=== PATIENT | female | born 1965 | race Caucasian/White ===

== ENCOUNTER 2016-07-15 00:39 | Emergency (ER) | payer OTHER ==
[2016-07-15 00:53] VITALS: TEMP 98.3; BMI 28.3
[2016-07-15 01:08] LABS: BASOPHIL 0.5 % (0-2.0); EOSINOPHIL 1.4 % (0-4.5); MEAN CELL VOLUME 87.8 fl (80-96); MEAN PLT VOLUME 7.3 fl (7.5-11.1); NEUTROPHILS 69.4 % (42.8-82.8); PLATELET COUNT 258 K/MM3 (134-434); RDW 12.7 % (11.6-15.6); WHITE BLOOD COUNT 13.2 K/mm3 (4.0-10.0)
--- NOTE | 2016-07-15 01:27 | PDOC ---
History of Present Illness - General History Source: Patient Exam Limitations: No Limitations - History of Present Illness Initial Comments: 07/15/16 01:35 The patient is a 51 year old female with a pertinent PMH of CAD s/p cardiac stent placement(12/2015). s/p pacemaker (02/2012), MS (05/2011), CHF, HTN, HLD, DM , COPD, RLS, Kidney Stent Placement, Renal Insufficiency, Kidney Stones, Stress Incontinence, Fibromyalgia, Anxiety, Depression, Chronic Low Back, Lumbar Herniated Disc. who presents to the ED today complaining of chest pain, lightheadedness and SOB that began this morning. The patient reports the pain is similar to her previous MS in the past. She notes the pain radiates to her left arm, jaw and head and that the pain began this morning as dull but is now sharp. The patient reports numbness in her left arm and numbness and tingling in her toes. She also reports that she had two syncopal episodes today, the first was witnessed by her son and daughter and the second she was alone. She reports losing consciousness during both episodes for an unknown duration. She is unsure of any head trauma. The patient notes that she is SOB at rest. She also notes her vision being blurry and reports that shes been getting confused a lot recently. She states the last time she ate was anywhere from 3 days to 1 week ago. This is secondary to her anxiety and depression as she states she hasn 't taken her medications recently. She denies diaphoresis. Denies: vomiting, abdominal pain, fever, chills PSHx of: Cardiac Stent, AICD, C-sections, Hemorrhoidectomy, R- Fallopian Tube Removal, endoscopy, colonoscopy. PCP: Dr. Lamar Rodriguez Software Implementation Specialist: Dr. Mia Bell <Sandra Nguyen - Last Filed: 07/15/16 01:47> <Ramila Santamaria - Last Filed: 07/15/16 03:04> - General History Source: Patient <Samuel Cisneros - Last Filed: 07/15/16 04:54> - General Chief Complaint: Chest Pain Stated Complaint: CHEST PAIN Time Seen by Provider: 07/15/16 01:03 Past History <Sandra Nguyen - Last Filed: 07/15/16 01:47> <Ramila Santamaria - Last Filed: 07/15/16 03:04> - Past Medical History Anemia: No Asthma: No Cancer: No Cardiac Disorders: Yes (cardiac stent 2010/pacemaker02/2012, MS) CVA: No COPD: Yes CHF: Yes Dementia: No Diabetes: No GI Disorders: Yes Disorders: Yes (kidney stents, kidney stones, stress incontinence, KIDNEY FAILURE) HTN: Yes Hypercholesterolemia: Yes Liver Disease: No Psychiatric Problems: Yes (anxiety, anorexia, DEPRESSION.) Suicide Attempt (Hx): No Seizures: No Thyroid Disease: No - Surgical History Abdominal Surgery: Yes Appendectomy: No Cardiac Surgery: Yes (cardiac cath, stent, ppm/aicd) Cholecystectomy: No Lung Surgery: No Neurologic Surgery: No Orthopedic Surgery: No - Family Disease History Family Disease History: Heart Disease: Father - Immunization History Td Vaccination: Yes TDAP Vaccination: Yes Immunization Up to Date: (no flu vaccine) - Psycho/Social/Smoking Cessation Hx Anxiety: No Suicidal Ideation: No Smoking Status: No Smoking History: Never smoked Years of Tobacco Use: 10 Have you smoked in the past 12 months: No Number of Cigarettes Smoked Daily: 3 If you are a former smoker, when did you quit?: 11/24/15 Cigars Per Day: 0 Information on smoking cessation initiated: No 'Breaking Loose' booklet given: 12/15/14 Hx Alcohol Use: No Drug/Substance Use Hx: No Substance Use Type: None Hx Substance Use Treatment: No <Samuel Cisneros - Last Filed: 07/15/16 04:54> - Past Medical History Allergies/Adverse Reactions: Allergies Allergy/AdvReac Type Severity Reaction Status Date / Time No Known Allergies Allergy Verified 07/15/16 00:51 Home Medications: Ambulatory Orders Alprazolam [Xanax] 1 mg PO BID 04/15/16 Aspirin [ASA -] 81 mg PO DAILY 04/15/16 Atorvastatin Ca [Lipitor] 40 mg PO HS 04/15/16 Cholecalciferol (Vitamin D3) [Vitamin D -] 400 unit PO DAILY 04/15/16 Escitalopram Oxalate [Lexapro -] 20 mg PO DAILY 04/15/16 Gabapentin 800 mg PO TID 04/15/16 Topiramate 50 mg PO BID 04/15/16 Carvedilol [Coreg -] 3.125 mg PO BID #60 tablet 04/22/16 Pantoprazole Sodium [Protonix -] 40 mg PO BID #60 tablet.ec 04/22/16 Oxycodone HCl/Acetaminophen [Percocet 5-325 mg Tablet] 1 tab PO Q6H 05/21/16 Zolpidem Tartrate [Ambien] 10 mg PO HS 05/21/16 Lisinopril [Prinivil] 2.5 mg PO DAILY@1200 #30 tablet 05/31/16 Spironolactone [Aldactone -] 25 mg PO HS #30 tablet 05/31/16 Review of Systems - Review of Systems Able to Perform ROS?: Yes Comments:: 07/15/16 01:35 CONSTITUTIONAL: +Decreased PO intake. Absent: fever, chills, diaphoresis, generalized weakness, malaise, HEENT: +Jaw pain, head pain, blurry vision. Absent: rhinorrhea, nasal congestion, throat pain, throat swelling, difficulty swallowing, mouth swelling, ear pain, eye pain CARDIOVASCULAR: +Chest pain, lightheadedness, syncope. Absent: palpitations, irregular heart rate, peripheral edema RESPIRATORY: +shortness of breath Absent: cough, dyspnea with exertion, orthopnea, wheezing, stridor, hemoptysis GASTROINTESTINAL: Absent: nausea, vomiting, abdominal pain, abdominal distension, diarrhea, constipation, melena, hematochezia GENITOURINARY: Absent: dysuria, frequency, urgency, hesitancy, hematuria, flank pain, genital pain MUSCULOSKELETAL: +back pain, left arm pain. Absent: joint swelling SKIN: Absent: rash, itching, pallor NEUROLOGIC: +dizziness. numbness and tingling in her toes, numbness in her left arm. Absent : focal weakness, unsteady gait, seizure, mental status changes, bladder or bowel incontinence PSYCHIATRIC: +anxiety, depression. Absent: suicidal or homicidal ideation, hallucinations. <Sandra Nguyen - Last Filed: 07/15/16 01:47> *Physical Exam - Vital Signs Last Vital Signs Temp Pulse Resp BP Pulse Ox 98.3 F 65 20 119/75 100 07/15/16 00:51 07/15/16 00:51 07/15/16 00:51 07/15/16 00:51 07/15/16 00:51 <Sandra Nguyen - Last Filed: 07/15/16 01:47> - Vital Signs Last Vital Signs Temp Pulse Resp BP Pulse Ox 98.3 F 65 20 119/75 100 07/15/16 00:51 07/15/16 00:51 07/15/16 00:51 07/15/16 00:51 07/15/16 00:51 - Physical Exam Comments: 07/15/16 03:04 GENERAL: Well developed, well nourished. Awake and alert. No acute distress. HEENT: Normocephalic, atraumatic. PERRLA, EOMI. No conjunctival pallor. Sclera are non- icteric. Moist mucous membranes. Oropharynx is clear. NECK: Supple. Full ROM. No JVD. Carotid pulses 2+ and symmetric, without bruits. No thyromegaly. No lymphadenopathy. CARDIOVASCULAR: Regular rate and rhythm. No murmurs, rubs, or gallops. Distal pulses are 2+ and symmetric. PULMONARY: No evidence of respiratory distress. Lungs clear to auscultation bilaterally. No wheezing, rales or rhonchi. ABDOMINAL: Soft. Non-tender. Non-distended. No rebound or guarding. No organomegaly. Normoactive bowel sounds. MUSCULOSKELETAL Normal range of motion at all joints. No bony deformities or tenderness. No CVA tenderness. EXTREMITIES: No cyanosis. No clubbing. No edema. No calf tenderness. SKIN: Warm and dry. Normal capillary refill. No rashes. No jaundice. NEUROLOGICAL: Alert, awake, appropriate. Cranial nerves 2-12 intact. Moving all extremities. No focal neurological deficits. PSYCHIATRIC: Cooperative. Good eye contact. Appropriate mood and affect. <Ramila Santamaria - Last Filed: 07/15/16 03:04> - Vital Signs Last Vital Signs Temp Pulse Resp BP Pulse Ox 98.3 F 65 20 119/75 100 07/15/16 00:51 07/15/16 00:51 07/15/16 00:51 07/15/16 00:51 07/15/16 00:51 <Samuel Cisneros - Last Filed: 07/15/16 04:54> Heart Score/ECG Review - ECG Impressions Comment:: 07/15/16 01:46 NSR @ 65 bpm. Anteroseptal infarct, age undetermined. Abnormal ECG <Sandra Nguyen - Last Filed: 07/15/16 01:47> - History History: Moderately suspicious - Electrocardiogram EKG: Non specific repolarization disturbance - Age Age: 45-65 - Risk Factors Risk Factors Heart Score: Yes Hx Hypercholesterolemia, Yes Positive family hx of cardiac disease Based on the list above the patient has:: >/=3 risk factors or Hx atherosclerotic disease - Troponin Troponin: </= normal limit - Score Heart Score - Total: 5 <Samuel Cisneros - Last Filed: 07/15/16 04:54> ED Treatment Course - LABORATORY CBC & Chemistry Diagram: 07/15/16 01:00 07/15/16 01:00 - ADDITIONAL ORDERS Additional order review: 07/15/16 01:00 RBC 4.73 D MCV 87.8 MCHC 33.0 RDW 12.7 MPV 7.3 L Neutrophils % 69.4 D Lymphocytes % 22.5 D Monocytes % 6.2 Eosinophils % 1.4 Basophils % 0.5 <LindenaftabSandra - Last Filed: 07/15/16 01:47> - LABORATORY CBC & Chemistry Diagram: 07/15/16 01:00 07/15/16 01:00 - ADDITIONAL ORDERS Additional order review: Laboratory Results 07/15/16 07/15/16 01:00 01:00 INR 1.18 H Sodium 137 Potassium 3.7 Chloride 104 Carbon Dioxide 21 Anion Gap 12 BUN 12 D Creatinine 0.8 Creat Clearance w eGFR > 60 Random Glucose 182 H D Calcium 8.7 Total Bilirubin 0.3 AST 6 L D ALT 15 D Alkaline Phosphatase 130 H D Creatine Kinase 38 Troponin I < 0.02 Total Protein 7.7 Albumin 4.1 07/15/16 01:00 RBC 4.73 D MCV 87.8 MCHC 33.0 RDW 12.7 MPV 7.3 L Neutrophils % 69.4 D Lymphocytes % 22.5 D Monocytes % 6.2 Eosinophils % 1.4 Basophils % 0.5 - Medications Given in the ED: ED Medications Discontinued Medications Generic Name Dose Route Start Last Admin Trade Name Freq PRN Reason Stop Dose Admin Morphine Sulfate 2 mg 07/15/16 01:29 07/15/16 02:34 Morphine Injection - IVPUSH 07/15/16 01:30 2 mg ONCE ONE Administration Ondansetron HCl 4 mg 07/15/16 01:29 07/15/16 02:34 Zofran Injection IVPUSH 07/15/16 01:30 4 mg ONCE STA Administration <Ramila Santamaria - Last Filed: 07/15/16 03:04> - LABORATORY CBC & Chemistry Diagram: 07/15/16 01:00 07/15/16 01:00 - ADDITIONAL ORDERS Additional order review: 07/15/16 01:00 RBC 4.73 D MCV 87.8 MCHC 33.0 RDW 12.7 MPV 7.3 L Neutrophils % 69.4 D Lymphocytes % 22.5 D Monocytes % 6.2 Eosinophils % 1.4 Basophils % 0.5 <Samuel Cisneros - Last Filed: 07/15/16 04:54> Medical Decision Making - Medical Decision Making 07/15/16 03:07 Dr. Cisneros: The scribe's documentation has been prepared under my direction and personally reviewed by me in its entirery. I confirm that the note above accurately reflects all work, treatment, procedures, and medical decision making performed by me. <Samuel Cisneros - Last Filed: 07/15/16 04:54> *DC/Admit/Observation/Transfer - Attestations Scribe Attestion: 07/15/16 01:47 Documentation prepared by Sandra Nguyen, acting as medical safety director for Samuel Cisneros MD/DO. <Sandra Nguyen - Last Filed: 07/15/16 01:47> <Ramila Santamaria - Last Filed: 07/15/16 03:04> - Discharge Dispostion Admit: No <Samuel Cisneros - Last Filed: 07/15/16 04:54> Diagnosis at time of Disposition: coronary artery disease, Chest pain - Discharge Dispostion Disposition: HOME Condition at time of disposition: Stable - Referrals Referrals: Lamar Rodriguez MD [Primary Care Provider] - - Patient Instructions Printed Discharge Instructions: DI for Chest Pain Additional Instructions: Please follow up with your doctor as soon as possible
[2016-07-15] MEDS ORDERED: ONDANSETRON 4 MG/2 ML VIAL IVPUSH STA (01:29)
[2016-07-15] MEDS ORDERED: morphine CARPU-JECT 2 MG/1 ML DISP.SYRIN IVPUSH ONE (01:29)
[2016-07-15 01:33] LABS: INR 1.18 (0.82-1.09)
[2016-07-15 01:43] LABS: ALBUMIN 4.1 g/dl (3.4-5.0); ANION GAP 12 (8-16); BILIRUBIN,TOTAL 0.3 mg/dL (0.2-1.0); CALCIUM 8.7 mg/dL (8.5-10.1); CO2 21 mmol/L (21-32); CREATININE 0.8 mg/dL (0.55-1.02); GLUCOSE,RANDOM 182 mg/dL (74-106); SGOT/AST 6 U/L (15-37); SGPT/ALT 15 U/L (12-78); TOT PROT 7.7 g/dl (6.4-8.2)
[2016-07-15 01:45] LABS: ALK PHOS 130 U/L (45-117); TROPONIN I < 0.02 ng/ml (0.00-0.05)
[2016-07-15] MEDS ORDERED: morphine CARPU-JECT 2 MG/1 ML DISP.SYRIN ONE (01:53)
[2016-07-15] MEDS ORDERED: ONDANSETRON 4 MG/2 ML VIAL ONE (01:54)
[2016-07-15] MEDS ORDERED: ALPRAZolam 0.25 MG TABLET PO ONE (03:04)
[2016-07-15] MEDS ORDERED: ALPRAZolam 0.25 MG TABLET ONE (03:12)
[2016-07-15 04:49] VITALS: BP 118/87; PULSE 68
--- NOTE | 2016-07-15 16:35 | EKG ---
Test Reason : Blood Pressure : / mmHG Vent. Rate : 065 BPM Atrial Rate : 065 BPM P-R Int : 196 ms QRS Dur : 086 ms QT Int : 370 ms P-R-T Axes : 032 008 060 degrees QTc Int : 384 ms NORMAL SINUS RHYTHM ANTEROSEPTAL INFARCT (CITED ON OR BEFORE 16-OCT-2014) ABNORMAL ECG WHEN COMPARED WITH ECG OF 21-MAY-2016 08:04, NO SIGNIFICANT CHANGE WAS FOUND Confirmed by NICHOL CARNEY, MOLLY ([id number]) on 07/15/2016 4:34:46 PM Referred By: Confirmed By:MOLLY GANDARA MD
== END 2016-07-15 04:57 | disposition home or self-care (01) ==
LOC: JER 00:39 → UNDOADMIN 03:25 → JERBED 03:25 → JER 04:57
PROC: 3E033NZ Introduction of Analgesics, Hypnotics, Sedatives into Peripheral Vein, Percutaneous Approach (ICD-10-PCS; principal; 2016-07-15)
PROC: 3E033GC Introduction of Other Therapeutic Substance into Peripheral Vein, Percutaneous Approach (ICD-10-PCS; 2016-07-15)
DX: I25.10 Atherosclerotic heart disease of native coronary artery without angina pectoris (principal); I50.9 Heart failure, unspecified; I25.2 Old myocardial infarction; I10 Essential (primary) hypertension; Z95.5 Presence of coronary angioplasty implant and graft; E78.00 Pure hypercholesterolemia, unspecified; F41.8 Other specified anxiety disorders; Z95.810 Presence of automatic (implantable) cardiac defibrillator
CPT/HCPCS: 36415; 71010-TC; 80053; 82550; 84484; 85025; 85610; 93005; 93010; 99283-25

== ENCOUNTER 2016-12-13 16:49 | Observation (INO) | payer OTHER ==
--- NOTE | 2016-12-13 16:56 | PDOC ---
Rapid Medical Evaluation Chief Complaint: Chest Pain Time Seen by Provider: 12/13/16 16:55 Medical Evaluation: Allergies Allergy/AdvReac Type Severity Reaction Status Date / Time No Known Allergies Allergy Verified 12/13/16 16:55 I have performed a brief in-person evaluation of this patient. The patient presents with a chief complaint of:chest pain, shortness of breath, wheezing Pertinent physical exam findings:anxious I have ordered the following:EKG The patient will proceed to the ED for further evaluation. 12/13/16 16:55
[2016-12-13 16:58] VITALS: BMI 29.2
[2016-12-13] MEDS ORDERED: ASPIRIN 81 MG CHEWABLE TABLETS PO ONE (17:58)
[2016-12-13 18:05] LABS: ALBUMIN 3.9 g/dl (3.4-5.0); ANION GAP 14 (8-16); BILIRUBIN,TOTAL 0.6 mg/dL (0.2-1.0); CALCIUM 9.1 mg/dL (8.5-10.1); CO2 23 mmol/L (21-32); CREATININE 0.8 mg/dL (0.55-1.02); GLUCOSE,RANDOM 185 mg/dL (74-106); SGOT/AST 16 U/L (15-37); SGPT/ALT 25 U/L (12-78)
[2016-12-13] MEDS ORDERED: ASPIRIN 81 MG CHEWABLE TABLETS ONE (18:06)
[2016-12-13 18:07] LABS: ALK PHOS 129 U/L (45-117); TROPONIN I < 0.02 ng/ml (0.00-0.05)
--- NOTE | 2016-12-13 18:11 | PDOC ---
History of Present Illness <SheltonAgata - Last Filed: 12/13/16 18:32> <Kenzie Elizondo - Last Filed: 12/13/16 20:29> - General Chief Complaint: Chest Pain Stated Complaint: CHEST PAIN Time Seen by Provider: 12/13/16 16:55 - History of Present Illness Initial Comments: 12/13/16 18:32 Patient is a 51 year old female with significant medical hx of NIDDM, CAD s/p stent (12/2015), CT (05/2011), CHF, HTN, HLD, COPD, s/p pacemaker (2011), nephrolithiasis, anxiety/depression, and chronic lower back pain who is presenting to the ED with shortness of breath and chest pain since 3 AM last night. The patient complains of constant, substernal chest pain with radiation to her upper back and left shoulder. Her pain is rated 8/10 in severity and characterized as a tightness and pulling. She reports onset of shortness of breath and wheezing with her chest pain and states that it is difficult for her to catch a full breath. The patient also endorses lower extremity cramping, nausea, left arm numbness with pins and needles, and pain to her upper back. Patient takes 81 mg of aspirin every day and she confirms taking it today. Denies nausea, vomiting, diarrhea, cough, fever, or chills. Patient had an echocardiogram and stress test in 2015 which demonstrated mildly reduced LV function and mild ischemia. Other PMH: RLS, renal insufficiency, nephrolithiasis, stress incontinence, fibromyalgia, lumbar herniated disc Application Integration Specialist: Mia eBll MD PCP: Sandra Barry MD Surgical Hx of: Cardiac stent, kidney stent, pacemaker AICD, c-sections, hemorrhoidectomy, R- fallopian tube removal, endoscopy, colonoscopy. Social Hx: Tobacco smoker for 30 years, quit 3 years ago, 5-10 cigarettes per day. Denies alcohol use. Denies illicit drug use. Allergies: NKDA (SheltonAgata) Past History <SheltonAgata - Last Filed: 12/13/16 18:32> - Past Medical History Anemia: No Asthma: No Cancer: No Cardiac Disorders: Yes (cardiac stent 2010/pacemaker02/2012, CT) CVA: No COPD: Yes CHF: Yes Dementia: No Diabetes: No GI Disorders: Yes Disorders: Yes (kidney stents, kidney stones, stress incontinence, KIDNEY FAILURE) HTN: Yes Hypercholesterolemia: Yes Liver Disease: No Psychiatric Problems: Yes (anxiety, anorexia, DEPRESSION.) Suicide Attempt (Hx): No Seizures: No Thyroid Disease: No Other medical history: sleep apnea - Surgical History Abdominal Surgery: Yes Appendectomy: No Cardiac Surgery: Yes (cardiac cath, stent, ppm/aicd) Cholecystectomy: No Lung Surgery: No Neurologic Surgery: No Orthopedic Surgery: No - Family Disease History Family Disease History: Heart Disease: Father - Immunization History Td Vaccination: Yes TDAP Vaccination: Yes Immunization Up to Date: No (no flu vaccine) - Psycho/Social/Smoking Cessation Hx Anxiety: No Suicidal Ideation: No Smoking Status: No Smoking History: Never smoked Years of Tobacco Use: 10 Have you smoked in the past 12 months: No Number of Cigarettes Smoked Daily: 3 If you are a former smoker, when did you quit?: 11/24/15 Cigars Per Day: 0 Information on smoking cessation initiated: No 'Breaking Loose' booklet given: 12/15/14 Hx Alcohol Use: No Drug/Substance Use Hx: No Substance Use Type: None Hx Substance Use Treatment: No <Kenzie Elizondo - Last Filed: 12/13/16 20:29> - Past Medical History Allergies/Adverse Reactions: Allergies Allergy/AdvReac Type Severity Reaction Status Date / Time No Known Allergies Allergy Verified 12/13/16 16:55 Home Medications: Ambulatory Orders Alprazolam [Xanax] 1 mg PO BID 04/15/16 Aspirin [ASA -] 81 mg PO DAILY 04/15/16 Atorvastatin Ca [Lipitor] 40 mg PO HS 04/15/16 Cholecalciferol (Vitamin D3) [Vitamin D -] 400 unit PO DAILY 04/15/16 Escitalopram Oxalate [Lexapro -] 20 mg PO DAILY 04/15/16 Gabapentin 800 mg PO TID 04/15/16 Topiramate 50 mg PO BID 04/15/16 Carvedilol [Coreg -] 3.125 mg PO BID #60 tablet 04/22/16 Pantoprazole Sodium [Protonix -] 40 mg PO BID #60 tablet.ec 04/22/16 Oxycodone HCl/Acetaminophen [Percocet 5-325 mg Tablet] 1 tab PO Q6H 05/21/16 Zolpidem Tartrate [Ambien] 10 mg PO HS 05/21/16 Lisinopril [Prinivil] 2.5 mg PO DAILY@1200 #30 tablet 05/31/16 Spironolactone [Aldactone -] 25 mg PO HS #30 tablet 05/31/16 Cardiac Specific PMH - Complaint Specific PMHX Pacemaker: Yes <Kenzie Elizondo - Last Filed: 12/13/16 20:29> Review of Systems <Agata Peoples - Last Filed: 12/13/16 18:32> <Kenzie Elizondo - Last Filed: 12/13/16 20:29> - Review of Systems Comments:: 12/13/16 18:33 CONSTITUTIONAL: Absent: fever, chills, diaphoresis, generalized weakness, malaise, loss of appetite HEENT: Absent: rhinorrhea, nasal congestion, throat pain, throat swelling, difficulty swallowing, mouth swelling, ear pain, eye pain, visual changes CARDIOVASCULAR: Present: chest pain Absent: syncope, palpitations, irregular heart rate, lightheadedness, peripheral edema RESPIRATORY: Present: shortness of breath, wheezing Absent: cough, dyspnea with exertion, orthopnea, stridor, hemoptysis GASTROINTESTINAL: Present: nausea Absent: abdominal pain, abdominal distension, vomiting, diarrhea, constipation, melena, hematochezia GENITOURINARY: Absent: dysuria, frequency, urgency, hesitancy, hematuria, flank pain, genital pain MUSCULOSKELETAL: Present: lower extremity cramping, upper back pain Absent: myalgia, arthralgia, joint swelling SKIN: Absent: rash, itching, pallor HEMATOLOGIC/IMMUNOLOGIC: Absent: easy bleeding, easy bruising, lymphadenopathy, frequent infections ENDOCRINE: Absent: unexplained weight gain, unexplained weight loss, heat intolerance, cold intolerance NEUROLOGIC: Present: numbness/tingling left arm Absent: headache, focal weakness, dizziness, unsteady gait, seizure, mental status changes, bladder or bowel incontinence. PSYCHIATRIC: Absent: anxiety, depression, suicidal or homicidal ideation, hallucinations ( Agata Peoples) *Physical Exam <Agata Peoples - Last Filed: 12/13/16 18:32> <Kenzie Elizondo - Last Filed: 12/13/16 20:29> - Vital Signs Last Vital Signs Temp Pulse Resp BP Pulse Ox 98.0 F 77 18 149/86 100 12/13/16 16:55 12/13/16 16:55 12/13/16 18:11 12/13/16 16:55 12/13/16 16:55 - Physical Exam Comments: 12/13/16 18:36 GENERAL: Well developed, well nourished. Awake and alert. Moderate distress. HEENT: Normocephalic, atraumatic. PERRLA, EOMI. No conjunctival pallor. Sclera are non- icteric. Moist mucous membranes. Oropharynx is clear. NECK: Supple. Full ROM. No JVD. Carotid pulses 2+ and symmetric, without bruits. No thyromegaly. No lymphadenopathy. CARDIOVASCULAR: Regular rate and rhythm. No murmurs, rubs, or gallops. Distal pulses are 2+ and symmetric. PULMONARY: No evidence of respiratory distress. Mild tachypnea. Mild expiratory wheezes. No rales or rhonchi. ABDOMINAL: Soft. Non-tender. Non-distended. No rebound or guarding. No organomegaly. Normoactive bowel sounds. MUSCULOSKELETAL: Normal range of motion at all joints. No bony deformities or tenderness. No CVA tenderness. EXTREMITIES: No cyanosis. No clubbing. No edema. No calf tenderness. SKIN: Warm and dry. Normal capillary refill. No rashes. No jaundice. NEUROLOGICAL: Alert, awake, appropriate. Cranial nerves 2-12 intact. Normal speech. Gait is normal without ataxia. PSYCHIATRIC: Anxious. Cooperative. Good eye contact. (Agata Peoples) Heart Score/ECG Review <Agata Peoples - Last Filed: 12/13/16 18:32> <Kenzie Elizondo - Last Filed: 12/13/16 20:29> #1 12/13/16 18:38 Poor data quality, interpretation may be adversely affected Normal sinus rhythm at 76 bpm Possible Left atrial enlargement Low voltage QRS Cannot rule out Anteroseptal infarct, age undetermined Abnormal ECG (Agata Peoples) ED Treatment Course - LABORATORY CBC & Chemistry Diagram: 12/13/16 17:17 12/13/16 17:17 <Agata Peoples - Last Filed: 12/13/16 18:32> - LABORATORY CBC & Chemistry Diagram: 12/13/16 17:17 12/13/16 17:17 <Kenzie Elizondo - Last Filed: 12/13/16 20:29> - ADDITIONAL ORDERS Additional order review: Laboratory Results 12/13/16 12/13/16 12/13/16 18:11 18:11 17:17 INR 1.08 Sodium 139 Potassium 3.8 Chloride 102 Carbon Dioxide 23 Anion Gap 14 BUN 7 D Creatinine 0.8 Creat Clearance w eGFR > 60 Random Glucose 185 H Calcium 9.1 Total Bilirubin 0.6 D AST 16 D ALT 25 D Alkaline Phosphatase 129 H Creatine Kinase 63 Troponin I < 0.02 B-Natriuretic Peptide 406.85 H Total Protein 7.0 Albumin 3.9 12/13/16 17:17 RBC 4.03 MCV 93.3 MCHC 34.1 RDW 14.8 D MPV 7.9 Neutrophils % 66.2 Lymphocytes % 26.7 Monocytes % 4.6 Eosinophils % 2.2 Basophils % 0.3 - RADIOLOGY Radiology Studies Ordered: Category Date Time Status CHEST X-RAY PORTABLE* [RAD] Stat Radiology 12/13/16 17:17 Completed - Medications Given in the ED: ED Medications Discontinued Medications Generic Name Dose Route Start Last Admin Trade Name Freq PRN Reason Stop Dose Admin Alprazolam 0.25 mg 12/13/16 19:10 12/13/16 19:19 Xanax - PO 12/13/16 19:11 0.25 mg ONCE ONE Administration Aspirin 162 mg 12/13/16 17:58 12/13/16 18:05 Asa - PO 12/13/16 17:59 162 mg ONCE ONE Administration Oxycodone/Acetaminophen 1 combo 12/13/16 19:10 12/13/16 19:19 Percocet 5/325 - PO 12/13/16 19:11 1 combo ONCE ONE Administration *DC/Admit/Observation/Transfer <Agata Peoples - Last Filed: 12/13/16 18:32> - Discharge Dispostion Admit: Yes <Kenzie Elizondo - Last Filed: 12/13/16 20:29> Diagnosis at time of Disposition: COPD (chronic obstructive pulmonary disease) Qualifiers: COPD type: unspecified COPD Qualified Code(s): J44.9 - Chronic obstructive pulmonary disease, unspecified Chest pain Qualifiers: Chest pain type: precordial pain Qualified Code(s): R07.2 - Precordial pain - Referrals Referrals: Sandra Barry MD [Primary Care Provider] - - Attestations Scribe Attestion: 12/13/16 18:37 Documentation prepared by Agata Peoples, acting as durable medical equipment repairer for Kenzie Elizondo MD. (Agata Peoples)
[2016-12-13] MEDS ORDERED: ALBUTEROL SO4 2.5/IPRATROPIUM 0.5 INH SOL 3 ML VIAL.NEB. NEB ONE (18:23)
[2016-12-13 18:49] LABS: INR 1.08 (0.82-1.09); PROTHROMBIN TIME (PATIENT) 11.9 SEC (9.98-11.88)
[2016-12-13 18:53] LABS: BASOPHIL 0.3 % (0-2.0); EOSINOPHIL 2.2 % (0-4.5); MCH 31.8 pg (25.7-33.7); MCHC 34.1 g/dl (32.0-36.0); MEAN CELL VOLUME 93.3 fl (80-96); MEAN PLT VOLUME 7.9 fl (7.5-11.1); NEUTROPHILS 66.2 % (42.8-82.8); PLATELET COUNT 246 K/MM3 (134-434); RDW 14.8 % (11.6-15.6); WHITE BLOOD COUNT 8.3 K/mm3 (4.0-10.0)
[2016-12-13] MEDS ORDERED: OXYCODONE/APAP 5/325MG COMBO TABLET PO ONE (19:10)
[2016-12-13] MEDS ORDERED: ALPRAZolam 0.25 MG TABLET PO ONE (19:10)
[2016-12-13] MEDS ORDERED: ALPRAZolam 0.25 MG TABLET ONE (19:13)
[2016-12-13] MEDS ORDERED: OXYCODONE/APAP 5/325MG COMBO TABLET ONE (19:13)
[2016-12-13] MEDS ORDERED: PATIENT'S OWN MEDICATION (NON-FORMULARY) (Zolpidem Tartrate [Ambien] 10 MG) PO PRN (20:19)
[2016-12-13] MEDS ORDERED: ONDANSETRON 4 MG/2 ML VIAL IVPB PRN (20:20)
[2016-12-13] MEDS ORDERED: ZOLPIDEM TARTRATE 5 MG TABLET PO PRN (20:28)
[2016-12-13] MEDS ORDERED: OXYCODONE/APAP 5/325MG COMBO TABLET PO SCH (20:30)
[2016-12-13] MEDS ORDERED: PATIENT'S OWN MEDICATION (NON-FORMULARY) (Gabapentin [Gabapentin] 800 MG) PO SCH (22:00)
[2016-12-13] MEDS ORDERED: SPIRONOLACTONE 25 MG TABLET (FP) PO SCH (22:00)
[2016-12-13] MEDS ORDERED: ATORVASTATIN CA 40 MG TABLET (FP) PO SCH (22:00)
[2016-12-13] MEDS ORDERED: PATIENT'S OWN MEDICATION (NON-FORMULARY) (Topiramate [Topiramate] 50 MG) PO SCH (22:00)
[2016-12-13] MEDS ORDERED: ALPRAZolam 2 MG TABLET ONE (22:03)
[2016-12-13] MEDS ORDERED: ATORVASTATIN CA 40 MG TABLET (FP) ONE (22:04)
[2016-12-13] MEDS ORDERED: DOCUSATE SODIUM 100 MG CAPSULE (FP) PO ONE (22:04)
[2016-12-13] MEDS ORDERED: PANTOPRAZOLE 40 MG TABLET (FP) ONE (22:04)
[2016-12-13] MEDS ORDERED: CARVEDILOL 3.125 MG TABLET (FP) ONE (22:04)
[2016-12-13] MEDS ORDERED: GABAPENTIN 100 MG CAPSULE (FP) ONE (22:04)
[2016-12-13] MEDS ORDERED: TOPIRAMATE 25 MG TABLET (FP) ONE (22:05)
[2016-12-13] MEDS ORDERED: SPIRONOLACTONE 25 MG TABLET (FP) ONE (22:05)
[2016-12-13] MEDS: ALPRAZolam 2 MG TABLET PO SCH (22:12)
[2016-12-13] MEDS: DOCUSATE SODIUM 100 MG CAPSULE (FP) PO SCH (22:12)
[2016-12-13] MEDS: CARVEDILOL 3.125 MG TABLET (FP) PO SCH (22:12)
[2016-12-13] MEDS: TOPIRAMATE 25 MG TABLET (FP) PO SCH (22:12)
[2016-12-13] MEDS: PANTOPRAZOLE 40 MG TABLET (FP) PO SCH (22:12)
[2016-12-13] MEDS: GABAPENTIN 400 MG CAPSULE (FP) PO SCH (22:12)
[2016-12-13] MEDS ORDERED: ZOLPIDEM TARTRATE 5 MG TABLET ONE (22:17)
[2016-12-14 00:29] LABS: TROPONIN I < 0.02 ng/ml (0.00-0.05)
[2016-12-14] MEDS: oxyCODONE HCL 5 MG TABLET PO PRN ×2 (00:47→06:05)
[2016-12-14] MEDS: ACETAMINOPHEN 325 MG TABLET (FP) PO PRN ×2 (00:48→06:22)
[2016-12-14] MEDS: GABAPENTIN 400 MG CAPSULE (FP) PO SCH (06:05)
[2016-12-14 07:48] LABS: BASOPHIL 0.4 % (0-2.0); MCH 32.4 pg (25.7-33.7); MCHC 34.5 g/dl (32.0-36.0); MEAN CELL VOLUME 93.8 fl (80-96); MEAN PLT VOLUME 7.3 fl (7.5-11.1); NEUTROPHILS 63.1 % (42.8-82.8); PLATELET COUNT 207 K/MM3 (134-434); RDW 14.6 % (11.6-15.6); WHITE BLOOD COUNT 7.4 K/mm3 (4.0-10.0)
[2016-12-14 08:05] LABS: CALCIUM 8.5 mg/dL (8.5-10.1); COCKROFT - GAULT 100.9715; CREATININE 0.7 mg/dL (0.55-1.02); MAGNESIUM 1.8 mg/dL (1.8-2.4); PHOSPHOROUS 4.1 mg/dL (2.5-4.9)
[2016-12-14 08:08] VITALS: BP 119/76; PULSE 67; TEMP 98.1
[2016-12-14 08:11] LABS: TROPONIN I < 0.02 ng/ml (0.00-0.05)
[2016-12-14] MEDS: ALPRAZolam 2 MG TABLET PO SCH (09:36)
[2016-12-14] MEDS: CARVEDILOL 3.125 MG TABLET (FP) PO SCH (09:37)
[2016-12-14] MEDS: PANTOPRAZOLE 40 MG TABLET (FP) PO SCH (09:37)
[2016-12-14] MEDS: DOCUSATE SODIUM 100 MG CAPSULE (FP) PO SCH (09:37)
[2016-12-14] MEDS ORDERED: PT OWN MED DRAWER 7, Y5N ONE (09:39)
[2016-12-14] MEDS: TOPIRAMATE 25 MG TABLET (FP) PO SCH (09:40)
[2016-12-14] MEDS ORDERED: ESCITALOPRAM OXALATE 20 MG TABLET (FP) PO SCH (10:00)
[2016-12-14] MEDS ORDERED: POLYETHYLENE GLYCOL 3350 119 GM BTL PO SCH (10:00)
[2016-12-14] MEDS ORDERED: ASPIRIN 81 MG CHEWABLE TABLETS PO SCH (10:00)
[2016-12-14] MEDS ORDERED: CHOLECALCIFEROL (VITAMIN D3) 400 UNIT TABLET (FP) PO SCH (10:00)
--- NOTE | 2016-12-14 10:28 | CON.CARD ---
Consult Consult Specialty:: Cardiology Referred by:: Dr. Stanton Reason for Consultation:: Cardiac evaluation - History of Present Illness Chief Complaint: Chest pain History of Present Illness: Patient is a 51 year old female well known to our service (sees Dr. Mia Bell in the office) with underlying history of CAD, [place], S/P PCI/LEVI to LAD in 2010, ischemic cardiomyopathy S/P ICD in 2011, patent stent demonstrated by cath in 2016, HTN, hypercholesterolemia, COPD and OSAS. She presents with chest pain in the left sternum and shoulder. She also complains of shortness of breath and dizziness. She is also wheezing and complains that it was a lot worse. Of note, she states that she has been vaping in order to stop smoking. She denies nausea, vomiting, diarrhea, but has diffuse abdominal discomfort on palpation (he has history of this). She denies fever or chills. She denies palpitations. She complains of intermittent headaches. Cardiology consultation was called for further evaluation. - History Source History Provided By: Patient, Medical Record Limitations to Obtaining History: No Limitations - Past Medical History Cardio/Vascular: Yes: CAD, CHF, HTN, Hyperlipdemia, [place] Pulmonary: Yes: COPD (CPAP at home) Gastrointestinal: Yes: Hemorrhoids Renal/: Yes: Renal Inusuff (past episode of NEYMAR) Psych: Yes: Other (body dysmorphic disorder) Musculoskeletal: Yes: Chronic low back pain Rheumatology: Yes: Fibromyalgia - Past Surgical History Past Surgical History: Yes: AICD, , Stent - Alcohol/Substance Use Hx Alcohol Use: No History of Substance Use: reports: None - Smoking History Smoking history: Former smoker Have you smoked in the past 12 months: No Aproximately how many cigarettes per day: 3 If you are a former smoker, when did you quit?: 2013 - Social History Usual Living Arrangement: With Parent (boyfriend) ADL: Independent History of Recent Travel: No Home Medications - Allergies Allergies/Adverse Reactions: Allergies Allergy/AdvReac Type Severity Reaction Status Date / Time No Known Allergies Allergy Verified 12/13/16 16:55 - Home Medications Home Medications: Ambulatory Orders Alprazolam [Xanax] 1 mg PO BID 04/15/16 Aspirin [ASA -] 81 mg PO DAILY 04/15/16 Atorvastatin Ca [Lipitor] 40 mg PO HS 04/15/16 Cholecalciferol (Vitamin D3) [Vitamin D -] 400 unit PO DAILY 04/15/16 Escitalopram Oxalate [Lexapro -] 20 mg PO DAILY 04/15/16 Gabapentin 800 mg PO TID 04/15/16 Topiramate 50 mg PO BID 04/15/16 Carvedilol [Coreg -] 3.125 mg PO BID #60 tablet 04/22/16 Pantoprazole Sodium [Protonix -] 40 mg PO BID #60 tablet.ec 04/22/16 Oxycodone HCl/Acetaminophen [Percocet 5-325 mg Tablet] 1 tab PO Q6H 05/21/16 Zolpidem Tartrate [Ambien] 10 mg PO HS 05/21/16 Lisinopril [Prinivil] 2.5 mg PO DAILY@1200 #30 tablet 05/31/16 Spironolactone [Aldactone -] 25 mg PO HS #30 tablet 05/31/16 Family Disease History - Family Disease History Family Disease History: Heart Disease: Grandparent (paternal grandfather of heart at young age), Father (MA at age 63 ), Mother (alive) Review of Systems - Review of Systems Constitutional: denies: Chills, Fever Cardiovascular: reports: Chest Pain, Shortness of Breath. denies: Palpitations Respiratory: reports: Cough, SOB, Wheezing. denies: Hemoptysis, Orthopnea, PND Gastrointestinal: reports: Abdominal Pain, Constipation. denies: Diarrhea, Melena, Nausea, Rectal Bleeding, Vomiting Genitourinary: reports: Frequency Neurological: reports: Dizziness, Headache (Intermittent), Weakness. denies: Confusion, Numbness, Seizure, Syncope, Unsteady Gait Vital Signs: Vital Signs Temperature 98.1 F 12/14/16 08:08 Pulse Rate 67 12/14/16 08:08 Respiratory Rate 20 12/14/16 08:08 Blood Pressure 119/76 12/14/16 08:08 O2 Sat by Pulse Oximetry (%) 100 12/14/16 04:18 HENT: Yes: Atraumatic Neck: Yes: Supple Respiratory: Yes: Diminished, Wheezes Gastrointestinal: Yes: Normal Bowel Sounds, Soft, Tenderness (DIffuse with palpation) Cardiovascular: Yes: Regular Rate and Rhythm JVD: No Carotid Bruit: No PMI: Non-Displaced Heart Sounds: Yes: S1, S2 Edema: No - Other Data Labs, Other Data: CBC, BMP 12/14/16 05:38 12/14/16 05:38 INR, PTT INR 1.08 (0.82-1.09) 12/13/16 18:11 Troponin, BNP 12/14/16 12/14/16 00:01 05:38 Troponin I < 0.02 < 0.02 Laboratory Results - last 24 hr 12/13/16 12/13/16 12/13/16 17:17 17:17 18:11 WBC 8.3 D RBC 4.03 Hgb 12.8 Hct 37.6 MCV 93.3 MCHC 34.1 RDW 14.8 D Plt Count 246 MPV 7.9 Neutrophils % 66.2 Lymphocytes % 26.7 Monocytes % 4.6 Eosinophils % 2.2 Basophils % 0.3 INR Sodium 139 Potassium 3.8 Chloride 102 Carbon Dioxide 23 Anion Gap 14 BUN 7 D Creatinine 0.8 Creat Clearance w eGFR > 60 Random Glucose 185 H Calcium 9.1 Phosphorus Magnesium Total Bilirubin 0.6 D AST 16 D ALT 25 D Alkaline Phosphatase 129 H Creatine Kinase 63 Troponin I < 0.02 B-Natriuretic Peptide 406.85 H Total Protein 7.0 Albumin 3.9 12/13/16 12/14/16 12/14/16 18:11 00:01 05:38 WBC 7.4 RBC 3.92 Hgb 12.7 Hct 36.7 MCV 93.8 MCHC 34.5 RDW 14.6 Plt Count 207 MPV 7.3 L Neutrophils % 63.1 Lymphocytes % 28.3 Monocytes % 5.2 Eosinophils % 3.0 Basophils % 0.4 INR 1.08 Sodium Potassium Chloride Carbon Dioxide Anion Gap BUN Creatinine Creat Clearance w eGFR Random Glucose Calcium Phosphorus Magnesium Total Bilirubin AST ALT Alkaline Phosphatase Creatine Kinase 60 Troponin I < 0.02 B-Natriuretic Peptide Total Protein Albumin 12/14/16 12/14/16 05:38 05:38 WBC RBC Hgb Hct MCV MCHC RDW Plt Count MPV Neutrophils % Lymphocytes % Monocytes % Eosinophils % Basophils % INR Sodium 143 Potassium 3.4 L Chloride 103 Carbon Dioxide 29 D Anion Gap 11 BUN 9 D Creatinine 0.7 Creat Clearance w eGFR Random Glucose 168 H Calcium 8.5 Phosphorus 4.1 Magnesium 1.8 Total Bilirubin AST ALT Alkaline Phosphatase Creatine Kinase 36 Troponin I < 0.02 B-Natriuretic Peptide Total Protein Albumin Normal sinus rhythm with poor R progression Echo: Report Reviewed (Mildly reduced LVEF, moderate MR, mild TR (11/2015)) Imaging - Results Chest X-ray: Report Reviewed (Unremarkable) EKG: Report Reviewed Problem List - Problems (1) CAD (coronary artery disease) Code(s): I25.10 - ATHSCL HEART DISEASE OF [place] CORONARY ARTERY W/O ANG PCTRS Qualifiers: Coronary Disease-Associated Artery/Lesion type: [place] artery [place] vs. transplanted heart: [place] heart Associated angina: without angina Qualified Code(s): I25.10 - Atherosclerotic heart disease of [place] coronary artery without angina pectoris (2) CHF (congestive heart failure), NYHA class I Code(s): I50.9 - HEART FAILURE, UNSPECIFIED Qualifiers: Congestive heart failure type: systolic Congestive heart failure chronicity: chronic Qualified Code(s): I50.22 - Chronic systolic ( congestive) heart failure (3) COPD (chronic obstructive pulmonary disease) Code(s): J44.9 - CHRONIC OBSTRUCTIVE PULMONARY DISEASE, UNSPECIFIED Qualifiers : COPD type: unspecified COPD Qualified Code(s): J44.9 - Chronic obstructive pulmonary disease, unspecified (4) Chest pain Code(s): R07.9 - CHEST PAIN, UNSPECIFIED Qualifiers: Chest pain type: precordial pain Qualified Code(s): R07.2 - Precordial pain (5) Diabetes mellitus Code(s): E11.9 - TYPE 2 DIABETES MELLITUS WITHOUT COMPLICATIONS Qualifiers: Diabetes mellitus type: type 2 Diabetes mellitus complication status: without complication (6) Dizziness Code(s): R42 - DIZZINESS AND GIDDINESS (7) Shortness of breath Code(s): R06.02 - SHORTNESS OF BREATH (8) Chronic left ventricular systolic dysfunction Code(s): I51.9 - HEART DISEASE, UNSPECIFIED (9) Depression Code(s): F32.9 - MAJOR DEPRESSIVE DISORDER, SINGLE EPISODE, UNSPECIFIED (10) Single implantable cardioverter-defibrillator (ICD) in situ Code(s): Z95.810 - PRESENCE OF AUTOMATIC (IMPLANTABLE) CARDIAC DEFIBRILLATOR (11) Status post insertion of drug-eluting stent into left anterior descending artery for coronary artery disease Code(s): Z98.61 - CORONARY ANGIOPLASTY STATUS (12) Status post myocardial infarction of anterior wall Code(s): I25.2 - OLD MYOCARDIAL INFARCTION (13) Anemia Code(s): D64.9 - ANEMIA, UNSPECIFIED (14) Hyperlipidemia Code(s): E78.5 - HYPERLIPIDEMIA, UNSPECIFIED Qualifiers: Hyperlipidemia type: pure hypercholesterolemia (15) Hypertension Code(s): I10 - ESSENTIAL (PRIMARY) HYPERTENSION Qualifiers: Hypertension type: essential hypertension Qualified Code(s): I10 - Essential (primary) hypertension Assessment/Plan 1. Clinical presentation appears to be possible reactive airway disease/ bronchitis with continued vaping 2. CAD S/P PCI/stent, angina pectoris 3. Ischemic cardiomyopathy with history of failure S/P ICD 4. HTN/HCVD 5. Hypercholesterolemia 6. OSAS 7. History of neurocardiogenic syncope 8. Depression/anxiety/eating disorder PLAN: 1. Continue Carvedilol, Lisinopril and Atorvastatin 2. Continue ASA 3. Continue Spironolactone 4. Counseled to stop vaping. Alternative method of smoking cessation is to be implemented as outpatient 5. Consider bronchodilators 6. Serial cardiac enzymes. Further plans are to follow Marcus Kemp MD
--- NOTE | 2016-12-14 11:36 | HP ---
Admitting History and Physical - Primary Care Physician PCP: Sandra Barry - Admission Chief Complaint: I'm wheezing with chest pain History of Present Illness: Ms Edouard is a 51 year old female who comes in with wheezing and chest pain. She says it all began around 3:30 early Tuesday morning. She says that the pain is sharp and retrosternal. It is constant in nature and does not radiate. She had some nausea without vomiting associated with it. She denies diaphoresis, lightheadedness, syncope, or palpitations. She also says she has wheezing with a productive cough. She says the cough is productive of green sputum. She also has chronic back and leg pain. She received both oxycodone and xanax this morning and is very lethargic but arousable and able to answer questions. History Source: Patient Limitations to Obtaining History: No Limitations - Past Medical History Cardiovascular: Yes: CAD, CHF, HTN, Hyperlipdemia, [place] Pulmonary: Yes: COPD (CPAP at home) Gastrointestinal: Yes: Hemorrhoids Renal/: Yes: Renal Inusuff (past episode of NEYMAR) Psych: Yes: Other (body dysmorphic disorder) Musculoskeletal: Yes: Chronic low back pain Rheumatology: Yes: Fibromyalgia - Past Surgical History Past Surgical History: Yes: AICD, , Stent - Smoking History Smoking history: Former smoker Have you smoked in the past 12 months: No Aproximately how many cigarettes per day: 3 If you are a former smoker, when did you quit?: 2013 - Alcohol/Substance Use Hx Alcohol Use: No History of Substance Use: reports: None - Social History ADL: Independent History of Recent Travel: No Home Medications - Allergies Allergies/Adverse Reactions: Allergies Allergy/AdvReac Type Severity Reaction Status Date / Time No Known Allergies Allergy Verified 12/13/16 16:55 - Home Medications Home Medications: Ambulatory Orders Alprazolam [Xanax] 1 mg PO BID 04/15/16 Aspirin [ASA -] 81 mg PO DAILY 04/15/16 Atorvastatin Ca [Lipitor] 40 mg PO HS 04/15/16 Cholecalciferol (Vitamin D3) [Vitamin D -] 400 unit PO DAILY 04/15/16 Escitalopram Oxalate [Lexapro -] 20 mg PO DAILY 04/15/16 Gabapentin 800 mg PO TID 04/15/16 Topiramate 50 mg PO BID 04/15/16 Carvedilol [Coreg -] 3.125 mg PO BID #60 tablet 04/22/16 Pantoprazole Sodium [Protonix -] 40 mg PO BID #60 tablet.ec 04/22/16 Oxycodone HCl/Acetaminophen [Percocet 5-325 mg Tablet] 1 tab PO Q6H 05/21/16 Zolpidem Tartrate [Ambien] 10 mg PO HS 05/21/16 Lisinopril [Prinivil] 2.5 mg PO DAILY@1200 #30 tablet 05/31/16 Spironolactone [Aldactone -] 25 mg PO HS #30 tablet 05/31/16 Family Disease History - Family Disease History Family Disease History: Heart Disease: Grandparent (paternal grandfather of heart at young age), Father ([place] at age 63 ), Mother (alive) Review of Systems Findings/Remarks: Full review of systems obtained, as per HPI and otherwise negative Physical Examination Vital Signs: Vital Signs Temperature 98.1 F 12/14/16 08:08 Pulse Rate 67 12/14/16 08:08 Respiratory Rate 20 12/14/16 08:08 Blood Pressure 119/76 12/14/16 08:08 O2 Sat by Pulse Oximetry (%) 100 12/14/16 08:00 Constitutional: Yes: Well Nourished, Other (lethargic but arousable to voice) Cardiovascular: Yes: Regular Rate and Rhythm. No: Gallop, Murmur, Rub Respiratory: Yes: Regular, CTA Bilaterally. No: Rales, Rhonchi, Wheezes Gastrointestinal: Yes: Normal Bowel Sounds, Soft. No: Distention, Tenderness Extremities: Yes: WNL Edema: No Labs: CBC, BMP 12/14/16 05:38 12/14/16 05:38 Imaging - Results Chest X-ray: Report Reviewed, Image Reviewed EKG: Image Reviewed Problem List - Problems (1) Chest pain Code(s): R07.9 - CHEST PAIN, UNSPECIFIED Qualifiers: Chest pain type: precordial pain Qualified Code(s): R07.2 - Precordial pain (2) CAD (coronary artery disease) Code(s): I25.10 - ATHSCL HEART DISEASE OF [place] CORONARY ARTERY W/O ANG PCTRS Qualifiers: Coronary Disease-Associated Artery/Lesion type: [place] artery [place] vs. transplanted heart: [place] heart Associated angina: without angina Qualified Code(s): I25.10 - Atherosclerotic heart disease of [place] coronary artery without angina pectoris (3) CHF (congestive heart failure), NYHA class I Code(s): I50.9 - HEART FAILURE, UNSPECIFIED Qualifiers: Congestive heart failure type: systolic Congestive heart failure chronicity: chronic Qualified Code(s): I50.22 - Chronic systolic ( congestive) heart failure (4) COPD (chronic obstructive pulmonary disease) Code(s): J44.9 - CHRONIC OBSTRUCTIVE PULMONARY DISEASE, UNSPECIFIED Qualifiers : COPD type: unspecified COPD Qualified Code(s): J44.9 - Chronic obstructive pulmonary disease, unspecified (5) Diabetes mellitus Code(s): E11.9 - TYPE 2 DIABETES MELLITUS WITHOUT COMPLICATIONS Qualifiers: Diabetes mellitus type: type 2 Diabetes mellitus complication status: without complication (6) Back pain Code(s): M54.9 - DORSALGIA, UNSPECIFIED (7) Hyperlipidemia Code(s): E78.5 - HYPERLIPIDEMIA, UNSPECIFIED Qualifiers: Hyperlipidemia type: pure hypercholesterolemia (8) Hypertension Code(s): I10 - ESSENTIAL (PRIMARY) HYPERTENSION Qualifiers: Hypertension type: essential hypertension Qualified Code(s): I10 - Essential (primary) hypertension (9) Neuropathy Code(s): G62.9 - POLYNEUROPATHY, UNSPECIFIED Assessment/Plan -patient admitted to telemetry on observation -cardiac enzymes x3 negative -EKG unchanged, no acute events on telemetry -seen by cardiology, pain not cardiac in nature -pain sounds closer to pleurisy -continue home regimen -discharge later today when more alert -will discontinue narcotics and xanax -follow up with PCP for pain control
--- NOTE | 2016-12-14 11:43 | DS ---
Physical Examination Vital Signs: Vital Signs Temperature 98.1 F 12/14/16 08:08 Pulse Rate 67 12/14/16 08:08 Respiratory Rate 20 12/14/16 08:08 Blood Pressure 119/76 12/14/16 08:08 O2 Sat by Pulse Oximetry (%) 100 12/14/16 08:00 Labs: CBC, BMP 12/14/16 05:38 12/14/16 05:38 Discharge Summary Reason For Visit: SHORTNESS OF BREATH AT REST, CHEST PAIN Current Active Problems Abdominal pain (Acute) CAD (coronary artery disease) (Acute) CHF (congestive heart failure), NYHA class I (Acute) COPD (chronic obstructive pulmonary disease) (Acute) Chest pain (Acute) Constipation (Acute) DVT prophylaxis (Acute) Dehydration (Acute) Diabetes mellitus (Acute) Dizziness (Acute) Elbow pain, left (Acute) Hypotension (Acute) Hypotension due to drugs (Acute) Lightheadedness (Acute) Neurocardiogenic syncope (Acute) Orthostatic hypotension (Acute) Renal insufficiency (Acute) Restless leg syndrome (Acute) Shortness of breath (Acute) Shortness of breath at rest (Acute) Syncope (Acute) Chronic left ventricular systolic dysfunction (Chronic) Depression (Chronic) Single implantable cardioverter-defibrillator (ICD) in situ (Chronic) Status post insertion of drug-eluting stent into left anterior descending artery for coronary artery disease (Chronic) Status post myocardial infarction of anterior wall (Chronic) Hospital Course: Please refer to H&P but in short Ms Edouard is a 51 year old female with history of CAD that comes in with atypical chest pain. She was evaluated and ruled out for acute cardiac event. She was seen by cardiology who agreed the pain was not cardiac in nature. She is safe for discharge home today. Condition: Good - Instructions Diet, Activity, Other Instructions: resume previous diet and activity Referrals: Sandra Barry MD [Primary Care Provider] - Mia Bell MD [Staff Physician] - Disposition: HOME - Home Medications Comprehensive Discharge Medication List: Ambulatory Orders Alprazolam [Xanax] 1 mg PO BID 04/15/16 Aspirin [ASA -] 81 mg PO DAILY 04/15/16 Atorvastatin Ca [Lipitor] 40 mg PO HS 04/15/16 Cholecalciferol (Vitamin D3) [Vitamin D -] 400 unit PO DAILY 04/15/16 Escitalopram Oxalate [Lexapro -] 20 mg PO DAILY 04/15/16 Gabapentin 800 mg PO TID 04/15/16 Topiramate 50 mg PO BID 04/15/16 Carvedilol [Coreg -] 3.125 mg PO BID #60 tablet 04/22/16 Pantoprazole Sodium [Protonix -] 40 mg PO BID #60 tablet.ec 04/22/16 Oxycodone HCl/Acetaminophen [Percocet 5-325 mg Tablet] 1 tab PO Q6H 05/21/16 Zolpidem Tartrate [Ambien] 10 mg PO HS 05/21/16 Lisinopril [Prinivil] 2.5 mg PO DAILY@1200 #30 tablet 05/31/16 Spironolactone [Aldactone -] 25 mg PO HS #30 tablet 05/31/16
--- NOTE | 2016-12-14 11:44 | EKG ---
Test Reason : Blood Pressure : / mmHG Vent. Rate : 071 BPM Atrial Rate : 071 BPM P-R Int : 182 ms QRS Dur : 076 ms QT Int : 434 ms P-R-T Axes : 056 019 081 degrees QTc Int : 471 ms NORMAL SINUS RHYTHM POSSIBLE LEFT ATRIAL ENLARGEMENT LOW VOLTAGE QRS CANNOT RULE OUT ANTEROSEPTAL INFARCT (CITED ON OR BEFORE 16-OCT-2014) ABNORMAL ECG WHEN COMPARED WITH ECG OF 15-JUL-2016 00:47, QT HAS LENGTHENED CLINICAL CORRELATION IS RECOMMENDED BASELINE ARTIFACT Confirmed by PEGGY CARNEY, DANISH ([id number]) on 12/14/2016 11:44:27 AM Referred By: DC Confirmed By:DANISH WOODS MD
[2016-12-14] MEDS ORDERED: LISINOPRIL 5 MG TABLET (FP) PO SCH (12:00)
== END 2016-12-14 13:31 | disposition home or self-care (01) ==
LOC: JER 16:49 → JERBED 20:29 → J4W 23:04
PROVIDERS: ADMIT Internal Medicine; ATTEND Internal Medicine
DX: J44.9 Chronic obstructive pulmonary disease, unspecified (principal); R07.2 Precordial pain; E11.9 Type 2 diabetes mellitus without complications; E78.5 Hyperlipidemia, unspecified; I50.22 Chronic systolic (congestive) heart failure; I51.9 Heart disease, unspecified; I25.10 Atherosclerotic heart disease of native coronary artery without angina pectoris; I10 Essential (primary) hypertension; I25.2 Old myocardial infarction; Z95.5 Presence of coronary angioplasty implant and graft; F41.9 Anxiety disorder, unspecified; F32.9 Major depressive disorder, single episode, unspecified; M54.5 Low back pain; G89.29 Other chronic pain; Z76.0 Encounter for issue of repeat prescription; Z87.442 Personal history of urinary calculi; G47.30 Sleep apnea, unspecified; R42 Dizziness and giddiness; R06.02 Shortness of breath; Z95.810 Presence of automatic (implantable) cardiac defibrillator; D64.9 Anemia, unspecified; Z79.82 Long term (current) use of aspirin; Z79.84 Long term (current) use of oral hypoglycemic drugs; E86.0 Dehydration; G25.81 Restless legs syndrome; I95.2 Hypotension due to drugs
CPT/HCPCS: 36415; 71010-TC; 80048; 80053; 82550; 83735; 83880; 84100; 84484; 85025; 85610; 93005; 93010; 99285-25; G0378

== ENCOUNTER 2016-12-28 13:38 | Emergency (ER) | payer OTHER ==
[2016-12-28 13:57] VITALS: TEMP 97.9; BMI 26.6
[2016-12-28] MEDS ORDERED: methylPREDNISolone NA SUCC 125 MG/2 ML VIAL IVPB ONE (16:08)
[2016-12-28] MEDS ORDERED: ALBUTEROL SO4 2.5/IPRATROPIUM 0.5 INH SOL 3 ML VIAL.NEB. NEB ONE ×2 (16:08→16:28)
[2016-12-28] MEDS ORDERED: SODIUM CHLORIDE 1,000 ML IV STA (16:08)
[2016-12-28 16:09] VITALS: BP 112/77; PULSE 75
[2016-12-28 16:28] LABS: VENOUS BLOOD GAS HCO3 23.8 meq/L (19-25)
[2016-12-28] MEDS ORDERED: methylPREDNISolone NA SUCC 125 MG/2 ML VIAL ONE (16:29)
[2016-12-28 16:30] LABS: VENOUS PH 7.49 (7.32-7.42)
--- NOTE | 2016-12-28 16:55 | PDOC ---
History of Present Illness - General Chief Complaint: Syncope/Near Syncope Stated Complaint: SOB Time Seen by Provider: 12/28/16 15:30 History Source: Patient Exam Limitations: No Limitations - History of Present Illness Initial Comments: 12/28/16 15:50 51-year-old female presents the emergency room with complaints of coughing for the past week associated now with shortness of breath nausea and vomiting. Patient states nausea has gotten to the point that she is unable to eat and can' t hold her medications down and today during an episode of vomiting she had vasovagal causing her to collapse with her daughter patient states did not hit her head and is on no anticoagulation therapy. Patient states is very anxious and depressed since she was able to take her medications including Xanax this morning. Patient denies fever, chills, headache, dizziness, chest pain, abdominal pain, dysuria, or diarrhea. Patient also denies lower extremity edema. Patient has an extensive history including CAD with stents, pacemaker, diabetes, and renal colic with stents. Timing/Duration: getting worse Severity: moderate Associated Symptoms: reports: cough, loss of appetite, nausea/vomiting, weakness Past History - Travel Traveled outside of the country in the last 30 days: No Close contact w/someone who was outside of country & ill: No - Past Medical History Allergies/Adverse Reactions: Allergies Allergy/AdvReac Type Severity Reaction Status Date / Time No Known Allergies Allergy Verified 12/28/16 13:51 Home Medications: Ambulatory Orders Alprazolam [Xanax] 1 mg PO BID 04/15/16 Aspirin [ASA -] 81 mg PO DAILY 04/15/16 Atorvastatin Ca [Lipitor] 40 mg PO HS 04/15/16 Cholecalciferol (Vitamin D3) [Vitamin D -] 400 unit PO DAILY 04/15/16 Escitalopram Oxalate [Lexapro -] 20 mg PO DAILY 04/15/16 Gabapentin 800 mg PO TID 04/15/16 Topiramate 50 mg PO BID 04/15/16 Carvedilol [Coreg -] 3.125 mg PO BID #60 tablet 04/22/16 Oxycodone HCl/Acetaminophen [Percocet 5-325 mg Tablet] 1 tab PO Q6H 05/21/16 Zolpidem Tartrate [Ambien] 10 mg PO HS 05/21/16 Lisinopril [Prinivil] 2.5 mg PO DAILY@1200 #30 tablet 05/31/16 Spironolactone [Aldactone -] 25 mg PO HS #30 tablet 05/31/16 Anemia: No Asthma: No Cancer: No Cardiac Disorders: Yes (cardiac stent nov2010/pacemaker02/2012, [place]) CVA: No COPD: Yes CHF: Yes Dementia: No Diabetes: No GI Disorders: Yes Disorders: Yes (kidney stents, kidney stones, stress incontinence, KIDNEY FAILURE) HTN: Yes Hypercholesterolemia: Yes Liver Disease: No Psychiatric Problems: Yes (anxiety, anorexia, DEPRESSION.) Suicide Attempt (Hx): No Seizures: No Thyroid Disease: No - Surgical History Abdominal Surgery: Yes Appendectomy: No Cardiac Surgery: Yes (cardiac cath, stent, ppm/aicd) Cholecystectomy: No Lung Surgery: No Neurologic Surgery: No Orthopedic Surgery: No - Family Disease History Family Disease History: Heart Disease: Father - Immunization History Td Vaccination: Yes TDAP Vaccination: Yes Immunization Up to Date: No (no flu vaccine) - Psycho/Social/Smoking Cessation Hx Anxiety: No Suicidal Ideation: No Smoking Status: No Smoking History: Former smoker Years of Tobacco Use: 10 Have you smoked in the past 12 months: No Number of Cigarettes Smoked Daily: 3 If you are a former smoker, when did you quit?: 2014 Cigars Per Day: 0 Information on smoking cessation initiated: No 'Breaking Loose' booklet given: 12/15/14 Hx Alcohol Use: No Drug/Substance Use Hx: No Substance Use Type: None Hx Substance Use Treatment: No Patient Lives Alone: No Review of Systems - Review of Systems Constitutional: Yes: Loss of Appetite, Weakness HEENTM: No: Symptoms Reported Respiratory: Yes: Cough, SOB with Exertion, Wheezing Cardiac (ROS): No: Symptoms Reported ABD/GI: Yes: Nausea, Poor Appetite, Poor Fluid Intake, Vomiting : No: Symptoms Reported Musculoskeletal: No: Symptoms Reported Integumentary: No: Symptoms Reported Endocrine: No: Symptoms Reported Hematologic/Lymphatic: No: Symptoms Reported *Physical Exam - Vital Signs Last Vital Signs Temp Pulse Resp BP Pulse Ox 97.9 F 75 22 112/77 100 12/28/16 13:52 12/28/16 16:01 12/28/16 16:01 12/28/16 16:01 12/28/16 16:01 - Physical Exam General Appearance: Yes: Nourished, Appropriately Dressed. No: Apparent Distress HEENT: positive: Pharynx Normal. negative: Pale Conjunctivae Neck: positive: Normal Thyroid, Supple Respiratory/Chest: positive: Wheezing (expiratory bilateral) Cardiovascular: positive: Regular Rhythm, Regular Rate. negative: Murmur Gastrointestinal/Abdominal: positive: Soft. negative: Tenderness Musculoskeletal: negative: CVA Tenderness Extremity: positive: Normal Capillary Refill. negative: Pedal Edema Integumentary: positive: Normal Color, Warm, Moist Neurologic: positive: Motor Strength 5/5. negative: Normal Mood/Affect ( tearful crying and anxious) ED Treatment Course - LABORATORY CBC & Chemistry Diagram: 12/28/16 16:19 12/28/16 16:19 - ADDITIONAL ORDERS Additional order review: Laboratory Results 12/28/16 16:19 VBG pH 7.49 H D POC VBG pCO2 31.5 L D POC VBG pO2 75.8 H D Mixed VBG HCO3 23.8 - RADIOLOGY Radiology Studies Ordered: Category Date Time Status CHEST X-RAY PORTABLE* [RAD] Stat Radiology 12/28/16 16:08 Ordered - Medications Given in the ED: ED Medications Discontinued Medications Generic Name Dose Route Start Last Admin Trade Name Freq PRN Reason Stop Dose Admin Albuterol/Ipratropium 1 amp 12/28/16 16:08 12/28/16 16:39 Duoneb - NEB 12/28/16 16:09 1 amp ONCE ONE Administration Methylprednisolone Sodium Succinate 125 mg 12/28/16 16:08 12/28/16 16:40 Solu-Medrol - IVPB 12/28/16 16:09 125 mg ONCE ONE Administration Medical Decision Making - Medical Decision Making 12/28/16 16:59 Patient with complaints of cough, shortness breath and wheezing for the past week now associate nausea/ vomiting, Decreased appetite, and inability to tolerate pills. Patient did not see her PCP but was here 3 weeks ago for similar symptoms that required her to be admitted for a few days secondary dehydration. Patient states took her glucose this morning which was 312 and was unable to take her medications this morning. Patient denies fever, chills, she chest pain abdominal pain, diarrhea. She is requesting a Xanax and oxycodone upon arrival since she states was unable to take it this morning. Patient concerning for pneumonia, COPD exacerbation electrolyte imbalance, and CK. Patient ordered for labs, chest x-ray, EKG, DuoNeb, Solu-Medrol, urinalysis including a drug toxicology. 12/28/16 17:46 Laboratory Tests 12/28/16 12/28/16 16:19 16:40 VBG pH 7.49 H D POC VBG pCO2 31.5 L D POC VBG pO2 75.8 H D Opiates Screen Negative Methadone Screen Negative Barbiturate Screen Negative Ur Amphetamines Screen Negative MDMA (Ecstasy) Screen Negative Benzodiazepines Screen Negative Cocaine Screen Negative U Marijuana (THC) Screen Negative Receive a phone call from the lab the patient was positive for opiates and marijuana and will re-result the drug toxicology
[2016-12-28] MEDS ORDERED: morphine CARPU-JECT 2 MG/1 ML DISP.SYRIN IVPUSH ONE (17:19)
[2016-12-28] MEDS ORDERED: morphine CARPU-JECT 4 MG/1 ML DISP.SYRIN ONE (17:23)
[2016-12-28 17:24] LABS: URINE APPEARANCE CLEAR; URINE BILIRUBIN NEGATIVE (NEGATIVE); URINE BLOOD NEGATIVE (NEGATIVE); URINE COLOR LTYELLOW; URINE GLUCOSE (UA) 3+ (NEGATIVE); URINE KETONE TRACE (NEGATIVE); URINE LEUK ESTERASE NEGATIVE (NEGATIVE); URINE NITRITE NEGATIVE (NEGATIVE); URINE PROTEIN NEGATIVE (NEGATIVE); URINE UROBILINOGEN NEGATIVE E.U./dl (0.2-1.0)
[2016-12-28 17:43] LABS: BASOPHIL 0.8 % (0-2.0); EOSINOPHIL 2.1 % (0-4.5); MEAN CELL VOLUME 94.1 fl (80-96); PLATELET COUNT 360 K/MM3 (134-434); RDW 14.5 % (11.6-15.6); WHITE BLOOD COUNT 12.1 K/mm3 (4.0-10.0)
[2016-12-28] MEDS ORDERED: ALPRAZolam 0.25 MG TABLET PO ONE (18:43)
[2016-12-28] MEDS ORDERED: ALPRAZolam 0.25 MG TABLET ONE (18:46)
[2016-12-28] MEDS ORDERED: OXYCODONE/APAP 5/325MG COMBO TABLET PO ONE (18:50)
[2016-12-28] MEDS ORDERED: OXYCODONE/APAP 5/325MG COMBO TABLET ONE (18:51)
[2016-12-28 19:38] LABS: ALBUMIN 3.9 g/dl (3.4-5.0); ANION GAP 10 (8-16); BILIRUBIN,TOTAL 0.5 mg/dL (0.2-1.0); CALCIUM 8.8 mg/dL (8.5-10.1); CO2 26 mmol/L (21-32); CREATININE 0.7 mg/dL (0.55-1.02); GLUCOSE,RANDOM 285 mg/dL (74-106); MAGNESIUM 1.5 mg/dL (1.8-2.4); SGOT/AST 15 U/L (15-37); SGPT/ALT 34 U/L (12-78)
[2016-12-28 19:41] LABS: ALK PHOS 126 U/L (45-117); TROPONIN I < 0.02 ng/ml (0.00-0.05)
--- NOTE | 2016-12-28 20:26 | PDOC ---
*Physical Exam - Vital Signs Last Vital Signs Temp Pulse Resp BP Pulse Ox 97.9 F 75 22 112/77 100 12/28/16 13:52 12/28/16 16:01 12/28/16 16:01 12/28/16 16:01 12/28/16 16:01 - Physical Exam Comments: 12/28/16 20:25 Sign-out received from outgoing ER provider Min. Pt interviewed and examined. Ancillary studies reviewed. Awaiting chem, BNP, lipase, acetone. Pending normal labs, patient to be d/c home. M.5, labs other unremarkable -1mg Mg sulfate Patient reassessed; continues to complain of pain. Tenderness to RUQ and RLQ on palpation. -IV Tylenol -ABd and pelvis CT 12/29/16 00:20 CT negative for acute pathology. 5 mm stable nodule to L lung base noted. Patient states she has appt with pulm on 02/06 and will keep the appt. Patient continues to request pain medication. [facility] istop referenced as below: Patient Name: Jossie Edouard Date: 1965 Address: [address] [place] [address] Sex: Female Rx Written Rx Dispensed Drug Quantity Days Supply Prescriber Name 12/20/2016 12/20/2016 oxycodone-acetaminophen 5-325 mg tab 80 26 Jak Phelps MD 12/15/2016 12/15/2016 zolpidem tartrate 10 mg tablet 30 30 Sandra Barry MD 12/15/2016 12/15/2016 clonazepam 0.5 mg tablet 60 30 Sandra Barry MD 11/19/2016 11/19/2016 oxycodone-acetaminophen 5-325 mg tab 80 26 Jak Phelps MD 11/19/2016 11/19/2016 zolpidem tartrate 10 mg tablet 15 15 Jak Phelps MD 11/05/2016 11/05/2016 oxycodone-acetaminophen 5-325 mg tab 40 13 Jak Phelps MD 10/22/2016 10/22/2016 oxycodone-acetaminophen 5-325 mg tab 40 13 Jak Phelps MD 10/22/2016 10/22/2016 zolpidem tartrate 10 mg tablet 15 15 Jak Phelps MD 09/29/2016 10/12/2016 clonazepam 0.5 mg tablet 30 30 Fadia Conti MD Patient recently filled rx for 80 of percocet and should still have remaining. Advised patient to f/u with pain management for further evaluation of chronic pain. Patient verbalized understanding and agrees to plan. ED Treatment Course - LABORATORY CBC & Chemistry Diagram: 12/28/16 16:19 12/28/16 18:55 - ADDITIONAL ORDERS Additional order review: Laboratory Results 12/28/16 12/28/16 12/28/16 16:40 16:40 16:19 VBG pH POC VBG pCO2 POC VBG pO2 Mixed VBG HCO3 Sodium Cancelled Potassium Cancelled Chloride Cancelled Carbon Dioxide Cancelled Anion Gap Cancelled BUN Cancelled Creatinine Cancelled Creat Clearance w eGFR Cancelled Random Glucose Cancelled Calcium Cancelled Magnesium Cancelled Total Bilirubin Cancelled AST Cancelled ALT Cancelled Alkaline Phosphatase Cancelled Creatine Kinase Cancelled Troponin I Cancelled B-Natriuretic Peptide Cancelled Total Protein Cancelled Albumin Cancelled Lipase Cancelled Urine Color Ltyellow Urine Appearance Clear Urine pH 6.0 Ur Specific [place] 1.010 Urine Protein Negative Urine Glucose (UA) 3+ H Urine Ketones Trace H Urine Blood Negative Urine Nitrite Negative Urine Bilirubin Negative Urine Urobilinogen Negative Ur Leukocyte Esterase Negative Opiates Screen Negative Methadone Screen Negative Barbiturate Screen Negative Phencyclidine Screen Negative Ur Amphetamines Screen Negative MDMA (Ecstasy) Screen Negative Benzodiazepines Screen Negative Cocaine Screen Negative U Marijuana (THC) Screen Negative Acetone, Qual Cancelled 12/28/16 16:19 VBG pH 7.49 H D POC VBG pCO2 31.5 L D POC VBG pO2 75.8 H D Mixed VBG HCO3 23.8 Sodium Potassium Chloride Carbon Dioxide Anion Gap BUN Creatinine Creat Clearance w eGFR Random Glucose Calcium Magnesium Total Bilirubin AST ALT Alkaline Phosphatase Creatine Kinase Troponin I B-Natriuretic Peptide Total Protein Albumin Lipase Urine Color Urine Appearance Urine pH Ur Specific [place] Urine Protein Urine Glucose (UA) Urine Ketones Urine Blood Urine Nitrite Urine Bilirubin Urine Urobilinogen Ur Leukocyte Esterase Opiates Screen Methadone Screen Barbiturate Screen Phencyclidine Screen Ur Amphetamines Screen MDMA (Ecstasy) Screen Benzodiazepines Screen Cocaine Screen U Marijuana (THC) Screen Acetone, Qual 12/28/16 16:19 RBC 4.22 MCV 94.1 MCHC 34.0 RDW 14.5 MPV 9.0 D Neutrophils % 67.0 Lymphocytes % 25.9 Monocytes % 4.2 Eosinophils % 2.1 Basophils % 0.8 - Medications Given in the ED: ED Medications Discontinued Medications Generic Name Dose Route Start Last Admin Trade Name Yani PRN Reason Stop Dose Admin Albuterol/Ipratropium 1 amp 12/28/16 16:08 12/28/16 16:39 Duoneb - NEB 12/28/16 16:09 1 amp ONCE ONE Administration Alprazolam 1 mg 12/28/16 18:43 12/28/16 18:56 Xanax - PO 12/28/16 18:44 1 mg ONCE ONE Administration Sodium Chloride 1,000 mls @ 1,000 mls/hr 12/28/16 16:08 12/28/16 16:39 Normal Saline - IV 12/28/16 17:07 1,000 mls/hr ASDIR STA Administration Methylprednisolone Sodium Succinate 125 mg 12/28/16 16:08 12/28/16 16:40 Solu-Medrol - IVPB 12/28/16 16:09 125 mg ONCE ONE Administration Morphine Sulfate 4 mg 12/28/16 17:19 12/28/16 17:26 Morphine Injection - IVPUSH 12/28/16 17:20 4 mg ONCE ONE Administration Oxycodone/Acetaminophen 1 combo 12/28/16 18:50 12/28/16 18:57 Percocet 5/325 - PO 12/28/16 18:51 1 combo ONCE ONE Administration *DC/Admit/Observation/Transfer Diagnosis at time of Disposition: Hypomagnesemia, Anxiety Back pain Qualifiers: Back pain location: low back pain Chronicity: acute Back pain laterality: right Sciatica presence: unspecified whether sciatica present Qualified Code(s) : M54.5 - Low back pain Abdominal pain Qualifiers: Abdominal location: right upper quadrant Qualified Code(s): R10.11 - Right upper quadrant pain - Discharge Dispostion Disposition: HOME Condition at time of disposition: Stable Admit: No - Referrals Referrals: Jak Phelps MD [Staff Physician] - - Patient Instructions Printed Discharge Instructions: DI for Syncope in Adults (Fainting), DI for Abdominal Pain-Adult Additional Instructions: Please follow up with your primary care doctor and Dr. Phelps for continued pain management. If you experience shortness of breath, chest pain, difficulty breathing, palpitations, continued nausea, vomiting, or diarrhea, or any new or worsening symptoms, please return to the ER.
[2016-12-28] MEDS ORDERED: MAGNESIUM SULF 50% (8.12 MEQ/2 ML-1 GM VIAL) IVPB ONE (21:26)
[2016-12-28] MEDS ORDERED: ACETAMINOPHEN 1000 MG/100 ML VIAL (NON FORMULARY) IVPB ONE (21:43)
[2016-12-28] MEDS ORDERED: MAGNESIUM SULF 50% (8.12 MEQ/2 ML-1 GM VIAL) ONE (21:57)
[2016-12-28] MEDS ORDERED: ACETAMINOPHEN INJECTION 100 ML IVPB ONE (21:58)
--- NOTE | 2016-12-29 13:39 | EKG ---
Test Reason : Blood Pressure : / mmHG Vent. Rate : 068 BPM Atrial Rate : 068 BPM P-R Int : 190 ms QRS Dur : 074 ms QT Int : 378 ms P-R-T Axes : 052 018 088 degrees QTc Int : 401 ms POOR DATA QUALITY, INTERPRETATION MAY BE ADVERSELY AFFECTED NORMAL SINUS RHYTHM ANTEROSEPTAL INFARCT (CITED ON OR BEFORE 16-OCT-2014) ABNORMAL ECG WHEN COMPARED WITH ECG OF 13-DEC-2016 16:55, QT HAS SHORTENED Confirmed by TAWNYA CARNEY, RIGO ([id number]) on 12/29/2016 1:39:14 PM Referred By: Confirmed By:RIGO BOWLING MD
== END 2016-12-29 01:04 | disposition home or self-care (01) ==
LOC: JER 13:38
PROC: 3E0F7GC Introduction of Other Therapeutic Substance into Respiratory Tract, Via Natural or Artificial Opening (ICD-10-PCS; principal; 2016-12-28)
PROC: 3E033NZ Introduction of Analgesics, Hypnotics, Sedatives into Peripheral Vein, Percutaneous Approach (ICD-10-PCS; 2016-12-28)
PROC: 3E033GC Introduction of Other Therapeutic Substance into Peripheral Vein, Percutaneous Approach (ICD-10-PCS; 2016-12-28)
PROC: 3E0337Z Introduction of Electrolytic and Water Balance Substance into Peripheral Vein, Percutaneous Approach (ICD-10-PCS; 2016-12-28)
DX: E83.42 Hypomagnesemia (principal); F41.9 Anxiety disorder, unspecified; R10.11 Right upper quadrant pain; I50.9 Heart failure, unspecified; Z95.5 Presence of coronary angioplasty implant and graft; J44.9 Chronic obstructive pulmonary disease, unspecified; E78.00 Pure hypercholesterolemia, unspecified; I10 Essential (primary) hypertension; Z87.891 Personal history of nicotine dependence
CPT/HCPCS: 36415; 71010-TC; 74177-TC; 80053; 80307; 81003; 82009; 82550; 82803; 83690; 83735; 83880; 84484; 85025; 93005; 93010; 94640; 96361; 96374; 96375; 99285-25

== ENCOUNTER 2017-01-22 23:33 | Inpatient (IN) | payer OTHER ==
--- NOTE | 2017-01-23 00:19 | PDOC ---
History of Present Illness - History of Present Illness Initial Comments: 01/23/17 00:50 The patient is a 52 year old female, with a significant past medical history of hypertension (metformin), CHF, cardiac stent (2010), pacemaker, [place] (2011), hyperlipidemia, COPD, kidney stent, kidney stones, stress incontinence, kidney failure, anxiety, anorexia, and depression, who presents to the emergency department with headaches, blurred vision, RUQ and BGM +400 for one week. She also reports wheezing since 12/13/16. She report her right sided abdominal pain radiates to her back, diffusely. She stats the pain is 8/10 in severity and non- radiating, with associated nausea. She reports having an appointment with Dr. Guillen in 2 weeks. She denies chest pain, shortness of breath, and dizziness. She denies fever, chills, vomit, diarrhea and constipation. She denies dysuria, frequency, urgency and hematuria. Allergies: NKDA Social history: denies tobacco use (admits to vaping) Surgical History: PCP - Dr. Monteiro [facility] - Dr. Bell <Martha Still - Last Filed: 01/23/17 01:08> - General History Source: Patient Exam Limitations: No Limitations <Antonia Harley - Last Filed: 01/23/17 02:50> - General Chief Complaint: Blood Sugar Problem Stated Complaint: HIGH BLOOD SUGAR, ABD PAIN Time Seen by Provider: 01/22/17 23:58 Past History <Martha Still - Last Filed: 01/23/17 01:08> - Past Medical History Anemia: No Asthma: No Cancer: No Cardiac Disorders: Yes (cardiac stent 2010/pacemaker02/2012, [place]) CVA: No COPD: Yes CHF: Yes Dementia: No Diabetes: Yes GI Disorders: Yes Disorders: Yes (kidney stents, kidney stones, stress incontinence, KIDNEY FAILURE) HTN: Yes Hypercholesterolemia: Yes Liver Disease: No Psychiatric Problems: Yes (anxiety, anorexia, DEPRESSION.) Suicide Attempt (Hx): No Seizures: No Thyroid Disease: No - Surgical History Abdominal Surgery: Yes Appendectomy: No Cardiac Surgery: Yes (cardiac cath, stent, ppm/aicd) Cholecystectomy: No Lung Surgery: No Neurologic Surgery: No Orthopedic Surgery: No - Family Disease History Family Disease History: Heart Disease: Father - Immunization History Td Vaccination: Yes TDAP Vaccination: Yes Immunization Up to Date: No (no flu vaccine) - Psycho/Social/Smoking Cessation Hx Anxiety: No Suicidal Ideation: No Smoking Status: No Smoking History: Never smoked Years of Tobacco Use: 10 Have you smoked in the past 12 months: No Number of Cigarettes Smoked Daily: 3 If you are a former smoker, when did you quit?: 2013 Cigars Per Day: 0 Information on smoking cessation initiated: No 'Breaking Loose' booklet given: 12/15/14 Hx Alcohol Use: No Drug/Substance Use Hx: No Substance Use Type: None Hx Substance Use Treatment: No <Antonia Harley - Last Filed: 01/23/17 02:50> - Past Medical History Allergies/Adverse Reactions: Allergies Allergy/AdvReac Type Severity Reaction Status Date / Time No Known Allergies Allergy Verified 01/22/17 23:52 Home Medications: Ambulatory Orders Alprazolam [Xanax] 1 mg PO BID 04/15/16 Aspirin [ASA -] 81 mg PO DAILY 04/15/16 Atorvastatin Ca [Lipitor] 40 mg PO HS 04/15/16 Cholecalciferol (Vitamin D3) [Vitamin D -] 400 unit PO DAILY 04/15/16 Escitalopram Oxalate [Lexapro -] 20 mg PO DAILY 04/15/16 Gabapentin 800 mg PO TID 04/15/16 Topiramate 50 mg PO BID 04/15/16 Carvedilol [Coreg -] 3.125 mg PO BID #60 tablet 04/22/16 Oxycodone HCl/Acetaminophen [Percocet 5-325 mg Tablet] 1 tab PO Q6H 05/21/16 Zolpidem Tartrate [Ambien] 10 mg PO HS 05/21/16 Lisinopril [Prinivil] 2.5 mg PO DAILY@1200 #30 tablet 05/31/16 Spironolactone [Aldactone -] 25 mg PO HS #30 tablet 05/31/16 Review of Systems - Review of Systems Able to Perform ROS?: Yes Comments:: 01/23/17 00:50 CONSTITUTIONAL: Absent: fever, no chills, no fatigue EYES: Absent: visual changes ENT: Absent: ear pain, no sore throat CARDIOVASCULAR: Absent: chest pain, no palpitations RESPIRATORY: (+) wheezing. Absent: cough, no SOB GASTROINTESTINAL: (+) right upper abdominal pain, Absent: no nausea, no vomiting, no constipation , no diarrhea GENITOURINARY: Absent: dysuria, no frequency, no hematuria MUSCULOSKELETAL: (+) upper back pain, Absent: no arthralgia, no myalgia SKIN: Absent: rash NEURO: Absent: headache <LouRodrigo jamesanda - Last Filed: 01/23/17 01:08> *Physical Exam - Vital Signs Last Vital Signs Temp Pulse Resp BP Pulse Ox 98 F 77 18 114/31 99 01/22/17 23:49 01/22/17 23:49 01/22/17 23:49 01/22/17 23:49 01/22/17 23:49 - Physical Exam Comments: 01/23/17 00:53 GENERAL: The patient is in no acute distress. HEAD: Normal with no signs of trauma. EYES: PERRLA, EOMI, sclera anicteric, conjunctiva clear. ENT: Ears normal, nares patent, oropharynx clear without exudates. Moist mucous membranes. NECK: Normal range of motion, supple without lymphadenopathy, JVD, or masses. LUNGS: Breath sounds equal, clear to auscultation bilaterally. No wheezes, and no crackles. HEART:Regular rate and rhythm, normal S1 and S2 without murmur, rub or gallop. ABDOMEN: (+) protuberant, right upper and lower quandrant ttp, epigastric ttp. Soft, normoactive bowel sounds. No guarding, no rebound. No masses palpable. EXTREMITIES: Normal range of motion, no edema. No clubbing or cyanosis. No erythema, or tenderness. NEUROLOGICAL: Cranial nerves II through XII grossly intact. Normal speech. No focal neurological deficits. MUSCULOSKELETAL: Back non-tender to palpation, no CVA tenderness SKIN: Warm, Dry, normal turgor, no rashes or lesions noted. <Martha Still - Last Filed: 01/23/17 01:08> - Vital Signs Last Vital Signs Temp Pulse Resp BP Pulse Ox 98 F 77 18 114/31 99 01/22/17 23:49 01/22/17 23:49 01/22/17 23:49 01/22/17 23:49 01/22/17 23:49 <Antonia Harley - Last Filed: 01/23/17 02:50> Heart Score/ECG Review - ECG Intrepretation Comment:: 01/23/17 01:08 EKG was read by Dr. Harley at 00:45 Impression: Normal sinus rhythm, T wave abnormality. Vent. Rate: 65 bpm IN Interval: 202 ms QTc: 403 ms <Martha Still - Last Filed: 01/23/17 01:08> #1 ECG reviewed & interpreted by me at: 01:44 01/23/17 01:44 Twelve-lead EKG was performed and reviewed by me. There is normal sinus rhythm with a normal rate of 65 bpm. The axis is normal. The intervals are normal - pr: 202ms, QRS: 88ms, QTc:403ms. Non specific ST changes, seen in prior EKG 01/23/17 01:46 <Antonia Harley - Last Filed: 01/23/17 02:50> ED Treatment Course - LABORATORY CBC & Chemistry Diagram: 01/23/17 00:30 01/23/17 00:30 - ADDITIONAL ORDERS Additional order review: 01/23/17 00:30 RBC 4.24 MCV 93.3 MCHC 34.6 RDW 13.7 MPV 7.6 D Neutrophils % 61.8 Lymphocytes % 29.2 Monocytes % 6.3 Eosinophils % 2.4 Basophils % 0.3 - Medications Given in the ED: ED Medications Discontinued Medications Generic Name Dose Route Start Last Admin Trade Name Yani PRN Reason Stop Dose Admin Albuterol/Ipratropium 1 amp 01/23/17 00:20 01/23/17 00:33 Duoneb - NEB 01/23/17 00:21 1 amp ONCE ONE Administration Morphine Sulfate 4 mg 01/23/17 00:20 01/23/17 00:40 Morphine Injection - IVPUSH 01/23/17 00:21 4 mg ONCE ONE Administration Ondansetron HCl 4 mg 01/23/17 00:40 01/23/17 00:40 Zofran Injection IVPUSH 01/23/17 00:41 4 mg NOW ONE Administration <Martha Still - Last Filed: 01/23/17 01:08> - LABORATORY CBC & Chemistry Diagram: 01/23/17 00:30 01/23/17 00:30 <Antonia Harley - Last Filed: 01/23/17 02:50> Medical Decision Making - Medical Decision Making 01/23/17 00:18 A portion of this note was documented by scribe services under my direction. I have reviewed the details of the note, within reason, and agree with the documentation with the following case summary and management plan written by me. Nursing documentation reviewed and incorporated into medical decision making This is a 52-year-old female h/o hypertension, DM on (metformin), CHF, cardiac stent (2010), pacemaker, [place] (2011), hyperlipidemia, COPD, kidney stent, kidney stones, who presents to the emergency department with headaches, blurred vision , RUQ/RLQ pain, and BGM +400 for one week. She also reports wheezing since 12/13/16 for which her doctor has been giving multiple medications. Pain is 8/10 in severity and non-radiating, with associated nausea. Multiple complaints! 1. COPD with exacerbation 2. Hyperglycemia - r/o DKA 3. Abdominal pain - Appendicitis, Colitis, Obstruction, Renal colic/pyelo 01/23/17 02:30 Referring Physician: Antonia Harley Patient Name: Jossie Edouard THIS IS A PRELIMINARYREPORT FROM [facility] EXAM: CT abdomen and pelvis with contrast IMAGES: 506 INDICATION: Right lower abdominal and flank pain DATE OF SERVICE: 2017-01-23 01:58:18.0 COMPARISON: none FINDINGS: Lung bases are clear. The visualized cardiac chambers are normal size and configuration. Pacemaker lead is noted. Liver is mildly fatty. Normal gallbladder, pancreas, spleen, adrenal glands and kidneys. The stomach and abdominal small and large bowel are normal. There is no aortic aneurysm. There is no significant retroperitoneal lymphadenopathy. There is mild pulse inflammation in sigmoid diverticula, consistent with mild diverticulitis. No bowel obstruction, abscess or free air.. The appendix is normal. The uterus and adnexal structures are normal. Urinary bladder is unremarkable. There is no pelvic free fluid. No discrete pelvic lymphadenopathy is identified. IMPRESSION: Very mild uncomplicated sigmoid diverticulitis. Mildly fatty liver. 01/23/17 02:40 Laboratory Tests 01/23/17 01/23/17 01/23/17 00:30 00:30 00:30 WBC 9.2 Hgb 13.7 Hct 39.6 Plt Count 220 D Neutrophils % 61.8 Lymphocytes % 29.2 Sodium 135 L Potassium 3.6 Chloride 99 Carbon Dioxide 28 BUN 10 D Creatinine 0.8 Random Glucose 433 H* D Troponin I < 0.02 Serum , Qual Negative Acetone, Qual Negative L 01/23/17 02:[address] Stevens Will give Levcamila and Shahram Will continue nebs as needed Clinical impression: Diverticulitis, severe COPD exacerbation, Hyperglycemia <Antonia Harley - Last Filed: 01/23/17 02:50> *DC/Admit/Observation/Transfer - Attestations Scribe Attestion: 01/23/17 00:55 Documentation prepared by Martah Still, acting as director global medical affairs for Antonia Harley MD <Martha Still - Last Filed: 01/23/17 01:08> - Discharge Dispostion Admit: Yes <Antonia Harley - Last Filed: 01/23/17 02:50> Diagnosis at time of Disposition: COPD (chronic obstructive pulmonary disease) Qualifiers: COPD type: unspecified COPD Qualified Code(s): J44.9 - Chronic obstructive pulmonary disease, unspecified Diverticulitis of intestine Qualifiers: Diverticulitis site: large intestine Diverticulitis bleeding: without bleeding Diverticulitis complication: without perforation or abscess Qualified Code(s): K57.32 - Diverticulitis of large intestine without perforation or abscess without bleeding - Discharge Dispostion Condition at time of disposition: Stable - Referrals Referrals: Sandra Barry MD [Primary Care Provider] -
[2017-01-23] MEDS ORDERED: morphine CARPU-JECT 4 MG/1 ML DISP.SYRIN IVPUSH ONE ×2 (00:20→03:06)
[2017-01-23] MEDS ORDERED: ALBUTEROL SO4 2.5/IPRATROPIUM 0.5 INH SOL 3 ML VIAL.NEB. NEB ONE ×2 (00:20→00:23)
[2017-01-23] MEDS ORDERED: SODIUM CHLORIDE 1,000 ML IV STA (00:30)
[2017-01-23] MEDS ORDERED: ONDANSETRON 4 MG/2 ML VIAL ONE (00:35)
[2017-01-23] MEDS ORDERED: morphine CARPU-JECT 4 MG/1 ML DISP.SYRIN ONE ×2 (00:35→02:53)
[2017-01-23] MEDS ORDERED: ONDANSETRON 4 MG/2 ML VIAL IVPUSH ONE (00:40)
[2017-01-23 00:41] LABS: BASOPHIL 0.3 % (0-2.0); EOSINOPHIL 2.4 % (0-4.5); MCH 32.3 pg (25.7-33.7); MCHC 34.6 g/dl (32.0-36.0); MEAN CELL VOLUME 93.3 fl (80-96); MEAN PLT VOLUME 7.6 fl (7.5-11.1); NEUTROPHILS 61.8 % (42.8-82.8); PLATELET COUNT 220 K/MM3 (134-434); RDW 13.7 % (11.6-15.6); WHITE BLOOD COUNT 9.2 K/mm3 (4.0-10.0)
[2017-01-23 01:07] LABS: ALBUMIN 3.9 g/dl (3.4-5.0); AMYLASE 26 U/L (25-115); ANION GAP 8 (8-16); BILIRUBIN,TOTAL 0.5 mg/dL (0.2-1.0); CALCIUM 9.1 mg/dL (8.5-10.1); CO2 28 mmol/L (21-32); CREATININE 0.8 mg/dL (0.55-1.02); SGOT/AST 10 U/L (15-37); SGPT/ALT 28 U/L (12-78); TOT PROT 7.1 g/dl (6.4-8.2)
[2017-01-23 01:09] LABS: ALK PHOS 145 U/L (45-117); TROPONIN I < 0.02 ng/ml (0.00-0.05)
[2017-01-23 01:14] LABS: GLUCOSE,RANDOM 433 mg/dL (74-106)
[2017-01-23] MEDS ORDERED: INSULIN REGULAR HUMAN 100 UNITS/ML *VIAL IVPUSH ONE (01:21)
[2017-01-23 01:34] LABS: ACETONE SERUM NEGATIVE (NEGATIVE)
[2017-01-23] MEDS ORDERED: INSULIN REGULAR HUMAN 100 UNITS/ML *VIAL ONE (01:37)
[2017-01-23] MEDS ORDERED: METRONIDAZOLE 500 MG PREMIXED 100 ML IVPB ONE ×2 (02:51→02:53)
[2017-01-23] MEDS ORDERED: LEVOFLOXACIN 500 MG IVPB 100 ML IVPB ONE ×2 (02:51→02:53)
[2017-01-23] MEDS ORDERED: ACETAMINOPHEN 325 MG TABLET (FP) PO PRN (02:52)
[2017-01-23] MEDS: SODIUM CHLORIDE 1,000 ML IV SCH ×2 (03:04→16:42)
[2017-01-23 03:12] LABS: PH,URINE 6.5 (5.0-8.0); URINE APPEARANCE CLEAR; URINE BILIRUBIN NEGATIVE (NEGATIVE); URINE BLOOD NEGATIVE (NEGATIVE); URINE COLOR LT. YELLOW; URINE GLUCOSE (UA) 3+ (NEGATIVE); URINE KETONE NEGATIVE (NEGATIVE); URINE LEUK ESTERASE NEGATIVE (NEGATIVE); URINE NITRITE NEGATIVE (NEGATIVE); URINE PROTEIN NEGATIVE (NEGATIVE); URINE UROBILINOGEN 0.2 mg/dL (0.2-1.0)
[2017-01-23] MEDS ORDERED: ALPRAZolam 0.25 MG TABLET PO ONE (03:25)
[2017-01-23 04:38] VITALS: BMI 30.4
[2017-01-23] MEDS: metFORMIN HCL 500 MG TABLET (FP) PO SCH ×2 (06:41→16:41)
[2017-01-23] MEDS: GABAPENTIN 400 MG CAPSULE (FP) PO SCH ×3 (06:41→21:05)
[2017-01-23] MEDS: INSULIN SLIDING SCALE (NOVOLOG) 1 VIAL SQ SCH ×3 (06:41→16:38)
[2017-01-23] MEDS: morphine CARPU-JECT 2 MG/1 ML DISP.SYRIN IVPUSH PRN ×4 (06:44→21:05)
[2017-01-23] MEDS ORDERED: INSULIN (NOVOLOG) ASPART 100 UNITS/ML 10ML VIAL ONE ×2 (06:54→12:04)
[2017-01-23] MEDS ORDERED: ESCITALOPRAM OXALATE 10 MG TABLET (FP) ONE (08:12)
[2017-01-23] MEDS ORDERED: PANTOPRAZOLE 40 MG TABLET (FP) PO SCH (10:00)
[2017-01-23] MEDS ORDERED: CARVEDILOL 3.125 MG TABLET (FP) PO SCH (10:00)
[2017-01-23] MEDS ORDERED: ESCITALOPRAM OXALATE 20 MG TABLET (FP) PO SCH (10:00)
[2017-01-23] MEDS ORDERED: ASPIRIN 81 MG CHEWABLE TABLETS PO SCH (10:00)
[2017-01-23] MEDS ORDERED: CHOLECALCIFEROL (VITAMIN D3) 400 UNIT TABLET (FP) PO SCH (10:00)
[2017-01-23] MEDS ORDERED: TOPIRAMATE 25 MG TABLET (FP) PO SCH (10:00)
[2017-01-23] MEDS: METRONIDAZOLE PREMIXED IVPB 50 ML IVPB SCH ×2 (10:05→17:43)
[2017-01-23] MEDS: ONDANSETRON 4 MG/2 ML VIAL IVPB PRN (10:44)
--- NOTE | 2017-01-23 11:11 | CONSULT ---
Consult Consult Specialty:: Endocrinology Referred by:: Dr Herve Stevens Reason for Consultation:: Hyperglycemia - History of Present Illness Chief Complaint: Abdominal pain, dizziness History of Present Illness: This is a 52 year old female, with history of DM for many years intermittently on medication ( On Meformin for few months and recently started on Glimepiride 2mg by PCP as per Pt), CHF, cardiac stent (2010), pacemaker, [place] ( 2011), hyperlipidemia, COPD, kidney stent, kidney stones, stress incontinence, kidney failure, anxiety, anorexia, and depression, who presented to the emergency department with headaches, blurred vision, and BGM +400 for one week. She also reported wheezing since 12/13/16. She also c/o diffuse abdominal pain . Pt has , polyuria, polydipsia and nocturia for few weeks. Also c/o of paresthesia of feet. Saw ophthalmology less than a year ago. Says she had some corneal problem which has since resolved. Pt referred for management of hyperglycemia. Patient's Blood glucose monitor show FS > 300 for last few days. Other recorded results were from a few months ago. Denies any hypoglycemic episode. Family h/o DM in mother. - History Source History Provided By: Patient, Medical Record Limitations to Obtaining History: Poor Historian - Past Medical History Cardio/Vascular: Yes: CAD, CHF, HTN, Hyperlipdemia, [place] Pulmonary: Yes: COPD (CPAP at home) Gastrointestinal: Yes: Hemorrhoids Renal/: Yes: Renal Inusuff (past episode of NEYMAR) ...: No Psych: Yes: Other (body dysmorphic disorder) Musculoskeletal: Yes: Chronic low back pain Rheumatology: Yes: Fibromyalgia - Past Surgical History Past Surgical History: Yes: AICD, , Stent - Alcohol/Substance Use Hx Alcohol Use: No History of Substance Use: reports: None - Smoking History Smoking history: Never smoked Have you smoked in the past 12 months: No Aproximately how many cigarettes per day: 3 If you are a former smoker, when did you quit?: 2013 - Social History Usual Living Arrangement: With Parent (boyfriend) ADL: Independent History of Recent Travel: No Home Medications - Allergies Allergies/Adverse Reactions: Allergies Allergy/AdvReac Type Severity Reaction Status Date / Time No Known Allergies Allergy Verified 01/22/17 23:52 - Home Medications Home Medications: Ambulatory Orders Alprazolam [Xanax] 1 mg PO BID 04/15/16 Aspirin [ASA -] 81 mg PO DAILY 04/15/16 Atorvastatin Ca [Lipitor] 40 mg PO HS 04/15/16 Cholecalciferol (Vitamin D3) [Vitamin D -] 400 unit PO DAILY 04/15/16 Escitalopram Oxalate [Lexapro -] 20 mg PO DAILY 04/15/16 Gabapentin 800 mg PO TID 04/15/16 Topiramate 50 mg PO BID 04/15/16 Carvedilol [Coreg -] 3.125 mg PO BID #60 tablet 04/22/16 Oxycodone HCl/Acetaminophen [Percocet 5-325 mg Tablet] 1 tab PO Q6H 05/21/16 Zolpidem Tartrate [Ambien] 10 mg PO HS 05/21/16 Lisinopril [Prinivil] 2.5 mg PO DAILY@1200 #30 tablet 05/31/16 Spironolactone [Aldactone -] 25 mg PO HS #30 tablet 05/31/16 Family Disease History - Family Disease History Family Disease History: Diabetes: Mother (alive), Heart Disease: Grandparent ( paternal grandfather of heart at young age), Father ([place] at age 63 ), Mother Review of Systems - Review of Systems Constitutional: reports: Malaise Eyes: reports: No Symptoms HENT: reports: No Symptoms Neck: reports: No Symptoms Cardiovascular: reports: Shortness of Breath Gastrointestinal: reports: Abdominal Pain, Constipation Genitourinary: reports: Other (polyruria, polydipsia and nocturia) Breasts: reports: No Symptoms Reported Musculoskeletal: reports: No Symptoms Neurological: reports: No Symptoms Endocrine: reports: Other (polyuria, polydipsia, nocturia) Hematology/Lymphatic: reports: No Symptoms Physical Exam Vital Signs: Vital Signs Temperature 98.8 F 01/23/17 03:53 Pulse Rate 75 01/23/17 03:53 Respiratory Rate 18 01/23/17 03:53 Blood Pressure 116/84 01/23/17 03:53 O2 Sat by Pulse Oximetry (%) 99 01/23/17 03:53 Constitutional: Yes: No Distress, Anxious Eyes: Yes: Conjunctiva Clear, EOM Intact HENT: Yes: Atraumatic, Normocephalic Neck: Yes: Supple, Trachea Midline Cardiovascular: Yes: Regular Rate and Rhythm Respiratory: Yes: Regular, Rhonchi (B/L) Gastrointestinal: Yes: Normal Bowel Sounds, Soft, Tenderness (diffuse) Musculoskeletal: Yes: WNL Extremities: Yes: WNL Edema: No Neurological: Yes: Alert, Oriented Imaging - Results Chest X-ray: Report Reviewed Cat Scan: Report Reviewed (preliminary report) Assessment/Plan AP: Abd pain/Sigmoid Diverticulitis DM Uncontrolled COPD Diet exercise discussed. BGM QACHS Nutrition consult D/C Metformin for now b/o GI symptoms Start Levemir 8 units stat Novolog SS coverage IV abx GI evaluation
[2017-01-23] MEDS: ALPRAZolam 2 MG TABLET PO SCH ×2 (11:46→21:05)
[2017-01-23] MEDS ORDERED: LISINOPRIL 5 MG TABLET (FP) PO SCH (12:00)
[2017-01-23] MEDS ORDERED: INSULIN DETEMIR 100 UNITS/ML MDV SQ ONE (12:00)
--- NOTE | 2017-01-23 12:57 | CONSULT ---
Consult Consult Specialty:: infectious diseases Reason for Consultation:: abd pain - History of Present Illness Chief Complaint: abd pain hyperglycemia History of Present Illness: 52 year old female, with history of DM for many years intermittently on medication ( On Meformin for few months and recently started on Glimepiride 2mg by PCP as per Pt), CHF, cardiac stent (2010), pacemaker, [place] (2011), hyperlipidemia, COPD, kidney stent, kidney stones, stress incontinence, kidney failure, anxiety, anorexia, and depression, admitted with headaches, blurred vision, and BGM +400 for one week. She also reported wheezing since 12/13/16. She also c/o diffuse abdominal pain . Pt has , polyuria, polydipsia and nocturia for few weeks. Also c/o of paresthesia of feet. Saw ophthalmology less than a year ago. Says she had some corneal problem which has since resolved. looking at the patient she has sodas on ehr table and she is non compliant as seen patient currently complaining of abd pain and says she is not feeling well sugars ahve been running high - History Source History Provided By: Patient Limitations to Obtaining History: No Limitations - Past Medical History Cardio/Vascular: Yes: CAD, CHF, HTN, Hyperlipdemia, [place] Pulmonary: Yes: COPD (CPAP at home) Gastrointestinal: Yes: Hemorrhoids Renal/: Yes: Renal Inusuff (past episode of NEYMAR) ...: No Psych: Yes: Other (body dysmorphic disorder) Musculoskeletal: Yes: Chronic low back pain Rheumatology: Yes: Fibromyalgia - Past Surgical History Past Surgical History: Yes: AICD, , Stent - Alcohol/Substance Use Hx Alcohol Use: No History of Substance Use: reports: None - Smoking History Smoking history: Never smoked Have you smoked in the past 12 months: No Aproximately how many cigarettes per day: 3 If you are a former smoker, when did you quit?: 2013 - Social History Usual Living Arrangement: With Parent (boyfriend) ADL: Independent History of Recent Travel: No Home Medications - Allergies Allergies/Adverse Reactions: Allergies Allergy/AdvReac Type Severity Reaction Status Date / Time No Known Allergies Allergy Verified 01/22/17 23:52 - Home Medications Home Medications: Ambulatory Orders Alprazolam [Xanax] 1 mg PO BID 04/15/16 Aspirin [ASA -] 81 mg PO DAILY 04/15/16 Atorvastatin Ca [Lipitor] 40 mg PO HS 04/15/16 Cholecalciferol (Vitamin D3) [Vitamin D -] 400 unit PO DAILY 04/15/16 Escitalopram Oxalate [Lexapro -] 20 mg PO DAILY 04/15/16 Gabapentin 800 mg PO TID 04/15/16 Topiramate 50 mg PO BID 04/15/16 Carvedilol [Coreg -] 3.125 mg PO BID #60 tablet 04/22/16 Oxycodone HCl/Acetaminophen [Percocet 5-325 mg Tablet] 1 tab PO Q6H 05/21/16 Zolpidem Tartrate [Ambien] 10 mg PO HS 05/21/16 Lisinopril [Prinivil] 2.5 mg PO DAILY@1200 #30 tablet 05/31/16 Spironolactone [Aldactone -] 25 mg PO HS #30 tablet 05/31/16 Family Disease History - Family Disease History Family Disease History: Diabetes: Mother (alive), Heart Disease: Grandparent ( paternal grandfather of heart at young age), Father ([place] at age 63 ), Mother Review of Systems - Review of Systems Constitutional: reports: No Symptoms Eyes: reports: No Symptoms HENT: reports: No Symptoms Neck: reports: No Symptoms Cardiovascular: reports: No Symptoms Respiratory: reports: No Symptoms Gastrointestinal: reports: Abdominal Pain Genitourinary: reports: No Symptoms Musculoskeletal: reports: No Symptoms Integumentary: reports: No Symptoms Neurological: reports: No Symptoms Endocrine: reports: No Symptoms Hematology/Lymphatic: reports: No Symptoms Psychiatric: reports: No Symptoms Physical Exam Vital Signs: Vital Signs Temperature 98.8 F 01/23/17 03:53 Pulse Rate 75 01/23/17 03:53 Respiratory Rate 18 01/23/17 03:53 Blood Pressure 116/84 01/23/17 03:53 O2 Sat by Pulse Oximetry (%) 99 01/23/17 03:53 Constitutional: Yes: Well Nourished, Calm, Mild Distress Eyes: Yes: Conjunctiva Clear HENT: Yes: Atraumatic, Normocephalic Neck: Yes: Supple, Trachea Midline Cardiovascular: Yes: Regular Rate and Rhythm Respiratory: Yes: Regular, CTA Bilaterally Gastrointestinal: Yes: Hypoactive Bowel Sounds, Tenderness, Other Musculoskeletal: Yes: WNL Extremities: Yes: WNL Neurological: Yes: Alert, Oriented Psychiatric: Yes: Alert, Oriented Imaging - Results Cat Scan: Report Reviewed, Image Reviewed Assessment/Plan after evaluating the patient she has two process going on hyperglycemia and diverticulitis also there might be microperf diverticulitis colitis hyperglycemia plan patient needs to be kept npo hydration will start zosyn will need repeat ct scan on tuesday very close monitoring
[2017-01-23] MEDS ORDERED: METOPROLOL TARTRATE 5 MG/5 ML VIAL IVPB PRN (13:24)
[2017-01-23] MEDS: PANTOPRAZOLE SODIUM 100 ML IVPB SCH (13:36)
--- NOTE | 2017-01-23 13:41 | HP ---
Admitting History and Physical - Primary Care Physician PCP: Sandra Barry - Admission Chief Complaint: abdominal pain, high sugar History of Present Illness: 51 year old female with significant past medical history of CAD, [place], S/P PCI/ LEVI to LAD in 2010, ischemic cardiomyopathy S/P ICD in 2012, HTN, hypercholesterolemia, COPD and OSAS, anxiety, insomnia, presented to the ER with abdominal pain for last 7-8 days with associated nausea. Pain has progressively gotten worse since yesterday. Diffuse in nature and radiating to back. 8-9/10 in intensity. No fever with chills, vomiting, diarrhea. H/O Constipation with sometimes not having BM for more than a week. She also reports uncontrolled DM with sugar readings running more than 400. She also reports headache, blurring of vision, and wheezing. Denies chest pain, shortness of breath, palpitation or dizziness. History Source: Patient, Medical Record - Past Medical History Cardiovascular: Yes: CAD, CHF, HTN, Hyperlipdemia, [place] Pulmonary: Yes: COPD (CPAP at home) Gastrointestinal: Yes: Hemorrhoids Renal/: Yes: Renal Inusuff (past episode of NEYMAR) ...: No Psych: Yes: Other (body dysmorphic disorder) Musculoskeletal: Yes: Chronic low back pain Rheumatology: Yes: Fibromyalgia - Past Surgical History Past Surgical History: Yes: AICD, , Stent - Smoking History Smoking history: Never smoked Have you smoked in the past 12 months: No Aproximately how many cigarettes per day: 3 If you are a former smoker, when did you quit?: 2013 - Alcohol/Substance Use Hx Alcohol Use: No History of Substance Use: reports: None - Social History ADL: Independent History of Recent Travel: No Home Medications - Allergies Allergies/Adverse Reactions: Allergies Allergy/AdvReac Type Severity Reaction Status Date / Time No Known Allergies Allergy Verified 01/22/17 23:52 - Home Medications Home Medications: Ambulatory Orders Alprazolam [Xanax] 1 mg PO BID 04/15/16 Aspirin [ASA -] 81 mg PO DAILY 04/15/16 Atorvastatin Ca [Lipitor] 40 mg PO HS 04/15/16 Cholecalciferol (Vitamin D3) [Vitamin D -] 400 unit PO DAILY 04/15/16 Escitalopram Oxalate [Lexapro -] 20 mg PO DAILY 04/15/16 Gabapentin 800 mg PO TID 04/15/16 Topiramate 50 mg PO BID 04/15/16 Carvedilol [Coreg -] 3.125 mg PO BID #60 tablet 04/22/16 Oxycodone HCl/Acetaminophen [Percocet 5-325 mg Tablet] 1 tab PO Q6H 05/21/16 Zolpidem Tartrate [Ambien] 10 mg PO HS 05/21/16 Lisinopril [Prinivil] 2.5 mg PO DAILY@1200 #30 tablet 05/31/16 Spironolactone [Aldactone -] 25 mg PO HS #30 tablet 05/31/16 Family Disease History - Family Disease History Family Disease History: Diabetes: Mother (alive), Heart Disease: Grandparent ( paternal grandfather of heart at young age), Father ([place] at age 63 ), Mother Review of Systems - Review of Systems Constitutional: reports: Weakness Eyes: reports: No Symptoms HENT: reports: No Symptoms Neck: reports: No Symptoms Cardiovascular: reports: No Symptoms Respiratory: reports: Wheezing Gastrointestinal: reports: Abdominal Pain, Nausea Genitourinary: reports: No Symptoms Musculoskeletal: reports: Back Pain Neurological: reports: No Symptoms Endocrine: reports: No Symptoms Hematology/Lymphatic: reports: No Symptoms Psychiatric: reports: No Symptoms Physical Examination Vital Signs: Vital Signs Temperature 98.1 F 01/23/17 13:24 Pulse Rate 54 L 01/23/17 13:24 Respiratory Rate 17 01/23/17 13:24 Blood Pressure 107/67 01/23/17 13:24 O2 Sat by Pulse Oximetry (%) 99 01/23/17 03:53 Constitutional: Yes: Anxious, Moderate Distress Eyes: Yes: Conjunctiva Clear, EOM Intact HENT: Yes: Atraumatic, Normocephalic Neck: Yes: Supple, Trachea Midline Cardiovascular: Yes: Regular Rate and Rhythm, S1, S2 Respiratory: Yes: Diminished Gastrointestinal: Yes: Soft, Tenderness (Diffuse) ...Rectal Exam: Yes: Deferred Musculoskeletal: Yes: Back Pain Edema: No Peripheral Pulses WNL: Yes Neurological: Yes: Alert, Oriented ...Motor Strength: WNL Psychiatric: Yes: Alert, Oriented Imaging - Results Cat Scan: Report Reviewed Problem List - Problems (1) Acute diverticulitis of intestine Assessment/Plan: Preliminary report read as "mild inflammation in sigmoid diverticula, consistent with mild diverticulitis. No bowel obstruction, abscess or free air". Final report read as "Acute diverticulitis with questionable extra-luminal air. No abscess" NPO IV Fluids/Morphine/zofran/IV protonix IV abx per ID GI/Surgery consulted. Code(s): K57.92 - DVTRCLI OF INTEST, PART UNSP, W/O PERF OR ABSCESS W/O BLEED (2) CAD (coronary artery disease) Assessment/Plan: S/P RI with stents Will consult cardiology in case patient needs surgery. Code(s): I25.10 - ATHSCL HEART DISEASE OF [place] CORONARY ARTERY W/O ANG PCTRS Qualifiers: Coronary Disease-Associated Artery/Lesion type: [place] artery [place] vs. transplanted heart: [place] heart Associated angina: without angina Qualified Code(s): I25.10 - Atherosclerotic heart disease of [place] coronary artery without angina pectoris (3) CHF (congestive heart failure), NYHA class I Assessment/Plan: Cardiology consulted. Patient is on IV fluids. Code(s): I50.9 - HEART FAILURE, UNSPECIFIED Qualifiers: Congestive heart failure type: systolic Congestive heart failure chronicity: chronic Qualified Code(s): I50.22 - Chronic systolic ( congestive) heart failure (4) COPD (chronic obstructive pulmonary disease) Assessment/Plan: Continue inhaled bronchodilators Pulmonary consulted. Code(s): J44.9 - CHRONIC OBSTRUCTIVE PULMONARY DISEASE, UNSPECIFIED Qualifiers : COPD type: unspecified COPD Qualified Code(s): J44.9 - Chronic obstructive pulmonary disease, unspecified (5) Diabetes mellitus Assessment/Plan: Endocrinology note appreciated. Continue Insulin/ISS. Code(s): E11.9 - TYPE 2 DIABETES MELLITUS WITHOUT COMPLICATIONS Qualifiers: Diabetes mellitus type: type 2 Diabetes mellitus complication status: without complication (6) Single implantable cardioverter-defibrillator (ICD) in situ Assessment/Plan: Cardiology consulted Code(s): Z95.810 - PRESENCE OF AUTOMATIC (IMPLANTABLE) CARDIAC DEFIBRILLATOR (7) Hypertension Assessment/Plan: Blood pressure running on the lower side. Metoprolol IV Q4 prn. Code(s): I10 - ESSENTIAL (PRIMARY) HYPERTENSION Qualifiers: Hypertension type: essential hypertension Qualified Code(s): I10 - Essential (primary) hypertension (8) Anxiety Assessment/Plan: Ativan 0.5 mg IV BID prn. Code(s): F41.9 - ANXIETY DISORDER, UNSPECIFIED
--- NOTE | 2017-01-23 13:58 | EKG ---
Test Reason : Blood Pressure : / mmHG Vent. Rate : 065 BPM Atrial Rate : 065 BPM P-R Int : 202 ms QRS Dur : 088 ms QT Int : 388 ms P-R-T Axes : 030 006 074 degrees QTc Int : 403 ms NORMAL SINUS RHYTHM ANTEROSEPTAL INFARCT (CITED ON OR BEFORE 16-OCT-2014) T WAVE ABNORMALITY, CONSIDER LATERAL ISCHEMIA ABNORMAL ECG WHEN COMPARED WITH ECG OF 28-DEC-2016 16:04, T WAVE INVERSION NOW EVIDENT IN LATERAL LEADS Confirmed by TAWNYA CARNEY, RIGO ([id number]) on 01/23/2017 1:57:34 PM Referred By: Confirmed By:RIGO BOWLING MD
--- NOTE | 2017-01-23 15:38 | CON.GI ---
Consult Consult Specialty:: GASTROENTEROLOGY - History of Present Illness Chief Complaint: ELEVATED GLUCOSE/ABDOMINAL PAIN AND DIVERTICULITIS History of Present Illness: 52 YEAR OLD FEMALE WITH MULTIPLE COMORBIDITIES SUCH CAD/[place], S/P PCI AND LEVI, ISCHEMIC CARDIOMYOPATHY AND S/P ICD, COPD, OSAS, HTN OBESITY, ADMITTED WITH NAUSEA , PROGRESSIVE ABDOMINAL PAIN AND CHILLS WITH ELEVATED BLOOD SUGARS TO OVER 400. IN THE ED CT SCAN SHOWS A LEFT SIDED DIVERTICULITIS WITH POSSIBLE TINY BUBBLES OF EXTRALUMINAL AIR. SHE HAS HAD SEVERAL COLONOSCOPIES BUT DID NOT KNOW SHE HAD DIVERTICULOSIS. SHE IS SEDATED FOR NARCOTIC ANALGESIA BUT STATES THAT HER PAIN CONTINUES BUT IT IS LESS. SHE HAS NO NAUSEA OR VOMITING. SHE DENIES HEMATEMESIS OR RECTAL BLEEDING. THIS IS HER FIRST BOUT OF DIVERTICULITIS. - History Source History Provided By: Patient, Family Member, Medical Record Limitations to Obtaining History: No Limitations - Past Medical History Cardio/Vascular: Yes: CAD, CHF, HTN, Hyperlipdemia, [place], Other (ICD,S/P PCI/LEVI) Pulmonary: Yes: COPD (CPAP at home) Gastrointestinal: Yes: Constipation, Hemorrhoids Renal/: Yes: Renal Inusuff (past episode of NEYMAR) ...: No Psych: Yes: Other (body dysmorphic disorder) Musculoskeletal: Yes: Chronic low back pain Rheumatology: Yes: Fibromyalgia - Past Surgical History Past Surgical History: Yes: AICD, Colonoscopy, , Stent - Alcohol/Substance Use Hx Alcohol Use: No History of Substance Use: reports: None - Smoking History Smoking history: Never smoked Have you smoked in the past 12 months: No Aproximately how many cigarettes per day: 3 If you are a former smoker, when did you quit?: 2013 - Social History Usual Living Arrangement: With Parent (boyfriend) ADL: Independent History of Recent Travel: No Home Medications - Allergies Allergies/Adverse Reactions: Allergies Allergy/AdvReac Type Severity Reaction Status Date / Time No Known Allergies Allergy Verified 01/22/17 23:52 - Home Medications Home Medications: Ambulatory Orders Alprazolam [Xanax] 1 mg PO BID 04/15/16 Aspirin [ASA -] 81 mg PO DAILY 04/15/16 Atorvastatin Ca [Lipitor] 40 mg PO HS 04/15/16 Cholecalciferol (Vitamin D3) [Vitamin D -] 400 unit PO DAILY 04/15/16 Escitalopram Oxalate [Lexapro -] 20 mg PO DAILY 04/15/16 Gabapentin 800 mg PO TID 04/15/16 Topiramate 50 mg PO BID 04/15/16 Carvedilol [Coreg -] 3.125 mg PO BID #60 tablet 04/22/16 Oxycodone HCl/Acetaminophen [Percocet 5-325 mg Tablet] 1 tab PO Q6H 05/21/16 Zolpidem Tartrate [Ambien] 10 mg PO HS 05/21/16 Lisinopril [Prinivil] 2.5 mg PO DAILY@1200 #30 tablet 05/31/16 Spironolactone [Aldactone -] 25 mg PO HS #30 tablet 05/31/16 Family Disease History - Family Disease History Family Disease History: Diabetes: Mother (alive), Heart Disease: Grandparent ( paternal grandfather of heart at young age), Father ([place] at age 63 ), Mother Review of Systems - Review of Systems Constitutional: reports: Chills Eyes: reports: No Symptoms HENT: reports: No Symptoms Neck: reports: No Symptoms Cardiovascular: reports: No Symptoms Respiratory: reports: No Symptoms Gastrointestinal: reports: Abdominal Pain, Nausea Genitourinary: reports: No Symptoms Musculoskeletal: reports: No Symptoms Integumentary: reports: No Symptoms Neurological: reports: No Symptoms Endocrine: reports: No Symptoms Hematology/Lymphatic: reports: No Symptoms Psychiatric: reports: No Symptoms Physical Exam-GI Vital Signs: Vital Signs Temperature 98.1 F 01/23/17 13:24 Pulse Rate 54 L 01/23/17 13:24 Respiratory Rate 17 01/23/17 13:24 Blood Pressure 107/67 01/23/17 13:24 O2 Sat by Pulse Oximetry (%) 99 01/23/17 03:53 Constitutional: Yes: Obese Eyes: Yes: Conjunctiva Clear HENT: Yes: Normocephalic Neck: Yes: Supple Cardiovascular: Yes: Regular Rate and Rhythm Respiratory: Yes: Wheezes Gastrointestinal Inspection: Yes: Distention ...Auscultate: Yes: Hypoactive Bowel Sounds ...Palpate: Yes: Tenderness (LLQ TNEDERNESS WITHOUT REBOUND) Genitourinary: Yes: WNL Extremities: Yes: WNL Labs: Laboratory Tests 01/23/17 01/23/17 01/23/17 00:30 00:30 00:30 WBC 9.2 RBC 4.24 Hgb 13.7 Hct 39.6 MCV 93.3 MCH 32.3 MCHC 34.6 RDW 13.7 Plt Count 220 D MPV 7.6 D Neutrophils % 61.8 Lymphocytes % 29.2 Monocytes % 6.3 Eosinophils % 2.4 Basophils % 0.3 Sodium 135 L Potassium 3.6 Chloride 99 Carbon Dioxide 28 Anion Gap 8 BUN 10 D Creatinine 0.8 Creat Clearance w eGFR > 60 POC Glucometer Random Glucose 433 H* D Calcium 9.1 Total Bilirubin 0.5 AST 10 L D ALT 28 Alkaline Phosphatase 145 H Creatine Kinase 50 Troponin I < 0.02 Total Protein 7.1 Albumin 3.9 Total Amylase 26 D Lipase 131 Serum , Qual Negative Urine Glucose (UA) Acetone, Qual Negative L 01/23/17 01/23/17 01/23/17 02:45 06:41 12:08 WBC RBC Hgb Hct MCV MCH MCHC RDW Plt Count MPV Neutrophils % Lymphocytes % Monocytes % Eosinophils % Basophils % Sodium Potassium Chloride Carbon Dioxide Anion Gap BUN Creatinine Creat Clearance w eGFR POC Glucometer 274 187 Random Glucose Calcium Total Bilirubin AST ALT Alkaline Phosphatase Creatine Kinase Troponin I Total Protein Albumin Total Amylase Lipase Serum , Qual Urine Glucose (UA) 3+ H Acetone, Qual Imaging - Results Cat Scan: Image Reviewed Problem List - Problems (1) Acute diverticulitis of intestine Assessment/Plan: THERE MAY BE SOME EXTRALUMINAL AIR BUT THIS IS NOT CERTAIN. I WOULD CONTINUE IV ABX, NPO, FOLLOW CBC/ESR/CRP. REPEAT CT SCAN IN 4 TO 5 DAYS. IF THIS BOUT RESOLVES WOULD NEEDS COLONOSCOPY 4 TO [address] SHOWS AIR WOULD NEED SURGICAL REFERRAL Code(s): K57.92 - DVTRCLI OF INTEST, PART UNSP, W/O PERF OR ABSCESS W/O BLEED (2) CAD (coronary artery disease) Code(s): I25.10 - ATHSCL HEART DISEASE OF [place] CORONARY ARTERY W/O ANG PCTRS Qualifiers: Coronary Disease-Associated Artery/Lesion type: [place] artery [place] vs. transplanted heart: [place] heart Associated angina: without angina Qualified Code(s): I25.10 - Atherosclerotic heart disease of [place] coronary artery without angina pectoris (3) COPD (chronic obstructive pulmonary disease) Code(s): J44.9 - CHRONIC OBSTRUCTIVE PULMONARY DISEASE, UNSPECIFIED Qualifiers : COPD type: unspecified COPD Qualified Code(s): J44.9 - Chronic obstructive pulmonary disease, unspecified (4) Constipation Code(s): K59.00 - CONSTIPATION, UNSPECIFIED (5) Diabetes mellitus Code(s): E11.9 - TYPE 2 DIABETES MELLITUS WITHOUT COMPLICATIONS Qualifiers: Diabetes mellitus type: type 2 Diabetes mellitus complication status: without complication (6) Renal insufficiency Code(s): N28.9 - DISORDER OF KIDNEY AND URETER, UNSPECIFIED (7) Single implantable cardioverter-defibrillator (ICD) in situ Code(s): Z95.810 - PRESENCE OF AUTOMATIC (IMPLANTABLE) CARDIAC DEFIBRILLATOR (8) Status post insertion of drug-eluting stent into left anterior descending artery for coronary artery disease Code(s): Z98.61 - CORONARY ANGIOPLASTY STATUS (9) Status post myocardial infarction of anterior wall Code(s): I25.2 - OLD MYOCARDIAL INFARCTION (10) Abdominal pain Code(s): R10.9 - UNSPECIFIED ABDOMINAL PAIN Qualifiers: Abdominal location: right upper quadrant Qualified Code(s): R10.11 - Right upper quadrant pain (11) Sleep apnea Code(s): G47.30 - SLEEP APNEA, UNSPECIFIED Qualifiers: Sleep apnea type: obstructive Qualified Code(s): G47.33 - Obstructive sleep apnea (adult) (pediatric)
[2017-01-23] MEDS ORDERED: PT OWN MED DRAWER 7, Y5N ONE (17:18)
[2017-01-23] MEDS ORDERED: PIPERACILLIN/TAZOB 4.5 GM 100 ML IVPB ONE (19:14)
--- NOTE | 2017-01-23 20:55 | CONSULT ---
Consult Consult Specialty:: General Surgery Referred by:: Dr. Stevens Reason for Consultation:: diverticulitis - History of Present Illness Chief Complaint: LLQ pain History of Present Illness: 52yo obese F with multiple medical problems including DM, CAD, [place], S/P PCI/LEVI to LAD in 2010, ischemic cardiomyopathy S/P ICD in 2011, HTN, hypercholesterolemia, COPD and OSAS, anxiety, insomnia, presented to the ER with abdominal pain beginning Tuesday and progressively increasing throughout the week with associated nausea and vomiting, chronic constipation (not sure but maybe last BM was sometime last week), subjective F/C, and not eating much over last few days. Pain got much worse yesterday and was more in LLQ, diffuse in nature and radiating to back. 8-9/10 in intensity. She uses oxycodone tid for back pain and sometimes does not have BM for more than a week. She also reports uncontrolled DM with sugar readings running more than 400 this last week with urinary frequency. She also reports headache, blurring of vision, and wheezing. In early December, she took a Z-pack and was seen for cough and wheezing by one of her doctors; she states many of her recent general symptoms date to about this time, though the pain and associated sx only started last week. Pain is about the same as when she got here. Last pain med was about 3 hours ago. She was given liquids earlier but has not taken much. Describes pain as all over abdomen, possibly more in lower abdomen. Doesn't feel the pain medicine is doing much for it. - History Source History Provided By: Patient, Significant Other, Medical Record Limitations to Obtaining History: Poor Historian (vague about parts of timeline) - Past Medical History Cardio/Vascular: Yes: CAD, CHF, HTN, Hyperlipdemia, [place], Other (ICD,S/P PCI/LEVI) Pulmonary: Yes: COPD (CPAP at home), Sleep Apnea (CPAP at home but only uses 3- 4x/week at night) Gastrointestinal: Yes: Constipation, Hemorrhoids Renal/: Yes: Renal Inusuff (past episode of NEYMAR) ...: No Psych: Yes: Other (body dysmorphic disorder) Musculoskeletal: Yes: Chronic low back pain Rheumatology: Yes: Fibromyalgia Endocrine: Yes: Diabetes Mellitus - Past Surgical History Past Surgical History: Yes: AICD, Colonoscopy, , Stent Additional Surgical History: L lesliepingectomy for ectopic - Alcohol/Substance Use Hx Alcohol Use: No History of Substance Use: reports: None - Smoking History Smoking history: Former smoker Have you smoked in the past 12 months: Yes Aproximately how many cigarettes per day: 1 (uses e-cigs/vapes several times a day) If you are a former smoker, when did you quit?: 2014 - Social History Usual Living Arrangement: With Spouse (rafiq) ADL: Independent History of Recent Travel: No Home Medications - Allergies Allergies/Adverse Reactions: Allergies Allergy/AdvReac Type Severity Reaction Status Date / Time No Known Allergies Allergy Verified 01/22/17 23:52 - Home Medications Home Medications: Ambulatory Orders Alprazolam [Xanax] 1 mg PO BID 04/15/16 Aspirin [ASA -] 81 mg PO DAILY 04/15/16 Atorvastatin Ca [Lipitor] 40 mg PO HS 04/15/16 Cholecalciferol (Vitamin D3) [Vitamin D -] 400 unit PO DAILY 04/15/16 Escitalopram Oxalate [Lexapro -] 20 mg PO DAILY 04/15/16 Gabapentin 800 mg PO TID 04/15/16 Topiramate 50 mg PO BID 04/15/16 Carvedilol [Coreg -] 3.125 mg PO BID #60 tablet 04/22/16 Oxycodone HCl/Acetaminophen [Percocet 5-325 mg Tablet] 1 tab PO Q6H 05/21/16 Zolpidem Tartrate [Ambien] 10 mg PO HS 05/21/16 Lisinopril [Prinivil] 2.5 mg PO DAILY@1200 #30 tablet 05/31/16 Spironolactone [Aldactone -] 25 mg PO HS #30 tablet 05/31/16 Home Medications (free text): metformin, glimepiride Family Disease History - Family Disease History Family Disease History: Diabetes: Mother (alive), Heart Disease: Grandparent ( paternal grandfather of heart at young age), Father ([place] at age 63 ), Mother Review of Systems - Review of Systems Constitutional: reports: Chills, Fever, Loss of Appetite Eyes: reports: Blurred Vision, Recent Change in Vision, Other (wears glasses) HENT: denies: Difficult Swallowing, Hearing Loss, Nasal Congestion, Throat Pain Neck: denies: Swollen Glands, Tenderness Cardiovascular: reports: Chest Pain, Palpitations (occasionally), Shortness of Breath Respiratory: reports: Cough, SOB, SOB on Exertion, Wheezing Gastrointestinal: reports: Abdominal Pain (with hpi), Bloating, Constipation, Nausea (since about ), Rectal Bleeding (with hemorrhoid at times), Vomiting (since about ). denies: Diarrhea Genitourinary: reports: Frequency. denies: Burning, Dysuria Musculoskeletal: reports: Back Pain. denies: Joint Swelling Integumentary: denies: Change in Color, Rash Neurological: reports: Headache. denies: Dizziness, Syncope Endocrine: reports: Other (urinary frequency). denies: Increased Thirst, Unexplained Weight Gain, Unexplained Weight Loss Psychiatric: reports: Altered Sleep Pattern (uses Ambien regularly), Anxiety, Depression Physical Exam Vital Signs: Vital Signs Temperature 98.1 F 01/23/17 13:24 Pulse Rate 54 L 01/23/17 13:24 Respiratory Rate 17 01/23/17 13:24 Blood Pressure 107/67 01/23/17 13:24 O2 Sat by Pulse Oximetry (%) 99 01/23/17 09:00 Constitutional: Yes: Moderate Distress (pain and), Obese Eyes: Yes: Conjunctiva Clear, EOM Intact. No: Sclera Icterus HENT: Yes: Atraumatic, Normocephalic Neck: Yes: Supple, Trachea Midline Cardiovascular: Yes: Regular Rate and Rhythm, Other (AICD palpable left upper chest) Respiratory: Yes: Regular, On Nasal O2, Rhonchi (bilateral), Wheezes ( expiratory bilaterally, audible and diffuse) Gastrointestinal: Yes: Soft, Abdomen, Obese, Hypoactive Bowel Sounds, Tenderness (diffusely, more in LLQ and across lower abdomen, no guarding or rebound) ...Rectal Exam: Yes: Deferred Renal/: Yes: CVA Tenderness - Left, CVA Tenderness - Right Musculoskeletal: Yes: Back Pain. No: Joint Swelling Extremities: No: Cool, Cyanosis Edema: Yes (hands mild) Integumentary: No: Jaundice, Rash Neurological: Yes: Alert, Oriented Psychiatric: Yes: Alert, Oriented, Other (mildly anxious) Labs: CBCD WBC 9.2 K/mm3 (4.0-10.0) 01/23/17 00:30 RBC 4.24 M/mm3 (3.60-5.2) 01/23/17 00:30 Hgb 13.7 GM/dL (10.7-15.3) 01/23/17 00:30 Hct 39.6 % (32.4-45.2) 01/23/17 00:30 MCV 93.3 fl (80-96) 01/23/17 00:30 MCHC 34.6 g/dl (32.0-36.0) 01/23/17 00:30 RDW 13.7 % (11.6-15.6) 01/23/17 00:30 Plt Count 220 K/MM3 (134-434) D 01/23/17 00:30 MPV 7.6 fl (7.5-11.1) D 01/23/17 00:30 CMP Sodium 135 mmol/L (136-145) L 01/23/17 00:30 Potassium 3.6 mmol/L (3.5-5.1) 01/23/17 00:30 Chloride 99 mmol/L (98-107) 01/23/17 00:30 Carbon Dioxide 28 mmol/L (21-32) 01/23/17 00:30 Anion Gap 8 (8-16) 01/23/17 00:30 BUN 10 mg/dL (7-18) D 01/23/17 00:30 Creatinine 0.8 mg/dL (0.55-1.02) 01/23/17 00:30 Creat Clearance w eGFR > 60 (>60) 01/23/17 00:30 Calcium 9.1 mg/dL (8.5-10.1) 01/23/17 00:30 Total Bilirubin 0.5 mg/dL (0.2-1.0) 01/23/17 00:30 AST 10 U/L (15-37) L D 01/23/17 00:30 ALT 28 U/L (12-78) 01/23/17 00:30 Alkaline Phosphatase 145 U/L (45-117) H 01/23/17 00:30 Total Protein 7.1 g/dl (6.4-8.2) 01/23/17 00:30 Albumin 3.9 g/dl (3.4-5.0) 01/23/17 00:30 Urine Test Results Urine Color Lt. yellow 01/23/17 02:45 Urine Appearance Clear 01/23/17 02:45 Urine pH 6.5 (5.0-8.0) 01/23/17 02:45 Ur Specific [place] <= 1.005 (1.005-1.025) 01/23/17 02:45 Urine Protein Negative (NEGATIVE) 01/23/17 02:45 Urine Glucose (UA) 3+ (NEGATIVE) H 01/23/17 02:45 Urine Ketones Negative (NEGATIVE) 01/23/17 02:45 Urine Blood Negative (NEGATIVE) 01/23/17 02:45 Urine Nitrite Negative (NEGATIVE) 01/23/17 02:45 Urine Bilirubin Negative (NEGATIVE) 01/23/17 02:45 Ur Leukocyte Esterase Negative (NEGATIVE) 01/23/17 02:45 Imaging - Results Cat Scan: Report Reviewed (sigmoid diverticulitis - inflammatory changes, no abscess, tiny locules of air may be in tics vs contained microperf - not clear as to extraluminal or not), Image Reviewed Problem List - Problems (1) Diverticulitis large intestine w/o perforation or abscess w/o bleeding Assessment/Plan: sigmoid diverticulitis- not clear if locules of air are actually extraluminal or in tics; no abscess or free perforation noted on CT agree with IV antibiotics per ID NPO except essential meds with sips H2O, IVF - until NO pain and NO tenderness pain meds prn - adjusted morphine dose (may need more given home use of oxycodone on regular basis for back pain) trend labs discussed potential need for surgery with patient and family at bedside - pt would be high risk related to cardiac and pulmonary status for OR under general anesthesia, and operation would likely mean laparotomy with almost certain colostomy, if pt's clinical status deteriorated quickly or there was evidence of gross perforation Pt understands and would like to avoid OR if at all possible will continue to follow Code(s): K57.32 - DVTRCLI OF LG INT W/O PERFORATION OR ABSCESS W/O BLEEDING (2) CAD (coronary artery disease) Assessment/Plan: cardio consulted pt on asa continue home meds Code(s): I25.10 - ATHSCL HEART DISEASE OF [place] CORONARY ARTERY W/O ANG PCTRS Qualifiers: Coronary Disease-Associated Artery/Lesion type: [place] artery [place] vs. transplanted heart: [place] heart Associated angina: without angina Qualified Code(s): I25.10 - Atherosclerotic heart disease of [place] coronary artery without angina pectoris (3) CHF (congestive heart failure), NYHA class I Assessment/Plan: cardio consulted need to balance IV fluids for diverticulitis with risk of overload maintain IV hydration and monitor for pulmonary congestion Code(s): I50.9 - HEART FAILURE, UNSPECIFIED Qualifiers: Congestive heart failure type: systolic Congestive heart failure chronicity: chronic Qualified Code(s): I50.22 - Chronic systolic ( congestive) heart failure (4) COPD (chronic obstructive pulmonary disease) Assessment/Plan: actively wheezing on NC O2 nebs ordered prn pulmonary consulted Code(s): J44.9 - CHRONIC OBSTRUCTIVE PULMONARY DISEASE, UNSPECIFIED Qualifiers : COPD type: unspecified COPD Qualified Code(s): J44.9 - Chronic obstructive pulmonary disease, unspecified (5) Constipation Assessment/Plan: pt on oxycodone 5mg tid at home for back pain uses dulcolax occasionally at home recommend bowel regimen on discharge Code(s): K59.00 - CONSTIPATION, UNSPECIFIED Qualifiers: Constipation type: drug induced constipation Qualified Code(s): K59.03 - Drug induced constipation (6) Diabetes mellitus Assessment/Plan: insulin sliding scale while npo pt may benefit from nutrition/dietary education - still consuming sugared foods at home Code(s): E11.9 - TYPE 2 DIABETES MELLITUS WITHOUT COMPLICATIONS Qualifiers: Diabetes mellitus type: type 2 Diabetes mellitus complication status: with hyperglycemia Diabetes mellitus senior living insulin use: without senior living use Qualified Code(s): E11.65 - Type 2 diabetes mellitus with hyperglycemia (7) Single implantable cardioverter-defibrillator (ICD) in situ Code(s): Z95.810 - PRESENCE OF AUTOMATIC (IMPLANTABLE) CARDIAC DEFIBRILLATOR (8) Status post insertion of drug-eluting stent into left anterior descending artery for coronary artery disease Assessment/Plan: pt is on asa Code(s): Z98.61 - CORONARY ANGIOPLASTY STATUS (9) Status post myocardial infarction of anterior wall Code(s): I25.2 - OLD MYOCARDIAL INFARCTION (10) Anxiety Assessment/Plan: continuing home meds Pt uses e-cigarettes - consider nicotine patch and cessation resources Code(s): F41.9 - ANXIETY DISORDER, UNSPECIFIED (11) Sleep apnea Assessment/Plan: CPAP at home - not using regularly consider CPAP while in hospital Code(s): G47.30 - SLEEP APNEA, UNSPECIFIED Qualifiers: Sleep apnea type: obstructive Qualified Code(s): G47.33 - Obstructive sleep apnea (adult) (pediatric)
[2017-01-23] MEDS: ALBUTEROL SO4 0.083% IH SOL 2.5 MG/3 ML VIAL.NEB. NEB PRN (21:09)
[2017-01-23] MEDS ORDERED: INSULIN SLIDING SCALE (NOVOLOG) 1 VIAL SQ SCH (22:00)
[2017-01-23] MEDS ORDERED: ATORVASTATIN CA 40 MG TABLET (FP) PO SCH (22:00)
[2017-01-23] MEDS ORDERED: SPIRONOLACTONE 25 MG TABLET (FP) PO SCH (22:00)
[2017-01-23] MEDS ORDERED: ZOLPIDEM TARTRATE 5 MG TABLET PO PRN (22:00)
[2017-01-23] MEDS ORDERED: Insulin (LOG) Aspart 100 UNITS/ML VIAL SQ SCH (22:00)
[2017-01-23] MEDS ORDERED: LEVOFLOXACIN 500 MG IVPB 100 ML IVPB SCH (22:00)
[2017-01-24] MEDS: PIPERACILLIN/TAZOB 4.5 GM 100 ML IVPB SCH ×3 (01:40→17:11)
[2017-01-24] MEDS: morphine CARPU-JECT 2 MG/1 ML DISP.SYRIN IVPUSH PRN ×4 (03:15→15:07)
[2017-01-24] MEDS: SODIUM CHLORIDE 1,000 ML IV SCH ×2 (05:43→09:16)
[2017-01-24] MEDS: GABAPENTIN 400 MG CAPSULE (FP) PO SCH ×3 (05:49→21:05)
[2017-01-24] MEDS: INSULIN SLIDING SCALE (NOVOLOG) 1 VIAL SQ SCH ×4 (06:14→21:06)
[2017-01-24] MEDS ORDERED: INSULIN (NOVOLOG) ASPART 100 UNITS/ML 10ML VIAL ONE ×2 (06:17→11:20)
[2017-01-24 08:38] LABS: BASOPHIL 0.2 % (0-2.0); EOSINOPHIL 2.3 % (0-4.5); MCH 32.7 pg (25.7-33.7); MCHC 34.6 g/dl (32.0-36.0); MEAN CELL VOLUME 94.4 fl (80-96); MEAN PLT VOLUME 7.2 fl (7.5-11.1); PLATELET COUNT 195 K/MM3 (134-434); RDW 13.8 % (11.6-15.6); WHITE BLOOD COUNT 8.8 K/mm3 (4.0-10.0)
[2017-01-24 09:06] LABS: ALBUMIN 3.1 g/dl (3.4-5.0); ALK PHOS 125 U/L (45-117); ANION GAP 6 (8-16); BILIRUBIN,TOTAL 0.6 mg/dL (0.2-1.0); C-REACTIVE PROTEIN 2.2 MG/DL (0.00-0.3); CO2 29 mmol/L (21-32); CREATININE 0.7 mg/dL (0.55-1.02); GLUCOSE,RANDOM 167 mg/dL (74-106); SGOT/AST 54 U/L (15-37); SGPT/ALT 50 U/L (12-78); TOT PROT 5.9 g/dl (6.4-8.2)
[2017-01-24] MEDS: PANTOPRAZOLE SODIUM 100 ML IVPB SCH (09:14)
--- NOTE | 2017-01-24 09:57 | CON.PULM ---
Consult - History of Present Illness Chief Complaint: abdominal pain History of Present Illness: 52 y/o lady admitted with abdominal pain/diverticulitis. PMH positive COPD, ASHD/ ISELA - History Source History Provided By: Patient, Medical Record Limitations to Obtaining History: No Limitations - Past Medical History Cardio/Vascular: Yes: CAD, CHF, HTN, Hyperlipdemia, [place], Other (ICD,S/P PCI/LEVI) Pulmonary: Yes: COPD (CPAP at home), Sleep Apnea (CPAP at home but only uses 3- 4x/week at night) Gastrointestinal: Yes: Constipation, Hemorrhoids Renal/: Yes: Renal Inusuff (past episode of NEYMAR) ...: No Psych: Yes: Other (body dysmorphic disorder) Musculoskeletal: Yes: Chronic low back pain Rheumatology: Yes: Fibromyalgia Endocrine: Yes: Diabetes Mellitus - Past Surgical History Past Surgical History: Yes: AICD, Colonoscopy, , Stent Additional Surgical History: L salpingectomy for ectopic - Alcohol/Substance Use Hx Alcohol Use: No History of Substance Use: reports: None - Smoking History Smoking history: Former smoker Have you smoked in the past 12 months: Yes Aproximately how many cigarettes per day: 1 (uses e-cigs/vapes several times a day) If you are a former smoker, when did you quit?: 2014 - Social History Usual Living Arrangement: With Spouse (rafiq) ADL: Independent History of Recent Travel: No Home Medications - Allergies Allergies/Adverse Reactions: Allergies Allergy/AdvReac Type Severity Reaction Status Date / Time No Known Allergies Allergy Verified 01/22/17 23:52 - Home Medications Home Medications: Ambulatory Orders Alprazolam [Xanax] 1 mg PO BID 04/15/16 Aspirin [ASA -] 81 mg PO DAILY 04/15/16 Atorvastatin Ca [Lipitor] 40 mg PO HS 04/15/16 Cholecalciferol (Vitamin D3) [Vitamin D -] 400 unit PO DAILY 04/15/16 Escitalopram Oxalate [Lexapro -] 20 mg PO DAILY 04/15/16 Gabapentin 800 mg PO TID 04/15/16 Topiramate 50 mg PO BID 04/15/16 Carvedilol [Coreg -] 3.125 mg PO BID #60 tablet 04/22/16 Oxycodone HCl/Acetaminophen [Percocet 5-325 mg Tablet] 1 tab PO Q6H 05/21/16 Zolpidem Tartrate [Ambien] 10 mg PO HS 05/21/16 Lisinopril [Prinivil] 2.5 mg PO DAILY@1200 #30 tablet 05/31/16 Spironolactone [Aldactone -] 25 mg PO HS #30 tablet 05/31/16 Family Disease History - Family Disease History Family Disease History: Diabetes: Mother (alive), Heart Disease: Grandparent ( paternal grandfather of heart at young age), Father ([place] at age 63 ), Mother Review of Systems - Review of Systems Cardiovascular: reports: Shortness of Breath. denies: Chest Pain, Palpitations Respiratory: reports: Cough, Wheezing. denies: Hemoptysis Gastrointestinal: reports: Abdominal Pain Neurological: reports: Change in LOC Physical Exam Vital Sings: Vital Signs Temperature 98.7 F 01/24/17 08:15 Pulse Rate 56 L 01/24/17 08:15 Respiratory Rate 16 01/24/17 08:15 Blood Pressure 101/67 01/24/17 08:15 O2 Sat by Pulse Oximetry (%) 98 01/23/17 21:00 Constitutional: Yes: Mild Distress (patient able to lie flat comfortably.) Eyes: No: Sclera Icterus HENT: Yes: Atraumatic, Normocephalic Neck: Yes: Supple, Trachea Midline Cardiovascular: Yes: Regular Rate and Rhythm Respiratory: Yes: Rales (few rales right base) ...Clubbing: No Gastrointestinal: Yes: Soft, Tenderness (mild diffuse) Edema: No Neurological: Yes: Alert, Oriented Labs: CBC, BMP 01/24/17 08:15 01/24/17 08:15 Imaging - Results Chest X-ray: Report Reviewed, Image Reviewed (HAKAN. AICD) Cat Scan: Report Reviewed, Image Reviewed (5 mm LLL nodule unchanged from 2015 Nodule present on 04/22/2013 CT Chest though slightly smaller) Assessment/Plan COPD- mild; respiratory status stable ISELA-uses CPAP several times per week at home Diverticulitis Lung [id number] increased in size over 4 years. Plan Albuterol O2 to maintain SaO2 greater than 90 Flovent Pt. to have her CPAP machine and mask brought to hospital I will try to obtain results of PSG done in [address] chest in one year
--- NOTE | 2017-01-24 11:10 | CON.CARD ---
Consult Consult Specialty:: Cardiology Referred by:: Dr. Herve Stevens Reason for Consultation:: Pre-procedure cardiovascular evaluation - History of Present Illness Chief Complaint: Abd pain History of Present Illness: Patient is a 52 year old female with underlying history of CAD, [place], S/P PCI/LEVI to LAD in 2010, ischemic cardiomyopathy S/P ICD in 2011, patent stent demonstrated by cath in 2016, HTN, hypercholesterolemia, COPD and OSAS anxiety, insomnia, presented with progressively worsening, diffuse LLQ abdominal pain radiating to back with associated nausea and vomiting, chronic constipation, subjective F/C, and anorexia. She also reports uncontrolled DM with sugar readings running more than 400 this last week with urinary frequency. Denies chest pain, dyspnea worse than baseline, near or true syncope, palps, orthopnea , PND or LE edema, she does report persistent LLQ pain and nausea. - History Source History Provided By: Patient Limitations to Obtaining History: No Limitations - Past Medical History Cardio/Vascular: Yes: CAD, CHF, HTN, Hyperlipdemia, [place], Other (ICD,S/P PCI/LEVI) Pulmonary: Yes: COPD (CPAP at home), Sleep Apnea (CPAP at home but only uses 3- 4x/week at night) Gastrointestinal: Yes: Constipation, Hemorrhoids Renal/: Yes: Renal Inusuff (past episode of NEYMAR) ...: No Psych: Yes: Other (body dysmorphic disorder) Musculoskeletal: Yes: Chronic low back pain Rheumatology: Yes: Fibromyalgia Endocrine: Yes: Diabetes Mellitus - Past Surgical History Past Surgical History: Yes: AICD, Colonoscopy, , Permanent Pacemaker, Stent Additional Surgical History: L salpingectomy for ectopic - Alcohol/Substance Use Hx Alcohol Use: No History of Substance Use: reports: None - Smoking History Smoking history: Former smoker Have you smoked in the past 12 months: Yes Aproximately how many cigarettes per day: 1 (uses e-cigs/vapes several times a day) If you are a former smoker, when did you quit?: 2014 - Social History Usual Living Arrangement: With Spouse (rafiq) ADL: Independent History of Recent Travel: No Home Medications - Allergies Allergies/Adverse Reactions: Allergies Allergy/AdvReac Type Severity Reaction Status Date / Time No Known Allergies Allergy Verified 01/22/17 23:52 - Home Medications Home Medications: Ambulatory Orders Alprazolam [Xanax] 1 mg PO BID 04/15/16 Aspirin [ASA -] 81 mg PO DAILY 04/15/16 Atorvastatin Ca [Lipitor] 40 mg PO HS 04/15/16 Cholecalciferol (Vitamin D3) [Vitamin D -] 400 unit PO DAILY 04/15/16 Escitalopram Oxalate [Lexapro -] 20 mg PO DAILY 04/15/16 Gabapentin 800 mg PO TID 04/15/16 Topiramate 50 mg PO BID 04/15/16 Carvedilol [Coreg -] 3.125 mg PO BID #60 tablet 04/22/16 Oxycodone HCl/Acetaminophen [Percocet 5-325 mg Tablet] 1 tab PO Q6H 05/21/16 Zolpidem Tartrate [Ambien] 10 mg PO HS 05/21/16 Lisinopril [Prinivil] 2.5 mg PO DAILY@1200 #30 tablet 05/31/16 Spironolactone [Aldactone -] 25 mg PO HS #30 tablet 05/31/16 Family Disease History - Family Disease History Family Disease History: Diabetes: Mother (alive), Heart Disease: Grandparent ( paternal grandfather of heart at young age), Father ([place] at age 63 ), Mother Review of Systems - Review of Systems Gastrointestinal: reports: Abdominal Pain, Constipation, Nausea, Vomiting - Risk Factors Known Risk Factors: Yes: Diabetes Mellitus, Prior [place] /Emb Stroke Vital Signs: Vital Signs Temperature 98.7 F 01/24/17 08:15 Pulse Rate 56 L 01/24/17 08:15 Respiratory Rate 16 01/24/17 08:15 Blood Pressure 101/67 01/24/17 08:15 O2 Sat by Pulse Oximetry (%) 98 01/24/17 09:00 Constitutional: Yes: No Distress, Calm Neck: Yes: Supple Respiratory: Yes: Regular, Diminished Gastrointestinal: Yes: Soft, Abdomen, Obese, Hypoactive Bowel Sounds, Tenderness , Rebound Cardiovascular: Yes: Regular Rate and Rhythm JVD: No Carotid Bruit: No Heart Sounds: Yes: S1, S2 Murmur: Yes: Systolic Murmur, Grade 1 Edema: No - Other Data Labs, Other Data: CBC, BMP 01/24/17 08:15 01/24/17 08:15 NSR @ [address] 1[address] deg AVB old anteroseptal infarct Echo: Report Reviewed Prior Cardiac Procedures: PTCA with Stent Ejection Fraction %: LVEF < 40 % Imaging - Results Chest X-ray: Report Reviewed (NAD) Cat Scan: Report Reviewed (Sigmoid diverticulitis) Problem List - Problems (1) Acute diverticulitis of intestine Code(s): K57.92 - DVTRCLI OF INTEST, PART UNSP, W/O PERF OR ABSCESS W/O BLEED (2) CAD (coronary artery disease) Code(s): I25.10 - ATHSCL HEART DISEASE OF [place] CORONARY ARTERY W/O ANG PCTRS Qualifiers: Coronary Disease-Associated Artery/Lesion type: [place] artery [place] vs. transplanted heart: [place] heart Associated angina: without angina Qualified Code(s): I25.10 - Atherosclerotic heart disease of [place] coronary artery without angina pectoris (3) COPD (chronic obstructive pulmonary disease) Code(s): J44.9 - CHRONIC OBSTRUCTIVE PULMONARY DISEASE, UNSPECIFIED Qualifiers : COPD type: unspecified COPD Qualified Code(s): J44.9 - Chronic obstructive pulmonary disease, unspecified (4) Constipation Code(s): K59.00 - CONSTIPATION, UNSPECIFIED Qualifiers: Constipation type: drug induced constipation Qualified Code(s): K59.03 - Drug induced constipation (5) Diabetes mellitus Code(s): E11.9 - TYPE 2 DIABETES MELLITUS WITHOUT COMPLICATIONS Qualifiers: Diabetes mellitus type: type 2 Diabetes mellitus complication status: with hyperglycemia Diabetes mellitus [employer]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 insulin use: without group home use Qualified Code(s): E11.65 - Type 2 diabetes mellitus with hyperglycemia; Z79.4 - USP (current) use of insulin (6) Diverticulitis large intestine w/o perforation or abscess w/o bleeding Code(s): K57.32 - DVTRCLI OF LG INT W/O PERFORATION OR ABSCESS W/O BLEEDING (7) Chronic left ventricular systolic dysfunction Code(s): I51.9 - HEART DISEASE, UNSPECIFIED (8) Single implantable cardioverter-defibrillator (ICD) in situ Code(s): Z95.810 - PRESENCE OF AUTOMATIC (IMPLANTABLE) CARDIAC DEFIBRILLATOR (9) Status post insertion of drug-eluting stent into left anterior descending artery for coronary artery disease Code(s): Z98.61 - CORONARY ANGIOPLASTY STATUS (10) Status post myocardial infarction of anterior wall Code(s): I25.2 - OLD MYOCARDIAL INFARCTION (11) Hyperlipidemia Code(s): E78.5 - HYPERLIPIDEMIA, UNSPECIFIED Qualifiers: Hyperlipidemia type: pure hypercholesterolemia Qualified Code(s): E78.00 - Pure hypercholesterolemia, unspecified; E78.0 - Pure hypercholesterolemia (12) Hypertension Code(s): I10 - ESSENTIAL (PRIMARY) HYPERTENSION Qualifiers: Hypertension type: essential hypertension Qualified Code(s): I10 - Essential (primary) hypertension (13) Sleep apnea Code(s): G47.30 - SLEEP APNEA, UNSPECIFIED Qualifiers: Sleep apnea type: obstructive Qualified Code(s): G47.33 - Obstructive sleep apnea (adult) (pediatric) Assessment/Plan Echocardiography dated 11/23 revealed LV mildly dilated with wall motion abnormality, EF mildly reduced, moderate MR and mild TR MPI study dated 11/22 revealed mildly reduced EF with apical fixed defect infarct [facility] coronary angiography dated 11/23 revealed non-obstructive CAD, patent LAD stent, moderate decreased LV systolic function with LVEF 45% with severe anterior, hannah-lateral hypokinesia 1. Acute sigmoid diverticulitis ? microperforation 2. CAD S/P PCI/stent, angina pectoris 3. Ischemic cardiomyopathy with history of failure S/P ICD, euvolemic 4. HTN/HCVD 5. Hypercholesterolemia 6. OSAS noncompliant with cpap 7. History of neurocardiogenic syncope 8. Depression/anxiety/eating disorder 9. Mild COPD 10. Uncontrolled DM PLAN: 1. IVF, bowel rest, IVF, repeat CT scan 4-5 days then consideration for colonoscopy 4-6 weeks vs laparotomy and colostomy if free air is more apparent 2. Continue IV Lopressor during bowel rest, DVT prophylaxis 3. ASA held pre-procedure, may proceed from CV standpoint if clinically warranted for non-cardiac procedure given absence of sxs of acute coronary syndrome, decompensated CHF or malignant arrhythmia, place magnet over ICD 4. Cpap nightly, BD, O2 as needed 5. Thank you for consultative opportunity
[2017-01-24] MEDS: ALPRAZolam 2 MG TABLET PO SCH ×2 (11:36→21:05)
--- NOTE | 2017-01-24 11:55 | PN ---
Progress Note, Physician Chief Complaint: Ms Edouard says she is feeling bad. Still with pain in her abdomen. No cp or sob. - Current Medication List Current Medications: Active Medications Albuterol Sulfate (Ventolin 0.083% Nebulizer Soln -) 1 amp NEB Q6H PRN PRN Reason: SHORT OF BREATH/WHEEZING Last Admin: 01/23/17 21:09 Dose: 1 amp Alprazolam (Xanax -) 1 mg PO BID [facility] Last Admin: 01/24/17 11:36 Dose: 1 mg Enoxaparin Sodium (Lovenox -) 40 mg SQ DAILY [facility] Gabapentin (Neurontin -) 800 mg PO TID [facility] Last Admin: 01/24/17 05:49 Dose: 800 mg Sodium Chloride (Normal Saline -) 1,000 mls @ 75 mls/hr IV ASDIR [facility] Last Admin: 01/24/17 09:16 Dose: 75 mls/hr Pantoprazole Sodium (Protonix 40mg Ivpb (Pre-Docked)) 100 mls @ 200 mls/hr IVPB DAILY [facility] Last Admin: 01/24/17 09:14 Dose: 200 mls/hr Piperacillin Sod/Tazobactam Sod (Zosyn 4.5gm Ivpb (Pre-Docked)) 100 mls @ 200 mls/hr IVPB Q8H-IV [facility] PRN Reason: Protocol Last Admin: 01/24/17 09:15 Dose: 200 mls/hr Insulin Aspart (Novolog Vial Sliding Scale -) 1 vial SQ TIDAC [facility]I PRN Reason: Protocol Last Admin: 01/24/17 11:37 Dose: 4 unit Insulin Aspart (Novolog Vial Sliding Scale -) 1 vial SQ HS [facility]I PRN Reason: Protocol Lorazepam (Ativan Injection -) 0.5 mg IVPUSH BID PRN PRN Reason: ANXIETY Metoprolol Tartrate (Lopressor Injection -) 5 mg IVPB Q4H PRN PRN Reason: HYPERTENSION Morphine Sulfate (Morphine Injection -) 2 mg IVPUSH Q3H PRN PRN Reason: PAIN Last Admin: 01/24/17 10:18 Dose: 2 mg Ondansetron HCl (Zofran Injection) 4 mg IVPB Q6H PRN PRN Reason: NAUSEA Last Admin: 01/23/17 10:44 Dose: 4 mg - Objective Vital Signs: Vital Signs Temperature 98.7 F 01/24/17 08:15 Pulse Rate 56 L 01/24/17 08:15 Respiratory Rate 16 01/24/17 08:15 Blood Pressure 101/67 01/24/17 08:15 O2 Sat by Pulse Oximetry (%) 98 01/24/17 09:00 Constitutional: Yes: Mild Distress, Other (lethargic) Cardiovascular: Yes: Regular Rate and Rhythm. No: Gallop, Murmur, Rub Respiratory: Yes: Regular, CTA Bilaterally. No: Rales, Rhonchi, Wheezes Gastrointestinal: Yes: Soft, Hypoactive Bowel Sounds, Tenderness. No: Distention Extremities: Yes: WNL Edema: No Labs: CBC, BMP 01/24/17 08:15 01/24/17 08:15 Assessment/Plan (1) Acute diverticulitis of intestine Assessment/Plan: -case d/w ID and surgery -continue antibiotics -planning for CT scan tomorrow to evaluate further change -change to dilaudid for better pain control Code(s): K57.92 - DVTRCLI OF INTEST, PART UNSP, W/O PERF OR ABSCESS W/O BLEED (2) CAD (coronary artery disease) Assessment/Plan: -cardiology consulted and note reviewed Code(s): I25.10 - ATHSCL HEART DISEASE OF [place] CORONARY ARTERY W/O ANG PCTRS Qualifiers: Coronary Disease-Associated Artery/Lesion type: [place] artery [place] vs. transplanted heart: [place] heart Associated angina: without angina Qualified Code(s): I25.10 - Atherosclerotic heart disease of [place] coronary artery without angina pectoris (3) CHF (congestive heart failure), NYHA class I Assessment/Plan -continue IVF -cardiology following Code(s): I50.9 - HEART FAILURE, UNSPECIFIED Qualifiers: Congestive heart failure type: systolic Congestive heart failure chronicity: chronic Qualified Code(s): I50.22 - Chronic systolic ( congestive) heart failure (4) COPD (chronic obstructive pulmonary disease) Assessment/Plan: -pulmonary following -continue bronchodilators Code(s): J44.9 - CHRONIC OBSTRUCTIVE PULMONARY DISEASE, UNSPECIFIED Qualifiers : COPD type: unspecified COPD Qualified Code(s): J44.9 - Chronic obstructive pulmonary disease, unspecified (5) Diabetes mellitus Assessment/Plan: -endocrinology following and managing Code(s): E11.9 - TYPE 2 DIABETES MELLITUS WITHOUT COMPLICATIONS Qualifiers: Diabetes mellitus type: type 2 Diabetes mellitus complication status: without complication (6) Single implantable cardioverter-defibrillator (ICD) in situ Assessment/Plan: -per cardiology Code(s): Z95.810 - PRESENCE OF AUTOMATIC (IMPLANTABLE) CARDIAC DEFIBRILLATOR (7) Hypertension Assessment/Plan: -low normal Code(s): I10 - ESSENTIAL (PRIMARY) HYPERTENSION Qualifiers: Hypertension type: essential hypertension Qualified Code(s): I10 - Essential (primary) hypertension (8) Anxiety Assessment/Plan: -monitor, patient is receiving narcotics Code(s): F41.9 - ANXIETY DISORDER, UNSPECIFIED
--- NOTE | 2017-01-24 14:41 | PN ---
Progress Note, Physician History of Present Illness: patient is complainin of increased abd pain very tender when palpated according to her no rebound note no guarding noted patient very uncomfortable - Current Medication List Current Medications: Active Medications Albuterol Sulfate (Ventolin 0.083% Nebulizer Soln -) 1 amp NEB Q6H PRN PRN Reason: SHORT OF BREATH/WHEEZING Last Admin: 01/23/17 21:09 Dose: 1 amp Alprazolam (Xanax -) 1 mg PO BID [facility] Last Admin: 01/24/17 11:36 Dose: 1 mg Enoxaparin Sodium (Lovenox -) 40 mg SQ DAILY [facility] Gabapentin (Neurontin -) 800 mg PO TID [facility] Last Admin: 01/24/17 13:58 Dose: 800 mg Sodium Chloride (Normal Saline -) 1,000 mls @ 75 mls/hr IV ASDIR [facility] Last Admin: 01/24/17 09:16 Dose: 75 mls/hr Pantoprazole Sodium (Protonix 40mg Ivpb (Pre-Docked)) 100 mls @ 200 mls/hr IVPB DAILY [facility] Last Admin: 01/24/17 09:14 Dose: 200 mls/hr Piperacillin Sod/Tazobactam Sod (Zosyn 4.5gm Ivpb (Pre-Docked)) 100 mls @ 200 mls/hr IVPB Q8H-IV [facility]I PRN Reason: Protocol Last Admin: 01/24/17 09:15 Dose: 200 mls/hr Insulin Aspart (Novolog Vial Sliding Scale -) 1 vial SQ TIDAC GABI PRN Reason: Protocol Last Admin: 01/24/17 11:37 Dose: 4 unit Insulin Aspart (Novolog Vial Sliding Scale -) 1 vial SQ HS [facility]ABI PRN Reason: Protocol Lorazepam (Ativan Injection -) 0.5 mg IVPUSH BID PRN PRN Reason: ANXIETY Metoprolol Tartrate (Lopressor Injection -) 5 mg IVPB Q4H PRN PRN Reason: HYPERTENSION Morphine Sulfate (Morphine Injection -) 2 mg IVPUSH Q3H PRN PRN Reason: PAIN Last Admin: 01/24/17 10:18 Dose: 2 mg Ondansetron HCl (Zofran Injection) 4 mg IVPB Q6H PRN PRN Reason: NAUSEA Last Admin: 01/23/17 10:44 Dose: 4 mg - Objective Vital Signs: Vital Signs Temperature 98.7 F 01/24/17 08:15 Pulse Rate 56 L 01/24/17 08:15 Respiratory Rate 16 01/24/17 08:15 Blood Pressure 101/67 01/24/17 08:15 O2 Sat by Pulse Oximetry (%) 98 01/24/17 09:00 Constitutional: Yes: Calm, Moderate Distress Eyes: Yes: Conjunctiva Clear Neck: Yes: Supple, Trachea Midline Cardiovascular: Yes: Regular Rate and Rhythm Respiratory: Yes: Regular, CTA Bilaterally Gastrointestinal: Yes: Tenderness (diffuse), Other (absent bowel sounds) Musculoskeletal: Yes: WNL Extremities: Yes: WNL Neurological: Yes: Alert, Oriented Psychiatric: Yes: Alert, Oriented Labs: CBC, BMP 01/24/17 08:15 01/24/17 08:15 Assessment/Plan diverticulitis colitis hyperglycemia plan continue npo continue abx hydration close monitoring repeat imaging studies probably tomorrow
--- NOTE | 2017-01-24 16:55 | PN ---
Progress Note, Physician Chief Complaint: LLQ pain History of Present Illness: Pt seen and examined in bed. Pt still complains of pain in abdomen, states pain medication is a little better than initially, but does not really relieve pain enough to get up and move around. She is trying not to go to bathroom, because getting up hurts so much. She appears more comfortable than last night, but is still uncomfortable with the pain. Breathing is ok, but there is still audible wheezing. She is voiding. No nausea or vomiting. - Current Medication List Current Medications: Active Medications Albuterol Sulfate (Ventolin 0.083% Nebulizer Soln -) 1 amp NEB Q6H PRN PRN Reason: SHORT OF BREATH/WHEEZING Last Admin: 01/23/17 21:09 Dose: 1 amp Alprazolam (Xanax -) 1 mg PO BID [facility] Last Admin: 01/24/17 11:36 Dose: 1 mg Enoxaparin Sodium (Lovenox -) 40 mg SQ DAILY [facility] Gabapentin (Neurontin -) 800 mg PO TID [facility] Last Admin: 01/24/17 13:58 Dose: 800 mg Hydromorphone HCl (Dilaudid Injection -) 1 mg IVPB Q4H PRN PRN Reason: PAIN Sodium Chloride (Normal Saline -) 1,000 mls @ 75 mls/hr IV ASDIR [facility] Last Admin: 01/24/17 09:16 Dose: 75 mls/hr Pantoprazole Sodium (Protonix 40mg Ivpb (Pre-Docked)) 100 mls @ 200 mls/hr IVPB DAILY [facility] Last Admin: 01/24/17 09:14 Dose: 200 mls/hr Piperacillin Sod/Tazobactam Sod (Zosyn 4.5gm Ivpb (Pre-Docked)) 100 mls @ 200 mls/hr IVPB Q8H-IV [facility] PRN Reason: Protocol Last Admin: 01/24/17 09:15 Dose: 200 mls/hr Insulin Aspart (Novolog Vial Sliding Scale -) 1 vial SQ TIDAC [facility] PRN Reason: Protocol Last Admin: 01/24/17 11:37 Dose: 4 unit Insulin Aspart (Novolog Vial Sliding Scale -) 1 vial SQ HS [facility] PRN Reason: Protocol Lorazepam (Ativan Injection -) 0.5 mg IVPUSH BID PRN PRN Reason: ANXIETY Metoprolol Tartrate (Lopressor Injection -) 5 mg IVPB Q4H PRN PRN Reason: HYPERTENSION Ondansetron HCl (Zofran Injection) 4 mg IVPB Q6H PRN PRN Reason: NAUSEA Last Admin: 01/23/17 10:44 Dose: 4 mg - Objective Vital Signs: Vital Signs Temperature 97.1 F L 01/24/17 14:56 Pulse Rate 77 01/24/17 14:56 Respiratory Rate 16 01/24/17 08:15 Blood Pressure 101/67 01/24/17 08:15 O2 Sat by Pulse Oximetry (%) 98 01/24/17 09:00 Constitutional: Yes: Calm, Mild Distress, Obese Eyes: Yes: Conjunctiva Clear. No: Sclera Icterus Cardiovascular: Yes: Regular Rate and Rhythm. No: Murmur Respiratory: Yes: Regular, Wheezes (diffuse bilateral expiratory, audible). No : On Nasal O2 (fell on floor) Gastrointestinal: Yes: Soft, Abdomen, Obese, Hypoactive Bowel Sounds, Tenderness (mostly LLQ and suprapubic but also RLQ, LUQ, in midline - no rebound or guarding) Neurological: Yes: Alert, Oriented Labs: CBC, BMP 01/24/17 08:15 01/24/17 08:15 Problem List - Problems (1) Diverticulitis large intestine w/o perforation or abscess w/o bleeding Assessment/Plan: sigmoid diverticulitis- not clear if locules of air are actually extraluminal or in tics; no abscess or free perforation noted on CT overall stable, pain management is main issue IV antibiotics per ID NPO except essential meds with sips H2O, IVF - until NO pain and NO tenderness pain meds prn - consider adjustments given home use of oxycodone on regular basis for back pain trend labs - wbc ok too early to repeat imaging yesterday discussed potential need for surgery with patient and family at bedside - pt would be high risk related to cardiac and pulmonary status for OR under general anesthesia, and operation would likely mean laparotomy with almost certain colostomy, if pt's clinical status deteriorated quickly or there was evidence of gross perforation Pt understands and would like to avoid OR if at all possible will continue to follow Code(s): K57.32 - DVTRCLI OF LG INT W/O PERFORATION OR ABSCESS W/O BLEEDING (2) CAD (coronary artery disease) Assessment/Plan: cardio on board Code(s): I25.10 - ATHSCL HEART DISEASE OF [place] CORONARY ARTERY W/O ANG PCTRS Qualifiers: Coronary Disease-Associated Artery/Lesion type: [place] artery [place] vs. transplanted heart: [place] heart Associated angina: without angina Qualified Code(s): I25.10 - Atherosclerotic heart disease of [place] coronary artery without angina pectoris (3) CHF (congestive heart failure), NYHA class I Assessment/Plan: cardio on board Code(s): I50.9 - HEART FAILURE, UNSPECIFIED Qualifiers: Congestive heart failure type: systolic Congestive heart failure chronicity: chronic Qualified Code(s): I50.22 - Chronic systolic ( congestive) heart failure (4) COPD (chronic obstructive pulmonary disease) Assessment/Plan: actively wheezing on NC O2 nebs ordered prn pulmonary consulted Code(s): J44.9 - CHRONIC OBSTRUCTIVE PULMONARY DISEASE, UNSPECIFIED Qualifiers : COPD type: unspecified COPD Qualified Code(s): J44.9 - Chronic obstructive pulmonary disease, unspecified (5) Constipation Assessment/Plan: pt on oxycodone 5mg tid at home for back pain uses dulcolax occasionally at home recommend bowel regimen on discharge Code(s): K59.00 - CONSTIPATION, UNSPECIFIED Qualifiers: Constipation type: drug induced constipation Qualified Code(s): K59.03 - Drug induced constipation (6) Diabetes mellitus Assessment/Plan: insulin sliding scale while npo pt may benefit from nutrition/dietary education - still consuming sugared foods at home Code(s): E11.9 - TYPE 2 DIABETES MELLITUS WITHOUT COMPLICATIONS Qualifiers: Diabetes mellitus type: type 2 Diabetes mellitus complication status: with hyperglycemia Diabetes mellitus longterm insulin use: without longterm use Qualified Code(s): E11.65 - Type 2 diabetes mellitus with hyperglycemia; Z79.4 - custodial (current) use of insulin (7) Single implantable cardioverter-defibrillator (ICD) in situ Code(s): Z95.810 - PRESENCE OF AUTOMATIC (IMPLANTABLE) CARDIAC DEFIBRILLATOR (8) Status post insertion of drug-eluting stent into left anterior descending artery for coronary artery disease Assessment/Plan: cardio on board Code(s): Z98.61 - CORONARY ANGIOPLASTY STATUS (9) Status post myocardial infarction of anterior wall Code(s): I25.2 - OLD MYOCARDIAL INFARCTION (10) Anxiety Assessment/Plan: continuing home meds Pt uses e-cigarettes - consider nicotine patch and cessation resources Code(s): F41.9 - ANXIETY DISORDER, UNSPECIFIED (11) Sleep apnea Assessment/Plan: CPAP at home - not using regularly consider CPAP while in hospital Code(s): G47.30 - SLEEP APNEA, UNSPECIFIED Qualifiers: Sleep apnea type: obstructive Qualified Code(s): G47.33 - Obstructive sleep apnea (adult) (pediatric)
[2017-01-24] MEDS: HYDROmorphone HCL CARPU-JECT 1 MG/1 ML DISP.SYRIN IVPB PRN ×2 (17:52→22:27)
[2017-01-24] MEDS: ENOXAPARIN NA (PORCINE) 40 MG/0.4 ML DISP.SYRIN SQ SCH (21:05)
[2017-01-25] MEDS: LORAZEPAM CARPU-JECT 2 MG/ML DISP.SYRIN IVPUSH PRN (01:32)
[2017-01-25] MEDS: HYDROmorphone HCL CARPU-JECT 1 MG/1 ML DISP.SYRIN IVPB PRN ×6 (02:32→21:57)
[2017-01-25] MEDS: PIPERACILLIN/TAZOB 4.5 GM 100 ML IVPB SCH ×3 (02:48→17:43)
[2017-01-25] MEDS: GABAPENTIN 400 MG CAPSULE (FP) PO SCH ×3 (05:57→21:53)
[2017-01-25] MEDS: INSULIN SLIDING SCALE (NOVOLOG) 1 VIAL SQ SCH ×4 (06:00→21:54)
[2017-01-25 07:18] LABS: BASOPHIL 0.4 % (0-2.0); EOSINOPHIL 3.5 % (0-4.5); MCH 32.5 pg (25.7-33.7); MCHC 34.1 g/dl (32.0-36.0); MEAN CELL VOLUME 95.4 fl (80-96); MEAN PLT VOLUME 7.3 fl (7.5-11.1); NEUTROPHILS 60.3 % (42.8-82.8); PLATELET COUNT 180 K/MM3 (134-434); RDW 13.6 % (11.6-15.6); WHITE BLOOD COUNT 6.3 K/mm3 (4.0-10.0)
[2017-01-25 08:00] LABS: ALBUMIN 3.1 g/dl (3.4-5.0); ANION GAP 5 (8-16); BILIRUBIN,TOTAL 0.6 mg/dL (0.2-1.0); CO2 31 mmol/L (21-32); CREATININE 0.7 mg/dL (0.55-1.02); GLUCOSE,RANDOM 124 mg/dL (74-106); MAGNESIUM 1.7 mg/dL (1.8-2.4); SGOT/AST 37 U/L (15-37); SGPT/ALT 51 U/L (12-78); TOT PROT 5.7 g/dl (6.4-8.2)
[2017-01-25 08:01] LABS: ALK PHOS 114 U/L (45-117)
[2017-01-25] MEDS: ALPRAZolam 2 MG TABLET PO SCH ×2 (09:14→21:53)
[2017-01-25] MEDS: ENOXAPARIN NA (PORCINE) 40 MG/0.4 ML DISP.SYRIN SQ SCH (09:14)
[2017-01-25] MEDS: PANTOPRAZOLE SODIUM 100 ML IVPB SCH (09:15)
--- NOTE | 2017-01-25 10:08 | PN ---
Progress Note (short form) - Note Progress Note: Still with abd pain, Now more on the left lower quadrant BGM acceptable Vital Signs Period Temp Pulse Resp BP Sys/Riley Pulse Ox Last 24 Hr 97.1 F-98.4 F 51-77 16-18 97-117/56-67 98-98 PE: AOx2 Neck: Supple, No JVD HEENT: EOMI Lungs: CTA CVS: S1S2 Abd: soft, BS present. diffuse tenderness EXt: No edema Neuro: No focal deficit CBC,CMP WBC 6.3 K/mm3 (4.0-10.0) 01/25/17 05:35 RBC 3.55 M/mm3 (3.60-5.2) L 01/25/17 05:35 Hgb 11.6 GM/dL (10.7-15.3) 01/25/17 05:35 Hct 33.9 % (32.4-45.2) 01/25/17 05:35 MCV 95.4 fl (80-96) 01/25/17 05:35 MCH 32.5 pg (25.7-33.7) 01/25/17 05:35 MCHC 34.1 g/dl (32.0-36.0) 01/25/17 05:35 RDW 13.6 % (11.6-15.6) 01/25/17 05:35 Plt Count 180 K/MM3 (134-434) 01/25/17 05:35 MPV 7.3 fl (7.5-11.1) L 01/25/17 05:35 Neutrophils % 60.3 % (42.8-82.8) 01/25/17 05:35 Lymphocytes % 29.5 % (8-40) D 01/25/17 05:35 Monocytes % 6.3 % (3.8-10.2) 01/25/17 05:35 Eosinophils % 3.5 % (0-4.5) 01/25/17 05:35 Basophils % 0.4 % (0-2.0) 01/25/17 05:35 ESR 20 mm/hr (0-30) 01/24/17 08:15 Sodium 143 mmol/L (136-145) 01/25/17 05:35 Potassium 4.1 mmol/L (3.5-5.1) 01/25/17 05:35 Chloride 107 mmol/L (98-107) 01/25/17 05:35 Carbon Dioxide 31 mmol/L (21-32) 01/25/17 05:35 Anion Gap 5 (8-16) L 01/25/17 05:35 BUN 7 mg/dL (7-18) 01/25/17 05:35 Creatinine 0.7 mg/dL (0.55-1.02) 01/25/17 05:35 Creat Clearance w eGFR > 60 (>60) 01/25/17 05:35 POC Glucometer 140 UNITS (()) 01/25/17 05:55 Random Glucose 124 mg/dL (74-106) H D 01/25/17 05:35 Calcium 8.0 mg/dL (8.5-10.1) L 01/25/17 05:35 Phosphorus 3.0 mg/dL (2.5-4.9) D 01/25/17 05:35 Magnesium 1.7 mg/dL (1.8-2.4) L 01/25/17 05:35 Total Bilirubin 0.6 mg/dL (0.2-1.0) 01/25/17 05:35 AST 37 U/L (15-37) D 01/25/17 05:35 ALT 51 U/L (12-78) 01/25/17 05:35 Alkaline Phosphatase 114 U/L (45-117) 01/25/17 05:35 Creatine Kinase 50 IU/L (26-192) 01/23/17 00:30 Troponin I < 0.02 ng/ml (0.00-0.05) 01/23/17 00:30 C-Reactive Protein 2.2 MG/DL (0.00-0.3) H 01/24/17 08:15 Total Protein 5.7 g/dl (6.4-8.2) L 01/25/17 05:35 Albumin 3.1 g/dl (3.4-5.0) L 01/25/17 05:35 Total Amylase 26 U/L (25-115) D 01/23/17 00:30 Lipase 131 U/L (73-393) 01/23/17 00:30 Serum , Qual Negative 01/23/17 00:30 Current Medications Generic Name Dose Route Start Last Admin Trade Name Freq PRN Reason Stop Dose Admin Albuterol Sulfate 1 amp 01/23/17 02:52 01/23/17 21:09 Ventolin 0.083% Nebulizer Soln - NEB 1 amp Q6H PRN Administration SHORT OF BREATH/WHEEZING Alprazolam 1 mg 01/23/17 10:00 01/25/17 09:14 Xanax - PO 1 mg BID [facility]I Administration Enoxaparin Sodium 40 mg 01/24/17 19:45 01/25/17 09:14 Lovenox - SQ 40 mg DAILY [facility]I Administration Gabapentin 800 mg 01/23/17 06:00 01/25/17 05:57 Neurontin - PO 800 mg TID [facility]I Administration Hydromorphone HCl 1 mg 01/24/17 16:36 01/25/17 06:38 Dilaudid Injection - IVPB 1 mg Q4H PRN Administration PAIN Sodium Chloride 1,000 mls @ 75 mls/hr 01/23/17 03:00 01/24/17 09:16 Normal Saline - IV 75 mls/hr ASDIR GABI Administration Pantoprazole Sodium 100 mls @ 200 mls/hr 01/23/17 13:30 01/25/17 09:15 Protonix 40mg Ivpb (Pre-Docked) IVPB 200 mls/hr DAILY [facility]I Administration Piperacillin Sod/Tazobactam Sod 100 mls @ 200 mls/hr 01/24/17 02:00 01/25/17 09 :15 Zosyn 4.5gm Ivpb (Pre-Docked) IVPB 200 mls/hr Q8H-IV [facility]I Administration Protocol Insulin Aspart 1 vial 01/23/17 16:30 01/25/17 06:00 Novolog Vial Sliding Scale - SQ Not Given TIDAC [facility]ABI Protocol Insulin Aspart 1 vial 01/24/17 22:00 01/24/17 21:06 Novolog Vial Sliding Scale - SQ Not Given HS GABI Protocol Lorazepam 0.5 mg 01/23/17 13:25 01/25/17 01:32 Ativan Injection - IVPUSH 0.5 mg BID PRN Administration ANXIETY Metoprolol Tartrate 5 mg 01/23/17 13:24 Lopressor Injection - IVPB Q4H PRN HYPERTENSION Ondansetron HCl 4 mg 01/23/17 02:49 01/23/17 10:44 Zofran Injection IVPB 4 mg Q6H PRN Administration NAUSEA AP: Abd pain/Sigmoid Diverticulitis DM Uncontrolled COPD CHF ICD implant BGM acceptable, FS of > 200 yesterday probably as it was done after Zosyn IVPB Pt is NPO No long acting Insulin for now BGM QACHS Off Metformin for now b/o GI symptoms Novolog SS coverage IV abx GI, ID and surgery consult noted
[2017-01-25] MEDS: ALBUTEROL SO4 0.083% IH SOL 2.5 MG/3 ML VIAL.NEB. NEB PRN (10:30)
--- NOTE | 2017-01-25 12:40 | PN ---
Progress Note, Physician Chief Complaint: LLQ pain History of Present Illness: Pt still with LLQ pain, about the same. Has been getting up to use bathroom but not walking much otherwise. Breathing is better with neb treatments, getting one now. No n/v. No fever. - Current Medication List Current Medications: Active Medications Albuterol Sulfate (Ventolin 0.083% Nebulizer Soln -) 1 amp NEB Q6H PRN PRN Reason: SHORT OF BREATH/WHEEZING Last Admin: 01/25/17 10:30 Dose: 1 amp Alprazolam (Xanax -) 1 mg PO BID [facility] Last Admin: 01/25/17 09:14 Dose: 1 mg Enoxaparin Sodium (Lovenox -) 40 mg SQ DAILY [facility] Last Admin: 01/25/17 09:14 Dose: 40 mg Gabapentin (Neurontin -) 800 mg PO TID [facility] Last Admin: 01/25/17 05:57 Dose: 800 mg Hydromorphone HCl (Dilaudid Injection -) 1 mg IVPB Q4H PRN PRN Reason: PAIN Last Admin: 01/25/17 10:15 Dose: 1 mg Sodium Chloride (Normal Saline -) 1,000 mls @ 75 mls/hr IV ASDIR [facility]I Last Admin: 01/24/17 09:16 Dose: 75 mls/hr Pantoprazole Sodium (Protonix 40mg Ivpb (Pre-Docked)) 100 mls @ 200 mls/hr IVPB DAILY [facility] Last Admin: 01/25/17 09:15 Dose: 200 mls/hr Piperacillin Sod/Tazobactam Sod (Zosyn 4.5gm Ivpb (Pre-Docked)) 100 mls @ 200 mls/hr IVPB Q8H-IV [facility]I PRN Reason: Protocol Last Admin: 01/25/17 09:15 Dose: 200 mls/hr Insulin Aspart (Novolog Vial Sliding Scale -) 1 vial SQ TIDAC [facility]I PRN Reason: Protocol Last Admin: 01/25/17 06:00 Dose: Not Given Insulin Aspart (Novolog Vial Sliding Scale -) 1 vial SQ HS [facility]I PRN Reason: Protocol Last Admin: 01/24/17 21:06 Dose: Not Given Lorazepam (Ativan Injection -) 0.5 mg IVPUSH BID PRN PRN Reason: ANXIETY Last Admin: 01/25/17 01:32 Dose: 0.5 mg Metoprolol Tartrate (Lopressor Injection -) 5 mg IVPB Q4H PRN PRN Reason: HYPERTENSION Ondansetron HCl (Zofran Injection) 4 mg IVPB Q6H PRN PRN Reason: NAUSEA Last Admin: 01/23/17 10:44 Dose: 4 mg - Objective Vital Signs: Vital Signs Temperature 98.4 F 01/25/17 06:00 Pulse Rate 58 L 01/25/17 06:00 Respiratory Rate 18 01/25/17 06:00 Blood Pressure 110/63 01/25/17 06:00 O2 Sat by Pulse Oximetry (%) 98 01/24/17 21:00 Intake & Output 01/24/17 01/25/17 01/25/17 23:59 07:59 15:59 Intake Total 1100 1200 0 Balance 1100 1200 0 Intake: IV 850 900 Normal Saline - 1,000 ml 850 900 @ 75 mls/hr IV ASDIR GABI Rx#:[id number] IVPB 250 300 Oral 0 Other: Voiding Method Toilet Toilet # Unmeasured Voids Void 3 Constitutional: Yes: No Distress, Calm, Obese Cardiovascular: Yes: Regular Rate and Rhythm Respiratory: Yes: Regular, Rhonchi (few on left), Wheezes (much less, R>L end- expiratory (just finished neb treatment)). No: On Nasal O2 (just finished neb treatment) Gastrointestinal: Yes: Soft, Abdomen, Obese, Hypoactive Bowel Sounds, Tenderness (LLQ and suprapubic mainly, also some referred to LLQ from RLQ and LUQ, no R/G) Neurological: Yes: Alert, Oriented Labs: CBC, BMP 01/25/17 05:35 01/25/17 05:35 CMP Sodium 143 mmol/L (136-145) 01/25/17 05:35 Potassium 4.1 mmol/L (3.5-5.1) 01/25/17 05:35 Chloride 107 mmol/L (98-107) 01/25/17 05:35 Carbon Dioxide 31 mmol/L (21-32) 01/25/17 05:35 Anion Gap 5 (8-16) L 01/25/17 05:35 BUN 7 mg/dL (7-18) 01/25/17 05:35 Creatinine 0.7 mg/dL (0.55-1.02) 01/25/17 05:35 Creat Clearance w eGFR > 60 (>60) 01/25/17 05:35 POC Glucometer 140 UNITS (()) 01/25/17 05:55 Random Glucose 124 mg/dL (74-106) H D 01/25/17 05:35 Calcium 8.0 mg/dL (8.5-10.1) L 01/25/17 05:35 Phosphorus 3.0 mg/dL (2.5-4.9) D 01/25/17 05:35 Magnesium 1.7 mg/dL (1.8-2.4) L 01/25/17 05:35 Total Bilirubin 0.6 mg/dL (0.2-1.0) 01/25/17 05:35 AST 37 U/L (15-37) D 01/25/17 05:35 ALT 51 U/L (12-78) 01/25/17 05:35 Alkaline Phosphatase 114 U/L (45-117) 01/25/17 05:35 Creatine Kinase 50 IU/L (26-192) 01/23/17 00:30 Troponin I < 0.02 ng/ml (0.00-0.05) 01/23/17 00:30 C-Reactive Protein 1.8 MG/DL (0.00-0.3) H D 01/25/17 05:35 Total Protein 5.7 g/dl (6.4-8.2) L 01/25/17 05:35 Albumin 3.1 g/dl (3.4-5.0) L 01/25/17 05:35 Total Amylase 26 U/L (25-115) D 01/23/17 00:30 Lipase 131 U/L (73-393) 01/23/17 00:30 Serum , Qual Negative 01/23/17 00:30 Problem List - Problems (1) Diverticulitis large intestine w/o perforation or abscess w/o bleeding Assessment/Plan: sigmoid diverticulitis- not clear if locules of air are actually extraluminal or in tics; no abscess or free perforation noted on CT overall stable, pain management is main issue IV antibiotics per ID NPO except essential meds with sips H2O, IVF - until NO pain and NO tenderness pain meds prn trend labs - wbc ok respiratory status improved - wheezing is much less this am and she reports subjective improvement too early to repeat imaging Code(s): K57.32 - DVTRCLI OF LG INT W/O PERFORATION OR ABSCESS W/O BLEEDING (2) CAD (coronary artery disease) Assessment/Plan: cardio on board Code(s): I25.10 - ATHSCL HEART DISEASE OF [place] CORONARY ARTERY W/O ANG PCTRS Qualifiers: Coronary Disease-Associated Artery/Lesion type: [place] artery [place] vs. transplanted heart: [place] heart Associated angina: without angina Qualified Code(s): I25.10 - Atherosclerotic heart disease of [place] coronary artery without angina pectoris (3) CHF (congestive heart failure), NYHA class I Assessment/Plan: cardio on board Code(s): I50.9 - HEART FAILURE, UNSPECIFIED Qualifiers: Congestive heart failure type: systolic Congestive heart failure chronicity: chronic Qualified Code(s): I50.22 - Chronic systolic ( congestive) heart failure (4) COPD (chronic obstructive pulmonary disease) Assessment/Plan: wheezing much less on NC O2 at times nebs ordered prn pulmonary consulted Code(s): J44.9 - CHRONIC OBSTRUCTIVE PULMONARY DISEASE, UNSPECIFIED Qualifiers : COPD type: unspecified COPD Qualified Code(s): J44.9 - Chronic obstructive pulmonary disease, unspecified (5) Constipation Assessment/Plan: pt on oxycodone 5mg tid at home for back pain uses dulcolax occasionally at home recommend bowel regimen on discharge Code(s): K59.00 - CONSTIPATION, UNSPECIFIED Qualifiers: Constipation type: drug induced constipation Qualified Code(s): K59.03 - Drug induced constipation (6) Diabetes mellitus Assessment/Plan: insulin sliding scale while npo pt may benefit from nutrition/dietary education - still consuming sugared foods at home Code(s): E11.9 - TYPE 2 DIABETES MELLITUS WITHOUT COMPLICATIONS Qualifiers: Diabetes mellitus type: type 2 Diabetes mellitus complication status: with hyperglycemia Diabetes mellitus media liaison officer insulin use: without media liaison officer use Qualified Code(s): E11.65 - Type 2 diabetes mellitus with hyperglycemia; Z79.4 - FPC (current) use of insulin (7) Single implantable cardioverter-defibrillator (ICD) in situ Code(s): Z95.810 - PRESENCE OF AUTOMATIC (IMPLANTABLE) CARDIAC DEFIBRILLATOR (8) Status post insertion of drug-eluting stent into left anterior descending artery for coronary artery disease Assessment/Plan: cardio on board Code(s): Z98.61 - CORONARY ANGIOPLASTY STATUS (9) Status post myocardial infarction of anterior wall Code(s): I25.2 - OLD MYOCARDIAL INFARCTION (10) Anxiety Assessment/Plan: continuing home meds Pt uses e-cigarettes - consider nicotine patch and cessation resources Code(s): F41.9 - ANXIETY DISORDER, UNSPECIFIED (11) Sleep apnea Assessment/Plan: pulm on board Code(s): G47.30 - SLEEP APNEA, UNSPECIFIED Qualifiers: Sleep apnea type: obstructive Qualified Code(s): G47.33 - Obstructive sleep apnea (adult) (pediatric)
--- NOTE | 2017-01-25 14:05 | PN ---
Progress Note, Physician Chief Complaint: Events noted Complains of diffuse abdominal pain History of Present Illness: Patient was seen and examined. Awake and alert. Chart was reviewed Denies chest pain, SOB or palpitations Diffuse abdominal pain Surgery input noted - Current Medication List Current Medications: Active Medications Albuterol Sulfate (Ventolin 0.083% Nebulizer Soln -) 1 amp NEB Q6H PRN PRN Reason: SHORT OF BREATH/WHEEZING Last Admin: 01/25/17 10:30 Dose: 1 amp Alprazolam (Xanax -) 1 mg PO BID [facility] Last Admin: 01/25/17 09:14 Dose: 1 mg Enoxaparin Sodium (Lovenox -) 40 mg SQ DAILY [facility] Last Admin: 01/25/17 09:14 Dose: 40 mg Gabapentin (Neurontin -) 800 mg PO TID [facility] Last Admin: 01/25/17 05:57 Dose: 800 mg Hydromorphone HCl (Dilaudid Injection -) 1 mg IVPB Q4H PRN PRN Reason: PAIN Last Admin: 01/25/17 10:15 Dose: 1 mg Sodium Chloride (Normal Saline -) 1,000 mls @ 75 mls/hr IV ASDIR GABI Last Admin: 01/24/17 09:16 Dose: 75 mls/hr Pantoprazole Sodium (Protonix 40mg Ivpb (Pre-Docked)) 100 mls @ 200 mls/hr IVPB DAILY [facility]I Last Admin: 01/25/17 09:15 Dose: 200 mls/hr Piperacillin Sod/Tazobactam Sod (Zosyn 4.5gm Ivpb (Pre-Docked)) 100 mls @ 200 mls/hr IVPB Q8H-IV GABI PRN Reason: Protocol Last Admin: 01/25/17 09:15 Dose: 200 mls/hr Insulin Aspart (Novolog Vial Sliding Scale -) 1 vial SQ TIDAC GABI PRN Reason: Protocol Last Admin: 01/25/17 06:00 Dose: Not Given Insulin Aspart (Novolog Vial Sliding Scale -) 1 vial SQ HS GABI PRN Reason: Protocol Last Admin: 01/24/17 21:06 Dose: Not Given Lorazepam (Ativan Injection -) 0.5 mg IVPUSH BID PRN PRN Reason: ANXIETY Last Admin: 01/25/17 01:32 Dose: 0.5 mg Metoprolol Tartrate (Lopressor Injection -) 5 mg IVPB Q4H PRN PRN Reason: HYPERTENSION Ondansetron HCl (Zofran Injection) 4 mg IVPB Q6H PRN PRN Reason: NAUSEA Last Admin: 01/23/17 10:44 Dose: 4 mg - Objective Vital Signs: Vital Signs Temperature 98.4 F 01/25/17 06:00 Pulse Rate 58 L 01/25/17 06:00 Respiratory Rate 18 01/25/17 06:00 Blood Pressure 110/63 01/25/17 06:00 O2 Sat by Pulse Oximetry (%) 97 01/25/17 09:00 Neck: Yes: Supple Cardiovascular: Yes: Regular Rate and Rhythm, S1, S2 Respiratory: Yes: Diminished Gastrointestinal: Yes: Distention, Tenderness Edema: No Additional Findings/Remarks: Review of Systems Cardiovascular: Denies chest pain, SOB or palpitation Respiratory: denies: Cough or Sputum Production Gastrointestinal: denies: Nausea, Vomiting, Diarrhea, Constipation (+) Abdominal Discomfort Musculoskeletal: No Symptoms Reported Endocrine: No Symptoms Reported Labs: CBC, BMP 01/25/17 05:35 01/25/17 05:35 Problem List - Problems (1) Acute diverticulitis of intestine Code(s): K57.92 - DVTRCLI OF INTEST, PART UNSP, W/O PERF OR ABSCESS W/O BLEED (2) CAD (coronary artery disease) Code(s): I25.10 - ATHSCL HEART DISEASE OF [place] CORONARY ARTERY W/O ANG PCTRS Qualifiers: Coronary Disease-Associated Artery/Lesion type: [place] artery [place] vs. transplanted heart: [place] heart Associated angina: without angina Qualified Code(s): I25.10 - Atherosclerotic heart disease of [place] coronary artery without angina pectoris (3) CHF (congestive heart failure), NYHA class I Code(s): I50.9 - HEART FAILURE, UNSPECIFIED Qualifiers: Congestive heart failure type: systolic Congestive heart failure chronicity: chronic Qualified Code(s): I50.22 - Chronic systolic ( congestive) heart failure (4) COPD (chronic obstructive pulmonary disease) Code(s): J44.9 - CHRONIC OBSTRUCTIVE PULMONARY DISEASE, UNSPECIFIED Qualifiers : COPD type: unspecified COPD Qualified Code(s): J44.9 - Chronic obstructive pulmonary disease, unspecified (5) Diabetes mellitus Code(s): E11.9 - TYPE 2 DIABETES MELLITUS WITHOUT COMPLICATIONS Qualifiers: Diabetes mellitus type: type 2 Diabetes mellitus complication status: with hyperglycemia Diabetes mellitus technician terminal and repeater insulin use: without senior care use Qualified Code(s): E11.65 - Type 2 diabetes mellitus with hyperglycemia; Z79.4 - termite control technician (current) use of insulin (6) Neurocardiogenic syncope Code(s): R55 - SYNCOPE AND COLLAPSE (7) Renal insufficiency Code(s): N28.9 - DISORDER OF KIDNEY AND URETER, UNSPECIFIED (8) Chronic left ventricular systolic dysfunction Code(s): I51.9 - HEART DISEASE, UNSPECIFIED (9) Single implantable cardioverter-defibrillator (ICD) in situ Code(s): Z95.810 - PRESENCE OF AUTOMATIC (IMPLANTABLE) CARDIAC DEFIBRILLATOR (10) Anxiety Code(s): F41.9 - ANXIETY DISORDER, UNSPECIFIED (11) Hyperlipidemia Code(s): E78.5 - HYPERLIPIDEMIA, UNSPECIFIED Qualifiers: Hyperlipidemia type: pure hypercholesterolemia Qualified Code(s): E78.00 - Pure hypercholesterolemia, unspecified; E78.0 - Pure hypercholesterolemia (12) Hypertension Code(s): I10 - ESSENTIAL (PRIMARY) HYPERTENSION Qualifiers: Hypertension type: essential hypertension Qualified Code(s): I10 - Essential (primary) hypertension Assessment/Plan 1. Acute sigmoid diverticulitis ? microperforation 2. CAD S/P PCI/stent, angina pectoris 3. Ischemic cardiomyopathy with history of failure S/P ICD, euvolemic 4. HTN/HCVD 5. Hypercholesterolemia 6. OSAS noncompliant with CPAP 7. History of neurocardiogenic syncope 8. Depression/anxiety/eating disorder 9. Mild COPD 10. Uncontrolled diabetes mellitus PLAN: 1. IVF rescusitation, bowel rest and repeat CT scan to consider further mode of therapy. GI and Surgical input noted 2. Continue IV Lopressor during bowel rest and continue DVT prophylaxis 3. ASA has been held pre-procedure, may proceed from cardiovascular standpoint if clinically warranted for abdominal procedure given absence of symptoms of acute coronary syndrome, decompensated CHF or malignant arrhythmia and may place magnet over ICD during surgery 4. CPAP nightly, bronchodilator and O2 as needed Further plans are to follow Marcus Kemp MD
--- NOTE | 2017-01-25 14:38 | PN ---
Progress Note, Physician History of Present Illness: still continues to have abd pain better than yesterday no new issues surgery note noted - Current Medication List Current Medications: Active Medications Albuterol Sulfate (Ventolin 0.083% Nebulizer Soln -) 1 amp NEB Q6H PRN PRN Reason: SHORT OF BREATH/WHEEZING Last Admin: 01/25/17 10:30 Dose: 1 amp Alprazolam (Xanax -) 1 mg PO BID [facility] Last Admin: 01/25/17 09:14 Dose: 1 mg Enoxaparin Sodium (Lovenox -) 40 mg SQ DAILY [facility] Last Admin: 01/25/17 09:14 Dose: 40 mg Gabapentin (Neurontin -) 800 mg PO TID [facility] Last Admin: 01/25/17 05:57 Dose: 800 mg Hydromorphone HCl (Dilaudid Injection -) 1 mg IVPB Q4H PRN PRN Reason: PAIN Last Admin: 01/25/17 10:15 Dose: 1 mg Sodium Chloride (Normal Saline -) 1,000 mls @ 75 mls/hr IV ASDIR GABI Last Admin: 01/24/17 09:16 Dose: 75 mls/hr Pantoprazole Sodium (Protonix 40mg Ivpb (Pre-Docked)) 100 mls @ 200 mls/hr IVPB DAILY [facility] Last Admin: 01/25/17 09:15 Dose: 200 mls/hr Piperacillin Sod/Tazobactam Sod (Zosyn 4.5gm Ivpb (Pre-Docked)) 100 mls @ 200 mls/hr IVPB Q8H-IV GABI PRN Reason: Protocol Last Admin: 01/25/17 09:15 Dose: 200 mls/hr Insulin Aspart (Novolog Vial Sliding Scale -) 1 vial SQ TIDAC GABI PRN Reason: Protocol Last Admin: 01/25/17 06:00 Dose: Not Given Insulin Aspart (Novolog Vial Sliding Scale -) 1 vial SQ HS GABI PRN Reason: Protocol Last Admin: 01/24/17 21:06 Dose: Not Given Lorazepam (Ativan Injection -) 0.5 mg IVPUSH BID PRN PRN Reason: ANXIETY Last Admin: 01/25/17 01:32 Dose: 0.5 mg Metoprolol Tartrate (Lopressor Injection -) 5 mg IVPB Q4H PRN PRN Reason: HYPERTENSION Ondansetron HCl (Zofran Injection) 4 mg IVPB Q6H PRN PRN Reason: NAUSEA Last Admin: 01/23/17 10:44 Dose: 4 mg - Objective Vital Signs: Vital Signs Temperature 98.1 F 01/25/17 14:25 Pulse Rate 57 L 01/25/17 14:25 Respiratory Rate 18 01/25/17 14:25 Blood Pressure 123/75 01/25/17 14:25 O2 Sat by Pulse Oximetry (%) 97 01/25/17 09:00 Constitutional: Yes: No Distress, Calm Cardiovascular: Yes: Regular Rate and Rhythm Respiratory: Yes: Regular, CTA Bilaterally Gastrointestinal: Yes: Hypoactive Bowel Sounds, Tenderness Musculoskeletal: Yes: WNL Extremities: Yes: WNL Neurological: Yes: Alert, Oriented Labs: CBC, BMP 01/25/17 05:35 01/25/17 05:35 Assessment/Plan diverticulitis colitis hyperglycemia plan continue npo continue abx hydration repeat imaging today
--- NOTE | 2017-01-25 14:59 | PN ---
Progress Note, Physician Chief Complaint: Ms Edouard says she is feeling bad, saying she is still having a lot of pain but now it is in the LLQ of her abdomen. No cp or sob. - Current Medication List Current Medications: Active Medications Albuterol Sulfate (Ventolin 0.083% Nebulizer Soln -) 1 amp NEB Q6H PRN PRN Reason: SHORT OF BREATH/WHEEZING Last Admin: 01/25/17 10:30 Dose: 1 amp Alprazolam (Xanax -) 1 mg PO BID [facility] Last Admin: 01/25/17 09:14 Dose: 1 mg Enoxaparin Sodium (Lovenox -) 40 mg SQ DAILY [facility] Last Admin: 01/25/17 09:14 Dose: 40 mg Gabapentin (Neurontin -) 800 mg PO TID [facility] Last Admin: 01/25/17 05:57 Dose: 800 mg Hydromorphone HCl (Dilaudid Injection -) 1 mg IVPB Q4H PRN PRN Reason: PAIN Last Admin: 01/25/17 10:15 Dose: 1 mg Sodium Chloride (Normal Saline -) 1,000 mls @ 75 mls/hr IV ASDIR GABI Last Admin: 01/24/17 09:16 Dose: 75 mls/hr Pantoprazole Sodium (Protonix 40mg Ivpb (Pre-Docked)) 100 mls @ 200 mls/hr IVPB DAILY [facility] Last Admin: 01/25/17 09:15 Dose: 200 mls/hr Piperacillin Sod/Tazobactam Sod (Zosyn 4.5gm Ivpb (Pre-Docked)) 100 mls @ 200 mls/hr IVPB Q8H-IV GABI PRN Reason: Protocol Last Admin: 01/25/17 09:15 Dose: 200 mls/hr Insulin Aspart (Novolog Vial Sliding Scale -) 1 vial SQ TIDAC GABI PRN Reason: Protocol Last Admin: 01/25/17 06:00 Dose: Not Given Insulin Aspart (Novolog Vial Sliding Scale -) 1 vial SQ HS GABI PRN Reason: Protocol Last Admin: 01/24/17 21:06 Dose: Not Given Lorazepam (Ativan Injection -) 0.5 mg IVPUSH BID PRN PRN Reason: ANXIETY Last Admin: 01/25/17 01:32 Dose: 0.5 mg Metoprolol Tartrate (Lopressor Injection -) 5 mg IVPB Q4H PRN PRN Reason: HYPERTENSION Ondansetron HCl (Zofran Injection) 4 mg IVPB Q6H PRN PRN Reason: NAUSEA Last Admin: 01/23/17 10:44 Dose: 4 mg - Objective Vital Signs: Vital Signs Temperature 98.1 F 01/25/17 14:25 Pulse Rate 57 L 01/25/17 14:25 Respiratory Rate 18 01/25/17 14:25 Blood Pressure 123/75 01/25/17 14:25 O2 Sat by Pulse Oximetry (%) 97 01/25/17 09:00 Constitutional: Yes: Well Nourished, No Distress, Calm Cardiovascular: Yes: Regular Rate and Rhythm. No: Gallop, Murmur, Rub Respiratory: Yes: Regular, CTA Bilaterally. No: Rales, Rhonchi, Wheezes Gastrointestinal: Yes: Soft, Hypoactive Bowel Sounds, Tenderness (LLQ). No: Distention Extremities: Yes: WNL Edema: No Labs: CBC, BMP 01/25/17 05:35 01/25/17 05:35 Assessment/Plan (1) Acute diverticulitis of intestine Assessment/Plan: -improved today -pain also better controlled -repeat CT scan -continue IV antibiotics Code(s): K57.92 - DVTRCLI OF INTEST, PART UNSP, W/O PERF OR ABSCESS W/O BLEED (2) CAD (coronary artery disease) Assessment/Plan: -cardiology consulted and note reviewed Code(s): I25.10 - ATHSCL HEART DISEASE OF [place] CORONARY ARTERY W/O ANG PCTRS Qualifiers: Coronary Disease-Associated Artery/Lesion type: [place] artery [place] vs. transplanted heart: [place] heart Associated angina: without angina Qualified Code(s): I25.10 - Atherosclerotic heart disease of [place] coronary artery without angina pectoris (3) CHF (congestive heart failure), NYHA class I Assessment/Plan -continue IVF -cardiology following Code(s): I50.9 - HEART FAILURE, UNSPECIFIED Qualifiers: Congestive heart failure type: systolic Congestive heart failure chronicity: chronic Qualified Code(s): I50.22 - Chronic systolic ( congestive) heart failure (4) COPD (chronic obstructive pulmonary disease) Assessment/Plan: -pulmonary following -continue bronchodilators Code(s): J44.9 - CHRONIC OBSTRUCTIVE PULMONARY DISEASE, UNSPECIFIED Qualifiers : COPD type: unspecified COPD Qualified Code(s): J44.9 - Chronic obstructive pulmonary disease, unspecified (5) Diabetes mellitus Assessment/Plan: -endocrinology following and managing Code(s): E11.9 - TYPE 2 DIABETES MELLITUS WITHOUT COMPLICATIONS Qualifiers: Diabetes mellitus type: type 2 Diabetes mellitus complication status: without complication (6) Single implantable cardioverter-defibrillator (ICD) in situ Assessment/Plan: -per cardiology Code(s): Z95.810 - PRESENCE OF AUTOMATIC (IMPLANTABLE) CARDIAC DEFIBRILLATOR (7) Hypertension Assessment/Plan: -low normal Code(s): I10 - ESSENTIAL (PRIMARY) HYPERTENSION Qualifiers: Hypertension type: essential hypertension Qualified Code(s): I10 - Essential (primary) hypertension (8) Anxiety Assessment/Plan: -monitor, patient is receiving narcotics Code(s): F41.9 - ANXIETY DISORDER, UNSPECIFIED
[2017-01-25] MEDS: SODIUM CHLORIDE 1,000 ML IV SCH (17:42)
--- NOTE | 2017-01-25 18:02 | PN ---
Progress Note, Physician Chief Complaint: Gastroenterology History of Present Illness: Diverticulitis - Current Medication List Current Medications: Active Medications Albuterol Sulfate (Ventolin 0.083% Nebulizer Soln -) 1 amp NEB Q6H PRN PRN Reason: SHORT OF BREATH/WHEEZING Last Admin: 01/25/17 10:30 Dose: 1 amp Alprazolam (Xanax -) 1 mg PO BID [facility] Last Admin: 01/25/17 09:14 Dose: 1 mg Enoxaparin Sodium (Lovenox -) 40 mg SQ DAILY [facility] Last Admin: 01/25/17 09:14 Dose: 40 mg Gabapentin (Neurontin -) 800 mg PO TID [facility] Last Admin: 01/25/17 15:22 Dose: 800 mg Hydromorphone HCl (Dilaudid Injection -) 1 mg IVPB Q3H PRN PRN Reason: PAIN Last Admin: 01/25/17 15:25 Dose: 1 mg Sodium Chloride (Normal Saline -) 1,000 mls @ 75 mls/hr IV ASDIR [facility] Last Admin: 01/25/17 17:42 Dose: 75 mls/hr Pantoprazole Sodium (Protonix 40mg Ivpb (Pre-Docked)) 100 mls @ 200 mls/hr IVPB DAILY [facility] Last Admin: 01/25/17 09:15 Dose: 200 mls/hr Piperacillin Sod/Tazobactam Sod (Zosyn 4.5gm Ivpb (Pre-Docked)) 100 mls @ 200 mls/hr IVPB Q8H-IV GABI PRN Reason: Protocol Last Admin: 01/25/17 17:43 Dose: 200 mls/hr Insulin Aspart (Novolog Vial Sliding Scale -) 1 vial SQ TIDAC GABI PRN Reason: Protocol Last Admin: 01/25/17 15:36 Dose: Not Given Insulin Aspart (Novolog Vial Sliding Scale -) 1 vial SQ HS GABI PRN Reason: Protocol Last Admin: 01/24/17 21:06 Dose: Not Given Lorazepam (Ativan Injection -) 0.5 mg IVPUSH BID PRN PRN Reason: ANXIETY Last Admin: 01/25/17 01:32 Dose: 0.5 mg Metoprolol Tartrate (Lopressor Injection -) 5 mg IVPB Q4H PRN PRN Reason: HYPERTENSION Ondansetron HCl (Zofran Injection) 4 mg IVPB Q6H PRN PRN Reason: NAUSEA Last Admin: 01/23/17 10:44 Dose: 4 mg - Objective Vital Signs: Vital Signs Temperature 98.1 F 01/25/17 14:25 Pulse Rate 57 L 01/25/17 14:25 Respiratory Rate 18 01/25/17 14:25 Blood Pressure 123/75 01/25/17 14:25 O2 Sat by Pulse Oximetry (%) 97 01/25/17 09:00 Constitutional: Yes: Well Nourished Eyes: Yes: WNL HENT: Yes: WNL Neck: Yes: WNL Cardiovascular: Yes: WNL, Regular Rate and Rhythm Respiratory: Yes: WNL Gastrointestinal: Yes: Soft, Abdomen, Obese, Hypoactive Bowel Sounds (absent bowel sounds in LLQ), Tenderness Musculoskeletal: Yes: WNL Extremities: Yes: WNL Labs: CBC, BMP 01/25/17 05:35 01/25/17 05:35 - ....Imaging Cat Scan: Pending (Patient returned to unit after receiving oral contrast at time of this exam) Problem List - Problems (1) Acute diverticulitis of intestine Code(s): K57.92 - DVTRCLI OF INTEST, PART UNSP, W/O PERF OR ABSCESS W/O BLEED (2) CAD (coronary artery disease) Code(s): I25.10 - ATHSCL HEART DISEASE OF [place] CORONARY ARTERY W/O ANG PCTRS Qualifiers: Coronary Disease-Associated Artery/Lesion type: [place] artery [place] vs. transplanted heart: [place] heart Associated angina: without angina Qualified Code(s): I25.10 - Atherosclerotic heart disease of [place] coronary artery without angina pectoris (3) Constipation Code(s): K59.00 - CONSTIPATION, UNSPECIFIED Qualifiers: Constipation type: drug induced constipation Qualified Code(s): K59.03 - Drug induced constipation (4) Diabetes mellitus Code(s): E11.9 - TYPE 2 DIABETES MELLITUS WITHOUT COMPLICATIONS Qualifiers: Diabetes mellitus type: type 2 Diabetes mellitus complication status: with hyperglycemia Diabetes mellitus snf insulin use: without long term care administrator use Qualified Code(s): E11.65 - Type 2 diabetes mellitus with hyperglycemia; Z79.4 - half-way (current) use of insulin Assessment/Plan At the time of this exam patient had just returned from radiology for oral contrast administration. Depending on the results of scan will consider advancing her diet. She continues to experience abdominal pain aggravated by palpation 9/10 to LUQ AND LLQ, and 7/10 in remaining quadrants. There is significant hypoactive bowel sounds in all quadrants except in LLQ there an absence of bowel sounds. It is noted that she is receiving Dilaudid IVP for pain periodically at the time of visit as per RN she already had two doses today. Considering that she has an ongoing diverticulitis it is likely that that the narcotics is contributing to the absent bowel sounds. She continues to receive Zosyn , CRP level noted to be declining, now 1.8 and her glucose control has improved ranging from 140 to 106. Plan : CT scan of the abdomen Depending on results will consider advancing diet Follow CRP levels Consider changing pain management to non-narcotic modality
[2017-01-26] MEDS: HYDROmorphone HCL CARPU-JECT 1 MG/1 ML DISP.SYRIN IVPB PRN ×6 (01:33→19:54)
[2017-01-26] MEDS: PIPERACILLIN/TAZOB 4.5 GM 100 ML IVPB SCH ×2 (02:44→10:44)
[2017-01-26] MEDS: GABAPENTIN 400 MG CAPSULE (FP) PO SCH ×3 (05:35→21:12)
[2017-01-26] MEDS: SODIUM CHLORIDE 1,000 ML IV SCH (05:36)
[2017-01-26] MEDS: INSULIN SLIDING SCALE (NOVOLOG) 1 VIAL SQ SCH ×4 (06:43→21:12)
[2017-01-26 06:54] LABS: BASOPHIL 0.3 % (0-2.0); EOSINOPHIL 3.6 % (0-4.5); MCH 32.7 pg (25.7-33.7); MEAN CELL VOLUME 93.4 fl (80-96); MEAN PLT VOLUME 7.6 fl (7.5-11.1); NEUTROPHILS 63.4 % (42.8-82.8); PLATELET COUNT 195 K/MM3 (134-434); RDW 13.4 % (11.6-15.6); WHITE BLOOD COUNT 5.5 K/mm3 (4.0-10.0)
[2017-01-26 07:12] LABS: ANION GAP 9 (8-16); CO2 27 mmol/L (21-32); CREATININE 0.5 mg/dL (0.55-1.02); GLUCOSE,RANDOM 107 mg/dL (74-106); MAGNESIUM 1.7 mg/dL (1.8-2.4); PHOSPHOROUS 2.8 mg/dL (2.5-4.9)
[2017-01-26] MEDS: ENOXAPARIN NA (PORCINE) 40 MG/0.4 ML DISP.SYRIN SQ SCH (10:44)
[2017-01-26] MEDS: ALPRAZolam 2 MG TABLET PO SCH ×2 (10:45→21:12)
[2017-01-26] MEDS ORDERED: PT OWN MED DRAWER 7, Y5N ONE ×2 (10:48→14:17)
[2017-01-26] MEDS: PANTOPRAZOLE SODIUM 100 ML IVPB SCH (10:53)
--- NOTE | 2017-01-26 11:11 | PN ---
GI Progress Note Subjective: GASTROENTEROLOGY FEELS BETTER BUT STILL C/O OF LLQ PAIN CT SCAN REPEATED AND THERE IS EXCELLENT IMPROVEMENT IN THE SIGMOID INFLAMMATION AND NO FREE AIR - Objective Vital Signs: Vital Signs Temperature 98.5 F 01/26/17 06:00 Pulse Rate 63 01/26/17 06:00 Respiratory Rate 20 01/26/17 06:00 Blood Pressure 126/75 01/26/17 06:00 O2 Sat by Pulse Oximetry (%) 97 01/25/17 20:47 Constitutional: Obese Eyes: Yes: Conjunctiva Clear HENT: Yes: Normocephalic Neck: Yes: Supple Cardiovascular: Yes: Regular Rate and Rhythm Respiratory: Yes: Wheezes Gastrointestinal Inspection: Yes: WNL ...Auscultate: Yes: Normoactive Bowel Sounds ...Palpate: Yes: Soft, Other (TENDERNESS LLQ AT TIMES THEN NO TENDERNESS IF DISTRACTED) Extremities: Yes: WNL Labs: CBC, BMP 01/26/17 05:45 01/26/17 05:45 - ....Imaging Cat Scan: Image Reviewed Problem List - Problems (1) Acute diverticulitis of intestine Assessment/Plan: IMPROVEMENT OVERALL, PHYSICAL EXAM NOT RELIABLE CT SCAN BETTER, CRP IMPROVING ADVANCE DIET: FULLS TO LOW RESIDUE(ONE WEEK) THEN HIGH FIBER DIET WITH BENEFIBER BID ANTIBIOTICS PER ID OFFICE FOLLOW UP IN 4 TO 6 WEEKS COLONOSCOPY AT THAT TIME MITZI LOPEZ MD Code(s): K57.92 - DVTRCLI OF INTEST, PART UNSP, W/O PERF OR ABSCESS W/O BLEED (2) CAD (coronary artery disease) Code(s): I25.10 - ATHSCL HEART DISEASE OF [place] CORONARY ARTERY W/O ANG PCTRS Qualifiers: Coronary Disease-Associated Artery/Lesion type: [place] artery [place] vs. transplanted heart: [place] heart Associated angina: without angina Qualified Code(s): I25.10 - Atherosclerotic heart disease of [place] coronary artery without angina pectoris (3) COPD (chronic obstructive pulmonary disease) Code(s): J44.9 - CHRONIC OBSTRUCTIVE PULMONARY DISEASE, UNSPECIFIED Qualifiers : COPD type: unspecified COPD Qualified Code(s): J44.9 - Chronic obstructive pulmonary disease, unspecified (4) Constipation Code(s): K59.00 - CONSTIPATION, UNSPECIFIED Qualifiers: Constipation type: drug induced constipation Qualified Code(s): K59.03 - Drug induced constipation (5) Diabetes mellitus Code(s): E11.9 - TYPE 2 DIABETES MELLITUS WITHOUT COMPLICATIONS Qualifiers: Diabetes mellitus type: type 2 Diabetes mellitus complication status: with hyperglycemia Diabetes mellitus group home insulin use: without technician terminal and repeater use Qualified Code(s): E11.65 - Type 2 diabetes mellitus with hyperglycemia; 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 (6) Renal insufficiency Code(s): N28.9 - DISORDER OF KIDNEY AND URETER, UNSPECIFIED (7) Single implantable cardioverter-defibrillator (ICD) in situ Code(s): Z95.810 - PRESENCE OF AUTOMATIC (IMPLANTABLE) CARDIAC DEFIBRILLATOR (8) Status post insertion of drug-eluting stent into left anterior descending artery for coronary artery disease Code(s): Z98.61 - CORONARY ANGIOPLASTY STATUS (9) Status post myocardial infarction of anterior wall Code(s): I25.2 - OLD MYOCARDIAL INFARCTION (10) Abdominal pain Code(s): R10.9 - UNSPECIFIED ABDOMINAL PAIN Qualifiers: Abdominal location: right upper quadrant Qualified Code(s): R10.11 - Right upper quadrant pain (11) Sleep apnea Code(s): G47.30 - SLEEP APNEA, UNSPECIFIED Qualifiers: Sleep apnea type: obstructive Qualified Code(s): G47.33 - Obstructive sleep apnea (adult) (pediatric)
--- NOTE | 2017-01-26 15:25 | PN ---
Progress Note, Physician History of Present Illness: Pt's abdominal pain decreased. Pt able to lie flat without significant dyspnea. - Current Medication List Current Medications: Active Medications Albuterol Sulfate (Ventolin 0.083% Nebulizer Soln -) 1 amp NEB Q6H PRN PRN Reason: SHORT OF BREATH/WHEEZING Last Admin: 01/25/17 10:30 Dose: 1 amp Alprazolam (Xanax -) 1 mg PO BID [facility] Last Admin: 01/26/17 10:45 Dose: 1 mg Enoxaparin Sodium (Lovenox -) 40 mg SQ DAILY [facility] Last Admin: 01/26/17 10:44 Dose: 40 mg Gabapentin (Neurontin -) 800 mg PO TID [facility] Last Admin: 01/26/17 05:35 Dose: 800 mg Hydromorphone HCl (Dilaudid Injection -) 1 mg IVPB Q3H PRN PRN Reason: PAIN Last Admin: 01/26/17 11:57 Dose: 1 mg Sodium Chloride (Normal Saline -) 1,000 mls @ 75 mls/hr IV ASDIR [facility] Last Admin: 01/26/17 05:36 Dose: Not Given Pantoprazole Sodium (Protonix 40mg Ivpb (Pre-Docked)) 100 mls @ 200 mls/hr IVPB DAILY [facility] Last Admin: 01/26/17 10:53 Dose: 200 mls/hr Piperacillin Sod/Tazobactam Sod (Zosyn 4.5gm Ivpb (Pre-Docked)) 100 mls @ 200 mls/hr IVPB Q8H-IV GABI PRN Reason: Protocol Last Admin: 01/26/17 10:44 Dose: 200 mls/hr Insulin Aspart (Novolog Vial Sliding Scale -) 1 vial SQ TIDAC GABI PRN Reason: Protocol Last Admin: 01/26/17 11:05 Dose: Not Given Insulin Aspart (Novolog Vial Sliding Scale -) 1 vial SQ HS GABI PRN Reason: Protocol Last Admin: 01/25/17 21:54 Dose: Not Given Lorazepam (Ativan Injection -) 0.5 mg IVPUSH BID PRN PRN Reason: ANXIETY Last Admin: 01/25/17 01:32 Dose: 0.5 mg Metoprolol Tartrate (Lopressor Injection -) 5 mg IVPB Q4H PRN PRN Reason: HYPERTENSION Ondansetron HCl (Zofran Injection) 4 mg IVPB Q6H PRN PRN Reason: NAUSEA Last Admin: 01/23/17 10:44 Dose: 4 mg - Objective Vital Signs: Vital Signs Temperature 97.8 F 01/26/17 14:38 Pulse Rate 61 01/26/17 14:38 Respiratory Rate 20 01/26/17 06:00 Blood Pressure 131/86 01/26/17 14:38 O2 Sat by Pulse Oximetry (%) 99 01/26/17 09:00 Constitutional: Yes: Mild Distress Eyes: No: Sclera Icterus HENT: Yes: Atraumatic, Normocephalic Neck: Yes: Supple, Trachea Midline Cardiovascular: Yes: Regular Rate and Rhythm. No: JVD Respiratory: Yes: Rhonchi (scattered bilateral) Gastrointestinal: Yes: Soft, Tenderness (mild diffuse without rebound), Tenderness, Epigastrium Extremities: No: Calf Tenderness Edema: No Neurological: Yes: Alert, Oriented Labs: CBC, BMP 01/26/17 05:45 01/26/17 05:45 Assessment/Plan COPD- mild; respiratory status stable ISELA-uses CPAP several times per week at home. Pt has not felt the need ananth use it in hospital. Diverticulitis-improving Lung [id number] increased in size over 4 years. Plan Albuterol O2 to maintain SaO2 greater than 90 Pt. told again to have her CPAP machine and mask brought to hospital Repeat CT chest in one year
[2017-01-26] MEDS ORDERED: PIPERACILLIN/TAZOB 4.5 GM 4.5 GM in DEXTROSE 5%-WATER 100 ML IVPB SCH (15:37)
--- NOTE | 2017-01-26 15:49 | PN ---
Progress Note, Physician History of Present Illness: Increased LLQ abdominal pain radiating to back after eating ice cream, no fevers or chills. Repeat abd/pelvic CT shows interval improvement. - Current Medication List Current Medications: Active Medications Albuterol Sulfate (Ventolin 0.083% Nebulizer Soln -) 1 amp NEB Q6H PRN PRN Reason: SHORT OF BREATH/WHEEZING Last Admin: 01/25/17 10:30 Dose: 1 amp Alprazolam (Xanax -) 1 mg PO BID [facility] Last Admin: 01/26/17 10:45 Dose: 1 mg Enoxaparin Sodium (Lovenox -) 40 mg SQ DAILY [facility] Last Admin: 01/26/17 10:44 Dose: 40 mg Gabapentin (Neurontin -) 800 mg PO TID [facility] Last Admin: 01/26/17 05:35 Dose: 800 mg Hydromorphone HCl (Dilaudid Injection -) 1 mg IVPB Q3H PRN PRN Reason: PAIN Last Admin: 01/26/17 11:57 Dose: 1 mg Sodium Chloride (Normal Saline -) 1,000 mls @ 75 mls/hr IV ASDIR [facility] Last Admin: 01/26/17 05:36 Dose: Not Given Pantoprazole Sodium (Protonix 40mg Ivpb (Pre-Docked)) 100 mls @ 200 mls/hr IVPB DAILY [facility] Last Admin: 01/26/17 10:53 Dose: 200 mls/hr Piperacillin Sod/Tazobactam (Sod 4.5 gm/ Dextrose) 100 mls @ 200 mls/hr IVPB Q8H-IV GABI PRN Reason: Protocol Stop: 01/30/17 18:29 Insulin Aspart (Novolog Vial Sliding Scale -) 1 vial SQ TIDAC GABI PRN Reason: Protocol Last Admin: 01/26/17 11:05 Dose: Not Given Insulin Aspart (Novolog Vial Sliding Scale -) 1 vial SQ HS GABI PRN Reason: Protocol Last Admin: 01/25/17 21:54 Dose: Not Given Lorazepam (Ativan Injection -) 0.5 mg IVPUSH BID PRN PRN Reason: ANXIETY Last Admin: 01/25/17 01:32 Dose: 0.5 mg Metoprolol Tartrate (Lopressor Injection -) 5 mg IVPB Q4H PRN PRN Reason: HYPERTENSION Ondansetron HCl (Zofran Injection) 4 mg IVPB Q6H PRN PRN Reason: NAUSEA Last Admin: 01/23/17 10:44 Dose: 4 mg - Objective Vital Signs: Vital Signs Temperature 97.8 F 01/26/17 14:38 Pulse Rate 61 01/26/17 14:38 Respiratory Rate 20 01/26/17 06:00 Blood Pressure 131/86 01/26/17 14:38 O2 Sat by Pulse Oximetry (%) 99 01/26/17 09:00 Constitutional: Yes: No Distress, Calm Neck: Yes: Supple Cardiovascular: Yes: Regular Rate and Rhythm Respiratory: Yes: Regular, CTA Bilaterally Gastrointestinal: Yes: Soft, Abdomen, Obese, Hypoactive Bowel Sounds, Tenderness Edema: No Labs: CBC, BMP 01/26/17 05:45 01/26/17 05:45 Problem List - Problems (1) Acute diverticulitis of intestine Code(s): K57.92 - DVTRCLI OF INTEST, PART UNSP, W/O PERF OR ABSCESS W/O BLEED (2) CAD (coronary artery disease) Code(s): I25.10 - ATHSCL HEART DISEASE OF [place] CORONARY ARTERY W/O ANG PCTRS Qualifiers: Coronary Disease-Associated Artery/Lesion type: [place] artery [place] vs. transplanted heart: [place] heart Associated angina: without angina Qualified Code(s): I25.10 - Atherosclerotic heart disease of [place] coronary artery without angina pectoris (3) COPD (chronic obstructive pulmonary disease) Code(s): J44.9 - CHRONIC OBSTRUCTIVE PULMONARY DISEASE, UNSPECIFIED Qualifiers : COPD type: unspecified COPD Qualified Code(s): J44.9 - Chronic obstructive pulmonary disease, unspecified (4) Constipation Code(s): K59.00 - CONSTIPATION, UNSPECIFIED Qualifiers: Constipation type: drug induced constipation Qualified Code(s): K59.03 - Drug induced constipation (5) Diabetes mellitus Code(s): E11.9 - TYPE 2 DIABETES MELLITUS WITHOUT COMPLICATIONS Qualifiers: Diabetes mellitus type: type 2 Diabetes mellitus complication status: with hyperglycemia Diabetes mellitus management associate insulin use: without management associate use Qualified Code(s): E11.65 - Type 2 diabetes mellitus with hyperglycemia; 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 (6) Diverticulitis large intestine w/o perforation or abscess w/o bleeding Code(s): K57.32 - DVTRCLI OF LG INT W/O PERFORATION OR ABSCESS W/O BLEEDING (7) Chronic left ventricular systolic dysfunction Code(s): I51.9 - HEART DISEASE, UNSPECIFIED (8) Single implantable cardioverter-defibrillator (ICD) in situ Code(s): Z95.810 - PRESENCE OF AUTOMATIC (IMPLANTABLE) CARDIAC DEFIBRILLATOR (9) Status post insertion of drug-eluting stent into left anterior descending artery for coronary artery disease Code(s): Z98.61 - CORONARY ANGIOPLASTY STATUS (10) Status post myocardial infarction of anterior wall Code(s): I25.2 - OLD MYOCARDIAL INFARCTION (11) Hyperlipidemia Code(s): E78.5 - HYPERLIPIDEMIA, UNSPECIFIED Qualifiers: Hyperlipidemia type: pure hypercholesterolemia Qualified Code(s): E78.00 - Pure hypercholesterolemia, unspecified; E78.0 - Pure hypercholesterolemia (12) Hypertension Code(s): I10 - ESSENTIAL (PRIMARY) HYPERTENSION Qualifiers: Hypertension type: essential hypertension Qualified Code(s): I10 - Essential (primary) hypertension (13) Sleep apnea Code(s): G47.30 - SLEEP APNEA, UNSPECIFIED Qualifiers: Sleep apnea type: obstructive Qualified Code(s): G47.33 - Obstructive sleep apnea (adult) (pediatric) Assessment/Plan Echocardiography dated 11/23 revealed LV mildly dilated with wall motion abnormality, EF mildly reduced, moderate MR and mild TR MPI study dated 11/22 revealed mildly reduced EF with apical fixed defect infarct [facility]& coronary angiography dated 11/23 revealed non-obstructive CAD, patent LAD stent, moderate decreased LV systolic function with LVEF 45% with severe anterior, hannah-lateral hypokinesia 1. Acute sigmoid diverticulitis ? microperforation 2. CAD S/P PCI/stent, angina pectoris 3. Ischemic cardiomyopathy with history of failure S/P ICD, euvolemic 4. HTN/HCVD 5. Hypercholesterolemia 6. OSAS noncompliant with CPAP 7. History of neurocardiogenic syncope 8. Depression/anxiety/eating disorder 9. Mild COPD 10. Uncontrolled diabetes mellitus PLAN: 1. Started clear liquid diet and advance as tolerated, resume oral meds including ASA 81 qd, Lipitor 40 qhs, carvedilol 3.125 bid, lisinopril 2.5 qd, Aldactone 25 qd 2. Continue DVT prophylaxis, replete K and Mg 3. CPAP nightly, bronchodilator and O2 as needed
--- NOTE | 2017-01-26 16:02 | PN ---
Progress Note, Physician Chief Complaint: Ms Edouard says she is still having severe pain in her LLQ, made worse with eating. No cp or sob. - Current Medication List Current Medications: Active Medications Albuterol Sulfate (Ventolin 0.083% Nebulizer Soln -) 1 amp NEB Q6H PRN PRN Reason: SHORT OF BREATH/WHEEZING Last Admin: 01/25/17 10:30 Dose: 1 amp Alprazolam (Xanax -) 1 mg PO BID [facility] Last Admin: 01/26/17 10:45 Dose: 1 mg Enoxaparin Sodium (Lovenox -) 40 mg SQ DAILY [facility] Last Admin: 01/26/17 10:44 Dose: 40 mg Gabapentin (Neurontin -) 800 mg PO TID [facility] Last Admin: 01/26/17 05:35 Dose: 800 mg Hydromorphone HCl (Dilaudid Injection -) 1 mg IVPB Q3H PRN PRN Reason: PAIN Last Admin: 01/26/17 11:57 Dose: 1 mg Sodium Chloride (Normal Saline -) 1,000 mls @ 75 mls/hr IV ASDIR [facility] Last Admin: 01/26/17 05:36 Dose: Not Given Pantoprazole Sodium (Protonix 40mg Ivpb (Pre-Docked)) 100 mls @ 200 mls/hr IVPB DAILY [facility] Last Admin: 01/26/17 10:53 Dose: 200 mls/hr Piperacillin Sod/Tazobactam (Sod 4.5 gm/ Dextrose) 100 mls @ 200 mls/hr IVPB Q8H-IV [facility] PRN Reason: Protocol Stop: 01/30/17 18:29 Insulin Aspart (Novolog Vial Sliding Scale -) 1 vial SQ TIDAC [facility] PRN Reason: Protocol Last Admin: 01/26/17 11:05 Dose: Not Given Insulin Aspart (Novolog Vial Sliding Scale -) 1 vial SQ HS [facility] PRN Reason: Protocol Last Admin: 01/25/17 21:54 Dose: Not Given Lorazepam (Ativan Injection -) 0.5 mg IVPUSH BID PRN PRN Reason: ANXIETY Last Admin: 01/25/17 01:32 Dose: 0.5 mg Metoprolol Tartrate (Lopressor Injection -) 5 mg IVPB Q4H PRN PRN Reason: HYPERTENSION Ondansetron HCl (Zofran Injection) 4 mg IVPB Q6H PRN PRN Reason: NAUSEA Last Admin: 01/23/17 10:44 Dose: 4 mg - Objective Vital Signs: Vital Signs Temperature 97.8 F 01/26/17 14:38 Pulse Rate 61 01/26/17 14:38 Respiratory Rate 20 01/26/17 06:00 Blood Pressure 131/86 01/26/17 14:38 O2 Sat by Pulse Oximetry (%) 99 01/26/17 09:00 Constitutional: Yes: Well Nourished, No Distress, Calm Cardiovascular: Yes: Regular Rate and Rhythm. No: Gallop, Murmur, Rub Respiratory: Yes: Regular, CTA Bilaterally. No: Rales, Rhonchi, Wheezes Gastrointestinal: Yes: Hypoactive Bowel Sounds (improving), Tenderness (LLQ). No: Distention Extremities: Yes: WNL Edema: No Labs: CBC, BMP 01/26/17 05:45 01/26/17 05:45 Assessment/Plan (1) Acute diverticulitis of intestine Assessment/Plan: -patient clinically looks improved today -more energetic today -abdominal exam still significant but improved as well -continue antibiotics per ID -diet advanced -will not increase narcotic regimen currently Code(s): K57.92 - DVTRCLI OF INTEST, PART UNSP, W/O PERF OR ABSCESS W/O BLEED (2) CAD (coronary artery disease) Assessment/Plan: -cardiology consulted and note reviewed Code(s): I25.10 - ATHSCL HEART DISEASE OF [place] CORONARY ARTERY W/O ANG PCTRS Qualifiers: Coronary Disease-Associated Artery/Lesion type: [place] artery [place] vs. transplanted heart: [place] heart Associated angina: without angina Qualified Code(s): I25.10 - Atherosclerotic heart disease of [place] coronary artery without angina pectoris (3) CHF (congestive heart failure), NYHA class I Assessment/Plan -continue IVF -cardiology following Code(s): I50.9 - HEART FAILURE, UNSPECIFIED Qualifiers: Congestive heart failure type: systolic Congestive heart failure chronicity: chronic Qualified Code(s): I50.22 - Chronic systolic ( congestive) heart failure (4) COPD (chronic obstructive pulmonary disease) Assessment/Plan: -pulmonary following -continue bronchodilators Code(s): J44.9 - CHRONIC OBSTRUCTIVE PULMONARY DISEASE, UNSPECIFIED Qualifiers : COPD type: unspecified COPD Qualified Code(s): J44.9 - Chronic obstructive pulmonary disease, unspecified (5) Diabetes mellitus Assessment/Plan: -endocrinology following and managing Code(s): E11.9 - TYPE 2 DIABETES MELLITUS WITHOUT COMPLICATIONS Qualifiers: Diabetes mellitus type: type 2 Diabetes mellitus complication status: without complication (6) Single implantable cardioverter-defibrillator (ICD) in situ Assessment/Plan: -per cardiology Code(s): Z95.810 - PRESENCE OF AUTOMATIC (IMPLANTABLE) CARDIAC DEFIBRILLATOR (7) Hypertension Assessment/Plan: -normotensive Code(s): I10 - ESSENTIAL (PRIMARY) HYPERTENSION Qualifiers: Hypertension type: essential hypertension Qualified Code(s): I10 - Essential (primary) hypertension (8) Anxiety Assessment/Plan: -monitor, patient is receiving narcotics Code(s): F41.9 - ANXIETY DISORDER, UNSPECIFIED
--- NOTE | 2017-01-26 17:38 | PN ---
Progress Note (short form) - Note Progress Note: Pt seen and examined in bed. Still with lower abdominal and mod-sev LLQ pain, no flatus or BM yet. Taking pain meds regularly. Has been OOB to bathroom. Tried ice cream and pudding and both brought more abdominal pain. CT was repeated yesterday with improvement in inflammatory changes of diverticulitis; done with po but no IV contrast. Vital Signs Period Temp Pulse Resp BP Sys/Riley Pulse Ox Last 24 Hr 97.8 F-98.5 F 53-63 20-20 110-131/67-86 97-99 PE: nasal cannula fell on floor - pt not using no audible wheezing, but end-expiratory wheezing bilaterally present abdomen soft, obese, diffuse tenderness L>>R, worst in LLQ, no rebound or guarding, hypoactive to absent bowel sounds except over stomach CBCD WBC 5.5 K/mm3 (4.0-10.0) 01/26/17 05:45 RBC 3.36 M/mm3 (3.60-5.2) L 01/26/17 05:45 Hgb 11.0 GM/dL (10.7-15.3) 01/26/17 05:45 Hct 31.4 % (32.4-45.2) L 01/26/17 05:45 MCV 93.4 fl (80-96) 01/26/17 05:45 MCHC 35.0 g/dl (32.0-36.0) 01/26/17 05:45 RDW 13.4 % (11.6-15.6) 01/26/17 05:45 Plt Count 195 K/MM3 (134-434) 01/26/17 05:45 MPV 7.6 fl (7.5-11.1) 01/26/17 05:45 CMP Sodium 144 mmol/L (136-145) 01/26/17 05:45 Potassium 3.2 mmol/L (3.5-5.1) L D 01/26/17 05:45 Chloride 108 mmol/L (98-107) H 01/26/17 05:45 Carbon Dioxide 27 mmol/L (21-32) 01/26/17 05:45 Anion Gap 9 (8-16) 01/26/17 05:45 BUN 6 mg/dL (7-18) L 01/26/17 05:45 Creatinine 0.5 mg/dL (0.55-1.02) L D 01/26/17 05:45 Creat Clearance w eGFR > 60 (>60) 01/25/17 05:35 Calcium 8.0 mg/dL (8.5-10.1) L 01/26/17 05:45 Total Bilirubin 0.6 mg/dL (0.2-1.0) 01/25/17 05:35 AST 37 U/L (15-37) D 01/25/17 05:35 ALT 51 U/L (12-78) 01/25/17 05:35 Alkaline Phosphatase 114 U/L (45-117) 01/25/17 05:35 Total Protein 5.7 g/dl (6.4-8.2) L 01/25/17 05:35 Albumin 3.1 g/dl (3.4-5.0) L 01/25/17 05:35 A/P: sigmoid diverticulitis improvement by CT at 48 hrs, but pain and tenderness indicate inflammation/ infection is not resolved more pain with trial of po would NOT give more than occasional ice chips or sips of water with meds until NO pain and NO tenderness need diabetic restrictions when po is eventually resumed antibiotics per ID pain meds prn - pt advised that more narcotics will likely delay bowel function oral contrast from CT will probably facilitate bowel function when it returns encourage OOB/ambulation monitor labs - replete lytes prn respiratory status stable Problem List - Problems (1) Diverticulitis large intestine w/o perforation or abscess w/o bleeding Code(s): K57.32 - DVTRCLI OF LG INT W/O PERFORATION OR ABSCESS W/O BLEEDING (2) CAD (coronary artery disease) Code(s): I25.10 - ATHSCL HEART DISEASE OF [place] CORONARY ARTERY W/O ANG PCTRS Qualifiers: Coronary Disease-Associated Artery/Lesion type: [place] artery [place] vs. transplanted heart: [place] heart Associated angina: without angina Qualified Code(s): I25.10 - Atherosclerotic heart disease of [place] coronary artery without angina pectoris (3) CHF (congestive heart failure), NYHA class I Code(s): I50.9 - HEART FAILURE, UNSPECIFIED Qualifiers: Congestive heart failure type: systolic Congestive heart failure chronicity: chronic Qualified Code(s): I50.22 - Chronic systolic ( congestive) heart failure (4) COPD (chronic obstructive pulmonary disease) Code(s): J44.9 - CHRONIC OBSTRUCTIVE PULMONARY DISEASE, UNSPECIFIED Qualifiers : COPD type: unspecified COPD Qualified Code(s): J44.9 - Chronic obstructive pulmonary disease, unspecified (5) Constipation Code(s): K59.00 - CONSTIPATION, UNSPECIFIED Qualifiers: Constipation type: drug induced constipation Qualified Code(s): K59.03 - Drug induced constipation (6) Diabetes mellitus Code(s): E11.9 - TYPE 2 DIABETES MELLITUS WITHOUT COMPLICATIONS Qualifiers: Diabetes mellitus type: type 2 Diabetes mellitus complication status: with hyperglycemia Diabetes mellitus custodial insulin use: without terminal gauger supervisor use Qualified Code(s): E11.65 - Type 2 diabetes mellitus with hyperglycemia; Z79.4 - director long term care (current) use of insulin (7) Single implantable cardioverter-defibrillator (ICD) in situ Code(s): Z95.810 - PRESENCE OF AUTOMATIC (IMPLANTABLE) CARDIAC DEFIBRILLATOR (8) Status post insertion of drug-eluting stent into left anterior descending artery for coronary artery disease Code(s): Z98.61 - CORONARY ANGIOPLASTY STATUS (9) Status post myocardial infarction of anterior wall Code(s): I25.2 - OLD MYOCARDIAL INFARCTION (10) Anxiety Code(s): F41.9 - ANXIETY DISORDER, UNSPECIFIED (11) Sleep apnea Code(s): G47.30 - SLEEP APNEA, UNSPECIFIED Qualifiers: Sleep apnea type: obstructive Qualified Code(s): G47.33 - Obstructive sleep apnea (adult) (pediatric)
[2017-01-26] MEDS ORDERED: DEXTROSE 5%-WATER 100 ML IVPB ONE (17:50)
[2017-01-26] MEDS ORDERED: PIPERACILLIN/TAZOBACTAM 4.5 GM VIAL IVPB ONE (17:50)
[2017-01-26] MEDS: PIPERACILLIN/TAZOB 4.5 GM 4.5 GM in DEXTROSE 5%-WATER 100 ML IVPB SCH (18:03)
[2017-01-26] MEDS: CARVEDILOL 3.125 MG TABLET (FP) PO SCH (21:12)
[2017-01-26] MEDS: LORAZEPAM CARPU-JECT 2 MG/ML DISP.SYRIN IVPUSH PRN (22:37)
[2017-01-27] MEDS ORDERED: PIPERACILLIN/TAZOBACTAM 4.5 GM VIAL IVPB ONE ×3 (01:28→17:02)
[2017-01-27] MEDS ORDERED: DEXTROSE 5%-WATER 100 ML IVPB ONE ×4 (01:28→17:02)
[2017-01-27] MEDS: PIPERACILLIN/TAZOB 4.5 GM 4.5 GM in DEXTROSE 5%-WATER 100 ML IVPB SCH ×3 (01:33→18:04)
[2017-01-27] MEDS: HYDROmorphone HCL CARPU-JECT 1 MG/1 ML DISP.SYRIN IVPB PRN ×7 (02:28→22:03)
[2017-01-27] MEDS: GABAPENTIN 400 MG CAPSULE (FP) PO SCH ×3 (05:56→21:13)
[2017-01-27] MEDS: SODIUM CHLORIDE 1,000 ML IV SCH ×2 (05:57→15:36)
[2017-01-27] MEDS: INSULIN SLIDING SCALE (NOVOLOG) 1 VIAL SQ SCH ×4 (06:01→21:13)
[2017-01-27 07:14] LABS: ANION GAP 10 (8-16); CALCIUM 8.1 mg/dL (8.5-10.1); CO2 27 mmol/L (21-32); CREATININE 0.5 mg/dL (0.55-1.02); GLUCOSE,RANDOM 111 mg/dL (74-106); MAGNESIUM 1.6 mg/dL (1.8-2.4); PHOSPHOROUS 2.6 mg/dL (2.5-4.9)
[2017-01-27 07:22] LABS: BASOPHIL 0.3 % (0-2.0); EOSINOPHIL 3.3 % (0-4.5); MCH 32.5 pg (25.7-33.7); MCHC 34.9 g/dl (32.0-36.0); MEAN CELL VOLUME 93.1 fl (80-96); MEAN PLT VOLUME 7.3 fl (7.5-11.1); PLATELET COUNT 184 K/MM3 (134-434); RDW 13.9 % (11.6-15.6); WHITE BLOOD COUNT 5.4 K/mm3 (4.0-10.0)
--- NOTE | 2017-01-27 08:51 | PN ---
Progress Note (short form) - Note Progress Note: Still with abd pain, tolerating food BGM acceptable Vital Signs Period Temp Pulse Resp BP Sys/Riley Pulse Ox Last 24 Hr 97.8 F-98.2 F 53-65 18-20 131-146/74-86 98-99 PE: AOx3 Neck: Supple, No JVD HEENT: EOMI Lungs: CTA CVS: S1S2 Abd: soft, BS present. diffuse tenderness EXt: No edema Neuro: No focal deficit CBC,CMP WBC 5.4 K/mm3 (4.0-10.0) 01/27/17 06:05 RBC 3.69 M/mm3 (3.60-5.2) 01/27/17 06:05 Hgb 12.0 GM/dL (10.7-15.3) 01/27/17 06:05 Hct 34.3 % (32.4-45.2) 01/27/17 06:05 MCV 93.1 fl (80-96) 01/27/17 06:05 MCH 32.5 pg (25.7-33.7) 01/27/17 06:05 MCHC 34.9 g/dl (32.0-36.0) 01/27/17 06:05 RDW 13.9 % (11.6-15.6) 01/27/17 06:05 Plt Count 184 K/MM3 (134-434) 01/27/17 06:05 MPV 7.3 fl (7.5-11.1) L 01/27/17 06:05 Neutrophils % 63.0 % (42.8-82.8) 01/27/17 06:05 Lymphocytes % 26.6 % (8-40) 01/27/17 06:05 Monocytes % 6.8 % (3.8-10.2) 01/27/17 06:05 Eosinophils % 3.3 % (0-4.5) 01/27/17 06:05 Basophils % 0.3 % (0-2.0) 01/27/17 06:05 ESR 20 mm/hr (0-30) 01/24/17 08:15 Sodium 146 mmol/L (136-145) H 01/27/17 06:05 Potassium 3.1 mmol/L (3.5-5.1) L 01/27/17 06:05 Chloride 109 mmol/L (98-107) H 01/27/17 06:05 Carbon Dioxide 27 mmol/L (21-32) 01/27/17 06:05 Anion Gap 10 (8-16) 01/27/17 06:05 BUN 5 mg/dL (7-18) L 01/27/17 06:05 Creatinine 0.5 mg/dL (0.55-1.02) L 01/27/17 06:05 Creat Clearance w eGFR > 60 (>60) 01/25/17 05:35 POC Glucometer 119 UNITS (()) 01/27/17 05:36 Random Glucose 111 mg/dL (74-106) H 01/27/17 06:05 Calcium 8.1 mg/dL (8.5-10.1) L 01/27/17 06:05 Phosphorus 2.6 mg/dL (2.5-4.9) 01/27/17 06:05 Magnesium 1.6 mg/dL (1.8-2.4) L 01/27/17 06:05 Total Bilirubin 0.6 mg/dL (0.2-1.0) 01/25/17 05:35 AST 37 U/L (15-37) D 01/25/17 05:35 ALT 51 U/L (12-78) 01/25/17 05:35 Alkaline Phosphatase 114 U/L (45-117) 01/25/17 05:35 Creatine Kinase 50 IU/L (26-192) 01/23/17 00:30 Troponin I < 0.02 ng/ml (0.00-0.05) 01/23/17 00:30 C-Reactive Protein 1.8 MG/DL (0.00-0.3) H D 01/25/17 05:35 Total Protein 5.7 g/dl (6.4-8.2) L 01/25/17 05:35 Albumin 3.1 g/dl (3.4-5.0) L 01/25/17 05:35 Total Amylase 26 U/L (25-115) D 01/23/17 00:30 Lipase 131 U/L (73-393) 01/23/17 00:30 Serum , Qual Negative 01/23/17 00:30 Current Medications Generic Name Dose Route Start Last Admin Trade Name Freq PRN Reason Stop Dose Admin Albuterol Sulfate 1 amp 01/23/17 02:52 01/25/17 10:30 Ventolin 0.083% Nebulizer Soln - NEB 1 amp Q6H PRN Administration SHORT OF BREATH/WHEEZING Alprazolam 1 mg 01/23/17 10:00 01/26/17 21:12 Xanax - PO 1 mg BID GABI Administration Carvedilol 3.125 mg 01/26/17 22:00 01/26/17 21:12 Coreg - PO 3.125 mg BID GABI Administration Enoxaparin Sodium 40 mg 01/24/17 19:45 01/26/17 10:44 Lovenox - SQ 40 mg DAILY GABI Administration Gabapentin 800 mg 01/23/17 06:00 01/27/17 05:56 Neurontin - PO 800 mg TID GABI Administration Hydromorphone HCl 1 mg 01/25/17 14:59 01/27/17 08:30 Dilaudid Injection - IVPB 1 mg Q3H PRN Administration PAIN Sodium Chloride 1,000 mls @ 75 mls/hr 01/23/17 03:00 01/27/17 05:57 Normal Saline - IV 75 mls/hr ASDIR GABI Administration Pantoprazole Sodium 100 mls @ 200 mls/hr 01/23/17 13:30 01/26/17 10:53 Protonix 40mg Ivpb (Pre-Docked) IVPB 200 mls/hr DAILY GABI Administration Piperacillin Sod/Tazobactam 100 mls @ 200 mls/hr 01/26/17 18:00 01/27/17 01:33 Sod 4.5 gm/ Dextrose IVPB 01/30/17 18:29 200 mls/hr Q8H-IV GABI Administration Protocol Insulin Aspart 1 vial 01/23/17 16:30 01/27/17 06:01 Novolog Vial Sliding Scale - SQ Not Given TIDAC GABI Protocol Insulin Aspart 1 vial 01/24/17 22:00 01/26/17 21:12 Novolog Vial Sliding Scale - SQ Not Given HS GABI Protocol Lisinopril 2.5 mg 01/27/17 10:00 Prinivil PO DAILY GABI Lorazepam 0.5 mg 01/23/17 13:25 01/26/17 22:37 Ativan Injection - IVPUSH 0.5 mg BID PRN Administration ANXIETY Metoprolol Tartrate 5 mg 01/23/17 13:24 Lopressor Injection - IVPB Q4H PRN HYPERTENSION Ondansetron HCl 4 mg 01/23/17 02:49 01/23/17 10:44 Zofran Injection IVPB 4 mg Q6H PRN Administration NAUSEA AP: Abd pain/Sigmoid Diverticulitis DM Uncontrolled COPD CHF ICD implant BGM acceptable, Highest 195 Tolerating food No long acting Insulin for now BGM QACHS Off Metformin for now b/o GI symptoms Novolog SS coverage IV abx
[2017-01-27] MEDS: CARVEDILOL 3.125 MG TABLET (FP) PO SCH ×2 (09:43→21:13)
[2017-01-27] MEDS: ALPRAZolam 2 MG TABLET PO SCH ×2 (09:43→21:13)
[2017-01-27] MEDS: LISINOPRIL 5 MG TABLET (FP) PO SCH (09:43)
[2017-01-27] MEDS: ENOXAPARIN NA (PORCINE) 40 MG/0.4 ML DISP.SYRIN SQ SCH (09:55)
--- NOTE | 2017-01-27 10:25 | PN ---
Progress Note, Physician Chief Complaint: Events noted Complains of diffuse abdominal pain intermittently History of Present Illness: Patient was seen and examined. Awake and alert. Chart was reviewed Denies chest pain, SOB or palpitations Diffuse abdominal pain Surgery following patient - Current Medication List Current Medications: Active Medications Albuterol Sulfate (Ventolin 0.083% Nebulizer Soln -) 1 amp NEB Q6H PRN PRN Reason: SHORT OF BREATH/WHEEZING Last Admin: 01/25/17 10:30 Dose: 1 amp Alprazolam (Xanax -) 1 mg PO BID [facility] Last Admin: 01/27/17 09:43 Dose: 1 mg Carvedilol (Coreg -) 3.125 mg PO BID [facility] Last Admin: 01/27/17 09:43 Dose: 3.125 mg Enoxaparin Sodium (Lovenox -) 40 mg SQ DAILY [facility] Last Admin: 01/27/17 09:55 Dose: 40 mg Gabapentin (Neurontin -) 800 mg PO TID [facility] Last Admin: 01/27/17 05:56 Dose: 800 mg Hydromorphone HCl (Dilaudid Injection -) 1 mg IVPB Q3H PRN PRN Reason: PAIN Last Admin: 01/27/17 08:30 Dose: 1 mg Sodium Chloride (Normal Saline -) 1,000 mls @ 75 mls/hr IV ASDIR [facility] Last Admin: 01/27/17 05:57 Dose: 75 mls/hr Piperacillin Sod/Tazobactam (Sod 4.5 gm/ Dextrose) 100 mls @ 200 mls/hr IVPB Q8H-IV GABI PRN Reason: Protocol Stop: 01/30/17 18:29 Last Admin: 01/27/17 09:55 Dose: 200 mls/hr Pantoprazole Sodium 40 mg/ (Dextrose) 100 mls @ 200 mls/hr IVPB DAILY GABI Insulin Aspart (Novolog Vial Sliding Scale -) 1 vial SQ TIDAC GABI PRN Reason: Protocol Last Admin: 01/27/17 06:01 Dose: Not Given Insulin Aspart (Novolog Vial Sliding Scale -) 1 vial SQ HS GABI PRN Reason: Protocol Last Admin: 01/26/17 21:12 Dose: Not Given Lisinopril (Prinivil) 2.5 mg PO DAILY [facility] Last Admin: 01/27/17 09:43 Dose: 2.5 mg Lorazepam (Ativan Injection -) 0.5 mg IVPUSH BID PRN PRN Reason: ANXIETY Last Admin: 01/26/17 22:37 Dose: 0.5 mg Metoprolol Tartrate (Lopressor Injection -) 5 mg IVPB Q4H PRN PRN Reason: HYPERTENSION Ondansetron HCl (Zofran Injection) 4 mg IVPB Q6H PRN PRN Reason: NAUSEA Last Admin: 01/23/17 10:44 Dose: 4 mg - Objective Vital Signs: Vital Signs Temperature 97.8 F 01/27/17 08:00 Pulse Rate 53 L 01/27/17 08:00 Respiratory Rate 18 01/27/17 08:00 Blood Pressure 143/74 01/27/17 08:00 O2 Sat by Pulse Oximetry (%) 98 01/26/17 21:00 Neck: Yes: Supple Cardiovascular: Yes: Regular Rate and Rhythm, S1, S2 Respiratory: Yes: CTA Bilaterally Gastrointestinal: Yes: Normal Bowel Sounds, Abdomen, Obese, Tenderness (diffuse) Edema: No Labs: CBC, BMP 01/27/17 06:05 01/27/17 06:05 Problem List - Problems (1) Acute diverticulitis of intestine Code(s): K57.92 - DVTRCLI OF INTEST, PART UNSP, W/O PERF OR ABSCESS W/O BLEED (2) CAD (coronary artery disease) Code(s): I25.10 - ATHSCL HEART DISEASE OF [place] CORONARY ARTERY W/O ANG PCTRS Qualifiers: Coronary Disease-Associated Artery/Lesion type: [place] artery [place] vs. transplanted heart: [place] heart Associated angina: without angina Qualified Code(s): I25.10 - Atherosclerotic heart disease of [place] coronary artery without angina pectoris (3) CHF (congestive heart failure), NYHA class I Code(s): I50.9 - HEART FAILURE, UNSPECIFIED Qualifiers: Congestive heart failure type: systolic Congestive heart failure chronicity: chronic Qualified Code(s): I50.22 - Chronic systolic ( congestive) heart failure (4) COPD (chronic obstructive pulmonary disease) Code(s): J44.9 - CHRONIC OBSTRUCTIVE PULMONARY DISEASE, UNSPECIFIED Qualifiers : COPD type: unspecified COPD Qualified Code(s): J44.9 - Chronic obstructive pulmonary disease, unspecified (5) Diabetes mellitus Code(s): E11.9 - TYPE 2 DIABETES MELLITUS WITHOUT COMPLICATIONS Qualifiers: Diabetes mellitus type: type 2 Diabetes mellitus complication status: with hyperglycemia Diabetes mellitus intermodal dispatcher insulin use: without mcc use Qualified Code(s): E11.65 - Type 2 diabetes mellitus with hyperglycemia; Z79.4 - intermediate accountant (current) use of insulin (6) Neurocardiogenic syncope Code(s): R55 - SYNCOPE AND COLLAPSE (7) Renal insufficiency Code(s): N28.9 - DISORDER OF KIDNEY AND URETER, UNSPECIFIED (8) Chronic left ventricular systolic dysfunction Code(s): I51.9 - HEART DISEASE, UNSPECIFIED (9) Single implantable cardioverter-defibrillator (ICD) in situ Code(s): Z95.810 - PRESENCE OF AUTOMATIC (IMPLANTABLE) CARDIAC DEFIBRILLATOR (10) Anxiety Code(s): F41.9 - ANXIETY DISORDER, UNSPECIFIED (11) Hyperlipidemia Code(s): E78.5 - HYPERLIPIDEMIA, UNSPECIFIED Qualifiers: Hyperlipidemia type: pure hypercholesterolemia Qualified Code(s): E78.00 - Pure hypercholesterolemia, unspecified; E78.0 - Pure hypercholesterolemia (12) Hypertension Code(s): I10 - ESSENTIAL (PRIMARY) HYPERTENSION Qualifiers: Hypertension type: essential hypertension Qualified Code(s): I10 - Essential (primary) hypertension Assessment/Plan 1. Acute sigmoid diverticulitis 2. CAD S/P PCI/stent, angina pectoris 3. Ischemic cardiomyopathy with history of failure S/P ICD, euvolemic 4. HTN/HCVD 5. Hypercholesterolemia 6. OSAS noncompliant with CPAP 7. History of neurocardiogenic syncope 8. Depression/anxiety/eating disorder 9. Mild COPD 10. Uncontrolled diabetes mellitus PLAN: 1. Continue present management as per surgical service 2. Continue Carvedilol and Prinivil as tolerated 3. CPAP nightly, bronchodilator and O2 as needed Further plans are to follow Marcus Kemp MD
[2017-01-27] MEDS ORDERED: PANTOPRAZOLE SODIUM 40 MG VIAL ONE (10:28)
[2017-01-27] MEDS: PANTOPRAZOLE SODIUM 40 MG in DEXTROSE 5%-WATER 100 ML IVPB SCH (10:29)
[2017-01-27] MEDS: PANTOPRAZOLE SODIUM 100 ML IVPB SCH (10:58)
--- NOTE | 2017-01-27 12:15 | PN ---
Progress Note (short form) - Note Progress Note: Pt seen and examined in bed. Still with LLQ pain, no flatus or BM yet (and for days prior to admission per pt). Taking IV pain meds regularly; states pain returns when Dilaudid wears off. OOB to bathroom but not walking in [place]. Taking mainly ice chips and water; tried custard and diet hernan shelley this am but brought more pain. Vital Signs Period Temp Pulse Resp BP Sys/Riley Pulse Ox Last 24 Hr 97.8 F-98.2 F 53-65 18-20 131-146/74-86 97-98 PE: NC O2 abdomen soft, obese, tender LLQ/suprapubic and RUQ, no rebound or guarding, nontender RLQ and LUQ normal bowel sounds CBC, BMP 01/27/17 06:05 01/27/17 06:05 A/P: sigmoid diverticulitis improvement by CT at 48 hrs, but still with pain and LLQ tenderness more pain with trial of po would maintain NPO/IVF except ice chips or water pain and tenderness significantly resolved need diabetic restrictions when po is eventually resumed antibiotics per ID pain meds prn - pt advised that more narcotics will likely delay bowel function oral contrast from CT will probably facilitate bowel function when it returns encourage OOB/ambulation monitor labs - replete natalie prn I will be away until Wednesday 01/31. Dr. Jakob Spears will be covering in my absence. Problem List - Problems (1) Diverticulitis large intestine w/o perforation or abscess w/o bleeding Code(s): K57.32 - DVTRCLI OF [place] INT W/O PERFORATION OR ABSCESS W/O BLEEDING (2) CAD (coronary artery disease) Code(s): I25.10 - ATHSCL HEART DISEASE OF [place] CORONARY ARTERY W/O ANG PCTRS Qualifiers: Coronary Disease-Associated Artery/Lesion type: [place] artery [place] vs. transplanted heart: [place] heart Associated angina: without angina Qualified Code(s): I25.10 - Atherosclerotic heart disease of [place] coronary artery without angina pectoris (3) CHF (congestive heart failure), NYHA class I Code(s): I50.9 - HEART FAILURE, UNSPECIFIED Qualifiers: Congestive heart failure type: systolic Congestive heart failure chronicity: chronic Qualified Code(s): I50.22 - Chronic systolic ( congestive) heart failure (4) COPD (chronic obstructive pulmonary disease) Code(s): J44.9 - CHRONIC OBSTRUCTIVE PULMONARY DISEASE, UNSPECIFIED Qualifiers : COPD type: unspecified COPD Qualified Code(s): J44.9 - Chronic obstructive pulmonary disease, unspecified (5) Constipation Code(s): K59.00 - CONSTIPATION, UNSPECIFIED Qualifiers: Constipation type: drug induced constipation Qualified Code(s): K59.03 - Drug induced constipation (6) Diabetes mellitus Code(s): E11.9 - TYPE 2 DIABETES MELLITUS WITHOUT COMPLICATIONS Qualifiers: Diabetes mellitus type: type 2 Diabetes mellitus complication status: with hyperglycemia Diabetes mellitus exterminator helper insulin use: without half-way use Qualified Code(s): E11.65 - Type 2 diabetes mellitus with hyperglycemia; Z79.4 - intermediate accountant (current) use of insulin (7) Single implantable cardioverter-defibrillator (ICD) in situ Code(s): Z95.810 - PRESENCE OF AUTOMATIC (IMPLANTABLE) CARDIAC DEFIBRILLATOR (8) Status post insertion of drug-eluting stent into left anterior descending artery for coronary artery disease Code(s): Z98.61 - CORONARY ANGIOPLASTY STATUS (9) Status post myocardial infarction of anterior wall Code(s): I25.2 - OLD MYOCARDIAL INFARCTION (10) Anxiety Code(s): F41.9 - ANXIETY DISORDER, UNSPECIFIED (11) Sleep apnea Code(s): G47.30 - SLEEP APNEA, UNSPECIFIED Qualifiers: Sleep apnea type: obstructive Qualified Code(s): G47.33 - Obstructive sleep apnea (adult) (pediatric)
[2017-01-27] MEDS ORDERED: MAGNESIUM SULF 50% (8.12 MEQ/2 ML-1 GM VIAL) IVPB ONE (12:45)
--- NOTE | 2017-01-27 12:45 | PN ---
Progress Note, Physician Chief Complaint: Ms Edouard says she is having LLQ pain with eating, tolerating ice chips. No cp or sob. - Current Medication List Current Medications: Active Medications Albuterol Sulfate (Ventolin 0.083% Nebulizer Soln -) 1 amp NEB Q6H PRN PRN Reason: SHORT OF BREATH/WHEEZING Last Admin: 01/25/17 10:30 Dose: 1 amp Alprazolam (Xanax -) 1 mg PO BID [facility] Last Admin: 01/27/17 09:43 Dose: 1 mg Carvedilol (Coreg -) 3.125 mg PO BID [facility] Last Admin: 01/27/17 09:43 Dose: 3.125 mg Enoxaparin Sodium (Lovenox -) 40 mg SQ DAILY [facility] Last Admin: 01/27/17 09:55 Dose: 40 mg Gabapentin (Neurontin -) 800 mg PO TID [facility] Last Admin: 01/27/17 05:56 Dose: 800 mg Hydromorphone HCl (Dilaudid Injection -) 1 mg IVPB Q3H PRN PRN Reason: PAIN Last Admin: 01/27/17 12:29 Dose: 1 mg Sodium Chloride (Normal Saline -) 1,000 mls @ 75 mls/hr IV ASDIR [facility] Last Admin: 01/27/17 05:57 Dose: 75 mls/hr Piperacillin Sod/Tazobactam (Sod 4.5 gm/ Dextrose) 100 mls @ 200 mls/hr IVPB Q8H-IV GABI PRN Reason: Protocol Stop: 01/30/17 18:29 Last Admin: 01/27/17 09:55 Dose: 200 mls/hr Pantoprazole Sodium 40 mg/ (Dextrose) 100 mls @ 200 mls/hr IVPB DAILY [facility] Last Admin: 01/27/17 10:29 Dose: 200 mls/hr Potassium Chloride (Potassium Chloride 10 Meq Premix Ivpb -) 100 mls @ 100 mls/ hr IVPB Q60M [facility] Stop: 01/27/17 16:19 Insulin Aspart (Novolog Vial Sliding Scale -) 1 vial SQ TIDAC GABI PRN Reason: Protocol Last Admin: 01/27/17 11:32 Dose: 2 unit Insulin Aspart (Novolog Vial Sliding Scale -) 1 vial SQ HS GABI PRN Reason: Protocol Last Admin: 01/26/17 21:12 Dose: Not Given Lisinopril (Prinivil) 2.5 mg PO DAILY G[facility]I Last Admin: 01/27/17 09:43 Dose: 2.5 mg Lorazepam (Ativan Injection -) 0.5 mg IVPUSH BID PRN PRN Reason: ANXIETY Last Admin: 01/26/17 22:37 Dose: 0.5 mg Magnesium Sulfate (Magnesium Sulfate) 2 gm IVPB ONCE ONE Stop: 01/27/17 12:46 Metoprolol Tartrate (Lopressor Injection -) 5 mg IVPB Q4H PRN PRN Reason: HYPERTENSION Ondansetron HCl (Zofran Injection) 4 mg IVPB Q6H PRN PRN Reason: NAUSEA Last Admin: 01/23/17 10:44 Dose: 4 mg - Objective Vital Signs: Vital Signs Temperature 97.8 F 01/27/17 08:00 Pulse Rate 53 L 01/27/17 08:00 Respiratory Rate 18 01/27/17 08:00 Blood Pressure 143/74 01/27/17 08:00 O2 Sat by Pulse Oximetry (%) 97 01/27/17 09:00 Constitutional: Yes: Well Nourished, No Distress, Calm Cardiovascular: Yes: Regular Rate and Rhythm. No: Gallop, Murmur, Rub Respiratory: Yes: Regular, CTA Bilaterally. No: Rales, Rhonchi, Wheezes Gastrointestinal: Yes: Soft, Hypoactive Bowel Sounds (improving), Tenderness ( LLQ). No: Distention Extremities: Yes: WNL Edema: No Labs: CBC, BMP 01/27/17 06:05 01/27/17 06:05 Assessment/Plan (1) Acute diverticulitis of intestine Assessment/Plan: -patient continues to look improved -however still with pain when eating -decrease diet to clear liquids -continue antibiotics per ID -monitor for improvement -case d/w general surgery Code(s): K57.92 - DVTRCLI OF INTEST, PART UNSP, W/O PERF OR ABSCESS W/O BLEED (2) CAD (coronary artery disease) Assessment/Plan: -cardiology consulted and note reviewed Code(s): I25.10 - ATHSCL HEART DISEASE OF [place] CORONARY ARTERY W/O ANG PCTRS Qualifiers: Coronary Disease-Associated Artery/Lesion type: [place] artery [place] vs. transplanted heart: [place] heart Associated angina: without angina Qualified Code(s): I25.10 - Atherosclerotic heart disease of [place] coronary artery without angina pectoris (3) CHF (congestive heart failure), NYHA class I Assessment/Plan -continue IVF -cardiology following Code(s): I50.9 - HEART FAILURE, UNSPECIFIED Qualifiers: Congestive heart failure type: systolic Congestive heart failure chronicity: chronic Qualified Code(s): I50.22 - Chronic systolic ( congestive) heart failure (4) COPD (chronic obstructive pulmonary disease) Assessment/Plan: -pulmonary following -continue bronchodilators Code(s): J44.9 - CHRONIC OBSTRUCTIVE PULMONARY DISEASE, UNSPECIFIED Qualifiers : COPD type: unspecified COPD Qualified Code(s): J44.9 - Chronic obstructive pulmonary disease, unspecified (5) Diabetes mellitus Assessment/Plan: -endocrinology following and managing Code(s): E11.9 - TYPE 2 DIABETES MELLITUS WITHOUT COMPLICATIONS Qualifiers: Diabetes mellitus type: type 2 Diabetes mellitus complication status: without complication (6) Single implantable cardioverter-defibrillator (ICD) in situ Assessment/Plan: -per cardiology Code(s): Z95.810 - PRESENCE OF AUTOMATIC (IMPLANTABLE) CARDIAC DEFIBRILLATOR (7) Hypertension Assessment/Plan: -normotensive Code(s): I10 - ESSENTIAL (PRIMARY) HYPERTENSION Qualifiers: Hypertension type: essential hypertension Qualified Code(s): I10 - Essential (primary) hypertension (8) Anxiety Assessment/Plan: -monitor, patient is receiving narcotics Code(s): F41.9 - ANXIETY DISORDER, UNSPECIFIED
[2017-01-27] MEDS: KCL 10 MEQ IVPB 100 ML IVPB SCH ×3 (14:42→18:49)
--- NOTE | 2017-01-27 15:50 | PN ---
Progress Note, Physician History of Present Illness: continues to have abd pain no flatus yet - Current Medication List Current Medications: Active Medications Albuterol Sulfate (Ventolin 0.083% Nebulizer Soln -) 1 amp NEB Q6H PRN PRN Reason: SHORT OF BREATH/WHEEZING Last Admin: 01/25/17 10:30 Dose: 1 amp Alprazolam (Xanax -) 1 mg PO BID [facility] Last Admin: 01/27/17 09:43 Dose: 1 mg Carvedilol (Coreg -) 3.125 mg PO BID [facility] Last Admin: 01/27/17 09:43 Dose: 3.125 mg Enoxaparin Sodium (Lovenox -) 40 mg SQ DAILY [facility] Last Admin: 01/27/17 09:55 Dose: 40 mg Gabapentin (Neurontin -) 800 mg PO TID [facility] Last Admin: 01/27/17 14:17 Dose: 800 mg Hydromorphone HCl (Dilaudid Injection -) 1 mg IVPB Q3H PRN PRN Reason: PAIN Last Admin: 01/27/17 15:34 Dose: 1 mg Sodium Chloride (Normal Saline -) 1,000 mls @ 75 mls/hr IV ASDIR GABI Last Admin: 01/27/17 15:36 Dose: 75 mls/hr Piperacillin Sod/Tazobactam (Sod 4.5 gm/ Dextrose) 100 mls @ 200 mls/hr IVPB Q8H-IV GABI PRN Reason: Protocol Stop: 01/30/17 18:29 Last Admin: 01/27/17 09:55 Dose: 200 mls/hr Pantoprazole Sodium 40 mg/ (Dextrose) 100 mls @ 200 mls/hr IVPB DAILY [facility] Last Admin: 01/27/17 10:29 Dose: 200 mls/hr Potassium Chloride (Potassium Chloride 10 Meq Premix Ivpb -) 100 mls @ 100 mls/ hr IVPB Q60M [facility] Stop: 01/27/17 16:19 Last Admin: 01/27/17 14:42 Dose: 100 mls/hr Insulin Aspart (Novolog Vial Sliding Scale -) 1 vial SQ TIDAC GABI PRN Reason: Protocol Last Admin: 01/27/17 11:32 Dose: 2 unit Insulin Aspart (Novolog Vial Sliding Scale -) 1 vial SQ HS GABI PRN Reason: Protocol Last Admin: 01/26/17 21:12 Dose: Not Given Lisinopril (Prinivil) 2.5 mg PO DAILY [facility] Last Admin: 01/27/17 09:43 Dose: 2.5 mg Lorazepam (Ativan Injection -) 0.5 mg IVPUSH BID PRN PRN Reason: ANXIETY Last Admin: 01/26/17 22:37 Dose: 0.5 mg Metoprolol Tartrate (Lopressor Injection -) 5 mg IVPB Q4H PRN PRN Reason: HYPERTENSION Ondansetron HCl (Zofran Injection) 4 mg IVPB Q6H PRN PRN Reason: NAUSEA Last Admin: 01/23/17 10:44 Dose: 4 mg - Objective Vital Signs: Vital Signs Temperature 97.8 F 01/27/17 14:08 Pulse Rate 53 L 01/27/17 14:08 Respiratory Rate 18 01/27/17 08:00 Blood Pressure 97/76 01/27/17 14:08 O2 Sat by Pulse Oximetry (%) 97 01/27/17 09:00 Constitutional: Yes: Calm, Mild Distress Cardiovascular: Yes: Regular Rate and Rhythm Respiratory: Yes: Regular, CTA Bilaterally Gastrointestinal: Yes: Soft, Hypoactive Bowel Sounds Musculoskeletal: Yes: WNL Extremities: Yes: WNL Neurological: Yes: Alert, Oriented Psychiatric: Yes: Alert, Oriented Labs: CBC, BMP 01/27/17 06:05 01/27/17 06:05 - ....Imaging Cat Scan: Report Reviewed, Image Reviewed Assessment/Plan Assessment/Plan (1) Acute diverticulitis of intestine Code(s): K57.92 - DVTRCLI OF INTEST, PART UNSP, W/O PERF OR ABSCESS W/O BLEED (2) CAD (coronary artery disease) Code(s): I25.10 - ATHSCL HEART DISEASE OF [place] CORONARY ARTERY W/O ANG PCTRS Qualifiers: Coronary Disease-Associated Artery/Lesion type: [place] artery [place] vs. transplanted heart: [place] heart Associated angina: without angina Qualified Code(s): I25.10 - Atherosclerotic heart disease of [place] coronary artery without angina pectoris (3) CHF (congestive heart failure), NYHA class I Code(s): I50.9 - HEART FAILURE, UNSPECIFIED Qualifiers: Congestive heart failure type: systolic Congestive heart failure chronicity: chronic Qualified Code(s): I50.22 - Chronic systolic ( congestive) heart failure (4) COPD (chronic obstructive pulmonary disease) Code(s): J44.9 - CHRONIC OBSTRUCTIVE PULMONARY DISEASE, UNSPECIFIED Qualifiers : COPD type: unspecified COPD Qualified Code(s): J44.9 - Chronic obstructive pulmonary disease, unspecified (5) Diabetes mellitus Code(s): E11.9 - TYPE 2 DIABETES MELLITUS WITHOUT COMPLICATIONS Qualifiers: Diabetes mellitus type: type 2 Diabetes mellitus complication status: without complication (6) Single implantable cardioverter-defibrillator (ICD) in situ Code(s): Z95.810 - PRESENCE OF AUTOMATIC (IMPLANTABLE) CARDIAC DEFIBRILLATOR (7) Hypertension Code(s): I10 - ESSENTIAL (PRIMARY) HYPERTENSION Qualifiers: Hypertension type: essential hypertension Qualified Code(s): I10 - Essential (primary) hypertension (8) Anxiety Code(s): F41.9 - ANXIETY DISORDER, UNSPECIFIED plan continue as per gi continue abx hydration close monitoring
--- NOTE | 2017-01-27 16:03 | PN ---
Progress Note, Physician History of Present Illness: abd pain still present mentions after she ate ice cream pain increased no pain quite a bit and she stopped eating - Current Medication List Current Medications: Active Medications Albuterol Sulfate (Ventolin 0.083% Nebulizer Soln -) 1 amp NEB Q6H PRN PRN Reason: SHORT OF BREATH/WHEEZING Last Admin: 01/25/17 10:30 Dose: 1 amp Alprazolam (Xanax -) 1 mg PO BID [facility] Last Admin: 01/27/17 09:43 Dose: 1 mg Carvedilol (Coreg -) 3.125 mg PO BID [facility] Last Admin: 01/27/17 09:43 Dose: 3.125 mg Enoxaparin Sodium (Lovenox -) 40 mg SQ DAILY [facility] Last Admin: 01/27/17 09:55 Dose: 40 mg Gabapentin (Neurontin -) 800 mg PO TID [facility] Last Admin: 01/27/17 14:17 Dose: 800 mg Hydromorphone HCl (Dilaudid Injection -) 1 mg IVPB Q3H PRN PRN Reason: PAIN Last Admin: 01/27/17 15:34 Dose: 1 mg Sodium Chloride (Normal Saline -) 1,000 mls @ 75 mls/hr IV ASDIR [facility] Last Admin: 01/27/17 15:36 Dose: 75 mls/hr Piperacillin Sod/Tazobactam (Sod 4.5 gm/ Dextrose) 100 mls @ 200 mls/hr IVPB Q8H-IV GABI PRN Reason: Protocol Stop: 01/30/17 18:29 Last Admin: 01/27/17 09:55 Dose: 200 mls/hr Pantoprazole Sodium 40 mg/ (Dextrose) 100 mls @ 200 mls/hr IVPB DAILY [facility] Last Admin: 01/27/17 10:29 Dose: 200 mls/hr Potassium Chloride (Potassium Chloride 10 Meq Premix Ivpb -) 100 mls @ 100 mls/ hr IVPB Q60M [facility] Stop: 01/27/17 16:19 Last Admin: 01/27/17 14:42 Dose: 100 mls/hr Insulin Aspart (Novolog Vial Sliding Scale -) 1 vial SQ TIDAC [facility] PRN Reason: Protocol Last Admin: 01/27/17 11:32 Dose: 2 unit Insulin Aspart (Novolog Vial Sliding Scale -) 1 vial SQ HS [facility] PRN Reason: Protocol Last Admin: 01/26/17 21:12 Dose: Not Given Lisinopril (Prinivil) 2.5 mg PO DAILY [facility] Last Admin: 01/27/17 09:43 Dose: 2.5 mg Lorazepam (Ativan Injection -) 0.5 mg IVPUSH BID PRN PRN Reason: ANXIETY Last Admin: 01/26/17 22:37 Dose: 0.5 mg Metoprolol Tartrate (Lopressor Injection -) 5 mg IVPB Q4H PRN PRN Reason: HYPERTENSION Ondansetron HCl (Zofran Injection) 4 mg IVPB Q6H PRN PRN Reason: NAUSEA Last Admin: 01/23/17 10:44 Dose: 4 mg - Objective Vital Signs: Vital Signs Temperature 97.8 F 01/27/17 14:08 Pulse Rate 53 L 01/27/17 14:08 Respiratory Rate 18 01/27/17 08:00 Blood Pressure 97/76 01/27/17 14:08 O2 Sat by Pulse Oximetry (%) 97 01/27/17 09:00 Constitutional: Yes: Calm, Mild Distress Cardiovascular: Yes: Regular Rate and Rhythm Respiratory: Yes: Regular, CTA Bilaterally Gastrointestinal: Yes: Tenderness, Other (absent bowel sounds) Musculoskeletal: Yes: WNL Extremities: Yes: WNL Neurological: Yes: Alert, Oriented Psychiatric: Yes: Alert, Oriented Labs: CBC, BMP 01/27/17 06:05 01/27/17 06:05 - ....Imaging Cat Scan: Report Reviewed, Image Reviewed Assessment/Plan Assessment/Plan (1) Acute diverticulitis of intestine Code(s): K57.92 - DVTRCLI OF INTEST, PART UNSP, W/O PERF OR ABSCESS W/O BLEED (2) CAD (coronary artery disease) Code(s): I25.10 - ATHSCL HEART DISEASE OF [place] CORONARY ARTERY W/O ANG PCTRS Qualifiers: Coronary Disease-Associated Artery/Lesion type: [place] artery [place] vs. transplanted heart: [place] heart Associated angina: without angina Qualified Code(s): I25.10 - Atherosclerotic heart disease of [place] coronary artery without angina pectoris (3) CHF (congestive heart failure), NYHA class I Code(s): I50.9 - HEART FAILURE, UNSPECIFIED Qualifiers: Congestive heart failure type: systolic Congestive heart failure chronicity: chronic Qualified Code(s): I50.22 - Chronic systolic ( congestive) heart failure (4) COPD (chronic obstructive pulmonary disease) Code(s): J44.9 - CHRONIC OBSTRUCTIVE PULMONARY DISEASE, UNSPECIFIED Qualifiers : COPD type: unspecified COPD Qualified Code(s): J44.9 - Chronic obstructive pulmonary disease, unspecified (5) Diabetes mellitus Code(s): E11.9 - TYPE 2 DIABETES MELLITUS WITHOUT COMPLICATIONS Qualifiers: Diabetes mellitus type: type 2 Diabetes mellitus complication status: without complication (6) Single implantable cardioverter-defibrillator (ICD) in situ Code(s): Z95.810 - PRESENCE OF AUTOMATIC (IMPLANTABLE) CARDIAC DEFIBRILLATOR (7) Hypertension Code(s): I10 - ESSENTIAL (PRIMARY) HYPERTENSION Qualifiers: Hypertension type: essential hypertension Qualified Code(s): I10 - Essential (primary) hypertension (8) Anxiety Code(s): F41.9 - ANXIETY DISORDER, UNSPECIFIED plan continue abx i think patient should be kept npo continue close monitoring rest as per primary
--- NOTE | 2017-01-27 18:00 | PN ---
Progress Note, Physician History of Present Illness: Still has abdominal pain. No dyspnea or chest pain. - Current Medication List Current Medications: Active Medications Albuterol Sulfate (Ventolin 0.083% Nebulizer Soln -) 1 amp NEB Q6H PRN PRN Reason: SHORT OF BREATH/WHEEZING Last Admin: 01/25/17 10:30 Dose: 1 amp Alprazolam (Xanax -) 1 mg PO BID [facility] Last Admin: 01/27/17 09:43 Dose: 1 mg Carvedilol (Coreg -) 3.125 mg PO BID [facility] Last Admin: 01/27/17 09:43 Dose: 3.125 mg Enoxaparin Sodium (Lovenox -) 40 mg SQ DAILY [facility] Last Admin: 01/27/17 09:55 Dose: 40 mg Gabapentin (Neurontin -) 800 mg PO TID [facility] Last Admin: 01/27/17 14:17 Dose: 800 mg Hydromorphone HCl (Dilaudid Injection -) 1 mg IVPB Q3H PRN PRN Reason: PAIN Last Admin: 01/27/17 15:34 Dose: 1 mg Sodium Chloride (Normal Saline -) 1,000 mls @ 75 mls/hr IV ASDIR [facility]ABI Last Admin: 01/27/17 15:36 Dose: 75 mls/hr Piperacillin Sod/Tazobactam (Sod 4.5 gm/ Dextrose) 100 mls @ 200 mls/hr IVPB Q8H-IV [facility]ABI PRN Reason: Protocol Stop: 01/30/17 18:29 Last Admin: 01/27/17 09:55 Dose: 200 mls/hr Pantoprazole Sodium 40 mg/ (Dextrose) 100 mls @ 200 mls/hr IVPB DAILY [facility] Last Admin: 01/27/17 10:29 Dose: 200 mls/hr Insulin Aspart (Novolog Vial Sliding Scale -) 1 vial SQ TIDAC GABI PRN Reason: Protocol Last Admin: 01/27/17 16:55 Dose: Not Given Insulin Aspart (Novolog Vial Sliding Scale -) 1 vial SQ HS GABI PRN Reason: Protocol Last Admin: 01/26/17 21:12 Dose: Not Given Lisinopril (Prinivil) 2.5 mg PO DAILY [facility] Last Admin: 01/27/17 09:43 Dose: 2.5 mg Lorazepam (Ativan Injection -) 0.5 mg IVPUSH BID PRN PRN Reason: ANXIETY Last Admin: 01/26/17 22:37 Dose: 0.5 mg Metoprolol Tartrate (Lopressor Injection -) 5 mg IVPB Q4H PRN PRN Reason: HYPERTENSION Ondansetron HCl (Zofran Injection) 4 mg IVPB Q6H PRN PRN Reason: NAUSEA Last Admin: 01/23/17 10:44 Dose: 4 mg - Objective Vital Signs: Vital Signs Temperature 97.8 F 01/27/17 14:08 Pulse Rate 53 L 01/27/17 14:08 Respiratory Rate 18 01/27/17 08:00 Blood Pressure 97/76 01/27/17 14:08 O2 Sat by Pulse Oximetry (%) 97 01/27/17 09:00 Constitutional: Yes: No Distress Eyes: No: Sclera Icterus HENT: Yes: Atraumatic, Normocephalic Neck: Yes: Supple, Trachea Midline Cardiovascular: Yes: Regular Rate and Rhythm. No: JVD Respiratory: Yes: CTA Bilaterally Gastrointestinal: Yes: Soft. No: Tenderness (mild tenderness diffusely) Extremities: No: Calf Tenderness Edema: No Neurological: Yes: Alert, Oriented Labs: CBC, BMP 01/27/17 06:05 01/27/17 06:05 Assessment/Plan COPD- mild; respiratory status stable ISELA-uses CPAP several times per week at home. Pt has not felt the need to use it in hospital. Diverticulitis- pain persists Lung [id number] increased in size over 4 years. Plan Albuterol O2 to maintain SaO2 greater than 90 Antibiotics, fluids GI and surgical monitoring in progress Repeat CT chest in one year
--- NOTE | 2017-01-27 18:12 | PN ---
GI Progress Note Subjective: GASTROENTEROLOGY CT SCAN WITH RESOLVED DIVERTICULITIS NO INCREASED WBC NO FEVER CRP DECREASING STILL C/O PAIN, GETTING NARCOTICS (DILAUDID 1 MG EVERY THREE HOURS STATES HAD ICE CREAM AND HAD VERY BAD LLQ PAIN NOW BACK ON CLEAR LIQUID DIET - Objective Vital Signs: Vital Signs Temperature 97.8 F 01/27/17 14:08 Pulse Rate 53 L 01/27/17 14:08 Respiratory Rate 18 01/27/17 08:00 Blood Pressure 97/76 01/27/17 14:08 O2 Sat by Pulse Oximetry (%) 97 01/27/17 09:00 Constitutional: Well Nourished, Obese Eyes: Yes: Conjunctiva Clear HENT: Yes: Normocephalic Neck: Yes: Supple Cardiovascular: Yes: Regular Rate and Rhythm Respiratory: Yes: Regular Gastrointestinal Inspection: Yes: WNL ...Auscultate: Yes: Normoactive Bowel Sounds ...Palpate: Yes: Soft, Tenderness (SOFT ABDOMEN NO GUARDING OR REBOUND STES LLQ PAIN) Extremities: Yes: WNL Labs: CBC, BMP 01/27/17 06:05 01/27/17 06:05 Problem List - Problems (1) Acute diverticulitis of intestine Assessment/Plan: I AM NOT SURE IF PAIN FROM DIVERTICULTITIS; DIVERTICULAR DISEASE WITH CONSTIPATION; DRUG SEEKING??? PMD DISCUSSED WITH SURGERY AWAIT FOLLOW UP WOULD D/C DILAUDID AND USE LOW DOSE PERCOCET OR ACETAMINOPHEN ADD COLACE 300 MG PO QDAY GET FLAT AND UPRIGHT IN AM CHECK STOOL BURDEN MITZI LOPEZ MD Code(s): K57.92 - DVTRCLI OF INTEST, PART UNSP, W/O PERF OR ABSCESS W/O BLEED (2) CAD (coronary artery disease) Code(s): I25.10 - ATHSCL HEART DISEASE OF [place] CORONARY ARTERY W/O ANG PCTRS Qualifiers: Coronary Disease-Associated Artery/Lesion type: [place] artery [place] vs. transplanted heart: [place] heart Associated angina: without angina Qualified Code(s): I25.10 - Atherosclerotic heart disease of [place] coronary artery without angina pectoris (3) COPD (chronic obstructive pulmonary disease) Code(s): J44.9 - CHRONIC OBSTRUCTIVE PULMONARY DISEASE, UNSPECIFIED Qualifiers : COPD type: unspecified COPD Qualified Code(s): J44.9 - Chronic obstructive pulmonary disease, unspecified (4) Constipation Code(s): K59.00 - CONSTIPATION, UNSPECIFIED Qualifiers: Constipation type: drug induced constipation Qualified Code(s): K59.03 - Drug induced constipation (5) Diabetes mellitus Code(s): E11.9 - TYPE 2 DIABETES MELLITUS WITHOUT COMPLICATIONS Qualifiers: Diabetes mellitus type: type 2 Diabetes mellitus complication status: with hyperglycemia Diabetes mellitus [employer] insulin use: without fdc use Qualified Code(s): E11.65 - Type 2 diabetes mellitus with hyperglycemia; Z79.4 - senior living (current) use of insulin (6) Renal insufficiency Code(s): N28.9 - DISORDER OF KIDNEY AND URETER, UNSPECIFIED (7) Single implantable cardioverter-defibrillator (ICD) in situ Code(s): Z95.810 - PRESENCE OF AUTOMATIC (IMPLANTABLE) CARDIAC DEFIBRILLATOR (8) Status post insertion of drug-eluting stent into left anterior descending artery for coronary artery disease Code(s): Z98.61 - CORONARY ANGIOPLASTY STATUS (9) Status post myocardial infarction of anterior wall Code(s): I25.2 - OLD MYOCARDIAL INFARCTION (10) Abdominal pain Code(s): R10.9 - UNSPECIFIED ABDOMINAL PAIN Qualifiers: Abdominal location: right upper quadrant Qualified Code(s): R10.11 - Right upper quadrant pain (11) Sleep apnea Code(s): G47.30 - SLEEP APNEA, UNSPECIFIED Qualifiers: Sleep apnea type: obstructive Qualified Code(s): G47.33 - Obstructive sleep apnea (adult) (pediatric)
[2017-01-27] MEDS: LORAZEPAM CARPU-JECT 2 MG/ML DISP.SYRIN IVPUSH PRN (22:15)
[2017-01-28] MEDS ORDERED: DEXTROSE 5%-WATER 100 ML IVPB ONE ×4 (01:35→17:20)
[2017-01-28] MEDS ORDERED: PIPERACILLIN/TAZOBACTAM 4.5 GM VIAL IVPB ONE ×3 (01:35→17:20)
[2017-01-28] MEDS: PIPERACILLIN/TAZOB 4.5 GM 4.5 GM in DEXTROSE 5%-WATER 100 ML IVPB SCH ×3 (01:37→17:31)
[2017-01-28] MEDS: HYDROmorphone HCL CARPU-JECT 1 MG/1 ML DISP.SYRIN IVPB PRN ×5 (04:18→23:30)
[2017-01-28] MEDS: SODIUM CHLORIDE 1,000 ML IV SCH ×2 (05:06→22:29)
[2017-01-28] MEDS: GABAPENTIN 400 MG CAPSULE (FP) PO SCH ×3 (06:07→21:55)
[2017-01-28] MEDS: INSULIN SLIDING SCALE (NOVOLOG) 1 VIAL SQ SCH ×4 (06:07→22:00)
[2017-01-28 07:52] LABS: BASOPHIL 0.3 % (0-2.0); EOSINOPHIL 4.9 % (0-4.5); MCH 32.9 pg (25.7-33.7); MCHC 35.1 g/dl (32.0-36.0); MEAN CELL VOLUME 93.9 fl (80-96); MEAN PLT VOLUME 7.4 fl (7.5-11.1); NEUTROPHILS 57.9 % (42.8-82.8); PLATELET COUNT 182 K/MM3 (134-434); RDW 13.7 % (11.6-15.6); WHITE BLOOD COUNT 4.7 K/mm3 (4.0-10.0)
[2017-01-28 08:00] LABS: ANION GAP 9 (8-16); CO2 26 mmol/L (21-32); CREATININE 0.6 mg/dL (0.55-1.02); GLUCOSE,RANDOM 105 mg/dL (74-106); MAGNESIUM 1.9 mg/dL (1.8-2.4); PHOSPHOROUS 3.2 mg/dL (2.5-4.9)
--- NOTE | 2017-01-28 09:02 | PN ---
Progress Note (short form) - Note Progress Note: Less pain today Blood sugar acceptable No hypos Vital Signs Period Temp Pulse Resp BP Sys/Riley Pulse Ox Last 24 Hr 97.8 F-98.2 F 53-65 18-20 131-146/74-86 98-99 PE: AOx3 Neck: Supple, No JVD HEENT: EOMI Lungs: CTA CVS: S1S2 Abd: soft, BS present. mild LLQ tenderness EXt: No edema Neuro: No focal deficit CBC,CMP WBC 4.7 K/mm3 (4.0-10.0) 01/28/17 06:05 RBC 3.75 M/mm3 (3.60-5.2) 01/28/17 06:05 Hgb 12.3 GM/dL (10.7-15.3) 01/28/17 06:05 Hct 35.2 % (32.4-45.2) 01/28/17 06:05 MCV 93.9 fl (80-96) 01/28/17 06:05 MCH 32.9 pg (25.7-33.7) 01/28/17 06:05 MCHC 35.1 g/dl (32.0-36.0) 01/28/17 06:05 RDW 13.7 % (11.6-15.6) 01/28/17 06:05 Plt Count 182 K/MM3 (134-434) 01/28/17 06:05 MPV 7.4 fl (7.5-11.1) L 01/28/17 06:05 Neutrophils % 57.9 % (42.8-82.8) 01/28/17 06:05 Lymphocytes % 29.4 % (8-40) 01/28/17 06:05 Monocytes % 7.5 % (3.8-10.2) 01/28/17 06:05 Eosinophils % 4.9 % (0-4.5) H 01/28/17 06:05 Basophils % 0.3 % (0-2.0) 01/28/17 06:05 ESR 20 mm/hr (0-30) 01/24/17 08:15 Sodium 144 mmol/L (136-145) 01/28/17 06:05 Potassium 3.6 mmol/L (3.5-5.1) 01/28/17 06:05 Chloride 109 mmol/L (98-107) H 01/28/17 06:05 Carbon Dioxide 26 mmol/L (21-32) 01/28/17 06:05 Anion Gap 9 (8-16) 01/28/17 06:05 BUN 3 mg/dL (7-18) L D 01/28/17 06:05 Creatinine 0.6 mg/dL (0.55-1.02) 01/28/17 06:05 Creat Clearance w eGFR > 60 (>60) 01/25/17 05:35 POC Glucometer 114 UNITS (()) 01/28/17 05:55 Random Glucose 105 mg/dL (74-106) 01/28/17 06:05 Calcium 8.0 mg/dL (8.5-10.1) L 01/28/17 06:05 Phosphorus 3.2 mg/dL (2.5-4.9) D 01/28/17 06:05 Magnesium 1.9 mg/dL (1.8-2.4) 01/28/17 06:05 Total Bilirubin 0.6 mg/dL (0.2-1.0) 01/25/17 05:35 AST 37 U/L (15-37) D 01/25/17 05:35 ALT 51 U/L (12-78) 01/25/17 05:35 Alkaline Phosphatase 114 U/L (45-117) 01/25/17 05:35 Creatine Kinase 50 IU/L (26-192) 01/23/17 00:30 Troponin I < 0.02 ng/ml (0.00-0.05) 01/23/17 00:30 C-Reactive Protein 1.8 MG/DL (0.00-0.3) H D 01/25/17 05:35 Total Protein 5.7 g/dl (6.4-8.2) L 01/25/17 05:35 Albumin 3.1 g/dl (3.4-5.0) L 01/25/17 05:35 Total Amylase 26 U/L (25-115) D 01/23/17 00:30 Lipase 131 U/L (73-393) 01/23/17 00:30 Serum , Qual Negative 01/23/17 00:30 Current Medications Generic Name Dose Route Start Last Admin Trade Name Freq PRN Reason Stop Dose Admin Albuterol Sulfate 1 amp 01/23/17 02:52 01/25/17 10:30 Ventolin 0.083% Nebulizer Soln - NEB 1 amp Q6H PRN Administration SHORT OF BREATH/WHEEZING Alprazolam 1 mg 01/23/17 10:00 01/27/17 21:13 Xanax - PO 1 mg BID GABI Administration Carvedilol 3.125 mg 01/26/17 22:00 01/27/17 21:13 Coreg - PO 3.125 mg BID GABI Administration Enoxaparin Sodium 40 mg 01/24/17 19:45 01/27/17 09:55 Lovenox - SQ 40 mg DAILY GABI Administration Gabapentin 800 mg 01/23/17 06:00 01/28/17 06:07 Neurontin - PO 800 mg TID GABI Administration Hydromorphone HCl 1 mg 01/25/17 14:59 01/28/17 07:25 Dilaudid Injection - IVPB 1 mg Q3H PRN Administration PAIN Sodium Chloride 1,000 mls @ 75 mls/hr 01/23/17 03:00 01/28/17 05:06 Normal Saline - IV 75 mls/hr ASDIR GABI Administration Piperacillin Sod/Tazobactam 100 mls @ 200 mls/hr 01/26/17 18:00 01/28/17 01:37 Sod 4.5 gm/ Dextrose IVPB 01/30/17 18:29 200 mls/hr Q8H-IV GABI Administration Protocol Pantoprazole Sodium 40 mg/ 100 mls @ 200 mls/hr 01/27/17 10:30 01/27/17 10:29 Dextrose IVPB 200 mls/hr DAILY GABI Administration Insulin Aspart 1 vial 01/23/17 16:30 01/28/17 06:07 Novolog Vial Sliding Scale - SQ Not Given TIDAC GABI Protocol Insulin Aspart 1 vial 01/24/17 22:00 01/27/17 21:13 Novolog Vial Sliding Scale - SQ 2 units HS GABI Administration Protocol Lisinopril 2.5 mg 01/27/17 10:00 01/27/17 09:43 Prinivil PO 2.5 mg DAILY GABI Administration Lorazepam 0.5 mg 01/23/17 13:25 01/27/17 22:15 Ativan Injection - IVPUSH 0.5 mg BID PRN Administration ANXIETY Metoprolol Tartrate 5 mg 01/23/17 13:24 Lopressor Injection - IVPB Q4H PRN HYPERTENSION Ondansetron HCl 4 mg 01/23/17 02:49 01/23/17 10:44 Zofran Injection IVPB 4 mg Q6H PRN Administration NAUSEA AP: Abd pain/Sigmoid Diverticulitis DM Uncontrolled COPD CHF ICD implant BGM acceptable, Highest 229, Had apple juice Tolerating liquids No long acting Insulin for now BGM QACHS Off Metformin for now b/o GI symptoms Novolog SS coverage IV abx
--- NOTE | 2017-01-28 09:56 | PN ---
Progress Note, Physician Chief Complaint: abd pain History of Present Illness: pt feels better than yesterday. hungry. had some pudding this am and did okay. c/o some anal swelling with loose BM - Current Medication List Current Medications: Active Medications Albuterol Sulfate (Ventolin 0.083% Nebulizer Soln -) 1 amp NEB Q6H PRN PRN Reason: SHORT OF BREATH/WHEEZING Last Admin: 01/25/17 10:30 Dose: 1 amp Alprazolam (Xanax -) 1 mg PO BID [facility] Last Admin: 01/27/17 21:13 Dose: 1 mg Carvedilol (Coreg -) 3.125 mg PO BID [facility] Last Admin: 01/27/17 21:13 Dose: 3.125 mg Enoxaparin Sodium (Lovenox -) 40 mg SQ DAILY [facility] Last Admin: 01/27/17 09:55 Dose: 40 mg Gabapentin (Neurontin -) 800 mg PO TID [facility] Last Admin: 01/28/17 06:07 Dose: 800 mg Hydromorphone HCl (Dilaudid Injection -) 1 mg IVPB Q3H PRN PRN Reason: PAIN Last Admin: 01/28/17 07:25 Dose: 1 mg Sodium Chloride (Normal Saline -) 1,000 mls @ 75 mls/hr IV ASDIR [facility] Last Admin: 01/28/17 05:06 Dose: 75 mls/hr Piperacillin Sod/Tazobactam (Sod 4.5 gm/ Dextrose) 100 mls @ 200 mls/hr IVPB Q8H-IV GABI PRN Reason: Protocol Stop: 01/30/17 18:29 Last Admin: 01/28/17 01:37 Dose: 200 mls/hr Pantoprazole Sodium 40 mg/ (Dextrose) 100 mls @ 200 mls/hr IVPB DAILY [facility] Last Admin: 01/27/17 10:29 Dose: 200 mls/hr Insulin Aspart (Novolog Vial Sliding Scale -) 1 vial SQ TIDAC [facility]I PRN Reason: Protocol Last Admin: 01/28/17 06:07 Dose: Not Given Insulin Aspart (Novolog Vial Sliding Scale -) 1 vial SQ HS GABI PRN Reason: Protocol Last Admin: 01/27/17 21:13 Dose: 2 units Lisinopril (Prinivil) 2.5 mg PO DAILY [facility] Last Admin: 01/27/17 09:43 Dose: 2.5 mg Lorazepam (Ativan Injection -) 0.5 mg IVPUSH BID PRN PRN Reason: ANXIETY Last Admin: 01/27/17 22:15 Dose: 0.5 mg Metoprolol Tartrate (Lopressor Injection -) 5 mg IVPB Q4H PRN PRN Reason: HYPERTENSION Ondansetron HCl (Zofran Injection) 4 mg IVPB Q6H PRN PRN Reason: NAUSEA Last Admin: 01/23/17 10:44 Dose: 4 mg - Objective Vital Signs: Vital Signs Temperature 97.6 F 01/28/17 07:45 Pulse Rate 54 L 01/28/17 07:45 Respiratory Rate 18 01/28/17 07:45 Blood Pressure 119/78 01/28/17 07:45 O2 Sat by Pulse Oximetry (%) 98 01/27/17 21:00 Constitutional: Yes: No Distress, Calm Eyes: Yes: Conjunctiva Clear, EOM Intact HENT: Yes: Atraumatic, Normocephalic Neck: Yes: Supple, Trachea Midline Cardiovascular: Yes: Regular Rate and Rhythm Respiratory: Yes: Regular, CTA Bilaterally Gastrointestinal: Yes: Soft, Tenderness (min tenderness. distracted patient for exam). No: Distention ...Rectal Exam: Yes: Hemorrhoids/External, Other (no anorectal induration or swelling. likely prolapsing hemorrhoid when she has BM?) Genitourinary: No: CVA Tenderness - Left, CVA Tenderness - Right Breast(s): No: Nipple Inversion, Skin Changes Musculoskeletal: No: Joint Stiffness, Joint Swelling Extremities: No: Calf Tenderness, Erythema Integumentary: No: Erythema, Rash Neurological: Yes: Alert, Oriented Psychiatric: Yes: Alert, Oriented Labs: CBC, BMP 01/28/17 06:05 01/28/17 06:05 Problem List - Problems (1) Acute diverticulitis of intestine Assessment/Plan: doing better regular diet wean off pain medication re-assured patient d/c planning with oral abx Code(s): K57.92 - DVTRCLI OF INTEST, PART UNSP, W/O PERF OR ABSCESS W/O BLEED (2) CAD (coronary artery disease) Code(s): I25.10 - ATHSCL HEART DISEASE OF [place] CORONARY ARTERY W/O ANG PCTRS Qualifiers: Coronary Disease-Associated Artery/Lesion type: [place] artery [place] vs. transplanted heart: [place] heart Associated angina: without angina Qualified Code(s): I25.10 - Atherosclerotic heart disease of [place] coronary artery without angina pectoris (3) CHF (congestive heart failure), NYHA class I Code(s): I50.9 - HEART FAILURE, UNSPECIFIED Qualifiers: Congestive heart failure type: systolic Congestive heart failure chronicity: chronic Qualified Code(s): I50.22 - Chronic systolic ( congestive) heart failure (4) COPD (chronic obstructive pulmonary disease) Code(s): J44.9 - CHRONIC OBSTRUCTIVE PULMONARY DISEASE, UNSPECIFIED Qualifiers : COPD type: unspecified COPD Qualified Code(s): J44.9 - Chronic obstructive pulmonary disease, unspecified (5) Diverticulitis Code(s): K57.92 - DVTRCLI OF INTEST, PART UNSP, W/O PERF OR ABSCESS W/O BLEED Qualifiers: Diverticulitis site: large intestine Diverticulitis bleeding: without bleeding Diverticulitis complication: without perforation or abscess Qualified Code(s): K57.32 - Diverticulitis of large intestine without perforation or abscess without bleeding
[2017-01-28] MEDS ORDERED: PANTOPRAZOLE SODIUM 40 MG VIAL ONE (10:30)
[2017-01-28] MEDS: ALPRAZolam 2 MG TABLET PO SCH ×2 (10:35→21:55)
[2017-01-28] MEDS: CARVEDILOL 3.125 MG TABLET (FP) PO SCH ×2 (10:35→21:55)
[2017-01-28] MEDS: LISINOPRIL 5 MG TABLET (FP) PO SCH (10:36)
[2017-01-28] MEDS: ENOXAPARIN NA (PORCINE) 40 MG/0.4 ML DISP.SYRIN SQ SCH (10:36)
[2017-01-28] MEDS: PANTOPRAZOLE SODIUM 40 MG in DEXTROSE 5%-WATER 100 ML IVPB SCH (10:38)
--- NOTE | 2017-01-28 10:47 | PN ---
Progress Note, Physician History of Present Illness: LLQ abdominal pain improving, tolerating clear liquids, no fevers or chills. Repeat abd/pelvic CT shows interval improvement. - Current Medication List Current Medications: Active Medications Albuterol Sulfate (Ventolin 0.083% Nebulizer Soln -) 1 amp NEB Q6H PRN PRN Reason: SHORT OF BREATH/WHEEZING Last Admin: 01/25/17 10:30 Dose: 1 amp Alprazolam (Xanax -) 1 mg PO BID [facility] Last Admin: 01/28/17 10:35 Dose: 1 mg Carvedilol (Coreg -) 3.125 mg PO BID [facility] Last Admin: 01/28/17 10:35 Dose: 3.125 mg Enoxaparin Sodium (Lovenox -) 40 mg SQ DAILY [facility] Last Admin: 01/28/17 10:36 Dose: 40 mg Gabapentin (Neurontin -) 800 mg PO TID [facility] Last Admin: 01/28/17 06:07 Dose: 800 mg Hydromorphone HCl (Dilaudid Injection -) 1 mg IVPB Q3H PRN PRN Reason: PAIN Last Admin: 01/28/17 07:25 Dose: 1 mg Sodium Chloride (Normal Saline -) 1,000 mls @ 75 mls/hr IV ASDIR [facility] Last Admin: 01/28/17 05:06 Dose: 75 mls/hr Piperacillin Sod/Tazobactam (Sod 4.5 gm/ Dextrose) 100 mls @ 200 mls/hr IVPB Q8H-IV GABI PRN Reason: Protocol Stop: 01/30/17 18:29 Last Admin: 01/28/17 10:39 Dose: 200 mls/hr Pantoprazole Sodium 40 mg/ (Dextrose) 100 mls @ 200 mls/hr IVPB DAILY [facility] Last Admin: 01/28/17 10:38 Dose: 200 mls/hr Insulin Aspart (Novolog Vial Sliding Scale -) 1 vial SQ TIDAC [facility]I PRN Reason: Protocol Last Admin: 01/28/17 06:07 Dose: Not Given Insulin Aspart (Novolog Vial Sliding Scale -) 1 vial SQ HS GABI PRN Reason: Protocol Last Admin: 01/27/17 21:13 Dose: 2 units Lisinopril (Prinivil) 2.5 mg PO DAILY [facility] Last Admin: 01/28/17 10:36 Dose: 2.5 mg Lorazepam (Ativan Injection -) 0.5 mg IVPUSH BID PRN PRN Reason: ANXIETY Last Admin: 01/27/17 22:15 Dose: 0.5 mg Metoprolol Tartrate (Lopressor Injection -) 5 mg IVPB Q4H PRN PRN Reason: HYPERTENSION Ondansetron HCl (Zofran Injection) 4 mg IVPB Q6H PRN PRN Reason: NAUSEA Last Admin: 01/23/17 10:44 Dose: 4 mg - Objective Vital Signs: Vital Signs Temperature 97.6 F 01/28/17 07:45 Pulse Rate 54 L 01/28/17 07:45 Respiratory Rate 18 01/28/17 07:45 Blood Pressure 119/78 01/28/17 07:45 O2 Sat by Pulse Oximetry (%) 98 01/27/17 21:00 Constitutional: Yes: No Distress, Calm Neck: Yes: Supple Cardiovascular: Yes: Regular Rate and Rhythm Respiratory: Yes: Regular, Diminished Gastrointestinal: Yes: Soft, Hypoactive Bowel Sounds Edema: No Labs: CBC, BMP 01/28/17 06:05 01/28/17 06:05 Problem List - Problems (1) Acute diverticulitis of intestine Code(s): K57.92 - DVTRCLI OF INTEST, PART UNSP, W/O PERF OR ABSCESS W/O BLEED (2) CAD (coronary artery disease) Code(s): I25.10 - ATHSCL HEART DISEASE OF [place] CORONARY ARTERY W/O ANG PCTRS Qualifiers: Coronary Disease-Associated Artery/Lesion type: [place] artery [place] vs. transplanted heart: [place] heart Associated angina: without angina Qualified Code(s): I25.10 - Atherosclerotic heart disease of [place] coronary artery without angina pectoris (3) COPD (chronic obstructive pulmonary disease) Code(s): J44.9 - CHRONIC OBSTRUCTIVE PULMONARY DISEASE, UNSPECIFIED Qualifiers : COPD type: unspecified COPD Qualified Code(s): J44.9 - Chronic obstructive pulmonary disease, unspecified (4) Constipation Code(s): K59.00 - CONSTIPATION, UNSPECIFIED Qualifiers: Constipation type: drug induced constipation Qualified Code(s): K59.03 - Drug induced constipation (5) Diabetes mellitus Code(s): E11.9 - TYPE 2 DIABETES MELLITUS WITHOUT COMPLICATIONS Qualifiers: Diabetes mellitus type: type 2 Diabetes mellitus complication status: with hyperglycemia Diabetes mellitus long term care social worker insulin use: without long term care social worker use Qualified Code(s): E11.65 - Type 2 diabetes mellitus with hyperglycemia; Z79.4 - terminal make up operator (current) use of insulin (6) Diverticulitis large intestine w/o perforation or abscess w/o bleeding Code(s): K57.32 - DVTRCLI OF LG INT W/O PERFORATION OR ABSCESS W/O BLEEDING (7) Chronic left ventricular systolic dysfunction Code(s): I51.9 - HEART DISEASE, UNSPECIFIED (8) Single implantable cardioverter-defibrillator (ICD) in situ Code(s): Z95.810 - PRESENCE OF AUTOMATIC (IMPLANTABLE) CARDIAC DEFIBRILLATOR (9) Status post insertion of drug-eluting stent into left anterior descending artery for coronary artery disease Code(s): Z98.61 - CORONARY ANGIOPLASTY STATUS (10) Status post myocardial infarction of anterior wall Code(s): I25.2 - OLD MYOCARDIAL INFARCTION (11) Hyperlipidemia Code(s): E78.5 - HYPERLIPIDEMIA, UNSPECIFIED Qualifiers: Hyperlipidemia type: pure hypercholesterolemia Qualified Code(s): E78.00 - Pure hypercholesterolemia, unspecified; E78.0 - Pure hypercholesterolemia (12) Hypertension Code(s): I10 - ESSENTIAL (PRIMARY) HYPERTENSION Qualifiers: Hypertension type: essential hypertension Qualified Code(s): I10 - Essential (primary) hypertension (13) Sleep apnea Code(s): G47.30 - SLEEP APNEA, UNSPECIFIED Qualifiers: Sleep apnea type: obstructive Qualified Code(s): G47.33 - Obstructive sleep apnea (adult) (pediatric) Assessment/Plan Echocardiography dated 11/23 revealed LV mildly dilated with wall motion abnormality, EF mildly reduced, moderate MR and mild TR MPI study dated 11/22 revealed mildly reduced EF with apical fixed defect infarct [facility]& coronary angiography dated 11/23 revealed non-obstructive CAD, patent LAD stent, moderate decreased LV systolic function with LVEF 45% with severe anterior, hannah-lateral hypokinesia 1. Acute sigmoid diverticulitis 2. CAD S/P PCI/stent, angina pectoris 3. Ischemic cardiomyopathy with history of failure S/P ICD, euvolemic 4. HTN/HCVD 5. Hypercholesterolemia 6. OSAS noncompliant with CPAP 7. History of neurocardiogenic syncope 8. Depression/anxiety/eating disorder 9. Mild COPD 10. Uncontrolled diabetes mellitus PLAN: 1. Advance diet as tolerated, resume oral meds including ASA 81 qd, Lipitor 40 qhs, carvedilol 3.125 bid, and lisinopril 2.5 qd 2. Continue DVT prophylaxis, replete K and Mg 3. CPAP nightly, bronchodilator and O2 as needed, complete abx course
[2017-01-28] MEDS ORDERED: INSULIN (NOVOLOG) ASPART 100 UNITS/ML 10ML VIAL ONE ×2 (11:07→16:45)
--- NOTE | 2017-01-28 13:42 | PN ---
Progress Note, Physician Chief Complaint: Ms Silke says she is having LLQ pain with eating, but says she is tolerating pudding today. Has flatus and had a bowel movement. No cp or sob. RN states patient is not getting out of bed. - Current Medication List Current Medications: Active Medications Albuterol Sulfate (Ventolin 0.083% Nebulizer Soln -) 1 amp NEB Q6H PRN PRN Reason: SHORT OF BREATH/WHEEZING Last Admin: 01/25/17 10:30 Dose: 1 amp Alprazolam (Xanax -) 1 mg PO BID [facility] Last Admin: 01/28/17 10:35 Dose: 1 mg Aspirin (Asa -) 81 mg PO DAILY [facility] Carvedilol (Coreg -) 3.125 mg PO BID [facility] Last Admin: 01/28/17 10:35 Dose: 3.125 mg Enoxaparin Sodium (Lovenox -) 40 mg SQ DAILY [facility] Last Admin: 01/28/17 10:36 Dose: 40 mg Gabapentin (Neurontin -) 800 mg PO TID [facility] Last Admin: 01/28/17 06:07 Dose: 800 mg Hydromorphone HCl (Dilaudid Injection -) 1 mg IVPB Q6H PRN PRN Reason: PAIN Sodium Chloride (Normal Saline -) 1,000 mls @ 75 mls/hr IV ASDIR [facility] Last Admin: 01/28/17 05:06 Dose: 75 mls/hr Piperacillin Sod/Tazobactam (Sod 4.5 gm/ Dextrose) 100 mls @ 200 mls/hr IVPB Q8H-IV GABI PRN Reason: Protocol Stop: 01/30/17 18:29 Last Admin: 01/28/17 10:39 Dose: 200 mls/hr Pantoprazole Sodium 40 mg/ (Dextrose) 100 mls @ 200 mls/hr IVPB DAILY [facility] Last Admin: 01/28/17 10:38 Dose: 200 mls/hr Insulin Aspart (Novolog Vial Sliding Scale -) 1 vial SQ TIDAC [facility] PRN Reason: Protocol Last Admin: 01/28/17 11:41 Dose: Not Given Insulin Aspart (Novolog Vial Sliding Scale -) 1 vial SQ HS [facility] PRN Reason: Protocol Last Admin: 01/27/17 21:13 Dose: 2 units Lisinopril (Prinivil) 2.5 mg PO DAILY [facility] Last Admin: 01/28/17 10:36 Dose: 2.5 mg Lorazepam (Ativan Injection -) 0.5 mg IVPUSH BID PRN PRN Reason: ANXIETY Last Admin: 01/27/17 22:15 Dose: 0.5 mg Metoprolol Tartrate (Lopressor Injection -) 5 mg IVPB Q4H PRN PRN Reason: HYPERTENSION Ondansetron HCl (Zofran Injection) 4 mg IVPB Q6H PRN PRN Reason: NAUSEA Last Admin: 01/23/17 10:44 Dose: 4 mg - Objective Vital Signs: Vital Signs Temperature 97.6 F 01/28/17 07:45 Pulse Rate 54 L 01/28/17 07:45 Respiratory Rate 18 01/28/17 07:45 Blood Pressure 119/78 01/28/17 07:45 O2 Sat by Pulse Oximetry (%) 97 01/28/17 09:00 Constitutional: Yes: Well Nourished, No Distress, Calm Cardiovascular: Yes: Regular Rate and Rhythm. No: Gallop, Murmur, Rub Respiratory: Yes: Regular, CTA Bilaterally. No: Rales, Rhonchi, Wheezes Gastrointestinal: Yes: Normal Bowel Sounds, Soft, Tenderness (LLQ, improved). No: Distention Extremities: Yes: WNL Edema: No Labs: CBC, BMP 01/28/17 06:05 01/28/17 06:05 Assessment/Plan (1) Acute diverticulitis of intestine Assessment/Plan: -patient looks much improved -continue zosyn per ID -begin to decrease pain medication, will change from q3 prn to q6 prn -patient with chronic pain, once tolerating diet will change back to oral regimen -encouraged patient to walk and sit up in a chair Code(s): K57.92 - DVTRCLI OF INTEST, PART UNSP, W/O PERF OR ABSCESS W/O BLEED (2) CAD (coronary artery disease) Assessment/Plan: -cardiology consulted and note reviewed Code(s): I25.10 - ATHSCL HEART DISEASE OF [place] CORONARY ARTERY W/O ANG PCTRS Qualifiers: Coronary Disease-Associated Artery/Lesion type: [place] artery [place] vs. transplanted heart: [place] heart Associated angina: without angina Qualified Code(s): I25.10 - Atherosclerotic heart disease of [place] coronary artery without angina pectoris (3) CHF (congestive heart failure), NYHA class I Assessment/Plan -continue IVF -cardiology following Code(s): I50.9 - HEART FAILURE, UNSPECIFIED Qualifiers: Congestive heart failure type: systolic Congestive heart failure chronicity: chronic Qualified Code(s): I50.22 - Chronic systolic ( congestive) heart failure (4) COPD (chronic obstructive pulmonary disease) Assessment/Plan: -pulmonary following -continue bronchodilators Code(s): J44.9 - CHRONIC OBSTRUCTIVE PULMONARY DISEASE, UNSPECIFIED Qualifiers : COPD type: unspecified COPD Qualified Code(s): J44.9 - Chronic obstructive pulmonary disease, unspecified (5) Diabetes mellitus Assessment/Plan: -endocrinology following and managing Code(s): E11.9 - TYPE 2 DIABETES MELLITUS WITHOUT COMPLICATIONS Qualifiers: Diabetes mellitus type: type 2 Diabetes mellitus complication status: without complication (6) Single implantable cardioverter-defibrillator (ICD) in situ Assessment/Plan: -per cardiology Code(s): Z95.810 - PRESENCE OF AUTOMATIC (IMPLANTABLE) CARDIAC DEFIBRILLATOR (7) Hypertension Assessment/Plan: -normotensive Code(s): I10 - ESSENTIAL (PRIMARY) HYPERTENSION Qualifiers: Hypertension type: essential hypertension Qualified Code(s): I10 - Essential (primary) hypertension (8) Anxiety Assessment/Plan: -monitor, patient is receiving narcotics Code(s): F41.9 - ANXIETY DISORDER, UNSPECIFIED
--- NOTE | 2017-01-28 15:08 | PN ---
Progress Note, Physician History of Present Illness: doing well no issues still has abd pain but has tolerated soft diet had a bm passing gas - Current Medication List Current Medications: Active Medications Albuterol Sulfate (Ventolin 0.083% Nebulizer Soln -) 1 amp NEB Q6H PRN PRN Reason: SHORT OF BREATH/WHEEZING Last Admin: 01/25/17 10:30 Dose: 1 amp Alprazolam (Xanax -) 1 mg PO BID [facility] Last Admin: 01/28/17 10:35 Dose: 1 mg Aspirin (Asa -) 81 mg PO DAILY [facility] Carvedilol (Coreg -) 3.125 mg PO BID [facility] Last Admin: 01/28/17 10:35 Dose: 3.125 mg Enoxaparin Sodium (Lovenox -) 40 mg SQ DAILY [facility] Last Admin: 01/28/17 10:36 Dose: 40 mg Gabapentin (Neurontin -) 800 mg PO TID [facility] Last Admin: 01/28/17 14:02 Dose: 800 mg Hydromorphone HCl (Dilaudid Injection -) 1 mg IVPB Q6H PRN PRN Reason: PAIN Sodium Chloride (Normal Saline -) 1,000 mls @ 75 mls/hr IV [facility] Last Admin: 01/28/17 05:06 Dose: 75 mls/hr Piperacillin Sod/Tazobactam (Sod 4.5 gm/ Dextrose) 100 mls @ 200 mls/hr IVPB Q8H-IV [facility] PRN Reason: Protocol Stop: 01/30/17 18:29 Last Admin: 01/28/17 10:39 Dose: 200 mls/hr Pantoprazole Sodium 40 mg/ (Dextrose) 100 mls @ 200 mls/hr IVPB DAILY [facility] Last Admin: 01/28/17 10:38 Dose: 200 mls/hr Insulin Aspart (Novolog Vial Sliding Scale -) 1 vial SQ TIDAC [facility] PRN Reason: Protocol Last Admin: 01/28/17 11:41 Dose: Not Given Insulin Aspart (Novolog Vial Sliding Scale -) 1 vial SQ HS [facility] PRN Reason: Protocol Last Admin: 01/27/17 21:13 Dose: 2 units Lisinopril (Prinivil) 2.5 mg PO DAILY [facility] Last Admin: 01/28/17 10:36 Dose: 2.5 mg Lorazepam (Ativan Injection -) 0.5 mg IVPUSH BID PRN PRN Reason: ANXIETY Last Admin: 01/27/17 22:15 Dose: 0.5 mg Metoprolol Tartrate (Lopressor Injection -) 5 mg IVPB Q4H PRN PRN Reason: HYPERTENSION Ondansetron HCl (Zofran Injection) 4 mg IVPB Q6H PRN PRN Reason: NAUSEA Last Admin: 01/23/17 10:44 Dose: 4 mg - Objective Vital Signs: Vital Signs Temperature 98.0 F 01/28/17 14:28 Pulse Rate 53 L 01/28/17 14:28 Respiratory Rate 20 01/28/17 14:28 Blood Pressure 106/76 01/28/17 14:28 O2 Sat by Pulse Oximetry (%) 97 01/28/17 09:00 Constitutional: Yes: Calm, Mild Distress Cardiovascular: Yes: Regular Rate and Rhythm Respiratory: Yes: Regular, CTA Bilaterally Gastrointestinal: Yes: Soft, Other (bowel sound present) Musculoskeletal: Yes: WNL Extremities: Yes: WNL Neurological: Yes: Alert, Oriented Psychiatric: Yes: Alert, Oriented Labs: CBC, BMP 01/28/17 06:05 01/28/17 06:05 Assessment/Plan Assessment/Plan (1) Acute diverticulitis of intestine Code(s): K57.92 - DVTRCLI OF INTEST, PART UNSP, W/O PERF OR ABSCESS W/O BLEED (2) CAD (coronary artery disease) Code(s): I25.10 - ATHSCL HEART DISEASE OF [place] CORONARY ARTERY W/O ANG PCTRS Qualifiers: Coronary Disease-Associated Artery/Lesion type: [place] artery [place] vs. transplanted heart: [place] heart Associated angina: without angina Qualified Code(s): I25.10 - Atherosclerotic heart disease of [place] coronary artery without angina pectoris (3) CHF (congestive heart failure), NYHA class I Code(s): I50.9 - HEART FAILURE, UNSPECIFIED Qualifiers: Congestive heart failure type: systolic Congestive heart failure chronicity: chronic Qualified Code(s): I50.22 - Chronic systolic ( congestive) heart failure (4) COPD (chronic obstructive pulmonary disease) Code(s): J44.9 - CHRONIC OBSTRUCTIVE PULMONARY DISEASE, UNSPECIFIED Qualifiers : COPD type: unspecified COPD Qualified Code(s): J44.9 - Chronic obstructive pulmonary disease, unspecified (5) Diabetes mellitus Code(s): E11.9 - TYPE 2 DIABETES MELLITUS WITHOUT COMPLICATIONS Qualifiers: Diabetes mellitus type: type 2 Diabetes mellitus complication status: without complication (6) Single implantable cardioverter-defibrillator (ICD) in situ Code(s): Z95.810 - PRESENCE OF AUTOMATIC (IMPLANTABLE) CARDIAC DEFIBRILLATOR (7) Hypertension Code(s): I10 - ESSENTIAL (PRIMARY) HYPERTENSION Qualifiers: Hypertension type: essential hypertension Qualified Code(s): I10 - Essential (primary) hypertension (8) Anxiety Code(s): F41.9 - ANXIETY DISORDER, UNSPECIFIED plan continue abx patient tolerating diet continue to monitor patient improving once taking full diet will switch to oral
[2017-01-28] MEDS: ONDANSETRON 4 MG/2 ML VIAL IVPB PRN (16:41)
[2017-01-28] MEDS: LORAZEPAM CARPU-JECT 2 MG/ML DISP.SYRIN IVPUSH PRN (22:23)
[2017-01-29] MEDS ORDERED: DEXTROSE 5%-WATER 100 ML IVPB ONE ×4 (00:53→17:51)
[2017-01-29] MEDS ORDERED: PIPERACILLIN/TAZOBACTAM 4.5 GM VIAL IVPB ONE ×3 (00:53→17:51)
[2017-01-29] MEDS: PIPERACILLIN/TAZOB 4.5 GM 4.5 GM in DEXTROSE 5%-WATER 100 ML IVPB SCH ×3 (01:03→17:52)
[2017-01-29] MEDS: SODIUM CHLORIDE 1,000 ML IV SCH (04:00)
[2017-01-29] MEDS: INSULIN SLIDING SCALE (NOVOLOG) 1 VIAL SQ SCH ×4 (06:19→22:01)
[2017-01-29] MEDS: GABAPENTIN 400 MG CAPSULE (FP) PO SCH ×3 (06:19→22:01)
[2017-01-29] MEDS: HYDROmorphone HCL CARPU-JECT 1 MG/1 ML DISP.SYRIN IVPB PRN ×3 (06:20→18:00)
[2017-01-29 07:23] LABS: BASOPHIL 0.4 % (0-2.0); EOSINOPHIL 4.1 % (0-4.5); MCH 32.5 pg (25.7-33.7); MCHC 34.5 g/dl (32.0-36.0); MEAN CELL VOLUME 94.2 fl (80-96); MEAN PLT VOLUME 7.3 fl (7.5-11.1); NEUTROPHILS 56.5 % (42.8-82.8); PLATELET COUNT 175 K/MM3 (134-434); RDW 13.6 % (11.6-15.6); WHITE BLOOD COUNT 5.3 K/mm3 (4.0-10.0)
[2017-01-29 07:25] LABS: ANION GAP 7 (8-16); CALCIUM 8.3 mg/dL (8.5-10.1); CO2 26 mmol/L (21-32); CREATININE 0.6 mg/dL (0.55-1.02); GLUCOSE,RANDOM 136 mg/dL (74-106); MAGNESIUM 1.8 mg/dL (1.8-2.4); PHOSPHOROUS 3.1 mg/dL (2.5-4.9)
[2017-01-29] MEDS ORDERED: PANTOPRAZOLE SODIUM 40 MG VIAL ONE (09:03)
[2017-01-29] MEDS: PANTOPRAZOLE SODIUM 40 MG in DEXTROSE 5%-WATER 100 ML IVPB SCH (09:04)
[2017-01-29] MEDS: LISINOPRIL 5 MG TABLET (FP) PO SCH (10:47)
[2017-01-29] MEDS: ALPRAZolam 2 MG TABLET PO SCH ×2 (10:47→22:00)
[2017-01-29] MEDS: ASPIRIN 81 MG CHEWABLE TABLETS PO SCH (10:47)
[2017-01-29] MEDS: CARVEDILOL 3.125 MG TABLET (FP) PO SCH ×2 (10:47→22:00)
[2017-01-29] MEDS: ENOXAPARIN NA (PORCINE) 40 MG/0.4 ML DISP.SYRIN SQ SCH (10:48)
--- NOTE | 2017-01-29 12:10 | PN ---
Progress Note, Physician Chief Complaint: Ms Edouard still complains of abdominal pain but tolerating diet. No cp or sob. - Current Medication List Current Medications: Active Medications Albuterol Sulfate (Ventolin 0.083% Nebulizer Soln -) 1 amp NEB Q6H PRN PRN Reason: SHORT OF BREATH/WHEEZING Last Admin: 01/25/17 10:30 Dose: 1 amp Alprazolam (Xanax -) 1 mg PO BID [facility] Last Admin: 01/29/17 10:47 Dose: 1 mg Aspirin (Asa -) 81 mg PO DAILY [facility] Last Admin: 01/29/17 10:47 Dose: 81 mg Carvedilol (Coreg -) 3.125 mg PO BID [facility] Last Admin: 01/29/17 10:47 Dose: 3.125 mg Enoxaparin Sodium (Lovenox -) 40 mg SQ DAILY [facility] Last Admin: 01/29/17 10:48 Dose: 40 mg Gabapentin (Neurontin -) 800 mg PO TID [facility] Last Admin: 01/29/17 06:19 Dose: 800 mg Hydromorphone HCl (Dilaudid Injection -) 1 mg IVPB Q6H PRN PRN Reason: PAIN Last Admin: 01/29/17 06:20 Dose: 1 mg Sodium Chloride (Normal Saline -) 1,000 mls @ 75 mls/hr IV ASDIR [facility] Last Admin: 01/29/17 04:00 Dose: Not Given Piperacillin Sod/Tazobactam (Sod 4.5 gm/ Dextrose) 100 mls @ 200 mls/hr IVPB Q8H-IV GABI PRN Reason: Protocol Stop: 01/30/17 18:29 Last Admin: 01/29/17 10:32 Dose: 200 mls/hr Pantoprazole Sodium 40 mg/ (Dextrose) 100 mls @ 200 mls/hr IVPB DAILY [facility] Last Admin: 01/29/17 09:04 Dose: 200 mls/hr Insulin Aspart (Novolog Vial Sliding Scale -) 1 vial SQ TIDAC GABI PRN Reason: Protocol Last Admin: 01/29/17 06:19 Dose: 2 unit Insulin Aspart (Novolog Vial Sliding Scale -) 1 vial SQ HS GABI PRN Reason: Protocol Last Admin: 01/28/17 22:00 Dose: 2 units Lisinopril (Prinivil) 2.5 mg PO DAILY [facility] Last Admin: 01/29/17 10:47 Dose: 2.5 mg Lorazepam (Ativan Injection -) 0.5 mg IVPUSH BID PRN PRN Reason: ANXIETY Last Admin: 01/28/17 22:23 Dose: 0.5 mg Metoprolol Tartrate (Lopressor Injection -) 5 mg IVPB Q4H PRN PRN Reason: HYPERTENSION Ondansetron HCl (Zofran Injection) 4 mg IVPB Q6H PRN PRN Reason: NAUSEA Last Admin: 01/28/17 16:41 Dose: 4 mg - Objective Vital Signs: Vital Signs Temperature 98.3 F 01/29/17 10:46 Pulse Rate 67 01/29/17 10:46 Respiratory Rate 20 01/29/17 10:46 Blood Pressure 149/90 01/29/17 10:46 O2 Sat by Pulse Oximetry (%) 98 01/29/17 09:00 Constitutional: Yes: Well Nourished, No Distress, Calm Cardiovascular: Yes: Regular Rate and Rhythm. No: Gallop, Murmur, Rub Respiratory: Yes: Regular, Rhonchi. No: Rales, Wheezes Gastrointestinal: Yes: Normal Bowel Sounds, Soft, Tenderness. No: Distention Extremities: Yes: WNL Edema: No Labs: CBC, BMP 01/29/17 06:20 01/29/17 06:20 Assessment/Plan (1) Acute diverticulitis of intestine Assessment/Plan: -patient continues to improve -continue zosyn -? if patient has some secondary gain concerning pain medications -monitor today -plan to change to home pain regimen tomorrow if tolerates diet -with atelectasis, ordered I/S and encouraged to ambulate Code(s): K57.92 - DVTRCLI OF INTEST, PART UNSP, W/O PERF OR ABSCESS W/O BLEED (2) CAD (coronary artery disease) Assessment/Plan: -stable Code(s): I25.10 - ATHSCL HEART DISEASE OF [place] CORONARY ARTERY W/O ANG PCTRS Qualifiers: Coronary Disease-Associated Artery/Lesion type: [place] artery [place] vs. transplanted heart: [place] heart Associated angina: without angina Qualified Code(s): I25.10 - Atherosclerotic heart disease of [place] coronary artery without angina pectoris (3) CHF (congestive heart failure), NYHA class I Assessment/Plan -continue IVF -cardiology following Code(s): I50.9 - HEART FAILURE, UNSPECIFIED Qualifiers: Congestive heart failure type: systolic Congestive heart failure chronicity: chronic Qualified Code(s): I50.22 - Chronic systolic ( congestive) heart failure (4) COPD (chronic obstructive pulmonary disease) Assessment/Plan: -pulmonary following -continue bronchodilators Code(s): J44.9 - CHRONIC OBSTRUCTIVE PULMONARY DISEASE, UNSPECIFIED Qualifiers : COPD type: unspecified COPD Qualified Code(s): J44.9 - Chronic obstructive pulmonary disease, unspecified (5) Diabetes mellitus Assessment/Plan: -endocrinology following and managing Code(s): E11.9 - TYPE 2 DIABETES MELLITUS WITHOUT COMPLICATIONS Qualifiers: Diabetes mellitus type: type 2 Diabetes mellitus complication status: without complication (6) Single implantable cardioverter-defibrillator (ICD) in situ Assessment/Plan: -per cardiology Code(s): Z95.810 - PRESENCE OF AUTOMATIC (IMPLANTABLE) CARDIAC DEFIBRILLATOR (7) Hypertension Assessment/Plan: -normotensive Code(s): I10 - ESSENTIAL (PRIMARY) HYPERTENSION Qualifiers: Hypertension type: essential hypertension Qualified Code(s): I10 - Essential (primary) hypertension (8) Anxiety Assessment/Plan: -monitor, patient is receiving narcotics -will d/c IV ativan -continue xanax Code(s): F41.9 - ANXIETY DISORDER, UNSPECIFIED
--- NOTE | 2017-01-29 13:50 | PN ---
Progress Note, Physician History of Present Illness: Pt is doing well. Still with some abdominal pain. Had one BM today, passing gas. No fever/chills. - Current Medication List Current Medications: Active Medications Albuterol Sulfate (Ventolin 0.083% Nebulizer Soln -) 1 amp NEB Q6H PRN PRN Reason: SHORT OF BREATH/WHEEZING Last Admin: 01/25/17 10:30 Dose: 1 amp Alprazolam (Xanax -) 1 mg PO BID [facility] Last Admin: 01/29/17 10:47 Dose: 1 mg Aspirin (Asa -) 81 mg PO DAILY [facility] [place] Last Admin: 01/29/17 10:47 Dose: 81 mg Carvedilol (Coreg -) 3.125 mg PO BID [facility] [place] Last Admin: 01/29/17 10:47 Dose: 3.125 mg Enoxaparin Sodium (Lovenox -) 40 mg SQ DAILY [facility] [place] Last Admin: 01/29/17 10:48 Dose: 40 mg Gabapentin (Neurontin -) 800 mg PO TID [facility] [place] Last Admin: 01/29/17 06:19 Dose: 800 mg Hydromorphone HCl (Dilaudid Injection -) 1 mg IVPB Q6H PRN PRN Reason: PAIN Last Admin: 01/29/17 12:09 Dose: 1 mg Sodium Chloride (Normal Saline -) 1,000 mls @ 75 mls/hr IV ASDIR [facility] [place] Last Admin: 01/29/17 04:00 Dose: Not Given Piperacillin Sod/Tazobactam (Sod 4.5 gm/ Dextrose) 100 mls @ 200 mls/hr IVPB Q8H-IV GABI PRN Reason: Protocol Stop: 01/30/17 18:29 Last Admin: 01/29/17 10:32 Dose: 200 mls/hr Pantoprazole Sodium 40 mg/ (Dextrose) 100 mls @ 200 mls/hr IVPB DAILY [facility] [place] Last Admin: 01/29/17 09:04 Dose: 200 mls/hr Insulin Aspart (Novolog Vial Sliding Scale -) 1 vial SQ TIDAC GABI PRN Reason: Protocol Last Admin: 01/29/17 12:14 Dose: 2 unit Insulin Aspart (Novolog Vial Sliding Scale -) 1 vial SQ HS GABI PRN Reason: Protocol Last Admin: 01/28/17 22:00 Dose: 2 units Lisinopril (Prinivil) 2.5 mg PO DAILY [facility] [place] Last Admin: 01/29/17 10:47 Dose: 2.5 mg Metoprolol Tartrate (Lopressor Injection -) 5 mg IVPB Q4H PRN PRN Reason: HYPERTENSION Ondansetron HCl (Zofran Injection) 4 mg IVPB Q6H PRN PRN Reason: NAUSEA Last Admin: 01/28/17 16:41 Dose: 4 mg - Objective Vital Signs: Vital Signs Temperature 98.3 F 01/29/17 10:46 Pulse Rate 67 01/29/17 10:46 Respiratory Rate 01/29/17 10:46 Blood Pressure 149/90 01/29/17 10:46 O2 Sat by Pulse Oximetry (%) 98 01/29/17 09:00 Constitutional: Yes: No Distress, Calm Eyes: Yes: WNL HENT: Yes: WNL Cardiovascular: Yes: Regular Rate and Rhythm Respiratory: Yes: Regular, CTA Bilaterally Gastrointestinal: Yes: Normal Bowel Sounds, Soft, Tenderness (mild generalized) Genitourinary: Yes: WNL Integumentary: Yes: WNL Labs: ANNALEE BOLAND 01/29/17 06:20 01/29/17 06:20 Assessment/Plan Acute diverticulitis - continue IV antibiotics for now, plan switch to po once tolerates advanced diet - clinically stable Labs Lab Results: ANNALEE BOLAND 01/29/17 06:20 01/29/17 06:20
[2017-01-30] MEDS ORDERED: DEXTROSE 5%-WATER 100 ML IVPB ONE ×3 (00:50→17:19)
[2017-01-30] MEDS ORDERED: PIPERACILLIN/TAZOBACTAM 4.5 GM VIAL IVPB ONE ×3 (00:50→17:19)
[2017-01-30] MEDS: PIPERACILLIN/TAZOB 4.5 GM 4.5 GM in DEXTROSE 5%-WATER 100 ML IVPB SCH ×3 (02:43→17:20)
[2017-01-30] MEDS: SODIUM CHLORIDE 1,000 ML IV SCH ×2 (02:45→16:06)
[2017-01-30] MEDS: HYDROmorphone HCL CARPU-JECT 1 MG/1 ML DISP.SYRIN IVPB PRN ×4 (03:19→22:17)
[2017-01-30] MEDS: INSULIN SLIDING SCALE (NOVOLOG) 1 VIAL SQ SCH ×4 (06:16→21:08)
[2017-01-30] MEDS: GABAPENTIN 400 MG CAPSULE (FP) PO SCH ×3 (06:16→21:07)
[2017-01-30 08:02] LABS: BASOPHIL 0.3 % (0-2.0); EOSINOPHIL 4.2 % (0-4.5); MCH 32.3 pg (25.7-33.7); MCHC 34.3 g/dl (32.0-36.0); MEAN CELL VOLUME 94.3 fl (80-96); MEAN PLT VOLUME 7.4 fl (7.5-11.1); NEUTROPHILS 55.9 % (42.8-82.8); PLATELET COUNT 181 K/MM3 (134-434); RDW 13.8 % (11.6-15.6); WHITE BLOOD COUNT 5.2 K/mm3 (4.0-10.0)
[2017-01-30 08:58] LABS: ANION GAP 9 (8-16); CALCIUM 8.3 mg/dL (8.5-10.1); CO2 26 mmol/L (21-32); CREATININE 0.6 mg/dL (0.55-1.02); GLUCOSE,RANDOM 165 mg/dL (74-106); MAGNESIUM 1.8 mg/dL (1.8-2.4); PHOSPHOROUS 3.2 mg/dL (2.5-4.9)
[2017-01-30] MEDS ORDERED: PANTOPRAZOLE SODIUM 40 MG VIAL ONE (09:31)
[2017-01-30] MEDS ORDERED: PT OWN MED DRAWER 7, Y5N ONE (09:31)
[2017-01-30] MEDS: ALPRAZolam 2 MG TABLET PO SCH ×2 (09:34→21:08)
[2017-01-30] MEDS: ASPIRIN 81 MG CHEWABLE TABLETS PO SCH (09:36)
[2017-01-30] MEDS: ENOXAPARIN NA (PORCINE) 40 MG/0.4 ML DISP.SYRIN SQ SCH (09:39)
[2017-01-30] MEDS: PANTOPRAZOLE SODIUM 40 MG in DEXTROSE 5%-WATER 100 ML IVPB SCH (09:39)
[2017-01-30] MEDS: CARVEDILOL 3.125 MG TABLET (FP) PO SCH ×2 (09:40→21:07)
[2017-01-30] MEDS: LISINOPRIL 5 MG TABLET (FP) PO SCH (09:40)
--- NOTE | 2017-01-30 11:56 | PN ---
Progress Note, Physician Chief Complaint: Ms Edouard still complains of abdominal pain but tolerating diet. No cp or sob. - Current Medication List Current Medications: Active Medications Albuterol Sulfate (Ventolin 0.083% Nebulizer Soln -) 1 amp NEB Q6H PRN PRN Reason: SHORT OF BREATH/WHEEZING Last Admin: 01/25/17 10:30 Dose: 1 amp Alprazolam (Xanax -) 1 mg PO BID [facility] Last Admin: 01/30/17 09:34 Dose: 1 mg Aspirin (Asa -) 81 mg PO DAILY [facility] Last Admin: 01/30/17 09:36 Dose: 81 mg Carvedilol (Coreg -) 3.125 mg PO BID [facility] Last Admin: 01/30/17 09:40 Dose: 3.125 mg Enoxaparin Sodium (Lovenox -) 40 mg SQ DAILY [facility] Last Admin: 01/30/17 09:39 Dose: 40 mg Gabapentin (Neurontin -) 800 mg PO TID [facility] Last Admin: 01/30/17 06:16 Dose: 800 mg Hydromorphone HCl (Dilaudid Injection -) 1 mg IVPB Q6H PRN PRN Reason: PAIN Last Admin: 01/30/17 09:55 Dose: 1 mg Sodium Chloride (Normal Saline -) 1,000 mls @ 75 mls/hr IV ASDIR [facility] Last Admin: 01/30/17 02:45 Dose: 75 mls/hr Piperacillin Sod/Tazobactam (Sod 4.5 gm/ Dextrose) 100 mls @ 200 mls/hr IVPB Q8H-IV GABI PRN Reason: Protocol Stop: 01/30/17 18:29 Last Admin: 01/30/17 09:36 Dose: 200 mls/hr Pantoprazole Sodium 40 mg/ (Dextrose) 100 mls @ 200 mls/hr IVPB DAILY [facility] Last Admin: 01/30/17 09:39 Dose: 200 mls/hr Insulin Aspart (Novolog Vial Sliding Scale -) 1 vial SQ TIDAC GABI PRN Reason: Protocol Last Admin: 01/30/17 06:16 Dose: 4 unit Insulin Aspart (Novolog Vial Sliding Scale -) 1 vial SQ HS GABI PRN Reason: Protocol Last Admin: 01/29/17 22:01 Dose: 2 units Lisinopril (Prinivil) 2.5 mg PO DAILY [facility] Last Admin: 01/30/17 09:40 Dose: 2.5 mg Metoprolol Tartrate (Lopressor Injection -) 5 mg IVPB Q4H PRN PRN Reason: HYPERTENSION Ondansetron HCl (Zofran Injection) 4 mg IVPB Q6H PRN PRN Reason: NAUSEA Last Admin: 01/28/17 16:41 Dose: 4 mg - Objective Vital Signs: Vital Signs Temperature 97.6 F 01/30/17 08:05 Pulse Rate 55 L 01/30/17 08:05 Respiratory Rate 18 01/30/17 08:05 Blood Pressure 155/80 01/30/17 08:05 O2 Sat by Pulse Oximetry (%) 98 01/30/17 09:00 Constitutional: Yes: Well Nourished, No Distress, Calm Cardiovascular: Yes: Regular Rate and Rhythm. No: Gallop, Murmur, Rub Respiratory: Yes: Regular, Rhonchi. No: Rales, Wheezes Gastrointestinal: Yes: Normal Bowel Sounds, Soft. No: Distention, Tenderness Extremities: Yes: WNL Edema: No Labs: CBC, BMP 01/30/17 06:00 01/30/17 06:00 Assessment/Plan (1) Acute diverticulitis of intestine Assessment/Plan: -patient much improved -tolerating diet -ID following -continue zosyn, change to po per their recommendations Code(s): K57.92 - DVTRCLI OF INTEST, PART UNSP, W/O PERF OR ABSCESS W/O BLEED (2) CAD (coronary artery disease) Assessment/Plan: -stable Code(s): I25.10 - ATHSCL HEART DISEASE OF [place] CORONARY ARTERY W/O ANG PCTRS Qualifiers: Coronary Disease-Associated Artery/Lesion type: [place] artery [place] vs. transplanted heart: [place] heart Associated angina: without angina Qualified Code(s): I25.10 - Atherosclerotic heart disease of [place] coronary artery without angina pectoris (3) CHF (congestive heart failure), NYHA class I Assessment/Plan -continue IVF -cardiology following Code(s): I50.9 - HEART FAILURE, UNSPECIFIED Qualifiers: Congestive heart failure type: systolic Congestive heart failure chronicity: chronic Qualified Code(s): I50.22 - Chronic systolic ( congestive) heart failure (4) COPD (chronic obstructive pulmonary disease) Assessment/Plan: -pulmonary following -continue bronchodilators Code(s): J44.9 - CHRONIC OBSTRUCTIVE PULMONARY DISEASE, UNSPECIFIED Qualifiers : COPD type: unspecified COPD Qualified Code(s): J44.9 - Chronic obstructive pulmonary disease, unspecified (5) Diabetes mellitus Assessment/Plan: -endocrinology following and managing Code(s): E11.9 - TYPE 2 DIABETES MELLITUS WITHOUT COMPLICATIONS Qualifiers: Diabetes mellitus type: type 2 Diabetes mellitus complication status: without complication (6) Single implantable cardioverter-defibrillator (ICD) in situ Assessment/Plan: -per cardiology Code(s): Z95.810 - PRESENCE OF AUTOMATIC (IMPLANTABLE) CARDIAC DEFIBRILLATOR (7) Hypertension Assessment/Plan: -normotensive Code(s): I10 - ESSENTIAL (PRIMARY) HYPERTENSION Qualifiers: Hypertension type: essential hypertension Qualified Code(s): I10 - Essential (primary) hypertension (8) Anxiety Assessment/Plan: -monitor, patient is receiving narcotics -will d/c IV ativan -continue xanax Code(s): F41.9 - ANXIETY DISORDER, UNSPECIFIED
--- NOTE | 2017-01-30 12:46 | PN ---
Progress Note, Physician History of Present Illness: LLQ abdominal pain improving, tolerating regular diet, no fevers or chills. Repeat abd/pelvic CT shows interval improvement. - Current Medication List Current Medications: Active Medications Albuterol Sulfate (Ventolin 0.083% Nebulizer Soln -) 1 amp NEB Q6H PRN PRN Reason: SHORT OF BREATH/WHEEZING Last Admin: 01/25/17 10:30 Dose: 1 amp Alprazolam (Xanax -) 1 mg PO BID [facility] Last Admin: 01/30/17 09:34 Dose: 1 mg Aspirin (Asa -) 81 mg PO DAILY [facility] Last Admin: 01/30/17 09:36 Dose: 81 mg Carvedilol (Coreg -) 3.125 mg PO BID [facility] Last Admin: 01/30/17 09:40 Dose: 3.125 mg Enoxaparin Sodium (Lovenox -) 40 mg SQ DAILY [facility] Last Admin: 01/30/17 09:39 Dose: 40 mg Gabapentin (Neurontin -) 800 mg PO TID [facility] Last Admin: 01/30/17 06:16 Dose: 800 mg Hydromorphone HCl (Dilaudid Injection -) 1 mg IVPB Q6H PRN PRN Reason: PAIN Last Admin: 01/30/17 09:55 Dose: 1 mg Sodium Chloride (Normal Saline -) 1,000 mls @ 75 mls/hr IV ASDIR [facility] Last Admin: 01/30/17 02:45 Dose: 75 mls/hr Piperacillin Sod/Tazobactam (Sod 4.5 gm/ Dextrose) 100 mls @ 200 mls/hr IVPB Q8H-IV GABI PRN Reason: Protocol Stop: 01/30/17 18:29 Last Admin: 01/30/17 09:36 Dose: 200 mls/hr Pantoprazole Sodium 40 mg/ (Dextrose) 100 mls @ 200 mls/hr IVPB DAILY [facility] Last Admin: 01/30/17 09:39 Dose: 200 mls/hr Insulin Aspart (Novolog Vial Sliding Scale -) 1 vial SQ TIDAC GABI PRN Reason: Protocol Last Admin: 01/30/17 12:17 Dose: 4 unit Insulin Aspart (Novolog Vial Sliding Scale -) 1 vial SQ HS GABI PRN Reason: Protocol Last Admin: 01/29/17 22:01 Dose: 2 units Lisinopril (Prinivil) 2.5 mg PO DAILY [facility] Last Admin: 01/30/17 09:40 Dose: 2.5 mg Metoprolol Tartrate (Lopressor Injection -) 5 mg IVPB Q4H PRN PRN Reason: HYPERTENSION Ondansetron HCl (Zofran Injection) 4 mg IVPB Q6H PRN PRN Reason: NAUSEA Last Admin: 01/28/17 16:41 Dose: 4 mg - Objective Vital Signs: Vital Signs Temperature 97.6 F 01/30/17 08:05 Pulse Rate 55 L 01/30/17 08:05 Respiratory Rate 18 01/30/17 08:05 Blood Pressure 155/80 01/30/17 08:05 O2 Sat by Pulse Oximetry (%) 98 01/30/17 09:00 Constitutional: Yes: No Distress, Calm Neck: Yes: Supple Cardiovascular: Yes: Regular Rate and Rhythm Respiratory: Yes: Regular, CTA Bilaterally Gastrointestinal: Yes: Normal Bowel Sounds, Soft Edema: No Labs: CBC, BMP 01/30/17 06:00 01/30/17 06:00 Problem List - Problems (1) Acute diverticulitis of intestine Code(s): K57.92 - DVTRCLI OF INTEST, PART UNSP, W/O PERF OR ABSCESS W/O BLEED (2) CAD (coronary artery disease) Code(s): I25.10 - ATHSCL HEART DISEASE OF [place] CORONARY ARTERY W/O ANG PCTRS Qualifiers: Coronary Disease-Associated Artery/Lesion type: [place] artery [place] vs. transplanted heart: [place] heart Associated angina: without angina Qualified Code(s): I25.10 - Atherosclerotic heart disease of [place] coronary artery without angina pectoris (3) COPD (chronic obstructive pulmonary disease) Code(s): J44.9 - CHRONIC OBSTRUCTIVE PULMONARY DISEASE, UNSPECIFIED Qualifiers : COPD type: unspecified COPD Qualified Code(s): J44.9 - Chronic obstructive pulmonary disease, unspecified (4) Constipation Code(s): K59.00 - CONSTIPATION, UNSPECIFIED Qualifiers: Constipation type: drug induced constipation Qualified Code(s): K59.03 - Drug induced constipation (5) Diabetes mellitus Code(s): E11.9 - TYPE 2 DIABETES MELLITUS WITHOUT COMPLICATIONS Qualifiers: Diabetes mellitus type: type 2 Diabetes mellitus complication status: with hyperglycemia Diabetes mellitus fci insulin use: without adjunct faculty for medical terminology use Qualified Code(s): E11.65 - Type 2 diabetes mellitus with hyperglycemia; Z79.4 - adjunct faculty for medical terminology (current) use of insulin (6) Diverticulitis large intestine w/o perforation or abscess w/o bleeding Code(s): K57.32 - DVTRCLI OF LG INT W/O PERFORATION OR ABSCESS W/O BLEEDING (7) Chronic left ventricular systolic dysfunction Code(s): I51.9 - HEART DISEASE, UNSPECIFIED (8) Single implantable cardioverter-defibrillator (ICD) in situ Code(s): Z95.810 - PRESENCE OF AUTOMATIC (IMPLANTABLE) CARDIAC DEFIBRILLATOR (9) Status post insertion of drug-eluting stent into left anterior descending artery for coronary artery disease Code(s): Z98.61 - CORONARY ANGIOPLASTY STATUS (10) Status post myocardial infarction of anterior wall Code(s): I25.2 - OLD MYOCARDIAL INFARCTION (11) Hyperlipidemia Code(s): E78.5 - HYPERLIPIDEMIA, UNSPECIFIED Qualifiers: Hyperlipidemia type: pure hypercholesterolemia Qualified Code(s): E78.00 - Pure hypercholesterolemia, unspecified; E78.0 - Pure hypercholesterolemia (12) Hypertension Code(s): I10 - ESSENTIAL (PRIMARY) HYPERTENSION Qualifiers: Hypertension type: essential hypertension Qualified Code(s): I10 - Essential (primary) hypertension (13) Sleep apnea Code(s): G47.30 - SLEEP APNEA, UNSPECIFIED Qualifiers: Sleep apnea type: obstructive Qualified Code(s): G47.33 - Obstructive sleep apnea (adult) (pediatric) Assessment/Plan Echocardiography dated 11/23 revealed LV mildly dilated with wall motion abnormality, EF mildly reduced, moderate MR and mild TR MPI study dated 11/22 revealed mildly reduced EF with apical fixed defect infarct [facility] coronary angiography dated 11/23 revealed non-obstructive CAD, patent LAD stent, moderate decreased LV systolic function with LVEF 45% with severe anterior, hannah-lateral hypokinesia 1. Acute sigmoid diverticulitis 2. CAD S/P PCI/stent, angina pectoris 3. Ischemic cardiomyopathy with history of failure S/P ICD, euvolemic 4. HTN/HCVD, BP not at goal control 5. Hypercholesterolemia 6. OSAS noncompliant with CPAP 7. History of neurocardiogenic syncope 8. Depression/anxiety/eating disorder 9. Mild COPD 10. Uncontrolled diabetes mellitus PLAN: 1. Continue ASA 81 qd, Lipitor 40 qhs, increase carvedilol 6.25 bid, and lisinopril 2.5 qd, replete K and Mg 2. Continue DVT prophylaxis, ambulate 3. CPAP nightly, bronchodilator and O2 as needed, complete abx course, switch to oral
[2017-01-30] MEDS ORDERED: MAGNESIUM OXIDE 400 MG TABLET (FP) PO ONE (12:52)
[2017-01-30] MEDS ORDERED: POTASSIUM CHLORIDE TABS 20 MEQ TABLET.ER (FP) PO ONE (12:52)
--- NOTE | 2017-01-30 15:14 | PN ---
Progress Note (short form) - Note Progress Note: Feels better, Less pain Tolerating diet Blood sugar 200s No hypos Vital Signs Period Temp Pulse Resp BP Sys/Riley Pulse Ox Last 24 Hr 97.3 F-97.9 F 55-60 18-20 133-155/77-89 98-98 PE: AOx3 Neck: Supple, No JVD HEENT: EOMI Lungs: CTA CVS: S1S2 Abd: soft, BS present. mild LLQ tenderness EXt: No edema Neuro: No focal deficit CMP Sodium 144 mmol/L (136-145) 01/30/17 06:00 Potassium 3.3 mmol/L (3.5-5.1) L 01/30/17 06:00 Chloride 109 mmol/L (98-107) H 01/30/17 06:00 Carbon Dioxide 26 mmol/L (21-32) 01/30/17 06:00 Anion Gap 9 (8-16) 01/30/17 06:00 BUN 4 mg/dL (7-18) L D 01/30/17 06:00 Creatinine 0.6 mg/dL (0.55-1.02) 01/30/17 06:00 Creat Clearance w eGFR > 60 (>60) 01/25/17 05:35 POC Glucometer 209 UNITS (()) 01/30/17 11:16 Random Glucose 165 mg/dL (74-106) H D 01/30/17 06:00 Calcium 8.3 mg/dL (8.5-10.1) L 01/30/17 06:00 Phosphorus 3.2 mg/dL (2.5-4.9) 01/30/17 06:00 Magnesium 1.8 mg/dL (1.8-2.4) 01/30/17 06:00 Total Bilirubin 0.6 mg/dL (0.2-1.0) 01/25/17 05:35 AST 37 U/L (15-37) D 01/25/17 05:35 ALT 51 U/L (12-78) 01/25/17 05:35 Alkaline Phosphatase 114 U/L (45-117) 01/25/17 05:35 Creatine Kinase 50 IU/L (26-192) 01/23/17 00:30 Troponin I < 0.02 ng/ml (0.00-0.05) 01/23/17 00:30 C-Reactive Protein 1.8 MG/DL (0.00-0.3) H D 01/25/17 05:35 Total Protein 5.7 g/dl (6.4-8.2) L 01/25/17 05:35 Albumin 3.1 g/dl (3.4-5.0) L 01/25/17 05:35 Total Amylase 26 U/L (25-115) D 01/23/17 00:30 Lipase 131 U/L (73-393) 01/23/17 00:30 Serum , Qual Negative 01/23/17 00:30 Current Medications Generic Name Dose Route Start Last Admin Trade Name Freq PRN Reason Stop Dose Admin Albuterol Sulfate 1 amp 01/23/17 02:52 01/25/17 10:30 Ventolin 0.083% Nebulizer Soln - NEB 1 amp Q6H PRN Administration SHORT OF BREATH/WHEEZING Alprazolam 1 mg 01/23/17 10:00 01/30/17 09:34 Xanax - PO 1 mg BID [facility]I Administration Aspirin 81 mg 01/29/17 10:00 01/30/17 09:36 Asa - PO 81 mg DAILY [facility]I Administration Carvedilol 3.125 mg 01/26/17 22:00 01/30/17 09:40 Coreg - PO 3.125 mg BID GABI Administration Enoxaparin Sodium 40 mg 01/24/17 19:45 01/30/17 09:39 Lovenox - SQ 40 mg DAILY [facility] Administration Gabapentin 800 mg 01/23/17 06:00 01/30/17 13:58 Neurontin - PO 800 mg TID [facility]I Administration Hydromorphone HCl 1 mg 01/28/17 13:41 01/30/17 09:55 Dilaudid Injection - IVPB 1 mg Q6H PRN Administration PAIN Sodium Chloride 1,000 mls @ 75 mls/hr 01/23/17 03:00 01/30/17 02:45 Normal Saline - IV 75 mls/hr ASDIR GABI Administration Piperacillin Sod/Tazobactam 100 mls @ 200 mls/hr 01/26/17 18:00 01/30/17 09:36 Sod 4.5 gm/ Dextrose IVPB 01/30/17 18:29 200 mls/hr Q8H-IV GABI Administration Protocol Pantoprazole Sodium 40 mg/ 100 mls @ 200 mls/hr 01/27/17 10:30 01/30/17 09:39 Dextrose IVPB 200 mls/hr DAILY [facility] Administration Insulin Aspart 1 vial 01/23/17 16:30 01/30/17 12:17 Novolog Vial Sliding Scale - SQ 4 unit TIDAC GABI Administration Protocol Insulin Aspart 1 vial 01/24/17 22:00 01/29/17 22:01 Novolog Vial Sliding Scale - SQ 2 units HS GABI Administration Protocol Lisinopril 2.5 mg 01/27/17 10:00 01/30/17 09:40 Prinivil PO 2.5 mg DAILY [facility] Administration Metoprolol Tartrate 5 mg 01/23/17 13:24 Lopressor Injection - IVPB Q4H PRN HYPERTENSION Ondansetron HCl 4 mg 01/23/17 02:49 01/28/17 16:41 Zofran Injection IVPB 4 mg Q6H PRN Administration NAUSEA AP: Abd pain/Sigmoid Diverticulitis DM Uncontrolled COPD CHF ICD implant BGM 200s Tolerating diet Start Levemir 8 units daily a HS BGM QACHS Off Metformin for now b/o GI symptoms Novolog SS coverage IV abx
--- NOTE | 2017-01-30 16:58 | PN ---
Progress Note, Physician History of Present Illness: Pt remains afebrile/ feels the same Has LLQ abdominal pain with palpation Had one soft BM today reports nausea but no vomiting - Current Medication List Current Medications: Active Medications Albuterol Sulfate (Ventolin 0.083% Nebulizer Soln -) 1 amp NEB Q6H PRN PRN Reason: SHORT OF BREATH/WHEEZING Last Admin: 01/25/17 10:30 Dose: 1 amp Alprazolam (Xanax -) 1 mg PO BID [facility] Last Admin: 01/30/17 09:34 Dose: 1 mg Aspirin (Asa -) 81 mg PO DAILY [facility] Last Admin: 01/30/17 09:36 Dose: 81 mg Carvedilol (Coreg -) 3.125 mg PO BID [facility] Last Admin: 01/30/17 09:40 Dose: 3.125 mg Enoxaparin Sodium (Lovenox -) 40 mg SQ DAILY [facility] Last Admin: 01/30/17 09:39 Dose: 40 mg Gabapentin (Neurontin -) 800 mg PO TID [facility] Last Admin: 01/30/17 13:58 Dose: 800 mg Hydromorphone HCl (Dilaudid Injection -) 1 mg IVPB Q6H PRN PRN Reason: PAIN Last Admin: 01/30/17 16:03 Dose: 1 mg Sodium Chloride (Normal Saline -) 1,000 mls @ 75 mls/hr IV ASDIR [facility] Last Admin: 01/30/17 16:06 Dose: 75 mls/hr Piperacillin Sod/Tazobactam (Sod 4.5 gm/ Dextrose) 100 mls @ 200 mls/hr IVPB Q8H-IV [facility] PRN Reason: Protocol Stop: 01/30/17 18:29 Last Admin: 01/30/17 09:36 Dose: 200 mls/hr Pantoprazole Sodium 40 mg/ (Dextrose) 100 mls @ 200 mls/hr IVPB DAILY [facility] Last Admin: 01/30/17 09:39 Dose: 200 mls/hr Insulin Aspart (Novolog Vial Sliding Scale -) 1 vial SQ TIDAC [facility] PRN Reason: Protocol Last Admin: 01/30/17 12:17 Dose: 4 unit Insulin Aspart (Novolog Vial Sliding Scale -) 1 vial SQ HS [facility] PRN Reason: Protocol Last Admin: 01/29/17 22:01 Dose: 2 units Insulin Detemir (Levemir Vial) 8 units SQ HS [facility] Lisinopril (Prinivil) 2.5 mg PO DAILY [facility] Last Admin: 01/30/17 09:40 Dose: 2.5 mg Metoprolol Tartrate (Lopressor Injection -) 5 mg IVPB Q4H PRN PRN Reason: HYPERTENSION Ondansetron HCl (Zofran Injection) 4 mg IVPB Q6H PRN PRN Reason: NAUSEA Last Admin: 01/28/17 16:41 Dose: 4 mg - Objective Vital Signs: Vital Signs Temperature 97.6 F 01/30/17 13:55 Pulse Rate 59 L 01/30/17 13:55 Respiratory Rate 18 01/30/17 08:05 Blood Pressure 133/77 01/30/17 13:55 O2 Sat by Pulse Oximetry (%) 98 01/30/17 09:00 Constitutional: Yes: No Distress Cardiovascular: Yes: Regular Rate and Rhythm Respiratory: Yes: Regular Gastrointestinal: Yes: Normal Bowel Sounds, Other (mild tenderness of LLQ with deep palpation) Genitourinary: Yes: WNL Labs: CBC, BMP 01/30/17 06:00 01/30/17 06:00 Problem List - Problems (1) Acute diverticulitis of intestine Code(s): K57.92 - DVTRCLI OF INTEST, PART UNSP, W/O PERF OR ABSCESS W/O BLEED (2) CAD (coronary artery disease) Code(s): I25.10 - ATHSCL HEART DISEASE OF [place] CORONARY ARTERY W/O ANG PCTRS Qualifiers: Coronary Disease-Associated Artery/Lesion type: [place] artery [place] vs. transplanted heart: [place] heart Associated angina: without angina Qualified Code(s): I25.10 - Atherosclerotic heart disease of [place] coronary artery without angina pectoris (3) Diabetes mellitus Code(s): E11.9 - TYPE 2 DIABETES MELLITUS WITHOUT COMPLICATIONS Qualifiers: Diabetes mellitus type: type 2 Diabetes mellitus complication status: with hyperglycemia Diabetes mellitus mcc insulin use: without mcc use Qualified Code(s): E11.65 - Type 2 diabetes mellitus with hyperglycemia; Z79.4 - intermediate teacher (current) use of insulin Assessment/Plan Pt afebrile, clinically stable cont. Zosyn for today plan switch to p.o. antibiotics
[2017-01-30] MEDS ORDERED: PIPERACILLIN/TAZOB 4.5 GM/100 ML PRE-DOCKED IVPB SCH (18:00)
[2017-01-30] MEDS ORDERED: PIPERACILLIN/TAZOB 4.5 GM 4.5 GM in DEXTROSE 5%-WATER 100 ML IVPB SCH (18:00)
[2017-01-30] MEDS ORDERED: ASPIRIN 81 MG CHEWABLE TABLETS PO ONE (18:20)
[2017-01-30] MEDS ORDERED: ATORVASTATIN CA 80 MG TABLET (FP) PO ONE (18:21)
[2017-01-30] MEDS ORDERED: morphine CARPU-JECT 4 MG/1 ML DISP.SYRIN IVPUSH ONE (18:22)
[2017-01-30 19:27] LABS: TROPONIN I < 0.02 ng/ml (0.00-0.05)
[2017-01-30] MEDS ORDERED: NITROGLYCERIN SUBLINGUAL 1/150 0.4 MG TAB SL ONE (20:50)
[2017-01-30] MEDS ORDERED: INSULIN (NOVOLOG) ASPART 100 UNITS/ML 10ML VIAL ONE (21:03)
[2017-01-30] MEDS ORDERED: INSULIN DETEMIR 100 UNITS/ML MDV SQ SCH (22:00)
[2017-01-30] MEDS: ALBUTEROL SO4 0.083% IH SOL 2.5 MG/3 ML VIAL.NEB. NEB PRN (22:19)
[2017-01-31] MEDS: ALBUTEROL SO4 0.083% IH SOL 2.5 MG/3 ML VIAL.NEB. NEB PRN (01:26)
[2017-01-31] MEDS ORDERED: DEXTROSE 5%-WATER 100 ML IVPB ONE ×3 (01:32→10:09)
[2017-01-31] MEDS ORDERED: PIPERACILLIN/TAZOBACTAM 4.5 GM VIAL IVPB ONE ×2 (01:32→10:09)
[2017-01-31] MEDS: PIPERACILLIN/TAZOB 4.5 GM 4.5 GM in DEXTROSE 5%-WATER 100 ML IVPB SCH ×2 (01:36→10:12)
[2017-01-31] MEDS: HYDROmorphone HCL CARPU-JECT 1 MG/1 ML DISP.SYRIN IVPB PRN ×4 (04:44→23:47)
[2017-01-31] MEDS: SODIUM CHLORIDE 1,000 ML IV SCH (06:29)
[2017-01-31] MEDS: GABAPENTIN 400 MG CAPSULE (FP) PO SCH ×3 (06:29→21:36)
[2017-01-31] MEDS: INSULIN SLIDING SCALE (NOVOLOG) 1 VIAL SQ SCH ×4 (06:30→21:38)
[2017-01-31 07:02] LABS: BASOPHIL 0.5 % (0-2.0); EOSINOPHIL 2.3 % (0-4.5); MCH 32.8 pg (25.7-33.7); MEAN CELL VOLUME 93.6 fl (80-96); MEAN PLT VOLUME 7.3 fl (7.5-11.1); NEUTROPHILS 74.3 % (42.8-82.8); PLATELET COUNT 186 K/MM3 (134-434); RDW 13.7 % (11.6-15.6); WHITE BLOOD COUNT 7.9 K/mm3 (4.0-10.0)
[2017-01-31 07:39] LABS: ANION GAP 7 (8-16); CALCIUM 8.2 mg/dL (8.5-10.1); CO2 26 mmol/L (21-32); MAGNESIUM 1.5 mg/dL (1.8-2.4)
[2017-01-31 07:42] LABS: CREATININE 0.6 mg/dL (0.55-1.02); GLUCOSE,RANDOM 147 mg/dL (74-106); PHOSPHOROUS 3.4 mg/dL (2.5-4.9)
[2017-01-31] MEDS ORDERED: PT OWN MED DRAWER 7, Y5N ONE ×2 (10:07→14:12)
[2017-01-31] MEDS ORDERED: PANTOPRAZOLE SODIUM 40 MG VIAL ONE (10:08)
[2017-01-31] MEDS: PANTOPRAZOLE SODIUM 40 MG in DEXTROSE 5%-WATER 100 ML IVPB SCH (10:11)
[2017-01-31] MEDS ORDERED: PIPERACILLIN/TAZOB 4.5 GM 4.5 GM in SODIUM CHLORIDE 100 ML IVPB SCH (10:13)
[2017-01-31] MEDS: ENOXAPARIN NA (PORCINE) 40 MG/0.4 ML DISP.SYRIN SQ SCH (10:15)
[2017-01-31] MEDS: CARVEDILOL 3.125 MG TABLET (FP) PO SCH (10:15)
[2017-01-31] MEDS: LISINOPRIL 5 MG TABLET (FP) PO SCH (10:15)
[2017-01-31] MEDS: ALPRAZolam 2 MG TABLET PO SCH ×2 (10:15→21:36)
[2017-01-31] MEDS: ASPIRIN 81 MG CHEWABLE TABLETS PO SCH (10:15)
[2017-01-31] MEDS: PANTOPRAZOLE SODIUM 40 MG in SODIUM CHLORIDE 100 ML IVPB SCH (11:00)
--- NOTE | 2017-01-31 11:26 | PN ---
Progress Note, Physician History of Present Illness: LLQ abdominal pain improving, tolerating regular diet, no fevers or chills. Reports chest pain overnight, dyspnea on exertion today, EKG shows old anterolateral infarct without changes, CXR shows congestion. - Current Medication List Current Medications: Active Medications Albuterol Sulfate (Ventolin 0.083% Nebulizer Soln -) 1 amp NEB Q6H PRN PRN Reason: SHORT OF BREATH/WHEEZING Last Admin: 01/31/17 01:26 Dose: 1 amp Alprazolam (Xanax -) 1 mg PO BID [facility] Last Admin: 01/31/17 10:15 Dose: 1 mg Aspirin (Asa -) 81 mg PO DAILY [facility] Last Admin: 01/31/17 10:15 Dose: 81 mg Carvedilol (Coreg -) 3.125 mg PO BID [facility] Last Admin: 01/31/17 10:15 Dose: 3.125 mg Enoxaparin Sodium (Lovenox -) 40 mg SQ DAILY [facility] Last Admin: 01/31/17 10:15 Dose: 40 mg Gabapentin (Neurontin -) 800 mg PO TID [facility] Last Admin: 01/31/17 06:29 Dose: 800 mg Hydromorphone HCl (Dilaudid Injection -) 1 mg IVPB Q6H PRN PRN Reason: PAIN Last Admin: 01/31/17 04:44 Dose: 1 mg Sodium Chloride (Normal Saline -) 1,000 mls @ 75 mls/hr IV ASDIR [facility] Last Admin: 01/31/17 06:29 Dose: 75 mls/hr Pantoprazole Sodium 40 mg/ (Sodium Chloride) 100 mls @ 200 mls/hr IVPB DAILY [facility] Last Admin: 01/31/17 11:00 Dose: Not Given Piperacillin Sod/Tazobactam (Sod 4.5 gm/ Sodium Chloride) 100 mls @ 200 mls/hr IVPB Q8H-IV [facility] Insulin Aspart (Novolog Vial Sliding Scale -) 1 vial SQ TIDAC [facility] PRN Reason: Protocol Last Admin: 01/31/17 06:30 Dose: 2 unit Insulin Aspart (Novolog Vial Sliding Scale -) 1 vial SQ HS [facility] PRN Reason: Protocol Last Admin: 01/30/17 21:08 Dose: Not Given Insulin Detemir (Levemir Vial) 8 units SQ HS [facility] Last Admin: 01/30/17 21:06 Dose: 8 units Lisinopril (Prinivil) 2.5 mg PO DAILY [facility] Last Admin: 01/31/17 10:15 Dose: 2.5 mg Metoprolol Tartrate (Lopressor Injection -) 5 mg IVPB Q4H PRN PRN Reason: HYPERTENSION Ondansetron HCl (Zofran Injection) 4 mg IVPB Q6H PRN PRN Reason: NAUSEA Last Admin: 01/28/17 16:41 Dose: 4 mg - Objective Vital Signs: Vital Signs Temperature 99.5 F 01/31/17 07:40 Pulse Rate 63 01/31/17 07:40 Respiratory Rate 18 01/31/17 07:40 Blood Pressure 141/82 01/31/17 07:40 O2 Sat by Pulse Oximetry (%) 98 01/31/17 09:00 Constitutional: Yes: No Distress, Calm Neck: Yes: Supple Cardiovascular: Yes: Regular Rate and Rhythm Respiratory: Yes: Regular, Diminished Gastrointestinal: Yes: Normal Bowel Sounds, Soft, Abdomen, Obese Edema: Yes Edema: LLE: Trace, RLE: Trace Labs: CBC, BMP 01/31/17 06:30 01/31/17 06:30 Problem List - Problems (1) Acute diverticulitis of intestine Code(s): K57.92 - DVTRCLI OF INTEST, PART UNSP, W/O PERF OR ABSCESS W/O BLEED (2) CAD (coronary artery disease) Code(s): I25.10 - ATHSCL HEART DISEASE OF [place] CORONARY ARTERY W/O ANG PCTRS Qualifiers: Coronary Disease-Associated Artery/Lesion type: [place] artery [place] vs. transplanted heart: [place] heart Associated angina: without angina Qualified Code(s): I25.10 - Atherosclerotic heart disease of [place] coronary artery without angina pectoris (3) COPD (chronic obstructive pulmonary disease) Code(s): J44.9 - CHRONIC OBSTRUCTIVE PULMONARY DISEASE, UNSPECIFIED Qualifiers : COPD type: unspecified COPD Qualified Code(s): J44.9 - Chronic obstructive pulmonary disease, unspecified (4) Constipation Code(s): K59.00 - CONSTIPATION, UNSPECIFIED Qualifiers: Constipation type: drug induced constipation Qualified Code(s): K59.03 - Drug induced constipation (5) Diabetes mellitus Code(s): E11.9 - TYPE 2 DIABETES MELLITUS WITHOUT COMPLICATIONS Qualifiers: Diabetes mellitus type: type 2 Diabetes mellitus complication status: with hyperglycemia Diabetes mellitus technician terminal and repeater insulin use: without senior care use Qualified Code(s): E11.65 - Type 2 diabetes mellitus with hyperglycemia; Z79.4 - jail (current) use of insulin (6) Diverticulitis large intestine w/o perforation or abscess w/o bleeding Code(s): K57.32 - DVTRCLI OF LG INT W/O PERFORATION OR ABSCESS W/O BLEEDING (7) Chronic left ventricular systolic dysfunction Code(s): I51.9 - HEART DISEASE, UNSPECIFIED (8) Single implantable cardioverter-defibrillator (ICD) in situ Code(s): Z95.810 - PRESENCE OF AUTOMATIC (IMPLANTABLE) CARDIAC DEFIBRILLATOR (9) Status post insertion of drug-eluting stent into left anterior descending artery for coronary artery disease Code(s): Z98.61 - CORONARY ANGIOPLASTY STATUS (10) Status post myocardial infarction of anterior wall Code(s): I25.2 - OLD MYOCARDIAL INFARCTION (11) Hyperlipidemia Code(s): E78.5 - HYPERLIPIDEMIA, UNSPECIFIED Qualifiers: Hyperlipidemia type: pure hypercholesterolemia Qualified Code(s): E78.00 - Pure hypercholesterolemia, unspecified; E78.0 - Pure hypercholesterolemia (12) Hypertension Code(s): I10 - ESSENTIAL (PRIMARY) HYPERTENSION Qualifiers: Hypertension type: essential hypertension Qualified Code(s): I10 - Essential (primary) hypertension (13) Sleep apnea Code(s): G47.30 - SLEEP APNEA, UNSPECIFIED Qualifiers: Sleep apnea type: obstructive Qualified Code(s): G47.33 - Obstructive sleep apnea (adult) (pediatric) Assessment/Plan Echocardiography dated 11/23 revealed LV mildly dilated with wall motion abnormality, EF mildly reduced, moderate MR and mild TR MPI study dated 11/22 revealed mildly reduced EF with apical fixed defect infarct [facility] coronary angiography dated 11/23 revealed non-obstructive CAD, patent LAD stent, moderate decreased LV systolic function with LVEF 45% with severe anterior, hannah-lateral hypokinesia 1. Acute sigmoid diverticulitis improving 2. CAD S/P PCI/stent, angina pectoris 3. Acute on chronic systolic failure with underlying ischemic cardiomyopathy and history of failure S/P ICD, 4. HTN/HCVD, BP not at goal control 5. Hypercholesterolemia 6. OSAS noncompliant with CPAP 7. History of neurocardiogenic syncope 8. Depression/anxiety/eating disorder 9. Mild COPD 10. Uncontrolled diabetes mellitus PLAN: 1. Continue ASA 81 qd, Lipitor 40 qhs, increased carvedilol 6.25 bid, and lisinopril 2.5 qd, replete K and Mg. d/c IVF and resume diuresis ( spirinolactone 25 qd and Lasix 40 x 1 dose) 2. Continue DVT prophylaxis, ambulate 3. CPAP nightly, bronchodilator and O2 as needed, complete abx course, switch to oral
[2017-01-31] MEDS: SPIRONOLACTONE 25 MG TABLET (FP) PO SCH (12:04)
[2017-01-31] MEDS ORDERED: FUROSEMIDE 40 MG/4 ML INJECTABLE VIAL IVPB ONE (12:05)
[2017-01-31] MEDS ORDERED: CARVEDILOL 3.125 MG TABLET (FP) PO ONE (12:06)
--- NOTE | 2017-01-31 13:04 | PN ---
Progress Note, Physician Chief Complaint: Ms Edouard says she is short of breath. No cp or n/v. Very anxious about shortness of breath. Tolerating diet and having bowel movements. - Current Medication List Current Medications: Active Medications Albuterol Sulfate (Ventolin 0.083% Nebulizer Soln -) 1 amp NEB Q6H PRN PRN Reason: SHORT OF BREATH/WHEEZING Last Admin: 01/31/17 01:26 Dose: 1 amp Alprazolam (Xanax -) 1 mg PO BID [facility] Last Admin: 01/31/17 10:15 Dose: 1 mg Aspirin (Asa -) 81 mg PO DAILY [facility] Last Admin: 01/31/17 10:15 Dose: 81 mg Carvedilol (Coreg -) 6.25 mg PO BID [facility] Enoxaparin Sodium (Lovenox -) 40 mg SQ DAILY [facility] Last Admin: 01/31/17 10:15 Dose: 40 mg Gabapentin (Neurontin -) 800 mg PO TID [facility] Last Admin: 01/31/17 06:29 Dose: 800 mg Hydromorphone HCl (Dilaudid Injection -) 1 mg IVPB Q6H PRN PRN Reason: PAIN Last Admin: 01/31/17 11:54 Dose: 1 mg Pantoprazole Sodium 40 mg/ (Sodium Chloride) 100 mls @ 200 mls/hr IVPB DAILY [facility] Last Admin: 01/31/17 11:00 Dose: Not Given Piperacillin Sod/Tazobactam (Sod 4.5 gm/ Sodium Chloride) 100 mls @ 200 mls/hr IVPB Q8H-IV [facility] Insulin Aspart (Novolog Vial Sliding Scale -) 1 vial SQ TIDAC [facility] PRN Reason: Protocol Last Admin: 01/31/17 12:01 Dose: 2 unit Insulin Aspart (Novolog Vial Sliding Scale -) 1 vial SQ HS [facility] PRN Reason: Protocol Last Admin: 01/30/17 21:08 Dose: Not Given Insulin Detemir (Levemir Vial) 8 units SQ HS [facility] Last Admin: 01/30/17 21:06 Dose: 8 units Lisinopril (Prinivil) 2.5 mg PO DAILY [facility] Last Admin: 01/31/17 10:15 Dose: 2.5 mg Magnesium Oxide (Mag-Ox -) 400 mg PO BID [facility] Metoprolol Tartrate (Lopressor Injection -) 5 mg IVPB Q4H PRN PRN Reason: HYPERTENSION Ondansetron HCl (Zofran Injection) 4 mg IVPB Q6H PRN PRN Reason: NAUSEA Last Admin: 01/28/17 16:41 Dose: 4 mg Potassium Chloride (K-Dur -) 40 meq PO ONCE ONE Stop: 01/31/17 13:01 Spironolactone (Aldactone -) 25 mg PO DAILY [facility] Last Admin: 01/31/17 12:04 Dose: 25 mg - Objective Vital Signs: Vital Signs Temperature 99.5 F 01/31/17 07:40 Pulse Rate 63 01/31/17 07:40 Respiratory Rate 18 01/31/17 07:40 Blood Pressure 141/82 01/31/17 07:40 O2 Sat by Pulse Oximetry (%) 98 01/31/17 09:00 Constitutional: Yes: Well Nourished, No Distress, Calm Cardiovascular: Yes: Regular Rate and Rhythm. No: Gallop, Murmur, Rub Respiratory: Yes: Regular, On Nasal O2, Rhonchi. No: Rales, Wheezes Gastrointestinal: Yes: Normal Bowel Sounds, Soft. No: Distention, Tenderness Extremities: Yes: WNL Edema: No Labs: CBC, BMP 01/31/17 06:30 01/31/17 06:30 Assessment/Plan (1) Acute diverticulitis of intestine Assessment/Plan: -patient with bowel movements and tolerating diet -continue IV antibiotics, change to oral per ID recommendations -will place on home pain regimen when changed to oral antibiotics Code(s): K57.92 - DVTRCLI OF INTEST, PART UNSP, W/O PERF OR ABSCESS W/O BLEED (2) CAD (coronary artery disease) Assessment/Plan: -stable Code(s): I25.10 - ATHSCL HEART DISEASE OF [place] CORONARY ARTERY W/O ANG PCTRS Qualifiers: Coronary Disease-Associated Artery/Lesion type: [place] artery [place] vs. transplanted heart: [place] heart Associated angina: without angina Qualified Code(s): I25.10 - Atherosclerotic heart disease of [place] coronary artery without angina pectoris (3) CHF (congestive heart failure), NYHA class I Assessment/Plan -now with exacerbation secondary to fluid -chest x-ray reviewed -cardiology following, giving lasix and aldactone -monitor for improvement Code(s): I50.9 - HEART FAILURE, UNSPECIFIED Qualifiers: Congestive heart failure type: systolic Congestive heart failure chronicity: chronic Qualified Code(s): I50.22 - Chronic systolic ( congestive) heart failure (4) COPD (chronic obstructive pulmonary disease) Assessment/Plan: -pulmonary following -continue bronchodilators Code(s): J44.9 - CHRONIC OBSTRUCTIVE PULMONARY DISEASE, UNSPECIFIED Qualifiers : COPD type: unspecified COPD Qualified Code(s): J44.9 - Chronic obstructive pulmonary disease, unspecified (5) Diabetes mellitus Assessment/Plan: -endocrinology following and managing Code(s): E11.9 - TYPE 2 DIABETES MELLITUS WITHOUT COMPLICATIONS Qualifiers: Diabetes mellitus type: type 2 Diabetes mellitus complication status: without complication (6) Single implantable cardioverter-defibrillator (ICD) in situ Assessment/Plan: -per cardiology Code(s): Z95.810 - PRESENCE OF AUTOMATIC (IMPLANTABLE) CARDIAC DEFIBRILLATOR (7) Hypertension Assessment/Plan: -normotensive Code(s): I10 - ESSENTIAL (PRIMARY) HYPERTENSION Qualifiers: Hypertension type: essential hypertension Qualified Code(s): I10 - Essential (primary) hypertension (8) Anxiety Assessment/Plan: -continue xanax Code(s): F41.9 - ANXIETY DISORDER, UNSPECIFIED
--- NOTE | 2017-01-31 13:12 | PN ---
Progress Note (short form) - Note Progress Note: Feels better, Less abd pain Tolerating diet Blood sugar improving No hypos Vital Signs Period Temp Pulse Resp BP Sys/Riley Pulse Ox Last 24 Hr 97.6 F-99.5 F 55-70 18-24 133-153/77-90 98-98 PE: AOx3 Neck: Supple, No JVD HEENT: EOMI Lungs: Few basal crackles CVS: S1S2 Abd: soft, BS present. mild LLQ tenderness EXt: No edema Neuro: No focal deficit CMP Sodium 143 mmol/L (136-145) 01/31/17 06:30 Potassium 3.2 mmol/L (3.5-5.1) L 01/31/17 06:30 Chloride 110 mmol/L (98-107) H 01/31/17 06:30 Carbon Dioxide 26 mmol/L (21-32) 01/31/17 06:30 Anion Gap 7 (8-16) L 01/31/17 06:30 BUN 4 mg/dL (7-18) L 01/31/17 06:30 Creatinine 0.6 mg/dL (0.55-1.02) 01/31/17 06:30 Creat Clearance w eGFR > 60 (>60) 01/25/17 05:35 POC Glucometer 172 UNITS (()) 01/31/17 11:19 Random Glucose 147 mg/dL (74-106) H 01/31/17 06:30 Calcium 8.2 mg/dL (8.5-10.1) L 01/31/17 06:30 Phosphorus 3.4 mg/dL (2.5-4.9) 01/31/17 06:30 Magnesium 1.5 mg/dL (1.8-2.4) L 01/31/17 06:30 Total Bilirubin 0.6 mg/dL (0.2-1.0) 01/25/17 05:35 AST 37 U/L (15-37) D 01/25/17 05:35 ALT 51 U/L (12-78) 01/25/17 05:35 Alkaline Phosphatase 114 U/L (45-117) 01/25/17 05:35 Creatine Kinase 47 IU/L (26-192) 01/30/17 18:20 Troponin I < 0.02 ng/ml (0.00-0.05) 01/30/17 18:20 C-Reactive Protein 1.8 MG/DL (0.00-0.3) H D 01/25/17 05:35 Total Protein 5.7 g/dl (6.4-8.2) L 01/25/17 05:35 Albumin 3.1 g/dl (3.4-5.0) L 01/25/17 05:35 Total Amylase 26 U/L (25-115) D 01/23/17 00:30 Lipase 131 U/L (73-393) 01/23/17 00:30 Serum , Qual Negative 01/23/17 00:30 Current Medications Generic Name Dose Route Start Last Admin Trade Name Freq PRN Reason Stop Dose Admin Albuterol Sulfate 1 amp 01/23/17 02:52 01/31/17 01:26 Ventolin 0.083% Nebulizer Soln - NEB 1 amp Q6H PRN Administration SHORT OF BREATH/WHEEZING Alprazolam 1 mg 01/23/17 10:00 01/31/17 10:15 Xanax - PO 1 mg BID [facility] Administration Aspirin 81 mg 01/29/17 10:00 01/31/17 10:15 Asa - PO 81 mg DAILY [facility] Administration Carvedilol 6.25 mg 01/31/17 22:00 Coreg - PO BID [facility] Enoxaparin Sodium 40 mg 01/24/17 19:45 01/31/17 10:15 Lovenox - SQ 40 mg DAILY [facility] Administration Gabapentin 800 mg 01/23/17 06:00 01/31/17 06:29 Neurontin - PO 800 mg TID [facility] Administration Hydromorphone HCl 1 mg 01/28/17 13:41 01/31/17 11:54 Dilaudid Injection - IVPB 1 mg Q6H PRN Administration PAIN Pantoprazole Sodium 40 mg/ 100 mls @ 200 mls/hr 01/31/17 10:15 01/31/17 11:00 Sodium Chloride IVPB Not Given DAILY [facility] Piperacillin Sod/Tazobactam 100 mls @ 200 mls/hr 01/31/17 10:13 Sod 4.5 gm/ Sodium Chloride IVPB Q8H-IV [facility] Insulin Aspart 1 vial 01/23/17 16:30 01/31/17 12:01 Novolog Vial Sliding Scale - SQ 2 unit TIDAC [facility] Administration Protocol Insulin Aspart 1 vial 01/24/17 22:00 01/30/17 21:08 Novolog Vial Sliding Scale - SQ Not Given HS COUNTS INCLUDE 234 BEDS AT [facility] Protocol Insulin Detemir 8 units 01/30/17 22:00 01/30/17 21:06 Levemir Vial SQ 8 units HS [facility] Administration Lisinopril 2.5 mg 01/27/17 10:00 01/31/17 10:15 Prinivil PO 2.5 mg DAILY [facility] Administration Magnesium Oxide 400 mg 01/31/17 13:00 Mag-Ox - PO BID [facility] Metoprolol Tartrate 5 mg 01/23/17 13:24 Lopressor Injection - IVPB Q4H PRN HYPERTENSION Ondansetron HCl 4 mg 01/23/17 02:49 01/28/17 16:41 Zofran Injection IVPB 4 mg Q6H PRN Administration NAUSEA Potassium Chloride 40 meq 01/31/17 13:15 K-Dur - PO 01/31/17 13:16 ONCE ONE Spironolactone 25 mg 01/31/17 11:45 01/31/17 12:04 Aldactone - PO 25 mg DAILY [facility] Administration AP: Abd pain/Sigmoid Diverticulitis DM Uncontrolled COPD CHF ICD implant BGM improving Tolerating diet Increase Levemir 10 units daily a HS BGM QACHS Off Metformin for now b/o GI symptoms Novolog SS coverage Teach pt to self inject insulin IV abx
[2017-01-31] MEDS ORDERED: POTASSIUM CHLORIDE TABS 20 MEQ TABLET.ER (FP) PO ONE (13:15)
[2017-01-31] MEDS: MAGNESIUM OXIDE 400 MG TABLET (FP) PO SCH ×2 (14:18→21:36)
--- NOTE | 2017-01-31 16:26 | PN ---
Progress Note, Physician History of Present Illness: patient from abd point of view stable no issues tolerating diet events noted patient had episode of sob - Current Medication List Current Medications: Active Medications Albuterol Sulfate (Ventolin 0.083% Nebulizer Soln -) 1 amp NEB Q6H PRN PRN Reason: SHORT OF BREATH/WHEEZING Last Admin: 01/31/17 01:26 Dose: 1 amp Alprazolam (Xanax -) 1 mg PO BID [facility] Last Admin: 01/31/17 10:15 Dose: 1 mg Aspirin (Asa -) 81 mg PO DAILY [facility] Last Admin: 01/31/17 10:15 Dose: 81 mg Carvedilol (Coreg -) 6.25 mg PO BID [facility] Enoxaparin Sodium (Lovenox -) 40 mg SQ DAILY [facility] Last Admin: 01/31/17 10:15 Dose: 40 mg Gabapentin (Neurontin -) 800 mg PO TID [facility] Last Admin: 01/31/17 14:00 Dose: Not Given Hydromorphone HCl (Dilaudid Injection -) 1 mg IVPB Q6H PRN PRN Reason: PAIN Last Admin: 01/31/17 11:54 Dose: 1 mg Pantoprazole Sodium 40 mg/ (Sodium Chloride) 100 mls @ 200 mls/hr IVPB DAILY [facility] Last Admin: 01/31/17 11:00 Dose: Not Given Insulin Aspart (Novolog Vial Sliding Scale -) 1 vial SQ TIDAC [facility] PRN Reason: Protocol Last Admin: 01/31/17 12:01 Dose: 2 unit Insulin Aspart (Novolog Vial Sliding Scale -) 1 vial SQ HS [facility] PRN Reason: Protocol Last Admin: 01/30/17 21:08 Dose: Not Given Insulin Detemir (Levemir Vial) 10 units SQ HS [facility] Lisinopril (Prinivil) 2.5 mg PO DAILY [facility] Last Admin: 01/31/17 10:15 Dose: 2.5 mg Magnesium Oxide (Mag-Ox -) 400 mg PO BID [facility] Last Admin: 01/31/17 14:18 Dose: 400 mg Metoprolol Tartrate (Lopressor Injection -) 5 mg IVPB Q4H PRN PRN Reason: HYPERTENSION Ondansetron HCl (Zofran Injection) 4 mg IVPB Q6H PRN PRN Reason: NAUSEA Last Admin: 01/28/17 16:41 Dose: 4 mg Spironolactone (Aldactone -) 25 mg PO DAILY [facility] Last Admin: 01/31/17 12:04 Dose: 25 mg - Objective Vital Signs: Vital Signs Temperature 98.0 F 01/31/17 14:00 Pulse Rate 60 01/31/17 14:00 Respiratory Rate 20 01/31/17 14:00 Blood Pressure 123/83 01/31/17 14:00 O2 Sat by Pulse Oximetry (%) 98 01/31/17 09:00 Constitutional: Yes: No Distress, Calm Cardiovascular: Yes: Regular Rate and Rhythm Respiratory: Yes: Regular, CTA Bilaterally Gastrointestinal: Yes: Normal Bowel Sounds, Soft Musculoskeletal: Yes: WNL Extremities: Yes: WNL Neurological: Yes: Alert, Oriented Psychiatric: Yes: Alert, Oriented Labs: CBC, BMP 01/31/17 06:30 01/31/17 06:30 Assessment/Plan Assessment/Plan (1) Acute diverticulitis of intestine Code(s): K57.92 - DVTRCLI OF INTEST, PART UNSP, W/O PERF OR ABSCESS W/O BLEED (2) CAD (coronary artery disease) Code(s): I25.10 - ATHSCL HEART DISEASE OF [place] CORONARY ARTERY W/O ANG PCTRS Qualifiers: Coronary Disease-Associated Artery/Lesion type: [place] artery [place] vs. transplanted heart: [place] heart Associated angina: without angina Qualified Code(s): I25.10 - Atherosclerotic heart disease of [place] coronary artery without angina pectoris (3) CHF (congestive heart failure), NYHA class I Code(s): I50.9 - HEART FAILURE, UNSPECIFIED Qualifiers: Congestive heart failure type: systolic Congestive heart failure chronicity: chronic Qualified Code(s): I50.22 - Chronic systolic ( congestive) heart failure (4) COPD (chronic obstructive pulmonary disease) Code(s): J44.9 - CHRONIC OBSTRUCTIVE PULMONARY DISEASE, UNSPECIFIED Qualifiers : COPD type: unspecified COPD Qualified Code(s): J44.9 - Chronic obstructive pulmonary disease, unspecified (5) Diabetes mellitus Code(s): E11.9 - TYPE 2 DIABETES MELLITUS WITHOUT COMPLICATIONS Qualifiers: Diabetes mellitus type: type 2 Diabetes mellitus complication status: without complication (6) Single implantable cardioverter-defibrillator (ICD) in situ Code(s): Z95.810 - PRESENCE OF AUTOMATIC (IMPLANTABLE) CARDIAC DEFIBRILLATOR (7) Hypertension Code(s): I10 - ESSENTIAL (PRIMARY) HYPERTENSION Qualifiers: Hypertension type: essential hypertension Qualified Code(s): I10 - Essential (primary) hypertension (8) Anxiety Code(s): F41.9 - ANXIETY DISORDER, UNSPECIFIED plan continue abx patient tolerating diet will stop zosyn switched to oral levaquin and flagyl which we will continue for 5 more days
[2017-01-31] MEDS ORDERED: LEVOFLOXACIN 750 MG TABLET PO SCH (16:30)
[2017-01-31] MEDS ORDERED: INSULIN (NOVOLOG) ASPART 100 UNITS/ML 10ML VIAL ONE (17:08)
--- NOTE | 2017-01-31 17:31 | PN ---
Progress Note, Physician History of Present Illness: Dyspnea yesterday-improved post diuretic therapy. Abdominal pain decreased-able to eat. - Current Medication List Current Medications: Active Medications Albuterol Sulfate (Ventolin 0.083% Nebulizer Soln -) 1 amp NEB Q6H PRN PRN Reason: SHORT OF BREATH/WHEEZING Last Admin: 01/31/17 01:26 Dose: 1 amp Alprazolam (Xanax -) 1 mg PO BID [facility] Last Admin: 01/31/17 10:15 Dose: 1 mg Aspirin (Asa -) 81 mg PO DAILY [facility] Last Admin: 01/31/17 10:15 Dose: 81 mg Carvedilol (Coreg -) 6.25 mg PO BID [facility] Enoxaparin Sodium (Lovenox -) 40 mg SQ DAILY [facility] Last Admin: 01/31/17 10:15 Dose: 40 mg Gabapentin (Neurontin -) 800 mg PO TID [facility] Last Admin: 01/31/17 14:00 Dose: Not Given Hydromorphone HCl (Dilaudid Injection -) 1 mg IVPB Q6H PRN PRN Reason: PAIN Last Admin: 01/31/17 17:18 Dose: 1 mg Pantoprazole Sodium 40 mg/ (Sodium Chloride) 100 mls @ 200 mls/hr IVPB DAILY [facility] Last Admin: 01/31/17 11:00 Dose: Not Given Insulin Aspart (Novolog Vial Sliding Scale -) 1 vial SQ TIDAC [facility] PRN Reason: Protocol Last Admin: 01/31/17 17:20 Dose: 4 unit Insulin Aspart (Novolog Vial Sliding Scale -) 1 vial SQ HS [facility] PRN Reason: Protocol Last Admin: 01/30/17 21:08 Dose: Not Given Insulin Detemir (Levemir Vial) 10 units SQ HS [facility] Levofloxacin (Levaquin) 750 mg PO DAILY [facility] Lisinopril (Prinivil) 2.5 mg PO DAILY [facility] Last Admin: 01/31/17 10:15 Dose: 2.5 mg Magnesium Oxide (Mag-Ox -) 400 mg PO BID [facility] Last Admin: 01/31/17 14:18 Dose: 400 mg Metoprolol Tartrate (Lopressor Injection -) 5 mg IVPB Q4H PRN PRN Reason: HYPERTENSION Metronidazole (Flagyl -) 500 mg PO TID [facility] Ondansetron HCl (Zofran Injection) 4 mg IVPB Q6H PRN PRN Reason: NAUSEA Last Admin: 01/28/17 16:41 Dose: 4 mg Spironolactone (Aldactone -) 25 mg PO DAILY [facility] Last Admin: 01/31/17 12:04 Dose: 25 mg - Objective Vital Signs: Vital Signs Temperature 98.0 F 01/31/17 14:00 Pulse Rate 60 01/31/17 14:00 Respiratory Rate 20 01/31/17 14:00 Blood Pressure 123/83 01/31/17 14:00 O2 Sat by Pulse Oximetry (%) 98 01/31/17 09:00 Constitutional: Yes: No Distress Eyes: No: Sclera Icterus HENT: Yes: Atraumatic, Normocephalic Neck: Yes: Supple, Trachea Midline Cardiovascular: Yes: Regular Rate and Rhythm. No: JVD Respiratory: Yes: CTA Bilaterally Gastrointestinal: Yes: Soft. No: Tenderness (minimal) Extremities: No: Calf Tenderness Edema: No Neurological: Yes: Alert, Oriented Labs: CBC, BMP 01/31/17 06:30 01/31/17 06:30 - ....Imaging Chest X-ray: Report Reviewed, Image Reviewed (increased congestion) Assessment/Plan COPD- mild; respiratory status stable ISELA-uses CPAP several times per week at home. Pt has not felt the need to use it in hospital. Diverticulitis- improvong Lung Fzevlf-gsqht-[id number] increased in size over 4 years. ASHD-dyspnea yesterday seems related to CHF-now imporved post diuresis Plan Albuterol O2 to maintain SaO2 greater than 90 Antibiotic Diuretic GI and surgical monitoring in progress Repeat CT chest in one year
[2017-01-31] MEDS: metroNIDAZOLE 250 MG TABLET PO SCH (21:37)
[2017-01-31] MEDS: INSULIN DETEMIR 100 UNITS/ML MDV SQ SCH (21:37)
[2017-01-31] MEDS: CARVEDILOL 6.25 MG TABLET (FP) PO SCH (21:37)
[2017-02-01] MEDS: INSULIN SLIDING SCALE (NOVOLOG) 1 VIAL SQ SCH ×4 (06:05→21:23)
[2017-02-01] MEDS: GABAPENTIN 400 MG CAPSULE (FP) PO SCH ×3 (06:16→21:17)
[2017-02-01] MEDS: LEVOFLOXACIN 750 MG TABLET PO SCH (06:16)
[2017-02-01] MEDS: metroNIDAZOLE 250 MG TABLET PO SCH ×3 (06:16→21:16)
[2017-02-01] MEDS: HYDROmorphone HCL CARPU-JECT 1 MG/1 ML DISP.SYRIN IVPB PRN ×2 (06:16→13:08)
[2017-02-01 07:12] LABS: BASOPHIL 0.4 % (0-2.0); MCH 32.5 pg (25.7-33.7); MCHC 34.8 g/dl (32.0-36.0); MEAN CELL VOLUME 93.3 fl (80-96); MEAN PLT VOLUME 7.8 fl (7.5-11.1); NEUTROPHILS 71.5 % (42.8-82.8); PLATELET COUNT 200 K/MM3 (134-434); RDW 13.5 % (11.6-15.6)
[2017-02-01 07:20] LABS: ANION GAP 7 (8-16); CALCIUM 9.1 mg/dL (8.5-10.1); CO2 29 mmol/L (21-32); CREATININE 0.5 mg/dL (0.55-1.02); GLUCOSE,RANDOM 131 mg/dL (74-106); MAGNESIUM 1.8 mg/dL (1.8-2.4); PHOSPHOROUS 4.5 mg/dL (2.5-4.9)
--- NOTE | 2017-02-01 09:01 | PN ---
Progress Note (short form) - Note Progress Note: Feels better, Off IV Abx Tolerating diet Blood sugar improving No hypos Vital Signs Period Temp Pulse Resp BP Sys/Riley Pulse Ox Last 24 Hr 97.9 F-98.1 F 60-65 20-20 123-143/52-83 97-98 PE: AOx3 Neck: Supple, No JVD HEENT: EOMI Lungs: Few basal crackles CVS: S1S2 Abd: soft, BS present. minimal LLQ tenderness EXt: No edema Neuro: No focal deficit CMP Sodium 141 mmol/L (136-145) 02/01/17 06:05 Potassium 3.4 mmol/L (3.5-5.1) L 02/01/17 06:05 Chloride 105 mmol/L (98-107) 02/01/17 06:05 Carbon Dioxide 29 mmol/L (21-32) 02/01/17 06:05 Anion Gap 7 (8-16) L 02/01/17 06:05 BUN 7 mg/dL (7-18) D 02/01/17 06:05 Creatinine 0.5 mg/dL (0.55-1.02) L 02/01/17 06:05 Creat Clearance w eGFR > 60 (>60) 01/25/17 05:35 POC Glucometer 133 UNITS (()) 02/01/17 05:52 Random Glucose 131 mg/dL (74-106) H 02/01/17 06:05 Calcium 9.1 mg/dL (8.5-10.1) 02/01/17 06:05 Phosphorus 4.5 mg/dL (2.5-4.9) D 02/01/17 06:05 Magnesium 1.8 mg/dL (1.8-2.4) 02/01/17 06:05 Total Bilirubin 0.6 mg/dL (0.2-1.0) 01/25/17 05:35 AST 37 U/L (15-37) D 01/25/17 05:35 ALT 51 U/L (12-78) 01/25/17 05:35 Alkaline Phosphatase 114 U/L (45-117) 01/25/17 05:35 Creatine Kinase 47 IU/L (26-192) 01/30/17 18:20 Troponin I < 0.02 ng/ml (0.00-0.05) 01/30/17 18:20 C-Reactive Protein 1.8 MG/DL (0.00-0.3) H D 01/25/17 05:35 Total Protein 5.7 g/dl (6.4-8.2) L 01/25/17 05:35 Albumin 3.1 g/dl (3.4-5.0) L 01/25/17 05:35 Total Amylase 26 U/L (25-115) D 01/23/17 00:30 Lipase 131 U/L (73-393) 01/23/17 00:30 Serum , Qual Negative 01/23/17 00:30 Current Medications Generic Name Dose Route Start Last Admin Trade Name Freq PRN Reason Stop Dose Admin Albuterol Sulfate 1 amp 01/23/17 02:52 01/31/17 01:26 Ventolin 0.083% Nebulizer Soln - NEB 1 amp Q6H PRN Administration SHORT OF BREATH/WHEEZING Alprazolam 1 mg 01/23/17 10:00 01/31/17 21:36 Xanax - PO 1 mg BID [facility] Administration Aspirin 81 mg 01/29/17 10:00 01/31/17 10:15 Asa - PO 81 mg DAILY [facility] Administration Carvedilol 6.25 mg 01/31/17 22:00 01/31/17 21:37 Coreg - PO 6.25 mg BID [facility] Administration Enoxaparin Sodium 40 mg 01/24/17 19:45 01/31/17 10:15 Lovenox - SQ 40 mg DAILY [facility] Administration Gabapentin 800 mg 01/23/17 06:00 02/01/17 06:16 Neurontin - PO 800 mg TID [facility] Administration Hydromorphone HCl 1 mg 01/28/17 13:41 02/01/17 06:16 Dilaudid Injection - IVPB 1 mg Q6H PRN Administration PAIN Pantoprazole Sodium 40 mg/ 100 mls @ 200 mls/hr 01/31/17 10:15 01/31/17 11:00 Sodium Chloride IVPB Not Given DAILY [facility] Insulin Aspart 1 vial 01/23/17 16:30 02/01/17 06:05 Novolog Vial Sliding Scale - SQ Not Given TIDAC [facility] Protocol Insulin Aspart 1 vial 01/24/17 22:00 01/31/17 21:38 Novolog Vial Sliding Scale - SQ Not Given HS [facility] Protocol Insulin Detemir 10 units 01/31/17 22:00 01/31/17 21:37 Levemir Vial SQ 10 units HS [facility] Administration Levofloxacin 750 mg 02/01/17 06:00 02/01/17 06:16 Levaquin PO 750 mg DAILY@0600 [facility] Administration Lisinopril 2.5 mg 01/27/17 10:00 01/31/17 10:15 Prinivil PO 2.5 mg DAILY [facility] Administration Magnesium Oxide 400 mg 01/31/17 13:00 01/31/17 21:36 Mag-Ox - PO 400 mg BID [facility] Administration Metoprolol Tartrate 5 mg 01/23/17 13:24 Lopressor Injection - IVPB Q4H PRN HYPERTENSION Metronidazole 500 mg 01/31/17 22:00 02/01/17 06:16 Flagyl - PO 500 mg TID [facility] Administration Ondansetron HCl 4 mg 01/23/17 02:49 01/28/17 16:41 Zofran Injection IVPB 4 mg Q6H PRN Administration NAUSEA Spironolactone 25 mg 01/31/17 11:45 01/31/17 12:04 Aldactone - PO 25 mg DAILY [facility] Administration AP: Abd pain/Sigmoid Diverticulitis DM Uncontrolled COPD CHF ICD implant BGM improving Tolerating diet Levemir 10 units daily a HS BGM QACHS Off Metformin for now b/o GI symptoms Novolog SS coverage Teach pt to self inject insulin Off IV abx, On Metronidazole and Levaquin
[2017-02-01] MEDS ORDERED: PANTOPRAZOLE SODIUM 40 MG VIAL ONE (09:36)
[2017-02-01] MEDS ORDERED: SODIUM CHLORIDE 100 ML IVPB ONE (09:37)
[2017-02-01] MEDS: ALPRAZolam 2 MG TABLET PO SCH ×2 (09:42→21:16)
[2017-02-01] MEDS: PANTOPRAZOLE SODIUM 40 MG in SODIUM CHLORIDE 100 ML IVPB SCH (09:42)
[2017-02-01] MEDS: LISINOPRIL 5 MG TABLET (FP) PO SCH (09:42)
[2017-02-01] MEDS: ASPIRIN 81 MG CHEWABLE TABLETS PO SCH (09:43)
[2017-02-01] MEDS: ENOXAPARIN NA (PORCINE) 40 MG/0.4 ML DISP.SYRIN SQ SCH (09:43)
[2017-02-01] MEDS: CARVEDILOL 6.25 MG TABLET (FP) PO SCH ×2 (09:43→21:16)
[2017-02-01] MEDS: SPIRONOLACTONE 25 MG TABLET (FP) PO SCH (09:43)
[2017-02-01] MEDS: MAGNESIUM OXIDE 400 MG TABLET (FP) PO SCH ×2 (09:43→21:16)
--- NOTE | 2017-02-01 13:23 | PN ---
Progress Note, Physician Chief Complaint: Ms Edouard says she is feeling improved. No cp, sob, n/v. Tolerating diet - Current Medication List Current Medications: Active Medications Albuterol Sulfate (Ventolin 0.083% Nebulizer Soln -) 1 amp NEB Q6H PRN PRN Reason: SHORT OF BREATH/WHEEZING Last Admin: 01/31/17 01:26 Dose: 1 amp Alprazolam (Xanax -) 1 mg PO BID [facility] Last Admin: 02/01/17 09:42 Dose: 1 mg Aspirin (Asa -) 81 mg PO DAILY [facility] Last Admin: 02/01/17 09:43 Dose: 81 mg Carvedilol (Coreg -) 6.25 mg PO BID [facility] Last Admin: 02/01/17 09:43 Dose: 6.25 mg Enoxaparin Sodium (Lovenox -) 40 mg SQ DAILY [facility] Last Admin: 02/01/17 09:43 Dose: 40 mg Gabapentin (Neurontin -) 800 mg PO TID [facility] Last Admin: 02/01/17 06:16 Dose: 800 mg Pantoprazole Sodium 40 mg/ (Sodium Chloride) 100 mls @ 200 mls/hr IVPB DAILY [facility] Last Admin: 02/01/17 09:42 Dose: 200 mls/hr Insulin Aspart (Novolog Vial Sliding Scale -) 1 vial SQ TIDAC [facility] PRN Reason: Protocol Last Admin: 02/01/17 13:10 Dose: 4 unit Insulin Aspart (Novolog Vial Sliding Scale -) 1 vial SQ HS [facility] PRN Reason: Protocol Last Admin: 01/31/17 21:38 Dose: Not Given Insulin Detemir (Levemir Vial) 10 units SQ HS [facility] Last Admin: 01/31/17 21:37 Dose: 10 units Levofloxacin (Levaquin) 750 mg PO DAILY@0600 [facility] Last Admin: 02/01/17 06:16 Dose: 750 mg Lisinopril (Prinivil) 2.5 mg PO DAILY [facility] Last Admin: 02/01/17 09:42 Dose: 2.5 mg Magnesium Oxide (Mag-Ox -) 400 mg PO BID [facility] Last Admin: 02/01/17 09:43 Dose: 400 mg Metoprolol Tartrate (Lopressor Injection -) 5 mg IVPB Q4H PRN PRN Reason: HYPERTENSION Metronidazole (Flagyl -) 500 mg PO TID [facility] Last Admin: 02/01/17 06:16 Dose: 500 mg Ondansetron HCl (Zofran Injection) 4 mg IVPB Q6H PRN PRN Reason: NAUSEA Last Admin: 01/28/17 16:41 Dose: 4 mg Oxycodone/Acetaminophen (Percocet 5/325 -) combo PO Q6H [facility] Spironolactone (Aldactone -) 25 mg PO DAILY [facility] Last Admin: 02/01/17 09:43 Dose: 25 mg - Objective Vital Signs: Vital Signs Temperature 97.9 F 02/01/17 02:03 Pulse Rate 71 02/01/17 10:00 Respiratory Rate 18 02/01/17 10:00 Blood Pressure 144/90 02/01/17 10:00 O2 Sat by Pulse Oximetry (%) 97 01/31/17 21:00 Constitutional: Yes: Well Nourished, No Distress, Calm Cardiovascular: Yes: Regular Rate and Rhythm. No: Gallop, Murmur, Rub Respiratory: Yes: Regular, Rhonchi. No: Rales, Wheezes Gastrointestinal: Yes: Normal Bowel Sounds, Soft. No: Distention, Tenderness Extremities: Yes: WNL Edema: No Labs: CBC, BMP 02/01/17 06:05 02/01/17 06:05 Assessment/Plan (1) Acute diverticulitis of intestine Assessment/Plan: -patient with bowel movements and tolerating diet -on oral antibiotics -change to oral percocet Code(s): K57.92 - DVTRCLI OF INTEST, PART UNSP, W/O PERF OR ABSCESS W/O BLEED (2) CAD (coronary artery disease) Assessment/Plan: -stable Code(s): I25.10 - ATHSCL HEART DISEASE OF [place] CORONARY ARTERY W/O ANG PCTRS Qualifiers: Coronary Disease-Associated Artery/Lesion type: [place] artery [place] vs. transplanted heart: [place] heart Associated angina: without angina Qualified Code(s): I25.10 - Atherosclerotic heart disease of [place] coronary artery without angina pectoris (3) CHF (congestive heart failure), NYHA class I Assessment/Plan -improved -continue aldactone -cardiology following Code(s): I50.9 - HEART FAILURE, UNSPECIFIED Qualifiers: Congestive heart failure type: systolic Congestive heart failure chronicity: chronic Qualified Code(s): I50.22 - Chronic systolic ( congestive) heart failure (4) COPD (chronic obstructive pulmonary disease) Assessment/Plan: -pulmonary following -continue bronchodilators Code(s): J44.9 - CHRONIC OBSTRUCTIVE PULMONARY DISEASE, UNSPECIFIED Qualifiers : COPD type: unspecified COPD Qualified Code(s): J44.9 - Chronic obstructive pulmonary disease, unspecified (5) Diabetes mellitus Assessment/Plan: -endocrinology following and managing Code(s): E11.9 - TYPE 2 DIABETES MELLITUS WITHOUT COMPLICATIONS Qualifiers: Diabetes mellitus type: type 2 Diabetes mellitus complication status: without complication (6) Single implantable cardioverter-defibrillator (ICD) in situ Assessment/Plan: -per cardiology Code(s): Z95.810 - PRESENCE OF AUTOMATIC (IMPLANTABLE) CARDIAC DEFIBRILLATOR (7) Hypertension Assessment/Plan: -normotensive Code(s): I10 - ESSENTIAL (PRIMARY) HYPERTENSION Qualifiers: Hypertension type: essential hypertension Qualified Code(s): I10 - Essential (primary) hypertension (8) Anxiety Assessment/Plan: -continue xanax Code(s): F41.9 - ANXIETY DISORDER, UNSPECIFIED Dispo -plan for discharge tomorrow
[2017-02-01] MEDS ORDERED: POTASSIUM CHLORIDE TABS 20 MEQ TABLET.ER (FP) PO ONE (13:24)
[2017-02-01] MEDS ORDERED: OXYCODONE/APAP 5/325MG COMBO TABLET PO SCH (13:30)
--- NOTE | 2017-02-01 15:07 | PN ---
Progress Note, Physician History of Present Illness: stable doing well some pain still there overall doing well - Current Medication List Current Medications: Active Medications Albuterol Sulfate (Ventolin 0.083% Nebulizer Soln -) 1 amp NEB Q6H PRN PRN Reason: SHORT OF BREATH/WHEEZING Last Admin: 01/31/17 01:26 Dose: 1 amp Alprazolam (Xanax -) 1 mg PO BID [facility] Last Admin: 02/01/17 09:42 Dose: 1 mg Aspirin (Asa -) 81 mg PO DAILY [facility] Last Admin: 02/01/17 09:43 Dose: 81 mg Carvedilol (Coreg -) 6.25 mg PO BID [facility] Last Admin: 02/01/17 09:43 Dose: 6.25 mg Enoxaparin Sodium (Lovenox -) 40 mg SQ DAILY [facility] Last Admin: 02/01/17 09:43 Dose: 40 mg Gabapentin (Neurontin -) 800 mg PO TID [facility] Last Admin: 02/01/17 06:16 Dose: 800 mg Pantoprazole Sodium 40 mg/ (Sodium Chloride) 100 mls @ 200 mls/hr IVPB DAILY [facility] Last Admin: 02/01/17 09:42 Dose: 200 mls/hr Insulin Aspart (Novolog Vial Sliding Scale -) 1 vial SQ TIDAC [facility] PRN Reason: Protocol Last Admin: 02/01/17 13:10 Dose: 4 unit Insulin Aspart (Novolog Vial Sliding Scale -) 1 vial SQ [facility] PRN Reason: Protocol Last Admin: 01/31/17 21:38 Dose: Not Given Insulin Detemir (Levemir Vial) 10 units SQ HS [facility] Last Admin: 01/31/17 21:37 Dose: 10 units Levofloxacin (Levaquin) 750 mg PO DAILY@0600 [facility] Last Admin: 02/01/17 06:16 Dose: 750 mg Lisinopril (Prinivil) 2.5 mg PO DAILY [facility] Last Admin: 02/01/17 09:42 Dose: 2.5 mg Magnesium Oxide (Mag-Ox -) 400 mg PO BID [facility] Last Admin: 02/01/17 09:43 Dose: 400 mg Metoprolol Tartrate (Lopressor Injection -) 5 mg IVPB Q4H PRN PRN Reason: HYPERTENSION Metronidazole (Flagyl -) 500 mg PO TID [facility] Last Admin: 02/01/17 06:16 Dose: 500 mg Ondansetron HCl (Zofran Injection) 4 mg IVPB Q6H PRN PRN Reason: NAUSEA Last Admin: 01/28/17 16:41 Dose: 4 mg Oxycodone/Acetaminophen (Percocet 5/325 -) combo PO Q6H [facility] Spironolactone (Aldactone -) 25 mg PO DAILY [facility] Last Admin: 02/01/17 09:43 Dose: 25 mg - Objective Vital Signs: Vital Signs Temperature 97.7 F 02/01/17 14:00 Pulse Rate 63 02/01/17 14:00 Respiratory Rate 17 02/01/17 14:00 Blood Pressure 140/91 02/01/17 14:00 O2 Sat by Pulse Oximetry (%) 97 01/31/17 21:00 Constitutional: Yes: No Distress, Calm Cardiovascular: Yes: Regular Rate and Rhythm Respiratory: Yes: Regular, CTA Bilaterally Gastrointestinal: Yes: Normal Bowel Sounds, Soft Musculoskeletal: Yes: WNL Extremities: Yes: WNL Neurological: Yes: Alert, Oriented Psychiatric: Yes: Alert, Oriented Labs: CBC, BMP 02/01/17 06:05 02/01/17 06:05 Assessment/Plan Assessment/Plan (1) Acute diverticulitis of intestine Code(s): K57.92 - DVTRCLI OF INTEST, PART UNSP, W/O PERF OR ABSCESS W/O BLEED (2) CAD (coronary artery disease) Code(s): I25.10 - ATHSCL HEART DISEASE OF [place] CORONARY ARTERY W/O ANG PCTRS Qualifiers: Coronary Disease-Associated Artery/Lesion type: [place] artery [place] vs. transplanted heart: [place] heart Associated angina: without angina Qualified Code(s): I25.10 - Atherosclerotic heart disease of [place] coronary artery without angina pectoris (3) CHF (congestive heart failure), NYHA class I Code(s): I50.9 - HEART FAILURE, UNSPECIFIED Qualifiers: Congestive heart failure type: systolic Congestive heart failure chronicity: chronic Qualified Code(s): I50.22 - Chronic systolic ( congestive) heart failure (4) COPD (chronic obstructive pulmonary disease) Code(s): J44.9 - CHRONIC OBSTRUCTIVE PULMONARY DISEASE, UNSPECIFIED Qualifiers : COPD type: unspecified COPD Qualified Code(s): J44.9 - Chronic obstructive pulmonary disease, unspecified (5) Diabetes mellitus Code(s): E11.9 - TYPE 2 DIABETES MELLITUS WITHOUT COMPLICATIONS Qualifiers: Diabetes mellitus type: type 2 Diabetes mellitus complication status: without complication (6) Single implantable cardioverter-defibrillator (ICD) in situ Code(s): Z95.810 - PRESENCE OF AUTOMATIC (IMPLANTABLE) CARDIAC DEFIBRILLATOR (7) Hypertension Code(s): I10 - ESSENTIAL (PRIMARY) HYPERTENSION Qualifiers: Hypertension type: essential hypertension Qualified Code(s): I10 - Essential (primary) hypertension (8) Anxiety Code(s): F41.9 - ANXIETY DISORDER, UNSPECIFIED plan tolerated abx continue current mgmt
[2017-02-01] MEDS ORDERED: OXYCODONE/APAP 5/325MG COMBO TABLET PO PRN (17:05)
--- NOTE | 2017-02-01 17:15 | PN ---
Progress Note, Physician Chief Complaint: Events noted Complains of diffuse abdominal pain intermittently, but better History of Present Illness: Patient was seen and examined. Awake and alert. Chart was reviewed Denies chest pain, SOB or palpitations Diffuse abdominal pain at times, but improved - Current Medication List Current Medications: Active Medications Acetaminophen (Tylenol -) 650 mg PO Q6H PRN PRN Reason: PAIN LEVEL 6-10 Albuterol Sulfate (Ventolin 0.083% Nebulizer Soln -) 1 amp NEB Q6H PRN PRN Reason: SHORT OF BREATH/WHEEZING Last Admin: 01/31/17 01:26 Dose: 1 amp Alprazolam (Xanax -) 1 mg PO BID [facility] Last Admin: 02/01/17 09:42 Dose: 1 mg Aspirin (Asa -) 81 mg PO DAILY [facility] Last Admin: 02/01/17 09:43 Dose: 81 mg Carvedilol (Coreg -) 6.25 mg PO BID [facility] Last Admin: 02/01/17 09:43 Dose: 6.25 mg Enoxaparin Sodium (Lovenox -) 40 mg SQ DAILY [facility] Last Admin: 02/01/17 09:43 Dose: 40 mg Gabapentin (Neurontin -) 800 mg PO TID [facility] Last Admin: 02/01/17 15:00 Dose: 800 mg Pantoprazole Sodium 40 mg/ (Sodium Chloride) 100 mls @ 200 mls/hr IVPB DAILY [facility] Last Admin: 02/01/17 09:42 Dose: 200 mls/hr Insulin Aspart (Novolog Vial Sliding Scale -) 1 vial SQ TIDAC [facility] PRN Reason: Protocol Last Admin: 02/01/17 13:10 Dose: 4 unit Insulin Aspart (Novolog Vial Sliding Scale -) 1 vial SQ HS [facility] PRN Reason: Protocol Last Admin: 01/31/17 21:38 Dose: Not Given Insulin Detemir (Levemir Vial) 10 units SQ HS [facility] Last Admin: 01/31/17 21:37 Dose: 10 units Levofloxacin (Levaquin) 750 mg PO DAILY@0600 [facility] Last Admin: 02/01/17 06:16 Dose: 750 mg Lisinopril (Prinivil) 2.5 mg PO DAILY [facility] Last Admin: 02/01/17 09:42 Dose: 2.5 mg Magnesium Oxide (Mag-Ox -) 400 mg PO BID [facility] Last Admin: 02/01/17 09:43 Dose: 400 mg Metoprolol Tartrate (Lopressor Injection -) 5 mg IVPB Q4H PRN PRN Reason: HYPERTENSION Metronidazole (Flagyl -) 500 mg PO TID [facility] Last Admin: 02/01/17 15:07 Dose: 500 mg Ondansetron HCl (Zofran Injection) 4 mg IVPB Q6H PRN PRN Reason: NAUSEA Last Admin: 01/28/17 16:41 Dose: 4 mg Oxycodone HCl (Roxicodone -) 10 mg PO Q6H PRN PRN Reason: PAIN LEVEL 6-10 Spironolactone (Aldactone -) 25 mg PO DAILY [facility] Last Admin: 02/01/17 09:43 Dose: 25 mg - Objective Vital Signs: Vital Signs Temperature 97.7 F 02/01/17 14:00 Pulse Rate 63 02/01/17 14:00 Respiratory Rate 17 02/01/17 14:00 Blood Pressure 140/91 02/01/17 14:00 O2 Sat by Pulse Oximetry (%) 97 01/31/17 21:00 Neck: Yes: Supple Cardiovascular: Yes: Regular Rate and Rhythm, S1, S2 Respiratory: Yes: CTA Bilaterally Gastrointestinal: Yes: Normal Bowel Sounds, Tenderness (Diffuse) Edema: No Labs: CBC, BMP 02/01/17 06:05 02/01/17 06:05 Problem List - Problems (1) Acute diverticulitis of intestine Code(s): K57.92 - DVTRCLI OF INTEST, PART UNSP, W/O PERF OR ABSCESS W/O BLEED (2) CAD (coronary artery disease) Code(s): I25.10 - ATHSCL HEART DISEASE OF [place] CORONARY ARTERY W/O ANG PCTRS Qualifiers: Coronary Disease-Associated Artery/Lesion type: [place] artery [place] vs. transplanted heart: [place] heart Associated angina: without angina Qualified Code(s): I25.10 - Atherosclerotic heart disease of [place] coronary artery without angina pectoris (3) CHF (congestive heart failure), NYHA class I Code(s): I50.9 - HEART FAILURE, UNSPECIFIED Qualifiers: Congestive heart failure type: systolic Congestive heart failure chronicity: chronic Qualified Code(s): I50.22 - Chronic systolic ( congestive) heart failure (4) COPD (chronic obstructive pulmonary disease) Code(s): J44.9 - CHRONIC OBSTRUCTIVE PULMONARY DISEASE, UNSPECIFIED Qualifiers : COPD type: unspecified COPD Qualified Code(s): J44.9 - Chronic obstructive pulmonary disease, unspecified (5) Diabetes mellitus Code(s): E11.9 - TYPE 2 DIABETES MELLITUS WITHOUT COMPLICATIONS Qualifiers: Diabetes mellitus type: type 2 Diabetes mellitus complication status: with hyperglycemia Diabetes mellitus [facility] 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 Qualified Code(s): E11.65 - Type 2 diabetes mellitus with hyperglycemia; Z79.4 - alf (current) use of insulin (6) Neurocardiogenic syncope Code(s): R55 - SYNCOPE AND COLLAPSE (7) Renal insufficiency Code(s): N28.9 - DISORDER OF KIDNEY AND URETER, UNSPECIFIED (8) Chronic left ventricular systolic dysfunction Code(s): I51.9 - HEART DISEASE, UNSPECIFIED (9) Single implantable cardioverter-defibrillator (ICD) in situ Code(s): Z95.810 - PRESENCE OF AUTOMATIC (IMPLANTABLE) CARDIAC DEFIBRILLATOR (10) Anxiety Code(s): F41.9 - ANXIETY DISORDER, UNSPECIFIED (11) Hyperlipidemia Code(s): E78.5 - HYPERLIPIDEMIA, UNSPECIFIED Qualifiers: Hyperlipidemia type: pure hypercholesterolemia Qualified Code(s): E78.00 - Pure hypercholesterolemia, unspecified; E78.0 - Pure hypercholesterolemia (12) Hypertension Code(s): I10 - ESSENTIAL (PRIMARY) HYPERTENSION Qualifiers: Hypertension type: essential hypertension Qualified Code(s): I10 - Essential (primary) hypertension Assessment/Plan 1. Acute sigmoid diverticulitis - improving 2. CAD S/P PCI/stent, angina pectoris 3. Ischemic cardiomyopathy with history of failure S/P ICD, euvolemic 4. HTN/HCVD 5. Hypercholesterolemia 6. OSAS noncompliant with CPAP 7. History of neurocardiogenic syncope 8. Depression/anxiety/eating disorder 9. Mild COPD 10. Uncontrolled diabetes mellitus PLAN: 1. Continue present management as per surgical service 2. Continue Carvedilol and Prinivil as tolerated 3. CPAP, bronchodilator and O2 as needed Further plans are to follow. Patient may be discharged cardiac standpoint Marcus Kemp MD
[2017-02-01] MEDS: ACETAMINOPHEN 325 MG TABLET (FP) PO PRN (19:42)
[2017-02-01] MEDS: oxyCODONE HCL 5 MG TABLET PO PRN (19:42)
--- NOTE | 2017-02-01 20:58 | EKG ---
Test Reason : Blood Pressure : / mmHG Vent. Rate : 062 BPM Atrial Rate : 062 BPM P-R Int : 194 ms QRS Dur : 070 ms QT Int : 360 ms P-R-T Axes : 054 037 101 degrees QTc Int : 365 ms POOR DATA QUALITY, INTERPRETATION MAY BE ADVERSELY AFFECTED NORMAL SINUS RHYTHM LOW VOLTAGE QRS CANNOT RULE OUT ANTEROSEPTAL INFARCT (CITED ON OR BEFORE 16-OCT-2014) ABNORMAL ECG WHEN COMPARED WITH ECG OF 23-JAN-2017 00:45, NONSPECIFIC T WAVE ABNORMALITY HAS REPLACED INVERTED T WAVES IN ANTERIOR LEADS REPEAT EKG IF CLINICALLY INDICATED Confirmed by BAY ONEAL MD ([id number] on 02/01/2017 8:58:30 PM Referred By: Confirmed By:BAY ONEAL MD
[2017-02-01] MEDS ORDERED: INSULIN (NOVOLOG) ASPART 100 UNITS/ML 10ML VIAL ONE (21:00)
[2017-02-01] MEDS: INSULIN DETEMIR 100 UNITS/ML MDV SQ SCH (21:17)
[2017-02-02] MEDS ORDERED: PT OWN MED DRAWER 7, Y5N ONE (05:58)
[2017-02-02] MEDS: metroNIDAZOLE 250 MG TABLET PO SCH (06:03)
[2017-02-02] MEDS: GABAPENTIN 400 MG CAPSULE (FP) PO SCH (06:03)
[2017-02-02] MEDS: LEVOFLOXACIN 750 MG TABLET PO SCH (06:03)
[2017-02-02] MEDS: INSULIN SLIDING SCALE (NOVOLOG) 1 VIAL SQ SCH ×2 (06:04→12:16)
[2017-02-02 06:46] VITALS: TEMP 98.3
--- NOTE | 2017-02-02 09:12 | PN ---
Progress Note (short form) - Note Progress Note: Feels good Denies any complaints, Tolerating diet Vital Signs Period Temp Pulse Resp BP Sys/Riley Pulse Ox Last 24 Hr 97.7 F-98.3 F 61-71 17-20 114-146/83-96 97 PE: AOx3 Neck: Supple, No JVD HEENT: EOMI Lungs: Few basal crackles CVS: S1S2 Abd: soft, BS present. NT EXt: No edema Neuro: No focal deficit CMP Sodium 141 mmol/L (136-145) 02/01/17 06:05 Potassium 3.4 mmol/L (3.5-5.1) L 02/01/17 06:05 Chloride 105 mmol/L (98-107) 02/01/17 06:05 Carbon Dioxide 29 mmol/L (21-32) 02/01/17 06:05 Anion Gap 7 (8-16) L 02/01/17 06:05 BUN 7 mg/dL (7-18) D 02/01/17 06:05 Creatinine 0.5 mg/dL (0.55-1.02) L 02/01/17 06:05 Creat Clearance w eGFR > 60 (>60) 01/25/17 05:35 POC Glucometer 172 UNITS (()) 02/02/17 06:01 Random Glucose 131 mg/dL (74-106) H 02/01/17 06:05 Calcium 9.1 mg/dL (8.5-10.1) 02/01/17 06:05 Phosphorus 4.5 mg/dL (2.5-4.9) D 02/01/17 06:05 Magnesium 1.8 mg/dL (1.8-2.4) 02/01/17 06:05 Total Bilirubin 0.6 mg/dL (0.2-1.0) 01/25/17 05:35 AST 37 U/L (15-37) D 01/25/17 05:35 ALT 51 U/L (12-78) 01/25/17 05:35 Alkaline Phosphatase 114 U/L (45-117) 01/25/17 05:35 Creatine Kinase 47 IU/L (26-192) 01/30/17 18:20 Troponin I < 0.02 ng/ml (0.00-0.05) 01/30/17 18:20 C-Reactive Protein 1.8 MG/DL (0.00-0.3) H D 01/25/17 05:35 Total Protein 5.7 g/dl (6.4-8.2) L 01/25/17 05:35 Albumin 3.1 g/dl (3.4-5.0) L 01/25/17 05:35 Total Amylase 26 U/L (25-115) D 01/23/17 00:30 Lipase 131 U/L (73-393) 01/23/17 00:30 Serum , Qual Negative 01/23/17 00:30 Current Medications Generic Name Dose Route Start Last Admin Trade Name Freq PRN Reason Stop Dose Admin Acetaminophen 650 mg 02/01/17 17:11 02/01/17 19:42 Tylenol - PO 650 mg Q6H PRN Administration PAIN LEVEL 6-10 Albuterol Sulfate 1 amp 01/23/17 02:52 01/31/17 01:26 Ventolin 0.083% Nebulizer Soln - NEB 1 amp Q6H PRN Administration SHORT OF BREATH/WHEEZING Alprazolam 1 mg 01/23/17 10:00 02/01/17 21:16 Xanax - PO 1 mg BID GABI Administration Aspirin 81 mg 01/29/17 10:00 02/01/17 09:43 Asa - PO 81 mg DAILY GABI Administration Carvedilol 6.25 mg 01/31/17 22:00 02/01/17 21:16 Coreg - PO 6.25 mg BID GABI Administration Enoxaparin Sodium 40 mg 01/24/17 19:45 02/01/17 09:43 Lovenox - SQ 40 mg DAILY GABI Administration Gabapentin 800 mg 01/23/17 06:00 02/02/17 06:03 Neurontin - PO 800 mg TID GABI Administration Pantoprazole Sodium 40 mg/ 100 mls @ 200 mls/hr 01/31/17 10:15 02/01/17 09:42 Sodium Chloride IVPB 200 mls/hr DAILY GABI Administration Insulin Aspart 1 vial 01/23/17 16:30 02/02/17 06:04 Novolog Vial Sliding Scale - SQ 2 unit TIDAC [facility] Administration Protocol Insulin Aspart 1 vial 01/24/17 22:00 02/01/17 21:23 Novolog Vial Sliding Scale - SQ 4 units HS GABI Administration Protocol Insulin Detemir 10 units 01/31/17 22:00 02/01/17 21:17 Levemir Vial SQ 10 units HS GABI Administration Levofloxacin 750 mg 02/01/17 06:00 02/02/17 06:03 Levaquin PO 750 mg DAILY@0600 GABI Administration Lisinopril 2.5 mg 01/27/17 10:00 02/01/17 09:42 Prinivil PO 2.5 mg DAILY GABI Administration Magnesium Oxide 400 mg 01/31/17 13:00 02/01/17 21:16 Mag-Ox - PO 400 mg BID GABI Administration Metoprolol Tartrate 5 mg 01/23/17 13:24 Lopressor Injection - IVPB Q4H PRN HYPERTENSION Metronidazole 500 mg 01/31/17 22:00 02/02/17 06:03 Flagyl - PO 500 mg TID GABI Administration Ondansetron HCl 4 mg 01/23/17 02:49 01/28/17 16:41 Zofran Injection IVPB 4 mg Q6H PRN Administration NAUSEA Oxycodone HCl 10 mg 02/01/17 17:11 02/01/17 19:42 Roxicodone - PO 10 mg Q6H PRN Administration PAIN LEVEL 6-10 Spironolactone 25 mg 01/31/17 11:45 02/01/17 09:43 Aldactone - PO 25 mg DAILY GABI Administration AP: Abd pain/Sigmoid Diverticulitis DM Uncontrolled COPD CHF ICD implant BGM improving Tolerating diet Levemir 10 units daily a HS BGM QACHS Off Metformin for now b/o GI symptoms Novolog SS coverage Pt able to self inject insulin Off IV abx, On Metronidazole and Levaquin Pt may go home of her home antidiabetic medications of Metformin 1000mg Daily and Glimepride 2mg before breakfast Pt to f/u in office in one week with FS record. Will adjust medications a necessary as outpt.
[2017-02-02] MEDS: ALPRAZolam 2 MG TABLET PO SCH (09:24)
[2017-02-02] MEDS: oxyCODONE HCL 5 MG TABLET PO PRN (09:25)
[2017-02-02] MEDS: MAGNESIUM OXIDE 400 MG TABLET (FP) PO SCH (09:25)
[2017-02-02] MEDS: ACETAMINOPHEN 325 MG TABLET (FP) PO PRN (09:26)
[2017-02-02] MEDS: LISINOPRIL 5 MG TABLET (FP) PO SCH (09:27)
[2017-02-02] MEDS: SPIRONOLACTONE 25 MG TABLET (FP) PO SCH (09:27)
[2017-02-02] MEDS: CARVEDILOL 6.25 MG TABLET (FP) PO SCH (09:28)
[2017-02-02] MEDS: ENOXAPARIN NA (PORCINE) 40 MG/0.4 ML DISP.SYRIN SQ SCH (09:28)
[2017-02-02] MEDS: ASPIRIN 81 MG CHEWABLE TABLETS PO SCH (09:28)
[2017-02-02 10:49] VITALS: BP 137/89; PULSE 59
--- NOTE | 2017-02-02 11:31 | DS ---
Physical Examination Vital Signs: Vital Signs Temperature 98.3 F 02/02/17 06:46 Pulse Rate 59 L 02/02/17 10:00 Respiratory Rate 20 02/02/17 10:00 Blood Pressure 137/89 02/02/17 10:00 O2 Sat by Pulse Oximetry (%) 97 02/01/17 21:00 Labs: CBC, BMP 02/01/17 06:05 02/01/17 06:05 Discharge Summary Reason For Visit: DIVERTICULITIS OF INTESTINE,HYPERGLYCEMIA,CHRONIC Current Active Problems Acute diverticulitis of intestine (Acute) CAD (coronary artery disease) (Acute) CHF (congestive heart failure), NYHA class I (Acute) COPD (chronic obstructive pulmonary disease) (Acute) Constipation (Acute) DVT prophylaxis (Acute) Dehydration (Acute) Diabetes mellitus (Acute) Diverticulitis (Acute) Diverticulitis large intestine w/o perforation or abscess w/o bleeding (Acute) Dizziness (Acute) Elbow pain, left (Acute) Hypotension (Acute) Hypotension due to drugs (Acute) Lightheadedness (Acute) Neurocardiogenic syncope (Acute) Orthostatic hypotension (Acute) Renal insufficiency (Acute) Restless leg syndrome (Acute) Shortness of breath (Acute) Shortness of breath at rest (Acute) Syncope (Acute) Chronic left ventricular systolic dysfunction (Chronic) Depression (Chronic) Single implantable cardioverter-defibrillator (ICD) in situ (Chronic) Status post insertion of drug-eluting stent into left anterior descending artery for coronary artery disease (Chronic) Status post myocardial infarction of anterior wall (Chronic) Condition: Good - Instructions Diet, Activity, Other Instructions: diabetic diet. resume previous activity Referrals: Sandra Barry MD [Primary Care Provider] - Tonya Oneil MD [Staff Physician] - Kushal Dang MD [Staff Physician] - Mia Bell MD [Staff Physician] - Disposition: HOME - Home Medications Comprehensive Discharge Medication List: Ambulatory Orders Alprazolam [Xanax] 1 mg PO BID 04/15/16 Aspirin [ASA -] 81 mg PO DAILY 04/15/16 Atorvastatin Ca [Lipitor] 40 mg PO HS 04/15/16 Cholecalciferol (Vitamin D3) [Vitamin D -] 400 unit PO DAILY 04/15/16 Escitalopram Oxalate [Lexapro -] 20 mg PO DAILY 04/15/16 Gabapentin 800 mg PO TID 04/15/16 Topiramate 50 mg PO BID 04/15/16 Oxycodone HCl/Acetaminophen [Percocet 5-325 mg Tablet] 1 tab PO Q6H 05/21/16 Zolpidem Tartrate [Ambien] 10 mg PO HS 05/21/16 Lisinopril [Prinivil] 2.5 mg PO DAILY@1200 #30 tablet 05/31/16 Spironolactone [Aldactone -] 25 mg PO HS #30 tablet 05/31/16 Carvedilol [Coreg -] 6.25 mg PO BID #60 tablet 02/02/17 Glimepiride [Amaryl -] 2 mg PO DAILY #30 tablet 02/02/17 Levofloxacin [Levaquin] 750 mg PO DAILY@0600 #5 tab 02/02/17 Metformin HCl [Glucophage] 1,000 mg PO DAILY #20 tablet 02/02/17 Metronidazole [Flagyl -] 500 mg PO TID #30 tablet 02/02/17
[2017-02-02] MEDS: PANTOPRAZOLE SODIUM 40 MG in SODIUM CHLORIDE 100 ML IVPB SCH (11:54)
== END 2017-02-02 13:40 | disposition home or self-care (01) | DRG 392 ==
LOC: JER 23:33 → JERBED 01-23 02:50 → J6S 01-23 04:40
PROVIDERS: ADMIT Internal Medicine Geriatric Medicine; ATTEND Internal Medicine Geriatric Medicine
DX: K57.32 Diverticulitis of large intestine without perforation or abscess without bleeding (principal); I50.22 Chronic systolic (congestive) heart failure; E78.5 Hyperlipidemia, unspecified; J44.9 Chronic obstructive pulmonary disease, unspecified; E11.65 Type 2 diabetes mellitus with hyperglycemia; N39.3 Stress incontinence (female) (male); R63.0 Anorexia; Z68.27 Body mass index [BMI] 27.0-27.9, adult; F41.8 Other specified anxiety disorders; N20.0 Calculus of kidney; K52.89 Other specified noninfective gastroenteritis and colitis; K76.0 Fatty (change of) liver, not elsewhere classified; I11.0 Hypertensive heart disease with heart failure; K64.8 Other hemorrhoids; G47.33 Obstructive sleep apnea (adult) (pediatric); I25.10 Atherosclerotic heart disease of native coronary artery without angina pectoris; I25.5 Ischemic cardiomyopathy; I25.2 Old myocardial infarction; K59.00 Constipation, unspecified; F45.22 Body dysmorphic disorder; R91.1 Solitary pulmonary nodule; M54.89 Other dorsalgia; M79.7 Fibromyalgia; Z95.810 Presence of automatic (implantable) cardiac defibrillator; Z95.5 Presence of coronary angioplasty implant and graft
CPT/HCPCS: 36415; 71010-TC; 74176-TC; 74177-TC; 80048; 80053; 81003; 82009; 82150; 82550; 83690; 83735; 84100; 84484; 84703; 85025; 85651; 86140; 93005; 93010; 94640; 99283-25; Q9967

== ENCOUNTER 2017-03-14 17:58 | Inpatient (IN) | payer OTHER ==
[2017-03-14] MEDS: SODIUM CHLORIDE 0.9% 1000 ML INFUS.BAG IV ONE ×2 (18:42→18:57)
[2017-03-14 18:53] LABS: BASOPHIL 0.3 % (0-2.0); EOSINOPHIL 2.8 % (0-4.5); MCH 31.3 pg (25.7-33.7); MCHC 34.5 g/dl (32.0-36.0); MEAN CELL VOLUME 90.7 fl (80-96); MEAN PLT VOLUME 7.8 fl (7.5-11.1); NEUTROPHILS 67.2 % (42.8-82.8); PLATELET COUNT 247 K/MM3 (134-434); WHITE BLOOD COUNT 10.6 K/mm3 (4.0-10.0)
[2017-03-14] MEDS ORDERED: SODIUM CHLORIDE 0.9% 500 ML INFUS.BAG IV ONE (18:57)
--- NOTE | 2017-03-14 18:59 | PDOC ---
History of Present Illness - General History Source: Patient Exam Limitations: No Limitations - History of Present Illness Initial Comments: 03/14/17 19:01 52 y/o F with a PMHx of diabetes, CHF, COPD, HTN, HLD, anxiety, depression, presents to the ED with sudden onset of LLQ pain for 4 days. Patient reports associated dizziness. She reports similar symptoms in the past, which was diagnosed as diverticulitis. Patient reports taking Ibuprofen with no relief. She also reports some constipation, which is chronic for her. She denies nausea , vomiting, diarrhea. Denies chest pain, SOB. <Rivka Mejia - Last Filed: 03/14/17 19:01> <Martin John - Last Filed: 03/15/17 01:05> <Shin Morales - Last Filed: 03/15/17 01:12> - General Chief Complaint: Weakness Stated Complaint: SHORTNESS OF BREATH/DIZZINESS Time Seen by Provider: 03/14/17 18:58 Past History <Rivka Mejia - Last Filed: 03/14/17 19:01> <Martin John - Last Filed: 03/15/17 01:05> - Past Medical History Anemia: No Asthma: No Cancer: No Cardiac Disorders: Yes (cardiac stent 2010/pacemaker02/2012, [place]) CVA: No COPD: Yes CHF: Yes Dementia: No Diabetes: Yes GI Disorders: Yes Disorders: Yes (kidney stents, kidney stones, stress incontinence, KIDNEY FAILURE) HTN: Yes Hypercholesterolemia: Yes Liver Disease: No Psychiatric Problems: Yes (anxiety, anorexia, DEPRESSION.) Suicide Attempt (Hx): No Seizures: No Thyroid Disease: No - Surgical History Abdominal Surgery: Yes Appendectomy: No Cardiac Surgery: Yes (cardiac cath, stent, ppm/aicd) Cholecystectomy: No Lung Surgery: No Neurologic Surgery: No Orthopedic Surgery: No - Family Disease History Family Disease History: Heart Disease: Father - Immunization History Td Vaccination: Yes TDAP Vaccination: Yes Immunization Up to Date: No (no flu vaccine) - Psycho/Social/Smoking Cessation Hx Anxiety: No Suicidal Ideation: No Smoking Status: No Smoking History: Former smoker Years of Tobacco Use: 10 Have you smoked in the past 12 months: No Number of Cigarettes Smoked Daily: 3 If you are a former smoker, when did you quit?: 2014 Cigars Per Day: 0 Information on smoking cessation initiated: No 'Breaking Loose' booklet given: 12/15/14 Hx Alcohol Use: No Drug/Substance Use Hx: No Substance Use Type: None Hx Substance Use Treatment: No <Shin Morales - Last Filed: 03/15/17 01:12> - Past Medical History Allergies/Adverse Reactions: Allergies Allergy/AdvReac Type Severity Reaction Status Date / Time No Known Allergies Allergy Verified 03/14/17 18:03 Home Medications: Ambulatory Orders Alprazolam [Xanax] 1 mg PO BID 04/15/16 Aspirin [ASA -] 81 mg PO DAILY 04/15/16 Atorvastatin Ca [Lipitor] 40 mg PO HS 04/15/16 Cholecalciferol (Vitamin D3) [Vitamin D -] 400 unit PO DAILY 04/15/16 Escitalopram Oxalate [Lexapro -] 20 mg PO DAILY 04/15/16 Gabapentin 800 mg PO TID 04/15/16 Topiramate 50 mg PO BID 04/15/16 Oxycodone HCl/Acetaminophen [Percocet 5-325 mg Tablet] 1 tab PO Q6H 05/21/16 Zolpidem Tartrate [Ambien] 10 mg PO HS 05/21/16 Lisinopril [Prinivil] 2.5 mg PO DAILY@1200 #30 tablet 05/31/16 Spironolactone [Aldactone -] 25 mg PO HS #30 tablet 05/31/16 Carvedilol [Coreg -] 6.25 mg PO BID #60 tablet 02/02/17 Glimepiride [Amaryl -] 2 mg PO DAILY #30 tablet 02/02/17 Metformin HCl [Glucophage] 1,000 mg PO DAILY #20 tablet 02/02/17 Review of Systems - Review of Systems Able to Perform ROS?: Yes Comments:: 03/14/17 19:01 GENERAL/CONSTITUTIONAL: No fever or chills. No weakness. HEAD, EYES, EARS, NOSE AND THROAT: No change in vision. No ear pain or discharge. No sore throat. CARDIOVASCULAR: No chest pain or shortness of breath. RESPIRATORY: No cough, wheezing, or hemoptysis. GASTROINTESTINAL: (+) LLQ pain, constipation. No nausea, vomiting, diarrhea. GENITOURINARY: No dysuria, frequency, or change in urination. MUSCULOSKELETAL: No joint or muscle swelling or pain. No neck or back pain. SKIN: No rash NEUROLOGIC: (+) dizziness. No headache, loss of consciousness, or change in strength/sensation. ENDOCRINE: No increased thirst. No abnormal weight change. HEMATOLOGIC/LYMPHATIC: No anemia, easy bleeding, or history of blood clots. ALLERGIC/IMMUNOLOGIC: No hives or skin allergy. <JackieRivka A - Last Filed: 03/14/17 19:01> *Physical Exam - Vital Signs Last Vital Signs Temp Pulse Resp BP Pulse Ox 98.1 F 81 17 101/72 97 03/14/17 18:03 03/14/17 18:56 03/14/17 18:56 03/14/17 18:56 03/14/17 18:56 - Physical Exam Comments: 03/14/17 19:01 GENERAL: Awake, alert, and fully oriented, in no acute distress HEAD: No signs of trauma EYES: PERRLA, EOMI, sclera anicteric, conjunctiva clear ENT: Auricles normal inspection, hearing grossly normal, nares patent, oropharynx clear without exudates. Moist mucosa NECK: Normal ROM, supple, no lymphadenopathy, JVD, or masses LUNGS: Breath sounds equal, clear to auscultation bilaterally. No wheezes, and no crackles HEART: Regular rate and rhythm, normal S1 and S2, no murmurs, rubs or gallops ABDOMEN: (+) tender to palpation at LLQ. Soft, normoactive bowel sounds. No guarding, no rebound. No masses EXTREMITIES: Normal range of motion, no edema. No clubbing or cyanosis. No cords, erythema, or tenderness NEUROLOGICAL: (+) slurring speech. Cranial nerves II through XII grossly intact. normal gait. SKIN: Warm, Dry, normal turgor, no rashes or lesions noted. <JackieRivka A - Last Filed: 03/14/17 19:01> - Vital Signs Last Vital Signs Temp Pulse Resp BP Pulse Ox 98.1 F 81 17 101/72 97 03/14/17 18:03 03/14/17 18:56 03/14/17 18:56 03/14/17 18:56 03/14/17 18:56 <Martin John - Last Filed: 03/15/17 01:05> - Vital Signs Last Vital Signs Temp Pulse Resp BP Pulse Ox 98.1 F 81 17 101/72 97 03/14/17 18:03 03/14/17 18:56 03/14/17 18:56 03/14/17 18:56 03/14/17 18:56 <Shin Morales - Last Filed: 03/15/17 01:12> ED Treatment Course - LABORATORY CBC & Chemistry Diagram: 03/14/17 18:40 03/14/17 18:40 - Medications Given in the ED: ED Medications Discontinued Medications Generic Name Dose Route Start Last Admin Trade Name Freq PRN Reason Stop Dose Admin Sodium Chloride 2,000 ml 03/14/17 18:41 03/14/17 18:57 Normal Saline - IV 03/14/17 18:42 Not Given NOW ONE Sodium Chloride 1,000 ml 03/14/17 18:57 03/14/17 18:58 Normal Saline - IV 03/14/17 18:58 1,000 ml NOW ONE Administration <Rivka Mejia - Last Filed: 03/14/17 19:01> - LABORATORY CBC & Chemistry Diagram: 03/14/17 18:40 03/14/17 19:30 - ADDITIONAL ORDERS Additional order review: Laboratory Results 03/14/17 18:40 Sodium Cancelled Potassium Cancelled Chloride Cancelled Carbon Dioxide Cancelled Anion Gap Cancelled BUN Cancelled Creatinine Cancelled Creat Clearance w eGFR Cancelled Random Glucose Cancelled Calcium Cancelled Total Bilirubin Cancelled AST Cancelled ALT Cancelled Alkaline Phosphatase Cancelled Creatine Kinase Cancelled Troponin I Cancelled Total Protein Cancelled Albumin Cancelled Lipase Cancelled - RADIOLOGY Radiograph Interpretation: 03/15/17 01:06 CT Abdomen and Pelvis Impression: Questionable diarrheal illness without colonic wall inflammation. No other localizing findings for acute pathology. Read by : alessia Sellers - Medications Given in the ED: ED Medications Discontinued Medications Generic Name Dose Route Start Last Admin Trade Name Freq PRN Reason Stop Dose Admin Sodium Chloride 2,000 ml 03/14/17 18:41 03/14/17 18:57 Normal Saline - IV 03/14/17 18:42 Not Given NOW ONE Sodium Chloride 1,000 ml 03/14/17 18:57 03/14/17 18:58 Normal Saline - IV 03/14/17 18:58 1,000 ml NOW ONE Administration <Martin John - Last Filed: 03/15/17 01:05> - LABORATORY CBC & Chemistry Diagram: 03/14/17 18:40 03/14/17 19:30 - Medications Given in the ED: ED Medications Discontinued Medications Generic Name Dose Route Start Last Admin Trade Name Yani PRN Reason Stop Dose Admin Sodium Chloride 2,000 ml 03/14/17 18:41 03/14/17 18:57 Normal Saline - IV 03/14/17 18:42 Not Given NOW ONE Sodium Chloride 1,000 ml 03/14/17 18:57 03/14/17 18:58 Normal Saline - IV 03/14/17 18:58 1,000 ml NOW ONE Administration <Shin Morales - Last Filed: 03/15/17 01:12> *DC/Admit/Observation/Transfer - Attestations Scribe Attestion: 03/14/17 19:02 Documentation prepared by Rivka Mejia, acting as medical transcription for Shin Morales DO. <Rivka Mejia - Last Filed: 03/14/17 19:01> <Martin John - Last Filed: 03/15/17 01:05> - Discharge Dispostion Admit: Yes - Attestations Physician Attestion: 03/14/17 18:59 I, Dr. Shin Morales, attest that this document has been prepared under my direction and personally reviewed by me in its entirety. I further attest, that it accurately reflects all work, treatment, procedures and medical decision -making performed by me. <Shin Morales - Last Filed: 03/15/17 01:12> Diagnosis at time of Disposition: Acute kidney injury (nontraumatic), Renal insufficiency, mild, Abdominal pain in female Hypotension Qualifiers: Hypotension type: unspecified hypotension type Qualified Code(s): I95.9 - Hypotension, unspecified - Discharge Dispostion Condition at time of disposition: Unchanged/Unknown - Referrals Referrals: Sandra Barry MD [Primary Care Provider] -
[2017-03-14 19:22] LABS: INR 1.07 (0.82-1.09); PROTHROMBIN TIME (PATIENT) 11.8 SEC (9.98-11.88)
[2017-03-14 20:07] LABS: ALBUMIN 4.2 g/dl (3.4-5.0); ANION GAP 9 (8-16); BILIRUBIN,TOTAL 0.3 mg/dL (0.2-1.0); CALCIUM 8.8 mg/dL (8.5-10.1); CO2 19 mmol/L (21-32); CREATININE 1.6 mg/dL (0.55-1.02); SGOT/AST 9 U/L (15-37); SGPT/ALT 20 U/L (12-78); TOT PROT 7.5 g/dl (6.4-8.2)
[2017-03-14 20:08] LABS: ALK PHOS 108 U/L (45-117)
[2017-03-14 20:11] LABS: GLUCOSE,RANDOM 48 mg/dL (74-106)
[2017-03-14 20:55] LABS: CPK 37 IU/L (26-192); TROPONIN I < 0.02 ng/ml (0.00-0.05)
[2017-03-14] MEDS ORDERED: morphine CARPU-JECT 2 MG/1 ML DISP.SYRIN IVPUSH ONE (21:23)
[2017-03-14] MEDS ORDERED: ONDANSETRON 4 MG/2 ML VIAL IVPUSH ONE (21:23)
[2017-03-14] MEDS ORDERED: morphine CARPU-JECT 2 MG/1 ML DISP.SYRIN ONE (22:25)
[2017-03-14] MEDS ORDERED: ONDANSETRON 4 MG/2 ML VIAL ONE (22:25)
[2017-03-15] MEDS ORDERED: DEXTROSE 5%-0.45% SALINE 1,000 ML IV SCH (02:00)
[2017-03-15] MEDS: morphine CARPU-JECT 2 MG/1 ML DISP.SYRIN IVPUSH PRN ×4 (03:59→21:07)
[2017-03-15] MEDS ORDERED: ALPRAZolam 0.25 MG TABLET PO ONE (04:00)
[2017-03-15 04:46] VITALS: BMI 30.8
[2017-03-15] MEDS: GABAPENTIN 400 MG CAPSULE (FP) PO SCH ×4 (06:25→21:31)
[2017-03-15 08:17] LABS: BASOPHIL 0.4 % (0-2.0); EOSINOPHIL 3.1 % (0-4.5); MCH 31.2 pg (25.7-33.7); MCHC 34.4 g/dl (32.0-36.0); MEAN CELL VOLUME 90.5 fl (80-96); MEAN PLT VOLUME 7.2 fl (7.5-11.1); NEUTROPHILS 64.7 % (42.8-82.8); PLATELET COUNT 197 K/MM3 (134-434); RDW 12.7 % (11.6-15.6)
[2017-03-15 09:17] LABS: ALBUMIN 3.6 g/dl (3.4-5.0); ALK PHOS 86 U/L (45-117); ANION GAP 9 (8-16); BILIRUBIN,TOTAL 0.3 mg/dL (0.2-1.0); CALCIUM 8.2 mg/dL (8.5-10.1); CO2 20 mmol/L (21-32); CREATININE 1.1 mg/dL (0.55-1.02); GLUCOSE,RANDOM 74 mg/dL (74-106); SGOT/AST 5 U/L (15-37); SGPT/ALT 17 U/L (12-78); TOT PROT 6.3 g/dl (6.4-8.2)
[2017-03-15] MEDS: HEPARIN NA (PORCINE) 5,000 UNITS/ML 1ML VIAL SQ SCH ×2 (10:18→21:30)
[2017-03-15] MEDS: ESCITALOPRAM OXALATE 20 MG TABLET (FP) PO SCH (10:18)
[2017-03-15] MEDS: CHOLECALCIFEROL (VITAMIN D3) 400 UNIT TABLET (FP) PO SCH (10:19)
[2017-03-15] MEDS: ALPRAZolam 2 MG TABLET PO SCH ×2 (10:19→21:32)
[2017-03-15] MEDS: CARVEDILOL 6.25 MG TABLET (FP) PO SCH ×2 (10:19→21:33)
[2017-03-15] MEDS: ASPIRIN 81 MG CHEWABLE TABLETS PO SCH (10:19)
--- NOTE | 2017-03-15 11:04 | CONSULT ---
Consult Consult Specialty:: Endocrinology Referred by:: Dr Mercedes Reason for Consultation:: Hypoglycemia - History of Present Illness Chief Complaint: Abd pain History of Present Illness: This is a 52 year old F with h/o DM for many years, intermittently on medication ( On Meformin for few months and r started on Glimepiride by PCP a few months ago as per Pt), CHF, cardiac stent (2010), pacemaker, PR (2011), hyperlipidemia, COPD, kidney stent, kidney stones, stress incontinence, kidney failure, anxiety, anorexia, and depression, who presented to the emergency department with LLQ abd pain for few days. Pt found to have blood sugar in 40s and referred for management. Pt took her antidiabetic mediation yesterday but did not eat much b/o abd pain. CT scan report noted. Has left nonobstructing renal stone. Says she has not had bowel movement for few days. FS at home 110 to 130 in the morning and around 190s in the evening. No hypos at home. Doesn't remember when last A1c was done. - History Source History Provided By: Patient, Medical Record - Past Medical History Cardio/Vascular: Yes: CAD, CHF, HTN, Hyperlipdemia, PR, Other (ICD,S/P PCI/LEVI) Pulmonary: Yes: COPD (CPAP at home), Sleep Apnea (CPAP at home but only uses 3- 4x/week at night) Gastrointestinal: Yes: Constipation, Hemorrhoids Renal/: Yes: Renal Inusuff (past episode of NEYMAR) Psych: Yes: Other (body dysmorphic disorder) Musculoskeletal: Yes: Chronic low back pain Rheumatology: Yes: Fibromyalgia Endocrine: Yes: Diabetes Mellitus - Past Surgical History Past Surgical History: Yes: AICD, Colonoscopy, , Stent - Alcohol/Substance Use Hx Alcohol Use: No History of Substance Use: reports: None - Smoking History Smoking history: Former smoker Have you smoked in the past 12 months: No Aproximately how many cigarettes per day: 7 If you are a former smoker, when did you quit?: 2014 - Social History Usual Living Arrangement: With Spouse (rafiq) ADL: Independent History of Recent Travel: No Home Medications - Allergies Allergies/Adverse Reactions: Allergies Allergy/AdvReac Type Severity Reaction Status Date / Time No Known Allergies Allergy Verified 03/14/17 18:03 - Home Medications Home Medications: Ambulatory Orders Alprazolam [Xanax] 1 mg PO BID 04/15/16 Aspirin [ASA -] 81 mg PO DAILY 04/15/16 Atorvastatin Ca [Lipitor] 40 mg PO HS 04/15/16 Cholecalciferol (Vitamin D3) [Vitamin D -] 400 unit PO DAILY 04/15/16 Escitalopram Oxalate [Lexapro -] 20 mg PO DAILY 04/15/16 Gabapentin 800 mg PO TID 04/15/16 Topiramate 50 mg PO BID 04/15/16 Oxycodone HCl/Acetaminophen [Percocet 5-325 mg Tablet] 1 tab PO Q6H 05/21/16 Zolpidem Tartrate [Ambien] 10 mg PO HS 05/21/16 Lisinopril [Prinivil] 2.5 mg PO DAILY@1200 #30 tablet 05/31/16 Spironolactone [Aldactone -] 25 mg PO HS #30 tablet 05/31/16 Carvedilol [Coreg -] 6.25 mg PO BID #60 tablet 02/02/17 Glimepiride [Amaryl -] 2 mg PO DAILY #30 tablet 02/02/17 Metformin HCl [Glucophage] 1,000 mg PO DAILY #20 tablet 02/02/17 Family Disease History - Family Disease History Family Disease History: Diabetes: Mother (alive), Heart Disease: Grandparent ( paternal grandfather of heart at young age), Father (PR at age 63 ), Mother Review of Systems - Review of Systems Constitutional: reports: Malaise Eyes: reports: No Symptoms HENT: reports: No Symptoms Neck: reports: No Symptoms Cardiovascular: reports: No Symptoms Respiratory: reports: No Symptoms Gastrointestinal: reports: Abdominal Pain Genitourinary: reports: No Symptoms Breasts: reports: No Symptoms Reported Musculoskeletal: reports: No Symptoms Neurological: reports: No Symptoms Endocrine: reports: No Symptoms Physical Exam Vital Signs: Vital Signs Temperature 97.8 F 03/15/17 10:03 Pulse Rate 64 03/15/17 10:03 Respiratory Rate 03/15/17 10:03 Blood Pressure 98/60 03/15/17 10:03 O2 Sat by Pulse Oximetry (%) 99 03/15/17 10:05 Constitutional: Yes: No Distress, Calm Eyes: Yes: Conjunctiva Clear, EOM Intact HENT: Yes: Atraumatic, Normocephalic Neck: Yes: Supple, Trachea Midline Cardiovascular: Yes: Regular Rate and Rhythm Respiratory: Yes: Regular, CTA Bilaterally Gastrointestinal: Yes: Normal Bowel Sounds, Soft, Tenderness (LLQ tenderness, No rebound) Musculoskeletal: Yes: WNL Extremities: Yes: WNL Edema: No Neurological: Yes: Alert, Oriented Labs: CBC, BMP 03/15/17 07:45 03/15/17 07:45 Imaging - Results Cat Scan: Report Reviewed Problem List - Problems (1) Abdominal pain in female Code(s): R10.9 - UNSPECIFIED ABDOMINAL PAIN (2) CHF (congestive heart failure), NYHA class I Code(s): I50.9 - HEART FAILURE, UNSPECIFIED Qualifiers: Congestive heart failure type: systolic Congestive heart failure chronicity: chronic Qualified Code(s): I50.22 - Chronic systolic (congestive ) heart failure (3) Diabetes mellitus Code(s): E11.9 - TYPE 2 DIABETES MELLITUS WITHOUT COMPLICATIONS Qualifiers: Diabetes mellitus type: type 2 Diabetes mellitus complication status: with hyperglycemia Diabetes mellitus longterm insulin use: without continuous churn buttermaker use Qualified Code(s): E11.65 - Type 2 diabetes mellitus with hyperglycemia; Z79.4 - continuous churn buttermaker (current) use of insulin Assessment/Plan AP: LLQ abd pain DM Hypoglycemia CHD NEYMAR: improving, Left non-obstructing renal stone Hypoglycemia probably secondary to decreased food intake while on Glimepiride in setting of NEYMAR Hold oral antidiabetic agents for now Continue IVF Novolog SS coverage Will f/u
--- NOTE | 2017-03-15 11:09 | CON.NEP ---
Consult Consult Specialty:: Nephrology ([place]) Referred by:: Dr. Stanton Reason for Consultation:: NEYMAR - History of Present Illness Chief Complaint: Abd pain History of Present Illness: This is a 52 year old woman with PMhx of DM Type 2, Hypertension, CHF, Hyperlipidemia, Anxiety, Depression, Nephrolithiasis who presented with Abd pain with N/V and found to have acute kidney injury. Pt denies any history of CKD but has has obstrustive kidney stones in the past that has required stenting. + Ibuprofen use at home. No flank pain, dysuria. + N/V but no diarreha. No rash or recent Abx use. No swelling, SOB, chest pain. - History Source History Provided By: Patient Limitations to Obtaining History: No Limitations - Past Medical History Cardio/Vascular: Yes: CAD, CHF, HTN, Hyperlipdemia, [place], Other (ICD,S/P PCI/LEVI) Pulmonary: Yes: COPD (CPAP at home), Sleep Apnea (CPAP at home but only uses 3- 4x/week at night) Gastrointestinal: Yes: Constipation, Hemorrhoids Renal/: Yes: Renal Inusuff (past episode of NEYMAR), Renal Calculi Psych: Yes: Other (body dysmorphic disorder) Musculoskeletal: Yes: Chronic low back pain Rheumatology: Yes: Fibromyalgia Endocrine: Yes: Diabetes Mellitus - Past Surgical History Past Surgical History: Yes: AICD, Colonoscopy, , Stent - Alcohol/Substance Use Hx Alcohol Use: No History of Substance Use: reports: None - Smoking History Smoking history: Former smoker Have you smoked in the past 12 months: No Aproximately how many cigarettes per day: 7 If you are a former smoker, when did you quit?: 2014 - Social History Usual Living Arrangement: With Spouse (rafiq) ADL: Independent History of Recent Travel: No Home Medications - Allergies Allergies/Adverse Reactions: Allergies Allergy/AdvReac Type Severity Reaction Status Date / Time No Known Allergies Allergy Verified 03/14/17 18:03 - Home Medications Home Medications: Ambulatory Orders Alprazolam [Xanax] 1 mg PO BID 04/15/16 Aspirin [ASA -] 81 mg PO DAILY 04/15/16 Atorvastatin Ca [Lipitor] 40 mg PO HS 04/15/16 Cholecalciferol (Vitamin D3) [Vitamin D -] 400 unit PO DAILY 04/15/16 Escitalopram Oxalate [Lexapro -] 20 mg PO DAILY 04/15/16 Gabapentin 800 mg PO TID 04/15/16 Topiramate 50 mg PO BID 04/15/16 Oxycodone HCl/Acetaminophen [Percocet 5-325 mg Tablet] 1 tab PO Q6H 05/21/16 Zolpidem Tartrate [Ambien] 10 mg PO HS 05/21/16 Lisinopril [Prinivil] 2.5 mg PO DAILY@1200 #30 tablet 05/31/16 Spironolactone [Aldactone -] 25 mg PO HS #30 tablet 05/31/16 Carvedilol [Coreg -] 6.25 mg PO BID #60 tablet 02/02/17 Glimepiride [Amaryl -] 2 mg PO DAILY #30 tablet 02/02/17 Metformin HCl [Glucophage] 1,000 mg PO DAILY #20 tablet 02/02/17 Family Disease History - Family Disease History Family Disease History: Diabetes: Mother (alive), Heart Disease: Grandparent ( paternal grandfather of heart at young age), Father ([place] at age 63 ), Mother Review of Systems - Review of Systems Constitutional: reports: Loss of Appetite. denies: Chills, Diaphoresis, Fever, Lethargy Eyes: reports: No Symptoms Neck: reports: No Symptoms Cardiovascular: denies: Chest Pain, Edema, Palpitations, Shortness of Breath Respiratory: denies: Cough, Orthopnea, SOB, SOB on Exertion, Wheezing Gastrointestinal: reports: Abdominal Pain, Nausea, Vomiting. denies: Diarrhea, Vomiting Blood Genitourinary: denies: Discharge, Dysuria, Flank Pain Integumentary: reports: No Symptoms Neurological: reports: No Symptoms Endocrine: reports: No Symptoms Nephrology Consult - Height Height: 5 ft - Weight Weight: 158 lb - BMI Body Mass Index (BMI): 30.8 - Lab Results CBC,BMP: CBC, BMP 03/15/17 07:45 03/15/17 07:45 Anion Gap: Anion Gap Anion Gap 9 (8-16) 03/15/17 07:45 - Imaging Cat Scan: Report Reviewed - Physical Examination Vital Signs: Vital Signs Temperature 97.8 F 03/15/17 10:03 Pulse Rate 64 03/15/17 10:03 Respiratory Rate 17 03/15/17 10:03 Blood Pressure 98/60 03/15/17 10:03 O2 Sat by Pulse Oximetry (%) 99 03/15/17 10:05 Constitutional: Yes: No Distress, Calm Eyes: Yes: Conjunctiva Clear HENT: Yes: Atraumatic, Normocephalic Neck: Yes: Supple Cardiovascular: Yes: Regular Rate and Rhythm, S1, S2. No: Murmur, Rub Respiratory: Yes: Regular, CTA Bilaterally. No: Rales, Rhonchi, Wheezes Gastrointestinal: Yes: Normal Bowel Sounds, Tenderness. No: Hepatomegaly, Palpable Mass Renal/: No: Anuria, Bladder Distention, CVA Tenderness - Left, CVA Tenderness - Right, [place] Present Edema: No Integumentary: Yes: WNL Neurological: Yes: Alert, Oriented Assessment/Plan 52 year old woman with PMhx of DM Type 2, Hypertension, CHF, Hyperlipidemia, Anxiety, Depression, Nephrolithiasis who presented with Abd pain with N/V and found to have acute kidney injury. #Acute Renal Failure (baseline Cr 0.5-0.6) Etiology likely related to hypovolemia +/- renal hypoprofusion in setting of ACEi hold ACEi for now Gentle IVF hydration with isotonic saline Check urine for FeUrea, FeNa, UPCR no need for US (CT showed no [place]) Trend BUN/Cr dose all meds for CrCl less then 30 avoid NSAIDs and IV contrast until renal function returns to baseline #Nephrolithiasis No evidence of obstruction less likely the cause of the abd pain #Abd pain LFTs within normal limits CT w/o evidence of diveticultis but not a contrast study #Hx of Hypertension now with Low BP hold ACEi continue low dose BB for CHF #Hx of CHF Mild LVF reduction with global hypokinesis of LV no evidence of volume overload at this time continue gentle IVF hydration x 24 hours Cardiology follow up holding ACEI Current Medications Acetaminophen (Tylenol -) 325 mg PO Q6H PRN PRN Reason: PAIN Alprazolam (Xanax -) 1 mg PO BID [facility] Last Admin: 03/15/17 10:19 Dose: 1 mg Aspirin (Asa -) 81 mg PO DAILY [facility] Last Admin: 03/15/17 10:19 Dose: 81 mg Atorvastatin Calcium (Lipitor -) 40 mg PO HS [facility] Carvedilol (Coreg -) 6.25 mg PO BID [facility] Last Admin: 03/15/17 10:19 Dose: Not Given Cholecalciferol (Vitamin D3 -) 400 unit PO DAILY [facility] Last Admin: 03/15/17 10:19 Dose: 400 unit Escitalopram Oxalate (Lexapro -) 20 mg PO DAILY [facility] Last Admin: 03/15/17 10:18 Dose: 20 mg Gabapentin (Neurontin -) 800 mg PO TID [facility] Last Admin: 03/15/17 06:25 Dose: 800 mg Heparin Sodium (Porcine) (Heparin -) 5,000 unit SQ BID [facility] Last Admin: 03/15/17 10:18 Dose: 5,000 unit Dextrose/Sodium Chloride (D5-1/2ns -) 1,000 mls @ 75 mls/hr IV ASDIR [facility] Last Admin: 03/15/17 02:49 Dose: 75 mls/hr Morphine Sulfate (Morphine Injection -) 2 mg IVPUSH Q4H PRN PRN Reason: PAIN Last Admin: 03/15/17 10:20 Dose: 2 mg Oxycodone HCl (Roxicodone -) 5 mg PO Q6H PRN PRN Reason: PAIN Topiramate (Topamax -) 50 mg PO BID [facility] Zolpidem Tartrate (Ambien -) 10 mg PO HS PRN
[2017-03-15] MEDS ORDERED: DEXTROSE 5%-NORMAL SALINE 1,000 ML IV SCH (11:15)
[2017-03-15] MEDS: TOPIRAMATE 25 MG TABLET (FP) PO SCH ×2 (11:23→21:32)
[2017-03-15] MEDS ORDERED: LISINOPRIL 5 MG TABLET (FP) PO SCH (12:00)
[2017-03-15] MEDS: INSULIN SLIDING SCALE (NOVOLOG) 1 VIAL SQ SCH ×3 (12:25→20:29)
--- NOTE | 2017-03-15 15:05 | HP ---
Admitting History and Physical - Primary Care Physician PCP: Sandra Barry - Admission Chief Complaint: I'm hurting History of Present Illness: Ms Edouard is a 52 year old female who comes in with abdominal and back pain. She says the pain began on Tuesday. She says it is constant and severe. It is a cramping type of pain, however she says she feels like her "kidneys are falling out" when she moves. It is throughout her abdomen and both sides of her back. She did not have fevers but says she has chills with it. She is constipated and has not had a bowel movement for at least a week. She says she has anorexia with nausea and vomiting. She says every time she eats something it makes her feel sick and she throws up. Her last episode of emesis was yesterday and it looked like undigested food. She denies lightheadedness, dizziness, passing out , chest pain, shortness of breath, diarrhea, difficulty or pain on urination, or swelling. She still complains of pain today and says it is unchanged History Source: Patient Limitations to Obtaining History: No Limitations - Past Medical History Cardiovascular: Yes: CAD, CHF, HTN, Hyperlipdemia, [place], Other (ICD,S/P PCI/LEVI) Pulmonary: Yes: COPD (CPAP at home), Sleep Apnea (CPAP at home but only uses 3- 4x/week at night) Gastrointestinal: Yes: Constipation, Hemorrhoids Renal/: Yes: Renal Inusuff (past episode of NEYMAR) Psych: Yes: Other (body dysmorphic disorder) Musculoskeletal: Yes: Chronic low back pain Rheumatology: Yes: Fibromyalgia Endocrine: Yes: Diabetes Mellitus - Past Surgical History Past Surgical History: Yes: AICD, Colonoscopy, , Stent - Smoking History Smoking history: Former smoker Have you smoked in the past 12 months: No Aproximately how many cigarettes per day: 7 If you are a former smoker, when did you quit?: 2014 - Alcohol/Substance Use Hx Alcohol Use: No History of Substance Use: reports: None - Social History ADL: Independent History of Recent Travel: No Home Medications - Allergies Allergies/Adverse Reactions: Allergies Allergy/AdvReac Type Severity Reaction Status Date / Time No Known Allergies Allergy Verified 03/14/17 18:03 - Home Medications Home Medications: Ambulatory Orders Alprazolam [Xanax] 1 mg PO BID 04/15/16 Aspirin [ASA -] 81 mg PO DAILY 04/15/16 Atorvastatin Ca [Lipitor] 40 mg PO HS 04/15/16 Cholecalciferol (Vitamin D3) [Vitamin D -] 400 unit PO DAILY 04/15/16 Escitalopram Oxalate [Lexapro -] 20 mg PO DAILY 04/15/16 Gabapentin 800 mg PO TID 04/15/16 Topiramate 50 mg PO BID 04/15/16 Oxycodone HCl/Acetaminophen [Percocet 5-325 mg Tablet] 1 tab PO Q6H 05/21/16 Zolpidem Tartrate [Ambien] 10 mg PO HS 05/21/16 Lisinopril [Prinivil] 2.5 mg PO DAILY@1200 #30 tablet 05/31/16 Spironolactone [Aldactone -] 25 mg PO HS #30 tablet 05/31/16 Carvedilol [Coreg -] 6.25 mg PO BID #60 tablet 02/02/17 Glimepiride [Amaryl -] 2 mg PO DAILY #30 tablet 02/02/17 Metformin HCl [Glucophage] 1,000 mg PO DAILY #20 tablet 02/02/17 Family Disease History - Family Disease History Family Disease History: Diabetes: Mother (alive), Heart Disease: Grandparent ( paternal grandfather of heart at young age), Father ([place] at age 63 ), Mother Review of Systems Findings/Remarks: Full review of systems obtained, as per HPI and otherwise negative Physical Examination Vital Signs: Vital Signs Temperature 36.8 C 03/15/17 12:00 Pulse Rate 57 L 03/15/17 12:00 Respiratory Rate 16 03/15/17 12:00 Blood Pressure 84/50 03/15/17 12:00 O2 Sat by Pulse Oximetry (%) 99 03/15/17 10:05 Constitutional: Yes: Well Nourished, No Distress, Calm Eyes: Yes: Conjunctiva Clear, EOM Intact, PERRL HENT: Yes: Atraumatic, Normocephalic Cardiovascular: Yes: Regular Rate and Rhythm. No: Gallop, Murmur, Rub Respiratory: Yes: Regular, CTA Bilaterally. No: Rales, Rhonchi, Wheezes Gastrointestinal: Yes: Normal Bowel Sounds, Soft, Tenderness (diffuse throughout entire abdomen). No: Distention, Tenderness, Rebound Extremities: Yes: WNL Edema: No Labs: CBC, BMP 03/15/17 07:45 03/15/17 07:45 Imaging - Results Cat Scan: Report Reviewed, Image Reviewed (awaiting official read, constipation not noted on prelim read but per my viewing noted stool) Problem List - Problems (1) Abdominal pain in female Assessment/Plan: -suspect this is secondary to constipation as opposed to non-obstructing kidney stone or other pathology -patient with history of chronic narcotic use and resulting constipation -will try to minimize narcotics as suspect is causing both constipation and nausea/vomiting (increased transit time) -monitor for improvement Code(s): R10.9 - UNSPECIFIED ABDOMINAL PAIN (2) Acute kidney injury (nontraumatic) Assessment/Plan: -secondary to dehydration -appreciate nephrology assistance and note reviewed -continue IVF -improving Code(s): N17.9 - ACUTE KIDNEY FAILURE, UNSPECIFIED (3) CAD (coronary artery disease) Assessment/Plan: -quiescent -continue home regimen Code(s): I25.10 - ATHSCL HEART DISEASE OF [place] CORONARY ARTERY W/O ANG PCTRS Qualifiers: Coronary Disease-Associated Artery/Lesion type: [place] artery [place] vs. transplanted heart: [place] heart Associated angina: without angina Qualified Code(s): I25.10 - Atherosclerotic heart disease of [place] coronary artery without angina pectoris (4) CHF (congestive heart failure), NYHA class I Assessment/Plan: -holding aldactone secondary to dehydration and NEYMAR -also hydrating -currently not fluid overloaded or in exacerbation -monitor Code(s): I50.9 - HEART FAILURE, UNSPECIFIED Qualifiers: Congestive heart failure type: systolic Congestive heart failure chronicity: chronic Qualified Code(s): I50.22 - Chronic systolic (congestive ) heart failure (5) Constipation Assessment/Plan: -secondary to narcotic use -suspect cause of abdominal pain and anorexia/nausea/vomiting -add colace and miralax -may benefit from enema -will attempt to limit narcotics as will worsen current situation Code(s): K59.00 - CONSTIPATION, UNSPECIFIED Qualifiers: Constipation type: drug induced constipation Qualified Code(s): K59.03 - Drug induced constipation (6) Diabetes mellitus Assessment/Plan: -with hypoglycemia this admission secondary to decreased po intake -appreciate endocrinology assistance -holding hypoglycemics -continue D5-NS -monitor Code(s): E11.9 - TYPE 2 DIABETES MELLITUS WITHOUT COMPLICATIONS Qualifiers: Diabetes mellitus type: type 2 Diabetes mellitus complication status: with hyperglycemia Diabetes mellitus intermediate frame tender insulin use: without usp use Qualified Code(s): E11.65 - Type 2 diabetes mellitus with hyperglycemia; Z79.4 - shelter (current) use of insulin
--- NOTE | 2017-03-15 17:46 | EKG ---
Test Reason : Blood Pressure : / mmHG Vent. Rate : 065 BPM Atrial Rate : 065 BPM P-R Int : 214 ms QRS Dur : 078 ms QT Int : 400 ms P-R-T Axes : 057 020 093 degrees QTc Int : 416 ms SINUS RHYTHM WITH 1ST DEGREE A-V BLOCK LOW VOLTAGE QRS CANNOT RULE OUT ANTEROSEPTAL INFARCT (CITED ON OR BEFORE 16-OCT-2014) ABNORMAL ECG WHEN COMPARED WITH ECG OF 30-JAN-2017 18:44, ST-T ABNORMALITIES IN PRECORDIAL LEADS REPEAT EKG IF CLINICALLY INDICATED Confirmed by BAY ONEAL MD ([id number]) on 03/15/2017 5:46:06 PM Referred By: Confirmed By:BAY ONEAL MD
[2017-03-15] MEDS: POLYETHYLENE GLYCOL 3350 119 GM BTL PO SCH (21:27)
[2017-03-15] MEDS: ATORVASTATIN CA 40 MG TABLET (FP) PO SCH (21:31)
[2017-03-15] MEDS: DOCUSATE SODIUM 100 MG CAPSULE (FP) PO SCH (21:31)
[2017-03-15] MEDS ORDERED: ZOLPIDEM TARTRATE 5 MG TABLET PO PRN (22:00)
[2017-03-15] MEDS: ACETAMINOPHEN 325 MG TABLET (FP) PO PRN (22:27)
[2017-03-15] MEDS: oxyCODONE HCL 5 MG TABLET PO PRN (22:27)
[2017-03-16] MEDS: INSULIN SLIDING SCALE (NOVOLOG) 1 VIAL SQ SCH ×7 (00:37→22:20)
[2017-03-16] MEDS: morphine CARPU-JECT 2 MG/1 ML DISP.SYRIN IVPUSH PRN (04:17)
[2017-03-16] MEDS: GABAPENTIN 400 MG CAPSULE (FP) PO SCH ×3 (06:15→21:08)
[2017-03-16 07:26] LABS: BASOPHIL 0.4 % (0-2.0); EOSINOPHIL 3.9 % (0-4.5); MCHC 34.4 g/dl (32.0-36.0); MEAN CELL VOLUME 90.2 fl (80-96); MEAN PLT VOLUME 7.3 fl (7.5-11.1); NEUTROPHILS 60.2 % (42.8-82.8); PLATELET COUNT 215 K/MM3 (134-434); RDW 12.9 % (11.6-15.6); WHITE BLOOD COUNT 6.3 K/mm3 (4.0-10.0)
[2017-03-16 08:16] LABS: ALBUMIN 3.7 g/dl (3.4-5.0); ALK PHOS 88 U/L (45-117); ANION GAP 10 (8-16); BILIRUBIN,TOTAL 0.4 mg/dL (0.2-1.0); CALCIUM 8.7 mg/dL (8.5-10.1); CO2 21 mmol/L (21-32); CREATININE 0.8 mg/dL (0.55-1.02); GLUCOSE,RANDOM 116 mg/dL (74-106); MAGNESIUM 1.8 mg/dL (1.8-2.4); PHOSPHOROUS 3.6 mg/dL (2.5-4.9); SGOT/AST 6 U/L (15-37); SGPT/ALT 24 U/L (12-78); TOT PROT 6.5 g/dl (6.4-8.2)
--- NOTE | 2017-03-16 08:59 | PN ---
Progress Note (short form) - Note Progress Note: Blood sugar improving No hypos poor apetite Did not move bowels yet Vital Signs Period Temp Pulse Resp BP Sys/Riley Pulse Ox Last 24 Hr 97.6 F-98.4 F 52-69 16-18 84-113/50-62 99-99 PE: AOx3 Neck: Supple HEENT: PERRL, EOMI Lungs: CTA CVS: S1S2 Abd: LLQ tenderness, BS present EXt: No edema Neuro: No focal deficit CMP Sodium 143 mmol/L (136-145) 03/16/17 06:15 Potassium 4.3 mmol/L (3.5-5.1) 03/16/17 06:15 Chloride 112 mmol/L (98-107) H 03/16/17 06:15 Carbon Dioxide 21 mmol/L (21-32) 03/16/17 06:15 Anion Gap 10 (8-16) 03/16/17 06:15 BUN 15 mg/dL (7-18) 03/16/17 06:15 Creatinine 0.8 mg/dL (0.55-1.02) D 03/16/17 06:15 Creat Clearance w eGFR > 60 (>60) 03/16/17 06:15 POC Glucometer 123 UNITS (()) 03/16/17 08:06 Random Glucose 116 mg/dL (74-106) H D 03/16/17 06:15 Lactic Acid 1.1 mmol/L (0.4-2.0) 03/14/17 19:30 Calcium 8.7 mg/dL (8.5-10.1) 03/16/17 06:15 Phosphorus 3.6 mg/dL (2.5-4.9) 03/16/17 06:15 Magnesium 1.8 mg/dL (1.8-2.4) 03/16/17 06:15 Total Bilirubin 0.4 mg/dL (0.2-1.0) D 03/16/17 06:15 AST 6 U/L (15-37) L 03/16/17 06:15 ALT 24 U/L (12-78) D 03/16/17 06:15 Alkaline Phosphatase 88 U/L (45-117) 03/16/17 06:15 Creatine Kinase 37 IU/L (26-192) 03/14/17 19:30 Troponin I < 0.02 ng/ml (0.00-0.05) 03/14/17 19:30 Total Protein 6.5 g/dl (6.4-8.2) 03/16/17 06:15 Albumin 3.7 g/dl (3.4-5.0) 03/16/17 06:15 Lipase 216 U/L (73-393) 03/14/17 19:30 Current Medications Generic Name Dose Route Start Last Admin Trade Name Freq PRN Reason Stop Dose Admin Acetaminophen 325 mg 03/15/17 05:01 03/15/17 22:27 Tylenol - PO 325 mg Q6H PRN Administration PAIN Alprazolam 1 mg 03/15/17 10:00 03/15/17 21:32 Xanax - PO 1 mg BID GABI Administration Aspirin 81 mg 03/15/17 10:00 03/15/17 10:19 Asa - PO 81 mg DAILY GABI Administration Atorvastatin Calcium 40 mg 03/15/17 22:00 03/15/17 21:31 Lipitor - PO 40 mg HS GABI Administration Carvedilol 6.25 mg 03/15/17 10:00 03/15/17 21:33 Coreg - PO 6.25 mg BID GABI Administration Cholecalciferol 400 unit 03/15/17 10:00 03/15/17 10:19 Vitamin D3 - PO 400 unit DAILY GABI Administration Docusate Sodium 100 mg 03/15/17 22:00 03/15/17 21:31 Colace - PO 100 mg BID GABI Administration Escitalopram Oxalate 20 mg 03/15/17 10:00 03/15/17 10:18 Lexapro - PO 20 mg DAILY GABI Administration Gabapentin 800 mg 03/15/17 06:00 03/16/17 06:15 Neurontin - PO 800 mg TID GABI Administration Heparin Sodium (Porcine) 5,000 unit 03/15/17 10:00 03/15/17 21:30 Heparin - SQ 5,000 unit BID GABI Administration Insulin Aspart 1 vial 03/15/17 12:00 03/16/17 08:06 Novolog Vial Sliding Scale - SQ Not Given Q4H [facility] Protocol Morphine Sulfate 2 mg 03/15/17 01:54 03/16/17 04:17 Morphine Injection - IVPUSH 2 mg Q4H PRN Administration PAIN Oxycodone HCl 5 mg 03/15/17 05:01 03/15/17 22:27 Roxicodone - PO 5 mg Q6H PRN Administration PAIN Polyethylene Glycol 17 gm 03/15/17 22:00 03/15/17 21:27 Miralax (For Daily Use) - PO 17 grams BID GABI Administration Topiramate 50 mg 03/15/17 10:00 03/15/17 21:32 Topamax - PO 50 mg BID GABI Administration Zolpidem Tartrate 10 mg 03/15/17 22:00 Ambien - PO HS PRN AP: DM Hyoglycemia Contstipation Abd Pain Renal stone NEYMAR; Creatinine normal today Monitor blood sugar Novolog SS coverage Will f/u Problem List - Problems (1) Abdominal pain in female Code(s): R10.9 - UNSPECIFIED ABDOMINAL PAIN (2) CHF (congestive heart failure), NYHA class I Code(s): I50.9 - HEART FAILURE, UNSPECIFIED Qualifiers: Congestive heart failure type: systolic Congestive heart failure chronicity: chronic Qualified Code(s): I50.22 - Chronic systolic (congestive ) heart failure (3) Diabetes mellitus Code(s): E11.9 - TYPE 2 DIABETES MELLITUS WITHOUT COMPLICATIONS Qualifiers: Diabetes mellitus type: type 2 Diabetes mellitus complication status: with hyperglycemia Diabetes mellitus superintendent container terminal insulin use: without group home use Qualified Code(s): E11.65 - Type 2 diabetes mellitus with hyperglycemia; 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
[2017-03-16] MEDS ORDERED: morphine CARPU-JECT 2 MG/1 ML DISP.SYRIN IVPUSH PRN (10:17)
[2017-03-16] MEDS: CHOLECALCIFEROL (VITAMIN D3) 400 UNIT TABLET (FP) PO SCH (10:20)
[2017-03-16] MEDS: CARVEDILOL 6.25 MG TABLET (FP) PO SCH ×2 (10:21→21:15)
[2017-03-16] MEDS: ALPRAZolam 2 MG TABLET PO SCH ×2 (10:21→21:09)
[2017-03-16] MEDS: HEPARIN NA (PORCINE) 5,000 UNITS/ML 1ML VIAL SQ SCH ×2 (10:21→21:40)
[2017-03-16] MEDS: ASPIRIN 81 MG CHEWABLE TABLETS PO SCH (10:21)
[2017-03-16] MEDS: ESCITALOPRAM OXALATE 20 MG TABLET (FP) PO SCH (10:21)
[2017-03-16] MEDS: TOPIRAMATE 25 MG TABLET (FP) PO SCH ×2 (10:21→21:08)
[2017-03-16] MEDS: POLYETHYLENE GLYCOL 3350 119 GM BTL PO SCH (10:22)
[2017-03-16] MEDS: DOCUSATE SODIUM 100 MG CAPSULE (FP) PO SCH (10:22)
--- NOTE | 2017-03-16 11:20 | PN ---
Progress Note, Physician Chief Complaint: Ms Edouard complains of burning on urination and kidney pain. Still with nausea and anorexia. Denies cp or sob. - Current Medication List Current Medications: Active Medications Acetaminophen (Tylenol -) 325 mg PO Q6H PRN PRN Reason: PAIN Last Admin: 03/15/17 22:27 Dose: 325 mg Alprazolam (Xanax -) 1 mg PO BID [facility] Last Admin: 03/16/17 10:21 Dose: 1 mg Aspirin (Asa -) 81 mg PO DAILY [facility] Last Admin: 03/16/17 10:21 Dose: 81 mg Atorvastatin Calcium (Lipitor -) 40 mg PO HS [facility] Last Admin: 03/15/17 21:31 Dose: 40 mg Carvedilol (Coreg -) 6.25 mg PO BID [facility] Last Admin: 03/16/17 10:21 Dose: 6.25 mg Cholecalciferol (Vitamin D3 -) 400 unit PO DAILY [facility] Last Admin: 03/16/17 10:20 Dose: 400 unit Escitalopram Oxalate (Lexapro -) 20 mg PO DAILY [facility] Last Admin: 03/16/17 10:21 Dose: 20 mg Gabapentin (Neurontin -) 800 mg PO TID [facility] Last Admin: 03/16/17 06:15 Dose: 800 mg Heparin Sodium (Porcine) (Heparin -) 5,000 unit SQ BID [facility] Last Admin: 03/16/17 10:21 Dose: 5,000 unit Insulin Aspart (Novolog Vial Sliding Scale -) 1 vial SQ Q4H [facility] PRN Reason: Protocol Last Admin: 03/16/17 08:06 Dose: Not Given Methylnaltrexone [place] (Relistor -) 12 mg SQ DAILY [facility] Morphine Sulfate (Morphine Injection -) 2 mg IVPUSH Q6H PRN PRN Reason: PAIN Oxycodone HCl (Roxicodone -) 5 mg PO Q6H PRN PRN Reason: PAIN Last Admin: 03/15/17 22:27 Dose: 5 mg Topiramate (Topamax -) 50 mg PO BID [facility] Last Admin: 03/16/17 10:21 Dose: 50 mg Zolpidem Tartrate (Ambien -) 10 mg PO HS PRN - Objective Vital Signs: Vital Signs Temperature 36.9 C 03/16/17 06:00 Pulse Rate 52 L 03/16/17 06:00 Respiratory Rate 18 03/16/17 06:00 Blood Pressure 98/52 03/16/17 06:00 O2 Sat by Pulse Oximetry (%) 99 03/15/17 21:00 Constitutional: Yes: Well Nourished, No Distress, Calm Cardiovascular: Yes: Regular Rate and Rhythm. No: Gallop, Murmur, Rub Respiratory: Yes: Regular, CTA Bilaterally. No: Rales, Rhonchi, Wheezes Gastrointestinal: Yes: Normal Bowel Sounds, Soft. No: Distention, Tenderness Extremities: Yes: WNL Edema: No Labs: CBC, BMP 03/16/17 06:15 03/16/17 06:15 INR, PTT INR 1.07 (0.82-1.09) 03/14/17 18:41 Problem List - Problems (1) Abdominal pain in female Code(s): R10.9 - UNSPECIFIED ABDOMINAL PAIN (2) Acute kidney injury (nontraumatic) Code(s): N17.9 - ACUTE KIDNEY FAILURE, UNSPECIFIED (3) CAD (coronary artery disease) Code(s): I25.10 - ATHSCL HEART DISEASE OF [place] CORONARY ARTERY W/O ANG PCTRS Qualifiers: Coronary Disease-Associated Artery/Lesion type: [place] artery [place] vs. transplanted heart: [place] heart Associated angina: without angina Qualified Code(s): I25.10 - Atherosclerotic heart disease of [place] coronary artery without angina pectoris (4) CHF (congestive heart failure), NYHA class I Code(s): I50.9 - HEART FAILURE, UNSPECIFIED Qualifiers: Congestive heart failure type: systolic Congestive heart failure chronicity: chronic Qualified Code(s): I50.22 - Chronic systolic (congestive ) heart failure (5) Constipation Code(s): K59.00 - CONSTIPATION, UNSPECIFIED Qualifiers: Constipation type: drug induced constipation Qualified Code(s): K59.03 - Drug induced constipation (6) Diabetes mellitus Code(s): E11.9 - TYPE 2 DIABETES MELLITUS WITHOUT COMPLICATIONS Qualifiers: Diabetes mellitus type: type 2 Diabetes mellitus complication status: with hyperglycemia Diabetes mellitus terminal gauger insulin use: without fdc use Qualified Code(s): E11.65 - Type 2 diabetes mellitus with hyperglycemia; Z79.4 - [facility] (current) use of insulin (7) Dysuria Code(s): R30.0 - DYSURIA Assessment/Plan (1) Dysuria Assessment/Plan: -patient now states that she has pain on urination and kidney pain -will order urinalysis and urine culture, not sent in ED -hold on antibiotics until urinalysis results Code(s): R10.9 - UNSPECIFIED ABDOMINAL PAIN (2) Acute kidney injury (nontraumatic) Assessment/Plan: -appreciate nephrology assistance -now at baseline -IVF stopped Code(s): N17.9 - ACUTE KIDNEY FAILURE, UNSPECIFIED (3) CAD (coronary artery disease) Assessment/Plan: -quiescent -continue home regimen Code(s): I25.10 - ATHSCL HEART DISEASE OF [place] CORONARY ARTERY W/O ANG PCTRS Qualifiers: Coronary Disease-Associated Artery/Lesion type: [place] artery [place] vs. transplanted heart: [place] heart Associated angina: without angina Qualified Code(s): I25.10 - Atherosclerotic heart disease of [place] coronary artery without angina pectoris (4) CHF (congestive heart failure), NYHA class I Assessment/Plan: -normally on lasix and aldactone -not in exacerbation -holding both currently -would like to see patient have increased po intake before restarting Code(s): I50.9 - HEART FAILURE, UNSPECIFIED Qualifiers: Congestive heart failure type: systolic Congestive heart failure chronicity: chronic Qualified Code(s): I50.22 - Chronic systolic (congestive ) heart failure (5) Constipation Assessment/Plan: -secondary to narcotic use -suspect cause of abdominal pain and anorexia/nausea/vomiting -change colace/miralax to relistor -monitor for bowel movement Code(s): K59.00 - CONSTIPATION, UNSPECIFIED Qualifiers: Constipation type: drug induced constipation Qualified Code(s): K59.03 - Drug induced constipation (6) Diabetes mellitus Assessment/Plan: -hypoglycemia resolved -appreciate endocrinology assistance Code(s): E11.9 - TYPE 2 DIABETES MELLITUS WITHOUT COMPLICATIONS Qualifiers: Diabetes mellitus type: type 2 Diabetes mellitus complication status: with hyperglycemia Diabetes mellitus terminal gauger insulin use: without terminal gauger use Qualified Code(s): E11.65 - Type 2 diabetes mellitus with hyperglycemia; 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
[2017-03-16] MEDS: Methylnaltrexone Bromide 12 MG/0.6 ML KIT SQ SCH (12:06)
[2017-03-16 13:31] LABS: URINE APPEARANCE SLCLOUDY; URINE BILIRUBIN NEGATIVE (NEGATIVE); URINE BLOOD NEGATIVE (NEGATIVE); URINE COLOR STRAW; URINE GLUCOSE (UA) NEGATIVE (NEGATIVE); URINE KETONE NEGATIVE (NEGATIVE); URINE LEUK ESTERASE NEGATIVE (NEGATIVE); URINE NITRITE NEGATIVE (NEGATIVE); URINE PROTEIN NEGATIVE (NEGATIVE); URINE UROBILINOGEN NEGATIVE mg/dL (0.2-1.0)
[2017-03-16 13:50] LABS: URINE CREATININE 38.9 mg/dL (20-320)
--- NOTE | 2017-03-16 14:47 | PN ---
Progress Note (short form) - Note Progress Note: Renal follow up for NEYMAR Pt seen and examined at the bedside awake and alert reports contined abd discomfort and pain in kidneys when urinating no sob, chest pain has intermittent nausea no flank pain Vital Signs Temperature 98 F 03/16/17 14:11 Pulse Rate 57 L 03/16/17 14:11 Respiratory Rate 18 03/16/17 14:11 Blood Pressure 92/58 03/16/17 14:11 O2 Sat by Pulse Oximetry (%) 99 03/15/17 21:00 Intake & Output 03/13/17 03/14/17 03/15/17 03/16/17 23:59 23:59 23:59 23:59 Intake Total 1525 Balance 1525 Weight 150 lb 158 lb Gen: NAD, awake and alert CVS: RRR Lungs: CTA Abd: soft NT/ND Ext: No edema CBC, BMP 03/16/17 06:15 03/16/17 06:15 Current Medications Acetaminophen (Tylenol -) 325 mg PO Q6H PRN PRN Reason: PAIN Last Admin: 03/15/17 22:27 Dose: 325 mg Alprazolam (Xanax -) 1 mg PO BID [facility] Last Admin: 03/16/17 10:21 Dose: 1 mg Aspirin (Asa -) 81 mg PO DAILY [facility] Last Admin: 03/16/17 10:21 Dose: 81 mg Atorvastatin Calcium (Lipitor -) 40 mg PO HS [facility] Last Admin: 03/15/17 21:31 Dose: 40 mg Carvedilol (Coreg -) 6.25 mg PO BID [facility] Last Admin: 03/16/17 10:21 Dose: 6.25 mg Cholecalciferol (Vitamin D3 -) 400 unit PO DAILY [facility] Last Admin: 03/16/17 10:20 Dose: 400 unit Escitalopram Oxalate (Lexapro -) 20 mg PO DAILY [facility] Last Admin: 03/16/17 10:21 Dose: 20 mg Gabapentin (Neurontin -) 800 mg PO TID [facility] Last Admin: 03/16/17 14:11 Dose: 800 mg Heparin Sodium (Porcine) (Heparin -) 5,000 unit SQ BID [facility] Last Admin: 03/16/17 10:21 Dose: 5,000 unit Insulin Aspart (Novolog Vial Sliding Scale -) 1 vial SQ Q4H [facility] PRN Reason: Protocol Last Admin: 03/16/17 12:04 Dose: Not Given Methylnaltrexone [place] (Relistor -) 12 mg SQ DAILY [facility] Last Admin: 03/16/17 12:06 Dose: 12 mg Morphine Sulfate (Morphine Injection -) 2 mg IVPUSH Q6H PRN PRN Reason: PAIN Last Admin: 03/16/17 12:06 Dose: 2 mg Oxycodone HCl (Roxicodone -) 5 mg PO Q6H PRN PRN Reason: PAIN Last Admin: 03/15/17 22:27 Dose: 5 mg Topiramate (Topamax -) 50 mg PO BID [facility] Last Admin: 03/16/17 10:21 Dose: 50 mg Zolpidem Tartrate (Ambien -) 10 mg PO HS PRN A/P 52 year old woman with PMhx of DM Type 2, Hypertension, CHF, Hyperlipidemia, Anxiety, Depression, Nephrolithiasis who presented with Abd pain with N/V and found to have acute kidney injury. #Acute Renal Failure (baseline Cr 0.5-0.6) Etiology likely related to hypovolemia +/- renal hypoprofusion in setting of ACEi Renal function now improved toward baseline off IVF now can restart ACEi in AM if renal function remains stable Trend BUN/Cr avoid NSAIDs at this time Check Urine studies for FeNa, UA, UPCR #Nephrolithiasis No evidence of obstruction less likely the cause of the abd pain #Abd pain LFTs within normal limits CT w/o evidence of diveticultis but not a contrast study to check UA, Urine Cx today #Hx of Hypertension now with Low BP hold ACEi continue low dose BB for CHF #Hx of CHF Mild LVF reduction with global hypokinesis of LV no evidence of volume overload at this time continue gentle IVF hydration x 24 hours Cardiology follow up holding ACEI and aldactone for now Thank you Med Chris DO
[2017-03-16] MEDS: oxyCODONE HCL 5 MG TABLET PO PRN (20:30)
[2017-03-16] MEDS: ACETAMINOPHEN 325 MG TABLET (FP) PO PRN (20:31)
[2017-03-16] MEDS: ATORVASTATIN CA 40 MG TABLET (FP) PO SCH (21:08)
[2017-03-17] MEDS: morphine CARPU-JECT 2 MG/1 ML DISP.SYRIN IVPUSH PRN ×4 (00:42→22:00)
[2017-03-17] MEDS: GABAPENTIN 400 MG CAPSULE (FP) PO SCH ×3 (05:55→21:24)
[2017-03-17] MEDS: INSULIN SLIDING SCALE (NOVOLOG) 1 VIAL SQ SCH ×4 (06:01→21:47)
[2017-03-17 08:01] LABS: BASOPHIL 0.5 % (0-2.0); EOSINOPHIL 3.9 % (0-4.5); MCH 30.7 pg (25.7-33.7); MCHC 34.2 g/dl (32.0-36.0); NEUTROPHILS 60.6 % (42.8-82.8); PLATELET COUNT 241 K/MM3 (134-434); RDW 13.1 % (11.6-15.6); WHITE BLOOD COUNT 8.1 K/mm3 (4.0-10.0)
[2017-03-17 08:50] LABS: ANION GAP 11 (8-16); CALCIUM 9.4 mg/dL (8.5-10.1); CO2 22 mmol/L (21-32); CREATININE 0.8 mg/dL (0.55-1.02); GLUCOSE,RANDOM 87 mg/dL (74-106); MAGNESIUM 1.6 mg/dL (1.8-2.4); PHOSPHOROUS 4.4 mg/dL (2.5-4.9)
[2017-03-17] MEDS: CHOLECALCIFEROL (VITAMIN D3) 400 UNIT TABLET (FP) PO SCH (10:11)
[2017-03-17] MEDS: ASPIRIN 81 MG CHEWABLE TABLETS PO SCH (10:11)
[2017-03-17] MEDS: ALPRAZolam 2 MG TABLET PO SCH ×2 (10:11→21:24)
[2017-03-17] MEDS: TOPIRAMATE 25 MG TABLET (FP) PO SCH ×2 (10:11→21:23)
[2017-03-17] MEDS: ESCITALOPRAM OXALATE 20 MG TABLET (FP) PO SCH (10:11)
[2017-03-17] MEDS: HEPARIN NA (PORCINE) 5,000 UNITS/ML 1ML VIAL SQ SCH ×2 (10:12→21:23)
[2017-03-17] MEDS: LISINOPRIL 5 MG TABLET (FP) PO SCH (12:08)
[2017-03-17] MEDS: Methylnaltrexone Bromide 12 MG/0.6 ML KIT SQ SCH (13:41)
--- NOTE | 2017-03-17 15:13 | PN ---
Progress Note, Physician Chief Complaint: Ms Edouard complains of diffuse abdominal pain. No cp or sob. - Current Medication List Current Medications: Active Medications Acetaminophen (Tylenol -) 325 mg PO Q6H PRN PRN Reason: PAIN Last Admin: 03/16/17 20:31 Dose: 325 mg Alprazolam (Xanax -) 1 mg PO BID [facility] Last Admin: 03/17/17 10:11 Dose: 1 mg Aspirin (Asa -) 81 mg PO DAILY [facility] Last Admin: 03/17/17 10:11 Dose: 81 mg Atorvastatin Calcium (Lipitor -) 40 mg PO HS [facility] Last Admin: 03/16/17 21:08 Dose: 40 mg Cholecalciferol (Vitamin D3 -) 400 unit PO DAILY [facility] Last Admin: 03/17/17 10:11 Dose: 400 unit Escitalopram Oxalate (Lexapro -) 20 mg PO DAILY [facility] Last Admin: 03/17/17 10:11 Dose: 20 mg Gabapentin (Neurontin -) 800 mg PO TID [facility] Last Admin: 03/17/17 14:47 Dose: 800 mg Heparin Sodium (Porcine) (Heparin -) 5,000 unit SQ BID [facility] Last Admin: 03/17/17 10:12 Dose: 5,000 unit Insulin Aspart (Novolog Vial Sliding Scale -) 1 vial SQ ACHS [facility] PRN Reason: Protocol Last Admin: 03/17/17 11:44 Dose: Not Given Lisinopril (Prinivil) 2.5 mg PO DAILY [facility] Last Admin: 03/17/17 12:08 Dose: Not Given Methylnaltrexone [place] (Relistor -) 12 mg SQ DAILY [facility] Last Admin: 03/17/17 13:41 Dose: 12 mg Morphine Sulfate (Morphine Injection -) 1 mg IVPUSH Q6H PRN PRN Reason: PAIN Last Admin: 03/17/17 13:38 Dose: 1 mg Oxycodone HCl (Roxicodone -) 5 mg PO Q6H PRN PRN Reason: PAIN Last Admin: 03/16/17 20:30 Dose: 5 mg Topiramate (Topamax -) 50 mg PO BID [facility] Last Admin: 03/17/17 10:11 Dose: 50 mg Zolpidem Tartrate (Ambien -) 10 mg PO HS PRN - Objective Vital Signs: Vital Signs Temperature 36.7 C 03/17/17 14:54 Pulse Rate 60 03/17/17 14:54 Respiratory Rate 20 03/17/17 14:54 Blood Pressure 99/69 03/17/17 14:54 O2 Sat by Pulse Oximetry (%) 97 03/16/17 21:00 Constitutional: Yes: Well Nourished, No Distress, Calm Cardiovascular: Yes: Regular Rate and Rhythm. No: Gallop, Murmur, Rub Respiratory: Yes: Regular, CTA Bilaterally. No: Rales, Rhonchi, Wheezes Gastrointestinal: Yes: Normal Bowel Sounds, Soft, Tenderness. No: Distention, Tenderness, Rebound Extremities: Yes: WNL Edema: No Labs: CBC, BMP 03/17/17 07:00 03/17/17 07:00 INR, PTT INR 1.07 (0.82-1.09) 03/14/17 18:41 Problem List - Problems (1) Abdominal pain in female Code(s): R10.9 - UNSPECIFIED ABDOMINAL PAIN (2) Acute kidney injury (nontraumatic) Code(s): N17.9 - ACUTE KIDNEY FAILURE, UNSPECIFIED (3) CAD (coronary artery disease) Code(s): I25.10 - ATHSCL HEART DISEASE OF [place] CORONARY ARTERY W/O ANG PCTRS Qualifiers: Coronary Disease-Associated Artery/Lesion type: [place] artery [place] vs. transplanted heart: [place] heart Associated angina: without angina Qualified Code(s): I25.10 - Atherosclerotic heart disease of [place] coronary artery without angina pectoris (4) CHF (congestive heart failure), NYHA class I Code(s): I50.9 - HEART FAILURE, UNSPECIFIED Qualifiers: Congestive heart failure type: systolic Congestive heart failure chronicity: chronic Qualified Code(s): I50.22 - Chronic systolic (congestive ) heart failure (5) Constipation Code(s): K59.00 - CONSTIPATION, UNSPECIFIED Qualifiers: Constipation type: drug induced constipation Qualified Code(s): K59.03 - Drug induced constipation (6) Diabetes mellitus Code(s): E11.9 - TYPE 2 DIABETES MELLITUS WITHOUT COMPLICATIONS Qualifiers: Diabetes mellitus type: type 2 Diabetes mellitus complication status: with hyperglycemia Diabetes mellitus [facility] insulin use: without communications program manager use Qualified Code(s): E11.65 - Type 2 diabetes mellitus with hyperglycemia; Z79.4 - assisted (current) use of insulin (7) Dysuria Code(s): R30.0 - DYSURIA Assessment/Plan (1) Dysuria Assessment/Plan: -urinalysis negative -d/w nephrology, repeat renal ultrasound Code(s): R10.9 - UNSPECIFIED ABDOMINAL PAIN (2) Acute kidney injury (nontraumatic) Assessment/Plan: -appreciate nephrology assistance -now at baseline -IVF stopped Code(s): N17.9 - ACUTE KIDNEY FAILURE, UNSPECIFIED (3) CAD (coronary artery disease) Assessment/Plan: -quiescent -continue home regimen Code(s): I25.10 - ATHSCL HEART DISEASE OF [place] CORONARY ARTERY W/O ANG PCTRS Qualifiers: Coronary Disease-Associated Artery/Lesion type: [place] artery [place] vs. transplanted heart: [place] heart Associated angina: without angina Qualified Code(s): I25.10 - Atherosclerotic heart disease of [place] coronary artery without angina pectoris (4) CHF (congestive heart failure), NYHA class I Assessment/Plan: -normally on lasix and aldactone -not in exacerbation -holding both currently -would like to see patient have increased po intake before restarting Code(s): I50.9 - HEART FAILURE, UNSPECIFIED Qualifiers: Congestive heart failure type: systolic Congestive heart failure chronicity: chronic Qualified Code(s): I50.22 - Chronic systolic (congestive ) heart failure (5) Constipation Assessment/Plan: -no bowel movement as of yet -continue relistor day 2 -monitor, may need to restart stool softeners Code(s): K59.00 - CONSTIPATION, UNSPECIFIED Qualifiers: Constipation type: drug induced constipation Qualified Code(s): K59.03 - Drug induced constipation (6) Diabetes mellitus Assessment/Plan: -endocrinology Code(s): E11.9 - TYPE 2 DIABETES MELLITUS WITHOUT COMPLICATIONS Qualifiers: Diabetes mellitus type: type 2 Diabetes mellitus complication status: with hyperglycemia Diabetes mellitus [facility] insulin use: without [facility] use Qualified Code(s): E11.65 - Type 2 diabetes mellitus with hyperglycemia; Z79.4 - assisted (current) use of insulin
[2017-03-17] MEDS ORDERED: MAGNESIUM SULF 50% (8.12 MEQ/2 ML-1 GM VIAL) IVPB ONE (15:27)
--- NOTE | 2017-03-17 15:36 | PN ---
Progress Note (short form) - Note Progress Note: Renal follow up for NEYMAR Pt seen and examined at the bedside continues to have complaints of back/flank pain and dysuria no Chest pain, sob, N/V/D no eating well off IVF Vital Signs Temperature 98.1 F 03/17/17 14:54 Pulse Rate 60 03/17/17 14:54 Respiratory Rate 20 03/17/17 14:54 Blood Pressure 99/69 03/17/17 14:54 O2 Sat by Pulse Oximetry (%) 97 03/17/17 11:00 Intake & Output 03/14/17 03/15/17 03/16/17 03/17/17 23:59 23:59 23:59 23:59 Intake Total 1525 200 Balance 1525 200 Weight 150 lb 158 lb Gen: NAD, awake and alert CVS: RRR Lungs: CTA Abd: soft NT/ND Ext: No edema CBC, BMP 03/17/17 07:00 03/17/17 07:00 Laboratory Tests 03/17/17 07:00 Calcium 9.4 Phosphorus 4.4 D Magnesium 1.6 L Current Medications Acetaminophen (Tylenol -) 325 mg PO Q6H PRN PRN Reason: PAIN Last Admin: 03/16/17 20:31 Dose: 325 mg Alprazolam (Xanax -) 1 mg PO BID [facility] Last Admin: 03/17/17 10:11 Dose: 1 mg Aspirin (Asa -) 81 mg PO DAILY [facility] Last Admin: 03/17/17 10:11 Dose: 81 mg Atorvastatin [place] (Lipitor -) 40 mg PO HS [facility] Last Admin: 03/16/17 21:08 Dose: 40 mg Cholecalciferol (Vitamin D3 -) 400 unit PO DAILY [facility] Last Admin: 03/17/17 10:11 Dose: 400 unit Escitalopram Oxalate (Lexapro -) 20 mg PO DAILY [facility] Last Admin: 03/17/17 10:11 Dose: 20 mg Gabapentin (Neurontin -) 800 mg PO TID [facility] Last Admin: 03/17/17 14:47 Dose: 800 mg Heparin Sodium (Porcine) (Heparin -) 5,000 unit SQ BID [facility] Last Admin: 03/17/17 10:12 Dose: 5,000 unit Insulin Aspart (Novolog Vial Sliding Scale -) 1 vial SQ ACHS [facility] PRN Reason: Protocol Last Admin: 03/17/17 11:44 Dose: Not Given Lisinopril (Prinivil) 2.5 mg PO DAILY [facility] Last Admin: 03/17/17 12:08 Dose: Not Given Methylnaltrexone [place] (Relistor -) 12 mg SQ DAILY [facility] Last Admin: 03/17/17 13:41 Dose: 12 mg Morphine Sulfate (Morphine Injection -) 1 mg IVPUSH Q6H PRN PRN Reason: PAIN Last Admin: 03/17/17 13:38 Dose: 1 mg Oxycodone HCl (Roxicodone -) 5 mg PO Q6H PRN PRN Reason: PAIN Last Admin: 03/16/17 20:30 Dose: 5 mg Topiramate (Topamax -) 50 mg PO BID [facility] Last Admin: 03/17/17 10:11 Dose: 50 mg Zolpidem Tartrate (Ambien -) 10 mg PO HS PRN A/P 52 year old woman with PMhx of DM Type 2, Hypertension, CHF, Hyperlipidemia, Anxiety, Depression, Nephrolithiasis who presented with Abd pain with N/V and found to have acute kidney injury. #Acute Renal Failure (baseline Cr 0.5-0.6) Etiology likely related to hypovolemia +/- renal hypoprofusion in setting of ACEi Renal function now at baseline pt continues to have flank pain will hold off starting ACEi for now given low/marginal bP Trend BUN/cr and electrolytes #Nephrolithiasis pt continue to report flank pain No evidence of obstruction on CT scan will repeat renal US to r/o hydro or obstructing stone #Abd pain LFTs within normal limits CT w/o evidence of diveticultis but not a contrast study UA negative, cutlure pending #Hx of Hypertension now with Low BP hold ACEi continue low dose BB for CHF #Hx of CHF Mild LVF reduction with global hypokinesis of LV no evidence of volume overload at this time continue gentle IVF hydration x 24 hours Cardiology follow up holding ACEI and aldactone for now Thank you Med Chris DO
--- NOTE | 2017-03-17 16:39 | PN ---
Progress Note (short form) - Note Progress Note: Blood sugar stabel No hypos poor apetite Did not move bowels yet Still with abd pain Vital Signs Period Temp Pulse Resp BP Sys/Riley Pulse Ox Last 24 Hr 97.7 F-98.3 F 57-75 18-20 99-121/40-70 97-97 PE: AOx3 Neck: Supple HEENT: PERRL, EOMI Lungs: CTA CVS: S1S2 Abd: LLQ tenderness, BS present EXt: No edema Neuro: No focal deficit CMP Sodium 140 mmol/L (136-145) 03/17/17 07:00 Potassium 4.3 mmol/L (3.5-5.1) 03/17/17 07:00 Chloride 107 mmol/L (98-107) 03/17/17 07:00 Carbon Dioxide 22 mmol/L (21-32) 03/17/17 07:00 Anion Gap 11 (8-16) 03/17/17 07:00 BUN 17 mg/dL (7-18) 03/17/17 07:00 Creatinine 0.8 mg/dL (0.55-1.02) 03/17/17 07:00 Creat Clearance w eGFR > 60 (>60) 03/16/17 06:15 POC Glucometer 105 UNITS (()) 03/17/17 11:43 Random Glucose 87 mg/dL (74-106) D 03/17/17 07:00 Hemoglobin A1c % 7.9 % (4.8-6.0) H D 03/16/17 06:15 Lactic Acid 1.1 mmol/L (0.4-2.0) 03/14/17 19:30 Calcium 9.4 mg/dL (8.5-10.1) 03/17/17 07:00 Phosphorus 4.4 mg/dL (2.5-4.9) D 03/17/17 07:00 Magnesium 1.6 mg/dL (1.8-2.4) L 03/17/17 07:00 Total Bilirubin 0.4 mg/dL (0.2-1.0) D 03/16/17 06:15 AST 6 U/L (15-37) L 03/16/17 06:15 ALT 24 U/L (12-78) D 03/16/17 06:15 Alkaline Phosphatase 88 U/L (45-117) 03/16/17 06:15 Creatine Kinase 37 IU/L (26-192) 03/14/17 19:30 Troponin I < 0.02 ng/ml (0.00-0.05) 03/14/17 19:30 Total Protein 6.5 g/dl (6.4-8.2) 03/16/17 06:15 Albumin 3.7 g/dl (3.4-5.0) 03/16/17 06:15 Lipase 216 U/L (73-393) 03/14/17 19:30 Current Medications Generic Name Dose Route Start Last Admin Trade Name Freq PRN Reason Stop Dose Admin Acetaminophen 325 mg 03/15/17 05:01 03/16/17 20:31 Tylenol - PO 325 mg Q6H PRN Administration PAIN Alprazolam 1 mg 03/15/17 10:00 03/17/17 10:11 Xanax - PO 1 mg BID [facility] Administration Aspirin 81 mg 03/15/17 10:00 03/17/17 10:11 Asa - PO 81 mg DAILY [facility] Administration Atorvastatin Calcium 40 mg 03/15/17 22:00 03/16/17 21:08 Lipitor - PO 40 mg HS [facility] Administration Cholecalciferol 400 unit 03/15/17 10:00 03/17/17 10:11 Vitamin D3 - PO 400 unit DAILY [facility] Administration Escitalopram Oxalate 20 mg 03/15/17 10:00 03/17/17 10:11 Lexapro - PO 20 mg DAILY [facility] Administration Gabapentin 800 mg 03/15/17 06:00 03/17/17 14:47 Neurontin - PO 800 mg TID [facility] Administration Heparin Sodium (Porcine) 5,000 unit 03/15/17 10:00 03/17/17 10:12 Heparin - SQ 5,000 unit BID [facility] Administration Insulin Aspart 1 vial 03/16/17 22:00 03/17/17 11:44 Novolog Vial Sliding Scale - SQ Not Given ACHS [facility] Protocol Lisinopril 2.5 mg 03/17/17 10:45 03/17/17 12:08 Prinivil PO Not Given DAILY [facility] Methylnaltrexone [place] 12 mg 03/16/17 11:00 03/17/17 13:41 Relistor - SQ 12 mg DAILY [facility] Administration Morphine Sulfate 1 mg 03/17/17 09:27 03/17/17 13:38 Morphine Injection - IVPUSH 1 mg Q6H PRN Administration PAIN Oxycodone HCl 5 mg 03/15/17 05:01 03/16/17 20:30 Roxicodone - PO 5 mg Q6H PRN Administration PAIN Topiramate 50 mg 03/15/17 10:00 03/17/17 10:11 Topamax - PO 50 mg BID [facility] Administration Zolpidem Tartrate 10 mg 03/15/17 22:00 Ambien - PO HS PRN AP: DM Hypoglycemia: resolved Contstipation Abd Pain Renal stone NEYMAR; Creatinine normal today Monitor blood sugar Novolog coverage Will f/u Problem List - Problems (1) Abdominal pain in female Code(s): R10.9 - UNSPECIFIED ABDOMINAL PAIN (2) CHF (congestive heart failure), NYHA class I Code(s): I50.9 - HEART FAILURE, UNSPECIFIED Qualifiers: Congestive heart failure type: systolic Congestive heart failure chronicity: chronic Qualified Code(s): I50.22 - Chronic systolic (congestive ) heart failure (3) Diabetes mellitus Code(s): E11.9 - TYPE 2 DIABETES MELLITUS WITHOUT COMPLICATIONS Qualifiers: Diabetes mellitus type: type 2 Diabetes mellitus complication status: with hyperglycemia Diabetes mellitus marine oil terminal superintendent insulin use: without prison use Qualified Code(s): E11.65 - Type 2 diabetes mellitus with hyperglycemia; Z79.4 - oil heaterman (current) use of insulin
[2017-03-17] MEDS: ACETAMINOPHEN 325 MG TABLET (FP) PO PRN (16:44)
[2017-03-17] MEDS: oxyCODONE HCL 5 MG TABLET PO PRN (16:46)
[2017-03-17] MEDS: SODIUM CHLORIDE 0.45% 1,000 ML IV SCH (21:20)
[2017-03-17] MEDS: ATORVASTATIN CA 40 MG TABLET (FP) PO SCH (21:25)
[2017-03-18] MEDS: ACETAMINOPHEN 325 MG TABLET (FP) PO PRN ×2 (02:01→13:50)
[2017-03-18] MEDS: oxyCODONE HCL 5 MG TABLET PO PRN ×3 (02:02→22:26)
[2017-03-18] MEDS: GABAPENTIN 400 MG CAPSULE (FP) PO SCH ×3 (06:15→22:03)
[2017-03-18] MEDS: INSULIN SLIDING SCALE (NOVOLOG) 1 VIAL SQ SCH ×4 (06:52→22:04)
[2017-03-18 07:23] LABS: BASOPHIL 0.5 % (0-2.0); EOSINOPHIL 3.4 % (0-4.5); MCH 30.8 pg (25.7-33.7); MCHC 34.7 g/dl (32.0-36.0); MEAN CELL VOLUME 88.6 fl (80-96); MEAN PLT VOLUME 7.8 fl (7.5-11.1); NEUTROPHILS 67.3 % (42.8-82.8); PLATELET COUNT 238 K/MM3 (134-434); RDW 12.9 % (11.6-15.6); WHITE BLOOD COUNT 8.8 K/mm3 (4.0-10.0)
[2017-03-18] MEDS: morphine CARPU-JECT 2 MG/1 ML DISP.SYRIN IVPUSH PRN ×2 (08:50→18:33)
[2017-03-18 09:16] LABS: ANION GAP 11 (8-16); CALCIUM 8.9 mg/dL (8.5-10.1); CO2 21 mmol/L (21-32); CREATININE 0.8 mg/dL (0.55-1.02); GLUCOSE,RANDOM 91 mg/dL (74-106); MAGNESIUM 2.1 mg/dL (1.8-2.4); PHOSPHOROUS 4.1 mg/dL (2.5-4.9)
[2017-03-18] MEDS ORDERED: PT OWN MED DRAWER 7, Y5N ONE (09:40)
[2017-03-18] MEDS: HEPARIN NA (PORCINE) 5,000 UNITS/ML 1ML VIAL SQ SCH ×2 (09:48→22:04)
[2017-03-18] MEDS: ASPIRIN 81 MG CHEWABLE TABLETS PO SCH (09:49)
[2017-03-18] MEDS: TOPIRAMATE 25 MG TABLET (FP) PO SCH ×2 (09:49→22:04)
[2017-03-18] MEDS: ALPRAZolam 2 MG TABLET PO SCH ×2 (09:49→22:04)
[2017-03-18] MEDS: ESCITALOPRAM OXALATE 20 MG TABLET (FP) PO SCH (09:49)
[2017-03-18] MEDS: CHOLECALCIFEROL (VITAMIN D3) 400 UNIT TABLET (FP) PO SCH (09:49)
[2017-03-18] MEDS: LISINOPRIL 5 MG TABLET (FP) PO SCH (09:50)
[2017-03-18] MEDS: Methylnaltrexone Bromide 12 MG/0.6 ML KIT SQ SCH (09:51)
[2017-03-18] MEDS ORDERED: SODIUM PHOSPHATE/NA BIPHOS 133 ML ENEMA PR PRN (13:28)
--- NOTE | 2017-03-18 14:37 | PN ---
Progress Note, Physician Chief Complaint: Ms Edouard complains of diffuse abdominal pain. No cp or sob. - Current Medication List Current Medications: Active Medications Acetaminophen (Tylenol -) 325 mg PO Q6H PRN PRN Reason: PAIN Last Admin: 03/18/17 13:50 Dose: 325 mg Alprazolam (Xanax -) 1 mg PO BID [facility] Last Admin: 03/18/17 09:49 Dose: 1 mg Aspirin (Asa -) 81 mg PO DAILY [facility] Last Admin: 03/18/17 09:49 Dose: 81 mg Atorvastatin Calcium (Lipitor -) 40 mg PO HS [facility] Last Admin: 03/17/17 21:25 Dose: 40 mg Cholecalciferol (Vitamin D3 -) 400 unit PO DAILY [facility] Last Admin: 03/18/17 09:49 Dose: 400 unit Escitalopram Oxalate (Lexapro -) 20 mg PO DAILY [facility] Last Admin: 03/18/17 09:49 Dose: 20 mg Gabapentin (Neurontin -) 800 mg PO TID [facility] Last Admin: 03/18/17 14:35 Dose: 800 mg Heparin Sodium (Porcine) (Heparin -) 5,000 unit SQ BID [facility] Last Admin: 03/18/17 09:48 Dose: 5,000 unit Sodium Chloride (1/2 Normal Saline) 1,000 mls @ 60 mls/hr IV ASDIR [facility] Last Admin: 03/17/17 21:20 Dose: 60 mls/hr Insulin Aspart (Novolog Vial Sliding Scale -) 1 vial SQ ACHS [facility] PRN Reason: Protocol Last Admin: 03/18/17 12:41 Dose: Not Given Lisinopril (Prinivil) 2.5 mg PO DAILY [facility] Last Admin: 03/18/17 09:50 Dose: Not Given Methylnaltrexone [place] (Relistor -) 12 mg SQ DAILY [facility] Last Admin: 03/18/17 09:51 Dose: 12 mg Morphine Sulfate (Morphine Injection -) 1 mg IVPUSH Q6H PRN PRN Reason: PAIN Last Admin: 03/18/17 08:50 Dose: 1 mg Oxycodone HCl (Roxicodone -) 5 mg PO Q6H PRN PRN Reason: PAIN Last Admin: 03/18/17 13:48 Dose: 5 mg Sodium Phosphate (Fleet Adult Rectal Enema -) 133 ml [place] DAILY PRN PRN Reason: CONSTIPATION Topiramate (Topamax -) 50 mg PO BID [facility] Last Admin: 03/18/17 09:49 Dose: 50 mg Zolpidem Tartrate (Ambien -) 10 mg PO HS PRN - Objective Vital Signs: Vital Signs Temperature 36.8 C 03/18/17 13:37 Pulse Rate 64 03/18/17 13:37 Respiratory Rate 20 03/18/17 13:37 Blood Pressure 117/73 03/18/17 13:37 O2 Sat by Pulse Oximetry (%) 97 03/17/17 20:38 Constitutional: Yes: Well Nourished, No Distress, Calm Cardiovascular: Yes: Regular Rate and Rhythm. No: Gallop, Murmur, Rub Respiratory: Yes: Regular, CTA Bilaterally. No: Rales, Rhonchi, Wheezes Gastrointestinal: Yes: Normal Bowel Sounds, Soft. No: Distention, Tenderness Extremities: Yes: WNL Edema: No Labs: CBC, BMP 03/18/17 06:15 03/18/17 06:15 INR, PTT INR 1.07 (0.82-1.09) 03/14/17 18:41 Problem List - Problems (1) Abdominal pain in female Code(s): R10.9 - UNSPECIFIED ABDOMINAL PAIN (2) Acute kidney injury (nontraumatic) Code(s): N17.9 - ACUTE KIDNEY FAILURE, UNSPECIFIED (3) CAD (coronary artery disease) Code(s): I25.10 - ATHSCL HEART DISEASE OF [place] CORONARY ARTERY W/O ANG PCTRS Qualifiers: Coronary Disease-Associated Artery/Lesion type: [place] artery [place] vs. transplanted heart: [place] heart Associated angina: without angina Qualified Code(s): I25.10 - Atherosclerotic heart disease of [place] coronary artery without angina pectoris (4) CHF (congestive heart failure), NYHA class I Code(s): I50.9 - HEART FAILURE, UNSPECIFIED Qualifiers: Congestive heart failure type: systolic Congestive heart failure chronicity: chronic Qualified Code(s): I50.22 - Chronic systolic (congestive ) heart failure (5) Constipation Code(s): K59.00 - CONSTIPATION, UNSPECIFIED Qualifiers: Constipation type: drug induced constipation Qualified Code(s): K59.03 - Drug induced constipation (6) Diabetes mellitus Code(s): E11.9 - TYPE 2 DIABETES MELLITUS WITHOUT COMPLICATIONS Qualifiers: Diabetes mellitus type: type 2 Diabetes mellitus complication status: with hyperglycemia 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 marine terminal insulin use: without half-way use Qualified Code(s): E11.65 - Type 2 diabetes mellitus with hyperglycemia; Z79.4 - termite exterminator (current) use of insulin (7) Dysuria Code(s): R30.0 - DYSURIA Assessment/Plan (1) Dysuria Assessment/Plan: -ultrasound and urinalysis negative -no further work up needed Code(s): R10.9 - UNSPECIFIED ABDOMINAL PAIN (2) Acute kidney injury (nontraumatic) Assessment/Plan: -appreciate nephrology assistance -now at baseline -IVF restarted secondary to decreased po intake Code(s): N17.9 - ACUTE KIDNEY FAILURE, UNSPECIFIED (3) CAD (coronary artery disease) Assessment/Plan: -quiescent -continue home regimen Code(s): I25.10 - ATHSCL HEART DISEASE OF [place] CORONARY ARTERY W/O ANG PCTRS Qualifiers: Coronary Disease-Associated Artery/Lesion type: [place] artery [place] vs. transplanted heart: [place] heart Associated angina: without angina Qualified Code(s): I25.10 - Atherosclerotic heart disease of [place] coronary artery without angina pectoris (4) CHF (congestive heart failure), NYHA class I Assessment/Plan: -normally on lasix and aldactone -not in exacerbation -holding both currently -would like to see patient have increased po intake before restarting Code(s): I50.9 - HEART FAILURE, UNSPECIFIED Qualifiers: Congestive heart failure type: systolic Congestive heart failure chronicity: chronic Qualified Code(s): I50.22 - Chronic systolic (congestive ) heart failure (5) Constipation Assessment/Plan: -no bowel movement as of yet -continue relistor day 3 -will try enema today -if no bowel movement, will need to restart colace and miralax -may also need to discontinue morphine Code(s): K59.00 - CONSTIPATION, UNSPECIFIED Qualifiers: Constipation type: drug induced constipation Qualified Code(s): K59.03 - Drug induced constipation (6) Diabetes mellitus Assessment/Plan: -endocrinology following and appreciate assistance Code(s): E11.9 - TYPE 2 DIABETES MELLITUS WITHOUT COMPLICATIONS Qualifiers: Diabetes mellitus type: type 2 Diabetes mellitus complication status: with hyperglycemia 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
--- NOTE | 2017-03-18 15:04 | PN ---
Progress Note (short form) - Note Progress Note: Renal follow up for NEYMAR Pt seen and examined at the bedside reports continued back/flank pain and some dysuria no fevers, chills poor oral intake started on IVF last night because of poor oral intake Vital Signs Temperature 98.3 F 03/18/17 13:37 Pulse Rate 64 03/18/17 13:37 Respiratory Rate 20 03/18/17 13:37 Blood Pressure 117/73 03/18/17 13:37 O2 Sat by Pulse Oximetry (%) 97 03/17/17 20:38 Intake & Output 03/15/17 03/16/17 03/17/17 03/18/17 23:59 23:59 23:59 23:59 Intake Total 1525 200 100 890 Output Total 200 300 Balance 1525 200 -100 590 Weight 158 lb Gen: NAD, awake and alert CVS: RRR Lungs: CTA Abd: soft NT/ND Ext: No edema CBC, BMP 03/18/17 06:15 03/18/17 06:15 Current Medications Acetaminophen (Tylenol -) 325 mg PO Q6H PRN PRN Reason: PAIN Last Admin: 03/18/17 13:50 Dose: 325 mg Alprazolam (Xanax -) 1 mg PO BID [facility] Last Admin: 03/18/17 09:49 Dose: 1 mg Aspirin (Asa -) 81 mg PO DAILY [facility] Last Admin: 03/18/17 09:49 Dose: 81 mg Atorvastatin Calcium (Lipitor -) 40 mg PO HS [facility] Last Admin: 03/17/17 21:25 Dose: 40 mg Cholecalciferol (Vitamin D3 -) 400 unit PO DAILY [facility] Last Admin: 03/18/17 09:49 Dose: 400 unit Escitalopram Oxalate (Lexapro -) 20 mg PO DAILY [facility] Last Admin: 03/18/17 09:49 Dose: 20 mg Gabapentin (Neurontin -) 800 mg PO TID [facility] Last Admin: 03/18/17 14:35 Dose: 800 mg Heparin Sodium (Porcine) (Heparin -) 5,000 unit SQ BID [facility] Last Admin: 03/18/17 09:48 Dose: 5,000 unit Sodium Chloride (1/2 Normal Saline) 1,000 mls @ 60 mls/hr IV ASDIR [facility] Last Admin: 03/17/17 21:20 Dose: 60 mls/hr Insulin Aspart (Novolog Vial Sliding Scale -) 1 vial SQ ACHS [facility] PRN Reason: Protocol Last Admin: 03/18/17 12:41 Dose: Not Given Lisinopril (Prinivil) 2.5 mg PO DAILY [facility] Last Admin: 03/18/17 09:50 Dose: Not Given Methylnaltrexone [place] (Relistor -) 12 mg SQ DAILY [facility] Last Admin: 03/18/17 09:51 Dose: 12 mg Morphine Sulfate (Morphine Injection -) 1 mg IVPUSH Q6H PRN PRN Reason: PAIN Last Admin: 03/18/17 08:50 Dose: 1 mg Oxycodone HCl (Roxicodone -) 5 mg PO Q6H PRN PRN Reason: PAIN Last Admin: 03/18/17 13:48 Dose: 5 mg Sodium Phosphate (Fleet Adult Rectal Enema -) 133 ml [place] DAILY PRN PRN Reason: CONSTIPATION Topiramate (Topamax -) 50 mg PO BID [facility] Last Admin: 03/18/17 09:49 Dose: 50 mg Zolpidem Tartrate (Ambien -) 10 mg PO HS PRN A/P 52 year old woman with PMhx of DM Type 2, Hypertension, CHF, Hyperlipidemia, Anxiety, Depression, Nephrolithiasis who presented with Abd pain with N/V and found to have acute kidney injury. #Acute Renal Failure (baseline Cr 0.5-0.6) Etiology likely related to hypovolemia +/- renal hypoprofusion in setting of ACEi Renal function is essentailly near baseline on gentle IVF hydration b/c of poor oral intake #Nephrolithiasis pt continue to report flank pain No evidence of obstruction on CT scan repeat US showed no obstructing stone #Abd pain LFTs within normal limits CT w/o evidence of diveticultis but not a contrast study UA and urine cutlure negative #Hx of Hypertension now with Low BP hold ACEi continue low dose BB for CHF #Hx of CHF Mild LVF reduction with global hypokinesis of LV no evidence of volume overload at this time continue gentle IVF hydration x 24 hours Cardiology follow up holding ACEI and aldactone for now Thank you Med Chris DO
[2017-03-18] MEDS ORDERED: INSULIN (NOVOLOG) ASPART 100 UNITS/ML 10ML VIAL ONE (21:38)
[2017-03-18] MEDS: ATORVASTATIN CA 40 MG TABLET (FP) PO SCH (22:04)
[2017-03-18] MEDS: SODIUM CHLORIDE 0.45% 1,000 ML IV SCH (22:06)
[2017-03-19] MEDS: morphine CARPU-JECT 2 MG/1 ML DISP.SYRIN IVPUSH PRN (01:59)
[2017-03-19] MEDS: GABAPENTIN 400 MG CAPSULE (FP) PO SCH ×3 (05:37→21:21)
[2017-03-19] MEDS: ACETAMINOPHEN 325 MG TABLET (FP) PO PRN (05:41)
[2017-03-19] MEDS: oxyCODONE HCL 5 MG TABLET PO PRN ×2 (05:42→12:25)
[2017-03-19] MEDS: INSULIN SLIDING SCALE (NOVOLOG) 1 VIAL SQ SCH ×4 (06:07→21:35)
[2017-03-19 08:13] LABS: BASOPHIL 0.4 % (0-2.0); EOSINOPHIL 3.6 % (0-4.5); MCHC 35.1 g/dl (32.0-36.0); MEAN CELL VOLUME 88.3 fl (80-96); MEAN PLT VOLUME 7.7 fl (7.5-11.1); NEUTROPHILS 65.5 % (42.8-82.8); PLATELET COUNT 222 K/MM3 (134-434); RDW 12.7 % (11.6-15.6); WHITE BLOOD COUNT 7.4 K/mm3 (4.0-10.0)
[2017-03-19 08:41] LABS: ANION GAP 10 (8-16); CALCIUM 8.8 mg/dL (8.5-10.1); CO2 24 mmol/L (21-32); CREATININE 0.9 mg/dL (0.55-1.02); GLUCOSE,RANDOM 135 mg/dL (74-106); MAGNESIUM 1.8 mg/dL (1.8-2.4); PHOSPHOROUS 3.3 mg/dL (2.5-4.9)
[2017-03-19] MEDS ORDERED: LISINOPRIL 5 MG TABLET (FP) PO SCH (10:30)
--- NOTE | 2017-03-19 10:31 | PN ---
Progress Note (short form) - Note Progress Note: Renal follow up for NEYMAR Pt seen and examined at the bedside awake and alert ate a very little portion of breakfast continues to report discomfort in the flank and pelvis area making urine on IVF Vital Signs Temperature 97.8 F 03/19/17 09:00 Pulse Rate 87 03/19/17 09:00 Respiratory Rate 20 03/19/17 09:00 Blood Pressure 99/48 03/19/17 09:00 O2 Sat by Pulse Oximetry (%) 97 03/18/17 21:00 Intake & Output 03/16/17 03/17/17 03/18/17 03/19/17 23:59 23:59 23:59 23:59 Intake Total 208 185 1104 900 Output Total 200 500 700 Balance 200 -100 890 200 Gen: NAD, awake and alert CVS: RRR Lungs: CTA Abd: soft NT/ND Ext: No edema CBC, BMP 03/19/17 06:00 03/19/17 06:00 Current Medications Acetaminophen (Tylenol -) 325 mg PO Q6H PRN PRN Reason: PAIN Last Admin: 03/19/17 05:41 Dose: 325 mg Alprazolam (Xanax -) 1 mg PO BID [facility] Last Admin: 03/18/17 22:04 Dose: 1 mg Aspirin (Asa -) 81 mg PO DAILY [facility] Last Admin: 03/18/17 09:49 Dose: 81 mg Atorvastatin Calcium (Lipitor -) 40 mg PO HS [facility] Last Admin: 03/18/17 22:04 Dose: 40 mg Cholecalciferol (Vitamin D3 -) 400 unit PO DAILY [facility] Last Admin: 03/18/17 09:49 Dose: 400 unit Escitalopram Oxalate (Lexapro -) 20 mg PO DAILY [facility] Last Admin: 03/18/17 09:49 Dose: 20 mg Gabapentin (Neurontin -) 800 mg PO TID [facility] Last Admin: 03/19/17 05:37 Dose: 800 mg Heparin Sodium (Porcine) (Heparin -) 5,000 unit SQ BID [facility] Last Admin: 03/18/17 22:04 Dose: 5,000 unit Sodium Chloride (1/2 Normal Saline) 1,000 mls @ 60 mls/hr IV ASDIR [facility] Last Admin: 03/18/17 22:06 Dose: 60 mls/hr Insulin Aspart (Novolog Vial Sliding Scale -) 1 vial SQ ACHS [facility] PRN Reason: Protocol Last Admin: 03/19/17 06:07 Dose: Not Given Lisinopril (Prinivil) 2.5 mg PO DAILY [facility] Last Admin: 03/18/17 09:50 Dose: Not Given Methylnaltrexone [place] (Relistor -) 12 mg SQ DAILY [facility] Last Admin: 03/18/17 09:51 Dose: 12 mg Morphine Sulfate (Morphine Injection -) 1 mg IVPUSH Q6H PRN PRN Reason: PAIN Last Admin: 03/19/17 01:59 Dose: 1 mg Oxycodone HCl (Roxicodone -) 5 mg PO Q6H PRN PRN Reason: PAIN Last Admin: 03/19/17 05:42 Dose: 5 mg Topiramate (Topamax -) 50 mg PO BID [facility] Last Admin: 03/18/17 22:04 Dose: 50 mg Zolpidem Tartrate (Ambien -) 10 mg PO HS PRN A/P 52 year old woman with PMhx of DM Type 2, Hypertension, CHF, Hyperlipidemia, Anxiety, Depression, Nephrolithiasis who presented with Abd pain with N/V and found to have acute kidney injury. #Acute Renal Failure (baseline Cr 0.5-0.6) Etiology likely related to hypovolemia +/- renal hypoprofusion in setting of ACEi Renal function improved stable, although still higher then baseline continue gentle IVF holding ACEi for low BP #Nephrolithiasis pt continue to report flank pain No evidence of obstruction on CT scan repeat US showed no obstructing stone #Abd pain LFTs within normal limits CT w/o evidence of diveticultis but not a contrast study UA and urine cutlure negative Thank you Med Chris DO
[2017-03-19] MEDS ORDERED: PT OWN MED DRAWER 7, Y5N ONE (10:55)
[2017-03-19] MEDS: ALPRAZolam 2 MG TABLET PO SCH ×2 (10:56→21:31)
[2017-03-19] MEDS: Methylnaltrexone Bromide 12 MG/0.6 ML KIT SQ SCH (10:57)
[2017-03-19] MEDS: ESCITALOPRAM OXALATE 20 MG TABLET (FP) PO SCH (10:57)
[2017-03-19] MEDS: CHOLECALCIFEROL (VITAMIN D3) 400 UNIT TABLET (FP) PO SCH (10:57)
[2017-03-19] MEDS: ASPIRIN 81 MG CHEWABLE TABLETS PO SCH (10:57)
[2017-03-19] MEDS: HEPARIN NA (PORCINE) 5,000 UNITS/ML 1ML VIAL SQ SCH ×2 (10:57→21:21)
[2017-03-19] MEDS: TOPIRAMATE 25 MG TABLET (FP) PO SCH ×2 (10:57→21:21)
[2017-03-19] MEDS: LISINOPRIL 5 MG TABLET (FP) PO SCH (10:58)
--- NOTE | 2017-03-19 12:35 | PN ---
Progress Note (short form) - Note Progress Note: Still with poor apetite Didn't eat much of breakfast or lunch No hypos Did not move bowels yet Still with abd pain Vital Signs Period Temp Pulse Resp BP Sys/Riley Pulse Ox Last 24 Hr 97.8 F-98.5 F 18-87 18-56 99-129/48-78 97 PE: AOx3 Neck: Supple HEENT: PERRL, EOMI Lungs: CTA CVS: S1S2 Abd: mild abd tenderness, BS present EXt: No edema Neuro: No focal deficit CMP Sodium 139 mmol/L (136-145) 03/19/17 06:00 Potassium 3.9 mmol/L (3.5-5.1) 03/19/17 06:00 Chloride 105 mmol/L (98-107) 03/19/17 06:00 Carbon Dioxide 24 mmol/L (21-32) 03/19/17 06:00 Anion Gap 10 (8-16) 03/19/17 06:00 BUN 19 mg/dL (7-18) H 03/19/17 06:00 Creatinine 0.9 mg/dL (0.55-1.02) 03/19/17 06:00 Creat Clearance w eGFR > 60 (>60) 03/16/17 06:15 POC Glucometer 104 UNITS (()) 03/19/17 11:48 Random Glucose 135 mg/dL (74-106) H D 03/19/17 06:00 Hemoglobin A1c % 7.9 % (4.8-6.0) H D 03/16/17 06:15 Lactic Acid 1.1 mmol/L (0.4-2.0) 03/14/17 19:30 Calcium 8.8 mg/dL (8.5-10.1) 03/19/17 06:00 Phosphorus 3.3 mg/dL (2.5-4.9) 03/19/17 06:00 Magnesium 1.8 mg/dL (1.8-2.4) 03/19/17 06:00 Total Bilirubin 0.4 mg/dL (0.2-1.0) D 03/16/17 06:15 AST 6 U/L (15-37) L 03/16/17 06:15 ALT 24 U/L (12-78) D 03/16/17 06:15 Alkaline Phosphatase 88 U/L (45-117) 03/16/17 06:15 Creatine Kinase 37 IU/L (26-192) 03/14/17 19:30 Troponin I < 0.02 ng/ml (0.00-0.05) 03/14/17 19:30 Total Protein 6.5 g/dl (6.4-8.2) 03/16/17 06:15 Albumin 3.7 g/dl (3.4-5.0) 03/16/17 06:15 Lipase 216 U/L (73-393) 03/14/17 19:30 Current Medications Generic Name Dose Route Start Last Admin Trade Name Ashq PRN Reason Stop Dose Admin Acetaminophen 325 mg 03/15/17 05:01 03/19/17 05:41 Tylenol - PO 325 mg Q6H PRN Administration PAIN Alprazolam 1 mg 03/15/17 10:00 03/19/17 10:56 Xanax - PO 1 mg BID [facility] Administration Aspirin 81 mg 03/15/17 10:00 03/19/17 10:57 Asa - PO 81 mg DAILY [facility] Administration Atorvastatin Calcium 40 mg 03/15/17 22:00 03/18/17 22:04 Lipitor - PO 40 mg HS [facility] Administration Cholecalciferol 400 unit 03/15/17 10:00 03/19/17 10:57 Vitamin D3 - PO 400 unit DAILY [facility] Administration Escitalopram Oxalate 20 mg 03/15/17 10:00 03/19/17 10:57 Lexapro - PO 20 mg DAILY [facility] Administration Gabapentin 800 mg 03/15/17 06:00 03/19/17 05:37 Neurontin - PO 800 mg TID [facility] Administration Heparin Sodium (Porcine) 5,000 unit 03/15/17 10:00 03/19/17 10:57 Heparin - SQ 5,000 unit BID [facility] Administration Sodium Chloride 1,000 mls @ 60 mls/hr 03/17/17 20:15 03/18/17 22:06 1/2 Normal Saline IV 60 mls/hr ASDIR [facility] Administration Insulin Aspart 1 vial 03/16/17 22:00 03/19/17 11:49 Novolog Vial Sliding Scale - SQ Not Given ACHS [facility] Protocol Lisinopril 2.5 mg 03/19/17 10:30 Prinivil PO DAILY [facility] Methylnaltrexone [place] 12 mg 03/16/17 11:00 03/19/17 10:57 Relistor - SQ 12 mg DAILY [facility] Administration Morphine Sulfate 1 mg 03/17/17 09:27 03/19/17 01:59 Morphine Injection - IVPUSH 1 mg Q6H PRN Administration PAIN Oxycodone HCl 5 mg 03/15/17 05:01 03/19/17 12:25 Roxicodone - PO 5 mg Q6H PRN Administration PAIN Topiramate 50 mg 03/15/17 10:00 03/19/17 10:57 Topamax - PO 50 mg BID [facility] Administration Zolpidem Tartrate 10 mg 03/15/17 22:00 Ambien - PO HS PRN AP: DM Hypoglycemia: resolved Contstipation Abd Pain Renal stone NEYMAR; Creatinine normal today Monitor blood sugar BID for now Novolog SS coverage Will f/u Problem List - Problems (1) Abdominal pain in female Code(s): R10.9 - UNSPECIFIED ABDOMINAL PAIN (2) CHF (congestive heart failure), NYHA class I Code(s): I50.9 - HEART FAILURE, UNSPECIFIED Qualifiers: Congestive heart failure type: systolic Congestive heart failure chronicity: chronic Qualified Code(s): I50.22 - Chronic systolic (congestive ) heart failure (3) Diabetes mellitus Code(s): E11.9 - TYPE 2 DIABETES MELLITUS WITHOUT COMPLICATIONS Qualifiers: Diabetes mellitus type: type 2 Diabetes mellitus complication status: with hyperglycemia Diabetes mellitus fpc insulin use: without petroleum terminal plant 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
--- NOTE | 2017-03-19 13:41 | PN ---
Physical Exam: SUBJECTIVE: Patient seen and examined. Complaining of abdominal pain. No BM. OBJECTIVE: Vital Signs Period Temp Pulse Resp BP Sys/Riley Pulse Ox Last 24 Hr 97.8 F-98.5 F 18-87 18-56 99-129/48-78 97 GENERAL: The patient is awake, alert, and fully oriented, in no acute distress. HEAD: Normal with no signs of trauma. LUNGS: Breath sounds equal, clear to auscultation bilaterally, no wheezes, no crackles, no accessory muscle use. HEART: Regular rate and rhythm, S1, S2 without murmur, rub or gallop. ABDOMEN: Soft, nontender, nondistended; hypoactive bowel sounds EXTREMITIES: 2+ pulses, warm, well-perfused, no edema. NEUROLOGICAL: Cranial nerves II through XII grossly intact. Normal speech, gait not observed. Laboratory Results - last 24 hr 03/18/17 03/18/17 03/19/17 18:05 22:02 05:36 WBC RBC Hgb Hct MCV MCH MCHC RDW Plt Count MPV Neutrophils % Lymphocytes % Monocytes % Eosinophils % Basophils % Sodium Potassium Chloride Carbon Dioxide Anion Gap BUN Creatinine POC Glucometer 103 99 122 Random Glucose Calcium Phosphorus Magnesium 03/19/17 03/19/17 03/19/17 06:00 06:00 11:48 WBC 7.4 RBC 3.77 Hgb 11.7 Hct 33.3 MCV 88.3 MCH 31.0 MCHC 35.1 RDW 12.7 Plt Count 222 MPV 7.7 Neutrophils % 65.5 Lymphocytes % 25.9 Monocytes % 4.6 Eosinophils % 3.6 Basophils % 0.4 Sodium 139 Potassium 3.9 Chloride 105 Carbon Dioxide 24 Anion Gap 10 BUN 19 H Creatinine 0.9 POC Glucometer 104 Random Glucose 135 H D Calcium 8.8 Phosphorus 3.3 Magnesium 1.8 Active Medications Generic Name Dose Route Start Last Admin Trade Name Freq PRN Reason Stop Dose Admin Acetaminophen 325 mg 03/15/17 05:01 03/19/17 05:41 Tylenol - PO 325 mg Q6H PRN Administration PAIN Alprazolam 1 mg 03/15/17 10:00 03/19/17 10:56 Xanax - PO 1 mg BID [facility] Administration Aspirin 81 mg 03/15/17 10:00 03/19/17 10:57 Asa - PO 81 mg DAILY [facility] Administration Atorvastatin Calcium 40 mg 03/15/17 22:00 03/18/17 22:04 Lipitor - PO 40 mg HS [facility] Administration Cholecalciferol 400 unit 03/15/17 10:00 03/19/17 10:57 Vitamin D3 - PO 400 unit DAILY [facility] Administration Escitalopram Oxalate 20 mg 03/15/17 10:00 03/19/17 10:57 Lexapro - PO 20 mg DAILY [facility] Administration Gabapentin 800 mg 03/15/17 06:00 03/19/17 05:37 Neurontin - PO 800 mg TID [facility] Administration Heparin Sodium (Porcine) 5,000 unit 03/15/17 10:00 03/19/17 10:57 Heparin - SQ 5,000 unit BID [facility] Administration Sodium Chloride 1,000 mls @ 60 mls/hr 03/17/17 20:15 03/18/17 22:06 1/2 Normal Saline IV 60 mls/hr ASDIR [facility] Administration Insulin Aspart 1 vial 03/16/17 22:00 03/19/17 11:49 Novolog Vial Sliding Scale - SQ Not Given ACHS [facility] Protocol Lisinopril 2.5 mg 03/19/17 10:30 Prinivil PO DAILY [facility] Methylnaltrexone [place] 12 mg 03/16/17 11:00 03/19/17 10:57 Relistor - SQ 12 mg DAILY [facility] Administration Morphine Sulfate 1 mg 03/17/17 09:27 03/19/17 01:59 Morphine Injection - IVPUSH 1 mg Q6H PRN Administration PAIN Oxycodone HCl 5 mg 03/15/17 05:01 03/19/17 12:25 Roxicodone - PO 5 mg Q6H PRN Administration PAIN Topiramate 50 mg 03/15/17 10:00 03/19/17 10:57 Topamax - PO 50 mg BID [facility] Administration Zolpidem Tartrate 10 mg 03/15/17 22:00 Ambien - PO HS PRN ASSESSMENT/PLAN: 52 year-old woman with PMH of HTN, HLD, CAD s/p MT s/p stent, HF s/p PPM/AICD, COPD, sleep apnea, NIDDM, CKD, nephrolithiasis, chronic low back pain, fibromyalgia, and body dysmorphic disorder. Admitted for abdominal and back pain. Abdominal pain likely secondary to opioid-induced constipation --day 4 with no witnessed BM --patient advised all opioids are stopped until she has a witnessed BM; patient expressed frustration but understood reasoning --continue Relistor --f/o flat & upright Acute kidney injury --Cr 1.6 on admission, today 0.9; baseline ~0.6 --continue 1/2NS @ 60mL/hr --hold ACEI and aldactone Hypertension --BP on low side --hold lisinopril Coronary artery disease s/p stent --continue ASA, Lipitor Systolic heart failure --mild LVF reduction with global hypokinesis of LV --not in exacerbation --normally on lasix and aldactone, continue to hold while PO intake is decreased NIDDM --Novolog sliding scale coverage Dysuria --UA and UC negative, no treatment DVT prophylaxis: subq heparin, oob, ambulation Visit type - Emergency Visit Emergency Visit: Yes ED Registration Date: 03/15/17 Care time: The patient presented to the Emergency Department on the above date and was hospitalized for further evaluation of their emergent condition. - New Patient This patient is new to me today: Yes Date on this admission: 03/19/17 - Critical Care Critical Care patient: No
[2017-03-19] MEDS: SODIUM CHLORIDE 0.45% 1,000 ML IV SCH ×2 (15:25→21:19)
[2017-03-19] MEDS ORDERED: INSULIN (NOVOLOG) ASPART 100 UNITS/ML 10ML VIAL ONE (20:45)
[2017-03-19] MEDS: ATORVASTATIN CA 40 MG TABLET (FP) PO SCH (21:21)
[2017-03-20] MEDS: INSULIN SLIDING SCALE (NOVOLOG) 1 VIAL SQ SCH ×3 (06:18→16:50)
[2017-03-20] MEDS: GABAPENTIN 400 MG CAPSULE (FP) PO SCH ×3 (06:41→21:11)
[2017-03-20 07:14] LABS: BASOPHIL 0.3 % (0-2.0); EOSINOPHIL 3.9 % (0-4.5); MCH 31.3 pg (25.7-33.7); MCHC 35.3 g/dl (32.0-36.0); MEAN CELL VOLUME 88.8 fl (80-96); MEAN PLT VOLUME 7.1 fl (7.5-11.1); NEUTROPHILS 62.9 % (42.8-82.8); PLATELET COUNT 219 K/MM3 (134-434); RDW 12.8 % (11.6-15.6); WHITE BLOOD COUNT 8.8 K/mm3 (4.0-10.0)
[2017-03-20 07:43] LABS: ALBUMIN 3.9 g/dl (3.4-5.0); ANION GAP 8 (8-16); CALCIUM 8.7 mg/dL (8.5-10.1); CO2 23 mmol/L (21-32); GLUCOSE,RANDOM 87 mg/dL (74-106); MAGNESIUM 1.9 mg/dL (1.8-2.4)
[2017-03-20 07:47] LABS: ALK PHOS 100 U/L (45-117); BILIRUBIN,TOTAL 0.5 mg/dL (0.2-1.0); CREATININE 0.9 mg/dL (0.55-1.02); PHOSPHOROUS 3.4 mg/dL (2.5-4.9); SGOT/AST 13 U/L (15-37); SGPT/ALT 41 U/L (12-78); TOT PROT 6.9 g/dl (6.4-8.2)
[2017-03-20] MEDS ORDERED: PT OWN MED DRAWER 7, Y5N ONE (10:26)
[2017-03-20] MEDS: ALPRAZolam 2 MG TABLET PO SCH ×2 (10:30→21:12)
[2017-03-20] MEDS: CHOLECALCIFEROL (VITAMIN D3) 400 UNIT TABLET (FP) PO SCH (10:31)
[2017-03-20] MEDS: ESCITALOPRAM OXALATE 20 MG TABLET (FP) PO SCH (10:31)
[2017-03-20] MEDS: ASPIRIN 81 MG CHEWABLE TABLETS PO SCH (10:31)
[2017-03-20] MEDS: TOPIRAMATE 25 MG TABLET (FP) PO SCH ×2 (10:31→21:11)
[2017-03-20] MEDS: HEPARIN NA (PORCINE) 5,000 UNITS/ML 1ML VIAL SQ SCH ×2 (10:32→21:12)
[2017-03-20] MEDS: Methylnaltrexone Bromide 12 MG/0.6 ML KIT SQ SCH (10:32)
[2017-03-20] MEDS: SODIUM CHLORIDE 0.45% 1,000 ML IV SCH ×2 (10:33→21:10)
--- NOTE | 2017-03-20 13:10 | PN ---
Progress Note (short form) - Note Progress Note: Still with poor apetite Didn't eat much of breakfast Blood sugar >200 today Did not move bowels yet Still with abd pain Vital Signs Period Temp Pulse Resp BP Sys/Riley Pulse Ox Last 24 Hr 97.9 F-98.6 F 55-67 18-20 90-106/52-69 98-98 PE: AOx3 Neck: Supple HEENT: PERRL, EOMI Lungs: CTA CVS: S1S2 Abd: NT, BS present EXt: No edema Neuro: No focal deficit CMP Sodium 140 mmol/L (136-145) 03/20/17 06:15 Potassium 4.0 mmol/L (3.5-5.1) 03/20/17 06:15 Chloride 109 mmol/L (98-107) H 03/20/17 06:15 Carbon Dioxide 23 mmol/L (21-32) 03/20/17 06:15 Anion Gap 8 (8-16) 03/20/17 06:15 BUN 18 mg/dL (7-18) 03/20/17 06:15 Creatinine 0.9 mg/dL (0.55-1.02) 03/20/17 06:15 Creat Clearance w eGFR > 60 (>60) 03/20/17 06:15 POC Glucometer 203 UNITS (()) 03/20/17 11:15 Random Glucose 87 mg/dL (74-106) D 03/20/17 06:15 Hemoglobin A1c % 7.9 % (4.8-6.0) H D 03/16/17 06:15 Lactic Acid 1.1 mmol/L (0.4-2.0) 03/14/17 19:30 Calcium 8.7 mg/dL (8.5-10.1) 03/20/17 06:15 Phosphorus 3.4 mg/dL (2.5-4.9) 03/20/17 06:15 Magnesium 1.9 mg/dL (1.8-2.4) 03/20/17 06:15 Total Bilirubin 0.5 mg/dL (0.2-1.0) D 03/20/17 06:15 AST 13 U/L (15-37) L D 03/20/17 06:15 ALT 41 U/L (12-78) D 03/20/17 06:15 Alkaline Phosphatase 100 U/L (45-117) 03/20/17 06:15 Creatine Kinase 37 IU/L (26-192) 03/14/17 19:30 Troponin I < 0.02 ng/ml (0.00-0.05) 03/14/17 19:30 Total Protein 6.9 g/dl (6.4-8.2) 03/20/17 06:15 Albumin 3.9 g/dl (3.4-5.0) 03/20/17 06:15 Lipase 216 U/L (73-393) 03/14/17 19:30 Current Medications Generic Name Dose Route Start Last Admin Trade Name Ashq PRN Reason Stop Dose Admin Acetaminophen 325 mg 03/15/17 05:01 03/19/17 05:41 Tylenol - PO 325 mg Q6H PRN Administration PAIN Alprazolam 1 mg 03/15/17 10:00 03/20/17 10:30 Xanax - PO 1 mg BID GABI Administration Aspirin 81 mg 03/15/17 10:00 03/20/17 10:31 Asa - PO 81 mg DAILY GABI Administration Atorvastatin Calcium 40 mg 03/15/17 22:00 03/19/17 21:21 Lipitor - PO 40 mg HS GABI Administration Cholecalciferol 400 unit 03/15/17 10:00 03/20/17 10:31 Vitamin D3 - PO 400 unit DAILY [facility]I Administration Escitalopram Oxalate 20 mg 03/15/17 10:00 03/20/17 10:31 Lexapro - PO 20 mg DAILY GABI Administration Gabapentin 800 mg 03/15/17 06:00 03/20/17 06:41 Neurontin - PO 800 mg TID GABI Administration Heparin Sodium (Porcine) 5,000 unit 03/15/17 10:00 03/20/17 10:32 Heparin - SQ 5,000 unit BID GABI Administration Sodium Chloride 1,000 mls @ 60 mls/hr 03/17/17 20:15 03/20/17 10:33 1/2 Normal Saline IV 60 mls/hr ASDIR GABI Administration Insulin Aspart 1 vial 03/16/17 22:00 03/20/17 12:04 Novolog Vial Sliding Scale - SQ Not Given ACHS GABI Protocol Methylnaltrexone [place] 12 mg 03/16/17 11:00 03/20/17 10:32 Relistor - SQ 12 mg DAILY GABI Administration Topiramate 50 mg 03/15/17 10:00 03/20/17 10:31 Topamax - PO 50 mg BID GABI Administration AP: DM Hypoglycemia: resolved Contstipation Abd Pain Renal stone NEYMAR; Creatinine normal today Monitor blood sugar BID for now Change Novolog SS coverage Will f/u Problem List - Problems (1) Abdominal pain in female Code(s): R10.9 - UNSPECIFIED ABDOMINAL PAIN (2) CHF (congestive heart failure), NYHA class I Code(s): I50.9 - HEART FAILURE, UNSPECIFIED Qualifiers: Congestive heart failure type: systolic Congestive heart failure chronicity: chronic Qualified Code(s): I50.22 - Chronic systolic (congestive ) heart failure (3) Diabetes mellitus Code(s): E11.9 - TYPE 2 DIABETES MELLITUS WITHOUT COMPLICATIONS Qualifiers: Diabetes mellitus type: type 2 Diabetes mellitus complication status: with hyperglycemia Diabetes mellitus intermediate frame tender insulin use: without alf use Qualified Code(s): E11.65 - Type 2 diabetes mellitus with hyperglycemia; 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
[2017-03-20] MEDS: ACETAMINOPHEN 325 MG TABLET (FP) PO PRN (15:12)
--- NOTE | 2017-03-20 17:06 | PN ---
Physical Exam: SUBJECTIVE: Patient seen and examined. States she is still feeling poorly, denies having a BM. OBJECTIVE: Vital Signs Period Temp Pulse Resp BP Sys/Riley Pulse Ox Last 24 Hr 97.9 F-98.6 F 55-67 18-20 90-106/52-69 98-98 GENERAL: The patient is awake, alert, and fully oriented, in no acute distress. HEAD: Normal with no signs of trauma. LUNGS: Breath sounds equal, clear to auscultation bilaterally, no wheezes, no crackles, no accessory muscle use. HEART: Regular rate and rhythm, S1, S2 without murmur, rub or gallop. ABDOMEN: Soft, nontender, nondistended EXTREMITIES: 2+ pulses, warm, well-perfused, no edema. NEUROLOGICAL: Cranial nerves II through XII grossly intact. Normal speech, steady gait. Laboratory Results - last 24 hr 03/19/17 03/20/17 03/20/17 23:36 05:57 06:15 WBC 8.8 RBC 3.71 Hgb 11.6 Hct 33.0 MCV 88.8 MCH 31.3 MCHC 35.3 RDW 12.8 Plt Count 219 MPV 7.1 L Neutrophils % 62.9 Lymphocytes % 25.9 Monocytes % 7.0 Eosinophils % 3.9 Basophils % 0.3 Sodium Potassium Chloride Carbon Dioxide Anion Gap BUN Creatinine Creat Clearance w eGFR POC Glucometer 137 112 Random Glucose Calcium Phosphorus Magnesium Total Bilirubin AST ALT Alkaline Phosphatase Total Protein Albumin 03/20/17 03/20/17 06:15 11:15 WBC RBC Hgb Hct MCV MCH MCHC RDW Plt Count MPV Neutrophils % Lymphocytes % Monocytes % Eosinophils % Basophils % Sodium 140 Potassium 4.0 Chloride 109 H Carbon Dioxide 23 Anion Gap 8 BUN 18 Creatinine 0.9 Creat Clearance w eGFR > 60 POC Glucometer 203 Random Glucose 87 D Calcium 8.7 Phosphorus 3.4 Magnesium 1.9 Total Bilirubin 0.5 D AST 13 L D ALT 41 D Alkaline Phosphatase 100 Total Protein 6.9 Albumin 3.9 Active Medications Generic Name Dose Route Start Last Admin Trade Name Freq PRN Reason Stop Dose Admin Acetaminophen 325 mg 03/15/17 05:01 03/20/17 15:12 Tylenol - PO 325 mg Q6H PRN Administration PAIN Alprazolam 1 mg 03/15/17 10:00 03/20/17 10:30 Xanax - PO 1 mg BID GABI Administration Aspirin 81 mg 03/15/17 10:00 03/20/17 10:31 Asa - PO 81 mg DAILY GABI Administration Atorvastatin Calcium 40 mg 03/15/17 22:00 03/19/17 21:21 Lipitor - PO 40 mg HS GABI Administration Cholecalciferol 400 unit 03/15/17 10:00 03/20/17 10:31 Vitamin D3 - PO 400 unit DAILY GABI Administration Escitalopram Oxalate 20 mg 03/15/17 10:00 03/20/17 10:31 Lexapro - PO 20 mg DAILY GABI Administration Gabapentin 800 mg 03/15/17 06:00 03/20/17 14:10 Neurontin - PO 800 mg TID GABI Administration Heparin Sodium (Porcine) 5,000 unit 03/15/17 10:00 03/20/17 10:32 Heparin - SQ 5,000 unit BID GABI Administration Sodium Chloride 1,000 mls @ 60 mls/hr 03/17/17 20:15 03/20/17 10:33 1/2 Normal Saline IV 60 mls/hr ASDIR GABI Administration Insulin Aspart 1 vial 03/20/17 16:30 03/20/17 16:50 Novolog Vial Sliding Scale - SQ Not Given BIDAC [facility] Protocol Methylnaltrexone [place] 12 mg 03/16/17 11:00 03/20/17 10:32 Relistor - SQ 12 mg DAILY GABI Administration Topiramate 50 mg 03/15/17 10:00 03/20/17 10:31 Topamax - PO 50 mg BID GABI Administration ASSESSMENT/PLAN 52 year-old woman with PMH of HTN, HLD, CAD s/p [place] s/p stent, HF s/p PPM/AICD, COPD, sleep apnea, NIDDM, CKD, nephrolithiasis, chronic low back pain, fibromyalgia, and body dysmorphic disorder. Admitted for abdominal and back pain. Abdominal pain likely secondary to opioid-induced constipation --day 5 with no witnessed BM; 03/20 FUA shows mild to moderate stool --patient advised all opioids are stopped until she has a witnessed BM; patient expressed frustration but understood reasoning --continue Relistor Acute kidney injury --Cr 1.6 on admission, today 0.9; baseline ~0.6 --continue 1/2NS @ 60mL/hr --hold ACEI and aldactone Hypertension --BP on low side --hold lisinopril Coronary artery disease s/p stent --continue ASA, Lipitor Systolic heart failure --mild LVF reduction with global hypokinesis of LV --not in exacerbation --normally on lasix and aldactone, continue to hold while PO intake is decreased NIDDM --Novolog sliding scale coverage Dysuria --UA and UC negative, no treatment DVT prophylaxis: subq heparin, oob, ambulation Visit type - Emergency Visit Emergency Visit: Yes ED Registration Date: 03/15/17 Care time: The patient presented to the Emergency Department on the above date and was hospitalized for further evaluation of their emergent condition. - New Patient This patient is new to me today: No - Critical Care Critical Care patient: No
[2017-03-20] MEDS ORDERED: morphine CARPU-JECT 2 MG/1 ML DISP.SYRIN IVPUSH ONE (20:13)
[2017-03-20] MEDS: ATORVASTATIN CA 40 MG TABLET (FP) PO SCH (21:12)
[2017-03-21] MEDS: SODIUM CHLORIDE 0.45% 1,000 ML IV SCH ×2 (01:42→20:30)
[2017-03-21] MEDS: INSULIN SLIDING SCALE (NOVOLOG) 1 VIAL SQ SCH ×2 (06:00→16:43)
[2017-03-21] MEDS: GABAPENTIN 400 MG CAPSULE (FP) PO SCH ×3 (06:01→21:24)
[2017-03-21] MEDS: CHOLECALCIFEROL (VITAMIN D3) 400 UNIT TABLET (FP) PO SCH (10:18)
[2017-03-21] MEDS: TOPIRAMATE 25 MG TABLET (FP) PO SCH ×2 (10:18→21:25)
[2017-03-21] MEDS: ESCITALOPRAM OXALATE 20 MG TABLET (FP) PO SCH (10:18)
[2017-03-21] MEDS: HEPARIN NA (PORCINE) 5,000 UNITS/ML 1ML VIAL SQ SCH ×2 (10:19→21:24)
[2017-03-21] MEDS: ASPIRIN 81 MG CHEWABLE TABLETS PO SCH (10:19)
[2017-03-21] MEDS: ALPRAZolam 2 MG TABLET PO SCH ×2 (10:23→21:25)
[2017-03-21] MEDS: POLYETHYLENE GLYCOL 3350 119 GM BTL PO SCH ×2 (10:28→21:25)
[2017-03-21] MEDS: Methylnaltrexone Bromide 12 MG/0.6 ML KIT SQ SCH (10:29)
[2017-03-21 10:39] LABS: BASOPHIL 0.5 % (0-2.0); EOSINOPHIL 2.9 % (0-4.5); MCHC 34.6 g/dl (32.0-36.0); MEAN CELL VOLUME 89.5 fl (80-96); MEAN PLT VOLUME 6.9 fl (7.5-11.1); NEUTROPHILS 70.5 % (42.8-82.8); PLATELET COUNT 222 K/MM3 (134-434); RDW 12.9 % (11.6-15.6); WHITE BLOOD COUNT 8.7 K/mm3 (4.0-10.0)
[2017-03-21 11:03] LABS: ALBUMIN 3.8 g/dl (3.4-5.0); ANION GAP 10 (8-16); CALCIUM 8.9 mg/dL (8.5-10.1); CO2 21 mmol/L (21-32); CREATININE 0.8 mg/dL (0.55-1.02); GLUCOSE,RANDOM 159 mg/dL (74-106); MAGNESIUM 1.8 mg/dL (1.8-2.4); SGOT/AST 19 U/L (15-37); SGPT/ALT 47 U/L (12-78)
[2017-03-21 11:05] LABS: ALK PHOS 98 U/L (45-117); BILIRUBIN,TOTAL 0.3 mg/dL (0.2-1.0); TOT PROT 6.9 g/dl (6.4-8.2)
--- NOTE | 2017-03-21 12:51 | PN ---
Progress Note, Physician Chief Complaint: Ms Edouard complains of chronic back pain. No cp, sob, n/v. Still without bowel movement. - Current Medication List Current Medications: Active Medications Acetaminophen (Tylenol -) 325 mg PO Q6H PRN PRN Reason: PAIN Last Admin: 03/20/17 15:12 Dose: 325 mg Alprazolam (Xanax -) 1 mg PO BID [facility] Last Admin: 03/21/17 10:23 Dose: 1 mg Aspirin (Asa -) 81 mg PO DAILY [facility] Last Admin: 03/21/17 10:19 Dose: 81 mg Atorvastatin Calcium (Lipitor -) 40 mg PO HS [facility] Last Admin: 03/20/17 21:12 Dose: 40 mg Cholecalciferol (Vitamin D3 -) 400 unit PO DAILY [facility] Last Admin: 03/21/17 10:18 Dose: 400 unit Docusate Sodium (Colace -) 100 mg PO TID [facility] Escitalopram Oxalate (Lexapro -) 20 mg PO DAILY [facility] Last Admin: 03/21/17 10:18 Dose: 20 mg Gabapentin (Neurontin -) 800 mg PO TID [facility] Last Admin: 03/21/17 06:01 Dose: 800 mg Heparin Sodium (Porcine) (Heparin -) 5,000 unit SQ BID [facility] Last Admin: 03/21/17 10:19 Dose: 5,000 unit Sodium Chloride (1/2 Normal Saline) 1,000 mls @ 60 mls/hr IV ASDIR [facility] Last Admin: 03/21/17 01:42 Dose: 60 mls/hr Insulin Aspart (Novolog Vial Sliding Scale -) 1 vial SQ BIDAC [facility] PRN Reason: Protocol Last Admin: 03/21/17 06:00 Dose: Not Given Methylnaltrexone [place] (Relistor -) 12 mg SQ DAILY [facility] Last Admin: 03/21/17 10:29 Dose: 12 mg Oxycodone HCl (Roxicodone -) 5 mg PO Q8H PRN PRN Reason: PAIN Polyethylene Glycol (Miralax (For Daily Use) -) 17 gm PO BID [facility] Last Admin: 03/21/17 10:28 Dose: 17 gm Topiramate (Topamax -) 50 mg PO BID [facility] Last Admin: 03/21/17 10:18 Dose: 50 mg - Objective Vital Signs: Vital Signs Temperature 37.0 C 03/21/17 10:00 Pulse Rate 60 03/21/17 10:00 Respiratory Rate 18 03/21/17 10:00 Blood Pressure 100/65 03/21/17 10:00 O2 Sat by Pulse Oximetry (%) 98 03/20/17 09:00 Constitutional: Yes: Well Nourished, No Distress, Calm Cardiovascular: Yes: Regular Rate and Rhythm. No: Gallop, Murmur, Rub Respiratory: Yes: Regular, CTA Bilaterally. No: Rales, Rhonchi, Wheezes Gastrointestinal: Yes: Normal Bowel Sounds, Soft. No: Distention, Tenderness Extremities: Yes: WNL Edema: No Labs: CBC, BMP 03/21/17 10:00 03/21/17 10:00 INR, PTT INR 1.07 (0.82-1.09) 03/14/17 18:41 Problem List - Problems (1) Abdominal pain in female Code(s): R10.9 - UNSPECIFIED ABDOMINAL PAIN (2) Acute kidney injury (nontraumatic) Code(s): N17.9 - ACUTE KIDNEY FAILURE, UNSPECIFIED (3) CAD (coronary artery disease) Code(s): I25.10 - ATHSCL HEART DISEASE OF [place] CORONARY ARTERY W/O ANG PCTRS Qualifiers: Coronary Disease-Associated Artery/Lesion type: [place] artery [place] vs. transplanted heart: [place] heart Associated angina: without angina Qualified Code(s): I25.10 - Atherosclerotic heart disease of [place] coronary artery without angina pectoris (4) CHF (congestive heart failure), NYHA class I Code(s): I50.9 - HEART FAILURE, UNSPECIFIED Qualifiers: Congestive heart failure type: systolic Congestive heart failure chronicity: chronic Qualified Code(s): I50.22 - Chronic systolic (congestive ) heart failure (5) Constipation Code(s): K59.00 - CONSTIPATION, UNSPECIFIED Qualifiers: Constipation type: drug induced constipation Qualified Code(s): K59.03 - Drug induced constipation (6) Diabetes mellitus Code(s): E11.9 - TYPE 2 DIABETES MELLITUS WITHOUT COMPLICATIONS Qualifiers: Diabetes mellitus type: type 2 Diabetes mellitus complication status: with hyperglycemia Diabetes mellitus long-term insulin use: without terminal make up operator use Qualified Code(s): E11.65 - Type 2 diabetes mellitus with hyperglycemia; Z79.4 - assisted (current) use of insulin (7) Dysuria Code(s): R30.0 - DYSURIA Assessment/Plan (1) Dysuria Assessment/Plan: -ultrasound and urinalysis negative -no further work up needed Code(s): R10.9 - UNSPECIFIED ABDOMINAL PAIN (2) Acute kidney injury (nontraumatic) Assessment/Plan: -appreciate nephrology assistance -now at baseline -IVF per nephrology Code(s): N17.9 - ACUTE KIDNEY FAILURE, UNSPECIFIED (3) CAD (coronary artery disease) Assessment/Plan: -quiescent -continue home regimen Code(s): I25.10 - ATHSCL HEART DISEASE OF [place] CORONARY ARTERY W/O ANG PCTRS Qualifiers: Coronary Disease-Associated Artery/Lesion type: [place] artery [place] vs. transplanted heart: [place] heart Associated angina: without angina Qualified Code(s): I25.10 - Atherosclerotic heart disease of [place] coronary artery without angina pectoris (4) CHF (congestive heart failure), NYHA class I Assessment/Plan: -normally on lasix and aldactone -not in exacerbation -holding both currently Code(s): I50.9 - HEART FAILURE, UNSPECIFIED Qualifiers: Congestive heart failure type: systolic Congestive heart failure chronicity: chronic Qualified Code(s): I50.22 - Chronic systolic (congestive ) heart failure (5) Constipation Assessment/Plan: -continue relistor -add colace and miralax -if still does not have a bowel movement, consult GI Code(s): K59.00 - CONSTIPATION, UNSPECIFIED Qualifiers: Constipation type: drug induced constipation Qualified Code(s): K59.03 - Drug induced constipation (6) Diabetes mellitus Assessment/Plan: -endocrinology following and appreciate assistance Code(s): E11.9 - TYPE 2 DIABETES MELLITUS WITHOUT COMPLICATIONS Qualifiers: Diabetes mellitus type: type 2 Diabetes mellitus complication status: with hyperglycemia Diabetes mellitus terminal make up operator insulin use: without terminal make up operator use Qualified Code(s): E11.65 - Type 2 diabetes mellitus with hyperglycemia; Z79.4 - terminologist (current) use of insulin
[2017-03-21] MEDS: DOCUSATE SODIUM 100 MG CAPSULE (FP) PO SCH ×2 (13:50→21:25)
[2017-03-21] MEDS: oxyCODONE HCL 5 MG TABLET PO PRN ×2 (13:51→21:34)
--- NOTE | 2017-03-21 18:42 | PN ---
Progress Note (short form) - Note Progress Note: Renal follow up for NEYMAR Pt seen and examined at the bedside reports lower back pain which is chronic on IVF ate a little this am no sob, chest pain Vital Signs Temperature 98.6 F 03/21/17 14:35 Pulse Rate 60 03/21/17 14:35 Respiratory Rate 18 03/21/17 14:35 Blood Pressure 106/59 03/21/17 14:35 O2 Sat by Pulse Oximetry (%) 99 03/21/17 09:00 Intake & Output 03/18/17 03/19/17 03/20/17 03/21/17 23:59 23:59 23:59 23:59 Intake Total 1390 2060 1670 720 Output Total 500 1000 Balance 890 1060 1670 720 Gen: NAD, awake and alert CVS: RRR Lungs: CTA Abd: soft NT/ND Ext: No edema CBC, BMP 03/21/17 10:00 03/21/17 10:00 Current Medications Acetaminophen (Tylenol -) 325 mg PO Q6H PRN PRN Reason: PAIN Last Admin: 03/20/17 15:12 Dose: 325 mg Alprazolam (Xanax -) 1 mg PO BID [facility] Last Admin: 03/21/17 10:23 Dose: 1 mg Aspirin (Asa -) 81 mg PO DAILY [facility] Last Admin: 03/21/17 10:19 Dose: 81 mg Atorvastatin Calcium (Lipitor -) 40 mg PO HS [facility] Last Admin: 03/20/17 21:12 Dose: 40 mg Cholecalciferol (Vitamin D3 -) 400 unit PO DAILY [facility] Last Admin: 03/21/17 10:18 Dose: 400 unit Docusate Sodium (Colace -) 100 mg PO TID [facility] Last Admin: 03/21/17 13:50 Dose: 100 mg Escitalopram Oxalate (Lexapro -) 20 mg PO DAILY [facility] Last Admin: 03/21/17 10:18 Dose: 20 mg Gabapentin (Neurontin -) 800 mg PO TID [facility] Last Admin: 03/21/17 13:50 Dose: 800 mg Heparin Sodium (Porcine) (Heparin -) 5,000 unit SQ BID [facility] Last Admin: 03/21/17 10:19 Dose: 5,000 unit Sodium Chloride (1/2 Normal Saline) 1,000 mls @ 60 mls/hr IV ASDIR [facility] Last Admin: 03/21/17 01:42 Dose: 60 mls/hr Insulin Aspart (Novolog Vial Sliding Scale -) 1 vial SQ BIDAC [facility] PRN Reason: Protocol Last Admin: 03/21/17 16:43 Dose: Not Given Methylnaltrexone [place] (Relistor -) 12 mg SQ DAILY [facility] Last Admin: 03/21/17 10:29 Dose: 12 mg Oxycodone HCl (Roxicodone -) 5 mg PO Q8H PRN PRN Reason: PAIN Last Admin: 03/21/17 13:51 Dose: 5 mg Polyethylene Glycol (Miralax (For Daily Use) -) 17 gm PO BID [facility] Last Admin: 03/21/17 10:28 Dose: 17 gm Topiramate (Topamax -) 50 mg PO BID [facility] Last Admin: 03/21/17 10:18 Dose: 50 mg A/P 52 year old woman with PMhx of DM Type 2, Hypertension, CHF, Hyperlipidemia, Anxiety, Depression, Nephrolithiasis who presented with Abd pain with N/V and found to have acute kidney injury. #Acute Renal Failure (baseline Cr 0.5-0.6) Etiology likely related to hypovolemia +/- renal hypoprofusion in setting of ACEi Renal function improved and stable d/c IVF and trend BUN/Cr and urine output #Nephrolithiasis pt continue to report flank pain No evidence of obstruction on CT scan repeat US showed no obstructing stone #Abd pain LFTs within normal limits CT w/o evidence of diveticultis but not a contrast study UA and urine cutlure negative #Back pain pain control w/o nsaids if possible Thank you Med Chris DO
[2017-03-21] MEDS: ATORVASTATIN CA 40 MG TABLET (FP) PO SCH (21:24)
[2017-03-22] MEDS: DOCUSATE SODIUM 100 MG CAPSULE (FP) PO SCH ×3 (06:06→21:29)
[2017-03-22] MEDS: GABAPENTIN 400 MG CAPSULE (FP) PO SCH ×3 (06:06→21:29)
[2017-03-22] MEDS: oxyCODONE HCL 5 MG TABLET PO PRN ×3 (06:07→22:13)
[2017-03-22] MEDS: INSULIN SLIDING SCALE (NOVOLOG) 1 VIAL SQ SCH ×2 (06:09→17:35)
[2017-03-22] MEDS: HEPARIN NA (PORCINE) 5,000 UNITS/ML 1ML VIAL SQ SCH ×2 (10:13→21:29)
[2017-03-22] MEDS: TOPIRAMATE 25 MG TABLET (FP) PO SCH ×2 (10:13→21:30)
[2017-03-22] MEDS: ESCITALOPRAM OXALATE 20 MG TABLET (FP) PO SCH (10:13)
[2017-03-22] MEDS: CHOLECALCIFEROL (VITAMIN D3) 400 UNIT TABLET (FP) PO SCH (10:13)
[2017-03-22] MEDS: ASPIRIN 81 MG CHEWABLE TABLETS PO SCH (10:13)
[2017-03-22] MEDS: ALPRAZolam 2 MG TABLET PO SCH ×2 (10:14→21:30)
[2017-03-22] MEDS: POLYETHYLENE GLYCOL 3350 119 GM BTL PO SCH ×2 (10:14→21:29)
[2017-03-22] MEDS: Methylnaltrexone Bromide 12 MG/0.6 ML KIT SQ SCH (10:15)
[2017-03-22] MEDS: SODIUM CHLORIDE 0.45% 1,000 ML IV SCH ×2 (10:26→23:45)
[2017-03-22 13:31] LABS: ANION GAP 6 (8-16); CALCIUM 9.5 mg/dL (8.5-10.1); CO2 28 mmol/L (21-32); CREATININE 0.8 mg/dL (0.55-1.02); GLUCOSE,RANDOM 107 mg/dL (74-106)
[2017-03-22] MEDS: ACETAMINOPHEN 325 MG TABLET (FP) PO PRN ×2 (14:13→22:14)
--- NOTE | 2017-03-22 15:00 | PN ---
Progress Note, Physician Chief Complaint: Ms Edouard complains of abdominal pain. No cp, sob, n/v. Still without bowel movement. - Current Medication List Current Medications: Active Medications Acetaminophen (Tylenol -) 325 mg PO Q6H PRN PRN Reason: PAIN Last Admin: 03/22/17 14:13 Dose: 325 mg Alprazolam (Xanax -) 1 mg PO BID [facility] Last Admin: 03/22/17 10:14 Dose: 1 mg Aspirin (Asa -) 81 mg PO DAILY [facility] Last Admin: 03/22/17 10:13 Dose: 81 mg Atorvastatin Calcium (Lipitor -) 40 mg PO HS [facility] Last Admin: 03/21/17 21:24 Dose: 40 mg Cholecalciferol (Vitamin D3 -) 400 unit PO DAILY [facility] Last Admin: 03/22/17 10:13 Dose: 400 unit Docusate Sodium (Colace -) 100 mg PO TID [facility] Last Admin: 03/22/17 14:13 Dose: 100 mg Escitalopram Oxalate (Lexapro -) 20 mg PO DAILY [facility] Last Admin: 03/22/17 10:13 Dose: 20 mg Gabapentin (Neurontin -) 800 mg PO TID [facility] Last Admin: 03/22/17 14:13 Dose: 800 mg Heparin Sodium (Porcine) (Heparin -) 5,000 unit SQ BID [facility] Last Admin: 03/22/17 10:13 Dose: 5,000 unit Sodium Chloride (1/2 Normal Saline) 1,000 mls @ 60 mls/hr IV ASDIR [facility] Last Admin: 03/22/17 10:26 Dose: 60 mls/hr Insulin Aspart ([facility]olog Vial Sliding Scale -) [facility] Reason: Protocol Last Admin: 03/22/17 06:09 Dose: Not Given Methylnaltrexone [place] (Relistor -) 12 mg SQ DAILY [facility] Last Admin: 03/22/17 10:15 Dose: 12 mg Oxycodone HCl (Roxicodone -) 5 mg PO Q8H PRN PRN Reason: PAIN Last Admin: 03/22/17 14:14 Dose: 5 mg Polyethylene Glycol (Miralax (For Daily Use) -) 17 gm PO BID [facility] Last Admin: 03/22/17 10:14 Dose: 17 gm Topiramate (Topamax -) 50 mg PO BID [facility] Last Admin: 03/22/17 10:13 Dose: 50 mg - Objective Vital Signs: Vital Signs Temperature 36.8 C 03/22/17 04:00 Pulse Rate 51 L 03/22/17 04:00 Respiratory Rate 18 03/22/17 04:00 Blood Pressure 111/47 03/22/17 04:00 O2 Sat by Pulse Oximetry (%) 98 03/21/17 21:00 Constitutional: Yes: Well Nourished, No Distress, Calm Cardiovascular: Yes: Regular Rate and Rhythm. No: Gallop, Murmur, Rub Respiratory: Yes: Regular, CTA Bilaterally. No: Rales, Rhonchi, Wheezes Gastrointestinal: Yes: Normal Bowel Sounds, Soft. No: Distention, Tenderness Extremities: Yes: WNL Edema: No Labs: CBC, BMP 03/21/17 10:00 03/22/17 12:35 INR, PTT INR 1.07 (0.82-1.09) 03/14/17 18:41 Problem List - Problems (1) Abdominal pain in female Code(s): R10.9 - UNSPECIFIED ABDOMINAL PAIN (2) Acute kidney injury (nontraumatic) Code(s): N17.9 - ACUTE KIDNEY FAILURE, UNSPECIFIED (3) CAD (coronary artery disease) Code(s): I25.10 - ATHSCL HEART DISEASE OF [place] CORONARY ARTERY W/O ANG PCTRS Qualifiers: Coronary Disease-Associated Artery/Lesion type: [place] artery [place] vs. transplanted heart: [place] heart Associated angina: without angina Qualified Code(s): I25.10 - Atherosclerotic heart disease of [place] coronary artery without angina pectoris (4) CHF (congestive heart failure), NYHA class I Code(s): I50.9 - HEART FAILURE, UNSPECIFIED Qualifiers: Congestive heart failure type: systolic Congestive heart failure chronicity: chronic Qualified Code(s): I50.22 - Chronic systolic (congestive ) heart failure (5) Constipation Code(s): K59.00 - CONSTIPATION, UNSPECIFIED Qualifiers: Constipation type: drug induced constipation Qualified Code(s): K59.03 - Drug induced constipation (6) Diabetes mellitus Code(s): E11.9 - TYPE 2 DIABETES MELLITUS WITHOUT COMPLICATIONS Qualifiers: Diabetes mellitus type: type 2 Diabetes mellitus complication status: with hyperglycemia Diabetes mellitus [facility] insulin use: without adjunct faculty for medical terminology use Qualified Code(s): E11.65 - Type 2 diabetes mellitus with hyperglycemia; Z79.4 - ad terminal makeup operator (current) use of insulin (7) Dysuria Code(s): R30.0 - DYSURIA Assessment/Plan (1) Dysuria Assessment/Plan: -ultrasound and urinalysis negative -no further work up needed Code(s): R10.9 - UNSPECIFIED ABDOMINAL PAIN (2) Acute kidney injury (nontraumatic) Assessment/Plan: -appreciate nephrology assistance -now at baseline -IVF per nephrology Code(s): N17.9 - ACUTE KIDNEY FAILURE, UNSPECIFIED (3) CAD (coronary artery disease) Assessment/Plan: -quiescent -continue home regimen Code(s): I25.10 - ATHSCL HEART DISEASE OF [place] CORONARY ARTERY W/O ANG PCTRS Qualifiers: Coronary Disease-Associated Artery/Lesion type: [place] artery [place] vs. transplanted heart: [place] heart Associated angina: without angina Qualified Code(s): I25.10 - Atherosclerotic heart disease of [place] coronary artery without angina pectoris (4) CHF (congestive heart failure), NYHA class I Assessment/Plan: -normally on lasix and aldactone -not in exacerbation -holding both currently Code(s): I50.9 - HEART FAILURE, UNSPECIFIED Qualifiers: Congestive heart failure type: systolic Congestive heart failure chronicity: chronic Qualified Code(s): I50.22 - Chronic systolic (congestive ) heart failure (5) Constipation Assessment/Plan: -continue relistor, miralax, and colace -add lactulose qid Code(s): K59.00 - CONSTIPATION, UNSPECIFIED Qualifiers: Constipation type: drug induced constipation Qualified Code(s): K59.03 - Drug induced constipation (6) Diabetes mellitus Assessment/Plan: -endocrinology following and appreciate assistance Code(s): E11.9 - TYPE 2 DIABETES MELLITUS WITHOUT COMPLICATIONS Qualifiers: Diabetes mellitus type: type 2 Diabetes mellitus complication status: with hyperglycemia Diabetes mellitus adjunct faculty for medical terminology insulin use: without adjunct faculty for medical terminology use Qualified Code(s): E11.65 - Type 2 diabetes mellitus with hyperglycemia; Z79.4 - ad terminal makeup operator (current) use of insulin
--- NOTE | 2017-03-22 16:54 | PN ---
Progress Note (short form) - Note Progress Note: Renal follow up for NEYMAR Pt seen and examined at the bedside ate better today remains on IVF has not had a BM, denies any abd pain, N/V making urine Vital Signs Temperature 98.5 F 03/22/17 14:13 Pulse Rate 61 03/22/17 14:13 Respiratory Rate 18 03/22/17 14:13 Blood Pressure 102/61 03/22/17 14:13 O2 Sat by Pulse Oximetry (%) 98 03/22/17 09:00 Intake & Output 03/19/17 03/20/17 03/21/17 03/22/17 23:59 23:59 23:59 23:59 Intake Total 2060 1670 2350 1110 Output Total 1000 Balance 1060 1670 2350 1110 Gen: NAD, awake and alert CVS: RRR Lungs: CTA Abd: soft NT/ND Ext: No edema CBC, BMP 03/21/17 10:00 03/22/17 12:35 Current Medications Acetaminophen (Tylenol -) 325 mg PO Q6H PRN PRN Reason: PAIN Last Admin: 03/22/17 14:13 Dose: 325 mg Alprazolam (Xanax -) 1 mg PO BID [facility] Last Admin: 03/22/17 10:14 Dose: 1 mg Aspirin (Asa -) 81 mg PO DAILY [facility] Last Admin: 03/22/17 10:13 Dose: 81 mg Atorvastatin Calcium (Lipitor -) 40 mg PO HS [facility] Last Admin: 03/21/17 21:24 Dose: 40 mg Cholecalciferol (Vitamin D3 -) 400 unit PO DAILY [facility] Last Admin: 03/22/17 10:13 Dose: 400 unit Docusate Sodium (Colace -) 100 mg PO TID [facility] Last Admin: 03/22/17 14:13 Dose: 100 mg Escitalopram Oxalate (Lexapro -) 20 mg PO DAILY [facility] Last Admin: 03/22/17 10:13 Dose: 20 mg Gabapentin (Neurontin -) 800 mg PO TID [facility] Last Admin: 03/22/17 14:13 Dose: 800 mg Heparin Sodium (Porcine) (Heparin -) 5,000 unit SQ BID [facility] Last Admin: 03/22/17 10:13 Dose: 5,000 unit Sodium Chloride (1/2 Normal Saline) 1,000 mls @ 60 mls/hr IV ASDIR [facility] Last Admin: 03/22/17 10:26 Dose: 60 mls/hr Insulin Aspart (Novolog Vial Sliding Scale -) 1 vial SQ BIDAC [facility] PRN Reason: Protocol Last Admin: 03/22/17 06:09 Dose: Not Given Methylnaltrexone [place] (Relistor -) 12 mg SQ DAILY [facility] Last Admin: 03/22/17 10:15 Dose: 12 mg Oxycodone HCl (Roxicodone -) 5 mg PO Q8H PRN PRN Reason: PAIN Last Admin: 03/22/17 14:14 Dose: 5 mg Polyethylene Glycol (Miralax (For Daily Use) -) 17 gm PO BID [facility] Last Admin: 03/22/17 10:14 Dose: 17 gm Topiramate (Topamax -) 50 mg PO BID [facility] Last Admin: 03/22/17 10:13 Dose: 50 mg A/P 52 year old woman with PMhx of DM Type 2, Hypertension, CHF, Hyperlipidemia, Anxiety, Depression, Nephrolithiasis who presented with Abd pain with N/V and found to have acute kidney injury. #Acute Renal Failure (baseline Cr 0.5-0.6) Etiology likely related to hypovolemia +/- renal hypoprofusion in setting of ACEi d/c IVF today and trend BUN/Cr #Nephrolithiasis pt continue to report flank pain No evidence of obstruction on CT scan repeat US showed no obstructing stone #Abd pain LFTs within normal limits CT w/o evidence of diveticultis but not a contrast study UA and urine culture negative #Back pain pain control w/o nsaids if possible #Constipation stool softners as per PMD Thank you Med Chris DO
[2017-03-22] MEDS: LACTULOSE 20 GM/30 ML UDC (FOR ORAL USE ONLY) PO SCH ×2 (17:36→21:29)
[2017-03-22] MEDS: ATORVASTATIN CA 40 MG TABLET (FP) PO SCH (21:29)
[2017-03-23] MEDS: SODIUM CHLORIDE 0.45% 1,000 ML IV SCH (05:00)
[2017-03-23] MEDS: GABAPENTIN 400 MG CAPSULE (FP) PO SCH ×2 (06:36→15:20)
[2017-03-23] MEDS: INSULIN SLIDING SCALE (NOVOLOG) 1 VIAL SQ SCH (06:36)
[2017-03-23] MEDS: DOCUSATE SODIUM 100 MG CAPSULE (FP) PO SCH ×2 (06:36→15:20)
[2017-03-23 07:57] LABS: BASOPHIL 0.3 % (0-2.0); EOSINOPHIL 3.7 % (0-4.5); MCH 31.1 pg (25.7-33.7); MCHC 34.5 g/dl (32.0-36.0); MEAN CELL VOLUME 90.3 fl (80-96); MEAN PLT VOLUME 7.4 fl (7.5-11.1); PLATELET COUNT 221 K/MM3 (134-434); RDW 13.2 % (11.6-15.6); WHITE BLOOD COUNT 8.5 K/mm3 (4.0-10.0)
[2017-03-23 08:25] LABS: ANION GAP 10 (8-16); CO2 24 mmol/L (21-32); GLUCOSE,RANDOM 99 mg/dL (74-106)
[2017-03-23 08:28] LABS: CREATININE 0.8 mg/dL (0.55-1.02); PHOSPHOROUS 5.2 mg/dL (2.5-4.9)
[2017-03-23] MEDS: ALPRAZolam 2 MG TABLET PO SCH (09:24)
[2017-03-23] MEDS: LACTULOSE 20 GM/30 ML UDC (FOR ORAL USE ONLY) PO SCH ×2 (09:24→15:20)
[2017-03-23] MEDS: CHOLECALCIFEROL (VITAMIN D3) 400 UNIT TABLET (FP) PO SCH (09:25)
[2017-03-23] MEDS: ESCITALOPRAM OXALATE 20 MG TABLET (FP) PO SCH (09:25)
[2017-03-23] MEDS: TOPIRAMATE 25 MG TABLET (FP) PO SCH (09:25)
[2017-03-23] MEDS: HEPARIN NA (PORCINE) 5,000 UNITS/ML 1ML VIAL SQ SCH (09:25)
[2017-03-23] MEDS: ASPIRIN 81 MG CHEWABLE TABLETS PO SCH (09:25)
[2017-03-23] MEDS: POLYETHYLENE GLYCOL 3350 119 GM BTL PO SCH (09:26)
[2017-03-23] MEDS: oxyCODONE HCL 5 MG TABLET PO PRN (09:48)
[2017-03-23] MEDS: ACETAMINOPHEN 325 MG TABLET (FP) PO PRN (09:49)
--- NOTE | 2017-03-23 12:13 | DS ---
Physical Examination Vital Signs: Vital Signs Temperature 36.7 C 03/23/17 06:00 Pulse Rate 53 L 03/23/17 06:00 Respiratory Rate 18 03/23/17 06:00 Blood Pressure 119/67 03/23/17 06:00 O2 Sat by Pulse Oximetry (%) 98 03/22/17 09:00 Constitutional: Yes: Well Nourished, No Distress, Calm Cardiovascular: Yes: Regular Rate and Rhythm. No: Gallop, Murmur, Rub Respiratory: Yes: Regular, CTA Bilaterally. No: Rales, Rhonchi, Wheezes Gastrointestinal: Yes: Normal Bowel Sounds, Soft. No: Distention, Tenderness Extremities: Yes: WNL Edema: No Labs: CBC, BMP 03/23/17 06:47 03/23/17 06:47 Discharge Summary Reason For Visit: RENAL INSUFFICIENCY ACUTE KIDNEY INJURY Current Active Problems Abdominal pain in female (Acute) Acute kidney injury (nontraumatic) (Acute) CAD (coronary artery disease) (Acute) CHF (congestive heart failure), NYHA class I (Acute) Constipation (Acute) DVT prophylaxis (Acute) Dehydration (Acute) Diabetes mellitus (Acute) Dizziness (Acute) Dysuria (Acute) Elbow pain, left (Acute) Hypotension (Acute) Hypotension due to drugs (Acute) Lightheadedness (Acute) Neurocardiogenic syncope (Acute) Orthostatic hypotension (Acute) Renal insufficiency (Acute) Renal insufficiency, mild (Acute) Restless leg syndrome (Acute) Shortness of breath (Acute) Shortness of breath at rest (Acute) Syncope (Acute) Chronic left ventricular systolic dysfunction (Chronic) Depression (Chronic) Single implantable cardioverter-defibrillator (ICD) in situ (Chronic) Status post insertion of drug-eluting stent into left anterior descending artery for coronary artery disease (Chronic) Status post myocardial infarction of anterior wall (Chronic) Hospital Course: (1) Abdominal pain in female Code(s): R10.9 - UNSPECIFIED ABDOMINAL PAIN (2) Acute kidney injury (nontraumatic) Code(s): N17.9 - ACUTE KIDNEY FAILURE, UNSPECIFIED (3) CAD (coronary artery disease) Code(s): I25.10 - ATHSCL HEART DISEASE OF [place] CORONARY ARTERY W/O ANG PCTRS Qualifiers: Coronary Disease-Associated Artery/Lesion type: [place] artery [place] vs. transplanted heart: [place] heart Associated angina: without angina Qualified Code(s): I25.10 - Atherosclerotic heart disease of [place] coronary artery without angina pectoris (4) CHF (congestive heart failure), NYHA class I Code(s): I50.9 - HEART FAILURE, UNSPECIFIED Qualifiers: Congestive heart failure type: systolic Congestive heart failure chronicity: chronic Qualified Code(s): I50.22 - Chronic systolic (congestive ) heart failure (5) Constipation Code(s): K59.00 - CONSTIPATION, UNSPECIFIED Qualifiers: Constipation type: drug induced constipation Qualified Code(s): K59.03 - Drug induced constipation (6) Diabetes mellitus Code(s): E11.9 - TYPE 2 DIABETES MELLITUS WITHOUT COMPLICATIONS Qualifiers: Diabetes mellitus type: type 2 Diabetes mellitus complication status: with hyperglycemia Diabetes mellitus fpc insulin use: without fpc use Qualified Code(s): E11.65 - Type 2 diabetes mellitus with hyperglycemia; Z79.4 - equipment operator intermodal yard (current) use of insulin (7) Dysuria Code(s): R30.0 - DYSURIA Ms Edouard is a 52 year old female who comes in with abdominal pain and was found to have constipation causing anorexia with NEYMAR secondary to dehydration and hypoglycemia secondary to decreased oral intake. She was admitted and seen by endocrine and nephrology. Her diuretics was held and she was hydrated. Her renal function improved and her hypoglycemia improved as well. She was found to have severe constipation and started on relistor. After 3 days she was not having a bowel movement miralax and colace was added. She still did not have a bowel movement and repeat x-ray was performed showing worsening constipation. Lactulose was added to her regimen and she had a bowel movement. She is feeling better and safe for discharge home. Patient was instructed that she should always take miralax and colace as she has history of constipation worsened by chronic narcotics. She also will be given a prescription for prn lactulose if she remains constipated on this regimen. She is currently safe for discharge with follow up. 36 minutes spent in preparation of this discharge Condition: Stable - Instructions Diet, Activity, Other Instructions: resume previous diet and activity. Referrals: Sandra Barry MD [Primary Care Provider] - Med Chris MD [Staff Physician] - Disposition: HOME - Home Medications Comprehensive Discharge Medication List: Ambulatory Orders Alprazolam [Xanax] 1 mg PO BID 04/15/16 Aspirin [ASA -] 81 mg PO DAILY 04/15/16 Atorvastatin Ca [Lipitor] 40 mg PO HS 04/15/16 Cholecalciferol (Vitamin D3) [Vitamin D -] 400 unit PO DAILY 04/15/16 Escitalopram Oxalate [Lexapro -] 20 mg PO DAILY 04/15/16 Gabapentin 800 mg PO TID 04/15/16 Topiramate 50 mg PO BID 04/15/16 Oxycodone HCl/Acetaminophen [Percocet 5-325 mg Tablet] 1 tab PO Q6H 05/21/16 Zolpidem Tartrate [Ambien] 10 mg PO HS 05/21/16 Lisinopril [Prinivil] 2.5 mg PO DAILY@1200 #30 tablet 05/31/16 Spironolactone [Aldactone -] 25 mg PO HS #30 tablet 05/31/16 Carvedilol [Coreg -] 6.25 mg PO BID #60 tablet 02/02/17 Glimepiride [Amaryl -] 2 mg PO DAILY #30 tablet 02/02/17 Metformin HCl [Glucophage] 1,000 mg PO DAILY #20 tablet 02/02/17 Docusate Sodium [Colace -] 100 mg PO DAILY #30 cap 03/23/17 Lactulose (Oral Use) [Cephulac -] 20 gm PO TID PRN #1 bottle 03/23/17 Polyethylene Glycol 3350 [Miralax 119 gm Btl -] 17 gm PO DAILY #1 bottle
[2017-03-23 14:17] VITALS: BP 118/66; PULSE 70; TEMP 97.3
--- NOTE | 2017-03-23 15:01 | PN ---
Progress Note (short form) - Note Progress Note: Feels good Denies any complaints BGM <120 No hypos Vital Signs Period Temp Pulse Resp BP Sys/Riley Pulse Ox Last 24 Hr 97.3 F-98.2 F 52-70 18-20 90-119/48-67 PE: AOx3 Neck: Supple HEENT: PERRL, EOMI Lungs: CTA CVS: S1S2 Abd: NT, BS present EXt: No edema Neuro: No focal deficit CMP Sodium 143 mmol/L (136-145) 03/23/17 06:47 Potassium 4.3 mmol/L (3.5-5.1) 03/23/17 06:47 Chloride 109 mmol/L (98-107) H 03/23/17 06:47 Carbon Dioxide 24 mmol/L (21-32) 03/23/17 06:47 Anion Gap 10 (8-16) 03/23/17 06:47 BUN 13 mg/dL (7-18) 03/23/17 06:47 Creatinine 0.8 mg/dL (0.55-1.02) 03/23/17 06:47 Creat Clearance w eGFR > 60 (>60) 03/21/17 10:00 POC Glucometer 120 UNITS (()) 03/23/17 05:56 Random Glucose 99 mg/dL (74-106) 03/23/17 06:47 Hemoglobin A1c % 7.9 % (4.8-6.0) H D 03/16/17 06:15 Lactic Acid 1.1 mmol/L (0.4-2.0) 03/14/17 19:30 Calcium 9.0 mg/dL (8.5-10.1) 03/23/17 06:47 Phosphorus 5.2 mg/dL (2.5-4.9) H D 03/23/17 06:47 Magnesium 2.0 mg/dL (1.8-2.4) 03/23/17 06:47 Total Bilirubin 0.3 mg/dL (0.2-1.0) D 03/21/17 10:00 AST 19 U/L (15-37) D 03/21/17 10:00 ALT 47 U/L (12-78) 03/21/17 10:00 Alkaline Phosphatase 98 U/L (45-117) 03/21/17 10:00 Creatine Kinase 37 IU/L (26-192) 03/14/17 19:30 Troponin I < 0.02 ng/ml (0.00-0.05) 03/14/17 19:30 Total Protein 6.9 g/dl (6.4-8.2) 03/21/17 10:00 Albumin 3.8 g/dl (3.4-5.0) 03/21/17 10:00 Lipase 216 U/L (73-393) 03/14/17 19:30 Current Medications Generic Name Dose Route Start Last Admin Trade Name Freantoine PRN Reason Stop Dose Admin Acetaminophen 325 mg 03/15/17 05:01 03/23/17 09:49 Tylenol - PO 325 mg Q6H PRN Administration PAIN Alprazolam 1 mg 03/15/17 10:00 03/23/17 09:24 Xanax - PO 1 mg BID [facility] Administration Aspirin 81 mg 03/15/17 10:00 03/23/17 09:25 Asa - PO 81 mg DAILY [facility] Administration Atorvastatin Calcium 40 mg 03/15/17 22:00 03/22/17 21:29 Lipitor - PO 40 mg HS [facility] Administration Cholecalciferol 400 unit 03/15/17 10:00 03/23/17 09:25 Vitamin D3 - PO 400 unit DAILY [facility] Administration Docusate Sodium 100 mg 03/21/17 14:00 03/23/17 06:36 Colace - PO 100 mg TID [facility] Administration Escitalopram Oxalate 20 mg 03/15/17 10:00 03/23/17 09:25 Lexapro - PO 20 mg DAILY [facility] Administration Gabapentin 800 mg 03/15/17 06:00 03/23/17 06:36 Neurontin - PO 800 mg TID [facility] Administration Heparin Sodium (Porcine) 5,000 unit 03/15/17 10:00 03/23/17 09:25 Heparin - SQ 5,000 unit BID [facility] Administration Sodium Chloride 1,000 mls @ 60 mls/hr 03/17/17 20:15 03/23/17 05:00 1/2 Normal Saline IV 60 mls/hr ASDIR [facility] Administration Insulin Aspart 1 vial 03/20/17 16:30 03/23/17 06:36 Novolog Vial Sliding Scale - SQ Not Given BIDAC [facility] Protocol Lactulose 20 gm 03/22/17 18:00 03/23/17 09:24 Cephulac (Oral Use) PO 20 gm QID [facility] Administration Methylnaltrexone [place] 12 mg 03/16/17 11:00 03/22/17 10:15 Relistor - SQ 12 mg DAILY [facility] Administration Oxycodone HCl 5 mg 03/21/17 13:00 03/23/17 09:48 Roxicodone - PO 5 mg Q8H PRN Administration PAIN Polyethylene Glycol 17 gm 03/21/17 10:00 03/23/17 09:26 Miralax (For Daily Use) - PO 17 gm BID [facility] Administration Topiramate 50 mg 03/15/17 10:00 03/23/17 09:25 Topamax - PO 50 mg BID [facility] Administration AP: DM Hypoglycemia: resolved Contstipation Abd Pain Renal stone NEYMAR; resolved Discussed with patient to not take Metformin or Glimepiride at home for now. May restart Metformin once blood sugar is >150. F/U in office next week. To call me at [phone] with any questions or if blood sugar >200s. Problem List - Problems (1) Abdominal pain in female Code(s): R10.9 - UNSPECIFIED ABDOMINAL PAIN (2) CHF (congestive heart failure), NYHA class I Code(s): I50.9 - HEART FAILURE, UNSPECIFIED Qualifiers: Congestive heart failure type: systolic Congestive heart failure chronicity: chronic Qualified Code(s): I50.22 - Chronic systolic (congestive ) heart failure (3) Diabetes mellitus Code(s): E11.9 - TYPE 2 DIABETES MELLITUS WITHOUT COMPLICATIONS Qualifiers: Diabetes mellitus type: type 2 Diabetes mellitus complication status: with hyperglycemia Diabetes mellitus predatory animal exterminator insulin use: without predatory animal exterminator use Qualified Code(s): E11.65 - Type 2 diabetes mellitus with hyperglycemia; Z79.4 - bed bug exterminator (current) use of insulin
[2017-03-23] MEDS: Methylnaltrexone Bromide 12 MG/0.6 ML KIT SQ SCH (15:20)
--- NOTE | 2017-03-23 16:09 | PN ---
Progress Note (short form) - Note Progress Note: Renal follow up for NEYMAR Pt seen and examined at the bedside report feeling about the same appetite is still poor o n/v/d good urine production Vital Signs Temperature 97.3 F L 03/23/17 14:00 Pulse Rate 70 03/23/17 14:00 Respiratory Rate 20 03/23/17 14:00 Blood Pressure 118/66 03/23/17 14:00 O2 Sat by Pulse Oximetry (%) 97 03/23/17 09:00 Intake & Output 03/20/17 03/21/17 03/22/17 03/23/17 23:59 23:59 23:59 23:59 Intake Total 1670 2350 2290 950 Balance 1670 2350 2290 950 Gen: NAD, awake and alert CVS: RRR Lungs: CTA Abd: soft NT/ND Ext: No edema CBC, BMP 03/23/17 06:47 03/23/17 06:47 Current Medications Acetaminophen (Tylenol -) 325 mg PO Q6H PRN PRN Reason: PAIN Last Admin: 03/23/17 09:49 Dose: 325 mg Alprazolam (Xanax -) 1 mg PO BID [facility] Last Admin: 03/23/17 09:24 Dose: 1 mg Aspirin (Asa -) 81 mg PO DAILY [facility] Last Admin: 03/23/17 09:25 Dose: 81 mg Atorvastatin Calcium (Lipitor -) 40 mg PO HS [facility] Last Admin: 03/22/17 21:29 Dose: 40 mg Cholecalciferol (Vitamin D3 -) 400 unit PO DAILY [facility] Last Admin: 03/23/17 09:25 Dose: 400 unit Docusate Sodium (Colace -) 100 mg PO TID [facility] Last Admin: 03/23/17 15:20 Dose: 100 mg Escitalopram Oxalate (Lexapro -) 20 mg PO DAILY [facility] Last Admin: 03/23/17 09:25 Dose: 20 mg Gabapentin (Neurontin -) 800 mg PO TID [facility] Last Admin: 03/23/17 15:20 Dose: 800 mg Heparin Sodium (Porcine) (Heparin -) 5,000 unit SQ BID [facility] Last Admin: 03/23/17 09:25 Dose: 5,000 unit Sodium Chloride (1/2 Normal Saline) 1,000 mls @ 60 mls/hr IV ASDIR [facility] Last Admin: 03/23/17 05:00 Dose: 60 mls/hr Insulin Aspart (Novolog Vial Sliding Scale -) 1 vial SQ BIDAC [facility] PRN Reason: Protocol Last Admin: 03/23/17 06:36 Dose: Not Given Lactulose (Cephulac (Oral Use)) 20 gm PO QID [facility] Last Admin: 03/23/17 15:20 Dose: 20 gm Methylnaltrexone [place] (Relistor -) 12 mg SQ DAILY [facility] Last Admin: 03/23/17 15:20 Dose: 12 mg Oxycodone HCl (Roxicodone -) 5 mg PO Q8H PRN PRN Reason: PAIN Last Admin: 03/23/17 09:48 Dose: 5 mg Polyethylene Glycol (Miralax (For Daily Use) -) 17 gm PO BID [facility] Last Admin: 03/23/17 09:26 Dose: 17 gm Topiramate (Topamax -) 50 mg PO BID [facility] Last Admin: 03/23/17 09:25 Dose: 50 mg A/P 52 year old woman with PMhx of DM Type 2, Hypertension, CHF, Hyperlipidemia, Anxiety, Depression, Nephrolithiasis who presented with Abd pain with N/V and found to have acute kidney injury. #Acute Renal Failure (baseline Cr 0.5-0.6) Renal function is improved and stable at numbers sightly above her baseline no acidosis, hyperkalemia or volume overload no obstruction see on imaging of kidneys appears evolemic at this time recommend follow up with PMD and repeat labs in 1-2 weeks upon discharge Thank you Med Chris DO
== END 2017-03-23 16:52 | disposition home or self-care (01) | DRG 683 ==
LOC: JER 17:58 → JERBED 03-15 01:01 → J5S 03-15 03:43
PROVIDERS: ADMIT Internal Medicine; ATTEND Internal Medicine
DX: N17.9 Acute kidney failure, unspecified (principal); I50.22 Chronic systolic (congestive) heart failure; J44.9 Chronic obstructive pulmonary disease, unspecified; E78.5 Hyperlipidemia, unspecified; F32.9 Major depressive disorder, single episode, unspecified; F41.9 Anxiety disorder, unspecified; I25.2 Old myocardial infarction; Z95.5 Presence of coronary angioplasty implant and graft; Z95.0 Presence of cardiac pacemaker; Z87.891 Personal history of nicotine dependence; E11.649 Type 2 diabetes mellitus with hypoglycemia without coma; N20.0 Calculus of kidney; N39.3 Stress incontinence (female) (male); K59.00 Constipation, unspecified; I25.10 Atherosclerotic heart disease of native coronary artery without angina pectoris; R30.0 Dysuria; T40.2X5A Adverse effect of other opioids, initial encounter; Y92.230 Patient room in hospital as the place of occurrence of the external cause
CPT/HCPCS: 36415; 74020-TC; 74176-TC; 76775-TC; 80048; 80053; 81003; 82570; 83036; 83605; 83690; 83735; 84100; 84156; 84300; 84484; 84540; 85025; 85610; 87040; 87086; 93005; 93010; 99284-25; J1644

== ENCOUNTER 2017-05-19 17:03 | Inpatient (IN) | payer OTHER ==
--- NOTE | 2017-05-19 17:08 | PDOC ---
Rapid Medical Evaluation Time Seen by Provider: 05/19/17 17:04 Medical Evaluation: Allergies Allergy/AdvReac Type Severity Reaction Status Date / Time No Known Allergies Allergy Verified 03/14/17 18:03 05/19/17 17:07 I have performed a brief in-person evaluation of this patient. The patient presents with a chief complaint of: R low back pain and lower abd pain 9/10 x "weeks", significant PMH Pertinent physical exam findings: b/l CVA tenderness I have ordered the following: EKG, labs, UA, UC The patient will proceed to the ED for further evaluation. 05/19/17 17:12
[2017-05-19 18:03] LABS: BASOPHIL 0.4 % (0-2.0); EOSINOPHIL 5.4 % (0-4.5); MCH 31.4 pg (25.7-33.7); MCHC 34.4 g/dl (32.0-36.0); MEAN CELL VOLUME 91.1 fl (80-96); MEAN PLT VOLUME 7.7 fl (7.5-11.1); NEUTROPHILS 69.1 % (42.8-82.8); PLATELET COUNT 252 K/MM3 (134-434); WHITE BLOOD COUNT 10.6 K/mm3 (4.0-10.0)
[2017-05-19 18:05] LABS: URINE APPEARANCE CLOUDY; URINE BLOOD NEGATIVE (NEGATIVE); URINE COLOR AMBER; URINE GLUCOSE (UA) NEGATIVE (NEGATIVE); URINE KETONE NEGATIVE (NEGATIVE); URINE NITRITE NEGATIVE (NEGATIVE); URINE PROTEIN 1+ (NEGATIVE); URINE UROBILINOGEN 4.0 E.U/dl mg/dL (0.2-1.0)
--- NOTE | 2017-05-19 18:22 | PDOC ---
History of Present Illness - General History Source: Patient, Old Records Exam Limitations: No Limitations - History of Present Illness Initial Comments: 05/19/17 18:32 The patient is a 52 year old female, with a significant past medical history of CAD cardiac stent 2010/, [place], CHF, COPD, HTN, HLD, kidney stents, kidney stones, stress incontinence, anorexia, anxiety, depression, Renal insufficiency, diverituclitis and ectopic , who presents to the emergency department with right flank pain for the past 2 weeks. She reports that her pain ranges from mild to moderate, with radiation across her abdomen and to her right groin. She denies any modifying factors. She reports nausea and chills associated with her chief complaint. She reports that her last bowel movement was yesterday. The patient was last in the ED 2 months ago for NEYMAR and dehydration. She has a history of anorexia and reports that at times she does not want to drink or eat, which has been occurring for the past 4 days. She recently had a UTI and was prescribed antibiotics (Cipro) for 10 days which resolved the issue. The patient denies chest pain, shortness of breath, headache and dizziness. Denies fever, vomit, diarrhea and constipation. Denies dysuria, frequency, urgency and hematuria. Allergies: None Past surgical history: Cardiac cath, stent, ppm/aicd Social history: No alcohol. Quit smoking 18 months ago. <Samuel Flores - Last Filed: 05/19/17 18:34> <Alison Zaragoza - Last Filed: 05/23/17 09:22> - General Chief Complaint: Pain, Acute Stated Complaint: STOMACH PAIN/ S.O.B Time Seen by Provider: 05/19/17 17:04 Past History <aSmuel Flores - Last Filed: 05/19/17 18:34> - Past Medical History Anemia: No Asthma: No Cancer: No Cardiac Disorders: Yes (cardiac stent 2010/, [place]) CVA: No COPD: Yes CHF: Yes Dementia: No Diabetes: Yes GI Disorders: Yes Disorders: Yes (kidney stents, kidney stones, stress incontinence, KIDNEY FAILURE) HTN: Yes Hypercholesterolemia: Yes Liver Disease: No Psychiatric Problems: Yes (anxiety, anorexia, DEPRESSION.) Seizures: No Thyroid Disease: No - Surgical History Abdominal Surgery: Yes Appendectomy: No Cardiac Surgery: Yes (cardiac cath, stent, ppm/aicd) Cholecystectomy: No Lung Surgery: No Neurologic Surgery: No Orthopedic Surgery: No - Family Disease History Family Disease History: Heart Disease: Father - Immunization History Td Vaccination: Yes TDAP Vaccination: Yes Immunization Up to Date: No (no flu vaccine) - Suicide/Smoking/Psychosocial Hx Smoking Status: No Smoking History: Former smoker Years of Tobacco Use: 10 Have you smoked in the past 12 months: No Number of Cigarettes Smoked Daily: 7 If you are a former smoker, when did you quit?: 2014 Cigars Per Day: 0 Information on smoking cessation initiated: No 'Breaking Loose' booklet given: 12/15/14 Hx Alcohol Use: No Drug/Substance Use Hx: No Substance Use Type: None Hx Substance Use Treatment: No <Alison Zaragoza - Last Filed: 05/23/17 09:22> - Past Medical History Allergies/Adverse Reactions: Allergies Allergy/AdvReac Type Severity Reaction Status Date / Time No Known Allergies Allergy Verified 05/19/17 17:10 Home Medications: Ambulatory Orders Alprazolam [Xanax] 1 mg PO BID 04/15/16 Aspirin [ASA -] 81 mg PO DAILY 04/15/16 Atorvastatin Ca [Lipitor] 40 mg PO HS 04/15/16 Cholecalciferol (Vitamin D3) [Vitamin D -] 400 unit PO DAILY 04/15/16 Escitalopram Oxalate [Lexapro -] 20 mg PO DAILY 04/15/16 Gabapentin 600 mg PO TID 04/15/16 Topiramate 50 mg PO BID 04/15/16 Oxycodone HCl/Acetaminophen [Percocet 5-325 mg Tablet] 1 tab PO Q6H 05/21/16 Zolpidem Tartrate [Ambien] 10 mg PO HS 05/21/16 Lactulose (Oral Use) [Cephulac -] 20 gm PO TID PRN #1 bottle 03/23/17 Polyethylene Glycol 3350 [Miralax 119 gm Btl -] 17 gm PO DAILY #1 bottle Carvedilol [Coreg -] 3.25 mg PO BID 05/19/17 Review of Systems - Review of Systems Able to Perform ROS?: Yes Comments:: 05/19/17 18:32 GENERAL/CONSTITUTIONAL: (+) Chills. No fever. No weakness. HEAD, EYES, EARS, NOSE AND THROAT: No change in vision. No ear pain or discharge. No sore throat.- CARDIOVASCULAR: No chest pain or shortness of breath RESPIRATORY: No cough, wheezing, or hemoptysis. GASTROINTESTINAL: (+) Nausea and abdominal pain. No vomiting, diarrhea or constipation. GENITOURINARY: (+) Right flank pain. No dysuria, frequency, or change in urination. MUSCULOSKELETAL: No joint or muscle swelling or pain. No neck or back pain. SKIN: No rash NEUROLOGIC: No headache, vertigo, loss of consciousness, or change in strength/ sensation. ENDOCRINE: No increased thirst. No abnormal weight change HEMATOLOGIC/LYMPHATIC: No anemia, easy bleeding, or history of blood clots. ALLERGIC/IMMUNOLOGIC: No hives or skin allergy. <Samuel Flores - Last Filed: 05/19/17 18:34> *Physical Exam - Vital Signs Last Vital Signs Temp Pulse Resp BP Pulse Ox 98.1 F 83 16 116/72 98 05/19/17 17:08 05/19/17 17:08 05/19/17 17:08 05/19/17 17:08 05/19/17 17:08 <Samuel Flores - Last Filed: 05/19/17 18:34> - Vital Signs Last Vital Signs Temp Pulse Resp BP Pulse Ox 98.1 F 83 16 116/72 98 05/19/17 17:08 05/19/17 17:08 05/19/17 17:08 05/19/17 17:08 05/19/17 17:08 - Physical Exam Comments: GENERAL: Awake, alert, and fully oriented, in no acute distress HEAD: No signs of trauma EYES: PERRLA, EOMI, sclera anicteric, conjunctiva clear ENT: Auricles normal inspection, hearing grossly normal, nares patent, oropharynx clear without exudates. Dry mucosa NECK: Normal ROM, supple, no lymphadenopathy, JVD, or masses LUNGS: Breath sounds equal, clear to auscultation bilaterally. No wheezes, and no crackles HEART: Regular rate and rhythm, normal S1 and S2, no murmurs, rubs or gallops ABDOMEN: Soft, +R CVAT and LLQ tenderness, normoactive bowel sounds. +Guarding , no rebound. No masses EXTREMITIES: Normal range of motion, no edema. No clubbing or cyanosis. No cords, erythema, or tenderness NEUROLOGICAL: Cranial nerves II through XII grossly intact. Normal speech, normal gait SKIN: Warm, Dry, normal turgor, no rashes or lesions noted. <Alison Zaragoza - Last Filed: 05/23/17 09:22> ED Treatment Course - LABORATORY CBC & Chemistry Diagram: 05/19/17 17:52 05/19/17 17:52 - ADDITIONAL ORDERS Additional order review: Laboratory Results 05/19/17 17:52 Urine Color Elis Urine Appearance Cloudy Urine pH 5.0 D Ur Specific [place] 1.027 Urine Protein 1+ H Urine Glucose (UA) Negative Urine Ketones Negative Urine Blood Negative Urine Nitrite Negative Urine Bilirubin 2.0 Urine Urobilinogen 4.0 e.u/dl H 05/19/17 17:52 RBC 4.56 MCV 91.1 MCHC 34.4 RDW 14.0 MPV 7.7 Neutrophils % 69.1 Lymphocytes % 20.2 D Monocytes % 4.9 Eosinophils % 5.4 H Basophils % 0.4 <Samuel Flores - Last Filed: 05/19/17 18:34> - LABORATORY CBC & Chemistry Diagram: 05/23/17 06:35 05/23/17 06:35 - ADDITIONAL ORDERS Additional order review: Laboratory Results 05/19/17 17:52 Urine Color Elis Urine Appearance Cloudy Urine pH 5.0 D Ur Specific [place] 1.027 Urine Protein 1+ H Urine Glucose (UA) Negative Urine Ketones Negative Urine Blood Negative Urine Nitrite Negative Urine Bilirubin 2.0 Urine Urobilinogen 4.0 e.u/dl H 05/19/17 17:52 RBC 4.56 MCV 91.1 MCHC 34.4 RDW 14.0 MPV 7.7 Neutrophils % 69.1 Lymphocytes % 20.2 D Monocytes % 4.9 Eosinophils % 5.4 H Basophils % 0.4 <Alison Zaragoza - Last Filed: 05/23/17 09:22> Medical Decision Making - Medical Decision Making 05/19/17 18:36 Pt with R CVAT (likely due to preexisting kidney stone) and LLQ tenderness. DDx includes diverticulitis vs kidney stone. Also of note, she has recently been refusing to eat, was diagnosed with eating disorder. Will obtain CT to further evaluate the abdominal pain. 05/20/17 01:39 Pt found to have diverticulitis on CT. Due to high pain medication requirement ( 12 mg morphine in ED), will admit for IV abx and pain control. <Alison Zaragoza - Last Filed: 05/23/17 09:22> *DC/Admit/Observation/Transfer - Attestations Scribe Attestion: 05/19/17 18:33 Documentation prepared by Samuel Flores, acting as medical examiner for Alison Zaragoza MD <Samuel Flores - Last Filed: 05/19/17 18:34> - Discharge Dispostion Admit: Yes <Alison Zaragoza - Last Filed: 05/23/17 09:22> Diagnosis at time of Disposition: Eating disorder, Intractable pain Diverticulitis Qualifiers: Diverticulitis site: large intestine Diverticulitis bleeding: without bleeding Diverticulitis complication: unspecified complication status Qualified Code(s): K57.32 - Diverticulitis of large intestine without perforation or abscess without bleeding - Discharge Dispostion Condition at time of disposition: Stable
[2017-05-19 18:24] LABS: URINE MUCUS MANY; URINE RBC 8; URINE WBC 7
[2017-05-19 18:32] LABS: ALBUMIN 4.5 g/dl (3.4-5.0); ANION GAP 8 (8-16); CALCIUM 8.5 mg/dL (8.5-10.1); CO2 22 mmol/L (21-32); GLUCOSE,RANDOM 167 mg/dL (74-106); PHOSPHOROUS 2.3 mg/dL (2.5-4.9)
[2017-05-19 18:35] LABS: ALK PHOS 132 U/L (45-117); BILIRUBIN,TOTAL 0.5 mg/dL (0.2-1.0); CPK 80 IU/L (26-192); CREATININE 0.8 mg/dL (0.55-1.02); SGPT/ALT 21 U/L (12-78); TOT PROT 7.7 g/dl (6.4-8.2); TROPONIN I < 0.02 ng/ml (0.00-0.05)
[2017-05-19] MEDS ORDERED: SODIUM CHLORIDE 2,000 ML IV STA (18:35)
[2017-05-19] MEDS ORDERED: morphine CARPU-JECT 4 MG/1 ML DISP.SYRIN IVPUSH ONE ×2 (18:35→21:28)
[2017-05-19 18:37] LABS: MAGNESIUM 1.9 mg/dL (1.8-2.4); SGOT/AST 15 U/L (15-37)
[2017-05-19] MEDS ORDERED: morphine SULFATE 4 MG/ML VIAL ONE ×2 (18:41→21:29)
--- NOTE | 2017-05-19 21:25 | PDOC ---
Rapid Medical Evaluation Chief Complaint: Pain, Acute Time Seen by Provider: 05/19/17 17:04 Medical Evaluation: Allergies Allergy/AdvReac Type Severity Reaction Status Date / Time No Known Allergies Allergy Verified 05/19/17 17:10 Vital Signs Temp Pulse Resp BP Pulse Ox 98.1 F 83 16 116/72 98 05/19/17 17:08 05/19/17 17:08 05/19/17 17:08 05/19/17 17:08 05/19/17 17:08 Discharge Disposition - Discharge Dispostion Last Admission D/C Date: 03/23/17 - Referrals Referrals: Sandra Barry MD [Primary Care Provider] - - Patient Instructions - Post Discharge Activity
[2017-05-19 21:29] LABS: URINE LEUK ESTERASE Negative (NEGATIVE)
[2017-05-20] MEDS ORDERED: METRONIDAZOLE 500 MG PREMIXED 500 MG/100 ML MG IVPB ONE ×2 (00:49→01:19)
[2017-05-20] MEDS ORDERED: LEVOFLOXACIN 750 MG IVPB 750 MG/150 ML BAG IVPB ONE ×2 (00:49→01:19)
[2017-05-20] MEDS ORDERED: morphine CARPU-JECT 4 MG/1 ML DISP.SYRIN IVPUSH ONE (00:49)
[2017-05-20] MEDS ORDERED: morphine SULFATE 4 MG/ML VIAL ONE (01:18)
[2017-05-20] MEDS ORDERED: ALPRAZolam 0.25 MG TABLET ONE (03:13)
[2017-05-20] MEDS: ALPRAZolam 2 MG TABLET PO SCH ×3 (03:39→21:02)
--- NOTE | 2017-05-20 03:45 | HP ---
CHIEF COMPLAINT: right flank pain PCP: Jhonny HISTORY OF PRESENT ILLNESS: This is a 52 year old female with a past medical history significant for diverticulitis, renal stones, renal stent who presented to the ED with right flank pain that radiates to the groin. She has had the pain for weeks. SHe was seen at [facility] and treated with 10day course cipro for UTI. The pain did not get any better after antibiotics. She was hospitalized in March for NEYMAR and severe constipation. She denies constipation at present and reports normal BM 11 / in AM with normal BMs almost daily. ER course was notable for: (1) WBC 10.6 (2) CT abd/pel with possible early diverticulitis Recent Travel: pt denies PAST MEDICAL HISTORY: CAD OR CHF COPD HTN HLD renal stones renal stents CRI stress incontinence anorexia, anxiety, depression diverticulitis ectopic Migraines PAST SURGICAL HISTORY: cardiac stent 05/21 PPM 02/19 Social History: Smoking: quit 18m ago Alcohol: pt denies Drugs: pt denies Family History: mother alive, DM, HTN father age 62-OR h/o rheumatic heart disease s/p valve replacement, CABG 3 sisters alive and well Allergies No Known Allergies Allergy (Verified 05/19/17 17:10) HOME MEDICATIONS: 3 Medication Instructions Recorded Alprazolam [Xanax] 1 mg PO BID 04/15/16 Aspirin [ASA -] 81 mg PO DAILY 04/15/16 Atorvastatin Ca [Lipitor] 40 mg PO HS 04/15/16 Cholecalciferol (Vitamin D3) 400 unit PO DAILY 04/15/16 [Vitamin D -] Escitalopram Oxalate [Lexapro -] 20 mg PO DAILY 04/15/16 Gabapentin 600 mg PO TID 04/15/16 Topiramate 50 mg PO BID 04/15/16 Oxycodone HCl/Acetaminophen 1 tab PO Q6H 05/21/16 [Percocet 5-325 mg Tablet] Zolpidem Tartrate [Ambien] 10 mg PO HS 05/21/16 Lactulose (Oral Use) [Cephulac -] 20 gm PO TID PRN #1 bottle 03/23/17 Polyethylene Glycol 3350 [Miralax 17 gm PO DAILY #1 bottle 03/23/17 119 gm Btl -] Carvedilol [Coreg -] 3.25 mg PO BID 05/19/17 REVIEW OF SYSTEMS CONSTITUTIONAL: Absent: fever, chills, diaphoresis, generalized weakness, malaise, loss of appetite, weight change HEENT: Absent: rhinorrhea, nasal congestion, throat pain, throat swelling, difficulty swallowing, mouth swelling, ear pain, eye pain, visual changes CARDIOVASCULAR: Absent: chest pain, syncope, palpitations, irregular heart rate, lightheadedness , peripheral edema RESPIRATORY: Absent: cough, shortness of breath, dyspnea with exertion, orthopnea, wheezing, stridor, hemoptysis GASTROINTESTINAL: Present: abdominal pain, nausea Absent: abdominal distension, vomiting, diarrhea, constipation, melena, hematochezia GENITOURINARY: Present: flank pain Absent: dysuria, frequency, urgency, hesitancy, hematuria, genital pain MUSCULOSKELETAL: Absent: myalgia, arthralgia, joint swelling, back pain, neck pain SKIN: Absent: rash, itching, pallor HEMATOLOGIC/IMMUNOLOGIC: Absent: easy bleeding, easy bruising, lymphadenopathy, frequent infections ENDOCRINE: Absent: unexplained weight gain, unexplained weight loss, heat intolerance, cold intolerance NEUROLOGIC: Absent: headache, focal weakness or paresthesias, dizziness, unsteady gait, seizure, mental status changes, bladder or bowel incontinence PSYCHIATRIC: Absent: anxiety, depression, suicidal or homicidal ideation, hallucinations. PHYSICAL EXAMINATION Vital Signs - 24 hr 3 05/19/17 05/19/17 17:08 23:41 Temperature 98.1 F 98.0 F Pulse Rate 83 Pulse Rate [ 59 L Right Radial] Respiratory 16 18 Rate Blood Pressure 116/72 Blood Pressure 103/70 [Right Arm] O2 Sat by Pulse 98 99 Oximetry (%) GENERAL: Awake, alert, and fully oriented, in no acute distress. HEAD: Normal with no signs of trauma. EYES: Pupils equal, round and reactive to light, extraocular movements intact, sclera anicteric, conjunctiva clear. No lid lag. EARS, NOSE, THROAT: Ears normal, nares patent, oropharynx clear without exudates. Moist mucous membranes. NECK: Normal range of motion, supple without lymphadenopathy, JVD, or masses. LUNGS: Breath sounds equal, clear to auscultation bilaterally. No wheezes, and no crackles. No accessory muscle use. HEART: Regular rate and rhythm, normal S1 and S2 without murmur, rub or gallop. ABDOMEN: Soft, mildly tender on palpation all quadrants, not distended, normoactive bowel sounds, no guarding, no rebound, no masses. No hepatomegaly or splenomegaly. MUSCULOSKELETAL: Normal range of motion at all joints. No bony deformities or tenderness. +R CVA tenderness UPPER EXTREMITIES: 2+ pulses, warm, well-perfused. No cyanosis. No clubbing. No peripheral edema. LOWER EXTREMITIES: 2+ pulses, warm, well-perfused. No calf tenderness. No peripheral edema. NEUROLOGICAL: Cranial nerves II-XII intact. Normal speech. Normal gait. PSYCHIATRIC: Cooperative. Good eye contact. Appropriate mood and affect. SKIN: Warm, dry, normal turgor, no rashes or lesions noted, normal capillary refill. Laboratory Results - last 24 hr 3 05/19/17 05/19/17 05/19/17 17:52 17:52 17:52 WBC 10.6 H RBC 4.56 Hgb 14.3 Hct 41.5 MCV 91.1 MCH 31.4 MCHC 34.4 RDW 14.0 Plt Count 252 MPV 7.7 Neutrophils % 69.1 Lymphocytes % 20.2 D Monocytes % 4.9 Eosinophils % 5.4 H Basophils % 0.4 Sodium 141 Potassium 3.8 Chloride 111 H Carbon Dioxide 22 Anion Gap 8 BUN 14 Creatinine 0.8 Creat Clearance w eGFR > 60 Random Glucose 167 H D Calcium 8.5 Phosphorus 2.3 L D Magnesium 1.9 Total Bilirubin 0.5 AST 15 ALT 21 D Alkaline Phosphatase 132 H Creatine Kinase 80 Troponin I < 0.02 Total Protein 7.7 Albumin 4.5 Lipase 137 Urine Color Elis Urine Appearance Cloudy Urine pH 5.0 D Ur Specific [place] 1.027 Urine Protein 1+ H Urine Glucose (UA) Negative Urine Ketones Negative Urine Blood Negative Urine Nitrite Negative Urine Bilirubin 2.0 Urine Urobilinogen 4.0 e.u/dl H Ur Leukocyte Esterase Negative Urine RBC 8 Urine WBC 7 Ur Epithelial Cells Many Urine Mucus Many Radiology Reports: CT ABDOMEN AND PELVIS WITH CONTRAST THIS IS A PRELIMINARY REPORT FROM [facility] 5 mm nodule left lower lobe, advise followup. At least one diverticulum in sigmoid colon within a short segment of thickened colon, question early acute diverticulitis versus incidental diverticulum ssegmental underdistention. No adjacent fat inflammation. Consider colonoscopy to exclude remote alternative possibility of mass. No diverticula elsewhere in colon. No bowel obstruction, free fluid or free air. Normal appendix. Unremarkable pancreas, kidneys and gallbladder. Hepatomegaly. AICD. THIS DOCUMENT HAS BEEN ELECTRONICALLY SIGNED Paradise Ariza M.D. 05/20/2017 00:44 EST ASSESSMENT/PLAN: 52yF with PMH CAD, [place], CHF, COPD, HTN, HLD, renal stone L kidney, renal stents, CRI, stres sincontinence, anorexia, anxiety, depression, diverticulitis, ectopic , chronic back pain and Migraines presented to the ED with right flank pain rad across abdomen into right groin for "weeks". Diverticulitis - levaquin and flagyl given in ed, cont same. - NPO for now, trial clears in am - morphine 4mg q4h prn Flank pain - consider renal sono if not improving with tx of diverticulitis CAD/CHF/HTN/HLD - cont home meds: ASA, lipitor, coreg constipation - cont miralax and lactulose chronic back pain - cont gabapentin anxiety - cont home lexapro and xanax migraines - cont home topamax DVT PPX - chemoprophylaxis not indicated as expected LOS >48h FEN - NS @ 75cc/hr - BMP in am - clear liquid diet in am Dispo: Pt currently requires inpatient observation for management of her emergent condition. Visit type - Emergency Visit Emergency Visit: Yes ED Registration Date: 05/19/17 Care time: The patient presented to the Emergency Department on the above date and was hospitalized for further evaluation of their emergent condition. - New Patient This patient is new to me today: Yes Date on this admission: 05/20/17 - Critical Care Critical Care patient: No
[2017-05-20] MEDS ORDERED: LACTULOSE 20 GM/30 ML UDC (FOR ORAL USE ONLY) PO PRN (04:11)
[2017-05-20] MEDS: morphine SULFATE 4 MG/ML VIAL IVPUSH PRN ×4 (04:34→20:13)
[2017-05-20 05:00] VITALS: BMI 30.5
[2017-05-20] MEDS: GABAPENTIN 300 MG CAPSULE (FP) PO SCH ×3 (06:09→21:02)
[2017-05-20] MEDS: ESCITALOPRAM OXALATE 20 MG TABLET (FP) PO SCH (10:16)
[2017-05-20] MEDS: CHOLECALCIFEROL (VITAMIN D3) 400 UNIT TABLET (FP) PO SCH (10:16)
[2017-05-20] MEDS: CARVEDILOL 3.125 MG TABLET (FP) PO SCH ×2 (10:16→21:02)
[2017-05-20] MEDS: ASPIRIN 81 MG CHEWABLE TABLETS PO SCH (10:16)
[2017-05-20] MEDS: TOPIRAMATE 25 MG TABLET (FP) PO SCH ×2 (10:17→21:02)
[2017-05-20] MEDS: METRONIDAZOLE 500 MG PREMIXED 500 MG/100 ML MG IVPB SCH ×2 (10:18→17:54)
--- NOTE | 2017-05-20 11:14 | EKG ---
Test Reason : Blood Pressure : / mmHG Vent. Rate : 076 BPM Atrial Rate : 076 BPM P-R Int : 178 ms QRS Dur : 090 ms QT Int : 418 ms P-R-T Axes : 050 017 083 degrees QTc Int : 470 ms NORMAL SINUS RHYTHM ANTEROSEPTAL INFARCT (CITED ON OR BEFORE 16-OCT-2014) ABNORMAL ECG WHEN COMPARED WITH ECG OF 14-MAR-2017 19:08, [place] INTERVAL HAS DECREASED QT HAS LENGTHENED Confirmed by HANNAH RICHARDS MD ([id number]) on 05/20/2017 11:14:27 AM Referred By: Confirmed By:HANNAH RICHARDS MD
[2017-05-20] MEDS: POLYETHYLENE GLYCOL 3350 119 GM BTL PO SCH (11:23)
[2017-05-20] MEDS: ATORVASTATIN CA 40 MG TABLET (FP) PO SCH (21:02)
[2017-05-20] MEDS: LEVOFLOXACIN 750 MG IVPB 750 MG/150 ML BAG IVPB SCH (21:03)
[2017-05-20] MEDS ORDERED: ZOLPIDEM TARTRATE 5 MG TABLET PO ONE (22:25)
[2017-05-21] MEDS: METRONIDAZOLE 500 MG PREMIXED 500 MG/100 ML MG IVPB SCH ×3 (01:21→18:12)
[2017-05-21] MEDS: morphine SULFATE 4 MG/ML VIAL IVPUSH PRN ×5 (03:05→22:11)
[2017-05-21] MEDS: GABAPENTIN 300 MG CAPSULE (FP) PO SCH ×3 (05:34→22:12)
[2017-05-21] MEDS: CHOLECALCIFEROL (VITAMIN D3) 400 UNIT TABLET (FP) PO SCH (09:30)
[2017-05-21] MEDS: ESCITALOPRAM OXALATE 20 MG TABLET (FP) PO SCH (09:31)
[2017-05-21] MEDS: ALPRAZolam 2 MG TABLET PO SCH ×2 (09:31→22:13)
[2017-05-21] MEDS: TOPIRAMATE 25 MG TABLET (FP) PO SCH ×2 (09:31→22:12)
[2017-05-21] MEDS: CARVEDILOL 3.125 MG TABLET (FP) PO SCH ×2 (09:32→22:11)
[2017-05-21] MEDS: ASPIRIN 81 MG CHEWABLE TABLETS PO SCH (09:32)
[2017-05-21] MEDS: POLYETHYLENE GLYCOL 3350 119 GM BTL PO SCH (09:32)
--- NOTE | 2017-05-21 11:41 | PN ---
Progress Note, Physician - Current Medication List Current Medications: Active Medications Alprazolam (Xanax -) 1 mg PO BID [facility] Last Admin: 05/21/17 09:31 Dose: 1 mg Aspirin (Asa -) 81 mg PO DAILY [facility] Last Admin: 05/21/17 09:32 Dose: 81 mg Atorvastatin Calcium (Lipitor -) 40 mg PO [facility] Last Admin: 05/20/17 21:02 Dose: 40 mg Carvedilol (Coreg -) 3.125 mg PO BID [facility] Last Admin: 05/21/17 09:32 Dose: 3.125 mg Cholecalciferol (Vitamin D3 -) 400 unit PO DAILY [facility] Last Admin: 05/21/17 09:30 Dose: 400 unit Escitalopram Oxalate (Lexapro -) 20 mg PO DAILY [facility] Last Admin: 05/21/17 09:31 Dose: 20 mg Gabapentin (Neurontin -) 600 mg PO TID [facility] Last Admin: 05/21/17 05:34 Dose: 600 mg Metronidazole (Flagyl 500mg Premixed Ivpb -) 500 mg in 100 mls @ 100 mls/hr IVPB Q8H-IV [facility] Last Admin: 05/21/17 09:29 Dose: 100 mls/hr Levofloxacin (Levaquin 750 Mg Premixed Ivpb -) 750 mg in 150 mls @ 150 mls/hr IVPB [facility] Last Admin: 05/20/17 21:03 Dose: 150 mls/hr Lactulose (Cephulac (Oral Use)) 20 gm PO TID PRN PRN Reason: CONSTIPATION Morphine Sulfate (Morphine Sulfate) 4 mg IVPUSH Q4H PRN PRN Reason: PAIN Last Admin: 05/21/17 09:26 Dose: 4 mg Polyethylene Glycol (Miralax (For Daily Use) -) 17 gm PO DAILY [facility] Last Admin: 05/21/17 09:32 Dose: Not Given Topiramate (Topamax -) 50 mg PO BID [facility] Last Admin: 05/21/17 09:31 Dose: 50 mg - Objective Vital Signs: Vital Signs Temperature 98.2 F 05/21/17 05:00 Pulse Rate 57 L 05/21/17 05:00 Respiratory Rate 18 05/21/17 05:00 Blood Pressure 117/70 05/21/17 05:00 O2 Sat by Pulse Oximetry (%) 99 05/20/17 03:46 Constitutional: Yes: Well Nourished, No Distress, Calm Eyes: Yes: WNL HENT: Yes: WNL Cardiovascular: Yes: WNL, Regular Rate and Rhythm, S1, S2 Respiratory: Yes: WNL, Regular, CTA Bilaterally Gastrointestinal: Yes: Abdomen, Obese, Hypoactive Bowel Sounds, Tenderness Peripheral Pulses WNL: Yes Labs: CBC, BMP 05/19/17 17:52 05/19/17 17:52 Problem List - Problems (1) Diverticulitis Assessment/Plan: - c/w levofolxacine iv daily c/w metronidazole 5000mg q8hrs - NPO for now, trial clears in am - morphine 4mg q4h prn Code(s): K57.92 - DVTRCLI OF INTEST, PART UNSP, W/O PERF OR ABSCESS W/O BLEED Qualifiers: Diverticulitis site: large intestine Diverticulitis bleeding: without bleeding Diverticulitis complication: unspecified complication status Qualified Code(s): K57.32 - Diverticulitis of large intestine without perforation or abscess without bleeding (2) Eating disorder Assessment/Plan: stable Code(s): F50.9 - EATING DISORDER, UNSPECIFIED (3) Abdominal pain Assessment/Plan: resolving patient reports pain about 3 to 4 now Code(s): R10.9 - UNSPECIFIED ABDOMINAL PAIN Qualifiers: Abdominal location: right upper quadrant Qualified Code(s): R10.11 - Right upper quadrant pain (4) DVT prophylaxis Assessment/Plan: heparin sub q Code(s): [id number] - Assessment/Plan Flank pain - Renal ultrasound tuesday evaluate for possble nephrolithiais vs pylonephritis CAD/CHF/HTN/HLD - cont home meds: ASA, lipitor, coreg constipation - cont miralax and lactulose chronic back pain - cont gabapentin anxiety - cont home lexapro and xanax migraines - cont home topamax DVT PPX - chemoprophylaxis not indicated as expected LOS >48h FEN - NS @ 75cc/hr - BMP in am - clear liquid diet in am
[2017-05-21] MEDS: LEVOFLOXACIN 750 MG IVPB 750 MG/150 ML BAG IVPB SCH (22:11)
[2017-05-21] MEDS: ATORVASTATIN CA 40 MG TABLET (FP) PO SCH (22:12)
[2017-05-21] MEDS ORDERED: ZOLPIDEM TARTRATE 5 MG TABLET PO ONE (22:35)
[2017-05-22] MEDS: METRONIDAZOLE 500 MG PREMIXED 500 MG/100 ML MG IVPB SCH ×3 (03:14→17:50)
[2017-05-22] MEDS: morphine SULFATE 4 MG/ML VIAL IVPUSH PRN ×5 (03:23→22:33)
[2017-05-22] MEDS: GABAPENTIN 300 MG CAPSULE (FP) PO SCH ×3 (06:03→22:32)
[2017-05-22 08:24] LABS: BASOPHIL 0.4 % (0-2.0); EOSINOPHIL 6.6 % (0-4.5); MCHC 34.5 g/dl (32.0-36.0); MEAN CELL VOLUME 90.1 fl (80-96); MEAN PLT VOLUME 7.3 fl (7.5-11.1); NEUTROPHILS 63.8 % (42.8-82.8); PLATELET COUNT 201 K/MM3 (134-434); RDW 14.4 % (11.6-15.6); WHITE BLOOD COUNT 7.9 K/mm3 (4.0-10.0)
[2017-05-22] MEDS ORDERED: PT OWN MED DRAWER 7, Y5N ONE (10:41)
--- NOTE | 2017-05-22 10:51 | PN ---
Progress Note, Physician Chief Complaint: patient is doing well she stated that she feels a bit thirsty and the pain is still present in her abdomen and her right flank - Current Medication List Current Medications: Active Medications Alprazolam (Xanax -) 1 mg PO BID [facility] Last Admin: 05/21/17 22:13 Dose: 1 mg Aspirin (Asa -) 81 mg PO DAILY [facility] Last Admin: 05/21/17 09:32 Dose: 81 mg Atorvastatin Calcium (Lipitor -) 40 mg PO [facility] Last Admin: 05/21/17 22:12 Dose: 40 mg Carvedilol (Coreg -) 3.125 mg PO BID [facility] Last Admin: 05/21/17 22:11 Dose: 3.125 mg Cholecalciferol (Vitamin D3 -) 400 unit PO DAILY [facility] Last Admin: 05/21/17 09:30 Dose: 400 unit Escitalopram Oxalate (Lexapro -) 20 mg PO DAILY [facility] Last Admin: 05/21/17 09:31 Dose: 20 mg Gabapentin (Neurontin -) 600 mg PO TID [facility] Last Admin: 05/22/17 06:03 Dose: 600 mg Metronidazole (Flagyl 500mg Premixed Ivpb -) 500 mg in 100 mls @ 100 mls/hr IVPB Q8H-IV [facility] Last Admin: 05/22/17 03:14 Dose: 100 mls/hr Levofloxacin (Levaquin 750 Mg Premixed Ivpb -) 750 mg in 150 mls @ 150 mls/hr IVPB [facility] Last Admin: 05/21/17 22:11 Dose: 150 mls/hr Sodium Chloride (Normal Saline -) 1,000 mls @ 150 mls/hr IV ASDIR [facility] Lactulose (Cephulac (Oral Use)) 20 gm PO TID PRN PRN Reason: CONSTIPATION Morphine Sulfate (Morphine Sulfate) 4 mg IVPUSH Q4H PRN PRN Reason: PAIN Last Admin: 05/22/17 08:34 Dose: 4 mg Polyethylene Glycol (Miralax (For Daily Use) -) 17 gm PO DAILY [facility] Last Admin: 05/21/17 09:32 Dose: Not Given Topiramate (Topamax -) 50 mg PO BID [facility] Last Admin: 05/21/17 22:12 Dose: 50 mg - Objective Vital Signs: Vital Signs Temperature 98.8 F 05/22/17 09:04 Pulse Rate 58 L 11/12/17 09:04 Respiratory Rate 18 05/22/17 09:04 Blood Pressure 99/69 05/22/17 09:04 O2 Sat by Pulse Oximetry (%) 99 05/20/17 03:46 Constitutional: Yes: Well Nourished, No Distress, Calm Eyes: Yes: WNL, Conjunctiva Clear, EOM Intact HENT: Yes: WNL, Atraumatic, Normocephalic Neck: Yes: WNL, Supple, Trachea Midline Cardiovascular: Yes: WNL, Regular Rate and Rhythm, S1, S2 Respiratory: Yes: WNL, Regular, CTA Bilaterally Gastrointestinal: Yes: Normal Bowel Sounds, Soft Labs: CBC, BMP 05/22/17 06:00 Problem List - Problems (1) Diverticulitis Code(s): K57.92 - DVTRCLI OF INTEST, PART UNSP, W/O PERF OR ABSCESS W/O BLEED Qualifiers: Diverticulitis site: large intestine Diverticulitis bleeding: without bleeding Diverticulitis complication: unspecified complication status Qualified Code(s): K57.32 - Diverticulitis of large intestine without perforation or abscess without bleeding (2) Eating disorder Code(s): F50.9 - EATING DISORDER, UNSPECIFIED (3) Abdominal pain Code(s): R10.9 - UNSPECIFIED ABDOMINAL PAIN Qualifiers: Abdominal location: right upper quadrant Qualified Code(s): R10.11 - Right upper quadrant pain (4) DVT prophylaxis Code(s): [id number] - Assessment/Plan Flank pain - Renal ultrasound tuesday evaluate for possble nephrolithiais vs pylonephritis CAD/CHF/HTN/HLD - cont home meds: ASA, lipitor, coreg constipation - cont miralax and lactulose chronic back pain - cont gabapentin anxiety - cont home lexapro and xanax migraines - cont home topamax DVT PPX - chemoprophylaxis not indicated as expected LOS >48h FEN - NS @ 150cc/hr - BMP in am - clear liquid diet in am
[2017-05-22] MEDS: CARVEDILOL 3.125 MG TABLET (FP) PO SCH ×2 (10:54→22:48)
[2017-05-22] MEDS: TOPIRAMATE 25 MG TABLET (FP) PO SCH ×2 (10:54→22:32)
[2017-05-22] MEDS: CHOLECALCIFEROL (VITAMIN D3) 400 UNIT TABLET (FP) PO SCH (10:54)
[2017-05-22] MEDS: ESCITALOPRAM OXALATE 20 MG TABLET (FP) PO SCH (10:54)
[2017-05-22] MEDS: POLYETHYLENE GLYCOL 3350 119 GM BTL PO SCH (10:55)
[2017-05-22] MEDS: ALPRAZolam 2 MG TABLET PO SCH ×2 (10:55→22:32)
[2017-05-22] MEDS: SODIUM CHLORIDE 1,000 ML IV SCH (10:56)
[2017-05-22 11:57] LABS: ANION GAP 6 (8-16); CALCIUM 8.5 mg/dL (8.5-10.1); CO2 25 mmol/L (21-32); GLUCOSE,RANDOM 153 mg/dL (74-106)
[2017-05-22 11:59] LABS: CREATININE 0.8 mg/dL (0.55-1.02)
[2017-05-22] MEDS: ASPIRIN 81 MG CHEWABLE TABLETS PO SCH (17:50)
[2017-05-22] MEDS ORDERED: PEG3350/SOD SULF,BICARB,CL/KCL 4,000 ML SOLN.RECON PO ONE (18:00)
[2017-05-22] MEDS: LEVOFLOXACIN 750 MG IVPB 750 MG/150 ML BAG IVPB SCH (22:32)
[2017-05-22] MEDS: ATORVASTATIN CA 40 MG TABLET (FP) PO SCH (22:33)
[2017-05-23] MEDS ORDERED: ZOLPIDEM TARTRATE 5 MG TABLET PO ONE (01:27)
[2017-05-23] MEDS: METRONIDAZOLE 500 MG PREMIXED 500 MG/100 ML MG IVPB SCH ×3 (01:36→18:05)
[2017-05-23] MEDS: morphine SULFATE 4 MG/ML VIAL IVPUSH PRN ×2 (06:44→12:51)
[2017-05-23] MEDS: GABAPENTIN 300 MG CAPSULE (FP) PO SCH ×3 (06:46→21:32)
[2017-05-23 08:08] LABS: BASOPHIL 0.3 % (0-2.0); EOSINOPHIL 7.8 % (0-4.5); MCH 30.9 pg (25.7-33.7); MCHC 34.5 g/dl (32.0-36.0); MEAN CELL VOLUME 89.5 fl (80-96); MEAN PLT VOLUME 7.5 fl (7.5-11.1); NEUTROPHILS 60.2 % (42.8-82.8); PLATELET COUNT 186 K/MM3 (134-434); WHITE BLOOD COUNT 7.1 K/mm3 (4.0-10.0)
[2017-05-23] MEDS ORDERED: PROPOFOL 20 ML ONE ×2 (08:21)
[2017-05-23] MEDS ORDERED: ETOMIDATE 20 MG/10 ML AMPUL IVPUSH ONE (08:21)
[2017-05-23 08:22] LABS: ALBUMIN 3.3 g/dl (3.4-5.0); ALK PHOS 87 U/L (45-117); ANION GAP 9 (8-16); BILIRUBIN,TOTAL 0.5 mg/dL (0.2-1.0); CALCIUM 7.6 mg/dL (8.5-10.1); CO2 21 mmol/L (21-32); CREATININE 0.6 mg/dL (0.55-1.02); GLUCOSE,RANDOM 106 mg/dL (74-106); MAGNESIUM 1.8 mg/dL (1.8-2.4); SGOT/AST 15 U/L (15-37); SGPT/ALT 19 U/L (12-78); TOT PROT 5.8 g/dl (6.4-8.2)
--- NOTE | 2017-05-23 08:52 | PROC ---
Endoscopy Procedure Endoscopy procedure completed. Please see scanned procedure report. mild sigmoid diverticulosis, grade II internal hemorrhoids, external hemorrhoids.
[2017-05-23] MEDS ORDERED: PT OWN MED DRAWER 7, Y5N ONE (10:06)
[2017-05-23] MEDS: CHOLECALCIFEROL (VITAMIN D3) 400 UNIT TABLET (FP) PO SCH (10:08)
[2017-05-23] MEDS: POLYETHYLENE GLYCOL 3350 119 GM BTL PO SCH (10:08)
[2017-05-23] MEDS: SODIUM CHLORIDE 1,000 ML IV SCH (10:08)
[2017-05-23] MEDS: CARVEDILOL 3.125 MG TABLET (FP) PO SCH ×2 (10:08→21:33)
[2017-05-23] MEDS: ASPIRIN 81 MG CHEWABLE TABLETS PO SCH (10:08)
[2017-05-23] MEDS: ESCITALOPRAM OXALATE 20 MG TABLET (FP) PO SCH (10:08)
[2017-05-23] MEDS: TOPIRAMATE 25 MG TABLET (FP) PO SCH ×2 (10:08→21:32)
[2017-05-23] MEDS: ALPRAZolam 2 MG TABLET PO SCH ×2 (10:08→21:31)
--- NOTE | 2017-05-23 15:11 | PN ---
Progress Note, Physician Chief Complaint: Ms Silke complains of pain in her back, "around her kidneys". She also says she was told she had an infection that went to her kidneys. Says the pain is better controlled today but still there. Also with abdominal pain but not as severe. No cp or sob. - Current Medication List Current Medications: Active Medications Alprazolam (Xanax -) 1 mg PO BID [facility] Last Admin: 05/23/17 10:08 Dose: 1 mg Aspirin (Asa -) 81 mg PO DAILY [facility] Last Admin: 05/23/17 10:08 Dose: 81 mg Atorvastatin Calcium (Lipitor -) 40 mg PO [facility] Last Admin: 05/22/17 22:33 Dose: 40 mg Carvedilol (Coreg -) 3.125 mg PO BID [facility] Last Admin: 05/23/17 10:08 Dose: Not Given Cholecalciferol (Vitamin D3 -) 400 unit PO DAILY [facility] Last Admin: 05/23/17 10:08 Dose: 400 unit Escitalopram Oxalate (Lexapro -) 20 mg PO DAILY [facility] Last Admin: 05/23/17 10:08 Dose: 20 mg Gabapentin (Neurontin -) 600 mg PO TID [facility] Last Admin: 05/23/17 13:46 Dose: 600 mg Metronidazole (Flagyl 500mg Premixed Ivpb -) 500 mg in 100 mls @ 100 mls/hr IVPB Q8H-IV [facility] Last Admin: 05/23/17 10:08 Dose: 100 mls/hr Levofloxacin (Levaquin 750 Mg Premixed Ivpb -) 750 mg in 150 mls @ 150 mls/hr IVPB HS [facility] Last Admin: 05/22/17 22:32 Dose: 150 mls/hr Sodium Chloride (Normal Saline -) 1,000 mls @ 150 mls/hr IV ASDIR [facility] Last Admin: 05/23/17 10:08 Dose: 150 mls/hr Lactulose (Cephulac (Oral Use)) 20 gm PO TID PRN PRN Reason: CONSTIPATION Oxycodone/Acetaminophen (Percocet 5/325 -) 2 combo PO Q4H PRN PRN Reason: PAIN LEVEL 6-10 Polyethylene Glycol (Miralax (For Daily Use) -) 17 gm PO DAILY [facility] Last Admin: 05/23/17 10:08 Dose: Not Given Topiramate (Topamax -) 50 mg PO BID [facility] Last Admin: 05/23/17 10:08 Dose: 50 mg - Objective Vital Signs: Vital Signs Temperature 36.6 C 05/23/17 09:40 Pulse Rate 50 L 05/23/17 09:40 Respiratory Rate 18 05/23/17 10:00 Blood Pressure 134/61 05/23/17 09:40 O2 Sat by Pulse Oximetry (%) 97 05/23/17 10:00 Constitutional: Yes: Well Nourished, No Distress, Calm Cardiovascular: Yes: Regular Rate and Rhythm. No: Gallop, Murmur, Rub Respiratory: Yes: Regular, CTA Bilaterally. No: Rales, Rhonchi, Wheezes Gastrointestinal: Yes: Normal Bowel Sounds, Soft. No: Distention, Tenderness Extremities: Yes: WNL Edema: No Labs: CBC, BMP 05/23/17 06:35 05/23/17 06:35 Problem List - Problems (1) CVA tenderness Assessment/Plan: -patient complaining of CVA tenderness -CT scan negative and urinalysis not showing signs of infection -urine culture contaminant -will obtain ultrasound for possible obstruction Code(s): M54.9 - DORSALGIA, UNSPECIFIED (2) Diverticulitis Assessment/Plan: -patient with diverticulitis -continue levaquin and flagyl -appreciate GI assistance -placed on regular diet, monitor if tolerates Code(s): K57.92 - DVTRCLI OF INTEST, PART UNSP, W/O PERF OR ABSCESS W/O BLEED Qualifiers: Diverticulitis site: large intestine Diverticulitis bleeding: without bleeding Diverticulitis complication: unspecified complication status Qualified Code(s): K57.32 - Diverticulitis of large intestine without perforation or abscess without bleeding (3) Anxiety Assessment/Plan: -continue xanax Code(s): F41.9 - ANXIETY DISORDER, UNSPECIFIED (4) CAD (coronary artery disease) Assessment/Plan: -quiescent -continue current regimen Code(s): I25.10 - ATHSCL HEART DISEASE OF [place] CORONARY ARTERY W/O ANG PCTRS Qualifiers: Coronary Disease-Associated Artery/Lesion type: [place] artery [place] vs. transplanted heart: [place] heart Associated angina: without angina Qualified Code(s): I25.10 - Atherosclerotic heart disease of [place] coronary artery without angina pectoris (5) Hyperlipidemia Assessment/Plan: -continue statin Code(s): E78.5 - HYPERLIPIDEMIA, UNSPECIFIED Qualifiers: Hyperlipidemia type: pure hypercholesterolemia Qualified Code(s): E78.00 - Pure hypercholesterolemia, unspecified (6) Constipation Assessment/Plan: -resolved -continue lactulose Code(s): K59.00 - CONSTIPATION, UNSPECIFIED Qualifiers: Constipation type: drug induced constipation Qualified Code(s): K59.03 - Drug induced constipation
[2017-05-23] MEDS: oxyCODONE HCL 5 MG TABLET PO PRN (18:57)
[2017-05-23] MEDS: ACETAMINOPHEN 325 MG TABLET (FP) PO PRN (18:58)
[2017-05-23] MEDS: ATORVASTATIN CA 40 MG TABLET (FP) PO SCH (21:32)
[2017-05-23] MEDS: LEVOFLOXACIN 750 MG IVPB 750 MG/150 ML BAG IVPB SCH (21:33)
[2017-05-24] MEDS: METRONIDAZOLE 500 MG PREMIXED 500 MG/100 ML MG IVPB SCH ×3 (01:18→18:03)
[2017-05-24] MEDS: oxyCODONE HCL 5 MG TABLET PO PRN ×4 (02:58→21:31)
[2017-05-24] MEDS: GABAPENTIN 300 MG CAPSULE (FP) PO SCH ×3 (05:58→21:17)
[2017-05-24 08:28] LABS: BASOPHIL 0.4 % (0-2.0); EOSINOPHIL 5.6 % (0-4.5); MCH 31.3 pg (25.7-33.7); MCHC 34.6 g/dl (32.0-36.0); MEAN CELL VOLUME 90.4 fl (80-96); MEAN PLT VOLUME 7.6 fl (7.5-11.1); NEUTROPHILS 63.4 % (42.8-82.8); PLATELET COUNT 182 K/MM3 (134-434); RDW 13.9 % (11.6-15.6)
[2017-05-24] MEDS ORDERED: DICYCLOMINE HCL 20 MG TABLET PO PRN (08:43)
--- NOTE | 2017-05-24 08:44 | PN ---
Progress Note, Physician History of Present Illness: No events. Tolerating regular diet. Colonoscopy revealed a mild sigmoid diverticulosis, uncomplicated internal and external hemorrhoids. - Current Medication List Current Medications: Active Medications Acetaminophen (Tylenol -) 650 mg PO Q4H PRN PRN Reason: PAIN Stop: 05/26/17 15:19 Last Admin: 05/23/17 18:58 Dose: 650 mg Alprazolam (Xanax -) 1 mg PO BID [facility] Last Admin: 05/23/17 21:31 Dose: 1 mg Aspirin (Asa -) 81 mg PO DAILY [facility] Last Admin: 05/23/17 10:08 Dose: 81 mg Atorvastatin Calcium (Lipitor -) 40 mg PO [facility] Last Admin: 05/23/17 21:32 Dose: 40 mg Carvedilol (Coreg -) 3.125 mg PO BID [facility] Last Admin: 05/23/17 21:33 Dose: Not Given Cholecalciferol (Vitamin D3 -) 400 unit PO DAILY [facility] Last Admin: 05/23/17 10:08 Dose: 400 unit Escitalopram Oxalate (Lexapro -) 20 mg PO DAILY [facility] Last Admin: 05/23/17 10:08 Dose: 20 mg Gabapentin (Neurontin -) 600 mg PO TID [facility] Last Admin: 05/24/17 05:58 Dose: 600 mg Metronidazole (Flagyl 500mg Premixed Ivpb -) 500 mg in 100 mls @ 100 mls/hr IVPB Q8H-IV [facility] Last Admin: 05/24/17 01:18 Dose: 100 mls/hr Levofloxacin (Levaquin 750 Mg Premixed Ivpb -) 750 mg in 150 mls @ 150 mls/hr IVPB [facility] Last Admin: 05/23/17 21:33 Dose: 150 mls/hr Lactulose (Cephulac (Oral Use)) 20 gm PO TID PRN PRN Reason: CONSTIPATION Oxycodone HCl (Roxicodone -) 10 mg PO Q4H PRN PRN Reason: PAIN Last Admin: 05/24/17 08:15 Dose: 10 mg Polyethylene Glycol (Miralax (For Daily Use) -) 17 gm PO DAILY [facility] Last Admin: 05/23/17 10:08 Dose: Not Given Topiramate (Topamax -) 50 mg PO BID [facility] Last Admin: 05/23/17 21:32 Dose: 50 mg - Objective Vital Signs: Vital Signs Temperature 97.2 F L 05/24/17 06:00 Pulse Rate 57 L 05/24/17 06:00 Respiratory Rate 18 05/24/17 06:00 Blood Pressure 126/55 05/24/17 06:00 O2 Sat by Pulse Oximetry (%) 97 05/23/17 21:00 Constitutional: Yes: Well Nourished, No Distress, Calm Respiratory: Yes: Regular Gastrointestinal: Yes: Normal Bowel Sounds, Soft. No: Distention, Tenderness, Tenderness, Epigastrium, Tenderness, Rebound, Vomiting Neurological: Yes: Alert, Oriented Labs: CBC, BMP 05/24/17 07:00 CBCD WBC 7.0 K/mm3 (4.0-10.0) 05/24/17 07:00 RBC 3.72 M/mm3 (3.60-5.2) 05/24/17 07:00 Hgb 11.6 GM/dL (10.7-15.3) 05/24/17 07:00 Hct 33.7 % (32.4-45.2) 05/24/17 07:00 MCV 90.4 fl (80-96) 05/24/17 07:00 MCHC 34.6 g/dl (32.0-36.0) 05/24/17 07:00 RDW 13.9 % (11.6-15.6) 05/24/17 07:00 Plt Count 182 K/MM3 (134-434) 05/24/17 07:00 MPV 7.6 fl (7.5-11.1) 05/24/17 07:00 CMP Sodium 143 mmol/L (136-145) 05/23/17 06:35 Potassium 3.3 mmol/L (3.5-5.1) L D 05/23/17 06:35 Chloride 113 mmol/L (98-107) H 05/23/17 06:35 Carbon Dioxide 21 mmol/L (21-32) 05/23/17 06:35 Anion Gap 9 (8-16) 05/23/17 06:35 BUN 8 mg/dL (7-18) 05/23/17 06:35 Creatinine 0.6 mg/dL (0.55-1.02) D 05/23/17 06:35 Creat Clearance w eGFR > 60 (>60) 05/23/17 06:35 Calcium 7.6 mg/dL (8.5-10.1) L 05/23/17 06:35 Total Bilirubin 0.5 mg/dL (0.2-1.0) 05/23/17 06:35 AST 15 U/L (15-37) 05/23/17 06:35 ALT 19 U/L (12-78) 05/23/17 06:35 Alkaline Phosphatase 87 U/L (45-117) D 05/23/17 06:35 Total Protein 5.8 g/dl (6.4-8.2) L D 05/23/17 06:35 Albumin 3.3 g/dl (3.4-5.0) L D 05/23/17 06:35 Problem List - Problems (1) Sigmoid diverticulosis Code(s): K57.30 - DVRTCLOS OF LG INT W/O PERFORATION OR ABSCESS W/O BLEEDING (2) Internal hemorrhoids without complication Code(s): K64.8 - OTHER HEMORRHOIDS Assessment/Plan regular, high fiber diet antispasmodics PRN as discussed with the patient
[2017-05-24] MEDS ORDERED: DICYCLOMINE HCL 10 MG CAPSULE PO PRN (09:06)
[2017-05-24 09:13] LABS: ANION GAP 10 (8-16); CALCIUM 8.1 mg/dL (8.5-10.1); CO2 19 mmol/L (21-32); GLUCOSE,RANDOM 123 mg/dL (74-106); MAGNESIUM 1.7 mg/dL (1.8-2.4)
[2017-05-24 09:14] LABS: CREATININE 0.6 mg/dL (0.55-1.02); PHOSPHOROUS 2.6 mg/dL (2.5-4.9)
[2017-05-24] MEDS: ASPIRIN 81 MG CHEWABLE TABLETS PO SCH (10:00)
[2017-05-24] MEDS: ESCITALOPRAM OXALATE 20 MG TABLET (FP) PO SCH (10:01)
[2017-05-24] MEDS: CARVEDILOL 3.125 MG TABLET (FP) PO SCH ×2 (10:01→21:18)
[2017-05-24] MEDS: POLYETHYLENE GLYCOL 3350 119 GM BTL PO SCH (10:01)
[2017-05-24] MEDS: TOPIRAMATE 25 MG TABLET (FP) PO SCH ×2 (10:01→21:18)
[2017-05-24] MEDS: CHOLECALCIFEROL (VITAMIN D3) 400 UNIT TABLET (FP) PO SCH (10:02)
[2017-05-24] MEDS: ALPRAZolam 2 MG TABLET PO SCH ×2 (10:02→21:17)
--- NOTE | 2017-05-24 13:29 | PN ---
Progress Note, Physician Chief Complaint: Ms Edouard complains of pain, unchanged. Says she does not feel like eating. No cp, sob, n/v. - Current Medication List Current Medications: Active Medications Acetaminophen (Tylenol -) 650 mg PO Q4H PRN PRN Reason: PAIN Stop: 05/26/17 15:19 Last Admin: 05/23/17 18:58 Dose: 650 mg Alprazolam (Xanax -) 1 mg PO BID [facility] Last Admin: 05/24/17 10:02 Dose: 1 mg Aspirin (Asa -) 81 mg PO DAILY [facility] Last Admin: 05/24/17 10:00 Dose: 81 mg Atorvastatin Calcium (Lipitor -) 40 mg PO HS [facility] Last Admin: 05/23/17 21:32 Dose: 40 mg Carvedilol (Coreg -) 3.125 mg PO BID [facility] Last Admin: 05/24/17 10:01 Dose: Not Given Cholecalciferol (Vitamin D3 -) 400 unit PO DAILY [facility] Last Admin: 05/24/17 10:02 Dose: 400 unit Dicyclomine HCl (Bentyl -) 20 mg PO Q6H PRN PRN Reason: MUSCLE SPASMS Escitalopram Oxalate (Lexapro -) 20 mg PO DAILY [facility] Last Admin: 05/24/17 10:01 Dose: 20 mg Gabapentin (Neurontin -) 600 mg PO TID [facility] Last Admin: 05/24/17 05:58 Dose: 600 mg Metronidazole (Flagyl 500mg Premixed Ivpb -) 500 mg in 100 mls @ 100 mls/hr IVPB Q8H-IV [facility] Last Admin: 05/24/17 10:01 Dose: 100 mls/hr Levofloxacin (Levaquin 750 Mg Premixed Ivpb -) 750 mg in 150 mls @ 150 mls/hr IVPB [facility] Last Admin: 05/23/17 21:33 Dose: 150 mls/hr Lactulose (Cephulac (Oral Use)) 20 gm PO TID PRN PRN Reason: CONSTIPATION Magnesium Oxide (Mag-Ox -) 800 mg PO ONCE ONE Stop: 05/24/17 13:22 Oxycodone HCl (Roxicodone -) 10 mg PO Q4H PRN PRN Reason: PAIN Last Admin: 05/24/17 08:15 Dose: 10 mg Polyethylene Glycol (Miralax (For Daily Use) -) 17 gm PO DAILY [facility] Last Admin: 05/24/17 10:01 Dose: Not Given Potassium Chloride (Potassium Chloride Oral Liquid) 40 meq PO ONCE ONE Stop: 05/24/17 13:22 Topiramate (Topamax -) 50 mg PO BID [facility] Last Admin: 05/24/17 10:01 Dose: 50 mg - Objective Vital Signs: Vital Signs Temperature 36.2 C L 05/24/17 09:48 Pulse Rate 52 L 05/24/17 09:48 Respiratory Rate 18 05/24/17 09:48 Blood Pressure 123/81 05/24/17 09:48 O2 Sat by Pulse Oximetry (%) 99 05/24/17 09:00 Constitutional: Yes: Well Nourished, No Distress, Calm Cardiovascular: Yes: Regular Rate and Rhythm. No: Gallop, Murmur, Rub Respiratory: Yes: Regular, CTA Bilaterally. No: Rales, Rhonchi, Wheezes Gastrointestinal: Yes: Normal Bowel Sounds, Soft. No: Distention, Tenderness Extremities: Yes: WNL Edema: No Labs: CBC, BMP 05/24/17 07:00 05/24/17 07:00 Problem List - Problems (1) CVA tenderness Code(s): M54.9 - DORSALGIA, UNSPECIFIED (2) Diverticulitis Code(s): K57.92 - DVTRCLI OF INTEST, PART UNSP, W/O PERF OR ABSCESS W/O BLEED Qualifiers: Diverticulitis site: large intestine Diverticulitis bleeding: without bleeding Diverticulitis complication: unspecified complication status Qualified Code(s): K57.32 - Diverticulitis of large intestine without perforation or abscess without bleeding (3) Anxiety Code(s): F41.9 - ANXIETY DISORDER, UNSPECIFIED (4) CAD (coronary artery disease) Code(s): I25.10 - ATHSCL HEART DISEASE OF [place] CORONARY ARTERY W/O ANG PCTRS Qualifiers: Coronary Disease-Associated Artery/Lesion type: [place] artery [place] vs. transplanted heart: [place] heart Associated angina: without angina Qualified Code(s): I25.10 - Atherosclerotic heart disease of [place] coronary artery without angina pectoris (5) Hyperlipidemia Code(s): E78.5 - HYPERLIPIDEMIA, UNSPECIFIED Qualifiers: Hyperlipidemia type: pure hypercholesterolemia Qualified Code(s): E78.00 - Pure hypercholesterolemia, unspecified (6) Constipation Code(s): K59.00 - CONSTIPATION, UNSPECIFIED Qualifiers: Constipation type: drug induced constipation Qualified Code(s): K59.03 - Drug induced constipation Assessment/Plan (1) CVA tenderness Assessment/Plan: -ultrasound negative Code(s): M54.9 - DORSALGIA, UNSPECIFIED (2) Diverticulitis Assessment/Plan: -continue levaquin and flagyl -tolerating diet, but complicated by history of eating disorder so difficult to tell if not eating secondary to pain or eating disorder -monitor today, plan for discharge tomorrow Code(s): K57.92 - DVTRCLI OF INTEST, PART UNSP, W/O PERF OR ABSCESS W/O BLEED Qualifiers: Diverticulitis site: large intestine Diverticulitis bleeding: without bleeding Diverticulitis complication: unspecified complication status Qualified Code(s): K57.32 - Diverticulitis of large intestine without perforation or abscess without bleeding (3) Anxiety Assessment/Plan: -continue xanax Code(s): F41.9 - ANXIETY DISORDER, UNSPECIFIED (4) CAD (coronary artery disease) Assessment/Plan: -quiescent -continue current regimen Code(s): I25.10 - ATHSCL HEART DISEASE OF [place] CORONARY ARTERY W/O ANG PCTRS Qualifiers: Coronary Disease-Associated Artery/Lesion type: [place] artery [place] vs. transplanted heart: [place] Associated angina: without angina Qualified Code(s): I25.10 - Atherosclerotic heart disease of [place] coronary artery without angina pectoris (5) Hyperlipidemia Assessment/Plan: -continue statin Code(s): E78.5 - HYPERLIPIDEMIA, UNSPECIFIED Qualifiers: Hyperlipidemia type: pure hypercholesterolemia Qualified Code(s): E78.00 - Pure hypercholesterolemia, unspecified (6) Constipation Assessment/Plan: -resolved -continue lactulose Code(s): K59.00 - CONSTIPATION, UNSPECIFIED Qualifiers: Constipation type: drug induced constipation Qualified Code(s): K59.03 - Drug induced constipation
[2017-05-24] MEDS ORDERED: PT OWN MED DRAWER 7, Y5N ONE (13:54)
[2017-05-24] MEDS ORDERED: MAGNESIUM OXIDE 400 MG TABLET (FP) PO ONE (14:15)
[2017-05-24] MEDS ORDERED: POTASSIUM CHLORIDE ORAL LIQUID 20 MEQ/15 ML PO ONE (14:15)
[2017-05-24] MEDS: LEVOFLOXACIN 750 MG IVPB 750 MG/150 ML BAG IVPB SCH (21:17)
[2017-05-24] MEDS: ATORVASTATIN CA 40 MG TABLET (FP) PO SCH (21:17)
[2017-05-25] MEDS: METRONIDAZOLE 500 MG PREMIXED 500 MG/100 ML MG IVPB SCH ×2 (01:30→10:07)
[2017-05-25] MEDS: oxyCODONE HCL 5 MG TABLET PO PRN ×2 (02:26→08:01)
[2017-05-25] MEDS: GABAPENTIN 300 MG CAPSULE (FP) PO SCH (05:36)
[2017-05-25] MEDS: ACETAMINOPHEN 325 MG TABLET (FP) PO PRN (08:03)
[2017-05-25 08:14] LABS: BASOPHIL 0.3 % (0-2.0); EOSINOPHIL 5.2 % (0-4.5); MCH 31.1 pg (25.7-33.7); MCHC 34.4 g/dl (32.0-36.0); MEAN CELL VOLUME 90.3 fl (80-96); MEAN PLT VOLUME 7.6 fl (7.5-11.1); NEUTROPHILS 57.5 % (42.8-82.8); PLATELET COUNT 191 K/MM3 (134-434); RDW 13.9 % (11.6-15.6); WHITE BLOOD COUNT 8.6 K/mm3 (4.0-10.0)
[2017-05-25 08:57] LABS: CALCIUM 7.7 mg/dL (8.5-10.1)
[2017-05-25 09:01] LABS: ANION GAP 11 (8-16); CO2 20 mmol/L (21-32); CREATININE 0.6 mg/dL (0.55-1.02); GLUCOSE,RANDOM 109 mg/dL (74-106); MAGNESIUM 1.8 mg/dL (1.8-2.4); PHOSPHOROUS 2.4 mg/dL (2.5-4.9)
--- NOTE | 2017-05-25 09:50 | PN ---
Progress Note, Physician History of Present Illness: No events. Tolerating regular diet. - Current Medication List Current Medications: Active Medications Acetaminophen (Tylenol -) 650 mg PO Q4H PRN PRN Reason: PAIN Stop: 05/26/17 15:19 Last Admin: 05/25/17 08:03 Dose: 650 mg Alprazolam (Xanax -) 1 mg PO BID [facility] Last Admin: 05/24/17 21:17 Dose: 1 mg Aspirin (Asa -) 81 mg PO DAILY [facility] Last Admin: 05/24/17 10:00 Dose: 81 mg Atorvastatin Calcium (Lipitor -) 40 mg PO [facility] Last Admin: 05/24/17 21:17 Dose: 40 mg Carvedilol (Coreg -) 3.125 mg PO BID [facility] Last Admin: 05/24/17 21:18 Dose: Not Given Cholecalciferol (Vitamin D3 -) 400 unit PO DAILY [facility] Last Admin: 05/24/17 10:02 Dose: 400 unit Dicyclomine HCl (Bentyl -) 20 mg PO Q6H PRN PRN Reason: MUSCLE SPASMS Escitalopram Oxalate (Lexapro -) 20 mg PO DAILY [facility] Last Admin: 05/24/17 10:01 Dose: 20 mg Gabapentin (Neurontin -) 600 mg PO TID [facility] Last Admin: 05/25/17 05:36 Dose: 600 mg Metronidazole (Flagyl 500mg Premixed Ivpb -) 500 mg in 100 mls @ 100 mls/hr IVPB Q8H-IV [facility] Last Admin: 05/25/17 01:30 Dose: 100 mls/hr Levofloxacin (Levaquin 750 Mg Premixed Ivpb -) 750 mg in 150 mls @ 150 mls/hr IVPB [facility] Last Admin: 05/24/17 21:17 Dose: 150 mls/hr Lactulose (Cephulac (Oral Use)) 20 gm PO TID PRN PRN Reason: CONSTIPATION Oxycodone HCl (Roxicodone -) 10 mg PO Q4H PRN PRN Reason: PAIN Last Admin: 05/25/17 08:01 Dose: 10 mg Polyethylene Glycol (Miralax (For Daily Use) -) 17 gm PO DAILY [facility] Last Admin: 05/24/17 10:01 Dose: Not Given Topiramate (Topamax -) 50 mg PO BID [facility] Last Admin: 05/24/17 21:18 Dose: 50 mg - Objective Vital Signs: Vital Signs Temperature 97.7 F 05/25/17 06:32 Pulse Rate 54 L 05/25/17 06:32 Respiratory Rate 18 05/25/17 06:32 Blood Pressure 110/75 05/25/17 06:32 O2 Sat by Pulse Oximetry (%) 99 05/24/17 21:00 Constitutional: Yes: Well Nourished, No Distress, Calm Gastrointestinal: Yes: Soft. No: Melena, Rectal Bleeding, Tenderness, Vomiting Labs: CBC, BMP 05/25/17 06:50 05/25/17 06:50 CBCD WBC 8.6 K/mm3 (4.0-10.0) 05/25/17 06:50 RBC 4.01 M/mm3 (3.60-5.2) 05/25/17 06:50 Hgb 12.5 GM/dL (10.7-15.3) 05/25/17 06:50 Hct 36.2 % (32.4-45.2) 05/25/17 06:50 MCV 90.3 fl (80-96) 05/25/17 06:50 MCHC 34.4 g/dl (32.0-36.0) 05/25/17 06:50 RDW 13.9 % (11.6-15.6) 05/25/17 06:50 Plt Count 191 K/MM3 (134-434) 05/25/17 06:50 MPV 7.6 fl (7.5-11.1) 05/25/17 06:50 CMP Sodium 146 mmol/L (136-145) H 05/25/17 06:50 Potassium 3.2 mmol/L (3.5-5.1) L 05/25/17 06:50 Chloride 115 mmol/L (98-107) H 05/25/17 06:50 Carbon Dioxide 20 mmol/L (21-32) L 05/25/17 06:50 Anion Gap 11 (8-16) 05/25/17 06:50 BUN 8 mg/dL (7-18) D 05/25/17 06:50 Creatinine 0.6 mg/dL (0.55-1.02) 05/25/17 06:50 Creat Clearance w eGFR > 60 (>60) 05/23/17 06:35 Calcium 7.7 mg/dL (8.5-10.1) L 05/25/17 06:50 Total Bilirubin 0.5 mg/dL (0.2-1.0) 05/23/17 06:35 AST 15 U/L (15-37) 05/23/17 06:35 ALT 19 U/L (12-78) 05/23/17 06:35 Alkaline Phosphatase 87 U/L (45-117) D 05/23/17 06:35 Total Protein 5.8 g/dl (6.4-8.2) L D 05/23/17 06:35 Albumin 3.3 g/dl (3.4-5.0) L D 05/23/17 06:35 Problem List - Problems (1) Sigmoid diverticulosis Code(s): K57.30 - DVRTCLOS OF LG INT W/O PERFORATION OR ABSCESS W/O BLEEDING (2) Internal hemorrhoids without complication Code(s): K64.8 - OTHER HEMORRHOIDS Assessment/Plan regular, high fiber diet antispasmodics PRN as discussed with the patient ok to d/c from GI perspective
[2017-05-25] MEDS: ESCITALOPRAM OXALATE 20 MG TABLET (FP) PO SCH (10:05)
[2017-05-25] MEDS: ALPRAZolam 2 MG TABLET PO SCH (10:06)
[2017-05-25] MEDS: TOPIRAMATE 25 MG TABLET (FP) PO SCH (10:06)
[2017-05-25] MEDS: ASPIRIN 81 MG CHEWABLE TABLETS PO SCH (10:06)
[2017-05-25] MEDS: POLYETHYLENE GLYCOL 3350 119 GM BTL PO SCH (10:07)
[2017-05-25] MEDS: CHOLECALCIFEROL (VITAMIN D3) 400 UNIT TABLET (FP) PO SCH (10:11)
[2017-05-25] MEDS: CARVEDILOL 3.125 MG TABLET (FP) PO SCH (10:13)
[2017-05-25] MEDS ORDERED: PT OWN MED DRAWER 7, Y5N ONE (10:21)
[2017-05-25 10:44] VITALS: BP 92/73; PULSE 50; TEMP 98.2
--- NOTE | 2017-05-25 11:32 | DS ---
Physical Examination Vital Signs: Vital Signs Temperature 36.8 C 05/25/17 08:00 Pulse Rate 50 L 05/25/17 08:00 Respiratory Rate 17 05/25/17 08:00 Blood Pressure 92/73 05/25/17 08:00 O2 Sat by Pulse Oximetry (%) 98 05/25/17 09:00 Constitutional: Yes: Well Nourished, No Distress, Calm Cardiovascular: Yes: Regular Rate and Rhythm. No: Gallop, Murmur, Rub Respiratory: Yes: Regular, CTA Bilaterally. No: Rales, Rhonchi, Wheezes Gastrointestinal: Yes: Normal Bowel Sounds, Soft. No: Distention, Tenderness Extremities: Yes: WNL Edema: No Labs: CBC, BMP 05/25/17 06:50 05/25/17 06:50 Discharge Summary Reason For Visit: DIVERTICULITIS OF INTESTINE INTRACTABLE Current Active Problems CVA tenderness (Acute) Diverticulitis (Acute) Internal hemorrhoids without complication (Acute) Intractable pain (Acute) Sigmoid diverticulosis (Acute) Eating disorder (Chronic) Hospital Course: (1) CVA tenderness Code(s): M54.9 - DORSALGIA, UNSPECIFIED (2) Diverticulitis Code(s): K57.92 - DVTRCLI OF INTEST, PART UNSP, W/O PERF OR ABSCESS W/O BLEED Qualifiers: Diverticulitis site: large intestine Diverticulitis bleeding: without bleeding Diverticulitis complication: unspecified complication status Qualified Code(s): K57.32 - Diverticulitis of large intestine without perforation or abscess without bleeding (3) Anxiety Code(s): F41.9 - ANXIETY DISORDER, UNSPECIFIED (4) CAD (coronary artery disease) Code(s): I25.10 - ATHSCL HEART DISEASE OF [place] CORONARY ARTERY W/O ANG PCTRS Qualifiers: Coronary Disease-Associated Artery/Lesion type: [place] artery [place] vs. transplanted heart: [place] heart Associated angina: without angina Qualified Code(s): I25.10 - Atherosclerotic heart disease of [place] coronary artery without angina pectoris (5) Hyperlipidemia Code(s): E78.5 - HYPERLIPIDEMIA, UNSPECIFIED Qualifiers: Hyperlipidemia type: pure hypercholesterolemia Qualified Code(s): E78.00 - Pure hypercholesterolemia, unspecified (6) Constipation Code(s): K59.00 - CONSTIPATION, UNSPECIFIED Qualifiers: Constipation type: drug induced constipation Qualified Code(s): K59.03 - Drug induced constipation Ms Edouard is a 52 year old female who comes in with abdominal pain and found to have diverticulitis. She was admitted to the hospital and started on levaquin and flagyl. She was seen by GI and this was continued, she underwent colonoscopy which showed internal hemorrhoids but no other pathology. She finished a full course of antibiotics while here and does not need any further treatment. She complained about CVA tenderness but all work up for this was negative. Her pain never truly resolved but has history of chronic pain and suspect she is at baseline. She has electrolyte abnormalities and these were replaced while here but they remained persistent, however she has a history of an eating disorder and remained anorexic while here by either skipping meals or eating minimal amount of her meals. This is a chronic problem that needs further outpatient management. She is encouraged to eat which will correct her electrolyte abnormalities naturally. She is safe for discharge home. 34 minutes spent in preparation of this discharge Condition: Stable - Instructions Diet, Activity, Other Instructions: resume previous diet and activity Referrals: Sandra Barry MD [Primary Care Provider] - Disposition: HOME - Home Medications Comprehensive Discharge Medication List: Ambulatory Orders Alprazolam [Xanax] 1 mg PO BID 04/15/16 Aspirin [ASA -] 81 mg PO DAILY 04/15/16 Atorvastatin Ca [Lipitor] 40 mg PO HS 04/15/16 Cholecalciferol (Vitamin D3) [Vitamin D -] 400 unit PO DAILY 04/15/16 Escitalopram Oxalate [Lexapro -] 20 mg PO DAILY 04/15/16 Gabapentin 600 mg PO TID 04/15/16 Topiramate 50 mg PO BID 04/15/16 Oxycodone HCl/Acetaminophen [Percocet 5-325 mg Tablet] 1 tab PO Q6H 05/21/16 Zolpidem Tartrate [Ambien] 10 mg PO HS 05/21/16 Polyethylene Glycol 3350 [Miralax 119 gm Btl -] 17 gm PO DAILY #1 bottle Carvedilol [Coreg -] 3.25 mg PO BID 05/19/17 Dicyclomine HCl [Bentyl -] 20 mg PO Q6H PRN #30 capsule 05/25/17 Lactulose (Oral Use) [Cephulac -] 20 gm PO TID PRN #1 bottle 05/25/17
== END 2017-05-25 12:38 | disposition home or self-care (01) | DRG 392 ==
LOC: JER 17:03 → JERBED 05-20 01:39 → UNDOADMOB 05-20 02:00 → J8W 05-20 03:37 → OBSVTOIN 05-23 15:06
PROVIDERS: ADMIT Internal Medicine; ATTEND Internal Medicine
PROC: 0DJD8ZZ Inspection of Lower Intestinal Tract, Via Natural or Artificial Opening Endoscopic (ICD-10-PCS; principal; 2017-05-23 11:30)
DX: K57.32 Diverticulitis of large intestine without perforation or abscess without bleeding (principal); K57.30 Diverticulosis of large intestine without perforation or abscess without bleeding; K64.4 Residual hemorrhoidal skin tags; K64.1 Second degree hemorrhoids; I25.10 Atherosclerotic heart disease of native coronary artery without angina pectoris; K59.03 Drug induced constipation; I25.2 Old myocardial infarction; J44.9 Chronic obstructive pulmonary disease, unspecified; E78.5 Hyperlipidemia, unspecified; N39.3 Stress incontinence (female) (male); F41.8 Other specified anxiety disorders; R63.0 Anorexia; Z68.31 Body mass index [BMI] 31.0-31.9, adult; G43.809 Other migraine, not intractable, without status migrainosus; M54.89 Other dorsalgia; Z87.891 Personal history of nicotine dependence; Z87.442 Personal history of urinary calculi; Z95.5 Presence of coronary angioplasty implant and graft; Z95.0 Presence of cardiac pacemaker; I11.0 Hypertensive heart disease with heart failure
CPT/HCPCS: 36415; 74177-TC; 76775-TC; 80048; 80053; 81003; 81015; 82550; 83690; 83735; 84100; 84484; 84703; 85025; 87086; 93005; 93010; 99285-25; G0378

== ENCOUNTER 2017-08-30 20:14 | Emergency (ER) | payer OTHER ==
[2017-08-30] MEDS ORDERED: ASPIRIN 81 MG CHEWABLE TABLETS PO ONE (20:16)
--- NOTE | 2017-08-30 20:20 | PDOC ---
Rapid Medical Evaluation Time Seen by Provider: 08/30/17 20:15 Medical Evaluation: Allergies Allergy/AdvReac Type Severity Reaction Status Date / Time No Known Allergies Allergy Verified 05/19/17 17:10 08/30/17 20:15 I have performed a brief in-person evaluation of this patient. The patient presents with a chief complaint of: chest pain and dizziness x3 days Pertinent physical exam findings: Lungs CTAB. S1S2 no m/r/g. I have ordered the following: cxr, labs, asa The patient will proceed to the ED for further evaluation. Discharge Disposition - Diagnosis Chest pain - Referrals - Patient Instructions - Post Discharge Activity
[2017-08-30 20:22] VITALS: BMI 28.7
[2017-08-30 20:33] LABS: BASO % 0.6 % (0-2.0); EOS % 2.6 % (0-4.5); HEMATOCRIT 39.2 % (32.4-45.2); HEMOGLOBIN 13.4 GM/dL (10.7-15.3); LYMPH % 22.7 % (8-40); MCH 31.2 pg (25.7-33.7); MCHC 34.1 g/dl (32.0-36.0); MEAN CELL VOLUME 91.5 fl (80-96); MEAN PLT VOLUME 7.8 fl (7.5-11.1); MONO % 7.1 % (3.8-10.2); PLATELET COUNT 245 K/MM3 (134-434); RBC 4.29 M/mm3 (3.60-5.2); RDW 13.6 % (11.6-15.6); WHITE BLOOD COUNT 9.5 K/mm3 (4.0-10.0)
[2017-08-30] MEDS ORDERED: ASPIRIN 81 MG CHEWABLE TABLETS ONE (20:34)
[2017-08-30 20:45] LABS: INR 1.18 (0.82-1.09); PROTHROMBIN TIME (PATIENT) 13.3 SEC (9.98-11.88)
--- NOTE | 2017-08-30 20:51 | PDOC ---
History of Present Illness - General History Source: Patient Exam Limitations: No Limitations - History of Present Illness Initial Comments: 08/30/17 21:09 The patient is a 52 year old female, with a significant past medical history of CAD cardiac stent 2010/pacemaker (02/2012), [place], CHF, COPD, HTN, HLD, kidney stents, kidney stones, stress incontinence, anorexia, anxiety, depression, Renal insufficiency, diverticulitis and ectopic , who presents to the emergency department with constant, midsternal chest pain since Tuesday. She reports being evaluated by Dr. Bell's N.P. on Tuesday where the LIFE GUARD stated the patients lung sounds were "wheezy" and was prescribed a nebulizer machine, however, secondary to insurance issues the patient has not been able to obtain the machine. The patient reports the pain as a "squeezing" pain to her midsternum with radiation to her back, 10/10 in severity, without alleviating or exacerbating factors of pain. She reports having a persistent dry cough. She states she had a fever of 102F on Tuesday, but has been afebrile since. She denies sick contacts. The patient denies nasal congestion, shortness of breath, headache and dizziness. The patient denies fever, vomit, diarrhea and constipation. The patient denies dysuria, frequency, urgency and hematuria. Allergies: None Past surgical history: Cardiac cath, stent, ppm/aicd Social history: No alcohol. Quit smoking 18 months ago. <Martha Still - Last Filed: 08/30/17 21:12> - General History Source: Patient <Samuel Cisneros - Last Filed: 08/30/17 22:53> - General Chief Complaint: Pain Stated Complaint: CHEST PAIN Time Seen by Provider: 08/30/17 20:15 Past History <Martha Still - Last Filed: 08/30/17 21:12> - Past Medical History Anemia: No Asthma: No Cancer: No Cardiac Disorders: Yes (cardiac stent 2010/pacemaker02/2012, [place]) CVA: No COPD: Yes CHF: Yes Dementia: No Diabetes: Yes GI Disorders: Yes Disorders: Yes (kidney stents, kidney stones, stress incontinence, KIDNEY FAILURE) HTN: Yes Hypercholesterolemia: Yes Liver Disease: No Psychiatric Problems: Yes (anxiety, anorexia, DEPRESSION.) Seizures: No Thyroid Disease: No - Surgical History Abdominal Surgery: Yes Appendectomy: No Cardiac Surgery: Yes (cardiac cath, stent, ppm/aicd) Cholecystectomy: No Lung Surgery: No Neurologic Surgery: No Orthopedic Surgery: No - Family Disease History Family Disease History: Heart Disease: Father - Immunization History Td Vaccination: Yes TDAP Vaccination: Yes Immunization Up to Date: No (no flu vaccine) - Suicide/Smoking/Psychosocial Hx Smoking Status: No Smoking History: Never smoked Years of Tobacco Use: 10 Have you smoked in the past 12 months: No Number of Cigarettes Smoked Daily: 7 If you are a former smoker, when did you quit?: 2014 Cigars Per Day: 0 Information on smoking cessation initiated: No 'Breaking Loose' booklet given: 12/15/14 Hx Alcohol Use: No Drug/Substance Use Hx: No Substance Use Type: None Hx Substance Use Treatment: No <Samuel Cisneros - Last Filed: 08/30/17 22:53> - Past Medical History Allergies/Adverse Reactions: Allergies Allergy/AdvReac Type Severity Reaction Status Date / Time No Known Allergies Allergy Verified 08/30/17 20:18 Home Medications: Ambulatory Orders Alprazolam [Xanax] 1 mg PO BID 04/15/16 Aspirin [ASA -] 81 mg PO DAILY 04/15/16 Atorvastatin Ca [Lipitor] 40 mg PO HS 04/15/16 Cholecalciferol (Vitamin D3) [Vitamin D -] 400 unit PO DAILY 04/15/16 Escitalopram Oxalate [Lexapro -] 20 mg PO DAILY 04/15/16 Gabapentin 600 mg PO TID 04/15/16 Topiramate 50 mg PO BID 04/15/16 Oxycodone HCl/Acetaminophen [Percocet 5-325 mg Tablet] 1 tab PO Q6H 05/21/16 Zolpidem Tartrate [Ambien] 10 mg PO HS 05/21/16 Polyethylene Glycol 3350 [Miralax 119 gm Btl -] 17 gm PO DAILY #1 bottle Carvedilol [Coreg -] 3.25 mg PO BID 05/19/17 Dicyclomine HCl [Bentyl -] 20 mg PO Q6H PRN #30 capsule 05/25/17 Lactulose (Oral Use) [Cephulac -] 20 gm PO TID PRN #1 bottle 05/25/17 Review of Systems - Review of Systems Able to Perform ROS?: Yes Comments:: 08/30/17 21:10 CONSTITUTIONAL: Absent: fever, chills, diaphoresis, generalized weakness, malaise, loss of appetite HEENT: Absent: rhinorrhea, nasal congestion, throat pain, throat swelling, difficulty swallowing, mouth swelling, ear pain, eye pain, visual Changes CARDIOVASCULAR: (+) squeezing chest pain, Absent: syncope, palpitations, irregular heart rate, lightheadedness, peripheral edema RESPIRATORY: Absent: cough, shortness of breath, dyspnea with exertion, orthopnea, wheezing, stridor, hemoptysis GASTROINTESTINAL: Absent: abdominal pain, abdominal distension, nausea, vomiting, diarrhea, constipation, melena, hematochezia GENITOURINARY: Absent: dysuria, frequency, urgency, hesitancy, hematuria, flank pain, genital pain MUSCULOSKELETAL: Absent: myalgia, arthralgia, joint swelling SKIN: Absent: rash, itching, pallor HEMATOLOGIC/IMMUNOLOGIC: Absent: easy bleeding, easy bruising, lymphadenopathy, frequent infections ENDOCRINE: Absent: unexplained weight gain, unexplained weight loss, heat intolerance, cold intolerance NEUROLOGIC: Absent: headache, focal weakness or paresthesias, dizziness, unsteady gait, seizure, mental status changes, bladder or bowel incontinence PSYCHIATRIC: Absent: anxiety, depression, suicidal or homicidal ideation, hallucinations. <Martha Still - Last Filed: 08/30/17 21:12> *Physical Exam - Vital Signs Last Vital Signs Temp Pulse Resp BP Pulse Ox 97.7 F 74 20 117/81 99 08/30/17 20:19 08/30/17 20:19 08/30/17 20:19 08/30/17 20:19 08/30/17 20:19 - Physical Exam Comments: 08/30/17 21:10 GENERAL: Well developed, well nourished. Awake and alert. No acute distress. HEENT: Normocephalic, atraumatic. PERRLA, EOMI. No conjunctival pallor. Sclera are non- icteric. Moist mucous membranes. Oropharynx is clear. NECK: Supple. Full ROM. No JVD. Carotid pulses 2+ and symmetric, without bruits. No thyromegaly. No lymphadenopathy. CARDIOVASCULAR: Regular rate and rhythm. No murmurs, rubs, or gallops. Distal pulses are 2+ and symmetric. PULMONARY: (+) diffuse scattered wheezing. No evidence of respiratory distress. No rales or rhonchi. ABDOMINAL: Soft. Non-tender. Non-distended. No rebound or guarding. No organomegaly. Normoactive bowel sounds. MUSCULOSKELETAL Normal range of motion at all joints. No bony deformities or tenderness. No CVA tenderness. EXTREMITIES: No cyanosis. No clubbing. No edema. No calf tenderness. SKIN: Warm and dry. Normal capillary refill. No rashes. No jaundice. NEUROLOGICAL: Alert, awake, appropriate. Cranial nerves 2-12 intact. Normoreflexic in the upper and lower extremities. Normal speech. Toes are down-going bilaterally. Gait is normal without ataxia. PSYCHIATRIC: Cooperative. Good eye contact. Appropriate mood and affect. <Martha Still - Last Filed: 08/30/17 21:12> - Vital Signs Last Vital Signs Temp Pulse Resp BP Pulse Ox 97.7 F 74 20 117/81 99 08/30/17 20:19 08/30/17 20:19 08/30/17 20:19 08/30/17 20:19 08/30/17 20:19 <Samuel Cisneros - Last Filed: 08/30/17 22:53> Heart Score/ECG Review - ECG Intrepretation Comment:: 08/30/17 21:12 EKG was reviewed bu Dr. Cisneros at 20:27 Impression: Normal sinus rhythm. Anteroseptal infarct of undetermined age Vent. Rate: 70 bpm GA Interval: 196 ms QTc: 369 ms <Martha Still - Last Filed: 08/30/17 21:12> ED Treatment Course - LABORATORY CBC & Chemistry Diagram: 08/30/17 20:30 08/30/17 20:30 - ADDITIONAL ORDERS Additional order review: Laboratory Results 08/30/17 20:30 Sodium 139 Potassium 3.7 Chloride 109 H Carbon Dioxide 20 L Anion Gap 10 BUN 11 Creatinine 0.8 Creat Clearance w eGFR > 60 Random Glucose 123 H Calcium 8.3 L Magnesium 2.0 Total Bilirubin 0.9 D AST 15 ALT 21 Alkaline Phosphatase 134 H Creatine Kinase 54 Troponin I < 0.02 Total Protein 7.6 Albumin 4.3 08/30/17 20:30 RBC 4.29 MCV 91.5 MCHC 34.1 RDW 13.6 MPV 7.8 Neutrophils % 67.0 Lymphocytes % 22.7 D Monocytes % 7.1 Eosinophils % 2.6 Basophils % 0.6 - Medications Given in the ED: ED Medications Discontinued Medications Generic Name Dose Route Start Last Admin Trade Name Freq PRN Reason Stop Dose Admin Aspirin 162 mg 08/30/17 20:16 08/30/17 20:35 Asa - PO 08/30/17 20:17 162 mg ONCE ONE Administration <Martha Still - Last Filed: 08/30/17 21:12> - LABORATORY CBC & Chemistry Diagram: 08/30/17 20:30 08/30/17 20:30 - Medications Given in the ED: ED Medications Discontinued Medications Generic Name Dose Route Start Last Admin Trade Name Freq PRN Reason Stop Dose Admin Aspirin 162 mg 08/30/17 20:16 08/30/17 20:35 Asa - PO 08/30/17 20:17 162 mg ONCE ONE Administration <Samuel Cisneros - Last Filed: 08/30/17 22:53> Medical Decision Making - Medical Decision Making 08/30/17 22:51 Dr. Cisneros: The scribe's documentation has been prepared under my direction and personally reviewed by me in its entirery. I confirm that the note above accurately reflects all work, treatment, procedures, and medical decision making performed by me. Cardiac enzymes, chest x-ray, and EKG shows no acute pathology. Air exchange has improved with nebulized treatments. patient will be discharged to follow up with her primary care physician <Samuel Cisneros - Last Filed: 08/30/17 22:53> *DC/Admit/Observation/Transfer - Attestations Scribe Attestion: 08/30/17 21:12 Documentation prepared by Martha Still, acting as senior medical writer for Samuel Cisneros DO <Martha Still - Last Filed: 08/30/17 21:12> - Discharge Dispostion Admit: No <Samuel Cisneros - Last Filed: 08/30/17 22:53> Diagnosis at time of Disposition: Chest pain - Discharge Dispostion Disposition: HOME Condition at time of disposition: Improved - Referrals Referrals: Sandra Barry MD [Primary Care Provider] - Mia Bell MD [Staff Physician] - - Patient Instructions Printed Discharge Instructions: DI for Chest Pain Additional Instructions: Please follow up with your doctors as scheduled. Return to the ER if any changes. Continue all your current medications - Post Discharge Activity
[2017-08-30] MEDS ORDERED: ALBUTEROL SO4 2.5/IPRATROPIUM 0.5 INH SOL 3 ML VIAL.NEB. NEB STA (20:52)
[2017-08-30] MEDS ORDERED: MAGNESIUM SULF 50% (8.12 MEQ/2 ML-1 GM VIAL) IVPB ONE (20:52)
[2017-08-30] MEDS ORDERED: morphine CARPU-JECT 2 MG/1 ML DISP.SYRIN IVPUSH ONE (20:53)
[2017-08-30 20:59] LABS: ALBUMIN 4.3 g/dl (3.4-5.0); ANION GAP 10 (8-16); BILIRUBIN,TOTAL 0.9 mg/dL (0.2-1.0); BLOOD UREA NITROGEN 11 mg/dL (7-18); CALCIUM 8.3 mg/dL (8.5-10.1); CHLORIDE 109 mmol/L (98-107); CO2 20 mmol/L (21-32); CREATININE 0.8 mg/dL (0.55-1.02); GLUCOSE,RANDOM 123 mg/dL (74-106); POTASSIUM 3.7 mmol/L (3.5-5.1); SGOT/AST 15 U/L (15-37); SGPT/ALT 21 U/L (12-78); SODIUM 139 mmol/L (136-145); TOT PROT 7.6 g/dl (6.4-8.2)
[2017-08-30 21:02] LABS: ALK PHOS 134 U/L (45-117)
[2017-08-30] MEDS ORDERED: MORPHINE SULFATE 10 MG/1 ML *VIAL ONE (21:10)
[2017-08-30] MEDS ORDERED: MAGNESIUM SULF 50% (8.12 MEQ/2 ML-1 GM VIAL) ONE (21:10)
[2017-08-30] MEDS ORDERED: ALBUTEROL SO4 2.5/IPRATROPIUM 0.5 INH SOL 3 ML VIAL.NEB. NEB ONE (21:55)
[2017-08-30 23:08] VITALS: BP 112/70; PULSE 66; TEMP 98.1
--- NOTE | 2017-08-31 17:07 | EKG ---
Test Reason : Blood Pressure : / mmHG Vent. Rate : 070 BPM Atrial Rate : 070 BPM P-R Int : 196 ms QRS Dur : 080 ms QT Int : 342 ms P-R-T Axes : 051 000 106 degrees QTc Int : 369 ms NORMAL SINUS RHYTHM ANTEROSEPTAL INFARCT (CITED ON OR BEFORE 16-OCT-2014) ABNORMAL ECG WHEN COMPARED WITH ECG OF 19-MAY-2017 18:19, QT HAS SHORTENED Confirmed by IVANNA CARNEY, TYRON ([id number]) on 08/31/2017 5:06:54 PM Referred By: Confirmed By:TYRON GONCALVES MD
== END 2017-08-30 23:12 | disposition home or self-care (01) ==
LOC: JER 20:14
PROC: 3E0F7GC Introduction of Other Therapeutic Substance into Respiratory Tract, Via Natural or Artificial Opening (ICD-10-PCS; principal; 2017-08-30)
PROC: 3E033NZ Introduction of Analgesics, Hypnotics, Sedatives into Peripheral Vein, Percutaneous Approach (ICD-10-PCS; 2017-08-30)
PROC: 3E033GC Introduction of Other Therapeutic Substance into Peripheral Vein, Percutaneous Approach (ICD-10-PCS; 2017-08-30)
DX: R07.89 Other chest pain (principal); I25.10 Atherosclerotic heart disease of native coronary artery without angina pectoris; I11.0 Hypertensive heart disease with heart failure; Z95.5 Presence of coronary angioplasty implant and graft; Z95.0 Presence of cardiac pacemaker; I25.2 Old myocardial infarction; J44.9 Chronic obstructive pulmonary disease, unspecified; F41.8 Other specified anxiety disorders; Z87.442 Personal history of urinary calculi; Z87.19 Personal history of other diseases of the digestive system
CPT/HCPCS: 36415; 71046-TC-FY; 80053; 82550; 83735; 83880; 84484; 85025; 85610; 93005; 93010; 94640; 96374; 96375; 99284-25

== ENCOUNTER 2017-10-07 21:25 | Emergency (ER) | payer OTHER ==
--- NOTE | 2017-10-07 21:53 | PDOC ---
Rapid Medical Evaluation Time Seen by Provider: 10/07/17 21:48 Medical Evaluation: Allergies Allergy/AdvReac Type Severity Reaction Status Date / Time No Known Allergies Allergy Verified 08/30/17 20:18 10/07/17 21:48 The patient presents with a chief complaint of: Pain in lower stomach since tuesday. Not eating well. States it feels like her diverticulitis pain. Also complaining of back pain. Vomited 4 times today. I have performed a brief in-person evaluation of this patient; Pertinent physical exam findings: ambulatory, in no respiratory distress. Diffuse abdominal tenderness, worse in the LLQ. (+) CVA tenderness on the R I have ordered the following: CBC, CMP, Pt/INR, Lipase, UA,UC The patient will proceed to the ED for further evaluation. Discharge Disposition - Referrals Referrals: Sandra Barry MD [Primary Care Provider] - - Patient Instructions - Post Discharge Activity
[2017-10-07 21:56] VITALS: BP 146/76; PULSE 60; TEMP 98.1; BMI 27.1
--- NOTE | 2017-10-07 22:47 | PDOC ---
History of Present Illness - General History Source: Patient Exam Limitations: No Limitations - History of Present Illness Initial Comments: 10/08/17 02:14 The patient is a 52 year old female, with a significant past medical history of CAD cardiac stent may 2011/pacemaker (02/2012), [place], CHF, COPD, hypertension, hyperlipidemia, kidney stents, kidney stones, stress incontinence, anorexia, anxiety, depression, renal insufficiency, diverticulitis, ectopic , who presents to the emergency department with, lower abdominal pain for 3 days. The patient states the lower abdominal pain is an achy constant pain that radiates to her upper abdomen. She denies any injury or trauma to the area. The patient states the abdominal pain feels exactly the same as her previous diverticulitis. The patient also reports nausea with emesis (non bloody, non bilious) and diarrhea since Tuesday. The patient states she has not been eating much secondary to nausea and states she has been able to tolerate sipping water. The patient states she saw her PCP Dr. Barry on Tuesday for a regular visit and had her electrolytes and kidneys checked which she states were normal but reports the doctor noted her bowel sounds were sleepy. She denies recent fevers, chills, headache or dizziness. She denies recent dysuria, frequency, urgency or hematuria. She denies recent chest pain or shortness of breath. Allergies: NKA Past surgical history: cardiac cath, stent, ppm/aicd PCP: Dr. Sandra Barry <Kennedy Rodrigez - Last Filed: 10/08/17 03:25> <Rajesh Ba - Last Filed: 10/08/17 03:53> - General Chief Complaint: Nausea/Vomiting Stated Complaint: ABD PAIN Time Seen by Provider: 10/07/17 21:48 Past History <Kennedy Rodrigez - Last Filed: 10/08/17 03:25> - Past Medical History Anemia: No Asthma: No Cancer: No Cardiac Disorders: Yes (cardiac stent 2010/pacemaker02/2012, [place]) CVA: No COPD: Yes CHF: Yes Dementia: No Diabetes: Yes GI Disorders: Yes Disorders: Yes (kidney stents, kidney stones, stress incontinence, KIDNEY FAILURE) HTN: Yes Hypercholesterolemia: Yes Liver Disease: No Psychiatric Problems: Yes (anxiety, anorexia, DEPRESSION.) Seizures: No Thyroid Disease: No - Surgical History Abdominal Surgery: Yes Appendectomy: No Cardiac Surgery: Yes (cardiac cath, stent, ppm/aicd) Cholecystectomy: No Lung Surgery: No Neurologic Surgery: No Orthopedic Surgery: No - Family Disease History Family Disease History: Heart Disease: Father - Immunization History Td Vaccination: Yes TDAP Vaccination: Yes Immunization Up to Date: No (no flu vaccine) - Suicide/Smoking/Psychosocial Hx Smoking Status: No Smoking History: Former smoker Years of Tobacco Use: 10 Have you smoked in the past 12 months: Yes Number of Cigarettes Smoked Daily: 7 If you are a former smoker, when did you quit?: 2014 Cigars Per Day: 0 Information on smoking cessation initiated: No 'Breaking Loose' booklet given: 12/15/14 Hx Alcohol Use: No Drug/Substance Use Hx: No Substance Use Type: None Hx Substance Use Treatment: No <Rajesh Ba - Last Filed: 10/08/17 03:53> - Past Medical History Allergies/Adverse Reactions: Allergies Allergy/AdvReac Type Severity Reaction Status Date / Time No Known Allergies Allergy Verified 10/07/17 21:54 Home Medications: Ambulatory Orders Alprazolam [Xanax] 1 mg PO BID 04/15/16 Aspirin [ASA -] 81 mg PO DAILY 04/15/16 Atorvastatin Ca [Lipitor] 40 mg PO HS 04/15/16 Gabapentin 600 mg PO TID 04/15/16 Topiramate 50 mg PO BID 04/15/16 Oxycodone HCl/Acetaminophen [Percocet 5-325 mg Tablet] 1 tab PO Q6H 05/21/16 Zolpidem Tartrate [Ambien] 10 mg PO HS 05/21/16 Carvedilol [Coreg -] 3.25 mg PO BID 05/19/17 Review of Systems - Review of Systems Comments:: 10/08/17 02:14 "CONSTITUTIONAL: No reported: Fever, Chills, Diaphoresis, Generalized Weakness, Malaise, Loss of Appetite HEENT: No reported: Rhinorrhea, Nasal Congestion, Throat Pain, Throat Swelling, Difficulty Swallowing, Mouth Swelling, Ear Pain, Eye Pain, Visual Changes CARDIOVASCULAR: No reported: Chest Pain, Syncope, Palpitations, Irregular Heart Rate, Lightheadedness, Peripheral Edema RESPIRATORY: No reported: Cough, Shortness of Breath, SOB with Exertion, Orthopnea, Wheezing , Stridor, Hemoptysis GASTROINTESTINAL: Present: +Lower abdominal pain, +Nausea, +Vomiting, +Diarrhea, No reported: Abdominal Distension, Constipation, Melena, Hematochezia GENITOURINARY: No reported: Dysuria, Frequency, Urgency, Hesitancy, Flank Pain, Genital Pain MUSCULOSKELETAL: No reported: Myalgia, Arthralgia, Joint Swelling, Back pain, Neck Pain SKIN: No reported: Rash, Itching, Pallor HEMEATOLOGIC/IMMUNOLOGIC: No reported: Easy Bleeding, Easy Bruising, Lymphadenopathy, Frequent infections ENDOCRINE: No reported: Unexplained Weight Gain, Unexplained Weight Loss, Heat Intolerance , Cold Intolerance NEUROLOGIC: No reported: Headache, Focal Weakness, Paresthesias, Vertigo, Lightheadedness, Unsteady Gait, Seizure, Mental Status Changes, Incontinence PSYCHIATRIC: No reported: Anxiety, Depression <Kennedy Rodrigez - Last Filed: 10/08/17 03:25> *Physical Exam - Vital Signs Last Vital Signs Temp Pulse Resp BP Pulse Ox 98.1 F 60 18 146/76 98 10/07/17 21:47 10/07/17 21:47 10/07/17 21:47 10/07/17 21:47 10/07/17 21:47 - Physical Exam Comments: 10/08/17 02:15 GENERAL: The patient is awake, alert, and fully oriented, Nontoxic - in no acute distress. HEAD: Normocephalic, atraumatic. EYES: extraocular movements intact, sclera anicteric, conjunctiva clear. ENT: Normal voice, Moist mucous membranes. NECK: Normal range of motion, supple LUNGS: Breath sounds equal, clear to auscultation bilaterally. No wheezes, no rhonchi, no rales. HEART: Regular rate and rhythm, normal S1 and S2 without murmur, rub or gallop. ABDOMEN: mild R cva tenderness, moderate lower abd tendernes, no rebound/ guarding. EXTREMITIES: Normal range of motion, no edema. No clubbing or cyanosis. No cords, erythema, or tenderness. NEUROLOGICAL: No facial assymetry, Normal speech, PSYCH: Normal mood, normal affect. SKIN: Warm, Dry, normal turgor, <Kennedy Rodrigez - Last Filed: 10/08/17 03:25> - Vital Signs Last Vital Signs Temp Pulse Resp BP Pulse Ox 98.1 F 60 18 146/76 98 10/07/17 21:47 10/07/17 21:47 10/07/17 21:47 10/07/17 21:47 10/07/17 21:47 <Rajesh Ba - Last Filed: 10/08/17 03:53> ED Treatment Course - LABORATORY CBC & Chemistry Diagram: 10/07/17 22:36 10/07/17 22:36 - ADDITIONAL ORDERS Additional order review: Laboratory Results 10/07/17 10/07/17 10/07/17 22:36 22:36 22:36 PT with INR INR Sodium 143 Potassium 3.8 Chloride 110 H Carbon Dioxide 22 Anion Gap 11 BUN 9 Creatinine 0.8 Creat Clearance w eGFR > 60 Random Glucose 79 Calcium 8.8 Total Bilirubin 0.6 D AST 20 ALT 25 Alkaline Phosphatase 103 Total Protein 6.9 Albumin 4.0 Lipase 68 L Urine Color Urine Appearance Urine pH Ur Specific Camilla Urine Protein Urine Glucose (UA) Urine Ketones Urine Blood Urine Nitrite Urine Bilirubin Urine Urobilinogen Ur Leukocyte Esterase Urine HCG, Qual Negative 10/07/17 10/07/17 22:36 22:36 PT with INR 14.60 H INR 1.29 H Sodium Potassium Chloride Carbon Dioxide Anion Gap BUN Creatinine Creat Clearance w eGFR Random Glucose Calcium Total Bilirubin AST ALT Alkaline Phosphatase Total Protein Albumin Lipase Urine Color Yellow Urine Appearance Cloudy Urine pH 7.0 D Ur Specific Camilla 1.014 Urine Protein Negative Urine Glucose (UA) Negative Urine Ketones Negative Urine Blood Negative Urine Nitrite Negative Urine Bilirubin Negative Urine Urobilinogen 2.0 H Ur Leukocyte Esterase Negative Urine HCG, Qual 10/07/17 22:36 RBC 3.94 MCV 91.4 MCHC 35.1 RDW 12.6 MPV 7.9 Neutrophils % 59.3 Lymphocytes % 31.1 D Monocytes % 6.1 Eosinophils % 2.8 Basophils % 0.7 - RADIOLOGY Radiograph Interpretation: 10/08/17 03:25 EXAM: ABDOMEN \\T\\ PELVIS CT WITH CONTR HISTORY: Abdominal pain COMPARISON: None. FINDINGS: Lung bases are clear. The visualized cardiac chambers are normal size and configuration. Mild bilateral renal scarring is noted without stones or hydronephrosis. Normal liver, gallbladder, pancreas, spleen, adrenal glands . The stomach and abdominal small and large bowel are normal. There is no aortic aneurysm. There is no significant retroperitoneal lymphadenopathy. The pelvic small and large bowel are normal. The appendix is normal pacemaker lead is noted. The uterus and adnexal structures are normal. Urinary bladder is unremarkable. There is no pelvic free fluid. No discrete pelvic lymphadenopathy is identified. IMPRESSION: Mild bilateral renal scarring. No definite acute pathology. Reported by Justin Morales MD - Medications Given in the ED: ED Medications Discontinued Medications Generic Name Dose Route Start Last Admin Trade Name Yani PRN Reason Stop Dose Admin Sodium Chloride 1,000 mls @ 1,000 mls/hr 10/07/17 23:15 10/08/17 00:22 Normal Saline - IV 10/08/17 00:14 1,000 mls/hr .Q1H ONE Administration Metoclopramide HCl 10 mg 10/07/17 23:15 10/07/17 23:40 Reglan Injection - IVPUSH 10/07/17 23:16 10 mg ONCE ONE Administration Morphine Sulfate 4 mg 10/07/17 23:15 10/07/17 23:35 Morphine Injection - IVPUSH 10/07/17 23:16 4 mg ONCE ONE Administration <Kennedy Rodrigez - Last Filed: 10/08/17 03:25> - LABORATORY CBC & Chemistry Diagram: 10/07/17 22:36 10/07/17 22:36 <Rajesh Ba - Last Filed: 10/08/17 03:53> Medical Decision Making - Medical Decision Making 10/07/17 23:16 52y F hx of CAD, copd, chf, htn, hl, aneorexia, kidney sotnes presents with complaint of lower abd pain associated with vomiting/diarrhea w/o fevers. on exam pt appears uncomfrotable with mild lower abd pain and L flank pain ddx includes possible pancreatitis, kidney stones, cystitis, appendicitis, acute gastroenteritis will ck labs, ua, ekg will give pain meds, fluids, reglan will reassess, consider imaging A portion of this note was documented by scribe services under my direction. I have reviewed the details of the note, within reason, and agree with the documentation with the following case summary and management plan written by me 10/08/17 03:[address] reveals no signs of acute pathology ua neg for infection 10/08/17 03:51 pt feeling improved abd soft nontender on repeat exam possible age will dc with pmd fu return precutions were dsicussed I discussed the physical exam findings, ancillary test results and final diagnoses with the patient. I answered all of the patient's questions. The patient was satisfied with the care received and felt comfortable with the discharge plan and treatment plan. The patient will call their primary care physician within 24 hours to arrange follow-up and will return to the Emergency Department with any new, persistent or worsening symptoms. <Rajesh Ba - Last Filed: 10/08/17 03:53> *DC/Admit/Observation/Transfer - Attestations Scribe Attestion: 10/08/17 02:15 Documentation prepared by Kennedy Rodrigez, acting as medical laboratory technologist for Rajesh Ba MD. <Kennedy Rodrigez - Last Filed: 10/08/17 03:25> - Discharge Dispostion Admit: No <Rajesh Ba - Last Filed: 10/08/17 03:53> Diagnosis at time of Disposition: Abdominal pain Qualifiers: Abdominal location: lower abdomen, unspecified Qualified Code(s): R10.30 - Lower abdominal pain, unspecified - Discharge Dispostion Disposition: HOME Condition at time of disposition: Improved - Referrals Referrals: Sandra Barry MD [Primary Care Provider] - - Patient Instructions Printed Discharge Instructions: DI for Abdominal Pain-Adult Additional Instructions: Return to the emergency department immediately with ANY new, persistent or worsening symptoms including worsening abdominal pain, fevers, inability to tolerate oral intake, chest pain, shortness of breath or any other concerns. Stay well hydrated. You MUST call and follow up with your doctor in 2-3 days for reevaluation.. Your emergency department visit is not complete without a followup with your doctor for reevaluation. Please make sure your doctor reviews the results of your emergency evaluation. Print Language: CHINESE - Post Discharge Activity
[2017-10-07] MEDS ORDERED: morphine CARPU-JECT 4 MG/1 ML DISP.SYRIN IVPUSH ONE (23:15)
[2017-10-07] MEDS ORDERED: SODIUM CHLORIDE 1,000 ML IV ONE (23:15)
[2017-10-07] MEDS ORDERED: METOCLOPRAMIDE HCL INJECTION 10 MG/2 ML VIAL IVPUSH ONE (23:15)
[2017-10-08] MEDS ORDERED: METOCLOPRAMIDE HCL INJECTION 10 MG/2 ML VIAL ONE (00:06)
[2017-10-08] MEDS ORDERED: MORPHINE SULFATE 10 MG/1 ML *VIAL ONE (00:06)
[2017-10-08 00:59] LABS: BASO % 0.7 % (0-2.0); EOS % 2.8 % (0-4.5); HEMOGLOBIN 12.6 GM/dL (10.7-15.3); LYMPH % 31.1 % (8-40); MCH 32.1 pg (25.7-33.7); MCHC 35.1 g/dl (32.0-36.0); MEAN CELL VOLUME 91.4 fl (80-96); MEAN PLT VOLUME 7.9 fl (7.5-11.1); MONO % 6.1 % (3.8-10.2); NEUT % 59.3 % (42.8-82.8); PLATELET COUNT 226 K/MM3 (134-434); RBC 3.94 M/mm3 (3.60-5.2); RDW 12.6 % (11.6-15.6); WHITE BLOOD COUNT 6.6 K/mm3 (4.0-10.0)
[2017-10-08 01:21] LABS: INR 1.29 (0.82-1.09); PROTHROMBIN TIME (PATIENT) 14.6 SEC (9.98-11.88)
[2017-10-08 01:23] LABS: ANION GAP 11 (8-16); BILIRUBIN,TOTAL 0.6 mg/dL (0.2-1.0); BLOOD UREA NITROGEN 9 mg/dL (7-18); CALCIUM 8.8 mg/dL (8.5-10.1); CHLORIDE 110 mmol/L (98-107); CO2 22 mmol/L (21-32); CREATININE 0.8 mg/dL (0.55-1.02); GLUCOSE,RANDOM 79 mg/dL (74-106); POTASSIUM 3.8 mmol/L (3.5-5.1); SGOT/AST 20 U/L (15-37); SGPT/ALT 25 U/L (12-78); SODIUM 143 mmol/L (136-145); TOT PROT 6.9 g/dl (6.4-8.2)
[2017-10-08 01:24] LABS: ALK PHOS 103 U/L (45-117)
[2017-10-08 01:45] LABS: URINE APPEARANCE CLOUDY; URINE BILIRUBIN NEGATIVE (<2.0 mg/dL); URINE BLOOD NEGATIVE (NEGATIVE); URINE COLOR YELLOW; URINE GLUCOSE (UA) NEGATIVE (NEGATIVE); URINE KETONE NEGATIVE (NEGATIVE); URINE LEUK ESTERASE NEGATIVE (NEGATIVE); URINE NITRITE NEGATIVE (NEGATIVE); URINE PROTEIN NEGATIVE (NEGATIVE)
== END 2017-10-08 04:21 | disposition home or self-care (01) ==
LOC: JER 21:25
PROC: 3E0337Z Introduction of Electrolytic and Water Balance Substance into Peripheral Vein, Percutaneous Approach (ICD-10-PCS; principal; 2017-10-07)
PROC: 3E033GC Introduction of Other Therapeutic Substance into Peripheral Vein, Percutaneous Approach (ICD-10-PCS; 2017-10-07)
PROC: 3E033NZ Introduction of Analgesics, Hypnotics, Sedatives into Peripheral Vein, Percutaneous Approach (ICD-10-PCS; 2017-10-07)
DX: R10.30 Lower abdominal pain, unspecified (principal); I25.10 Atherosclerotic heart disease of native coronary artery without angina pectoris; I11.0 Hypertensive heart disease with heart failure; Z95.5 Presence of coronary angioplasty implant and graft; I25.2 Old myocardial infarction; Z95.810 Presence of automatic (implantable) cardiac defibrillator; J44.9 Chronic obstructive pulmonary disease, unspecified; E78.5 Hyperlipidemia, unspecified; F41.8 Other specified anxiety disorders; N39.3 Stress incontinence (female) (male); Z87.442 Personal history of urinary calculi; Z87.19 Personal history of other diseases of the digestive system; Z95.828 Presence of other vascular implants and grafts; Z96.0 Presence of urogenital implants
CPT/HCPCS: 36415; 74177-TC; 80053; 81003; 83690; 84703; 85025; 85610; 87086; 96361; 96374; 96375; 99281-25; J7030

== ENCOUNTER 2017-11-07 09:47 | Inpatient (IN) | payer OTHER ==
[2017-11-07 11:04] LABS: BASO % 0.6 % (0-2.0); EOS % 2.3 % (0-4.5); HEMATOCRIT 38.5 % (32.4-45.2); HEMOGLOBIN 13.7 GM/dL (10.7-15.3); LYMPH % 32.9 % (8-40); MCH 31.4 pg (25.7-33.7); MCHC 35.5 g/dl (32.0-36.0); MEAN CELL VOLUME 88.5 fl (80-96); MEAN PLT VOLUME 8.1 fl (7.5-11.1); MONO % 5.9 % (3.8-10.2); NEUT % 58.3 % (42.8-82.8); PLATELET COUNT 193 K/MM3 (134-434); RBC 4.35 M/mm3 (3.60-5.2); RDW 12.2 % (11.6-15.6)
[2017-11-07 11:31] LABS: INR 1.21 (0.82-1.09); PROTHROMBIN TIME (PATIENT) 13.7 SEC (9.7-13.0)
[2017-11-07 11:34] LABS: ACTIVATED PTT 20.8 SECONDS (26.9-34.4)
--- NOTE | 2017-11-07 11:43 | PDOC ---
History of Present Illness - General History Source: Patient Exam Limitations: No Limitations - History of Present Illness Initial Comments: 11/07/17 11:45 The patient is a 52 year old female accompanied by family, with a significant past medical history of CAD (s/p stent and pacemaker), CHF, COPD, hypertension, hyperlipidemia, kidney stents, kidney stones, stress incontinence, anorexia, anxiety who presents to the emergency department with generalized weakness for the past several months. Patient reports living on water and rice cakes intentionally for the past 7-8 months. Patient reports drinking one bottle of water for two days and reports occasionally eating rice cakes. When she eats rice cakes, patient immediately takes Dulcolax to try to flush it out. Family reports patient has been fainting (7-8x) daily while sitting and standing. Patient reports head trauma and bilateral knee pain secondary to falls. Upon evaluation, patient reports being hospitalized in the past for her eating disorder and reports similar episodes like this. Patient also reports recently beginning tizanidine PO daily for muscle spasms. Patient was seen by her PCP for her generalied weakness and was sent to the ED for further evaluation. Denies SI/HI, AH/VH. Patient denies any recent stressors at home or in her personal life. Patient denies chest pain, palpitations, diaphoresis, headache or dizziness. Patient denies fever, chills, abdominal pain, nausea, vomit, constipation. Patient denies dysuria, frequency, urgency or hematuria. Patient denies sick contacts or recent travel. Allergies: NKA Past surgical history: Stent placement, Social history: denies etoh, smoking, recreational drug use PCP: Dr. Jamison <Yara Ny - Last Filed: 11/07/17 12:28> <Cynthia Roche - Last Filed: 11/07/17 14:08> - General Chief Complaint: Weakness Stated Complaint: DIZZINESS, BLOOD PRESSURE PROBLEM Time Seen by Provider: 11/07/17 10:17 Past History <Yara Ny - Last Filed: 11/07/17 12:28> - Past Medical History Anemia: No Asthma: No Cancer: No Cardiac Disorders: Yes (cardiac stent 2010/pacemaker02/2012, [place]) CVA: No COPD: Yes CHF: Yes DVT: No Dementia: No Diabetes: Yes GI Disorders: Yes (POOR APPETITE) Disorders: Yes (kidney stents, kidney stones, stress incontinence, KIDNEY FAILURE) HTN: Yes Hypercholesterolemia: Yes Liver Disease: No Psychiatric Problems: Yes (anxiety, anorexia, DEPRESSION.) Seizures: No Thyroid Disease: No - Surgical History Abdominal Surgery: Yes (ECTOPIC) Appendectomy: No Cardiac Surgery: Yes (cardiac cath, stent, ppm/aicd) Cholecystectomy: No Lung Surgery: No Neurologic Surgery: No Orthopedic Surgery: No - Family Disease History Family Disease History: Heart Disease: Father - Immunization History Td Vaccination: Yes TDAP Vaccination: Yes Immunization Up to Date: No (no flu vaccine) - Suicide/Smoking/Psychosocial Hx Smoking Status: No Smoking History: Former smoker Years of Tobacco Use: 10 Have you smoked in the past 12 months: Yes Number of Cigarettes Smoked Daily: 7 If you are a former smoker, when did you quit?: 2014 Cigars Per Day: 0 Information on smoking cessation initiated: No 'Breaking Loose' booklet given: 12/15/14 Hx Alcohol Use: No Drug/Substance Use Hx: No Substance Use Type: None Hx Substance Use Treatment: No <Cynthia Roche - Last Filed: 11/07/17 14:08> - Past Medical History Allergies/Adverse Reactions: Allergies Allergy/AdvReac Type Severity Reaction Status Date / Time No Known Allergies Allergy Verified 11/07/17 09:49 Home Medications: Ambulatory Orders Alprazolam [Xanax] 1 mg PO BID 04/15/16 Aspirin [ASA -] 81 mg PO DAILY 04/15/16 Atorvastatin Ca [Lipitor] 40 mg PO HS 04/15/16 Gabapentin 600 mg PO TID 04/15/16 Topiramate 50 mg PO BID 04/15/16 Oxycodone HCl/Acetaminophen [Percocet 5-325 mg Tablet] 1 tab PO Q6H 05/21/16 Zolpidem Tartrate [Ambien] 10 mg PO HS 05/21/16 Carvedilol [Coreg -] 6.25 mg PO BID 05/19/17 Buspirone HCl 15 mg PO BID 11/07/17 Tizanidine HCl 2 mg PO BID 11/07/17 Review of Systems - Review of Systems Able to Perform ROS?: Yes Comments:: 11/07/17 11:45 GENERAL/CONSTITUTIONAL: No fever or chills. +weakness. HEAD, EYES, EARS, NOSE AND THROAT: No change in vision. No ear pain or discharge. No sore throat. GASTROINTESTINAL: No nausea, vomiting, diarrhea or constipation. GENITOURINARY: No dysuria, frequency, or change in urination. CARDIOVASCULAR: No chest pain or shortness of breath. RESPIRATORY: No cough, wheezing, or hemoptysis. MUSCULOSKELETAL: No joint or muscle swelling or pain. No neck or back pain. SKIN: No rash NEUROLOGIC: No headache, vertigo, loss of consciousness, or change in strength/ sensation. ENDOCRINE: No increased thirst. No abnormal weight change. HEMATOLOGIC/LYMPHATIC: No anemia, easy bleeding, or history of blood clots. ALLERGIC/IMMUNOLOGIC: No hives or skin allergy. <Yara Ny - Last Filed: 11/07/17 12:28> *Physical Exam - Vital Signs Last Vital Signs Temp Pulse Resp BP Pulse Ox 97.7 F 57 L 18 127/66 100 11/07/17 09:49 11/07/17 09:49 11/07/17 09:49 11/07/17 09:49 11/07/17 09:49 - Physical Exam Comments: 11/07/17 11:45 GENERAL: Awake, alert, and fully oriented, in no acute distress HEAD: No signs of trauma EYES: PERRLA, EOMI, sclera anicteric, conjunctiva clear ENT: Auricles normal inspection, hearing grossly normal, nares patent, oropharynx clear without exudates. +glossitis, moist mucosa NECK: Normal ROM, supple, no lymphadenopathy, JVD, or masses LUNGS: Breath sounds equal, clear to auscultation bilaterally. No wheezes, and no crackles HEART: gio but regular, rate 57, normal S1 and S2, no murmurs, rubs or gallops ABDOMEN: Soft, nontender, normoactive bowel sounds. No guarding, no rebound. No masses EXTREMITIES: Normal range of motion, no edema. No clubbing or cyanosis. No cords , erythema, or tenderness NEUROLOGICAL: Normal speech, cranial nerves intact, negative pronator drift, 5/ 5 strength in all 4 extremities, normal sensation to light touch in all 4 extremities, normal cerebellar exam, normal gait, normal reflexes and tone SKIN: Warm, Dry, normal turgor, no rashes or lesions noted. <Yara Ny - Last Filed: 11/07/17 12:28> - Vital Signs Last Vital Signs Temp Pulse Resp BP Pulse Ox 97.7 F 57 L 18 127/66 100 11/07/17 09:49 11/07/17 09:49 11/07/17 09:49 11/07/17 09:49 11/07/17 09:49 <Cynthia Roche - Last Filed: 11/07/17 14:08> ED Treatment Course - LABORATORY CBC & Chemistry Diagram: 11/07/17 11:00 11/07/17 11:00 - ADDITIONAL ORDERS Additional order review: Laboratory Results 11/07/17 11/07/17 11:00 11:00 PT with INR 13.70 H INR 1.21 H PTT (Actin FS) 20.8 L Phosphorus Cancelled 11/07/17 11:00 RBC 4.35 MCV 88.5 MCHC 35.5 RDW 12.2 MPV 8.1 Neutrophils % 58.3 Lymphocytes % 32.9 Monocytes % 5.9 Eosinophils % 2.3 Basophils % 0.6 <Yara Ny - Last Filed: 11/07/17 12:28> - LABORATORY CBC & Chemistry Diagram: 11/07/17 11:00 11/07/17 11:00 - ADDITIONAL ORDERS Additional order review: Laboratory Results 11/07/17 11/07/17 11:00 11:00 PT with INR 13.70 H INR 1.21 H PTT (Actin FS) 20.8 L Phosphorus Cancelled 11/07/17 11:00 RBC 4.35 MCV 88.5 MCHC 35.5 RDW 12.2 MPV 8.1 Neutrophils % 58.3 Lymphocytes % 32.9 Monocytes % 5.9 Eosinophils % 2.3 Basophils % 0.6 - RADIOLOGY Radiology Studies Ordered: Category Date Time Status CERVICAL SPINE CT W/O CONTR [CT] Stat CT Scan 11/07/17 10:[address] WITHOUT CONTRAST [CT] Stat CT Scan 11/07/17 10:45 Ordered CHEST X-RAY PORTABLE* [RAD] Stat Radiology 11/07/17 10:18 Ordered <Cynthia Roche - Last Filed: 11/07/17 14:08> Medical Decision Making - Medical Decision Making 11/07/17 12:[address] Barry and discussed patients case. <Yara Ny - Last Filed: 11/07/17 12:28> - Medical Decision Making 11/07/17 11:41 52-year-old female with multiple medical problems including eating disorder presents emergency Department with multiple episodes of fainting in the setting of drinking only water for the last 7-8 months. Vitals with bradycardia otherwise unremarkable. Will check labs including electrolytes and admit 11/07/17 14:[address] Stanton's CHEMICAL LABORATORY TESTER, patient accepted for admission. Case discussed in detail with admitting physician including history, physical exam and ancillary studies. Admitting physician has assumed care for the patient, will follow all pending diagnostics and will complete the evaluation and treatment. <Cynthia Roche - Last Filed: 11/07/17 14:08> *DC/Admit/Observation/Transfer - Attestations Scribe Attestion: 11/07/17 11:46 Documentation prepared by Yara Ny, acting as biomedical engineering professor for Cynthia Roche MD. <Yara Ny - Last Filed: 11/07/17 12:28> - Discharge Dispostion Admit: Yes - Attestations Physician Attestion: 11/07/17 14:08 I, Dr. Cynthia Roche MD, attest that this document has been prepared under my direction and personally reviewed by me in its entirety. I further attest, that it accurately reflects all work, treatment, procedures and medical decision -making performed by me. <Cynthia Roche - Last Filed: 11/07/17 14:08> Diagnosis at time of Disposition: Syncope and collapse - Discharge Dispostion Condition at time of disposition: Stable - Referrals Referrals: Sandra Barry MD [Primary Care Provider] - - Patient Instructions - Post Discharge Activity
[2017-11-07 11:51] LABS: ALBUMIN 4.1 g/dl (3.4-5.0); ANION GAP 5 (8-16); BILIRUBIN,TOTAL 0.8 mg/dL (0.2-1.0); BLOOD UREA NITROGEN 10 mg/dL (7-18); CALCIUM 8.8 mg/dL (8.5-10.1); CHLORIDE 114 mmol/L (98-107); CO2 24 mmol/L (21-32); CREATININE 0.9 mg/dL (0.55-1.02); GLUCOSE,RANDOM 77 mg/dL (74-106); LIPASE 67 U/L (73-393); SGPT/ALT 20 U/L (12-78); SODIUM 143 mmol/L (136-145); TOT PROT 7.2 g/dl (6.4-8.2)
[2017-11-07 12:00] LABS: ALK PHOS 99 U/L (45-117)
[2017-11-07 12:01] LABS: MAGNESIUM 2.2 mg/dL (1.8-2.4); POTASSIUM 5.2 mmol/L (3.5-5.1); SGOT/AST 25 U/L (15-37)
--- NOTE | 2017-11-07 12:06 | EKG ---
Test Reason : Blood Pressure : / mmHG Vent. Rate : 054 BPM Atrial Rate : 054 BPM P-R Int : 194 ms QRS Dur : 074 ms QT Int : 482 ms P-R-T Axes : 098 -09 157 degrees QTc Int : 457 ms POOR DATA QUALITY, INTERPRETATION MAY BE ADVERSELY AFFECTED SINUS BRADYCARDIA WITH FREQUENT ventricular-paced complexes ANTEROSEPTAL INFARCT , AGE UNDETERMINED ABNORMAL ECG WHEN COMPARED WITH ECG OF 30-AUG-2017 20:27, ELECTRONIC VENTRICULAR PACEMAKER HAS REPLACED SINUS RHYTHM Confirmed by MIGUEL A RUANO MD ([id number]) on 11/07/2017 12:06:43 PM Referred By: Confirmed By:MIGUEL A RUANO MD
[2017-11-07] MEDS ORDERED: ACETAMINOPHEN 1000 MG/100 ML VIAL (NON FORMULARY) IVPB ONE (13:36)
[2017-11-07] MEDS ORDERED: SODIUM CHLORIDE 0.9% 500 ML INFUS.BAG IV ONE (13:49)
[2017-11-07] MEDS ORDERED: ACETAMINOPHEN INJECTION 100 ML IVPB ONE (14:00)
[2017-11-07 14:30] LABS: URINE APPEARANCE SLCLOUDY; URINE BILIRUBIN NEGATIVE (<2.0 mg/dL); URINE BLOOD NEGATIVE (NEGATIVE); URINE COLOR DKYELLOW; URINE GLUCOSE (UA) NEGATIVE (NEGATIVE); URINE KETONE 1+ (NEGATIVE); URINE LEUK ESTERASE NEGATIVE (NEGATIVE); URINE NITRITE NEGATIVE (NEGATIVE); URINE PROTEIN NEGATIVE (NEGATIVE)
[2017-11-07 14:46] LABS: COCAINE, UR NEGATIVE ng/ml (CUTOFF=300); METHADONE, UR NEGATIVE ng/ml (CUTOFF=300); OPIATES, URI POSITIVE ng/ml (CUTOFF=300); PHENCYCLIDINE,URINE NEGATIVE ng/ml (CUTOFF=25); URINE AMPHETAMINES NEGATIVE ng/ml (CUTOFF=500); URINE BARBITURATES NEGATIVE ng/ml (CUTOFF=200)
[2017-11-07 14:48] LABS: URINE BENZODIAZEPINES POSITIVE ng/ml (CUTOFF=200)
--- NOTE | 2017-11-07 15:02 | HP ---
Admitting History and Physical - Primary Care Physician PCP: Sandra Barry - Admission Chief Complaint: falls History of Present Illness: is a 52 year old female w/ pmh of anorexia nervosa, htn, cad, [place] s/p pci, ischemic cardiac myopathy s/p icd, hyperlipidemia, copd, chronic pain, anxiety/depression, who comes in with frequent syncopal episodes at home. She was at PCP office on Tuesday and was told to come into hospital. Pt reports she has fainted 8-9 times over the last month. Last fall was yesterday. She reports feeling dizzy,lightheaded and nauseous upon falls. She reports hitting her forehead and falling on her knees. She reports she has had anorexia nervosa since she's been 11 years old, tried multiple inpatient programs which have failed. She does not see an outpt psychiatrist. She reports eating and drinking very minimal for over the last 6 months. After a little po intake, she reports taking dulcolax. She also reports moderate abdominal and back pain which is chronic. She c/o mild chest/shoulder pain which started upon asking, which she believes it to be from her anxiety. She denies any suicidal/homicidal ideation/ plan. History Source: Patient Limitations to Obtaining History: No Limitations - Past Medical History Cardiovascular: Yes: CAD, CHF, HTN, Hyperlipdemia, [place], Other (ICD,S/P PCI/LEVI) Pulmonary: Yes: COPD (CPAP at home), Sleep Apnea (CPAP at home but only uses 3- 4x/week at night) Gastrointestinal: Yes: Constipation, Hemorrhoids Renal/: Yes: Renal Inusuff (past episode of NEYMAR) Psych: Yes: Anxiety, Other (body dysmorphic disorder) Musculoskeletal: Yes: Chronic low back pain Rheumatology: Yes: Fibromyalgia Endocrine: Yes: Diabetes Mellitus - Past Surgical History Past Surgical History: Yes: AICD, Colonoscopy, , Stent - Smoking History Smoking history: Former smoker Have you smoked in the past 12 months: Yes Aproximately how many cigarettes per day: 7 If you are a former smoker, when did you quit?: 2014 - Alcohol/Substance Use Hx Alcohol Use: No History of Substance Use: reports: None - Social History ADL: Independent History of Recent Travel: No Home Medications - Allergies Allergies/Adverse Reactions: Allergies Allergy/AdvReac Type Severity Reaction Status Date / Time No Known Allergies Allergy Verified 11/07/17 09:49 - Home Medications Home Medications: Ambulatory Orders Alprazolam [Xanax] 1 mg PO BID 04/15/16 Aspirin [ASA -] 81 mg PO DAILY 04/15/16 Atorvastatin Ca [Lipitor] 40 mg PO HS 04/15/16 Gabapentin 600 mg PO TID 04/15/16 Topiramate 50 mg PO BID 04/15/16 Oxycodone HCl/Acetaminophen [Percocet 5-325 mg Tablet] 1 tab PO Q6H 05/21/16 Zolpidem Tartrate [Ambien] 10 mg PO HS 05/21/16 Carvedilol [Coreg -] 6.25 mg PO BID 05/19/17 Buspirone HCl 15 mg PO BID 11/07/17 Tizanidine HCl 2 mg PO BID 11/07/17 Tizanidine HCl [Zanaflex (Nf) -] 2 mg PO BID 11/07/17 Family Disease History - Family Disease History Family Disease History: Diabetes: Mother (alive), Heart Disease: Grandparent ( paternal grandfather of heart at young age), Father ([place] at age 63 ), Mother Physical Examination Vital Signs: Vital Signs Temperature 97.7 F 11/07/17 09:49 Pulse Rate 57 L 11/07/17 09:49 Respiratory Rate 18 11/07/17 09:49 Blood Pressure 127/66 11/07/17 09:49 O2 Sat by Pulse Oximetry (%) 100 11/07/17 09:49 Labs: CBC, BMP 11/07/17 11:00 11/07/17 11:00 Imaging - Results Chest X-ray: Report Reviewed X-ray: Report Reviewed Cat Scan: Report Reviewed Ultrasound: Pending EKG: Pending Problem List - Problems (1) Syncope and collapse Assessment/Plan: 8-9 syncopal episodes over last month intentional reduced po intake secondary to anorexia nervosa head CT, chest xray, cervical spine imaging without acute findings labs unremarkable orthostatics ordered cardiac echo/carotid us ordered IVF fall precautions regular diet cardiology consulted Code(s): R55 - SYNCOPE AND COLLAPSE (2) Anorexia nervosa Assessment/Plan: chronic reduced po x 6 months now presents w/ frequent falls/syncope does not see outpt psychiatrist discussed with psych psych consulted possible inpt program if pt agrees Code(s): F50.00 - ANOREXIA NERVOSA, UNSPECIFIED (3) CHF (congestive heart failure) Assessment/Plan: chronic followed by cardiology outpt echo ordered cardiology consulted Code(s): I50.9 - HEART FAILURE, UNSPECIFIED Qualifiers: Heart failure type: systolic Heart failure chronicity: chronic Qualified Code(s): I50.22 - Chronic systolic (congestive) heart failure (4) Hyperlipidemia Assessment/Plan: chronic continue statin Code(s): E78.5 - HYPERLIPIDEMIA, UNSPECIFIED Qualifiers: Hyperlipidemia type: pure hypercholesterolemia Qualified Code(s): E78.00 - Pure hypercholesterolemia, unspecified; E78.0 - Pure hypercholesterolemia (5) Hypertension Assessment/Plan: well controlled continue coreg orthostatics ordered cardiology following Code(s): I10 - ESSENTIAL (PRIMARY) HYPERTENSION Qualifiers: Hypertension type: essential hypertension Qualified Code(s): I10 - Essential (primary) hypertension (6) coronary artery disease Assessment/Plan: history of [place], s/p PCI continue asa, statin (7) Chronic abdominal pain Assessment/Plan: no acute changes Code(s): R10.9 - UNSPECIFIED ABDOMINAL PAIN; G89.29 - OTHER CHRONIC PAIN (8) Chronic diarrhea Assessment/Plan: secondary to chronic laxative use Code(s): K52.9 - NONINFECTIVE GASTROENTERITIS AND COLITIS, UNSPECIFIED (9) Anxiety Assessment/Plan: chronic continue current management Code(s): F41.9 - ANXIETY DISORDER, UNSPECIFIED Assessment/Plan Dispo: awaiting cardiology and psych clearance . possible inpt program for anorexia nervosa if pt agrees. Discussed with pt, once medically cleared by cardiology, the option of inpt program for anorexia nervosa, pt reports she wants to talk to someone here and then decide, Psych consulted for further assistance
[2017-11-07] MEDS ORDERED: ACETAMINOPHEN 325 MG TABLET (FP) PO PRN (15:29)
[2017-11-07] MEDS: DEXTROSE 5%-0.45% SALINE 1,000 ML IV SCH (15:30)
[2017-11-07] MEDS ORDERED: oxyCODONE HCL 5 MG TABLET ONE (15:46)
--- NOTE | 2017-11-07 15:46 | CON.CARD ---
Consult Consult Specialty:: Cardiology Referred by:: Herve Stevens MD Reason for Consultation:: Recurrent syncope - History of Present Illness Chief Complaint: Recurrent syncope History of Present Illness: Patient is a 52 year old female with underlying history of CAD, [place], S/P PCI/LEVI to LAD in 2010, ischemic cardiomyopathy S/P ICD in 2011, patent stent demonstrated by cath in 2016, HTN, hypercholesterolemia, COPD and OSAS, anxiety , depression, anorexia nervousa, sigmoid diverticulitis presents for recurrent syncopal episodes 8-9 times in the last month. She reports feeling dizzy, lightheaded, nausea and sees visual scotoma prior to episodes. She reports hitting her forehead and falling on her knees. She reports she has had anorexia nervosa since she's been 11 years old, tried multiple inpatient programs which have failed. She does not see an outpt psychiatrist. She denies chest pain, shocks, palpitations, orthopnea, PND or LE edema. - History Source History Provided By: Patient Limitations to Obtaining History: No Limitations - Past Medical History Cardio/Vascular: Yes: CAD, CHF, HTN, Hyperlipdemia, [place], Other (ICD,S/P PCI/LEVI) Pulmonary: Yes: COPD (CPAP at home), Sleep Apnea (CPAP at home but only uses 3- 4x/week at night) Gastrointestinal: Yes: Constipation, Hemorrhoids Renal/: Yes: Renal Inusuff (past episode of NEYMAR) Psych: Yes: Other (body dysmorphic disorder) Musculoskeletal: Yes: Chronic low back pain Rheumatology: Yes: Fibromyalgia Endocrine: Yes: Diabetes Mellitus - Past Surgical History Past Surgical History: Yes: AICD, Colonoscopy, , Stent - Alcohol/Substance Use Hx Alcohol Use: No History of Substance Use: reports: None - Smoking History Smoking history: Former smoker Have you smoked in the past 12 months: Yes Aproximately how many cigarettes per day: 7 If you are a former smoker, when did you quit?: 2014 - Social History Usual Living Arrangement: With Spouse (rafiq) ADL: Independent History of Recent Travel: No Home Medications - Allergies Allergies/Adverse Reactions: Allergies Allergy/AdvReac Type Severity Reaction Status Date / Time No Known Allergies Allergy Verified 11/07/17 09:49 - Home Medications Home Medications: Ambulatory Orders Alprazolam [Xanax] 1 mg PO BID 04/15/16 Aspirin [ASA -] 81 mg PO DAILY 04/15/16 Atorvastatin Ca [Lipitor] 40 mg PO HS 04/15/16 Gabapentin 600 mg PO TID 04/15/16 Topiramate 50 mg PO BID 04/15/16 Oxycodone HCl/Acetaminophen [Percocet 5-325 mg Tablet] 1 tab PO Q6H 05/21/16 Zolpidem Tartrate [Ambien] 10 mg PO HS 05/21/16 Carvedilol [Coreg -] 6.25 mg PO BID 05/19/17 Buspirone HCl 15 mg PO BID 11/07/17 Tizanidine HCl 2 mg PO BID 11/07/17 Tizanidine HCl [Zanaflex (Nf) -] 2 mg PO BID 11/07/17 Family Disease History - Family Disease History Family Disease History: Diabetes: Mother (alive), Heart Disease: Grandparent ( paternal grandfather of heart at young age), Father ([place] at age 63 ), Mother Review of Systems - Review of Systems Neurological: reports: Syncope Vital Signs: Vital Signs Temperature 97.7 F 11/07/17 09:49 Pulse Rate 52 L 11/07/17 14:30 Respiratory Rate 18 11/07/17 14:30 Blood Pressure 92/59 11/07/17 14:30 O2 Sat by Pulse Oximetry (%) 100 11/07/17 14:30 Constitutional: Yes: No Distress, Calm, Thin Neck: Yes: Supple Respiratory: Yes: Regular, CTA Bilaterally Gastrointestinal: Yes: Normal Bowel Sounds, Soft Cardiovascular: Yes: Regular Rate and Rhythm JVD: No Carotid Bruit: No Heart Sounds: Yes: S1, S2 Edema: No - Other Data Labs, Other Data: CBC, BMP 11/07/17 11:00 11/07/17 11:00 INR, PTT INR 1.21 (0.82-1.09) H 11/07/17 11:00 Troponin, BNP 11/07/17 11:00 Troponin I < 0.02 Troponin, BNP 11/07/17 11:00 Troponin I < 0.02 V-paced -> SB Echo: Report Reviewed Prior Cardiac Procedures: PTCA with Stent Ejection Fraction %: LVEF > or = 40 % Imaging - Results Chest X-ray: Report Reviewed (NAD) Cat Scan: Report Reviewed (No acute changes) Problem List - Problems (1) Anorexia nervosa Code(s): F50.00 - ANOREXIA NERVOSA, UNSPECIFIED (2) Syncope and collapse Code(s): R55 - SYNCOPE AND COLLAPSE (3) Anxiety Code(s): F41.9 - ANXIETY DISORDER, UNSPECIFIED (4) CAD (coronary artery disease) Code(s): I25.10 - ATHSCL HEART DISEASE OF [place] CORONARY ARTERY W/O ANG PCTRS Qualifiers: Coronary Disease-Associated Artery/Lesion type: [place] artery [place] vs. transplanted heart: [place] heart Associated angina: without angina Qualified Code(s): I25.10 - Atherosclerotic heart disease of [place] coronary artery without angina pectoris (5) Diabetes mellitus Code(s): E11.9 - TYPE 2 DIABETES MELLITUS WITHOUT COMPLICATIONS Qualifiers: Diabetes mellitus type: type 2 Diabetes mellitus terminal operations supervisor insulin use: without terminal operations supervisor use Diabetes mellitus complication status: with hyperglycemia Qualified Code(s): E11.65 - Type 2 diabetes mellitus with hyperglycemia (6) Hypotension due to drugs Code(s): I95.2 - HYPOTENSION DUE TO DRUGS (7) Neurocardiogenic syncope Code(s): R55 - SYNCOPE AND COLLAPSE (8) Orthostatic hypotension Code(s): I95.1 - ORTHOSTATIC HYPOTENSION (9) Chronic left ventricular systolic dysfunction Code(s): I51.9 - HEART DISEASE, UNSPECIFIED (10) Hyperlipidemia Code(s): E78.5 - HYPERLIPIDEMIA, UNSPECIFIED Qualifiers: Hyperlipidemia type: pure hypercholesterolemia Qualified Code(s): E78.00 - Pure hypercholesterolemia, unspecified; E78.0 - Pure hypercholesterolemia (11) Hypertension Code(s): I10 - ESSENTIAL (PRIMARY) HYPERTENSION Qualifiers: Hypertension type: essential hypertension Qualified Code(s): I10 - Essential (primary) hypertension (12) Sleep apnea Code(s): G47.30 - SLEEP APNEA, UNSPECIFIED Qualifiers: Sleep apnea type: obstructive Qualified Code(s): G47.33 - Obstructive sleep apnea (adult) (pediatric) (13) Status post insertion of drug-eluting stent into left anterior descending artery for coronary artery disease Code(s): Z98.61 - CORONARY ANGIOPLASTY STATUS (14) Status post myocardial infarction of anterior wall Code(s): I25.2 - OLD MYOCARDIAL INFARCTION Assessment/Plan Echocardiography dated 11/23 revealed LV mildly dilated with wall motion abnormality, EF mildly reduced, moderate MR and mild TR MPI study dated 11/22 revealed mildly reduced EF with apical fixed defect infarct [facility]& coronary angiography dated 11/23 revealed non-obstructive CAD, patent LAD stent, moderate decreased LV systolic function with LVEF 45% with severe anterior, hannah-lateral hypokinesia 1. Neurocardiogenic +/- orthostatic syncope with recurrence 2. CAD S/P PCI/stent, angina pectoris 3. Ischemic cardiomyopathy with history of failure S/P ICD, euvolemic 4. HTN/HCVD 5. Hypercholesterolemia 6. OSAS noncompliant with CPAP 7. Depression/anxiety/eating disorder 8. Mild COPD 9. Uncontrolled diabetes mellitus PLAN: 1. Check orthostatic vital signs, interrogate ICD, crisis counselor on abortive maneuvers once prodromal sxs have been experienced, hydrate 2. Continue ASA 81 qd, Carvedilol 6.25 bid and resume Prinivil 2.5 qd once hyperkalemia as hemodynamics tolerate 3. CPAP nightly and O2 as needed 4. F/u repeat echo results 5. Thank you for consultative opportunity
[2017-11-07] MEDS: oxyCODONE HCL 5 MG TABLET PO PRN (15:51)
[2017-11-07 18:50] VITALS: BMI 23.4
[2017-11-07] MEDS: GABAPENTIN 300 MG CAPSULE (FP) PO SCH (21:21)
[2017-11-07] MEDS: busPIRone HCL 5 MG TABLET PO SCH (21:21)
[2017-11-07] MEDS: ATORVASTATIN CA 40 MG TABLET (FP) PO SCH (21:21)
[2017-11-07] MEDS: ALPRAZolam 2 MG TABLET PO SCH (21:21)
[2017-11-07] MEDS: CARVEDILOL 6.25 MG TABLET (FP) PO SCH (21:53)
[2017-11-07] MEDS ORDERED: ZOLPIDEM TARTRATE 5 MG TABLET PO PRN (22:00)
[2017-11-07] MEDS ORDERED: PATIENT'S OWN MEDICATION (NON-FORMULARY) (Zolpidem Tartrate [Ambien] 10 MG) PO SCH (22:00)
[2017-11-07] MEDS ORDERED: PATIENT'S OWN MEDICATION (NON-FORMULARY) (Tizanidine Hcl 2 MG) PO SCH (22:00)
[2017-11-07] MEDS: TIZANIDINE HCL 2 MG TABLET PO SCH (22:32)
[2017-11-07] MEDS: TOPIRAMATE 25 MG TABLET (FP) PO SCH (22:32)
[2017-11-08] MEDS: GABAPENTIN 300 MG CAPSULE (FP) PO SCH ×3 (05:54→21:13)
[2017-11-08 07:29] LABS: BASO % 0.5 % (0-2.0); EOS % 2.5 % (0-4.5); HEMATOCRIT 35.9 % (32.4-45.2); HEMOGLOBIN 12.6 GM/dL (10.7-15.3); MCH 31.4 pg (25.7-33.7); MCHC 35.2 g/dl (32.0-36.0); MEAN CELL VOLUME 89.3 fl (80-96); MEAN PLT VOLUME 9.4 fl (7.5-11.1); MONO % 5.8 % (3.8-10.2); NEUT % 72.2 % (42.8-82.8); PLATELET COUNT 175 K/MM3 (134-434); RBC 4.02 M/mm3 (3.60-5.2); RDW 12.1 % (11.6-15.6); WHITE BLOOD COUNT 6.3 K/mm3 (4.0-10.0)
--- NOTE | 2017-11-08 07:32 | PN ---
Mental Health Exam - Mental Status Exam Alert and Oriented to: Time, Place, Person Cognitive Function: Grossly Intact Patient Appearance: Well Groomed (NAILS NEATLY POLISHED, BUT UNKEMPT HAIR IN BED. ) Mood: Apathetic, Anxious, Apprehensive Affect: Mood Congruent Patient Behavior: Dependent ("CAN YOU FIND A PSYCHIATRIST FOR ME IN THE COMMUNITY"), Talkative, Cooperative Speech Pattern: Clear, Perseverating, Tangential Voice Loudness: Moderately Soft/Quiet, Limited Variation (SOME QUIVER IN HER SPEECH. ) Thought Process: Intact Thought Disorder: Not Present Hallucinations: None Suicidal Ideation: Denies, No Plan ("I LOVE MY KIDS TOO MUCH". ) Homicidal Ideation: None, No Plan Insight/Judgement: Fair Sleep: Fair ("WAKE UP AT 3 AM". ) Appetite: Poor ("I ONLY DRINK WATER AT HOME:. ), Weight loss (130 LBS, BMI <24) Muscle strength/Tone: Normal Gait/Station: Deferred
--- NOTE | 2017-11-08 07:39 | PN ---
Progress Note (short form) - Note Progress Note: tHIS IS A 52 YO FEMALE SEEN TODAY WITH ANOREXA AND RECENT SCYNCOPE RELATED TO ORTHOSTATIC?, NOT EATING ?, [facility] [place] [facility] partial hospitalization for anorexia nervosa unit. Client has anxiety disorder, fibromylagia, dysthimia, depression. Currently on buspar 15 po bid, toprimate, gapapentin 600mg po tid. Takes xanax 1mg po bid and oxy codone for chronic back pain. also used ambien for sleep. denies alchol, uses marjuanna. utosx pos for estasy also. 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 Plan Recommend out patient psych on discharge, including therapist bi weekly Codnitive behaviour therapy. Continue buspar, neurontin, toprimate. supportive care outpatient rehab if she agreed.
[2017-11-08 08:52] LABS: ANION GAP 10 (8-16); BLOOD UREA NITROGEN 7 mg/dL (7-18); CALCIUM 8.3 mg/dL (8.5-10.1); CHLORIDE 112 mmol/L (98-107); CO2 21 mmol/L (21-32); CREATININE 0.7 mg/dL (0.55-1.02); GLUCOSE,RANDOM 161 mg/dL (74-106); MAGNESIUM 1.9 mg/dL (1.8-2.4); PHOSPHOROUS 2.9 mg/dL (2.5-4.9); POTASSIUM 3.5 mmol/L (3.5-5.1); SODIUM 143 mmol/L (136-145)
[2017-11-08] MEDS: ASPIRIN 81 MG CHEWABLE TABLETS PO SCH (09:24)
[2017-11-08] MEDS: TOPIRAMATE 25 MG TABLET (FP) PO SCH ×2 (09:25→21:17)
[2017-11-08] MEDS: busPIRone HCL 5 MG TABLET PO SCH ×2 (09:25→21:13)
[2017-11-08] MEDS: TIZANIDINE HCL 2 MG TABLET PO SCH ×2 (09:25→21:17)
[2017-11-08] MEDS: CARVEDILOL 6.25 MG TABLET (FP) PO SCH ×2 (09:25→21:13)
[2017-11-08] MEDS: ALPRAZolam 2 MG TABLET PO SCH ×2 (09:26→21:13)
[2017-11-08] MEDS ORDERED: SODIUM CHLORIDE 1,000 ML IV STA (09:30)
--- NOTE | 2017-11-08 10:03 | PN ---
Progress Note (short form) - Note Progress Note: Chief Complaint: Events noted, notes reviewed, lethargic but easily arousable, denies any chest pain or dyspnea History of Present Illness: Seen and examined on telemetry. Events noted, notes reviewed, lethargic but easily arousable, denies any chest pain or dyspnea Echocardiography dated 11/2015 revealed LV mildly dilated with wall motion abnormality, EF mildly reduced, moderate MR and mild TR MPI study dated 11/2014 revealed mildly reduced EF with apical fixed defect infarct [facility]& coronary angiography dated 11/23 revealed non-obstructive CAD, patent LAD stent, moderate decreased LV systolic function with LVEF 45% with severe anterior, hannah-lateral hypokinesia Medical therapy Current Medications Acetaminophen (Tylenol -) 325 mg PO Q8H PRN PRN Reason: PAIN LEVEL 6-10 Alprazolam (Xanax -) 1 mg PO BID [facility] Last Admin: 11/08/17 09:26 Dose: 1 mg Aspirin (Asa -) 81 mg PO DAILY [facility] Last Admin: 11/08/17 09:24 Dose: 81 mg Atorvastatin Calcium (Lipitor -) 40 mg PO HS [facility] Last Admin: 11/07/17 21:21 Dose: 40 mg Buspirone HCl (Buspar -) 15 mg PO BID [facility] Last Admin: 11/08/17 09:25 Dose: 15 mg Carvedilol (Coreg -) 6.25 mg PO BID [facility] Last Admin: 11/08/17 09:25 Dose: 6.25 mg Gabapentin (Neurontin -) 600 mg PO TID [facility] Last Admin: 11/08/17 05:54 Dose: 600 mg Dextrose/Sodium Chloride (D5-1/2ns -) 1,000 mls @ 42 mls/hr IV ASDIR [facility] Last Admin: 11/07/17 15:30 Dose: 42 mls/hr Sodium Chloride (Normal Saline -) 1,000 mls @ 1,000 mls/hr IV ASDIR [facility] Stop: 11/08/17 10:29 Oxycodone HCl (Roxicodone -) 5 mg PO Q8H PRN PRN Reason: 6-10 Last Admin: 11/07/17 15:51 Dose: 5 mg Tizanidine HCl (Tizanidine Hcl) 2 mg PO BID [facility] Last Admin: 11/08/17 09:25 Dose: 2 mg Topiramate (Topamax -) 50 mg PO BID [facility] Last Admin: 11/08/17 09:25 Dose: 50 mg Zolpidem Tartrate (Ambien -) 5 mg PO HS PRN PRN Reason: INSOMNIA Last Admin: 11/08/17 00:12 Dose: 5 mg Review of Systems: Constitutional: Denies fever, chills or weight loss Head and Neck: Denies Headaches, photophobia or blurring of vision Respiratory: Denies cough or sputum production Cardiovascular: As noted above Gastrointestinal: Denies nausea, vomiting, diarrhea or abdominal discomfort Genitourinary: Denies frequency or urgency Musculoskeletal: As noted above Endocrine: DM Physical Examination: Last Vital Signs Temp Pulse Resp BP Pulse Ox 98.4 F 52 L 18 105/55 99 11/08/17 05:53 11/08/17 05:53 11/08/17 05:53 11/08/17 05:53 11/08/17 05:53 Intake & Output 11/05/17 11/06/17 11/07/17 11/08/17 23:59 23:59 23:59 23:59 Intake Total 42 294 Balance 42 294 Weight 120 lb 133 lb General: Awake, alert, oriented and calm Eyes: Pupils are equally reactive to light and accommodation external ocular muscles are intact anicteric sclera Neck: Supple negative JVD no bruit appreciated Heart: S1-S2 regular Grade 1-2/6 SM no clicks or gallops Lungs: Clear to A&P Bilaterally Abdomen: Soft benign normoactive bowel sounds no organomegaly Extremities: Negative edema and intact distal pulses no calf tenderness Lab Data: CBC, BMP 11/08/17 06:35 11/08/17 06:35 Hepatic Panel Total Bilirubin 0.8 mg/dL (0.2-1.0) D 11/07/17 11:00 AST 25 U/L (15-37) 11/07/17 11:00 ALT 20 U/L (12-78) 11/07/17 11:00 Alkaline Phosphatase 99 U/L (45-117) 11/07/17 11:00 Albumin 4.1 g/dl (3.4-5.0) 11/07/17 11:00 Troponin, BNP 11/07/17 11:00 Troponin I < 0.02 INR, PTT INR 1.21 (0.82-1.09) H 11/07/17 11:00 ASSESSMENT: ASSESSMENT: 1. Neurocardiogenic syncope +/- orthostatic syncope with recurrence 2. CAD post PCI/stent, angina pectoris, stable 3. Ischemic cardiomyopathy with history of failure post prophylactic ICD implant , euvolemic 4. HTN 5. DM 6. Hypercholesterolemia 7. COPD 8. OSAS noncompliant with CPAP 9. Depression/anxiety/eating disorder PLAN: 1. ICD interrogation, [employer]'s device, if no sustained arrhythmia noted, can be D/C home from the cadiovascular point of view 2. Continue Carvedilol hemodynamics permitting 3. Recommend resumption of Prinivil hemodynamics permitting 4. Continue ASA 5. Continue Lipitor 6. F/U repeat echocardiography results, performed earlier today Mia Bell M.D.
[2017-11-08] MEDS: DEXTROSE 5%-0.45% SALINE 1,000 ML IV SCH ×2 (15:10→23:11)
--- NOTE | 2017-11-08 15:12 | PN ---
Progress Note, Physician Chief Complaint: Pt lying in bed in no acute distress. asleep. lethargic. arousable. reports she hasnt ate. encouraged to eat. informed of d/c once plan cleared by cardiology. pt reports she wants to go home and not do inpt program for eating disorder. otherwise, denies any chest pain, sob, n/v/d or further complaints. - Current Medication List Current Medications: Active Medications Acetaminophen (Tylenol -) 325 mg PO Q8H PRN PRN Reason: PAIN LEVEL 6-10 Alprazolam (Xanax -) 1 mg PO BID [facility] Last Admin: 11/08/17 09:26 Dose: 1 mg Aspirin (Asa -) 81 mg PO DAILY [facility] Last Admin: 11/08/17 09:24 Dose: 81 mg Atorvastatin Calcium (Lipitor -) 40 mg PO HS [facility] Last Admin: 11/07/17 21:21 Dose: 40 mg Buspirone HCl (Buspar -) 15 mg PO BID [facility] Last Admin: 11/08/17 09:25 Dose: 15 mg Carvedilol (Coreg -) 6.25 mg PO BID [facility] Last Admin: 11/08/17 09:25 Dose: 6.25 mg Gabapentin (Neurontin -) 600 mg PO TID [facility] Last Admin: 11/08/17 13:28 Dose: 600 mg Dextrose/Sodium Chloride (D5-1/2ns -) 1,000 mls @ 42 mls/hr IV ASDIR [facility] Last Admin: 11/07/17 15:30 Dose: 42 mls/hr Oxycodone HCl (Roxicodone -) 5 mg PO Q8H PRN PRN Reason: 6-10 Last Admin: 11/07/17 15:51 Dose: 5 mg Tizanidine HCl (Tizanidine Hcl) 2 mg PO BID [facility] Last Admin: 11/08/17 09:25 Dose: 2 mg Topiramate (Topamax -) 50 mg PO BID [facility] Last Admin: 11/08/17 09:25 Dose: 50 mg Zolpidem Tartrate (Ambien -) 5 mg PO HS PRN PRN Reason: INSOMNIA Last Admin: 11/08/17 00:12 Dose: 5 mg - Objective Vital Signs: Vital Signs Temperature 98.2 F 11/08/17 13:55 Pulse Rate 64 11/08/17 13:55 Respiratory Rate 18 05/01/18 13:55 Blood Pressure 103/69 11/08/17 13:55 O2 Sat by Pulse Oximetry (%) 99 11/08/17 05:53 Constitutional: Yes: Well Nourished, No Distress Cardiovascular: Yes: WNL, Regular Rate and Rhythm. No: Gallop, Murmur Respiratory: Yes: WNL, Regular, CTA Bilaterally. No: Accessory Muscle Use, Tachypnea, Wheezes Gastrointestinal: Yes: WNL, Normal Bowel Sounds, Soft. No: Distention, Tenderness Genitourinary: Yes: WNL Edema: No Neurological: Yes: WNL, Oriented, Lethargy Psychiatric: Yes: WNL, Alert, Oriented Labs: CBC, BMP 11/08/17 06:35 11/08/17 06:35 INR, PTT INR 1.21 (0.82-1.09) H 11/07/17 11:00 Problem List - Problems (1) Syncope and collapse Code(s): R55 - SYNCOPE AND COLLAPSE (2) Anorexia nervosa Code(s): F50.00 - ANOREXIA NERVOSA, UNSPECIFIED (3) CHF (congestive heart failure) Code(s): I50.9 - HEART FAILURE, UNSPECIFIED Qualifiers: Heart failure type: systolic Heart failure chronicity: chronic Qualified Code(s): I50.22 - Chronic systolic (congestive) heart failure (4) Hyperlipidemia Code(s): E78.5 - HYPERLIPIDEMIA, UNSPECIFIED Qualifiers: Hyperlipidemia type: pure hypercholesterolemia Qualified Code(s): E78.00 - Pure hypercholesterolemia, unspecified; E78.0 - Pure hypercholesterolemia (5) Hypertension Code(s): I10 - ESSENTIAL (PRIMARY) HYPERTENSION Qualifiers: Hypertension type: essential hypertension Qualified Code(s): I10 - Essential (primary) hypertension (7) Chronic abdominal pain Code(s): R10.9 - UNSPECIFIED ABDOMINAL PAIN; G89.29 - OTHER CHRONIC PAIN (8) Chronic diarrhea Code(s): K52.9 - NONINFECTIVE GASTROENTERITIS AND COLITIS, UNSPECIFIED (9) Anxiety Code(s): F41.9 - ANXIETY DISORDER, UNSPECIFIED Assessment/Plan (1) Syncope and collapse Assessment/Plan: 8-9 syncopal episodes over last month intentional reduced po intake secondary to anorexia nervosa head CT, chest xray, cervical spine imaging without acute findings labs unremarkable orthostatics noted cardiac echo/carotid us without acute findings IVF fall precautions regular diet cardiology consult appreciated Code(s): R55 - SYNCOPE AND COLLAPSE (2) Anorexia nervosa Assessment/Plan: chronic reduced po x 6 months now presents w/ frequent falls/syncope does not see outpt psychiatrist pt refuses inpt program for eating disorder outpt psych f/u for CBT per psych Code(s): F50.00 - ANOREXIA NERVOSA, UNSPECIFIED (3) CHF (congestive heart failure) Assessment/Plan: chronic followed by cardiology outpt echo reviewed, no acute changes ICD interrogation pending cardiology consult appreciated Code(s): I50.9 - HEART FAILURE, UNSPECIFIED Qualifiers: Heart failure type: systolic Heart failure chronicity: chronic Qualified Code(s): I50.22 - Chronic systolic (congestive) heart failure (4) Hyperlipidemia Assessment/Plan: chronic continue statin Code(s): E78.5 - HYPERLIPIDEMIA, UNSPECIFIED Qualifiers: Hyperlipidemia type: pure hypercholesterolemia Qualified Code(s): E78.00 - Pure hypercholesterolemia, unspecified; E78.0 - Pure hypercholesterolemia (5) Hypertension Assessment/Plan: well controlled continue coreg prinivil once BP stable orthostatics cardiology following Code(s): I10 - ESSENTIAL (PRIMARY) HYPERTENSION Qualifiers: Hypertension type: essential hypertension Qualified Code(s): I10 - Essential (primary) hypertension (6) coronary artery disease Assessment/Plan: history of [place], s/p PCI continue asa, statin (7) Chronic abdominal pain Assessment/Plan: no acute changes Code(s): R10.9 - UNSPECIFIED ABDOMINAL PAIN; G89.29 - OTHER CHRONIC PAIN (8) Chronic diarrhea Assessment/Plan: secondary to chronic laxative use Code(s): K52.9 - NONINFECTIVE GASTROENTERITIS AND COLITIS, UNSPECIFIED (9) Anxiety Assessment/Plan: chronic continue current management Code(s): F41.9 - ANXIETY DISORDER, UNSPECIFIED Dispo: awaiting ICD interrogation, d/c once cardiac work up neg . pt would not like inpt eating disorder program. Plan to d/c pt with outpt psych referral
[2017-11-08] MEDS: oxyCODONE HCL 5 MG TABLET PO PRN (17:30)
[2017-11-08] MEDS: ATORVASTATIN CA 40 MG TABLET (FP) PO SCH (21:13)
[2017-11-09] MEDS: oxyCODONE HCL 5 MG TABLET PO PRN ×2 (00:37→08:56)
[2017-11-09] MEDS: GABAPENTIN 300 MG CAPSULE (FP) PO SCH (05:26)
[2017-11-09 05:50] VITALS: PULSE 91
[2017-11-09] MEDS: ALPRAZolam 2 MG TABLET PO SCH (08:59)
[2017-11-09] MEDS: busPIRone HCL 5 MG TABLET PO SCH (08:59)
[2017-11-09] MEDS: ASPIRIN 81 MG CHEWABLE TABLETS PO SCH (09:00)
[2017-11-09] MEDS: CARVEDILOL 6.25 MG TABLET (FP) PO SCH ×2 (09:01→09:07)
[2017-11-09] MEDS: TOPIRAMATE 25 MG TABLET (FP) PO SCH (09:07)
[2017-11-09] MEDS: TIZANIDINE HCL 2 MG TABLET PO SCH (09:07)
--- NOTE | 2017-11-09 09:18 | PN ---
Progress Note, Physician History of Present Illness: Postural dizziness improving, denies true syncope, no events on telemetry. - Current Medication List Current Medications: Active Medications Acetaminophen (Tylenol -) 325 mg PO Q8H PRN PRN Reason: PAIN LEVEL 6-10 Last Admin: 11/08/17 17:31 Dose: 325 mg Alprazolam (Xanax -) 1 mg PO BID [facility] Last Admin: 11/09/17 08:59 Dose: 1 mg Aspirin (Asa -) 81 mg PO DAILY [facility] Last Admin: 11/09/17 09:00 Dose: 81 mg Atorvastatin Calcium (Lipitor -) 40 mg PO HS [facility] Last Admin: 11/08/17 21:13 Dose: 40 mg Buspirone HCl (Buspar -) 15 mg PO BID [facility] Last Admin: 11/09/17 08:59 Dose: 15 mg Carvedilol (Coreg -) 6.25 mg PO BID [facility] Last Admin: 11/09/17 09:07 Dose: 3.125 mg Gabapentin (Neurontin -) 600 mg PO TID [facility] Last Admin: 11/09/17 05:26 Dose: 600 mg Dextrose/Sodium Chloride (D5-1/2ns -) 1,000 mls @ 42 mls/hr IV ASDIR [facility] Last Admin: 11/08/17 23:11 Dose: 42 mls/hr Oxycodone HCl (Roxicodone -) 5 mg PO Q8H PRN PRN Reason: 6-10 Last Admin: 11/09/17 08:56 Dose: 5 mg Tizanidine HCl (Tizanidine Hcl) 2 mg PO BID [facility] Last Admin: 11/09/17 09:07 Dose: 2 mg Topiramate (Topamax -) 50 mg PO BID [facility] Last Admin: 11/09/17 09:07 Dose: 50 mg Zolpidem Tartrate (Ambien -) 5 mg PO HS PRN PRN Reason: INSOMNIA Last Admin: 11/08/17 00:12 Dose: 5 mg - Objective Vital Signs: Vital Signs Temperature 99.7 F H 11/09/17 05:49 Pulse Rate 91 H 11/09/17 05:49 Respiratory Rate 20 11/09/17 05:49 Blood Pressure 84/58 11/09/17 05:49 O2 Sat by Pulse Oximetry (%) 99 11/08/17 19:54 Constitutional: Yes: No Distress, Calm, Thin Neck: Yes: Supple Cardiovascular: Yes: Regular Rate and Rhythm Respiratory: Yes: Regular, CTA Bilaterally Gastrointestinal: Yes: Normal Bowel Sounds, Soft Edema: No Labs: CBC, BMP 11/08/17 06:35 11/08/17 06:35 INR, PTT INR 1.21 (0.82-1.09) H 11/07/17 11:00 Problem List - Problems (1) Anorexia nervosa Code(s): F50.00 - ANOREXIA NERVOSA, UNSPECIFIED (2) Anxiety Code(s): F41.9 - ANXIETY DISORDER, UNSPECIFIED (3) CAD (coronary artery disease) Code(s): I25.10 - ATHSCL HEART DISEASE OF [place] CORONARY ARTERY W/O ANG PCTRS Qualifiers: Coronary Disease-Associated Artery/Lesion type: [place] artery [place] vs. transplanted heart: [place] heart Associated angina: without angina Qualified Code(s): I25.10 - Atherosclerotic heart disease of [place] coronary artery without angina pectoris (4) Diabetes mellitus Code(s): E11.9 - TYPE 2 DIABETES MELLITUS WITHOUT COMPLICATIONS Qualifiers: Diabetes mellitus type: type 2 Diabetes mellitus ocean transportation intermediary insulin use: without long-term use Diabetes mellitus complication status: with hyperglycemia Qualified Code(s): E11.65 - Type 2 diabetes mellitus with hyperglycemia (5) Hypotension due to drugs Code(s): I95.2 - HYPOTENSION DUE TO DRUGS (6) Neurocardiogenic syncope Code(s): R55 - SYNCOPE AND COLLAPSE (7) Orthostatic hypotension Code(s): I95.1 - ORTHOSTATIC HYPOTENSION (8) Chronic left ventricular systolic dysfunction Code(s): I51.9 - HEART DISEASE, UNSPECIFIED (9) Hyperlipidemia Code(s): E78.5 - HYPERLIPIDEMIA, UNSPECIFIED Qualifiers: Hyperlipidemia type: pure hypercholesterolemia Qualified Code(s): E78.00 - Pure hypercholesterolemia, unspecified; E78.0 - Pure hypercholesterolemia (10) Hypertension Code(s): I10 - ESSENTIAL (PRIMARY) HYPERTENSION Qualifiers: Hypertension type: essential hypertension Qualified Code(s): I10 - Essential (primary) hypertension (11) Sleep apnea Code(s): G47.30 - SLEEP APNEA, UNSPECIFIED Qualifiers: Sleep apnea type: obstructive Qualified Code(s): G47.33 - Obstructive sleep apnea (adult) (pediatric) (12) Status post insertion of drug-eluting stent into left anterior descending artery for coronary artery disease Code(s): Z98.61 - CORONARY ANGIOPLASTY STATUS (13) Status post myocardial infarction of anterior wall Code(s): I25.2 - OLD MYOCARDIAL INFARCTION (14) Single implantable cardioverter-defibrillator (ICD) in situ Code(s): Z95.810 - PRESENCE OF AUTOMATIC (IMPLANTABLE) CARDIAC DEFIBRILLATOR Assessment/Plan 11/08/17 Echo: Large region of apical AK, moderate decreased LV systolic fxn, normal RV fxn, LVEF 35% Echocardiography dated 11/23 revealed LV mildly dilated with wall motion abnormality, EF mildly reduced, moderate MR and mild TR MPI study dated 11/22 revealed mildly reduced EF with apical fixed defect infarct LHC& coronary angiography dated 11/23 revealed non-obstructive CAD, patent LAD stent, moderate decreased LV systolic function with LVEF 45% with severe anterior, hannah-lateral hypokinesia 1. Neurocardiogenic syncope +/- orthostatic syncope with recurrence 2. CAD post PCI/stent, angina pectoris, stable 3. Ischemic cardiomyopathy with history of failure post prophylactic ICD implant , euvolemic 4. HTN 5. DM 6. Hypercholesterolemia 7. COPD 8. OSAS noncompliant with CPAP 9. Depression/anxiety/eating disorder PLAN: 1. ICD interrogation without events, [employer]'s device, can be D/C home from cadiovascular point of view 2. Resume Carvedilol 3.125 bid (lower dose) hemodynamics permitting 3. Recommend resumption of Prinivil hemodynamics permitting 4. Continue ASA 81 qd 5. Continue Lipitor 40 qhs 6. F/u in office [phone]
[2017-11-09] MEDS ORDERED: CARVEDILOL 3.125 MG TABLET (FP) PO SCH (09:23)
--- NOTE | 2017-11-09 10:23 | DS ---
Physical Examination Vital Signs: Vital Signs Temperature 99.7 F H 11/09/17 05:49 Pulse Rate 91 H 11/09/17 05:49 Respiratory Rate 20 11/09/17 05:49 Blood Pressure 84/58 11/09/17 05:49 O2 Sat by Pulse Oximetry (%) 99 11/08/17 19:54 Constitutional: Yes: Well Nourished, No Distress Cardiovascular: Yes: WNL, Regular Rate and Rhythm. No: Gallop, Murmur Respiratory: Yes: WNL, Regular, CTA Bilaterally. No: Accessory Muscle Use, SOB , Tachypnea Gastrointestinal: Yes: WNL, Normal Bowel Sounds, Soft. No: Distention, Tenderness Renal/: Yes: WNL Edema: No Neurological: Yes: WNL, Alert, Oriented Psychiatric: Yes: WNL, Alert, Oriented Labs: CBC, BMP 11/08/17 06:35 11/08/17 06:35 Discharge Summary Reason For Visit: SYNCOPE AND COLLAPSE Current Active Problems Anorexia nervosa (Acute) Chronic abdominal pain (Acute) Chronic diarrhea (Acute) Syncope and collapse (Acute) Hospital Course: is a 52 year old female h significant for Anorexia Nervosa who was admitted for evaluation of syncope. Pt has been eating and drinking minimal at home. All imaging negative for any acute findings. Cardiology work up negative. Discussed with pt the importance of inpatient eating disorder programs, pt refuses at the moment. Psych consult appreciated, recommended outpt psych for CBT. SW met with pt and provided resources for therapy and psychiatrist. Otherwise, pt is medically cleared for discharge. Pt advised to f/u as directed. Condition: Stable - Instructions Diet, Activity, Other Instructions: eat small frequent meals hydration with liquids at least 2l/day Carvedilol has been reduced, prescription sent to pharmacy psych/therapist referral have been given to you by social work, please call and make appointment f/u with pcp in 1 week Referrals: Sandra Barry MD [Primary Care Provider] - 1 Week Mia Bell MD [Staff Physician] - 2 Weeks Disposition: HOME - Home Medications Comprehensive Discharge Medication List: Ambulatory Orders Alprazolam [Xanax] 1 mg PO BID 04/15/16 Aspirin [ASA -] 81 mg PO DAILY 04/15/16 Atorvastatin Ca [Lipitor] 40 mg PO HS 04/15/16 Gabapentin 600 mg PO TID 04/15/16 Topiramate 50 mg PO BID 04/15/16 Oxycodone HCl/Acetaminophen [Percocet 5-325 mg Tablet] 1 tab PO Q6H 05/21/16 Zolpidem Tartrate [Ambien] 10 mg PO HS 05/21/16 Buspirone HCl 15 mg PO BID 11/07/17 Tizanidine HCl 2 mg PO BID 11/07/17 Tizanidine HCl [Zanaflex (Nf) -] 2 mg PO BID 11/07/17 Carvedilol [Coreg -] 3.125 mg PO BID #60 tablet 11/09/17
[2017-11-09 13:08] VITALS: BP 110/62; TEMP 99
== END 2017-11-09 15:08 | disposition home or self-care (01) | DRG 883 ==
LOC: JER 09:47 → JERBED 14:08 → J4W 20:22
PROVIDERS: ADMIT Internal Medicine; ATTEND Internal Medicine
DX: F50.00 Anorexia nervosa, unspecified (principal); I50.22 Chronic systolic (congestive) heart failure; I25.110 Atherosclerotic heart disease of native coronary artery with unstable angina pectoris; I11.0 Hypertensive heart disease with heart failure; J44.9 Chronic obstructive pulmonary disease, unspecified; E78.5 Hyperlipidemia, unspecified; G89.29 Other chronic pain; R63.4 Abnormal weight loss; Z68.26 Body mass index [BMI] 26.0-26.9, adult; R55 Syncope and collapse; F41.9 Anxiety disorder, unspecified; N39.3 Stress incontinence (female) (male); G47.30 Sleep apnea, unspecified; F41.8 Other specified anxiety disorders; I25.2 Old myocardial infarction; I25.5 Ischemic cardiomyopathy; K52.9 Noninfective gastroenteritis and colitis, unspecified; E11.65 Type 2 diabetes mellitus with hyperglycemia; G47.33 Obstructive sleep apnea (adult) (pediatric); K64.8 Other hemorrhoids; K59.09 Other constipation; M79.7 Fibromyalgia; M54.5 Low back pain; Z87.442 Personal history of urinary calculi; Z95.0 Presence of cardiac pacemaker; Z95.5 Presence of coronary angioplasty implant and graft; Z87.891 Personal history of nicotine dependence
CPT/HCPCS: 36415; 70450-TC; 71045-TC-FY; 72125-TC; 80048; 80053; 80307; 81003; 83690; 83735; 84100; 84443; 84484; 85025; 85610; 85730; 87086; 93005; 93010; 93306-TC; 93880-TC; 99285-25; G0480; J0131; J7030

== ENCOUNTER 2018-05-05 22:29 | Emergency (ER) | payer OTHER ==
[2018-05-05 22:33] VITALS: BP 131/74; PULSE 86; TEMP 98.6; BMI 28.9
[2018-05-05] MEDS ORDERED: KETOROLAC TROMETHAMINE 30 MG/1 ML VIAL ONE (22:46)
[2018-05-05] MEDS ORDERED: KETOROLAC TROMETHAMINE 60 MG/2 ML VIAL ONE (22:55)
--- NOTE | 2018-05-05 23:01 | PDOC ---
History of Present Illness - General Chief Complaint: Pain Stated Complaint: PAIN, ACUTE Time Seen by Provider: 05/05/18 22:38 History Source: Patient Exam Limitations: No Limitations - History of Present Illness Travel History: No Initial Comments: 05/05/18 23:55 Best Contact: PCP:Dr. Smith Pmhx: 2017: Right renal colic, 2011 CHF, 2010 MD, 2011 pacemaker [employer] 03/03/2012: Serial number [id number], Model [id number] 03/03/2012: Serial number [id number], model [id number] Pshx: 2010 cardiac stent/ / right salpingectomy Allergies: nkda FH:0 Social Hx: Cigarettes/ 0 Alcohol/ SOCIAL Drugs/0 LMP:N/A 53-year-old female presents to the emergency department complaining of 7/10 sharp intermittent right-sided flank pain radiating to the right groin without fever, chills, diarrhea, constipation, headache, dizziness, lightheadedness, neck pain/stiffness, back pains, chest pain, shortness of breath, abdominal pains, urinary symptoms: Frequency/urgency/hesitancy, hematuria, extremity numbness or tingling sensation. Approximately 30 minutes after subjective interview, physical exam, patient states she's beginning to have an anxiety attack. Patient denies any shortness of breath or chest pain but states she feels an anxiety attack, non-. Past History - Past Medical History Allergies/Adverse Reactions: Allergies Allergy/AdvReac Type Severity Reaction Status Date / Time No Known Allergies Allergy Verified 11/07/17 09:49 Home Medications: Ambulatory Orders Alprazolam [Xanax] 1 mg PO BID 04/15/16 Aspirin [ASA -] 81 mg PO DAILY 04/15/16 Atorvastatin Ca [Lipitor] 40 mg PO HS 04/15/16 Gabapentin 600 mg PO TID 04/15/16 Topiramate 50 mg PO BID 04/15/16 Oxycodone HCl/Acetaminophen [Percocet 5-325 mg Tablet] 1 tab PO Q6H 05/21/16 Zolpidem Tartrate [Ambien] 10 mg PO HS 05/21/16 Buspirone HCl 15 mg PO BID 11/07/17 Tizanidine HCl 2 mg PO BID 11/07/17 Tizanidine HCl [Zanaflex (Nf) -] 2 mg PO BID 11/07/17 Carvedilol [Coreg -] 3.125 mg PO BID #60 tablet 11/09/17 Anemia: No Asthma: No Cancer: No Cardiac Disorders: Yes (cardiac stent 2010/pacemaker02/2012, MD) CVA: No COPD: Yes CHF: Yes DVT: No Dementia: No Diabetes: Yes GI Disorders: Yes (POOR APPETITE) Disorders: Yes (kidney stents, kidney stones, stress incontinence, KIDNEY FAILURE) HTN: Yes Hypercholesterolemia: Yes Liver Disease: No Psychiatric Problems: Yes (anxiety, anorexia, DEPRESSION.) Seizures: No Thyroid Disease: No - Surgical History Abdominal Surgery: Yes (ECTOPIC) Appendectomy: No Cardiac Surgery: Yes (cardiac cath, stent, ppm/aicd) Cholecystectomy: No Lung Surgery: No Neurologic Surgery: No Orthopedic Surgery: No - Family Disease History Family Disease History: Heart Disease: Father - Immunization History Td Vaccination: Yes TDAP Vaccination: Yes Immunization Up to Date: No (no flu vaccine) - Suicide/Smoking/Psychosocial Hx Smoking Status: No Smoking History: Never smoked Years of Tobacco Use: 10 Have you smoked in the past 12 months: Yes Number of Cigarettes Smoked Daily: 7 If you are a former smoker, when did you quit?: 2015 Cigars Per Day: 0 Information on smoking cessation initiated: No 'Breaking Loose' booklet given: 12/15/14 Hx Alcohol Use: No Drug/Substance Use Hx: No Substance Use Type: None Hx Substance Use Treatment: No Review of Systems - Review of Systems Able to Perform ROS?: Yes Comments:: 05/05/18 23:54 CONSTITUTIONAL: Absent: fever, chills, diaphoresis, generalized weakness, malaise, loss of appetite HEENT: Absent: rhinorrhea, nasal congestion, throat pain, throat swelling, difficulty swallowing, mouth swelling, ear pain, eye pain, visual Changes CARDIOVASCULAR: Absent: chest pain, loss of consciousness, palpitations, irregular heart rate, peripheral edema RESPIRATORY: Absent: cough, shortness of breath, dyspnea with exertion, orthopnea, wheezing, stridor, hemoptysis GASTROINTESTINAL: Absent: abdominal pain, abdominal distension, nausea, vomiting, diarrhea, constipation, melena, hematochezia GENITOURINARY: +Right flank pain Absent: dysuria, frequency, urgency, hesitancy, hematuria,genital pain MUSCULOSKELETAL: Absent: myalgia, arthralgia, joint swelling SKIN: Absent: rash, itching, pallor HEMATOLOGIC/IMMUNOLOGIC: Absent: easy bleeding, easy bruising, lymphadenopathy, frequent infections ENDOCRINE: Absent: unexplained weight gain, unexplained weight loss, heat intolerance, cold intolerance NEUROLOGIC: Absent: headache, focal weakness or paresthesias, dizziness, unsteady gait, seizure, mental status changes, bladder or bowel incontinence PSYCHIATRIC: +anxiety Absent: depression, suicidal or homicidal ideation, hallucinations. Is the patient limited Wolof proficient: No *Physical Exam - Vital Signs Last Vital Signs Temp Pulse Resp BP Pulse Ox 98.6 F 86 18 131/74 98 05/05/18 22:30 05/05/18 22:30 05/05/18 22:30 05/05/18 22:30 05/05/18 22:30 - Physical Exam Comments: 05/05/18 23:55 GENERAL: Well developed, well nourished. Awake and alert. No acute distress. HEENT: Normocephalic, atraumatic. PERRLA, EOMI. No conjunctival pallor. Sclera are non- icteric. Moist mucous membranes. Oropharynx is clear. NECK: Supple. Full ROM. No JVD. Carotid pulses 2+ and symmetric, without bruits. No thyromegaly. No lymphadenopathy. CARDIOVASCULAR: Regular rate and rhythm. No murmurs, rubs, or gallops. Distal pulses are 2+ and symmetric. PULMONARY: No evidence of respiratory distress. Lungs clear to auscultation bilaterally. No wheezing, rales or rhonchi. ABDOMINAL: +right CVAT Soft. Non-tender. Non-distended. No rebound or guarding. No organomegaly. Normoactive bowel sounds. MUSCULOSKELETAL Normal range of motion at all joints. No bony deformities or tenderness. EXTREMITIES: No cyanosis. No clubbing. No edema. No calf tenderness. SKIN: Warm and dry. Normal capillary refill. No rashes. No jaundice. Heart Score/ECG Review - History History: Slightly suspicious - Electrocardiogram EKG: Normal - Age Age: >/= 65 - Risk Factors Risk Factors Heart Score: Yes Hx Diabetes, Yes Hx Obesity Based on the list above the patient has:: 1-2 risk factors - Troponin Troponin: </= normal limit - Score Heart Score - Total: 3 ED Treatment Course - LABORATORY CBC & Chemistry Diagram: 05/05/18 22:39 05/05/18 22:39 Progress Note - Progress Note Progress Note: 0232hrs: Patient Complaining of severe right-sided flank pain and insists on narcotics. Patient states the morphine 2 mg is wearing off and she will need more. I asked the patient she's taken any narcotics prior to today, patient states she has taken Percocet but hasn't had a prescription in many months. Patient was I stopped. 04/21/2018 patient received 60 tablets of Percocet 5/[address] Phelps Patient has been getting Percocet 5/325 every month for 60 tablets. Patient was confronted with this information, patient wishes to be discharged. *DC/Admit/Observation/Transfer Diagnosis at time of Disposition: Anxiety Chronic back pain Qualifiers: Back pain location: low back pain Back pain laterality: right Sciatica presence : without sciatica Qualified Code(s): M54.5 - Low back pain - Discharge Dispostion Disposition: HOME Condition at time of disposition: Stable - Referrals Referrals: Sandra Barry MD [Primary Care Provider] - Miguel Story MD [Staff Physician] - - Patient Instructions Printed Discharge Instructions: DI for Low Back Pain Additional Instructions: Follow-up with your physician or the orthopedic surgeon listed on your discharge. You were recently given 60 tablets of Percocet 5/[address] Phelps on 04/21/2018 Return back to the emergency department for severe/persistent or worsening symptoms - Post Discharge Activity
[2018-05-05 23:26] LABS: BASO % 0.4 % (0-2.0); EOS % 1.8 % (0-4.5); HEMATOCRIT 38.4 % (32.4-45.2); HEMOGLOBIN 13.1 GM/dL (10.7-15.3); LYMPH % 19.9 % (8-40); MCH 30.3 pg (25.7-33.7); MCHC 34.1 g/dl (32.0-36.0); MEAN CELL VOLUME 88.9 fl (80-96); MEAN PLT VOLUME 7.6 fl (7.5-11.1); MONO % 4.4 % (3.8-10.2); NEUT % 73.5 % (42.8-82.8); PLATELET COUNT 237 K/MM3 (134-434); RBC 4.31 M/mm3 (3.60-5.2); RDW 13.2 % (11.6-15.6); WHITE BLOOD COUNT 10.4 K/mm3 (4.0-10.0)
[2018-05-05 23:54] LABS: ALBUMIN 3.8 g/dl (3.4-5.0); ALK PHOS 125 U/L (45-117); ANION GAP 11 MMOL/L (8-16); BILIRUBIN,TOTAL 0.3 mg/dL (0.2-1); BLOOD UREA NITROGEN 9 mg/dL (7-18); CALCIUM 8.6 mg/dL (8.5-10.1); CHLORIDE 107 mmol/L (98-107); CO2 22 mmol/L (21-32); CREATININE 0.9 mg/dL (0.55-1.3); GLUCOSE,RANDOM 237 mg/dL (74-106); POTASSIUM 3.8 mmol/L (3.5-5.1); SGOT/AST 10 U/L (15-37); SGPT/ALT 18 U/L (13-61); SODIUM 140 mmol/L (136-145); TOT PROT 7.4 g/dl (6.4-8.2)
[2018-05-06] MEDS ORDERED: morphine CARPU-JECT 2 MG/1 ML DISP.SYRIN IVPUSH ONE (00:25)
[2018-05-06] MEDS ORDERED: MORPHINE SULFATE 2 MG/ML VIAL ONE (00:26)
--- NOTE | 2018-05-06 14:56 | EKG ---
Test Reason : Blood Pressure : / mmHG Vent. Rate : 068 BPM Atrial Rate : 068 BPM P-R Int : 196 ms QRS Dur : 078 ms QT Int : 416 ms P-R-T Axes : 052 018 084 degrees QTc Int : 442 ms NORMAL SINUS RHYTHM ANTEROSEPTAL INFARCT , AGE UNDETERMINED ABNORMAL ECG WHEN COMPARED WITH ECG OF 07-NOV-2017 11:44, SINUS RHYTHM HAS REPLACED ELECTRONIC VENTRICULAR PACEMAKER Confirmed by MD Dave, Arnold ([id number]) on 05/06/2018 2:56:24 PM Referred By: Confirmed By:Arnold Acosta MD
== END 2018-05-06 02:35 | disposition home or self-care (01) ==
LOC: JER 22:29
PROC: 3E033NZ Introduction of Analgesics, Hypnotics, Sedatives into Peripheral Vein, Percutaneous Approach (ICD-10-PCS; principal; 2018-05-05)
DX: F41.9 Anxiety disorder, unspecified (principal); R10.31 Right lower quadrant pain; I25.10 Atherosclerotic heart disease of native coronary artery without angina pectoris; I11.0 Hypertensive heart disease with heart failure; Z95.5 Presence of coronary angioplasty implant and graft; I25.2 Old myocardial infarction; Z95.810 Presence of automatic (implantable) cardiac defibrillator; E11.9 Type 2 diabetes mellitus without complications; Z87.448 Personal history of other diseases of urinary system
CPT/HCPCS: 36415; 74176; 80053; 82550; 84484; 85025; 93005; 93010; 96374; 99284-25

== ENCOUNTER 2018-12-01 19:56 | Emergency (ER) | payer OTHER ==
[2018-12-01] MEDS ORDERED: ASPIRIN 81 MG CHEWABLE TABLETS PO ONE (20:10)
--- NOTE | 2018-12-01 20:10 | PDOC ---
Rapid Medical Evaluation Time Seen by Provider: 12/01/18 20:08 Medical Evaluation: Allergies Allergy/AdvReac Type Severity Reaction Status Date / Time No Known Allergies Allergy Verified 05/06/18 04:21 12/01/18 20:08 I have performed a brief in-person evaluation of this patient. The patient presents with a chief complaint of: chest pain and SOB since this morning. "my pacemaker hurts, i also have severe pain in my lower stomach every time i use the bathroom and there's blood." pt also c/o of ROBERTS. PCP is Dr. Barry Pertinent physical exam findings: non toxic I have ordered the following: labs, guaiac, ekg, cxr The patient will proceed to the ED for further evaluation.
[2018-12-01 20:13] VITALS: BP 106/73; TEMP 98.1; BMI 25.4
[2018-12-01] MEDS ORDERED: ASPIRIN 81 MG CHEWABLE TABLETS ONE (20:22)
--- NOTE | 2018-12-01 20:36 | PDOC ---
History of Present Illness <Eliza Chou - Last Filed: 12/01/18 23:25> - General History Source: Patient Exam Limitations: No Limitations - History of Present Illness Initial Comments: 12/01/18 20:34 Patient is a 53 year old female with history of coronary artery disease, myocardial infarction s/p PCI with drug eluting stent in LAD (2010), ischemic cardiomyopathy s/p ICD (2011), diverticulosis (colonoscopy 2017), hypertension, hyperlipidemia, anxiety, depression, anorexia nervosa, presents with complaint of chest pain. Patient states that chest pain began this morning approx 5Am and woke her up from sleep. Pain is described as sharp, left sided, at area of her pacemaker, and radiates to her left shoulder with left arm numbness. Patient admits similar chest pain in the past. Patient also complains of abdominal pain that began today approx. 2PM. She describes a "popping" sensation within her left lower abdominal quadrant with associated achy, cramping pain that radiates diffusely over her entire abdomen and back. She admits bright red blood per rectum ongoing for the past three weeks. She admits one loosely formed bowel movement today, with red blood within the entire toilet bowl. Today, abdominal pain was exacerbated by bowel movement. Patient denies eating anything today, she only drank sips of Sprite Zero; she had two Vanilla wafers yesterday. She admits nausea, however denies vomiting. Patient admits headache, with photophobia. She denies changes in her vision, changes with her hearing, or tinnitus. No endorses lightheadedness that is chronic. She denies trauma to head, or any part of her body, loss of consciousness. Cardiac ECHO: 11/2017: EF 35% with moderately reduced LV systolic function, impaired LV relaxation. Apical akinesis noted. PMH:coronary artery disease, myocardial infarction, ischemic cardiomyopathy, diverticulosis, hypertension, hyperlipidemia, anxiety, depression, anorexia nervosa, obstructive sleep apnea, diabetes mellitus PSH: Drug eluting stent in LAD (2010; [facility]), ICD placement (2011, [facility] 1999 Family history Mother:diabetes mellitus, hypertension, hyperlipidemia, Afib Father: from [place] at 67 years old. Breast cancer history in aunt, and grandmother. Allergies: NKDA Social: Lives at home with mother. Former smoker (smoked approx. 7 cigarettes per day for 30 years). Quit 2014. Denies alcohol consumption. Admits Marijuana use once per week, denies other drug use. <Waldo Ferreira - Last Filed: 12/01/18 23:32> - General Chief Complaint: Chest Pain Stated Complaint: CHEST PAIN Time Seen by Provider: 12/01/18 20:08 Past History <Eliza Chou - Last Filed: 12/01/18 23:25> - Past Medical History Anemia: No Asthma: No Cancer: No Cardiac Disorders: Yes (cardiac stent 2010/pacemaker02/2012, [place]) CVA: No COPD: Yes CHF: Yes DVT: No Dementia: No Diabetes: Yes GI Disorders: Yes (POOR APPETITE) Disorders: Yes (kidney stents, kidney stones, stress incontinence, KIDNEY FAILURE) HTN: Yes Hypercholesterolemia: Yes Liver Disease: No Psychiatric Problems: Yes (anxiety, anorexia, DEPRESSION.) Seizures: No Thyroid Disease: No - Surgical History Abdominal Surgery: Yes (ECTOPIC) Appendectomy: No Cardiac Surgery: Yes (cardiac cath, stent, ppm/aicd) Cholecystectomy: No Lung Surgery: No Neurologic Surgery: No Orthopedic Surgery: No - Family Disease History Family Disease History: Heart Disease: Father - Immunization History Td Vaccination: Yes TDAP Vaccination: Yes Immunization Up to Date: No (no flu vaccine) - Suicide/Smoking/Psychosocial Hx Smoking Status: No Smoking History: Former smoker Years of Tobacco Use: 10 Have you smoked in the past 12 months: No Number of Cigarettes Smoked Daily: 7 If you are a former smoker, when did you quit?: 2014 Cigars Per Day: 0 Information on smoking cessation initiated: No 'Breaking Loose' booklet given: 12/15/14 Hx Alcohol Use: No Drug/Substance Use Hx: No Substance Use Type: None Hx Substance Use Treatment: No <Waldo Ferreira - Last Filed: 12/01/18 23:32> - Past Medical History Allergies/Adverse Reactions: Allergies Allergy/AdvReac Type Severity Reaction Status Date / Time No Known Allergies Allergy Verified 12/01/18 20:13 Home Medications: Ambulatory Orders Alprazolam [Xanax] 1 mg PO BID 04/15/16 Aspirin [ASA -] 81 mg PO DAILY 04/15/16 Atorvastatin Ca [Lipitor] 40 mg PO HS 04/15/16 Gabapentin 600 mg PO TID 04/15/16 Topiramate 50 mg PO BID 04/15/16 Oxycodone HCl/Acetaminophen [Percocet 5-325 mg Tablet] 1 tab PO Q6H 05/21/16 Zolpidem Tartrate [Ambien] 10 mg PO HS 05/21/16 Buspirone HCl 15 mg PO BID 11/07/17 Tizanidine HCl 2 mg PO BID 11/07/17 Tizanidine HCl [Zanaflex (Nf) -] 2 mg PO BID 11/07/17 Carvedilol [Coreg -] 3.125 mg PO BID #60 tablet 11/09/17 Alcohol Antiseptic Pads [Alcohol Prep Pads] 1 each TP DAILY #1 box 12/01/18 Blood Sugar Diagnostic [Test Strips] 1 each MC ASDIR 30 Days #30 strip 12/01/18 Duloxetine HCl [Cymbalta] 30 mg PO BID 12/01/18 Lancets 1 each MC DAILY 30 Days #1 box 12/01/18 Metformin HCl [Glucophage] 500 mg PO DAILY #30 tablet 12/01/18 Miscellaneous Medical Supply [Glucometer Device] 1 each .ROUTE ASDIR #1 kit Review of Systems - Review of Systems Able to Perform ROS?: Yes (As per HPI) <Waldo Ferreira - Last Filed: 12/01/18 23:32> *Physical Exam - Vital Signs Last Vital Signs Temp Pulse Resp BP Pulse Ox 98.1 F 65 18 106/73 97 12/01/18 20:09 12/01/18 22:18 12/01/18 22:18 12/01/18 20:09 12/01/18 22:18 <Eliza Chou - Last Filed: 12/01/18 23:25> - Vital Signs Last Vital Signs Temp Pulse Resp BP Pulse Ox 98.1 F 73 19 106/73 100 12/01/18 20:09 12/01/18 20:09 12/01/18 20:09 12/01/18 20:09 12/01/18 20:09 - Physical Exam General Appearance: Yes: Nourished, Mild Distress HEENT: positive: EOMI, MOHAMUD. negative: Scleral Icterus (R), Scleral Icterus (L) , Pharyngeal Erythema, Tonsillar Exudate Neck: positive: Trachea midline, Supple. negative: Lymphadenopathy (R), Lymphadenopathy (L), Rigidity Respiratory/Chest: positive: Lungs Clear, Normal Breath Sounds. negative: Respiratory Distress, Accessory Muscle Use, Labored Respiration, Rapid RR, Crackles, Rales, Rhonchi, Stridor, Wheezing Cardiovascular: positive: Regular Rhythm, Regular Rate, S1, S2. negative: Murmur Vascular Pulses: Dorsalis-Pedis (R): 2+, Doralis-Pedis (L): 2+ Gastrointestinal/Abdominal: positive: Normal Bowel Sounds, Tender (diffusely tender to light palpation X4 quadrants. Worst at left lower quadrant.), Soft. negative: Pulsatile Mass, Distended, Guarding, Rebound Rectal Exam: positive: heme negative stool, normal rectal tone, hemorrhoids, other (Good anal sphincter tone. Numerous circumfrential external hemorrhoids noted. No stool palpated within rectal vault. No albert blood upon gloved finger. Sample sent for occult blood.). negative: melena Musculoskeletal: positive: CVA Tenderness (R), CVA Tenderness (L), Muscle Spasm Integumentary: positive: Dry, Warm Neurologic: positive: bindery machine tender II-XII NML intact, Fully Oriented, Motor Strength 5/5 <Waldo Ferreira - Last Filed: 12/01/18 23:32> ED Treatment Course - LABORATORY CBC & Chemistry Diagram: 12/01/18 20:21 12/01/18 20:21 - ADDITIONAL ORDERS Additional order review: Laboratory Results 12/01/18 12/01/18 12/01/18 21:00 20:21 20:21 PT with INR 14.40 H INR 1.22 H Sodium 134 L Potassium 3.4 L Chloride 101 Carbon Dioxide 25 Anion Gap 9 BUN 11 Creatinine 0.8 Est GFR (CKD-EPI)AfAm 96.87 Est GFR (CKD-EPI)NonAf 83.58 Random Glucose 298 H Calcium 8.5 Magnesium 2.0 Total Bilirubin 0.8 AST 10 L ALT 14 Alkaline Phosphatase 143 H Creatine Kinase 52 Troponin I < 0.02 Total Protein 7.0 Albumin 4.0 Stool Occult Blood Negative 12/01/18 20:21 RBC 4.90 MCV 87.3 MCHC 34.2 RDW 12.8 MPV 8.0 Neutrophils % 66.3 Lymphocytes % 25.3 D Monocytes % 6.0 Eosinophils % 1.9 Basophils % 0.5 - Medications Given in the ED: ED Medications Discontinued Medications Generic Name Dose Route Start Last Admin Trade Name Freq PRN Reason Stop Dose Admin Acetaminophen 1,000 mg 12/01/18 22:06 12/01/18 22:52 Ofirmev Injection - IVPB 12/01/18 22:07 1,000 mg ONCE ONE Administration Aspirin 162 mg 12/01/18 20:10 12/01/18 20:26 Asa - PO 12/01/18 20:11 162 mg ONCE ONE Administration Magnesium Sulfate 2 gm 12/01/18 21:55 12/01/18 22:08 Magnesium Sulfate IVPB 12/01/18 21:56 2 gm ONCE ONE Administration Potassium Chloride 40 meq 12/01/18 21:55 12/01/18 22:08 K-Dur - PO 12/01/18 21:56 40 meq ONCE ONE Administration Sodium Chloride 500 ml 12/01/18 21:59 12/01/18 22:47 Normal Saline - IV 12/01/18 22:00 500 ml ONCE ONE Administration <Eliza Chou - Last Filed: 12/01/18 23:25> - LABORATORY CBC & Chemistry Diagram: 12/01/18 20:21 12/01/18 20:21 - Medications Given in the ED: ED Medications Discontinued Medications Generic Name Dose Route Start Last Admin Trade Name Freq PRN Reason Stop Dose Admin Aspirin 162 mg 12/01/18 20:10 12/01/18 20:26 Asa - PO 12/01/18 20:11 162 mg ONCE ONE Administration <Waldo Ferreira - Last Filed: 12/01/18 23:32> Medical Decision Making - Medical Decision Making 12/01/18 22:15 Patient is a 53 year old female with history of coronary artery disease, myocardial infarction s/p PCI with drug eluting stent in LAD (2010), ischemic cardiomyopathy s/p ICD (2012), diverticulosis (colonoscopy 2017), hypertension, hyperlipidemia, anxiety, depression, anorexia nervosa, presents with complaint of chest pain. Differential of [place], vs musculoskeletal etiology. EKG shows normal sinus rhythm, with anterolateral changes noted in prior EKG 2018. Patient received Aspirin during triage Troponin 0.02 Hypokalemia noted. Will replete with KCL 40mg PO, and Magnesium 2mg IV. Hydrate with 500cc IV normal saline Ofirmev 1000mg IV for pain control Will obtain upright chest radiograph to rule out fracture, pulmonary infiltrates , mediating widening, free air underneath diaphragm. 12/01/18 23:09 Blood glucose noted to be elevated. History of DM, however patient denies taking any medications. Will start on low dose Metformin 500mg once daily. Counselled regarding follow up with primary care physician. Pending chest radiograph, and improvement of symptoms, will likely discharge home. Counselled regarding importance of follow up with primary care physician, cartridge filler, parcel post delivery, and psychiatrist. All questions, concerns addressed and answered. Patient in agreement with plan. <Waldo Ferreira - Last Filed: 12/01/18 23:32> *DC/Admit/Observation/Transfer - Discharge Dispostion Decision to Admit order: No <Eliza Chou - Last Filed: 12/01/18 23:25> - Discharge Dispostion Decision to Admit order: No <Waldo Ferreira - Last Filed: 12/01/18 23:32> Diagnosis at time of Disposition: Abdominal pain, Chest pain, Atypical chest pain - Discharge Dispostion Disposition: HOME Condition at time of disposition: Improved - Prescriptions Prescriptions: Alcohol Antiseptic Pads [Alcohol Prep Pads] 1 each TP DAILY #1 box Blood Sugar Diagnostic [Test Strips] 1 each MC ASDIR 30 Days #30 strip Lancets 1 each MC DAILY 30 Days #1 box Metformin HCl [Glucophage] 500 mg PO DAILY #30 tablet Miscellaneous Medical Supply [Glucometer Device] 1 each .ROUTE ASDIR #1 kit - Referrals Referrals: Sandra Barry MD [Primary Care Provider] - Call tomorrow Jakob Carrillo MD [Staff Physician] - Call tomorrow Santos Scott MD [Staff Physician] - Call tomorrow - Patient Instructions Printed Discharge Instructions: DI for Atypical Chest Pain Additional Instructions: You were seen in the Emergency Department for chest pain, and abdominal pain. Your blood-work, EKG, and Xray were within normal limits. You are being discharged home. Continue taking your home medications as directed. Your blood sugar were noted to be elevated. We have sent prescription for Metformin 500mg once daily. Discuss this new medication with your primary care physician. Check your fasting blood sugars in the morning, and before meals. A prescription for blood glucose kit, test strips, lancets, and alcohol pads has been sent to your pharmacy. Keep a log of your blood sugars and bring with you to your primary care physician appointment. DO NOT take this medication if your fingerstick blood sugar is below 60, or if you feel lightheaded or dizzy. Drink some juice, and immediately proceed to nearest Emergency Room. Follow up with your primary care physician within one- two days of discharge. A referral has been provided. Follow up with your Fitting Room Operator within one- two days of discharge. A referral to Dr. Scott has been provided. Follow up with your Wall Worker within one- two days of discharge. A referral to Dr. Carrillo has been provided. Continue to follow the recommendations of your psychiatrist Dr. Castano. Return to the nearest emergency department if you experience worsening, concerning symptoms, subjective fevers, chills, shortness of breath, worsening chest pain, palpitations, worsening abdominal pain, nausea, vomiting, further bleeding with bowel movements, or any bleeding, trauma, loss of consciousness.
[2018-12-01 21:14] LABS: BASO % 0.5 % (0-2.0); EOS % 1.9 % (0-4.5); HEMATOCRIT 42.8 % (32.4-45.2); HEMOGLOBIN 14.6 GM/dL (10.7-15.3); LYMPH % 25.3 % (8-40); MCH 29.8 pg (25.7-33.7); MCHC 34.2 g/dl (32.0-36.0); MEAN CELL VOLUME 87.3 fl (80-96); NEUT % 66.3 % (42.8-82.8); PLATELET COUNT 183 K/MM3 (134-434); RDW 12.8 % (11.6-15.6); WHITE BLOOD COUNT 7.1 K/mm3 (4.0-10.0)
[2018-12-01 21:29] LABS: INR 1.22 (0.83-1.09); PROTHROMBIN TIME (PATIENT) 14.4 SEC (9.7-13.0)
[2018-12-01 21:47] LABS: ALK PHOS 143 U/L (45-117); ANION GAP 9 MMOL/L (8-16); BILIRUBIN,TOTAL 0.8 mg/dL (0.2-1); BLOOD UREA NITROGEN 11 mg/dL (7-18); CALCIUM 8.5 mg/dL (8.5-10.1); CHLORIDE 101 mmol/L (98-107); CO2 25 mmol/L (21-32); CREATININE 0.8 mg/dL (0.55-1.3); GLUCOSE,RANDOM 298 mg/dL (74-106); POTASSIUM 3.4 mmol/L (3.5-5.1); SGOT/AST 10 U/L (15-37); SGPT/ALT 14 U/L (13-61); SODIUM 134 mmol/L (136-145)
[2018-12-01] MEDS ORDERED: POTASSIUM CHLORIDE TABS 20 MEQ TABLET.ER (FP) PO ONE ×2 (21:55→21:58)
[2018-12-01] MEDS ORDERED: MAGNESIUM SULF 50% (8.12 MEQ/2 ML-1 GM VIAL) IVPB ONE (21:55)
[2018-12-01] MEDS ORDERED: MAGNESIUM 1GM/D5W - 2 GM/200 ML IVPB IVPB ONE (21:59)
[2018-12-01] MEDS ORDERED: SODIUM CHLORIDE 0.9% 500 ML INFUS.BAG IV ONE (21:59)
[2018-12-01] MEDS ORDERED: ACETAMINOPHEN 1000 MG/100 ML VIAL (NON FORMULARY) IVPB ONE (22:06)
[2018-12-01 22:18] VITALS: PULSE 65
[2018-12-01] MEDS ORDERED: ACETAMINOPHEN INJECTION 100 ML IVPB ONE (22:49)
[2018-12-01 23:45] LABS: URINE APPEARANCE CLOUDY; URINE BILIRUBIN NEGATIVE (NEGATIVE); URINE COLOR YELLOW; URINE GLUCOSE (UA) 3+ (NEGATIVE); URINE KETONE TRACE (NEGATIVE); URINE LEUK ESTERASE 1+ (NEGATIVE); URINE NITRITE NEGATIVE (NEGATIVE); URINE PROTEIN NEGATIVE (NEGATIVE)
--- NOTE | 2018-12-02 03:11 | PDOC ---
Documentation entered by Fozia Mcdonald SCRIBE, acting as scribe for Eliza Chou MD. Eliza Chou MD: This documentation has been prepared by the dimas, Fozia Mcdonald SCRIBE, under my direction and personally reviewed by me in its entirety. I confirm that the documentation accurately reflects all work, treatment, procedures, and medical decision making performed by me. Attending Attestation - Resident Resident Name: Waldo Ferreira - ED Attending Attestation I have performed the following: I have examined & evaluated the patient, The case was reviewed & discussed with the resident, I agree w/resident's findings & plan - HPI HPI: 12/01/18 23:08 The patient is a 53 year old female with a significant past medical history of CAD, [place] (2010), diverticulosis (colonoscopy 2017), hypertension, hyperlipidemia , anxiety , depression and anorexia nervosa who presents to the emergency department with chest pain since 5am this morning. The patient states that she was in bed this morning when she was woken up out of her sleep with her left sided chest pain. The patient describes her pain as sharp and left sided around the area where her pacemaker is located. She states that her chest pain radiates to her left shoulder with associated left arm numbness. She endorses similar episode of chest pain in the past. She denies any shortness of breath, palpitation. He patient also reports non associated abdominal pain since 2 pm today describes as a popping sensation. She reports associated cramping pain with radiation to her abdomen and back. She endorses bright red blood per rectum for 3 weeks. She states that she had one bm toda with blood. The patient denies eating any food today. Last to eat was yesterday (wafers and diet soda). The patient endorses nausea, but denies vomiting, fever, chill. She denies any other complaints. Social: Lives at home with mother. Former smoker (smoked approx. 7 cigarettes per day for 30 years). Quit 2014. Denies alcohol consumption. Admits Marijuana use once per week, denies other drug use. - Physicial Exam PE: 12/01/18 23:08 ADULT EXAM GENERAL: Awake, alert, and fully oriented, in no acute distress HEAD: No signs of trauma EYES: PERRLA, EOMI, sclera anicteric, conjunctiva clear ENT: Auricles normal inspection, hearing grossly normal, nares patent, oropharynx clear without exudates. Moist mucosa NECK: Normal ROM, supple, no lymphadenopathy, JVD, or masses LUNGS: Breath sounds equal, clear to auscultation bilaterally. No wheezes, and no crackles HEART: Regular rate and rhythm, normal S1 and S2, no murmurs, rubs or gallops ABDOMEN: Soft, nontender, normoactive bowel sounds. No guarding, no rebound. No masses EXTREMITIES: Normal range of motion, no edema. No clubbing or cyanosis. No cords, erythema, or tenderness NEUROLOGICAL: Cranial nerves II through XII grossly intact. Normal speech, normal gait SKIN: Warm, Dry, normal turgor, no rashes or lesions noted. - Medical Decision Making 12/01/18 22:33 Pt has a normal exam. She has no pitting edema. 12/02/18 03:11 Labs normal; K+ will be repleted and she will be hydrated. Exam normal. EKG normal and pt will be discharged home. CXR normal also.
--- NOTE | 2018-12-02 15:33 | EKG ---
Test Reason : Blood Pressure : / mmHG Vent. Rate : 067 BPM Atrial Rate : 067 BPM P-R Int : 188 ms QRS Dur : 086 ms QT Int : 420 ms P-R-T Axes : 059 003 082 degrees QTc Int : 443 ms NORMAL SINUS RHYTHM ANTEROSEPTAL INFARCT (CITED ON OR BEFORE 16-OCT-2014) ABNORMAL ECG WHEN COMPARED WITH ECG OF 06-MAY-2018 00:52, SERIAL CHANGES OF ANTEROSEPTAL INFARCT PRESENT Confirmed by MD Demetris, Anant ([id number]) on 12/02/2018 3:33:00 PM Referred By: Confirmed By:Anant Willson MD
== END 2018-12-01 23:37 | disposition home or self-care (01) ==
LOC: JER 19:56
PROC: 3E033GC Introduction of Other Therapeutic Substance into Peripheral Vein, Percutaneous Approach (ICD-10-PCS; principal; 2018-12-01)
PROC: 3E033NZ Introduction of Analgesics, Hypnotics, Sedatives into Peripheral Vein, Percutaneous Approach (ICD-10-PCS; 2018-12-01)
DX: R07.9 Chest pain, unspecified (principal); R10.84 Generalized abdominal pain; E87.6 Hypokalemia; I25.10 Atherosclerotic heart disease of native coronary artery without angina pectoris; I10 Essential (primary) hypertension; Z95.5 Presence of coronary angioplasty implant and graft; I25.5 Ischemic cardiomyopathy; I25.2 Old myocardial infarction; E78.5 Hyperlipidemia, unspecified; F41.8 Other specified anxiety disorders; F32.9 Major depressive disorder, single episode, unspecified; F50.00 Anorexia nervosa, unspecified; Z68.25 Body mass index [BMI] 25.0-25.9, adult
CPT/HCPCS: 36415; 71046-TC-FY; 80053; 81003; 82272; 82550; 83735; 84484; 85025; 85610; 93005; 93010; 99284-25; J0131

== ENCOUNTER 2019-02-03 09:38 | Inpatient (IN) | payer OTHER ==
[2019-02-03] MEDS ORDERED: ACETAMINOPHEN 1000 MG/100 ML VIAL (NON FORMULARY) IVPB ONE (10:21)
[2019-02-03] MEDS ORDERED: SODIUM CHLORIDE 0.9% 500 ML INFUS.BAG IV ONE (10:21)
[2019-02-03] MEDS ORDERED: ACETAMINOPHEN INJECTION 100 ML IVPB ONE (10:31)
--- NOTE | 2019-02-03 10:41 | PDOC ---
History of Present Illness - General Chief Complaint: Syncope/Near Syncope Stated Complaint: HYPERGLYCEMIA Time Seen by Provider: 02/03/19 10:00 History Source: Patient Exam Limitations: No Limitations - History of Present Illness Initial Comments: 02/03/19 10:39 Jossie Edouard is a 53 year old female with a significant past medical history of CAD, [place] (2010), diverticulosis (colonoscopy 2016), hypertension, hyperlipidemia, anxiety, depression and anorexia nervosa presenting today with syncopal episode and fall. This AM at 3AM, patient was walking in kitchen and felt dizzy and lightheaded, tried to hold onto kitchen counter but fell backwards and hit her head. Woke up a few hours later after lying on ground. Denies other injuries. Has had nausea/vomiting for last 4 days, along with abd pain in her left lower abdomen and bloody loose stools. Has hx hemorrhoids and diverticulosis, last colonoscopy more than a few years ago. Denies palpitations or chest pain, SOB, fever/chills. Went to PCP yesterday and blood works return BG 801. Past History - Past Medical History Allergies/Adverse Reactions: Allergies Allergy/AdvReac Type Severity Reaction Status Date / Time No Known Allergies Allergy Verified 02/03/19 09:39 Home Medications: Ambulatory Orders Alprazolam [Xanax] 1 mg PO BID 04/15/16 Aspirin [ASA -] 81 mg PO DAILY 04/15/16 Atorvastatin Ca [Lipitor] 40 mg PO HS 04/15/16 Gabapentin 600 mg PO TID 04/15/16 Topiramate 50 mg PO BID 04/15/16 Oxycodone HCl/Acetaminophen [Percocet 5-325 mg Tablet] 1 tab PO Q6H 05/21/16 Zolpidem Tartrate [Ambien] 10 mg PO HS 05/21/16 Buspirone HCl 15 mg PO BID 11/07/17 Tizanidine HCl 2 mg PO BID 11/07/17 Tizanidine HCl [Zanaflex (Nf) -] 2 mg PO BID 11/07/17 Carvedilol [Coreg -] 3.125 mg PO BID #60 tablet 11/09/17 Alcohol Antiseptic Pads [Alcohol Prep Pads] 1 each TP DAILY #1 box 12/01/18 Blood Sugar Diagnostic [Test Strips] 1 each ASDIR 30 Days #30 strip 12/01/18 Duloxetine HCl [Cymbalta] 30 mg PO BID 12/01/18 Lancets 1 each MC DAILY 30 Days #1 box 12/01/18 Metformin HCl [Glucophage] 500 mg PO DAILY #30 tablet 12/01/18 Miscellaneous Medical Supply [Glucometer Device] 1 each .ROUTE ASDIR #1 kit Anemia: No Asthma: No Cancer: No Cardiac Disorders: Yes (cardiac stent 2010/pacemaker02/2012, [place]) CVA: No COPD: Yes CHF: Yes DVT: No Dementia: No Diabetes: Yes GI Disorders: Yes (POOR APPETITE) Disorders: Yes (kidney stents, kidney stones, stress incontinence, KIDNEY FAILURE) HTN: Yes Hypercholesterolemia: Yes Liver Disease: No Psychiatric Problems: Yes (anxiety, anorexia, DEPRESSION.) Seizures: No Thyroid Disease: No - Surgical History Abdominal Surgery: Yes (ECTOPIC) Appendectomy: No Cardiac Surgery: Yes (cardiac cath, stent, ppm/aicd) Cholecystectomy: No Lung Surgery: No Neurologic Surgery: No Orthopedic Surgery: No - Family Disease History Family Disease History: Heart Disease: Father - Immunization History Td Vaccination: Yes TDAP Vaccination: Yes Immunization Up to Date: No (no flu vaccine) - Suicide/Smoking/Psychosocial Hx Smoking Status: No Smoking History: Former smoker Years of Tobacco Use: 10 Have you smoked in the past 12 months: No Number of Cigarettes Smoked Daily: 7 If you are a former smoker, when did you quit?: 2014 Cigars Per Day: 0 Information on smoking cessation initiated: No 'Breaking Loose' booklet given: 12/15/14 Hx Alcohol Use: No Drug/Substance Use Hx: No Substance Use Type: None Hx Substance Use Treatment: No Review of Systems - Review of Systems Constitutional: No: Chills, Fever HEENTM: Yes: Dental Problems (broken bridge after fall). No: Blurred Vision, Hearing Loss, Throat Pain Respiratory: No: Cough, Shortness of Breath Cardiac (ROS): Yes: Lightheadedness, Syncope. No: Chest Pain, Edema, Irregular Heart Rate, Palpitations ABD/GI: Yes: Diarrhea, Nausea, Rectal Bleeding, Vomiting : No: Burning, Dysuria, Discharge, Frequency, Flank Pain Musculoskeletal: Yes: Neck Pain Integumentary: No: Erythema, Rash Neurological: No: Headache, Numbness, Paresthesia, Weakness *Physical Exam - Vital Signs Last Vital Signs Temp Pulse Resp BP Pulse Ox 98.3 F 77 16 110/77 97 02/03/19 09:41 02/03/19 09:41 02/03/19 09:41 02/03/19 09:41 02/03/19 09:41 - Physical Exam General Appearance: Yes: Nourished, Appropriately Dressed, Mild Distress HEENT: positive: EOMI, MOHAMUD, Normal Voice, Symmetrical. negative: Scleral Icterus (R), Scleral Icterus (L) Neck: positive: Trachea midline, Normal Thyroid, Supple. negative: Lymphadenopathy (R), Lymphadenopathy (L) Respiratory/Chest: positive: Lungs Clear, Normal Breath Sounds. negative: Respiratory Distress Cardiovascular: positive: Regular Rhythm, Regular Rate. negative: Murmur, Gallop/S3, Gallop/S4 Gastrointestinal/Abdominal: positive: Normal Bowel Sounds, Tender (LLQ TTP, negative Carr's sign), Flat, Soft. negative: Organomegaly, Pulsatile Mass Rectal Exam: positive: heme negative stool, normal rectal tone, hemorrhoids ( large circumferential hemorrhoids, no signs of thrombosis). negative: melena Musculoskeletal: positive: Normal Inspection Extremity: positive: Normal Capillary Refill, Normal Inspection, Normal Range of Motion. negative: Tender Integumentary: positive: Normal Color, Dry, Warm Neurologic: positive: Fully Oriented, Alert, Normal Mood/Affect, Normal Response ED Treatment Course - LABORATORY CBC & Chemistry Diagram: 02/03/19 11:04 02/03/19 11:04 - RADIOLOGY Radiology Studies Ordered: Category Date Time Status ABDOMEN & PELVIS CT WITH CONTR [CT] Stat CT Scan 02/03/19 10:[address] WITHOUT CONTRAST [CT] Stat CT Scan 02/03/19 10:21 Ordered CHEST PA & LAT [RAD] Stat Radiology 02/03/19 10:19 Ordered Medical Decision Making - Medical Decision Making 02/03/19 10:52 Jossie Edouard is a 53 year old female with a significant past medical history of CAD, [place] (2010), diverticulosis (colonoscopy 2017), hypertension, hyperlipidemia, anxiety, depression and anorexia nervosa presenting today with syncopal episode and fall. Presentation concerning for reported BG 801, LLQ abdominal pain, bloody stools, and recent syncope with fall, consistent with DKA vs. diverticulosis vs. anemia vs. cardiac arrhythmia. Will evaluate for anemia/cardiac/metabolic etiology via CMP, CBC, ECG, UA, UC, PT/INR/PTT, cardiac profile, CXR. Will obtain CT head non-con and CT abd with con for eval head trauma and abdominal pain, r/o diverticulosis. 02/03/19 12:04 CXR no acute pathology. 02/03/19 13:30 No acute processes notable on head or abd CT. ICD company contacted by Dr. Addison, mill representative will come to interrogate ICD today. 02/03/19 14:[address] Motley, admitted to floor for further evaluation of patient's syncope, hematochezia, and blood glucose abnormality. *DC/Admit/Observation/Transfer Diagnosis at time of Disposition: Blood in stool Syncope Qualifiers: Syncope type: unspecified Qualified Code(s): R55 - Syncope and collapse - Discharge Dispostion Condition at time of disposition: Stable - Referrals - Patient Instructions - Post Discharge Activity
[2019-02-03 11:13] LABS: BASO % 0.5 % (0-2.0); EOS % 1.3 % (0-4.5); HEMATOCRIT 38.3 % (32.4-45.2); HEMOGLOBIN 13.8 GM/dL (10.7-15.3); LYMPH % 19.7 % (8-40); MCH 31.2 pg (25.7-33.7); MEAN CELL VOLUME 86.9 fl (80-96); MEAN PLT VOLUME 7.9 fl (7.5-11.1); MONO % 4.7 % (3.8-10.2); NEUT % 73.8 % (42.8-82.8); PLATELET COUNT 209 K/MM3 (134-434); RBC 4.41 M/mm3 (3.60-5.2); RDW 14.4 % (11.6-15.6); WHITE BLOOD COUNT 6.4 K/mm3 (4.0-10.0)
[2019-02-03 11:26] LABS: INR 1.19 (0.83-1.09); PROTHROMBIN TIME (PATIENT) 14.1 SEC (9.7-13.0)
--- NOTE | 2019-02-03 11:31 | PDOC ---
Attending Attestation - Resident Resident Name: Jan Gamboa - ED Attending Attestation I have performed the following: I have examined & evaluated the patient, The case was reviewed & discussed with the resident, I agree w/resident's findings & plan, Exceptions are as noted - HPI HPI: 02/03/19 11:31 54 year old female with multiple medical problems including COPD, CAD s/p VA, CHF, HTN, DM, recurrent syncope, pacemaker presents with syncope and bloody stools. In the last four days, the patient started to note left lower quadrant abdominal pain and intermittent bloody stools. The patient started to have nausea and intermittent vomiting. No fevers. Stated feeling generally weaker. Has hx of reported diverticulitis. Pt was in the middle of the night and in the kitchen when she suddenly collapsed and fell to the ground. Pt woke up at approximately 7 am and felt generally weak. [place] chest tightness, palpitations and shortness of breath. Arrived to the ED for followup. Pt also noted that the last fingerstick that she took was in the 800s. - Physicial Exam PE: 02/03/19 11:55 GENERAL: Awake, alert, and fully oriented, in no acute distress HEAD: No signs of trauma EYES: EOMI, sclera anicteric, conjunctiva clear ENT: Auricles normal inspection, hearing grossly normal, nares patent NECK: Normal ROM, supple LUNGS: Breath sounds equal, clear to auscultation bilaterally. No wheezes, and no crackles HEART: Regular rate and rhythm, normal S1 and S2, no murmurs, rubs or gallops ABDOMEN: Soft, TTP LLQ. No guarding, no rebound. No masses EXTREMITIES: Normal range of motion, no edema. No clubbing or cyanosis. No cords, erythema, or tenderness NEUROLOGICAL: Cranial nerves II through XII grossly intact. Normal speech SKIN: Warm, Dry, normal turgor, no rashes or lesions noted. - Medical Decision Making 02/03/19 11:56 Vital Signs Temp Pulse Resp BP Pulse Ox 98.3 F 77 16 110/77 97 02/03/19 09:41 02/03/19 09:41 02/03/19 09:41 02/03/19 09:41 02/03/19 09:41 54 year old female with rectal bleeding, LLQ pain and syncope. 1. Syncope: may be due to 2/2 blood loss and anemia from GI etiology. However, pt has significant cardiac problems. Will need to interrogate pacemaker and to find potential cardiac etiology. Labs, troponin, telemetry. Head CT for the injury to head. Pt also noted a glucose > 800 at home. Will need to check. 2. Abdominal pain: r/o diverticulitis, diverticular bleed, colitis, diarrhea- based infection. Labs, stool occult, stool cultures, CT abdomen and pelvis. Ultimately, pt should be admitted given her high risk. 02/03/19 13:16 CBC, BMP 02/03/19 11:04 02/03/19 11:04 CMP Sodium 136 mmol/L (136-145) 02/03/19 11:04 Potassium 4.4 mmol/L (3.5-5.1) 02/03/19 11:04 Chloride 104 mmol/L (98-107) 02/03/19 11:04 Carbon Dioxide 26 mmol/L (21-32) 02/03/19 11:04 Anion Gap 6 MMOL/L (8-16) L 02/03/19 11:04 BUN 3.3 mg/dL (7-18) L 02/03/19 11:04 Creatinine 1.0 mg/dL (0.55-1.3) 02/03/19 11:04 Est GFR (CKD-EPI)AfAm 73.45 02/03/19 11:04 Est GFR (CKD-EPI)NonAf 63.37 02/03/19 11:04 Random Glucose 371 mg/dL (74-106) H* 02/03/19 11:04 Calcium 9.0 mg/dL (8.5-10.1) 02/03/19 11:04 Magnesium 2.1 mg/dL (1.8-2.4) 02/03/19 11:04 Total Bilirubin 0.8 mg/dL (0.2-1) 02/03/19 11:04 AST 35 U/L (15-37) 02/03/19 11:04 ALT 12 U/L (13-61) L 02/03/19 11:04 Alkaline Phosphatase 169 U/L (45-117) H 02/03/19 11:04 Creatine Kinase 122 U/L (26-192) 02/03/19 11:04 Troponin I < 0.02 ng/ml (0.00-0.05) 02/03/19 11:04 Total Protein 6.9 g/dl (6.4-8.2) 02/03/19 11:04 Albumin 3.7 g/dl (3.4-5.0) 02/03/19 11:04 Labs reviewed. Acetone negative. Troponin negative. Ban[employer] from [employer] here to interrogate pacemaker. CT head negative. CT abdomen and pelvis negative. Given the syncope and persistent bloody stools, will admit patient for further management. 02/03/19 13:18 Interrogation demonstrated no acute findings (maybe some fluid in lungs as per solar sales representative and assessor) 02/03/19 13:[address] Stanton. Pt accepted to med/surg admitted. 02/03/19 13:33 Pt needs to be ruled out for c.diff as well. Stool cultures. *DC/Admit/Observation/Transfer Diagnosis at time of Disposition: Blood in stool Syncope Qualifiers: Syncope type: unspecified Qualified Code(s): R55 - Syncope and collapse - Discharge Dispostion Condition at time of disposition: Stable Decision to Admit order: Yes - Referrals - Patient Instructions - Post Discharge Activity Heart Score/ECG Review #1 ECG reviewed & interpreted by me at: 09:45 02/03/19 11:26 NSR 70, Q wave V1-V3, no std/santy, QTC 447, no brugada, no HOCM, no WPW
[2019-02-03 12:03] LABS: ALBUMIN 3.7 g/dl (3.4-5.0); ALK PHOS 169 U/L (45-117); ANION GAP 6 MMOL/L (8-16); BILIRUBIN,TOTAL 0.8 mg/dL (0.2-1); BLOOD UREA NITROGEN 3.3 mg/dL (7-18); CHLORIDE 104 mmol/L (98-107); CO2 26 mmol/L (21-32); MAGNESIUM 2.1 mg/dL (1.8-2.4); POTASSIUM 4.4 mmol/L (3.5-5.1); SGOT/AST 35 U/L (15-37); SGPT/ALT 12 U/L (13-61); SODIUM 136 mmol/L (136-145); TOT PROT 6.9 g/dl (6.4-8.2)
[2019-02-03 12:07] LABS: GLUCOSE,RANDOM 371 mg/dL (74-106)
[2019-02-03] MEDS ORDERED: IBUPROFEN 800 MG/8 ML IJ IVPB ONE (12:17)
[2019-02-03] MEDS ORDERED: SODIUM CHLORIDE 1,000 ML IV STA (12:46)
[2019-02-03] MEDS ORDERED: KETOROLAC TROMETHAMINE 30 MG/1 ML VIAL IVPUSH ONE (12:47)
[2019-02-03] MEDS ORDERED: morphine CARPU-JECT 2 MG/1 ML DISP.SYRIN IVPUSH ONE (13:36)
--- NOTE | 2019-02-03 14:16 | HP ---
Admitting History and Physical - Primary Care Physician PCP: Sandra Barry - Admission Chief Complaint: I don't feel well History of Present Illness: Ms Edouard is a pleasant 54 year old female who comes in with hyperglycemia and malaise. She has a history of anxiety with anorexia, she has been seeing her psychiatrist but states that she has stopped eating again. She says that she eats about 5-10 vanilla wafers a day and drinks only sprite zero. Yesterday she did not eat or drink anything. She says that she has been feeling weak and tired. She went to bed last night and next thing she knew she was in the kitchen. She is unsure of what happened but says she fell and woke up 3-4 hours later. She was called this morning and told that the glucose that was checked yesterday was over 800 and she needed to come to the ER. She presents here for further evaluation. She says she is having pain in her abdomen today. She denies fevers, chills, chest pain, shortness of breath, nausea, vomiting, diarrhea, constipation, difficulty or pain on urination, or swelling. History Source: Patient Limitations to Obtaining History: No Limitations - Past Medical History Cardiovascular: Yes: CAD, CHF, HTN, Hyperlipdemia, [place], Other (ICD,S/P PCI/LEVI) Pulmonary: Yes: COPD (CPAP at home), Sleep Apnea (CPAP at home but only uses 3- 4x/week at night) Gastrointestinal: Yes: Constipation, Hemorrhoids Renal/: Yes: Renal Inusuff (past episode of NEYMAR) Psych: Yes: Anxiety, Other (body dysmorphic disorder) Musculoskeletal: Yes: Chronic low back pain Rheumatology: Yes: Fibromyalgia Endocrine: Yes: Diabetes Mellitus - Past Surgical History Past Surgical History: Yes: AICD, Colonoscopy, , Stent - Smoking History Smoking history: Former smoker Have you smoked in the past 12 months: No Aproximately how many cigarettes per day: 7 If you are a former smoker, when did you quit?: 2014 - Alcohol/Substance Use Hx Alcohol Use: No History of Substance Use: reports: None - Social History ADL: Independent History of Recent Travel: No Home Medications - Allergies Allergies/Adverse Reactions: Allergies Allergy/AdvReac Type Severity Reaction Status Date / Time No Known Allergies Allergy Verified 02/03/19 09:39 - Home Medications Home Medications: Ambulatory Orders Alprazolam [Xanax] 1 mg PO BID 04/15/16 Aspirin [ASA -] 81 mg PO DAILY 04/15/16 Atorvastatin Ca [Lipitor] 40 mg PO HS 04/15/16 Gabapentin 600 mg PO TID 04/15/16 Topiramate 50 mg PO BID 04/15/16 Oxycodone HCl/Acetaminophen [Percocet 5-325 mg Tablet] 1 tab PO Q6H 05/21/16 Zolpidem Tartrate [Ambien] 10 mg PO HS 05/21/16 Buspirone HCl 15 mg PO BID 11/07/17 Tizanidine HCl 2 mg PO BID 11/07/17 Tizanidine HCl [Zanaflex (Nf) -] 2 mg PO BID 11/07/17 Carvedilol [Coreg -] 3.125 mg PO BID #60 tablet 11/09/17 Alcohol Antiseptic Pads [Alcohol Prep Pads] 1 each TP DAILY #1 box 12/01/18 Blood Sugar Diagnostic [Test Strips] 1 each MC ASDIR 30 Days #30 strip 12/01/18 Duloxetine HCl [Cymbalta] 30 mg PO BID 12/01/18 Lancets 1 each MC DAILY 30 Days #1 box 12/01/18 Metformin HCl [Glucophage] 500 mg PO DAILY #30 tablet 12/01/18 Miscellaneous Medical Supply [Glucometer Device] 1 each .ROUTE ASDIR #1 kit Family Disease History - Family Disease History Family Disease History: Diabetes: Mother (alive), Heart Disease: Grandparent ( paternal grandfather of heart at young age), Father ([place] at age 63 ), Mother Review of Systems Findings/Remarks: Full review of systems obtained, as per HPI and otherwise negative Physical Examination Vital Signs: Vital Signs Temperature 36.8 C 02/03/19 09:41 Pulse Rate 77 02/03/19 09:41 Respiratory Rate 16 02/03/19 09:41 Blood Pressure 110/77 02/03/19 09:41 O2 Sat by Pulse Oximetry (%) 97 02/03/19 09:41 Constitutional: Yes: Well Nourished, No Distress, Calm Eyes: Yes: Conjunctiva Clear, EOM Intact, PERRL Cardiovascular: Yes: Regular Rate and Rhythm. No: Gallop, Murmur, Rub Respiratory: Yes: Regular, CTA Bilaterally. No: Rales, Rhonchi, Wheezes Gastrointestinal: Yes: Normal Bowel Sounds, Soft, Tenderness. No: Distention Extremities: Yes: WNL Edema: No Labs: CBC, BMP 02/03/19 11:04 02/03/19 11:04 Imaging - Results Chest X-ray: Report Reviewed, Image Reviewed Cat Scan: Report Reviewed Problem List - Problems (1) Syncope Assessment/Plan: -lower suspicion this is syncope -sounds more consistent with ambien use -will hold ambien -will work up for syncope -check carotid ultrasound and ECHO -admit to telemetry Code(s): R55 - SYNCOPE AND COLLAPSE Qualifiers: Syncope type: unspecified Qualified Code(s): R55 - Syncope and collapse (2) Abdominal pain Assessment/Plan: -chronic -CT negative -monitor Code(s): R10.9 - UNSPECIFIED ABDOMINAL PAIN Qualifiers: (3) Anorexia nervosa Assessment/Plan: -patient will need to continue psychology appointments as an outpatient -will begin on full liquid diet -glucerna for meal time supplements as well -advance diet as tolerated Code(s): F50.00 - ANOREXIA NERVOSA, UNSPECIFIED (4) Diabetes mellitus Assessment/Plan: -poorly controlled -FSBS and SSI Code(s): E11.9 - TYPE 2 DIABETES MELLITUS WITHOUT COMPLICATIONS Qualifiers: Diabetes mellitus type: type 2 Diabetes mellitus superintendent container terminal insulin use: without halfway use Diabetes mellitus complication status: with hyperglycemia Qualified Code(s): E11.65 - Type 2 diabetes mellitus with hyperglycemia (5) Anxiety Assessment/Plan: -continue home regimen Code(s): F41.9 - ANXIETY DISORDER, UNSPECIFIED (6) CAD (coronary artery disease) Assessment/Plan: -quiescent -continue home regimen Code(s): I25.10 - ATHSCL HEART DISEASE OF [place] CORONARY ARTERY W/O ANG PCTRS Qualifiers: Coronary Disease-Associated Artery/Lesion type: [place] artery [place] vs. transplanted heart: [place] heart Associated angina: without angina Qualified Code(s): I25.10 - Atherosclerotic heart disease of [place] coronary artery without angina pectoris
[2019-02-03] MEDS: SODIUM CHLORIDE 1,000 ML IV SCH (14:33)
[2019-02-03] MEDS ORDERED: INSULIN (NOVOLOG) ASPART 100 UNITS/ML 10ML VIAL ONE (16:55)
[2019-02-03] MEDS: INSULIN SLIDING SCALE (NOVOLOG) 1 VIAL SQ SCH ×2 (17:02→21:55)
[2019-02-03] MEDS: oxyCODONE HCL 5 MG TABLET PO SCH ×2 (18:00→23:06)
[2019-02-03] MEDS: ACETAMINOPHEN 325 MG TABLET (FP) PO SCH ×2 (18:00→23:07)
[2019-02-03 21:04] VITALS: BMI 25.0
[2019-02-03 21:35] LABS: URINE APPEARANCE CLEAR; URINE BILIRUBIN NEGATIVE (NEGATIVE); URINE COLOR YELLOW; URINE KETONE NEGATIVE (NEGATIVE)
[2019-02-03 21:36] LABS: URINE LEUK ESTERASE NEGATIVE (NEGATIVE); URINE NITRITE NEGATIVE (NEGATIVE); URINE PROTEIN NEGATIVE (NEGATIVE)
[2019-02-03] MEDS: TIZANIDINE HCL 2 MG TABLET PO SCH (21:54)
[2019-02-03] MEDS: DULoxetine HCL 30 MG CAPSULE.DR PO SCH (21:55)
[2019-02-03] MEDS: ATORVASTATIN CA 40 MG TABLET (FP) PO SCH (21:55)
[2019-02-03] MEDS: TOPIRAMATE 25 MG TABLET (FP) PO SCH (21:55)
[2019-02-03] MEDS: CARVEDILOL 3.125 MG TABLET (FP) PO SCH (21:55)
[2019-02-03] MEDS: GABAPENTIN 300 MG CAPSULE (FP) PO SCH (21:55)
[2019-02-03] MEDS: BUSPIRONE HCL 10 MG, BUSPIRONE HCL 5 MG PO SCH (21:55)
[2019-02-03] MEDS: ALPRAZolam 2 MG TABLET PO SCH (21:55)
[2019-02-03] MEDS ORDERED: PATIENT'S OWN MEDICATION (NON-FORMULARY) (Gabapentin [Gabapentin] 600 MG) PO SCH (22:00)
[2019-02-03] MEDS ORDERED: PATIENT'S OWN MEDICATION (NON-FORMULARY) (Topiramate [Topiramate] 50 MG) PO SCH (22:00)
[2019-02-03] MEDS ORDERED: BUSPIRONE HCL 15 MG PO SCH (22:00)
[2019-02-03] MEDS ORDERED: PATIENT'S OWN MEDICATION (NON-FORMULARY) (Tizanidine Hcl [Tizanidine Hcl] 2 MG) PO SCH (22:00)
[2019-02-03] MEDS ORDERED: busPIRone HCL 10 MG TABLET (FP) PO SCH (22:00)
[2019-02-03 23:46] LABS: URINE WBC 0 /hpf (0-5)
[2019-02-03 23:47] LABS: URINE BACTERIA FEW /hpf (NEGATIVE)
[2019-02-04] MEDS ORDERED: SODIUM CHLORIDE 250 ML IV STA ×2 (02:12→03:31)
[2019-02-04] MEDS: oxyCODONE HCL 5 MG TABLET PO SCH (05:15)
[2019-02-04] MEDS: GABAPENTIN 300 MG CAPSULE (FP) PO SCH ×3 (05:58→21:44)
[2019-02-04] MEDS: ACETAMINOPHEN 325 MG TABLET (FP) PO SCH (05:58)
[2019-02-04] MEDS: INSULIN SLIDING SCALE (NOVOLOG) 1 VIAL SQ SCH ×4 (06:01→21:46)
[2019-02-04] MEDS ORDERED: ACETAMINOPHEN 325 MG TABLET (FP) PO PRN (07:30)
[2019-02-04 07:49] LABS: BASO % 0.5 % (0-2.0); EOS % 2.6 % (0-4.5); HEMATOCRIT 33.6 % (32.4-45.2); HEMOGLOBIN 11.9 GM/dL (10.7-15.3); LYMPH % 37.7 % (8-40); MCH 30.8 pg (25.7-33.7); MCHC 35.4 g/dl (32.0-36.0); MEAN CELL VOLUME 87.1 fl (80-96); MEAN PLT VOLUME 7.6 fl (7.5-11.1); MONO % 6.1 % (3.8-10.2); NEUT % 53.1 % (42.8-82.8); PLATELET COUNT 187 K/MM3 (134-434); RBC 3.86 M/mm3 (3.60-5.2); RDW 14.4 % (11.6-15.6); WHITE BLOOD COUNT 4.9 K/mm3 (4.0-10.0)
[2019-02-04 08:14] LABS: BILIRUBIN,TOTAL 0.7 mg/dL (0.2-1); BLOOD UREA NITROGEN 5.5 mg/dL (7-18); CALCIUM 8.3 mg/dL (8.5-10.1); CREATININE 0.6 mg/dL (0.55-1.3); MAGNESIUM 1.7 mg/dL (1.8-2.4); PHOSPHOROUS 3.4 mg/dL (2.5-4.9); POTASSIUM 3.8 mmol/L (3.5-5.1); TOT PROT 5.5 g/dl (6.4-8.2)
[2019-02-04] MEDS ORDERED: PT OWN MED DRAWER 7, Y5N ONE ×2 (09:24→21:28)
[2019-02-04] MEDS: DULoxetine HCL 30 MG CAPSULE.DR PO SCH ×2 (09:32→21:52)
[2019-02-04] MEDS: TOPIRAMATE 25 MG TABLET (FP) PO SCH ×2 (09:32→21:44)
[2019-02-04] MEDS: ASPIRIN 81 MG CHEWABLE TABLETS PO SCH (09:32)
[2019-02-04] MEDS: TIZANIDINE HCL 2 MG TABLET PO SCH ×2 (09:32→21:44)
[2019-02-04] MEDS: ALPRAZolam 2 MG TABLET PO SCH ×2 (09:33→21:46)
[2019-02-04] MEDS: BUSPIRONE HCL 10 MG, BUSPIRONE HCL 5 MG PO SCH ×2 (09:33→21:45)
[2019-02-04] MEDS: CARVEDILOL 3.125 MG TABLET (FP) PO SCH ×2 (09:46→21:44)
[2019-02-04] MEDS ORDERED: MAGNESIUM SULF 50% (8.12 MEQ/2 ML-1 GM VIAL) IVPB ONE (09:52)
--- NOTE | 2019-02-04 10:06 | PN ---
Progress Note, Physician Chief Complaint: Ms Edouard complains of myalgias. No cp, sob, n/v. Still not eating. - Current Medication List Current Medications: Active Medications Acetaminophen (Tylenol -) 325 mg PO Q6HPO PRN PRN Reason: PAIN LEVEL 6-10 Alprazolam (Xanax -) 1 mg PO BID [facility] Last Admin: 02/04/19 09:33 Dose: 1 mg Aspirin (Asa -) 81 mg PO DAILY [facility] Last Admin: 02/04/19 09:32 Dose: 81 mg Atorvastatin Calcium (Lipitor -) 40 mg PO HS [facility] Last Admin: 02/03/19 21:55 Dose: 40 mg Buspirone HCl 10 mg/ Buspirone (HCl 5 mg) 15 mg PO BID [facility] Last Admin: 02/04/19 09:33 Dose: 15 mg Carvedilol (Coreg -) 3.125 mg PO BID [facility] Last Admin: 02/04/19 09:46 Dose: Not Given Duloxetine HCl (Cymbalta -) 30 mg PO BID [facility] Last Admin: 02/04/19 09:32 Dose: 30 mg Gabapentin (Neurontin -) 600 mg PO TID [facility] Last Admin: 02/04/19 05:58 Dose: 600 mg Sodium Chloride (Normal Saline -) 1,000 mls @ 83 mls/hr IV ASDIR [facility] Last Admin: 02/03/19 14:33 Dose: 83 mls/hr Insulin Aspart (Novolog Vial Sliding Scale -) 1 vial SQ ACHS [facility]; Protocol Last Admin: 02/04/19 06:01 Dose: Not Given Magnesium Sulfate (Magnesium Sulfate) 1 gm IVPB ONCE ONE Stop: 02/04/19 09:53 Oxycodone HCl (Roxicodone -) 5 mg PO Q6HPO PRN PRN Reason: PAIN LEVEL 6-10 Tizanidine HCl (Tizanidine Hcl) 2 mg PO BID [facility] Last Admin: 02/04/19 09:32 Dose: 2 mg Topiramate (Topamax -) 50 mg PO BID [facility] Last Admin: 02/04/19 09:32 Dose: 50 mg - Objective Vital Signs: Vital Signs Temperature 36.7 C 02/04/19 05:01 Pulse Rate 54 L 02/04/19 05:01 Respiratory Rate 20 02/04/19 05:01 Blood Pressure 102/58 L 02/04/19 05:01 O2 Sat by Pulse Oximetry (%) 98 02/03/19 21:00 Constitutional: Yes: Well Nourished, No Distress Cardiovascular: Yes: Regular Rate and Rhythm. No: Gallop, Murmur, Rub Respiratory: Yes: Regular, CTA Bilaterally. No: Rales, Rhonchi, Wheezes Gastrointestinal: Yes: Normal Bowel Sounds, Soft. No: Distention, Tenderness Extremities: Yes: WNL Edema: No Labs: CBC, BMP 02/04/19 06:40 02/04/19 06:40 INR, PTT INR 1.19 (0.83-1.09) H 02/03/19 11:04 Problem List - Problems (1) Syncope Code(s): R55 - SYNCOPE AND COLLAPSE Qualifiers: Syncope type: unspecified Qualified Code(s): R55 - Syncope and collapse (2) Abdominal pain Code(s): R10.9 - UNSPECIFIED ABDOMINAL PAIN Qualifiers: (3) Anorexia nervosa Code(s): F50.00 - ANOREXIA NERVOSA, UNSPECIFIED (4) Diabetes mellitus Code(s): E11.9 - TYPE 2 DIABETES MELLITUS WITHOUT COMPLICATIONS Qualifiers: Diabetes mellitus type: type 2 Diabetes mellitus exterminator helper insulin use: without exterminator helper use Diabetes mellitus complication status: with hyperglycemia Qualified Code(s): E11.65 - Type 2 diabetes mellitus with hyperglycemia (5) Anxiety Code(s): F41.9 - ANXIETY DISORDER, UNSPECIFIED (6) CAD (coronary artery disease) Code(s): I25.10 - ATHSCL HEART DISEASE OF [place] CORONARY ARTERY W/O ANG PCTRS Qualifiers: Coronary Disease-Associated Artery/Lesion type: [place] artery [place] vs. transplanted heart: [place] heart Associated angina: without angina Qualified Code(s): I25.10 - Atherosclerotic heart disease of [place] coronary artery without angina pectoris Assessment/Plan (1) Syncope Assessment/Plan: -patient says she is not taking ambien -will obtain list of medications -suspect polypharmacy with decreased intake Code(s): R55 - SYNCOPE AND COLLAPSE Qualifiers: Syncope type: unspecified Qualified Code(s): R55 - Syncope and collapse (2) Abdominal pain Assessment/Plan: -chronic -CT negative -monitor Code(s): R10.9 - UNSPECIFIED ABDOMINAL PAIN Qualifiers: (3) Anorexia nervosa Assessment/Plan: -patient will need to continue psychology appointments as an outpatient -still not eating much -clarified to bring glucerna with each meal -instructed patient that she needs to begin eating again Code(s): F50.00 - ANOREXIA NERVOSA, UNSPECIFIED (4) Diabetes mellitus Assessment/Plan: -improved control in hospital -FSBS and SSI Code(s): E11.9 - TYPE 2 DIABETES MELLITUS WITHOUT COMPLICATIONS Qualifiers: Diabetes mellitus type: type 2 Diabetes mellitus exterminator helper insulin use: without exterminator helper use Diabetes mellitus complication status: with hyperglycemia Qualified Code(s): E11.65 - Type 2 diabetes mellitus with hyperglycemia (5) Anxiety Assessment/Plan: -continue home regimen Code(s): F41.9 - ANXIETY DISORDER, UNSPECIFIED (6) CAD (coronary artery disease) Assessment/Plan: -quiescent -continue home regimen Code(s): I25.10 - ATHSCL HEART DISEASE OF [place] CORONARY ARTERY W/O ANG PCTRS Qualifiers: Coronary Disease-Associated Artery/Lesion type: [place] artery [place] vs. transplanted heart: [place] heart Associated angina: without angina Qualified Code(s): I25.10 - Atherosclerotic heart disease of [place] coronary artery without angina pectoris
--- NOTE | 2019-02-04 10:37 | EKG ---
Test Reason : Blood Pressure : / mmHG Vent. Rate : 070 BPM Atrial Rate : 070 BPM P-R Int : 156 ms QRS Dur : 074 ms QT Int : 414 ms P-R-T Axes : 016 027 084 degrees QTc Int : 447 ms NORMAL SINUS RHYTHM ANTEROSEPTAL INFARCT (CITED ON OR BEFORE 16-OCT-2014) NONSPECIFIC ST AND T WAVE ABNORMALITY ABNORMAL ECG WHEN COMPARED WITH ECG OF 01-DEC-2018 19:54, NO SIGNIFICANT CHANGE WAS FOUND Confirmed by BILLIE NICOLE MD ([id number]) on 02/04/2019 10:37:23 AM Referred By: Confirmed By:BILLIE NICOLE MD
[2019-02-04] MEDS: oxyCODONE HCL 5 MG TABLET PO PRN ×2 (12:50→20:09)
[2019-02-04] MEDS: SODIUM CHLORIDE 1,000 ML IV SCH (15:03)
[2019-02-04] MEDS: ATORVASTATIN CA 40 MG TABLET (FP) PO SCH (21:46)
[2019-02-05] MEDS: oxyCODONE HCL 5 MG TABLET PO PRN ×3 (03:03→22:56)
[2019-02-05 06:00] LABS: BASO % 0.4 % (0-2.0); EOS % 1.7 % (0-4.5); HEMOGLOBIN 11.7 GM/dL (10.7-15.3); LYMPH % 29.9 % (8-40); MCH 31.1 pg (25.7-33.7); MCHC 35.5 g/dl (32.0-36.0); MEAN CELL VOLUME 87.7 fl (80-96); MEAN PLT VOLUME 7.4 fl (7.5-11.1); PLATELET COUNT 167 K/MM3 (134-434); RBC 3.76 M/mm3 (3.60-5.2); RDW 14.3 % (11.6-15.6); WHITE BLOOD COUNT 4.9 K/mm3 (4.0-10.0)
[2019-02-05] MEDS: INSULIN SLIDING SCALE (NOVOLOG) 1 VIAL SQ SCH ×4 (06:38→21:28)
[2019-02-05] MEDS: GABAPENTIN 300 MG CAPSULE (FP) PO SCH ×3 (06:38→21:28)
[2019-02-05 07:38] LABS: BLOOD UREA NITROGEN 6.8 mg/dL (7-18); CALCIUM 8.2 mg/dL (8.5-10.1); CREATININE 0.5 mg/dL (0.55-1.3); MAGNESIUM 1.9 mg/dL (1.8-2.4); PHOSPHOROUS 3.7 mg/dL (2.5-4.9); POTASSIUM 3.8 mmol/L (3.5-5.1)
[2019-02-05] MEDS ORDERED: PT OWN MED DRAWER 7, Y5N ONE ×6 (09:10→21:17)
[2019-02-05] MEDS: ASPIRIN 81 MG CHEWABLE TABLETS PO SCH (09:16)
[2019-02-05] MEDS: DULoxetine HCL 30 MG CAPSULE.DR PO SCH ×2 (09:16→21:28)
[2019-02-05] MEDS: TOPIRAMATE 25 MG TABLET (FP) PO SCH ×2 (09:16→21:28)
[2019-02-05] MEDS: BUSPIRONE HCL 10 MG, BUSPIRONE HCL 5 MG PO SCH ×2 (09:17→21:29)
[2019-02-05] MEDS: TIZANIDINE HCL 2 MG TABLET PO SCH ×2 (09:17→21:29)
[2019-02-05] MEDS: ALPRAZolam 2 MG TABLET PO SCH ×2 (09:17→21:30)
[2019-02-05] MEDS: CARVEDILOL 3.125 MG TABLET (FP) PO SCH ×3 (09:22→21:27)
--- NOTE | 2019-02-05 10:10 | PN ---
Progress Note, Physician Chief Complaint: Ms Edouard complains of dizziness on standing. No cp, sob, n/v. Still with myalgias but improved. Says she is ready to eat today. - Current Medication List Current Medications: Active Medications Acetaminophen (Tylenol -) 325 mg PO Q6HPO PRN PRN Reason: PAIN LEVEL 6-10 Last Admin: 02/05/19 03:05 Dose: 325 mg Alprazolam (Xanax -) 1 mg PO BID [facility] Last Admin: 02/05/19 09:17 Dose: 1 mg Aspirin (Asa -) 81 mg PO DAILY [facility] Last Admin: 02/05/19 09:16 Dose: 81 mg Atorvastatin Calcium (Lipitor -) 40 mg PO HS [facility] Last Admin: 02/04/19 21:46 Dose: 40 mg Buspirone HCl 10 mg/ Buspirone (HCl 5 mg) 15 mg PO BID [facility] Last Admin: 02/05/19 09:17 Dose: 15 mg Carvedilol (Coreg -) 3.125 mg PO BID [facility] Duloxetine HCl (Cymbalta -) 30 mg PO BID [facility] Last Admin: 02/05/19 09:16 Dose: 30 mg Gabapentin (Neurontin -) 600 mg PO TID [facility] Last Admin: 02/05/19 06:38 Dose: 600 mg Sodium Chloride (Normal Saline -) 1,000 mls @ 83 mls/hr IV ASDIR [facility] Last Admin: 02/04/19 15:03 Dose: Not Given Insulin Aspart (Novolog Vial Sliding Scale -) [address] [facility]; Protocol Last Admin: 02/05/19 06:38 Dose: 2 units Oxycodone HCl (Roxicodone -) 5 mg PO Q6HPO PRN PRN Reason: PAIN LEVEL 6-10 Last Admin: 02/05/19 03:03 Dose: 5 mg Tizanidine HCl (Tizanidine Hcl) 2 mg PO BID [facility] Last Admin: 02/05/19 09:17 Dose: 2 mg Topiramate (Topamax -) 50 mg PO BID [facility] Last Admin: 02/05/19 09:16 Dose: 50 mg - Objective Vital Signs: Vital Signs Temperature 36.4 C 02/05/19 08:00 Pulse Rate 54 L 02/05/19 08:07 Respiratory Rate 17 02/05/19 08:00 Blood Pressure 110/63 02/05/19 08:07 O2 Sat by Pulse Oximetry (%) 97 02/04/19 21:00 Constitutional: Yes: Well Nourished, No Distress, Calm Cardiovascular: Yes: Bradycardia. No: Gallop, Murmur, Rub Respiratory: Yes: Regular, CTA Bilaterally. No: Rales, Rhonchi, Wheezes Gastrointestinal: Yes: Normal Bowel Sounds, Soft. No: Distention, Tenderness Extremities: Yes: WNL Edema: No Labs: CBC, BMP 02/05/19 05:30 02/05/19 05:30 INR, PTT INR 1.19 (0.83-1.09) H 02/03/19 11:04 Problem List - Problems (1) Syncope Code(s): R55 - SYNCOPE AND COLLAPSE Qualifiers: Syncope type: unspecified Qualified Code(s): R55 - Syncope and collapse (2) Abdominal pain Code(s): R10.9 - UNSPECIFIED ABDOMINAL PAIN Qualifiers: (3) Anorexia nervosa Code(s): F50.00 - ANOREXIA NERVOSA, UNSPECIFIED (4) Diabetes mellitus Code(s): E11.9 - TYPE 2 DIABETES MELLITUS WITHOUT COMPLICATIONS Qualifiers: Diabetes mellitus type: type 2 Diabetes mellitus intermodal dispatcher insulin use: without intermodal dispatcher use Diabetes mellitus complication status: with hyperglycemia Qualified Code(s): E11.65 - Type 2 diabetes mellitus with hyperglycemia (5) Anxiety Code(s): F41.9 - ANXIETY DISORDER, UNSPECIFIED (6) CAD (coronary artery disease) Code(s): I25.10 - ATHSCL HEART DISEASE OF [place] CORONARY ARTERY W/O ANG PCTRS Qualifiers: Coronary Disease-Associated Artery/Lesion type: [place] artery [place] vs. transplanted heart: [place] heart Associated angina: without angina Qualified Code(s): I25.10 - Atherosclerotic heart disease of [place] coronary artery without angina pectoris Assessment/Plan (1) Syncope Assessment/Plan: -confirm medication list -will contact PCP to discuss if needs less anxiety medications -no need for ECHO, recently performed last month Code(s): R55 - SYNCOPE AND COLLAPSE Qualifiers: Syncope type: unspecified Qualified Code(s): R55 - Syncope and collapse (2) Abdominal pain Assessment/Plan: -chronic -CT negative -monitor Code(s): R10.9 - UNSPECIFIED ABDOMINAL PAIN Qualifiers: (3) Anorexia nervosa Assessment/Plan: -patient will need to continue psychology appointments as an outpatient -advance diet today Code(s): F50.00 - ANOREXIA NERVOSA, UNSPECIFIED (4) Diabetes mellitus Assessment/Plan: -improved control in hospital -FSBS and SSI Code(s): E11.9 - TYPE 2 DIABETES MELLITUS WITHOUT COMPLICATIONS Qualifiers: Diabetes mellitus type: type 2 Diabetes mellitus jail insulin use: without jail use Diabetes mellitus complication status: with hyperglycemia Qualified Code(s): E11.65 - Type 2 diabetes mellitus with hyperglycemia (5) Anxiety Assessment/Plan: -continue home regimen Code(s): F41.9 - ANXIETY DISORDER, UNSPECIFIED (6) CAD (coronary artery disease) Assessment/Plan: -quiescent -continue home regimen Code(s): I25.10 - ATHSCL HEART DISEASE OF [place] CORONARY ARTERY W/O ANG PCTRS Qualifiers: Coronary Disease-Associated Artery/Lesion type: [place] artery [place] vs. transplanted heart: [place] heart Associated angina: without angina Qualified Code(s): I25.10 - Atherosclerotic heart disease of [place] coronary artery without angina pectoris
[2019-02-05] MEDS: SODIUM CHLORIDE 1,000 ML IV SCH (15:27)
[2019-02-05] MEDS ORDERED: PHENYLEPHRINE HCL/COCOA BUTTER SUPPOSITORY RC SCH (15:30)
[2019-02-05] MEDS: PRAMOXINE HCL/MINERAL OIL/ZNOX 30 GM TUBE RC SCH (19:09)
[2019-02-05] MEDS: DOCUSATE SODIUM 100 MG CAPSULE (FP) PO SCH (21:27)
[2019-02-05] MEDS: POLYETHYLENE GLYCOL 3350 119 GM BTL PO SCH (21:27)
[2019-02-05] MEDS: ATORVASTATIN CA 40 MG TABLET (FP) PO SCH (21:28)
[2019-02-06 02:18] VITALS: PULSE 53
[2019-02-06] MEDS: oxyCODONE HCL 5 MG TABLET PO PRN ×2 (06:03→12:22)
[2019-02-06] MEDS: GABAPENTIN 300 MG CAPSULE (FP) PO SCH (06:03)
[2019-02-06 06:05] LABS: BASO % 0.6 % (0-2.0); EOS % 1.9 % (0-4.5); HEMATOCRIT 33.9 % (32.4-45.2); HEMOGLOBIN 11.9 GM/dL (10.7-15.3); LYMPH % 28.8 % (8-40); MCH 31.1 pg (25.7-33.7); MCHC 34.9 g/dl (32.0-36.0); MEAN CELL VOLUME 88.9 fl (80-96); MEAN PLT VOLUME 7.6 fl (7.5-11.1); MONO % 5.1 % (3.8-10.2); NEUT % 63.6 % (42.8-82.8); PLATELET COUNT 182 K/MM3 (134-434); RBC 3.81 M/mm3 (3.60-5.2); RDW 14.7 % (11.6-15.6); WHITE BLOOD COUNT 5.5 K/mm3 (4.0-10.0)
[2019-02-06] MEDS: INSULIN SLIDING SCALE (NOVOLOG) 1 VIAL SQ SCH ×2 (06:06→11:26)
[2019-02-06 06:14] LABS: BLOOD UREA NITROGEN 5.7 mg/dL (7-18); CALCIUM 8.5 mg/dL (8.5-10.1); CREATININE 0.6 mg/dL (0.55-1.3); PHOSPHOROUS 3.8 mg/dL (2.5-4.9); POTASSIUM 4.1 mmol/L (3.5-5.1)
[2019-02-06 08:26] VITALS: BP 106/68; TEMP 98.1
[2019-02-06] MEDS ORDERED: PT OWN MED DRAWER 7, Y5N ONE (09:39)
[2019-02-06] MEDS: TIZANIDINE HCL 2 MG TABLET PO SCH (09:42)
[2019-02-06] MEDS: ASPIRIN 81 MG CHEWABLE TABLETS PO SCH (09:42)
[2019-02-06] MEDS: DOCUSATE SODIUM 100 MG CAPSULE (FP) PO SCH (09:42)
[2019-02-06] MEDS: TOPIRAMATE 25 MG TABLET (FP) PO SCH (09:42)
[2019-02-06] MEDS: DULoxetine HCL 30 MG CAPSULE.DR PO SCH (09:42)
[2019-02-06] MEDS: CARVEDILOL 3.125 MG TABLET (FP) PO SCH (09:42)
[2019-02-06] MEDS: BUSPIRONE HCL 10 MG, BUSPIRONE HCL 5 MG PO SCH (09:42)
[2019-02-06] MEDS: ALPRAZolam 2 MG TABLET PO SCH (09:43)
[2019-02-06] MEDS: POLYETHYLENE GLYCOL 3350 119 GM BTL PO SCH (09:43)
[2019-02-06] MEDS: PRAMOXINE HCL/MINERAL OIL/ZNOX 30 GM TUBE RC SCH (09:43)
--- NOTE | 2019-02-06 11:28 | DS ---
Physical Examination Vital Signs: Vital Signs Temperature 36.7 C 02/06/19 08:26 Pulse Rate 53 L 02/06/19 08:26 Respiratory Rate 16 02/06/19 08:26 Blood Pressure 106/68 02/06/19 08:26 O2 Sat by Pulse Oximetry (%) 99 02/06/19 08:27 Constitutional: Yes: Well Nourished, No Distress, Calm Cardiovascular: Yes: Regular Rate and Rhythm. No: Gallop, Murmur, Rub Respiratory: Yes: Regular, CTA Bilaterally. No: Rales, Rhonchi, Wheezes Gastrointestinal: Yes: Normal Bowel Sounds, Soft. No: Distention, Tenderness Extremities: Yes: WNL Edema: No Labs: CBC, BMP 02/06/19 05:20 02/06/19 05:20 Discharge Summary Reason For Visit: SYNCOPE AND COLLAPSE;BLOOD PRESENT IN STOOL Current Active Problems Blood in stool (Acute) Syncope (Acute) Hospital Course: (1) Syncope Code(s): R55 - SYNCOPE AND COLLAPSE Qualifiers: Syncope type: unspecified Qualified Code(s): R55 - Syncope and collapse (2) Abdominal pain Code(s): R10.9 - UNSPECIFIED ABDOMINAL PAIN Qualifiers: (3) Anorexia nervosa Code(s): F50.00 - ANOREXIA NERVOSA, UNSPECIFIED (4) Diabetes mellitus Code(s): E11.9 - TYPE 2 DIABETES MELLITUS WITHOUT COMPLICATIONS Qualifiers: Diabetes mellitus type: type 2 Diabetes mellitus buttermaker continuous churn insulin use: without buttermaker continuous churn use Diabetes mellitus complication status: with hyperglycemia Qualified Code(s): E11.65 - Type 2 diabetes mellitus with hyperglycemia (5) Anxiety Code(s): F41.9 - ANXIETY DISORDER, UNSPECIFIED (6) CAD (coronary artery disease) Code(s): I25.10 - ATHSCL HEART DISEASE OF [place] CORONARY ARTERY W/O ANG PCTRS Qualifiers: Coronary Disease-Associated Artery/Lesion type: [place] artery [place] vs. transplanted heart: [place] heart Associated angina: without angina Qualified Code(s): I25.10 - Atherosclerotic heart disease of [place] coronary artery without angina pectoris Ms Edouard is a very pleasant 54 year old female who comes in with syncope. The presentation was unusual because she describes it more as not knowing how she ended up in the kitchen and then waking up hours later on the floor. Suspect this is more medication/polypharmacy in combination with relapsing of anorexia. She was admitted to the hospital. She had a head CT which was normal. Nasal perforation was noted, will consult outpatient ENT. She was hydratred and her diet was advanced. She is currently feeling better now and she is eating more. At this point I will not change her psychiatry regimen, I am unclear which medications are prescribed by her PCP vs psychiatrist and do not want to cause further relapse of anorexia. I instructed her to see her PCP and psychiatrist as she may benefit from a decrease in medications. She understood and will follow up. She is safe for discharge home. 32 minutes spent in preparation of this discharge Condition: Stable - Instructions Diet, Activity, Other Instructions: resume previous diet and activity. Referrals: Sandra Barry MD [Primary Care Provider] - Disposition: HOME - Home Medications Comprehensive Discharge Medication List: Ambulatory Orders Alprazolam [Xanax] 1 mg PO BID 04/15/16 Aspirin [ASA -] 81 mg PO DAILY 04/15/16 Atorvastatin Ca [Lipitor] 40 mg PO HS 04/15/16 Gabapentin 600 mg PO TID 04/15/16 Topiramate 50 mg PO BID 04/15/16 Oxycodone HCl/Acetaminophen [Percocet 5-325 mg Tablet] 1 tab PO Q6H 05/21/16 Buspirone HCl 15 mg PO BID 11/07/17 Tizanidine HCl 2 mg PO BID 11/07/17 Carvedilol [Coreg -] 3.125 mg PO BID #60 tablet 11/09/17 Alcohol Antiseptic Pads [Alcohol Prep Pads] 1 each TP DAILY #1 box 12/01/18 Blood Sugar Diagnostic [Test Strips] 1 each MC ASDIR 30 Days #30 strip 12/01/18 Duloxetine HCl [Cymbalta] 30 mg PO BID 12/01/18 Lancets 1 each MC DAILY 30 Days #1 box 12/01/18 Metformin HCl [Glucophage] 500 mg PO DAILY #30 tablet 12/01/18
== END 2019-02-06 14:00 | disposition home or self-care (01) | DRG 638 ==
LOC: JER 09:38 → JERBED 13:32 → J4S 20:18
PROVIDERS: ADMIT Internal Medicine; ATTEND Internal Medicine
DX: E11.65 Type 2 diabetes mellitus with hyperglycemia (principal); F50.00 Anorexia nervosa, unspecified; K92.1 Melena; R55 Syncope and collapse; I25.10 Atherosclerotic heart disease of native coronary artery without angina pectoris; I25.2 Old myocardial infarction; E78.5 Hyperlipidemia, unspecified; F41.9 Anxiety disorder, unspecified; F32.9 Major depressive disorder, single episode, unspecified; J44.9 Chronic obstructive pulmonary disease, unspecified; I11.0 Hypertensive heart disease with heart failure; I50.9 Heart failure, unspecified; Z95.810 Presence of automatic (implantable) cardiac defibrillator; Z95.5 Presence of coronary angioplasty implant and graft; Z79.84 Long term (current) use of oral hypoglycemic drugs; R10.9 Unspecified abdominal pain
CPT/HCPCS: 36415; 70450-TC; 71046-TC-FY; 74177-TC; 80048; 80053; 81003; 82009; 82272; 82550; 82962; 83735; 84100; 84484; 85025; 85610; 85730; 87077; 87086; 87186; 93005; 93010; 93880-TC; 97116-GP; 97161-GP; 99283-25; J0131; J7030

== ENCOUNTER 2019-03-16 10:57 | Observation (INO) | payer OTHER ==
[2019-03-16] MEDS ORDERED: ONDANSETRON 4 MG/2 ML VIAL IVPUSH ONE (12:27)
[2019-03-16] MEDS ORDERED: FAMOTIDINE 20 MG/50 ML IVPB 20 MG/50 ML MG IVPB ONE ×2 (12:27→12:57)
[2019-03-16] MEDS ORDERED: SODIUM CHLORIDE 0.9% 1000 ML INFUS.BAG IV ONE ×2 (12:27→15:35)
[2019-03-16] MEDS ORDERED: ACETAMINOPHEN 1000 MG/100 ML VIAL (NON FORMULARY) IVPB ONE (12:27)
[2019-03-16] MEDS ORDERED: ONDANSETRON 4 MG/2 ML VIAL ONE (12:57)
[2019-03-16] MEDS ORDERED: ACETAMINOPHEN INJECTION 100 ML IVPB ONE (12:57)
[2019-03-16 13:32] LABS: BASO % 0.4 % (0-2.0); EOS % 3.5 % (0-4.5); HEMATOCRIT 35.4 % (32.4-45.2); HEMOGLOBIN 12.1 GM/dL (10.7-15.3); LYMPH % 31.3 % (8-40); MCH 30.9 pg (25.7-33.7); MCHC 34.2 g/dl (32.0-36.0); MEAN CELL VOLUME 90.3 fl (80-96); MEAN PLT VOLUME 7.7 fl (7.5-11.1); MONO % 6.8 % (3.8-10.2); PLATELET COUNT 189 K/MM3 (134-434); RBC 3.92 M/mm3 (3.60-5.2); RDW 12.9 % (11.6-15.6); WHITE BLOOD COUNT 6.5 K/mm3 (4.0-10.0)
--- NOTE | 2019-03-16 13:51 | EKG ---
Test Reason : Blood Pressure : / mmHG Vent. Rate : 057 BPM Atrial Rate : 057 BPM P-R Int : 170 ms QRS Dur : 070 ms QT Int : 428 ms P-R-T Axes : 041 016 086 degrees QTc Int : 416 ms POOR DATA QUALITY, INTERPRETATION MAY BE ADVERSELY AFFECTED SINUS BRADYCARDIA LOW VOLTAGE QRS CANNOT RULE OUT ANTEROSEPTAL INFARCT (CITED ON OR BEFORE 16-OCT-2014) ABNORMAL ECG WHEN COMPARED WITH ECG OF 03-FEB-2019 09:43, NO SIGNIFICANT CHANGE WAS FOUND Confirmed by HANNAH RICHARDS MD ([id number]) on 03/16/2019 1:50:51 PM Referred By: Confirmed By:HANNAH RICHARDS MD
--- NOTE | 2019-03-16 13:56 | PDOC ---
Attending Attestation - Resident Resident Name: Santos Mccurdy - ED Attending Attestation I have performed the following: I have examined & evaluated the patient, The case was reviewed & discussed with the resident, I agree w/resident's findings & plan, Exceptions are as noted - HPI HPI: 54 yo F history CAD, [place], diverticulosis, HTN, HL, anxiety, depression, anorexia presents with abd pain, N/V/D for the past 9 days. She has had multiple episodes of vomiting and diarrhea each day, now with diffuse weakness, abdominal cramping. No prior similar symptoms. No known sick contacts. No recent inpatient hospitalizations, no recent abx. She has history of 1 , no other surgeries. - Physicial Exam PE: GENERAL: Awake, alert, and fully oriented. Appears ill but nontoxic. HEAD: No signs of trauma EYES: PERRLA, EOMI, sclera anicteric, conjunctiva clear ENT: Auricles normal inspection, hearing grossly normal, nares patent, oropharynx clear without exudates. Dry mucosa NECK: Normal ROM, supple, no lymphadenopathy, JVD, or masses LUNGS: Breath sounds equal, clear to auscultation bilaterally. No wheezes, and no crackles HEART: Regular rate and rhythm, normal S1 and S2, no murmurs, rubs or gallops ABDOMEN: Soft, diffusely tender (worse in BUQ), +hyperactive bowel sounds. + Guarding diffusely, no rebound. No masses EXTREMITIES: Normal range of motion, no edema. No clubbing or cyanosis. No cords, erythema, or tenderness NEUROLOGICAL: Cranial nerves II through XII grossly intact. Normal speech. Motor and sensation intact SKIN: Warm, dry, normal turgor, no rashes or lesions noted. - Medical Decision Making Pt with prior history diverticulosis, presenting with diffuse abd pain , diffuse tenderness. Will obtain CT a/p to r/o infection, SBO.
[2019-03-16 14:06] LABS: ALBUMIN 3.8 g/dl (3.4-5.0); BILIRUBIN,TOTAL 0.4 mg/dL (0.2-1); BLOOD UREA NITROGEN 8.2 mg/dL (7-18); CALCIUM 8.8 mg/dL (8.5-10.1); CREATININE 0.7 mg/dL (0.55-1.3); TOT PROT 6.7 g/dl (6.4-8.2)
[2019-03-16 14:07] LABS: INR 1.18 (0.83-1.09); PROTHROMBIN TIME (PATIENT) 13.9 SEC (9.7-13.0)
--- NOTE | 2019-03-16 14:10 | PDOC ---
History of Present Illness - General Chief Complaint: Weakness Stated Complaint: WEAKNESS Time Seen by Provider: 03/16/19 12:26 History Source: Patient Exam Limitations: No Limitations - History of Present Illness Initial Comments: 03/16/19 14:10 54F with a PMH of CAD, [place] (2010), diverticulosis (colonoscopy 2016), hypertension, hyperlipidemia, anxiety, depression and anorexia nervosa who presents to the ER with complaints of abdominal pain, nausea, vomiting, and diarrhea. Pt describes 9 days of nausea and NBNB vomiting, watery diarrhea 3-4 x per day, and diffuse, crampy abdominal pain without exacerbating or alleviating factors. The patient states that the pain is getting much worse and yesterday and today, she noted blood in her BM's. She denies hx of abdominal surgery. Past History - Past Medical History Allergies/Adverse Reactions: Allergies Allergy/AdvReac Type Severity Reaction Status Date / Time No Known Allergies Allergy Verified 03/16/19 11:21 Home Medications: Ambulatory Orders Alprazolam [Xanax] 1 mg PO BID 04/15/16 Aspirin [ASA -] 81 mg PO DAILY 04/15/16 Atorvastatin Ca [Lipitor] 40 mg PO HS 04/15/16 Gabapentin 600 mg PO TID 04/15/16 Topiramate 50 mg PO BID 04/15/16 Oxycodone HCl/Acetaminophen [Percocet 5-325 mg Tablet] 1 tab PO Q6H 05/21/16 Buspirone HCl 15 mg PO BID 11/07/17 Tizanidine HCl 2 mg PO BID 11/07/17 Carvedilol [Coreg -] 3.125 mg PO BID #60 tablet 11/09/17 Alcohol Antiseptic Pads [Alcohol Prep Pads] 1 each TP DAILY #1 box 12/01/18 Blood Sugar Diagnostic [Test Strips] 1 each MC ASDIR 30 Days #30 strip 12/01/18 Duloxetine HCl [Cymbalta] 30 mg PO BID 12/01/18 Lancets 1 each MC DAILY 30 Days #1 box 12/01/18 Metformin HCl [Glucophage] 500 mg PO DAILY #30 tablet 12/01/18 Anemia: No Asthma: No Cancer: No Cardiac Disorders: Yes (CAD, [place], Ischemic CMP) CVA: No COPD: Yes CHF: Yes (CHF, Pulm Edema) DVT: No Dementia: No Diabetes: Yes (NIDDM) GI Disorders: Yes (Anorexia Nervosa, Constipation(BM weekly), Diverticulosis, Hemorrhoids,) Disorders: Yes (kidney stents, kidney stones, NEYMAR) HTN: Yes Hypercholesterolemia: Yes Liver Disease: No Psychiatric Problems: Yes (anxiety, anorexia, DEPRESSION.) Seizures: No Thyroid Disease: No - Surgical History Abdominal Surgery: Yes (ECTOPIC) Appendectomy: No Cardiac Surgery: Yes (cardiac cath, stent, ppm/aicd) Cholecystectomy: No Lung Surgery: No Neurologic Surgery: No Orthopedic Surgery: No - Family Disease History Family Disease History: Heart Disease: Father - Immunization History Td Vaccination: Yes TDAP Vaccination: Yes Immunization Up to Date: No (no flu vaccine) - Suicide/Smoking/Psychosocial Hx Smoking Status: No Smoking History: Never smoked Years of Tobacco Use: 10 Have you smoked in the past 12 months: No Number of Cigarettes Smoked Daily: 10 If you are a former smoker, when did you quit?: 2015 Cigars Per Day: 0 Information on smoking cessation initiated: No 'Breaking Loose' booklet given: 12/15/14 Hx Alcohol Use: No Drug/Substance Use Hx: No Substance Use Type: Marijuana Hx Substance Use Treatment: No Review of Systems - Review of Systems Able to Perform ROS?: Yes Comments:: 03/16/19 14:21 GENERAL/CONSTITUTIONAL: No fever or chills. No weakness. HEAD, EYES, EARS, NOSE AND THROAT: No change in vision. No ear pain or discharge. No sore throat. CARDIOVASCULAR: No chest pain, palpitations, or lightheadedness. RESPIRATORY: No cough, wheezing, shortness of breath, or hemoptysis. GASTROINTESTINAL: + for abdominal pain, nausea, vomiting, and diarrhea. GENITOURINARY: No dysuria, frequency, hematuria, or change in urination. MUSCULOSKELETAL: No joint or muscle swelling or pain. No neck or back pain. SKIN: No rash or lesions. NEUROLOGIC: No headache, numbness, tingling, focal weakness, loss of consciousness, or change in strength/sensation. Is the patient limited Tamazight proficient: No *Physical Exam - Vital Signs Last Vital Signs Temp Pulse Resp BP Pulse Ox 97.7 F 65 16 112/62 100 03/16/19 11:00 03/16/19 11:00 03/16/19 11:00 03/16/19 11:03/16/19 11:00 - Physical Exam Comments: 03/16/19 14:22 GENERAL: Well developed, well nourished. Awake and alert. No acute distress. HEENT: Normocephalic, atraumatic. Hearing grossly normal. Moist mucous membranes. PERRLA, EOMI. No conjunctival pallor. Sclera are non-icteric. NECK: Supple. Full ROM. No JVD. CARDIOVASCULAR: Regular rate and rhythm. No murmurs, rubs, or gallops. PULMONARY: No evidence of respiratory distress. Lungs clear to auscultation bilaterally. No wheezing, rales or rhonchi. ABDOMINAL: Soft. TTP in RUQ and epigastrium. + Carr's. Non-distended. No rebound or guarding. GENITOURINARY: R CVA tenderness. MUSCULOSKELETAL: Normal range of motion at all joints. No bony deformities or tenderness. EXTREMITIES: No cyanosis. No clubbing. No edema. No calf tenderness or swelling. SKIN: Warm and dry. Normal capillary refill. No rashes. No jaundice. NEUROLOGICAL: Alert, awake, appropriate. Cranial nerves 2-12 grossly intact. Normal speech. Gait is normal without ataxia. PSYCHIATRIC: Cooperative. Good eye contact. Appropriate mood and affect. ED Treatment Course - LABORATORY CBC & Chemistry Diagram: 03/16/19 13:00 03/16/19 13:00 - RADIOLOGY Radiology Studies Ordered: Category Date Time Status ABDOMEN & PELVIS CT W/O CONTR [CT] Stat CT Scan 03/16/19 13:27 Ordered - Medications Given in the ED: ED Medications Discontinued Medications Generic Name Dose Route Start Last Admin Trade Name Yani PRN Reason Stop Dose Admin Acetaminophen 1,000 mg 03/16/19 12:27 03/16/19 13:05 Ofirmev Injection - IVPB 03/16/19 12:28 1,000 mg ONCE ONE Administration Famotidine/Sodium Chloride 20 mg in 50 mls @ 100 mls/hr 03/16/19 12:27 13:40 Pepcid 20 Mg Premixed Ivpb - IVPB 03/16/19 12:56 100 mls/hr ONCE ONE Administration Ondansetron HCl 4 mg 03/16/19 12:27 03/16/19 13:05 Zofran Injection IVPUSH 03/16/19 12:28 4 mg ONCE ONE Administration Sodium Chloride 1,000 ml 03/16/19 12:27 03/16/19 13:05 Normal Saline - IV 03/16/19 12:28 1,000 ml ONCE ONE Administration Medical Decision Making - Medical Decision Making 03/16/19 14:23 54F with MMP who presents with 9 days of diarrhea, nausea, vomiting, and abd pain. POCUS of RUQ and R kidney unremarkable except for mild sludge around GB. Pending CTAP. Giving pepcid, tylenol, and fluids and will reassess. Pt stated she didn't take her AM anxiety meds. Will give clonazepam 1mg. 03/16/19 15:36 CBC, CMP, lipase, troponin, and CTAP negative. Pt continuing to complain of abdominal pain and having epigastric pain w/ TTP w/o rebound or guarding. Will give another L fluids and d/w Dr. Barry, pt's PCP. 03/16/19 15:50 Case d/w Dr Barry ([phone]) who agrees with admission to evaluate for diarrhea and continued abdominal pain. 03/16/19 16:24 Microblogged for admission. 03/16/19 17:[address] Avelar for admission. 03/16/19 17:39 D/w inpatient team and will admit to med surg obs. *DC/Admit/Observation/Transfer Diagnosis at time of Disposition: Abdominal pain Qualifiers: Abdominal location: right upper quadrant Qualified Code(s): R10.11 - Right upper quadrant pain - Discharge Dispostion Condition at time of disposition: Guarded Decision to Admit order: Yes - Referrals - Patient Instructions - Post Discharge Activity
[2019-03-16] MEDS ORDERED: clonazePAM 0.5 MG TABLET PO ONE (14:29)
[2019-03-16] MEDS ORDERED: clonazePAM 0.5 MG TABLET ONE (14:47)
[2019-03-16 14:59] LABS: PH,URINE 5.5 (5.0-8.0); URINE APPEARANCE Clear; URINE BILIRUBIN Negative (NEGATIVE); URINE COLOR Yellow; URINE GLUCOSE (UA) Negative (NEGATIVE); URINE KETONE Negative (NEGATIVE); URINE LEUK ESTERASE Negative (NEGATIVE); URINE NITRITE Negative (NEGATIVE); URINE PROTEIN Negative (NEGATIVE); URINE UROBILINOGEN 0.2 mg/dL (0.2-1.0)
[2019-03-16] MEDS ORDERED: morphine CARPU-JECT 4 MG/1 ML DISP.SYRIN IVPUSH ONE (15:50)
[2019-03-16] MEDS ORDERED: morphine SULFATE 4 MG/ML VIAL ONE (16:06)
--- NOTE | 2019-03-16 17:27 | HP ---
CHIEF COMPLAINT: Diarrhea, Vomiting PCP: Dr. Barry HISTORY OF PRESENT ILLNESS: 54 y/o F with extensive PMHx of CAD (s/p PCI, Sten and ICD placement), CHF (EF 35% on Echo in 11/25), HTN, HLD, COPD (Not on home O2, on CPAP), ISELA, NIDDM, Renal insufficiency, Body dismorphic disorder, Anxiety presents with Vomiting and Diarrhea. Patient was recently admitted to [facility] (02/03-02/06) for a syncopal episode. Since d/c, she feels she has had diarrhea; initially she was having 3- 4 BM's daily however over the last 9 days, she has had 6-7 BMs daily. Patient mentions she normally has constipation, so these episodes are all new to her. The BMs were accompanied by crampy abdominal pain that waxes and wane, at worst 04/19. Denies any travel, recent abx use or sick contacts. She describes the stools as loose, watery black stools that float. Additionally makes mentions that about 6 days ago, she had a fever of 102.6 that resolved with tylenol. Additionally makes mention of a 2 day episode of gross red blood in her toilet bowl that self resolved. Last night, her pain became untolerable prompting her to visit the ED. Lastly, patient mentions that she has had 9 days of vomiting accompanying this; Brown vomit with atleast 2 episodes occurring daily. No associated blood. Denies any chills, chest pain, SOB, constipation, dysuria. ER course was notable for: (1) Case discussed with PCP; Refer to ED documentation (2) CT A/P (3) Morphine/ofirmev/Zofran/Pepcid/NS Bolus Recent Travel: Denies PAST MEDICAL HISTORY: As Above PAST SURGICAL HISTORY: Social History: Smoking: Former smoke, quit in 2014 Alcohol: Denies Drugs: Family History: Allergies No Known Allergies Allergy (Verified 03/16/19 11:21) HOME MEDICATIONS: Home Medications Medication Instructions Recorded Alprazolam [Xanax] 1 mg PO BID 04/15/16 Aspirin [ASA -] 81 mg PO DAILY 04/15/16 Atorvastatin Ca [Lipitor] 40 mg PO HS 04/15/16 Gabapentin 600 mg PO TID 04/15/16 Topiramate 50 mg PO BID 04/15/16 Oxycodone HCl/Acetaminophen 1 tab PO Q6H 05/21/16 [Percocet 5-325 mg Tablet] Buspirone HCl 15 mg PO BID 11/07/17 Tizanidine HCl 2 mg PO BID 11/07/17 Carvedilol [Coreg -] 3.125 mg PO BID #60 tablet 11/09/17 Alcohol Antiseptic Pads [Alcohol 1 each TP DAILY #1 box 12/01/18 Prep Pads] Blood Sugar Diagnostic [Test 1 each MC ASDIR 30 Days #30 strip 12/01/18 Strips] Duloxetine HCl [Cymbalta] 30 mg PO BID 12/01/18 Lancets 1 each MC DAILY 30 Days #1 box 12/01/18 Metformin HCl [Glucophage] 500 mg PO DAILY #30 tablet 12/01/18 REVIEW OF SYSTEMS As per HPI PHYSICAL EXAMINATION Vital Signs - 24 hr 03/16/19 11:00 Temperature 97.7 F Pulse Rate 65 Respiratory 16 Rate Blood Pressure 112/62 O2 Sat by Pulse 100 Oximetry (%) GENERAL: A&Ox3, NAD HEAD: NCAT EYES: PERRL, EOMI EARS, NOSE, THROAT: Oropharynx clear without exudates. Moist mucous membranes. NECK: No JVD LUNGS: CTAB. No wheezes, no crackles HEART: RRR S1 S2 ABDOMEN: Soft, RUQ LUQ and midepigastrum tender to light palpation, not distended, + bowel sounds, no guarding, no rebound MUSCULOSKELETAL: No CVA tenderness. EXTREMITIES: No peripheral edema. NEUROLOGICAL: Cranial nerves II-XII intact. Normal speech. SKIN: Warm, dry RECTAL: No stool in the vault, Good sphincter tone, No external hemorrhoids visualized, No internal hemorrhoids felt, No active bleeding noted, No blood on tip of the glove Laboratory Results - last 24 hr 03/16/19 03/16/19 03/16/19 13:00 13:00 13:00 WBC 6.5 RBC 3.92 Hgb 12.1 Hct 35.4 MCV 90.3 MCH 30.9 MCHC 34.2 RDW 12.9 D Plt Count 189 MPV 7.7 Absolute Neuts (auto) 3.8 Neutrophils % 58.0 Lymphocytes % 31.3 Monocytes % 6.8 Eosinophils % 3.5 D Basophils % 0.4 Nucleated RBC % 0 PT with INR INR Sodium 145 Potassium 4.0 Chloride 116 H Carbon Dioxide 24 Anion Gap 6 L BUN 8.2 Creatinine 0.7 Est GFR (CKD-EPI)AfAm 113.05 Est GFR (CKD-EPI)NonAf 97.54 Random Glucose 78 Calcium 8.8 Total Bilirubin 0.4 AST 10 L ALT 11 L Alkaline Phosphatase 80 Creatine Kinase 39 Troponin I < 0.02 Total Protein 6.7 Albumin 3.8 Lipase 105 Urine Color Urine Appearance Urine pH Ur Specific Ethel Urine Protein Urine Glucose (UA) Urine Ketones Urine Blood Urine Nitrite Urine Bilirubin Urine Urobilinogen Ur Leukocyte Esterase 03/16/19 03/16/19 13:00 14:39 WBC RBC Hgb Hct MCV MCH MCHC RDW Plt Count MPV Absolute Neuts (auto) Neutrophils % Lymphocytes % Monocytes % Eosinophils % Basophils % Nucleated RBC % PT with INR 13.90 H INR 1.18 H Sodium Potassium Chloride Carbon Dioxide Anion Gap BUN Creatinine Est GFR (CKD-EPI)AfAm Est GFR (CKD-EPI)NonAf Random Glucose Calcium Total Bilirubin AST ALT Alkaline Phosphatase Creatine Kinase Troponin I Total Protein Albumin Lipase Urine Color Yellow Urine Appearance Clear Urine pH 5.5 D Ur Specific Ethel 1.020 Urine Protein Negative Urine Glucose (UA) Negative Urine Ketones Negative Urine Blood Negative Urine Nitrite Negative Urine Bilirubin Negative Urine Urobilinogen 0.2 Ur Leukocyte Esterase Negative Active Medications Acetaminophen (Tylenol -) 650 mg PO Q4H PRN PRN Reason: PAIN OR FEVER Heparin Sodium (Porcine) (Heparin -) 5,000 unit SQ Q8H-IV GABI Sodium Chloride (Normal Saline -) 1,000 mls @ 50 mls/hr IV ASDIR GABI Stop: 03/17/19 17:41 Ibuprofen (Motrin -) 600 mg PO Q6H PRN PRN Reason: FEVER Ondansetron HCl (Zofran Injection) 4 mg IVPUSH Q6H PRN PRN Reason: NAUSEA IMAGING: -CT A/P without contrast: CT imaging completed with no free air or free fluid, no signs of bowel obstruction or hernia. No CT evidence of appendicitis, no CT evidence of colitis or diverticulitis. No hydronephrosis or stones in the kidneys. No evidence of pancreatitis, normal visualization of stomach including region duodenal bulb and mesentery with no inflammatory changes, no fluid collections. No acute changes observed. -EKG: Sinus Bradycardia, Low voltage QRS, VR 57, QTc 416 ASSESSMENT/PLAN: 54 y/o F with extensive PMHx of CAD (s/p PCI, Sten and ICD placement), CHF (EF 35% on Echo in 11/25), HTN, HLD, COPD (Not on home O2, on CPAP), ISELA, NIDDM, Renal insufficiency, Body dismorphic disorder, Anxiety presents with Vomiting and Diarrhea. #Intractable Abdominal Pain accompanied by Diarrhea and vomiting -Unclear Etiology; Will consider infectious source, possibly medication induced -AFebrile, Hemodynamcially stable, GITA unremarkable, without leukocytosis, No electrolyte deficiency, FOBT Negative, Imaging unrevealing; however Abdomen TTP -Check UTox, Stool Studies, Stool O&P, Fecal fat, CDiff (febrile at home, recent hospitalization) -Continue NPO for bowel rest -IV hydration via NS @ 50 mls/hr -Analgesia via Acetaminophen, Ibuprofen -Antiemesis via Ondansetron #CAD -Resume home meds #CHF -Previous echo reviewed -Continue gentle hydration #NIDDM -BGMs ISS ACHS #Hx of Anxeity and Body dysmorphic disorder -Continue home dose psych meds #FEN -NS @ 50 mls/hr -Replete lytes PRN -NPO #PPx -DVT: Heparin Dispo: Med-Surg Obs Visit type - Emergency Visit Emergency Visit: Yes ED Registration Date: 03/16/19 Care time: The patient presented to the Emergency Department on the above date and was hospitalized for further evaluation of their emergent condition. - New Patient This patient is new to me today: Yes Date on this admission: 03/19/19 - Critical Care Critical Care patient: No ATTENDING PHYSICIAN STATEMENT I saw and evaluated the patient. I reviewed the resident's note and discussed the case with the resident. I agree with the resident's findings and plan as documented. SUBJECTIVE: OBJECTIVE: ASSESSMENT AND PLAN:
[2019-03-16] MEDS ORDERED: ACETAMINOPHEN 325 MG TABLET (FP) PO PRN (17:37)
[2019-03-16] MEDS ORDERED: ONDANSETRON 4 MG/2 ML VIAL IVPUSH PRN (17:37)
[2019-03-16] MEDS ORDERED: IBUPROFEN 600 MG TABLET (FP) PO PRN (17:37)
[2019-03-16] MEDS ORDERED: SODIUM CHLORIDE 1,000 ML IV SCH (17:45)
--- NOTE | 2019-03-16 17:54 | PN ---
Teaching Attending Note Name of Resident: Anna Avelar ATTENDING PHYSICIAN STATEMENT I saw and evaluated the patient. I reviewed the resident's note and discussed the case with the resident. I agree with the resident's findings and plan as documented. SUBJECTIVE:54 y/o F with extensive PMHx of CAD (s/p PCI, Sten and ICD placement) , CHF (EF 35% on Echo in 11/25), HTN, HLD, COPD (Not on home O2, on CPAP), ISELA, NIDDM, Renal insufficiency, Body dismorphic disorder, Anxiety presents with Vomiting and Diarrhea. having 6-8 BM/day that are dark and float. assoc with diffuse abdominal pain. admits to stool incontinence. notes that it is related to food and noted she has had none since not eating anything for over 24H. had 1 reported fever last week of 102.6. but none since. had similar episode last year where EGD/colonoscopy was done which she reports as negative and symptoms resolved on its own. denies any dietary changes a that time.denies CP, fever, chills, food intolerances, diet changes pain that radiates up, frequent belching or recent abx use. her metformin was reduced a few months ago but no other medication changes. OBJECTIVE: Last Vital Signs Temp Pulse Resp BP Pulse Ox 97.7 F 65 16 112/62 100 03/16/19 11:00 03/16/19 11:00 03/16/19 11:00 03/16/19 11:03/16/19 11:00 General NAd CV S1 S2 RRR no murmur/rub/gallop Lungs CTA B/L no wheezing/rales/rhonchi abdomen soft diffusely tender no rebound or guarding Extremities no pedal edema GITA done by resident good rectal tone. ASSESSMENT AND PLAN: 54 y/o F with extensive PMHx of CAD (s/p PCI, Sten and ICD placement), CHF (EF 35% on Echo in 11/25), HTN, HLD, COPD (Not on home O2, on CPAP), ISELA, NIDDM, Renal insufficiency, Body dismorphic disorder, Anxiety presents with Vomiting and Diarrhea. 1. Intractable abdominal pain- assoc with vomiting and diarrhea. concern for cdiff given fever at home and recent hospitalization. could liekly be food intolerance as reports floating stools and has improved over past 24H without eating. CT abdomen was normal but was done without contrast. will hold on repeat imaging at this time. will cont NPO, IVF, pain and nausea control. check Utox, stool studies fat content, O&P, Cx and cdiff. 2. CAD s/p stent- home medications 3. CHF- no signs of volume oveloard or dehydration. cont home medications 4. HTN- controlled 5. COPD- no signs of acute exacerbation 6. DM- recent decrease in metformin. hold for now. iss and bgm 7. Anxiety/body dysmorphia- would cont pysch meds in light that these can also cause these symptoms as no recent changes and would not want to abruptly stop them 8. DVT ppx- lovenox
[2019-03-16] MEDS ORDERED: HEPARIN NA (PORCINE) 5,000 UNITS/ML 1ML VIAL ONE (18:46)
[2019-03-16] MEDS: HEPARIN NA (PORCINE) 5,000 UNITS/ML 1ML VIAL SQ SCH (18:56)
[2019-03-16] MEDS ORDERED: DULoxetine HCL 30 MG CAPSULE.DR PO ONE (22:00)
[2019-03-16] MEDS ORDERED: TIZANIDINE HCL 2 MG TABLET PO ONE (22:00)
[2019-03-16] MEDS ORDERED: busPIRone HCL 5 MG TABLET PO ONE (22:00)
[2019-03-16] MEDS ORDERED: CARVEDILOL 3.125 MG TABLET (FP) PO ONE (22:00)
[2019-03-16] MEDS ORDERED: TOPIRAMATE 25 MG TABLET (FP) PO ONE (22:00)
[2019-03-16] MEDS ORDERED: ALPRAZolam 2 MG TABLET PO ONE (22:00)
[2019-03-17] MEDS: FAMOTIDINE 20 MG/50 ML IVPB 20 MG/50 ML MG IVPB SCH ×2 (00:16→10:49)
[2019-03-17] MEDS: HEPARIN NA (PORCINE) 5,000 UNITS/ML 1ML VIAL SQ SCH ×2 (01:17→10:49)
[2019-03-17 02:04] VITALS: BMI 23.5
[2019-03-17] MEDS ORDERED: ASPIRIN 81 MG CHEWABLE TABLETS PO SCH (13:00)
[2019-03-17] MEDS ORDERED: CARVEDILOL 3.125 MG TABLET (FP) PO SCH (13:00)
[2019-03-17] MEDS ORDERED: DULoxetine HCL 30 MG CAPSULE.DR PO SCH (13:00)
[2019-03-17] MEDS ORDERED: ALPRAZolam 2 MG TABLET PO SCH (13:00)
[2019-03-17] MEDS ORDERED: TOPIRAMATE 25 MG TABLET (FP) PO SCH (13:15)
--- NOTE | 2019-03-17 13:58 | DS ---
Physical Exam: SUBJECTIVE: Patient seen and examined. c/o abomdinal pain but begging to eat. denies Cp, SOB, fever, chills, N /V/C/D. no diarrhea or BM while in the hospital OBJECTIVE: Vital Signs Period Temp Pulse Resp BP Sys/Riley Pulse Ox Last 24 Hr 97.2 F-98.6 F 49-53 18-30 100-116/64-73 95-97 PHYSICAL EXAM GENERAL: The patient is awake, alert, and fully oriented, in no acute distress. HEAD: Normal with no signs of trauma. EYES: PERRL, extraocular movements intact, sclera anicteric, conjunctiva clear. ENT: Ears normal, nares patent, oropharynx clear without exudates, moist mucous membranes. NECK: Trachea midline, full range of motion, supple. LUNGS: Breath sounds equal, clear to auscultation bilaterally, no wheezes, no crackles, no accessory muscle use. HEART: Regular rate and rhythm, S1, S2 without murmur, rub or gallop. ABDOMEN: Soft, diffusely tender to barely even touching the abdomen she jumps out of bed, nondistended, normoactive bowel sounds, no guarding, no rebound, no hepatosplenomegaly, no masses. EXTREMITIES: 2+ pulses, warm, well-perfused, no edema. NEUROLOGICAL: Cranial nerves II through XII grossly intact. Normal speech, gait not observed. PSYCH: Normal mood, normal affect. SKIN: Warm, dry, normal turgor, no rashes or lesions noted. LABS Laboratory Results - last 24 hr 03/16/19 03/16/19 03/16/19 13:00 13:00 13:00 WBC 6.5 RBC 3.92 Hgb 12.1 Hct 35.4 MCV 90.3 MCH 30.9 MCHC 34.2 RDW 12.9 D Plt Count 189 MPV 7.7 Absolute Neuts (auto) 3.8 Neutrophils % 58.0 Lymphocytes % 31.3 Monocytes % 6.8 Eosinophils % 3.5 D Basophils % 0.4 Nucleated RBC % 0 PT with INR INR Sodium 145 Potassium 4.0 Chloride 116 H Carbon Dioxide 24 Anion Gap 6 L BUN 8.2 Creatinine 0.7 Est GFR (CKD-EPI)AfAm 113.05 Est GFR (CKD-EPI)NonAf 97.54 Random Glucose 78 Calcium 8.8 Total Bilirubin 0.4 AST 10 L ALT 11 L Alkaline Phosphatase 80 Creatine Kinase 39 Troponin I < 0.02 Total Protein 6.7 Albumin 3.8 Lipase 105 Urine Color Urine Appearance Urine pH Ur Specific [place] Urine Protein Urine Glucose (UA) Urine Ketones Urine Blood Urine Nitrite Urine Bilirubin Urine Urobilinogen Ur Leukocyte Esterase Stool Occult Blood 03/16/19 03/16/19 03/16/19 13:00 14:39 17:13 WBC RBC Hgb Hct MCV MCH MCHC RDW Plt Count MPV Absolute Neuts (auto) Neutrophils % Lymphocytes % Monocytes % Eosinophils % Basophils % Nucleated RBC % PT with INR 13.90 H INR 1.18 H Sodium Potassium Chloride Carbon Dioxide Anion Gap BUN Creatinine Est GFR (CKD-EPI)AfAm Est GFR (CKD-EPI)NonAf Random Glucose Calcium Total Bilirubin AST ALT Alkaline Phosphatase Creatine Kinase Troponin I Total Protein Albumin Lipase Urine Color Yellow Urine Appearance Clear Urine pH 5.5 D Ur Specific [place] 1.020 Urine Protein Negative Urine Glucose (UA) Negative Urine Ketones Negative Urine Blood Negative Urine Nitrite Negative Urine Bilirubin Negative Urine Urobilinogen 0.2 Ur Leukocyte Esterase Negative Stool Occult Blood Negative HOSPITAL COURSE: Date of Admission:03/16/19 Date of Discharge: 03/17/19 Admitting diagnosis: Non specific abdominal pain Pre hospital course 54 y/o F with extensive PMHx of CAD (s/p PCI, Sten and ICD placement), CHF (EF 35% on Echo in 11/25), HTN, HLD, COPD (Not on home O2, on CPAP), ISELA, NIDDM, Renal insufficiency, Body dismorphic disorder, Anxiety presents with Vomiting and Diarrhea. Patient was recently admitted to [facility] (02/03-02/06) for a syncopal episode. Since d/c, she feels she has had diarrhea; initially she was having 3- 4 BM's daily however over the last 9 days, she has had 6-7 BMs daily. Patient mentions she normally has constipation, so these episodes are all new to her. The BMs were accompanied by crampy abdominal pain that waxes and wane, at worst 10/10. Denies any travel, recent abx use or sick contacts. She describes the stools as loose, watery black stools that float. Additionally makes mentions that about 6 days ago, she had a fever of 102.6 that resolved with tylenol. Additionally makes mention of a 2 day episode of gross red blood in her toilet bowl that self resolved. Last night, her pain became untolerable prompting her to visit the ED. Subsequent hospital course observed on medicine. ct of abdomen and labs were normal. trialed on diet and tolerated. no more diarrhea. abdominal pain was out of proportion and would jump off the bed before i barely examined the patient. may have some psych component. d/c home wiht lactose free diet trial Minutes to complete discharge: 40 Discharge Summary Reason For Visit: ABDOMINAL PAIN Current Active Problems Abdominal pain (Acute) Condition: Guarded - Instructions Diet, Activity, Other Instructions: You came to the hospital because of abdominal pain and diarrhea. All your imaging and labs were normal and your diarrhea resolved. Continue with a trial of a lactose free diet. If you continue to have abdominal pain discuss with your primary care doctor about seeing a critical care nurse practitioner, you may benefit from further testing Resume your home medications Return to the ER if you develop fever (temp >101) or chest pain Referrals: Sandra Barry MD [Non Staff, Medical] - Disposition: HOME - Home Medications Comprehensive Discharge Medication List: Ambulatory Orders Alprazolam [Xanax] 1 mg PO BID 04/15/16 Aspirin [ASA -] 81 mg PO DAILY 04/15/16 Atorvastatin Ca [Lipitor] 40 mg PO HS 04/15/16 Gabapentin 600 mg PO QID 04/15/16 Topiramate 50 mg PO BID 04/15/16 Oxycodone HCl/Acetaminophen [Percocet 5-325 mg Tablet] 1 tab PO Q12H PRN Buspirone HCl 7.5 mg PO TID 11/07/17 Tizanidine HCl 2 mg PO BID 11/07/17 Carvedilol [Coreg -] 3.125 mg PO BID #60 tablet 11/09/17 Duloxetine HCl [Cymbalta] 30 mg PO BID 12/01/18 Metformin HCl [Glucophage] 500 mg PO DAILY #30 tablet 12/01/18 This patient is new to me today: No Emergency Visit: Yes ED Registration Date: 03/16/19 Care time: The patient presented to the Emergency Department on the above date and was hospitalized for further evaluation of their emergent condition. Critical Care patient: No - Discharge Referral Referred to [facility] Med [facility].C.: No
[2019-03-17] MEDS ORDERED: busPIRone HCL 5 MG TABLET PO SCH (14:00)
[2019-03-17] MEDS ORDERED: GABAPENTIN 300 MG CAPSULE (FP) PO SCH (14:00)
[2019-03-17] MEDS ORDERED: oxyCODONE HCL 5 MG TABLET PO PRN (14:53)
[2019-03-17 15:09] VITALS: BP 111/72; PULSE 55; TEMP 98.4
[2019-03-17] MEDS ORDERED: ACETAMINOPHEN 325 MG TABLET (FP) PO PRN (15:13)
[2019-03-17] MEDS ORDERED: ATORVASTATIN CA 40 MG TABLET (FP) PO SCH (22:00)
[2019-03-17] MEDS ORDERED: TIZANIDINE HCL 2 MG TABLET PO SCH (22:00)
== END 2019-03-17 15:35 | disposition home or self-care (01) ==
LOC: JER 10:57 → JERBED 15:54 → J5S 20:47
PROVIDERS: ADMIT Internal Medicine; ATTEND Internal Medicine
PROC: 3E033NZ Introduction of Analgesics, Hypnotics, Sedatives into Peripheral Vein, Percutaneous Approach (ICD-10-PCS; principal; 2019-03-16)
PROC: 3E0337Z Introduction of Electrolytic and Water Balance Substance into Peripheral Vein, Percutaneous Approach (ICD-10-PCS; 2019-03-16)
PROC: 3E033GC Introduction of Other Therapeutic Substance into Peripheral Vein, Percutaneous Approach (ICD-10-PCS; 2019-03-16)
PROC: 3E013GC Introduction of Other Therapeutic Substance into Subcutaneous Tissue, Percutaneous Approach (ICD-10-PCS; 2019-03-16)
DX: R10.11 Right upper quadrant pain (principal); R11.2 Nausea with vomiting, unspecified; R19.7 Diarrhea, unspecified; I11.0 Hypertensive heart disease with heart failure; I50.9 Heart failure, unspecified; I25.10 Atherosclerotic heart disease of native coronary artery without angina pectoris; I25.2 Old myocardial infarction; F41.9 Anxiety disorder, unspecified; F32.9 Major depressive disorder, single episode, unspecified; E78.5 Hyperlipidemia, unspecified; J44.9 Chronic obstructive pulmonary disease, unspecified; G47.33 Obstructive sleep apnea (adult) (pediatric); Z99.89 Dependence on other enabling machines and devices; Z95.5 Presence of coronary angioplasty implant and graft; Z95.810 Presence of automatic (implantable) cardiac defibrillator; Z79.82 Long term (current) use of aspirin; Z79.84 Long term (current) use of oral hypoglycemic drugs; Z87.442 Personal history of urinary calculi; Z87.448 Personal history of other diseases of urinary system
CPT/HCPCS: 36415; 74176-TC; 76705-TC; 76775; 80053; 81003; 82272; 82550; 83690; 84484; 85025; 85610; 87086; 87186; 93005; 93010; 96365; 96372; 96375; 99285-25; G0378; J0131; J1644; J7030

== ENCOUNTER 2019-06-14 07:00 | Inpatient (IN) | payer OTHER ==
--- NOTE | 2019-06-14 07:49 | PDOC ---
History of Present Illness - General Chief Complaint: Chest Pain Stated Complaint: CHEST PAIN,LEG PAIN Time Seen by Provider: 06/14/19 07:46 History Source: Patient Exam Limitations: No Limitations - History of Present Illness Initial Comments: 06/14/19 07:49 Jossie Edouard is a 54F with PMH CAD and CO in 2010 s/p stenting and ICD placement, CHF (EF 35%), HTN, HLD, COPD not on home O2, NIDDM, renal insufficiency body dysmorphic disorder, anxiety presents with chest pain. Has had chest pain for 1 week intermittently, last 3 days has become constant, complains of mid chest pain radiating to L neck and into L shoulder, not present when moving shoulder or arm, describes as deep inside her torso, says is similar to prior CO chest pain, denies SOB or palpitations. Has been weak for the last week, reports not eating anything for about a week, some nausea and one episode of vomiting yesterday. Has epigastric and LLQ abdominal pain, says it feels like her prior diverticulitis in March which was hospitalized for 11 days for. Also has lower back pain and pain down her left leg without N/T , able to move legs freely but unable to stand or walk. Denies headache, dizziness, abdominal pain, urinary symptoms, constipation, diarrhea, fever/chills. Past History - Past Medical History Allergies/Adverse Reactions: Allergies Allergy/AdvReac Type Severity Reaction Status Date / Time No Known Allergies Allergy Verified 06/14/19 07:24 Home Medications: Ambulatory Orders Atorvastatin Ca [Lipitor] 40 mg PO HS 04/15/16 Gabapentin 600 mg PO QID 04/15/16 Topiramate 50 mg PO BID 04/15/16 Buspirone HCl 15 mg PO TID 11/07/17 Tizanidine HCl 2 mg PO TID PRN 11/07/17 Carvedilol [Coreg -] 3.125 mg PO BID #60 tablet 11/09/17 Duloxetine HCl [Cymbalta] 30 mg PO BID 12/01/18 Clonazepam [Klonopin] 1 mg PO BID 06/14/19 Metformin HCl [Glucophage] 1,000 mg PO BID 06/14/19 Pramipexole Di-HCl [Mirapex] 0.25 mg PO BID 06/14/19 Sitagliptin Phosphate [Januvia] 100 mg PO DAILY 06/14/19 Tramadol HCl [Tramadol HCl ER] 200 mg PO DAILY 06/14/19 clonazePAM [Klonopin -] 0.5 mg PO DAILY 06/14/19 Anemia: No Asthma: No Cancer: No Cardiac Disorders: Yes (CAD, CO, Ischemic CMP) CVA: No COPD: No CHF: Yes (CHF, Pulm Edema) DVT: No Dementia: No Diabetes: Yes (NIDDM) GI Disorders: Yes (Anorexia Nervosa, Constipation(BM weekly), Diverticulosis, Hemorrhoids,) Disorders: Yes (kidney stents, kidney stones, NEYMAR) HTN: Yes Hypercholesterolemia: Yes Liver Disease: No Psychiatric Problems: Yes (anxiety, anorexia, DEPRESSION.) Seizures: No Thyroid Disease: No - Surgical History Abdominal Surgery: Yes (ECTOPIC) Appendectomy: No Cardiac Surgery: Yes (cardiac cath, stent, ppm/aicd) Cholecystectomy: No Lung Surgery: No Neurologic Surgery: No Orthopedic Surgery: No - Immunization History Td Vaccination: Yes TDAP Vaccination: Yes Immunization Up to Date: No (no flu vaccine) - Psycho Social/Smoking Cessation Hx Smoking Status: No Smoking History: Never smoked Years of Tobacco Use: 10 Have you smoked in the past 12 months: No Number of Cigarettes Smoked Daily: 10 If you are a former smoker, when did you quit?: 2014 Cigars Per Day: 0 'Breaking Loose' booklet given: 12/15/14 Hx Alcohol Use: No Drug/Substance Use Hx: No Substance Use Type: Marijuana Hx Substance Use Treatment: No Review of Systems - Review of Systems Able to Perform ROS?: Yes Constitutional: Yes: Loss of Appetite, Malaise, Weakness. No: Chills, Fever HEENTM: No: Blurred Vision, Nose Pain, Throat Pain, Dental Problems, Difficulty Swallowing, Mouth Swelling Respiratory: No: Cough, Orthopnea, Shortness of Breath, Wheezing, Hemoptysis Cardiac (ROS): Yes: Chest Pain (radiates up neck into L shoulder, described as internal pain). No: Lightheadedness, Palpitations ABD/GI: Yes: Poor Appetite, Poor Fluid Intake. No: Constipated, Diarrhea, Difficulty Swallowing, Nausea, Vomiting : No: Symptoms Reported Musculoskeletal: Yes: Back Pain (L shoulder blade), Joint Pain (L shoulder), Muscle Pain (L leg), Neck Pain (L neck) Integumentary: No: Symptoms Reported Neurological: Yes: Headache, Weakness, Unsteady Gait (unable to walk). No: Numbness, Tingling, Tremors, Dizziness Endocrine: No: Symptoms Reported Hematologic/Lymphatic: No: Symptoms Reported All Other Systems: Reviewed and Negative *Physical Exam - Vital Signs Last Vital Signs Temp Pulse Resp BP Pulse Ox 97.4 F L 77 14 90/53 L 98 06/14/19 07:24 06/14/19 07:24 06/14/19 07:24 06/14/19 07:24 06/14/19 07:24 - Physical Exam General Appearance: Yes: Appropriately Dressed, Mild Distress, Thin. No: Nourished HEENT: positive: EOMI, MOHAMUD, Normal Voice, Symmetrical. negative: Normal ENT Inspection, Pharynx Normal (xerostomia to mouth and tongue), Scleral Icterus (R) , Scleral Icterus (L), Muffled/Hoarse voice Neck: positive: Tender (L side posterior aspect, no pain elicited with neck motion), Trachea midline, Normal Thyroid, Supple. negative: Carotid bruit, Decreased range of motion, Lymphadenopathy (R), Lymphadenopathy (L) Respiratory/Chest: positive: Lungs Clear, Normal Breath Sounds. negative: Chest Tender, Respiratory Distress, Accessory Muscle Use, Labored Respiration, Crackles, Rales, Rhonchi, Stridor, Wheezing Cardiovascular: positive: Regular Rhythm, Regular Rate. negative: Edema, Murmur Gastrointestinal/Abdominal: positive: Normal Bowel Sounds, Tender (epigatric and LLQ), Flat, Soft. negative: Organomegaly, Pulsatile Mass, Distended, Guarding, Rebound Musculoskeletal: positive: Normal Inspection. negative: CVA Tenderness Extremity: positive: Normal Capillary Refill, Normal Inspection, Normal Range of Motion. negative: Tender Integumentary: positive: Normal Color, Dry, Warm Neurologic: positive: Fully Oriented, Alert, Normal Mood/Affect, Normal Response Heart Score/ECG Review - History History: Highly suspicious - Electrocardiogram EKG: Non specific repolarization disturbance - Age Age: 45-65 - Risk Factors Risk Factors Heart Score: Yes Hx Hypercholesterolemia, Yes Hx Hypertension, No Hx Diabetes, Yes Smoking History Based on the list above the patient has:: >/=3 risk factors or Hx atherosclerotic disease - Troponin Troponin: </= normal limit - Score Heart Score - Total: 6 ED Treatment Course - LABORATORY CBC & Chemistry Diagram: 06/15/19 06:15 06/15/19 06:15 Medical Decision Making - Medical Decision Making 06/14/19 07:49 Jossie Edouard is a 54F with PMH CAD and CO in 2010 s/p stenting and ICD placement, CHF (EF 35%), HTN, HLD, COPD not on home O2, NIDDM, renal insufficiency body dysmorphic disorder, anxiety presents with chest pain. Patient presents very sick-appearing and weak with pain across her chest, abdomen, and left leg. Will evaluate for CO vs. PE vs. dissection vs. AAA vs. PNA. Ddx also includes pancreatitis, diverticulitis, gallbladder pathology. Physical exam reveals no obvious murmur, bruit, or pulsatile mass concerning for aortic pathology, which would link chest pain to abdominal pain. CBC CMP CP UA/UC ECG CXR Mag/Phos Coags Lactate BC VBG 06/14/19 11:15 ECG shows NSR HR 63, QRS 80, QTc 372, no evidence of ischemic changes, nonspecific T wave changes to V3-V5, otherwise consistent with prior ECG. Labs notable for: - CBC WNL - Cr 1.3, baseline 0.7 consistent with NEYMAR - lactate 0.9 - BNP 611 CXR WNL, no evidence of mediastinal widening. Will evaluate for dissection via CTA, also getting CT abdomen with contrast runoff to evaluate for abdominal pathology. 06/14/19 12:56 CTA read as grossly normal, no evidence of dissection or AAA as cause of chest and abdominal pain. Patient BP not improved after IVF, giving second liter NS. Still complaining of chest, shoulder, leg pain. Unclear of etiology, but still neurovascular intact to leg without swelling. Giving 600mg ibuprofen for pain. Will admit for chest pain, NEYMAR, ACS, and HEART score 6 to further evaluate chest pain. 06/14/19 13:[address] Kenji Reed, good to be admitted to tele under Dr. Smith. 06/14/19 15:[address] Kenji Reed, patient going for ECHO at this time, will be downgraded to tele/obs. Discharge - Discharge Information Problems reviewed: Yes Clinical Impression/Diagnosis: NEYMAR (acute kidney injury) Chest pain Qualifiers: Chest pain type: unspecified Qualified Code(s): R07.9 - Chest pain, unspecified Abdominal pain Qualifiers: Abdominal location: epigastric Qualified Code(s): R10.13 - Epigastric pain Back pain Qualifiers: Back pain location: low back pain Chronicity: acute Back pain laterality: unspecified Sciatica presence: without sciatica Qualified Code(s): M54.5 - Low back pain Hypotension Qualifiers: Hypotension type: unspecified hypotension type Qualified Code(s): I95.9 - Hypotension, unspecified - Follow up/Referral - Patient Discharge Instructions - Post Discharge Activity
[2019-06-14] MEDS ORDERED: SODIUM CHLORIDE 0.9% 500 ML INFUS.BAG IV ONE ×2 (08:10→13:08)
[2019-06-14] MEDS ORDERED: ACETAMINOPHEN 1000 MG/100 ML VIAL (NON FORMULARY) IVPB ONE (08:10)
[2019-06-14 08:16] LABS: BASO % 0.5 % (0-2.0); EOS % 2.9 % (0-4.5); HEMATOCRIT 39.8 % (32.4-45.2); HEMOGLOBIN 14.1 GM/dL (10.7-15.3); LYMPH % 25.2 % (8-40); MCH 31.2 pg (25.7-33.7); MCHC 35.3 g/dl (32.0-36.0); MEAN CELL VOLUME 88.3 fl (80-96); MEAN PLT VOLUME 7.8 fl (7.5-11.1); NEUT % 63.4 % (42.8-82.8); PLATELET COUNT 202 K/MM3 (134-434); RBC 4.51 M/mm3 (3.60-5.2); RDW 12.7 % (11.6-15.6)
--- NOTE | 2019-06-14 08:27 | PDOC ---
Attending Attestation - Resident Resident Name: Jan Gamboa - ED Attending Attestation I have performed the following: I have examined & evaluated the patient, The case was reviewed & discussed with the resident, I agree w/resident's findings & plan, Exceptions are as noted - HPI HPI: 06/14/19 08:27 54y F hx of CAD (sp [place]), chf (EF 35%), NDDM, kideny stones, htn, hl, anxiety/ depression presents with complaints of worsening chest pain. Patient states that she had intermittent chest pain rating to the back for the past week however the past day has been constant and more severe. Patient notes that the pain radiates down to her leg states that she also has worsening appetite and has not eaten or drank anything for the last couple of days. Patient denies any fever, chills. Patient denies any dysuria but notes she has been urinating less than usual. Patient denies any diarrhea, BPR. Exam: GENERAL: The patient is awake, alert,pale appearing, no acute distress, thin appearing HEAD: Normocephalic, atraumatic. EYES: extraocular movements intact, sclera anicteric, conjunctiva clear. ENT: Normal voice, dry mucous membranes. NECK: Normal range of motion, supple LUNGS: Breath sounds equal, clear to auscultation bilaterally. No wheezes, no rhonchi, no rales. HEART: Regular rate and rhythm, normal S1 and S2 without murmur, rub or gallop. ABDOMEN: Soft, mild diffuse tenderness. No CVA tenderness EXTREMITIES: Normal range of motion, no edema. NEUROLOGICAL: No facial assymetry, Normal speech, moving all 4 extremities spontaneously and symmetrically PSYCH: Normal mood, normal affect. SKIN: Warm, Dry, normal turgor, Differential for the patient's symptoms includes but not limited to, acute coronary syndrome, pneumonia, pancreatitis, dissection, Will obtain blood work, chest x-ray, troponin, EKG, The patient does appear dry and is mildly hypotensive will give fluids for fluid resuscitation Consider CTA Will reassess We will give Tylenol for pain - Physicial Exam PE: 06/16/19 08:32 see above - Medical Decision Making pts labs reviewed noted mild elevation of bun - suspect dehdyratio n- will continue fluid resisutation cta negative for dissection pts stable, but not signficantly improved after fluid resusitation will admit the patient for futrther management and evaluation of her chest pain Heart Score/ECG Review - ECG Impressions Comment:: 06/14/19 08:53 Twelve-lead EKG was performed and reviewed by me. There is normal sinus rhythm with a normal rate. rate of 63 The axis is normal. Abnormal R wave progression Normal intervals
[2019-06-14 08:29] LABS: INR 1.05 (0.83-1.09); PROTHROMBIN TIME (PATIENT) 12.4 SEC (9.7-13.0)
[2019-06-14] MEDS ORDERED: ACETAMINOPHEN INJECTION 100 ML IVPB ONE (08:29)
[2019-06-14 08:32] LABS: ACTIVATED PTT 36.6 SECONDS (25.2-36.5)
[2019-06-14 08:54] LABS: ALBUMIN 4.4 g/dl (3.4-5.0); BILIRUBIN,TOTAL 0.7 mg/dL (0.2-1); BLOOD UREA NITROGEN 24.2 mg/dL (7-18); CALCIUM 9.1 mg/dL (8.5-10.1); CREATININE 1.3 mg/dL (0.55-1.3); MAGNESIUM 2.1 mg/dL (1.8-2.4); N-TERMINAL BNP 611.2 pg/ml (5-125); PHOSPHOROUS 5.1 mg/dL (2.5-4.9); POTASSIUM 4.5 mmol/L (3.5-5.1); TOT PROT 7.7 g/dl (6.4-8.2)
[2019-06-14] MEDS ORDERED: morphine CARPU-JECT 4 MG/1 ML DISP.SYRIN IVPUSH ONE (09:48)
[2019-06-14 09:56] LABS: VENOUS PC02 51.1 mmHg (38-52); VENOUS PH 7.25 (7.31-7.41)
[2019-06-14 09:57] LABS: VENOUS PO2 < 49 mmHg (28-48)
--- NOTE | 2019-06-14 10:44 | EKG ---
Test Reason : Blood Pressure : / mmHG Vent. Rate : 063 BPM Atrial Rate : 063 BPM P-R Int : 194 ms QRS Dur : 080 ms QT Int : 364 ms P-R-T Axes : 028 022 095 degrees QTc Int : 372 ms NORMAL SINUS RHYTHM ANTEROSEPTAL INFARCT (CITED ON OR BEFORE 16-OCT-2014) ABNORMAL ECG WHEN COMPARED WITH ECG OF 16-MAR-2019 11:18, NO SIGNIFICANT CHANGE WAS FOUND Confirmed by NICHOL CARNEY, MOLLY ([id number]) on 06/14/2019 10:44:08 AM Referred By: Confirmed By:MOLLY GANDARA MD
[2019-06-14] MEDS ORDERED: IBUPROFEN 600 MG TABLET (FP) PO ONE ×2 (13:12→13:22)
[2019-06-14 13:41] LABS: URINE APPEARANCE CLEAR; URINE BILIRUBIN NEGATIVE (NEGATIVE); URINE COLOR YELLOW; URINE GLUCOSE (UA) NEGATIVE (NEGATIVE); URINE KETONE NEGATIVE (NEGATIVE); URINE LEUK ESTERASE NEGATIVE (NEGATIVE); URINE NITRITE NEGATIVE (NEGATIVE); URINE PROTEIN NEGATIVE (NEGATIVE); URINE UROBILINOGEN 0.2 mg/dL (0.2-1.0)
--- NOTE | 2019-06-14 14:32 | HP ---
CHIEF COMPLAINT: Chest Pain and Left leg pain PCP: Dr [facility] HISTORY OF PRESENT ILLNESS: Pt is a 54 y/o F with a significant past medical history of NIDDM, HTN, HFrEF (last EF 35%), CAD s/p 1 stent (2010), HLD, anorexia, and COPD (not on home o2) who presented to [facility] due to chest pain and left leg pain. Chest pain commenced ~ 1 week ago and has progressively gotten worse over the past 3 days. Pt states pain is now constant, 10/10 in severity and is located across her left shoulder blade and radiates down her left arm. States pain is similar to the pain she experienced with her prior M.I. Endorses 5 episodes of vomiting; also endorses nausea, shortness of breath, lightheadedness, and headache. Furthermore, pt also complaining of left leg pain; pt is able to move the leg but endorses she fins in difficult to walk as a result of the pain. Denies any trauma. ER course was notable for: (1) CTA Abdomen/Pelvis No acute pathology (2) Trop negative (3) Recent Travel: denies PAST MEDICAL HISTORY: as above PAST SURGICAL HISTORY: Social History: Smoking: Former smoke, quit in 2014 Alcohol: denies Drugs: denies Allergies No Known Allergies Allergy (Verified 06/14/19 07:24) HOME MEDICATIONS: Home Medications Medication Instructions Recorded Alprazolam [Xanax] 1 mg PO BID 04/15/16 Aspirin [ASA -] 81 mg PO DAILY 04/15/16 Atorvastatin Ca [Lipitor] 40 mg PO HS 04/15/16 Gabapentin 600 mg PO QID 04/15/16 Topiramate 50 mg PO BID 04/15/16 Oxycodone HCl/Acetaminophen 1 tab PO Q12H PRN 05/21/16 [Percocet 5-325 mg Tablet] Buspirone HCl 7.5 mg PO TID 11/07/17 Tizanidine HCl 2 mg PO BID 11/07/17 Carvedilol [Coreg -] 3.125 mg PO BID #60 tablet 11/09/17 Duloxetine HCl [Cymbalta] 30 mg PO BID 12/01/18 Metformin HCl [Glucophage] 500 mg PO DAILY #30 tablet 12/01/18 REVIEW OF SYSTEMS CONSTITUTIONAL: Absent: fever, chills, diaphoresis, generalized weakness, malaise, loss of appetite, weight change HEENT: Absent: rhinorrhea, nasal congestion, throat pain, throat swelling, difficulty swallowing, mouth swelling, ear pain, eye pain, visual changes CARDIOVASCULAR: PRESENT: chest pain RESPIRATORY: Absent: cough, shortness of breath, dyspnea with exertion, orthopnea, wheezing, stridor, hemoptysis GASTROINTESTINAL: Absent: abdominal pain, abdominal distension, nausea, vomiting, diarrhea, constipation, melena, hematochezia GENITOURINARY: Absent: dysuria, frequency, urgency, hesitancy, hematuria, flank pain, genital pain MUSCULOSKELETAL: PRESENT LLE pain SKIN: Absent: rash, itching, pallor HEMATOLOGIC/IMMUNOLOGIC: Absent: easy bleeding, easy bruising, lymphadenopathy, frequent infections ENDOCRINE: Absent: unexplained weight gain, unexplained weight loss, heat intolerance, cold intolerance NEUROLOGIC: Absent: headache, focal weakness or paresthesias, dizziness, unsteady gait, seizure, mental status changes, bladder or bowel incontinence PSYCHIATRIC: Absent: anxiety, depression, suicidal or homicidal ideation, hallucinations. PHYSICAL EXAMINATION Vital Signs - 24 hr 06/14/19 06/14/19 06/14/19 07:24 08:12 08:34 Temperature 97.4 F L Pulse Rate 77 Pulse Rate [ 64 Apical] Respiratory 14 14 Rate Blood Pressure 90/53 L Blood Pressure 92/69 [Right Arm] O2 Sat by Pulse 98 99 99 Oximetry (%) 06/14/19 06/14/19 06/14/19 09:49 10:30 12:02 Temperature Pulse Rate Pulse Rate [ 65 65 74 Apical] Respiratory 17 17 17 Rate Blood Pressure Blood Pressure 97/66 99/70 99/67 [Right Arm] O2 Sat by Pulse 99 99 99 Oximetry (%) GENERAL: NAD. HEAD: Normal with no signs of trauma. EYES: EOMI Sclera Clear EARS, NOSE, THROAT: MMM NECK: No JVD appreciated LUNGS: CTA b/l. HEART: RRR S1S2 ABDOMEN: Soft, NDNT LOWER EXTREMITIES: No CCE. LLE tender to palpation. No edema or erythema appreciated NEUROLOGICAL: Cranial nerves II-XII intact. Normal speech. PSYCHIATRIC: Cooperative. Good eye contact. Appropriate mood and affect. SKIN: No rashes or lesions appreciated Laboratory Results - last 24 hr 06/14/19 06/14/19 06/14/19 08:05 08:05 08:05 WBC 6.0 RBC 4.51 Hgb 14.1 Hct 39.8 MCV 88.3 MCH 31.2 MCHC 35.3 RDW 12.7 Plt Count 202 MPV 7.8 Absolute Neuts (auto) 3.8 Neutrophils % 63.4 Lymphocytes % 25.2 Monocytes % 8.0 Eosinophils % 2.9 Basophils % 0.5 Nucleated RBC % 0 PT with INR INR PTT (Actin FS) VBG pH POC VBG pCO2 POC VBG pO2 VBG HCO3 VBG O2 Sat (Kassandra) VBG Base Excess Sodium 135 L Potassium 4.5 Chloride 104 Carbon Dioxide 20 L Anion Gap 11 BUN 24.2 H Creatinine 1.3 Est GFR (CKD-EPI)AfAm 53.48 Est GFR (CKD-EPI)NonAf 46.15 Random Glucose 122 H Lactic Acid Calcium 9.1 Phosphorus 5.1 H Magnesium 2.1 Total Bilirubin 0.7 AST 28 ALT 17 Alkaline Phosphatase 72 Creatine Kinase 96 Troponin I < 0.02 B-Natriuretic Peptide 611.2 H Total Protein 7.7 Albumin 4.4 Lipase 151 Urine Color Urine Appearance Urine pH Ur Specific Hayti Urine Protein Urine Glucose (UA) Urine Ketones Urine Blood Urine Nitrite Urine Bilirubin Urine Urobilinogen Ur Leukocyte Esterase 06/14/19 06/14/19 06/14/19 08:05 09:10 09:10 WBC RBC Hgb Hct MCV MCH MCHC RDW Plt Count MPV Absolute Neuts (auto) Neutrophils % Lymphocytes % Monocytes % Eosinophils % Basophils % Nucleated RBC % PT with INR 12.40 INR 1.05 PTT (Actin FS) 36.6 H VBG pH 7.25 L POC VBG pCO2 51.1 POC VBG pO2 < 49 H VBG HCO3 21.4 L VBG O2 Sat (Kassandra) 48.3 L VBG Base Excess -5.9 L Sodium Potassium Chloride Carbon Dioxide Anion Gap BUN Creatinine Est GFR (CKD-EPI)AfAm Est GFR (CKD-EPI)NonAf Random Glucose Lactic Acid 0.9 Calcium Phosphorus Magnesium Total Bilirubin AST ALT Alkaline Phosphatase Creatine Kinase Troponin I B-Natriuretic Peptide Total Protein Albumin Lipase Urine Color Urine Appearance Urine pH Ur Specific Hayti Urine Protein Urine Glucose (UA) Urine Ketones Urine Blood Urine Nitrite Urine Bilirubin Urine Urobilinogen Ur Leukocyte Esterase 06/14/19 13:30 WBC RBC Hgb Hct MCV MCH MCHC RDW Plt Count MPV Absolute Neuts (auto) Neutrophils % Lymphocytes % Monocytes % Eosinophils % Basophils % Nucleated RBC % PT with INR INR PTT (Actin FS) VBG pH POC VBG pCO2 POC VBG pO2 VBG HCO3 VBG O2 Sat (Kassandra) VBG Base Excess Sodium Potassium Chloride Carbon Dioxide Anion Gap BUN Creatinine Est GFR (CKD-EPI)AfAm Est GFR (CKD-EPI)NonAf Random Glucose Lactic Acid Calcium Phosphorus Magnesium Total Bilirubin AST ALT Alkaline Phosphatase Creatine Kinase Troponin I B-Natriuretic Peptide Total Protein Albumin Lipase Urine Color Yellow Urine Appearance Clear Urine pH 5.0 Ur Specific Hayti 1.025 Urine Protein Negative Urine Glucose (UA) Negative Urine Ketones Negative Urine Blood Negative Urine Nitrite Negative Urine Bilirubin Negative Urine Urobilinogen 0.2 Ur Leukocyte Esterase Negative ASSESSMENT/PLAN: Pt is a 54 y/o F with a significant past medical history of NIDDM, HTN, HFrEF ( last EF 35%), CAD s/p 1 stent (2010), HLD, anorexia, and COPD (not on home o2) who presented to [facility] due to chest pain and left leg pain. #Chest Pain. R/O ACS -1st trop neg. Trend -Echocardiogram -Cardiology consult -Tele monitoring -CTA read as grossly normal, no evidence of dissection or AAA as cause of chest and abdominal pain. -BNP 611, highest since 2013. Pt clinically does not medhat fluid overloaded. Will assess daily #HTN Resume Coreg 3.25 BID #Depression/Anorexia - Continue home medications. - Out-patient follow up with psych #NIDDM -ISS. Hold oral hypoglycemics. #FEN No standing fluids Monitor Electrolytes Sodium Controlled Diet #DVT ppx: HEP SQ TID #Dispo: Tele Obs Visit type - Emergency Visit Emergency Visit: Yes ED Registration Date: 06/14/19 Care time: The patient presented to the Emergency Department on the above date and was hospitalized for further evaluation of their emergent condition. - New Patient This patient is new to me today: Yes Date on this admission: 06/14/19 - Critical Care Critical Care patient: No ATTENDING PHYSICIAN STATEMENT I saw and evaluated the patient. I reviewed the resident's note and discussed the case with the resident. I agree with the resident's findings and plan as documented. SUBJECTIVE: OBJECTIVE: ASSESSMENT AND PLAN:
--- NOTE | 2019-06-14 15:29 | ECHO ---
Name: VARIAN, ADNITA Exam:Adult Echocardiogram Study Date: 06/14/2019 02:23 PM Age: 54 yrs Height: 61 in Weight: 108 lb BSA: 1.5 m2 MMode/2D Measurements & Calculations IVSd: 0.82 cm Ao root diam: 2.4 cm LVIDd: 3.9 cm LA dimension: 3.2 cm LVIDs: 2.8 cm LVPWd: 0.87 cm LVPWs: 1.1 cm EDV(Teich): 66.5 ml ESV(Teich): 28.6 ml LVOT diam: 1.8 cm Doppler Measurements & Calculations MV E max tylor: 67.6 cm/sec Ao V2 max: 125.5 cm/sec MV A max tylor: 100.7 cm/sec Ao max P.3 mmHg MV E/A: 0.67 MV dec time: 0.15 sec ROHINI(V,D): 1.6 cm2 LV V1 max P.3 mmHg TR max tylor: 179.8 cm/sec LV V1 max: 75.0 cm/sec TR max P.9 mmHg PA V2 max: 158.8 cm/sec Med Peak E' Tylor: 4.9 cm/sec PA max P.1 mmHg Med E/e': 13.7 Lat Peak E' Tylor: 3.7 cm/sec Lat E/e': 18.1 Procedure A complete two-dimensional transthoracic echocardiogram was performed (2D, M-mode, Doppler and color flow Doppler). Left Ventricle The left ventricle is normal in size. Left ventricular systolic function is moderately reduced. Eject ion Fraction = 40-45%. There is moderate global hypokinesis of the left ventricle. Right Ventricle The right ventricle is normal in size and function. There is a pacemaker lead in the right ventricle. Atria Normal left and right atrial size and function. Mitral Valve There is no mitral regurgitation noted. Tricuspid Valve There is trace tricuspid regurgitation. There was insufficient TR detected to calculate RV systolic p ressure. Aortic Valve No hemodynamically significant valvular aortic stenosis. No aortic regurgitation is present. Pulmonic Valve There is no pulmonic valvular regurgitation. Great Vessels The aortic root is normal size. Pericardium/Pleura There is no pericardial effusion. Interpretation Summary Left ventricular systolic function is moderately reduced. There is moderate global hypokinesis of the left ventricle. The right ventricle is normal in size and function. There is a pacemaker lead in the right ventricle. There is trace tricuspid regurgitation. MD Catalino Hunter 06/14/2019 03:29 PM
[2019-06-14 15:53] LABS: ARTERIAL BLD GAS O2 SATURATION 97.1 % (95-98); ARTERIAL BLOOD GAS BASE EXCESS -6.2 meq/l (-2-2); ARTERIAL BLOOD GAS PCO2 37.9 mmHg (35-45); ARTERIAL BLOOD GAS PO2 94.6 mmHg (80-100); ARTERIAL BLOOD GAS pH 7.32 (7.35-7.45)
[2019-06-14 16:03] LABS: ALLENS TEST POSITIVE
--- NOTE | 2019-06-14 16:20 | PN ---
Teaching Attending Note Name of Resident: Kenji Reed ATTENDING PHYSICIAN STATEMENT I saw and evaluated the patient. I reviewed the resident's note and discussed the case with the resident. I agree with the resident's findings and plan as documented with exceptions below. SUBJECTIVE: 54 yof with PMHx of NIDDM, HTN, ischemic cardiomyopathy, HFrEF (last EF 35%), CAD s/p LAD PCI x 1 in 2010, HLD, anorexia, and COPD (not on home o2), ISELA ( not on CPAP), admitted with multitude of symptoms including chest pain, back pain, left shoulder pain, "stomach pain", left leg pain, worse since yesterday. Overall chronic pain concerns, but reports worsening since yesterday. Asking for pain medications. no clear aggravating or relieving factors. No trauma, fall, fevers, chills, URI like illness. reports poor oral intake at baseline and chronic constipation. OBJECTIVE: Vital Signs Period Temp Pulse Resp BP Sys/Riley Pulse Ox Last 24 Hr 97.4 F 64-77 14-17 90-99/53-70 98-99 Intake & Output 06/11/19 06/12/19 06/13/19 06/14/19 23:59 23:59 23:59 23:59 Weight 108 lb GENERAL: Awake, alert, and fully oriented, in no acute distress. HEAD: Normal with no signs of trauma. EYES: Pupils equal, round and reactive to light, extraocular movements intact, sclera anicteric, conjunctiva clear. No lid lag. EARS, NOSE, THROAT: Ears normal, nares patent, oropharynx clear without exudates. Moist mucous membranes. NECK: Normal range of motion, supple , no JVD LUNGS: Breath sounds equal, clear to auscultation bilaterally. No wheezes, and no crackles. No accessory muscle use. HEART: Regular rate and rhythm, normal S1 and S2 ABDOMEN: Soft, nontender, not distended, normoactive bowel sounds, no guarding, no rebound, no masses. MUSCULOSKELETAL: Normal range of motion at all joints. No bony deformities or tenderness. No CVA tenderness. SLR neg bilaterally UPPER EXTREMITIES: 2+ pulses, warm, well-perfused. No cyanosis. No clubbing. No peripheral edema. LOWER EXTREMITIES: 2+ pulses, warm, well-perfused. No calf tenderness. No peripheral edema. NEUROLOGICAL: AAOX3, facial symmetry, Cranial nerves II-XII intact. Normal speech. Gait not observed PSYCHIATRIC: Cooperative. Good eye contact. Appropriate mood and affect. SKIN: Warm, dry, normal turgor, no rashes or lesions noted, normal capillary refill. Home Medications Medication Instructions Recorded Atorvastatin Ca [Lipitor] 40 mg PO HS 04/15/16 Gabapentin 600 mg PO QID 04/15/16 Topiramate 50 mg PO BID 04/15/16 Buspirone HCl 15 mg PO TID 11/07/17 Tizanidine HCl 2 mg PO BID PRN 11/07/17 Carvedilol [Coreg -] 3.125 mg PO BID #60 tablet 11/09/17 Duloxetine HCl [Cymbalta] 30 mg PO BID 12/01/18 Clonazepam [Klonopin] 1 mg PO BID 06/14/19 Metformin HCl [Glucophage] 1,000 mg PO BID 06/14/19 Pramipexole Di-HCl [Mirapex] 0.25 mg PO BID 06/14/19 Sitagliptin Phosphate [Januvia] 100 mg PO DAILY 06/14/19 clonazePAM [Klonopin -] 0.5 mg PO DAILY 06/14/19 Active Medications Atorvastatin Calcium (Lipitor -) 40 mg PO HS [facility] Carvedilol (Coreg -) 3.125 mg PO BID [facility] Duloxetine HCl (Cymbalta -) 30 mg PO BID [facility] Heparin Sodium (Porcine) (Heparin -) 5,000 unit SQ TID [facility] Non-Formulary Medication (Buspirone Hcl [Buspirone Hcl]) 15 mg PO TID [facility] Non-Formulary Medication (Gabapentin [Gabapentin]) 600 mg PO QID [facility] Non-Formulary Medication (Tizanidine Hcl [Tizanidine Hcl]) 2 mg PO BID PRN PRN Reason: PAIN Non-Formulary Medication (Topiramate [Topiramate]) 50 mg PO BID [facility] Pramipexole Dihydrochloride (Mirapex -) 0.25 mg PO BID [facility] Laboratory Results - last 24 hr 06/14/19 06/14/19 06/14/19 08:05 08:05 08:05 WBC 6.0 RBC 4.51 Hgb 14.1 Hct 39.8 MCV 88.3 MCH 31.2 MCHC 35.3 RDW 12.7 Plt Count 202 MPV 7.8 Absolute Neuts (auto) 3.8 Neutrophils % 63.4 Lymphocytes % 25.2 Monocytes % 8.0 Eosinophils % 2.9 Basophils % 0.5 Nucleated RBC % 0 PT with INR INR PTT (Actin FS) Anticoagulation Therapy Puncture Site ABG pH ABG pCO2 at Pt Temp ABG pO2 at Pt Temp ABG HCO3 ABG O2 Sat (Measured) ABG O2 Content ABG Base Excess Dann Test VBG pH POC VBG pCO2 POC VBG pO2 VBG HCO3 VBG O2 Sat (Kassandra) VBG Base Excess O2 Delivery Device Oxygen Flow Rate Vent Mode Vent Rate Mechanical Rate Pressure Support Vent Sodium 135 L Potassium 4.5 Chloride 104 Carbon Dioxide 20 L Anion Gap 11 BUN 24.2 H Creatinine 1.3 Est GFR (CKD-EPI)AfAm 53.48 Est GFR (CKD-EPI)NonAf 46.15 Random Glucose 122 H Lactic Acid Calcium 9.1 Phosphorus 5.1 H Magnesium 2.1 Total Bilirubin 0.7 AST 28 ALT 17 Alkaline Phosphatase 72 Creatine Kinase 96 Troponin I < 0.02 B-Natriuretic Peptide 611.2 H Total Protein 7.7 Albumin 4.4 Lipase 151 Urine Color Urine Appearance Urine pH Ur Specific Midnight Urine Protein Urine Glucose (UA) Urine Ketones Urine Blood Urine Nitrite Urine Bilirubin Urine Urobilinogen Ur Leukocyte Esterase 06/14/19 06/14/19 06/14/19 08:05 09:10 09:10 WBC RBC Hgb Hct MCV MCH MCHC RDW Plt Count MPV Absolute Neuts (auto) Neutrophils % Lymphocytes % Monocytes % Eosinophils % Basophils % Nucleated RBC % PT with INR 12.40 INR 1.05 PTT (Actin FS) 36.6 H Anticoagulation Therapy Puncture Site ABG pH ABG pCO2 at Pt Temp ABG pO2 at Pt Temp ABG HCO3 ABG O2 Sat (Measured) ABG O2 Content ABG Base Excess Dann Test VBG pH 7.25 L POC VBG pCO2 51.1 POC VBG pO2 < 49 H VBG HCO3 21.4 L VBG O2 Sat (Kassandra) 48.3 L VBG Base Excess -5.9 L O2 Delivery Device Oxygen Flow Rate Vent Mode Vent Rate Mechanical Rate Pressure Support Vent Sodium Potassium Chloride Carbon Dioxide Anion Gap BUN Creatinine Est GFR (CKD-EPI)AfAm Est GFR (CKD-EPI)NonAf Random Glucose Lactic Acid 0.9 Calcium Phosphorus Magnesium Total Bilirubin AST ALT Alkaline Phosphatase Creatine Kinase Troponin I B-Natriuretic Peptide Total Protein Albumin Lipase Urine Color Urine Appearance Urine pH Ur Specific Midnight Urine Protein Urine Glucose (UA) Urine Ketones Urine Blood Urine Nitrite Urine Bilirubin Urine Urobilinogen Ur Leukocyte Esterase 06/14/19 06/14/19 06/14/19 13:00 13:30 15:30 WBC RBC Hgb Hct MCV MCH MCHC RDW Plt Count MPV Absolute Neuts (auto) Neutrophils % Lymphocytes % Monocytes % Eosinophils % Basophils % Nucleated RBC % PT with INR INR PTT (Actin FS) Anticoagulation Therapy No Result Required. Puncture Site Right radial ABG pH 7.32 L ABG pCO2 at Pt Temp 37.9 ABG pO2 at Pt Temp 94.6 ABG HCO3 18.8 L ABG O2 Sat (Measured) 97.1 ABG O2 Content 16.0 ABG Base Excess -6.2 L Dann Test Positive VBG pH POC VBG pCO2 POC VBG pO2 VBG HCO3 VBG O2 Sat (Kassandra) VBG Base Excess O2 Delivery Device No Result Required. Oxygen Flow Rate No Vent Mode No Result Required. Vent Rate No Result Required. Mechanical Rate No Result Required. Pressure Support Vent No Result Required. Sodium Potassium Chloride Carbon Dioxide Anion Gap BUN Creatinine Est GFR (CKD-EPI)AfAm Est GFR (CKD-EPI)NonAf Random Glucose Lactic Acid Calcium Phosphorus Magnesium Total Bilirubin AST ALT Alkaline Phosphatase Creatine Kinase Troponin I < 0.02 B-Natriuretic Peptide Total Protein Albumin Lipase Urine Color Yellow Urine Appearance Clear Urine pH 5.0 Ur Specific Midnight 1.025 Urine Protein Negative Urine Glucose (UA) Negative Urine Ketones Negative Urine Blood Negative Urine Nitrite Negative Urine Bilirubin Negative Urine Urobilinogen 0.2 Ur Leukocyte Esterase Negative CTA chest/A/P results noted EKG QS in V1-V3, no acute ST-T changes ASSESSMENT AND PLAN: 54 yof with PMHx of NIDDM, HTN, ischemic cardiomyopathy, HFrEF (last EF 35%), CAD s/p LAD PCI x 1 in 2010, HLD, anorexia, and COPD (not on home o2), ISELA ( not on CPAP), admitted with chest pain, back/shoulder/abdominal and left leg pain -Chest pain, low suspicion for ACS -NEYMAR -Mild Non anion gap acidosis,?from renal dysfunction -NIDDM -HTN -ischemic cardiomyopathy/HFrEF (last EF 35%) -CAD s/p LAD PCI x 1 in 2010 -HLD -Anorexia -COPD not on home O2 -ISELA not on CPAP Plan: telemetry, cycle trop, Cardiology input CTA chest/A/P neg for concerns. Cr higher than recent baseline. Soft BP (overall low baseline BP readings on prior admits, suspect from low EF) Reports poor oral intake. However, looks euvolumic, avoid IVF. Encourage oral fluid intake. s/p contrast in ED, monitor renal function closely. Avoid NSAIDs for now Continue home meds. Avoid narcotics ([employer] registry reviewed, last percocet in 11/2018) DVTPPX heparin PT eval Dispo d/c in 24 hours if no new concerns and renal function stable Discussed with patient total admit time 55 min.
[2019-06-14] MEDS ORDERED: GABAPENTIN 100 MG CAPSULE (FP) ONE (18:16)
[2019-06-14] MEDS ORDERED: ACETAMINOPHEN 325 MG TABLET (FP) ONE (18:16)
[2019-06-14] MEDS: GABAPENTIN 300 MG CAPSULE (FP) PO SCH ×2 (18:21→22:48)
[2019-06-14] MEDS ORDERED: clonazePAM 0.5 MG TABLET PO ONE (18:41)
[2019-06-14] MEDS ORDERED: clonazePAM 0.5 MG TABLET PO SCH (18:45)
[2019-06-14] MEDS: busPIRone HCL 5 MG TABLET PO SCH (22:47)
[2019-06-14] MEDS: PRAMIPEXOLE DIHYDROCHLORIDE 0.25 MG TABLET PO SCH (22:48)
[2019-06-14] MEDS: ATORVASTATIN CA 40 MG TABLET (FP) PO SCH (22:48)
[2019-06-14] MEDS: DULoxetine HCL 30 MG CAPSULE.DR PO SCH (22:48)
[2019-06-14] MEDS: TOPIRAMATE 25 MG TABLET (FP) PO SCH (22:48)
[2019-06-14] MEDS: HEPARIN NA (PORCINE) 5,000 UNITS/ML 1ML VIAL SQ SCH (22:48)
[2019-06-14] MEDS ORDERED: MELATONIN 5 MG TABLETS PO ONE (23:01)
[2019-06-14] MEDS: CARVEDILOL 3.125 MG TABLET (FP) PO SCH (23:02)
[2019-06-14] MEDS ORDERED: SODIUM CHLORIDE 250 ML IV STA (23:02)
[2019-06-15] MEDS ORDERED: PT OWN MED DRAWER 7, Y5N ONE ×6 (06:11→21:44)
[2019-06-15] MEDS: busPIRone HCL 5 MG TABLET PO SCH ×3 (06:52→21:21)
[2019-06-15] MEDS: HEPARIN NA (PORCINE) 5,000 UNITS/ML 1ML VIAL SQ SCH ×3 (06:53→21:22)
[2019-06-15] MEDS: TIZANIDINE HCL 2 MG TABLET PO PRN (06:54)
[2019-06-15 07:29] LABS: ALBUMIN 3.8 g/dl (3.4-5.0); BILIRUBIN,TOTAL 0.6 mg/dL (0.2-1); BLOOD UREA NITROGEN 13.6 mg/dL (7-18); CALCIUM 9.2 mg/dL (8.5-10.1); CREATININE 0.8 mg/dL (0.55-1.3); MAGNESIUM 2.1 mg/dL (1.8-2.4); PHOSPHOROUS 4.1 mg/dL (2.5-4.9); POTASSIUM 3.8 mmol/L (3.5-5.1); TOT PROT 6.6 g/dl (6.4-8.2)
[2019-06-15 07:30] LABS: BASO % 0.7 % (0-2.0); HEMATOCRIT 33.4 % (32.4-45.2); HEMOGLOBIN 11.5 GM/dL (10.7-15.3); LYMPH % 29.8 % (8-40); MCHC 34.5 g/dl (32.0-36.0); MEAN CELL VOLUME 89.7 fl (80-96); MEAN PLT VOLUME 8.4 fl (7.5-11.1); MONO % 8.2 % (3.8-10.2); NEUT % 57.3 % (42.8-82.8); PLATELET COUNT 181 K/MM3 (134-434); RBC 3.73 M/mm3 (3.60-5.2); RDW 12.6 % (11.6-15.6); WHITE BLOOD COUNT 4.4 K/mm3 (4.0-10.0)
[2019-06-15] MEDS ORDERED: clonazePAM 0.5 MG TABLET PO PRN (10:00)
[2019-06-15 10:27] LABS: ACTIVATED PTT 35.7 SECONDS (25.2-36.5); INR 1.02 (0.83-1.09)
[2019-06-15] MEDS: GABAPENTIN 300 MG CAPSULE (FP) PO SCH ×4 (11:00→21:20)
[2019-06-15] MEDS: PRAMIPEXOLE DIHYDROCHLORIDE 0.25 MG TABLET PO SCH ×2 (11:00→21:22)
[2019-06-15] MEDS: ASPIRIN 81 MG CHEWABLE TABLETS PO SCH (11:00)
[2019-06-15] MEDS: CARVEDILOL 3.125 MG TABLET (FP) PO SCH ×4 (11:00→21:29)
[2019-06-15] MEDS: DULoxetine HCL 30 MG CAPSULE.DR PO SCH ×2 (11:00→21:20)
[2019-06-15] MEDS: ACETAMINOPHEN 325 MG TABLET (FP) PO PRN ×2 (11:01→16:39)
[2019-06-15] MEDS: TOPIRAMATE 25 MG TABLET (FP) PO SCH ×2 (11:01→21:21)
--- NOTE | 2019-06-15 11:03 | CON.CARD ---
Consult Consult Specialty:: Cardiology Referred by:: Hospitalist Medicine - History of Present Illness History of Present Illness: Patient is a 54 year old female with underlying history of CAD, TN, S/P PCI/LEVI to LAD in 2010, ischemic cardiomyopathy HFrEF (last EF 35%) S/P ICD in 2011, patent stent demonstrated by cath in 2016, HTN, hypercholesterolemia, NIDDM, COPD and OSAS not on cpap, anxiety, depression, anorexia nervousa, sigmoid diverticulitis admitted with multitude of symptoms including chest pain, back pain, left shoulder pain, "stomach pain", left leg pain, worse since yesterday. Overall chronic pain concerns, but reports worsening since yesterday. Asking for pain medications. No clear aggravating or relieving factors. No trauma, fall , fevers, chills, URI like illness. She reports poor oral intake at baseline and chronic constipation. She reports she has had anorexia nervosa since she's been 11 years old, tried multiple inpatient programs which have failed. She does not see an outpt psychiatrist. She denies chest pain, shocks, palpitations , orthopnea, PND or LE edema. - History Source History Provided By: Patient Limitations to Obtaining History: No Limitations - Past Medical History Cardio/Vascular: Yes: CAD, CHF, HTN, Hyperlipdemia, TN, Other (ICD,S/P PCI/LEVI) Pulmonary: Yes: COPD (CPAP at home), Sleep Apnea (CPAP at home but only uses 3- 4x/week at night) Gastrointestinal: Yes: Constipation, Hemorrhoids Renal/: Yes: Renal Inusuff (past episode of NEYMAR) ...: No Psych: Yes: Anxiety, Other (body dysmorphic disorder) Musculoskeletal: Yes: Chronic low back pain Rheumatology: Yes: Fibromyalgia Endocrine: Yes: Diabetes Mellitus - Past Surgical History Past Surgical History: Yes: AICD, Colonoscopy, , Stent - Alcohol/Substance Use Hx Alcohol Use: No History of Substance Use: reports: None - Smoking History Smoking history: Never smoked Have you smoked in the past 12 months: No Aproximately how many cigarettes per day: 10 If you are a former smoker, when did you quit?: 2014 - Social History Usual Living Arrangement: With Spouse (fiancee) ADL: Independent History of Recent Travel: No Home Medications - Allergies Allergies/Adverse Reactions: Allergies Allergy/AdvReac Type Severity Reaction Status Date / Time No Known Allergies Allergy Verified 06/14/19 07:24 - Home Medications Home Medications: Ambulatory Orders Atorvastatin Ca [Lipitor] 40 mg PO HS 04/15/16 Gabapentin 600 mg PO QID 04/15/16 Topiramate 50 mg PO BID 04/15/16 Buspirone HCl 15 mg PO TID 11/07/17 Tizanidine HCl 2 mg PO BID PRN 11/07/17 Carvedilol [Coreg -] 3.125 mg PO BID #60 tablet 11/09/17 Duloxetine HCl [Cymbalta] 30 mg PO BID 12/01/18 Clonazepam [Klonopin] 1 mg PO BID 06/14/19 Metformin HCl [Glucophage] 1,000 mg PO BID 06/14/19 Pramipexole Di-HCl [Mirapex] 0.25 mg PO BID 06/14/19 Sitagliptin Phosphate [Januvia] 100 mg PO DAILY 06/14/19 Tramadol HCl [Tramadol HCl ER] 200 mg PO DAILY 06/14/19 clonazePAM [Klonopin -] 0.5 mg PO DAILY 06/14/19 Review of Systems - Review of Systems Constitutional: reports: Loss of Appetite, Weakness Cardiovascular: reports: Chest Pain, Shortness of Breath Neurological: reports: Dizziness Vital Signs: Vital Signs Temperature 97.2 F L 06/15/19 08:38 Pulse Rate 64 06/15/19 08:38 Respiratory Rate 18 06/15/19 08:38 Blood Pressure 107/61 06/15/19 08:38 O2 Sat by Pulse Oximetry (%) 98 06/15/19 03:00 Constitutional: Yes: No Distress, Calm Neck: Yes: Supple Respiratory: Yes: Regular, CTA Bilaterally Gastrointestinal: Yes: Normal Bowel Sounds, Soft Cardiovascular: Yes: Regular Rate and Rhythm JVD: No Carotid Bruit: No Heart Sounds: Yes: S1, S2 Murmur: Yes: Systolic Murmur, Grade 1 Edema: No - Other Data Labs, Other Data: CBC, BMP 06/15/19 06:15 06/15/19 06:15 INR, PTT INR 1.02 (0.83-1.09) 06/15/19 06:15 Troponin, BNP 06/14/19 13:00 Troponin I < 0.02 Troponin, BNP 06/14/19 13:00 Troponin I < 0.02 NSR @ 62 old anteroseptal infarct Tele: SB Ejection Fraction %: LVEF < 40 % Imaging - Results Chest X-ray: Report Reviewed (NAD) Cat Scan: Report Reviewed (Chest and abd/pelvic CTA: No thoracic or abdominal aneurysm or dissection) Ultrasound: Report Reviewed (No left leg DVT) Problem List - Problems (1) NEYMAR (acute kidney injury) Code(s): N17.9 - ACUTE KIDNEY FAILURE, UNSPECIFIED (2) Chest pain Code(s): R07.9 - CHEST PAIN, UNSPECIFIED Qualifiers: Chest pain type: unspecified Qualified Code(s): R07.9 - Chest pain, unspecified (3) Anorexia nervosa Code(s): F50.00 - ANOREXIA NERVOSA, UNSPECIFIED (4) CAD (coronary artery disease) Code(s): I25.10 - ATHSCL HEART DISEASE OF [place] CORONARY ARTERY W/O ANG PCTRS Qualifiers: Coronary Disease-Associated Artery/Lesion type: [place] artery [place] vs. transplanted heart: [place] heart Associated angina: without angina Qualified Code(s): I25.10 - Atherosclerotic heart disease of [place] coronary artery without angina pectoris (5) CHF (congestive heart failure), NYHA class I Code(s): I50.9 - HEART FAILURE, UNSPECIFIED Qualifiers: Congestive heart failure type: systolic Congestive heart failure chronicity : chronic Qualified Code(s): I50.22 - Chronic systolic (congestive) heart failure (6) Diabetes mellitus Code(s): E11.9 - TYPE 2 DIABETES MELLITUS WITHOUT COMPLICATIONS Qualifiers: Diabetes mellitus type: type 2 Diabetes mellitus shelter insulin 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 Diabetes mellitus complication status: with hyperglycemia Qualified Code(s): E11.65 - Type 2 diabetes mellitus with hyperglycemia (7) Neurocardiogenic syncope Code(s): R55 - SYNCOPE AND COLLAPSE (8) Chronic left ventricular systolic dysfunction Code(s): I51.9 - HEART DISEASE, UNSPECIFIED (9) Hyperlipidemia Code(s): E78.5 - HYPERLIPIDEMIA, UNSPECIFIED Qualifiers: Hyperlipidemia type: pure hypercholesterolemia Qualified Code(s): E78.00 - Pure hypercholesterolemia, unspecified; E78.0 - Pure hypercholesterolemia (10) Single implantable cardioverter-defibrillator (ICD) in situ Code(s): Z95.810 - PRESENCE OF AUTOMATIC (IMPLANTABLE) CARDIAC DEFIBRILLATOR (11) Status post insertion of drug-eluting stent into left anterior descending artery for coronary artery disease Code(s): Z98.61 - CORONARY ANGIOPLASTY STATUS (12) Status post myocardial infarction of anterior wall Code(s): I25.2 - OLD MYOCARDIAL INFARCTION Assessment/Plan 06/14/19: Echo: Moderate decreased LV systolic fxn, normal RV size and fxn, pacemaker in RV, tr TR 11/08/17 Echo: Large region of apical AK, moderate decreased LV systolic fxn, normal RV fxn, LVEF 35% Echocardiography dated 11/23 revealed LV mildly dilated with wall motion abnormality, EF mildly reduced, moderate MR and mild TR MPI study dated 11/22 revealed mildly reduced EF with apical fixed defect infarct LHC& coronary angiography dated 11/23 revealed non-obstructive CAD, patent LAD stent, moderate decreased LV systolic function with LVEF 45% with severe anterior, hannah-lateral hypokinesia 1. Chest pain, not ACS, ruled out for TN 2. CAD post PCI/stent, angina pectoris, stable 3. NEYMAR resolved 4. Ischemic cardiomyopathy with history of failure post prophylactic ICD implant , euvolemic Neurocardiogenic syncope +/- orthostatic syncope with recurrence 5. HTN 6. DM 7. Hypercholesterolemia 8. COPD 9. OSAS noncompliant with CPAP 10. Depression/anxiety/eating disorder PLAN: 1. Ruled out for TN, aortic dissection 2. Continue Carvedilol 3.125 bid hemodynamics permitting 3. Recommend resumption of Prinivil hemodynamics permitting once renal fxn stable 4. Continue ASA 81 qd 5. Continue Lipitor 40 qhs 6. F/u in office [phone], [employer] ICD interrogation as outpatient 7. Thank you for consultative opportunity
--- NOTE | 2019-06-15 15:15 | PN ---
Teaching Attending Note Name of Resident: Reyna Trejo ATTENDING PHYSICIAN STATEMENT I saw and evaluated the patient. I reviewed the resident's note and discussed the case with the resident. I agree with the resident's findings and plan as documented. SUBJECTIVE: complains of generalized abdominal discomfort with nausea - no vomiting/diarrhea/fever/chills. Reports occasional lightheadedness on walking. No CP/palpitations/SOB. OBJECTIVE: Afebrile, Hemodynamically Stable. Appears anxious. Flat affect. Last Vital Signs Temp Pulse Resp BP Pulse Ox 97.8 F 56 L 18 98/63 98 06/15/19 14:35 06/15/19 14:53 06/15/19 14:35 06/15/19 14:53 06/15/19 11:00 HEENT: Atraumatic, Normocephalic. MOHAMUD. Neuro - AAO x 3. tone/Power normal. Heart - S1, S2, RRR Lungs - clear to auscultation Abdomen - soft, mild generalized tenderness. Bowel Sounds normal. Extremities - no calf tenderness. Laboratory Results - last 24 hr 06/14/19 06/14/19 06/14/19 13:00 15:30 22:31 WBC RBC Hgb Hct MCV MCH MCHC RDW Plt Count MPV Absolute Neuts (auto) Neutrophils % Lymphocytes % Monocytes % Eosinophils % Basophils % Nucleated RBC % PT with INR INR PTT (Actin FS) Anticoagulation Therapy No Result Required. Puncture Site Right radial ABG pH 7.32 L ABG pCO2 at Pt Temp 37.9 ABG pO2 at Pt Temp 94.6 ABG HCO3 18.8 L ABG O2 Sat (Measured) 97.1 ABG O2 Content 16.0 ABG Base Excess -6.2 L Dann Test Positive O2 Delivery Device No Result Required. Oxygen Flow Rate No Vent Mode No Result Required. Vent Rate No Result Required. Mechanical Rate No Result Required. Pressure Support Vent No Result Required. Sodium Potassium Chloride Carbon Dioxide Anion Gap BUN Creatinine Est GFR (CKD-EPI)AfAm Est GFR (CKD-EPI)NonAf POC Glucometer 88 Random Glucose Calcium Phosphorus Magnesium Total Bilirubin AST ALT Alkaline Phosphatase Troponin I < 0.02 Total Protein Albumin 06/15/19 06/15/19 06/15/19 06:15 06:15 06:15 WBC 4.4 RBC 3.73 Hgb 11.5 Hct 33.4 D MCV 89.7 MCH 31.0 MCHC 34.5 RDW 12.6 Plt Count 181 MPV 8.4 Absolute Neuts (auto) 2.5 Neutrophils % 57.3 Lymphocytes % 29.8 Monocytes % 8.2 Eosinophils % 4.0 Basophils % 0.7 Nucleated RBC % 0 PT with INR 12.00 INR 1.02 PTT (Actin FS) 35.7 Anticoagulation Therapy Puncture Site ABG pH ABG pCO2 at Pt Temp ABG pO2 at Pt Temp ABG HCO3 ABG O2 Sat (Measured) ABG O2 Content ABG Base Excess Dann Test O2 Delivery Device Oxygen Flow Rate Vent Mode Vent Rate Mechanical Rate Pressure Support Vent Sodium 141 Potassium 3.8 Chloride 110 H Carbon Dioxide 24 Anion Gap 8 BUN 13.6 Creatinine 0.8 Est GFR (CKD-EPI)AfAm 96.19 Est GFR (CKD-EPI)NonAf 83.00 POC Glucometer Random Glucose 80 Calcium 9.2 Phosphorus 4.1 Magnesium 2.1 Total Bilirubin 0.6 AST 9 L ALT 12 L Alkaline Phosphatase 60 Troponin I Total Protein 6.6 Albumin 3.8 06/15/19 06/15/19 06:41 11:27 WBC RBC Hgb Hct MCV MCH MCHC RDW Plt Count MPV Absolute Neuts (auto) Neutrophils % Lymphocytes % Monocytes % Eosinophils % Basophils % Nucleated RBC % PT with INR INR PTT (Actin FS) Anticoagulation Therapy Puncture Site ABG pH ABG pCO2 at Pt Temp ABG pO2 at Pt Temp ABG HCO3 ABG O2 Sat (Measured) ABG O2 Content ABG Base Excess Dann Test O2 Delivery Device Oxygen Flow Rate Vent Mode Vent Rate Mechanical Rate Pressure Support Vent Sodium Potassium Chloride Carbon Dioxide Anion Gap BUN Creatinine Est GFR (CKD-EPI)AfAm Est GFR (CKD-EPI)NonAf POC Glucometer 89 135 Random Glucose Calcium Phosphorus Magnesium Total Bilirubin AST ALT Alkaline Phosphatase Troponin I Total Protein Albumin Current Medications Generic Name Dose Route Start Last Admin Trade Name Freq PRN Reason Stop Dose Admin Acetaminophen 650 mg 06/14/19 16:41 06/15/19 11:01 Tylenol - PO 650 mg Q6H PRN Administration PAIN Aspirin 81 mg 06/15/19 10:00 06/15/19 11:00 Asa - PO 81 mg DAILY GABI Administration Atorvastatin Calcium 40 mg 06/14/19 22:00 06/14/19 22:48 Lipitor - PO 40 mg HS GABI Administration Buspirone HCl 15 mg 06/14/19 22:00 06/15/19 14:04 Buspar - PO 15 mg TID GABI Administration Carvedilol 3.125 mg 06/14/19 22:00 06/15/19 12:39 Coreg - PO Not Given BID GABI Clonazepam 0.5 mg 06/15/19 10:00 06/15/19 11:09 Klonopin - PO 0.5 mg Q12H PRN Administration ANXIETY Duloxetine HCl 30 mg 06/14/19 22:00 06/15/19 11:00 Cymbalta - PO 30 mg BID GABI Administration Gabapentin 600 mg 06/14/19 18:00 06/15/19 14:03 Neurontin - PO 600 mg QID [facility] Administration Heparin Sodium (Porcine) 5,000 unit 06/14/19 22:00 06/15/19 14:03 Heparin - SQ 5,000 unit TID [facility] Administration Pramipexole Dihydrochloride 0.25 mg 06/14/19 22:00 06/15/19 11:00 Mirapex - PO 0.25 mg BID GABI Administration Tizanidine HCl 2 mg 06/14/19 16:36 06/15/19 06:54 Tizanidine Hcl PO 2 mg BID PRN Administration PAIN LEVEL 1-5 Topiramate 50 mg 06/14/19 22:00 06/15/19 11:01 Topamax - PO 50 mg BID GABI Administration Home Medications Medication Instructions Recorded Atorvastatin Ca [Lipitor] 40 mg PO HS 04/15/16 Gabapentin 600 mg PO QID 04/15/16 Topiramate 50 mg PO BID 04/15/16 Buspirone HCl 15 mg PO TID 11/07/17 Tizanidine HCl 2 mg PO BID PRN 11/07/17 Carvedilol [Coreg -] 3.125 mg PO BID #60 tablet 11/09/17 Duloxetine HCl [Cymbalta] 30 mg PO BID 12/01/18 Clonazepam [Klonopin] 1 mg PO BID 06/14/19 Metformin HCl [Glucophage] 1,000 mg PO BID 06/14/19 Pramipexole Di-HCl [Mirapex] 0.25 mg PO BID 06/14/19 Sitagliptin Phosphate [Januvia] 100 mg PO DAILY 06/14/19 Tramadol HCl [Tramadol HCl ER] 200 mg PO DAILY 06/14/19 clonazePAM [Klonopin -] 0.5 mg PO DAILY 06/14/19 ASSESSMENT/PLAN: 54 year old female with history of Depression/Anxiety, DM 2, Chronic Systolic CHF/ischemic cardiomyopathy/HFrEF (last EF 35%), CAD s/p LAD PCI x 1 in 2010, HLD, Anorexia, COPD (not on home o2), ISELA (not compliant with CPAP), admitted with multitude of symptoms including chest pain, back pain, left shoulder pain, "stomach pain", left leg pain. 1. Non-specific generalized chest and abdominal pain CT C/A/P - no acute findings, borderline distended GB. ACS and Aortic dissection excluded given Hx of CAD s/p PCI/Stent - Continue ASA , BB, Statin. Evaluated and clearewd by Cardiology CT A/P shows borderline distended GB, no other signs of cholecystitis. Surgery consulted for further evaluation. 2. NEYMAR - resolved 3. DM 2 - Hold Metformin, Sitagliptin. Novolog as per sliding scale. 4. Chronic Systolic CHF (EF 35%) s/p AICD - Echo shows depressed EF with moderate global hypokinesis. Continue BB. Needs Cardiology follow up and medtronic AICD interrogation as outpatient. BP borderline. Orthostatic vitals requested. For re-introduction of YOGESH/Entresto as out-patient. 5. Depression/Anxiety/Eating disorder - Continue Clonazepam, Cymbalta, Tizanidine, Buspirone, Topiramate. Out-patient Psychiatry follow up. 6. COPD - Stable. No evidence of exacerbation. 7. Hx Chronic Pain/RLS - Patient has chronic pain - on Mirapex, Gabapentin 8. HLD - on Lipitor. DVT Px - Heparin SQ
--- NOTE | 2019-06-15 15:50 | PN ---
Physical Exam: SUBJECTIVE: Patient seen and examined in the morning. No acute events overnight. No complaints of chest pain, no shortness of breath, no abdominal pain. Patient has not eaten much since admission, however this is per her baseline due to anorexia. OBJECTIVE: Vital Signs Period Temp Pulse Resp BP Sys/Riley Pulse Ox Last 24 Hr 97.2 F-98.1 F 55-82 12-18 86-118/52-73 97-99 GENERAL: The patient is awake, alert, and fully oriented, in no acute distress. HEAD: Normal with no signs of trauma. NECK: Trachea midline, full range of motion, supple. LUNGS: Breath sounds equal, clear to auscultation bilaterally, no wheezes. HEART: Regular rate and rhythm, S1, S2 without murmur, rub or gallop. ABDOMEN: Tender to palpation in the right upper quadrant. Normoactive bowel sounds. EXTREMITIES: 2+ pulses, warm, well-perfused, no edema. NEUROLOGICAL: Cranial nerves II through XII grossly intact. PSYCH: Decreased mood, seems anxious. SKIN: Warm, dry, normal turgor, no rashes or lesions noted Laboratory Results - last 24 hr 06/14/19 06/14/19 06/15/19 15:30 22:31 06:15 WBC 4.4 RBC 3.73 Hgb 11.5 Hct 33.4 D MCV 89.7 MCH 31.0 MCHC 34.5 RDW 12.6 Plt Count 181 MPV 8.4 Absolute Neuts (auto) 2.5 Neutrophils % 57.3 Lymphocytes % 29.8 Monocytes % 8.2 Eosinophils % 4.0 Basophils % 0.7 Nucleated RBC % 0 PT with INR INR PTT (Actin FS) Anticoagulation Therapy No Result Required. Puncture Site Right radial ABG pH 7.32 L ABG pCO2 at Pt Temp 37.9 ABG pO2 at Pt Temp 94.6 ABG HCO3 18.8 L ABG O2 Sat (Measured) 97.1 ABG O2 Content 16.0 ABG Base Excess -6.2 L Dann Test Positive O2 Delivery Device No Result Required. Oxygen Flow Rate No Vent Mode No Result Required. Vent Rate No Result Required. Mechanical Rate No Result Required. Pressure Support Vent No Result Required. Sodium Potassium Chloride Carbon Dioxide Anion Gap BUN Creatinine Est GFR (CKD-EPI)AfAm Est GFR (CKD-EPI)NonAf POC Glucometer 88 Random Glucose Calcium Phosphorus Magnesium Total Bilirubin AST ALT Alkaline Phosphatase Total Protein Albumin 06/15/19 06/15/19 06/15/19 06:15 06:15 06:41 WBC RBC Hgb Hct MCV MCH MCHC RDW Plt Count MPV Absolute Neuts (auto) Neutrophils % Lymphocytes % Monocytes % Eosinophils % Basophils % Nucleated RBC % PT with INR 12.00 INR 1.02 PTT (Actin FS) 35.7 Anticoagulation Therapy Puncture Site ABG pH ABG pCO2 at Pt Temp ABG pO2 at Pt Temp ABG HCO3 ABG O2 Sat (Measured) ABG O2 Content ABG Base Excess Dann Test O2 Delivery Device Oxygen Flow Rate Vent Mode Vent Rate Mechanical Rate Pressure Support Vent Sodium 141 Potassium 3.8 Chloride 110 H Carbon Dioxide 24 Anion Gap 8 BUN 13.6 Creatinine 0.8 Est GFR (CKD-EPI)AfAm 96.19 Est GFR (CKD-EPI)NonAf 83.00 POC Glucometer 89 Random Glucose 80 Calcium 9.2 Phosphorus 4.1 Magnesium 2.1 Total Bilirubin 0.6 AST 9 L ALT 12 L Alkaline Phosphatase 60 Total Protein 6.6 Albumin 3.8 06/15/19 11:27 WBC RBC Hgb Hct MCV MCH MCHC RDW Plt Count MPV Absolute Neuts (auto) Neutrophils % Lymphocytes % Monocytes % Eosinophils % Basophils % Nucleated RBC % PT with INR INR PTT (Actin FS) Anticoagulation Therapy Puncture Site ABG pH ABG pCO2 at Pt Temp ABG pO2 at Pt Temp ABG HCO3 ABG O2 Sat (Measured) ABG O2 Content ABG Base Excess Dann Test O2 Delivery Device Oxygen Flow Rate Vent Mode Vent Rate Mechanical Rate Pressure Support Vent Sodium Potassium Chloride Carbon Dioxide Anion Gap BUN Creatinine Est GFR (CKD-EPI)AfAm Est GFR (CKD-EPI)NonAf POC Glucometer 135 Random Glucose Calcium Phosphorus Magnesium Total Bilirubin AST ALT Alkaline Phosphatase Total Protein Albumin Active Medications Generic Name Dose Route Start Last Admin Trade Name Freq PRN Reason Stop Dose Admin Acetaminophen 650 mg 06/14/19 16:41 06/15/19 11:01 Tylenol - PO 650 mg Q6H PRN Administration PAIN Aspirin 81 mg 06/15/19 10:00 06/15/19 11:00 Asa - PO 81 mg DAILY GABI Administration Atorvastatin Calcium 40 mg 06/14/19 22:00 06/14/19 22:48 Lipitor - PO 40 mg HS GABI Administration Buspirone HCl 15 mg 06/14/19 22:00 06/15/19 14:04 Buspar - PO 15 mg TID GABI Administration Carvedilol 3.125 mg 06/14/19 22:00 06/15/19 12:39 Coreg - PO Not Given BID GABI Clonazepam 0.5 mg 06/15/19 10:00 06/15/19 11:09 Klonopin - PO 0.5 mg Q12H PRN Administration ANXIETY Duloxetine HCl 30 mg 06/14/19 22:00 06/15/19 11:00 Cymbalta - PO 30 mg BID GABI Administration Gabapentin 600 mg 06/14/19 18:00 06/15/19 14:03 Neurontin - PO 600 mg QID GABI Administration Heparin Sodium (Porcine) 5,000 unit 06/14/19 22:00 06/15/19 14:03 Heparin - SQ 5,000 unit TID GABI Administration Pramipexole Dihydrochloride 0.25 mg 06/14/19 22:00 06/15/19 11:00 Mirapex - PO 0.25 mg BID GABI Administration Tizanidine HCl 2 mg 06/14/19 16:36 06/15/19 06:54 Tizanidine Hcl PO 2 mg BID PRN Administration PAIN LEVEL 1-5 Topiramate 50 mg 06/14/19 22:00 06/15/19 11:01 Topamax - PO 50 mg BID GABI Administration ASSESSMENT/PLAN: 54F with PMH of depression/anxiety, DMII, CHF, CAD, HLD, Anorexia, COPD, ISELA, admitted for chest pain, abdominal pain, left shoulder, and left leg pain. 1)Non-specific chest pain and generalized myalgias -CT Chest/Abdomen/Pelvis showed borderline distended Gallbladder. No aortic dissection or aneurysm present. -Continue ASA 81 mg PO -Continue Coreg 3.125 PO BID -Will have pacemaker interrogated as outpatient. -Cardiology consulted, appreciate recs 2)Borderline distended gallbladder on CT Abdomen -F/U Gallbladder U/S -Surgery consulted, appreciate recs 3)DM -Sliding Scale Insulin -patient having poor oral intake currently 4)CHF -BNP was 611 on admission -Echo shows depressed EF with moderate global hypokinesis. -Continue Coreg 3.125 PO BID -Orthostatic vitals negative 5)Depression/Anxiety/Eating Disorder -Patient has continued poor oral intake, will have outpatient psychiatry follow up. -Continue Clonazepam 1 mg PO BID -Continue Clonazepam 0.5 mg PO @ noon -Continue Cymbalta 30 mg PO BID -Continue Topimirate 50 mg PO BID -Continue Tizanidine 2 mg PO BID 6) Chronic Pain/RLS -Mirapex 0.25 mg PO BID -Gabapentin 600 mg QID 7)Hx of HLD -Continue Lipitor 40 mg HS F: Oral Hydration E: Monitor BMP N: Sodium restricted diet. Encourage oral intake DVT: Heparin 5000 unit TID SQ Visit type - Emergency Visit Emergency Visit: Yes ED Registration Date: 06/14/19 Care time: The patient presented to the Emergency Department on the above date and was hospitalized for further evaluation of their emergent condition. - New Patient This patient is new to me today: Yes Date on this admission: 06/15/19 - Critical Care Critical Care patient: No ATTENDING PHYSICIAN STATEMENT I saw and evaluated the patient. I reviewed the resident's note and discussed the case with the resident. I agree with the resident's findings and plan as documented. SUBJECTIVE: OBJECTIVE: ASSESSMENT AND PLAN:
[2019-06-15] MEDS: ATORVASTATIN CA 40 MG TABLET (FP) PO SCH (21:20)
[2019-06-15] MEDS: clonazePAM 0.5 MG TABLET PO SCH (21:20)
[2019-06-15] MEDS ORDERED: MELATONIN 5 MG TABLETS PO ONE (21:43)
[2019-06-16] MEDS: ACETAMINOPHEN 325 MG TABLET (FP) PO PRN ×4 (01:28→22:01)
[2019-06-16] MEDS ORDERED: PT OWN MED DRAWER 7, Y5N ONE ×5 (06:09→20:46)
[2019-06-16] MEDS: busPIRone HCL 5 MG TABLET PO SCH ×3 (06:22→21:00)
[2019-06-16] MEDS: HEPARIN NA (PORCINE) 5,000 UNITS/ML 1ML VIAL SQ SCH ×3 (06:25→21:01)
[2019-06-16 08:26] LABS: ALBUMIN 4.4 g/dl (3.4-5.0); BILIRUBIN,TOTAL 0.6 mg/dL (0.2-1); BLOOD UREA NITROGEN 11.8 mg/dL (7-18); CALCIUM 9.1 mg/dL (8.5-10.1); CREATININE 0.7 mg/dL (0.55-1.3); POTASSIUM 4.2 mmol/L (3.5-5.1); TOT PROT 7.1 g/dl (6.4-8.2)
[2019-06-16] MEDS: clonazePAM 0.5 MG TABLET PO SCH ×3 (09:41→21:00)
[2019-06-16] MEDS: ASPIRIN 81 MG CHEWABLE TABLETS PO SCH (09:42)
[2019-06-16] MEDS: CARVEDILOL 3.125 MG TABLET (FP) PO SCH ×2 (09:42→21:00)
[2019-06-16] MEDS: DULoxetine HCL 30 MG CAPSULE.DR PO SCH ×2 (09:42→20:59)
[2019-06-16] MEDS: TOPIRAMATE 25 MG TABLET (FP) PO SCH ×2 (09:42→20:59)
[2019-06-16] MEDS: GABAPENTIN 300 MG CAPSULE (FP) PO SCH ×4 (09:42→21:02)
[2019-06-16] MEDS: PRAMIPEXOLE DIHYDROCHLORIDE 0.25 MG TABLET PO SCH ×2 (09:43→21:01)
--- NOTE | 2019-06-16 10:17 | CONSULT ---
- Consultation REQUESTING PROVIDER: Reyna Trejo MD CONSULT REQUEST: We have been asked to surgically evaluate this patient for "borderline distended gallbladder on CT". PCP:Stevo Heredia MD HISTORY OF PRESENT ILLNESS: TAHIRA who is a 54y/o WF wCAD (sp CA), CHF(EF 35%), NIDDM, nephrolithiasis, HTN,HLD and anxiety/depression who presented with complaints of worsening chest pain. Patient states that she had intermittent chest pain rating to the back for the past week however the past day has been constant and more severe. Patient notes that the pain radiates down to her leg states that she also has worsening appetite and has not eaten or drank anything for the last couple of days. Patient denies any fever, chills. Patient denies any dysuria but notes she has been urinating less than usual. Patient denies any diarrhea, BPR. She has had an extensive imaging w/u since admisson and I have asked to comment on the imaging findings w/r/t her gallbladder; of note in the past she has had a POC US in the ED which was negative for significant gallbladder pathology. She has been tolerating a diet since admission but tells me she has epigastric and RUQ pain ??. PMHx: as noted above. PSHx: Home Medications Medication Instructions Recorded Atorvastatin Ca [Lipitor] 40 mg PO HS 04/15/16 Gabapentin 600 mg PO QID 04/15/16 Topiramate 50 mg PO BID 04/15/16 Buspirone HCl 15 mg PO TID 11/07/17 Tizanidine HCl 2 mg PO TID PRN 11/07/17 Carvedilol [Coreg -] 3.125 mg PO BID #60 tablet 11/09/17 Duloxetine HCl [Cymbalta] 30 mg PO BID 12/01/18 Clonazepam [Klonopin] 1 mg PO BID 06/14/19 Metformin HCl [Glucophage] 1,000 mg PO BID 06/14/19 Pramipexole Di-HCl [Mirapex] 0.25 mg PO BID 06/14/19 Sitagliptin Phosphate [Januvia] 100 mg PO DAILY 06/14/19 Tramadol HCl [Tramadol HCl ER] 200 mg PO DAILY 06/14/19 clonazePAM [Klonopin -] 0.5 mg PO DAILY 06/14/19 traZODone HCL 200 mg PNB HS 06/15/19 Allergies Allergy/AdvReac Type Severity Reaction Status Date / Time No Known Allergies Allergy Verified 06/14/19 07:24 REVIEW OF SYSTEMS: CONSTITUTIONAL: Absent: fever, chills, diaphoresis, generalized weakness, malaise, loss of appetite, weight change CARDIOVASCULAR: Present: chest pain,palpitations, irregular heart rate, lightheadedness, RESPIRATORY: Absent: cough, shortness of breath, dyspnea with exertion, wheezing, stridor, hemoptysis GASTROINTESTINAL: Absent: abdominal pain, abdominal distension, nausea, vomiting, diarrhea, constipation, melena, hematochezia GENITOURINARY: Present: dysuria, frequency MUSCULOSKELETAL: Absent: myalgia, arthralgia, joint swelling, back pain, neck pain SKIN: Absent: rash, itching, pallor HEMATOLOGIC/IMMUNOLOGIC: Absent: easy bleeding, easy bruising, lymphadenopathy NEUROLOGIC: Absent: headache, focal weakness, paresthesias, dizziness, unsteady gait, seizure, mental status changes, bladder or bowel incontinence PSYCHIATRIC: Present: anxiety, depression, . PHYSICAL EXAM: GENERAL: Awake, alert, and fully oriented, in no acute distress. HEAD: Normal with no signs of trauma. EYES: PERRL, sclera anicteric, conjunctiva clear. NECK: Normal ROM, supple without lymphadenopathy, JVD, or masses. ABDOMEN: Soft, nontender, not distended, normoactive bowel sounds, no guarding, no rebound, no masses. No organomegaly. MUSCULOSKELETAL: Normal ROM at all joints. No bony deformities or tenderness. No CVA tenderness. UPPER EXTREMITIES: 2+ pulses, warm, well-perfused. No cyanosis. Cap refill <2 seconds. No peripheral edema. LOWER EXTREMITIES: 2+ pulses, warm, well-perfused. No calf tenderness. No peripheral edema. NEUROLOGICAL: Normal speech, gait not observed. PSYCH: Cooperative. Good eye contact. Appropriate mood and affect. SKIN: Warm, dry, normal turgor, no rashes or lesions noted. Vital Signs Temperature 98.1 F 06/16/19 02:00 Pulse Rate 54 L 06/16/19 06:00 Respiratory Rate 20 06/16/19 06:00 Blood Pressure 98/54 L 06/16/19 06:00 O2 Sat by Pulse Oximetry (%) 98 06/16/19 03:00 Lab Results WBC 4.4 K/mm3 (4.0-10.0) 06/15/19 06:15 RBC 3.73 M/mm3 (3.60-5.2) 06/15/19 06:15 Hgb 11.5 GM/dL (10.7-15.3) 06/15/19 06:15 Hct 33.4 % (32.4-45.2) D 06/15/19 06:15 MCV 89.7 fl (80-96) 06/15/19 06:15 MCHC 34.5 g/dl (32.0-36.0) 06/15/19 06:15 RDW 12.6 % (11.6-15.6) 06/15/19 06:15 Plt Count 181 K/MM3 (134-434) 06/15/19 06:15 Sodium 141 mmol/L (136-145) 06/16/19 06:40 Potassium 4.2 mmol/L (3.5-5.1) 06/16/19 06:40 Chloride 108 mmol/L (98-107) H 06/16/19 06:40 Carbon Dioxide 26 mmol/L (21-32) 06/16/19 06:40 Anion Gap 7 MMOL/L (8-16) L 06/16/19 06:40 BUN 11.8 mg/dL (7-18) 06/16/19 06:40 Creatinine 0.7 mg/dL (0.55-1.3) 06/16/19 06:40 Random Glucose 89 mg/dL (74-106) 06/16/19 06:40 Calcium 9.1 mg/dL (8.5-10.1) 06/16/19 06:40 INR 1.02 (0.83-1.09) 06/15/19 06:15 All imaging findings to date are unremarkable and specifically an US of the gallbladder which I had requested. IMP: ?? biliary dyskinesia vs. other PLAN: Would suggest HIDA to check gallbladder EF to look for possible biliary dyskinesia and GI evaluation as well. Damion Napier MD FACS
--- NOTE | 2019-06-16 12:10 | PN ---
Teaching Attending Note Name of Resident: Kenji Reed ATTENDING PHYSICIAN STATEMENT I saw and evaluated the patient. I reviewed the resident's note and discussed the case with the resident. I agree with the resident's findings and plan as documented. SUBJECTIVE: complains of generalized abdominal discomfort with nausea - no vomiting/diarrhea/fever/chills. Reports occasional lightheadedness on walking. No CP/palpitations/SOB. OBJECTIVE: Afebrile, Hemodynamically Stable. Flat affect. Orthostatic Vitals negative. Last Vital Signs Temp Pulse Resp BP Pulse Ox 97.4 F L 59 L 18 101/61 98 06/16/19 10:00 06/16/19 10:00 06/16/19 10:00 06/16/19 10:00 06/16/19 09:00 Neuro - AAO x 3. Tone/Power normal. Heart - S1, S2, RRR Lungs - clear to auscultation Abdomen - soft, mild generalized tenderness. Bowel Sounds normal. Extremities - no calf tenderness. Laboratory Results - last 24 hr 06/15/19 06/15/19 06/16/19 17:16 21:18 06:21 Sodium Potassium Chloride Carbon Dioxide Anion Gap BUN Creatinine Est GFR (CKD-EPI)AfAm Est GFR (CKD-EPI)NonAf POC Glucometer 86 134 83 Random Glucose Calcium Total Bilirubin AST ALT Alkaline Phosphatase Total Protein Albumin 06/16/19 06/16/19 06:40 11:13 Sodium 141 Potassium 4.2 Chloride 108 H Carbon Dioxide 26 Anion Gap 7 L BUN 11.8 Creatinine 0.7 Est GFR (CKD-EPI)AfAm 113.05 Est GFR (CKD-EPI)NonAf 97.54 POC Glucometer 118 Random Glucose 89 Calcium 9.1 Total Bilirubin 0.6 AST 11 L ALT 14 Alkaline Phosphatase 65 Total Protein 7.1 Albumin 4.4 Current Medications Generic Name Dose Route Start Last Admin Trade Name Freq PRN Reason Stop Dose Admin Acetaminophen 650 mg 06/14/19 16:41 06/16/19 08:01 Tylenol - PO 650 mg Q6H PRN Administration PAIN Aspirin 81 mg 06/15/19 10:00 06/16/19 09:42 Asa - PO 81 mg DAILY GABI Administration Atorvastatin Calcium 40 mg 06/14/19 22:00 06/15/19 21:20 Lipitor - PO 40 mg HS GABI Administration Buspirone HCl 15 mg 06/14/19 22:00 06/16/19 06:22 Buspar - PO 15 mg TID GABI Administration Carvedilol 3.125 mg 06/14/19 22:00 06/16/19 09:42 Coreg - PO 3.125 mg BID GABI Administration Clonazepam 1 mg 06/15/19 22:00 06/16/19 09:41 Klonopin - PO 1 mg BID GABI Administration Clonazepam 0.5 mg 06/16/19 12:00 06/16/19 12:06 Klonopin - PO 0.5 mg DAILY@1200 GABI Administration Duloxetine HCl 30 mg 06/14/19 22:00 06/16/19 09:42 Cymbalta - PO 30 mg BID GABI Administration Gabapentin 600 mg 06/14/19 18:00 06/16/19 09:42 Neurontin - PO 600 mg QID GABI Administration Heparin Sodium (Porcine) 5,000 unit 06/14/19 22:00 06/16/19 06:25 Heparin - SQ 5,000 unit TID GABI Administration Pramipexole Dihydrochloride 0.25 mg 06/14/19 22:00 06/16/19 09:43 Mirapex - PO 0.25 mg BID GABI Administration Tizanidine HCl 2 mg 06/14/19 16:36 06/15/19 06:54 Tizanidine Hcl PO 2 mg BID PRN Administration PAIN LEVEL 1-5 Topiramate 50 mg 06/14/19 22:00 06/16/19 09:42 Topamax - PO 50 mg BID GABI Administration Home Medications Medication Instructions Recorded Atorvastatin Ca [Lipitor] 40 mg PO HS 04/15/16 Gabapentin 600 mg PO QID 04/15/16 Topiramate 50 mg PO BID 04/15/16 Buspirone HCl 15 mg PO TID 11/07/17 Tizanidine HCl 2 mg PO TID PRN 11/07/17 Carvedilol [Coreg -] 3.125 mg PO BID #60 tablet 11/09/17 Duloxetine HCl [Cymbalta] 30 mg PO BID 12/01/18 Clonazepam [Klonopin] 1 mg PO BID 06/14/19 Metformin HCl [Glucophage] 1,000 mg PO BID 06/14/19 Pramipexole Di-HCl [Mirapex] 0.25 mg PO BID 06/14/19 Sitagliptin Phosphate [Januvia] 100 mg PO DAILY 06/14/19 Tramadol HCl [Tramadol HCl ER] 200 mg PO DAILY 06/14/19 clonazePAM [Klonopin -] 0.5 mg PO DAILY 06/14/19 traZODone HCL 200 mg PNB HS 06/15/19 ASSESSMENT/PLAN: 54 year old female with history of Depression/Anxiety, DM 2, Chronic Systolic CHF/ischemic cardiomyopathy/HFrEF (last EF 35%), CAD s/p LAD PCI x 1 in 2010, HLD, Anorexia, COPD (not on home o2), ISELA (not compliant with CPAP), admitted with multitude of symptoms including chest pain, back pain, left shoulder pain, "stomach pain", left leg pain. 1. Non-specific generalized chest and abdominal pain CT C/A/P - no acute findings, borderline distended GB. ACS and Aortic dissection excluded given Hx of CAD s/p PCI/Stent - Continue ASA , BB, Statin. Evaluated and cleared by Cardiology CT A/P shows borderline distended GB, no other signs of cholecystitis, US Abdomen - shows no evidence of cholestasis or cholecystitis or biliary tract dilatation. Surgery consulted - recommends HIDA for possible gallbladder dyskinesia and GI eval. GI consulted. LFTs normal. 2. NEYMAR - resolved 3. DM 2 - Hold Metformin, Sitagliptin. Novolog as per sliding scale. 4. Chronic Systolic CHF (EF 35%) s/p AICD - Echo shows depressed EF with moderate global hypokinesis. Continue BB. Needs Cardiology follow up and [employer] AICD interrogation as outpatient. BP borderline. Orthostatic vitals negative. For re-introduction of YOGESH/Entresto as out-patient. 5. Depression/Anxiety/Eating disorder - Continue Clonazepam, Cymbalta, Tizanidine, Buspirone, Topiramate. Out-patient Psychiatry follow up. 6. COPD - Stable. No evidence of exacerbation. 7. Hx Chronic Pain/RLS - Patient has chronic pain - on Mirapex, Gabapentin 8. HLD - on Lipitor. DVT Px - Heparin SQ
--- NOTE | 2019-06-16 12:55 | PN ---
Progress Note, Physician Chief Complaint: Events noted Feels better History of Present Illness: Patient was seen and examined. Awake and alert. Chart was reviewed Denies chest pain currently. Denies SOB or palpitations - Current Medication List Current Medications: Active Medications Acetaminophen (Tylenol -) 650 mg PO Q6H PRN PRN Reason: PAIN Last Admin: 06/16/19 08:01 Dose: 650 mg Aspirin (Asa -) 81 mg PO DAILY [facility] Last Admin: 06/16/19 09:42 Dose: 81 mg Atorvastatin Calcium (Lipitor -) 40 mg PO HS [facility] Last Admin: 06/15/19 21:20 Dose: 40 mg Buspirone HCl (Buspar -) 15 mg PO TID [facility] Last Admin: 06/16/19 06:22 Dose: 15 mg Carvedilol (Coreg -) 3.125 mg PO BID [facility] Last Admin: 06/16/19 09:42 Dose: 3.125 mg Clonazepam (Klonopin -) 1 mg PO BID [facility] Last Admin: 06/16/19 09:41 Dose: 1 mg Clonazepam (Klonopin -) 0.5 mg PO DAILY@1200 [facility] Last Admin: 06/16/19 12:06 Dose: 0.5 mg Duloxetine HCl (Cymbalta -) 30 mg PO BID [facility] Last Admin: 06/16/19 09:42 Dose: 30 mg Gabapentin (Neurontin -) 600 mg PO QID [facility] Last Admin: 06/16/19 09:42 Dose: 600 mg Heparin Sodium (Porcine) (Heparin -) 5,000 unit SQ TID [facility] Last Admin: 06/16/19 06:25 Dose: 5,000 unit Pramipexole Dihydrochloride (Mirapex -) 0.25 mg PO BID [facility] Last Admin: 06/16/19 09:43 Dose: 0.25 mg Tizanidine HCl (Tizanidine Hcl) 2 mg PO BID PRN PRN Reason: PAIN LEVEL 1-5 Last Admin: 06/15/19 06:54 Dose: 2 mg Topiramate (Topamax -) 50 mg PO BID [facility] Last Admin: 06/16/19 09:42 Dose: 50 mg - Objective Vital Signs: Vital Signs Temperature 97.4 F L 06/16/19 10:00 Pulse Rate 59 L 06/16/19 10:00 Respiratory Rate 18 06/16/19 10:00 Blood Pressure 101/61 06/16/19 10:00 O2 Sat by Pulse Oximetry (%) 98 06/16/19 09:00 Cardiovascular: Yes: Regular Rate and Rhythm, S1, S2 Respiratory: Yes: CTA Bilaterally Gastrointestinal: Yes: Normal Bowel Sounds, Soft. No: Tenderness Edema: No Additional Findings/Remarks: - Review of Systems Constitutional: denies: Chills, Fever Cardiovascular: (+) Chest Pain, denies: Palpitations, Shortness of Breath Respiratory: denies: Cough, Hemoptysis, Orthopnea, PND, SOB, SOB on Exertion Gastrointestinal: reports: Abdominal Pain, denies: Diarrhea. denies: Melena, Nausea, Rectal Bleeding, Vomiting Genitourinary: denies: Dysuria, Hematuria Musculoskeletal: (+) Back Pain, Joint Pain Neurological: denies: Dizziness, Headache, Seizure, Syncope Labs: CBC, BMP 06/15/19 06:15 06/16/19 06:40 INR, PTT INR 1.02 (0.83-1.09) 06/15/19 06:15 Problem List - Problems (1) Abdominal pain Code(s): R10.9 - UNSPECIFIED ABDOMINAL PAIN Qualifiers: Abdominal location: epigastric Qualified Code(s): R10.13 - Epigastric pain (2) Chest pain Code(s): R07.9 - CHEST PAIN, UNSPECIFIED Qualifiers: Chest pain type: unspecified Qualified Code(s): R07.9 - Chest pain, unspecified (3) Back pain Code(s): M54.9 - DORSALGIA, UNSPECIFIED Qualifiers: Back pain location: low back pain Chronicity: acute Back pain laterality : unspecified Sciatica presence: without sciatica Qualified Code(s): M54.5 - Low back pain (4) Acute diverticulitis of intestine Code(s): K57.92 - DVTRCLI OF INTEST, PART UNSP, W/O PERF OR ABSCESS W/O BLEED (5) Anemia Code(s): D64.9 - ANEMIA, UNSPECIFIED (6) Anxiety Code(s): F41.9 - ANXIETY DISORDER, UNSPECIFIED (7) CAD (coronary artery disease) Code(s): I25.10 - ATHSCL HEART DISEASE OF [place] CORONARY ARTERY W/O ANG PCTRS Qualifiers: Coronary Disease-Associated Artery/Lesion type: [place] artery [place] vs. transplanted heart: [place] heart Associated angina: without angina Qualified Code(s): I25.10 - Atherosclerotic heart disease of [place] coronary artery without angina pectoris (8) CHF (congestive heart failure), NYHA class I Code(s): I50.9 - HEART FAILURE, UNSPECIFIED Qualifiers: Congestive heart failure type: systolic Congestive heart failure chronicity : chronic Qualified Code(s): I50.22 - Chronic systolic (congestive) heart failure (9) COPD (chronic obstructive pulmonary disease) Code(s): J44.9 - CHRONIC OBSTRUCTIVE PULMONARY DISEASE, UNSPECIFIED Qualifiers: COPD type: unspecified COPD Qualified Code(s): J44.9 - Chronic obstructive pulmonary disease, unspecified (10) Neurocardiogenic syncope Code(s): R55 - SYNCOPE AND COLLAPSE (11) Renal insufficiency Code(s): N28.9 - DISORDER OF KIDNEY AND URETER, UNSPECIFIED (12) Chronic left ventricular systolic dysfunction Code(s): I51.9 - HEART DISEASE, UNSPECIFIED (13) Hyperlipidemia Code(s): E78.5 - HYPERLIPIDEMIA, UNSPECIFIED Qualifiers: Hyperlipidemia type: pure hypercholesterolemia Qualified Code(s): E78.00 - Pure hypercholesterolemia, unspecified; E78.0 - Pure hypercholesterolemia (14) Hypertension Code(s): I10 - ESSENTIAL (PRIMARY) HYPERTENSION Qualifiers: Hypertension type: essential hypertension Qualified Code(s): I10 - Essential (primary) hypertension (15) Single implantable cardioverter-defibrillator (ICD) in situ Code(s): Z95.810 - PRESENCE OF AUTOMATIC (IMPLANTABLE) CARDIAC DEFIBRILLATOR (16) Sleep apnea Code(s): G47.30 - SLEEP APNEA, UNSPECIFIED Qualifiers: Sleep apnea type: obstructive Qualified Code(s): G47.33 - Obstructive sleep apnea (adult) (pediatric) (17) Status post insertion of drug-eluting stent into left anterior descending artery for coronary artery disease Code(s): Z98.61 - CORONARY ANGIOPLASTY STATUS (18) Status post myocardial infarction of anterior wall Code(s): I25.2 - OLD MYOCARDIAL INFARCTION Assessment/Plan 1. Chest pain, ruled out 2. CAD post PCI/stent, angina pectoris, stable 3. NEYMAR resolved 4. Ischemic cardiomyopathy with history of failure post prophylactic ICD implant , euvolemic Neurocardiogenic syncope +/- orthostatic syncope with recurrence 5. HTN 6. DM 7. Hypercholesterolemia 8. COPD 9. OSAS noncompliant with CPAP 10. Depression/anxiety/eating disorder PLAN: 1. Continue Carvedilol 3.125 mg BID as tolerated 2. Recommend resumption of Prinivil hemodynamics permitting once renal function stablizes 3. Continue ASA 81 mg QD 4. Continue Lipitor 40 mg QHS 5. Surgery input noted. Await further work up for gallstones 6. F/u in office [phone] and [employer] ICD interrogation as outpatient Marcus Kemp MD
[2019-06-16] MEDS: TIZANIDINE HCL 2 MG TABLET PO PRN (14:59)
--- NOTE | 2019-06-16 17:58 | PN ---
Physical Exam: SUBJECTIVE: Patient seen and examined at bedside. No acute events overnight. OBJECTIVE: Vital Signs Period Temp Pulse Resp BP Sys/Riley Pulse Ox Last 24 Hr 97.4 F-98.2 F 54-61 18-20 98-112/54-69 98-98 GENERAL: NAD HEAD: Atraumatic Normocephalic EYES: EOMI Sclera Clear. ENT: MMM NECK: Trachea midline, full range of motion, supple. LUNGS: CTA b/l HEART: RRR S1S2 ABDOMEN: NDNT no guarding or rigidity EXTREMITIES: No CCE NEUROLOGICAL: Cranial nerves II through XII grossly intact. PSYCH: Normal mood, normal affect. Laboratory Results - last 24 hr 06/15/19 06/16/19 06/16/19 21:18 06:21 06:40 Sodium 141 Potassium 4.2 Chloride 108 H Carbon Dioxide 26 Anion Gap 7 L BUN 11.8 Creatinine 0.7 Est GFR (CKD-EPI)AfAm 113.05 Est GFR (CKD-EPI)NonAf 97.54 POC Glucometer 134 83 Random Glucose 89 Calcium 9.1 Total Bilirubin 0.6 AST 11 L ALT 14 Alkaline Phosphatase 65 Total Protein 7.1 Albumin 4.4 06/16/19 06/16/19 11:13 16:18 Sodium Potassium Chloride Carbon Dioxide Anion Gap BUN Creatinine Est GFR (CKD-EPI)AfAm Est GFR (CKD-EPI)NonAf POC Glucometer 118 140 Random Glucose Calcium Total Bilirubin AST ALT Alkaline Phosphatase Total Protein Albumin Active Medications Generic Name Dose Route Start Last Admin Trade Name Freq PRN Reason Stop Dose Admin Acetaminophen 650 mg 06/14/19 16:41 06/16/19 14:53 Tylenol - PO 650 mg Q6H PRN Administration PAIN Aspirin 81 mg 06/15/19 10:00 06/16/19 09:42 Asa - PO 81 mg DAILY GABI Administration Atorvastatin Calcium 40 mg 06/14/19 22:00 06/15/19 21:20 Lipitor - PO 40 mg HS GABI Administration Buspirone HCl 15 mg 06/14/19 22:00 06/16/19 14:54 Buspar - PO 15 mg TID GABI Administration Carvedilol 3.125 mg 06/14/19 22:00 06/16/19 09:42 Coreg - PO 3.125 mg BID GABI Administration Clonazepam 1 mg 06/15/19 22:00 06/16/19 09:41 Klonopin - PO 1 mg BID GABI Administration Clonazepam 0.5 mg 06/16/19 12:00 06/16/19 12:06 Klonopin - PO 0.5 mg DAILY@1200 GABI Administration Duloxetine HCl 30 mg 06/14/19 22:00 06/16/19 09:42 Cymbalta - PO 30 mg BID GABI Administration Gabapentin 600 mg 06/14/19 18:00 06/16/19 09:42 Neurontin - PO 600 mg QID GABI Administration Heparin Sodium (Porcine) 5,000 unit 06/14/19 22:00 06/16/19 14:54 Heparin - SQ 5,000 unit TID GABI Administration Pramipexole Dihydrochloride 0.25 mg 06/14/19 22:00 06/16/19 09:43 Mirapex - PO 0.25 mg BID GABI Administration Tizanidine HCl 2 mg 06/14/19 16:36 06/16/19 14:59 Tizanidine Hcl PO 2 mg BID PRN Administration PAIN LEVEL 1-5 Topiramate 50 mg 06/14/19 22:00 06/16/19 09:42 Topamax - PO 50 mg BID GABI Administration ASSESSMENT/PLAN: 54F with PMH of depression/anxiety, DMII, CHF, CAD, HLD, Anorexia, COPD, ISELA, admitted for chest pain, abdominal pain, left shoulder, and left leg pain. # Non-specific chest pain and generalized myalgias -CT Chest/Abdomen/Pelvis showed borderline distended Gallbladder. No aortic dissection or aneurysm present. -Continue ASA 81 mg PO -Continue Coreg 3.125 PO BID -Will have pacemaker interrogated as outpatient. -Cardiology consulted, appreciate recs # Borderline distended gallbladder on CT Abdomen -Gallbladder U/S---> No sonographic evidence of cholelithiasis or acute cholecystitis -Surgery consulted, Recommends HIDA and GI evaluation # DM -Sliding Scale Insulin -patient having poor oral intake currently #Systolic CHF-EF 35% -BNP was 611 on admission -Echo shows depressed EF with moderate global hypokinesis. -Continue Coreg 3.125 PO BID -Orthostatic vitals negative #Depression/Anxiety/Eating Disorder -Patient has continued poor oral intake, will have outpatient psychiatry follow up. -Continue Clonazepam 1 mg PO BID -Continue Clonazepam 0.5 mg PO @ noon -Continue Cymbalta 30 mg PO BID -Continue Topimirate 50 mg PO BID -Continue Tizanidine 2 mg PO BID # Chronic Pain/RLS -Mirapex 0.25 mg PO BID -Gabapentin 600 mg QID #Hx of HLD -Continue Lipitor 40 mg HS F: Oral Hydration E: Monitor BMP N: Sodium restricted diet. Encourage oral intake DVT: Heparin 5000 unit TID SQ Visit type - Emergency Visit Emergency Visit: Yes ED Registration Date: 06/14/19 Care time: The patient presented to the Emergency Department on the above date and was hospitalized for further evaluation of their emergent condition. - New Patient This patient is new to me today: No - Critical Care Critical Care patient: No - Discharge Referral Referred to [facility] No ATTENDING PHYSICIAN STATEMENT I saw and evaluated the patient. I reviewed the resident's note and discussed the case with the resident. I agree with the resident's findings and plan as documented. SUBJECTIVE: OBJECTIVE: ASSESSMENT AND PLAN:
--- NOTE | 2019-06-16 19:03 | CONS ---
DATE OF CONSULTATION: DATE OF DICTATION: 06/16/2019 GASTROENTEROLOGY CONSULTATION Patient is a 54-year-old female with a past medical history of CAD, [place], CHF, ejection fraction 35%, [id number] diabetes, nephrolithiasis, hypertension, hyperlipidemia, anxiety and depression, who was admitted to the hospital with chest pain. She has had imaging studies and of concern, CT scan revealed a borderline distended gallbladder. As per the patient, she has had years of diffuse abdominal pain located in the epigastrium and lower quadrants, as well as occasional nausea and vomiting. She states at one point she had 2 straight months of diarrhea, followed by constipation. She also revealed a picture of a bloody bowel movement, which occurred some months ago. She states she does have a fisher reef net and had a colonoscopy as well as an upper endoscopy 5 years ago. She does not recall the name of the fisher reef net who saw her in the past. As per our records, she was seen by Dr. Chase in 2017, while she was hospitalized. Colonoscopy revealed sigmoid diverticulosis and grade 2 internal hemorrhoids, as well as external hemorrhoids at the time. She also had apparently an endoscopy. However, I am unable to locate that report in the EMR. She denies any other complaints at this time. PAST MEDICAL AND SURGICAL HISTORY: As noted in the HPI. HOME MEDICATIONS: Reviewed. Include Lipitor, gabapentin, topiramate, buspirone, carvedilol, Cymbalta, Klonopin, Glucophage, Mirapex, Januvia, tramadol, and trazodone. ALLERGIES: No known drug allergies. SOCIAL HISTORY: Does not drink, smoke or use drugs. FAMILY HISTORY: No history of GI or gynecological malignancy. REVIEW OF SYSTEMS: As per the HPI. PHYSICAL EXAMINATION: Vital Signs: Temperature 97, pulse 61, blood pressure 101/61, respirations 18, oxygen saturation 98% on room air. General: In no acute distress. HEENT: Anicteric sclerae. Cardiovascular: S1/S2. Regular rate and rhythm. Lungs: Bilaterally clear to auscultation. Abdomen: Soft and nontender. Extremities: No edema. LABORATORY DATA: White blood cell count 4, hemoglobin 11, hematocrit 33, MCV 89, platelet count 181. INR 1. Sodium 141, potassium 4.2, BUN 11, creatinine 0.7, glucose 118, total bilirubin 0.6, AST 11, ALT 14, alkaline phosphatase 65. Urine is negative. DIAGNOSTIC STUDIES: She had an ultrasound of the abdomen, which revealed no sonographic evidence of cholelithiasis or acute cholecystitis and no biliary duct dilatation. She had an abdomen and pelvis CTA on the , which revealed normal size and enhancement of the thoracic and abdominal aorta. No aneurysm or dissection. No enlarged mediastinal lymph nodes. Emphysematous change in the right apex. Borderline over-distended gallbladder. Left renal stone. Nonvisualization of the appendix. No evidence of small bowel obstruction. IMPRESSION: Diffuse abdominal pain, also with a history of hematochezia and alternating constipation and diarrhea in the past. RECOMMENDATION: To further evaluate her abdominal pain, would follow up her HIDA scan with CCK to exclude biliary dyskinesia as well as Surgery followup. She will also need an upper endoscopy, if that was not done in the past. There is no report of an upper endoscopy done in our EMR. Would treat her for now with PPI therapy, diet as tolerated. Her episodes hematochezia may be secondary to her hemorrhoids or diverticulosis, as illustrated on her colonoscopy which was done in 2017. Would hold off on repeating this test at this time. Further recommendations pending HIDA scan results. I will follow. DO KRIS PENA/[id number]
[2019-06-16] MEDS: ATORVASTATIN CA 40 MG TABLET (FP) PO SCH (20:59)
[2019-06-16] MEDS ORDERED: MELATONIN 5 MG TABLETS PO ONE (22:04)
[2019-06-17] MEDS: ACETAMINOPHEN 325 MG TABLET (FP) PO PRN ×2 (03:52→10:03)
[2019-06-17] MEDS ORDERED: PT OWN MED DRAWER 7, Y5N ONE ×4 (06:05→21:39)
[2019-06-17] MEDS: busPIRone HCL 5 MG TABLET PO SCH ×3 (06:10→21:46)
[2019-06-17] MEDS: HEPARIN NA (PORCINE) 5,000 UNITS/ML 1ML VIAL SQ SCH ×3 (06:10→21:46)
[2019-06-17] MEDS: TIZANIDINE HCL 2 MG TABLET PO PRN (06:16)
--- NOTE | 2019-06-17 07:39 | PN.GI ---
GI Progress Note Subjective: DOING OKAY THIS MORNING STILL WITH EPIGASTRIC DISCOMFORT AFTER EATING - Objective Vital Signs: Vital Signs Temperature 98.0 F 06/17/19 06:00 Pulse Rate 56 L 06/17/19 06:00 Respiratory Rate 20 06/17/19 06:00 Blood Pressure 103/72 06/17/19 06:00 O2 Sat by Pulse Oximetry (%) 98 06/16/19 22:00 Constitutional: Well Nourished, No Distress, Calm Eyes: Yes: WNL HENT: Yes: WNL Neck: Yes: WNL, Supple Cardiovascular: Yes: WNL, Regular Rate and Rhythm Respiratory: Yes: WNL, Regular, CTA Bilaterally Gastrointestinal Inspection: Yes: WNL ...Auscultate: Yes: Normoactive Bowel Sounds Extremities: Yes: WNL Edema: No Labs: CBC, BMP 06/15/19 06:15 06/16/19 06:40 INR, PTT INR 1.02 (0.83-1.09) 06/15/19 06:15 Problem List - Problems (1) Abdominal pain Assessment/Plan: F/U CCK HIDA FOR ? DYSKINESIA PPI DIET TOLERATED IF NEGATIVE WILL PLAN FOR DIAGNOSTIC EGD TO FURTHER EVALUATE HER EPIGASTRIC PAIN R/O PUD Code(s): R10.9 - UNSPECIFIED ABDOMINAL PAIN Qualifiers: Abdominal location: epigastric Qualified Code(s): R10.13 - Epigastric pain
[2019-06-17] MEDS: DULoxetine HCL 30 MG CAPSULE.DR PO SCH ×2 (09:55→21:45)
[2019-06-17] MEDS: GABAPENTIN 300 MG CAPSULE (FP) PO SCH ×4 (09:55→21:45)
[2019-06-17] MEDS: TOPIRAMATE 25 MG TABLET (FP) PO SCH ×2 (09:55→21:45)
[2019-06-17] MEDS: ASPIRIN 81 MG CHEWABLE TABLETS PO SCH (09:55)
[2019-06-17] MEDS: PRAMIPEXOLE DIHYDROCHLORIDE 0.25 MG TABLET PO SCH ×2 (09:56→21:46)
[2019-06-17] MEDS: clonazePAM 0.5 MG TABLET PO SCH ×3 (09:56→21:45)
--- NOTE | 2019-06-17 10:23 | PN ---
Progress Note, Physician Chief Complaint: Events noted Not in distress History of Present Illness: Patient was seen and examined. Awake and alert. Chart was reviewed Denies chest pain currently. Denies SOB or palpitations - Current Medication List Current Medications: Active Medications Acetaminophen (Tylenol -) 650 mg PO Q6H PRN PRN Reason: PAIN Last Admin: 06/17/19 10:03 Dose: 650 mg Aspirin (Asa -) 81 mg PO DAILY [facility] Last Admin: 06/17/19 09:55 Dose: 81 mg Atorvastatin Calcium (Lipitor -) 40 mg PO HS [facility] Last Admin: 06/16/19 20:59 Dose: 40 mg Buspirone HCl (Buspar -) 15 mg PO TID [facility] Last Admin: 06/17/19 06:10 Dose: 15 mg Carvedilol (Coreg -) 3.125 mg PO BID [facility] Last Admin: 06/16/19 21:00 Dose: 3.125 mg Clonazepam (Klonopin -) 1 mg PO BID [facility] Last Admin: 06/17/19 09:56 Dose: 1 mg Clonazepam (Klonopin -) 0.5 mg PO DAILY@1200 [facility] Last Admin: 06/16/19 12:06 Dose: 0.5 mg Duloxetine HCl (Cymbalta -) 30 mg PO BID [facility] Last Admin: 06/17/19 09:55 Dose: 30 mg Gabapentin (Neurontin -) 600 mg PO QID [facility] Last Admin: 06/17/19 09:55 Dose: 600 mg Heparin Sodium (Porcine) (Heparin -) 5,000 unit SQ TID [facility] Last Admin: 06/17/19 06:10 Dose: 5,000 unit Pramipexole Dihydrochloride (Mirapex -) 0.25 mg PO BID [facility] Last Admin: 06/17/19 09:56 Dose: 0.25 mg Tizanidine HCl (Tizanidine Hcl) 2 mg PO BID PRN PRN Reason: PAIN LEVEL 1-5 Last Admin: 06/17/19 06:16 Dose: 2 mg Topiramate (Topamax -) 50 mg PO BID [facility] Last Admin: 06/17/19 09:55 Dose: 50 mg - Objective Vital Signs: Vital Signs Temperature 98.2 F 06/17/19 09:53 Pulse Rate 57 L 06/17/19 09:53 Respiratory Rate 18 06/17/19 09:53 Blood Pressure 128/77 06/17/19 09:53 O2 Sat by Pulse Oximetry (%) 98 06/16/19 22:00 Eyes: Yes: PERRL HENT: Yes: Atraumatic Neck: Yes: Supple Cardiovascular: Yes: Regular Rate and Rhythm, S1, S2 Respiratory: Yes: CTA Bilaterally Gastrointestinal: Yes: Normal Bowel Sounds, Soft. No: Tenderness Edema: No Additional Findings/Remarks: - Review of Systems Constitutional: denies: Chills, Fever Cardiovascular: (+) Chest Pain, denies: Palpitations, Shortness of Breath Respiratory: denies: Cough, Hemoptysis, Orthopnea, PND, SOB, SOB on Exertion Gastrointestinal: reports: Abdominal Pain, denies: Diarrhea. denies: Melena, Nausea, Rectal Bleeding, Vomiting Genitourinary: denies: Dysuria, Hematuria Musculoskeletal: (+) Back Pain, Joint Pain Neurological: denies: Dizziness, Headache, Seizure, Syncope Labs: CBC, BMP 06/15/19 06:15 06/16/19 06:40 INR, PTT INR 1.02 (0.83-1.09) 06/15/19 06:15 Problem List - Problems (1) Abdominal pain Code(s): R10.9 - UNSPECIFIED ABDOMINAL PAIN Qualifiers: Abdominal location: epigastric Qualified Code(s): R10.13 - Epigastric pain (2) Chest pain Code(s): R07.9 - CHEST PAIN, UNSPECIFIED Qualifiers: Chest pain type: unspecified Qualified Code(s): R07.9 - Chest pain, unspecified (3) Back pain Code(s): M54.9 - DORSALGIA, UNSPECIFIED Qualifiers: Back pain location: low back pain Chronicity: acute Back pain laterality : unspecified Sciatica presence: without sciatica Qualified Code(s): M54.5 - Low back pain (4) Acute diverticulitis of intestine Code(s): K57.92 - DVTRCLI OF INTEST, PART UNSP, W/O PERF OR ABSCESS W/O BLEED (5) Anemia Code(s): D64.9 - ANEMIA, UNSPECIFIED (6) Anxiety Code(s): F41.9 - ANXIETY DISORDER, UNSPECIFIED (7) CAD (coronary artery disease) Code(s): I25.10 - ATHSCL HEART DISEASE OF [place] CORONARY ARTERY W/O ANG PCTRS Qualifiers: Coronary Disease-Associated Artery/Lesion type: [place] artery [place] vs. transplanted heart: [place] heart Associated angina: without angina Qualified Code(s): I25.10 - Atherosclerotic heart disease of [place] coronary artery without angina pectoris (8) CHF (congestive heart failure), NYHA class I Code(s): I50.9 - HEART FAILURE, UNSPECIFIED Qualifiers: Congestive heart failure type: systolic Congestive heart failure chronicity : chronic Qualified Code(s): I50.22 - Chronic systolic (congestive) heart failure (9) COPD (chronic obstructive pulmonary disease) Code(s): J44.9 - CHRONIC OBSTRUCTIVE PULMONARY DISEASE, UNSPECIFIED Qualifiers: COPD type: unspecified COPD Qualified Code(s): J44.9 - Chronic obstructive pulmonary disease, unspecified (10) Neurocardiogenic syncope Code(s): R55 - SYNCOPE AND COLLAPSE (11) Renal insufficiency Code(s): N28.9 - DISORDER OF KIDNEY AND URETER, UNSPECIFIED (12) Chronic left ventricular systolic dysfunction Code(s): I51.9 - HEART DISEASE, UNSPECIFIED (13) Hyperlipidemia Code(s): E78.5 - HYPERLIPIDEMIA, UNSPECIFIED Qualifiers: Hyperlipidemia type: pure hypercholesterolemia Qualified Code(s): E78.00 - Pure hypercholesterolemia, unspecified; E78.0 - Pure hypercholesterolemia (14) Hypertension Code(s): I10 - ESSENTIAL (PRIMARY) HYPERTENSION Qualifiers: Hypertension type: essential hypertension Qualified Code(s): I10 - Essential (primary) hypertension (15) Single implantable cardioverter-defibrillator (ICD) in situ Code(s): Z95.810 - PRESENCE OF AUTOMATIC (IMPLANTABLE) CARDIAC DEFIBRILLATOR (16) Sleep apnea Code(s): G47.30 - SLEEP APNEA, UNSPECIFIED Qualifiers: Sleep apnea type: obstructive Qualified Code(s): G47.33 - Obstructive sleep apnea (adult) (pediatric) (17) Status post insertion of drug-eluting stent into left anterior descending artery for coronary artery disease Code(s): Z98.61 - CORONARY ANGIOPLASTY STATUS (18) Status post myocardial infarction of anterior wall Code(s): I25.2 - OLD MYOCARDIAL INFARCTION Assessment/Plan 1. Chest pain syndrome 2. CAD post PCI/stent, angina pectoris, stable 3. NEYMAR resolved 4. Ischemic cardiomyopathy with history of failure post prophylactic ICD implant , euvolemic Neurocardiogenic syncope +/- orthostatic syncope with recurrence 5. HTN 6. DM 7. Hypercholesterolemia 8. COPD 9. OSAS noncompliant with CPAP 10. Depression/anxiety/eating disorder PLAN: 1. Continue Carvedilol 3.125 mg BID as tolerated 2. Resume Prinivil hemodynamics permitting once renal function stablizes 3. Continue ASA 81 mg QD 4. Continue Lipitor 40 mg QHS 5. Await HIDA scan as per surgery. GI input noted possible EGD 6. F/u in office [phone] and [employer] ICD interrogation as outpatient Marcus Kemp MD
[2019-06-17 10:46] VITALS: BMI 20.7
[2019-06-17] MEDS: CARVEDILOL 3.125 MG TABLET (FP) PO SCH ×2 (11:55→21:45)
--- NOTE | 2019-06-17 13:12 | PN ---
Progress Note (short form) - Note Progress Note: SUBJECTIVE: complains of ongoing abdominal discomfort with nausea, worse on eating - no vomiting/diarrhea/fever/chills. No CP/palpitations/SOB. Reports improving oral intake. OBJECTIVE: Afebrile, Hemodynamically Stable. Flat affect. Orthostatic Vitals negative. Last Vital Signs Temp Pulse Resp BP Pulse Ox 98.2 F 57 L 18 128/77 98 06/17/19 09:53 06/17/19 09:53 06/17/19 09:53 06/17/19 09:53 06/16/19 22:00 Neuro - AAO x 3. Tone/Power normal. Heart - S1, S2, RRR Lungs - clear to auscultation Abdomen - soft, mild generalized tenderness, worse in RUQ. Bowel Sounds normal. Extremities - no calf tenderness. Laboratory Results - last 24 hr 06/16/19 06/16/19 06/17/19 16:18 20:55 06:13 POC Glucometer 140 132 109 06/17/19 11:54 POC Glucometer 112 Current Medications Generic Name Dose Route Start Last Admin Trade Name Freq PRN Reason Stop Dose Admin Acetaminophen 650 mg 06/14/19 16:41 06/17/19 10:03 Tylenol - PO 650 mg Q6H PRN Administration PAIN Aspirin 81 mg 06/15/19 10:00 06/17/19 09:55 Asa - PO 81 mg DAILY [facility] Administration Atorvastatin Calcium 40 mg 06/14/19 22:00 06/16/19 20:59 Lipitor - PO 40 mg HS [facility] Administration Buspirone HCl 15 mg 06/14/19 22:00 06/17/19 06:10 Buspar - PO 15 mg TID [facility] Administration Carvedilol 3.125 mg 06/14/19 22:00 06/17/19 11:55 Coreg - PO 3.125 mg BID [facility] Administration Clonazepam 1 mg 06/15/19 22:00 06/17/19 09:56 Klonopin - PO 1 mg BID [facility] Administration Clonazepam 0.5 mg 06/16/19 12:00 06/17/19 11:58 Klonopin - PO 0.5 mg DAILY@1200 [facility] Administration Duloxetine HCl 30 mg 06/14/19 22:00 06/17/19 09:55 Cymbalta - PO 30 mg BID [facility] Administration Gabapentin 600 mg 06/14/19 18:00 06/17/19 09:55 Neurontin - PO 600 mg QID [facility] Administration Heparin Sodium (Porcine) 5,000 unit 06/14/19 22:00 06/17/19 06:10 Heparin - SQ 5,000 unit TID [facility] Administration Pramipexole Dihydrochloride 0.25 mg 06/14/19 22:00 06/17/19 09:56 Mirapex - PO 0.25 mg BID [facility] Administration Tizanidine HCl 2 mg 06/14/19 16:36 06/17/19 06:16 Tizanidine Hcl PO 2 mg BID PRN Administration PAIN LEVEL 1-5 Topiramate 50 mg 06/14/19 22:00 06/17/19 09:55 Topamax - PO 50 mg BID [facility] Administration Tramadol HCl 50 mg 06/17/19 12:42 Ultram - PO Q6H PRN PAIN LEVEL 6-10 Home Medications Medication Instructions Recorded Atorvastatin Ca [Lipitor] 40 mg PO HS 04/15/16 Gabapentin 600 mg PO QID 04/15/16 Topiramate 50 mg PO BID 04/15/16 Buspirone HCl 15 mg PO TID 11/07/17 Tizanidine HCl 2 mg PO TID PRN 11/07/17 Carvedilol [Coreg -] 3.125 mg PO BID #60 tablet 11/09/17 Duloxetine HCl [Cymbalta] 30 mg PO BID 12/01/18 Clonazepam [Klonopin] 1 mg PO BID 06/14/19 Metformin HCl [Glucophage] 1,000 mg PO BID 06/14/19 Pramipexole Di-HCl [Mirapex] 0.25 mg PO BID 06/14/19 Sitagliptin Phosphate [Januvia] 100 mg PO DAILY 06/14/19 Tramadol HCl [Tramadol HCl ER] 200 mg PO DAILY 06/14/19 clonazePAM [Klonopin -] 0.5 mg PO DAILY 06/14/19 traZODone HCL 200 mg PNB HS 06/15/19 ASSESSMENT/PLAN: 54 year old female with history of Depression/Anxiety, DM 2, Chronic Systolic CHF/ischemic cardiomyopathy/HFrEF (last EF 35%), s/p AICD, CAD s/p LAD PCI x 1 in 2010, HLD, Anorexia Nervosa, COPD (not on home o2), ISELA (not compliant with CPAP), Hx of euvolemic Neurocardiogenic syncope +/- orthostatic syncope, admitted with multitude of symptoms including chest pain, back pain, left shoulder pain, "stomach pain". 1. Non-specific generalized chest and abdominal pain CT C/A/P - no acute findings, borderline distended GB. ACS and Aortic dissection excluded given Hx of CAD s/p PCI/Stent - Continue ASA , BB, Statin. Evaluated and cleared by Cardiology - recommend out-patient Cardio follow up. CT A/P shows borderline distended GB, no other signs of cholecystitis, US Abdomen - shows no evidence of cholestasis or cholecystitis or biliary tract dilatation. Surgery and GI consulted - recommends HIDA with EF for possible biliary dyskinesia as well as consideration by GI for EGD. LFTs normal. HIDA 06/18/19 2. NEYMAR - resolved 3. DM 2 - Hold Metformin, Sitagliptin. Novolog as per sliding scale. 4. Chronic Systolic CHF (EF 35%) s/p AICD - Echo shows depressed EF with moderate global hypokinesis. Continue BB. Needs Cardiology follow up and [employer] AICD interrogation as outpatient. BP borderline. Orthostatic vitals negative. For re-introduction of YOGESH/Entresto as out-patient. 5. Depression/Anxiety/Eating disorder (Anorexia Nervosa) - Continue Clonazepam, Cymbalta, Tizanidine, Buspirone, Topiramate. Out-patient Psychiatry follow up. Nutrition consulted. 6. COPD - Stable. No evidence of exacerbation. 7. Hx Chronic Pain/RLS - Patient has chronic pain - on Mirapex, Gabapentin. resumed on Tramadol which she uses at home. Apparently previously on Osycodone which she obtained from Pain Management but has been off of it for several months. Will attempt to keep her off more potent opiate meds. Home Tramadol for now. 8. HLD - on Lipitor. DVT Px - Heparin SQ Visit type - Emergency Visit Emergency Visit: Yes ED Registration Date: 06/14/19 Care time: The patient presented to the Emergency Department on the above date and was hospitalized for further evaluation of their emergent condition. - New Patient This patient is new to me today: No - Critical Care Critical Care patient: No - Discharge Referral Referred to [facility] Med P.C.: No
[2019-06-17] MEDS: traMADol HCL 50 MG TABLET PO PRN ×2 (13:41→21:48)
[2019-06-17] MEDS: ATORVASTATIN CA 40 MG TABLET (FP) PO SCH (21:45)
[2019-06-17] MEDS ORDERED: MELATONIN 5 MG TABLETS PO PRN (22:38)
[2019-06-17] MEDS ORDERED: MELATONIN 5 MG TABLETS PO SCH (22:43)
[2019-06-17] MEDS: MELATONIN 5 MG TABLETS PO SCH (23:10)
[2019-06-18] MEDS: traMADol HCL 50 MG TABLET PO PRN ×3 (04:20→18:59)
[2019-06-18] MEDS: busPIRone HCL 5 MG TABLET PO SCH ×3 (06:31→21:36)
[2019-06-18] MEDS: HEPARIN NA (PORCINE) 5,000 UNITS/ML 1ML VIAL SQ SCH ×3 (06:32→21:35)
[2019-06-18] MEDS ORDERED: POLYETHYLENE GLYCOL 3350 119 GM BTL PO ONE (07:35)
[2019-06-18] MEDS ORDERED: DOCUSATE SODIUM 100 MG CAPSULE (FP) PO SCH (07:45)
[2019-06-18 10:12] LABS: BASO % 0.8 % (0-2.0); EOS % 2.9 % (0-4.5); HEMATOCRIT 38.8 % (32.4-45.2); HEMOGLOBIN 13.4 GM/dL (10.7-15.3); LYMPH % 32.8 % (8-40); MCH 30.7 pg (25.7-33.7); MCHC 34.5 g/dl (32.0-36.0); MEAN CELL VOLUME 89.2 fl (80-96); MEAN PLT VOLUME 8.7 fl (7.5-11.1); MONO % 6.5 % (3.8-10.2); PLATELET COUNT 226 K/MM3 (134-434); RBC 4.35 M/mm3 (3.60-5.2); RDW 12.3 % (11.6-15.6); WHITE BLOOD COUNT 7.6 K/mm3 (4.0-10.0)
[2019-06-18 10:41] LABS: ALBUMIN 4.5 g/dl (3.4-5.0); BILIRUBIN,TOTAL 0.6 mg/dL (0.2-1); BLOOD UREA NITROGEN 15.9 mg/dL (7-18); CALCIUM 9.2 mg/dL (8.5-10.1); CREATININE 0.8 mg/dL (0.55-1.3); POTASSIUM 3.7 mmol/L (3.5-5.1); TOT PROT 7.5 g/dl (6.4-8.2)
--- NOTE | 2019-06-18 11:27 | PN ---
Progress Note (short form) - Note Progress Note: GENERAL SURGERY No changes. Going for HIDA scan. Will continue following.
[2019-06-18] MEDS: clonazePAM 0.5 MG TABLET PO SCH ×3 (12:13→21:34)
[2019-06-18] MEDS: DULoxetine HCL 30 MG CAPSULE.DR PO SCH ×2 (12:13→21:35)
[2019-06-18] MEDS: TOPIRAMATE 25 MG TABLET (FP) PO SCH ×2 (12:15→21:34)
[2019-06-18] MEDS: GABAPENTIN 300 MG CAPSULE (FP) PO SCH ×4 (12:15→21:34)
[2019-06-18] MEDS: ASPIRIN 81 MG CHEWABLE TABLETS PO SCH (12:16)
[2019-06-18] MEDS: CARVEDILOL 3.125 MG TABLET (FP) PO SCH ×2 (12:20→21:35)
[2019-06-18] MEDS: PRAMIPEXOLE DIHYDROCHLORIDE 0.25 MG TABLET PO SCH ×2 (12:25→21:38)
--- NOTE | 2019-06-18 12:26 | PN ---
Progress Note, Physician History of Present Illness: Epigastric discomfort after eating, awaiting HIDA scan. - Current Medication List Current Medications: Active Medications Acetaminophen (Tylenol -) 650 mg PO Q6H PRN PRN Reason: PAIN Last Admin: 06/17/19 10:03 Dose: 650 mg Aspirin (Asa -) 81 mg PO DAILY [facility] Last Admin: 06/18/19 12:16 Dose: 81 mg Atorvastatin Calcium (Lipitor -) [address] [facility] Last Admin: 06/17/19 21:45 Dose: 40 mg Buspirone HCl (Buspar -) 15 mg PO TID [facility] Last Admin: 06/18/19 06:31 Dose: 15 mg Carvedilol (Coreg -) 3.125 mg PO BID [facility] Last Admin: 06/18/19 12:20 Dose: 3.125 mg Clonazepam (Klonopin -) 1 mg PO BID [facility] Last Admin: 06/18/19 12:13 Dose: 1 mg Clonazepam (Klonopin -) 0.5 mg PO DAILY@1200 [facility] Last Admin: 06/17/19 11:58 Dose: 0.5 mg Docusate Sodium (Colace -) 100 mg PO TID [facility] Last Admin: 06/18/19 12:15 Dose: 100 mg Duloxetine HCl (Cymbalta -) 30 mg PO BID [facility] Last Admin: 06/18/19 12:13 Dose: 30 mg Gabapentin (Neurontin -) 600 mg PO QID [facility] Last Admin: 06/18/19 12:15 Dose: 600 mg Heparin Sodium (Porcine) (Heparin -) 5,000 unit SQ TID [facility] Last Admin: 06/18/19 06:32 Dose: 5,000 unit Melatonin (Melatonin) [address] [facility] Last Admin: 06/17/19 23:10 Dose: 5 mg Pramipexole Dihydrochloride (Mirapex -) 0.25 mg PO BID [facility] Last Admin: 06/18/19 12:25 Dose: 0.25 mg Senna (Senna -) [address] [facility] Tizanidine HCl (Tizanidine Hcl) 2 mg PO BID PRN PRN Reason: PAIN LEVEL 1-5 Last Admin: 06/17/19 06:16 Dose: 2 mg Topiramate (Topamax -) 50 mg PO BID [facility] Last Admin: 06/18/19 12:15 Dose: 50 mg Tramadol HCl (Ultram -) 50 mg PO Q6H PRN PRN Reason: PAIN LEVEL 6-10 Last Admin: 06/18/19 12:19 Dose: 50 mg - Objective Vital Signs: Vital Signs Temperature 97.9 F 06/18/19 09:15 Pulse Rate 58 L 06/18/19 09:15 Respiratory Rate 19 06/18/19 09:15 Blood Pressure 115/63 06/18/19 09:15 O2 Sat by Pulse Oximetry (%) 99 06/18/19 09:00 Constitutional: Yes: No Distress, Calm, Thin Neck: Yes: Supple Cardiovascular: Yes: Regular Rate and Rhythm Respiratory: Yes: Regular, CTA Bilaterally Gastrointestinal: Yes: Normal Bowel Sounds, Soft Edema: No Labs: CBC, BMP 06/18/19 09:15 06/18/19 09:15 INR, PTT INR 1.02 (0.83-1.09) 06/15/19 06:15 Problem List - Problems (1) NEYMAR (acute kidney injury) Code(s): N17.9 - ACUTE KIDNEY FAILURE, UNSPECIFIED (2) Chest pain Code(s): R07.9 - CHEST PAIN, UNSPECIFIED Qualifiers: Chest pain type: unspecified Qualified Code(s): R07.9 - Chest pain, unspecified (3) Anorexia nervosa Code(s): F50.00 - ANOREXIA NERVOSA, UNSPECIFIED (4) CAD (coronary artery disease) Code(s): I25.10 - ATHSCL HEART DISEASE OF [place] CORONARY ARTERY W/O ANG PCTRS Qualifiers: Coronary Disease-Associated Artery/Lesion type: [place] artery [place] vs. transplanted heart: [place] heart Associated angina: without angina Qualified Code(s): I25.10 - Atherosclerotic heart disease of [place] coronary artery without angina pectoris (5) CHF (congestive heart failure), NYHA class I Code(s): I50.9 - HEART FAILURE, UNSPECIFIED Qualifiers: Congestive heart failure type: systolic Congestive heart failure chronicity : chronic Qualified Code(s): I50.22 - Chronic systolic (congestive) heart failure (6) Diabetes mellitus Code(s): E11.9 - TYPE 2 DIABETES MELLITUS WITHOUT COMPLICATIONS Qualifiers: Diabetes mellitus type: type 2 Diabetes mellitus snf insulin use: without salvage determiner use Diabetes mellitus complication status: with hyperglycemia Qualified Code(s): E11.65 - Type 2 diabetes mellitus with hyperglycemia (7) Neurocardiogenic syncope Code(s): R55 - SYNCOPE AND COLLAPSE (8) Chronic left ventricular systolic dysfunction Code(s): I51.9 - HEART DISEASE, UNSPECIFIED (9) Hyperlipidemia Code(s): E78.5 - HYPERLIPIDEMIA, UNSPECIFIED Qualifiers: Hyperlipidemia type: pure hypercholesterolemia Qualified Code(s): E78.00 - Pure hypercholesterolemia, unspecified; E78.0 - Pure hypercholesterolemia (10) Single implantable cardioverter-defibrillator (ICD) in situ Code(s): Z95.810 - PRESENCE OF AUTOMATIC (IMPLANTABLE) CARDIAC DEFIBRILLATOR (11) Status post insertion of drug-eluting stent into left anterior descending artery for coronary artery disease Code(s): Z98.61 - CORONARY ANGIOPLASTY STATUS (12) Status post myocardial infarction of anterior wall Code(s): I25.2 - OLD MYOCARDIAL INFARCTION Assessment/Plan 06/14/19: Echo: Moderate decreased LV systolic fxn, normal RV size and fxn, pacemaker in RV, tr TR 11/08/17 Echo: Large region of apical AK, moderate decreased LV systolic fxn, normal RV fxn, LVEF 35% Echocardiography dated 11/23 revealed LV mildly dilated with wall motion abnormality, EF mildly reduced, moderate MR and mild TR MPI study dated 11/22 revealed mildly reduced EF with apical fixed defect infarct [facility]& coronary angiography dated 11/23 revealed non-obstructive CAD, patent LAD stent, moderate decreased LV systolic function with LVEF 45% with severe anterior, hannah-lateral hypokinesia 1. Atypical chest pain syndrome, r/o biliary dyskinesia vs PUD 2. CAD post PCI/stent, angina pectoris, stable 3. NEYMAR resolved 4. Ischemic cardiomyopathy with history of failure post prophylactic ICD implant , euvolemic Neurocardiogenic syncope +/- orthostatic syncope with recurrence 5. HTN 6. DM 7. Hypercholesterolemia 8. COPD 9. OSAS noncompliant with CPAP 10. Depression/anxiety/eating disorder PLAN: 1. Continue Carvedilol 3.125 mg BID as tolerated 2. Resume Prinivil hemodynamics permitting once renal function stablizes 3. Continue ASA 81 mg QD 4. Continue Lipitor 40 mg QHS 5. Await HIDA scan results r/o biliary dyskinesia. GI input noted possible EGD r /o PUD 6. F/u in office [phone] and [employer] ICD interrogation as outpatient
[2019-06-18] MEDS ORDERED: DOCUSATE SODIUM 100 MG CAPSULE (FP) PO PRN (12:57)
--- NOTE | 2019-06-18 13:21 | PN ---
Teaching Attending Note Name of Resident: Reyna Trejo ATTENDING PHYSICIAN STATEMENT I saw and evaluated the patient. I reviewed the resident's note and discussed the case with the resident. I agree with the resident's findings and plan as documented with exceptions below. SUBJECTIVE: Patient seen and examined. abdominal pain, no chest pain or concerns. Anxious currently. OBJECTIVE: Vital Signs Period Temp Pulse Resp BP Sys/Riley Pulse Ox Last 24 Hr 97.4 F-98.6 F 50-68 17-20 95-115/63-70 97-99 Intake & Output 06/15/19 06/16/19 06/17/19 06/18/19 23:59 23:59 23:59 23:59 Intake Total 150 1370 1260 Balance 150 1370 1260 Weight 113 lb 9.6 oz 110 lb General: sitting in bed in no acute distress Neck: soft, supple Chest: CTAB, no rales or wheezing Abdomen:Soft, vague generalized tenderness, inconsistent exam when distracted, no RUQ tenderness, neg Carr's sign, pos bowel sounds Extremities: no edema Home Medications Medication Instructions Recorded Atorvastatin Ca [Lipitor] 40 mg PO HS 04/15/16 Gabapentin 600 mg PO QID 04/15/16 Topiramate 50 mg PO BID 04/15/16 Buspirone HCl 15 mg PO TID 11/07/17 Tizanidine HCl 2 mg PO TID PRN 11/07/17 Carvedilol [Coreg -] 3.125 mg PO BID #60 tablet 11/09/17 Duloxetine HCl [Cymbalta] 30 mg PO BID 12/01/18 Clonazepam [Klonopin] 1 mg PO BID 06/14/19 Metformin HCl [Glucophage] 1,000 mg PO BID 06/14/19 Pramipexole Di-HCl [Mirapex] 0.25 mg PO BID 06/14/19 Sitagliptin Phosphate [Januvia] 100 mg PO DAILY 06/14/19 Tramadol HCl [Tramadol HCl ER] 200 mg PO DAILY 06/14/19 clonazePAM [Klonopin -] 0.5 mg PO DAILY 06/14/19 traZODone HCL 200 mg PNB HS 06/15/19 Active Medications Acetaminophen (Tylenol -) 650 mg PO Q6H PRN PRN Reason: PAIN Last Admin: 06/17/19 10:03 Dose: 650 mg Aspirin (Asa -) 81 mg PO DAILY [facility] Last Admin: 06/18/19 12:16 Dose: 81 mg Atorvastatin Calcium (Lipitor -) 40 mg PO HS [facility] Last Admin: 06/17/19 21:45 Dose: 40 mg Buspirone HCl (Buspar -) 15 mg PO TID [facility] Last Admin: 06/18/19 06:31 Dose: 15 mg Carvedilol (Coreg -) 3.125 mg PO BID [facility] Last Admin: 06/18/19 12:20 Dose: 3.125 mg Clonazepam (Klonopin -) 1 mg PO BID [facility] Last Admin: 06/18/19 12:13 Dose: 1 mg Clonazepam (Klonopin -) 0.5 mg PO DAILY@1200 [facility] Last Admin: 06/17/19 11:58 Dose: 0.5 mg Docusate Sodium (Colace -) 100 mg PO BID PRN PRN Reason: CONSTIPATION Duloxetine HCl (Cymbalta -) 30 mg PO BID [facility] Last Admin: 06/18/19 12:13 Dose: 30 mg Gabapentin (Neurontin -) 600 mg PO QID [facility] Last Admin: 06/18/19 12:15 Dose: 600 mg Heparin Sodium (Porcine) (Heparin -) 5,000 unit SQ TID [facility] Last Admin: 06/18/19 06:32 Dose: 5,000 unit Melatonin (Melatonin) 5 mg PO HS [facility] Last Admin: 06/17/19 23:10 Dose: 5 mg Pramipexole Dihydrochloride (Mirapex -) 0.25 mg PO BID [facility] Last Admin: 06/18/19 12:25 Dose: 0.25 mg Tizanidine HCl (Tizanidine Hcl) 2 mg PO BID PRN PRN Reason: PAIN LEVEL 1-5 Last Admin: 06/17/19 06:16 Dose: 2 mg Topiramate (Topamax -) 50 mg PO BID [facility] Last Admin: 06/18/19 12:15 Dose: 50 mg Tramadol HCl (Ultram -) 50 mg PO Q6H PRN PRN Reason: PAIN LEVEL 6-10 Last Admin: 06/18/19 12:19 Dose: 50 mg Laboratory Results - last 24 hr 06/17/19 06/17/19 06/18/19 17:03 21:44 09:15 WBC 7.6 RBC 4.35 Hgb 13.4 Hct 38.8 D MCV 89.2 MCH 30.7 MCHC 34.5 RDW 12.3 Plt Count 226 D MPV 8.7 Absolute Neuts (auto) 4.3 Neutrophils % 57.0 Lymphocytes % 32.8 Monocytes % 6.5 Eosinophils % 2.9 Basophils % 0.8 Nucleated RBC % 0 Sodium Potassium Chloride Carbon Dioxide Anion Gap BUN Creatinine Est GFR (CKD-EPI)AfAm Est GFR (CKD-EPI)NonAf POC Glucometer 94 81 Random Glucose Calcium Total Bilirubin AST ALT Alkaline Phosphatase Total Protein Albumin TSH 06/18/19 06/18/19 09:15 12:11 WBC RBC Hgb Hct MCV MCH MCHC RDW Plt Count MPV Absolute Neuts (auto) Neutrophils % Lymphocytes % Monocytes % Eosinophils % Basophils % Nucleated RBC % Sodium 140 Potassium 3.7 Chloride 107 Carbon Dioxide 26 Anion Gap 8 BUN 15.9 Creatinine 0.8 Est GFR (CKD-EPI)AfAm 96.19 Est GFR (CKD-EPI)NonAf 83.00 POC Glucometer 212 Random Glucose 107 H Calcium 9.2 Total Bilirubin 0.6 AST 14 L ALT 19 Alkaline Phosphatase 66 Total Protein 7.5 Albumin 4.5 TSH 3.51 Microbiology 06/14/19 09:10 Blood - Peripheral Venous Blood Culture - Preliminary NO GROWTH OBTAINED AFTER 96 HOURS, INCUBATION TO CONTINUE FOR 1 DAYS. 06/14/19 09:10 Blood - Peripheral Venous Blood Culture - Preliminary NO GROWTH OBTAINED AFTER 96 HOURS, INCUBATION TO CONTINUE FOR 1 DAYS. 06/14/19 13:30 Urine - Urine Clean Catch Urine Culture - Final Citrobacter Farmeri ASSESSMENT AND PLAN: 54 yof with PMHx of NIDDM, HTN, ischemic cardiomyopathy, HFrEF (last EF 35%), CAD s/p LAD PCI x 1 in 2010, HLD, anorexia, and COPD (not on home o2), ISELA ( not on CPAP), admitted with chest pain, back/shoulder/abdominal and left leg pain -Chest pain -Abdominal Pain, r/o biliary etiology/Gastritis/GERD/constipation -Generalized pain syndrome with shoulder/leg pain -NEYMAR, resolved -Mild Non anion gap acidosis,?from renal dysfunction, resolved -NIDDM -HTN -ischemic cardiomyopathy/HFrEF (last EF 35%) -CAD s/p LAD PCI x 1 in 2010 -HLD -Anorexia -Generalized anxiety disorder -COPD not on home O2 -ISELA not on CPAP Plan: ACS ruled out, cardiology input noted. Continue medical management. Abdominal symptoms vague, inconsistent exam, no acute concerns. CBC/LFTs unremarkable. Low suspicion for acute process Surgery/GI input noted Follow up HIDA scan. Defer EGD to GI. PPI. Home clonazepam/tramadol/duloxetine/topamax. Outpatient psych follow up. PT eval noted SNF vs home with PT in 48 hours if w/u unrevealing and no new concerns Discussed with patient.
--- NOTE | 2019-06-18 13:50 | PN ---
Physical Exam: SUBJECTIVE: Patient seen and examined in the morning. No acute events overnight. No acute events on telemetry monitoring. No complaints of chest pain , shortness of breath, abdominal pain, nausea, vomiting, diarrhea. OBJECTIVE: Vital Signs Period Temp Pulse Resp BP Sys/Riley Pulse Ox Last 24 Hr 97.4 F-98.6 F 50-58 18-20 95-115/63-69 97-99 GENERAL: The patient is awake, alert, and fully oriented, in no acute distress. HEAD: Normal with no signs of trauma. EYES: PERRL, extraocular movements intact, sclera anicteric, conjunctiva clear. . ENT: Ears normal, nares patent, oropharynx clear without exudates NECK: Trachea midline, full range of motion, supple. LUNGS: Breath sounds equal, clear to auscultation bilaterally HEART: Regular rate and rhythm, S1, S2 without murmur, rub or gallop. ABDOMEN: Soft, nontender, nondistended, normoactive bowel sounds EXTREMITIES: 2+ pulses, warm, well-perfused, no edema. NEUROLOGICAL: Cranial nerves II through XII grossly intact. Normal speech PSYCH: Flat affect, decreased mood. SKIN: Warm, dry, normal turgor, no rashes or lesions noted Laboratory Results - last 24 hr 06/17/19 06/17/19 06/18/19 17:03 21:44 09:15 WBC 7.6 RBC 4.35 Hgb 13.4 Hct 38.8 D MCV 89.2 MCH 30.7 MCHC 34.5 RDW 12.3 Plt Count 226 D MPV 8.7 Absolute Neuts (auto) 4.3 Neutrophils % 57.0 Lymphocytes % 32.8 Monocytes % 6.5 Eosinophils % 2.9 Basophils % 0.8 Nucleated RBC % 0 Sodium Potassium Chloride Carbon Dioxide Anion Gap BUN Creatinine Est GFR (CKD-EPI)AfAm Est GFR (CKD-EPI)NonAf POC Glucometer 94 81 Random Glucose Calcium Total Bilirubin AST ALT Alkaline Phosphatase Total Protein Albumin TSH 06/18/19 06/18/19 09:15 12:11 WBC RBC Hgb Hct MCV MCH MCHC RDW Plt Count MPV Absolute Neuts (auto) Neutrophils % Lymphocytes % Monocytes % Eosinophils % Basophils % Nucleated RBC % Sodium 140 Potassium 3.7 Chloride 107 Carbon Dioxide 26 Anion Gap 8 BUN 15.9 Creatinine 0.8 Est GFR (CKD-EPI)AfAm 96.19 Est GFR (CKD-EPI)NonAf 83.00 POC Glucometer 212 Random Glucose 107 H Calcium 9.2 Total Bilirubin 0.6 AST 14 L ALT 19 Alkaline Phosphatase 66 Total Protein 7.5 Albumin 4.5 TSH 3.51 Active Medications Generic Name Dose Route Start Last Admin Trade Name Freq PRN Reason Stop Dose Admin Acetaminophen 650 mg 06/14/19 16:41 06/17/19 10:03 Tylenol - PO 650 mg Q6H PRN Administration PAIN Aspirin 81 mg 06/15/19 10:00 06/18/19 12:16 Asa - PO 81 mg DAILY [facility] Administration Atorvastatin Calcium 40 mg 06/14/19 22:00 06/17/19 21:45 Lipitor - PO 40 mg HS [facility] Administration Buspirone HCl 15 mg 06/14/19 22:00 06/18/19 06:31 Buspar - PO 15 mg TID [facility] Administration Carvedilol 3.125 mg 06/14/19 22:00 06/18/19 12:20 Coreg - PO 3.125 mg BID [facility] Administration Clonazepam 1 mg 06/15/19 22:00 06/18/19 12:13 Klonopin - PO 1 mg BID [facility] Administration Clonazepam 0.5 mg 06/16/19 12:00 06/17/19 11:58 Klonopin - PO 0.5 mg DAILY@1200 [facility] Administration Docusate Sodium 100 mg 06/18/19 12:57 Colace - PO BID PRN CONSTIPATION Duloxetine HCl 30 mg 06/14/19 22:00 06/18/19 12:13 Cymbalta - PO 30 mg BID [facility] Administration Gabapentin 600 mg 06/14/19 18:00 06/18/19 12:15 Neurontin - PO 600 mg QID [facility] Administration Heparin Sodium (Porcine) 5,000 unit 06/14/19 22:00 06/18/19 06:32 Heparin - SQ 5,000 unit TID [facility] Administration Melatonin 5 mg 06/17/19 23:00 06/17/19 23:10 Melatonin PO 5 mg HS [facility] Administration Multivitamins/Minerals/Vitamin C 1 tab 06/18/19 13:45 Tab-A-Vit - PO DAILY [facility] Pramipexole Dihydrochloride 0.25 mg 06/14/19 22:00 06/18/19 12:25 Mirapex - PO 0.25 mg BID [facility] Administration Tizanidine HCl 2 mg 06/14/19 16:36 06/17/19 06:16 Tizanidine Hcl PO 2 mg BID PRN Administration PAIN LEVEL 1-5 Topiramate 50 mg 06/14/19 22:00 06/18/19 12:15 Topamax - PO 50 mg BID [facility] Administration Tramadol HCl 50 mg 06/17/19 12:42 06/18/19 12:19 Ultram - PO 50 mg Q6H PRN Administration PAIN LEVEL 6-10 ASSESSMENT/PLAN: 54F with PMH of depression/anxiety, DMII, CHF, CAD, HLD, Anorexia, COPD, ISELA, admitted for chest pain, abdominal pain, left shoulder, and left leg pain. 1)Non-specific chest pain and generalized myalgias -CT Chest/Abdomen/Pelvis showed borderline distended Gallbladder. No aortic dissection or aneurysm present. -Continue ASA 81 mg PO -Continue Coreg 3.125 PO BID -Will have pacemaker interrogated as outpatient. -Cardiology consulted, appreciate recs 2)Borderline distended gallbladder on CT Abdomen -Gallbladder U/S was normal -HIDA scan showed no abnormalities. -EGD tomorrow. NPO after midnight -Surgery consulted, appreciate recs -GI consulted, appreciate recs 3)DM -Sliding Scale Insulin -patient having poor oral intake currently 4)CHF -BNP was 611 on admission -Echo shows depressed EF with moderate global hypokinesis. -Continue Coreg 3.125 PO BID -Orthostatic vitals negative 5)Depression/Anxiety/Eating Disorder -Patient has continued poor oral intake, will have outpatient psychiatry follow up. -Continue Clonazepam 1 mg PO BID -Continue Clonazepam 0.5 mg PO @ noon -Continue Cymbalta 30 mg PO BID -Continue Topimirate 50 mg PO BID -Continue Tizanidine 2 mg PO BID -Glucerna vanilla supplement 6) Chronic Pain/RLS -Mirapex 0.25 mg PO BID -Gabapentin 600 mg QID -Tramadol 50 mg PO Q6H 7)Hx of HLD -Continue Lipitor 40 mg HS F: Oral Hydration E: Monitor CMP N: NPO after midnight. DVT: Heparin 5000 unit TID SQ Visit type - Emergency Visit Emergency Visit: Yes ED Registration Date: 06/18/19 Care time: The patient presented to the Emergency Department on the above date and was hospitalized for further evaluation of their emergent condition. - New Patient This patient is new to me today: No - Critical Care Critical Care patient: No ATTENDING PHYSICIAN STATEMENT I saw and evaluated the patient. I reviewed the resident's note and discussed the case with the resident. I agree with the resident's findings and plan as documented. SUBJECTIVE: OBJECTIVE: ASSESSMENT AND PLAN:
[2019-06-18] MEDS: MULTIVITAMINS (DAILY MVI) TABLET (FP) PO SCH (15:11)
[2019-06-18] MEDS: ACETAMINOPHEN 325 MG TABLET (FP) PO PRN (15:15)
[2019-06-18] MEDS ORDERED: PT OWN MED DRAWER 7, Y5N ONE (21:07)
[2019-06-18] MEDS: ATORVASTATIN CA 40 MG TABLET (FP) PO SCH (21:35)
[2019-06-18] MEDS ORDERED: SENNOSIDES 8.6MG TABLET (FP) PO SCH (22:00)
[2019-06-18] MEDS: MELATONIN 5 MG TABLETS PO SCH (22:00)
[2019-06-19] MEDS: traMADol HCL 50 MG TABLET PO PRN ×3 (01:51→17:38)
[2019-06-19] MEDS: MELATONIN 5 MG TABLETS PO SCH (01:51)
[2019-06-19] MEDS: ACETAMINOPHEN 325 MG TABLET (FP) PO PRN ×2 (06:11→15:20)
[2019-06-19] MEDS: busPIRone HCL 5 MG TABLET PO SCH ×2 (06:11→15:14)
[2019-06-19] MEDS: HEPARIN NA (PORCINE) 5,000 UNITS/ML 1ML VIAL SQ SCH ×2 (06:11→15:13)
[2019-06-19] MEDS: TIZANIDINE HCL 2 MG TABLET PO PRN (06:11)
[2019-06-19 06:54] LABS: BASO % 0.4 % (0-2.0); EOS % 3.8 % (0-4.5); HEMATOCRIT 39.6 % (32.4-45.2); HEMOGLOBIN 13.4 GM/dL (10.7-15.3); LYMPH % 35.3 % (8-40); MCH 30.6 pg (25.7-33.7); MCHC 33.9 g/dl (32.0-36.0); MEAN PLT VOLUME 8.1 fl (7.5-11.1); MONO % 6.4 % (3.8-10.2); NEUT % 54.1 % (42.8-82.8); PLATELET COUNT 219 K/MM3 (134-434); RDW 12.4 % (11.6-15.6); WHITE BLOOD COUNT 6.8 K/mm3 (4.0-10.0)
[2019-06-19 07:18] LABS: ALBUMIN 4.2 g/dl (3.4-5.0); BILIRUBIN,TOTAL 0.6 mg/dL (0.2-1); BLOOD UREA NITROGEN 15.3 mg/dL (7-18); CALCIUM 9.5 mg/dL (8.5-10.1); CREATININE 0.8 mg/dL (0.55-1.3); POTASSIUM 3.9 mmol/L (3.5-5.1); TOT PROT 7.4 g/dl (6.4-8.2)
[2019-06-19] MEDS: DULoxetine HCL 30 MG CAPSULE.DR PO SCH (10:13)
[2019-06-19] MEDS: clonazePAM 0.5 MG TABLET PO SCH ×2 (10:13→15:13)
[2019-06-19] MEDS: TOPIRAMATE 25 MG TABLET (FP) PO SCH (10:13)
[2019-06-19] MEDS: PRAMIPEXOLE DIHYDROCHLORIDE 0.25 MG TABLET PO SCH (10:13)
[2019-06-19] MEDS: GABAPENTIN 300 MG CAPSULE (FP) PO SCH ×3 (10:14→17:29)
[2019-06-19] MEDS: MULTIVITAMINS (DAILY MVI) TABLET (FP) PO SCH (11:10)
--- NOTE | 2019-06-19 11:23 | PN ---
Progress Note, Physician Chief Complaint: Events noted Not in distress History of Present Illness: Patient was seen and examined. Awake and alert. Chart was reviewed Denies chest pain currently. Denies SOB or palpitations - Current Medication List Current Medications: Active Medications Acetaminophen (Tylenol -) 650 mg PO Q6H PRN PRN Reason: PAIN Last Admin: 06/19/19 06:11 Dose: 650 mg Aspirin (Asa -) 81 mg PO DAILY [facility] Last Admin: 06/18/19 12:16 Dose: 81 mg Atorvastatin Calcium (Lipitor -) 40 mg PO HS [facility] Last Admin: 06/18/19 21:35 Dose: 40 mg Buspirone HCl (Buspar -) 15 mg PO TID [facility] Last Admin: 06/19/19 06:11 Dose: 15 mg Carvedilol (Coreg -) 3.125 mg PO BID [facility] Last Admin: 06/18/19 21:35 Dose: 3.125 mg Clonazepam (Klonopin -) 1 mg PO BID [facility] Last Admin: 06/19/19 10:13 Dose: 1 mg Clonazepam (Klonopin -) 0.5 mg PO DAILY@1200 [facility] Last Admin: 06/18/19 15:12 Dose: 0.5 mg Docusate Sodium (Colace -) 100 mg PO BID PRN PRN Reason: CONSTIPATION Duloxetine HCl (Cymbalta -) 30 mg PO BID [facility] Last Admin: 06/19/19 10:13 Dose: 30 mg Gabapentin (Neurontin -) 600 mg PO QID [facility] Last Admin: 06/19/19 10:14 Dose: 600 mg Heparin Sodium (Porcine) (Heparin -) 5,000 unit SQ TID [facility] Last Admin: 06/19/19 06:11 Dose: 5,000 unit Melatonin (Melatonin) 5 mg PO [facility] Last Admin: 06/19/19 01:51 Dose: 5 mg Multivitamins/Minerals/Vitamin C (Tab-A-Vit -) 1 tab PO DAILY [facility] Last Admin: 06/19/19 11:10 Dose: 1 tab Pramipexole Dihydrochloride (Mirapex -) 0.25 mg PO BID [facility] Last Admin: 06/19/19 10:13 Dose: 0.25 mg Tizanidine HCl (Tizanidine Hcl) 2 mg PO BID PRN PRN Reason: PAIN LEVEL 1-5 Last Admin: 06/19/19 06:11 Dose: 2 mg Topiramate (Topamax -) 50 mg PO BID [facility] Last Admin: 06/19/19 10:13 Dose: 50 mg Tramadol HCl (Ultram -) 50 mg PO Q6H PRN PRN Reason: PAIN LEVEL 6-10 Last Admin: 06/19/19 11:09 Dose: 50 mg - Objective Vital Signs: Vital Signs Temperature 98.0 F 06/19/19 08:28 Pulse Rate 51 L 06/19/19 10:22 Respiratory Rate 18 06/19/19 10:22 Blood Pressure 107/72 06/19/19 10:22 O2 Sat by Pulse Oximetry (%) 99 06/18/19 20:48 Eyes: Yes: PERRL HENT: Yes: Atraumatic Neck: Yes: Supple Cardiovascular: Yes: Regular Rate and Rhythm, S1, S2 Respiratory: Yes: CTA Bilaterally Gastrointestinal: Yes: Normal Bowel Sounds. No: Tenderness Edema: No Additional Findings/Remarks: - Review of Systems Constitutional: denies: Chills, Fever Cardiovascular: (+) Chest Pain, denies: Palpitations, Shortness of Breath Respiratory: denies: Cough, Hemoptysis, Orthopnea, PND, SOB, SOB on Exertion Gastrointestinal: reports: Abdominal Pain, denies: Diarrhea. denies: Melena, Nausea, Rectal Bleeding, Vomiting Genitourinary: denies: Dysuria, Hematuria Musculoskeletal: (+) Back Pain, Joint Pain Neurological: denies: Dizziness, Headache, Seizure, Syncope Labs: CBC, BMP 06/19/19 06:20 06/19/19 06:20 Problem List - Problems (1) Abdominal pain Code(s): R10.9 - UNSPECIFIED ABDOMINAL PAIN Qualifiers: Abdominal location: epigastric Qualified Code(s): R10.13 - Epigastric pain (2) Chest pain Code(s): R07.9 - CHEST PAIN, UNSPECIFIED Qualifiers: Chest pain type: unspecified Qualified Code(s): R07.9 - Chest pain, unspecified (3) Back pain Code(s): M54.9 - DORSALGIA, UNSPECIFIED Qualifiers: Back pain location: low back pain Chronicity: acute Back pain laterality : unspecified Sciatica presence: without sciatica Qualified Code(s): M54.5 - Low back pain (4) Acute diverticulitis of intestine Code(s): K57.92 - DVTRCLI OF INTEST, PART UNSP, W/O PERF OR ABSCESS W/O BLEED (5) Anemia Code(s): D64.9 - ANEMIA, UNSPECIFIED (6) Anxiety Code(s): F41.9 - ANXIETY DISORDER, UNSPECIFIED (7) CAD (coronary artery disease) Code(s): I25.10 - ATHSCL HEART DISEASE OF [place] CORONARY ARTERY W/O ANG PCTRS Qualifiers: Coronary Disease-Associated Artery/Lesion type: [place] artery [place] vs. transplanted heart: [place] heart Associated angina: without angina Qualified Code(s): I25.10 - Atherosclerotic heart disease of [place] coronary artery without angina pectoris (8) CHF (congestive heart failure), NYHA class I Code(s): I50.9 - HEART FAILURE, UNSPECIFIED Qualifiers: Congestive heart failure type: systolic Congestive heart failure chronicity : chronic Qualified Code(s): I50.22 - Chronic systolic (congestive) heart failure (9) COPD (chronic obstructive pulmonary disease) Code(s): J44.9 - CHRONIC OBSTRUCTIVE PULMONARY DISEASE, UNSPECIFIED Qualifiers: COPD type: unspecified COPD Qualified Code(s): J44.9 - Chronic obstructive pulmonary disease, unspecified (10) Neurocardiogenic syncope Code(s): R55 - SYNCOPE AND COLLAPSE (11) Renal insufficiency Code(s): N28.9 - DISORDER OF KIDNEY AND URETER, UNSPECIFIED (12) Chronic left ventricular systolic dysfunction Code(s): I51.9 - HEART DISEASE, UNSPECIFIED (13) Hyperlipidemia Code(s): E78.5 - HYPERLIPIDEMIA, UNSPECIFIED Qualifiers: Hyperlipidemia type: pure hypercholesterolemia Qualified Code(s): E78.00 - Pure hypercholesterolemia, unspecified; E78.0 - Pure hypercholesterolemia (14) Hypertension Code(s): I10 - ESSENTIAL (PRIMARY) HYPERTENSION Qualifiers: Hypertension type: essential hypertension Qualified Code(s): I10 - Essential (primary) hypertension (15) Single implantable cardioverter-defibrillator (ICD) in situ Code(s): Z95.810 - PRESENCE OF AUTOMATIC (IMPLANTABLE) CARDIAC DEFIBRILLATOR (16) Sleep apnea Code(s): G47.30 - SLEEP APNEA, UNSPECIFIED Qualifiers: Sleep apnea type: obstructive Qualified Code(s): G47.33 - Obstructive sleep apnea (adult) (pediatric) (17) Status post insertion of drug-eluting stent into left anterior descending artery for coronary artery disease Code(s): Z98.61 - CORONARY ANGIOPLASTY STATUS (18) Status post myocardial infarction of anterior wall Code(s): I25.2 - OLD MYOCARDIAL INFARCTION Assessment/Plan 1. Chest pain syndrome 2. CAD post PCI/stent, angina pectoris, stable 3. NEYMAR resolved 4. Ischemic cardiomyopathy with history of failure post prophylactic ICD implant , euvolemic Neurocardiogenic syncope +/- orthostatic syncope with recurrence 5. HTN 6. DM 7. Hypercholesterolemia 8. COPD 9. OSAS noncompliant with CPAP 10. Depression/anxiety/eating disorder PLAN: 1. Continue Carvedilol 3.125 mg BID as tolerated 2. Resume Prinivil hemodynamics permitting once renal function stablizes 3. Continue ASA 81 mg QD 4. Continue Lipitor 40 mg QHS 5. HIDA scan unremarkable. Await EGD 6. F/u in office [phone] and [employer] ICD interrogation as outpatient Marcus Kemp MD
--- NOTE | 2019-06-19 14:16 | PN ---
Teaching Attending Note Name of Resident: Reyna Trejo ATTENDING PHYSICIAN STATEMENT I saw and evaluated the patient. I reviewed the resident's note and discussed the case with the resident. I agree with the resident's findings and plan as documented with exceptions below. SUBJECTIVE: Patient seen and examined, no complaints, asking if can eat. OBJECTIVE: Vital Signs Period Temp Pulse Resp BP Sys/Riley Pulse Ox Last 24 Hr 97.9 F-98.0 F 50-58 12-20 96-124/51-74 95-100 Intake & Output 06/16/19 06/17/19 06/18/19 06/19/19 23:59 23:59 23:59 23:59 Intake Total 1370 1260 360 200 Balance 1370 1260 360 200 Weight 110 lb 110 lb 6.4 oz General: lying in bed, no acute distress Chest: CTAb, no rales or wheezing Abdomen:Soft, tenderness on minimal palpation, none when distracted, no voluntary or involuntary guarding or rigidity, pos bowel sounds Extremities: no edema Home Medications Medication Instructions Recorded Atorvastatin Ca [Lipitor] 40 mg PO HS 04/15/16 Gabapentin 600 mg PO QID 04/15/16 Topiramate 50 mg PO BID 04/15/16 Buspirone HCl 15 mg PO TID 11/07/17 Tizanidine HCl 2 mg PO TID PRN 11/07/17 Carvedilol [Coreg -] 3.125 mg PO BID #60 tablet 11/09/17 Duloxetine HCl [Cymbalta] 30 mg PO BID 12/01/18 Clonazepam [Klonopin] 1 mg PO BID 06/14/19 Metformin HCl [Glucophage] 1,000 mg PO BID 06/14/19 Pramipexole Di-HCl [Mirapex] 0.25 mg PO BID 06/14/19 Sitagliptin Phosphate [Januvia] 100 mg PO DAILY 06/14/19 Tramadol HCl [Tramadol HCl ER] 200 mg PO DAILY 06/14/19 clonazePAM [Klonopin -] 0.5 mg PO DAILY 06/14/19 traZODone HCL 200 mg PNB HS 06/15/19 Meloxicam 7.5 mg PO DAILY 06/18/19 traZODone HCL [Trazodone HCl] 100 mg PO BID 06/18/19 Active Medications Acetaminophen (Tylenol -) 650 mg PO Q6H PRN PRN Reason: PAIN Last Admin: 06/19/19 06:11 Dose: 650 mg Aspirin (Asa -) 81 mg PO DAILY [facility] Last Admin: 06/18/19 12:16 Dose: 81 mg Atorvastatin Calcium (Lipitor -) 40 mg PO HS [facility] Last Admin: 06/18/19 21:35 Dose: 40 mg Buspirone HCl (Buspar -) 15 mg PO TID [facility] Last Admin: 06/19/19 06:11 Dose: 15 mg Carvedilol (Coreg -) 3.125 mg PO BID [facility] Last Admin: 06/18/19 21:35 Dose: 3.125 mg Clonazepam (Klonopin -) 1 mg PO BID [facility] Last Admin: 06/19/19 10:13 Dose: 1 mg Clonazepam (Klonopin -) 0.5 mg PO DAILY@1200 [facility] Last Admin: 06/18/19 15:12 Dose: 0.5 mg Docusate Sodium (Colace -) 100 mg PO BID PRN PRN Reason: CONSTIPATION Duloxetine HCl (Cymbalta -) 30 mg PO BID [facility] Last Admin: 06/19/19 10:13 Dose: 30 mg Gabapentin (Neurontin -) 600 mg PO QID [facility] Last Admin: 06/19/19 10:14 Dose: 600 mg Heparin Sodium (Porcine) (Heparin -) 5,000 unit SQ TID [facility] Last Admin: 06/19/19 06:11 Dose: 5,000 unit Melatonin (Melatonin) 5 mg PO [facility] Last Admin: 06/19/19 01:51 Dose: 5 mg Multivitamins/Minerals/Vitamin C (Tab-A-Vit -) 1 tab PO DAILY [facility] Last Admin: 06/19/19 11:10 Dose: 1 tab Pramipexole Dihydrochloride (Mirapex -) 0.25 mg PO BID [facility] Last Admin: 06/19/19 10:13 Dose: 0.25 mg Tizanidine HCl (Tizanidine Hcl) 2 mg PO BID PRN PRN Reason: PAIN LEVEL 1-5 Last Admin: 06/19/19 06:11 Dose: 2 mg Topiramate (Topamax -) 50 mg PO BID [facility] Last Admin: 06/19/19 10:13 Dose: 50 mg Tramadol HCl (Ultram -) 50 mg PO Q6H PRN PRN Reason: PAIN LEVEL 6-10 Last Admin: 06/19/19 11:09 Dose: 50 mg Laboratory Results - last 24 hr 06/18/19 06/18/19 06/18/19 15:10 17:03 21:30 WBC RBC Hgb Hct MCV MCH MCHC RDW Plt Count MPV Absolute Neuts (auto) Neutrophils % Lymphocytes % Monocytes % Eosinophils % Basophils % Nucleated RBC % Sodium Potassium Chloride Carbon Dioxide Anion Gap BUN Creatinine Est GFR (CKD-EPI)AfAm Est GFR (CKD-EPI)NonAf POC Glucometer 110 76 194 Random Glucose Calcium Total Bilirubin AST ALT Alkaline Phosphatase Total Protein Albumin 06/19/19 06/19/19 06/19/19 06:06 06:20 06:20 WBC 6.8 RBC 4.40 Hgb 13.4 Hct 39.6 MCV 90.0 MCH 30.6 MCHC 33.9 RDW 12.4 Plt Count 219 MPV 8.1 Absolute Neuts (auto) 3.7 Neutrophils % 54.1 Lymphocytes % 35.3 Monocytes % 6.4 Eosinophils % 3.8 Basophils % 0.4 Nucleated RBC % 0 Sodium 142 Potassium 3.9 Chloride 109 H Carbon Dioxide 27 Anion Gap 6 L BUN 15.3 Creatinine 0.8 Est GFR (CKD-EPI)AfAm 96.19 Est GFR (CKD-EPI)NonAf 83.00 POC Glucometer 95 Random Glucose 91 Calcium 9.5 Total Bilirubin 0.6 AST 16 ALT 25 Alkaline Phosphatase 64 Total Protein 7.4 Albumin 4.2 06/19/19 12:04 WBC RBC Hgb Hct MCV MCH MCHC RDW Plt Count MPV Absolute Neuts (auto) Neutrophils % Lymphocytes % Monocytes % Eosinophils % Basophils % Nucleated RBC % Sodium Potassium Chloride Carbon Dioxide Anion Gap BUN Creatinine Est GFR (CKD-EPI)AfAm Est GFR (CKD-EPI)NonAf POC Glucometer 90 Random Glucose Calcium Total Bilirubin AST ALT Alkaline Phosphatase Total Protein Albumin HIDA scan results noted ASSESSMENT AND PLAN: 54 yof with PMHx of NIDDM, HTN, ischemic cardiomyopathy, HFrEF (last EF 35%), CAD s/p LAD PCI x 1 in 2010, HLD, anorexia, and COPD (not on home o2), ISELA ( not on CPAP), admitted with chest pain, back/shoulder/abdominal and left leg pain -Chest pain -Abdominal Pain, r/o biliary etiology/Gastritis/GERD/constipation -Generalized pain syndrome with shoulder/leg pain -NEYMAR, resolved -Mild Non anion gap acidosis,?from renal dysfunction, resolved -NIDDM -HTN -ischemic cardiomyopathy/HFrEF (last EF 35%) -CAD s/p LAD PCI x 1 in 2010 -HLD -Anorexia -Generalized anxiety disorder -COPD not on home O2 -ISELA not on CPAP Plan: ACS ruled out, cardiology input noted. Continue medical management. Abdominal symptoms vague, inconsistent exam, no acute concerns. CBC/LFTs unremarkable. Low suspicion for acute process Surgery/GI input noted HIDA scan neg,for EGD today. Home clonazepam/tramadol/duloxetine/topamax. Outpatient psych follow up. PT abial noted Patient declines home services or SNF dc after EGD later today if no concerns. Plan discussed with patient, all questions answered.
[2019-06-19 14:31] VITALS: PULSE 56
--- NOTE | 2019-06-19 14:38 | PN ---
Progress Note (short form) - Note Progress Note: EGD complete. Report left in procedural section of physical chart and will be scanned into [facility]
[2019-06-19 14:48] VITALS: BP 121/74; TEMP 98.2
[2019-06-19] MEDS: CARVEDILOL 3.125 MG TABLET (FP) PO SCH (15:11)
[2019-06-19] MEDS: ASPIRIN 81 MG CHEWABLE TABLETS PO SCH (15:11)
--- NOTE | 2019-06-19 16:10 | DS ---
Physical Exam: SUBJECTIVE: Patient seen and examined in morning. No acute events overnight. Patient has complaints of mild abdominal discomfort. No complaints of chest pain , nausea, vomiting, diarrhea, shortness of breath. OBJECTIVE: Vital Signs Period Temp Pulse Resp BP Sys/Riley Pulse Ox Last 24 Hr 97.9 F-98.2 F 50-58 12-20 96-124/51-74 95-100 PHYSICAL EXAM GENERAL: The patient is awake, alert, and fully oriented, in no acute distress. HEAD: Normal with no signs of trauma. EYES: PERRL, extraocular movements intact, sclera anicteric, conjunctiva clear. ENT: Ears normal, nares patent, oropharynx clear without exudates, moist mucous membranes. NECK: Trachea midline, full range of motion, supple. LUNGS: Breath sounds equal, clear to auscultation bilaterally, no wheezes, no crackles, no accessory muscle use. HEART: Regular rate and rhythm, S1, S2 without murmur, rub or gallop. ABDOMEN: Soft, nontender, nondistended, normoactive bowel sounds, no guarding, no rebound. EXTREMITIES: 2+ pulses, warm, well-perfused, no edema. NEUROLOGICAL: Cranial nerves II through XII grossly intact. Normal speech, gait not observed. PSYCH: Decreased mood, flat affect. SKIN: Warm, dry, normal turgor, no rashes or lesions noted. LABS Laboratory Results - last 24 hr 06/18/19 06/18/19 06/19/19 17:03 21:30 06:06 WBC RBC Hgb Hct MCV MCH MCHC RDW Plt Count MPV Absolute Neuts (auto) Neutrophils % Lymphocytes % Monocytes % Eosinophils % Basophils % Nucleated RBC % Sodium Potassium Chloride Carbon Dioxide Anion Gap BUN Creatinine Est GFR (CKD-EPI)AfAm Est GFR (CKD-EPI)NonAf POC Glucometer 76 194 95 Random Glucose Calcium Total Bilirubin AST ALT Alkaline Phosphatase Total Protein Albumin 06/19/19 06/19/19 06/19/19 06:20 06:20 12:04 WBC 6.8 RBC 4.40 Hgb 13.4 Hct 39.6 MCV 90.0 MCH 30.6 MCHC 33.9 RDW 12.4 Plt Count 219 MPV 8.1 Absolute Neuts (auto) 3.7 Neutrophils % 54.1 Lymphocytes % 35.3 Monocytes % 6.4 Eosinophils % 3.8 Basophils % 0.4 Nucleated RBC % 0 Sodium 142 Potassium 3.9 Chloride 109 H Carbon Dioxide 27 Anion Gap 6 L BUN 15.3 Creatinine 0.8 Est GFR (CKD-EPI)AfAm 96.19 Est GFR (CKD-EPI)NonAf 83.00 POC Glucometer 90 Random Glucose 91 Calcium 9.5 Total Bilirubin 0.6 AST 16 ALT 25 Alkaline Phosphatase 64 Total Protein 7.4 Albumin 4.2 HOSPITAL COURSE: Date of Admission:06/18/19 Date of Discharge: 06/19/19 54F with PMH of depression/anxiety, DMII, CHF, CAD, HLD, Anorexia, COPD, ISELA, admitted for chest pain, abdominal pain, left shoulder, and left leg pain. Chest pain resolved, trops negative x3, and patient will have pacemaker interrogation as outpatient. CT/Abdomen/Pelvis showed a borderline distended gallbladder. Further imaging with US and HIDA showed no abnormalities. Patient had continued GI discomfort throughout stay and endoscopy was done which showed gastritis, duodenitis, and a gastric scar, with a possible esophageal nodule vs vascular bleb. Will have outpatient GI EUS to evaluate. Started on protonix 20 mg PO Daily. Patient was continued on all home medications, and discharged on them with no changes. Patient starting protonix as outpatient. Patient will continue her outpatient psychiatric management, and was given referrals for tax assistant, GI, as well as follow up with her electric mule operator and primary care physician. Imaging done this admission: CT Chest and Abdomen: Normal size and enhancement of the thoracic and abdominal aorta through its bifurcation without evidence of aneurysmal dilatation or dissection. No enlarged mediastinal or hilar lymph nodes are identified. Mild emphysematous changes in the right lung apex. The rest of the lung is clear. Heterogeneous nodular enhancement of the spleen likely due to rapid intravenous contrast administration. Borderline over distended gallbladder. Punctate nonobstructing left renal stone. Nonvisualization of the appendix. There is no evidence of small bowel obstruction. Normal size retroflexed uterus. U/S of gallbladder: No sonographic evidence of cholelithiasis or acute cholecystitis is identified. There is no definite biliary tract dilatation. HIDA Scan: No definite scintigraphic abnormality is identified as noted above. Echo: Left ventricular systolic function is moderately reduced. There is moderate global hypokinesis of the left ventricle. The right ventricle is normal in size and function. There is a pacemaker lead in the right ventricle. There is trace tricuspid regurgitation. Vascular Study: No DVT is identified involving the left leg. Minutes to complete discharge: 30 Discharge Summary Problems reviewed: Yes Reason For Visit: ACUTE KIDNEY INJURY;WEAKNESS;CHEST PAIN Current Active Problems NEYMAR (acute kidney injury) (Acute) Abdominal pain (Acute) Chest pain (Acute) Hypotension (Acute) Back pain (Chronic) Condition: Improved - Instructions Diet, Activity, Other Instructions: You were admitted to the hospital because you had chest pains along with pain in your abdomen and legs. We did scans of your heart which showed it was functioning as it has been earlier this year. We scanned your chest and abdomen for signs of bleeds and it was negative. We scanned your gallbladder further and we saw it was functioning normally. We also had an endoscopy performed and it showed a small esophageal nodule or bleb in the esophagus. You can have this followed up with Endoscopic Ultrasound with a family preservation caseworker. Referral is included in the packet. Additionally, we scanned your left leg for signs of clots and that was normal as well. We believe you are stable for discharge. You should follow up with your doctors and try to have appropriate levels of nutrition. MEDICATIONS: We have made the following changes to your medication regimen: Please START taking Protonix 20 mg once a day by mouth. Please START taking a multivitamin once a day by mouth. Please STOP taking Meloxicam. You may continue taking the rest of your home medications as directed. REFERRALS: Please follow up with your electric mule operator, Dr. Kemp in order to make sure there have been no events on your pacemaker. Please follow up with your primary care physician, Dr. Barry, in order to update her on this admission to the hospital and to keep up with your health maintenance. Please follow up with your psychiatrist, Dr. Haile within 1 week. Please follow up with your family preservation caseworker, Dr. Mtz, within 1 week. You can have the endoscopic ultrasound performed and follow up results of your endoscopy. Return to the emergency department if you have any chest pains, shortness of breath, abdominal pains, or worsening of your symptoms. SPECIAL INSTRUCTIONS: Please continue following up with your health care providers to manage your anorexia and do your best to maintain adequate nutrition. Please avoid taking medicines such as Ibuprofen or Motrin. If you have pain, consider taking Tylenol. Referrals: MD Mic [Other] Eliseo Mtz DO [Staff Physician] - 1 Week Marcus Kemp MD [Staff Physician] - 1 Week Sandra Barry MD [Primary Care Provider] - 1 Week Disposition: HOME - Home Medications Comprehensive Discharge Medication List: Ambulatory Orders Atorvastatin Ca [Lipitor] 40 mg PO HS 04/15/16 Gabapentin 600 mg PO QID 04/15/16 Topiramate 50 mg PO BID 04/15/16 Buspirone HCl 15 mg PO TID 11/07/17 Tizanidine HCl 2 mg PO TID PRN 11/07/17 Carvedilol [Coreg -] 3.125 mg PO BID #60 tablet 11/09/17 Duloxetine HCl [Cymbalta] 30 mg PO BID 12/01/18 Clonazepam [Klonopin] 1 mg PO BID 06/14/19 Metformin HCl [Glucophage] 1,000 mg PO BID 06/14/19 Pramipexole Di-HCl [Mirapex] 0.25 mg PO BID 06/14/19 Sitagliptin Phosphate [Januvia] 100 mg PO DAILY 06/14/19 clonazePAM [Klonopin -] 0.5 mg PO DAILY 06/14/19 traZODone HCL [Trazodone HCl] 100 mg PO BID 06/18/19 Pantoprazole Sodium [Protonix -] 20 mg PO DAILY #30 tablet.ec 06/19/19 This patient is new to me today: No Emergency Visit: Yes ED Registration Date: 06/18/19 Care time: The patient presented to the Emergency Department on the above date and was hospitalized for further evaluation of their emergent condition. Critical Care patient: No - Discharge Referral Referred to [facility] Med P.C.: No ATTENDING PHYSICIAN STATEMENT I saw and evaluated the patient. I reviewed the resident's note and discussed the case with the resident. I agree with the resident's findings and plan as documented. SUBJECTIVE: OBJECTIVE: ASSESSMENT AND PLAN:
[2019-06-20] MEDS ORDERED: PANTOPRAZOLE 20 MG TABLET (FP) PO SCH (10:00)
--- NOTE | 2019-06-21 15:47 | PATH ---
Surgical Pathology Report Patient Name: DANITA [facility]. Rec. #: [id number] /Age/Gender: 1965 (Age: 54) / F Account: [id number] Location: [facility] PEDS/ADOL Taken: 06/19/2019 Received: 06/20/2019 Reported: 06/21/2019 Physicians: Gaudencio Mtz D.O. Specimen(s) Received A: DUODENUM B: DUODENAL BULB C: ANGULARIS AND BODY Clinical History Epigastric pain Postoperative diagnosis: Gastritis, duodenitis Final Diagnosis A. DUODENUM, BIOPSY: DUODENAL MUCOSA WITHOUT SIGNIFICANT PATHOLOGIC FINDINGS. B. DUODENAL BULB, BIOPSY: DUODENAL MUCOSA WITH MILD ACUTE AND CHRONIC DUODENITIS AND REACTIVE CHANGES. C. STOMACH, ANGULARIS AND BODY, BIOPSY: GASTRIC MUCOSA WITH MILD CHRONIC GASTRITIS. IMMUNOHISTOCHEMICAL STAIN FOR H. PYLORI IS NEGATIVE. Electronically Signed Sandra Wright M.D. Gross Description A. Received in formalin, labeled "biopsy duodenum" are 4 forbes, irregular portions of soft tissue ranging from 0.1-0.3 cm. in greatest dimension. The specimens are submitted in toto in one cassette. B. Received in formalin, labeled "biopsy duodenal bulb" are 2 forbes, irregular portions of soft tissue measuring 0.2 and 0.3 cm. in greatest dimension. The specimens are submitted in toto in one cassette. C. Received in formalin, labeled "biopsy angularis and body" are 3 forbes, irregular portions of soft tissue ranging from 0.1-0.3 cm. in greatest dimension. The specimens are submitted in toto in one cassette. 06/20/201906/20/2019
== END 2019-06-19 18:04 | disposition home or self-care (01) | DRG 392 ==
LOC: JER 07:00 → INTOOBSV 09:59 → JERBED 09:59 → J4S 20:22 → OBSVTOIN 06-18 11:25
PROVIDERS: ADMIT Hospitalist; ATTEND Hospitalist
PROC: 0DB68ZX Excision of Stomach, Via Natural or Artificial Opening Endoscopic, Diagnostic (ICD-10-PCS; 2019-06-19)
PROC: 0DB98ZX Excision of Duodenum, Via Natural or Artificial Opening Endoscopic, Diagnostic (ICD-10-PCS; principal; 2019-06-19 11:30)
DX: K29.70 Gastritis, unspecified, without bleeding (principal); N17.9 Acute kidney failure, unspecified; I50.22 Chronic systolic (congestive) heart failure; E87.2 Acidosis; F50.00 Anorexia nervosa, unspecified; K29.80 Duodenitis without bleeding; R10.13 Epigastric pain; E11.9 Type 2 diabetes mellitus without complications; M54.5 Low back pain; E78.5 Hyperlipidemia, unspecified; I95.9 Hypotension, unspecified; K21.9 Gastro-esophageal reflux disease without esophagitis; K59.00 Constipation, unspecified; I25.5 Ischemic cardiomyopathy; J44.9 Chronic obstructive pulmonary disease, unspecified; G47.33 Obstructive sleep apnea (adult) (pediatric); I25.119 Atherosclerotic heart disease of native coronary artery with unspecified angina pectoris; R07.89 Other chest pain; Z98.61 Coronary angioplasty status; R10.9 Unspecified abdominal pain; F41.8 Other specified anxiety disorders
CPT/HCPCS: 36415; 36600; 71045-TC-FY; 71275-TC; 74174-TC; 76705-TC; 78227-TC; 80053; 81003; 82550; 82803; 82962; 83605; 83690; 83735; 83880; 84100; 84443; 84484; 85025; 85610; 85730; 87040; 87086; 87186; 93005; 93010; 93306-TC; 93971-TC; 97116-GP; 97162-GP; 99285-25; A9537; G0378; J0131; J1644; Q9967

== ENCOUNTER 2019-07-01 18:48 | Emergency (ER) | payer OTHER ==
[2019-07-01 19:39] VITALS: BMI 20.5
[2019-07-01] MEDS ORDERED: DEXTROSE 5%-NORMAL SALINE 1,000 ML IV ONE (21:11)
[2019-07-01] MEDS ORDERED: KETOROLAC TROMETHAMINE 30 MG/1 ML VIAL IVPUSH ONE (21:12)
[2019-07-01] MEDS ORDERED: DEXTROSE 5%-LACTATED RINGERS 1,000 ML IV SCH (21:15)
[2019-07-01 21:17] LABS: BASO % 0.6 % (0-2.0); EOS % 3.9 % (0-4.5); HEMATOCRIT 36.5 % (32.4-45.2); HEMOGLOBIN 12.5 GM/dL (10.7-15.3); LYMPH % 26.7 % (8-40); MCH 30.9 pg (25.7-33.7); MCHC 34.3 g/dl (32.0-36.0); MEAN CELL VOLUME 90.1 fl (80-96); MEAN PLT VOLUME 8.1 fl (7.5-11.1); MONO % 6.5 % (3.8-10.2); NEUT % 62.3 % (42.8-82.8); PLATELET COUNT 215 K/MM3 (134-434); RBC 4.05 M/mm3 (3.60-5.2); RDW 12.8 % (11.6-15.6); WHITE BLOOD COUNT 7.3 K/mm3 (4.0-10.0)
[2019-07-01] MEDS ORDERED: KETOROLAC TROMETHAMINE 30 MG/1 ML VIAL ONE (21:20)
--- NOTE | 2019-07-01 21:22 | PDOC ---
Documentation entered by Anant Mcclelland SCRIBE, acting as scribe for Eliza Chou MD. Eliza Chou MD: This documentation has been prepared by the Stas cochran Daniel, SCRIBE, under my direction and personally reviewed by me in its entirety. I confirm that the documentation accurately reflects all work, treatment, procedures, and medical decision making performed by me. History of Present Illness - General Chief Complaint: Syncope/Near Syncope Stated Complaint: FALL Time Seen by Provider: 07/01/19 20:21 History Source: Patient Exam Limitations: No Limitations - History of Present Illness Initial Comments: 07/01/19 21:08 The patient is a 54 year old female with a past medical history of diabetes, anxiety, anorexia, CHF, CAD, HLD, depression, and [place] (2010 s/p pacemaker 2011) here today for evaluation of syncope. The patient reports that approximately 1 hour prior to arrival she syncopized and fell hitting her head. She states that she doesnt remember the incident but her son states that the patient was getting out of bed and reaching for the door when she syncopized. Patient notes multiple similar episodes this year and notes poor PO intake and diarrhea on tuesday (06/26/19). She currently complains of general weakness, general body aches, and lightheadedness. Patient denies headache. Denies fever, chills. Denies chest pain, shortness of breath. Denies nausea, vomiting, diarrhea, abdominal pain. Allergies: NKA Past History - Past Medical History Allergies/Adverse Reactions: Allergies Allergy/AdvReac Type Severity Reaction Status Date / Time No Known Allergies Allergy Verified 07/01/19 19:39 Home Medications: Ambulatory Orders Atorvastatin Ca [Lipitor] 40 mg PO HS 04/15/16 Gabapentin 600 mg PO QID 04/15/16 Topiramate 50 mg PO BID 04/15/16 Buspirone HCl 15 mg PO TID 11/07/17 Tizanidine HCl 2 mg PO TID PRN 11/07/17 Carvedilol [Coreg -] 3.125 mg PO BID #60 tablet 11/09/17 Duloxetine HCl [Cymbalta] 30 mg PO BID 12/01/18 Clonazepam [Klonopin] 1 mg PO BID 06/14/19 Metformin HCl [Glucophage] 1,000 mg PO BID 06/14/19 Pramipexole Di-HCl [Mirapex] 0.25 mg PO BID 06/14/19 Sitagliptin Phosphate [Januvia] 100 mg PO DAILY 06/14/19 clonazePAM [Klonopin -] 0.5 mg PO DAILY 06/14/19 traZODone HCL [Trazodone HCl] 100 mg PO BID 06/18/19 Pantoprazole Sodium [Protonix -] 20 mg PO DAILY #30 tablet.ec 06/19/19 Sulfamethoxazole/Trimethoprim [Bactrim Ds -] 1 tab PO BID #14 tablet 07/02/19 Anemia: No Asthma: No Cancer: No Cardiac Disorders: Yes (CAD, [place], Ischemic CMP) CVA: No COPD: No CHF: Yes (CHF, Pulm Edema) DVT: No Dementia: No Diabetes: No GI Disorders: Yes (Anorexia Nervosa, Constipation(BM weekly), Diverticulosis, Hemorrhoids,) Disorders: Yes (kidney stents, kidney stones, NEYMAR) HTN: Yes Hypercholesterolemia: Yes Liver Disease: No Psychiatric Problems: Yes (anxiety, anorexia, DEPRESSION.) Seizures: No Thyroid Disease: No - Surgical History Abdominal Surgery: Yes (ECTOPIC) Appendectomy: No Cardiac Surgery: Yes (cardiac cath, stent, ppm/aicd) Cholecystectomy: No Lung Surgery: No Neurologic Surgery: No Orthopedic Surgery: No - Immunization History Td Vaccination: Yes TDAP Vaccination: Yes Immunization Up to Date: No (no flu vaccine) - Psycho Social/Smoking Cessation Hx Smoking Status: No Smoking History: Former smoker Years of Tobacco Use: 10 Have you smoked in the past 12 months: Yes Number of Cigarettes Smoked Daily: 10 If you are a former smoker, when did you quit?: 2015 Cigars Per Day: 0 Information on smoking cessation initiated: No 'Breaking Loose' booklet given: 12/15/14 Hx Alcohol Use: No Drug/Substance Use Hx: No Substance Use Type: Marijuana Hx Substance Use Treatment: No Review of Systems - Review of Systems Able to Perform ROS?: Yes Comments:: 07/01/19 21:08 GENERAL/CONSTITUTIONAL: +general weakness. No fever or chills. HEAD, EYES, EARS, NOSE AND THROAT: No change in vision. No ear pain or discharge. No sore throat. CARDIOVASCULAR: No chest pain or shortness of breath. RESPIRATORY: No cough, wheezing, or hemoptysis. GASTROINTESTINAL: No nausea, vomiting, diarrhea or constipation. GENITOURINARY: No dysuria, frequency, or change in urination. MUSCULOSKELETAL: +general body aches. SKIN: No rash NEUROLOGIC: +syncope. +lightheadedness. No headache, vertigo, or change in strength/sensation. ENDOCRINE: No increased thirst. No abnormal weight change. HEMATOLOGIC/LYMPHATIC: No anemia, easy bleeding, or history of blood clots. ALLERGIC/IMMUNOLOGIC: No hives or skin allergy. *Physical Exam - Vital Signs Last Vital Signs Temp Pulse Resp BP Pulse Ox 97.5 F L 74 15 103/66 97 07/01/19 19:35 07/01/19 19:35 07/01/19 19:35 07/01/19 19:35 07/01/19 19:35 - Physical Exam 07/01/19 21:09 GENERAL: Awake, alert, and fully oriented, in no acute distress HEAD: No signs of trauma EYES: PERRLA, EOMI, sclera anicteric, conjunctiva clear ENT: Auricles normal inspection, hearing grossly normal, nares patent, oropharynx clear without exudates. Moist mucosa NECK: Normal ROM, supple, no lymphadenopathy, JVD, or masses LUNGS: Breath sounds equal, clear to auscultation bilaterally. No wheezes, and no crackles HEART: Regular rate and rhythm, normal S1 and S2, no murmurs, rubs or gallops ABDOMEN: Soft, nontender, normoactive bowel sounds. No guarding, no rebound. No masses EXTREMITIES: Normal range of motion, no edema. No clubbing or cyanosis. No cords, erythema, or tenderness NEUROLOGICAL: Cranial nerves II through XII grossly intact. Normal speech, normal gait SKIN: Warm, Dry, normal turgor, no rashes or lesions noted. ED Treatment Course - LABORATORY CBC & Chemistry Diagram: 07/01/19 21:00 07/01/19 21:00 Medical Decision Making - Medical Decision Making 07/01/19 21:22 Pt seems to be dehydrated and she is pale. Family and patient state that she has not been eating well. States that she has no fevers or chills. She takes many meds that may cause weakness and depression of mental alertness. Pt has no weakness and no neural deficits. Today while walking in son's home she got weak, leaned against a door, and slumped toward the ground. Not a serious impact, but she hit he head on the ground.Pt resting 07/02/19 00:05 Patient Name: DANITA OGLESBY THIS IS A PRELIMINARY REPORT FROM [facility] DATE OF SERVICE: 2019-07-01 22:40:40 IMAGES: 212 EXAM: CT HEAD WITHOUT CONTRAST HISTORY: 54-year-old female, syncope COMPARISON: No available comparison exams. TECHNIQUE: Axial non-contrast images of the head obtained from the skull base to the vertex. Radiation Dose Reduction: This CT exam was performed using one or more of the following dose reduction techniques: automated exposure control, adjustment of the mA and/or kV according to patient size, use of iterative reconstruction technique. Radiation Dose: Based on a 16 cm phantom, the estimated radiation dose CTDIvol mGy for each series in this exam is 23.9. The estimated cumulative dose (DLP mGy-cm) is 509.3. FINDINGS: Parenchyma: No acute intracranial hemorrhage or mass effect. Extra-axial collection: No extra-axial fluid collection or hemorrhage. Ventricles and cisterns: Normal and symmetric in size and shape. No SAH. Paranasal sinuses: Visualized portions are unremarkable. Mastoid air cells: Unremarkable. Orbits: Visualized portions are unremarkable. Calvarium: No acute fracture. IMPRESSION: No evidence of acute intracranial abnormality. 07/02/19 01:52 UTOX POSITIVE FOR MARIJUANA AND OPIATES 07/02/19 03:00 Pt is feeling better and she is eating food that her daughter brought for her 07/02/19 06:48 Pt states that she has a ROBERTS and she was given tylenol and reglan Her children will be coming to pick her up this AM She is receiving IV hydration 2nd L; she has a 24ga IV, that is running slowly. Pt will be signed out to the day team Discharge - Discharge Information Problems reviewed: Yes Clinical Impression/Diagnosis: Lightheadedness Condition: Stable Disposition: HOME - Additional Discharge Information Prescriptions: Sulfamethoxazole/Trimethoprim [Bactrim Ds -] 1 tab PO BID #14 tablet - Follow up/Referral - Patient Discharge Instructions Additional Instructions: Please be careful when using marijuana and your klonipin together as it can make you lightheaded and weak. Please see your PCP in one week to discuss your medication usage. Please eat and stay well hydrated. Please return to the ED if you have new or worsening symptoms. - Post Discharge Activity
[2019-07-01 21:51] LABS: BILIRUBIN,TOTAL 0.5 mg/dL (0.2-1); BLOOD UREA NITROGEN 9.8 mg/dL (7-18); CALCIUM 8.6 mg/dL (8.5-10.1); CREATININE 0.9 mg/dL (0.55-1.3); POTASSIUM 4.1 mmol/L (3.5-5.1); TOT PROT 6.9 g/dl (6.4-8.2)
[2019-07-01] MEDS ORDERED: morphine CARPU-JECT 2 MG/1 ML DISP.SYRIN IVPUSH ONE (23:36)
[2019-07-01] MEDS ORDERED: MORPHINE SULFATE 2 MG/ML VIAL ONE (23:37)
[2019-07-02 01:28] LABS: EPI CELLS 11.6 /HPF (0-5/HPF); HYALINE CASTS 3 /lpf (0-8); PH,URINE 5.5 (5.0-8.0); URINE APPEARANCE CLOUDY; URINE BACTERIA 185.5 /hpf (NEGATIVE); URINE BILIRUBIN NEGATIVE (NEGATIVE); URINE COLOR YELLOW; URINE GLUCOSE (UA) NEGATIVE (NEGATIVE); URINE KETONE NEGATIVE (NEGATIVE); URINE LEUK ESTERASE TRACE (NEGATIVE); URINE NITRITE NEGATIVE (NEGATIVE); URINE PROTEIN NEGATIVE (NEGATIVE); URINE RBC 3 /hpf (0-4); URINE UROBILINOGEN 0.2 mg/dL (0.2-1.0); URINE WBC 5 /hpf (0-5)
[2019-07-02] MEDS ORDERED: SULFAMETHOXAZOLE/TRIMETHOPRIM 800MG/160MG D.S. TABLET PO ONE (01:30)
[2019-07-02 01:43] LABS: COCAINE, UR NEGATIVE ng/ml (CUTOFF=300); METHADONE, UR NEGATIVE ng/ml (CUTOFF=300); PHENCYCLIDINE,URINE NEGATIVE ng/ml (CUTOFF=25); URINE AMPHETAMINES NEGATIVE ng/ml (CUTOFF=500); URINE BARBITURATES NEGATIVE ng/ml (CUTOFF=200); URINE BENZODIAZEPINES NEGATIVE ng/ml (CUTOFF=200)
[2019-07-02] MEDS ORDERED: SULFAMETHOXAZOLE/TRIMETHOPRIM 800MG/160MG D.S. TABLET ONE (01:43)
[2019-07-02 01:45] LABS: OPIATES, URI POSITIVE ng/ml (CUTOFF=300)
[2019-07-02] MEDS ORDERED: SODIUM CHLORIDE 0.9% 500 ML INFUS.BAG IV ONE ×3 (01:53→08:03)
[2019-07-02] MEDS ORDERED: ACETAMINOPHEN 325 MG TABLET (FP) ONE (06:23)
[2019-07-02] MEDS ORDERED: METOCLOPRAMIDE HCL INJECTION 10 MG/2 ML VIAL ONE (06:24)
[2019-07-02] MEDS ORDERED: ACETAMINOPHEN 325 MG TABLET (FP) PO ONE (06:27)
[2019-07-02] MEDS ORDERED: METOCLOPRAMIDE HCL INJECTION 10 MG/2 ML VIAL IVPUSH ONE (06:27)
--- NOTE | 2019-07-02 07:30 | PDOC ---
*Physical Exam - Vital Signs Last Vital Signs Temp Pulse Resp BP Pulse Ox 97.5 F L 60 18 96/51 L 100 07/01/19 19:35 07/02/19 06:22 07/02/19 06:22 07/02/19 06:22 07/02/19 06:22 - Physical Exam 54 year old female presenting with presyncoping in the setting of marijuana and clonazepam usage. Here labs, EKG, and UA were all negative for abnormality. Will DC to the care of her daughter as she appears stable. 07/02/19 07:24 ED Treatment Course - LABORATORY CBC & Chemistry Diagram: 07/01/19 21:00 07/01/19 21:00 - ADDITIONAL ORDERS Additional order review: Laboratory Results 07/02/19 07/02/19 07/01/19 01:13 01:13 21:00 Sodium 138 Potassium 4.1 Chloride 108 H Carbon Dioxide 23 Anion Gap 8 BUN 9.8 Creatinine 0.9 Est GFR (CKD-EPI)AfAm 83.43 Est GFR (CKD-EPI)NonAf 71.98 Random Glucose 78 Calcium 8.6 Total Bilirubin 0.5 AST 14 L ALT 15 Alkaline Phosphatase 61 Creatine Kinase Troponin I Total Protein 6.9 Albumin 4.0 Urine Color Yellow Urine Appearance Cloudy Urine pH 5.5 Ur Specific [place] 1.008 L Urine Protein Negative Urine Glucose (UA) Negative Urine Ketones Negative Urine Blood Negative Urine Nitrite Negative Urine Bilirubin Negative Urine Urobilinogen 0.2 Ur Leukocyte Esterase Trace Urine WBC (Auto) 5 Urine RBC (Auto) 3 Urine Casts (Auto) 3 U Epithel Cells (Auto) 11.6 Urine Bacteria (Auto) 185.5 Opiates Screen Positive A* Methadone Screen Negative Barbiturate Screen Negative Phencyclidine Screen Negative Ur Amphetamines Screen Negative MDMA (Ecstasy) Screen Negative Benzodiazepines Screen Negative Cocaine Screen Negative U Marijuana (THC) Screen Positive A* 07/01/19 21:00 Sodium Potassium Chloride Carbon Dioxide Anion Gap BUN Creatinine Est GFR (CKD-EPI)AfAm Est GFR (CKD-EPI)NonAf Random Glucose Calcium Total Bilirubin AST ALT Alkaline Phosphatase Creatine Kinase 100 Troponin I < 0.02 Total Protein Albumin Urine Color Urine Appearance Urine pH Ur Specific [place] Urine Protein Urine Glucose (UA) Urine Ketones Urine Blood Urine Nitrite Urine Bilirubin Urine Urobilinogen Ur Leukocyte Esterase Urine WBC (Auto) Urine RBC (Auto) Urine Casts (Auto) U Epithel Cells (Auto) Urine Bacteria (Auto) Opiates Screen Methadone Screen Barbiturate Screen Phencyclidine Screen Ur Amphetamines Screen MDMA (Ecstasy) Screen Benzodiazepines Screen Cocaine Screen U Marijuana (THC) Screen 07/01/19 21:00 RBC 4.05 MCV 90.1 MCHC 34.3 RDW 12.8 MPV 8.1 Neutrophils % 62.3 Lymphocytes % 26.7 D Monocytes % 6.5 Eosinophils % 3.9 Basophils % 0.6 - Medications Given in the ED: ED Medications Discontinued Medications Generic Name Dose Route Start Last Admin Trade Name Freq PRN Reason Stop Dose Admin Acetaminophen 650 mg 07/02/19 06:27 07/02/19 06:29 Tylenol - PO 07/02/19 06:28 650 mg ONCE ONE Administration Ketorolac Tromethamine 30 mg 07/01/19 21:12 07/01/19 21:22 Toradol Injection - IVPUSH 07/01/19 21:13 30 mg ONCE ONE Administration Metoclopramide HCl 10 mg 07/02/19 06:27 07/02/19 06:29 Reglan Injection - IVPUSH 07/02/19 06:28 10 mg ONCE ONE Administration Morphine Sulfate 2 mg 07/01/19 23:36 07/01/19 23:41 Morphine Injection - IVPUSH 07/01/19 23:37 2 mg ONCE ONE Administration Sodium Chloride 1,000 ml 07/02/19 01:53 07/02/19 01:57 Normal Saline - IV 07/02/19 01:54 1,000 ml ONCE ONE Administration Trimethoprim/Sulfamethoxazole 1 each 07/02/19 01:30 07/02/19 01:46 Bactrim Ds - PO 07/02/19 01:31 1 each ONCE ONE Administration Discharge - Discharge Information Problems reviewed: Yes Clinical Impression/Diagnosis: Lightheadedness Condition: Stable Disposition: HOME - Admission No - Additional Discharge Information Prescriptions: Sulfamethoxazole/Trimethoprim [Bactrim Ds -] 1 tab PO BID #14 tablet - Follow up/Referral - Patient Discharge Instructions Additional Instructions: Please be careful when using marijuana and your klonipin together as it can make you lightheaded and weak. Please see your PCP in one week to discuss your medication usage. Please eat and stay well hydrated. Please return to the ED if you have new or worsening symptoms. - Post Discharge Activity
[2019-07-02 09:10] VITALS: BP 109/68; PULSE 60; TEMP 97.8
--- NOTE | 2019-07-03 12:08 | EKG ---
Test Reason : Blood Pressure : / mmHG Vent. Rate : 065 BPM Atrial Rate : 065 BPM P-R Int : 202 ms QRS Dur : 078 ms QT Int : 356 ms P-R-T Axes : 008 025 100 degrees QTc Int : 370 ms NORMAL SINUS RHYTHM LOW VOLTAGE QRS CANNOT RULE OUT ANTEROSEPTAL INFARCT (CITED ON OR BEFORE 16-OCT-2014) ABNORMAL ECG WHEN COMPARED WITH ECG OF 14-JUN-2019 07:18, NO SIGNIFICANT CHANGE WAS FOUND Confirmed by MD Dave, Arnold ([id number]) on 07/03/2019 12:07:44 PM Referred By: Confirmed By:Arnold Acosta MD
== END 2019-07-02 08:55 | disposition home or self-care (01) ==
LOC: JER 18:48
PROC: 3E033NZ Introduction of Analgesics, Hypnotics, Sedatives into Peripheral Vein, Percutaneous Approach (ICD-10-PCS; principal; 2019-07-01)
PROC: 3E0333Z Introduction of Anti-inflammatory into Peripheral Vein, Percutaneous Approach (ICD-10-PCS; 2019-07-01)
PROC: 3E0337Z Introduction of Electrolytic and Water Balance Substance into Peripheral Vein, Percutaneous Approach (ICD-10-PCS; 2019-07-01)
PROC: 3E033GC Introduction of Other Therapeutic Substance into Peripheral Vein, Percutaneous Approach (ICD-10-PCS; 2019-07-01)
DX: R42 Dizziness and giddiness (principal); S09.8XXA Other specified injuries of head, initial encounter; W18.39XA Other fall on same level, initial encounter; Y93.89 Activity, other specified; Y92.018 Other place in single-family (private) house as the place of occurrence of the external cause; Y99.8 Other external cause status; I25.10 Atherosclerotic heart disease of native coronary artery without angina pectoris; I11.0 Hypertensive heart disease with heart failure; Z95.5 Presence of coronary angioplasty implant and graft; I50.9 Heart failure, unspecified; I25.2 Old myocardial infarction; I25.5 Ischemic cardiomyopathy; F50.00 Anorexia nervosa, unspecified; Z68.20 Body mass index [BMI] 20.0-20.9, adult; E78.00 Pure hypercholesterolemia, unspecified; F41.8 Other specified anxiety disorders; F32.9 Major depressive disorder, single episode, unspecified; Z87.19 Personal history of other diseases of the digestive system; Z87.442 Personal history of urinary calculi; Z96.0 Presence of urogenital implants
CPT/HCPCS: 36415; 70450-TC; 71045-TC-FY; 80053; 80307; 81003; 82550; 84484; 85025; 87077; 87086; 87186; 93005; 93010; 99285-25

== ENCOUNTER 2019-07-08 16:58 | Observation (INO) | payer OTHER ==
[2019-07-08 17:15] VITALS: BMI 20.4
--- NOTE | 2019-07-08 17:30 | PDOC ---
History of Present Illness - History of Present Illness Initial Comments: The pt is a 54F with a PMH of DM, anxiety, anorexia, HFrEF (40-45%), CAD, HLD, depression, and [place] (2010 s/p pacemaker 2011) who presents s/p syncopal fall from standing. The pt reports she was standing for several minutes, felt dizzy, the her vision went dark and she fell to the floor. She awoke shortly after and her mother had to help her off of the floor. She denies chest pain before or after the incident. She endorses a L ROBERTS that is pressure-like and constant with radiation to her neck. She denies vision or sensation changes. She also reports midline neck pain since the time of the fall. She also notes that she was recently diagnosed with a UTI and was switched to a different abx yesterday but does not recall the name. She endorses lower abdominal discomfort, frequency, and difficulty with urination. She denies recent illness, fevers/chills, trouble breathing, diarrhea, blood in her stool or urine, or changes in strength/sensation. Pt reports taking all her medications this AM Denies tobacco, EtOH, or illicit drug use (including marijuana) 07/08/19 17:30 <Alexandro Luong - Last Filed: 07/08/19 19:08> <Jillian Sky - Last Filed: 07/09/19 17:12> - General Chief Complaint: Blood Pressure Problem Stated Complaint: NEAR SYNCOPE/SYNCOPE Past History - Past Medical History Anemia: No Asthma: No Cancer: No Cardiac Disorders: Yes (CAD, [place], Ischemic CMP) CVA: No COPD: No CHF: Yes (CHF, Pulm Edema) DVT: No Dementia: No Diabetes: No GI Disorders: Yes (Anorexia Nervosa, Constipation(BM weekly), Diverticulosis, Hemorrhoids,) Disorders: Yes (kidney stents, kidney stones, NEYMAR) HTN: Yes Hypercholesterolemia: Yes Liver Disease: No Psychiatric Problems: Yes (anxiety, anorexia, DEPRESSION.) Seizures: No Thyroid Disease: No - Surgical History Abdominal Surgery: Yes (ECTOPIC) Appendectomy: No Cardiac Surgery: Yes (cardiac cath, stent, ppm/aicd) Cholecystectomy: No Lung Surgery: No Neurologic Surgery: No Orthopedic Surgery: No - Immunization History Td Vaccination: Yes TDAP Vaccination: Yes Immunization Up to Date: No (no flu vaccine) - Psycho Social/Smoking Cessation Hx Smoking Status: No Smoking History: Current some day smoker Years of Tobacco Use: 10 Have you smoked in the past 12 months: Yes Number of Cigarettes Smoked Daily: 10 If you are a former smoker, when did you quit?: 2014 Cigars Per Day: 0 Information on smoking cessation initiated: No 'Breaking Loose' booklet given: 12/15/14 Hx Alcohol Use: No Drug/Substance Use Hx: No Substance Use Type: Marijuana Hx Substance Use Treatment: No <Alexandro Luong - Last Filed: 07/08/19 19:08> <Jillian Sky - Last Filed: 07/09/19 17:12> - Past Medical History Allergies/Adverse Reactions: Allergies Allergy/AdvReac Type Severity Reaction Status Date / Time No Known Allergies Allergy Verified 07/01/19 19:39 Home Medications: Ambulatory Orders Atorvastatin Ca [Lipitor] 40 mg PO HS 04/15/16 Gabapentin 600 mg PO QID 04/15/16 Buspirone HCl 15 mg PO TID 11/07/17 Tizanidine HCl 2 mg PO TID PRN 11/07/17 Carvedilol [Coreg -] 3.125 mg PO BID #60 tablet 11/09/17 Duloxetine HCl [Cymbalta] 30 mg PO BID 12/01/18 Clonazepam [Klonopin] 1 mg PO BID 06/14/19 Metformin HCl [Glucophage] 1,000 mg PO BID 06/14/19 Pramipexole Di-HCl [Mirapex] 0.25 mg PO BID 06/14/19 Sitagliptin Phosphate [Januvia] 100 mg PO DAILY 06/14/19 clonazePAM [Klonopin -] 0.5 mg PO DAILY@1200 06/14/19 Pantoprazole Sodium [Protonix -] 20 mg PO DAILY #30 tablet.ec 06/19/19 Magnesium Oxide 400 mg PO DAILY #5 tablet 07/09/19 Topiramate [Topamax -] 25 mg PO BID #60 tablet 07/09/19 traZODone HCL [Trazodone HCl] 50 mg PO HS #30 tablet 07/09/19 Review of Systems - Review of Systems Able to Perform ROS?: Yes Comments:: GENERAL/CONSTITUTIONAL: No fever or chills. No weakness HEAD, EYES, EARS, NOSE AND THROAT: No change in vision. No change in hearing. No sore throat CARDIOVASCULAR: No chest pain or shortness of breath RESPIRATORY: Denies cough, hemoptysis GASTROINTESTINAL: No nausea, vomiting, diarrhea or constipation GENITOURINARY: No dysuria, frequency, or change in urination MUSCULOSKELETAL: +neck pain, back pain SKIN: No rash NEUROLOGIC: +LOC and ROBERTS; No or change in strength/sensation ENDOCRINE: No increased thirst. No abnormal weight change HEMATOLOGIC/LYMPHATIC: No anemia, easy bleeding, or history of blood clots ALLERGIC/IMMUNOLOGIC: No hives or skin allergy 07/08/19 17:29 Is the patient limited [place] proficient: No <Alexandro Luong - Last Filed: 07/08/19 19:08> *Physical Exam - Vital Signs Last Vital Signs Temp Pulse Resp BP Pulse Ox 98.3 F 68 14 110/61 07/08/19 17:13 07/08/19 17:13 07/08/19 17:13 07/08/19 17:13 - Physical Exam GENERAL: Awake, alert, and oriented to person/place/time, in no acute distress HEAD: No signs of trauma, normocephalic, atraumatic EYES: PERRLA, EOMI, sclera anicteric, conjunctiva clear ENT: Hearing grossly normal, nares patent, oropharynx clear without exudates. Moist mucosa NECK: Paraspinous TTP, ROM intact LUNGS: No distress, speaks in full sentences, clear to auscultation bilaterally HEART: Regular rate and rhythm, normal S1 and S2, no murmurs appreciated, peripheral pulses normal and equal bilaterally ABDOMEN: Soft, nontender, normoactive bowel sounds. No guarding, no rebound EXTREMITIES: Normal inspection, Normal range of motion, no edema. No clubbing or cyanosis NEUROLOGICAL: Cranial nerves II through XII grossly intact. Normal speech, normal gait, no focal sensorimotor deficits SKIN: Warm, Dry 07/08/19 17:29 <Alexandro Luong - Last Filed: 07/08/19 19:08> - Vital Signs Last Vital Signs Temp Pulse Resp BP Pulse Ox 97.7 F 62 15 95/59 L 97 07/09/19 11:57 07/09/19 13:49 07/09/19 13:49 07/09/19 13:49 07/09/19 13:49 <Jillian Sky - Last Filed: 07/09/19 17:12> ED Treatment Course - LABORATORY CBC & Chemistry Diagram: 07/08/19 18:06 07/08/19 18:06 - RADIOLOGY Radiograph Interpretation: CHEST X-RAY PORTABLE Since 07/01/2019 again noted is a left-sided pacemaker with clear lungs, normal mediastinum and sharp angles. The bones and soft tissues are intact. Impression: No acute pathology. No sign of an acute process. 07/08/19 18:16 <Alexandro Luong - Last Filed: 07/08/19 19:08> - LABORATORY CBC & Chemistry Diagram: 07/09/19 05:40 07/09/19 05:40 - ADDITIONAL ORDERS Additional order review: 07/08/19 18:06 RBC 3.97 MCV 90.7 MCHC 33.9 RDW 12.8 MPV 8.1 Neutrophils % 53.2 Lymphocytes % 34.2 D Monocytes % 6.8 Eosinophils % 5.3 H Basophils % 0.5 - Medications Given in the ED: ED Medications Discontinued Medications Generic Name Dose Route Start Last Admin Trade Name Freq PRN Reason Stop Dose Admin Acetaminophen 1,000 mg 07/08/19 17:46 07/08/19 19:51 Ofirmev Injection - IVPB 07/08/19 17:47 1,000 mg ONCE ONE Administration Acetaminophen 650 mg 07/09/19 01:02 07/09/19 08:45 Tylenol - PO 650 mg Q6H PRN Administration PAIN LEVEL 7 - 10 Buspirone HCl 10 mg/ Buspirone 15 mg 07/09/19 06:00 07/09/19 07:20 HCl 5 mg PO 15 mg TID GABI Administration Carvedilol 3.125 mg 07/09/19 10:00 07/09/19 09:59 Coreg - PO 3.125 mg BID GABI Administration Clonazepam 1 mg 07/09/19 10:00 07/09/19 10:00 Klonopin - PO 1 mg BID GABI Administration Duloxetine HCl 30 mg 07/09/19 10:00 07/09/19 10:00 Cymbalta - PO 30 mg BID GABI Administration Gabapentin 600 mg 07/09/19 10:00 07/09/19 10:01 Neurontin - PO 600 mg BID GABI Administration Meropenem 1 gm/ Dextrose 100 mls @ 200 mls/hr 07/08/19 19:07 07/08/19 20:05 IVPB 07/08/19 19:36 200 mls/hr ONCE ONE Administration Insulin Aspart 1 vial 07/09/19 07:00 07/09/19 11:59 Novolog Vial Sliding Scale - SQ Not Given ACHS [facility] Protocol Magnesium Oxide 800 mg 07/09/19 07:16 07/09/19 08:43 Mag-Ox - PO 07/09/19 07:17 800 mg ONCE ONE Administration Morphine Sulfate 4 mg 07/08/19 19:08 07/08/19 19:52 Morphine Injection - IVPUSH 07/08/19 19:09 4 mg ONCE ONE Administration Pantoprazole Sodium 20 mg 07/09/19 10:00 07/09/19 10:00 Protonix - PO 20 mg DAILY GABI Administration Pramipexole Dihydrochloride 0.25 mg 07/09/19 10:00 07/09/19 10:00 Mirapex - PO 0.25 mg BID GABI Administration Sodium Chloride 1,000 ml 07/08/19 18:48 07/08/19 19:52 Normal Saline - IV 07/08/19 18:49 1,000 ml ONCE ONE Administration Tizanidine HCl 2 mg 07/09/19 01:07 07/09/19 08:45 Tizanidine Hcl PO 2 mg TID PRN Administration PAIN Topiramate 25 mg 07/09/19 10:00 07/09/19 10:12 Topamax - PO 25 mg BID GABI Administration <Jillian Sky - Last Filed: 07/09/19 17:12> Medical Decision Making - Medical Decision Making The pt is a 54F with a PMH of DM, anxiety, anorexia, HFrEF (40-45%), CAD, HLD, depression, and [place] (2010 s/p pacemaker 2011) who presents s/p syncopal fall from standing. ED Course CMP, CBC, Trop I, UA, UCx ECG CXR CT head and c-spine Will give Ofirmev for ROBERTS/generalized pain 07/08/19 17:59 CXR w/o acute pathology 07/08/19 18:16 No leukocytosis No anemia Lytes unremarkable No NEYMAR LFTs unremarkable Trop I neg 07/08/19 18:49 ECG w/ sinus rhythm; HR 65; 1st degree block (RI 232); no JOAN; abn ecg CT head/c-spine pending UA pending Will give Meropenem based on sensitivities Morphine 4mg IV once for pain Pt signed out to Dr. Beaulieu 07/08/19 19:08 <Alexandro Luong - Last Filed: 07/08/19 19:08> Discharge - Discharge Information Problems reviewed: Yes <Alexandro Luong - Last Filed: 07/08/19 19:08> - Admission Yes <Jillian Sky - Last Filed: 07/09/19 17:12> - Discharge Information Clinical Impression/Diagnosis: Syncope Qualifiers: Syncope type: unspecified Qualified Code(s): R55 - Syncope and collapse Urinary tract infection Qualifiers: Urinary tract infection type: site unspecified Hematuria presence: without hematuria Qualified Code(s): N39.0 - Urinary tract infection, site not specified Condition: Stable
[2019-07-08] MEDS ORDERED: ACETAMINOPHEN 1000 MG/100 ML VIAL (NON FORMULARY) IVPB ONE (17:46)
--- NOTE | 2019-07-08 18:06 | PDOC ---
Attending Attestation - Resident Resident Name: Alexandro Luong - ED Attending Attestation I have performed the following: I have examined & evaluated the patient, The case was reviewed & discussed with the resident, I agree w/resident's findings & plan - HPI HPI: 07/08/19 18:06 The pt is a 54F with a PMH of DM, anxiety, anorexia, HFrEF (40-45%), CAD, HLD, depression, and [place] (2010 s/p pacemaker 2011) who presents s/p syncopal fall from standing. The pt reports she was standing for several minutes, felt dizzy, the her vision went dark and she fell to the floor. She awoke shortly after and her mother had to help her off of the floor. She denies chest pain before or after the incident. She endorses a L ROBERTS that is pressure-like and constant with radiation to her neck. She denies vision or sensation changes. She also reports midline neck pain since the time of the fall. She also notes that she was recently diagnosed with a UTI and was switched to macrobid from bactrim. She endorses lower abdominal discomfort, frequency, and difficulty with urination. She denies recent illness, fevers/chills, trouble breathing, diarrhea, blood in her stool or urine, or changes in strength/sensation. Pt reports taking all her medications this AM +marijuana and opioid use. 07/08/19 18:12 07/09/19 17:13 - Physicial Exam PE: 07/08/19 18:14 Agree with the resident's HPI and PE as documented in the electronic medical record. NAD, well appearing, alert, awake. EOMI, PERRL, nl conjunctiva, anicteric; neck supple. lungs clear, RRR, abdomen soft suprapubic TTP and bilateral flank TTP. No rebound, no guarding. PATEL x4, no focal neuro deficits. No peripheral edema. normal color for ethnicity, WWP. 07/08/19 19:10 - Medical Decision Making 07/08/19 18:10 Vital Signs Temp Pulse Resp BP Pulse Ox 98.3 F 68 14 110/61 07/08/19 17:13 07/08/19 17:13 07/08/19 17:13 07/08/19 17:13 ddx, syncope, acs, arrhythmia, anemia, metabolic derangements. dehydration, infection. drug intox, withdrawal VS wnl, afebrile +abdominal pain and urinary retention. Urine culture from 07/01/19 with citrobacter and strep b agalactiae reviewed sensitivities, resistances noted. meropenem/carbapenems with lowest REDD start meropenem for early pyelo given flank and abdominal pain and positive urine culture as documented CT imaging unremarkable for bleed or injuries. trop neg, labs unremarkable, reassuring. admit for IV abx, ID eval, abdominal pain, pyelo, hydration and pain control. syncope workup. 07/08/19 18:14 07/08/19 19:11 07/09/19 17:13 Heart Score/ECG Review #1 ECG reviewed & interpreted by me at: 18:20 General ECG Interpretation: Sinus Rhythm, Normal Rate, Normal Intervals 07/08/19 18:39 nsr at 65 bpm, nonspecific t wave abnormalities, no elevations. low voltage waves, poor R wave progression.
[2019-07-08 18:25] LABS: BASO % 0.5 % (0-2.0); EOS % 5.3 % (0-4.5); HEMOGLOBIN 12.2 GM/dL (10.7-15.3); LYMPH % 34.2 % (8-40); MCH 30.8 pg (25.7-33.7); MCHC 33.9 g/dl (32.0-36.0); MEAN CELL VOLUME 90.7 fl (80-96); MEAN PLT VOLUME 8.1 fl (7.5-11.1); MONO % 6.8 % (3.8-10.2); NEUT % 53.2 % (42.8-82.8); PLATELET COUNT 190 K/MM3 (134-434); RBC 3.97 M/mm3 (3.60-5.2); RDW 12.8 % (11.6-15.6); WHITE BLOOD COUNT 5.6 K/mm3 (4.0-10.0)
[2019-07-08 18:42] LABS: ALBUMIN 3.9 g/dl (3.4-5.0); BILIRUBIN,TOTAL 0.5 mg/dL (0.2-1); BLOOD UREA NITROGEN 10.5 mg/dL (7-18); CALCIUM 8.6 mg/dL (8.5-10.1); POTASSIUM 4.1 mmol/L (3.5-5.1); TOT PROT 6.6 g/dl (6.4-8.2)
[2019-07-08] MEDS ORDERED: SODIUM CHLORIDE 0.9% 500 ML INFUS.BAG IV ONE (18:48)
[2019-07-08 18:57] LABS: MAGNESIUM 1.7 mg/dL (1.8-2.4)
[2019-07-08] MEDS ORDERED: MEROPENEM 1 GM in DEXTROSE 5%-WATER 100 ML IVPB ONE (19:07)
[2019-07-08] MEDS ORDERED: morphine CARPU-JECT 4 MG/1 ML DISP.SYRIN IVPUSH ONE (19:08)
[2019-07-08] MEDS ORDERED: ACETAMINOPHEN INJECTION 100 ML IVPB ONE (19:34)
[2019-07-08] MEDS ORDERED: MEROPENEM 1 GM VIAL (RESTRICTED TO ID) IVPB ONE (19:35)
[2019-07-08] MEDS ORDERED: morphine SULFATE 4 MG/ML VIAL ONE (19:37)
[2019-07-08 20:40] LABS: URINE APPEARANCE CLEAR; URINE BILIRUBIN NEGATIVE (NEGATIVE); URINE COLOR YELLOW; URINE GLUCOSE (UA) NEGATIVE (NEGATIVE); URINE KETONE NEGATIVE (NEGATIVE); URINE LEUK ESTERASE NEGATIVE (NEGATIVE); URINE NITRITE NEGATIVE (NEGATIVE); URINE PROTEIN NEGATIVE (NEGATIVE); URINE UROBILINOGEN 0.2 mg/dL (0.2-1.0)
[2019-07-09 00:33] LABS: PHOSPHOROUS 3.4 mg/dL (2.5-4.9)
[2019-07-09] MEDS ORDERED: ACETAMINOPHEN 325 MG TABLET (FP) PO PRN (01:02)
--- NOTE | 2019-07-09 01:04 | PN ---
Teaching Attending Note Name of Resident: Brenda Acosta ATTENDING PHYSICIAN STATEMENT I saw and evaluated the patient. I reviewed the resident's note and discussed the case with the resident. I agree with the resident's findings and plan as documented. SUBJECTIVE: This is a 54 year old woman with a history of HTN, hyperlipidemia, CAD with stent, ischemic cardiomyopathy, chronic systolic heart failure, ICD, recurrent syncope, type 2 DM, COPD, anorexia, depression, anxiety, chronic pain , fibromyalgia, ISELA who comes to the ED after passing out. She says that while going to open a door, she suddenly became dizzy, had palpitations, and lost her vision. She awoke on the floor and says she was confused. She does not think she hit her head. She had been admitted 06/14-06/19 with abdominal pain. Work-up was unrevealing and outpatient capsule endoscopy was recommended. It was also recommended that she have her ICD interrogated which she says was done. She says her PCP has also recommended a holter monitor and neurology evaluation. She was seen in the ED for lightheadedness on 07/01. She was diagnosed with a UTI and discharged on Bactrim. She says that she received a call yesterday advising her that the antibiotic needed to be changed based on culture results. She is not sure which antibiotic she started. OBJECTIVE: Vital Signs Period Temp Pulse Resp BP Sys/Riley Pulse Ox Last 24 Hr 97.1 F-98.3 F 56-68 14-18 106-121/31-61 98-98 HEART: S1S2, RRR LUNGS: Clear ABDOMEN: Soft, non-tender, non-distended, normal BS EXTREMITIES: No edema NEUROLOGICAL: Alert, oriented, non-focal Laboratory Tests 07/08/19 07/08/19 07/08/19 17:57 18:06 18:06 WBC 5.6 RBC 3.97 Hgb 12.2 Hct 36.0 MCV 90.7 MCH 30.8 MCHC 33.9 RDW 12.8 Plt Count 190 MPV 8.1 Absolute Neuts (auto) 3.0 Neutrophils % 53.2 Lymphocytes % 34.2 D Monocytes % 6.8 Eosinophils % 5.3 H Basophils % 0.5 Nucleated RBC % 0 Sodium 140 Potassium 4.1 Chloride 110 H Carbon Dioxide 24 Anion Gap 7 L BUN 10.5 Creatinine 1.0 Est GFR (CKD-EPI)AfAm 73.45 Est GFR (CKD-EPI)NonAf 63.37 Random Glucose 73 L Calcium 8.6 Phosphorus 3.4 Magnesium 1.7 L Total Bilirubin 0.5 AST 7 L ALT 13 Alkaline Phosphatase 59 Troponin I < 0.02 Total Protein 6.6 Albumin 3.9 TSH 1.31 Urine Color Urine Appearance Urine pH Ur Specific [place] Urine Protein Urine Glucose (UA) Urine Ketones Urine Blood Urine Nitrite Urine Bilirubin Urine Urobilinogen Ur Leukocyte Esterase 07/08/19 20:28 WBC RBC Hgb Hct MCV MCH MCHC RDW Plt Count MPV Absolute Neuts (auto) Neutrophils % Lymphocytes % Monocytes % Eosinophils % Basophils % Nucleated RBC % Sodium Potassium Chloride Carbon Dioxide Anion Gap BUN Creatinine Est GFR (CKD-EPI)AfAm Est GFR (CKD-EPI)NonAf Random Glucose Calcium Phosphorus Magnesium Total Bilirubin AST ALT Alkaline Phosphatase Troponin I Total Protein Albumin TSH Urine Color Yellow Urine Appearance Clear Urine pH 5.0 Ur Specific [place] 1.009 L Urine Protein Negative Urine Glucose (UA) Negative Urine Ketones Negative Urine Blood Negative Urine Nitrite Negative Urine Bilirubin Negative Urine Urobilinogen 0.2 Ur Leukocyte Esterase Negative Home Medications Medication Instructions Recorded Atorvastatin Ca [Lipitor] 40 mg PO HS 04/15/16 Gabapentin 600 mg PO QID 04/15/16 Topiramate 50 mg PO BID 04/15/16 Buspirone HCl 15 mg PO TID 11/07/17 Tizanidine HCl 2 mg PO TID PRN 11/07/17 Carvedilol [Coreg -] 3.125 mg PO BID #60 tablet 11/09/17 Duloxetine HCl [Cymbalta] 30 mg PO BID 12/01/18 Clonazepam [Klonopin] 1 mg PO BID 06/14/19 Metformin HCl [Glucophage] 1,000 mg PO BID 06/14/19 Pramipexole Di-HCl [Mirapex] 0.25 mg PO BID 06/14/19 Sitagliptin Phosphate [Januvia] 100 mg PO DAILY 06/14/19 clonazePAM [Klonopin -] 0.5 mg PO DAILY 06/14/19 traZODone HCL [Trazodone HCl] 100 mg PO BID 06/18/19 Pantoprazole Sodium [Protonix -] 20 mg PO DAILY #30 tablet.ec 06/19/19 ASSESSMENT AND PLAN: This is a 54 year old woman with a history of HTN, hyperlipidemia, CAD with stent, ischemic cardiomyopathy, chronic systolic heart failure, ICD, recurrent syncope, type 2 DM, COPD, anorexia, depression, anxiety, chronic pain, fibromyalgia, restless legs syndrome, ISELA who presented to the ED after passing out. 1. Syncope, recurrent - Monitor on telemetry - Check orthostatics - Monitor for hypoglycemia (glucose 73 at presentation) - Cardiology, neurology evaluations 2. Hypomagnesemia - Supplement magnesium 3. No evidence of UTI - UA from 07/02 showed trace LE, 5 WBC, 185.5 bacteria, 11.6 epithelial cells , and culture grew 20,000-30,000 Citrobacter, 20,000-30,000 group B Strep - Patient is asymptomatic - UA today is negative - Discontinue antibiotics 4. Chronic systolic heart failure secondary to ischemic cardiomyopathy - Stable - Continue Coreg 5. CAD, history of PCI and stent - Continue Coreg, Lipitor 6. HTN - Continue Coreg 7. Hyperlipidemia - Continue Lipitor 8. Type 2 DM - Hold metformin, Januvia for possible hypoglycemia - Fingersticks with Novolog sliding scale 9. COPD - Stable 10. Depression/anxiety, fibromyalgia, chronic pain, anorexia nervosa - Continue Cymbalta, Trazodone, BuSpar, Klonopin, Neurontin, Topamax 11. Restless legs syndrome - Continue Mirapex, Neurontin, Klonopin 12. ISELA - Non-compliant with CPAP
[2019-07-09] MEDS ORDERED: TIZANIDINE HCL 2 MG TABLET PO PRN (01:07)
[2019-07-09] MEDS ORDERED: ONDANSETRON 8 MG TABLET (FP) PO PRN (01:09)
--- NOTE | 2019-07-09 01:12 | HP ---
CHIEF COMPLAINT:syncope PCP:clint HISTORY OF PRESENT ILLNESS: 54 yo F PMH of NIDDM, HTN, HFrEF, CAD s/p 1 stent (2010), [place] ( s/p pacemaker 2011) ,HLD, anorexia, and COPD (not on home O2) , anxiety, depression, anorexia , presents to ED for syncopal events. pt states this has been ongoing and has been worsening especially over the past week. pt states she has syncopal events approx 3 x/day. she states that before these events she has severe headaches that radiate down her neck and shoulders. she states she also has severe abdominal pain. prior to syncopal events she gets palpitations. pt states she loses consciousness from syncopal events. she states she has seen her PCP who recommended her to see her card mounter for holter monitoring and a neurologist. pt states she saw her card mounter after her recent hospitalization who interrogated her device. Pt was last seen in the ED and treated for UTI approx 1 week ago. Pt denies any urinary complaints. ER course was notable for: (1)CT head: neg for acute pathology (2)CT abdomen/ pelvis: see below, neg for pyelo (3)s/p meropenem x 1 dose Recent Travel:denies PAST MEDICAL HISTORY:NIDDM, HTN, HFrEF, CAD s/p 1 stent (2010), [place] ( s/p pacemaker 2011) ,HLD, anorexia, and COPD (not on home O2) , anxiety, depression , anorexia PAST SURGICAL HISTORY:pacemaker, stent Social History: Smoking:denies Alcohol:denies Drugs: marijuana use ,occasional Allergies No Known Allergies Allergy (Verified 07/01/19 19:39) HOME MEDICATIONS: Home Medications Medication Instructions Recorded Atorvastatin Ca [Lipitor] 40 mg PO HS 04/15/16 Gabapentin 600 mg PO QID 04/15/16 Topiramate 50 mg PO BID 04/15/16 Buspirone HCl 15 mg PO TID 11/07/17 Tizanidine HCl 2 mg PO TID PRN 11/07/17 Carvedilol [Coreg -] 3.125 mg PO BID #60 tablet 11/09/17 Duloxetine HCl [Cymbalta] 30 mg PO BID 12/01/18 Clonazepam [Klonopin] 1 mg PO BID 06/14/19 Metformin HCl [Glucophage] 1,000 mg PO BID 06/14/19 Pramipexole Di-HCl [Mirapex] 0.25 mg PO BID 06/14/19 Sitagliptin Phosphate [Januvia] 100 mg PO DAILY 06/14/19 clonazePAM [Klonopin -] 0.5 mg PO DAILY 06/14/19 traZODone HCL [Trazodone HCl] 100 mg PO BID 06/18/19 Pantoprazole Sodium [Protonix -] 20 mg PO DAILY #30 tablet.ec 06/19/19 REVIEW OF SYSTEMS CONSTITUTIONAL: Present: chills, weight loss , generalized weakness Absent: fever, diaphoresis, malaise, loss of appetite HEENT: Present: throat pain Absent: rhinorrhea, nasal congestion, throat swelling, difficulty swallowing, mouth swelling, ear pain, eye pain, visual changes CARDIOVASCULAR: Present: palpitations , syncope Absent: chest pain, irregular heart rate, lightheadedness, peripheral edema RESPIRATORY: Absent: cough, shortness of breath, dyspnea with exertion, orthopnea, wheezing, stridor, hemoptysis GASTROINTESTINAL: Present: abdominal pain , nausea Absent: abdominal distension, vomiting, diarrhea, constipation, melena, hematochezia GENITOURINARY: Absent: dysuria, frequency, urgency, hesitancy, hematuria, flank pain, genital pain MUSCULOSKELETAL: Present: neck pain, back pain Absent: myalgia, arthralgia, joint swelling SKIN: Absent: rash, itching, pallor HEMATOLOGIC/IMMUNOLOGIC: Absent: easy bleeding, easy bruising, lymphadenopathy, frequent infections ENDOCRINE: Absent: unexplained weight gain, unexplained weight loss, heat intolerance, cold intolerance NEUROLOGIC: Present: headache Absent: focal weakness or paresthesias, dizziness, unsteady gait, seizure, mental status changes, bladder or bowel incontinence PSYCHIATRIC: Present: anxiety Absent: depression, suicidal or homicidal ideation, hallucinations. PHYSICAL EXAMINATION Vital Signs - 24 hr 07/08/19 07/08/19 07/08/19 17:13 18:00 18:40 Temperature 98.3 F 97.1 F L Pulse Rate 68 58 L Pulse Rate [ 58 L Right Radial] Respiratory 14 18 Rate Blood Pressure 110/61 Blood Pressure 106/55 L [Right Arm] O2 Sat by Pulse 98 98 Oximetry (%) 07/08/19 07/08/19 18:49 21:05 Temperature Pulse Rate Pulse Rate [ 56 L Right Radial] Respiratory 17 Rate Blood Pressure Blood Pressure 121/31 L [Right Arm] O2 Sat by Pulse 98 98 Oximetry (%) GENERAL: Awake, alert, and fully oriented, in no acute distress. HEAD: Normal with no signs of trauma. EYES: Pupils equal, round and reactive to light, extraocular movements intact, sclera anicteric, conjunctiva clear. EARS, NOSE, THROAT: nares patent, oropharynx clear without exudates. Moist mucous membranes. NECK: Normal range of motion, supple without lymphadenopathy, or masses. +JVD LUNGS: Breath sounds equal, clear to auscultation bilaterally. No wheezes. No accessory muscle use. HEART: Regular rate and rhythm, normal S1 and S2 without murmur, rub or gallop. ABDOMEN: Soft, diffusely tender to palpation, not distended, normoactive bowel sounds, no guarding, no rebound, no masses. MUSCULOSKELETAL: Normal range of motion at all joints. No bony deformities or tenderness. CVA tenderness. UPPER EXTREMITIES: 2+ pulses, warm, well-perfused. No cyanosis. No clubbing. No peripheral edema. LOWER EXTREMITIES: 2+ pulses, warm, well-perfused. No calf tenderness. No peripheral edema. NEUROLOGICAL: Cranial nerves II-XII intact. Normal speech.. PSYCHIATRIC: Cooperative. Good eye contact. Appropriate mood and affect. SKIN: Warm, dry, normal turgor, no rashes or lesions noted, normal capillary refill. Laboratory Last Values WBC 5.6 K/mm3 (4.0-10.0) 07/08/19 18:06 RBC 3.97 M/mm3 (3.60-5.2) 07/08/19 18:06 Hgb 12.2 GM/dL (10.7-15.3) 07/08/19 18:06 Hct 36.0 % (32.4-45.2) 07/08/19 18:06 MCV 90.7 fl (80-96) 07/08/19 18:06 MCH 30.8 pg (25.7-33.7) 07/08/19 18:06 MCHC 33.9 g/dl (32.0-36.0) 07/08/19 18:06 RDW 12.8 % (11.6-15.6) 07/08/19 18:06 Plt Count 190 K/MM3 (134-434) 07/08/19 18:06 MPV 8.1 fl (7.5-11.1) 07/08/19 18:06 Absolute Neuts (auto) 3.0 K/mm3 (1.5-8.0) 07/08/19 18:06 Neutrophils % 53.2 % (42.8-82.8) 07/08/19 18:06 Lymphocytes % 34.2 % (8-40) D 07/08/19 18:06 Monocytes % 6.8 % (3.8-10.2) 07/08/19 18:06 Eosinophils % 5.3 % (0-4.5) H 07/08/19 18:06 Basophils % 0.5 % (0-2.0) 07/08/19 18:06 Nucleated RBC % 0 % (0-0) 07/08/19 18:06 Sodium 140 mmol/L (136-145) 07/08/19 18:06 Potassium 4.1 mmol/L (3.5-5.1) 07/08/19 18:06 Chloride 110 mmol/L (98-107) H 07/08/19 18:06 Carbon Dioxide 24 mmol/L (21-32) 07/08/19 18:06 Anion Gap 7 MMOL/L (8-16) L 07/08/19 18:06 BUN 10.5 mg/dL (7-18) 07/08/19 18:06 Creatinine 1.0 mg/dL (0.55-1.3) 07/08/19 18:06 Est GFR (CKD-EPI)AfAm 73.45 07/08/19 18:06 Est GFR (CKD-EPI)NonAf 63.37 07/08/19 18:06 Random Glucose 73 mg/dL (74-106) L 07/08/19 18:06 Calcium 8.6 mg/dL (8.5-10.1) 07/08/19 18:06 Phosphorus 3.4 mg/dL (2.5-4.9) 07/08/19 18:06 Magnesium 1.7 mg/dL (1.8-2.4) L 07/08/19 17:57 Total Bilirubin 0.5 mg/dL (0.2-1) 07/08/19 18:06 AST 7 U/L (15-37) L 07/08/19 18:06 ALT 13 U/L (13-61) 07/08/19 18:06 Alkaline Phosphatase 59 U/L (45-117) 07/08/19 18:06 Troponin I < 0.02 ng/ml (0.00-0.05) 07/08/19 17:57 Total Protein 6.6 g/dl (6.4-8.2) 07/08/19 18:06 Albumin 3.9 g/dl (3.4-5.0) 07/08/19 18:06 TSH 1.31 uIU/ml (0.358-3.74) 07/08/19 18:06 Urine Color Yellow 07/08/19 20:28 Urine Appearance Clear 07/08/19 20:28 Urine pH 5.0 (5.0-8.0) 07/08/19 20:28 Ur Specific [place] 1.009 (1.010-1.035) L 07/08/19 20:28 Urine Protein Negative (NEGATIVE) 07/08/19 20:28 Urine Glucose (UA) Negative (NEGATIVE) 07/08/19 20:28 Urine Ketones Negative (NEGATIVE) 07/08/19 20:28 Urine Blood Negative (NEGATIVE) 07/08/19 20:28 Urine Nitrite Negative (NEGATIVE) 07/08/19 20:28 Urine Bilirubin Negative (NEGATIVE) 07/08/19 20:28 Urine Urobilinogen 0.2 mg/dL (0.2-1.0) 07/08/19 20:28 Ur Leukocyte Esterase Negative (NEGATIVE) 07/08/19 20:28 06/14/19: Echo: Moderate decreased LV systolic fxn, normal RV size and fxn, pacemaker in RV, tr TR ASSESSMENT/PLAN: 54 yo F PMH of NIDDM, HTN, HFrEF, CAD s/p 1 stent (2010), [place] ( s/p pacemaker 2011) ,HLD, anorexia, and COPD (not on home O2) , anxiety, depression, anorexia , presents to ED for syncopal events. pt is admitted to tele obs for syncope Syncope r/o cardiac arrhythmia - continue tele monitoring - TSH 1.31 - EKG reviewed, 1st degree HB , no acute changes from prior EKG -device interrogation, if not already done -cardiac recs appreciated - UA negative, disregard UCx, DC meropenem - encourage PO hydration -CT head negative for acute intracranial pathology -pending CT C spine - neuro recs appreciated -pt on many medications, possibly 2/2 polypharmacy? -fall risk precautions DM - r/o hypoglycemic events - hold metformin and januvia -BGM, ISS HFrEF - c/w coreg -Echo 06/2019 LVEF 40-45% -strict I/Os, daily weights CAD -s/p PCI, stent - c/w lipitor, coreg HTN - continue coreg Anxiety, chronic pain, anorexia - continue home medication regimen: cymbalta, trazodone, buspar, klonopin, neurontin, topamax Restleg leg syndome -continue home meds: mirapex, neurontin, klonopin COPD, ISELA -saturating well on RA - consider sleep study, PFTs -non compliant with CPAP F/E/N - monitor lytes - sodium/diabetic diet Dispo: tele obs Visit type - Emergency Visit Emergency Visit: Yes ED Registration Date: 07/08/19 Care time: The patient presented to the Emergency Department on the above date and was hospitalized for further evaluation of their emergent condition. - New Patient This patient is new to me today: Yes Date on this admission: 07/09/19 - Critical Care Critical Care patient: No ATTENDING PHYSICIAN STATEMENT I saw and evaluated the patient. I reviewed the resident's note and discussed the case with the resident. I agree with the resident's findings and plan as documented. SUBJECTIVE: OBJECTIVE: ASSESSMENT AND PLAN:
[2019-07-09] MEDS ORDERED: BUSPIRONE HCL 15 MG PO SCH (06:00)
[2019-07-09] MEDS ORDERED: BUSPIRONE HCL 10 MG, BUSPIRONE HCL 5 MG PO SCH (06:00)
[2019-07-09 06:45] LABS: BASO % 0.5 % (0-2.0); EOS % 5.4 % (0-4.5); HEMATOCRIT 33.3 % (32.4-45.2); HEMOGLOBIN 11.6 GM/dL (10.7-15.3); LYMPH % 35.6 % (8-40); MCHC 34.8 g/dl (32.0-36.0); MEAN CELL VOLUME 89.3 fl (80-96); MEAN PLT VOLUME 8.1 fl (7.5-11.1); MONO % 7.2 % (3.8-10.2); NEUT % 51.3 % (42.8-82.8); PLATELET COUNT 165 K/MM3 (134-434); RBC 3.73 M/mm3 (3.60-5.2); RDW 12.8 % (11.6-15.6); WHITE BLOOD COUNT 5.3 K/mm3 (4.0-10.0)
[2019-07-09 07:04] LABS: ALBUMIN 3.5 g/dl (3.4-5.0); BILIRUBIN,TOTAL 0.4 mg/dL (0.2-1); BLOOD UREA NITROGEN 9.8 mg/dL (7-18); CALCIUM 8.1 mg/dL (8.5-10.1); CREATININE 0.8 mg/dL (0.55-1.3); MAGNESIUM 1.7 mg/dL (1.8-2.4); PHOSPHOROUS 3.6 mg/dL (2.5-4.9); POTASSIUM 3.5 mmol/L (3.5-5.1); TOT PROT 6.1 g/dl (6.4-8.2)
[2019-07-09] MEDS ORDERED: MAGNESIUM OXIDE 400 MG TABLET (FP) PO ONE (07:16)
[2019-07-09] MEDS ORDERED: busPIRone HCL 5 MG TABLET ONE (07:16)
[2019-07-09] MEDS: INSULIN SLIDING SCALE (NOVOLOG) 1 VIAL SQ SCH ×2 (07:31→11:59)
--- NOTE | 2019-07-09 08:54 | CONSULT ---
Consult - text type - Consultation Consultation Note: Neurology CHIEF COMPLAINT:syncope PCP: Dr. Barry HISTORY OF PRESENT ILLNESS: 54 yo F PMH of NIDDM, HTN, HFrEF, CAD s/p 1 stent (2010), CA ( s/p pacemaker 2011) ,HLD, anorexia, and COPD (not on home O2) , anxiety, depression, anorexia , presents to ED for syncopal events, reportedly had been occurring for several months. She stated this has been ongoing and has been worsening especially over the past week prior to admission. pt stated she has syncopal events approx 3 x/ day. she stated that before these events she has severe headaches that radiate down her neck and shoulders. she stated she also has severe abdominal pain, prior to syncopal events, she gets palpitations. pt stated she loses consciousness from syncopal events. she stated she has seen her PCP who recommended her to see her chief of internal medicine for holter monitoring and a neurologist. pt states she saw her chief of internal medicine after her recent hospitalization who interrogated her device. Pt received IV antibiotics in ER. Abdomen pelvis ct completed, resulting pending. Cervical spine CT completed, results pending. Head CT completed in Er, negative for acute pathology. ECHO completed, moderate decreased LV systolic fxn, normal RV size and fxn, pacemaker in RV. Pt was last seen in the ED and treated for UTI approx 1 week ago. Pt denies any urinary complaints. Neurologically, sshe is fatigued appearing but otherwise awake, alert, interactive and answering all questions. She is on multiple medications as listed below for her chronic medical issues. Reports taking gabapentin twice a day not four times a day as listed and trazadone only at night. Would recommended reducing trazadone to 50 at bedtime and topamax to 25mg twice daily as these two can certainly lead to fatigue and mental status disruption. Is NOT on excessively high doses of any medication listed but combination of all of the above can certainly impact mental status Recent Travel:denies PAST MEDICAL HISTORY:NIDDM, HTN, HFrEF, CAD s/p 1 stent (2010), CA ( s/p pacemaker 2011) ,HLD, anorexia, and COPD (not on home O2) , anxiety, depression , anorexia PAST SURGICAL HISTORY:pacemaker, stent Social History: Smoking:denies Alcohol:denies Drugs: marijuana use ,occasional Family: HTN Allergies No Known Allergies Allergy (Verified 07/01/19 19:39) HOME MEDICATIONS: Ambulatory Orders Atorvastatin Ca [Lipitor] 40 mg PO HS 04/15/16 Gabapentin 600 mg PO QID 04/15/16 Topiramate 50 mg PO BID 04/15/16 Buspirone HCl 15 mg PO TID 11/07/17 Tizanidine HCl 2 mg PO TID PRN 11/07/17 Carvedilol [Coreg -] 3.125 mg PO BID #60 tablet 11/09/17 Duloxetine HCl [Cymbalta] 30 mg PO BID 12/01/18 Clonazepam [Klonopin] 1 mg PO BID 06/14/19 Metformin HCl [Glucophage] 1,000 mg PO BID 06/14/19 Pramipexole Di-HCl [Mirapex] 0.25 mg PO BID 06/14/19 Sitagliptin Phosphate [Januvia] 100 mg PO DAILY 06/14/19 clonazePAM [Klonopin -] 0.5 mg PO DAILY 06/14/19 traZODone HCL [Trazodone HCl] 100 mg PO BID 06/18/19 Pantoprazole Sodium [Protonix -] 20 mg PO DAILY #30 tablet.ec 06/19/19 Active Medications Acetaminophen (Tylenol -) 650 mg PO Q6H PRN PRN Reason: PAIN LEVEL 7 - 10 Atorvastatin Calcium (Lipitor -) 40 mg PO HS [facility] Buspirone HCl 10 mg/ Buspirone (HCl 5 mg) 15 mg PO TID [facility] Last Admin: 07/09/19 07:20 Dose: 15 mg Carvedilol (Coreg -) 3.125 mg PO BID [facility] Clonazepam (Klonopin -) 1 mg PO BID [facility] Duloxetine HCl (Cymbalta -) 30 mg PO BID [facility] Gabapentin (Neurontin -) 600 mg PO QID [facility] Insulin Aspart (Novolog Vial Sliding Scale -) 1 vial SQ ACHS [facility]; Protocol Last Admin: 07/09/19 07:31 Dose: Not Given Ondansetron HCl (Zofran -) 8 mg PO Q8H PRN PRN Reason: NAUSEA Pantoprazole Sodium (Protonix -) 20 mg PO DAILY [facility] Pramipexole Dihydrochloride (Mirapex -) 0.25 mg PO BID [facility] Tizanidine HCl (Tizanidine Hcl) 2 mg PO TID PRN PRN Reason: PAIN Topiramate (Topamax -) 50 mg PO BID GABI Trazodone HCl (Desyrel -) 100 mg PO BID [facility] REVIEW OF SYSTEMS CONSTITUTIONAL: Present: chills, weight loss , generalized weakness Absent: fever, diaphoresis, malaise, loss of appetite HEENT: Present: throat pain Absent: rhinorrhea, nasal congestion, throat swelling, difficulty swallowing, mouth swelling, ear pain, eye pain, visual changes CARDIOVASCULAR: Present: palpitations , syncope Absent: chest pain, irregular heart rate, lightheadedness, peripheral edema RESPIRATORY: Absent: cough, shortness of breath, dyspnea with exertion, orthopnea, wheezing, stridor, hemoptysis GASTROINTESTINAL: Present: abdominal pain , nausea Absent: abdominal distension, vomiting, diarrhea, constipation, melena, hematochezia GENITOURINARY: Absent: dysuria, frequency, urgency, hesitancy, hematuria, flank pain, genital pain MUSCULOSKELETAL: Present: neck pain, back pain Absent: myalgia, arthralgia, joint swelling SKIN: Absent: rash, itching, pallor HEMATOLOGIC/IMMUNOLOGIC: Absent: easy bleeding, easy bruising, lymphadenopathy, frequent infections ENDOCRINE: Absent: unexplained weight gain, unexplained weight loss, heat intolerance, cold intolerance NEUROLOGIC: Present: headache Absent: focal weakness or paresthesias, dizziness, unsteady gait, seizure, mental status changes, bladder or bowel incontinence PSYCHIATRIC: Present: anxiety Absent: depression, suicidal or homicidal ideation, hallucinations. PHYSICAL EXAMINATION Vital Signs Period Temp Pulse Resp BP Sys/Riley Pulse Ox Last 24 Hr 97.1 F-98.3 F 56-68 14-19 95-121/31-66 95-98 GENERAL: Awake, alert, and fully oriented, in no acute distress. HEAD: Normal with no signs of trauma. EYES: Pupils equal, round and reactive to light, extraocular movements intact, sclera anicteric, conjunctiva clear. EARS, NOSE, THROAT: nares patent, oropharynx clear without exudates. Moist mucous membranes. NECK: Normal range of motion, supple without lymphadenopathy, or masses. +JVD LUNGS: Breath sounds equal, clear to auscultation bilaterally. No wheezes. No accessory muscle use. HEART: Regular rate and rhythm, normal S1 and S2 without murmur, rub or gallop. ABDOMEN: Soft, diffusely tender to palpation, not distended, normoactive bowel sounds, no guarding, no rebound, no masses. MUSCULOSKELETAL: Normal range of motion at all joints. No bony deformities or tenderness. CVA tenderness. UPPER EXTREMITIES: 2+ pulses, warm, well-perfused. No cyanosis. No clubbing. No peripheral edema. LOWER EXTREMITIES: 2+ pulses, warm, well-perfused. No calf tenderness. No peripheral edema. NEUROLOGICAL: Cranial nerves II-XII intact. Normal speech.. PSYCHIATRIC: Cooperative. Good eye contact. Appropriate mood and affect. SKIN: Warm, dry, normal turgor, no rashes or lesions noted, normal capillary refill. CBCD WBC 5.3 K/mm3 (4.0-10.0) 07/09/19 05:40 RBC 3.73 M/mm3 (3.60-5.2) 07/09/19 05:40 Hgb 11.6 GM/dL (10.7-15.3) 07/09/19 05:40 Hct 33.3 % (32.4-45.2) 07/09/19 05:40 MCV 89.3 fl (80-96) 07/09/19 05:40 MCHC 34.8 g/dl (32.0-36.0) 07/09/19 05:40 RDW 12.8 % (11.6-15.6) 07/09/19 05:40 Plt Count 165 K/MM3 (134-434) 07/09/19 05:40 MPV 8.1 fl (7.5-11.1) 07/09/19 05:40 CMP Sodium 143 mmol/L (136-145) 07/09/19 05:40 Potassium 3.5 mmol/L (3.5-5.1) 07/09/19 05:40 Chloride 114 mmol/L (98-107) H 07/09/19 05:40 Carbon Dioxide 24 mmol/L (21-32) 07/09/19 05:40 Anion Gap 5 MMOL/L (8-16) L 07/09/19 05:40 BUN 9.8 mg/dL (7-18) 07/09/19 05:40 Creatinine 0.8 mg/dL (0.55-1.3) 07/09/19 05:40 Random Glucose 77 mg/dL (74-106) 07/09/19 05:40 Calcium 8.1 mg/dL (8.5-10.1) L 07/09/19 05:40 Total Bilirubin 0.4 mg/dL (0.2-1) 07/09/19 05:40 AST 8 U/L (15-37) L 07/09/19 05:40 ALT 13 U/L (13-61) 07/09/19 05:40 Alkaline Phosphatase 54 U/L (45-117) 07/09/19 05:40 Total Protein 6.1 g/dl (6.4-8.2) L 07/09/19 05:40 Albumin 3.5 g/dl (3.4-5.0) 07/09/19 05:40 CARDIAC ENZYMES Troponin I < 0.02 ng/ml (0.00-0.05) 07/08/19 17:57 Echo: Moderate decreased LV systolic fxn, normal RV size and fxn, pacemaker in RV, tr TR ASSESSMENT/PLAN: 54 yo F PMH of NIDDM, HTN, HFrEF, CAD s/p 1 stent (2010), CA ( s/p pacemaker 2011) ,HLD, anorexia, and COPD (not on home O2) , anxiety, depression, anorexia , presents to ED for syncopal events, reportedly had been occurring for several months. She stated this has been ongoing and has been worsening especially over the past week prior to admission. pt stated she has syncopal events approx 3 x/ day. she stated that before these events she has severe headaches that radiate down her neck and shoulders. she stated she also has severe abdominal pain, prior to syncopal events, she gets palpitations. pt stated she loses consciousness from syncopal events. she stated she has seen her PCP who recommended her to see her chief of internal medicine for holter monitoring and a neurologist. pt states she saw her chief of internal medicine after her recent hospitalization who interrogated her device. Pt received IV antibiotics in ER. Abdomen pelvis ct completed, resulting pending. Cervical spine CT completed, results pending. Head CT completed in Er, negative for acute pathology. ECHO completed, moderate decreased LV systolic fxn, normal RV size and fxn, pacemaker in RV. Pt was last seen in the ED and treated for UTI approx 1 week ago. Pt denies any urinary complaints. Neurologically, sshe is fatigued appearing but otherwise awake, alert, interactive and answering all questions. She is on multiple medications as listed below for her chronic medical issues. Reports taking gabapentin twice a day not four times a day as listed and trazadone only at night. Would recommended reducing trazadone to 50 at bedtime and topamax to 25mg twice daily as these two can certainly lead to fatigue and mental status disruption. Is NOT on excessively high doses of any medication listed but combination of all of the above can certainly impact mental status. Continue medical management, monitor for urinary tract infectious etiology, defer antibiotics to primary team. Maintain adequate hydration monitor mental status. Monitor blood pressure, maintain normotensive range, cardiac evaluation and follow-up recommended. No focal deficits that would require further MRI at this point and CT had completed and negative for acute changes.
--- NOTE | 2019-07-09 09:50 | CON.CARD ---
Consult Consult Specialty:: Cardiology Referred by:: Hospitalist Medicine Reason for Consultation:: Syncope - History of Present Illness Chief Complaint: Syncope History of Present Illness: Patient is a 54 year old female with underlying history of CAD, DC, S/P PCI/LEVI to LAD in 2010, ischemic cardiomyopathy HFrEF (last EF 35%) S/P ICD in 2011, patent stent demonstrated by cath in 2016, HTN, hypercholesterolemia, NIDDM, COPD and OSAS not on cpap, anxiety, depression, anorexia nervosa, sigmoid diverticulitis, chronic pain, fibromyalgia, restless leg syndrome presents for dizziness, palpitations, and lost her vision. She awoke on the floor and says she was confused. She does not think she hit her head. She had been admitted 06/14-06/19 with abdominal pain. Work-up was unrevealing and outpatient capsule endoscopy was recommended. It was also recommended that she have her ICD interrogated which she says was done. She says her PCP has also recommended a holter monitor and neurology evaluation. She was seen in the ED for lightheadedness on 07/01. She was diagnosed with a UTI and discharged on Bactrim. She says that she received a call yesterday advising her that the antibiotic needed to be changed based on culture results. She is not sure which antibiotic she started. She reports poor oral intake at baseline and chronic constipation. She reports she has had anorexia nervosa since she's been 11 years old, tried multiple inpatient programs which have failed. She does not see an outpt psychiatrist. She denies chest pain, shocks, palpitations, orthopnea, PND or LE edema. Last visit 04/18/2019. - History Source History Provided By: Patient Limitations to Obtaining History: No Limitations - Past Medical History Cardio/Vascular: Yes: CAD, CHF, HTN, Hyperlipdemia, DC, Other (ICD,S/P PCI/LEVI) Pulmonary: Yes: COPD (CPAP at home), Sleep Apnea (CPAP at home but only uses 3- 4x/week at night) Gastrointestinal: Yes: Constipation, Hemorrhoids Renal/: Yes: Renal Inusuff (past episode of NEYMAR) Psych: Yes: Anxiety, Other (body dysmorphic disorder) Musculoskeletal: Yes: Chronic low back pain Rheumatology: Yes: Fibromyalgia Endocrine: Yes: Diabetes Mellitus - Past Surgical History Past Surgical History: Yes: AICD, Colonoscopy, , Stent - Alcohol/Substance Use Hx Alcohol Use: No History of Substance Use: reports: None - Smoking History Smoking history: Current some day smoker Have you smoked in the past 12 months: Yes Aproximately how many cigarettes per day: 10 If you are a former smoker, when did you quit?: 2014 - Social History Usual Living Arrangement: With Spouse (rafiq) ADL: Independent History of Recent Travel: No Home Medications - Allergies Allergies/Adverse Reactions: Allergies Allergy/AdvReac Type Severity Reaction Status Date / Time No Known Allergies Allergy Verified 07/01/19 19:39 - Home Medications Home Medications: Ambulatory Orders Atorvastatin Ca [Lipitor] 40 mg PO HS 04/15/16 Gabapentin 600 mg PO QID 04/15/16 Buspirone HCl 15 mg PO TID 11/07/17 Tizanidine HCl 2 mg PO TID PRN 11/07/17 Carvedilol [Coreg -] 3.125 mg PO BID #60 tablet 11/09/17 Duloxetine HCl [Cymbalta] 30 mg PO BID 12/01/18 Clonazepam [Klonopin] 1 mg PO BID 06/14/19 Metformin HCl [Glucophage] 1,000 mg PO BID 06/14/19 Pramipexole Di-HCl [Mirapex] 0.25 mg PO BID 06/14/19 Sitagliptin Phosphate [Januvia] 100 mg PO DAILY 06/14/19 clonazePAM [Klonopin -] 0.5 mg PO DAILY@1200 06/14/19 Pantoprazole Sodium [Protonix -] 20 mg PO DAILY #30 tablet.ec 06/19/19 Magnesium Oxide 400 mg PO DAILY #5 tablet 07/09/19 Topiramate [Topamax -] 25 mg PO BID #60 tablet 07/09/19 traZODone HCL [Trazodone HCl] 50 mg PO HS #30 tablet 07/09/19 Review of Systems - Review of Systems Neurological: reports: Syncope Vital Signs: Vital Signs Temperature 97.9 F 07/09/19 07:01 Pulse Rate 65 07/09/19 07:01 Respiratory Rate 07/09/19 07:01 Blood Pressure 95/66 07/09/19 07:01 O2 Sat by Pulse Oximetry (%) 98 07/09/19 07:01 Constitutional: Yes: No Distress, Calm Neck: Yes: Supple Respiratory: Yes: Regular, CTA Bilaterally Gastrointestinal: Yes: Normal Bowel Sounds, Soft Cardiovascular: Yes: Regular Rate and Rhythm JVD: No Carotid Bruit: No Heart Sounds: Yes: S1, S2 Murmur: Yes: Systolic Murmur, Grade 1 Edema: No - Other Data Labs, Other Data: CBC, BMP 07/09/19 05:40 07/09/19 05:40 Troponin, BNP 07/08/19 17:57 Troponin I < 0.02 Troponin, BNP 07/08/19 17:57 Troponin I < 0.02 SR @ 65 1st deg AVB PRWP Ejection Fraction %: LVEF < 40 % Imaging - Results Chest X-ray: Report Reviewed (NAD) Cat Scan: Report Reviewed (HCT: No acute changes) Problem List - Problems (1) Anorexia nervosa Code(s): F50.00 - ANOREXIA NERVOSA, UNSPECIFIED (2) Anxiety Code(s): F41.9 - ANXIETY DISORDER, UNSPECIFIED (3) CAD (coronary artery disease) Code(s): I25.10 - ATHSCL HEART DISEASE OF [place] CORONARY ARTERY W/O ANG PCTRS Qualifiers: Coronary Disease-Associated Artery/Lesion type: [place] artery [place] vs. transplanted heart: [place] heart Associated angina: without angina Qualified Code(s): I25.10 - Atherosclerotic heart disease of [place] coronary artery without angina pectoris (4) CHF (congestive heart failure) Code(s): I50.9 - HEART FAILURE, UNSPECIFIED Qualifiers: Heart failure type: systolic Heart failure chronicity: chronic Qualified Code(s): I50.22 - Chronic systolic (congestive) heart failure (5) COPD (chronic obstructive pulmonary disease) Code(s): J44.9 - CHRONIC OBSTRUCTIVE PULMONARY DISEASE, UNSPECIFIED Qualifiers: COPD type: unspecified COPD Qualified Code(s): J44.9 - Chronic obstructive pulmonary disease, unspecified (6) Chronic left ventricular systolic dysfunction Code(s): I51.9 - HEART DISEASE, UNSPECIFIED (7) Depression Code(s): F32.9 - MAJOR DEPRESSIVE DISORDER, SINGLE EPISODE, UNSPECIFIED (8) Eating disorder Code(s): F50.9 - EATING DISORDER, UNSPECIFIED (9) Hyperlipidemia Code(s): E78.5 - HYPERLIPIDEMIA, UNSPECIFIED Qualifiers: Hyperlipidemia type: pure hypercholesterolemia Qualified Code(s): E78.00 - Pure hypercholesterolemia, unspecified; E78.0 - Pure hypercholesterolemia (10) Hypotension due to drugs Code(s): I95.2 - HYPOTENSION DUE TO DRUGS (11) Restless leg syndrome Code(s): G25.81 - RESTLESS LEGS SYNDROME (12) Single implantable cardioverter-defibrillator (ICD) in situ Code(s): Z95.810 - PRESENCE OF AUTOMATIC (IMPLANTABLE) CARDIAC DEFIBRILLATOR (13) Status post insertion of drug-eluting stent into left anterior descending artery for coronary artery disease Code(s): Z98.61 - CORONARY ANGIOPLASTY STATUS (14) Status post myocardial infarction of anterior wall Code(s): I25.2 - OLD MYOCARDIAL INFARCTION (15) Orthostatic hypotension Code(s): I95.1 - ORTHOSTATIC HYPOTENSION (16) Syncope Code(s): R55 - SYNCOPE AND COLLAPSE Qualifiers: Syncope type: unspecified Qualified Code(s): R55 - Syncope and collapse Assessment/Plan 1. Neurocardiogenic syncope +/- orthostatic syncope with recurrence, suspect polypharmacy contribution 2. CAD post PCI/stent, angina pectoris, stable 3. NEYMAR resolved 4. Ischemic cardiomyopathy with history of failure post prophylactic ICD implant , euvolemic 5. HTN 6. DM 7. Hypercholesterolemia 8. COPD 9. OSAS noncompliant with CPAP 10. Depression/anxiety, fibromyalgia, chronic pain, anorexia nervosa 11. Restless legs syndrome PLAN: 1. Continue Carvedilol 3.125 mg BID as tolerated 2. Resume Prinivil hemodynamics permitting as renal function stablized 3. Continue ASA 81 mg QD 4. Continue Lipitor 40 mg QHS 5. F/u in office [phone] and [employer] ICD interrogation as outpatient, most recently 04/18/2019 6. Thank you for consultative opportunity
[2019-07-09] MEDS ORDERED: clonazePAM 0.5 MG TABLET ONE (09:55)
[2019-07-09] MEDS ORDERED: DULoxetine HCL 30 MG CAPSULE.DR PO SCH (10:00)
[2019-07-09] MEDS ORDERED: TOPIRAMATE 25 MG TABLET (FP) PO SCH ×2 (10:00)
[2019-07-09] MEDS ORDERED: GABAPENTIN 300 MG CAPSULE (FP) PO SCH ×2 (10:00)
[2019-07-09] MEDS ORDERED: clonazePAM 0.5 MG TABLET PO SCH (10:00)
[2019-07-09] MEDS ORDERED: PANTOPRAZOLE 20 MG TABLET (FP) PO SCH (10:00)
[2019-07-09] MEDS ORDERED: PRAMIPEXOLE DIHYDROCHLORIDE 0.25 MG TABLET PO SCH (10:00)
[2019-07-09] MEDS ORDERED: traZODone HCL 100 MG TABLET (FP) PO SCH ×2 (10:00→22:00)
[2019-07-09] MEDS ORDERED: CARVEDILOL 3.125 MG TABLET (FP) PO SCH (10:00)
--- NOTE | 2019-07-09 11:29 | EKG ---
Test Reason : Blood Pressure : / mmHG Vent. Rate : 065 BPM Atrial Rate : 065 BPM P-R Int : 232 ms QRS Dur : 070 ms QT Int : 376 ms P-R-T Axes : 057 011 100 degrees QTc Int : 391 ms SINUS RHYTHM WITH 1ST DEGREE A-V BLOCK LOW VOLTAGE QRS CANNOT RULE OUT ANTEROSEPTAL INFARCT (CITED ON OR BEFORE 16-OCT-2014) ABNORMAL ECG WHEN COMPARED WITH ECG OF 01-JUL-2019 19:43, PA INTERVAL HAS INCREASED Confirmed by AKBAR HERNÁNDEZ MD ([id number]) on 07/09/2019 11:29:22 AM Referred By: Confirmed By:AKBAR HERNÁNDEZ MD
[2019-07-09 11:59] VITALS: TEMP 97.7
[2019-07-09 13:51] VITALS: BP 95/59; PULSE 62
--- NOTE | 2019-07-09 16:01 | PN ---
Teaching Attending Note Name of Resident: Lucas Redd ATTENDING PHYSICIAN STATEMENT I saw and evaluated the patient. I reviewed the resident's note and discussed the case with the resident. I agree with the resident's findings and plan as documented with exceptions below. SUBJECTIVE: patient seen and examined,sleeping comfortably, when woken up, no complaints. OBJECTIVE: Vital Signs Period Temp Pulse Resp BP Sys/Riley Pulse Ox Last 24 Hr 97.1 F-98.3 F 56-71 14-19 95-121/31-66 95-98 Intake & Output 07/06/19 07/07/19 07/08/19 07/09/19 23:59 23:59 23:59 23:59 Weight 108 lb 0.424 oz General: lying in bed, no acute distress chest: CTAB, no rales or wheezing Abdomen:Soft, vague left tenderness, none noted when distracted, no voluntary or involuntary guarding or rigidity Extremities: no edema Home Medications Medication Instructions Recorded Atorvastatin Ca [Lipitor] 40 mg PO HS 04/15/16 Gabapentin 600 mg PO QID 04/15/16 Buspirone HCl 15 mg PO TID 11/07/17 Tizanidine HCl 2 mg PO TID PRN 11/07/17 Carvedilol [Coreg -] 3.125 mg PO BID #60 tablet 11/09/17 Duloxetine HCl [Cymbalta] 30 mg PO BID 12/01/18 Clonazepam [Klonopin] 1 mg PO BID 06/14/19 Metformin HCl [Glucophage] 1,000 mg PO BID 06/14/19 Pramipexole Di-HCl [Mirapex] 0.25 mg PO BID 06/14/19 Sitagliptin Phosphate [Januvia] 100 mg PO DAILY 06/14/19 clonazePAM [Klonopin -] 0.5 mg PO DAILY@1200 06/14/19 Pantoprazole Sodium [Protonix -] 20 mg PO DAILY #30 tablet.ec 06/19/19 Magnesium Oxide 400 mg PO DAILY #5 tablet 07/09/19 Topiramate [Topamax -] 25 mg PO BID #60 tablet 07/09/19 traZODone HCL [Trazodone HCl] 50 mg PO HS #30 tablet 07/09/19 Laboratory Results - last 24 hr 07/08/19 07/08/19 07/08/19 17:57 18:06 18:06 WBC 5.6 RBC 3.97 Hgb 12.2 Hct 36.0 MCV 90.7 MCH 30.8 MCHC 33.9 RDW 12.8 Plt Count 190 MPV 8.1 Absolute Neuts (auto) 3.0 Neutrophils % 53.2 Lymphocytes % 34.2 D Monocytes % 6.8 Eosinophils % 5.3 H Basophils % 0.5 Nucleated RBC % 0 Sodium 140 Potassium 4.1 Chloride 110 H Carbon Dioxide 24 Anion Gap 7 L BUN 10.5 Creatinine 1.0 Est GFR (CKD-EPI)AfAm 73.45 Est GFR (CKD-EPI)NonAf 63.37 POC Glucometer Random Glucose 73 L Calcium 8.6 Phosphorus 3.4 Magnesium 1.7 L Total Bilirubin 0.5 AST 7 L ALT 13 Alkaline Phosphatase 59 Troponin I < 0.02 Total Protein 6.6 Albumin 3.9 TSH 1.31 Urine Color Urine Appearance Urine pH Ur Specific [place] Urine Protein Urine Glucose (UA) Urine Ketones Urine Blood Urine Nitrite Urine Bilirubin Urine Urobilinogen Ur Leukocyte Esterase 07/08/19 07/09/19 07/09/19 20:28 05:40 05:40 WBC 5.3 RBC 3.73 Hgb 11.6 Hct 33.3 MCV 89.3 MCH 31.0 MCHC 34.8 RDW 12.8 Plt Count 165 MPV 8.1 Absolute Neuts (auto) 2.7 Neutrophils % 51.3 Lymphocytes % 35.6 Monocytes % 7.2 Eosinophils % 5.4 H Basophils % 0.5 Nucleated RBC % 0 Sodium 143 Potassium 3.5 Chloride 114 H Carbon Dioxide 24 Anion Gap 5 L BUN 9.8 Creatinine 0.8 Est GFR (CKD-EPI)AfAm 96.19 Est GFR (CKD-EPI)NonAf 83.00 POC Glucometer Random Glucose 77 Calcium 8.1 L Phosphorus 3.6 Magnesium 1.7 L Total Bilirubin 0.4 AST 8 L ALT 13 Alkaline Phosphatase 54 Troponin I Total Protein 6.1 L Albumin 3.5 TSH Urine Color Yellow Urine Appearance Clear Urine pH 5.0 Ur Specific [place] 1.009 L Urine Protein Negative Urine Glucose (UA) Negative Urine Ketones Negative Urine Blood Negative Urine Nitrite Negative Urine Bilirubin Negative Urine Urobilinogen 0.2 Ur Leukocyte Esterase Negative 07/09/19 07/09/19 07:28 11:36 WBC RBC Hgb Hct MCV MCH MCHC RDW Plt Count MPV Absolute Neuts (auto) Neutrophils % Lymphocytes % Monocytes % Eosinophils % Basophils % Nucleated RBC % Sodium Potassium Chloride Carbon Dioxide Anion Gap BUN Creatinine Est GFR (CKD-EPI)AfAm Est GFR (CKD-EPI)NonAf POC Glucometer 85 144 Random Glucose Calcium Phosphorus Magnesium Total Bilirubin AST ALT Alkaline Phosphatase Troponin I Total Protein Albumin TSH Urine Color Urine Appearance Urine pH Ur Specific [place] Urine Protein Urine Glucose (UA) Urine Ketones Urine Blood Urine Nitrite Urine Bilirubin Urine Urobilinogen Ur Leukocyte Esterase telemetry no events ASSESSMENT AND PLAN: 54 yof with PMHx of NIDDM, HTN, ischemic cardiomyopathy, HFrEF (last EF 35%), CAD s/p LAD PCI x 1 in 2010, HLD, anorexia, and COPD (not on home o2), ISELA ( not on CPAP), admitted with chest pain, back/shoulder/abdominal and left leg pain -Syncope, weakness/?poor oral intake vs severe anxiety related, low suspicion for neuro/cardiac etiology -Chronic Abdominal Pain -Reported recent uncomplicated UTI -Generalized pain syndrome with shoulder/leg pain -NIDDM -HTN -ischemic cardiomyopathy/HFrEF (last EF 35%) -CAD s/p LAD PCI x 1 in 2010 -HLD -Anorexia -Generalized anxiety disorder -COPD not on home O2 -ISELA not on CPAP Plan: patient well known to me from recent admission. ACS ruled out no events on telemetry Cardiology/neurology input noted. outpatient follow up. Change trazodone to hs and change topamax per neuro recs. Extensive GI w/u on recent admission. patient has been tolerating diet well. Urine studies neg for UTI Strongly encouraged ongoing psych follow up Offered home VNS, patient strongly declines Dispo dc home today with close outpatient PCP and psych follow up.
--- NOTE | 2019-07-09 18:16 | DS ---
Physical Exam: SUBJECTIVE: Patient seen and examined at the bedside. Had multiple complaints of abdominal pain, back pain, weakness, dizziness, lightheadedness, general discomfort. Denied cp, sob, fevers, chills. OBJECTIVE: Vital Signs Period Temp Pulse Resp BP Sys/Riley Pulse Ox Last 24 Hr 97.7 F-98.3 F 56-71 15-19 95-121/31-66 95-98 PHYSICAL EXAM GENERAL: The patient is awake, alert, and fully oriented, in moderate acute distress. EYES: PERRL, extraocular movements intact, sclera anicteric, conjunctiva clear. ENT: Oropharynx clear without exudates, moist mucous membranes. LUNGS: Breath sounds equal, clear to auscultation bilaterally, no wheezes, no crackles, no accessory muscle use. HEART: Regular rate and rhythm, S1, S2 without murmur, rub or gallop. ABDOMEN: Soft, vague tenderness that appears and disappears, nondistended, normoactive bowel sounds, no guarding, no rebound, no masses. EXTREMITIES: 2+ pulses, warm, well-perfused, no edema. NEUROLOGICAL: Cranial nerves II through XII grossly intact. 4/5 muscle strength bilaterally upper and lower extremities. PSYCH: Normal mood, normal affect. SKIN: Warm, dry, normal turgor, no rashes or lesions noted. LABS Laboratory Results - last 24 hr 07/08/19 07/08/19 07/08/19 17:57 18:06 18:06 WBC 5.6 RBC 3.97 Hgb 12.2 Hct 36.0 MCV 90.7 MCH 30.8 MCHC 33.9 RDW 12.8 Plt Count 190 MPV 8.1 Absolute Neuts (auto) 3.0 Neutrophils % 53.2 Lymphocytes % 34.2 D Monocytes % 6.8 Eosinophils % 5.3 H Basophils % 0.5 Nucleated RBC % 0 Sodium 140 Potassium 4.1 Chloride 110 H Carbon Dioxide 24 Anion Gap 7 L BUN 10.5 Creatinine 1.0 Est GFR (CKD-EPI)AfAm 73.45 Est GFR (CKD-EPI)NonAf 63.37 POC Glucometer Random Glucose 73 L Calcium 8.6 Phosphorus 3.4 Magnesium 1.7 L Total Bilirubin 0.5 AST 7 L ALT 13 Alkaline Phosphatase 59 Troponin I < 0.02 Total Protein 6.6 Albumin 3.9 TSH 1.31 Urine Color Urine Appearance Urine pH Ur Specific [place] Urine Protein Urine Glucose (UA) Urine Ketones Urine Blood Urine Nitrite Urine Bilirubin Urine Urobilinogen Ur Leukocyte Esterase 07/08/19 07/09/19 07/09/19 20:28 05:40 05:40 WBC 5.3 RBC 3.73 Hgb 11.6 Hct 33.3 MCV 89.3 MCH 31.0 MCHC 34.8 RDW 12.8 Plt Count 165 MPV 8.1 Absolute Neuts (auto) 2.7 Neutrophils % 51.3 Lymphocytes % 35.6 Monocytes % 7.2 Eosinophils % 5.4 H Basophils % 0.5 Nucleated RBC % 0 Sodium 143 Potassium 3.5 Chloride 114 H Carbon Dioxide 24 Anion Gap 5 L BUN 9.8 Creatinine 0.8 Est GFR (CKD-EPI)AfAm 96.19 Est GFR (CKD-EPI)NonAf 83.00 POC Glucometer Random Glucose 77 Calcium 8.1 L Phosphorus 3.6 Magnesium 1.7 L Total Bilirubin 0.4 AST 8 L ALT 13 Alkaline Phosphatase 54 Troponin I Total Protein 6.1 L Albumin 3.5 TSH Urine Color Yellow Urine Appearance Clear Urine pH 5.0 Ur Specific [place] 1.009 L Urine Protein Negative Urine Glucose (UA) Negative Urine Ketones Negative Urine Blood Negative Urine Nitrite Negative Urine Bilirubin Negative Urine Urobilinogen 0.2 Ur Leukocyte Esterase Negative 07/09/19 07/09/19 07:28 11:36 WBC RBC Hgb Hct MCV MCH MCHC RDW Plt Count MPV Absolute Neuts (auto) Neutrophils % Lymphocytes % Monocytes % Eosinophils % Basophils % Nucleated RBC % Sodium Potassium Chloride Carbon Dioxide Anion Gap BUN Creatinine Est GFR (CKD-EPI)AfAm Est GFR (CKD-EPI)NonAf POC Glucometer 85 144 Random Glucose Calcium Phosphorus Magnesium Total Bilirubin AST ALT Alkaline Phosphatase Troponin I Total Protein Albumin TSH Urine Color Urine Appearance Urine pH Ur Specific [place] Urine Protein Urine Glucose (UA) Urine Ketones Urine Blood Urine Nitrite Urine Bilirubin Urine Urobilinogen Ur Leukocyte Esterase HOSPITAL COURSE: Jossie Edouard is a 54 year old female with a past medical history of NIDDM, HTN , HFrEF, CAD s/p 1 stent (2010), [place] ( s/p pacemaker 2011) ,HLD, anorexia, and COPD (not on home O2), anxiety, depression, anorexia, admitted to [facility] obs for syncope. Patient had EKG did not show any differences from previous admission. Recent echo from previous admission noted moderate decreased LV systolic function, normal RV size and function. Patient had abd CT and head CT performed which did not show any acute pathology. Patient was encouraged to have visiting nurse services and physical therapy which the patient denied. Was seen by neurology and advised to decrease doses of trazodone and topiramate. Was seen by cardiology and advised to follow up in the outpatient clinic to have interrogation of her pacemaker. Encouraged to follow up with her outpatient psychiatrist. Prescribed magnesium oxide for magnesium deficiency. Encouraged to have better diet. Patient was spoken to about the plan and was agreeable to the plan. Patient was discharged in stable medical condition. Date of Admission:07/08/19 Date of Discharge: 07/09/19 Minutes to complete discharge: 35 Discharge Summary Problems reviewed: Yes Reason For Visit: URINARY TRACT INFECTION,SYNCOPE,HYPERTENSION Condition: Stable - Instructions Diet, Activity, Other Instructions: You were admitted to the hospital because you had pains along with pain in your abdomen and legs. Scans of your heart were done on the previous admission which showed it was functioning as it has been earlier this year. We scanned your abdomen for any reasoning why you may have had abdominal pain and it was negative. You are encouraged to follow up and have an Endoscopic Ultrasound with a tin container straightener. Referral is included in the packet. We believe you are stable for discharge. You should follow up with your doctors and try to have appropriate levels of nutrition. You are encouraged to follow up with the family worker to have your pacemaker interrogated. MEDICATIONS: We have made the following changes to your medication regimen: CHANGE your dose of trazadone to 50mg at bedtime. CHANGE your dose of topiramate to 25mg twice a day. Start taking magnesium oxide 400mg daily for 5 days. You may continue taking the rest of your home medications as directed. REFERRALS: Please follow up with your family worker, Dr. Kemp, within 1 week. You are encouraged to follow up with the family worker to have your pacemaker interrogated. Please follow up with your primary care physician, Dr. Barry, in order to update her on this admission to the hospital and to keep up with your health maintenance. You may need further imaging of your uterus, please discuss this further with Dr. Barry. You need to have a repeat magnesium level done in 1 week. Please follow up with your psychiatrist, Dr. Haile within 1 week. Please follow up with your tin container straightener, Dr. Mtz, within 1 week. You can have the endoscopic ultrasound performed and follow up results of your endoscopy. Return to the emergency department if you have any chest pains, shortness of breath, abdominal pains, or worsening of your symptoms. SPECIAL INSTRUCTIONS: Please continue following up with your health care providers to manage your anorexia and do your best to maintain adequate nutrition. You are encouraged to keep well hydrated and eat healthy foods. You are encouraged to have VNS services that you have previously refused as they may help you with your medications and general caretaking at home. Please avoid taking medicines such as Ibuprofen or Motrin. If you have pain, consider taking Tylenol. Referrals: Eliseo Mtz DO [Staff Physician] - Marcus Kemp MD [Staff Physician] - Sandra Barry MD [Non Staff, Medical] - Disposition: HOME - Home Medications Comprehensive Discharge Medication List: Ambulatory Orders Atorvastatin Ca [Lipitor] 40 mg PO HS 04/15/16 Gabapentin 600 mg PO QID 04/15/16 Buspirone HCl 15 mg PO TID 11/07/17 Tizanidine HCl 2 mg PO TID PRN 11/07/17 Carvedilol [Coreg -] 3.125 mg PO BID #60 tablet 11/09/17 Duloxetine HCl [Cymbalta] 30 mg PO BID 12/01/18 Clonazepam [Klonopin] 1 mg PO BID 06/14/19 Metformin HCl [Glucophage] 1,000 mg PO BID 06/14/19 Pramipexole Di-HCl [Mirapex] 0.25 mg PO BID 06/14/19 Sitagliptin Phosphate [Januvia] 100 mg PO DAILY 06/14/19 clonazePAM [Klonopin -] 0.5 mg PO DAILY@1200 06/14/19 Pantoprazole Sodium [Protonix -] 20 mg PO DAILY #30 tablet.ec 06/19/19 Magnesium Oxide 400 mg PO DAILY #5 tablet 07/09/19 Topiramate [Topamax -] 25 mg PO BID #60 tablet 07/09/19 traZODone HCL [Trazodone HCl] 50 mg PO HS #30 tablet 07/09/19 Problem List - Problems (1) Syncope Code(s): R55 - SYNCOPE AND COLLAPSE Qualifiers: Syncope type: unspecified Qualified Code(s): R55 - Syncope and collapse (2) Anemia Code(s): D64.9 - ANEMIA, UNSPECIFIED (3) Anorexia nervosa Code(s): F50.00 - ANOREXIA NERVOSA, UNSPECIFIED (4) Anxiety Code(s): F41.9 - ANXIETY DISORDER, UNSPECIFIED (5) Back pain Code(s): M54.9 - DORSALGIA, UNSPECIFIED Qualifiers: Back pain location: low back pain Chronicity: acute Back pain laterality : unspecified Sciatica presence: without sciatica Qualified Code(s): M54.5 - Low back pain (6) CAD (coronary artery disease) Code(s): I25.10 - ATHSCL HEART DISEASE OF [place] CORONARY ARTERY W/O ANG PCTRS Qualifiers: Coronary Disease-Associated Artery/Lesion type: [place] artery [place] vs. transplanted heart: [place] heart Associated angina: without angina Qualified Code(s): I25.10 - Atherosclerotic heart disease of [place] coronary artery without angina pectoris (7) CHF (congestive heart failure) Code(s): I50.9 - HEART FAILURE, UNSPECIFIED Qualifiers: Heart failure type: systolic Heart failure chronicity: chronic Qualified Code(s): I50.22 - Chronic systolic (congestive) heart failure (8) COPD (chronic obstructive pulmonary disease) Code(s): J44.9 - CHRONIC OBSTRUCTIVE PULMONARY DISEASE, UNSPECIFIED Qualifiers: COPD type: unspecified COPD Qualified Code(s): J44.9 - Chronic obstructive pulmonary disease, unspecified (9) Depression Code(s): F32.9 - MAJOR DEPRESSIVE DISORDER, SINGLE EPISODE, UNSPECIFIED (10) Diabetes mellitus Code(s): E11.9 - TYPE 2 DIABETES MELLITUS WITHOUT COMPLICATIONS Qualifiers: Diabetes mellitus type: type 2 Diabetes mellitus termite inspector insulin use: without chcf use Diabetes mellitus complication status: with hyperglycemia Qualified Code(s): E11.65 - Type 2 diabetes mellitus with hyperglycemia (11) Hyperlipidemia Code(s): E78.5 - HYPERLIPIDEMIA, UNSPECIFIED Qualifiers: Hyperlipidemia type: pure hypercholesterolemia Qualified Code(s): E78.00 - Pure hypercholesterolemia, unspecified; E78.0 - Pure hypercholesterolemia (12) Hypertension Code(s): I10 - ESSENTIAL (PRIMARY) HYPERTENSION Qualifiers: Hypertension type: essential hypertension Qualified Code(s): I10 - Essential (primary) hypertension (13) Abdominal pain Code(s): R10.9 - UNSPECIFIED ABDOMINAL PAIN Qualifiers: Abdominal location: epigastric Qualified Code(s): R10.13 - Epigastric pain This patient is new to me today: Yes Date on this admission: 07/09/19 Emergency Visit: Yes ED Registration Date: 07/08/19 Care time: The patient presented to the Emergency Department on the above date and was hospitalized for further evaluation of their emergent condition. Critical Care patient: No - Discharge Referral Referred to [facility] Yes Physician Referral: Gaudencio Mtz DO (GI)
[2019-07-09] MEDS ORDERED: ATORVASTATIN CA 40 MG TABLET (FP) PO SCH (22:00)
== END 2019-07-09 14:30 | disposition home or self-care (01) ==
LOC: JER 16:58 → JERBED 18:14
PROVIDERS: ADMIT Internal Medicine; ATTEND Hospitalist
PROC: 3E03329 Introduction of Other Anti-infective into Peripheral Vein, Percutaneous Approach (ICD-10-PCS; principal; 2019-07-08)
PROC: 3E033NZ Introduction of Analgesics, Hypnotics, Sedatives into Peripheral Vein, Percutaneous Approach (ICD-10-PCS; 2019-07-08)
PROC: 3E0337Z Introduction of Electrolytic and Water Balance Substance into Peripheral Vein, Percutaneous Approach (ICD-10-PCS; 2019-07-08)
DX: R55 Syncope and collapse (principal); N39.0 Urinary tract infection, site not specified; I11.0 Hypertensive heart disease with heart failure; E78.5 Hyperlipidemia, unspecified; E11.9 Type 2 diabetes mellitus without complications; I50.22 Chronic systolic (congestive) heart failure; I25.10 Atherosclerotic heart disease of native coronary artery without angina pectoris; I25.2 Old myocardial infarction; F17.210 Nicotine dependence, cigarettes, uncomplicated; E83.42 Hypomagnesemia; I25.5 Ischemic cardiomyopathy; I51.9 Heart disease, unspecified; I95.2 Hypotension due to drugs; I95.1 Orthostatic hypotension; F50.9 Eating disorder, unspecified; F41.0 Panic disorder [episodic paroxysmal anxiety]; F41.9 Anxiety disorder, unspecified; F32.9 Major depressive disorder, single episode, unspecified; J44.9 Chronic obstructive pulmonary disease, unspecified; G25.81 Restless legs syndrome; M79.7 Fibromyalgia; G47.33 Obstructive sleep apnea (adult) (pediatric); F50.00 Anorexia nervosa, unspecified; Z95.5 Presence of coronary angioplasty implant and graft; Z79.84 Long term (current) use of oral hypoglycemic drugs; Z95.1 Presence of aortocoronary bypass graft; Z87.442 Personal history of urinary calculi; Z95.828 Presence of other vascular implants and grafts; Z91.19 Patient's noncompliance with other medical treatment and regimen
CPT/HCPCS: 36415; 70450-TC; 71045-TC-FY; 72125-TC; 74177-TC; 80053; 81003; 82962; 83735; 84100; 84443; 84484; 85025; 87086; 93005; 93010; 96365; 96367; 96375; 99285-25; G0378; J0131; Q9967

== ENCOUNTER 2020-01-30 09:51 | Emergency (ER) | payer OTHER ==
--- NOTE | 2020-01-30 09:58 | PDOC ---
Rapid Medical Evaluation Chief Complaint: Pain Medical Evaluation: Allergies Allergy/AdvReac Type Severity Reaction Status Date / Time No Known Allergies Allergy Verified 07/01/19 19:39 01/30/20 09:54 55 yo F h/o anxiety, DM, HTN, LA on asa c/o non bloody vomiting x 3 this am with LUQ and LLQ abd pain. denies d/f/c, sob, cp. noticed part of her upper bridge missing yesterday am. patient concerned she may have swallowed the missing part of the dental bridge. VSS speaking full sentences A/P: abdominal pain AXR r/o FB
[2020-01-30 10:22] VITALS: BMI 31.1
[2020-01-30] MEDS ORDERED: ACETAMINOPHEN 1000 MG/100 ML VIAL (NON FORMULARY) IVPB ONE (10:42)
[2020-01-30] MEDS ORDERED: ONDANSETRON 4 MG/2 ML VIAL IVPUSH ONE (10:42)
[2020-01-30] MEDS ORDERED: ACETAMINOPHEN INJECTION 100 ML IVPB ONE (10:45)
--- NOTE | 2020-01-30 10:45 | PDOC ---
History of Present Illness - General Chief Complaint: Pain Stated Complaint: ABD PAIN Time Seen by Provider: 01/30/20 10:26 - History of Present Illness Initial Comments: The pt is a 54F with a PMH of COPD, DM, anxiety, anorexia, bulimia, HFrEF (40- 45%), CAD, HLD, depression, diverticulitis, and [place] (2010 s/p pacemaker 2011) who presents for evaluation because she is concerned that she swallowed the dental portion of her bridge 2 days ago. She reports subsequent nausea and NBNB vomiting (but also has GERD) and states she has nausea/vomiting frequently during the month. She also reports 1 day of LLQ abd pain. Her pain is sharp, non-radiating, not associated with other known symptoms, and is not alleviated by anything she can identify. She states her last BM was 1 week ago but is normal for her. She cannot recall when the last time she had flatus Denies fevers/chills, chest pain, SOB, hematuria, blood in stool PCP: Dr. Sandra Wright 01/30/20 10:43 Past History - Medical History Allergies/Adverse Reactions: Allergies Allergy/AdvReac Type Severity Reaction Status Date / Time No Known Allergies Allergy Verified 01/30/20 09:55 Home Medications: Ambulatory Orders Atorvastatin Ca [Lipitor] 40 mg PO HS 04/15/16 Gabapentin 600 mg PO QID 04/15/16 Buspirone HCl 15 mg PO TID 11/07/17 Tizanidine HCl 2 mg PO TID PRN 11/07/17 Carvedilol [Coreg -] 3.125 mg PO BID #60 tablet 11/09/17 Duloxetine HCl [Cymbalta] 30 mg PO BID 12/01/18 Clonazepam [Klonopin] 1 mg PO BID 06/14/19 Metformin HCl [Glucophage] 1,000 mg PO BID 06/14/19 Pramipexole Di-HCl [Mirapex] 0.25 mg PO BID 06/14/19 Sitagliptin Phosphate [Januvia] 100 mg PO DAILY 06/14/19 clonazePAM [Klonopin -] 0.5 mg PO DAILY@1200 06/14/19 Pantoprazole Sodium [Protonix -] 20 mg PO DAILY #30 tablet.ec 06/19/19 Magnesium Oxide 400 mg PO DAILY #5 tablet 07/09/19 Topiramate [Topamax -] 25 mg PO BID #60 tablet 07/09/19 traZODone HCL [Trazodone HCl] 50 mg PO HS #30 tablet 07/09/19 Ibuprofen 600 mg PO Q6H PRN #30 tablet 01/30/20 Nitrofurantoin Monohyd/M-Cryst [Macrobid -] 100 mg PO BID #14 capsule 01/30/20 Anemia: No Asthma: No Cancer: No Cardiac Disorders: Yes (CAD, [place], Ischemic CMP) CVA: No COPD: No CHF: Yes (CHF, Pulm Edema) DVT: No Dementia: No Diabetes: No GI Disorders: Yes (Anorexia Nervosa, Constipation(BM weekly), Diverticulosis, Hemorrhoids,) Disorders: Yes (kidney stents, kidney stones, NEYMAR) HTN: Yes Hypercholesterolemia: Yes Liver Disease: No Psychiatric Problems: Yes (anxiety, anorexia, DEPRESSION.) Seizures: No Thyroid Disease: No - Surgical History Abdominal Surgery: Yes (ECTOPIC) Appendectomy: No Cardiac Surgery: Yes (cardiac cath, stent, ppm/aicd) Cholecystectomy: No Lung Surgery: No Neurologic Surgery: No Orthopedic Surgery: No - Immunization History Td Vaccination: Yes TDAP Vaccination: Yes Immunization Up to Date: No (no flu vaccine) - Psycho-Social/Smoking History Smoking Status: No Smoking History: Never smoked Years of Tobacco Use: 10 Have you smoked in the past 12 months: Yes Number of Cigarettes Smoked Daily: 10 If you are a former smoker, when did you quit?: 2015 Cigars Per Day: 0 Information on smoking cessation initiated: No 'Breaking Loose' booklet given: 12/15/14 - Substance Abuse Hx (Audit-C & DAST Scrn) How often the patient has a drink containing alcohol: Never Score: In Men: 4 or > Positive; In Women: 3 or > Positive: 0 Screen Result (Pos requires Nsg. Audit-10AR): Negative In the last yr the pt used illegal drug/Rx for NonMed reason: No Score: Yes response is considered Positive: 0 Screen Result (Positive result requires Nsg. DAST-10): Negative Review of Systems - Review of Systems Able to Perform ROS?: Yes Comments:: GENERAL/CONSTITUTIONAL: No fever or chills. No weakness HEAD, EYES, EARS, NOSE AND THROAT: No change in vision. No change in hearing. No sore throat CARDIOVASCULAR: No chest pain or shortness of breath RESPIRATORY: Denies hemoptysis GASTROINTESTINAL: +N/V/C GENITOURINARY: No change in urination MUSCULOSKELETAL: No joint or muscle swelling or pain. No neck or back pain SKIN: No rash NEUROLOGIC: No headache, vertigo, loss of consciousness, or change in strength/sensation ENDOCRINE: No increased thirst. No recent abnormal weight change HEMATOLOGIC/LYMPHATIC: No anemia, easy bleeding, or history of blood clots ALLERGIC/IMMUNOLOGIC: No hives or skin allergy 01/30/20 10:52 Is the patient limited Greek proficient: No *Physical Exam - Vital Signs Last Vital Signs Temp Pulse Resp BP Pulse Ox 99 F 96 H 19 142/84 97 01/30/20 09:53 01/30/20 09:53 01/30/20 09:53 01/30/20 09:53 01/30/20 09:53 - Physical Exam GENERAL: Awake, alert, and oriented to person/place/time, in no acute distress b ut easily tearful HEAD: No signs of trauma, normocephalic, atraumatic EYES: PERRLA, EOMI, sclera anicteric, conjunctiva clear ENT: Hearing grossly normal, nares patent, no intraoral lesions, oropharynx clear without exudates. Moist mucosa LUNGS: No distress, speaks in full sentences, clear to auscultation bilaterally HEART: Regular rate and rhythm, normal S1 and S2, no murmurs appreciated, peripheral pulses normal and equal bilaterally ABDOMEN: Soft, diffuse TTP maximal in LLQ w/o rebound or guarding, normoactive bowel sounds EXTREMITIES: Normal inspection, Normal range of motion, no edema. No clubbing or cyanosis NEUROLOGICAL: Cranial nerves II through XII grossly intact. Normal speech, nor mal gait, no focal sensorimotor deficits SKIN: Warm, Dry 01/30/20 10:54 ED Treatment Course - LABORATORY CBC & Chemistry Diagram: 01/30/20 11:15 01/30/20 14:50 - RADIOLOGY Radiology Studies Ordered: Category Date Time Status ABDOMEN & PELVIS CT WITH CONTR [CT] Stat CT Scan 01/30/20 10:40 Ordered Medical Decision Making - Medical Decision Making The pt is a 54F with a PMH of COPD, DM, anxiety, anorexia, bulimia, HFrEF (40- 45%), CAD, HLD, depression, diverticulitis, and [place] (2010 s/p pacemaker 2011) who presents for evaluation because she is concerned that she swallowed the dental portion of her bridge 2 days ago and 1d of LLQ pain. Pt not peritonitic Ddx: accidental ingestion, diverticulitis, consider UTI/pyelo, GERD, not likely ischemic bowel, not likely renal stone ED Course CMP, CBC, UA, UCx ECG CT A&P w/ IV contrast Ofirmev and Zofran for symptomatic relief 01/30/20 10:55 ECG w/ NSR; HR 73; QTc 427; no axis deviation; no acute ischemic changes No leukocytosis No anemia Lytes overall No NEYMAR LFTs unremarkable UA w/ evidence of UTI -Previous cultures sensitive to Macrobid Pt pending CT 01/30/20 12:[address] w/o acute pathology 01/30/20 15:28 Rx for macrobid sent to pt's pharmacy Plan for D/C w/ PCP f/u Discharge instructions and return precautions given Patient in agreement and verbalized understanding Dispo: Home 01/30/20 18:12 Discharge - Discharge Information Problems reviewed: Yes Clinical Impression/Diagnosis: Accidental ingestion of potentially harmful entity Abdominal pain Qualifiers: Abdominal location: left lower quadrant Qualified Code(s): R10.32 - Left lower quadrant pain UTI (urinary tract infection) Qualifiers: Urinary tract infection type: acute cystitis Hematuria presence: without hematuria Qualified Code(s): N30.00 - Acute cystitis without hematuria Condition: Stable Disposition: HOME - Admission No - Additional Discharge Information Prescriptions: Ibuprofen 600 mg PO Q6H PRN #30 tablet PRN Reason: Pain Nitrofurantoin Monohyd/M-Cryst [Macrobid -] 100 mg PO BID #14 capsule - Follow up/Referral Referrals: Sandra Barry MD [Primary Care Provider] - - Patient Discharge Instructions Patient Printed Discharge Instructions: DI for Urinary Tract Infection (UTI), DI for Abdominal Pain-Adult - Post Discharge Activity
--- NOTE | 2020-01-30 11:02 | PDOC ---
Documentation entered by Airam Gonzalez SCRIBE, acting as scribe for Damion De La Vega MD. Damion De La Vega MD: This documentation has been prepared by the Carlos cochran Ana, SCRIBE, under my direction and personally reviewed by me in its entirety. I confirm that the documentation accurately reflects all work, treatment, procedures, and medical decision making performed by me. Attending Attestation - Resident Resident Name: Alexandro Luong - ED Attending Attestation I have performed the following: I have examined & evaluated the patient, The case was reviewed & discussed with the resident, I agree w/resident's findings & plan, Exceptions are as noted - HPI HPI: 01/30/20 10:26 Patient is a 55 year old female with a significant past medical history of smoking, COPD, DM, anxiety, anorexia, bulimia, HFrEF (40-45%), CAD, HLD, d epression, diverticulitis, GERD, and [place] (2010 s/p pacemaker 2011), who presents to the ED thinking she swallowed part of her dental bridge with subsequent NBNB vomiting and nonraditaing abdominal pain x 1 day. Patient said she woke up yesterday morning and could not find the other half of her dental bridge so she thinks she swallowed it. Patient said she woke up this morning feeling nauseous and had 3 episodes of NBNB vomiting which she said was non-induced. Patient disclosed she has not bad a bowel movement in about a week in a half and cannot recall the last time she passed gas. Patient denies: fevers, chills, or any other related symptoms Allergies: NKDA PCP: Dr. Sandra Barry - Physicial Exam PE: 01/30/20 11:03 See resident exam - Medical Decision Making 01/30/20 11:03 55 F with abdominal pain, tender in LLQ on exam. Suspect diverticulitis. - Labs - CTAP 01/30/20 15:40 Labs notable for UTI CT unremarkable Pt is well appearing, with normal vitals. Clinically stable for DC at this time. I discussed the physical exam findings, ancillary test results and final diagnoses with the patient. I answered all of the patient's questions. The patient was satisfied with the care received and felt comfortable with the discharge plan and treatment plan. The patient agrees to follow up with the primary care physician within 24-72 hours. Please note this patient was evaluated during the COVID-19 crisis with the presidential [place] Act Declaration and the [place] governor executive order number 202. He/she was evaluated and clinical decisions were made relative to healthcare system resources as well as clinical picture during a pandemic crisis situation. Discharge - Discharge Information Problems reviewed: Yes Clinical Impression/Diagnosis: Accidental ingestion of potentially harmful entity Abdominal pain Qualifiers: Abdominal location: left lower quadrant Qualified Code(s): R10.32 - Left lower quadrant pain UTI (urinary tract infection) Qualifiers: Urinary tract infection type: acute cystitis Hematuria presence: without hematuria Qualified Code(s): N30.00 - Acute cystitis without hematuria Condition: Stable Disposition: HOME - Additional Discharge Information Prescriptions: Ibuprofen 600 mg PO Q6H PRN #30 tablet PRN Reason: Pain Nitrofurantoin Monohyd/M-Cryst [Macrobid -] 100 mg PO BID #14 capsule - Follow up/Referral Referrals: Sandra Barry MD [Primary Care Provider] - - Patient Discharge Instructions Patient Printed Discharge Instructions: DI for Urinary Tract Infection (UTI), DI for Abdominal Pain-Adult - Post Discharge Activity
[2020-01-30 11:47] LABS: BASO % 0.7 % (0-2.0); EOS % 6.8 % (0-4.5); HEMOGLOBIN 12.9 GM/dL (10.7-15.3); LYMPH % 21.6 % (8-40); MCH 30.8 pg (25.7-33.7); MEAN CELL VOLUME 90.5 fl (80-96); MEAN PLT VOLUME 7.4 fl (7.5-11.1); MONO % 6.1 % (3.8-10.2); NEUT % 64.8 % (42.8-82.8); PLATELET COUNT 216 K/MM3 (134-434); RDW 13.4 % (11.6-15.6); WHITE BLOOD COUNT 8.7 K/mm3 (4.0-10.0)
[2020-01-30 11:50] LABS: EPI CELLS 7 /uL (0-25.1); HYALINE CASTS 3 /uL (0-3.1); URINE APPEARANCE TURBID; URINE BACTERIA 237 /uL (0-1359); URINE BILIRUBIN NEGATIVE (NEGATIVE); URINE COLOR YELLOW; URINE GLUCOSE (UA) 2+ (NEGATIVE); URINE KETONE NEGATIVE (NEGATIVE); URINE LEUK ESTERASE 2+ (NEGATIVE); URINE NITRITE NEGATIVE (NEGATIVE); URINE PROTEIN NEGATIVE (NEGATIVE); URINE RBC 13 /uL (0-23.9); URINE WBC 515 /uL (0-25.8)
[2020-01-30 12:17] LABS: ALBUMIN 3.6 g/dl (3.4-5.0); BILIRUBIN,TOTAL 0.3 mg/dL (0.2-1); CALCIUM 8.8 mg/dL (8.5-10.1); CREATININE 0.7 mg/dL (0.55-1.3); TOT PROT 7.8 g/dl (6.4-8.2)
[2020-01-30 12:25] LABS: POTASSIUM 6.7 mmol/L (3.5-5.1)
--- NOTE | 2020-01-30 12:47 | EKG ---
Test Reason : Blood Pressure : / mmHG Vent. Rate : 073 BPM Atrial Rate : 073 BPM P-R Int : 186 ms QRS Dur : 074 ms QT Int : 388 ms P-R-T Axes : 039 013 076 degrees QTc Int : 427 ms NORMAL SINUS RHYTHM ANTEROSEPTAL INFARCT (CITED ON OR BEFORE 16-OCT-2014) ABNORMAL ECG WHEN COMPARED WITH ECG OF 08-JUL-2019 18:20, CT INTERVAL HAS DECREASED Confirmed by MD JHONY, GREER ([id number]) on 01/30/2020 12:46:46 PM Referred By: Confirmed By:GREER BOOKER MD
[2020-01-30] MEDS ORDERED: IBUPROFEN 400 MG TABLET (FP) PO ONE ×2 (14:29→15:49)
[2020-01-30] MEDS ORDERED: LIDOCAINE 5% TOPICAL PATCH TP ONE (14:29)
[2020-01-30 15:27] LABS: BLOOD UREA NITROGEN 7.1 mg/dL (7-18); CALCIUM 8.8 mg/dL (8.5-10.1); CREATININE 0.7 mg/dL (0.55-1.3); POTASSIUM 3.9 mmol/L (3.5-5.1)
[2020-01-30] MEDS ORDERED: LIDOCAINE 5% TOPICAL PATCH ONE (15:49)
[2020-01-30 16:03] VITALS: BP 138/77; PULSE 81; TEMP 98.2
[2020-01-30] MEDS ORDERED: LIDOCAINE PATCH REMOVAL MC SCH (22:00)
== END 2020-01-30 16:03 | disposition home or self-care (01) ==
LOC: JER 09:51
PROC: 3E0333Z Introduction of Anti-inflammatory into Peripheral Vein, Percutaneous Approach (ICD-10-PCS; principal; 2020-01-30)
PROC: 3E033GC Introduction of Other Therapeutic Substance into Peripheral Vein, Percutaneous Approach (ICD-10-PCS; 2020-01-30)
DX: R10.32 Left lower quadrant pain (principal)
CPT/HCPCS: 36415; 74177-TC; 80048; 80053; 81003; 85025; 87086; 87186; 93005; 93010; 99285-25; J0131; Q9967

== ENCOUNTER 2020-07-14 18:57 | Observation (INO) | payer OTHER ==
[2020-07-14 19:07] VITALS: BMI 29.2
[2020-07-14 21:53] LABS: CHLORIDE 106 mmol/L (98-107); POTASSIUM 3.4 mmol/L (3.5-5.1); SODIUM 139 mmol/L (136-145)
[2020-07-14 21:55] LABS: CALCIUM 8.6 mg/dL (8.5-10.1)
[2020-07-14 21:56] LABS: ALBUMIN 3.9 g/dl (3.4-5.0); ANION GAP 7 MMOL/L (8-16); BLOOD UREA NITROGEN 11.3 mg/dL (7-18); CO2 26 mmol/L (21-32); GLUCOSE,RANDOM 113 mg/dL (74-106)
[2020-07-14 21:57] LABS: BASO % 0.5 % (0-2.0); EOS % 3.1 % (0-4.5); HEMATOCRIT 37.8 % (32.4-45.2); HEMOGLOBIN 12.7 GM/dL (10.7-15.3); LYMPH % 20.4 % (8-40); MCH 30.7 pg (25.7-33.7); MCHC 33.7 g/dl (32.0-36.0); MEAN CELL VOLUME 91.1 fl (80-96); MEAN PLT VOLUME 7.3 fl (7.5-11.1); PLATELET COUNT 249 K/MM3 (134-434); RBC 4.15 M/mm3 (3.60-5.2)
[2020-07-14 21:59] LABS: CREATININE 0.7 mg/dL (0.55-1.3); SGOT/AST 15 U/L (15-37); SGPT/ALT 31 U/L (13-61)
[2020-07-14 22:00] LABS: BILIRUBIN,TOTAL 0.4 mg/dL (0.2-1); TOT PROT 7.6 g/dl (6.4-8.2)
[2020-07-14 22:02] LABS: ALK PHOS 130 U/L (45-117)
[2020-07-14 22:04] LABS: INR 1.05 (0.83-1.09); PROTHROMBIN TIME (PATIENT) 12.9 SEC (9.7-13.0)
[2020-07-14] MEDS ORDERED: POTASSIUM CHLORIDE ORAL LIQUID 20 MEQ/15 ML PO ONE (22:06)
[2020-07-14 22:07] LABS: ACTIVATED PTT 27.7 SECONDS (25.2-36.5)
[2020-07-14] MEDS ORDERED: ASPIRIN 81 MG CHEWABLE TABLETS PO ONE (22:19)
[2020-07-14] MEDS ORDERED: ACETAMINOPHEN 1000 MG/100 ML VIAL (NON FORMULARY) IVPB ONE (22:19)
[2020-07-14] MEDS ORDERED: POTASSIUM CHLORIDE ORAL LIQUID 20 MEQ/15 ML ONE (22:20)
[2020-07-14] MEDS ORDERED: ASPIRIN 81 MG CHEWABLE TABLETS ONE (22:28)
[2020-07-14] MEDS ORDERED: ACETAMINOPHEN INJECTION 100 ML IVPB ONE (22:29)
[2020-07-14 22:32] LABS: LIPASE 96 U/L (73-393)
[2020-07-14 22:35] LABS: PHOSPHOROUS 3.1 mg/dL (2.5-4.9)
[2020-07-14 22:36] LABS: LDH 206 U/L (84-246)
[2020-07-14 22:40] LABS: N-TERMINAL BNP 661.2 pg/ml (5-125)
[2020-07-14] MEDS ORDERED: FAMOTIDINE 20 MG/50 ML IVPB 20 MG/50 ML MG IVPB ONE (23:21)
[2020-07-14] MEDS ORDERED: MAG HYDROX/AL HYDROX/SIMETH 30 ML UNIT-DOSE CUP PO ONE (23:21)
[2020-07-15] MEDS ORDERED: MAG HYDROX/AL HYDROX/SIMETH 30 ML UNIT-DOSE CUP ONE (00:05)
[2020-07-15] MEDS ORDERED: FAMOTIDINE 20 MG/50 ML IVPB 20 MG/50 ML MG IVPB ONE (00:05)
[2020-07-15] MEDS ORDERED: CEFTRIAXONE 1 G/50 ML PREMIX 50 ML IVPB ONE (03:45)
[2020-07-15] MEDS ORDERED: ACETAMINOPHEN 1000 MG/100 ML VIAL (NON FORMULARY) IVPB PRN (03:57)
[2020-07-15] MEDS ORDERED: SODIUM CHLORIDE 1,000 ML IV SCH (04:00)
[2020-07-15] MEDS ORDERED: CEFTRIAXONE 1 GM in DEXTROSE 5%-WATER - 50 ML IVPB SCH (04:04)
[2020-07-15] MEDS ORDERED: ACETAMINOPHEN INJECTION 100 ML IVPB ONE (04:11)
[2020-07-15 05:02] LABS: EPI CELLS 17 /uL (0-25.1); HYALINE CASTS 1 /uL (0-3.1); PH,URINE 7.5 (5.0-8.0); URINE APPEARANCE Error; URINE BACTERIA >9,000 /uL (0-1359); URINE BILIRUBIN NEGATIVE (NEGATIVE); URINE COLOR YELLOW; URINE GLUCOSE (UA) NEGATIVE (NEGATIVE); URINE KETONE NEGATIVE (NEGATIVE); URINE LEUK ESTERASE TRACE (NEGATIVE); URINE NITRITE POSITIVE (NEGATIVE); URINE PROTEIN NEGATIVE (NEGATIVE); URINE RBC 6 /uL (0-23.9); URINE UROBILINOGEN 0.2 mg/dL (0.2-1.0); URINE WBC 77 /uL (0-25.8)
[2020-07-15 06:43] LABS: BASO % 0.6 % (0-2.0); EOS % 4.3 % (0-4.5); HEMATOCRIT 36.3 % (32.4-45.2); HEMOGLOBIN 12.4 GM/dL (10.7-15.3); LYMPH % 22.6 % (8-40); MCH 31.3 pg (25.7-33.7); MEAN CELL VOLUME 91.9 fl (80-96); MEAN PLT VOLUME 6.9 fl (7.5-11.1); MONO % 5.6 % (3.8-10.2); NEUT % 66.9 % (42.8-82.8); PLATELET COUNT 221 K/MM3 (134-434); RBC 3.95 M/mm3 (3.60-5.2); RDW 13.9 % (11.6-15.6); WHITE BLOOD COUNT 6.8 K/mm3 (4.0-10.0)
[2020-07-15 06:56] LABS: POTASSIUM 3.4 mmol/L (3.5-5.1)
[2020-07-15 06:58] LABS: CALCIUM 8.5 mg/dL (8.5-10.1)
[2020-07-15 06:59] LABS: ALBUMIN 3.4 g/dl (3.4-5.0); MAGNESIUM 1.7 mg/dL (1.8-2.4)
[2020-07-15 07:01] LABS: CREATININE 0.6 mg/dL (0.55-1.3); PHOSPHOROUS 3.9 mg/dL (2.5-4.9)
[2020-07-15 07:03] LABS: BILIRUBIN,TOTAL 0.4 mg/dL (0.2-1); TOT PROT 6.5 g/dl (6.4-8.2)
[2020-07-15] MEDS: INSULIN SLIDING SCALE (NOVOLOG) 1 VIAL SQ SCH ×2 (07:10→14:15)
[2020-07-15] MEDS ORDERED: oxyCODONE HCL 5 MG TABLET PO ONE ×2 (09:03→15:42)
[2020-07-15] MEDS ORDERED: CARVEDILOL 3.125 MG TABLET (FP) PO SCH (10:00)
[2020-07-15] MEDS ORDERED: ENOXAPARIN NA (PORCINE) 40 MG/0.4 ML DISP.SYRIN SQ SCH (10:00)
[2020-07-15] MEDS ORDERED: PRAMIPEXOLE DIHYDROCHLORIDE 0.25 MG TABLET PO SCH (10:00)
[2020-07-15] MEDS ORDERED: DULoxetine HCL 30 MG CAPSULE.DR PO SCH (10:00)
[2020-07-15] MEDS ORDERED: AZITHROMYCIN IVPB 500 MG in DEXTROSE 5%-WATER - 250 ML IVPB SCH (10:00)
[2020-07-15] MEDS ORDERED: clonazePAM 0.5 MG TABLET PO SCH (12:00)
[2020-07-15] MEDS ORDERED: CARVEDILOL 3.125 MG TABLET (FP) ONE (12:05)
[2020-07-15] MEDS ORDERED: DULoxetine HCL 30 MG CAPSULE.DR PO ONE (12:06)
[2020-07-15] MEDS ORDERED: CEFTRIAXONE 1 GM/50 ML BAG ONE (12:06)
[2020-07-15] MEDS ORDERED: AZITHROMYCIN IVPB 500 MG/250 ML BAG IVPB ONE (12:06)
[2020-07-15] MEDS ORDERED: clonazePAM 0.5 MG TABLET ONE (12:48)
[2020-07-15 13:05] LABS: INR 1.15 (0.83-1.09); PROTHROMBIN TIME (PATIENT) 13.9 SEC (9.7-13.0)
[2020-07-15] MEDS: KCL 10 MEQ IVPB 10 MEQ/100 ML INFUS.BAG IVPB SCH ×2 (14:15→15:32)
[2020-07-15] MEDS ORDERED: KCL 10 MEQ IVPB 30 MEQ/300 ML INFUS.BAG IVPB ONE (14:18)
[2020-07-15 14:35] VITALS: BP 161/69; PULSE 74; TEMP 97.5
[2020-07-15] MEDS ORDERED: oxyCODONE HCL 5 MG TABLET ONE (15:48)
[2020-07-15] MEDS ORDERED: ATORVASTATIN CA 40 MG TABLET (FP) PO SCH (22:00)
== END 2020-07-15 15:58 | disposition home or self-care (01) ==
LOC: JER 18:57 → JERBED 22:51
PROVIDERS: ADMIT Internal Medicine; ATTEND Internal Medicine
PROC: 3E033NZ Introduction of Analgesics, Hypnotics, Sedatives into Peripheral Vein, Percutaneous Approach (ICD-10-PCS; principal; 2020-07-14)
PROC: 3E03329 Introduction of Other Anti-infective into Peripheral Vein, Percutaneous Approach (ICD-10-PCS; 2020-07-14)
PROC: 3E023GC Introduction of Other Therapeutic Substance into Muscle, Percutaneous Approach (ICD-10-PCS; 2020-07-14)
PROC: 3E0337Z Introduction of Electrolytic and Water Balance Substance into Peripheral Vein, Percutaneous Approach (ICD-10-PCS; 2020-07-14)
DX: I11.0 Hypertensive heart disease with heart failure (principal); R55 Syncope and collapse; I25.10 Atherosclerotic heart disease of native coronary artery without angina pectoris; R07.89 Other chest pain; E11.9 Type 2 diabetes mellitus without complications; Z95.5 Presence of coronary angioplasty implant and graft; Z95.0 Presence of cardiac pacemaker; R09.3 Abnormal sputum; R50.9 Fever, unspecified; F41.8 Other specified anxiety disorders; R11.0 Nausea; M79.7 Fibromyalgia; G89.29 Other chronic pain; F41.9 Anxiety disorder, unspecified; R10.32 Left lower quadrant pain; R10.9 Unspecified abdominal pain; I25.2 Old myocardial infarction; Z87.891 Personal history of nicotine dependence; Z29.9 Encounter for prophylactic measures, unspecified
CPT/HCPCS: 36415; 70450-TC; 71046-TC-FY; 71250-TC; 76700-TC; 80053; 81003; 82728; 82962; 83615; 83690; 83735; 83880; 84100; 84443; 84484; 85025; 85610; 85730; 86140; 87899; 93005; 93010; 93306-TC; 93971; 96361; 96365; 96367; 96372; 96375; 96376; 99285-25; C9803; G0378; J0131; U0003

== ENCOUNTER 2020-08-05 20:45 | Emergency (ER) | payer OTHER ==
[2020-08-05 21:05] VITALS: BMI 31.1
[2020-08-05 23:09] LABS: BASO % 0.5 % (0-2.0); HEMATOCRIT 39.6 % (32.4-45.2); HEMOGLOBIN 13.4 GM/dL (10.7-15.3); LYMPH % 15.6 % (8-40); MCH 30.7 pg (25.7-33.7); MCHC 33.8 g/dl (32.0-36.0); MEAN CELL VOLUME 90.8 fl (80-96); MEAN PLT VOLUME 8.2 fl (7.5-11.1); MONO % 5.1 % (3.8-10.2); NEUT % 76.8 % (42.8-82.8); PLATELET COUNT 158 K/MM3 (134-434); RBC 4.36 M/mm3 (3.60-5.2); RDW 13.7 % (11.6-15.6); WHITE BLOOD COUNT 10.2 K/mm3 (4.0-10.0)
[2020-08-05 23:29] LABS: CHLORIDE 108 mmol/L (98-107); POTASSIUM 3.9 mmol/L (3.5-5.1); SODIUM 141 mmol/L (136-145)
[2020-08-05 23:31] LABS: CALCIUM 9.1 mg/dL (8.5-10.1)
[2020-08-05 23:32] LABS: ALBUMIN 4.3 g/dl (3.4-5.0); ANION GAP 12 MMOL/L (8-16); BLOOD UREA NITROGEN 11.2 mg/dL (7-18); CO2 21 mmol/L (21-32); GLUCOSE,RANDOM 165 mg/dL (74-106)
[2020-08-05 23:35] LABS: CREATININE 0.9 mg/dL (0.55-1.3); SGOT/AST 15 U/L (15-37); SGPT/ALT 26 U/L (13-61)
[2020-08-05 23:36] LABS: BILIRUBIN,TOTAL 0.3 mg/dL (0.2-1); TOT PROT 7.8 g/dl (6.4-8.2)
[2020-08-05 23:37] LABS: ALK PHOS 135 U/L (45-117)
[2020-08-05] MEDS ORDERED: LACTATED RINGERS SOLUTION 1000 ML INFUS.BAG IV ONE (23:54)
[2020-08-06 01:17] LABS: INR 1.06 (0.83-1.09)
[2020-08-06 01:20] LABS: ACTIVATED PTT 29.2 SECONDS (25.2-36.5)
[2020-08-06 02:10] LABS: EPI CELLS 28 /uL (0-25.1); HYALINE CASTS 10 /uL (0-3.1); PH,URINE 5.5 (5.0-8.0); URINE APPEARANCE CLOUDY; URINE BACTERIA 879 /uL (0-1359); URINE BILIRUBIN NEGATIVE (NEGATIVE); URINE COLOR YELLOW; URINE GLUCOSE (UA) NEGATIVE (NEGATIVE); URINE KETONE TRACE (NEGATIVE); URINE LEUK ESTERASE TRACE (NEGATIVE); URINE NITRITE NEGATIVE (NEGATIVE); URINE PROTEIN TRACE (NEGATIVE); URINE RBC 6 /uL (0-23.9); URINE UROBILINOGEN 0.2 mg/dL (0.2-1.0); URINE WBC 45 /uL (0-25.8)
[2020-08-06 02:26] VITALS: BP 121/77; PULSE 68
[2020-08-06 02:42] LABS: COCAINE, UR NEGATIVE ng/ml (CUTOFF=300); METHADONE, UR NEGATIVE ng/ml (CUTOFF=300); OPIATES, URI NEGATIVE ng/ml (CUTOFF=300); PHENCYCLIDINE,URINE NEGATIVE ng/ml (CUTOFF=25); URINE BARBITURATES NEGATIVE ng/ml (CUTOFF=200)
[2020-08-06 02:43] LABS: URINE AMPHETAMINES NEGATIVE ng/ml (CUTOFF=500)
[2020-08-06 02:53] VITALS: TEMP 98
[2020-08-06] MEDS ORDERED: SODIUM CHLORIDE 0.9% 500 ML INFUS.BAG IV ONE ×2 (03:02)
[2020-08-06 03:03] LABS: URINE BENZODIAZEPINES POSITIVE ng/ml (CUTOFF=200)
[2020-08-06 05:36] LABS: URINE CRYSTALS NEGATIVE /hpf
== END 2020-08-06 06:59 | disposition home or self-care (01) ==
LOC: JER 20:45
DX: F13.10 Sedative, hypnotic or anxiolytic abuse, uncomplicated (principal)
CPT/HCPCS: 36415; 70450-TC; 71045-TC-FY; 80053; 80307; 81003; 82550; 83605; 84484; 85025; 85610; 85730; 86850; 86900; 86901; 93005; 93010; 99285-25

== ENCOUNTER 2020-11-02 13:20 | Emergency (ER) | payer OTHER ==
[2020-11-02] MEDS ORDERED: ASPIRIN 325 MG TABLET PO ONE (13:54)
[2020-11-02] MEDS ORDERED: diazePAM 5 MG TABLET PO ONE (13:54)
[2020-11-02 13:59] VITALS: TEMP 98.7; BMI 22.6
[2020-11-02] MEDS ORDERED: PRAMIPEXOLE DIHYDROCHLORIDE 0.25 MG TABLET PO ONE (14:11)
[2020-11-02] MEDS ORDERED: TOPIRAMATE 25 MG TABLET PO ONE (14:11)
[2020-11-02] MEDS ORDERED: GABAPENTIN 300 MG CAPSULE PO ONE (14:12)
[2020-11-02] MEDS ORDERED: DULoxetine HCL 30 MG CAPSULE.DR PO ONE (14:12)
[2020-11-02] MEDS ORDERED: LIDOCAINE 5% TOPICAL PATCH TP ONE (14:13)
[2020-11-02] MEDS ORDERED: SODIUM CHLORIDE 0.9% 1000 ML INFUS.BAG IV ONE (14:19)
[2020-11-02] MEDS ORDERED: ASPIRIN 325 MG TABLET ONE (14:42)
[2020-11-02] MEDS ORDERED: diazePAM 5 MG TABLET ONE (14:42)
[2020-11-02 15:25] LABS: BASO % 0.2 % (0-2.0); EOS % 3.8 % (0-4.5); HEMATOCRIT 37.1 % (32.4-45.2); HEMOGLOBIN 12.2 GM/dl (10.7-15.3); MCH 29.5 pg (25.7-33.7); MCHC 32.8 g/dl (32.0-36.0); MEAN PLT VOLUME 8.2 fl (7.5-11.1); MONO % 4.8 % (3.8-10.2); NEUT % 61.2 % (42.8-82.8); PLATELET COUNT 220 K/MM3 (134-434); RBC 4.12 M/mm3 (3.60-5.2); RDW 12.7 % (11.6-15.6); WHITE BLOOD COUNT 6.2 K/mm3 (4.0-10.8)
[2020-11-02] MEDS ORDERED: LIDOCAINE 5% TOPICAL PATCH ONE (15:32)
[2020-11-02] MEDS ORDERED: KETOROLAC TROMETHAMINE 15 MG/ML VIAL IVPUSH ONE (15:32)
[2020-11-02] MEDS ORDERED: KETOROLAC TROMETHAMINE 15 MG/ML VIAL ONE ×2 (15:33→15:57)
[2020-11-02 15:38] LABS: ACTIVATED PTT 29.8 SECONDS (25.2-36.5)
[2020-11-02 15:43] LABS: INR 1.24 (0.82-1.09); PROTHROMBIN TIME (PATIENT) 13.7 SEC (10.2-13.0)
[2020-11-02 16:17] LABS: ALK PHOS 86 U/L (45-117); ANION GAP 10 MMOL/L (8-16); BILIRUBIN,TOTAL 0.4 mg/dl (0.2-1); CALCIUM 8.9 mg/dl (8.5-10); CHLORIDE 110 mmol/L (98-107); CO2 20 mmol/L (21-32); CREATININE 0.6 mg/dl (0.55-1.3); GLUCOSE,RANDOM 98 mg/dl (74-106); SGOT/AST 12 U/L (15-37); SGPT/ALT 13 U/L (13-61); SODIUM 140 mmol/L (136-145); TOT PROT 6.5 g/dl (6.4-8.2)
[2020-11-02] MEDS ORDERED: METOCLOPRAMIDE HCL INJECTION 10 MG/2 ML VIAL IVPUSH ONE (16:23)
[2020-11-02] MEDS ORDERED: METOCLOPRAMIDE HCL INJECTION 10 MG/2 ML VIAL ONE (16:28)
[2020-11-02 17:38] VITALS: BP 129/75; PULSE 56
[2020-11-02] MEDS ORDERED: LIDOCAINE PATCH REMOVAL MC SCH (22:00)
== END 2020-11-02 18:49 | disposition home or self-care (01) ==
LOC: FER 13:20
PROC: 3E0333Z Introduction of Anti-inflammatory into Peripheral Vein, Percutaneous Approach (ICD-10-PCS; principal; 2020-11-02)
PROC: 3E033GC Introduction of Other Therapeutic Substance into Peripheral Vein, Percutaneous Approach (ICD-10-PCS; 2020-11-02)
DX: R07.9 Chest pain, unspecified (principal); M79.602 Pain in left arm
CPT/HCPCS: 36415; 71045-TC-FY; 72125-TC; 80053; 84484; 85025; 85610; 85730; 93005; 99285-25; C9803; U0003; U0005

== ENCOUNTER 2020-12-15 08:42 | Inpatient (IN) | payer OTHER ==
[2020-12-15] MEDS ORDERED: SODIUM CHLORIDE 0.9% 500 ML INFUS.BAG IV ONE (09:18)
[2020-12-15] MEDS ORDERED: ACETAMINOPHEN 1000 MG/100 ML VIAL (NON FORMULARY) IVPB ONE (09:18)
[2020-12-15] MEDS ORDERED: ACETAMINOPHEN INJECTION 100 ML IVPB ONE (09:26)
[2020-12-15 09:30] LABS: BASO % 0.1 % (0-2.0); EOS % 0.2 % (0-4.5); HEMATOCRIT 40.3 % (32.4-45.2); HEMOGLOBIN 13.7 GM/dL (10.7-15.3); LYMPH % 5.2 % (8-40); MEAN CELL VOLUME 88.3 fl (80-96); MEAN PLT VOLUME 7.3 fl (7.5-11.1); MONO % 1.9 % (3.8-10.2); NEUT % 92.6 % (42.8-82.8); PLATELET COUNT 186 K/MM3 (134-434); RBC 4.57 M/mm3 (3.60-5.2); WHITE BLOOD COUNT 8.7 K/mm3 (4.0-10.0)
[2020-12-15] MEDS ORDERED: PIPERACILLIN/TAZOB 3.375 GM 3.375 GM in DEXTROSE 5%-WATER - 50 ML IVPB ONE (09:44)
[2020-12-15] MEDS ORDERED: VANCOMYCIN 1 GM in D5W (PRE-DOCKED) 1,000 MG/250 ML IVPB ONE (09:44)
[2020-12-15 09:51] LABS: CHLORIDE 103 mmol/L (98-107); SODIUM 137 mmol/L (136-145)
[2020-12-15 09:54] LABS: ALBUMIN 4.1 g/dl (3.4-5.0); ANION GAP 10 MMOL/L (8-16); BLOOD UREA NITROGEN 18.4 mg/dL (7-18); CALCIUM 9.1 mg/dL (8.5-10.1); CO2 24 mmol/L (21-32); GLUCOSE,RANDOM 211 mg/dL (74-106)
[2020-12-15 09:56] LABS: CREATININE 0.9 mg/dL (0.55-1.3); SGOT/AST 16 U/L (15-37); SGPT/ALT 20 U/L (13-61)
[2020-12-15 09:58] LABS: BILIRUBIN,TOTAL 0.7 mg/dL (0.2-1); TOT PROT 7.6 g/dl (6.4-8.2)
[2020-12-15 09:59] LABS: ALK PHOS 126 U/L (45-117)
[2020-12-15 10:24] LABS: INR 1.16 (0.83-1.09); PROTHROMBIN TIME (PATIENT) 14.2 SEC (9.7-13.0)
[2020-12-15] MEDS ORDERED: VANCOMYCIN 1 GRAM (PRE-DOCKED) 1,000 MG/250 ML BAG IVPB ONE (10:30)
[2020-12-15] MEDS ORDERED: PIPERACILLIN/TAZOB 3.375 GM 3.375 GM/50 ML BAG IVPB ONE (10:30)
[2020-12-15 11:03] LABS: LACTIC ACID 2.9 mmol/L (0.4-2.0)
[2020-12-15 11:44] LABS: ANISOCYTOSIS 0; MACROCYTOSIS 0; PLATELET ESTIMATE NORMAL
[2020-12-15 13:15] LABS: EPI CELLS 15 /uL (0-25.1); HYALINE CASTS 0 /uL (0-3.1); PH,URINE 5.5 (5.0-8.0); URINE APPEARANCE CLEAR; URINE BILIRUBIN NEGATIVE (NEGATIVE); URINE COLOR YELLOW; URINE GLUCOSE (UA) NEGATIVE (NEGATIVE); URINE KETONE NEGATIVE (NEGATIVE); URINE LEUK ESTERASE NEGATIVE (NEGATIVE); URINE NITRITE POSITIVE (NEGATIVE); URINE PROTEIN NEGATIVE (NEGATIVE); URINE RBC 22 /uL (0-23.9); URINE UROBILINOGEN 0.2 mg/dL (0.2-1.0); URINE WBC 26 /uL (0-25.8)
[2020-12-15 14:09] LABS: VENOUS BASE EXCESS -4.9 mmol/L (-2-2); VENOUS O2 SATURATION 62.3 % (70-80); VENOUS PCO2 49.8 mmHg (38-52); VENOUS PH 7.265 (7.310-7.410)
[2020-12-15 14:21] LABS: LDH 187 U/L (84-246)
[2020-12-15 14:41] LABS: URINE BACTERIA 586 /uL (0-1359)
[2020-12-15] MEDS: ACETAMINOPHEN 325 MG TABLET (FP) PO PRN ×2 (16:05→21:18)
[2020-12-15] MEDS: INSULIN SLIDING SCALE (NOVOLOG) 1 VIAL SQ SCH ×2 (16:13→23:31)
[2020-12-15 18:29] VITALS: BMI 27.1
[2020-12-15] MEDS ORDERED: SODIUM CHLORIDE 1,000 ML IV SCH (20:00)
[2020-12-15] MEDS ORDERED: PT OWN MED DRAWER 7, Y5N ONE ×3 (21:09→23:39)
[2020-12-15] MEDS: CARVEDILOL 3.125 MG TABLET (FP) PO SCH (21:19)
[2020-12-15] MEDS: ATORVASTATIN CA 40 MG TABLET (FP) PO SCH (21:19)
[2020-12-15] MEDS: oxyCODONE HCL 5 MG TABLET PO PRN (23:27)
[2020-12-15] MEDS: TOPIRAMATE 25 MG TABLET PO SCH (23:34)
[2020-12-16] MEDS: oxyCODONE HCL 5 MG TABLET PO PRN ×3 (05:31→21:24)
[2020-12-16] MEDS: INSULIN SLIDING SCALE (NOVOLOG) 1 VIAL SQ SCH ×4 (06:01→21:43)
[2020-12-16 07:37] LABS: HEMOGLOBIN 11.6 GM/dL (10.7-15.3); MCH 29.9 pg (25.7-33.7); MCHC 34.3 g/dl (32.0-36.0); MEAN CELL VOLUME 87.3 fl (80-96); MEAN PLT VOLUME 7.9 fl (7.5-11.1); PLATELET COUNT 167 K/MM3 (134-434); RBC 3.89 M/mm3 (3.60-5.2); RDW 13.4 % (11.6-15.6)
[2020-12-16 07:59] LABS: BLOOD UREA NITROGEN 10.3 mg/dL (7-18); CALCIUM 8.5 mg/dL (8.5-10.1); MAGNESIUM 1.5 mg/dL (1.8-2.4)
[2020-12-16 08:03] LABS: CREATININE 0.5 mg/dL (0.55-1.3); PHOSPHOROUS 1.9 mg/dL (2.5-4.9)
[2020-12-16 08:04] LABS: BILIRUBIN,TOTAL 1.1 mg/dL (0.2-1); TOT PROT 6.4 g/dl (6.4-8.2)
[2020-12-16 08:15] LABS: ALBUMIN 3.3 g/dl (3.4-5.0)
[2020-12-16] MEDS ORDERED: DEXTROSE 5%-WATER - 50 ML IVPB ONE (09:12)
[2020-12-16] MEDS ORDERED: cefTRIAXone SODIUM 1 GM VIAL ONE (09:12)
[2020-12-16] MEDS: ACETAMINOPHEN 325 MG TABLET (FP) PO PRN ×2 (09:14→14:45)
[2020-12-16] MEDS: CARVEDILOL 3.125 MG TABLET (FP) PO SCH ×2 (09:15→21:23)
[2020-12-16] MEDS: TOPIRAMATE 25 MG TABLET PO SCH ×2 (09:16→21:29)
[2020-12-16] MEDS: ENOXAPARIN NA (PORCINE) 40 MG/0.4 ML DISP.SYRIN SQ SCH (09:16)
[2020-12-16] MEDS: CEFTRIAXONE 1 GM in DEXTROSE 5%-WATER - 50 ML IVPB SCH (09:16)
[2020-12-16] MEDS: AZITHROMYCIN IVPB 250 MG in DEXTROSE 5%-WATER - 250 ML IVPB SCH (10:04)
[2020-12-16] MEDS ORDERED: ALBUTEROL SO4 2.5/IPRATROPIUM 0.5 INH SOL 3 ML VIAL.NEB. NEB PRN (10:08)
[2020-12-16] MEDS: PRAMIPEXOLE DIHYDROCHLORIDE 0.25 MG TABLET PO SCH ×2 (16:38→21:23)
[2020-12-16] MEDS: busPIRone HCL 10 MG TABLET (FP) PO SCH ×2 (17:21→21:23)
[2020-12-16] MEDS: ATORVASTATIN CA 40 MG TABLET (FP) PO SCH (21:23)
[2020-12-16] MEDS: ZOLPIDEM TARTRATE 5 MG TABLET PO PRN (21:25)
[2020-12-16] MEDS: clonazePAM 0.5 MG TABLET PO PRN (21:25)
[2020-12-16] MEDS ORDERED: PT OWN MED DRAWER 7, Y5N ONE (21:27)
[2020-12-16] MEDS ORDERED: PATIENT'S OWN MEDICATION (NON-FORMULARY) (Clonazepam [Klonopin] 1 MG Tablet) PO SCH (22:00)
[2020-12-17] MEDS: oxyCODONE HCL 5 MG TABLET PO PRN ×3 (03:04→18:06)
[2020-12-17] MEDS: ACETAMINOPHEN 325 MG TABLET (FP) PO PRN ×3 (03:05→12:28)
[2020-12-17] MEDS ORDERED: PT OWN MED DRAWER 7, Y5N ONE ×2 (05:50→21:30)
[2020-12-17] MEDS: INSULIN SLIDING SCALE (NOVOLOG) 1 VIAL SQ SCH ×4 (06:01→22:09)
[2020-12-17] MEDS ORDERED: busPIRone HCL 10 MG TABLET (FP) ONE ×3 (06:12→21:29)
[2020-12-17] MEDS ORDERED: busPIRone HCL 5 MG TABLET ONE ×3 (06:12→21:29)
[2020-12-17] MEDS: BUSPIRONE HCL 10 MG, BUSPIRONE HCL 5 MG PO SCH ×3 (06:16→21:58)
[2020-12-17 07:34] LABS: EOS % 0.3 % (0-4.5); HEMATOCRIT 35.3 % (32.4-45.2); HEMOGLOBIN 12.4 GM/dL (10.7-15.3); LYMPH % 6.4 % (8-40); MCH 30.1 pg (25.7-33.7); MEAN CELL VOLUME 86.1 fl (80-96); MEAN PLT VOLUME 7.5 fl (7.5-11.1); MONO % 4.5 % (3.8-10.2); NEUT % 88.8 % (42.8-82.8); PLATELET COUNT 200 K/MM3 (134-434); RBC 4.11 M/mm3 (3.60-5.2); RDW 12.9 % (11.6-15.6); WHITE BLOOD COUNT 14.4 K/mm3 (4.0-10.0)
[2020-12-17] MEDS ORDERED: cefTRIAXone SODIUM 1 GM VIAL ONE (08:13)
[2020-12-17] MEDS ORDERED: DEXTROSE 5%-WATER - 50 ML IVPB ONE (08:13)
[2020-12-17] MEDS ORDERED: POTASSIUM CHLORIDE TABS 20 MEQ TABLET.ER (FP) PO ONE (08:15)
[2020-12-17 08:31] LABS: CALCIUM 9.3 mg/dL (8.5-10.1)
[2020-12-17 08:32] LABS: ALBUMIN 3.4 g/dl (3.4-5.0); BLOOD UREA NITROGEN 10.3 mg/dL (7-18); CREATININE 0.7 mg/dL (0.55-1.3); MAGNESIUM 1.7 mg/dL (1.8-2.4)
[2020-12-17 08:36] LABS: TOT PROT 7.3 g/dl (6.4-8.2)
[2020-12-17] MEDS: ENOXAPARIN NA (PORCINE) 40 MG/0.4 ML DISP.SYRIN SQ SCH (09:24)
[2020-12-17] MEDS: CEFTRIAXONE 1 GM in DEXTROSE 5%-WATER - 50 ML IVPB SCH (09:24)
[2020-12-17] MEDS: TOPIRAMATE 25 MG TABLET PO SCH ×2 (09:25→21:57)
[2020-12-17] MEDS: PRAMIPEXOLE DIHYDROCHLORIDE 0.25 MG TABLET PO SCH ×2 (09:25→21:57)
[2020-12-17] MEDS: CARVEDILOL 3.125 MG TABLET (FP) PO SCH ×2 (09:56→21:58)
[2020-12-17] MEDS: clonazePAM 0.5 MG TABLET PO PRN ×2 (10:10→22:10)
[2020-12-17] MEDS ORDERED: POTASSIUM CHLORIDE ORAL LIQUID 20 MEQ/15 ML PO ONE (10:30)
[2020-12-17] MEDS: AZITHROMYCIN IVPB 250 MG in DEXTROSE 5%-WATER - 250 ML IVPB SCH ×2 (10:37→11:07)
[2020-12-17] MEDS ORDERED: AZITHROMYCIN 250 MG TABLET PO ONE (11:30)
[2020-12-17] MEDS: LIDOCAINE 5% TOPICAL PATCH TP SCH (12:20)
[2020-12-17] MEDS ORDERED: ALBUTEROL SO4 0.083% IH SOL 2.5 MG/3 ML VIAL.NEB. NEB PRN (12:22)
[2020-12-17] MEDS: ALBUTEROL SO4 2.5/IPRATROPIUM 0.5 INH SOL 3 ML VIAL.NEB. NEB SCH ×2 (15:28→19:30)
[2020-12-17] MEDS ORDERED: INSULIN (NOVOLOG) ASPART 100 UNITS/ML 10ML VIAL ONE (21:33)
[2020-12-17] MEDS: ATORVASTATIN CA 40 MG TABLET (FP) PO SCH (21:57)
[2020-12-17] MEDS: LIDOCAINE PATCH REMOVAL MC SCH (21:58)
[2020-12-18] MEDS ORDERED: busPIRone HCL 10 MG TABLET (FP) ONE ×2 (05:47→21:27)
[2020-12-18] MEDS ORDERED: busPIRone HCL 5 MG TABLET ONE ×2 (05:47→21:27)
[2020-12-18] MEDS: ACETAMINOPHEN 325 MG TABLET (FP) PO PRN ×3 (05:51→16:58)
[2020-12-18] MEDS: BUSPIRONE HCL 10 MG, BUSPIRONE HCL 5 MG PO SCH ×3 (05:51→21:40)
[2020-12-18] MEDS: INSULIN SLIDING SCALE (NOVOLOG) 1 VIAL SQ SCH ×4 (06:00→21:41)
[2020-12-18] MEDS: oxyCODONE HCL 5 MG TABLET PO PRN (07:15)
[2020-12-18] MEDS: ALBUTEROL SO4 2.5/IPRATROPIUM 0.5 INH SOL 3 ML VIAL.NEB. NEB SCH ×3 (07:42→20:35)
[2020-12-18] MEDS: busPIRone HCL 10 MG TABLET (FP) PO SCH (07:50)
[2020-12-18 10:13] LABS: BASO % 0.1 % (0-2.0); EOS % 2.1 % (0-4.5); HEMATOCRIT 33.9 % (32.4-45.2); HEMOGLOBIN 11.9 GM/dL (10.7-15.3); LYMPH % 6.8 % (8-40); MCH 29.9 pg (25.7-33.7); MCHC 35.1 g/dl (32.0-36.0); MEAN CELL VOLUME 85.2 fl (80-96); MEAN PLT VOLUME 7.2 fl (7.5-11.1); MONO % 6.2 % (3.8-10.2); NEUT % 84.8 % (42.8-82.8); PLATELET COUNT 195 K/MM3 (134-434); RBC 3.97 M/mm3 (3.60-5.2); WHITE BLOOD COUNT 10.3 K/mm3 (4.0-10.0)
[2020-12-18 10:30] LABS: ALBUMIN 3.2 g/dl (3.4-5.0); CALCIUM 9.2 mg/dL (8.5-10.1)
[2020-12-18 10:31] LABS: MAGNESIUM 1.7 mg/dL (1.8-2.4)
[2020-12-18 10:33] LABS: CREATININE 0.6 mg/dL (0.55-1.3)
[2020-12-18 10:34] LABS: BILIRUBIN,TOTAL 0.9 mg/dL (0.2-1)
[2020-12-18] MEDS ORDERED: cefTRIAXone SODIUM 1 GM VIAL ONE (10:38)
[2020-12-18] MEDS ORDERED: PT OWN MED DRAWER 7, Y5N ONE (10:38)
[2020-12-18] MEDS ORDERED: DEXTROSE 5%-WATER - 50 ML IVPB ONE (10:39)
[2020-12-18] MEDS: LIDOCAINE 5% TOPICAL PATCH TP SCH (10:44)
[2020-12-18] MEDS: CARVEDILOL 3.125 MG TABLET (FP) PO SCH ×2 (10:47→21:40)
[2020-12-18] MEDS: CEFTRIAXONE 1 GM in DEXTROSE 5%-WATER - 50 ML IVPB SCH (10:48)
[2020-12-18] MEDS: PRAMIPEXOLE DIHYDROCHLORIDE 0.25 MG TABLET PO SCH ×2 (10:48→21:40)
[2020-12-18] MEDS: ENOXAPARIN NA (PORCINE) 40 MG/0.4 ML DISP.SYRIN SQ SCH (10:48)
[2020-12-18] MEDS: AZITHROMYCIN IVPB 250 MG in DEXTROSE 5%-WATER - 250 ML IVPB SCH (10:50)
[2020-12-18] MEDS: TOPIRAMATE 25 MG TABLET PO SCH ×2 (10:52→21:37)
[2020-12-18] MEDS: methylPREDNISolone NA SUCC 40 MG/1 ML VIAL IVPUSH SCH ×2 (12:43→23:16)
[2020-12-18] MEDS: clonazePAM 0.5 MG TABLET PO PRN (16:46)
[2020-12-18] MEDS ORDERED: oxyCODONE HCL 5 MG TABLET PO PRN (17:07)
[2020-12-18] MEDS: AMINO ACIDS/PROTEIN HYDROLYS 30 ML LIQUID.PKT PO SCH (18:10)
[2020-12-18] MEDS: ATORVASTATIN CA 40 MG TABLET (FP) PO SCH (21:37)
[2020-12-18] MEDS: ZOLPIDEM TARTRATE 5 MG TABLET PO PRN (21:37)
[2020-12-18] MEDS: LIDOCAINE PATCH REMOVAL MC SCH (21:45)
[2020-12-19] MEDS: ACETAMINOPHEN 325 MG TABLET (FP) PO PRN ×2 (00:03→09:15)
[2020-12-19] MEDS: clonazePAM 0.5 MG TABLET PO PRN ×2 (04:28→12:55)
[2020-12-19] MEDS ORDERED: busPIRone HCL 10 MG TABLET (FP) ONE ×3 (05:22→20:28)
[2020-12-19] MEDS ORDERED: busPIRone HCL 5 MG TABLET ONE ×3 (05:23→20:28)
[2020-12-19] MEDS: BUSPIRONE HCL 10 MG, BUSPIRONE HCL 5 MG PO SCH ×3 (06:06→21:25)
[2020-12-19] MEDS: INSULIN SLIDING SCALE (NOVOLOG) 1 VIAL SQ SCH ×4 (06:06→21:26)
[2020-12-19] MEDS: ALBUTEROL SO4 2.5/IPRATROPIUM 0.5 INH SOL 3 ML VIAL.NEB. NEB SCH ×5 (06:28→20:05)
[2020-12-19 07:26] LABS: BASO % 0.3 % (0-2.0); HEMOGLOBIN 12.1 GM/dL (10.7-15.3); LYMPH % 9.3 % (8-40); MCH 30.4 pg (25.7-33.7); MCHC 35.6 g/dl (32.0-36.0); MEAN CELL VOLUME 85.3 fl (80-96); MEAN PLT VOLUME 7.3 fl (7.5-11.1); MONO % 7.6 % (3.8-10.2); NEUT % 82.8 % (42.8-82.8); PLATELET COUNT 240 K/MM3 (134-434); RBC 3.99 M/mm3 (3.60-5.2); RDW 12.7 % (11.6-15.6); WHITE BLOOD COUNT 7.7 K/mm3 (4.0-10.0)
[2020-12-19 07:53] LABS: BLOOD UREA NITROGEN 23.4 mg/dL (7-18)
[2020-12-19 07:54] LABS: CALCIUM 9.1 mg/dL (8.5-10.1)
[2020-12-19 07:55] LABS: ALBUMIN 3.1 g/dl (3.4-5.0)
[2020-12-19 07:56] LABS: CREATININE 0.6 mg/dL (0.55-1.3)
[2020-12-19 07:58] LABS: BILIRUBIN,TOTAL 0.4 mg/dL (0.2-1); TOT PROT 7.2 g/dl (6.4-8.2)
[2020-12-19] MEDS ORDERED: DEXTROSE 5%-WATER - 50 ML IVPB ONE (09:02)
[2020-12-19] MEDS ORDERED: cefTRIAXone SODIUM 1 GM VIAL ONE (09:02)
[2020-12-19] MEDS: AMINO ACIDS/PROTEIN HYDROLYS 30 ML LIQUID.PKT PO SCH ×2 (09:14→17:14)
[2020-12-19] MEDS: PRAMIPEXOLE DIHYDROCHLORIDE 0.25 MG TABLET PO SCH ×2 (09:16→21:26)
[2020-12-19] MEDS: CARVEDILOL 3.125 MG TABLET (FP) PO SCH ×2 (09:16→21:26)
[2020-12-19] MEDS: ENOXAPARIN NA (PORCINE) 40 MG/0.4 ML DISP.SYRIN SQ SCH (09:16)
[2020-12-19] MEDS: oxyCODONE HCL 5 MG TABLET PO PRN ×2 (09:16→20:43)
[2020-12-19] MEDS: CEFTRIAXONE 1 GM in DEXTROSE 5%-WATER - 50 ML IVPB SCH (09:16)
[2020-12-19] MEDS: LIDOCAINE 5% TOPICAL PATCH TP SCH (09:17)
[2020-12-19] MEDS: MULTIVIT-MINERALS ORAL LIQUID PO SCH (09:18)
[2020-12-19] MEDS: TOPIRAMATE 25 MG TABLET PO SCH ×2 (09:18→21:25)
[2020-12-19 09:51] LABS: ANISOCYTOSIS 0; MACROCYTOSIS 0; PLATELET ESTIMATE NORMAL
[2020-12-19] MEDS: AZITHROMYCIN IVPB 250 MG in DEXTROSE 5%-WATER - 250 ML IVPB SCH (10:45)
[2020-12-19] MEDS: VANCOMYCIN/WATER BAGS 1,250 MG/250 ML BAG IVPB SCH (11:39)
[2020-12-19] MEDS: methylPREDNISolone NA SUCC 40 MG/1 ML VIAL IVPUSH SCH ×2 (11:42→22:20)
[2020-12-19] MEDS ORDERED: INSULIN (NOVOLOG) ASPART 100 UNITS/ML 10ML VIAL ONE (20:29)
[2020-12-19] MEDS: ATORVASTATIN CA 40 MG TABLET (FP) PO SCH (21:26)
[2020-12-19] MEDS: LIDOCAINE PATCH REMOVAL MC SCH (21:26)
[2020-12-20] MEDS: clonazePAM 0.5 MG TABLET PO PRN ×3 (00:53→16:50)
[2020-12-20] MEDS: ZOLPIDEM TARTRATE 5 MG TABLET PO PRN ×2 (00:54→23:39)
[2020-12-20] MEDS: oxyCODONE HCL 5 MG TABLET PO PRN ×4 (02:35→23:39)
[2020-12-20] MEDS ORDERED: busPIRone HCL 5 MG TABLET ONE ×3 (05:28→20:31)
[2020-12-20] MEDS ORDERED: busPIRone HCL 10 MG TABLET (FP) ONE ×3 (05:28→20:31)
[2020-12-20] MEDS: BUSPIRONE HCL 10 MG, BUSPIRONE HCL 5 MG PO SCH ×3 (05:34→21:01)
[2020-12-20] MEDS: INSULIN SLIDING SCALE (NOVOLOG) 1 VIAL SQ SCH ×4 (06:54→21:17)
[2020-12-20] MEDS: ALBUTEROL SO4 2.5/IPRATROPIUM 0.5 INH SOL 3 ML VIAL.NEB. NEB SCH ×5 (07:25→21:00)
[2020-12-20 08:57] LABS: BASO % 1.7 % (0-2.0); HEMATOCRIT 43.7 % (32.4-45.2); HEMOGLOBIN 14.6 GM/dL (10.7-15.3); LYMPH % 7.2 % (8-40); MCHC 33.4 g/dl (32.0-36.0); MEAN CELL VOLUME 86.7 fl (80-96); MEAN PLT VOLUME 8.5 fl (7.5-11.1); MONO % 4.1 % (3.8-10.2); PLATELET COUNT 263 K/MM3 (134-434); RBC 5.04 M/mm3 (3.60-5.2); RDW 13.2 % (11.6-15.6); WHITE BLOOD COUNT 10.7 K/mm3 (4.0-10.0)
[2020-12-20] MEDS: LIDOCAINE 5% TOPICAL PATCH TP SCH (09:53)
[2020-12-20] MEDS: ENOXAPARIN NA (PORCINE) 40 MG/0.4 ML DISP.SYRIN SQ SCH (09:53)
[2020-12-20] MEDS: CARVEDILOL 3.125 MG TABLET (FP) PO SCH ×2 (09:54→21:02)
[2020-12-20] MEDS: AMINO ACIDS/PROTEIN HYDROLYS 30 ML LIQUID.PKT PO SCH ×2 (09:54→16:48)
[2020-12-20] MEDS: PRAMIPEXOLE DIHYDROCHLORIDE 0.25 MG TABLET PO SCH ×2 (09:54→21:01)
[2020-12-20] MEDS: MULTIVIT-MINERALS ORAL LIQUID PO SCH (09:56)
[2020-12-20] MEDS ORDERED: PT OWN MED DRAWER 7, Y5N ONE ×2 (09:56→12:13)
[2020-12-20] MEDS: TOPIRAMATE 25 MG TABLET PO SCH ×2 (09:57→21:02)
[2020-12-20 10:07] LABS: CALCIUM 9.4 mg/dL (8.5-10.1)
[2020-12-20 10:08] LABS: ALBUMIN 3.4 g/dl (3.4-5.0); BLOOD UREA NITROGEN 29.8 mg/dL (7-18)
[2020-12-20 10:10] LABS: MAGNESIUM 2.2 mg/dL (1.8-2.4)
[2020-12-20 10:11] LABS: CREATININE 0.6 mg/dL (0.55-1.3)
[2020-12-20 10:15] LABS: BILIRUBIN,TOTAL 0.5 mg/dL (0.2-1); TOT PROT 7.3 g/dl (6.4-8.2)
[2020-12-20 11:22] LABS: ANISOCYTOSIS 0; MACROCYTOSIS 0; PLATELET ESTIMATE NORMAL
[2020-12-20] MEDS: VANCOMYCIN/WATER BAGS 1,250 MG/250 ML BAG IVPB SCH (12:15)
[2020-12-20] MEDS: ATORVASTATIN CA 40 MG TABLET (FP) PO SCH (21:01)
[2020-12-20] MEDS: INSULIN (LEVEMIR) 100 UNITS/ML UNITS SQ SCH (21:08)
[2020-12-20] MEDS: LIDOCAINE PATCH REMOVAL MC SCH (21:12)
[2020-12-21] MEDS ORDERED: busPIRone HCL 10 MG TABLET (FP) ONE ×3 (05:21→21:58)
[2020-12-21] MEDS ORDERED: busPIRone HCL 5 MG TABLET ONE ×3 (05:21→21:58)
[2020-12-21] MEDS: oxyCODONE HCL 5 MG TABLET PO PRN ×3 (05:47→22:05)
[2020-12-21] MEDS: BUSPIRONE HCL 10 MG, BUSPIRONE HCL 5 MG PO SCH ×3 (05:49→22:06)
[2020-12-21] MEDS: INSULIN SLIDING SCALE (NOVOLOG) 1 VIAL SQ SCH ×4 (06:12→22:07)
[2020-12-21] MEDS: ALBUTEROL SO4 2.5/IPRATROPIUM 0.5 INH SOL 3 ML VIAL.NEB. NEB SCH ×4 (07:15→19:20)
[2020-12-21 10:16] LABS: BASO % 0.4 % (0-2.0); EOS % 2.1 % (0-4.5); HEMATOCRIT 39.6 % (32.4-45.2); HEMOGLOBIN 13.3 GM/dL (10.7-15.3); LYMPH % 14.3 % (8-40); MCH 29.2 pg (25.7-33.7); MCHC 33.7 g/dl (32.0-36.0); MEAN CELL VOLUME 86.9 fl (80-96); MEAN PLT VOLUME 7.1 fl (7.5-11.1); MONO % 7.8 % (3.8-10.2); NEUT % 75.4 % (42.8-82.8); PLATELET COUNT 370 K/MM3 (134-434); RBC 4.56 M/mm3 (3.60-5.2); WHITE BLOOD COUNT 9.8 K/mm3 (4.0-10.0)
[2020-12-21 10:39] LABS: CALCIUM 9.5 mg/dL (8.5-10.1)
[2020-12-21 10:40] LABS: ALBUMIN 3.6 g/dl (3.4-5.0); MAGNESIUM 2.1 mg/dL (1.8-2.4)
[2020-12-21] MEDS: PRAMIPEXOLE DIHYDROCHLORIDE 0.25 MG TABLET PO SCH ×2 (10:40→22:05)
[2020-12-21] MEDS: ENOXAPARIN NA (PORCINE) 40 MG/0.4 ML DISP.SYRIN SQ SCH (10:40)
[2020-12-21] MEDS: LIDOCAINE 5% TOPICAL PATCH TP SCH (10:40)
[2020-12-21] MEDS: CARVEDILOL 3.125 MG TABLET (FP) PO SCH ×2 (10:40→22:06)
[2020-12-21] MEDS: MULTIVIT-MINERALS ORAL LIQUID PO SCH (10:41)
[2020-12-21] MEDS: TOPIRAMATE 25 MG TABLET PO SCH ×2 (10:41→22:05)
[2020-12-21] MEDS: AMINO ACIDS/PROTEIN HYDROLYS 30 ML LIQUID.PKT PO SCH ×2 (10:41→17:43)
[2020-12-21 10:43] LABS: CREATININE 0.7 mg/dL (0.55-1.3)
[2020-12-21 10:44] LABS: BILIRUBIN,TOTAL 0.7 mg/dL (0.2-1)
[2020-12-21 10:45] LABS: TOT PROT 7.6 g/dl (6.4-8.2)
[2020-12-21] MEDS ORDERED: PT OWN MED DRAWER 7, Y5N ONE ×2 (11:19→21:58)
[2020-12-21] MEDS: VANCOMYCIN/WATER BAGS 1,250 MG/250 ML BAG IVPB SCH ×2 (11:23→14:34)
[2020-12-21] MEDS: clonazePAM 0.5 MG TABLET PO PRN ×2 (11:23→22:06)
[2020-12-21 12:13] LABS: ANISOCYTOSIS 1+; PLATELET ESTIMATE NORMAL
[2020-12-21] MEDS: ATORVASTATIN CA 40 MG TABLET (FP) PO SCH (22:06)
[2020-12-21] MEDS: INSULIN (LEVEMIR) 100 UNITS/ML UNITS SQ SCH (22:07)
[2020-12-21] MEDS: ACETAMINOPHEN 325 MG TABLET (FP) PO PRN (22:07)
[2020-12-21] MEDS: LIDOCAINE PATCH REMOVAL MC SCH (22:15)
[2020-12-21] MEDS: ZOLPIDEM TARTRATE 5 MG TABLET PO PRN (23:41)
[2020-12-22] MEDS ORDERED: busPIRone HCL 10 MG TABLET (FP) ONE ×3 (06:10→20:59)
[2020-12-22] MEDS ORDERED: busPIRone HCL 5 MG TABLET ONE ×3 (06:10→20:59)
[2020-12-22] MEDS: INSULIN SLIDING SCALE (NOVOLOG) 1 VIAL SQ SCH ×4 (06:16→21:14)
[2020-12-22] MEDS: clonazePAM 0.5 MG TABLET PO PRN (06:19)
[2020-12-22] MEDS: oxyCODONE HCL 5 MG TABLET PO PRN ×3 (06:22→21:12)
[2020-12-22] MEDS: BUSPIRONE HCL 10 MG, BUSPIRONE HCL 5 MG PO SCH ×3 (06:22→21:06)
[2020-12-22] MEDS: ACETAMINOPHEN 325 MG TABLET (FP) PO PRN ×3 (06:23→21:14)
[2020-12-22] MEDS ORDERED: INSULIN (NOVOLOG) ASPART 100 UNITS/ML 10ML VIAL ONE ×2 (08:41→21:11)
[2020-12-22] MEDS: ALBUTEROL SO4 2.5/IPRATROPIUM 0.5 INH SOL 3 ML VIAL.NEB. NEB SCH ×4 (08:55→19:56)
[2020-12-22] MEDS: ENOXAPARIN NA (PORCINE) 40 MG/0.4 ML DISP.SYRIN SQ SCH (09:55)
[2020-12-22] MEDS: AMINO ACIDS/PROTEIN HYDROLYS 30 ML LIQUID.PKT PO SCH ×2 (09:55→16:29)
[2020-12-22] MEDS: PRAMIPEXOLE DIHYDROCHLORIDE 0.25 MG TABLET PO SCH ×2 (09:56→21:08)
[2020-12-22] MEDS: MULTIVIT-MINERALS ORAL LIQUID PO SCH (09:56)
[2020-12-22] MEDS: TOPIRAMATE 25 MG TABLET PO SCH ×2 (09:56→21:57)
[2020-12-22] MEDS: CARVEDILOL 3.125 MG TABLET (FP) PO SCH ×2 (09:56→21:06)
[2020-12-22] MEDS: LIDOCAINE 5% TOPICAL PATCH TP SCH (09:57)
[2020-12-22] MEDS: VANCOMYCIN/WATER BAGS 1,250 MG/250 ML BAG IVPB SCH (10:06)
[2020-12-22 11:35] LABS: BASO % 0.7 % (0-2.0); EOS % 4.3 % (0-4.5); HEMATOCRIT 37.2 % (32.4-45.2); HEMOGLOBIN 12.5 GM/dL (10.7-15.3); LYMPH % 18.5 % (8-40); MCH 28.9 pg (25.7-33.7); MCHC 33.5 g/dl (32.0-36.0); MEAN CELL VOLUME 86.1 fl (80-96); MEAN PLT VOLUME 7.2 fl (7.5-11.1); MONO % 6.9 % (3.8-10.2); NEUT % 69.6 % (42.8-82.8); PLATELET COUNT 339 K/MM3 (134-434); RBC 4.33 M/mm3 (3.60-5.2); RDW 12.8 % (11.6-15.6); WHITE BLOOD COUNT 7.2 K/mm3 (4.0-10.0)
[2020-12-22 12:05] LABS: ALBUMIN 3.3 g/dl (3.4-5.0); CALCIUM 9.4 mg/dL (8.5-10.1)
[2020-12-22 12:06] LABS: BLOOD UREA NITROGEN 19.8 mg/dL (7-18); MAGNESIUM 2.2 mg/dL (1.8-2.4)
[2020-12-22 12:09] LABS: CREATININE 0.5 mg/dL (0.55-1.3)
[2020-12-22 12:10] LABS: BILIRUBIN,TOTAL 0.5 mg/dL (0.2-1)
[2020-12-22] MEDS ORDERED: clonazePAM 0.5 MG TABLET PO PRN (12:12)
[2020-12-22 12:32] LABS: ANISOCYTOSIS 0; MACROCYTOSIS 0; PLATELET ESTIMATE NORMAL
[2020-12-22 13:00] LABS: HIV INTERPRETATION NEGATIVE (NEGATIVE)
[2020-12-22] MEDS: ATORVASTATIN CA 40 MG TABLET (FP) PO SCH (21:06)
[2020-12-22] MEDS: LIDOCAINE PATCH REMOVAL MC SCH (21:06)
[2020-12-22] MEDS: INSULIN (LEVEMIR) 100 UNITS/ML UNITS SQ SCH (22:25)
[2020-12-22] MEDS: ZOLPIDEM TARTRATE 5 MG TABLET PO PRN (23:33)
[2020-12-23] MEDS: oxyCODONE HCL 5 MG TABLET PO PRN ×2 (03:11→08:59)
[2020-12-23] MEDS: ACETAMINOPHEN 325 MG TABLET (FP) PO PRN ×2 (03:12→09:27)
[2020-12-23] MEDS ORDERED: busPIRone HCL 5 MG TABLET ONE (05:43)
[2020-12-23] MEDS ORDERED: busPIRone HCL 10 MG TABLET (FP) ONE (05:43)
[2020-12-23] MEDS: BUSPIRONE HCL 10 MG, BUSPIRONE HCL 5 MG PO SCH (05:47)
[2020-12-23] MEDS: INSULIN SLIDING SCALE (NOVOLOG) 1 VIAL SQ SCH ×2 (05:59→12:18)
[2020-12-23] MEDS: ALBUTEROL SO4 2.5/IPRATROPIUM 0.5 INH SOL 3 ML VIAL.NEB. NEB SCH ×2 (08:57→12:59)
[2020-12-23] MEDS ORDERED: PT OWN MED DRAWER 7, Y5N ONE (09:17)
[2020-12-23] MEDS: PRAMIPEXOLE DIHYDROCHLORIDE 0.25 MG TABLET PO SCH (09:25)
[2020-12-23] MEDS: TOPIRAMATE 25 MG TABLET PO SCH (09:25)
[2020-12-23] MEDS: LIDOCAINE 5% TOPICAL PATCH TP SCH (09:26)
[2020-12-23] MEDS: CARVEDILOL 3.125 MG TABLET (FP) PO SCH ×2 (09:26→09:52)
[2020-12-23] MEDS: MULTIVIT-MINERALS ORAL LIQUID PO SCH (09:26)
[2020-12-23] MEDS: AMINO ACIDS/PROTEIN HYDROLYS 30 ML LIQUID.PKT PO SCH (09:26)
[2020-12-23] MEDS: ENOXAPARIN NA (PORCINE) 40 MG/0.4 ML DISP.SYRIN SQ SCH (09:27)
[2020-12-23 09:57] VITALS: BP 109/67; PULSE 71; TEMP 97.8
[2020-12-23] MEDS: VANCOMYCIN/WATER BAGS 1,250 MG/250 ML BAG IVPB SCH (11:00)
[2020-12-23 11:22] LABS: BASO % 0.5 % (0-2.0); EOS % 4.5 % (0-4.5); HEMATOCRIT 37.9 % (32.4-45.2); HEMOGLOBIN 12.6 GM/dL (10.7-15.3); LYMPH % 17.6 % (8-40); MCH 28.9 pg (25.7-33.7); MCHC 33.3 g/dl (32.0-36.0); MEAN CELL VOLUME 86.8 fl (80-96); MEAN PLT VOLUME 7.1 fl (7.5-11.1); MONO % 5.6 % (3.8-10.2); NEUT % 71.8 % (42.8-82.8); PLATELET COUNT 364 10^3/uL (134-434); RBC 4.37 M/mm3 (3.60-5.2); RDW 12.9 % (11.6-15.6); WHITE BLOOD COUNT 8.2 K/mm3 (4.0-10.0)
[2020-12-23 11:44] LABS: BLOOD UREA NITROGEN 23.9 mg/dL (7-18); CALCIUM 9.5 mg/dL (8.5-10.1); MAGNESIUM 2.4 mg/dL (1.8-2.4)
[2020-12-23 11:45] LABS: ALBUMIN 3.5 g/dl (3.4-5.0)
[2020-12-23 11:47] LABS: CREATININE 0.5 mg/dL (0.55-1.3)
[2020-12-23 11:49] LABS: BILIRUBIN,TOTAL 0.4 mg/dL (0.2-1)
[2020-12-23 12:02] LABS: ANISOCYTOSIS 0; HELMET CELLS 0; HOWELL-JOLLY BODIES 0; MACROCYTOSIS 0; OVALOCYTE 0; PLATELET ESTIMATE NORMAL; ROULEAU 0; SICKELED CELLS 0; TARGET CELLS 0; TEAR DROP CELLS 0; TOXIC GRANULATION 0
== END 2020-12-23 14:25 | disposition home health service (06) | DRG 871 ==
LOC: JER 08:42 → JERBED 13:14 → J7W 14:56
PROVIDERS: ATTEND Nurse Practitioner Acute Care
DX: A41.89 Other specified sepsis (principal); J15.212 Pneumonia due to Methicillin resistant Staphylococcus aureus; E87.2 Acidosis; I50.22 Chronic systolic (congestive) heart failure; N39.0 Urinary tract infection, site not specified; I11.0 Hypertensive heart disease with heart failure; I25.10 Atherosclerotic heart disease of native coronary artery without angina pectoris; G47.33 Obstructive sleep apnea (adult) (pediatric); M51.37 Other intervertebral disc degeneration, lumbosacral region; I08.1 Rheumatic disorders of both mitral and tricuspid valves; E78.5 Hyperlipidemia, unspecified; E11.9 Type 2 diabetes mellitus without complications; I25.2 Old myocardial infarction; M54.5 Low back pain; K59.09 Other constipation; K57.90 Diverticulosis of intestine, part unspecified, without perforation or abscess without bleeding; K64.9 Unspecified hemorrhoids; F41.8 Other specified anxiety disorders; M79.7 Fibromyalgia; R63.0 Anorexia; Z68.27 Body mass index [BMI] 27.0-27.9, adult; E11.42 Type 2 diabetes mellitus with diabetic polyneuropathy; J44.9 Chronic obstructive pulmonary disease, unspecified; G25.81 Restless legs syndrome; R07.81 Pleurodynia; G43.909 Migraine, unspecified, not intractable, without status migrainosus; G47.00 Insomnia, unspecified; Z98.61 Coronary angioplasty status; Z95.810 Presence of automatic (implantable) cardiac defibrillator
CPT/HCPCS: 36415; 70450-TC; 71045-TC-FY; 71250-TC; 72125-TC; 80053; 81003; 82728; 82803; 82962; 83036; 83605; 83615; 83735; 84100; 84484; 85025; 85027; 85610; 85730; 86140; 86359; 86360; 86769; 86922; 87040; 87070; 87086; 87186; 87205; 87389; 87899; 93005; 93010; 94010; 94640; 97116-GP; 97161-GP; 99285-25; C9803; J0131; U0003; U0005

== ENCOUNTER 2021-02-18 18:19 | Observation (INO) | payer OTHER ==
[2021-02-18 19:01] LABS: BASO % 0.2 % (0-2.0); EOS % 10.2 % (0-4.5); HEMATOCRIT 33.4 % (32.4-45.2); HEMOGLOBIN 11.1 GM/dl (10.7-15.3); LYMPH % 26.3 % (8-40); MCH 30.1 pg (25.7-33.7); MCHC 33.3 g/dl (32.0-36.0); MEAN CELL VOLUME 90.2 fl (80-96); MEAN PLT VOLUME 7.7 fl (7.5-11.1); MONO % 6.6 % (3.8-10.2); NEUT % 56.7 % (42.8-82.8); PLATELET COUNT 184 10^3/uL (134-434); RDW 13.5 % (11.6-15.6); WHITE BLOOD COUNT 5.1 K/mm3 (4.0-10.8)
[2021-02-18 19:31] LABS: ALBUMIN 3.8 g/dl (3.4-5.0); ALK PHOS 79 U/L (45-117); ANION GAP 9 MMOL/L (8-16); BILIRUBIN,TOTAL 0.5 mg/dl (0.2-1); CALCIUM 8.7 mg/dl (8.5-10); CHLORIDE 107 mmol/L (98-107); CO2 23 mmol/L (21-32); CREATININE 0.8 mg/dl (0.55-1.3); GLUCOSE,RANDOM 361 mg/dl (74-106); SGOT/AST 32 U/L (15-37); SGPT/ALT 40 U/L (13-61); SODIUM 139 mmol/L (136-145); TOT PROT 6.4 g/dl (6.4-8.2)
[2021-02-18 19:53] LABS: N-TERMINAL BNP 427.5 pg/ml (5-125)
[2021-02-18 22:22] LABS: EPITHELIAL CELLS FEW /hpf
[2021-02-18] MEDS ORDERED: ACETAMINOPHEN 1000 MG/100 ML VIAL (NON FORMULARY) IVPB ONE (23:32)
[2021-02-18] MEDS ORDERED: ACETAMINOPHEN INJECTION 100 ML IVPB ONE (23:35)
[2021-02-19] MEDS ORDERED: CIPROFLOXACIN 500 MG TABLET (RESTRICTED TO ID) PO ONE (01:43)
[2021-02-19] MEDS ORDERED: CIPROFLOXACIN 250 MG TABLET (RESTRICTED TO ID) PO ONE (01:48)
[2021-02-19 03:49] LABS: BASO % 0.3 % (0-2.0); EOS % 11.3 % (0-4.5); HEMOGLOBIN 11.9 GM/dL (10.7-15.3); LYMPH % 23.7 % (8-40); MCH 30.1 pg (25.7-33.7); MCHC 34.1 g/dl (32.0-36.0); MEAN CELL VOLUME 88.3 fl (80-96); MEAN PLT VOLUME 7.3 fl (7.5-11.1); MONO % 6.3 % (3.8-10.2); NEUT % 58.4 % (42.8-82.8); PLATELET COUNT 181 10^3/uL (134-434); RBC 3.96 M/mm3 (3.60-5.2); RDW 14.3 % (11.6-15.6); WHITE BLOOD COUNT 5.5 K/mm3 (4.0-10.0)
[2021-02-19 03:56] LABS: INR 0.93 (0.83-1.09); PROTHROMBIN TIME (PATIENT) 11.5 SEC (9.7-13.0)
[2021-02-19 04:07] LABS: CHLORIDE 110 mmol/L (98-107); SODIUM 144 mmol/L (136-145)
[2021-02-19 04:09] LABS: ANION GAP 9 MMOL/L (8-16); BLOOD UREA NITROGEN 11.4 mg/dL (7-18); CALCIUM 8.2 mg/dL (8.5-10.1); CO2 24 mmol/L (21-32); GLUCOSE,RANDOM 142 mg/dL (74-106)
[2021-02-19 04:13] LABS: CREATININE 0.8 mg/dL (0.55-1.3)
[2021-02-19 04:17] LABS: N-TERMINAL BNP 295.8 pg/ml (5-125)
[2021-02-19 05:22] VITALS: BMI 34.3
[2021-02-19] MEDS: INSULIN SLIDING SCALE (NOVOLOG) 1 VIAL SQ SCH ×3 (07:03→17:34)
[2021-02-19] MEDS ORDERED: busPIRone HCL 5 MG TABLET PO ONE (07:45)
[2021-02-19] MEDS ORDERED: GABAPENTIN 300 MG CAPSULE PO SCH ×2 (10:00→14:00)
[2021-02-19] MEDS ORDERED: PRAMIPEXOLE DIHYDROCHLORIDE 0.25 MG TABLET PO SCH ×2 (10:00→22:00)
[2021-02-19] MEDS ORDERED: DULoxetine HCL 30 MG CAPSULE.DR PO SCH ×2 (10:00→22:00)
[2021-02-19] MEDS ORDERED: CARVEDILOL 3.125 MG TABLET (FP) PO SCH ×2 (10:00→22:00)
[2021-02-19] MEDS ORDERED: ENOXAPARIN NA (PORCINE) 40 MG/0.4 ML DISP.SYRIN SQ SCH (10:00)
[2021-02-19] MEDS ORDERED: oxyCODONE HCL 5 MG TABLET PO SCH (10:00)
[2021-02-19] MEDS ORDERED: ZOLPIDEM TARTRATE 5 MG TABLET PO PRN (11:28)
[2021-02-19] MEDS ORDERED: oxyCODONE HCL 5 MG TABLET PO PRN (11:28)
[2021-02-19] MEDS ORDERED: clonazePAM 0.5 MG TABLET PO PRN (11:28)
[2021-02-19] MEDS ORDERED: TIZANIDINE HCL 2 MG TABLET PO PRN ×3 (11:28→12:02)
[2021-02-19] MEDS ORDERED: ASPIRIN COATED 81 MG TABLET.EC PO SCH (11:45)
[2021-02-19] MEDS ORDERED: POLYETHYLENE GLYCOL (HEALTHYLAX) 3350 17 GM PACKET PO SCH (12:30)
[2021-02-19] MEDS ORDERED: LIDOCAINE 5% TOPICAL PATCH TP SCH (12:30)
[2021-02-19] MEDS ORDERED: clonazePAM 0.5 MG TABLET PO SCH (14:00)
[2021-02-19] MEDS ORDERED: busPIRone HCL 5 MG TABLET PO SCH (14:00)
[2021-02-19 14:08] VITALS: BP 116/66; PULSE 65; TEMP 97.9
[2021-02-19] MEDS ORDERED: metFORMIN HCL 500 MG TABLET (FP) PO SCH (16:30)
[2021-02-19] MEDS ORDERED: AMOX TR/POT CLAV 875MG/125MG TABLETS (FP) PO SCH (17:30)
[2021-02-19] MEDS ORDERED: TOPIRAMATE 25 MG TABLET PO SCH (22:00)
[2021-02-19] MEDS ORDERED: ATORVASTATIN CA 40 MG TABLET (FP) PO SCH ×2 (22:00)
[2021-02-19] MEDS ORDERED: QUEtiapine FUMARATE 25 MG TABLET PO SCH (22:00)
[2021-02-19] MEDS ORDERED: LIDOCAINE PATCH REMOVAL MC SCH (22:00)
[2021-02-20] MEDS ORDERED: LIDOCAINE 5% TOPICAL PATCH TP SCH (10:00)
== END 2021-02-19 17:40 | disposition home or self-care (01) ==
LOC: FER 18:19 → FM/S 02-19 03:14
PROVIDERS: ADMIT Internal Medicine; ATTEND Nurse Practitioner Acute Care
PROC: 3E033NZ Introduction of Analgesics, Hypnotics, Sedatives into Peripheral Vein, Percutaneous Approach (ICD-10-PCS; principal; 2021-02-19)
PROC: 3E023GC Introduction of Other Therapeutic Substance into Muscle, Percutaneous Approach (ICD-10-PCS; 2021-02-19)
DX: N39.0 Urinary tract infection, site not specified (principal); E78.5 Hyperlipidemia, unspecified; I25.10 Atherosclerotic heart disease of native coronary artery without angina pectoris; I11.9 Hypertensive heart disease without heart failure; M54.5 Low back pain; G89.29 Other chronic pain; F41.0 Panic disorder [episodic paroxysmal anxiety]; I50.1 Left ventricular failure, unspecified; I07.1 Rheumatic tricuspid insufficiency; R05 Cough; J40 Bronchitis, not specified as acute or chronic; Z99.81 Dependence on supplemental oxygen; G47.30 Sleep apnea, unspecified; Z87.891 Personal history of nicotine dependence; E66.8 Other obesity; Z68.34 Body mass index [BMI] 34.0-34.9, adult; Z95.810 Presence of automatic (implantable) cardiac defibrillator; F45.22 Body dysmorphic disorder; E78.00 Pure hypercholesterolemia, unspecified; E11.9 Type 2 diabetes mellitus without complications; I50.20 Unspecified systolic (congestive) heart failure; M51.37 Other intervertebral disc degeneration, lumbosacral region; R10.32 Left lower quadrant pain
CPT/HCPCS: 36415; 71045-TC-FY; 71260-TC; 74177-TC; 80048; 80053; 81003; 81015; 82550; 82962; 83880; 84484; 85025; 85610; 87086; 87186; 93005; 96372; 96374; 99285-25; C9803; G0378; J0131; Q9967; U0003; U0005

== ENCOUNTER 2021-02-25 18:00 | Emergency (ER) | payer OTHER ==
[2021-02-25 18:24] VITALS: BP 111/73; PULSE 75; TEMP 98; BMI 28.3
== END 2021-02-25 19:50 | disposition home or self-care (01) ==
LOC: JERFT 18:00 → JER 18:00 → JERFT 19:50
DX: T17.1XXA Foreign body in nostril, initial encounter (principal)
CPT/HCPCS: 99282-25

== ENCOUNTER 2021-03-26 08:00 | Day surgery (SDC) | payer OTHER ==
[2021-03-24 14:04] VITALS: BMI 27.3
[2021-03-26] MEDS ORDERED: oxyCODONE HCL 5 MG TABLET PO ONE (11:30)
[2021-03-26 12:42] VITALS: PULSE 68
[2021-03-26 14:44] VITALS: BP 111/66; TEMP 97.1
== END 2021-03-26 13:35 | disposition home or self-care (01) ==
LOC: JRADIR 08:00 → EDSTATUS 10:00 → JRADIR 13:35
PROVIDERS: ATTEND Neurological Surgery
PROC: B03BYZZ Magnetic Resonance Imaging (MRI) of Spinal Cord using Other Contrast (ICD-10-PCS; principal; 2021-03-26)
DX: M54.16 Radiculopathy, lumbar region (principal); Z95.0 Presence of cardiac pacemaker
CPT/HCPCS: 62305; 72125-TC; 72131-TC; 72240-TC-FY; 72265-TC-FY

== ENCOUNTER 2021-05-06 17:44 | Inpatient (IN) | payer OTHER ==
[2021-05-06] MEDS ORDERED: ACETAMINOPHEN 1000 MG/100 ML VIAL IVPB ONE (21:16)
[2021-05-06] MEDS ORDERED: SODIUM CHLORIDE 0.9% 500 ML INFUS.BAG IV ONE (21:16)
[2021-05-06] MEDS ORDERED: FAMOTIDINE 20 MG/50 ML IVPB 20 MG/50 ML MG IVPB ONE (21:16)
[2021-05-06 22:15] LABS: BASO % 1.1 % (0-2.0); EOS % 4.7 % (0-4.5); HEMATOCRIT 37.6 % (32.4-45.2); HEMOGLOBIN 13.2 GM/dL (10.7-15.3); LYMPH % 23.2 % (8-40); MCH 29.8 pg (25.7-33.7); MCHC 35.2 g/dl (32.0-36.0); MEAN CELL VOLUME 84.7 fl (80-96); MEAN PLT VOLUME 7.3 fl (7.5-11.1); MONO % 6.4 % (3.8-10.2); NEUT % 64.6 % (42.8-82.8); RBC 4.44 M/mm3 (3.60-5.2); RDW 13.5 % (11.6-15.6); WHITE BLOOD COUNT 6.8 K/mm3 (4.0-10.0)
[2021-05-06 22:24] LABS: CHLORIDE 101 mmol/L (98-107); SODIUM 137 mmol/L (136-145)
[2021-05-06 22:26] LABS: ALBUMIN 3.3 g/dl (3.4-5.0); ANION GAP 11 MMOL/L (8-16); CALCIUM 9.4 mg/dL (8.5-10.1); CO2 26 mmol/L (21-32); GLUCOSE,RANDOM 302 mg/dL (74-106)
[2021-05-06 22:27] LABS: BLOOD UREA NITROGEN 6.7 mg/dL (7-18)
[2021-05-06 22:29] LABS: SGOT/AST 13 U/L (15-37); SGPT/ALT 15 U/L (13-61)
[2021-05-06 22:30] LABS: CREATININE 0.7 mg/dL (0.55-1.3)
[2021-05-06 22:31] LABS: BILIRUBIN,TOTAL 0.9 mg/dL (0.2-1); TOT PROT 7.1 g/dl (6.4-8.2)
[2021-05-06 22:32] LABS: ALK PHOS 124 U/L (45-117)
[2021-05-06 22:55] LABS: PLATELET ESTIMATE NORMAL
[2021-05-06 23:00] LABS: PLATELET COUNT 174 10^3/uL (134-434)
[2021-05-06 23:10] LABS: LIPASE 81 U/L (73-393)
[2021-05-06 23:12] LABS: BILIRUBIN,DIRECT 0.2 mg/dL (0.0-0.2)
[2021-05-06 23:14] LABS: LDH 227 U/L (84-246)
[2021-05-06 23:32] LABS: EPI CELLS 28 /uL (0-25.1); HYALINE CASTS 1 /uL (0-3.1); PH,URINE 5.5 (5.0-8.0); URINE APPEARANCE CLOUDY; URINE BACTERIA >9,000 /uL (0-1359); URINE BILIRUBIN NEGATIVE (NEGATIVE); URINE COLOR YELLOW; URINE GLUCOSE (UA) 3+ (NEGATIVE); URINE KETONE 1+ (NEGATIVE); URINE LEUK ESTERASE TRACE (NEGATIVE); URINE NITRITE NEGATIVE (NEGATIVE); URINE PROTEIN NEGATIVE (NEGATIVE); URINE RBC 8 /uL (0-23.9); URINE UROBILINOGEN 0.2 mg/dL (0.2-1.0); URINE WBC 341 /uL (0-25.8)
[2021-05-06 23:35] LABS: INR 1.25 (0.83-1.09)
[2021-05-06 23:38] LABS: ACTIVATED PTT 30.4 SECONDS (25.2-36.5)
[2021-05-07] MEDS ORDERED: CEFTRIAXONE 1,000 MG in DEXTROSE 5%-WATER - 50 ML IVPB ONE (00:24)
[2021-05-07] MEDS ORDERED: CEFTRIAXONE 1 GM/50 ML BAG ONE ×2 (00:45→13:23)
[2021-05-07] MEDS ORDERED: ACETAMINOPHEN 1000 MG/100 ML VIAL IVPB ONE (03:07)
[2021-05-07] MEDS ORDERED: ACETAMINOPHEN INJECTION 100 ML IVPB ONE (03:14)
[2021-05-07] MEDS ORDERED: AZITHROMYCIN IVPB 500 MG in DEXTROSE 5%-WATER - 250 ML IVPB ONE (03:27)
[2021-05-07] MEDS ORDERED: guaiFENesin 600 MG TABLET.ER (FP) PO ONE (04:51)
[2021-05-07] MEDS ORDERED: oxyCODONE HCL 5 MG TABLET PO ONE (04:53)
[2021-05-07] MEDS ORDERED: VANCOMYCIN 1 GM in D5W (PRE-DOCKED) 1,000 MG/250 ML IVPB ONE (05:38)
[2021-05-07 07:23] LABS: BASO % 1.1 % (0-2.0); EOS % 5.4 % (0-4.5); HEMATOCRIT 37.5 % (32.4-45.2); HEMOGLOBIN 13.2 GM/dL (10.7-15.3); LYMPH % 23.2 % (8-40); MCH 29.6 pg (25.7-33.7); MCHC 35.1 g/dl (32.0-36.0); MEAN CELL VOLUME 84.5 fl (80-96); MEAN PLT VOLUME 6.8 fl (7.5-11.1); NEUT % 62.3 % (42.8-82.8); PLATELET COUNT 182 10^3/uL (134-434); RBC 4.44 M/mm3 (3.60-5.2); RDW 13.4 % (11.6-15.6); WHITE BLOOD COUNT 5.5 K/mm3 (4.0-10.0)
[2021-05-07 07:53] LABS: ALBUMIN 3.1 g/dl (3.4-5.0); BLOOD UREA NITROGEN 7.8 mg/dL (7-18); CALCIUM 8.8 mg/dL (8.5-10.1); MAGNESIUM 1.5 mg/dL (1.8-2.4)
[2021-05-07 07:56] LABS: CREATININE 0.6 mg/dL (0.55-1.3)
[2021-05-07 07:57] LABS: PHOSPHOROUS 5.3 mg/dL (2.5-4.9)
[2021-05-07 07:58] LABS: TOT PROT 6.8 g/dl (6.4-8.2)
[2021-05-07] MEDS ORDERED: MAGNESIUM SULF 50% (8.12 MEQ/2 ML-1 GM VIAL) IVPB ONE (07:58)
[2021-05-07] MEDS ORDERED: POLYETHYLENE GLYCOL (HEALTHYLAX) 3350 17 GM PACKET ONE (08:55)
[2021-05-07] MEDS ORDERED: predniSONE 20 MG TABLET (UD) ONE (08:55)
[2021-05-07] MEDS ORDERED: DOCUSATE SODIUM 100 MG CAPSULE (FP) PO ONE (08:56)
[2021-05-07] MEDS ORDERED: ASPIRIN 81 MG CHEWABLE TABLETS ONE (08:56)
[2021-05-07] MEDS ORDERED: MAGNESIUM 1GM/D5W - 1 GM/100 ML IVPB IVPB ONE (08:57)
[2021-05-07] MEDS: INSULIN SLIDING SCALE (NOVOLOG) 1 VIAL SQ SCH ×4 (09:30→22:09)
[2021-05-07] MEDS ORDERED: predniSONE 20 MG TABLET (UD) PO SCH (10:00)
[2021-05-07] MEDS: DOCUSATE SODIUM 100 MG CAPSULE (FP) PO SCH ×2 (10:03→22:03)
[2021-05-07] MEDS: ASPIRIN 81 MG CHEWABLE TABLETS PO SCH (10:03)
[2021-05-07] MEDS: POLYETHYLENE GLYCOL (HEALTHYLAX) 3350 17 GM PACKET PO SCH (10:03)
[2021-05-07] MEDS: CARVEDILOL 3.125 MG TABLET (FP) PO SCH ×2 (10:03→22:05)
[2021-05-07] MEDS: DULoxetine HCL 30 MG CAPSULE.DR PO SCH ×2 (10:03→22:03)
[2021-05-07] MEDS: BUDESONIDE/FORMETEROL FUMARATE 80/4.5 mcg INHALER IH SCH ×2 (10:03→23:53)
[2021-05-07] MEDS: TOPIRAMATE 25 MG TABLET PO SCH ×2 (10:04→23:53)
[2021-05-07] MEDS ORDERED: ACETAMINOPHEN 1000 MG/100 ML VIAL IVPB PRN (11:29)
[2021-05-07] MEDS ORDERED: AZITHROMYCIN IVPB 500 MG in DEXTROSE 5%-WATER - 250 ML IVPB SCH (11:30)
[2021-05-07] MEDS ORDERED: THIAMINE HCL 200 MG/2 ML VIAL IVPB ONE (12:00)
[2021-05-07] MEDS ORDERED: THIAMINE HCL 200 MG/2 ML VIAL ONE (13:23)
[2021-05-07] MEDS ORDERED: busPIRone HCL 5 MG TABLET ONE (13:23)
[2021-05-07] MEDS: NYSTATIN 500,000 UNITS/5 ML SUSPENSION PO SCH ×3 (13:38→23:53)
[2021-05-07] MEDS: CEFTRIAXONE 1 GM in DEXTROSE 5%-WATER - 50 ML IVPB SCH (13:38)
[2021-05-07] MEDS ORDERED: PNEUMOC 13-VAL CONJ-DIP CRM/PF 0.5 ML DISP.SYRIN IM ONE (16:06)
[2021-05-07] MEDS: busPIRone HCL 5 MG TABLET PO SCH ×2 (16:38→22:03)
[2021-05-07] MEDS: oxyCODONE HCL 5 MG TABLET PO PRN ×2 (17:39→23:59)
[2021-05-07] MEDS: GABAPENTIN 300 MG CAPSULE PO SCH ×2 (17:40→22:04)
[2021-05-07] MEDS ORDERED: PT OWN MED DRAWER 7, Y5N ONE (21:53)
[2021-05-07] MEDS ORDERED: INSULIN (LEVEMIR) 100 UNITS/ML UNITS SQ SCH (22:00)
[2021-05-07] MEDS: PRAMIPEXOLE DIHYDROCHLORIDE 0.25 MG TABLET PO SCH (22:04)
[2021-05-07] MEDS: ATORVASTATIN CA 40 MG TABLET (FP) PO SCH (22:04)
[2021-05-07] MEDS: QUEtiapine FUMARATE 25 MG TABLET PO SCH (22:05)
[2021-05-08] MEDS ORDERED: PT OWN MED DRAWER 7, Y5N ONE ×4 (05:13→22:44)
[2021-05-08] MEDS: NYSTATIN 500,000 UNITS/5 ML SUSPENSION PO SCH ×3 (05:16→17:01)
[2021-05-08] MEDS ORDERED: INSULIN (LEVEMIR) 100 UNITS/ML UNITS SQ SCH ×2 (07:00→11:30)
[2021-05-08] MEDS: busPIRone HCL 5 MG TABLET PO SCH ×3 (07:03→22:52)
[2021-05-08] MEDS: INSULIN SLIDING SCALE (NOVOLOG) 1 VIAL SQ SCH ×4 (07:04→22:54)
[2021-05-08 07:40] LABS: BASO % 0.7 % (0-2.0); EOS % 2.1 % (0-4.5); HEMATOCRIT 36.9 % (32.4-45.2); HEMOGLOBIN 13.2 GM/dL (10.7-15.3); LYMPH % 22.1 % (8-40); MCH 29.9 pg (25.7-33.7); MCHC 35.6 g/dl (32.0-36.0); MEAN PLT VOLUME 7.4 fl (7.5-11.1); MONO % 8.5 % (3.8-10.2); NEUT % 66.6 % (42.8-82.8); PLATELET COUNT 227 10^3/uL (134-434); RDW 13.6 % (11.6-15.6); WHITE BLOOD COUNT 6.7 K/mm3 (4.0-10.0)
[2021-05-08 07:47] LABS: ALBUMIN 3.2 g/dl (3.4-5.0); BLOOD UREA NITROGEN 13.5 mg/dL (7-18); CALCIUM 8.9 mg/dL (8.5-10.1); MAGNESIUM 1.9 mg/dL (1.8-2.4)
[2021-05-08 07:50] LABS: PHOSPHOROUS 4.3 mg/dL (2.5-4.9)
[2021-05-08 07:51] LABS: CREATININE 0.8 mg/dL (0.55-1.3)
[2021-05-08 07:52] LABS: BILIRUBIN,TOTAL 0.6 mg/dL (0.2-1); TOT PROT 6.9 g/dl (6.4-8.2)
[2021-05-08] MEDS: HEPARIN NA (PORCINE) 5,000 UNITS/ML 1ML VIAL SQ SCH ×3 (08:07→22:59)
[2021-05-08] MEDS ORDERED: cefTRIAXone SODIUM 1 GM VIAL ONE (09:06)
[2021-05-08] MEDS ORDERED: DEXTROSE 5%-WATER - 50 ML IVPB ONE (09:06)
[2021-05-08] MEDS: POLYETHYLENE GLYCOL (HEALTHYLAX) 3350 17 GM PACKET PO SCH (09:36)
[2021-05-08] MEDS: TOPIRAMATE 25 MG TABLET PO SCH ×2 (09:36→22:53)
[2021-05-08] MEDS: ASPIRIN 81 MG CHEWABLE TABLETS PO SCH (09:36)
[2021-05-08] MEDS: PRAMIPEXOLE DIHYDROCHLORIDE 0.25 MG TABLET PO SCH ×2 (09:37→22:53)
[2021-05-08] MEDS: TIZANIDINE HCL 4 MG TABLET PO PRN (09:38)
[2021-05-08] MEDS: GABAPENTIN 300 MG CAPSULE PO SCH ×4 (09:38→22:53)
[2021-05-08] MEDS: DOCUSATE SODIUM 100 MG CAPSULE (FP) PO SCH ×2 (09:38→22:53)
[2021-05-08] MEDS: THIAMINE HCL 100 MG TABLET (FP) PO SCH (09:38)
[2021-05-08] MEDS: oxyCODONE HCL 5 MG TABLET PO PRN ×2 (09:38→16:57)
[2021-05-08] MEDS: DULoxetine HCL 30 MG CAPSULE.DR PO SCH ×2 (09:38→22:52)
[2021-05-08] MEDS: CARVEDILOL 3.125 MG TABLET (FP) PO SCH ×2 (09:38→23:01)
[2021-05-08] MEDS: BUDESONIDE/FORMETEROL FUMARATE 80/4.5 mcg INHALER IH SCH ×2 (09:39→23:00)
[2021-05-08] MEDS: CEFTRIAXONE 1 GM in DEXTROSE 5%-WATER - 50 ML IVPB SCH (09:40)
[2021-05-08] MEDS ORDERED: AZITHROMYCIN IVPB 500 MG/250 ML BAG IVPB SCH (10:00)
[2021-05-08] MEDS ORDERED: INSULIN (NOVOLOG) ASPART 100 UNITS/ML 10ML VIAL ONE (11:08)
[2021-05-08] MEDS ORDERED: DEXTROSE 50%-WATER - 25 GM/50 ML VIAL IVPUSH PRN (11:29)
[2021-05-08] MEDS: VANCOMYCIN 1 GRAM (PRE-DOCKED) 1,000 MG/250 ML BAG IVPB SCH (11:31)
[2021-05-08 16:01] VITALS: BMI 25.1
[2021-05-08 20:05] LABS: BASO % 1.8 % (0-2.0); EOS % 5.5 % (0-4.5); HEMATOCRIT 35.6 % (32.4-45.2); HEMOGLOBIN 12.8 GM/dL (10.7-15.3); LYMPH % 31.9 % (8-40); MCH 29.5 pg (25.7-33.7); MCHC 35.9 g/dl (32.0-36.0); MEAN CELL VOLUME 82.3 fl (80-96); MONO % 8.3 % (3.8-10.2); NEUT % 52.5 % (42.8-82.8); PLATELET COUNT 225 10^3/uL (134-434); RBC 4.33 M/mm3 (3.60-5.2); RDW 13.5 % (11.6-15.6); WHITE BLOOD COUNT 5.5 K/mm3 (4.0-10.0)
[2021-05-08] MEDS: QUEtiapine FUMARATE 25 MG TABLET PO SCH (22:53)
[2021-05-08] MEDS: ATORVASTATIN CA 40 MG TABLET (FP) PO SCH (22:53)
[2021-05-08] MEDS: INSULIN (LEVEMIR) 100 UNITS/ML UNITS SQ SCH (22:56)
[2021-05-09] MEDS: oxyCODONE HCL 5 MG TABLET PO PRN ×5 (00:19→23:40)
[2021-05-09] MEDS: NYSTATIN 500,000 UNITS/5 ML SUSPENSION PO SCH ×5 (00:20→23:40)
[2021-05-09] MEDS: busPIRone HCL 5 MG TABLET PO SCH ×3 (05:26→22:45)
[2021-05-09] MEDS: HEPARIN NA (PORCINE) 5,000 UNITS/ML 1ML VIAL SQ SCH ×3 (05:26→22:45)
[2021-05-09] MEDS: INSULIN SLIDING SCALE (NOVOLOG) 1 VIAL SQ SCH ×3 (06:32→17:54)
[2021-05-09] MEDS: INSULIN (LEVEMIR) 100 UNITS/ML UNITS SQ SCH ×2 (06:36→22:44)
[2021-05-09 08:07] LABS: CALCIUM 8.9 mg/dL (8.5-10.1)
[2021-05-09 08:08] LABS: ALBUMIN 3.2 g/dl (3.4-5.0); BLOOD UREA NITROGEN 9.8 mg/dL (7-18); MAGNESIUM 1.8 mg/dL (1.8-2.4)
[2021-05-09 08:11] LABS: CREATININE 0.8 mg/dL (0.55-1.3); PHOSPHOROUS 4.4 mg/dL (2.5-4.9)
[2021-05-09 08:12] LABS: BILIRUBIN,TOTAL 0.5 mg/dL (0.2-1); TOT PROT 6.7 g/dl (6.4-8.2)
[2021-05-09] MEDS ORDERED: PT OWN MED DRAWER 7, Y5N ONE ×2 (10:18→22:34)
[2021-05-09] MEDS ORDERED: cefTRIAXone SODIUM 1 GM VIAL ONE (10:19)
[2021-05-09] MEDS ORDERED: DEXTROSE 5%-WATER - 50 ML IVPB ONE (10:19)
[2021-05-09] MEDS: POLYETHYLENE GLYCOL (HEALTHYLAX) 3350 17 GM PACKET PO SCH ×2 (10:47→22:53)
[2021-05-09] MEDS: DOCUSATE SODIUM 100 MG CAPSULE (FP) PO SCH ×2 (10:47→22:45)
[2021-05-09] MEDS: DULoxetine HCL 30 MG CAPSULE.DR PO SCH ×2 (10:47→22:45)
[2021-05-09] MEDS: CARVEDILOL 3.125 MG TABLET (FP) PO SCH ×2 (10:47→22:45)
[2021-05-09] MEDS: PRAMIPEXOLE DIHYDROCHLORIDE 0.25 MG TABLET PO SCH ×2 (10:47→22:45)
[2021-05-09] MEDS: BUDESONIDE/FORMETEROL FUMARATE 80/4.5 mcg INHALER IH SCH ×2 (10:48→22:45)
[2021-05-09] MEDS: CEFTRIAXONE 1 GM in DEXTROSE 5%-WATER - 50 ML IVPB SCH (10:48)
[2021-05-09] MEDS: GABAPENTIN 300 MG CAPSULE PO SCH ×4 (10:48→22:45)
[2021-05-09] MEDS: TOPIRAMATE 25 MG TABLET PO SCH ×2 (10:49→22:45)
[2021-05-09] MEDS: THIAMINE HCL 100 MG TABLET (FP) PO SCH (10:50)
[2021-05-09] MEDS: VANCOMYCIN 1 GRAM (PRE-DOCKED) 1,000 MG/250 ML BAG IVPB SCH (11:01)
[2021-05-09] MEDS: ASPIRIN 81 MG CHEWABLE TABLETS PO SCH (11:01)
[2021-05-09] MEDS ORDERED: INSULIN (NOVOLOG) ASPART 100 UNITS/ML 10ML VIAL ONE (11:51)
[2021-05-09] MEDS: TIZANIDINE HCL 4 MG TABLET PO PRN (22:44)
[2021-05-09] MEDS: QUEtiapine FUMARATE 25 MG TABLET PO SCH (22:45)
[2021-05-09] MEDS: ATORVASTATIN CA 40 MG TABLET (FP) PO SCH (22:45)
[2021-05-09] MEDS: clonazePAM 0.5 MG TABLET PO PRN (23:56)
[2021-05-10] MEDS: NYSTATIN 500,000 UNITS/5 ML SUSPENSION PO SCH ×4 (06:24→23:29)
[2021-05-10] MEDS: busPIRone HCL 5 MG TABLET PO SCH ×3 (06:24→22:57)
[2021-05-10] MEDS: HEPARIN NA (PORCINE) 5,000 UNITS/ML 1ML VIAL SQ SCH ×3 (06:24→22:58)
[2021-05-10] MEDS ORDERED: INSULIN (NOVOLOG) ASPART 100 UNITS/ML 10ML VIAL ONE (06:25)
[2021-05-10] MEDS: INSULIN (LEVEMIR) 100 UNITS/ML UNITS SQ SCH ×2 (06:26→23:01)
[2021-05-10] MEDS: INSULIN SLIDING SCALE (NOVOLOG) 1 VIAL SQ SCH ×3 (06:26→17:49)
[2021-05-10] MEDS: oxyCODONE HCL 5 MG TABLET PO PRN ×3 (06:43→23:28)
[2021-05-10 10:20] LABS: HEMATOCRIT 38.4 % (32.4-45.2); HEMOGLOBIN 13.3 GM/dL (10.7-15.3); MCH 29.3 pg (25.7-33.7); MCHC 34.6 g/dl (32.0-36.0); MEAN CELL VOLUME 84.7 fl (80-96); MEAN PLT VOLUME 8.3 fl (7.5-11.1); PLATELET COUNT 243 10^3/uL (134-434); RBC 4.54 M/mm3 (3.60-5.2); RDW 13.6 % (11.6-15.6); WHITE BLOOD COUNT 5.6 K/mm3 (4.0-10.0)
[2021-05-10 10:36] LABS: BLOOD UREA NITROGEN 9.9 mg/dL (7-18); CALCIUM 8.6 mg/dL (8.5-10.1)
[2021-05-10 10:40] LABS: CREATININE 0.7 mg/dL (0.55-1.3)
[2021-05-10] MEDS ORDERED: DEXTROSE 5%-WATER - 50 ML IVPB ONE (13:07)
[2021-05-10] MEDS ORDERED: cefTRIAXone SODIUM 1 GM VIAL ONE (13:07)
[2021-05-10] MEDS: CARVEDILOL 3.125 MG TABLET (FP) PO SCH ×2 (13:12→22:57)
[2021-05-10] MEDS: GABAPENTIN 300 MG CAPSULE PO SCH ×4 (13:12→22:56)
[2021-05-10] MEDS: PRAMIPEXOLE DIHYDROCHLORIDE 0.25 MG TABLET PO SCH ×2 (13:14→22:57)
[2021-05-10] MEDS: DOCUSATE SODIUM 100 MG CAPSULE (FP) PO SCH ×2 (13:14→22:57)
[2021-05-10] MEDS: DULoxetine HCL 30 MG CAPSULE.DR PO SCH ×2 (13:14→22:57)
[2021-05-10] MEDS: BUDESONIDE/FORMETEROL FUMARATE 80/4.5 mcg INHALER IH SCH ×2 (13:15→23:00)
[2021-05-10] MEDS: POLYETHYLENE GLYCOL (HEALTHYLAX) 3350 17 GM PACKET PO SCH ×2 (13:15→23:01)
[2021-05-10] MEDS: ASPIRIN 81 MG CHEWABLE TABLETS PO SCH (13:15)
[2021-05-10] MEDS: CEFTRIAXONE 1 GM in DEXTROSE 5%-WATER - 50 ML IVPB SCH (13:15)
[2021-05-10] MEDS: THIAMINE HCL 100 MG TABLET (FP) PO SCH (13:16)
[2021-05-10] MEDS ORDERED: PT OWN MED DRAWER 7, Y5N ONE ×2 (13:19→22:23)
[2021-05-10] MEDS: TOPIRAMATE 25 MG TABLET PO SCH ×2 (13:25→22:58)
[2021-05-10] MEDS: VANCOMYCIN 1 GRAM (PRE-DOCKED) 1,000 MG/250 ML BAG IVPB SCH (17:48)
[2021-05-10] MEDS: ATORVASTATIN CA 40 MG TABLET (FP) PO SCH (22:56)
[2021-05-10] MEDS: QUEtiapine FUMARATE 25 MG TABLET PO SCH (22:57)
[2021-05-11] MEDS ORDERED: ZOLPIDEM TARTRATE 5 MG TABLET PO ONE (00:29)
[2021-05-11] MEDS ORDERED: PT OWN MED DRAWER 7, Y5N ONE ×3 (06:13→22:48)
[2021-05-11] MEDS: busPIRone HCL 5 MG TABLET PO SCH ×3 (06:15→23:00)
[2021-05-11] MEDS: NYSTATIN 500,000 UNITS/5 ML SUSPENSION PO SCH ×3 (06:15→18:03)
[2021-05-11] MEDS: HEPARIN NA (PORCINE) 5,000 UNITS/ML 1ML VIAL SQ SCH ×3 (06:15→23:04)
[2021-05-11] MEDS: INSULIN SLIDING SCALE (NOVOLOG) 1 VIAL SQ SCH ×3 (06:19→18:08)
[2021-05-11] MEDS: INSULIN (LEVEMIR) 100 UNITS/ML UNITS SQ SCH ×2 (06:21→23:06)
[2021-05-11] MEDS: oxyCODONE HCL 5 MG TABLET PO PRN ×2 (06:37→14:18)
[2021-05-11 08:38] LABS: BASO % 1.4 % (0-2.0); EOS % 5.8 % (0-4.5); HEMATOCRIT 40.7 % (32.4-45.2); HEMOGLOBIN 14.2 GM/dL (10.7-15.3); LYMPH % 30.3 % (8-40); MCH 29.7 pg (25.7-33.7); MCHC 34.9 g/dl (32.0-36.0); MEAN CELL VOLUME 85.2 fl (80-96); MEAN PLT VOLUME 7.3 fl (7.5-11.1); MONO % 7.9 % (3.8-10.2); NEUT % 54.6 % (42.8-82.8); PLATELET COUNT 252 10^3/uL (134-434); RBC 4.78 M/mm3 (3.60-5.2); RDW 13.4 % (11.6-15.6); WHITE BLOOD COUNT 6.1 K/mm3 (4.0-10.0)
[2021-05-11 09:07] LABS: ALBUMIN 3.4 g/dl (3.4-5.0); BLOOD UREA NITROGEN 12.3 mg/dL (7-18); CALCIUM 9.6 mg/dL (8.5-10.1)
[2021-05-11 09:10] LABS: CREATININE 0.7 mg/dL (0.55-1.3)
[2021-05-11 09:12] LABS: BILIRUBIN,TOTAL 0.7 mg/dL (0.2-1); TOT PROT 7.3 g/dl (6.4-8.2)
[2021-05-11] MEDS ORDERED: DEXTROSE 5%-WATER - 50 ML IVPB ONE (09:14)
[2021-05-11] MEDS ORDERED: cefTRIAXone SODIUM 1 GM VIAL ONE (09:14)
[2021-05-11] MEDS: CEFTRIAXONE 1 GM in DEXTROSE 5%-WATER - 50 ML IVPB SCH (09:47)
[2021-05-11] MEDS: DULoxetine HCL 30 MG CAPSULE.DR PO SCH ×2 (09:49→23:00)
[2021-05-11] MEDS: ASPIRIN 81 MG CHEWABLE TABLETS PO SCH (09:49)
[2021-05-11] MEDS: POLYETHYLENE GLYCOL (HEALTHYLAX) 3350 17 GM PACKET PO SCH ×3 (09:49→23:02)
[2021-05-11] MEDS: DOCUSATE SODIUM 100 MG CAPSULE (FP) PO SCH ×3 (09:50→22:59)
[2021-05-11] MEDS: PRAMIPEXOLE DIHYDROCHLORIDE 0.25 MG TABLET PO SCH ×2 (09:50→23:00)
[2021-05-11] MEDS: CARVEDILOL 3.125 MG TABLET (FP) PO SCH ×2 (09:50→23:00)
[2021-05-11] MEDS: GABAPENTIN 300 MG CAPSULE PO SCH ×4 (09:50→22:58)
[2021-05-11] MEDS: THIAMINE HCL 100 MG TABLET (FP) PO SCH (09:50)
[2021-05-11] MEDS: TOPIRAMATE 25 MG TABLET PO SCH (09:51)
[2021-05-11] MEDS: BUDESONIDE/FORMETEROL FUMARATE 80/4.5 mcg INHALER IH SCH ×2 (09:51→23:08)
[2021-05-11] MEDS: SENNOSIDES 8.6MG TABLET (FP) PO SCH ×2 (14:20→22:59)
[2021-05-11] MEDS: VANCOMYCIN 1 GRAM (PRE-DOCKED) 1,000 MG/250 ML BAG IVPB SCH (18:04)
[2021-05-11] MEDS ORDERED: FLU VACC QS2021-22(6MOS UP)/PF 60 MCG/0.5 ML SYRINGE IM ONE (19:00)
[2021-05-11] MEDS: ATORVASTATIN CA 40 MG TABLET (FP) PO SCH (22:59)
[2021-05-11] MEDS: QUEtiapine FUMARATE 25 MG TABLET PO SCH (23:00)
[2021-05-12] MEDS ORDERED: PT OWN MED DRAWER 7, Y5N ONE ×2 (00:05→22:25)
[2021-05-12] MEDS: NYSTATIN 500,000 UNITS/5 ML SUSPENSION PO SCH ×5 (00:41→23:24)
[2021-05-12] MEDS: oxyCODONE HCL 5 MG TABLET PO PRN ×3 (00:42→22:38)
[2021-05-12] MEDS: TOPIRAMATE 25 MG TABLET PO SCH ×3 (00:43→22:30)
[2021-05-12] MEDS ORDERED: MELATONIN 5 MG TABLETS PO ONE (01:16)
[2021-05-12] MEDS: busPIRone HCL 5 MG TABLET PO SCH ×3 (06:40→22:30)
[2021-05-12] MEDS: HEPARIN NA (PORCINE) 5,000 UNITS/ML 1ML VIAL SQ SCH ×3 (06:41→22:31)
[2021-05-12] MEDS: INSULIN SLIDING SCALE (NOVOLOG) 1 VIAL SQ SCH ×3 (06:45→16:56)
[2021-05-12] MEDS: INSULIN (LEVEMIR) 100 UNITS/ML UNITS SQ SCH ×2 (06:47→22:29)
[2021-05-12 07:27] LABS: BASO % 1.4 % (0-2.0); EOS % 4.3 % (0-4.5); HEMATOCRIT 38.9 % (32.4-45.2); LYMPH % 26.8 % (8-40); MCH 29.7 pg (25.7-33.7); MCHC 36.1 g/dl (32.0-36.0); MEAN CELL VOLUME 82.3 fl (80-96); MEAN PLT VOLUME 7.3 fl (7.5-11.1); MONO % 7.5 % (3.8-10.2); PLATELET COUNT 239 10^3/uL (134-434); RBC 4.72 M/mm3 (3.60-5.2); RDW 13.4 % (11.6-15.6); WHITE BLOOD COUNT 7.7 K/mm3 (4.0-10.0)
[2021-05-12 07:56] LABS: ALBUMIN 3.4 g/dl (3.4-5.0); BLOOD UREA NITROGEN 13.8 mg/dL (7-18); CALCIUM 9.4 mg/dL (8.5-10.1)
[2021-05-12 07:58] LABS: PHOSPHOROUS 4.7 mg/dL (2.5-4.9)
[2021-05-12 07:59] LABS: CREATININE 0.8 mg/dL (0.55-1.3); MAGNESIUM 2.1 mg/dL (1.8-2.4)
[2021-05-12 08:00] LABS: BILIRUBIN,TOTAL 1.1 mg/dL (0.2-1); TOT PROT 7.1 g/dl (6.4-8.2)
[2021-05-12] MEDS ORDERED: cefTRIAXone SODIUM 1 GM VIAL ONE (09:29)
[2021-05-12] MEDS ORDERED: INSULIN (NOVOLOG) ASPART 100 UNITS/ML 10ML VIAL ONE (09:29)
[2021-05-12] MEDS ORDERED: DEXTROSE 5%-WATER - 50 ML IVPB ONE (09:30)
[2021-05-12] MEDS: DULoxetine HCL 30 MG CAPSULE.DR PO SCH ×2 (09:36→22:30)
[2021-05-12] MEDS: CARVEDILOL 3.125 MG TABLET (FP) PO SCH ×2 (09:39→22:30)
[2021-05-12] MEDS: PRAMIPEXOLE DIHYDROCHLORIDE 0.25 MG TABLET PO SCH ×2 (09:39→22:30)
[2021-05-12] MEDS: THIAMINE HCL 100 MG TABLET (FP) PO SCH (09:39)
[2021-05-12] MEDS: TIZANIDINE HCL 4 MG TABLET PO PRN (09:39)
[2021-05-12] MEDS: ASPIRIN 81 MG CHEWABLE TABLETS PO SCH (09:39)
[2021-05-12] MEDS: clonazePAM 0.5 MG TABLET PO PRN (09:39)
[2021-05-12] MEDS: CEFTRIAXONE 1 GM in DEXTROSE 5%-WATER - 50 ML IVPB SCH (09:40)
[2021-05-12] MEDS: POLYETHYLENE GLYCOL (HEALTHYLAX) 3350 17 GM PACKET PO SCH ×2 (09:40→22:31)
[2021-05-12] MEDS: BUDESONIDE/FORMETEROL FUMARATE 80/4.5 mcg INHALER IH SCH ×2 (09:40→22:31)
[2021-05-12] MEDS: GABAPENTIN 300 MG CAPSULE PO SCH ×4 (09:40→22:30)
[2021-05-12] MEDS: DOCUSATE SODIUM 100 MG CAPSULE (FP) PO SCH ×2 (09:40→22:30)
[2021-05-12] MEDS: SENNOSIDES 8.6MG TABLET (FP) PO SCH ×2 (09:41→22:30)
[2021-05-12] MEDS ORDERED: oxyCODONE HCL 5 MG TABLET PO ONE (10:41)
[2021-05-12] MEDS: VANCOMYCIN 1 GRAM (PRE-DOCKED) 1,000 MG/250 ML BAG IVPB SCH (17:00)
[2021-05-12] MEDS: QUEtiapine FUMARATE 25 MG TABLET PO SCH (22:30)
[2021-05-12] MEDS: ATORVASTATIN CA 40 MG TABLET (FP) PO SCH (22:30)
[2021-05-12] MEDS: ZOLPIDEM TARTRATE 5 MG TABLET PO PRN (23:24)
[2021-05-13 06:33] LABS: BASO % 2.2 % (0-2.0); EOS % 3.9 % (0-4.5); HEMOGLOBIN 13.5 GM/dL (10.7-15.3); MCH 29.6 pg (25.7-33.7); MCHC 35.5 g/dl (32.0-36.0); MEAN CELL VOLUME 83.5 fl (80-96); MEAN PLT VOLUME 7.6 fl (7.5-11.1); MONO % 6.5 % (3.8-10.2); NEUT % 53.4 % (42.8-82.8); PLATELET COUNT 215 10^3/uL (134-434); RBC 4.56 M/mm3 (3.60-5.2); RDW 13.6 % (11.6-15.6); WHITE BLOOD COUNT 6.1 K/mm3 (4.0-10.0)
[2021-05-13] MEDS ORDERED: INSULIN (NOVOLOG) ASPART 100 UNITS/ML 10ML VIAL ONE (06:40)
[2021-05-13] MEDS: INSULIN (LEVEMIR) 100 UNITS/ML UNITS SQ SCH ×2 (06:46→21:46)
[2021-05-13] MEDS: NYSTATIN 500,000 UNITS/5 ML SUSPENSION PO SCH ×3 (06:46→17:02)
[2021-05-13] MEDS: busPIRone HCL 5 MG TABLET PO SCH ×3 (06:46→21:41)
[2021-05-13] MEDS: HEPARIN NA (PORCINE) 5,000 UNITS/ML 1ML VIAL SQ SCH ×3 (06:46→21:42)
[2021-05-13] MEDS: INSULIN SLIDING SCALE (NOVOLOG) 1 VIAL SQ SCH ×3 (06:46→17:03)
[2021-05-13 06:53] LABS: CALCIUM 8.9 mg/dL (8.5-10.1)
[2021-05-13 06:54] LABS: ALBUMIN 3.4 g/dl (3.4-5.0); BLOOD UREA NITROGEN 16.9 mg/dL (7-18); MAGNESIUM 1.9 mg/dL (1.8-2.4)
[2021-05-13 06:57] LABS: CREATININE 0.8 mg/dL (0.55-1.3); PHOSPHOROUS 4.4 mg/dL (2.5-4.9)
[2021-05-13 06:58] LABS: TOT PROT 6.9 g/dl (6.4-8.2)
[2021-05-13] MEDS ORDERED: PT OWN MED DRAWER 7, Y5N ONE ×2 (07:14→21:27)
[2021-05-13] MEDS: oxyCODONE HCL 5 MG TABLET PO PRN ×2 (07:15→12:33)
[2021-05-13] MEDS: PRAMIPEXOLE DIHYDROCHLORIDE 0.25 MG TABLET PO SCH ×2 (09:02→21:42)
[2021-05-13] MEDS: CARVEDILOL 3.125 MG TABLET (FP) PO SCH ×2 (09:02→22:00)
[2021-05-13] MEDS: DOCUSATE SODIUM 100 MG CAPSULE (FP) PO SCH ×2 (09:02→21:42)
[2021-05-13] MEDS: THIAMINE HCL 100 MG TABLET (FP) PO SCH (09:02)
[2021-05-13] MEDS: clonazePAM 0.5 MG TABLET PO PRN (09:02)
[2021-05-13] MEDS: TOPIRAMATE 25 MG TABLET PO SCH ×2 (09:02→21:41)
[2021-05-13] MEDS: POLYETHYLENE GLYCOL (HEALTHYLAX) 3350 17 GM PACKET PO SCH ×2 (09:02→21:45)
[2021-05-13] MEDS: DULoxetine HCL 30 MG CAPSULE.DR PO SCH ×2 (09:02→21:42)
[2021-05-13] MEDS: TIZANIDINE HCL 4 MG TABLET PO PRN (09:02)
[2021-05-13] MEDS: ASPIRIN 81 MG CHEWABLE TABLETS PO SCH (09:02)
[2021-05-13] MEDS: GABAPENTIN 300 MG CAPSULE PO SCH ×4 (09:02→21:42)
[2021-05-13] MEDS: BUDESONIDE/FORMETEROL FUMARATE 80/4.5 mcg INHALER IH SCH ×2 (09:03→21:48)
[2021-05-13] MEDS: SENNOSIDES 8.6MG TABLET (FP) PO SCH ×2 (09:03→21:42)
[2021-05-13 17:03] LABS: EPI CELLS 11 /uL (0-25.1); HYALINE CASTS 1 /uL (0-3.1); PH,URINE 6.5 (5.0-8.0); URINE APPEARANCE CLEAR; URINE BACTERIA 283 /uL (0-1359); URINE BILIRUBIN NEGATIVE (NEGATIVE); URINE COLOR YELLOW; URINE GLUCOSE (UA) 3+ (NEGATIVE); URINE KETONE NEGATIVE (NEGATIVE); URINE LEUK ESTERASE NEGATIVE (NEGATIVE); URINE NITRITE NEGATIVE (NEGATIVE); URINE PROTEIN NEGATIVE (NEGATIVE); URINE RBC 16 /uL (0-23.9); URINE UROBILINOGEN 0.2 mg/dL (0.2-1.0); URINE WBC 22 /uL (0-25.8)
[2021-05-13] MEDS: VANCOMYCIN 1 GRAM (PRE-DOCKED) 1,000 MG/250 ML BAG IVPB SCH (17:03)
[2021-05-13] MEDS: ATORVASTATIN CA 40 MG TABLET (FP) PO SCH (21:42)
[2021-05-13] MEDS: QUEtiapine FUMARATE 25 MG TABLET PO SCH (21:42)
[2021-05-14] MEDS: oxyCODONE HCL 5 MG TABLET PO PRN ×3 (01:44→18:26)
[2021-05-14] MEDS: NYSTATIN 500,000 UNITS/5 ML SUSPENSION PO SCH ×5 (01:44→23:00)
[2021-05-14] MEDS: ZOLPIDEM TARTRATE 5 MG TABLET PO PRN ×2 (01:49→22:55)
[2021-05-14] MEDS: busPIRone HCL 5 MG TABLET PO SCH ×3 (06:46→22:36)
[2021-05-14] MEDS: HEPARIN NA (PORCINE) 5,000 UNITS/ML 1ML VIAL SQ SCH ×3 (06:46→22:38)
[2021-05-14] MEDS: INSULIN SLIDING SCALE (NOVOLOG) 1 VIAL SQ SCH ×3 (06:48→16:39)
[2021-05-14] MEDS: INSULIN (LEVEMIR) 100 UNITS/ML UNITS SQ SCH ×2 (06:50→22:37)
[2021-05-14 06:58] LABS: ALBUMIN 3.6 g/dl (3.4-5.0); BLOOD UREA NITROGEN 17.8 mg/dL (7-18); CALCIUM 9.1 mg/dL (8.5-10.1)
[2021-05-14 07:00] LABS: MAGNESIUM 1.9 mg/dL (1.8-2.4)
[2021-05-14 07:02] LABS: CREATININE 0.7 mg/dL (0.55-1.3); PHOSPHOROUS 4.1 mg/dL (2.5-4.9)
[2021-05-14 07:03] LABS: BILIRUBIN,TOTAL 0.8 mg/dL (0.2-1)
[2021-05-14 08:08] LABS: BASO % 0.5 % (0-2.0); EOS % 3.8 % (0-4.5); HEMATOCRIT 39.1 % (32.4-45.2); HEMOGLOBIN 13.6 GM/dL (10.7-15.3); LYMPH % 31.2 % (8-40); MCH 29.3 pg (25.7-33.7); MCHC 34.8 g/dl (32.0-36.0); MEAN CELL VOLUME 84.2 fl (80-96); MEAN PLT VOLUME 8.9 fl (7.5-11.1); MONO % 6.1 % (3.8-10.2); NEUT % 58.4 % (42.8-82.8); PLATELET COUNT 213 10^3/uL (134-434); RBC 4.64 M/mm3 (3.60-5.2); RDW 13.3 % (11.6-15.6); WHITE BLOOD COUNT 6.2 K/mm3 (4.0-10.0)
[2021-05-14] MEDS: GABAPENTIN 300 MG CAPSULE PO SCH ×4 (09:02→22:36)
[2021-05-14] MEDS: THIAMINE HCL 100 MG TABLET (FP) PO SCH (09:02)
[2021-05-14] MEDS: CARVEDILOL 3.125 MG TABLET (FP) PO SCH ×2 (09:02→22:59)
[2021-05-14] MEDS: ASPIRIN 81 MG CHEWABLE TABLETS PO SCH (09:03)
[2021-05-14] MEDS: DULoxetine HCL 30 MG CAPSULE.DR PO SCH ×2 (09:03→22:35)
[2021-05-14] MEDS: POLYETHYLENE GLYCOL (HEALTHYLAX) 3350 17 GM PACKET PO SCH ×2 (09:04→22:37)
[2021-05-14] MEDS: DOCUSATE SODIUM 100 MG CAPSULE (FP) PO SCH ×2 (09:04→22:36)
[2021-05-14] MEDS: SENNOSIDES 8.6MG TABLET (FP) PO SCH (09:05)
[2021-05-14] MEDS: TOPIRAMATE 25 MG TABLET PO SCH ×2 (09:05→22:35)
[2021-05-14] MEDS: PRAMIPEXOLE DIHYDROCHLORIDE 0.25 MG TABLET PO SCH ×2 (09:05→22:36)
[2021-05-14] MEDS: BUDESONIDE/FORMETEROL FUMARATE 80/4.5 mcg INHALER IH SCH ×2 (09:11→22:58)
[2021-05-14] MEDS: NYSTATIN POWDER 100,000 UNITS/GM - 15 GM TOPICAL POWDER TP SCH (12:54)
[2021-05-14] MEDS: VANCOMYCIN 1 GRAM (PRE-DOCKED) 1,000 MG/250 ML BAG IVPB SCH (18:20)
[2021-05-14] MEDS ORDERED: PT OWN MED DRAWER 7, Y5N ONE (21:45)
[2021-05-14] MEDS ORDERED: INSULIN (NOVOLOG) ASPART 100 UNITS/ML 10ML VIAL ONE (22:33)
[2021-05-14] MEDS: QUEtiapine FUMARATE 25 MG TABLET PO SCH (22:35)
[2021-05-14] MEDS: ATORVASTATIN CA 40 MG TABLET (FP) PO SCH (22:36)
[2021-05-15] MEDS: oxyCODONE HCL 5 MG TABLET PO PRN ×3 (04:30→20:03)
[2021-05-15] MEDS: busPIRone HCL 5 MG TABLET PO SCH ×3 (05:47→22:34)
[2021-05-15] MEDS: NYSTATIN 500,000 UNITS/5 ML SUSPENSION PO SCH ×4 (05:47→23:09)
[2021-05-15] MEDS: HEPARIN NA (PORCINE) 5,000 UNITS/ML 1ML VIAL SQ SCH ×3 (05:47→22:33)
[2021-05-15] MEDS: INSULIN (LEVEMIR) 100 UNITS/ML UNITS SQ SCH ×2 (06:06→22:46)
[2021-05-15] MEDS: INSULIN SLIDING SCALE (NOVOLOG) 1 VIAL SQ SCH ×3 (06:06→17:10)
[2021-05-15 07:50] LABS: BASO % 1.6 % (0-2.0); EOS % 3.4 % (0-4.5); HEMATOCRIT 37.8 % (32.4-45.2); HEMOGLOBIN 13.6 GM/dL (10.7-15.3); LYMPH % 28.2 % (8-40); MCH 29.7 pg (25.7-33.7); MCHC 36.1 g/dl (32.0-36.0); MEAN CELL VOLUME 82.4 fl (80-96); MEAN PLT VOLUME 8.1 fl (7.5-11.1); MONO % 5.4 % (3.8-10.2); NEUT % 61.4 % (42.8-82.8); PLATELET COUNT 216 10^3/uL (134-434); RBC 4.59 M/mm3 (3.60-5.2); RDW 13.5 % (11.6-15.6); WHITE BLOOD COUNT 7.1 K/mm3 (4.0-10.0)
[2021-05-15 08:18] LABS: ALBUMIN 3.7 g/dl (3.4-5.0); BLOOD UREA NITROGEN 19.7 mg/dL (7-18); CALCIUM 9.5 mg/dL (8.5-10.1); MAGNESIUM 1.9 mg/dL (1.8-2.4)
[2021-05-15 08:22] LABS: BILIRUBIN,TOTAL 1.2 mg/dL (0.2-1); PHOSPHOROUS 4.9 mg/dL (2.5-4.9); TOT PROT 7.2 g/dl (6.4-8.2)
[2021-05-15 08:23] LABS: CREATININE 0.8 mg/dL (0.55-1.3)
[2021-05-15] MEDS ORDERED: PT OWN MED DRAWER 7, Y5N ONE ×3 (10:10→21:55)
[2021-05-15] MEDS: GABAPENTIN 300 MG CAPSULE PO SCH ×4 (10:14→22:33)
[2021-05-15] MEDS: CARVEDILOL 3.125 MG TABLET (FP) PO SCH ×2 (10:15→22:34)
[2021-05-15] MEDS: THIAMINE HCL 100 MG TABLET (FP) PO SCH (10:15)
[2021-05-15] MEDS: ASPIRIN 81 MG CHEWABLE TABLETS PO SCH (10:15)
[2021-05-15] MEDS: DOCUSATE SODIUM 100 MG CAPSULE (FP) PO SCH ×2 (10:16→21:56)
[2021-05-15] MEDS: DULoxetine HCL 30 MG CAPSULE.DR PO SCH ×2 (10:16→22:34)
[2021-05-15] MEDS: NYSTATIN POWDER 100,000 UNITS/GM - 15 GM TOPICAL POWDER TP SCH (10:17)
[2021-05-15] MEDS: POLYETHYLENE GLYCOL (HEALTHYLAX) 3350 17 GM PACKET PO SCH ×2 (10:17→21:57)
[2021-05-15] MEDS: BUDESONIDE/FORMETEROL FUMARATE 80/4.5 mcg INHALER IH SCH ×2 (10:17→22:34)
[2021-05-15] MEDS: PRAMIPEXOLE DIHYDROCHLORIDE 0.25 MG TABLET PO SCH ×2 (10:17→22:34)
[2021-05-15] MEDS: TOPIRAMATE 25 MG TABLET PO SCH ×2 (10:18→22:37)
[2021-05-15] MEDS: clonazePAM 0.5 MG TABLET PO PRN (14:08)
[2021-05-15] MEDS: TIZANIDINE HCL 4 MG TABLET PO PRN (17:19)
[2021-05-15] MEDS: VANCOMYCIN 1 GRAM (PRE-DOCKED) 1,000 MG/250 ML BAG IVPB SCH (17:20)
[2021-05-15] MEDS: ZOLPIDEM TARTRATE 5 MG TABLET PO PRN (22:34)
[2021-05-15] MEDS: QUEtiapine FUMARATE 25 MG TABLET PO SCH (22:34)
[2021-05-15] MEDS: ATORVASTATIN CA 40 MG TABLET (FP) PO SCH (22:34)
[2021-05-15] MEDS ORDERED: INSULIN (NOVOLOG) ASPART 100 UNITS/ML 10ML VIAL ONE (22:38)
[2021-05-16] MEDS: busPIRone HCL 5 MG TABLET PO SCH ×3 (06:18→21:12)
[2021-05-16] MEDS: HEPARIN NA (PORCINE) 5,000 UNITS/ML 1ML VIAL SQ SCH ×3 (06:18→21:16)
[2021-05-16] MEDS: NYSTATIN 500,000 UNITS/5 ML SUSPENSION PO SCH ×3 (06:18→17:09)
[2021-05-16] MEDS: INSULIN (LEVEMIR) 100 UNITS/ML UNITS SQ SCH ×2 (06:20→21:15)
[2021-05-16] MEDS: INSULIN SLIDING SCALE (NOVOLOG) 1 VIAL SQ SCH ×3 (06:25→17:09)
[2021-05-16] MEDS: oxyCODONE HCL 5 MG TABLET PO PRN ×3 (06:25→21:12)
[2021-05-16 09:07] LABS: BASO % 0.8 % (0-2.0); EOS % 3.6 % (0-4.5); HEMATOCRIT 39.3 % (32.4-45.2); HEMOGLOBIN 13.8 GM/dL (10.7-15.3); LYMPH % 28.4 % (8-40); MCH 29.6 pg (25.7-33.7); MEAN CELL VOLUME 84.5 fl (80-96); MEAN PLT VOLUME 8.5 fl (7.5-11.1); NEUT % 61.2 % (42.8-82.8); PLATELET COUNT 250 10^3/uL (134-434); RBC 4.65 M/mm3 (3.60-5.2); RDW 13.7 % (11.6-15.6)
[2021-05-16 09:27] LABS: ALBUMIN 3.8 g/dl (3.4-5.0); BLOOD UREA NITROGEN 20.9 mg/dL (7-18); MAGNESIUM 2.1 mg/dL (1.8-2.4)
[2021-05-16 09:30] LABS: CREATININE 0.8 mg/dL (0.55-1.3); PHOSPHOROUS 3.4 mg/dL (2.5-4.9)
[2021-05-16 09:32] LABS: BILIRUBIN,TOTAL 0.6 mg/dL (0.2-1); TOT PROT 7.5 g/dl (6.4-8.2)
[2021-05-16] MEDS ORDERED: INSULIN (NOVOLOG) ASPART 100 UNITS/ML 10ML VIAL ONE (09:58)
[2021-05-16] MEDS: ONDANSETRON 4 MG/2 ML VIAL IVPUSH PRN (10:24)
[2021-05-16] MEDS: TIZANIDINE HCL 4 MG TABLET PO PRN (10:24)
[2021-05-16] MEDS: CARVEDILOL 3.125 MG TABLET (FP) PO SCH ×2 (10:24→21:15)
[2021-05-16] MEDS: GABAPENTIN 300 MG CAPSULE PO SCH ×4 (10:24→21:14)
[2021-05-16] MEDS: DULoxetine HCL 30 MG CAPSULE.DR PO SCH ×2 (10:24→21:13)
[2021-05-16] MEDS: ASPIRIN 81 MG CHEWABLE TABLETS PO SCH (10:24)
[2021-05-16] MEDS: PRAMIPEXOLE DIHYDROCHLORIDE 0.25 MG TABLET PO SCH ×2 (10:24→21:14)
[2021-05-16] MEDS: THIAMINE HCL 100 MG TABLET (FP) PO SCH (10:24)
[2021-05-16] MEDS: TOPIRAMATE 25 MG TABLET PO SCH ×2 (10:24→21:14)
[2021-05-16] MEDS: POLYETHYLENE GLYCOL (HEALTHYLAX) 3350 17 GM PACKET PO SCH ×2 (10:25→21:20)
[2021-05-16] MEDS: DOCUSATE SODIUM 100 MG CAPSULE (FP) PO SCH ×2 (10:25→21:20)
[2021-05-16] MEDS: BUDESONIDE/FORMETEROL FUMARATE 80/4.5 mcg INHALER IH SCH ×2 (10:25→22:22)
[2021-05-16] MEDS: NYSTATIN POWDER 100,000 UNITS/GM - 15 GM TOPICAL POWDER TP SCH (10:25)
[2021-05-16] MEDS: ALBUTEROL SO4 0.083% IH SOL 2.5 MG/3 ML VIAL.NEB. NEB SCH ×2 (16:50→20:18)
[2021-05-16] MEDS: VANCOMYCIN 1 GRAM (PRE-DOCKED) 1,000 MG/250 ML BAG IVPB SCH (18:16)
[2021-05-16] MEDS: QUEtiapine FUMARATE 25 MG TABLET PO SCH (21:14)
[2021-05-16] MEDS: ATORVASTATIN CA 40 MG TABLET (FP) PO SCH (21:14)
[2021-05-16] MEDS: ZOLPIDEM TARTRATE 5 MG TABLET PO PRN (22:22)
[2021-05-17] MEDS: ALBUTEROL SO4 0.083% IH SOL 2.5 MG/3 ML VIAL.NEB. NEB SCH ×3 (00:10→20:22)
[2021-05-17] MEDS: NYSTATIN 500,000 UNITS/5 ML SUSPENSION PO SCH ×5 (01:11→23:13)
[2021-05-17] MEDS: busPIRone HCL 5 MG TABLET PO SCH ×3 (06:14→21:13)
[2021-05-17] MEDS: HEPARIN NA (PORCINE) 5,000 UNITS/ML 1ML VIAL SQ SCH ×3 (06:15→21:14)
[2021-05-17] MEDS: INSULIN (LEVEMIR) 100 UNITS/ML UNITS SQ SCH ×2 (06:20→21:15)
[2021-05-17] MEDS: INSULIN SLIDING SCALE (NOVOLOG) 1 VIAL SQ SCH ×3 (06:20→16:48)
[2021-05-17] MEDS: oxyCODONE HCL 5 MG TABLET PO PRN ×3 (06:24→20:21)
[2021-05-17 09:03] LABS: BASO % 0.8 % (0-2.0); EOS % 2.9 % (0-4.5); HEMATOCRIT 36.9 % (32.4-45.2); HEMOGLOBIN 12.9 GM/dL (10.7-15.3); LYMPH % 31.5 % (8-40); MCH 29.6 pg (25.7-33.7); MCHC 34.9 g/dl (32.0-36.0); MEAN CELL VOLUME 84.9 fl (80-96); MEAN PLT VOLUME 9.1 fl (7.5-11.1); MONO % 6.1 % (3.8-10.2); NEUT % 58.7 % (42.8-82.8); PLATELET COUNT 246 10^3/uL (134-434); RBC 4.35 M/mm3 (3.60-5.2); RDW 13.6 % (11.6-15.6); WHITE BLOOD COUNT 6.6 K/mm3 (4.0-10.0)
[2021-05-17] MEDS: ASPIRIN 81 MG CHEWABLE TABLETS PO SCH (09:26)
[2021-05-17] MEDS: THIAMINE HCL 100 MG TABLET (FP) PO SCH (09:26)
[2021-05-17] MEDS: CARVEDILOL 3.125 MG TABLET (FP) PO SCH ×2 (09:26→21:14)
[2021-05-17] MEDS: ONDANSETRON 4 MG/2 ML VIAL IVPUSH PRN (09:26)
[2021-05-17] MEDS: GABAPENTIN 300 MG CAPSULE PO SCH ×4 (09:26→21:13)
[2021-05-17] MEDS: DULoxetine HCL 30 MG CAPSULE.DR PO SCH ×2 (09:26→21:14)
[2021-05-17] MEDS: PRAMIPEXOLE DIHYDROCHLORIDE 0.25 MG TABLET PO SCH ×2 (09:26→21:13)
[2021-05-17] MEDS: TOPIRAMATE 25 MG TABLET PO SCH ×2 (09:26→21:14)
[2021-05-17] MEDS: BUDESONIDE/FORMETEROL FUMARATE 80/4.5 mcg INHALER IH SCH ×2 (09:27→21:17)
[2021-05-17] MEDS: DOCUSATE SODIUM 100 MG CAPSULE (FP) PO SCH ×2 (09:27→21:17)
[2021-05-17] MEDS: POLYETHYLENE GLYCOL (HEALTHYLAX) 3350 17 GM PACKET PO SCH ×2 (09:27→21:15)
[2021-05-17] MEDS: NYSTATIN POWDER 100,000 UNITS/GM - 15 GM TOPICAL POWDER TP SCH (09:27)
[2021-05-17] MEDS: TIZANIDINE HCL 4 MG TABLET PO PRN (09:28)
[2021-05-17 09:34] LABS: BLOOD UREA NITROGEN 18.3 mg/dL (7-18); CALCIUM 8.8 mg/dL (8.5-10.1)
[2021-05-17 09:35] LABS: ALBUMIN 3.4 g/dl (3.4-5.0)
[2021-05-17 09:37] LABS: CREATININE 0.7 mg/dL (0.55-1.3)
[2021-05-17 09:38] LABS: BILIRUBIN,TOTAL 0.5 mg/dL (0.2-1); TOT PROT 6.7 g/dl (6.4-8.2)
[2021-05-17] MEDS: clonazePAM 0.5 MG TABLET PO PRN ×2 (12:06→22:41)
[2021-05-17] MEDS: VANCOMYCIN 1 GRAM (PRE-DOCKED) 1,000 MG/250 ML BAG IVPB SCH (17:28)
[2021-05-17] MEDS: ATORVASTATIN CA 40 MG TABLET (FP) PO SCH (21:14)
[2021-05-17] MEDS: QUEtiapine FUMARATE 25 MG TABLET PO SCH (21:14)
[2021-05-17] MEDS: ZOLPIDEM TARTRATE 5 MG TABLET PO PRN (22:42)
[2021-05-18] MEDS: ALBUTEROL SO4 0.083% IH SOL 2.5 MG/3 ML VIAL.NEB. NEB SCH ×5 (00:18→15:46)
[2021-05-18] MEDS: oxyCODONE HCL 5 MG TABLET PO PRN ×3 (04:15→16:58)
[2021-05-18] MEDS: NYSTATIN 500,000 UNITS/5 ML SUSPENSION PO SCH ×2 (05:32→13:56)
[2021-05-18] MEDS: HEPARIN NA (PORCINE) 5,000 UNITS/ML 1ML VIAL SQ SCH ×2 (05:32→13:56)
[2021-05-18] MEDS: busPIRone HCL 5 MG TABLET PO SCH ×2 (05:32→13:56)
[2021-05-18] MEDS: INSULIN (LEVEMIR) 100 UNITS/ML UNITS SQ SCH (06:03)
[2021-05-18] MEDS: INSULIN SLIDING SCALE (NOVOLOG) 1 VIAL SQ SCH ×3 (06:03→17:16)
[2021-05-18] MEDS: clonazePAM 0.5 MG TABLET PO PRN (06:47)
[2021-05-18 08:11] LABS: HEMATOCRIT 35.3 % (32.4-45.2); HEMOGLOBIN 12.7 GM/dL (10.7-15.3); MCH 29.6 pg (25.7-33.7); MCHC 35.9 g/dl (32.0-36.0); MEAN CELL VOLUME 82.4 fl (80-96); MEAN PLT VOLUME 8.5 fl (7.5-11.1); PLATELET COUNT 254 10^3/uL (134-434); RBC 4.28 M/mm3 (3.60-5.2); RDW 13.6 % (11.6-15.6); WHITE BLOOD COUNT 6.7 K/mm3 (4.0-10.0)
[2021-05-18 08:33] LABS: BLOOD UREA NITROGEN 15.9 mg/dL (7-18)
[2021-05-18 08:36] LABS: CREATININE 0.7 mg/dL (0.55-1.3)
[2021-05-18] MEDS ORDERED: PT OWN MED DRAWER 7, Y5N ONE (09:44)
[2021-05-18 09:50] VITALS: PULSE 70
[2021-05-18] MEDS: POLYETHYLENE GLYCOL (HEALTHYLAX) 3350 17 GM PACKET PO SCH ×2 (09:53→10:03)
[2021-05-18] MEDS: TOPIRAMATE 25 MG TABLET PO SCH (09:53)
[2021-05-18] MEDS: THIAMINE HCL 100 MG TABLET (FP) PO SCH (09:54)
[2021-05-18] MEDS: ASPIRIN 81 MG CHEWABLE TABLETS PO SCH (09:54)
[2021-05-18] MEDS: CARVEDILOL 3.125 MG TABLET (FP) PO SCH (09:54)
[2021-05-18] MEDS: DULoxetine HCL 30 MG CAPSULE.DR PO SCH (09:55)
[2021-05-18] MEDS: DOCUSATE SODIUM 100 MG CAPSULE (FP) PO SCH ×2 (09:55→10:02)
[2021-05-18] MEDS: PRAMIPEXOLE DIHYDROCHLORIDE 0.25 MG TABLET PO SCH (09:55)
[2021-05-18] MEDS: GABAPENTIN 300 MG CAPSULE PO SCH ×2 (09:55→13:56)
[2021-05-18] MEDS: BUDESONIDE/FORMETEROL FUMARATE 80/4.5 mcg INHALER IH SCH (09:57)
[2021-05-18] MEDS: NYSTATIN POWDER 100,000 UNITS/GM - 15 GM TOPICAL POWDER TP SCH (10:02)
[2021-05-18 14:41] VITALS: BP 118/73; TEMP 98.2
== END 2021-05-18 17:48 | disposition home or self-care (01) | DRG 177 ==
LOC: JER 17:44 → JERBED 21:13 → J7W 05-07 14:33
PROVIDERS: ADMIT Internal Medicine; ATTEND Internal Medicine
DX: J15.211 Pneumonia due to Methicillin susceptible Staphylococcus aureus (principal); J96.01 Acute respiratory failure with hypoxia; N39.0 Urinary tract infection, site not specified; I50.22 Chronic systolic (congestive) heart failure; I11.0 Hypertensive heart disease with heart failure; I25.10 Atherosclerotic heart disease of native coronary artery without angina pectoris; I25.5 Ischemic cardiomyopathy; K59.00 Constipation, unspecified; K57.90 Diverticulosis of intestine, part unspecified, without perforation or abscess without bleeding; K64.8 Other hemorrhoids; F41.8 Other specified anxiety disorders; M54.9 Dorsalgia, unspecified; J44.9 Chronic obstructive pulmonary disease, unspecified; D64.9 Anemia, unspecified; M54.50 Low back pain, unspecified; B96.20 Unspecified Escherichia coli [E. coli] as the cause of diseases classified elsewhere; K76.0 Fatty (change of) liver, not elsewhere classified; M51.37 Other intervertebral disc degeneration, lumbosacral region; E11.9 Type 2 diabetes mellitus without complications; B37.9 Candidiasis, unspecified; R63.0 Anorexia; Z68.25 Body mass index [BMI] 25.0-25.9, adult; Z95.5 Presence of coronary angioplasty implant and graft; Z95.0 Presence of cardiac pacemaker
CPT/HCPCS: 36415; 71045-TC-FY; 71275-TC; 74018-TC-FY; 74019-TC-FY; 74177-TC; 76705-TC; 80048; 80053; 81003; 82248; 82550; 82728; 82962; 83036; 83605; 83615; 83690; 83735; 84100; 84484; 85025; 85027; 85379; 85610; 85730; 86140; 86738; 87040; 87070; 87086; 87186; 87205; 87804; 87899; 90686; 93005; 93010; 94640; 97116-GP; 97161-GP; 99285-25; C9803; G0008; G0480; J0131; J1644; Q9967; U0003; U0005

== ENCOUNTER 2021-06-11 14:47 | Inpatient (IN) | payer OTHER ==
[2021-06-11 17:29] LABS: VENOUS BASE EXCESS -0.4 mmol/L (-2-2); VENOUS O2 SATURATION 26.8 % (70-80); VENOUS PCO2 69.9 mmHg (38-52); VENOUS PH 7.235 (7.310-7.410)
[2021-06-11 17:32] LABS: BASO % 0.2 % (0-2.0); EOS % 4.6 % (0-4.5); HEMATOCRIT 39.3 % (32.4-45.2); HEMOGLOBIN 13.3 GM/dL (10.7-15.3); LYMPH % 25.4 % (8-40); MCH 29.3 pg (25.7-33.7); MCHC 33.9 g/dl (32.0-36.0); MEAN CELL VOLUME 86.6 fl (80-96); MEAN PLT VOLUME 7.2 fl (7.5-11.1); MONO % 5.2 % (3.8-10.2); NEUT % 64.6 % (42.8-82.8); PLATELET COUNT 184 10^3/uL (134-434); RBC 4.54 M/mm3 (3.60-5.2); WHITE BLOOD COUNT 5.6 K/mm3 (4.0-10.0)
[2021-06-11] MEDS ORDERED: SODIUM CHLORIDE 0.9% 500 ML INFUS.BAG IV ONE (17:33)
[2021-06-11] MEDS ORDERED: LACTATED RINGERS SOLUTION 1000 ML INFUS.BAG IV ONE (17:33)
[2021-06-11] MEDS ORDERED: methylPREDNISolone NA SUCC 125 MG/2 ML VIAL IVPUSH ONE (17:51)
[2021-06-11 17:54] LABS: CHLORIDE 95 mmol/L (98-107); SODIUM 133 mmol/L (136-145)
[2021-06-11 17:56] LABS: ANION GAP 9 MMOL/L (8-16); BLOOD UREA NITROGEN 9.5 mg/dL (7-18); CALCIUM 9.2 mg/dL (8.5-10.1); CO2 29 mmol/L (21-32)
[2021-06-11 17:57] LABS: ALBUMIN 3.9 g/dl (3.4-5.0); MAGNESIUM 2.3 mg/dL (1.8-2.4)
[2021-06-11 17:59] LABS: CREATININE 1.2 mg/dL (0.55-1.3)
[2021-06-11 18:00] LABS: SGOT/AST 8 U/L (15-37); SGPT/ALT 25 U/L (13-61)
[2021-06-11] MEDS ORDERED: CEFEPIME HCL/D5W 2 GM/50 ML BAG IVPB ONE (18:00)
[2021-06-11] MEDS ORDERED: VANCOMYCIN 1 GM in D5W (PRE-DOCKED) 1,000 MG/250 ML IVPB ONE (18:00)
[2021-06-11 18:01] LABS: BILIRUBIN,TOTAL 0.7 mg/dL (0.2-1); TOT PROT 7.6 g/dl (6.4-8.2)
[2021-06-11 18:02] LABS: ALK PHOS 124 U/L (45-117)
[2021-06-11] MEDS: ALBUTEROL SO4 2.5/IPRATROPIUM 0.5 INH SOL 3 ML VIAL.NEB. NEB SCH ×4 (18:04→19:10)
[2021-06-11] MEDS ORDERED: methylPREDNISolone NA SUCC 125 MG/2 ML VIAL ONE (18:06)
[2021-06-11 18:12] LABS: GLUCOSE,RANDOM 654 mg/dL (74-106)
[2021-06-11] MEDS ORDERED: VANCOMYCIN 1 GRAM (PRE-DOCKED) 1,000 MG/250 ML BAG IVPB ONE (18:20)
[2021-06-11] MEDS ORDERED: CEFEPIME 2 GM/100 ML BAG IVPB ONE (18:21)
[2021-06-11 20:01] LABS: ARTERIAL BLD GAS O2 SATURATION 93.4 % (95-98); ARTERIAL BLOOD GAS BASE EXCESS -2.8 mmol/L (-2-2); ARTERIAL BLOOD GAS PO2 74.6 mmHg (80-100); ARTERIAL BLOOD GAS pH 7.295 (7.350-7.450)
[2021-06-11 20:03] LABS: VENT MODE BIPAP
[2021-06-11 20:07] LABS: VENT RATE 10
[2021-06-11 20:52] LABS: COCAINE, UR NEGATIVE (NEGATIVE); METHADONE, UR NEGATIVE (NEGATIVE); OPIATES, URI NEGATIVE (NEGATIVE); URINE AMPHETAMINES NEGATIVE (NEGATIVE)
[2021-06-11 20:53] LABS: PHENCYCLIDINE,URINE NEGATIVE (NEGATIVE); URINE BARBITURATES NEGATIVE (NEGATIVE)
[2021-06-11 20:56] LABS: URINE APPEARANCE CLEAR; URINE BILIRUBIN NEGATIVE (NEGATIVE); URINE COLOR YELLOW; URINE GLUCOSE (UA) 3+ (NEGATIVE); URINE KETONE NEGATIVE (NEGATIVE); URINE LEUK ESTERASE NEGATIVE (NEGATIVE); URINE NITRITE NEGATIVE (NEGATIVE); URINE PROTEIN NEGATIVE (NEGATIVE); URINE UROBILINOGEN 0.2 mg/dL (0.2-1.0)
[2021-06-11 21:01] LABS: URINE BENZODIAZEPINES POSITIVE (NEGATIVE)
[2021-06-12] MEDS ORDERED: Insulin (LOG) Aspart 100 UNITS/ML VIAL SQ ONE (00:09)
[2021-06-12] MEDS ORDERED: PIPERACILLIN/TAZOB 3.375 GM 3.375 GM/50 ML BAG IVPB ONE ×3 (02:47→19:41)
[2021-06-12] MEDS ORDERED: oxyCODONE HCL 5 MG TABLET PO PRN (02:48)
[2021-06-12] MEDS: PIPERACILLIN/TAZOB 3.375 GM 3.375 GM in DEXTROSE 5%-WATER - 50 ML IVPB SCH ×3 (02:52→21:21)
[2021-06-12] MEDS ORDERED: PIPERACILLIN/TAZOB 3.375 GM 3.375 GM in DEXTROSE 5%-WATER - 50 ML IVPB SCH (03:00)
[2021-06-12] MEDS ORDERED: HEPARIN NA (PORCINE) 5,000 UNITS/ML 1ML VIAL ONE ×2 (06:02→16:43)
[2021-06-12] MEDS: HEPARIN NA (PORCINE) 5,000 UNITS/ML 1ML VIAL SQ SCH ×2 (06:05→17:02)
[2021-06-12] MEDS ORDERED: Insulin (LOG) Aspart 100 UNITS/ML VIAL SQ SCH (07:00)
[2021-06-12] MEDS: INSULIN (LEVEMIR) 100 UNITS/ML UNITS SQ SCH (07:55)
[2021-06-12] MEDS: INSULIN SLIDING SCALE (NOVOLOG) 1 VIAL SQ SCH ×3 (07:55→17:20)
[2021-06-12] MEDS ORDERED: INSULIN (LEVEMIR) 100 UNITS/ML UNITS SQ ONE (08:07)
[2021-06-12 09:04] LABS: BASO % 0.1 % (0-2.0); HEMATOCRIT 35.3 % (32.4-45.2); HEMOGLOBIN 12.3 GM/dL (10.7-15.3); LYMPH % 7.5 % (8-40); MCH 30.1 pg (25.7-33.7); MEAN PLT VOLUME 7.3 fl (7.5-11.1); MONO % 1.9 % (3.8-10.2); NEUT % 90.5 % (42.8-82.8); PLATELET COUNT 184 10^3/uL (134-434); RDW 13.7 % (11.6-15.6); WHITE BLOOD COUNT 9.7 K/mm3 (4.0-10.0)
[2021-06-12 09:34] LABS: CALCIUM 8.9 mg/dL (8.5-10.1)
[2021-06-12 09:35] LABS: ALBUMIN 3.4 g/dl (3.4-5.0); BLOOD UREA NITROGEN 11.6 mg/dL (7-18)
[2021-06-12 09:38] LABS: CREATININE 0.8 mg/dL (0.55-1.3); PHOSPHOROUS 3.6 mg/dL (2.5-4.9)
[2021-06-12 09:40] LABS: BILIRUBIN,TOTAL 0.9 mg/dL (0.2-1); TOT PROT 6.9 g/dl (6.4-8.2)
[2021-06-12] MEDS: LORazepam 2 MG/ML SDV VIAL IVPUSH ONE ×2 (10:18→10:30)
[2021-06-12] MEDS: PRAMIPEXOLE DIHYDROCHLORIDE 0.25 MG TABLET PO SCH (15:55)
[2021-06-12] MEDS ORDERED: ACETAMINOPHEN 325 MG TABLET (FP) ONE (17:51)
[2021-06-12] MEDS: ACETAMINOPHEN 325 MG TABLET (FP) PO PRN (17:53)
[2021-06-12] MEDS ORDERED: VANCOMYCIN 750 MG PREMIX BAG (RESTRICTED TO ID ONLY) IVPB SCH (18:00)
[2021-06-12] MEDS ORDERED: VANCOMYCIN/WATER FOR INJ (PEG) 750 MG/150 ML BAG IVPB ONE (18:00)
[2021-06-12] MEDS: GABAPENTIN 300 MG CAPSULE PO SCH (21:21)
[2021-06-13] MEDS ORDERED: clonazePAM 0.5 MG TABLET ONE ×4 (00:37→22:59)
[2021-06-13] MEDS ORDERED: DULoxetine HCL 30 MG CAPSULE.DR PO ONE ×3 (00:37→23:00)
[2021-06-13] MEDS ORDERED: CARVEDILOL 3.125 MG TABLET (FP) ONE ×2 (00:37→22:59)
[2021-06-13] MEDS ORDERED: ATORVASTATIN CA 40 MG TABLET (FP) ONE ×2 (00:37→22:59)
[2021-06-13] MEDS ORDERED: HEPARIN NA (PORCINE) 5,000 UNITS/ML 1ML VIAL ONE ×4 (00:38→23:00)
[2021-06-13] MEDS: CARVEDILOL 3.125 MG TABLET (FP) PO SCH ×2 (00:49→09:56)
[2021-06-13] MEDS: DULoxetine HCL 30 MG CAPSULE.DR PO SCH ×2 (00:49→09:56)
[2021-06-13] MEDS: HEPARIN NA (PORCINE) 5,000 UNITS/ML 1ML VIAL SQ SCH ×3 (00:49→15:43)
[2021-06-13] MEDS: ATORVASTATIN CA 40 MG TABLET (FP) PO SCH (00:50)
[2021-06-13] MEDS: INSULIN (LEVEMIR) 100 UNITS/ML UNITS SQ SCH ×2 (00:50→09:55)
[2021-06-13] MEDS: INSULIN SLIDING SCALE (NOVOLOG) 1 VIAL SQ SCH ×4 (00:50→19:26)
[2021-06-13] MEDS: GABAPENTIN 300 MG CAPSULE PO SCH ×3 (00:50→15:40)
[2021-06-13] MEDS: clonazePAM 0.5 MG TABLET PO SCH ×3 (00:50→15:40)
[2021-06-13] MEDS: PRAMIPEXOLE DIHYDROCHLORIDE 0.25 MG TABLET PO SCH ×2 (00:50→11:46)
[2021-06-13] MEDS ORDERED: QUEtiapine FUMARATE 25 MG TABLET ONE ×3 (00:51→22:59)
[2021-06-13] MEDS: QUEtiapine FUMARATE 25 MG TABLET PO SCH ×2 (00:54→08:05)
[2021-06-13] MEDS ORDERED: ACETAMINOPHEN 325 MG TABLET (FP) PO ONE (04:31)
[2021-06-13] MEDS ORDERED: ACETAMINOPHEN 325 MG TABLET (FP) ONE (05:05)
[2021-06-13] MEDS ORDERED: morphine SULFATE 4 MG/ML VIAL IVPUSH ONE (06:12)
[2021-06-13] MEDS ORDERED: morphine SULFATE 4 MG/ML VIAL ONE (06:17)
[2021-06-13] MEDS: LIDOCAINE 5% TOPICAL PATCH TP SCH ×2 (06:29→11:45)
[2021-06-13] MEDS ORDERED: oxyCODONE HCL 5 MG TABLET PO ONE (09:03)
[2021-06-13] MEDS ORDERED: oxyCODONE HCL 5 MG TABLET ONE (09:38)
[2021-06-13] MEDS ORDERED: PT OWN MED DRAWER 7, Y5N ONE ×2 (09:38→15:24)
[2021-06-13] MEDS ORDERED: CEFTRIAXONE 1 GM/50 ML BAG ONE (09:38)
[2021-06-13 09:39] LABS: HEMOGLOBIN 12.7 GM/dL (10.7-15.3); MCH 30.1 pg (25.7-33.7); MCHC 35.4 g/dl (32.0-36.0); MEAN PLT VOLUME 6.8 fl (7.5-11.1); PLATELET COUNT 210 10^3/uL (134-434); RBC 4.23 M/mm3 (3.60-5.2); RDW 13.8 % (11.6-15.6); WHITE BLOOD COUNT 6.3 K/mm3 (4.0-10.0)
[2021-06-13] MEDS: CEFTRIAXONE 1 GM in DEXTROSE 5%-WATER - 50 ML IVPB SCH (09:56)
[2021-06-13 10:28] LABS: ALBUMIN 3.5 g/dl (3.4-5.0); CALCIUM 8.5 mg/dL (8.5-10.1)
[2021-06-13 10:29] LABS: BLOOD UREA NITROGEN 15.6 mg/dL (7-18)
[2021-06-13 10:30] LABS: MAGNESIUM 1.9 mg/dL (1.8-2.4)
[2021-06-13 10:31] LABS: CREATININE 0.8 mg/dL (0.55-1.3); PHOSPHOROUS 2.6 mg/dL (2.5-4.9)
[2021-06-13 10:32] LABS: BILIRUBIN,TOTAL 0.8 mg/dL (0.2-1)
[2021-06-13] MEDS ORDERED: POTASSIUM CHLORIDE TABS 20 MEQ TABLET.ER (FP) PO ONE ×2 (14:05→15:24)
[2021-06-13] MEDS ORDERED: ASPIRIN COATED 81 MG TABLET.EC ONE (15:23)
[2021-06-13] MEDS ORDERED: VANCOMYCIN 1 GRAM (PRE-DOCKED) 1,000 MG/250 ML BAG IVPB ONE (15:25)
[2021-06-13] MEDS: VANCOMYCIN 1 GRAM (PRE-DOCKED) 1,000 MG/250 ML BAG IVPB SCH (15:39)
[2021-06-13] MEDS: ASPIRIN 81 MG CHEWABLE TABLETS PO SCH (15:40)
[2021-06-13] MEDS ORDERED: GABAPENTIN 100 MG CAPSULE ONE (22:59)
[2021-06-14] MEDS ORDERED: oxyCODONE HCL 5 MG TABLET ONE ×2 (00:16→09:59)
[2021-06-14] MEDS: oxyCODONE HCL 5 MG TABLET PO PRN ×3 (00:27→20:15)
[2021-06-14] MEDS: INSULIN SLIDING SCALE (NOVOLOG) 1 VIAL SQ SCH ×5 (00:28→23:36)
[2021-06-14] MEDS: PRAMIPEXOLE DIHYDROCHLORIDE 0.25 MG TABLET PO SCH ×3 (00:28→23:10)
[2021-06-14] MEDS: ATORVASTATIN CA 40 MG TABLET (FP) PO SCH ×2 (00:28→23:09)
[2021-06-14] MEDS: DULoxetine HCL 30 MG CAPSULE.DR PO SCH ×3 (00:28→23:10)
[2021-06-14] MEDS: HEPARIN NA (PORCINE) 5,000 UNITS/ML 1ML VIAL SQ SCH ×4 (00:28→23:09)
[2021-06-14] MEDS: INSULIN (LEVEMIR) 100 UNITS/ML UNITS SQ SCH ×3 (00:28→23:14)
[2021-06-14] MEDS: LIDOCAINE PATCH REMOVAL MC SCH ×2 (00:28→23:14)
[2021-06-14] MEDS: clonazePAM 0.5 MG TABLET PO SCH ×4 (00:28→23:09)
[2021-06-14] MEDS: CARVEDILOL 3.125 MG TABLET (FP) PO SCH ×3 (00:28→23:10)
[2021-06-14] MEDS: GABAPENTIN 300 MG CAPSULE PO SCH ×6 (00:28→23:10)
[2021-06-14] MEDS: QUEtiapine FUMARATE 25 MG TABLET PO SCH ×3 (00:29→23:10)
[2021-06-14] MEDS ORDERED: clonazePAM 0.5 MG TABLET ONE ×2 (05:25→14:25)
[2021-06-14] MEDS ORDERED: HEPARIN NA (PORCINE) 5,000 UNITS/ML 1ML VIAL ONE ×2 (05:25→14:25)
[2021-06-14] MEDS ORDERED: ASPIRIN 81 MG CHEWABLE TABLETS ONE (07:59)
[2021-06-14] MEDS ORDERED: QUEtiapine FUMARATE 25 MG TABLET ONE (08:00)
[2021-06-14] MEDS ORDERED: CEFTRIAXONE 1 GM/50 ML BAG ONE (08:00)
[2021-06-14] MEDS ORDERED: CARVEDILOL 3.125 MG TABLET (FP) ONE (08:00)
[2021-06-14] MEDS ORDERED: VANCOMYCIN 1 GRAM (PRE-DOCKED) 1,000 MG/250 ML BAG IVPB ONE (08:00)
[2021-06-14] MEDS ORDERED: DULoxetine HCL 30 MG CAPSULE.DR PO ONE (08:00)
[2021-06-14 08:28] LABS: HEMATOCRIT 36.5 % (32.4-45.2); HEMOGLOBIN 12.8 GM/dL (10.7-15.3); MCH 29.7 pg (25.7-33.7); MEAN CELL VOLUME 84.9 fl (80-96); MEAN PLT VOLUME 6.5 fl (7.5-11.1); PLATELET COUNT 205 10^3/uL (134-434); RDW 13.8 % (11.6-15.6); WHITE BLOOD COUNT 5.1 K/mm3 (4.0-10.0)
[2021-06-14 08:55] LABS: BLOOD UREA NITROGEN 11.6 mg/dL (7-18); CALCIUM 8.6 mg/dL (8.5-10.1)
[2021-06-14 08:56] LABS: ALBUMIN 3.3 g/dl (3.4-5.0); MAGNESIUM 1.9 mg/dL (1.8-2.4)
[2021-06-14 08:59] LABS: CREATININE 0.6 mg/dL (0.55-1.3); PHOSPHOROUS 3.4 mg/dL (2.5-4.9)
[2021-06-14 09:00] LABS: BILIRUBIN,TOTAL 0.8 mg/dL (0.2-1); TOT PROT 6.5 g/dl (6.4-8.2)
[2021-06-14] MEDS: ASPIRIN 81 MG CHEWABLE TABLETS PO SCH (09:30)
[2021-06-14] MEDS ORDERED: LIDOCAINE 5% TOPICAL PATCH ONE (09:32)
[2021-06-14] MEDS: CEFTRIAXONE 1 GM in DEXTROSE 5%-WATER - 50 ML IVPB SCH (09:55)
[2021-06-14] MEDS: LIDOCAINE 5% TOPICAL PATCH TP SCH (09:55)
[2021-06-14] MEDS: VANCOMYCIN 1 GRAM (PRE-DOCKED) 1,000 MG/250 ML BAG IVPB SCH (15:05)
[2021-06-14] MEDS ORDERED: PNEUMOC 13-VAL CONJ-DIP CRM/PF 0.5 ML DISP.SYRIN IM ONE (19:22)
[2021-06-14 19:23] VITALS: BMI 24.5
[2021-06-15] MEDS: oxyCODONE HCL 5 MG TABLET PO PRN ×3 (05:22→21:23)
[2021-06-15] MEDS: clonazePAM 0.5 MG TABLET PO SCH ×3 (05:23→21:21)
[2021-06-15] MEDS: HEPARIN NA (PORCINE) 5,000 UNITS/ML 1ML VIAL SQ SCH ×3 (05:24→21:21)
[2021-06-15] MEDS: INSULIN (LEVEMIR) 100 UNITS/ML UNITS SQ SCH ×2 (06:00→21:22)
[2021-06-15] MEDS: INSULIN SLIDING SCALE (NOVOLOG) 1 VIAL SQ SCH ×4 (06:00→21:22)
[2021-06-15] MEDS: VANCOMYCIN 1 GRAM (PRE-DOCKED) 1,000 MG/250 ML BAG IVPB SCH ×2 (06:02→17:14)
[2021-06-15 06:10] LABS: HEMOGLOBIN 13.6 GM/dL (10.7-15.3); MCH 29.7 pg (25.7-33.7); MEAN CELL VOLUME 84.9 fl (80-96); MEAN PLT VOLUME 6.6 fl (7.5-11.1); PLATELET COUNT 193 10^3/uL (134-434); RBC 4.59 M/mm3 (3.60-5.2); RDW 13.3 % (11.6-15.6); WHITE BLOOD COUNT 4.3 K/mm3 (4.0-10.0)
[2021-06-15 06:32] LABS: CALCIUM 8.8 mg/dL (8.5-10.1)
[2021-06-15 06:33] LABS: ALBUMIN 3.1 g/dl (3.4-5.0); BLOOD UREA NITROGEN 12.3 mg/dL (7-18); MAGNESIUM 1.7 mg/dL (1.8-2.4)
[2021-06-15 06:36] LABS: CREATININE 0.7 mg/dL (0.55-1.3); PHOSPHOROUS 4.1 mg/dL (2.5-4.9)
[2021-06-15 06:37] LABS: BILIRUBIN,TOTAL 0.8 mg/dL (0.2-1); TOT PROT 6.6 g/dl (6.4-8.2)
[2021-06-15] MEDS: QUEtiapine FUMARATE 25 MG TABLET PO SCH ×2 (07:00→22:58)
[2021-06-15] MEDS ORDERED: DEXTROSE 5%-WATER - 50 ML IVPB ONE (09:14)
[2021-06-15] MEDS ORDERED: cefTRIAXone SODIUM 1 GM VIAL ONE (09:14)
[2021-06-15] MEDS: CARVEDILOL 3.125 MG TABLET (FP) PO SCH ×2 (09:44→21:22)
[2021-06-15] MEDS: ASPIRIN 81 MG CHEWABLE TABLETS PO SCH (09:44)
[2021-06-15] MEDS: GABAPENTIN 300 MG CAPSULE PO SCH ×4 (09:44→21:22)
[2021-06-15] MEDS: DULoxetine HCL 30 MG CAPSULE.DR PO SCH ×2 (09:44→21:22)
[2021-06-15] MEDS: PRAMIPEXOLE DIHYDROCHLORIDE 0.25 MG TABLET PO SCH ×2 (09:44→21:22)
[2021-06-15] MEDS: CEFTRIAXONE 1 GM in DEXTROSE 5%-WATER - 50 ML IVPB SCH (09:44)
[2021-06-15] MEDS: LIDOCAINE 5% TOPICAL PATCH TP SCH (09:44)
[2021-06-15] MEDS: ACETAMINOPHEN 325 MG TABLET (FP) PO PRN ×2 (12:52→19:50)
[2021-06-15] MEDS: ATORVASTATIN CA 40 MG TABLET (FP) PO SCH (21:22)
[2021-06-15] MEDS: LIDOCAINE PATCH REMOVAL MC SCH (22:52)
[2021-06-16] MEDS: VANCOMYCIN 1 GRAM (PRE-DOCKED) 1,000 MG/250 ML BAG IVPB SCH ×2 (05:52→17:46)
[2021-06-16] MEDS: HEPARIN NA (PORCINE) 5,000 UNITS/ML 1ML VIAL SQ SCH ×3 (05:56→23:00)
[2021-06-16] MEDS: clonazePAM 0.5 MG TABLET PO SCH ×3 (05:56→23:02)
[2021-06-16] MEDS: QUEtiapine FUMARATE 25 MG TABLET PO SCH ×2 (06:11→23:01)
[2021-06-16] MEDS: INSULIN SLIDING SCALE (NOVOLOG) 1 VIAL SQ SCH ×4 (06:12→23:46)
[2021-06-16] MEDS: INSULIN (LEVEMIR) 100 UNITS/ML UNITS SQ SCH ×2 (06:12→23:45)
[2021-06-16 06:49] LABS: HEMATOCRIT 38.8 % (32.4-45.2); HEMOGLOBIN 13.7 GM/dL (10.7-15.3); MCH 29.7 pg (25.7-33.7); MCHC 35.2 g/dl (32.0-36.0); MEAN CELL VOLUME 84.4 fl (80-96); MEAN PLT VOLUME 7.8 fl (7.5-11.1); PLATELET COUNT 211 10^3/uL (134-434); RDW 13.4 % (11.6-15.6); WHITE BLOOD COUNT 5.4 K/mm3 (4.0-10.0)
[2021-06-16 06:59] LABS: CALCIUM 9.4 mg/dL (8.5-10.1)
[2021-06-16 07:00] LABS: BLOOD UREA NITROGEN 15.9 mg/dL (7-18); MAGNESIUM 1.7 mg/dL (1.8-2.4)
[2021-06-16 07:03] LABS: CREATININE 0.6 mg/dL (0.55-1.3); PHOSPHOROUS 5.5 mg/dL (2.5-4.9)
[2021-06-16] MEDS ORDERED: cefTRIAXone SODIUM 1 GM VIAL ONE (10:07)
[2021-06-16] MEDS ORDERED: PT OWN MED DRAWER 7, Y5N ONE (10:07)
[2021-06-16] MEDS ORDERED: DEXTROSE 5%-WATER - 50 ML IVPB ONE (10:08)
[2021-06-16] MEDS: ASPIRIN 81 MG CHEWABLE TABLETS PO SCH (10:16)
[2021-06-16] MEDS: CARVEDILOL 3.125 MG TABLET (FP) PO SCH ×2 (10:16→23:01)
[2021-06-16] MEDS: LIDOCAINE 5% TOPICAL PATCH TP SCH (10:16)
[2021-06-16] MEDS: GABAPENTIN 300 MG CAPSULE PO SCH ×4 (10:16→23:01)
[2021-06-16] MEDS: PRAMIPEXOLE DIHYDROCHLORIDE 0.25 MG TABLET PO SCH ×2 (10:16→23:01)
[2021-06-16] MEDS: CEFTRIAXONE 1 GM in DEXTROSE 5%-WATER - 50 ML IVPB SCH (10:17)
[2021-06-16] MEDS: DULoxetine HCL 30 MG CAPSULE.DR PO SCH ×2 (10:17→23:01)
[2021-06-16] MEDS: ACETAMINOPHEN 325 MG TABLET (FP) PO PRN (10:29)
[2021-06-16] MEDS: oxyCODONE HCL 5 MG TABLET PO PRN ×2 (10:29→23:02)
[2021-06-16] MEDS: Insulin (LOG) Aspart 100 UNITS/ML VIAL SQ SCH (17:49)
[2021-06-16] MEDS: ATORVASTATIN CA 40 MG TABLET (FP) PO SCH (23:01)
[2021-06-16] MEDS: LIDOCAINE PATCH REMOVAL MC SCH (23:03)
[2021-06-17] MEDS: HEPARIN NA (PORCINE) 5,000 UNITS/ML 1ML VIAL SQ SCH ×2 (06:33→15:33)
[2021-06-17] MEDS: INSULIN (LEVEMIR) 100 UNITS/ML UNITS SQ SCH (06:36)
[2021-06-17] MEDS: QUEtiapine FUMARATE 25 MG TABLET PO SCH (06:36)
[2021-06-17] MEDS: clonazePAM 0.5 MG TABLET PO SCH ×2 (06:36→15:34)
[2021-06-17] MEDS: INSULIN SLIDING SCALE (NOVOLOG) 1 VIAL SQ SCH ×3 (06:37→17:10)
[2021-06-17] MEDS: Insulin (LOG) Aspart 100 UNITS/ML VIAL SQ SCH ×3 (06:38→17:10)
[2021-06-17 07:11] LABS: HEMATOCRIT 38.2 % (32.4-45.2); HEMOGLOBIN 13.5 GM/dL (10.7-15.3); MCHC 35.3 g/dl (32.0-36.0); MEAN CELL VOLUME 84.8 fl (80-96); MEAN PLT VOLUME 7.4 fl (7.5-11.1); PLATELET COUNT 195 10^3/uL (134-434); RDW 13.4 % (11.6-15.6); WHITE BLOOD COUNT 5.9 K/mm3 (4.0-10.0)
[2021-06-17 07:37] LABS: BLOOD UREA NITROGEN 15.5 mg/dL (7-18); CALCIUM 9.4 mg/dL (8.5-10.1); MAGNESIUM 1.6 mg/dL (1.8-2.4)
[2021-06-17 07:41] LABS: CREATININE 0.8 mg/dL (0.55-1.3)
[2021-06-17] MEDS ORDERED: DEXTROSE 5%-WATER - 50 ML IVPB ONE (08:15)
[2021-06-17] MEDS ORDERED: cefTRIAXone SODIUM 1 GM VIAL ONE (08:15)
[2021-06-17] MEDS ORDERED: INSULIN (LEVEMIR) 100 UNITS/ML UNITS SQ ONE (09:30)
[2021-06-17] MEDS: oxyCODONE HCL 5 MG TABLET PO PRN (10:41)
[2021-06-17] MEDS: ASPIRIN 81 MG CHEWABLE TABLETS PO SCH (10:41)
[2021-06-17] MEDS: CARVEDILOL 3.125 MG TABLET (FP) PO SCH (10:41)
[2021-06-17] MEDS: GABAPENTIN 300 MG CAPSULE PO SCH ×3 (10:41→17:11)
[2021-06-17] MEDS: PRAMIPEXOLE DIHYDROCHLORIDE 0.25 MG TABLET PO SCH (10:41)
[2021-06-17] MEDS: DULoxetine HCL 30 MG CAPSULE.DR PO SCH (10:42)
[2021-06-17] MEDS: CEFTRIAXONE 1 GM in DEXTROSE 5%-WATER - 50 ML IVPB SCH (10:42)
[2021-06-17] MEDS: LIDOCAINE 5% TOPICAL PATCH TP SCH (10:42)
[2021-06-17] MEDS ORDERED: MAGNESIUM 2GM/50ML STERILE WATER IVPB IVPB ONE (12:00)
[2021-06-17] MEDS ORDERED: VANCOMYCIN 1 GRAM (PRE-DOCKED) 1,000 MG/250 ML BAG IVPB SCH ×2 (12:00)
[2021-06-17 15:25] VITALS: TEMP 98.5
[2021-06-24 14:32] VITALS: BP 90/57; PULSE 60
== END 2021-06-17 18:30 | disposition home or self-care (01) | DRG 177 ==
LOC: JER 14:47 → JERBED 21:05 → J4W 06-14 15:38
PROVIDERS: ADMIT Internal Medicine; ATTEND Internal Medicine
DX: J15.212 Pneumonia due to Methicillin resistant Staphylococcus aureus (principal); J96.02 Acute respiratory failure with hypercapnia; J96.01 Acute respiratory failure with hypoxia; I50.22 Chronic systolic (congestive) heart failure; J44.1 Chronic obstructive pulmonary disease with (acute) exacerbation; E87.2 Acidosis; F50.00 Anorexia nervosa, unspecified; I25.10 Atherosclerotic heart disease of native coronary artery without angina pectoris; I25.2 Old myocardial infarction; Z95.0 Presence of cardiac pacemaker; E78.5 Hyperlipidemia, unspecified; J44.9 Chronic obstructive pulmonary disease, unspecified; F32.A Depression, unspecified; F41.9 Anxiety disorder, unspecified; I11.0 Hypertensive heart disease with heart failure; E11.9 Type 2 diabetes mellitus without complications; M54.9 Dorsalgia, unspecified; E11.65 Type 2 diabetes mellitus with hyperglycemia; K76.0 Fatty (change of) liver, not elsewhere classified; F50.9 Eating disorder, unspecified; R19.7 Diarrhea, unspecified; D64.9 Anemia, unspecified; R55 Syncope and collapse
CPT/HCPCS: 36415; 36600; 71045-TC-FY; 71250-TC; 74176-TC; 80048; 80053; 80307; 81003; 82010; 82550; 82803; 82962; 83036; 83605; 83690; 83735; 83930; 84100; 84484; 85025; 85027; 87070; 87086; 87186; 87205; 87804; 93005; 93010; 94010; 94660; 94761; 99285-25; C9803; G0480; J1644; U0003; U0005

== ENCOUNTER 2021-06-18 09:01 | Observation (INO) | payer OTHER ==
[2021-06-18] MEDS ORDERED: NALOXONE HCL 0.4 MG/ML VIAL IVPUSH ONE ×2 (09:42→11:24)
[2021-06-18] MEDS ORDERED: NALOXONE HCL 0.4 MG/ML VIAL ONE (09:43)
[2021-06-18 10:41] LABS: ALBUMIN 4.6 g/dl (3.4-5.0); CALCIUM 10.2 mg/dl (8.5-10); TOT PROT 7.8 g/dl (6.4-8.2)
[2021-06-18] MEDS ORDERED: CALCIUM GLUCONATE 10% - 1,000 MG/10 ML VIAL IVPUSH ONE (11:28)
[2021-06-18] MEDS ORDERED: FUROSEMIDE 40 MG/4 ML INJECTABLE VIAL IVPUSH ONE (11:28)
[2021-06-18] MEDS ORDERED: INSULIN REGULAR HUMAN 100 UNITS/ML *VIAL IVPUSH ONE (11:28)
[2021-06-18] MEDS ORDERED: CALCIUM GLUCONATE 10% - 1,000 MG/10 ML VIAL ONE (11:47)
[2021-06-18] MEDS ORDERED: INSULIN REGULAR HUMAN 100 UNITS/ML *VIAL ONE (11:47)
[2021-06-18] MEDS ORDERED: ALBUTEROL SO4 0.083% IH SOL 2.5 MG/3 ML VIAL.NEB. NEB ONE ×2 (11:47→12:03)
[2021-06-18] MEDS ORDERED: FUROSEMIDE 40 MG/4 ML INJECTABLE VIAL ONE (11:48)
[2021-06-18] MEDS: ALBUTEROL SO4 0.083% IH SOL 2.5 MG/3 ML VIAL.NEB. NEB SCH ×4 (12:00→12:35)
[2021-06-18 13:01] LABS: BASO % 0.5 % (0-2.0); HEMATOCRIT 41.5 % (32.4-45.2); HEMOGLOBIN 14.1 GM/dL (10.7-15.3); LYMPH % 25.9 % (8-40); MCH 29.5 pg (25.7-33.7); MCHC 34.1 g/dl (32.0-36.0); MEAN CELL VOLUME 86.4 fl (80-96); MEAN PLT VOLUME 8.9 fl (7.5-11.1); MONO % 7.6 % (3.8-10.2); PLATELET COUNT 209 10^3/uL (134-434); RDW 13.8 % (11.6-15.6); WHITE BLOOD COUNT 8.1 K/mm3 (4.0-10.0)
[2021-06-18] MEDS ORDERED: ASPIRIN 81 MG CHEWABLE TABLETS PO SCH (13:15)
[2021-06-18] MEDS ORDERED: CLINDAMYCIN HCL 150 MG CAPSULE (FP) ONE (13:24)
[2021-06-18] MEDS ORDERED: ASPIRIN 81 MG CHEWABLE TABLETS ONE (13:24)
[2021-06-18] MEDS ORDERED: GABAPENTIN 300 MG CAPSULE ONE (13:24)
[2021-06-18] MEDS: GABAPENTIN 300 MG CAPSULE PO SCH ×3 (13:25→21:34)
[2021-06-18] MEDS: CLINDAMYCIN HCL 150 MG CAPSULE (FP) PO SCH ×2 (13:25→21:32)
[2021-06-18] MEDS: busPIRone HCL 5 MG TABLET PO SCH ×2 (13:29→21:32)
[2021-06-18] MEDS ORDERED: MAG HYDROX/AL HYDROX/SIMETH 30 ML UNIT-DOSE CUP PO ONE (13:53)
[2021-06-18] MEDS ORDERED: FAMOTIDINE 20 MG/50 ML IVPB 20 MG/50 ML MG IVPB ONE ×2 (13:53→14:20)
[2021-06-18 14:07] LABS: EPITHELIAL CELLS FEW /hpf
[2021-06-18 14:08] LABS: CALCIUM OXALATE CRYSTALS FEW /hpf (NONE SEEN)
[2021-06-18] MEDS ORDERED: MAG HYDROX/AL HYDROX/SIMETH 30 ML UNIT-DOSE CUP ONE (14:20)
[2021-06-18] MEDS ORDERED: ACETAMINOPHEN 325 MG TABLET (FP) PO PRN (15:39)
[2021-06-18] MEDS ORDERED: SODIUM CHLORIDE 1,000 ML IV SCH (16:00)
[2021-06-18 16:12] VITALS: BMI 26.4
[2021-06-18] MEDS: INSULIN (NOVOLOG) ASPART 100 UNITS/ML 10ML VIAL SQ SCH ×2 (17:07→21:34)
[2021-06-18] MEDS: HEPARIN NA (PORCINE) 5,000 UNITS/ML 1ML VIAL SQ SCH (17:13)
[2021-06-18] MEDS ORDERED: ATORVASTATIN CA 40 MG TABLET (FP) PO SCH (22:00)
[2021-06-18] MEDS ORDERED: DULoxetine HCL 30 MG CAPSULE.DR PO SCH (22:00)
[2021-06-18] MEDS ORDERED: TIZANIDINE HCL 4 MG PO SCH (22:00)
[2021-06-18] MEDS ORDERED: CARVEDILOL 3.125 MG TABLET (FP) PO SCH (22:00)
[2021-06-18] MEDS ORDERED: INSULIN (LEVEMIR) 100 UNITS/ML UNITS SQ SCH (22:00)
[2021-06-18] MEDS ORDERED: PRAMIPEXOLE DIHYDROCHLORIDE 0.25 MG TABLET PO SCH (22:00)
[2021-06-18] MEDS ORDERED: clonazePAM 0.5 MG TABLET PO PRN (22:00)
[2021-06-19] MEDS: HEPARIN NA (PORCINE) 5,000 UNITS/ML 1ML VIAL SQ SCH (03:12)
[2021-06-19] MEDS: INSULIN (NOVOLOG) ASPART 100 UNITS/ML 10ML VIAL SQ SCH (06:32)
[2021-06-19] MEDS: CLINDAMYCIN HCL 150 MG CAPSULE (FP) PO SCH (06:32)
[2021-06-19] MEDS: busPIRone HCL 5 MG TABLET PO SCH (06:32)
[2021-06-19] MEDS ORDERED: INSULIN SLIDING SCALE (NOVOLOG) 1 VIAL SQ SCH (07:35)
[2021-06-19 09:06] VITALS: BP 128/73; PULSE 62; TEMP 97.6
== END 2021-06-19 08:00 | disposition left against medical advice (07) ==
LOC: FER 09:01 → INTOOBSV 12:45 → FM/S 12:45
PROVIDERS: ADMIT Internal Medicine; ATTEND Nurse Practitioner Acute Care
PROC: 3E0F7GC Introduction of Other Therapeutic Substance into Respiratory Tract, Via Natural or Artificial Opening (ICD-10-PCS; principal; 2021-06-18)
PROC: 3E033GC Introduction of Other Therapeutic Substance into Peripheral Vein, Percutaneous Approach (ICD-10-PCS; 2021-06-18)
PROC: 3E023GC Introduction of Other Therapeutic Substance into Muscle, Percutaneous Approach (ICD-10-PCS; 2021-06-18)
PROC: 3E013VG Introduction of Insulin into Subcutaneous Tissue, Percutaneous Approach (ICD-10-PCS; 2021-06-18)
PROC: 3E033VG Introduction of Insulin into Peripheral Vein, Percutaneous Approach (ICD-10-PCS; 2021-06-18)
PROC: 3E033NZ Introduction of Analgesics, Hypnotics, Sedatives into Peripheral Vein, Percutaneous Approach (ICD-10-PCS; 2021-06-18)
PROC: 3E0337Z Introduction of Electrolytic and Water Balance Substance into Peripheral Vein, Percutaneous Approach (ICD-10-PCS; 2021-06-18)
DX: R41.82 Altered mental status, unspecified (principal); T50.905A Adverse effect of unspecified drugs, medicaments and biological substances, initial encounter; G89.29 Other chronic pain; I11.0 Hypertensive heart disease with heart failure; I50.9 Heart failure, unspecified; Z95.5 Presence of coronary angioplasty implant and graft; E78.5 Hyperlipidemia, unspecified; R73.9 Hyperglycemia, unspecified; F11.90 Opioid use, unspecified, uncomplicated; I50.20 Unspecified systolic (congestive) heart failure; G47.33 Obstructive sleep apnea (adult) (pediatric); M51.36 Other intervertebral disc degeneration, lumbar region; E87.5 Hyperkalemia
CPT/HCPCS: 36415; 70450-TC; 71045-TC-FY; 80053; 81003; 81015; 82550; 82962; 84443; 84484; 85025; 87086; 93005; 94640; 96361; 96365; 96372; 96375; 99285-25; C9803; G0378; J1644; U0003; U0005

== ENCOUNTER 2021-09-19 11:45 | Emergency (ER) | payer OTHER ==
[2021-09-19 11:54] VITALS: BP 118/64; PULSE 90; TEMP 98.5; BMI 26.4
[2021-09-19 14:35] LABS: BASO % 0.3 % (0-2.0); EOS % 5.7 % (0-4.5); HEMATOCRIT 37.1 % (32.4-45.2); HEMOGLOBIN 12.8 GM/dL (10.7-15.3); LYMPH % 23.4 % (8-40); MCH 28.7 pg (25.7-33.7); MCHC 34.6 g/dl (32.0-36.0); MEAN PLT VOLUME 6.9 fl (7.5-11.1); MONO % 8.1 % (3.8-10.2); NEUT % 62.5 % (42.8-82.8); PLATELET COUNT 195 10^3/uL (134-434); RBC 4.47 M/mm3 (3.60-5.2); WHITE BLOOD COUNT 5.8 K/mm3 (4.0-10.0)
[2021-09-19 14:58] LABS: ALBUMIN 3.7 g/dl (3.4-5.0); CALCIUM 9.2 mg/dL (8.5-10.1)
[2021-09-19 14:59] LABS: BLOOD UREA NITROGEN 10.6 mg/dL (7-18); MAGNESIUM 1.9 mg/dL (1.8-2.4)
[2021-09-19 15:01] LABS: CREATININE 0.7 mg/dL (0.55-1.3); PHOSPHOROUS 4.8 mg/dL (2.5-4.9)
[2021-09-19 15:03] LABS: BILIRUBIN,TOTAL 0.4 mg/dL (0.2-1); TOT PROT 7.1 g/dl (6.4-8.2)
== END 2021-09-19 15:34 | disposition home or self-care (01) ==
LOC: JER 11:45
DX: R53.1 Weakness (principal); L03.114 Cellulitis of left upper limb
CPT/HCPCS: 36415; 71045-TC-FY; 80053; 83735; 84100; 84484; 85025; 93005; 93010; 93971; 99285-25

== ENCOUNTER 2021-09-27 19:54 | Emergency (ER) | payer OTHER ==
[2021-09-27 20:04] VITALS: TEMP 98.2
[2021-09-27 21:36] LABS: PH,URINE 5.5 (5.0-8.0); URINE APPEARANCE CLEAR; URINE BILIRUBIN NEGATIVE (NEGATIVE); URINE COLOR YELLOW; URINE GLUCOSE (UA) NEGATIVE (NEGATIVE); URINE KETONE NEGATIVE (NEGATIVE); URINE LEUK ESTERASE NEGATIVE (NEGATIVE); URINE NITRITE NEGATIVE (NEGATIVE); URINE PROTEIN NEGATIVE (NEGATIVE); URINE UROBILINOGEN 0.2 mg/dL (0.2-1.0)
[2021-09-27] MEDS ORDERED: ALBUTEROL SO4 2.5/IPRATROPIUM 0.5 INH SOL 3 ML VIAL.NEB. NEB ONE ×2 (22:42→22:49)
[2021-09-27 22:48] VITALS: BP 119/69; PULSE 94
== END 2021-09-27 23:33 | disposition home or self-care (01) ==
LOC: JER 19:54
PROC: 3E0F7GC Introduction of Other Therapeutic Substance into Respiratory Tract, Via Natural or Artificial Opening (ICD-10-PCS; principal; 2021-09-27)
DX: R06.02 Shortness of breath (principal)
CPT/HCPCS: 71045-TC-FY; 81003; 87086; 87186; 99284-25

== ENCOUNTER 2021-10-01 09:50 | Inpatient (IN) | payer OTHER ==
[2021-10-01] MEDS ORDERED: ACETAMINOPHEN 1000 MG/100 ML BAG IVPB ONE (10:26)
[2021-10-01] MEDS ORDERED: ACETAMINOPHEN INJECTION 100 ML IVPB ONE ×2 (10:44→21:26)
[2021-10-01 11:20] LABS: URINE APPEARANCE CLEAR; URINE BILIRUBIN NEGATIVE (NEGATIVE); URINE COLOR YELLOW; URINE GLUCOSE (UA) 3+ (NEGATIVE); URINE KETONE NEGATIVE (NEGATIVE)
[2021-10-01 11:21] LABS: PH,URINE 5.5 (5.0-8.0); URINE LEUK ESTERASE NEGATIVE (NEGATIVE); URINE NITRITE NEGATIVE (NEGATIVE); URINE PROTEIN NEGATIVE (NEGATIVE); URINE UROBILINOGEN 0.2 mg/dL (0.2-1.0)
[2021-10-01] MEDS ORDERED: morphine CARPU-JECT 4 MG/1 ML DISP.SYRIN IVPUSH ONE ×2 (11:43→15:57)
[2021-10-01] MEDS ORDERED: morphine SULFATE 4 MG/ML VIAL ONE ×2 (11:46→16:00)
[2021-10-01 11:50] LABS: BASO % 0.7 % (0-2.0); EOS % 7.8 % (0-4.5); HEMATOCRIT 32.7 % (32.4-45.2); HEMOGLOBIN 11.2 GM/dL (10.7-15.3); LYMPH % 30.4 % (8-40); MCH 28.4 pg (25.7-33.7); MCHC 34.2 g/dl (32.0-36.0); MEAN CELL VOLUME 82.9 fl (80-96); MEAN PLT VOLUME 7.7 fl (7.5-11.1); MONO % 7.2 % (3.8-10.2); NEUT % 53.9 % (42.8-82.8); PLATELET COUNT 271 10^3/uL (134-434); RBC 3.94 M/mm3 (3.60-5.2); RDW 13.5 % (11.6-15.6); WHITE BLOOD COUNT 4.6 K/mm3 (4.0-10.0)
[2021-10-01 12:57] LABS: LACTIC ACID 2.9 mmol/L (0.4-2.0)
[2021-10-01] MEDS ORDERED: SODIUM CHLORIDE 0.9% 500 ML INFUS.BAG IV ONE (12:58)
[2021-10-01] MEDS ORDERED: PIPERACILLIN/TAZOB 2.25 GM 2.25 GM in DEXTROSE 5%-WATER - 50 ML IVPB ONE (12:59)
[2021-10-01] MEDS ORDERED: PIPERACILLIN/TAZOB 2.25 GM 2.25 GM/50 ML BAG IVPB ONE (13:06)
[2021-10-01 13:31] LABS: BLOOD UREA NITROGEN 7.4 mg/dL (7-18); CALCIUM 8.7 mg/dL (8.5-10.1)
[2021-10-01 13:32] LABS: ALBUMIN 3.4 g/dl (3.4-5.0)
[2021-10-01 13:36] LABS: BILIRUBIN,TOTAL 0.4 mg/dL (0.2-1); CREATININE 0.7 mg/dL (0.55-1.3); TOT PROT 7.3 g/dl (6.4-8.2)
[2021-10-01] MEDS: INSULIN SLIDING SCALE (NOVOLOG) 1 VIAL SQ SCH (17:45)
[2021-10-01] MEDS: LACTATED RINGERS SOLUTION 1,000 ML/1,000 ML INFUS.BAG IV SCH (21:25)
[2021-10-01] MEDS: AMPICILLIN NA/SULBACTAM NA 1.5 GM in SODIUM CHLORIDE 100 ML IVPB SCH (21:25)
[2021-10-01] MEDS: ACETAMINOPHEN 1000 MG/100 ML BAG IVPB PRN (21:25)
[2021-10-01 21:32] LABS: LACTIC ACID 3.2 mmol/L (0.4-2.0)
[2021-10-01] MEDS ORDERED: DULoxetine HCL 30 MG CAPSULE.DR PO ONE (22:17)
[2021-10-01] MEDS ORDERED: ATORVASTATIN CA 40 MG TABLET (FP) ONE (22:17)
[2021-10-01] MEDS: ATORVASTATIN CA 40 MG TABLET (FP) PO SCH (22:38)
[2021-10-01] MEDS: DULoxetine HCL 30 MG CAPSULE.DR PO SCH (22:38)
[2021-10-02] MEDS ORDERED: oxyCODONE HCL 5 MG TABLET PO ONE (03:46)
[2021-10-02] MEDS: AMPICILLIN NA/SULBACTAM NA 1.5 GM in SODIUM CHLORIDE 100 ML IVPB SCH ×3 (04:00→14:58)
[2021-10-02 04:49] VITALS: BMI 26.1
[2021-10-02] MEDS: INSULIN SLIDING SCALE (NOVOLOG) 1 VIAL SQ SCH ×3 (07:13→17:07)
[2021-10-02] MEDS: ACETAMINOPHEN 1000 MG/100 ML BAG IVPB PRN (07:37)
[2021-10-02] MEDS ORDERED: SODIUM CHLORIDE 100 ML IVPB ONE ×2 (08:03→11:01)
[2021-10-02] MEDS ORDERED: AMPICILLIN NA/SULBACTAM NA 1.5 GM VIAL ONE ×2 (08:03→11:01)
[2021-10-02 08:19] LABS: BASO % 0.5 % (0-2.0); EOS % 7.4 % (0-4.5); HEMATOCRIT 35.7 % (32.4-45.2); HEMOGLOBIN 12.1 GM/dL (10.7-15.3); LYMPH % 25.8 % (8-40); MCH 27.7 pg (25.7-33.7); MCHC 33.9 g/dl (32.0-36.0); MEAN CELL VOLUME 81.7 fl (80-96); MEAN PLT VOLUME 7.3 fl (7.5-11.1); MONO % 4.3 % (3.8-10.2); PLATELET COUNT 265 10^3/uL (134-434); RBC 4.38 M/mm3 (3.60-5.2); RDW 13.6 % (11.6-15.6); WHITE BLOOD COUNT 5.1 K/mm3 (4.0-10.0)
[2021-10-02 08:37] LABS: ALBUMIN 3.2 g/dl (3.4-5.0); CALCIUM 8.6 mg/dL (8.5-10.1)
[2021-10-02 08:38] LABS: MAGNESIUM 1.9 mg/dL (1.8-2.4)
[2021-10-02 08:41] LABS: CREATININE 0.6 mg/dL (0.55-1.3); PHOSPHOROUS 4.1 mg/dL (2.5-4.9)
[2021-10-02 08:42] LABS: BILIRUBIN,TOTAL 0.5 mg/dL (0.2-1); TOT PROT 6.5 g/dl (6.4-8.2)
[2021-10-02] MEDS: DULoxetine HCL 30 MG CAPSULE.DR PO SCH ×2 (09:15→21:33)
[2021-10-02] MEDS: LACTATED RINGERS SOLUTION 1,000 ML/1,000 ML INFUS.BAG IV SCH ×2 (09:15→21:32)
[2021-10-02] MEDS ORDERED: ENOXAPARIN NA (PORCINE) 40 MG/0.4 ML DISP.SYRIN SQ SCH (10:00)
[2021-10-02] MEDS ORDERED: POLYETHYLENE GLYCOL (HEALTHYLAX) 3350 17 GM PACKET PO SCH (10:30)
[2021-10-02] MEDS: DOCUSATE SODIUM 100 MG CAPSULE (FP) PO ONE ×2 (12:04→12:51)
[2021-10-02] MEDS: oxyCODONE HCL 5 MG TABLET PO PRN ×2 (13:37→21:33)
[2021-10-02] MEDS: POLYETHYLENE GLYCOL (HEALTHYLAX) 3350 17 GM PACKET PO SCH ×2 (14:01→21:35)
[2021-10-02] MEDS: ACETAMINOPHEN 325 MG TABLET (FP) PO PRN (21:34)
[2021-10-02] MEDS: ATORVASTATIN CA 40 MG TABLET (FP) PO SCH (21:34)
[2021-10-02] MEDS ORDERED: SENNOSIDES 8.6MG TABLET (FP) PO SCH (22:00)
[2021-10-03 04:57] VITALS: BP 156/87; PULSE 68; TEMP 98
[2021-10-03] MEDS: ACETAMINOPHEN 325 MG TABLET (FP) PO PRN (06:14)
[2021-10-03] MEDS: oxyCODONE HCL 5 MG TABLET PO PRN (06:14)
[2021-10-03] MEDS: INSULIN SLIDING SCALE (NOVOLOG) 1 VIAL SQ SCH (06:16)
== END 2021-10-03 08:43 | disposition home or self-care (01) | DRG 690 ==
LOC: JER 09:50 → JERBED 15:39 → OBSVTOIN 19:24 → J7W 23:30
PROVIDERS: ADMIT Internal Medicine
DX: N39.0 Urinary tract infection, site not specified (principal); I50.22 Chronic systolic (congestive) heart failure; F50.00 Anorexia nervosa, unspecified; I25.10 Atherosclerotic heart disease of native coronary artery without angina pectoris; I11.0 Hypertensive heart disease with heart failure; J44.9 Chronic obstructive pulmonary disease, unspecified; E78.5 Hyperlipidemia, unspecified; K59.00 Constipation, unspecified; K57.90 Diverticulosis of intestine, part unspecified, without perforation or abscess without bleeding; K64.9 Unspecified hemorrhoids; F41.8 Other specified anxiety disorders; F45.22 Body dysmorphic disorder; E78.00 Pure hypercholesterolemia, unspecified; M79.7 Fibromyalgia; Z95.0 Presence of cardiac pacemaker; M54.50 Low back pain, unspecified; E11.9 Type 2 diabetes mellitus without complications; G89.29 Other chronic pain; K76.0 Fatty (change of) liver, not elsewhere classified; Z68.26 Body mass index [BMI] 26.0-26.9, adult
CPT/HCPCS: 36415; 74177-TC; 80053; 81003; 82962; 83605; 83735; 84100; 85025; 87040; 87077; 87086; 99285-25; C9803-CS; G0378; Q9967; U0003; U0005

== ENCOUNTER 2021-10-22 19:00 | Inpatient (IN) | payer OTHER ==
[2021-10-22 19:34] VITALS: BMI 25.4
[2021-10-22] MEDS ORDERED: morphine CARPU-JECT 4 MG/1 ML DISP.SYRIN IVPUSH ONE (19:45)
[2021-10-22] MEDS ORDERED: ONDANSETRON 4 MG/2 ML VIAL IVPUSH ONE (19:45)
[2021-10-22] MEDS ORDERED: ACETAMINOPHEN 1000 MG/100 ML BAG IVPB ONE (19:45)
[2021-10-22] MEDS ORDERED: PIPERACILLIN/TAZOB 4.5 GM 4.5 GM in DEXTROSE 5%-WATER 100 ML IVPB ONE (19:52)
[2021-10-22] MEDS ORDERED: SODIUM CHLORIDE 0.9% 500 ML INFUS.BAG IV ONE ×3 (19:53→21:35)
[2021-10-22] MEDS ORDERED: morphine SULFATE 4 MG/ML VIAL ONE (20:33)
[2021-10-22] MEDS ORDERED: ACETAMINOPHEN INJECTION 100 ML IVPB ONE (20:33)
[2021-10-22] MEDS ORDERED: ONDANSETRON 4 MG/2 ML VIAL ONE (20:33)
[2021-10-22] MEDS ORDERED: PIPERACILLIN/TAZOB 4.5 GM 4.5 GM/100 ML BAG IVPB ONE (20:34)
[2021-10-22 21:07] LABS: HEMOGLOBIN 13.1 GM/dL (10.7-15.3); MCH 27.6 pg (25.7-33.7); MCHC 33.7 g/dl (32.0-36.0); MEAN CELL VOLUME 81.9 fl (80-96); MEAN PLT VOLUME 7.2 fl (7.5-11.1); PLATELET COUNT 190 10^3/uL (134-434); RBC 4.76 M/mm3 (3.60-5.2); RDW 14.5 % (11.6-15.6)
[2021-10-22 21:27] LABS: VENOUS BASE EXCESS 0.8 mmol/L (-2-2); VENOUS O2 SATURATION 74.7 % (70-80); VENOUS PCO2 56.7 mmHg (38-52); VENOUS PH 7.316 (7.310-7.410)
[2021-10-22 21:29] LABS: LACTIC ACID 3.5 mmol/L (0.4-2.0)
[2021-10-22 21:44] LABS: ANISOCYTOSIS 0; EPI CELLS 6 /uL (0-25.1); HYALINE CASTS 3 /uL (0-3.1); MACROCYTOSIS 0; URINE APPEARANCE CLEAR; URINE BACTERIA >9,000 /uL (0-1359); URINE BILIRUBIN NEGATIVE (NEGATIVE); URINE COLOR YELLOW; URINE GLUCOSE (UA) 2+ (NEGATIVE); URINE KETONE TRACE (NEGATIVE); URINE LEUK ESTERASE TRACE (NEGATIVE); URINE NITRITE NEGATIVE (NEGATIVE); URINE PROTEIN 3+ (NEGATIVE); URINE RBC 65 /uL (0-23.9); URINE UROBILINOGEN 0.2 mg/dL (0.2-1.0); URINE WBC 412 /uL (0-25.8)
[2021-10-22 22:08] LABS: CALCIUM 8.6 mg/dL (8.5-10.1); CHLORIDE 95 mmol/L (98-107); SODIUM 133 mmol/L (136-145)
[2021-10-22 22:09] LABS: ALBUMIN 3.4 g/dl (3.4-5.0); ANION GAP 11 MMOL/L (8-16); BLOOD UREA NITROGEN 16.4 mg/dL (7-18); CO2 27 mmol/L (21-32); GLUCOSE,RANDOM 248 mg/dL (74-106)
[2021-10-22] MEDS ORDERED: ASPIRIN 81 MG CHEWABLE TABLETS PO ONE (22:10)
[2021-10-22 22:12] LABS: CREATININE 1.2 mg/dL (0.55-1.3); SGOT/AST 53 U/L (15-37); SGPT/ALT 17 U/L (13-61)
[2021-10-22 22:13] LABS: BILIRUBIN,TOTAL 1.3 mg/dL (0.2-1)
[2021-10-22 22:14] LABS: TOT PROT 7.7 g/dl (6.4-8.2)
[2021-10-22 22:15] LABS: ALK PHOS 109 U/L (45-117)
[2021-10-22] MEDS ORDERED: ASPIRIN 81 MG CHEWABLE TABLETS ONE (22:24)
[2021-10-22 22:29] LABS: LIPASE 62 U/L (73-393)
[2021-10-23] MEDS ORDERED: ACETAMINOPHEN 1000 MG/100 ML BAG IVPB PRN (00:39)
[2021-10-23] MEDS ORDERED: SODIUM CHLORIDE 1,000 ML IV SCH (00:45)
[2021-10-23] MEDS ORDERED: ATORVASTATIN CA 80 MG TABLET (FP) PO ONE (00:54)
[2021-10-23] MEDS ORDERED: TRIMETHOBENZAMIDE HCL 200MG/2ML INJ IM PRN (01:23)
[2021-10-23] MEDS ORDERED: ATORVASTATIN CA 80 MG TABLET (FP) ONE (02:08)
[2021-10-23] MEDS: INSULIN SLIDING SCALE (NOVOLOG) 1 VIAL SQ SCH ×5 (02:22→21:38)
[2021-10-23] MEDS: MEROPENEM 1 GM in DEXTROSE 5%-WATER 100 ML IVPB SCH ×2 (02:23→11:32)
[2021-10-23] MEDS ORDERED: HEPARIN NA (PORCINE) 5,000 UNITS/ML 1ML VIAL IVPUSH PRN (02:48)
[2021-10-23] MEDS ORDERED: NITROGLYCERIN SUBLINGUAL 1/200 0.3 MG BTL SL PRN (03:11)
[2021-10-23] MEDS ORDERED: NITROGLYCERIN SUBLINGUAL 1/150 0.4 MG TAB SL PRN (03:22)
[2021-10-23 03:31] LABS: CHOLESTEROL 115 mg/dL (50-200); TRIGLYCERIDES 107 mg/dL (0-150)
[2021-10-23 03:32] LABS: LDL CHOLESTEROL (ONLY SJRH) 58 mg/dL (5-100)
[2021-10-23 03:34] LABS: HDL CHOLESTEROL 49 mg/dL (40-60)
[2021-10-23] MEDS: HEPARIN - 25,000 UNIT in SODIUM CHLORIDE 495 ML IV SCH (04:40)
[2021-10-23] MEDS ORDERED: ACETAMINOPHEN INJECTION 100 ML IVPB ONE (04:45)
[2021-10-23 07:07] LABS: BASO % 0.4 % (0-2.0); EOS % 0.4 % (0-4.5); HEMATOCRIT 32.6 % (32.4-45.2); HEMOGLOBIN 10.9 GM/dL (10.7-15.3); LYMPH % 8.9 % (8-40); MCH 27.4 pg (25.7-33.7); MCHC 33.3 g/dl (32.0-36.0); MEAN CELL VOLUME 82.4 fl (80-96); MEAN PLT VOLUME 7.9 fl (7.5-11.1); MONO % 5.1 % (3.8-10.2); NEUT % 85.2 % (42.8-82.8); PLATELET COUNT 185 10^3/uL (134-434); RBC 3.96 M/mm3 (3.60-5.2); RDW 14.3 % (11.6-15.6); WHITE BLOOD COUNT 11.7 K/mm3 (4.0-10.0)
[2021-10-23 07:25] LABS: CALCIUM 7.8 mg/dL (8.5-10.1)
[2021-10-23 07:26] LABS: ALBUMIN 2.8 g/dl (3.4-5.0); BLOOD UREA NITROGEN 18.7 mg/dL (7-18); MAGNESIUM 1.5 mg/dL (1.8-2.4)
[2021-10-23 07:29] LABS: PHOSPHOROUS 4.4 mg/dL (2.5-4.9)
[2021-10-23 07:31] LABS: BILIRUBIN,TOTAL 0.8 mg/dL (0.2-1); TOT PROT 6.1 g/dl (6.4-8.2)
[2021-10-23] MEDS ORDERED: ENOXAPARIN NA (PORCINE) 40 MG/0.4 ML DISP.SYRIN SQ SCH (10:00)
[2021-10-23] MEDS ORDERED: MEROPENEM 1 GM VIAL (RESTRICTED TO ID) IVPB ONE (11:11)
[2021-10-23] MEDS: HEPARIN NA (PORCINE) 5,000 UNITS/ML 1ML VIAL IVPUSH PRN (11:19)
[2021-10-23] MEDS: morphine SULFATE 4 MG/ML VIAL IVPUSH PRN (15:40)
[2021-10-23] MEDS ORDERED: DEXTROSE 5%-WATER - 50 ML IVPB ONE (17:05)
[2021-10-23] MEDS ORDERED: PIPERACILLIN/TAZOBACTAM 3.375 GM VIAL IVPB ONE (17:05)
[2021-10-23] MEDS: PIPERACILLIN/TAZOB 3.375 GM 3.375 GM in DEXTROSE 5%-WATER - 50 ML IVPB SCH (17:28)
[2021-10-23] MEDS ORDERED: clonazePAM 0.5 MG TABLET PO ONE (20:35)
[2021-10-23] MEDS: SENNOSIDES 8.6MG TABLET (FP) PO SCH (21:38)
[2021-10-23] MEDS: DOCUSATE SODIUM 100 MG CAPSULE (FP) PO SCH (21:38)
[2021-10-23] MEDS: ATORVASTATIN CA 40 MG TABLET (FP) PO SCH (21:47)
[2021-10-23] MEDS: POLYETHYLENE GLYCOL (HEALTHYLAX) 3350 17 GM PACKET PO SCH (21:47)
[2021-10-23] MEDS ORDERED: ACETAMINOPHEN 500 MG TABLET (FP) PO ONE (23:53)
[2021-10-24] MEDS ORDERED: MEROPENEM 1 GM in DEXTROSE 5%-WATER 100 ML IVPB SCH (02:00)
[2021-10-24] MEDS ORDERED: PIPERACILLIN/TAZOBACTAM 3.375 GM VIAL IVPB ONE ×3 (02:02→15:49)
[2021-10-24] MEDS ORDERED: DEXTROSE 5%-WATER - 50 ML IVPB ONE ×3 (02:02→15:49)
[2021-10-24] MEDS: PIPERACILLIN/TAZOB 3.375 GM 3.375 GM in DEXTROSE 5%-WATER - 50 ML IVPB SCH ×3 (02:24→17:09)
[2021-10-24] MEDS: HEPARIN - 25,000 UNIT in SODIUM CHLORIDE 495 ML IV SCH ×2 (04:16→06:54)
[2021-10-24] MEDS: INSULIN SLIDING SCALE (NOVOLOG) 1 VIAL SQ SCH ×4 (06:09→22:13)
[2021-10-24] MEDS: DOCUSATE SODIUM 100 MG CAPSULE (FP) PO SCH ×3 (06:30→22:13)
[2021-10-24 07:42] LABS: HEMOGLOBIN 10.7 GM/dL (10.7-15.3); MCH 27.5 pg (25.7-33.7); MCHC 33.6 g/dl (32.0-36.0); MEAN CELL VOLUME 81.9 fl (80-96); MEAN PLT VOLUME 7.6 fl (7.5-11.1); PLATELET COUNT 171 10^3/uL (134-434); RDW 14.3 % (11.6-15.6); WHITE BLOOD COUNT 6.5 K/mm3 (4.0-10.0)
[2021-10-24 08:36] LABS: ALBUMIN 2.8 g/dl (3.4-5.0); BILIRUBIN,TOTAL 0.9 mg/dL (0.2-1); BLOOD UREA NITROGEN 15.8 mg/dL (7-18); CREATININE 0.9 mg/dL (0.55-1.3); TOT PROT 6.5 g/dl (6.4-8.2)
[2021-10-24] MEDS: POLYETHYLENE GLYCOL (HEALTHYLAX) 3350 17 GM PACKET PO SCH ×2 (10:11→22:13)
[2021-10-24 11:21] LABS: ANISOCYTOSIS 0; HELMET CELLS 0; HOWELL-JOLLY BODIES 0; MACROCYTOSIS 0; OVALOCYTE 0; ROULEAU 0; SICKELED CELLS 0; TARGET CELLS 0; TEAR DROP CELLS 0; TOXIC GRANULATION 0
[2021-10-24] MEDS: morphine SULFATE 4 MG/ML VIAL IVPUSH PRN (12:27)
[2021-10-24] MEDS: oxyCODONE HCL 5 MG TABLET PO PRN ×2 (14:06→22:20)
[2021-10-24] MEDS: clonazePAM 0.5 MG TABLET PO PRN (14:07)
[2021-10-24] MEDS: HEPARIN NA (PORCINE) 5,000 UNITS/ML 1ML VIAL IVPUSH PRN ×2 (16:36→23:26)
[2021-10-24] MEDS: ATORVASTATIN CA 40 MG TABLET (FP) PO SCH (22:13)
[2021-10-24] MEDS: SENNOSIDES 8.6MG TABLET (FP) PO SCH (22:13)
[2021-10-25] MEDS ORDERED: DEXTROSE 5%-WATER - 50 ML IVPB ONE ×3 (01:24→16:55)
[2021-10-25] MEDS ORDERED: PIPERACILLIN/TAZOBACTAM 3.375 GM VIAL IVPB ONE ×3 (01:24→16:55)
[2021-10-25] MEDS: PIPERACILLIN/TAZOB 3.375 GM 3.375 GM in DEXTROSE 5%-WATER - 50 ML IVPB SCH ×3 (02:25→17:05)
[2021-10-25] MEDS: HEPARIN - 25,000 UNIT in SODIUM CHLORIDE 495 ML IV SCH (05:00)
[2021-10-25] MEDS: DOCUSATE SODIUM 100 MG CAPSULE (FP) PO SCH ×4 (06:02→21:11)
[2021-10-25] MEDS: INSULIN SLIDING SCALE (NOVOLOG) 1 VIAL SQ SCH ×4 (06:02→21:16)
[2021-10-25] MEDS: oxyCODONE HCL 5 MG TABLET PO PRN ×3 (06:05→13:13)
[2021-10-25 08:11] LABS: MCHC 34.5 g/dl (32.0-36.0); MEAN CELL VOLUME 81.1 fl (80-96); MEAN PLT VOLUME 7.4 fl (7.5-11.1); PLATELET COUNT 191 10^3/uL (134-434); RBC 3.57 M/mm3 (3.60-5.2); RDW 14.1 % (11.6-15.6); WHITE BLOOD COUNT 4.6 K/mm3 (4.0-10.0)
[2021-10-25] MEDS: POLYETHYLENE GLYCOL (HEALTHYLAX) 3350 17 GM PACKET PO SCH ×2 (09:10→21:11)
[2021-10-25 09:20] LABS: ALBUMIN 2.4 g/dl (3.4-5.0); BLOOD UREA NITROGEN 15.1 mg/dL (7-18); CALCIUM 8.1 mg/dL (8.5-10.1); CREATININE 0.8 mg/dL (0.55-1.3); MAGNESIUM 1.9 mg/dL (1.8-2.4); TOT PROT 6.2 g/dl (6.4-8.2)
[2021-10-25 10:20] LABS: ANISOCYTOSIS 0; HELMET CELLS 0; HOWELL-JOLLY BODIES 0; MACROCYTOSIS 0; OVALOCYTE 0; ROULEAU 0; SICKELED CELLS 0; TARGET CELLS 0; TEAR DROP CELLS 0; TOXIC GRANULATION 0
[2021-10-25] MEDS: clonazePAM 0.5 MG TABLET PO PRN (13:22)
[2021-10-25] MEDS: HEPARIN NA (PORCINE) 5,000 UNITS/ML 1ML VIAL SQ SCH (21:11)
[2021-10-25] MEDS: ATORVASTATIN CA 40 MG TABLET (FP) PO SCH (21:11)
[2021-10-25] MEDS: SENNOSIDES 8.6MG TABLET (FP) PO SCH (21:11)
[2021-10-26] MEDS ORDERED: PIPERACILLIN/TAZOBACTAM 3.375 GM VIAL IVPB ONE ×3 (01:23→17:05)
[2021-10-26] MEDS ORDERED: DEXTROSE 5%-WATER - 50 ML IVPB ONE ×3 (01:23→17:05)
[2021-10-26] MEDS: PIPERACILLIN/TAZOB 3.375 GM 3.375 GM in DEXTROSE 5%-WATER - 50 ML IVPB SCH ×3 (02:19→17:36)
[2021-10-26] MEDS: oxyCODONE HCL 5 MG TABLET PO PRN ×3 (05:58→21:17)
[2021-10-26] MEDS: HEPARIN NA (PORCINE) 5,000 UNITS/ML 1ML VIAL SQ SCH ×3 (05:58→21:13)
[2021-10-26] MEDS: DOCUSATE SODIUM 100 MG CAPSULE (FP) PO SCH ×3 (05:58→21:13)
[2021-10-26] MEDS: INSULIN SLIDING SCALE (NOVOLOG) 1 VIAL SQ SCH ×4 (06:01→21:15)
[2021-10-26 08:11] LABS: BASO % 0.5 % (0-2.0); EOS % 3.2 % (0-4.5); HEMATOCRIT 32.9 % (32.4-45.2); HEMOGLOBIN 11.4 GM/dL (10.7-15.3); LYMPH % 22.4 % (8-40); MCH 27.8 pg (25.7-33.7); MCHC 34.6 g/dl (32.0-36.0); MEAN CELL VOLUME 80.2 fl (80-96); MEAN PLT VOLUME 7.8 fl (7.5-11.1); NEUT % 60.9 % (42.8-82.8); PLATELET COUNT 226 10^3/uL (134-434); WHITE BLOOD COUNT 5.2 K/mm3 (4.0-10.0)
[2021-10-26 08:25] LABS: CALCIUM 8.8 mg/dL (8.5-10.1)
[2021-10-26 08:26] LABS: BLOOD UREA NITROGEN 13.8 mg/dL (7-18)
[2021-10-26 08:28] LABS: CREATININE 0.7 mg/dL (0.55-1.3)
[2021-10-26 08:30] LABS: BILIRUBIN,TOTAL 0.8 mg/dL (0.2-1); TOT PROT 7.2 g/dl (6.4-8.2)
[2021-10-26] MEDS: POLYETHYLENE GLYCOL (HEALTHYLAX) 3350 17 GM PACKET PO SCH ×2 (09:32→21:13)
[2021-10-26] MEDS: MULTIVITAMINS (DAILY MVI) TABLET (FP) PO SCH (09:32)
[2021-10-26] MEDS: ATORVASTATIN CA 40 MG TABLET (FP) PO SCH (21:14)
[2021-10-26] MEDS: clonazePAM 0.5 MG TABLET PO PRN (21:14)
[2021-10-26] MEDS: SENNOSIDES 8.6MG TABLET (FP) PO SCH (21:15)
[2021-10-27] MEDS ORDERED: MAG HYDROX/AL HYDROX/SIMETH 30 ML UNIT-DOSE CUP PO PRN (03:55)
[2021-10-27] MEDS: DOCUSATE SODIUM 100 MG CAPSULE (FP) PO SCH ×2 (06:48→14:15)
[2021-10-27] MEDS: HEPARIN NA (PORCINE) 5,000 UNITS/ML 1ML VIAL SQ SCH ×2 (06:48→14:15)
[2021-10-27] MEDS: INSULIN SLIDING SCALE (NOVOLOG) 1 VIAL SQ SCH ×2 (06:49→11:44)
[2021-10-27] MEDS: oxyCODONE HCL 5 MG TABLET PO PRN ×2 (06:49→11:45)
[2021-10-27 07:47] LABS: HEMATOCRIT 32.7 % (32.4-45.2); HEMOGLOBIN 11.3 GM/dL (10.7-15.3); MCH 27.5 pg (25.7-33.7); MCHC 34.5 g/dl (32.0-36.0); MEAN CELL VOLUME 79.7 fl (80-96); MEAN PLT VOLUME 7.5 fl (7.5-11.1); PLATELET COUNT 271 10^3/uL (134-434); RDW 14.3 % (11.6-15.6); WHITE BLOOD COUNT 5.5 K/mm3 (4.0-10.0)
[2021-10-27] MEDS ORDERED: AMOX TR/POT CLAV 500MG/125MG TABLETS (FP) PO SCH (08:00)
[2021-10-27] MEDS ORDERED: CARVEDILOL 3.125 MG TABLET (FP) PO SCH (10:00)
[2021-10-27] MEDS ORDERED: ASPIRIN 81 MG CHEWABLE TABLETS PO SCH (10:00)
[2021-10-27] MEDS: POLYETHYLENE GLYCOL (HEALTHYLAX) 3350 17 GM PACKET PO SCH (10:16)
[2021-10-27] MEDS: MULTIVITAMINS (DAILY MVI) TABLET (FP) PO SCH (10:16)
[2021-10-27] MEDS ORDERED: LACTOBACILLUS ACIDOPHILUS 1 TABLET PO SCH (10:30)
[2021-10-27 14:13] VITALS: BP 121/75; PULSE 64; TEMP 97.5
== END 2021-10-27 18:33 | disposition home or self-care (01) | DRG 872 ==
LOC: JER 19:00 → JERBED 23:11 → J4S 10-23 14:54
PROVIDERS: ADMIT Hospitalist; ATTEND Nurse Practitioner Acute Care
DX: A41.89 Other specified sepsis (principal); E87.2 Acidosis; I24.8 Other forms of acute ischemic heart disease; N10 Acute pyelonephritis; I50.32 Chronic diastolic (congestive) heart failure; F50.02 Anorexia nervosa, binge eating/purging type; I11.0 Hypertensive heart disease with heart failure; E78.5 Hyperlipidemia, unspecified; I25.119 Atherosclerotic heart disease of native coronary artery with unspecified angina pectoris; J44.9 Chronic obstructive pulmonary disease, unspecified; D72.829 Elevated white blood cell count, unspecified; F41.8 Other specified anxiety disorders; E11.9 Type 2 diabetes mellitus without complications; R77.8 Other specified abnormalities of plasma proteins; M54.9 Dorsalgia, unspecified; R10.9 Unspecified abdominal pain; M51.37 Other intervertebral disc degeneration, lumbosacral region; F11.90 Opioid use, unspecified, uncomplicated; K57.90 Diverticulosis of intestine, part unspecified, without perforation or abscess without bleeding; G47.33 Obstructive sleep apnea (adult) (pediatric); M50.30 Other cervical disc degeneration, unspecified cervical region; K64.9 Unspecified hemorrhoids; Z68.27 Body mass index [BMI] 27.0-27.9, adult; I25.2 Old myocardial infarction; Z95.5 Presence of coronary angioplasty implant and graft; Z95.0 Presence of cardiac pacemaker
CPT/HCPCS: 36415; 71045-TC-FY; 74177-TC; 76775-TC; 80053; 80061; 81003; 82803; 82962; 83036; 83605; 83690; 83735; 84100; 84443; 84484; 85025; 85027; 85730; 87040; 87086; 87186; 87804; 93005; 93010; 93306-TC; 97116-GP; 97162-GP; 99285-25; C9803-CS; J1644; Q9967; U0003; U0005

== ENCOUNTER 2022-01-09 20:05 | Observation (INO) | payer OTHER ==
[2022-01-09] MEDS ORDERED: ASPIRIN 81 MG CHEWABLE TABLETS PO ONE (21:01)
[2022-01-09] MEDS ORDERED: ASPIRIN 81 MG CHEWABLE TABLETS ONE (21:20)
[2022-01-09 21:45] LABS: VENOUS BASE EXCESS 1.4 mmol/L (-2-2); VENOUS PCO2 47.7 mmHg (38-52); VENOUS PH 7.374 (7.310-7.410)
[2022-01-09 21:46] LABS: BASO % 0.4 % (0-2.0); EOS % 3.5 % (0-4.5); HEMATOCRIT 34.2 % (32.4-45.2); HEMOGLOBIN 11.9 GM/dL (10.7-15.3); LYMPH % 20.4 % (8-40); MCH 28.6 pg (25.7-33.7); MCHC 34.7 g/dl (32.0-36.0); MEAN CELL VOLUME 82.5 fl (80-96); MEAN PLT VOLUME 6.6 fl (7.5-11.1); MONO % 6.6 % (3.8-10.2); NEUT % 69.1 % (42.8-82.8); PLATELET COUNT 195 10^3/uL (134-434); RBC 4.15 M/mm3 (3.60-5.2); RDW 14.3 % (11.6-15.6); WHITE BLOOD COUNT 5.5 K/mm3 (4.0-10.0)
[2022-01-09 22:01] LABS: INR 1.22 (0.83-1.09); PROTHROMBIN TIME (PATIENT) 14.1 SEC (9.7-13.0)
[2022-01-09 22:04] LABS: ACTIVATED PTT 31.4 SECONDS (25.2-36.5)
[2022-01-09 22:14] LABS: ALBUMIN 3.6 g/dl (3.4-5.0); BLOOD UREA NITROGEN 6.1 mg/dL (7-18); CALCIUM 8.4 mg/dL (8.5-10.1)
[2022-01-09 22:15] LABS: MAGNESIUM 1.6 mg/dL (1.8-2.4)
[2022-01-09 22:17] LABS: CREATININE 0.7 mg/dL (0.55-1.3)
[2022-01-09 22:19] LABS: BILIRUBIN,TOTAL 0.5 mg/dL (0.2-1)
[2022-01-09 22:22] LABS: N-TERMINAL BNP 437.4 pg/ml (5-125)
[2022-01-10] MEDS ORDERED: MAGNESIUM 1GM/D5W 100ML - 100 ML IVPB IVPB ONE (01:37)
[2022-01-10 03:40] VITALS: BMI 26.9
[2022-01-10] MEDS ORDERED: QUEtiapine FUMARATE 25 MG TABLET PO SCH (07:00)
[2022-01-10 07:37] LABS: HEMATOCRIT 34.2 % (32.4-45.2); MCH 28.8 pg (25.7-33.7); MCHC 35.1 g/dl (32.0-36.0); MEAN CELL VOLUME 82.1 fl (80-96); MEAN PLT VOLUME 6.5 fl (7.5-11.1); PLATELET COUNT 202 10^3/uL (134-434); RBC 4.16 M/mm3 (3.60-5.2); RDW 14.1 % (11.6-15.6); WHITE BLOOD COUNT 4.9 K/mm3 (4.0-10.0)
[2022-01-10 08:00] LABS: CALCIUM 8.7 mg/dL (8.5-10.1)
[2022-01-10 08:01] LABS: ALBUMIN 3.6 g/dl (3.4-5.0); BLOOD UREA NITROGEN 6.1 mg/dL (7-18); MAGNESIUM 2.1 mg/dL (1.8-2.4)
[2022-01-10 08:03] LABS: PHOSPHOROUS 5.2 mg/dL (2.5-4.9)
[2022-01-10 08:04] LABS: CREATININE 0.7 mg/dL (0.55-1.3)
[2022-01-10 08:05] LABS: BILIRUBIN,TOTAL 0.5 mg/dL (0.2-1)
[2022-01-10] MEDS ORDERED: GABAPENTIN 300 MG CAPSULE PO SCH (10:00)
[2022-01-10] MEDS ORDERED: clonazePAM 0.5 MG TABLET PO SCH ×2 (10:00→22:00)
[2022-01-10] MEDS ORDERED: CARVEDILOL 3.125 MG TABLET (FP) PO SCH (10:00)
[2022-01-10] MEDS ORDERED: DULoxetine HCL 30 MG CAPSULE.DR PO SCH (10:00)
[2022-01-10] MEDS ORDERED: ASPIRIN 81 MG CHEWABLE TABLETS PO SCH (10:00)
[2022-01-10] MEDS ORDERED: POLYETHYLENE GLYCOL (HEALTHYLAX) 3350 17 GM PACKET PO SCH (10:00)
[2022-01-10] MEDS ORDERED: RANOLAZINE E.R. 500 MG TABLET (FP) PO SCH (10:15)
[2022-01-10] MEDS ORDERED: DOCUSATE SODIUM 100 MG CAPSULE (FP) PO SCH (14:00)
[2022-01-10 14:10] VITALS: TEMP 98.6
[2022-01-10 20:07] VITALS: PULSE 62
[2022-01-10] MEDS ORDERED: ACETAMINOPHEN 1000 MG/100 ML BAG IVPB ONE (20:10)
[2022-01-10 20:18] LABS: PH,URINE 5.5 (5.0-8.0); URINE APPEARANCE CLEAR; URINE BILIRUBIN NEGATIVE (NEGATIVE); URINE COLOR YELLOW; URINE GLUCOSE (UA) TRACE (NEGATIVE); URINE KETONE NEGATIVE (NEGATIVE); URINE LEUK ESTERASE NEGATIVE (NEGATIVE); URINE NITRITE NEGATIVE (NEGATIVE); URINE PROTEIN NEGATIVE (NEGATIVE); URINE UROBILINOGEN 0.2 mg/dL (0.2-1.0)
[2022-01-10] MEDS ORDERED: ACETAMINOPHEN 1000 MG/100 ML BAG IVPB PRN (20:19)
[2022-01-10 20:31] LABS: METHADONE, UR NEGATIVE (NEGATIVE); PHENCYCLIDINE,URINE NEGATIVE (NEGATIVE); URINE BENZODIAZEPINES NEGATIVE (NEGATIVE)
[2022-01-10 20:32] LABS: OPIATES, URI NEGATIVE (NEGATIVE); URINE AMPHETAMINES NEGATIVE (NEGATIVE); URINE BARBITURATES NEGATIVE (NEGATIVE)
[2022-01-10 20:36] LABS: COCAINE, UR NEGATIVE (NEGATIVE)
[2022-01-10 21:32] VITALS: BP 127/48
[2022-01-10] MEDS ORDERED: ATORVASTATIN CA 40 MG TABLET (FP) PO SCH (22:00)
[2022-01-10] MEDS ORDERED: INSULIN SLIDING SCALE (NOVOLOG) 1 VIAL SQ SCH (22:00)
[2022-01-10] MEDS ORDERED: ATORVASTATIN CA 80 MG TABLET (FP) PO SCH (22:00)
[2022-01-10] MEDS ORDERED: MIRTAZAPINE 15 MG TABLET (FP) PO SCH (22:00)
[2022-01-11] MEDS ORDERED: QUEtiapine FUMARATE 25 MG TABLET PO SCH (07:00)
[2022-01-11] MEDS ORDERED: ENOXAPARIN NA (PORCINE) 40 MG/0.4 ML DISP.SYRIN SQ SCH (10:00)
== END 2022-01-10 21:20 | disposition left against medical advice (07) ==
LOC: JER 20:05 → INTOOBSV 01-10 00:09 → JERBED 01-10 00:09 → J2W 01-10 03:04
PROVIDERS: ADMIT Internal Medicine; ATTEND Nurse Practitioner Acute Care
PROC: 3E033NZ Introduction of Analgesics, Hypnotics, Sedatives into Peripheral Vein, Percutaneous Approach (ICD-10-PCS; principal; 2022-01-10)
PROC: 3E033GC Introduction of Other Therapeutic Substance into Peripheral Vein, Percutaneous Approach (ICD-10-PCS; 2022-01-10)
DX: N39.0 Urinary tract infection, site not specified (principal); E11.9 Type 2 diabetes mellitus without complications; I25.10 Atherosclerotic heart disease of native coronary artery without angina pectoris; I11.0 Hypertensive heart disease with heart failure; I25.2 Old myocardial infarction; R63.0 Anorexia; J44.9 Chronic obstructive pulmonary disease, unspecified; E78.5 Hyperlipidemia, unspecified; F41.8 Other specified anxiety disorders; G89.29 Other chronic pain; Z87.440 Personal history of urinary (tract) infections; R55 Syncope and collapse; Z29.8 Encounter for other specified prophylactic measures; R07.9 Chest pain, unspecified; A49.9 Bacterial infection, unspecified; Z87.891 Personal history of nicotine dependence; M54.9 Dorsalgia, unspecified; M54.6 Pain in thoracic spine; Z98.61 Coronary angioplasty status
CPT/HCPCS: 0241U-QW; 36415; 70450-TC; 71045-TC-FY; 71275-TC; 74176-TC; 80053; 80061; 80307; 81003; 82550; 82803; 82962; 83735; 83880; 84100; 84443; 84484; 85025; 85027; 85379; 85610; 85730; 87086; 93005; 93010; 96374; 96375; 96376; 99285-25; G0378; G0480

== ENCOUNTER 2022-02-09 17:47 | Inpatient (IN) | payer OTHER ==
[2022-02-09 18:17] VITALS: BMI 30.2
[2022-02-09] MEDS ORDERED: SODIUM CHLORIDE 0.9% 1000 ML INFUS.BAG IV ONE (18:41)
[2022-02-09] MEDS ORDERED: ACETAMINOPHEN INJECTION 100 ML IVPB ONE (18:41)
[2022-02-09] MEDS ORDERED: ACETAMINOPHEN 1000 MG/100 ML BAG IVPB ONE (18:41)
[2022-02-09 19:14] LABS: BASO % 0.1 % (0-2.0); HEMATOCRIT 35.5 % (32.4-45.2); HEMOGLOBIN 12.3 GM/dL (10.7-15.3); LYMPH % 7.3 % (8-40); MCH 28.6 pg (25.7-33.7); MCHC 34.7 g/dl (32.0-36.0); MEAN CELL VOLUME 82.3 fl (80-96); MEAN PLT VOLUME 6.9 fl (7.5-11.1); MONO % 3.3 % (3.8-10.2); NEUT % 88.3 % (42.8-82.8); PLATELET COUNT 159 10^3/uL (134-434); RBC 4.32 M/mm3 (3.60-5.2); RDW 13.1 % (11.6-15.6); WHITE BLOOD COUNT 10.7 K/mm3 (4.0-10.0)
[2022-02-09] MEDS ORDERED: VANCOMYCIN 1 GM in D5W (PRE-DOCKED) 1,000 MG/250 ML IVPB ONE (19:17)
[2022-02-09] MEDS ORDERED: PIPERACILLIN/TAZOB 4.5 GM 4.5 GM in DEXTROSE 5%-WATER 100 ML IVPB ONE (19:18)
[2022-02-09 19:21] LABS: INR 1.22 (0.83-1.09); PROTHROMBIN TIME (PATIENT) 14.1 SEC (9.7-13.0)
[2022-02-09] MEDS ORDERED: PIPERACILLIN/TAZOB 4.5 GM 4.5 GM/100 ML BAG IVPB ONE (19:27)
[2022-02-09 19:44] LABS: CALCIUM 8.4 mg/dL (8.5-10.1)
[2022-02-09 19:45] LABS: ALBUMIN 3.7 g/dl (3.4-5.0); BLOOD UREA NITROGEN 12.2 mg/dL (7-18)
[2022-02-09 19:48] LABS: CREATININE 0.8 mg/dL (0.55-1.3)
[2022-02-09 19:50] LABS: BILIRUBIN,TOTAL 0.7 mg/dL (0.2-1); TOT PROT 7.2 g/dl (6.4-8.2)
[2022-02-09] MEDS ORDERED: VANCOMYCIN/WATER FOR INJ (PEG) 1,000 MG/200 ML BAG IVPB ONE (20:21)
[2022-02-09 21:06] LABS: EPI CELLS 2 /uL (0-25.1); HYALINE CASTS 3 /uL (0-3.1); PH,URINE 5.5 (5.0-8.0); URINE APPEARANCE CLOUDY; URINE BACTERIA >9,000 /uL (0-1359); URINE BILIRUBIN NEGATIVE (NEGATIVE); URINE COLOR YELLOW; URINE GLUCOSE (UA) 1+ (NEGATIVE); URINE KETONE TRACE (NEGATIVE); URINE LEUK ESTERASE 2+ (NEGATIVE); URINE NITRITE NEGATIVE (NEGATIVE); URINE PROTEIN TRACE (NEGATIVE); URINE RBC 3 /uL (0-23.9); URINE UROBILINOGEN 0.2 mg/dL (0.2-1.0); URINE WBC 357 /uL (0-25.8)
[2022-02-09 21:08] LABS: VENOUS BASE EXCESS -2.3 mmol/L (-2-2); VENOUS O2 SATURATION 89.8 % (70-80); VENOUS PCO2 52.2 mmHg (38-52); VENOUS PH 7.295 (7.310-7.410)
[2022-02-09] MEDS ORDERED: SODIUM CHLORIDE 0.9% 500 ML INFUS.BAG IV ONE (21:27)
[2022-02-09] MEDS ORDERED: ACETAMINOPHEN 1000 MG/100 ML BAG IVPB PRN (21:37)
[2022-02-09] MEDS ORDERED: IBUPROFEN 600 MG TABLET (FP) PO PRN (21:38)
[2022-02-09 22:25] LABS: METHADONE, UR NEGATIVE (NEGATIVE); PHENCYCLIDINE,URINE NEGATIVE (NEGATIVE); URINE BENZODIAZEPINES NEGATIVE (NEGATIVE)
[2022-02-09 22:26] LABS: COCAINE, UR NEGATIVE (NEGATIVE); OPIATES, URI NEGATIVE (NEGATIVE); URINE AMPHETAMINES NEGATIVE (NEGATIVE); URINE BARBITURATES NEGATIVE (NEGATIVE)
[2022-02-09] MEDS ORDERED: POLYETHYLENE GLYCOL (HEALTHYLAX) 3350 17 GM PACKET ONE (23:15)
[2022-02-09] MEDS ORDERED: CARVEDILOL 3.125 MG TABLET (FP) ONE (23:16)
[2022-02-09] MEDS ORDERED: MEROPENEM 1 GM VIAL (RESTRICTED TO ID) IVPB ONE (23:16)
[2022-02-09] MEDS ORDERED: DULoxetine HCL 30 MG CAPSULE.DR PO ONE (23:16)
[2022-02-09] MEDS ORDERED: busPIRone HCL 5 MG TABLET ONE (23:16)
[2022-02-09] MEDS ORDERED: DOCUSATE SODIUM 100 MG CAPSULE (FP) PO ONE (23:16)
[2022-02-09] MEDS ORDERED: GABAPENTIN 300 MG CAPSULE ONE (23:17)
[2022-02-09] MEDS: traZODone HCL 100 MG TABLET (FP) PO SCH (23:23)
[2022-02-09] MEDS ORDERED: INSULIN (NOVOLOG) ASPART 100 UNITS/ML 10ML VIAL ONE (23:23)
[2022-02-09] MEDS: INSULIN SLIDING SCALE (NOVOLOG) 1 VIAL SQ SCH (23:25)
[2022-02-09] MEDS: GABAPENTIN 300 MG CAPSULE PO SCH (23:38)
[2022-02-09] MEDS: DOCUSATE SODIUM 100 MG CAPSULE (FP) PO SCH (23:38)
[2022-02-09] MEDS: MEROPENEM 1 GM in DEXTROSE 5%-WATER 100 ML IVPB SCH (23:38)
[2022-02-09] MEDS: DULoxetine HCL 60 MG CAPSULE.DR PO SCH (23:38)
[2022-02-09] MEDS: CARVEDILOL 3.125 MG TABLET (FP) PO SCH (23:38)
[2022-02-09] MEDS: POLYETHYLENE GLYCOL (HEALTHYLAX) 3350 17 GM PACKET PO SCH (23:38)
[2022-02-09] MEDS: busPIRone HCL 5 MG TABLET PO SCH (23:38)
[2022-02-10] MEDS: busPIRone HCL 5 MG TABLET PO SCH ×3 (06:05→22:37)
[2022-02-10] MEDS: MEROPENEM 1 GM in DEXTROSE 5%-WATER 100 ML IVPB SCH (06:11)
[2022-02-10] MEDS: DOCUSATE SODIUM 100 MG CAPSULE (FP) PO SCH ×3 (06:29→22:36)
[2022-02-10] MEDS: INSULIN SLIDING SCALE (NOVOLOG) 1 VIAL SQ SCH ×4 (06:40→23:47)
[2022-02-10] MEDS ORDERED: MEROPENEM 1 GM in DEXTROSE 5%-WATER 100 ML IVPB SCH ×2 (07:00→23:00)
[2022-02-10] MEDS ORDERED: DULoxetine HCL 30 MG CAPSULE.DR PO ONE (08:31)
[2022-02-10] MEDS ORDERED: traZODone HCL 50 MG TABLET (FP) ONE (08:31)
[2022-02-10 08:49] LABS: HEMATOCRIT 31.8 % (32.4-45.2); MCH 28.8 pg (25.7-33.7); MCHC 34.7 g/dl (32.0-36.0); MEAN CELL VOLUME 82.8 fl (80-96); MEAN PLT VOLUME 6.7 fl (7.5-11.1); PLATELET COUNT 163 10^3/uL (134-434); RBC 3.83 M/mm3 (3.60-5.2); RDW 13.3 % (11.6-15.6); WHITE BLOOD COUNT 9.4 K/mm3 (4.0-10.0)
[2022-02-10 09:22] LABS: ALBUMIN 3.2 g/dl (3.4-5.0); BLOOD UREA NITROGEN 13.4 mg/dL (7-18); CALCIUM 8.2 mg/dL (8.5-10.1); MAGNESIUM 1.9 mg/dL (1.8-2.4)
[2022-02-10 09:25] LABS: CREATININE 0.6 mg/dL (0.55-1.3); PHOSPHOROUS 3.5 mg/dL (2.5-4.9)
[2022-02-10 09:27] LABS: BILIRUBIN,TOTAL 1.5 mg/dL (0.2-1); TOT PROT 6.4 g/dl (6.4-8.2)
[2022-02-10] MEDS: PANTOPRAZOLE 40 MG TABLET PO SCH (09:57)
[2022-02-10] MEDS: SODIUM BICARBONATE 650 MG TABLET PO SCH (09:57)
[2022-02-10] MEDS: POLYETHYLENE GLYCOL (HEALTHYLAX) 3350 17 GM PACKET PO SCH ×2 (09:58→22:37)
[2022-02-10] MEDS: CARVEDILOL 3.125 MG TABLET (FP) PO SCH ×2 (09:59→22:36)
[2022-02-10] MEDS: QUEtiapine FUMARATE 50 MG TABLET PO SCH (09:59)
[2022-02-10] MEDS: GABAPENTIN 300 MG CAPSULE PO SCH ×4 (09:59→22:40)
[2022-02-10] MEDS: traZODone HCL 100 MG TABLET (FP) PO SCH (10:00)
[2022-02-10] MEDS: DULoxetine HCL 60 MG CAPSULE.DR PO SCH (10:00)
[2022-02-10] MEDS ORDERED: PATIENT'S OWN MEDICATION (NON-FORMULARY) (Omeprazole/Sodium Bicarbonate [Omeprazole-Bicarb PO SCH (10:00)
[2022-02-10] MEDS: CEFTRIAXONE 1 GM in DEXTROSE 5%-WATER - 50 ML IVPB SCH (11:20)
[2022-02-10] MEDS ORDERED: ACETAMINOPHEN 325 MG TABLET (FP) PO PRN (17:36)
[2022-02-10] MEDS ORDERED: SENNOSIDES 8.6MG TABLET (FP) PO PRN (18:18)
[2022-02-10] MEDS: MIRTAZAPINE 15 MG TABLET (FP) PO SCH (22:36)
[2022-02-10] MEDS: HEPARIN NA (PORCINE) 5,000 UNITS/ML 1ML VIAL SQ SCH (22:39)
[2022-02-10] MEDS: oxyCODONE HCL 5 MG TABLET PO PRN (22:58)
[2022-02-10] MEDS ORDERED: INSULIN (NOVOLOG) ASPART 100 UNITS/ML 10ML VIAL ONE (23:46)
[2022-02-11] MEDS: clonazePAM 0.5 MG TABLET PO PRN ×3 (00:59→21:53)
[2022-02-11] MEDS: DOCUSATE SODIUM 100 MG CAPSULE (FP) PO SCH ×3 (05:57→21:40)
[2022-02-11] MEDS: busPIRone HCL 5 MG TABLET PO SCH ×3 (05:57→21:40)
[2022-02-11] MEDS: INSULIN SLIDING SCALE (NOVOLOG) 1 VIAL SQ SCH ×4 (06:35→21:42)
[2022-02-11] MEDS: QUEtiapine FUMARATE 50 MG TABLET PO SCH (06:36)
[2022-02-11 09:05] LABS: BASO % 0.4 % (0-2.0); HEMATOCRIT 31.6 % (32.4-45.2); LYMPH % 23.7 % (8-40); MCH 28.7 pg (25.7-33.7); MCHC 34.7 g/dl (32.0-36.0); MEAN CELL VOLUME 82.8 fl (80-96); MEAN PLT VOLUME 7.3 fl (7.5-11.1); MONO % 7.8 % (3.8-10.2); NEUT % 64.1 % (42.8-82.8); PLATELET COUNT 173 10^3/uL (134-434); RBC 3.82 M/mm3 (3.60-5.2); RDW 13.1 % (11.6-15.6); WHITE BLOOD COUNT 4.6 K/mm3 (4.0-10.0)
[2022-02-11 09:59] LABS: CALCIUM 8.6 mg/dL (8.5-10.1)
[2022-02-11 10:00] LABS: ALBUMIN 3.2 g/dl (3.4-5.0); BLOOD UREA NITROGEN 9.6 mg/dL (7-18)
[2022-02-11 10:03] LABS: CREATININE 0.6 mg/dL (0.55-1.3)
[2022-02-11 10:04] LABS: BILIRUBIN,TOTAL 0.6 mg/dL (0.2-1); TOT PROT 6.6 g/dl (6.4-8.2)
[2022-02-11] MEDS ORDERED: traZODone HCL 50 MG TABLET (FP) ONE (10:22)
[2022-02-11] MEDS: PANTOPRAZOLE 40 MG TABLET PO SCH (10:25)
[2022-02-11] MEDS: CEFTRIAXONE 1 GM in DEXTROSE 5%-WATER - 50 ML IVPB SCH (10:25)
[2022-02-11] MEDS: SODIUM BICARBONATE 650 MG TABLET PO SCH (10:26)
[2022-02-11] MEDS: CARVEDILOL 3.125 MG TABLET (FP) PO SCH ×2 (10:26→21:40)
[2022-02-11] MEDS: DULoxetine HCL 30 MG CAPSULE.DR PO SCH (10:26)
[2022-02-11] MEDS: traZODone HCL 100 MG TABLET (FP) PO SCH (10:26)
[2022-02-11] MEDS: GABAPENTIN 300 MG CAPSULE PO SCH ×4 (10:27→21:40)
[2022-02-11] MEDS: POLYETHYLENE GLYCOL (HEALTHYLAX) 3350 17 GM PACKET PO SCH ×2 (10:27→21:41)
[2022-02-11] MEDS: HEPARIN NA (PORCINE) 5,000 UNITS/ML 1ML VIAL SQ SCH ×2 (10:27→21:40)
[2022-02-11] MEDS: oxyCODONE HCL 5 MG TABLET PO PRN ×2 (11:38→21:53)
[2022-02-11] MEDS: MIRTAZAPINE 15 MG TABLET (FP) PO SCH (21:40)
[2022-02-12] MEDS: busPIRone HCL 5 MG TABLET PO SCH ×3 (05:57→22:29)
[2022-02-12] MEDS: DOCUSATE SODIUM 100 MG CAPSULE (FP) PO SCH ×3 (05:57→22:29)
[2022-02-12] MEDS: QUEtiapine FUMARATE 50 MG TABLET PO SCH (06:05)
[2022-02-12] MEDS: oxyCODONE HCL 5 MG TABLET PO PRN ×2 (06:08→12:21)
[2022-02-12] MEDS: INSULIN SLIDING SCALE (NOVOLOG) 1 VIAL SQ SCH ×4 (07:05→22:31)
[2022-02-12] MEDS ORDERED: traZODone HCL 50 MG TABLET (FP) ONE (10:08)
[2022-02-12 10:34] LABS: BASO % 0.7 % (0-2.0); EOS % 3.6 % (0-4.5); HEMATOCRIT 31.3 % (32.4-45.2); LYMPH % 31.2 % (8-40); MCH 28.8 pg (25.7-33.7); MCHC 35.1 g/dl (32.0-36.0); MEAN CELL VOLUME 81.9 fl (80-96); MEAN PLT VOLUME 7.3 fl (7.5-11.1); MONO % 7.2 % (3.8-10.2); NEUT % 57.3 % (42.8-82.8); PLATELET COUNT 184 10^3/uL (134-434); RBC 3.82 M/mm3 (3.60-5.2)
[2022-02-12 10:58] LABS: ALBUMIN 3.2 g/dl (3.4-5.0); BLOOD UREA NITROGEN 9.6 mg/dL (7-18); CALCIUM 8.4 mg/dL (8.5-10.1)
[2022-02-12] MEDS: GABAPENTIN 300 MG CAPSULE PO SCH ×4 (11:00→22:29)
[2022-02-12 11:01] LABS: CREATININE 0.7 mg/dL (0.55-1.3)
[2022-02-12 11:03] LABS: BILIRUBIN,TOTAL 0.6 mg/dL (0.2-1); TOT PROT 6.6 g/dl (6.4-8.2)
[2022-02-12] MEDS: CEFTRIAXONE 1 GM in DEXTROSE 5%-WATER - 50 ML IVPB SCH (12:13)
[2022-02-12] MEDS: clonazePAM 0.5 MG TABLET PO PRN (12:14)
[2022-02-12] MEDS: DULoxetine HCL 30 MG CAPSULE.DR PO SCH (12:14)
[2022-02-12] MEDS: CARVEDILOL 3.125 MG TABLET (FP) PO SCH ×2 (12:14→22:30)
[2022-02-12] MEDS: SODIUM BICARBONATE 650 MG TABLET PO SCH (12:14)
[2022-02-12] MEDS: PANTOPRAZOLE 40 MG TABLET PO SCH (12:14)
[2022-02-12] MEDS: HEPARIN NA (PORCINE) 5,000 UNITS/ML 1ML VIAL SQ SCH ×2 (12:15→22:34)
[2022-02-12] MEDS: traZODone HCL 100 MG TABLET (FP) PO SCH (12:15)
[2022-02-12] MEDS: POLYETHYLENE GLYCOL (HEALTHYLAX) 3350 17 GM PACKET PO SCH ×2 (12:15→22:34)
[2022-02-12] MEDS ORDERED: ATORVASTATIN CA 40 MG TABLET (FP) PO SCH (22:00)
[2022-02-12] MEDS: MIRTAZAPINE 15 MG TABLET (FP) PO SCH (22:30)
[2022-02-13] MEDS: clonazePAM 0.5 MG TABLET PO PRN ×2 (00:08→10:10)
[2022-02-13] MEDS: oxyCODONE HCL 5 MG TABLET PO PRN ×2 (00:09→10:09)
[2022-02-13] MEDS: busPIRone HCL 5 MG TABLET PO SCH (06:11)
[2022-02-13] MEDS: QUEtiapine FUMARATE 50 MG TABLET PO SCH (06:11)
[2022-02-13] MEDS: DOCUSATE SODIUM 100 MG CAPSULE (FP) PO SCH (06:11)
[2022-02-13] MEDS: INSULIN SLIDING SCALE (NOVOLOG) 1 VIAL SQ SCH (06:13)
[2022-02-13] MEDS ORDERED: traZODone HCL 50 MG TABLET (FP) ONE (09:39)
[2022-02-13] MEDS ORDERED: ASPIRIN COATED 81 MG TABLET.EC PO SCH (10:00)
[2022-02-13] MEDS: DULoxetine HCL 30 MG CAPSULE.DR PO SCH (10:09)
[2022-02-13] MEDS: GABAPENTIN 300 MG CAPSULE PO SCH (10:10)
[2022-02-13] MEDS: HEPARIN NA (PORCINE) 5,000 UNITS/ML 1ML VIAL SQ SCH (10:10)
[2022-02-13] MEDS: SODIUM BICARBONATE 650 MG TABLET PO SCH (10:10)
[2022-02-13] MEDS: traZODone HCL 100 MG TABLET (FP) PO SCH (10:10)
[2022-02-13] MEDS: PANTOPRAZOLE 40 MG TABLET PO SCH (10:10)
[2022-02-13] MEDS: CARVEDILOL 3.125 MG TABLET (FP) PO SCH (10:10)
[2022-02-13] MEDS: POLYETHYLENE GLYCOL (HEALTHYLAX) 3350 17 GM PACKET PO SCH (10:11)
[2022-02-13] MEDS: CEFTRIAXONE 1 GM in DEXTROSE 5%-WATER - 50 ML IVPB SCH (10:11)
[2022-02-13] MEDS ORDERED: INSULIN (LEVEMIR) 100 UNITS/ML UNITS SQ ONE (10:26)
[2022-02-13] MEDS ORDERED: INSULIN SLIDING SCALE (NOVOLOG) 1 VIAL SQ SCH (11:00)
[2022-02-13 13:50] VITALS: BP 144/72; PULSE 66; RESP 20; TEMP 98.2
== END 2022-02-13 13:51 | disposition home or self-care (01) | DRG 871 ==
LOC: JER 17:47 → JERBED 20:23 → J7W 02-10 01:30
PROVIDERS: ADMIT Internal Medicine; ATTEND Nurse Practitioner Family
DX: A41.9 Sepsis, unspecified organism (principal); G92.8 Other toxic encephalopathy; I50.22 Chronic systolic (congestive) heart failure; E27.40 Unspecified adrenocortical insufficiency; N39.0 Urinary tract infection, site not specified; F50.02 Anorexia nervosa, binge eating/purging type; J44.9 Chronic obstructive pulmonary disease, unspecified; D72.829 Elevated white blood cell count, unspecified; E11.65 Type 2 diabetes mellitus with hyperglycemia; I11.0 Hypertensive heart disease with heart failure; I25.10 Atherosclerotic heart disease of native coronary artery without angina pectoris; E78.5 Hyperlipidemia, unspecified; F41.8 Other specified anxiety disorders; F12.90 Cannabis use, unspecified, uncomplicated; E11.649 Type 2 diabetes mellitus with hypoglycemia without coma; Z98.61 Coronary angioplasty status
CPT/HCPCS: 36415; 71045-TC-FY; 76775-TC; 80053; 80307; 81003; 82803; 82962; 83036; 83605; 83735; 84100; 84484; 85025; 85027; 85610; 85730; 86850; 86900; 86901; 87040; 87086; 87186; 93005; 93010; 94761; 97116-GP; 97162-GP; 99285-25; C9803-CS; J1644; U0003; U0005

== ENCOUNTER 2022-03-04 23:21 | Emergency (ER) | payer OTHER ==
[2022-03-04 23:28] VITALS: BMI 32.1
[2022-03-05] MEDS ORDERED: MAG HYDROX/AL HYDROX/SIMETH 30 ML UNIT-DOSE CUP PO ONE (00:21)
[2022-03-05] MEDS ORDERED: FAMOTIDINE 20 MG/50 ML IVPB 20 MG/50 ML MG IVPB ONE ×2 (00:21→01:20)
[2022-03-05] MEDS ORDERED: ACETAMINOPHEN 1000 MG/100 ML BAG IVPB ONE (00:21)
[2022-03-05] MEDS ORDERED: MAG HYDROX/AL HYDROX/SIMETH 30 ML UNIT-DOSE CUP ONE (01:20)
[2022-03-05] MEDS ORDERED: ACETAMINOPHEN INJECTION 100 ML IVPB ONE (01:20)
[2022-03-05 01:33] LABS: BASO % 0.5 % (0-2.0); EOS % 1.1 % (0-4.5); HEMATOCRIT 33.9 % (32.4-45.2); LYMPH % 11.8 % (8-40); MCHC 35.4 g/dl (32.0-36.0); MEAN PLT VOLUME 6.9 fl (7.5-11.1); MONO % 5.5 % (3.8-10.2); NEUT % 81.1 % (42.8-82.8); PLATELET COUNT 132 10^3/uL (134-434); RBC 4.14 M/mm3 (3.60-5.2); RDW 12.7 % (11.6-15.6); WHITE BLOOD COUNT 9.2 K/mm3 (4.0-10.0)
[2022-03-05 01:39] LABS: INR 1.15 (0.83-1.09); PROTHROMBIN TIME (PATIENT) 13.3 SEC (9.7-13.0)
[2022-03-05 01:42] LABS: ACTIVATED PTT 27.3 SECONDS (25.2-36.5)
[2022-03-05 01:54] LABS: ALBUMIN 3.5 g/dl (3.4-5.0); CALCIUM 8.2 mg/dL (8.5-10.1)
[2022-03-05] MEDS ORDERED: morphine CARPU-JECT 4 MG/1 ML DISP.SYRIN IVPUSH ONE (01:55)
[2022-03-05 01:57] LABS: CREATININE 0.8 mg/dL (0.55-1.3)
[2022-03-05 01:59] LABS: BILIRUBIN,TOTAL 0.4 mg/dL (0.2-1); TOT PROT 6.8 g/dl (6.4-8.2)
[2022-03-05 02:04] LABS: BLOOD UREA NITROGEN 7.9 mg/dL (7-18)
[2022-03-05] MEDS ORDERED: morphine SULFATE 4 MG/ML VIAL ONE (02:13)
[2022-03-05 05:25] LABS: EPI CELLS 16 /uL (0-25.1); HYALINE CASTS 0 /uL (0-3.1); URINE APPEARANCE CLEAR; URINE BACTERIA 578 /uL (0-1359); URINE BILIRUBIN NEGATIVE (NEGATIVE); URINE COLOR YELLOW; URINE GLUCOSE (UA) 1+ (NEGATIVE); URINE KETONE NEGATIVE (NEGATIVE); URINE LEUK ESTERASE 1+ (NEGATIVE); URINE NITRITE NEGATIVE (NEGATIVE); URINE PROTEIN NEGATIVE (NEGATIVE); URINE RBC 1 /uL (0-23.9); URINE UROBILINOGEN 0.2 mg/dL (0.2-1.0); URINE WBC 20 /uL (0-25.8)
[2022-03-05] MEDS ORDERED: CEFTRIAXONE 1,000 MG in DEXTROSE 5%-WATER - 50 ML IVPB ONE (06:21)
[2022-03-05] MEDS ORDERED: CEFTRIAXONE 1 GM/50 ML BAG ONE (06:31)
[2022-03-05 08:13] VITALS: BP 152/70; PULSE 69; RESP 18; TEMP 98
== END 2022-03-05 08:00 | disposition home or self-care (01) ==
LOC: JER 23:21
PROC: 3E0333Z Introduction of Anti-inflammatory into Peripheral Vein, Percutaneous Approach (ICD-10-PCS; principal; 2022-03-04)
PROC: 3E03329 Introduction of Other Anti-infective into Peripheral Vein, Percutaneous Approach (ICD-10-PCS; 2022-03-04)
PROC: 3E033GC Introduction of Other Therapeutic Substance into Peripheral Vein, Percutaneous Approach (ICD-10-PCS; 2022-03-04)
PROC: 3E033NZ Introduction of Analgesics, Hypnotics, Sedatives into Peripheral Vein, Percutaneous Approach (ICD-10-PCS; 2022-03-04)
DX: N39.0 Urinary tract infection, site not specified (principal)
CPT/HCPCS: 36415; 71275-TC; 74174-TC; 80053; 81003; 83690; 84484; 85025; 85610; 85730; 87086; 87186; 93005; 93010; 99285-25; C9803-CS; Q9967; U0003; U0005

== ENCOUNTER 2022-07-05 23:40 | Emergency (ER) | payer OTHER ==
[2022-07-06 00:01] VITALS: TEMP 97.6; BMI 26.4
[2022-07-06] MEDS ORDERED: ACETAMINOPHEN 1000 MG/100 ML BAG IVPB ONE (00:11)
[2022-07-06] MEDS ORDERED: FAMOTIDINE 20 MG TABLET PO ONE (00:11)
[2022-07-06] MEDS ORDERED: ACETAMINOPHEN INJECTION 100 ML IVPB ONE (00:13)
[2022-07-06] MEDS ORDERED: FAMOTIDINE 20 MG TABLET ONE (00:13)
[2022-07-06 01:33] LABS: HEMATOCRIT 36.9 % (32.4-45.2); HEMOGLOBIN 12.4 GM/dL (10.7-15.3); MCH 27.8 pg (25.7-33.7); MCHC 33.6 g/dl (32.0-36.0); MEAN CELL VOLUME 82.6 fl (80-96); MEAN PLT VOLUME 7.4 fl (7.5-11.1); PLATELET COUNT 233 10^3/uL (134-434); RBC 4.47 M/mm3 (3.60-5.2); RDW 13.2 % (11.6-15.6)
[2022-07-06 02:02] LABS: ALBUMIN 3.7 g/dl (3.4-5.0); BILIRUBIN,TOTAL 0.6 mg/dL (0.2-1); BLOOD UREA NITROGEN 9.3 mg/dL (7-18); CALCIUM 8.5 mg/dL (8.5-10.1); CREATININE 0.9 mg/dL (0.55-1.3); TOT PROT 7.2 g/dl (6.4-8.2)
[2022-07-06 04:27] LABS: EPI CELLS 6 /uL (0-25.1); HYALINE CASTS 0 /uL (0-3.1); PH,URINE 5.5 (5.0-8.0); URINE APPEARANCE CLOUDY; URINE BACTERIA 4818 /uL (0-1359); URINE BILIRUBIN NEGATIVE (NEGATIVE); URINE COLOR YELLOW; URINE GLUCOSE (UA) NEGATIVE (NEGATIVE); URINE KETONE NEGATIVE (NEGATIVE); URINE LEUK ESTERASE 3+ (NEGATIVE); URINE NITRITE NEGATIVE (NEGATIVE); URINE PROTEIN TRACE (NEGATIVE); URINE RBC 20 /uL (0-23.9); URINE UROBILINOGEN 0.2 mg/dL (0.2-1.0); URINE WBC 1318 /uL (0-25.8)
[2022-07-06] MEDS ORDERED: PHENAZOPYRIDINE HCL 100 MG TABLET (FP) PO ONE (06:36)
[2022-07-06] MEDS ORDERED: NITROFURANTOIN MACROCRYSTAL 50 MG CAPSULE (FP) ONE (06:40)
[2022-07-06] MEDS ORDERED: PHENAZOPYRIDINE HCL 100 MG TABLET (FP) ONE (06:40)
[2022-07-06] MEDS ORDERED: NITROFURANTOIN MACROCRYSTAL 50 MG CAPSULE (FP) PO SCH (06:45)
[2022-07-06 06:55] VITALS: BP 117/67; PULSE 60; RESP 18
== END 2022-07-06 07:10 | disposition home or self-care (01) ==
LOC: FER 23:40
PROC: 3E0333Z Introduction of Anti-inflammatory into Peripheral Vein, Percutaneous Approach (ICD-10-PCS; principal; 2022-07-05)
DX: N30.00 Acute cystitis without hematuria (principal)
CPT/HCPCS: 36415; 80053; 81003; 82550; 83690; 84484; 85027; 87086; 87186; 93005; 99284-25

== ENCOUNTER 2022-08-31 19:27 | Observation (INO) | payer OTHER ==
[2022-08-31 19:50] VITALS: BMI 26.4
[2022-08-31] MEDS ORDERED: ONDANSETRON 4 MG/2 ML VIAL IVPUSH ONE (23:49)
[2022-09-01] MEDS ORDERED: ONDANSETRON 4 MG/2 ML VIAL ONE
[2022-09-01 00:33] LABS: BASO % 0.6 % (0-2.0); EOS % 3.3 % (0-4.5); HEMATOCRIT 38.2 % (32.4-45.2); HEMOGLOBIN 13.7 GM/dL (10.7-15.3); LYMPH % 29.4 % (8-40); MCH 29.7 pg (25.7-33.7); MCHC 35.9 g/dl (32.0-36.0); MEAN CELL VOLUME 82.6 fl (80-96); MEAN PLT VOLUME 7.4 fl (7.5-11.1); MONO % 5.3 % (3.8-10.2); NEUT % 61.4 % (42.8-82.8); PLATELET COUNT 181 10^3/uL (134-434); RBC 4.63 M/mm3 (3.60-5.2); RDW 12.9 % (11.6-15.6); WHITE BLOOD COUNT 5.5 K/mm3 (4.0-10.0)
[2022-09-01 00:40] LABS: INR 1.11 (0.83-1.09); PROTHROMBIN TIME (PATIENT) 12.9 SEC (9.7-13.0)
[2022-09-01 00:43] LABS: ACTIVATED PTT 31.4 SECONDS (25.2-36.5)
[2022-09-01 00:52] LABS: CALCIUM 8.6 mg/dL (8.5-10.1)
[2022-09-01 00:55] LABS: CREATININE 0.8 mg/dL (0.55-1.3)
[2022-09-01 00:57] LABS: BILIRUBIN,TOTAL 0.8 mg/dL (0.2-1); TOT PROT 7.4 g/dl (6.4-8.2)
[2022-09-01 01:00] LABS: N-TERMINAL BNP 174.2 pg/ml (5-125)
[2022-09-01 01:55] VITALS: RESP 20
[2022-09-01] MEDS ORDERED: ACETAMINOPHEN 325 MG TABLET (FP) PO PRN (02:55)
[2022-09-01] MEDS ORDERED: ALBUTEROL SO4 HFA INHALER IH PRN (03:41)
[2022-09-01] MEDS ORDERED: LORazepam 1 MG TABLET PO PRN (03:41)
[2022-09-01] MEDS ORDERED: IBUPROFEN 400 MG TABLET (FP) PO PRN (03:42)
[2022-09-01] MEDS ORDERED: ALBUTEROL SO4 2.5/IPRATROPIUM 0.5 INH SOL 3 ML VIAL.NEB. NEB PRN (05:19)
[2022-09-01] MEDS ORDERED: CYCLOBENZAPRINE HCL 5 MG TABLET PO ONE (05:59)
[2022-09-01] MEDS ORDERED: GABAPENTIN 300 MG CAPSULE PO SCH (06:00)
[2022-09-01] MEDS ORDERED: CYCLOBENZAPRINE HCL 5 MG TABLET ONE (06:31)
[2022-09-01] MEDS ORDERED: GABAPENTIN 300 MG CAPSULE ONE (06:31)
[2022-09-01] MEDS ORDERED: sitaGLIPtin PHOSPHATE 50 MG TABLET PO SCH (07:00)
[2022-09-01 07:27] VITALS: BP 153/74; PULSE 68; TEMP 97.3
[2022-09-01] MEDS: INSULIN SLIDING SCALE (NOVOLOG) 1 VIAL SQ SCH ×2 (07:40→11:15)
[2022-09-01 08:09] LABS: HEMATOCRIT 37.8 % (32.4-45.2); HEMOGLOBIN 13.7 GM/dL (10.7-15.3); MCH 29.9 pg (25.7-33.7); MCHC 36.3 g/dl (32.0-36.0); MEAN CELL VOLUME 82.4 fl (80-96); MEAN PLT VOLUME 8.3 fl (7.5-11.1); PLATELET COUNT 188 10^3/uL (134-434); RBC 4.59 M/mm3 (3.60-5.2); RDW 12.9 % (11.6-15.6); WHITE BLOOD COUNT 5.9 K/mm3 (4.0-10.0)
[2022-09-01 08:30] LABS: CALCIUM 8.8 mg/dL (8.5-10.1)
[2022-09-01 08:31] LABS: ALBUMIN 4.2 g/dl (3.4-5.0); BLOOD UREA NITROGEN 8.5 mg/dL (7-18); MAGNESIUM 1.9 mg/dL (1.8-2.4)
[2022-09-01 08:33] LABS: CREATININE 0.7 mg/dL (0.55-1.3)
[2022-09-01 08:35] LABS: TOT PROT 7.6 g/dl (6.4-8.2)
[2022-09-01] MEDS ORDERED: methylPREDNISolone NA SUCC 40 MG/1 ML VIAL IVPUSH SCH (09:00)
[2022-09-01] MEDS ORDERED: DULoxetine HCL 30 MG CAPSULE.DR PO ONE (09:29)
[2022-09-01] MEDS ORDERED: CARVEDILOL 6.25 MG TABLET (FP) ONE (09:29)
[2022-09-01] MEDS ORDERED: methylPREDNISolone NA SUCC 40 MG/1 ML VIAL ONE (09:30)
[2022-09-01] MEDS ORDERED: ENOXAPARIN NA (PORCINE) 40 MG/0.4 ML DISP.SYRIN SQ ONE (09:30)
[2022-09-01] MEDS ORDERED: ENOXAPARIN NA (PORCINE) 40 MG/0.4 ML DISP.SYRIN SQ SCH (10:00)
[2022-09-01] MEDS ORDERED: CARVEDILOL 6.25 MG TABLET (FP) PO SCH (10:00)
[2022-09-01] MEDS ORDERED: LIDOCAINE 5% TOPICAL PATCH TP SCH (10:00)
[2022-09-01] MEDS ORDERED: BUDESONIDE/FORMETEROL FUMARATE 160/4.5 mcg INHALER IH SCH (10:00)
[2022-09-01] MEDS ORDERED: busPIRone HCL 10 MG TABLET (FP) PO SCH (10:00)
[2022-09-01] MEDS ORDERED: DULoxetine HCL 30 MG CAPSULE.DR PO SCH (10:00)
[2022-09-01] MEDS ORDERED: LIDOCAINE 5% TOPICAL PATCH ONE (10:23)
[2022-09-01] MEDS ORDERED: INSULIN (NOVOLOG) ASPART 100 UNITS/ML 10ML VIAL SQ SCH (12:00)
[2022-09-01] MEDS ORDERED: SODIUM PHOSPHATE/NA BIPHOS 133 ML ENEMA RC ONE (12:11)
[2022-09-01] MEDS ORDERED: SENNOSIDES 8.6MG TABLET (FP) PO SCH (12:15)
[2022-09-01] MEDS ORDERED: POLYETHYLENE GLYCOL (HEALTHYLAX) 3350 17 GM PACKET PO SCH (12:15)
[2022-09-01] MEDS ORDERED: DOCUSATE SODIUM 100 MG CAPSULE (FP) PO SCH (14:00)
[2022-09-01] MEDS ORDERED: ATORVASTATIN CA 80 MG TABLET (FP) PO SCH (22:00)
[2022-09-01] MEDS ORDERED: LIDOCAINE PATCH REMOVAL MC SCH (22:00)
[2022-09-01] MEDS ORDERED: QUEtiapine FUMARATE 25 MG TABLET PO SCH (22:00)
== END 2022-09-01 12:00 | disposition left against medical advice (07) ==
LOC: JERFT 19:27 → JERBED 09-01 02:16
PROVIDERS: ADMIT Internal Medicine
PROC: 3E033GC Introduction of Other Therapeutic Substance into Peripheral Vein, Percutaneous Approach (ICD-10-PCS; principal; 2022-09-01)
DX: R07.89 Other chest pain (principal); R06.02 Shortness of breath; R10.9 Unspecified abdominal pain; I11.0 Hypertensive heart disease with heart failure; I50.9 Heart failure, unspecified; I25.10 Atherosclerotic heart disease of native coronary artery without angina pectoris; I25.2 Old myocardial infarction; E11.65 Type 2 diabetes mellitus with hyperglycemia; E78.5 Hyperlipidemia, unspecified; J44.9 Chronic obstructive pulmonary disease, unspecified; F41.9 Anxiety disorder, unspecified; F32.A Depression, unspecified; Z95.0 Presence of cardiac pacemaker; Z95.5 Presence of coronary angioplasty implant and graft; G47.33 Obstructive sleep apnea (adult) (pediatric); Z99.89 Dependence on other enabling machines and devices
CPT/HCPCS: 36415; 71046-TC-FY; 71250-TC; 76705-TC; 80053; 82962; 83690; 83735; 83880; 84100; 84484; 85025; 85027; 85610; 85730; 86140; 93005; 93010; 96365; 99285-25; C9803-CS; G0378; U0003; U0005

== ENCOUNTER 2023-01-19 22:16 | Observation (INO) | payer OTHER ==
[2023-01-19 23:50] LABS: VENOUS BASE EXCESS 0.6 mmol/L (-2-2); VENOUS O2 SATURATION 89.3 % (70-80); VENOUS PCO2 51.2 mmHg (38-52); VENOUS PH 7.342 (7.310-7.410)
[2023-01-19 23:51] LABS: BASO % 0.6 % (0-2.0); EOS % 5.6 % (0-4.5); HEMATOCRIT 37.9 % (32.4-45.2); HEMOGLOBIN 13.1 GM/dL (10.7-15.3); LYMPH % 23.8 % (8-40); MCHC 34.5 g/dl (32.0-36.0); MEAN CELL VOLUME 84.2 fl (80-96); MEAN PLT VOLUME 7.5 fl (7.5-11.1); MONO % 5.4 % (3.8-10.2); NEUT % 64.6 % (42.8-82.8); PLATELET COUNT 198 10^3/uL (134-434); RBC 4.51 M/mm3 (3.60-5.2); RDW 14.2 % (11.6-15.6); WHITE BLOOD COUNT 6.6 K/mm3 (4.0-10.0)
[2023-01-20 00:17] LABS: CHLORIDE 100 mmol/L (98-107); SODIUM 142 mmol/L (136-145)
[2023-01-20 00:18] LABS: ACTIVATED PTT 25.2 SECONDS (25.2-36.5); INR 1.05 (0.83-1.09); PROTHROMBIN TIME (PATIENT) 12.2 SEC (9.7-13.0)
[2023-01-20 00:19] LABS: ALBUMIN 3.5 g/dl (3.4-5.0); CALCIUM 8.7 mg/dL (8.5-10.1)
[2023-01-20 00:20] LABS: BLOOD UREA NITROGEN 6.8 mg/dL (7-18); CO2 29 mmol/L (21-32); GLUCOSE,RANDOM 221 mg/dL (74-106); LIPASE 38 U/L (73-393); MAGNESIUM 1.7 mg/dL (1.8-2.4)
[2023-01-20 00:22] LABS: CREATININE 0.9 mg/dL (0.55-1.3)
[2023-01-20 00:23] LABS: SGOT/AST 17 U/L (15-37); SGPT/ALT 18 U/L (13-61)
[2023-01-20 00:25] LABS: ALK PHOS 152 U/L (45-117)
[2023-01-20 00:26] LABS: LACTIC ACID 4.5 mmol/L (0.4-2.0)
[2023-01-20 00:28] LABS: N-TERMINAL BNP 267.7 pg/ml (5-125)
[2023-01-20 00:50] LABS: ANION GAP 12 MMOL/L (8-16); BILIRUBIN,TOTAL 0.4 mg/dL (0.2-1); POTASSIUM 2.7 mmol/L (3.5-5.1)
[2023-01-20] MEDS ORDERED: POTASSIUM CHLORIDE TABS 20 MEQ TABLET.ER (FP) PO ONE ×2 (00:57→01:03)
[2023-01-20] MEDS ORDERED: LACTATED RINGERS SOLUTION 1000 ML INFUS.BAG IV ONE (00:57)
[2023-01-20] MEDS ORDERED: MAGNESIUM SULF 50% (8.12 MEQ/2 ML-1 GM VIAL) IVPB ONE (00:58)
[2023-01-20] MEDS ORDERED: MAGNESIUM 1GM/D5W - 1 GM/100 ML IVPB IVPB ONE (01:03)
[2023-01-20] MEDS: KCL 10 MEQ IVPB 10 MEQ/100 ML INFUS.BAG IVPB SCH ×3 (01:17→06:31)
[2023-01-20] MEDS ORDERED: KCL 10 MEQ IVPB 10 MEQ/100 ML INFUS.BAG IVPB ONE ×2 (02:25→06:22)
[2023-01-20] MEDS ORDERED: ACETAMINOPHEN 325 MG TABLET (FP) PO ONE (04:47)
[2023-01-20] MEDS ORDERED: ACETAMINOPHEN 325 MG TABLET (FP) ONE (04:54)
[2023-01-20 06:42] LABS: EPI CELLS >36 /uL (0-25.1); HYALINE CASTS 1 /uL (0-3.1); PH,URINE 5.5 (5.0-8.0); URINE APPEARANCE TURBID; URINE BACTERIA 5048 /uL (0-1359); URINE BILIRUBIN NEGATIVE (NEGATIVE); URINE COLOR YELLOW; URINE GLUCOSE (UA) NEGATIVE (NEGATIVE); URINE KETONE NEGATIVE (NEGATIVE); URINE LEUK ESTERASE 3+ (NEGATIVE); URINE NITRITE NEGATIVE (NEGATIVE); URINE PROTEIN NEGATIVE (NEGATIVE); URINE RBC 30 /uL (0-23.9); URINE UROBILINOGEN 0.2 mg/dL (0.2-1.0); URINE WBC 1680 /uL (0-25.8)
[2023-01-20] MEDS ORDERED: KETOROLAC TROMETHAMINE 15 MG/ML VIAL IVPUSH ONE ×2 (06:52→07:25)
[2023-01-20] MEDS ORDERED: CEFTRIAXONE 1,000 MG in DEXTROSE 5%-WATER - 50 ML IVPB ONE (06:52)
[2023-01-20] MEDS ORDERED: SENNOSIDES 8.6MG TABLET (FP) PO PRN (07:12)
[2023-01-20] MEDS ORDERED: ACETAMINOPHEN 325 MG TABLET (FP) PO PRN (07:12)
[2023-01-20] MEDS ORDERED: ALBUTEROL SO4 HFA INHALER IH PRN (07:49)
[2023-01-20 08:16] LABS: HEMOGLOBIN 12.6 GM/dL (10.7-15.3); MCH 29.2 pg (25.7-33.7); MCHC 34.1 g/dl (32.0-36.0); MEAN CELL VOLUME 85.6 fl (80-96); MEAN PLT VOLUME 7.3 fl (7.5-11.1); PLATELET COUNT 186 10^3/uL (134-434); RBC 4.32 M/mm3 (3.60-5.2)
[2023-01-20 08:23] LABS: POTASSIUM 3.4 mmol/L (3.5-5.1)
[2023-01-20 08:25] LABS: CALCIUM 8.4 mg/dL (8.5-10.1)
[2023-01-20 08:26] LABS: ALBUMIN 3.2 g/dl (3.4-5.0)
[2023-01-20 08:27] LABS: MAGNESIUM 2.1 mg/dL (1.8-2.4)
[2023-01-20 08:29] LABS: CREATININE 0.7 mg/dL (0.55-1.3); PHOSPHOROUS 3.8 mg/dL (2.5-4.9)
[2023-01-20 08:30] LABS: BILIRUBIN,TOTAL 0.6 mg/dL (0.2-1); TOT PROT 6.3 g/dl (6.4-8.2)
[2023-01-20] MEDS ORDERED: ALBUTEROL SO4 2.5/IPRATROPIUM 0.5 INH SOL 3 ML VIAL.NEB. NEB ONE ×2 (08:30→08:35)
[2023-01-20] MEDS ORDERED: POTASSIUM CHLORIDE ORAL LIQUID 20 MEQ/15 ML PO ONE (08:30)
[2023-01-20] MEDS ORDERED: CEFTRIAXONE 1 GM/50 ML BAG ONE (08:36)
[2023-01-20 09:21] LABS: LACTIC ACID 3.3 mmol/L (0.4-2.0)
[2023-01-20] MEDS ORDERED: LACTATED RINGERS SOLUTION 1,000 ML/1,000 ML INFUS.BAG IV SCH ×2 (09:45→17:45)
[2023-01-20 09:57] VITALS: BMI 29.5
[2023-01-20] MEDS: BUSPIRONE HCL 10 MG, BUSPIRONE HCL 5 MG PO SCH ×2 (10:24→21:42)
[2023-01-20] MEDS: CEFTRIAXONE 1 GM in DEXTROSE 5%-WATER - 50 ML IVPB SCH (10:30)
[2023-01-20] MEDS: ENOXAPARIN NA (PORCINE) 40 MG/0.4 ML DISP.SYRIN SQ SCH (10:30)
[2023-01-20] MEDS: DULoxetine HCL 30 MG CAPSULE.DR PO SCH (10:31)
[2023-01-20] MEDS: BUDESONIDE/FORMETEROL FUMARATE 160/4.5 mcg INHALER IH SCH ×2 (10:32→21:42)
[2023-01-20] MEDS: ACETAMINOPHEN 325 MG TABLET (FP) PO PRN ×2 (10:38→17:50)
[2023-01-20] MEDS: INSULIN SLIDING SCALE (NOVOLOG) 1 VIAL SQ SCH ×2 (11:04→16:39)
[2023-01-20] MEDS ORDERED: INSULIN (NOVOLOG) ASPART 100 UNITS/ML 10ML VIAL ONE ×2 (11:15→16:55)
[2023-01-20] MEDS: KETOROLAC TROMETHAMINE 15 MG/ML VIAL IVPUSH PRN ×2 (12:00→17:49)
[2023-01-20 16:54] LABS: LACTIC ACID 4.2 mmol/L (0.4-2.0)
[2023-01-20] MEDS ORDERED: LACTATED RINGERS SOLUTION 1,000 ML/1,000 ML INFUS.BAG IV ONE (17:35)
[2023-01-20] MEDS ORDERED: traZODone HCL 50 MG TABLET (FP) ONE (20:55)
[2023-01-20] MEDS: traZODone HCL 100 MG TABLET (FP) PO SCH (21:41)
[2023-01-20] MEDS: ATORVASTATIN CA 40 MG TABLET (FP) PO SCH (21:41)
[2023-01-20] MEDS: QUEtiapine FUMARATE 50 MG TABLET PO SCH (21:42)
[2023-01-20] MEDS: clonazePAM 0.5 MG TABLET PO PRN (21:59)
[2023-01-21 00:11] LABS: LACTIC ACID 3.6 mmol/L (0.4-2.0)
[2023-01-21] MEDS: LACTATED RINGERS SOLUTION 1,000 ML/1,000 ML INFUS.BAG IV SCH (01:18)
[2023-01-21] MEDS: INSULIN SLIDING SCALE (NOVOLOG) 1 VIAL SQ SCH ×3 (06:31→17:09)
[2023-01-21 07:27] LABS: HEMATOCRIT 32.8 % (32.4-45.2); HEMOGLOBIN 11.4 GM/dL (10.7-15.3); MCH 29.8 pg (25.7-33.7); MCHC 34.9 g/dl (32.0-36.0); MEAN CELL VOLUME 85.2 fl (80-96); MEAN PLT VOLUME 7.8 fl (7.5-11.1); PLATELET COUNT 176 10^3/uL (134-434); RBC 3.85 M/mm3 (3.60-5.2); RDW 13.9 % (11.6-15.6); WHITE BLOOD COUNT 4.7 K/mm3 (4.0-10.0)
[2023-01-21 07:43] LABS: POTASSIUM 3.2 mmol/L (3.5-5.1)
[2023-01-21 07:47] LABS: BLOOD UREA NITROGEN 7.2 mg/dL (7-18)
[2023-01-21 07:48] LABS: ALBUMIN 2.8 g/dl (3.4-5.0); CALCIUM 8.3 mg/dL (8.5-10.1); MAGNESIUM 1.7 mg/dL (1.8-2.4)
[2023-01-21 07:51] LABS: CREATININE 0.7 mg/dL (0.55-1.3); PHOSPHOROUS 2.9 mg/dL (2.5-4.9)
[2023-01-21 07:53] LABS: BILIRUBIN,TOTAL 0.6 mg/dL (0.2-1); TOT PROT 5.6 g/dl (6.4-8.2)
[2023-01-21 08:13] LABS: LACTIC ACID 3.1 mmol/L (0.4-2.0)
[2023-01-21] MEDS ORDERED: POTASSIUM CHLORIDE ORAL LIQUID 20 MEQ/15 ML PO ONE (08:30)
[2023-01-21] MEDS ORDERED: MAGNESIUM OXIDE 400 MG TABLET (FP) PO ONE (08:30)
[2023-01-21 08:37] LABS: METHADONE, UR NEGATIVE (NEGATIVE); OPIATES, URI NEGATIVE (NEGATIVE); PHENCYCLIDINE,URINE NEGATIVE (NEGATIVE); URINE BARBITURATES NEGATIVE (NEGATIVE); URINE BENZODIAZEPINES NEGATIVE (NEGATIVE)
[2023-01-21 08:38] LABS: URINE AMPHETAMINES NEGATIVE (NEGATIVE)
[2023-01-21 08:45] LABS: COCAINE, UR NEGATIVE (NEGATIVE)
[2023-01-21] MEDS: DULoxetine HCL 30 MG CAPSULE.DR PO SCH (09:13)
[2023-01-21] MEDS: CEFTRIAXONE 1 GM in DEXTROSE 5%-WATER - 50 ML IVPB SCH (09:13)
[2023-01-21] MEDS: ENOXAPARIN NA (PORCINE) 40 MG/0.4 ML DISP.SYRIN SQ SCH (09:13)
[2023-01-21] MEDS: KETOROLAC TROMETHAMINE 15 MG/ML VIAL IVPUSH PRN ×2 (09:44→15:57)
[2023-01-21] MEDS: BUSPIRONE HCL 10 MG, BUSPIRONE HCL 5 MG PO SCH ×2 (09:45→21:35)
[2023-01-21] MEDS: BUDESONIDE/FORMETEROL FUMARATE 160/4.5 mcg INHALER IH SCH ×2 (09:46→21:36)
[2023-01-21] MEDS ORDERED: INSULIN (NOVOLOG) ASPART 100 UNITS/ML 10ML VIAL ONE (17:15)
[2023-01-21] MEDS ORDERED: traZODone HCL 50 MG TABLET (FP) ONE (21:10)
[2023-01-21 21:24] LABS: EPI CELLS 31 /uL (0-25.1); HYALINE CASTS 0 /uL (0-3.1); URINE APPEARANCE CLEAR; URINE BACTERIA 44 /uL (0-1359); URINE BILIRUBIN NEGATIVE (NEGATIVE); URINE COLOR YELLOW; URINE GLUCOSE (UA) TRACE (NEGATIVE); URINE KETONE NEGATIVE (NEGATIVE); URINE LEUK ESTERASE TRACE (NEGATIVE); URINE NITRITE NEGATIVE (NEGATIVE); URINE PROTEIN NEGATIVE (NEGATIVE); URINE RBC 2 /uL (0-23.9); URINE UROBILINOGEN 0.2 mg/dL (0.2-1.0); URINE WBC 20 /uL (0-25.8)
[2023-01-21] MEDS: traZODone HCL 100 MG TABLET (FP) PO SCH (21:35)
[2023-01-21] MEDS: clonazePAM 0.5 MG TABLET PO PRN (21:35)
[2023-01-21] MEDS: QUEtiapine FUMARATE 50 MG TABLET PO SCH (21:36)
[2023-01-21] MEDS: ATORVASTATIN CA 40 MG TABLET (FP) PO SCH (21:36)
[2023-01-22] MEDS: LACTATED RINGERS SOLUTION 1,000 ML/1,000 ML INFUS.BAG IV SCH (01:00)
[2023-01-22] MEDS: INSULIN SLIDING SCALE (NOVOLOG) 1 VIAL SQ SCH ×3 (06:12→16:26)
[2023-01-22] MEDS: KETOROLAC TROMETHAMINE 15 MG/ML VIAL IVPUSH PRN ×2 (06:28→12:52)
[2023-01-22 07:16] LABS: BASO % 0.5 % (0-2.0); EOS % 3.6 % (0-4.5); HEMATOCRIT 34.9 % (32.4-45.2); HEMOGLOBIN 12.2 GM/dL (10.7-15.3); LYMPH % 19.5 % (8-40); MCH 29.4 pg (25.7-33.7); MCHC 34.9 g/dl (32.0-36.0); MEAN CELL VOLUME 84.4 fl (80-96); MEAN PLT VOLUME 7.6 fl (7.5-11.1); MONO % 5.4 % (3.8-10.2); PLATELET COUNT 173 10^3/uL (134-434); RBC 4.14 M/mm3 (3.60-5.2); RDW 13.9 % (11.6-15.6); WHITE BLOOD COUNT 4.7 K/mm3 (4.0-10.0)
[2023-01-22 07:44] LABS: BLOOD UREA NITROGEN 5.2 mg/dL (7-18); CALCIUM 8.2 mg/dL (8.5-10.1); MAGNESIUM 1.6 mg/dL (1.8-2.4)
[2023-01-22 07:47] LABS: CREATININE 0.6 mg/dL (0.55-1.3)
[2023-01-22 07:49] LABS: BILIRUBIN,TOTAL 1.1 mg/dL (0.2-1); TOT PROT 5.8 g/dl (6.4-8.2)
[2023-01-22] MEDS: clonazePAM 0.5 MG TABLET PO PRN (09:17)
[2023-01-22] MEDS: CEFTRIAXONE 1 GM in DEXTROSE 5%-WATER - 50 ML IVPB SCH (09:17)
[2023-01-22] MEDS: DULoxetine HCL 30 MG CAPSULE.DR PO SCH (09:18)
[2023-01-22] MEDS: BUDESONIDE/FORMETEROL FUMARATE 160/4.5 mcg INHALER IH SCH ×2 (09:18→21:35)
[2023-01-22] MEDS: ENOXAPARIN NA (PORCINE) 40 MG/0.4 ML DISP.SYRIN SQ SCH (09:18)
[2023-01-22] MEDS: BUSPIRONE HCL 10 MG, BUSPIRONE HCL 5 MG PO SCH ×2 (09:21→22:27)
[2023-01-22] MEDS ORDERED: POTASSIUM CHLORIDE ORAL LIQUID 20 MEQ/15 ML PO ONE (12:00)
[2023-01-22] MEDS ORDERED: MAGNESIUM 2GM/50ML STERILE WATER IVPB IVPB ONE (12:00)
[2023-01-22] MEDS: KCL 10 MEQ IVPB 10 MEQ/100 ML INFUS.BAG IVPB SCH ×2 (12:51→15:13)
[2023-01-22] MEDS ORDERED: traZODone HCL 50 MG TABLET (FP) ONE (21:17)
[2023-01-22] MEDS: ACETAMINOPHEN 325 MG TABLET (FP) PO PRN (21:33)
[2023-01-22] MEDS: ATORVASTATIN CA 40 MG TABLET (FP) PO SCH (21:34)
[2023-01-22] MEDS: QUEtiapine FUMARATE 50 MG TABLET PO SCH (21:34)
[2023-01-22] MEDS: traZODone HCL 100 MG TABLET (FP) PO SCH (21:34)
[2023-01-23] MEDS: LACTATED RINGERS SOLUTION 1,000 ML/1,000 ML INFUS.BAG IV SCH (01:19)
[2023-01-23] MEDS: KETOROLAC TROMETHAMINE 15 MG/ML VIAL IVPUSH PRN ×2 (04:07→14:42)
[2023-01-23] MEDS: INSULIN SLIDING SCALE (NOVOLOG) 1 VIAL SQ SCH ×3 (06:06→17:22)
[2023-01-23 07:25] LABS: BASO % 0.6 % (0-2.0); EOS % 5.3 % (0-4.5); HEMATOCRIT 32.6 % (32.4-45.2); HEMOGLOBIN 11.4 GM/dL (10.7-15.3); LYMPH % 25.4 % (8-40); MCH 29.5 pg (25.7-33.7); MEAN CELL VOLUME 84.3 fl (80-96); MEAN PLT VOLUME 7.5 fl (7.5-11.1); MONO % 6.9 % (3.8-10.2); NEUT % 61.8 % (42.8-82.8); PLATELET COUNT 157 10^3/uL (134-434); RBC 3.87 M/mm3 (3.60-5.2); RDW 13.9 % (11.6-15.6); WHITE BLOOD COUNT 3.3 K/mm3 (4.0-10.0)
[2023-01-23 07:27] LABS: POTASSIUM 3.4 mmol/L (3.5-5.1)
[2023-01-23 07:31] LABS: CALCIUM 8.1 mg/dL (8.5-10.1)
[2023-01-23 07:32] LABS: ALBUMIN 2.8 g/dl (3.4-5.0); BLOOD UREA NITROGEN 5.2 mg/dL (7-18)
[2023-01-23 07:35] LABS: CREATININE 0.6 mg/dL (0.55-1.3)
[2023-01-23 07:36] LABS: TOT PROT 5.6 g/dl (6.4-8.2)
[2023-01-23 07:37] LABS: BILIRUBIN,TOTAL 0.8 mg/dL (0.2-1)
[2023-01-23] MEDS: DULoxetine HCL 30 MG CAPSULE.DR PO SCH (09:28)
[2023-01-23] MEDS: CEFTRIAXONE 1 GM in DEXTROSE 5%-WATER - 50 ML IVPB SCH (09:34)
[2023-01-23] MEDS: BUSPIRONE HCL 10 MG, BUSPIRONE HCL 5 MG PO SCH ×2 (09:35→21:00)
[2023-01-23] MEDS: ENOXAPARIN NA (PORCINE) 40 MG/0.4 ML DISP.SYRIN SQ SCH (09:35)
[2023-01-23] MEDS: BUDESONIDE/FORMETEROL FUMARATE 160/4.5 mcg INHALER IH SCH ×2 (09:36→21:01)
[2023-01-23] MEDS: CARVEDILOL 6.25 MG TABLET (FP) PO SCH ×2 (14:10→21:01)
[2023-01-23] MEDS ORDERED: traZODone HCL 50 MG TABLET (FP) ONE (20:18)
[2023-01-23] MEDS: ATORVASTATIN CA 40 MG TABLET (FP) PO SCH (21:00)
[2023-01-23] MEDS: SACUBITRIL/VALSARTAN 24 MG-26 MG TABLET PO SCH (21:00)
[2023-01-23] MEDS: QUEtiapine FUMARATE 50 MG TABLET PO SCH (21:00)
[2023-01-23] MEDS: traZODone HCL 100 MG TABLET (FP) PO SCH (21:01)
[2023-01-24] MEDS: KETOROLAC TROMETHAMINE 15 MG/ML VIAL IVPUSH PRN ×2 (00:13→10:18)
[2023-01-24] MEDS: INSULIN SLIDING SCALE (NOVOLOG) 1 VIAL SQ SCH ×2 (06:08→12:12)
[2023-01-24 09:14] LABS: HEMATOCRIT 37.9 % (32.4-45.2); HEMOGLOBIN 12.9 GM/dL (10.7-15.3); MCH 29.2 pg (25.7-33.7); MCHC 34.1 g/dl (32.0-36.0); MEAN CELL VOLUME 85.5 fl (80-96); MEAN PLT VOLUME 7.8 fl (7.5-11.1); PLATELET COUNT 182 10^3/uL (134-434); RBC 4.43 M/mm3 (3.60-5.2); RDW 13.7 % (11.6-15.6); WHITE BLOOD COUNT 4.9 K/mm3 (4.0-10.0)
[2023-01-24] MEDS: ENOXAPARIN NA (PORCINE) 40 MG/0.4 ML DISP.SYRIN SQ SCH (09:23)
[2023-01-24] MEDS: CARVEDILOL 6.25 MG TABLET (FP) PO SCH (09:24)
[2023-01-24] MEDS: BUSPIRONE HCL 10 MG, BUSPIRONE HCL 5 MG PO SCH (09:24)
[2023-01-24] MEDS: SACUBITRIL/VALSARTAN 24 MG-26 MG TABLET PO SCH (09:24)
[2023-01-24] MEDS: DULoxetine HCL 30 MG CAPSULE.DR PO SCH (09:24)
[2023-01-24] MEDS: BUDESONIDE/FORMETEROL FUMARATE 160/4.5 mcg INHALER IH SCH (09:24)
[2023-01-24 09:50] LABS: POTASSIUM 3.7 mmol/L (3.5-5.1)
[2023-01-24 09:52] LABS: CALCIUM 8.6 mg/dL (8.5-10.1)
[2023-01-24 09:53] LABS: ALBUMIN 3.2 g/dl (3.4-5.0); BLOOD UREA NITROGEN 5.8 mg/dL (7-18)
[2023-01-24 09:56] LABS: CREATININE 0.6 mg/dL (0.55-1.3)
[2023-01-24 09:57] LABS: BILIRUBIN,TOTAL 0.6 mg/dL (0.2-1); TOT PROT 6.4 g/dl (6.4-8.2)
[2023-01-24] MEDS ORDERED: MUPIROCIN 2% TOPICAL OINTMENT FOR DECOLONIZATION NS SCH (10:00)
[2023-01-24] MEDS ORDERED: POTASSIUM CHLORIDE ORAL LIQUID 20 MEQ/15 ML PO ONE (10:00)
[2023-01-24] MEDS ORDERED: CARVEDILOL 6.25 MG TABLET (FP) PO ONE (10:30)
[2023-01-24 12:57] VITALS: RESP 18
[2023-01-24 16:26] VITALS: BP 147/88; PULSE 64; TEMP 98.1
[2023-01-24] MEDS ORDERED: CARVEDILOL 12.5 MG TABLET (FP) PO SCH (22:00)
== END 2023-01-24 16:30 | disposition home or self-care (01) ==
LOC: JER 22:16 → INTOOBSV 01-20 05:26 → JERBED 01-20 05:26 → J2W 01-20 09:28
PROVIDERS: ADMIT Internal Medicine; ATTEND Internal Medicine
PROC: 3E0F7GC Introduction of Other Therapeutic Substance into Respiratory Tract, Via Natural or Artificial Opening (ICD-10-PCS; principal; 2023-01-20)
PROC: 3E03329 Introduction of Other Anti-infective into Peripheral Vein, Percutaneous Approach (ICD-10-PCS; 2023-01-20)
PROC: 3E023GC Introduction of Other Therapeutic Substance into Muscle, Percutaneous Approach (ICD-10-PCS; 2023-01-20)
PROC: 3E0333Z Introduction of Anti-inflammatory into Peripheral Vein, Percutaneous Approach (ICD-10-PCS; 2023-01-20)
PROC: 3E0337Z Introduction of Electrolytic and Water Balance Substance into Peripheral Vein, Percutaneous Approach (ICD-10-PCS; 2023-01-20)
PROC: 3E033GC Introduction of Other Therapeutic Substance into Peripheral Vein, Percutaneous Approach (ICD-10-PCS; 2023-01-20)
DX: J44.1 Chronic obstructive pulmonary disease with (acute) exacerbation (principal); E87.6 Hypokalemia; E83.42 Hypomagnesemia; R10.9 Unspecified abdominal pain; F50.2 Bulimia nervosa; R06.09 Other forms of dyspnea; R42 Dizziness and giddiness; E11.9 Type 2 diabetes mellitus without complications; I25.10 Atherosclerotic heart disease of native coronary artery without angina pectoris; I11.0 Hypertensive heart disease with heart failure; I50.9 Heart failure, unspecified; I25.2 Old myocardial infarction; F41.8 Other specified anxiety disorders; Z86.14 Personal history of Methicillin resistant Staphylococcus aureus infection; G47.33 Obstructive sleep apnea (adult) (pediatric); Z99.81 Dependence on supplemental oxygen; T82.9XXA Unspecified complication of cardiac and vascular prosthetic device, implant and graft, initial encounter; X58.XXXA Exposure to other specified factors, initial encounter; Z87.891 Personal history of nicotine dependence; Y99.8 Other external cause status
CPT/HCPCS: 0241U-QW; 36415; 71045-TC-FY; 71275-TC; 74174-TC; 80053; 80307; 81003; 82010; 82803; 82962; 83036; 83605; 83690; 83735; 83880; 84100; 84436; 84443; 84484; 85025; 85027; 85610; 85730; 86850; 86900; 86901; 87077; 87081; 87086; 93005; 93010; 93306-TC; 94640; 96361; 96365; 96367; 96372; 96375; 97116-GP; 97161-GP; 99285-25; G0378

== ENCOUNTER 2023-02-21 18:58 | Observation (INO) | payer OTHER ==
[2023-02-21] MEDS ORDERED: KETOROLAC TROMETHAMINE 30 MG/1 ML VIAL IM ONE (20:53)
[2023-02-21] MEDS ORDERED: KETOROLAC TROMETHAMINE 15 MG/ML VIAL IVPUSH ONE (21:20)
[2023-02-21 22:02] LABS: BASO % 0.4 % (0-2.0); EOS % 2.7 % (0-4.5); HEMOGLOBIN 12.9 GM/dL (10.7-15.3); LYMPH % 16.4 % (8-40); MCH 29.7 pg (25.7-33.7); MCHC 34.7 g/dl (32.0-36.0); MEAN CELL VOLUME 85.5 fl (80-96); MEAN PLT VOLUME 7.4 fl (7.5-11.1); MONO % 6.4 % (3.8-10.2); NEUT % 74.1 % (42.8-82.8); PLATELET COUNT 203 10^3/uL (134-434); RBC 4.33 M/mm3 (3.60-5.2); RDW 13.7 % (11.6-15.6); WHITE BLOOD COUNT 6.8 K/mm3 (4.0-10.0)
[2023-02-21 22:18] LABS: INR 1.16 (0.83-1.09); PROTHROMBIN TIME (PATIENT) 13.4 SEC (9.7-13.0)
[2023-02-21 22:21] LABS: ACTIVATED PTT 29.2 SECONDS (25.2-36.5)
[2023-02-21 22:24] LABS: POTASSIUM 3.6 mmol/L (3.5-5.1)
[2023-02-21 22:26] LABS: CALCIUM 8.2 mg/dL (8.5-10.1)
[2023-02-21 22:27] LABS: ALBUMIN 3.6 g/dl (3.4-5.0); BLOOD UREA NITROGEN 6.5 mg/dL (7-18)
[2023-02-21 22:30] LABS: CREATININE 0.8 mg/dL (0.55-1.3)
[2023-02-21 22:31] LABS: BILIRUBIN,TOTAL 0.7 mg/dL (0.2-1); TOT PROT 7.3 g/dl (6.4-8.2)
[2023-02-21 22:46] LABS: EPI CELLS 34 /uL (0-25.1); HYALINE CASTS 8 /uL (0-3.1); PH,URINE 5.5 (5.0-8.0); URINE APPEARANCE CLOUDY; URINE BACTERIA >9,000 /uL (0-1359); URINE BILIRUBIN NEGATIVE (NEGATIVE); URINE COLOR YELLOW; URINE GLUCOSE (UA) 1+ (NEGATIVE); URINE KETONE NEGATIVE (NEGATIVE); URINE LEUK ESTERASE 2+ (NEGATIVE); URINE NITRITE NEGATIVE (NEGATIVE); URINE PROTEIN TRACE (NEGATIVE); URINE RBC 12 /uL (0-23.9); URINE UROBILINOGEN 0.2 mg/dL (0.2-1.0); URINE WBC 729 /uL (0-25.8)
[2023-02-21] MEDS ORDERED: ACETAMINOPHEN 1000 MG/100 ML BAG IVPB ONE (23:27)
[2023-02-21] MEDS ORDERED: cefTRIAXone SODIUM 1 GM VIAL ONE (23:48)
[2023-02-21] MEDS ORDERED: ACETAMINOPHEN INJECTION 100 ML IVPB ONE (23:48)
[2023-02-22] MEDS ORDERED: ACETAMINOPHEN 325 MG TABLET (FP) PO ONE (02:18)
[2023-02-22] MEDS ORDERED: oxyCODONE HCL 5 MG TABLET PO ONE (02:18)
[2023-02-22] MEDS ORDERED: CEFTRIAXONE 1 GM in DEXTROSE 5%-WATER - 50 ML IVPB ONE (02:22)
[2023-02-22] MEDS ORDERED: SODIUM CHLORIDE 500 ML IV STA (02:25)
[2023-02-22] MEDS ORDERED: ALBUTEROL SO4 HFA INHALER IH PRN (02:30)
[2023-02-22] MEDS ORDERED: LORazepam 0.5 MG TABLET PO SCH (02:30)
[2023-02-22] MEDS ORDERED: oxyCODONE HCL 5 MG TABLET ONE (03:17)
[2023-02-22 06:52] LABS: BASO % 0.5 % (0-2.0); EOS % 3.3 % (0-4.5); HEMATOCRIT 36.6 % (32.4-45.2); HEMOGLOBIN 12.8 GM/dL (10.7-15.3); LYMPH % 21.4 % (8-40); MCH 29.8 pg (25.7-33.7); MEAN CELL VOLUME 85.2 fl (80-96); MEAN PLT VOLUME 7.3 fl (7.5-11.1); MONO % 7.2 % (3.8-10.2); NEUT % 67.6 % (42.8-82.8); PLATELET COUNT 193 10^3/uL (134-434); RDW 14.1 % (11.6-15.6); WHITE BLOOD COUNT 6.7 K/mm3 (4.0-10.0)
[2023-02-22] MEDS ORDERED: GABAPENTIN 300 MG CAPSULE ONE (06:54)
[2023-02-22] MEDS: GABAPENTIN 300 MG CAPSULE PO SCH ×3 (06:59→21:13)
[2023-02-22 07:14] LABS: CHLORIDE 98 mmol/L (98-107); SODIUM 138 mmol/L (136-145)
[2023-02-22 07:16] LABS: CALCIUM 8.3 mg/dL (8.5-10.1)
[2023-02-22 07:17] LABS: ALBUMIN 3.5 g/dl (3.4-5.0); BLOOD UREA NITROGEN 8.8 mg/dL (7-18); CO2 34 mmol/L (21-32); GLUCOSE,RANDOM 126 mg/dL (74-106)
[2023-02-22 07:20] LABS: CREATININE 0.7 mg/dL (0.55-1.3); SGOT/AST 19 U/L (15-37); SGPT/ALT 18 U/L (13-61)
[2023-02-22] MEDS: INSULIN SLIDING SCALE (NOVOLOG) 1 VIAL SQ SCH ×4 (07:20→21:14)
[2023-02-22 07:21] LABS: BILIRUBIN,TOTAL 0.9 mg/dL (0.2-1)
[2023-02-22 07:23] LABS: ALK PHOS 130 U/L (45-117)
[2023-02-22 07:27] LABS: ANION GAP 6 MMOL/L (8-16); POTASSIUM 2.9 mmol/L (3.5-5.1)
[2023-02-22] MEDS ORDERED: POTASSIUM CHLORIDE TABS 20 MEQ TABLET.ER (FP) PO ONE ×2 (08:45→08:49)
[2023-02-22] MEDS ORDERED: KCL 10 MEQ IVPB 30 MEQ/300 ML INFUS.BAG IVPB ONE (08:47)
[2023-02-22] MEDS: KCL 10 MEQ IVPB 10 MEQ/100 ML INFUS.BAG IVPB SCH ×3 (08:58→16:02)
[2023-02-22 09:14] LABS: MAGNESIUM 1.9 mg/dL (1.8-2.4)
[2023-02-22] MEDS ORDERED: POTASSIUM CHLORIDE ORAL LIQUID 20 MEQ/15 ML ONE (09:39)
[2023-02-22] MEDS ORDERED: CEFTRIAXONE 1 GM/50 ML BAG ONE (09:40)
[2023-02-22] MEDS: CARVEDILOL 12.5 MG TABLET (FP) PO SCH ×2 (09:43→21:12)
[2023-02-22] MEDS: ENOXAPARIN NA (PORCINE) 40 MG/0.4 ML DISP.SYRIN SQ SCH (09:43)
[2023-02-22] MEDS: CEFTRIAXONE 1 GM in DEXTROSE 5%-WATER - 50 ML IVPB SCH (09:43)
[2023-02-22] MEDS: BUDESONIDE/FORMETEROL FUMARATE 160/4.5 mcg INHALER IH SCH ×2 (09:54→21:17)
[2023-02-22] MEDS: BUSPIRONE HCL 10 MG, BUSPIRONE HCL 5 MG PO SCH ×2 (09:55→21:12)
[2023-02-22] MEDS: DULoxetine HCL 30 MG CAPSULE.DR PO SCH (12:02)
[2023-02-22] MEDS: oxyCODONE HCL 5 MG TABLET PO PRN ×2 (13:44→21:35)
[2023-02-22 14:09] VITALS: BMI 27.5
[2023-02-22] MEDS ORDERED: QUEtiapine FUMARATE 25 MG TABLET ONE (21:01)
[2023-02-22] MEDS: ATORVASTATIN CA 40 MG TABLET (FP) PO SCH (21:12)
[2023-02-22] MEDS: traZODone HCL 100 MG TABLET (FP) PO SCH (21:12)
[2023-02-22] MEDS: QUEtiapine FUMARATE 50 MG TABLET PO SCH (21:14)
[2023-02-23] MEDS: GABAPENTIN 300 MG CAPSULE PO SCH ×3 (05:55→21:14)
[2023-02-23] MEDS: INSULIN SLIDING SCALE (NOVOLOG) 1 VIAL SQ SCH ×4 (06:01→21:16)
[2023-02-23 08:55] LABS: HEMATOCRIT 35.1 % (32.4-45.2); HEMOGLOBIN 12.3 GM/dL (10.7-15.3); MCH 30.1 pg (25.7-33.7); MCHC 34.9 g/dl (32.0-36.0); MEAN CELL VOLUME 86.1 fl (80-96); MEAN PLT VOLUME 7.3 fl (7.5-11.1); PLATELET COUNT 211 10^3/uL (134-434); RBC 4.08 M/mm3 (3.60-5.2); RDW 13.6 % (11.6-15.6); WHITE BLOOD COUNT 5.9 K/mm3 (4.0-10.0)
[2023-02-23 09:34] LABS: CALCIUM 8.7 mg/dL (8.5-10.1); POTASSIUM 3.8 mmol/L (3.5-5.1)
[2023-02-23 09:35] LABS: BLOOD UREA NITROGEN 9.6 mg/dL (7-18)
[2023-02-23 09:38] LABS: CREATININE 0.7 mg/dL (0.55-1.3)
[2023-02-23 09:42] LABS: PHOSPHOROUS 3.2 mg/dL (2.5-4.9)
[2023-02-23] MEDS: ENOXAPARIN NA (PORCINE) 40 MG/0.4 ML DISP.SYRIN SQ SCH (09:49)
[2023-02-23] MEDS: CEFTRIAXONE 1 GM in DEXTROSE 5%-WATER - 50 ML IVPB SCH (09:49)
[2023-02-23] MEDS: DULoxetine HCL 30 MG CAPSULE.DR PO SCH (09:50)
[2023-02-23] MEDS: CARVEDILOL 12.5 MG TABLET (FP) PO SCH ×2 (09:50→21:15)
[2023-02-23] MEDS: BUSPIRONE HCL 10 MG, BUSPIRONE HCL 5 MG PO SCH ×2 (09:50→21:16)
[2023-02-23] MEDS: BUDESONIDE/FORMETEROL FUMARATE 160/4.5 mcg INHALER IH SCH ×2 (12:05→21:17)
[2023-02-23] MEDS: oxyCODONE HCL 5 MG TABLET PO PRN ×2 (12:05→18:02)
[2023-02-23] MEDS: INSULIN (NOVOLOG) ASPART 100 UNITS/ML 10ML VIAL SQ SCH (17:03)
[2023-02-23] MEDS ORDERED: QUEtiapine FUMARATE 25 MG TABLET ONE (21:06)
[2023-02-23] MEDS: ATORVASTATIN CA 40 MG TABLET (FP) PO SCH (21:15)
[2023-02-23] MEDS: traZODone HCL 100 MG TABLET (FP) PO SCH (21:15)
[2023-02-23] MEDS: QUEtiapine FUMARATE 50 MG TABLET PO SCH (21:16)
[2023-02-23] MEDS: INSULIN (LEVEMIR) 100 UNITS/ML UNITS SQ SCH (21:16)
[2023-02-24] MEDS: oxyCODONE HCL 5 MG TABLET PO PRN ×3 (00:53→17:07)
[2023-02-24] MEDS: GABAPENTIN 300 MG CAPSULE PO SCH ×3 (06:21→21:29)
[2023-02-24] MEDS: INSULIN SLIDING SCALE (NOVOLOG) 1 VIAL SQ SCH ×4 (06:22→21:34)
[2023-02-24] MEDS: INSULIN (NOVOLOG) ASPART 100 UNITS/ML 10ML VIAL SQ SCH ×3 (06:22→17:00)
[2023-02-24] MEDS: INSULIN (LEVEMIR) 100 UNITS/ML UNITS SQ SCH ×2 (06:22→21:30)
[2023-02-24 07:51] LABS: BASO % 0.3 % (0-2.0); EOS % 2.4 % (0-4.5); HEMATOCRIT 32.5 % (32.4-45.2); HEMOGLOBIN 11.3 GM/dL (10.7-15.3); LYMPH % 28.5 % (8-40); MCHC 34.7 g/dl (32.0-36.0); MEAN CELL VOLUME 86.4 fl (80-96); MEAN PLT VOLUME 7.1 fl (7.5-11.1); MONO % 6.2 % (3.8-10.2); NEUT % 62.6 % (42.8-82.8); PLATELET COUNT 191 10^3/uL (134-434); RBC 3.76 M/mm3 (3.60-5.2); RDW 13.5 % (11.6-15.6); WHITE BLOOD COUNT 5.5 K/mm3 (4.0-10.0)
[2023-02-24 08:23] LABS: POTASSIUM 3.2 mmol/L (3.5-5.1)
[2023-02-24 08:27] LABS: CALCIUM 8.3 mg/dL (8.5-10.1)
[2023-02-24 08:28] LABS: ALBUMIN 3.2 g/dl (3.4-5.0); MAGNESIUM 1.8 mg/dL (1.8-2.4)
[2023-02-24 08:31] LABS: CREATININE 0.7 mg/dL (0.55-1.3); PHOSPHOROUS 3.3 mg/dL (2.5-4.9)
[2023-02-24 08:32] LABS: BILIRUBIN,TOTAL 0.6 mg/dL (0.2-1); TOT PROT 6.1 g/dl (6.4-8.2)
[2023-02-24] MEDS: BUSPIRONE HCL 10 MG, BUSPIRONE HCL 5 MG PO SCH ×2 (10:19→21:29)
[2023-02-24] MEDS: DULoxetine HCL 30 MG CAPSULE.DR PO SCH (10:20)
[2023-02-24] MEDS: CARVEDILOL 12.5 MG TABLET (FP) PO SCH ×2 (10:20→21:30)
[2023-02-24] MEDS: THIAMINE HCL 100 MG TABLET (FP) PO SCH (10:20)
[2023-02-24] MEDS: BUDESONIDE/FORMETEROL FUMARATE 160/4.5 mcg INHALER IH SCH ×2 (10:21→21:34)
[2023-02-24] MEDS: ENOXAPARIN NA (PORCINE) 40 MG/0.4 ML DISP.SYRIN SQ SCH (10:21)
[2023-02-24] MEDS: CEFTRIAXONE 1 GM in DEXTROSE 5%-WATER - 50 ML IVPB SCH (10:21)
[2023-02-24] MEDS ORDERED: POTASSIUM CHLORIDE ORAL LIQUID 20 MEQ/15 ML PO ONE (12:45)
[2023-02-24 18:50] LABS: HIV INTERPRETATION NEGATIVE (NEGATIVE)
[2023-02-24] MEDS ORDERED: QUEtiapine FUMARATE 25 MG TABLET ONE (20:45)
[2023-02-24] MEDS: ATORVASTATIN CA 40 MG TABLET (FP) PO SCH (21:29)
[2023-02-24] MEDS: traZODone HCL 100 MG TABLET (FP) PO SCH (21:30)
[2023-02-24] MEDS: QUEtiapine FUMARATE 50 MG TABLET PO SCH (21:30)
[2023-02-25] MEDS: oxyCODONE HCL 5 MG TABLET PO PRN ×5 (01:05→22:42)
[2023-02-25] MEDS: GABAPENTIN 300 MG CAPSULE PO SCH ×3 (06:47→22:12)
[2023-02-25] MEDS: INSULIN (NOVOLOG) ASPART 100 UNITS/ML 10ML VIAL SQ SCH ×3 (06:48→16:40)
[2023-02-25] MEDS: INSULIN (LEVEMIR) 100 UNITS/ML UNITS SQ SCH ×2 (06:49→22:13)
[2023-02-25] MEDS: INSULIN SLIDING SCALE (NOVOLOG) 1 VIAL SQ SCH ×4 (06:49→22:14)
[2023-02-25] MEDS ORDERED: INSULIN (LEVEMIR) 100 UNITS/ML UNITS SQ ONE (07:10)
[2023-02-25] MEDS ORDERED: INSULIN SLIDING SCALE (NOVOLOG) 1 VIAL SQ ONE (07:10)
[2023-02-25 08:03] LABS: BASO % 0.7 % (0-2.0); EOS % 2.7 % (0-4.5); HEMATOCRIT 32.2 % (32.4-45.2); HEMOGLOBIN 11.1 GM/dL (10.7-15.3); LYMPH % 32.3 % (8-40); MCH 29.9 pg (25.7-33.7); MCHC 34.6 g/dl (32.0-36.0); MEAN CELL VOLUME 86.6 fl (80-96); MEAN PLT VOLUME 7.1 fl (7.5-11.1); MONO % 6.8 % (3.8-10.2); NEUT % 57.5 % (42.8-82.8); PLATELET COUNT 189 10^3/uL (134-434); RBC 3.72 M/mm3 (3.60-5.2); RDW 13.7 % (11.6-15.6); WHITE BLOOD COUNT 4.9 K/mm3 (4.0-10.0)
[2023-02-25 08:32] LABS: POTASSIUM 3.6 mmol/L (3.5-5.1)
[2023-02-25 08:34] LABS: ALBUMIN 3.1 g/dl (3.4-5.0); CALCIUM 8.5 mg/dL (8.5-10.1); MAGNESIUM 1.7 mg/dL (1.8-2.4)
[2023-02-25 08:35] LABS: BLOOD UREA NITROGEN 8.3 mg/dL (7-18)
[2023-02-25 08:37] LABS: CREATININE 0.7 mg/dL (0.55-1.3); PHOSPHOROUS 4.4 mg/dL (2.5-4.9)
[2023-02-25 08:39] LABS: BILIRUBIN,TOTAL 0.5 mg/dL (0.2-1); TOT PROT 6.3 g/dl (6.4-8.2)
[2023-02-25] MEDS ORDERED: MAGNESIUM 2GM/50ML STERILE WATER IVPB IVPB ONE ×2 (08:50→13:59)
[2023-02-25] MEDS: ENOXAPARIN NA (PORCINE) 40 MG/0.4 ML DISP.SYRIN SQ SCH (10:13)
[2023-02-25] MEDS: CARVEDILOL 12.5 MG TABLET (FP) PO SCH ×3 (10:13→22:13)
[2023-02-25] MEDS: THIAMINE HCL 100 MG TABLET (FP) PO SCH (10:13)
[2023-02-25] MEDS: DULoxetine HCL 30 MG CAPSULE.DR PO SCH (10:14)
[2023-02-25] MEDS: BUSPIRONE HCL 10 MG, BUSPIRONE HCL 5 MG PO SCH ×2 (10:16→22:13)
[2023-02-25] MEDS: BUDESONIDE/FORMETEROL FUMARATE 160/4.5 mcg INHALER IH SCH ×2 (10:17→22:16)
[2023-02-25] MEDS: CEFTRIAXONE 1 GM in DEXTROSE 5%-WATER - 50 ML IVPB SCH (10:55)
[2023-02-25] MEDS ORDERED: QUEtiapine FUMARATE 25 MG TABLET ONE (21:56)
[2023-02-25] MEDS: QUEtiapine FUMARATE 50 MG TABLET PO SCH (22:12)
[2023-02-25] MEDS: ATORVASTATIN CA 40 MG TABLET (FP) PO SCH (22:13)
[2023-02-25] MEDS: traZODone HCL 100 MG TABLET (FP) PO SCH (22:13)
[2023-02-26] MEDS: GABAPENTIN 300 MG CAPSULE PO SCH (06:09)
[2023-02-26] MEDS: INSULIN (LEVEMIR) 100 UNITS/ML UNITS SQ SCH (06:13)
[2023-02-26] MEDS: INSULIN SLIDING SCALE (NOVOLOG) 1 VIAL SQ SCH (06:14)
[2023-02-26] MEDS: INSULIN (NOVOLOG) ASPART 100 UNITS/ML 10ML VIAL SQ SCH (06:14)
[2023-02-26] MEDS: oxyCODONE HCL 5 MG TABLET PO PRN (06:15)
[2023-02-26 07:17] LABS: BASO % 0.5 % (0-2.0); HEMOGLOBIN 11.3 GM/dL (10.7-15.3); LYMPH % 30.7 % (8-40); MCH 29.8 pg (25.7-33.7); MCHC 34.2 g/dl (32.0-36.0); MEAN CELL VOLUME 87.3 fl (80-96); MEAN PLT VOLUME 7.8 fl (7.5-11.1); MONO % 6.4 % (3.8-10.2); NEUT % 59.4 % (42.8-82.8); PLATELET COUNT 198 10^3/uL (134-434); RBC 3.78 M/mm3 (3.60-5.2); RDW 13.7 % (11.6-15.6); WHITE BLOOD COUNT 4.9 K/mm3 (4.0-10.0)
[2023-02-26] MEDS ORDERED: INSULIN (LEVEMIR) 100 UNITS/ML UNITS SQ SCH (07:40)
[2023-02-26] MEDS ORDERED: INSULIN (NOVOLOG) ASPART 100 UNITS/ML 10ML VIAL SQ SCH (07:41)
[2023-02-26 07:45] LABS: POTASSIUM 3.8 mmol/L (3.5-5.1)
[2023-02-26 07:53] LABS: CALCIUM 8.5 mg/dL (8.5-10.1)
[2023-02-26 07:54] LABS: ALBUMIN 3.3 g/dl (3.4-5.0); MAGNESIUM 1.8 mg/dL (1.8-2.4)
[2023-02-26 07:56] LABS: CREATININE 0.8 mg/dL (0.55-1.3); PHOSPHOROUS 4.1 mg/dL (2.5-4.9)
[2023-02-26 07:58] LABS: BILIRUBIN,TOTAL 0.5 mg/dL (0.2-1); TOT PROT 6.6 g/dl (6.4-8.2)
[2023-02-26] MEDS: CARVEDILOL 12.5 MG TABLET (FP) PO SCH (08:59)
[2023-02-26] MEDS: BUSPIRONE HCL 10 MG, BUSPIRONE HCL 5 MG PO SCH (08:59)
[2023-02-26] MEDS: DULoxetine HCL 30 MG CAPSULE.DR PO SCH (08:59)
[2023-02-26] MEDS: ENOXAPARIN NA (PORCINE) 40 MG/0.4 ML DISP.SYRIN SQ SCH (09:00)
[2023-02-26] MEDS: CEFTRIAXONE 1 GM in DEXTROSE 5%-WATER - 50 ML IVPB SCH (09:00)
[2023-02-26] MEDS: BUDESONIDE/FORMETEROL FUMARATE 160/4.5 mcg INHALER IH SCH (09:00)
[2023-02-26] MEDS: THIAMINE HCL 100 MG TABLET (FP) PO SCH (09:01)
[2023-02-26 09:03] VITALS: BP 131/75; PULSE 58; RESP 17; TEMP 98
== END 2023-02-26 12:40 | disposition home or self-care (01) ==
LOC: JER 18:58 → UNDOADMOB 23:07 → INTOOBSV 23:07 → JERBED 23:07 → J4S 02-22 11:47 → JERBED 02-22 16:03 → J4S 02-22 16:03
PROVIDERS: ADMIT Student in an Organized Health Care Education/Training Program; ATTEND Internal Medicine
PROC: 3E033NZ Introduction of Analgesics, Hypnotics, Sedatives into Peripheral Vein, Percutaneous Approach (ICD-10-PCS; principal; 2023-02-22)
PROC: 3E03329 Introduction of Other Anti-infective into Peripheral Vein, Percutaneous Approach (ICD-10-PCS; 2023-02-22)
PROC: 3E023GC Introduction of Other Therapeutic Substance into Muscle, Percutaneous Approach (ICD-10-PCS; 2023-02-22)
PROC: 3E013VG Introduction of Insulin into Subcutaneous Tissue, Percutaneous Approach (ICD-10-PCS; 2023-02-22)
PROC: 3E0333Z Introduction of Anti-inflammatory into Peripheral Vein, Percutaneous Approach (ICD-10-PCS; 2023-02-22)
PROC: 3E033GC Introduction of Other Therapeutic Substance into Peripheral Vein, Percutaneous Approach (ICD-10-PCS; 2023-02-22)
PROC: 3E0337Z Introduction of Electrolytic and Water Balance Substance into Peripheral Vein, Percutaneous Approach (ICD-10-PCS; 2023-02-22)
DX: N39.0 Urinary tract infection, site not specified (principal); A49.9 Bacterial infection, unspecified; I25.2 Old myocardial infarction; I11.0 Hypertensive heart disease with heart failure; I25.10 Atherosclerotic heart disease of native coronary artery without angina pectoris; I50.23 Acute on chronic systolic (congestive) heart failure; I50.22 Chronic systolic (congestive) heart failure; I07.1 Rheumatic tricuspid insufficiency; I34.0 Nonrheumatic mitral (valve) insufficiency; G47.33 Obstructive sleep apnea (adult) (pediatric); K57.90 Diverticulosis of intestine, part unspecified, without perforation or abscess without bleeding; Z95.810 Presence of automatic (implantable) cardiac defibrillator; J44.9 Chronic obstructive pulmonary disease, unspecified; K59.00 Constipation, unspecified; N28.9 Disorder of kidney and ureter, unspecified; M79.7 Fibromyalgia; Z87.891 Personal history of nicotine dependence; Z99.81 Dependence on supplemental oxygen; I50.20 Unspecified systolic (congestive) heart failure; N12 Tubulo-interstitial nephritis, not specified as acute or chronic; E78.5 Hyperlipidemia, unspecified; Z98.61 Coronary angioplasty status
CPT/HCPCS: 36415; 74176-TC; 76830-TC; 80048; 80053; 81003; 82962; 83735; 84100; 84484; 85025; 85027; 85610; 85730; 86780; 87086; 87186; 87389; 87491; 87591; 87661; 93005; 93010; 96361; 96365; 96367; 96372; 96375; 97116-GP; 97161-GP; 99285-25; G0378

== ENCOUNTER 2023-04-30 15:42 | Inpatient (IN) | payer OTHER ==
[2023-04-30 15:51] VITALS: BMI 25.4
[2023-04-30] MEDS ORDERED: FAMOTIDINE 20 MG/50 ML IVPB 20 MG/50 ML MG IVPB ONE (17:46)
[2023-04-30] MEDS ORDERED: MAG HYDROX/AL HYDROX/SIMETH -MYLANTA- ORAL SUSPENSION PO ONE (17:46)
[2023-04-30 18:38] LABS: HEMATOCRIT 35.8 % (32.4-45.2); HEMOGLOBIN 12.8 GM/dL (10.7-15.3); MCH 31.7 pg (25.7-33.7); MCHC 35.7 g/dl (32.0-36.0); MEAN CELL VOLUME 88.6 fl (80-96); MEAN PLT VOLUME 7.1 fl (7.5-11.1); PLATELET COUNT 280 10^3/uL (134-434); RBC 4.04 M/mm3 (3.60-5.2); RDW 16.3 % (11.6-15.6); WHITE BLOOD COUNT 7.1 K/mm3 (4.0-10.0)
[2023-04-30 18:41] LABS: EPI CELLS >36 /uL (0-25.1); HYALINE CASTS 1 /uL (0-3.1); URINE APPEARANCE CLEAR; URINE BACTERIA 69 /uL (0-1359); URINE BILIRUBIN NEGATIVE (NEGATIVE); URINE COLOR YELLOW; URINE GLUCOSE (UA) NEGATIVE (NEGATIVE); URINE KETONE NEGATIVE (NEGATIVE); URINE LEUK ESTERASE 2+ (NEGATIVE); URINE NITRITE NEGATIVE (NEGATIVE); URINE PROTEIN NEGATIVE (NEGATIVE); URINE RBC 13 /uL (0-23.9); URINE WBC 152 /uL (0-25.8)
[2023-04-30 18:42] LABS: CHLORIDE 93 mmol/L (98-107); SODIUM 136 mmol/L (136-145)
[2023-04-30 18:44] LABS: CALCIUM 7.8 mg/dL (8.5-10.1)
[2023-04-30 18:45] LABS: ALBUMIN 3.6 g/dl (3.4-5.0); BLOOD UREA NITROGEN 4.2 mg/dL (7-18); CO2 34 mmol/L (21-32); GLUCOSE,RANDOM 181 mg/dL (74-106); MAGNESIUM 1.3 mg/dL (1.8-2.4)
[2023-04-30 18:47] LABS: INR 1.27 (0.83-1.09); PROTHROMBIN TIME (PATIENT) 14.7 SEC (9.7-13.0)
[2023-04-30 18:48] LABS: PHOSPHOROUS 2.4 mg/dL (2.5-4.9); SGOT/AST 26 U/L (15-37); SGPT/ALT 10 U/L (13-61)
[2023-04-30 18:49] LABS: BILIRUBIN,TOTAL 1.1 mg/dL (0.2-1); TOT PROT 7.7 g/dl (6.4-8.2)
[2023-04-30 18:51] LABS: ALK PHOS 152 U/L (45-117)
[2023-04-30 18:53] LABS: ANION GAP 9 mmol/L (4-13); POTASSIUM 2.7 mmol/L (3.5-5.1)
[2023-04-30] MEDS ORDERED: FAMOTIDINE 10 MG/ML VIAL IVPB ONE (18:56)
[2023-04-30] MEDS ORDERED: MAG HYDROX/AL HYDROX/SIMETH 30 ML UNIT-DOSE CUP ONE (18:56)
[2023-04-30] MEDS ORDERED: POTASSIUM CHLORIDE ORAL LIQUID 20 MEQ/15 ML PO ONE ×2 (19:10→23:57)
[2023-04-30] MEDS ORDERED: MAGNESIUM SULFATE IN WATER 2 GM/50 ML IVPB IVPB ONE ×2 (19:11→19:32)
[2023-04-30] MEDS ORDERED: SODIUM CHLORIDE 500 ML IV STA (19:14)
[2023-04-30] MEDS ORDERED: POTASSIUM CHLORIDE ORAL LIQUID 20 MEQ/15 ML ONE (19:32)
[2023-04-30] MEDS ORDERED: KCL 10 MEQ IVPB 10 MEQ/100 ML INFUS.BAG IVPB ONE (19:34)
[2023-04-30] MEDS ORDERED: ACETAMINOPHEN 1000 MG/100 ML BAG IVPB ONE (20:34)
[2023-04-30] MEDS ORDERED: LIDOCAINE 5% TOPICAL PATCH TP ONE (20:35)
[2023-04-30] MEDS ORDERED: ACETAMINOPHEN INJECTION 100 ML IVPB ONE (20:45)
[2023-04-30] MEDS ORDERED: LIDOCAINE 4% PATCH TP ONE (20:45)
[2023-04-30 21:06] LABS: CHLORIDE 95 mmol/L (98-107); SODIUM 138 mmol/L (136-145)
[2023-04-30 21:08] LABS: ALBUMIN 3.4 g/dl (3.4-5.0); CALCIUM 7.6 mg/dL (8.5-10.1); CO2 37 mmol/L (21-32); GLUCOSE,RANDOM 129 mg/dL (74-106)
[2023-04-30 21:09] LABS: BLOOD UREA NITROGEN 4.4 mg/dL (7-18)
[2023-04-30 21:11] LABS: CREATININE 0.9 mg/dL (0.55-1.3); SGPT/ALT 8 U/L (13-61)
[2023-04-30 21:12] LABS: SGOT/AST 12 U/L (15-37)
[2023-04-30 21:14] LABS: ALK PHOS 140 U/L (45-117)
[2023-04-30 21:29] LABS: ANION GAP 7 mmol/L (4-13); POTASSIUM 2.4 mmol/L (3.5-5.1)
[2023-04-30] MEDS ORDERED: LIDOCAINE PATCH REMOVAL MC SCH (22:00)
[2023-04-30] MEDS: KCL 10 MEQ IVPB 10 MEQ/100 ML INFUS.BAG IVPB SCH ×2 (22:59→23:00)
[2023-04-30 23:19] LABS: LACTIC ACID 5.9 mmol/L (0.4-2.0)
[2023-05-01] MEDS ORDERED: POTASSIUM CHLORIDE ORAL LIQUID 20 MEQ/15 ML ONE (00:43)
[2023-05-01] MEDS: SODIUM CHLORIDE 0.9% 500 ML INFUS.BAG IV ONE ×2 (00:45→01:17)
[2023-05-01] MEDS: KCL 10 MEQ IVPB 10 MEQ/100 ML INFUS.BAG IVPB SCH ×3 (01:17→03:01)
[2023-05-01] MEDS ORDERED: SODIUM CHLORIDE 500 ML IV STA ×2 (01:34→09:14)
[2023-05-01] MEDS ORDERED: POTASSIUM CHLORIDE TABS 10 MEQ TABLET.ER (FP) PO ONE (02:30)
[2023-05-01] MEDS ORDERED: NAPH,MB-DB/K PH,MBDB POWDER PACKET ONE ×3 (02:38→21:47)
[2023-05-01] MEDS ORDERED: POTASSIUM CHLORIDE TABS 20 MEQ TABLET.ER (FP) PO ONE ×2 (02:38→09:06)
[2023-05-01] MEDS: NAPH,MB-DB/K PH,MBDB POWDER PACKET PO SCH ×4 (02:45→21:54)
[2023-05-01] MEDS ORDERED: ALBUTEROL SO4 HFA INHALER IH PRN (04:08)
[2023-05-01] MEDS: INSULIN SLIDING SCALE (NOVOLOG) 1 VIAL SQ SCH ×4 (07:40→22:18)
[2023-05-01] MEDS ORDERED: LIDOCAINE PATCH REMOVAL MC ONE (09:00)
[2023-05-01] MEDS ORDERED: ACETAMINOPHEN 325 MG TABLET (FP) PO PRN (09:03)
[2023-05-01] MEDS ORDERED: POTASSIUM CHLORIDE ORAL LIQUID 20 MEQ/15 ML PO ONE (09:06)
[2023-05-01] MEDS ORDERED: ERTAPENEM SODIUM 1 GM VIAL ONE (09:43)
[2023-05-01] MEDS ORDERED: ACETAMINOPHEN 325 MG TABLET (FP) ONE ×2 (09:47→21:47)
[2023-05-01] MEDS ORDERED: NAPH,MB-DB/K PH,MBDB POWDER PACKET PO SCH (10:00)
[2023-05-01] MEDS ORDERED: ERTAPENEM SODIUM 1 GM in SODIUM CHLORIDE 50 ML IVPB SCH (10:00)
[2023-05-01] MEDS: DULoxetine HCL 30 MG CAPSULE.DR PO SCH (10:09)
[2023-05-01] MEDS: busPIRone HCL 5 MG TABLET PO SCH ×2 (10:09→21:54)
[2023-05-01] MEDS: BUDESONIDE/FORMETEROL FUMARATE 160/4.5 mcg INHALER IH SCH ×2 (10:10→21:55)
[2023-05-01] MEDS: ENOXAPARIN NA (PORCINE) 40 MG/0.4 ML DISP.SYRIN SQ SCH (10:25)
[2023-05-01 14:05] LABS: BASO % 0.6 % (0-2.0); EOS % 2.4 % (0-4.5); HEMATOCRIT 31.7 % (32.4-45.2); HEMOGLOBIN 11.4 GM/dL (10.7-15.3); LYMPH % 24.4 % (8-40); MCH 32.2 pg (25.7-33.7); MCHC 36.1 g/dl (32.0-36.0); MEAN CELL VOLUME 89.2 fl (80-96); MEAN PLT VOLUME 6.5 fl (7.5-11.1); MONO % 4.4 % (3.8-10.2); NEUT % 68.2 % (42.8-82.8); PLATELET COUNT 229 10^3/uL (134-434); RBC 3.55 M/mm3 (3.60-5.2); WHITE BLOOD COUNT 4.8 K/mm3 (4.0-10.0)
[2023-05-01 14:31] LABS: POTASSIUM 3.8 mmol/L (3.5-5.1)
[2023-05-01 14:33] LABS: ALBUMIN 3.3 g/dl (3.4-5.0); BLOOD UREA NITROGEN 3.4 mg/dL (7-18); CALCIUM 7.2 mg/dL (8.5-10.1)
[2023-05-01 14:37] LABS: CREATININE 0.8 mg/dL (0.55-1.3)
[2023-05-01 14:38] LABS: BILIRUBIN,TOTAL 0.5 mg/dL (0.2-1); TOT PROT 6.7 g/dl (6.4-8.2)
[2023-05-01 14:40] LABS: LACTIC ACID 2.2 mmol/L (0.4-2.0)
[2023-05-01] MEDS ORDERED: busPIRone HCL 5 MG TABLET ONE (21:47)
[2023-05-01] MEDS ORDERED: ATORVASTATIN CA 40 MG TABLET (FP) ONE (21:47)
[2023-05-01] MEDS ORDERED: QUEtiapine FUMARATE 25 MG TABLET ONE (21:47)
[2023-05-01] MEDS: QUEtiapine FUMARATE 50 MG TABLET PO SCH (21:54)
[2023-05-01] MEDS: ATORVASTATIN CA 40 MG TABLET (FP) PO SCH (21:54)
[2023-05-02] MEDS ORDERED: ACETAMINOPHEN INJECTION 100 ML IVPB ONE ×2 (02:23→08:44)
[2023-05-02] MEDS: ACETAMINOPHEN 1000 MG/100 ML BAG IVPB PRN ×2 (02:28→11:05)
[2023-05-02] MEDS ORDERED: LORazepam 1 MG TABLET PO ONE (02:54)
[2023-05-02] MEDS ORDERED: LORazepam 1 MG TABLET ONE (03:21)
[2023-05-02] MEDS ORDERED: diazePAM 5 MG TABLET PO ONE (04:43)
[2023-05-02] MEDS ORDERED: diazePAM 5 MG TABLET ONE (04:45)
[2023-05-02] MEDS ORDERED: NAPH,MB-DB/K PH,MBDB POWDER PACKET ONE ×2 (06:04→22:25)
[2023-05-02] MEDS: INSULIN SLIDING SCALE (NOVOLOG) 1 VIAL SQ SCH ×4 (06:09→23:15)
[2023-05-02] MEDS: NAPH,MB-DB/K PH,MBDB POWDER PACKET PO SCH ×3 (06:09→23:14)
[2023-05-02] MEDS: busPIRone HCL 5 MG TABLET PO SCH ×2 (09:33→23:14)
[2023-05-02] MEDS: ENOXAPARIN NA (PORCINE) 40 MG/0.4 ML DISP.SYRIN SQ SCH (09:33)
[2023-05-02] MEDS: ERTAPENEM SODIUM 1 GM in SODIUM CHLORIDE 50 ML IVPB SCH (09:33)
[2023-05-02] MEDS: DULoxetine HCL 30 MG CAPSULE.DR PO SCH (09:33)
[2023-05-02] MEDS: BUDESONIDE/FORMETEROL FUMARATE 160/4.5 mcg INHALER IH SCH ×2 (09:34→23:15)
[2023-05-02 11:09] LABS: MAGNESIUM 1.6 mg/dL (1.8-2.4)
[2023-05-02 11:13] LABS: PHOSPHOROUS 3.6 mg/dL (2.5-4.9)
[2023-05-02] MEDS ORDERED: MAGNESIUM SULF 50% (8.12 MEQ/2 ML-1 GM VIAL) IVPB ONE (17:51)
[2023-05-02] MEDS ORDERED: MAGNESIUM SULFATE IN WATER 2 GM/50 ML IVPB IVPB ONE (18:27)
[2023-05-02] MEDS ORDERED: ATORVASTATIN CA 40 MG TABLET (FP) ONE (22:23)
[2023-05-02] MEDS ORDERED: busPIRone HCL 5 MG TABLET ONE (22:23)
[2023-05-02] MEDS ORDERED: QUEtiapine FUMARATE 25 MG TABLET ONE (22:25)
[2023-05-02] MEDS: ATORVASTATIN CA 40 MG TABLET (FP) PO SCH (23:14)
[2023-05-02] MEDS: QUEtiapine FUMARATE 50 MG TABLET PO SCH (23:15)
[2023-05-03] MEDS ORDERED: NAPH,MB-DB/K PH,MBDB POWDER PACKET ONE (05:06)
[2023-05-03] MEDS: NAPH,MB-DB/K PH,MBDB POWDER PACKET PO SCH ×3 (05:18→21:33)
[2023-05-03 06:24] LABS: BASO % 0.9 % (0-2.0); EOS % 3.1 % (0-4.5); HEMATOCRIT 29.2 % (32.4-45.2); HEMOGLOBIN 10.4 GM/dL (10.7-15.3); LYMPH % 30.8 % (8-40); MCH 31.8 pg (25.7-33.7); MCHC 35.4 g/dl (32.0-36.0); MEAN CELL VOLUME 89.6 fl (80-96); MEAN PLT VOLUME 6.2 fl (7.5-11.1); MONO % 5.6 % (3.8-10.2); NEUT % 59.6 % (42.8-82.8); PLATELET COUNT 228 10^3/uL (134-434); RBC 3.26 M/mm3 (3.60-5.2); WHITE BLOOD COUNT 4.4 K/mm3 (4.0-10.0)
[2023-05-03] MEDS: INSULIN SLIDING SCALE (NOVOLOG) 1 VIAL SQ SCH ×4 (06:33→21:33)
[2023-05-03 06:36] LABS: INR 1.2 (0.83-1.09); PROTHROMBIN TIME (PATIENT) 13.9 SEC (9.7-13.0)
[2023-05-03 06:49] LABS: CHLORIDE 103 mmol/L (98-107); POTASSIUM 3.4 mmol/L (3.5-5.1); SODIUM 139 mmol/L (136-145)
[2023-05-03 06:54] LABS: ANION GAP 8 mmol/L (4-13); CALCIUM 7.8 mg/dL (8.5-10.1); CO2 29 mmol/L (21-32)
[2023-05-03 06:55] LABS: GLUCOSE,RANDOM 133 mg/dL (74-106)
[2023-05-03 06:58] LABS: BLOOD UREA NITROGEN 2.9 mg/dL (7-18); CREATININE 0.6 mg/dL (0.55-1.3); PHOSPHOROUS 3.9 mg/dL (2.5-4.9)
[2023-05-03] MEDS: DULoxetine HCL 30 MG CAPSULE.DR PO SCH (10:11)
[2023-05-03] MEDS: ENOXAPARIN NA (PORCINE) 40 MG/0.4 ML DISP.SYRIN SQ SCH (10:11)
[2023-05-03] MEDS: busPIRone HCL 5 MG TABLET PO SCH ×2 (10:11→21:32)
[2023-05-03] MEDS: BUDESONIDE/FORMETEROL FUMARATE 160/4.5 mcg INHALER IH SCH ×2 (10:11→22:30)
[2023-05-03] MEDS: ASPIRIN 81 MG CHEWABLE TABLETS PO SCH (10:11)
[2023-05-03] MEDS: ERTAPENEM SODIUM 1 GM in SODIUM CHLORIDE 50 ML IVPB SCH (10:11)
[2023-05-03 10:54] LABS: CHLORIDE 103 mmol/L (98-107); SODIUM 142 mmol/L (136-145)
[2023-05-03 10:56] LABS: ALBUMIN 2.9 g/dl (3.4-5.0); ANION GAP 9 mmol/L (4-13); CALCIUM 7.9 mg/dL (8.5-10.1); CO2 30 mmol/L (21-32); GLUCOSE,RANDOM 142 mg/dL (74-106)
[2023-05-03 10:59] LABS: CREATININE 0.6 mg/dL (0.55-1.3); SGOT/AST 12 U/L (15-37); SGPT/ALT 7 U/L (13-61)
[2023-05-03 11:01] LABS: BILIRUBIN,TOTAL 0.4 mg/dL (0.2-1); TOT PROT 5.6 g/dl (6.4-8.2)
[2023-05-03 11:02] LABS: ALK PHOS 110 U/L (45-117)
[2023-05-03 11:04] LABS: BLOOD UREA NITROGEN 2.7 mg/dL (7-18)
[2023-05-03] MEDS ORDERED: POTASSIUM CHLORIDE TABS 20 MEQ TABLET.ER (FP) PO ONE (16:25)
[2023-05-03] MEDS: POLYETHYLENE GLYCOL (HEALTHYLAX) 3350 17 GM PACKET PO SCH ×2 (17:12→17:18)
[2023-05-03] MEDS: DOCUSATE NA 100 MG/10 ML UNIT-DOSE CUPS PO ONE ×2 (17:12→17:19)
[2023-05-03] MEDS ORDERED: QUEtiapine FUMARATE 25 MG TABLET ONE (21:19)
[2023-05-03] MEDS: ATORVASTATIN CA 40 MG TABLET (FP) PO SCH (21:33)
[2023-05-03] MEDS: QUEtiapine FUMARATE 50 MG TABLET PO SCH (21:36)
[2023-05-04] MEDS: INSULIN SLIDING SCALE (NOVOLOG) 1 VIAL SQ SCH ×3 (06:39→17:08)
[2023-05-04] MEDS: NAPH,MB-DB/K PH,MBDB POWDER PACKET PO SCH ×3 (06:39→21:48)
[2023-05-04 08:35] LABS: BASO % 0.5 % (0-2.0); EOS % 2.5 % (0-4.5); HEMATOCRIT 30.4 % (32.4-45.2); HEMOGLOBIN 10.4 GM/dL (10.7-15.3); LYMPH % 31.3 % (8-40); MCHC 34.3 g/dl (32.0-36.0); MEAN CELL VOLUME 90.4 fl (80-96); MEAN PLT VOLUME 6.7 fl (7.5-11.1); MONO % 5.6 % (3.8-10.2); NEUT % 60.1 % (42.8-82.8); PLATELET COUNT 212 10^3/uL (134-434); POTASSIUM 3.7 mmol/L (3.5-5.1); RBC 3.37 M/mm3 (3.60-5.2); RDW 15.7 % (11.6-15.6); WHITE BLOOD COUNT 4.7 K/mm3 (4.0-10.0)
[2023-05-04 08:43] LABS: BLOOD UREA NITROGEN 4.8 mg/dL (7-18)
[2023-05-04 08:46] LABS: ALBUMIN 2.9 g/dl (3.4-5.0); CALCIUM 7.8 mg/dL (8.5-10.1); CREATININE 0.6 mg/dL (0.55-1.3); MAGNESIUM 1.6 mg/dL (1.8-2.4); PHOSPHOROUS 3.9 mg/dL (2.5-4.9); TOT PROT 5.8 g/dl (6.4-8.2)
[2023-05-04] MEDS: ENOXAPARIN NA (PORCINE) 40 MG/0.4 ML DISP.SYRIN SQ SCH (09:27)
[2023-05-04] MEDS: DULoxetine HCL 30 MG CAPSULE.DR PO SCH ×2 (09:28→22:06)
[2023-05-04] MEDS: ASPIRIN 81 MG CHEWABLE TABLETS PO SCH (09:29)
[2023-05-04] MEDS: ERTAPENEM SODIUM 1 GM in SODIUM CHLORIDE 50 ML IVPB SCH (09:32)
[2023-05-04] MEDS: BUDESONIDE/FORMETEROL FUMARATE 160/4.5 mcg INHALER IH SCH ×2 (09:34→22:07)
[2023-05-04] MEDS: busPIRone HCL 5 MG TABLET PO SCH ×2 (11:32→21:46)
[2023-05-04] MEDS ORDERED: SACUBITRIL/VALSARTAN 24 MG-26 MG TABLET PO SCH (13:00)
[2023-05-04] MEDS ORDERED: LACTATED RINGERS SOLUTION 1,000 ML/1,000 ML INFUS.BAG IV SCH (13:00)
[2023-05-04] MEDS: LORazepam 1 MG TABLET PO PRN ×2 (13:17→21:48)
[2023-05-04] MEDS: ACETAMINOPHEN 1000 MG/100 ML BAG IVPB PRN ×2 (13:58→22:11)
[2023-05-04] MEDS: GABAPENTIN 300 MG CAPSULE PO SCH ×2 (15:25→21:47)
[2023-05-04] MEDS: POLYETHYLENE GLYCOL (HEALTHYLAX) 3350 17 GM PACKET PO SCH (16:32)
[2023-05-04] MEDS ORDERED: MAGNESIUM OXIDE 400 MG TABLET (FP) PO ONE (17:38)
[2023-05-04] MEDS: ATORVASTATIN CA 40 MG TABLET (FP) PO SCH (21:47)
[2023-05-04] MEDS ORDERED: CARVEDILOL 12.5 MG TABLET (FP) PO SCH (22:00)
[2023-05-04] MEDS: BANATROL PLUS POWDER PACKET PO SCH ×2 (22:06→22:10)
[2023-05-04] MEDS: traZODone HCL 100 MG TABLET (FP) PO SCH (22:06)
[2023-05-04] MEDS: QUEtiapine FUMARATE 25 MG TABLET PO SCH (22:06)
[2023-05-05] MEDS: BANATROL PLUS POWDER PACKET PO SCH ×3 (05:23→21:08)
[2023-05-05] MEDS: GABAPENTIN 300 MG CAPSULE PO SCH ×3 (06:20→21:09)
[2023-05-05] MEDS: sitaGLIPtin PHOSPHATE 50 MG TABLET PO SCH (06:20)
[2023-05-05] MEDS: NAPH,MB-DB/K PH,MBDB POWDER PACKET PO SCH ×3 (06:20→21:10)
[2023-05-05] MEDS: INSULIN SLIDING SCALE (NOVOLOG) 1 VIAL SQ SCH ×3 (06:25→17:41)
[2023-05-05 07:36] LABS: POTASSIUM 4.4 mmol/L (3.5-5.1)
[2023-05-05 07:51] LABS: ALBUMIN 3.1 g/dl (3.4-5.0)
[2023-05-05 07:54] LABS: CREATININE 0.7 mg/dL (0.55-1.3)
[2023-05-05 07:55] LABS: BILIRUBIN,TOTAL 1.1 mg/dL (0.2-1); TOT PROT 6.3 g/dl (6.4-8.2)
[2023-05-05] MEDS ORDERED: IBUPROFEN 400 MG TABLET (FP) PO ONE (09:45)
[2023-05-05] MEDS: QUEtiapine FUMARATE 25 MG TABLET PO SCH ×2 (09:58→21:10)
[2023-05-05] MEDS: DULoxetine HCL 30 MG CAPSULE.DR PO SCH ×2 (09:58→21:09)
[2023-05-05] MEDS: ASPIRIN 81 MG CHEWABLE TABLETS PO SCH (09:58)
[2023-05-05] MEDS: SACUBITRIL/VALSARTAN 24 MG-26 MG TABLET PO SCH ×2 (09:59→21:09)
[2023-05-05] MEDS: EMPAGLIFLOZIN (JARDIANCE) 10 MG TABLET PO SCH (09:59)
[2023-05-05] MEDS: ENOXAPARIN NA (PORCINE) 40 MG/0.4 ML DISP.SYRIN SQ SCH (10:00)
[2023-05-05] MEDS: BUDESONIDE/FORMETEROL FUMARATE 160/4.5 mcg INHALER IH SCH ×2 (12:08→21:12)
[2023-05-05] MEDS: busPIRone HCL 5 MG TABLET PO SCH ×2 (13:53→21:08)
[2023-05-05] MEDS ORDERED: IBUPROFEN 600 MG TABLET (FP) PO PRN (14:35)
[2023-05-05] MEDS: LORazepam 1 MG TABLET PO PRN (17:01)
[2023-05-05] MEDS: POLYETHYLENE GLYCOL (HEALTHYLAX) 3350 17 GM PACKET PO SCH (17:41)
[2023-05-05] MEDS: traZODone HCL 100 MG TABLET (FP) PO SCH (21:08)
[2023-05-05] MEDS: ATORVASTATIN CA 40 MG TABLET (FP) PO SCH (21:08)
[2023-05-06] MEDS: BANATROL PLUS POWDER PACKET PO SCH ×2 (06:17→14:18)
[2023-05-06] MEDS: GABAPENTIN 300 MG CAPSULE PO SCH ×2 (06:17→14:15)
[2023-05-06] MEDS: NAPH,MB-DB/K PH,MBDB POWDER PACKET PO SCH (06:17)
[2023-05-06] MEDS: INSULIN SLIDING SCALE (NOVOLOG) 1 VIAL SQ SCH ×2 (06:21→11:31)
[2023-05-06] MEDS: sitaGLIPtin PHOSPHATE 50 MG TABLET PO SCH (06:21)
[2023-05-06 06:40] VITALS: RESP 14
[2023-05-06] MEDS ORDERED: IBUPROFEN 600 MG TABLET (FP) PO PRN (07:24)
[2023-05-06 08:04] LABS: HEMOGLOBIN 11.4 GM/dL (10.7-15.3); MCH 30.8 pg (25.7-33.7); MCHC 33.4 g/dl (32.0-36.0); MEAN PLT VOLUME 6.3 fl (7.5-11.1); PLATELET COUNT 210 10^3/uL (134-434); RDW 15.4 % (11.6-15.6); WHITE BLOOD COUNT 5.2 K/mm3 (4.0-10.0)
[2023-05-06 08:36] LABS: POTASSIUM 5.6 mmol/L (3.5-5.1)
[2023-05-06 08:40] LABS: ALBUMIN 3.1 g/dl (3.4-5.0); CALCIUM 8.2 mg/dL (8.5-10.1)
[2023-05-06 08:41] LABS: BLOOD UREA NITROGEN 9.9 mg/dL (7-18)
[2023-05-06 08:43] LABS: CREATININE 0.7 mg/dL (0.55-1.3)
[2023-05-06 08:45] LABS: BILIRUBIN,TOTAL 0.6 mg/dL (0.2-1); TOT PROT 6.2 g/dl (6.4-8.2)
[2023-05-06] MEDS: ENOXAPARIN NA (PORCINE) 40 MG/0.4 ML DISP.SYRIN SQ SCH (09:56)
[2023-05-06] MEDS: LORazepam 1 MG TABLET PO PRN (09:56)
[2023-05-06] MEDS: ASPIRIN 81 MG CHEWABLE TABLETS PO SCH (09:56)
[2023-05-06] MEDS: DULoxetine HCL 30 MG CAPSULE.DR PO SCH (09:57)
[2023-05-06] MEDS: EMPAGLIFLOZIN (JARDIANCE) 10 MG TABLET PO SCH (09:57)
[2023-05-06] MEDS: busPIRone HCL 5 MG TABLET PO SCH (09:57)
[2023-05-06] MEDS: SACUBITRIL/VALSARTAN 24 MG-26 MG TABLET PO SCH (09:57)
[2023-05-06] MEDS: QUEtiapine FUMARATE 25 MG TABLET PO SCH (09:58)
[2023-05-06] MEDS: BUDESONIDE/FORMETEROL FUMARATE 160/4.5 mcg INHALER IH SCH (09:58)
[2023-05-06] MEDS ORDERED: LIDOCAINE 4% PATCH TP SCH (10:00)
[2023-05-06 15:32] VITALS: BP 90/52; PULSE 63; TEMP 97.9
[2023-05-06] MEDS ORDERED: LIDOCAINE PATCH REMOVAL MC SCH (22:00)
== END 2023-05-06 17:07 | disposition home or self-care (01) | DRG 690 ==
LOC: JER 15:42 → JERBED 20:29 → OBSVTOIN 05-01 00:28 → J4S 05-03 13:32
PROVIDERS: ADMIT Internal Medicine; ATTEND Internal Medicine
DX: N39.0 Urinary tract infection, site not specified (principal); I50.22 Chronic systolic (congestive) heart failure; E27.40 Unspecified adrenocortical insufficiency; I42.0 Dilated cardiomyopathy; E87.4 Mixed disorder of acid-base balance; F50.2 Bulimia nervosa; I47.20 Ventricular tachycardia, unspecified; E87.20 Acidosis, unspecified; I11.0 Hypertensive heart disease with heart failure; E11.9 Type 2 diabetes mellitus without complications; J44.9 Chronic obstructive pulmonary disease, unspecified; E78.5 Hyperlipidemia, unspecified; I25.10 Atherosclerotic heart disease of native coronary artery without angina pectoris; E83.39 Other disorders of phosphorus metabolism; R29.6 Repeated falls; E87.6 Hypokalemia; R63.0 Anorexia; E83.42 Hypomagnesemia; F41.8 Other specified anxiety disorders; Z95.5 Presence of coronary angioplasty implant and graft
CPT/HCPCS: 0241U-QW; 36415; 70450-TC; 71046-TC-FY; 72125-TC; 72131-TC; 72170-TC-FY; 73030-TC-LT-FY; 74177-TC; 76705-TC; 80048; 80053; 81003; 82436; 82550; 82728; 82962; 83540; 83550; 83605; 83735; 83880; 84100; 84132; 84133; 84300; 84484; 85025; 85027; 85610; 86850; 86900; 86901; 87040; 87086; 93005; 93010; 97116-GP; 97161-GP; 99285-25; G0378; Q9967

== ENCOUNTER 2023-06-27 17:37 | Emergency (ER) | payer OTHER ==
[2023-06-27] MEDS ORDERED: ALPRAZolam 0.25 MG TABLET ONE (18:43)
[2023-06-27] MEDS: ALPRAZolam 1 MG TABLET PO STA (18:47)
[2023-06-27] MEDS ORDERED: QUEtiapine FUMARATE 25 MG TABLET ONE (19:08)
[2023-06-27] MEDS: QUEtiapine FUMARATE 50 MG TABLET PO ONE (19:09)
[2023-06-27 19:16] VITALS: BP 117/73; PULSE 63; RESP 19; TEMP 97.9; BMI 25.4
== END 2023-06-27 19:39 | disposition home or self-care (01) ==
LOC: JER 17:37
DX: R41.82 Altered mental status, unspecified (principal)
CPT/HCPCS: 99283-25

== ENCOUNTER 2023-06-30 00:53 | Emergency (ER) | payer OTHER ==
[2023-06-30 01:01] VITALS: BP 111/74; PULSE 87; RESP 20; TEMP 97.5; BMI 25.4
[2023-06-30] MEDS ORDERED: QUEtiapine FUMARATE 25 MG TABLET PO ONE (01:40)
[2023-06-30] MEDS ORDERED: GABAPENTIN 300 MG CAPSULE PO ONE (01:41)
[2023-06-30] MEDS ORDERED: GABAPENTIN 300 MG CAPSULE ONE (01:49)
[2023-06-30] MEDS ORDERED: QUEtiapine FUMARATE 25 MG TABLET ONE (01:49)
[2023-06-30] MEDS ORDERED: traZODone HCL 50 MG TABLET (FP) PO ONE (02:09)
[2023-06-30] MEDS ORDERED: traZODone HCL 50 MG TABLET (FP) ONE (02:14)
== END 2023-06-30 02:51 | disposition home or self-care (01) ==
LOC: JER 00:53
DX: G62.9 Polyneuropathy, unspecified (principal); G25.81 Restless legs syndrome; M79.604 Pain in right leg; M79.605 Pain in left leg; R22.43 Localized swelling, mass and lump, lower limb, bilateral
CPT/HCPCS: 71045-TC-FY; 99283-25

== ENCOUNTER 2023-07-05 21:32 | Emergency (ER) | payer OTHER ==
[2023-07-05 21:51] VITALS: BP 147/71; PULSE 78; RESP 18; TEMP 98.1; BMI 24.4
[2023-07-05] MEDS ORDERED: KETOROLAC TROMETHAMINE 30 MG/1 ML VIAL IVPUSH ONE (23:33)
[2023-07-05] MEDS ORDERED: LORazepam 2 MG TABLET PO ONE (23:33)
== END 2023-07-05 23:44 | disposition left against medical advice (07) ==
LOC: JER 21:32 → JERFT 21:32 → JER 23:44
DX: F13.930 Sedative, hypnotic or anxiolytic use, unspecified with withdrawal, uncomplicated (principal)
CPT/HCPCS: 99283-25

== ENCOUNTER 2023-07-19 19:13 | Observation (INO) | payer OTHER ==
[2023-07-19 19:22] VITALS: BMI 24.4
[2023-07-19] MEDS ORDERED: FAMOTIDINE 20 MG/50 ML IVPB 20 MG/50 ML MG IVPB ONE ×2 (21:04→21:17)
[2023-07-19] MEDS ORDERED: ACETAMINOPHEN 1000 MG/100 ML BAG IVPB ONE (21:04)
[2023-07-19] MEDS ORDERED: ONDANSETRON 4 MG/2 ML VIAL IVPUSH ONE (21:04)
[2023-07-19] MEDS ORDERED: ONDANSETRON 4 MG/2 ML VIAL ONE (21:17)
[2023-07-19] MEDS ORDERED: ACETAMINOPHEN INJECTION 100 ML IVPB ONE (21:17)
[2023-07-19 21:57] LABS: VENOUS BASE EXCESS 1.4 mmol/L (-2-2); VENOUS O2 SATURATION 93.7 % (70-80); VENOUS PCO2 37.6 mmHg (38-52); VENOUS PH 7.446 (7.310-7.410)
[2023-07-19 22:00] LABS: BASO % 0.5 % (0-2.0); EOS % 1.5 % (0-4.5); HEMOGLOBIN 12.4 GM/dL (10.7-15.3); LYMPH % 29.1 % (8-40); MCH 31.7 pg (25.7-33.7); MCHC 35.3 g/dl (32.0-36.0); MEAN CELL VOLUME 89.7 fl (80-96); MONO % 5.7 % (3.8-10.2); NEUT % 63.2 % (42.8-82.8); PLATELET COUNT 217 10^3/uL (134-434); RDW 16.6 % (11.6-15.6); WHITE BLOOD COUNT 7.8 K/mm3 (4.0-10.0)
[2023-07-19 22:22] LABS: CHLORIDE 101 mmol/L (98-107); SODIUM 138 mmol/L (136-145)
[2023-07-19 22:26] LABS: ALBUMIN 3.8 g/dl (3.4-5.0); BLOOD UREA NITROGEN 7.3 mg/dL (7-18); CALCIUM 8.9 mg/dL (8.5-10.1); CO2 26 mmol/L (21-32); MAGNESIUM 1.6 mg/dL (1.8-2.4)
[2023-07-19 22:29] LABS: CREATININE 1.2 mg/dL (0.55-1.3); SGOT/AST 7 U/L (15-37); SGPT/ALT 18 U/L (13-61)
[2023-07-19 22:31] LABS: ALK PHOS 101 U/L (45-117); BILIRUBIN,TOTAL 0.6 mg/dL (0.2-1)
[2023-07-19 22:45] LABS: LACTIC ACID 3.1 mmol/L (0.4-2.0)
[2023-07-19 22:45] LABS: ANION GAP 12 mmol/L (4-13); GLUCOSE,RANDOM 412 mg/dL (74-106); POTASSIUM 2.8 mmol/L (3.5-5.1)
[2023-07-19] MEDS ORDERED: SODIUM CHLORIDE 0.9% 500 ML INFUS.BAG IV ONE (22:46)
[2023-07-19] MEDS ORDERED: MAGNESIUM SULF 50% (8.12 MEQ/2 ML-1 GM VIAL) IVPB ONE (22:48)
[2023-07-19] MEDS ORDERED: MAGNESIUM SULFATE IN WATER 2 GM/50 ML IVPB IVPB ONE (23:19)
[2023-07-19] MEDS ORDERED: KCL 10 MEQ IVPB 30 MEQ/300 ML INFUS.BAG IVPB ONE (23:20)
[2023-07-19] MEDS ORDERED: QUEtiapine FUMARATE 25 MG TABLET PO ONE (23:45)
[2023-07-19] MEDS ORDERED: LORazepam 0.5 MG TABLET PO ONE (23:45)
[2023-07-19] MEDS ORDERED: GABAPENTIN 300 MG CAPSULE PO ONE (23:46)
[2023-07-19] MEDS ORDERED: QUEtiapine FUMARATE 25 MG TABLET ONE (23:46)
[2023-07-19] MEDS ORDERED: GABAPENTIN 300 MG CAPSULE ONE (23:46)
[2023-07-20] MEDS ORDERED: LORazepam 0.5 MG TABLET ONE (00:14)
[2023-07-20] MEDS: KCL 10 MEQ IVPB 10 MEQ/100 ML INFUS.BAG IVPB SCH ×3 (00:42→03:29)
[2023-07-20 01:13] LABS: PH,URINE 6.5 (5.0-8.0); URINE APPEARANCE CLEAR; URINE BILIRUBIN NEGATIVE (NEGATIVE); URINE COLOR YELLOW; URINE GLUCOSE (UA) 3+ (NEGATIVE); URINE KETONE NEGATIVE (NEGATIVE); URINE LEUK ESTERASE NEGATIVE (NEGATIVE); URINE NITRITE NEGATIVE (NEGATIVE); URINE PROTEIN NEGATIVE (NEGATIVE); URINE UROBILINOGEN 0.2 mg/dL (0.2-1.0)
[2023-07-20] MEDS ORDERED: morphine CARPU-JECT 4 MG/1 ML DISP.SYRIN IVPUSH ONE (01:47)
[2023-07-20] MEDS ORDERED: ZOLPIDEM TARTRATE 5 MG TABLET PO ONE ×2 (02:33→04:03)
[2023-07-20] MEDS ORDERED: ZOLPIDEM TARTRATE 5 MG TABLET ONE (02:34)
[2023-07-20] MEDS ORDERED: POTASSIUM CHLORIDE ORAL LIQUID 20 MEQ/15 ML PO ONE (02:56)
[2023-07-20] MEDS ORDERED: POTASSIUM CHLORIDE ORAL LIQUID 20 MEQ/15 ML ONE (03:24)
[2023-07-20] MEDS ORDERED: LORazepam 1 MG TABLET PO PRN (03:58)
[2023-07-20] MEDS ORDERED: ONDANSETRON 4 MG/2 ML VIAL IVPUSH PRN (04:02)
[2023-07-20 04:47] LABS: POTASSIUM 3.9 mmol/L (3.5-5.1)
[2023-07-20 04:48] LABS: BLOOD UREA NITROGEN 7.2 mg/dL (7-18); CALCIUM 8.5 mg/dL (8.5-10.1)
[2023-07-20 04:52] LABS: CREATININE 0.8 mg/dL (0.55-1.3)
[2023-07-20] MEDS ORDERED: GABAPENTIN 300 MG CAPSULE ONE (05:45)
[2023-07-20] MEDS: GABAPENTIN 300 MG CAPSULE PO SCH ×2 (05:46→13:06)
[2023-07-20] MEDS ORDERED: KETOROLAC TROMETHAMINE 15 MG/ML VIAL IVPUSH ONE (05:55)
[2023-07-20 05:56] LABS: LACTIC ACID 2.2 mmol/L (0.4-2.0)
[2023-07-20] MEDS ORDERED: traMADol HCL 50 MG TABLET PO ONE (05:57)
[2023-07-20] MEDS ORDERED: traMADol HCL 50 MG TABLET ONE (06:08)
[2023-07-20] MEDS ORDERED: KETOROLAC TROMETHAMINE 15 MG/ML VIAL ONE (06:08)
[2023-07-20] MEDS: INSULIN ASPART SLIDING SCALE (NOVOLOG) 1 VIAL SQ SCH ×2 (09:03→13:06)
[2023-07-20] MEDS ORDERED: SACUBITRIL/VALSARTAN 24 MG-26 MG TABLET PO SCH (10:00)
[2023-07-20] MEDS ORDERED: QUEtiapine FUMARATE 25 MG TABLET PO SCH (10:00)
[2023-07-20] MEDS ORDERED: BUDESONIDE/FORMETEROL FUMARATE 160/4.5 mcg INHALER IH SCH (10:00)
[2023-07-20] MEDS ORDERED: busPIRone HCL 10 MG TABLET (FP) PO SCH (10:00)
[2023-07-20] MEDS ORDERED: ENOXAPARIN NA (PORCINE) 40 MG/0.4 ML DISP.SYRIN SQ SCH (10:00)
[2023-07-20] MEDS ORDERED: CARVEDILOL 12.5 MG TABLET (FP) PO SCH (10:00)
[2023-07-20] MEDS ORDERED: DULoxetine HCL 30 MG CAPSULE.DR PO SCH (10:00)
[2023-07-20] MEDS ORDERED: ACETAMINOPHEN 325 MG TABLET (FP) PO ONE (14:38)
[2023-07-20 15:18] VITALS: BP 109/80; PULSE 77; RESP 18; TEMP 98
[2023-07-20] MEDS ORDERED: INSULIN (LEVEMIR) 100 UNITS/ML UNITS SQ SCH (22:00)
[2023-07-20] MEDS ORDERED: ATORVASTATIN CA 40 MG TABLET (FP) PO SCH (22:00)
[2023-07-20] MEDS ORDERED: ZOLPIDEM TARTRATE 5 MG TABLET PO PRN (22:00)
== END 2023-07-20 15:19 | disposition home or self-care (01) ==
LOC: JER 19:13 → JERBED 07-20 02:56
PROVIDERS: ADMIT Internal Medicine; ATTEND Internal Medicine
PROC: 3E033NZ Introduction of Analgesics, Hypnotics, Sedatives into Peripheral Vein, Percutaneous Approach (ICD-10-PCS; principal; 2023-07-20)
PROC: 3E023GC Introduction of Other Therapeutic Substance into Muscle, Percutaneous Approach (ICD-10-PCS; 2023-07-20)
PROC: 3E033GC Introduction of Other Therapeutic Substance into Peripheral Vein, Percutaneous Approach (ICD-10-PCS; 2023-07-20)
DX: E87.6 Hypokalemia (principal); I11.0 Hypertensive heart disease with heart failure; E11.40 Type 2 diabetes mellitus with diabetic neuropathy, unspecified; I25.2 Old myocardial infarction; Z95.5 Presence of coronary angioplasty implant and graft; J44.9 Chronic obstructive pulmonary disease, unspecified; F50.2 Bulimia nervosa; M79.10 Myalgia, unspecified site; Z87.891 Personal history of nicotine dependence; Z79.84 Long term (current) use of oral hypoglycemic drugs
CPT/HCPCS: 0241U-QW; 36415; 71045-TC-FY; 74177-TC; 80048; 80053; 81003; 82010; 82550; 82803; 82962; 83605; 83690; 83735; 84484; 85025; 87086; 93005; 93010; 96365; 96372; 96375; 99291; G0378

== ENCOUNTER 2023-08-05 17:06 | Observation (INO) | payer OTHER ==
[2023-08-05] MEDS ORDERED: SODIUM CHLORIDE 500 ML IV STA (18:01)
[2023-08-05 19:16] LABS: BASO % 0.6 % (0-2.0); EOS % 1.1 % (0-4.5); HEMATOCRIT 42.5 % (32.4-45.2); LYMPH % 19.1 % (8-40); MCH 32.4 pg (25.7-33.7); MCHC 35.3 g/dl (32.0-36.0); MEAN CELL VOLUME 91.6 fl (80-96); MEAN PLT VOLUME 7.4 fl (7.5-11.1); MONO % 4.9 % (3.8-10.2); NEUT % 74.3 % (42.8-82.8); PLATELET COUNT 256 10^3/uL (134-434); RBC 4.63 M/mm3 (3.60-5.2); RDW 17.5 % (11.6-15.6); WHITE BLOOD COUNT 11.7 K/mm3 (4.0-10.0)
[2023-08-05 19:34] LABS: POTASSIUM 3.3 mmol/L (3.5-5.1)
[2023-08-05 19:37] LABS: ALBUMIN 4.4 g/dl (3.4-5.0); BLOOD UREA NITROGEN 8.3 mg/dL (7-18)
[2023-08-05 19:39] LABS: INR 1.17 (0.83-1.09); PROTHROMBIN TIME (PATIENT) 13.6 SEC (9.7-13.0)
[2023-08-05 19:39] LABS: PHOSPHOROUS 4.7 mg/dL (2.5-4.9)
[2023-08-05 19:41] LABS: BILIRUBIN,TOTAL 1.4 mg/dL (0.2-1); TOT PROT 8.2 g/dl (6.4-8.2)
[2023-08-05 19:41] LABS: ACTIVATED PTT 27.7 SECONDS (25.2-36.5)
[2023-08-05] MEDS ORDERED: FAMOTIDINE 20 MG/50 ML IVPB 20 MG/50 ML MG IVPB ONE ×2 (19:55→20:05)
[2023-08-05] MEDS ORDERED: ACETAMINOPHEN 1000 MG/100 ML BAG IVPB ONE (19:55)
[2023-08-05] MEDS ORDERED: POTASSIUM CHLORIDE TABS 20 MEQ TABLET.ER (FP) PO ONE ×2 (20:01→20:05)
[2023-08-05] MEDS ORDERED: ACETAMINOPHEN INJECTION 100 ML IVPB ONE (20:04)
[2023-08-05] MEDS ORDERED: MAGNESIUM SULF 50% (8.12 MEQ/2 ML-1 GM VIAL) IVPB ONE (20:31)
[2023-08-05] MEDS ORDERED: morphine CARPU-JECT 2 MG/1 ML DISP.SYRIN IVPUSH ONE (21:10)
[2023-08-05] MEDS ORDERED: MAGNESIUM SULFATE IN WATER 2 GM/50 ML IVPB IVPB ONE (21:45)
[2023-08-05] MEDS: KCL 10 MEQ IVPB 10 MEQ/100 ML INFUS.BAG IVPB SCH ×2 (22:08→23:15)
[2023-08-05] MEDS ORDERED: KCL 10 MEQ IVPB 20 MEQ/200 ML INFUS.BAG IVPB ONE (22:09)
[2023-08-06] MEDS ORDERED: ACETAMINOPHEN 325 MG TABLET (FP) PO PRN (00:22)
[2023-08-06 00:27] LABS: PH,URINE 5.5 (5.0-8.0); URINE APPEARANCE CLEAR; URINE BILIRUBIN NEGATIVE (NEGATIVE); URINE COLOR YELLOW; URINE GLUCOSE (UA) 3+ (NEGATIVE); URINE KETONE NEGATIVE (NEGATIVE); URINE LEUK ESTERASE NEGATIVE (NEGATIVE); URINE NITRITE NEGATIVE (NEGATIVE); URINE PROTEIN NEGATIVE (NEGATIVE); URINE UROBILINOGEN 0.2 mg/dL (0.2-1.0)
[2023-08-06] MEDS: LORazepam 1 MG TABLET PO PRN ×2 (01:00→19:03)
[2023-08-06] MEDS ORDERED: LORazepam 1 MG TABLET ONE ×2 (01:04→18:59)
[2023-08-06] MEDS ORDERED: ACETAMINOPHEN 325 MG TABLET (FP) ONE (01:05)
[2023-08-06] MEDS ORDERED: morphine CARPU-JECT 2 MG/1 ML DISP.SYRIN IVPUSH ONE (03:58)
[2023-08-06] MEDS ORDERED: GABAPENTIN 300 MG CAPSULE PO SCH (06:00)
[2023-08-06] MEDS: GABAPENTIN 300 MG CAPSULE PO SCH ×3 (06:29→22:14)
[2023-08-06] MEDS ORDERED: GABAPENTIN 300 MG CAPSULE ONE ×2 (06:32→22:05)
[2023-08-06 08:00] LABS: POTASSIUM 3.6 mmol/L (3.5-5.1)
[2023-08-06 08:05] LABS: CALCIUM 8.1 mg/dL (8.5-10.1)
[2023-08-06 08:06] LABS: ALBUMIN 3.7 g/dl (3.4-5.0); BLOOD UREA NITROGEN 8.5 mg/dL (7-18); MAGNESIUM 2.3 mg/dL (1.8-2.4)
[2023-08-06 08:09] LABS: CREATININE 0.6 mg/dL (0.55-1.3); PHOSPHOROUS 2.9 mg/dL (2.5-4.9)
[2023-08-06 08:10] LABS: BILIRUBIN,TOTAL 1.6 mg/dL (0.2-1); TOT PROT 6.7 g/dl (6.4-8.2)
[2023-08-06 08:23] LABS: EOS % 2.1 % (0-4.5); HEMATOCRIT 36.6 % (32.4-45.2); HEMOGLOBIN 12.9 GM/dL (10.7-15.3); LYMPH % 34.6 % (8-40); MCH 32.5 pg (25.7-33.7); MCHC 35.2 g/dl (32.0-36.0); MEAN CELL VOLUME 92.4 fl (80-96); MEAN PLT VOLUME 7.4 fl (7.5-11.1); MONO % 5.7 % (3.8-10.2); NEUT % 56.6 % (42.8-82.8); PLATELET COUNT 190 10^3/uL (134-434); RBC 3.97 M/mm3 (3.60-5.2); RDW 17.2 % (11.6-15.6); WHITE BLOOD COUNT 7.3 K/mm3 (4.0-10.0)
[2023-08-06] MEDS: INSULIN ASPART SLIDING SCALE (NOVOLOG) 1 VIAL SQ SCH ×5 (09:30→22:19)
[2023-08-06] MEDS ORDERED: INSULIN (NOVOLOG) ASPART 100 UNITS/ML 10ML VIAL ONE ×3 (09:32→19:00)
[2023-08-06] MEDS ORDERED: QUEtiapine FUMARATE 25 MG TABLET PO SCH (10:00)
[2023-08-06] MEDS: busPIRone HCL 10 MG TABLET (FP) PO SCH ×2 (11:25→22:14)
[2023-08-06] MEDS: SACUBITRIL/VALSARTAN 24 MG-26 MG TABLET PO SCH ×2 (11:25→22:14)
[2023-08-06] MEDS: CARVEDILOL 12.5 MG TABLET (FP) PO SCH ×2 (11:25→22:14)
[2023-08-06] MEDS: ENOXAPARIN NA (PORCINE) 40 MG/0.4 ML DISP.SYRIN SQ SCH (11:32)
[2023-08-06] MEDS: DULoxetine HCL 30 MG CAPSULE.DR PO SCH ×2 (11:32→22:14)
[2023-08-06] MEDS: POTASSIUM CHLORIDE TABS 20 MEQ TABLET.ER (FP) PO SCH (11:32)
[2023-08-06] MEDS: BUDESONIDE/FORMETEROL FUMARATE 160/4.5 mcg INHALER IH SCH ×2 (11:32→22:14)
[2023-08-06] MEDS: QUEtiapine FUMARATE 25 MG TABLET PO SCH ×2 (11:32→22:14)
[2023-08-06] MEDS ORDERED: SODIUM CHLORIDE 500 ML IV SCH (14:15)
[2023-08-06 15:04] LABS: COCAINE, UR NEGATIVE (NEGATIVE); METHADONE, UR NEGATIVE (NEGATIVE); PHENCYCLIDINE,URINE NEGATIVE (NEGATIVE); URINE AMPHETAMINES NEGATIVE (NEGATIVE); URINE BARBITURATES NEGATIVE (NEGATIVE); URINE BENZODIAZEPINES NEGATIVE (NEGATIVE)
[2023-08-06 15:11] LABS: OPIATES, URI POSITIVE (NEGATIVE)
[2023-08-06] MEDS ORDERED: traMADol HCL 50 MG TABLET ONE (16:09)
[2023-08-06] MEDS: traMADol HCL 50 MG TABLET PO PRN (16:25)
[2023-08-06] MEDS ORDERED: KETOROLAC TROMETHAMINE 15 MG/ML VIAL IVPUSH ONE (21:55)
[2023-08-06] MEDS ORDERED: KETOROLAC TROMETHAMINE 10 MG TABLET PO ONE (21:55)
[2023-08-06] MEDS ORDERED: ZOLPIDEM TARTRATE 5 MG TABLET PO PRN (22:00)
[2023-08-06] MEDS ORDERED: busPIRone HCL 5 MG TABLET ONE (22:04)
[2023-08-06] MEDS ORDERED: CARVEDILOL 12.5 MG TABLET (FP) ONE (22:04)
[2023-08-06] MEDS ORDERED: SACUBITRIL/VALSARTAN 24 MG-26 MG TABLET ONE (22:04)
[2023-08-06] MEDS ORDERED: KETOROLAC TROMETHAMINE 15 MG/ML VIAL ONE (22:05)
[2023-08-06] MEDS ORDERED: QUEtiapine FUMARATE 25 MG TABLET ONE (22:05)
[2023-08-06] MEDS ORDERED: DULoxetine HCL 30 MG CAPSULE.DR PO ONE (22:05)
[2023-08-06] MEDS ORDERED: ZOLPIDEM TARTRATE 5 MG TABLET ONE (22:17)
[2023-08-07] MEDS ORDERED: GABAPENTIN 300 MG CAPSULE ONE ×2 (06:05→21:05)
[2023-08-07] MEDS: GABAPENTIN 300 MG CAPSULE PO SCH ×3 (06:12→21:22)
[2023-08-07] MEDS: INSULIN ASPART SLIDING SCALE (NOVOLOG) 1 VIAL SQ SCH ×4 (06:12→21:14)
[2023-08-07] MEDS ORDERED: traMADol HCL 50 MG TABLET ONE (06:13)
[2023-08-07] MEDS: traMADol HCL 50 MG TABLET PO PRN (06:16)
[2023-08-07] MEDS: busPIRone HCL 10 MG TABLET (FP) PO SCH ×2 (10:29→21:22)
[2023-08-07] MEDS: ENOXAPARIN NA (PORCINE) 40 MG/0.4 ML DISP.SYRIN SQ SCH (10:30)
[2023-08-07] MEDS: SACUBITRIL/VALSARTAN 24 MG-26 MG TABLET PO SCH ×2 (10:30→21:22)
[2023-08-07] MEDS: CARVEDILOL 12.5 MG TABLET (FP) PO SCH ×2 (10:30→21:22)
[2023-08-07] MEDS: ASPIRIN COATED 81 MG TABLET.EC PO SCH (10:30)
[2023-08-07] MEDS: POTASSIUM CHLORIDE TABS 20 MEQ TABLET.ER (FP) PO SCH (10:30)
[2023-08-07] MEDS: DULoxetine HCL 30 MG CAPSULE.DR PO SCH ×2 (10:30→21:22)
[2023-08-07] MEDS: BUDESONIDE/FORMETEROL FUMARATE 160/4.5 mcg INHALER IH SCH ×2 (10:31→21:23)
[2023-08-07] MEDS: QUEtiapine FUMARATE 25 MG TABLET PO SCH ×2 (10:31→21:23)
[2023-08-07 13:23] LABS: BLOOD UREA NITROGEN 16.3 mg/dL (7-18); CALCIUM 8.6 mg/dL (8.5-10.1); MAGNESIUM 2.1 mg/dL (1.8-2.4)
[2023-08-07 13:26] LABS: BILIRUBIN,DIRECT 0.3 mg/dL (0.0-0.2); CREATININE 0.8 mg/dL (0.55-1.3); PHOSPHOROUS 3.7 mg/dL (2.5-4.9)
[2023-08-07 13:28] LABS: BILIRUBIN,TOTAL 1.4 mg/dL (0.2-1); TOT PROT 7.1 g/dl (6.4-8.2)
[2023-08-07 13:37] LABS: BASO % 0.7 % (0-2.0); HEMATOCRIT 33.2 % (32.4-45.2); HEMOGLOBIN 11.7 GM/dL (10.7-15.3); LYMPH % 29.3 % (8-40); MCH 32.8 pg (25.7-33.7); MCHC 35.3 g/dl (32.0-36.0); MEAN PLT VOLUME 7.1 fl (7.5-11.1); MONO % 6.1 % (3.8-10.2); NEUT % 61.9 % (42.8-82.8); PLATELET COUNT 156 10^3/uL (134-434); RBC 3.57 M/mm3 (3.60-5.2); RDW 16.9 % (11.6-15.6); WHITE BLOOD COUNT 5.5 K/mm3 (4.0-10.0)
[2023-08-07] MEDS ORDERED: LORazepam 1 MG TABLET ONE (13:48)
[2023-08-07] MEDS: LORazepam 1 MG TABLET PO PRN (13:50)
[2023-08-07] MEDS ORDERED: SACUBITRIL/VALSARTAN 24 MG-26 MG TABLET ONE (21:04)
[2023-08-07] MEDS ORDERED: busPIRone HCL 5 MG TABLET ONE (21:04)
[2023-08-07] MEDS ORDERED: CARVEDILOL 12.5 MG TABLET (FP) ONE (21:04)
[2023-08-07] MEDS ORDERED: DULoxetine HCL 30 MG CAPSULE.DR PO ONE (21:05)
[2023-08-07] MEDS ORDERED: QUEtiapine FUMARATE 25 MG TABLET ONE (21:05)
[2023-08-07] MEDS ORDERED: ZOLPIDEM TARTRATE 5 MG TABLET ONE (21:24)
[2023-08-08] MEDS ORDERED: ACETAMINOPHEN 325 MG TABLET (FP) ONE (00:37)
[2023-08-08] MEDS ORDERED: LORazepam 1 MG TABLET ONE (00:37)
[2023-08-08] MEDS ORDERED: GABAPENTIN 300 MG CAPSULE ONE (05:08)
[2023-08-08] MEDS: GABAPENTIN 300 MG CAPSULE PO SCH ×3 (05:13→21:47)
[2023-08-08] MEDS ORDERED: morphine SULFATE 4 MG/ML VIAL ONE (05:22)
[2023-08-08] MEDS: INSULIN ASPART SLIDING SCALE (NOVOLOG) 1 VIAL SQ SCH ×4 (08:02→21:54)
[2023-08-08] MEDS: BUDESONIDE/FORMETEROL FUMARATE 160/4.5 mcg INHALER IH SCH ×2 (10:30→21:52)
[2023-08-08] MEDS: busPIRone HCL 10 MG TABLET (FP) PO SCH ×2 (11:22→21:46)
[2023-08-08] MEDS: POTASSIUM CHLORIDE TABS 20 MEQ TABLET.ER (FP) PO SCH (11:22)
[2023-08-08] MEDS: CARVEDILOL 12.5 MG TABLET (FP) PO SCH ×2 (11:22→21:47)
[2023-08-08] MEDS: QUEtiapine FUMARATE 25 MG TABLET PO SCH ×2 (11:22→21:48)
[2023-08-08] MEDS: ASPIRIN COATED 81 MG TABLET.EC PO SCH (11:22)
[2023-08-08] MEDS: SACUBITRIL/VALSARTAN 24 MG-26 MG TABLET PO SCH ×2 (11:22→21:46)
[2023-08-08] MEDS: ENOXAPARIN NA (PORCINE) 40 MG/0.4 ML DISP.SYRIN SQ SCH (11:23)
[2023-08-08] MEDS: DULoxetine HCL 30 MG CAPSULE.DR PO SCH ×2 (11:23→21:46)
[2023-08-08 11:54] LABS: POTASSIUM 3.8 mmol/L (3.5-5.1)
[2023-08-08 11:56] LABS: ALBUMIN 3.7 g/dl (3.4-5.0); BLOOD UREA NITROGEN 14.2 mg/dL (7-18); CALCIUM 8.9 mg/dL (8.5-10.1)
[2023-08-08 11:59] LABS: BILIRUBIN,DIRECT 0.2 mg/dL (0.0-0.2); CREATININE 0.8 mg/dL (0.55-1.3)
[2023-08-08 12:01] LABS: BILIRUBIN,TOTAL 0.7 mg/dL (0.2-1); TOT PROT 7.1 g/dl (6.4-8.2)
[2023-08-08] MEDS ORDERED: SODIUM CHLORIDE 1,000 ML IV SCH (15:00)
[2023-08-08 15:05] VITALS: RESP 18
[2023-08-08 15:39] VITALS: BMI 25.4
[2023-08-08] MEDS ORDERED: LORazepam 1 MG TABLET PO PRN (19:48)
[2023-08-08] MEDS ORDERED: ACETAMINOPHEN 325 MG TABLET (FP) PO PRN (19:48)
[2023-08-08] MEDS: ZOLPIDEM TARTRATE 5 MG TABLET PO PRN (21:52)
[2023-08-09] MEDS: GABAPENTIN 300 MG CAPSULE PO SCH ×3 (06:05→22:13)
[2023-08-09] MEDS: INSULIN ASPART SLIDING SCALE (NOVOLOG) 1 VIAL SQ SCH ×4 (06:08→22:17)
[2023-08-09 10:35] LABS: BASO % 0.6 % (0-2.0); EOS % 2.7 % (0-4.5); HEMATOCRIT 34.8 % (32.4-45.2); LYMPH % 31.3 % (8-40); MCH 32.3 pg (25.7-33.7); MCHC 34.4 g/dl (32.0-36.0); MEAN CELL VOLUME 93.9 fl (80-96); MEAN PLT VOLUME 7.4 fl (7.5-11.1); MONO % 6.7 % (3.8-10.2); NEUT % 58.7 % (42.8-82.8); PLATELET COUNT 178 10^3/uL (134-434); RBC 3.71 M/mm3 (3.60-5.2); RDW 16.4 % (11.6-15.6); WHITE BLOOD COUNT 5.2 K/mm3 (4.0-10.0)
[2023-08-09] MEDS: ENOXAPARIN NA (PORCINE) 40 MG/0.4 ML DISP.SYRIN SQ SCH (10:41)
[2023-08-09] MEDS: ASPIRIN COATED 81 MG TABLET.EC PO SCH (10:41)
[2023-08-09] MEDS: busPIRone HCL 10 MG TABLET (FP) PO SCH ×2 (10:41→22:13)
[2023-08-09] MEDS: DULoxetine HCL 30 MG CAPSULE.DR PO SCH ×2 (10:41→22:13)
[2023-08-09] MEDS: POTASSIUM CHLORIDE TABS 20 MEQ TABLET.ER (FP) PO SCH (10:41)
[2023-08-09] MEDS: QUEtiapine FUMARATE 25 MG TABLET PO SCH ×2 (10:42→22:13)
[2023-08-09] MEDS: SACUBITRIL/VALSARTAN 24 MG-26 MG TABLET PO SCH ×2 (10:42→22:13)
[2023-08-09] MEDS: CARVEDILOL 12.5 MG TABLET (FP) PO SCH ×2 (10:42→22:13)
[2023-08-09] MEDS: BUDESONIDE/FORMETEROL FUMARATE 160/4.5 mcg INHALER IH SCH ×2 (10:47→22:19)
[2023-08-09 10:56] LABS: CALCIUM 9.1 mg/dL (8.5-10.1)
[2023-08-09 10:57] LABS: ALBUMIN 3.6 g/dl (3.4-5.0); BLOOD UREA NITROGEN 13.5 mg/dL (7-18)
[2023-08-09 11:00] LABS: CREATININE 0.7 mg/dL (0.55-1.3)
[2023-08-09 11:01] LABS: TOT PROT 6.4 g/dl (6.4-8.2)
[2023-08-09] MEDS ORDERED: DEXTROSE 50%-WATER - 25 GM/50 ML VIAL IVPUSH PRN (16:13)
[2023-08-09] MEDS: INSULIN (NOVOLOG) ASPART 100 UNITS/ML 10ML VIAL SQ SCH (16:25)
[2023-08-09] MEDS ORDERED: INSULIN ASPART SLIDING SCALE (NOVOLOG) 1 VIAL SQ ONE (17:00)
[2023-08-09] MEDS: ZOLPIDEM TARTRATE 5 MG TABLET PO PRN (22:14)
[2023-08-09] MEDS: INSULIN (LEVEMIR) 100 UNITS/ML UNITS SQ SCH (22:17)
[2023-08-10] MEDS: GABAPENTIN 300 MG CAPSULE PO SCH ×3 (06:29→22:26)
[2023-08-10] MEDS: INSULIN (NOVOLOG) ASPART 100 UNITS/ML 10ML VIAL SQ SCH ×3 (06:31→16:47)
[2023-08-10] MEDS: INSULIN ASPART SLIDING SCALE (NOVOLOG) 1 VIAL SQ SCH ×4 (06:31→22:31)
[2023-08-10] MEDS: INSULIN (LEVEMIR) 100 UNITS/ML UNITS SQ SCH ×2 (06:32→22:32)
[2023-08-10] MEDS: busPIRone HCL 10 MG TABLET (FP) PO SCH ×2 (10:11→22:26)
[2023-08-10] MEDS: QUEtiapine FUMARATE 25 MG TABLET PO SCH ×2 (10:11→22:26)
[2023-08-10] MEDS: DULoxetine HCL 30 MG CAPSULE.DR PO SCH ×2 (10:11→22:26)
[2023-08-10] MEDS: POTASSIUM CHLORIDE TABS 20 MEQ TABLET.ER (FP) PO SCH (10:12)
[2023-08-10] MEDS: ASPIRIN COATED 81 MG TABLET.EC PO SCH (10:13)
[2023-08-10] MEDS: ENOXAPARIN NA (PORCINE) 40 MG/0.4 ML DISP.SYRIN SQ SCH (10:13)
[2023-08-10] MEDS: SACUBITRIL/VALSARTAN 24 MG-26 MG TABLET PO SCH ×2 (10:13→22:26)
[2023-08-10] MEDS: CARVEDILOL 12.5 MG TABLET (FP) PO SCH ×2 (10:13→22:26)
[2023-08-10] MEDS: BUDESONIDE/FORMETEROL FUMARATE 160/4.5 mcg INHALER IH SCH ×2 (10:14→22:33)
[2023-08-10 10:37] LABS: HEMATOCRIT 41.3 % (32.4-45.2); HEMOGLOBIN 14.6 GM/dL (10.7-15.3); MCH 32.9 pg (25.7-33.7); MCHC 35.3 g/dl (32.0-36.0); MEAN CELL VOLUME 93.2 fl (80-96); MEAN PLT VOLUME 8.1 fl (7.5-11.1); PLATELET COUNT 224 10^3/uL (134-434); RBC 4.43 M/mm3 (3.60-5.2); RDW 16.5 % (11.6-15.6); WHITE BLOOD COUNT 8.5 K/mm3 (4.0-10.0)
[2023-08-10 10:53] LABS: POTASSIUM 4.2 mmol/L (3.5-5.1)
[2023-08-10 10:57] LABS: BLOOD UREA NITROGEN 23.1 mg/dL (7-18)
[2023-08-10 10:58] LABS: ALBUMIN 4.2 g/dl (3.4-5.0)
[2023-08-10 11:00] LABS: BILIRUBIN,DIRECT 0.2 mg/dL (0.0-0.2)
[2023-08-10 11:01] LABS: CREATININE 0.7 mg/dL (0.55-1.3)
[2023-08-10 11:03] LABS: BILIRUBIN,TOTAL 0.9 mg/dL (0.2-1); TOT PROT 7.9 g/dl (6.4-8.2)
[2023-08-10] MEDS: POLYETHYLENE GLYCOL (HEALTHYLAX) 3350 17 GM PACKET PO SCH ×2 (12:09→22:26)
[2023-08-10] MEDS ORDERED: ACETAMINOPHEN 1000 MG/100 ML BAG IVPB ONE (15:38)
[2023-08-10] MEDS ORDERED: ACETAMINOPHEN 500 MG TABLET (FP) PO ONE (15:47)
[2023-08-10] MEDS ORDERED: SENNOSIDES 8.6MG TABLET (FP) PO SCH (22:00)
[2023-08-10] MEDS: ZOLPIDEM TARTRATE 5 MG TABLET PO PRN (22:26)
[2023-08-11] MEDS: GABAPENTIN 300 MG CAPSULE PO SCH (06:07)
[2023-08-11] MEDS: INSULIN ASPART SLIDING SCALE (NOVOLOG) 1 VIAL SQ SCH (06:08)
[2023-08-11] MEDS: INSULIN (NOVOLOG) ASPART 100 UNITS/ML 10ML VIAL SQ SCH (06:08)
[2023-08-11] MEDS: INSULIN (LEVEMIR) 100 UNITS/ML UNITS SQ SCH (06:09)
[2023-08-11 09:22] LABS: BASO % 0.5 % (0-2.0); HEMATOCRIT 41.4 % (32.4-45.2); HEMOGLOBIN 14.8 GM/dL (10.7-15.3); MCHC 35.7 g/dl (32.0-36.0); MEAN CELL VOLUME 92.5 fl (80-96); MEAN PLT VOLUME 7.9 fl (7.5-11.1); MONO % 7.4 % (3.8-10.2); NEUT % 57.1 % (42.8-82.8); PLATELET COUNT 272 10^3/uL (134-434); RBC 4.48 M/mm3 (3.60-5.2); RDW 16.3 % (11.6-15.6); WHITE BLOOD COUNT 9.1 K/mm3 (4.0-10.0)
[2023-08-11 09:39] LABS: POTASSIUM 4.3 mmol/L (3.5-5.1)
[2023-08-11 09:57] LABS: ALBUMIN 4.6 g/dl (3.4-5.0)
[2023-08-11 09:58] LABS: BLOOD UREA NITROGEN 24.1 mg/dL (7-18)
[2023-08-11 09:59] LABS: CREATININE 0.7 mg/dL (0.55-1.3)
[2023-08-11] MEDS ORDERED: BISACODYL 10 MG SUPP.RECT PR PRN (10:00)
[2023-08-11] MEDS ORDERED: PANTOPRAZOLE 20 MG TABLET PO SCH (10:00)
[2023-08-11 10:01] LABS: BILIRUBIN,TOTAL 1.2 mg/dL (0.2-1)
[2023-08-11 10:02] LABS: TOT PROT 8.3 g/dl (6.4-8.2)
[2023-08-11] MEDS: ENOXAPARIN NA (PORCINE) 40 MG/0.4 ML DISP.SYRIN SQ SCH (10:07)
[2023-08-11] MEDS: ASPIRIN COATED 81 MG TABLET.EC PO SCH (10:08)
[2023-08-11] MEDS: POLYETHYLENE GLYCOL (HEALTHYLAX) 3350 17 GM PACKET PO SCH (10:08)
[2023-08-11] MEDS: busPIRone HCL 10 MG TABLET (FP) PO SCH (10:08)
[2023-08-11] MEDS: CARVEDILOL 12.5 MG TABLET (FP) PO SCH (10:09)
[2023-08-11] MEDS: QUEtiapine FUMARATE 25 MG TABLET PO SCH (10:09)
[2023-08-11] MEDS: SACUBITRIL/VALSARTAN 24 MG-26 MG TABLET PO SCH (10:09)
[2023-08-11] MEDS: DULoxetine HCL 30 MG CAPSULE.DR PO SCH (10:10)
[2023-08-11] MEDS: POTASSIUM CHLORIDE TABS 20 MEQ TABLET.ER (FP) PO SCH (10:10)
[2023-08-11] MEDS: BUDESONIDE/FORMETEROL FUMARATE 160/4.5 mcg INHALER IH SCH (10:11)
[2023-08-11 10:25] VITALS: BP 110/70; PULSE 58; TEMP 98
[2023-08-11 18:12] LABS: GLIADIN ANTIBODY IGA 21 units (0-19); GLIADIN ANTIBODY IGG 3 units (0-19); TRANSGLUTAMINASE IGG < 2 U/mL (0-5)
== END 2023-08-11 11:02 | disposition home or self-care (01) ==
LOC: JER 17:06 → INTOOBSV 20:57 → UNDOADMOB 20:57 → JERBED 20:57 → J6S 08-08 10:44
PROVIDERS: ADMIT Internal Medicine; ATTEND Internal Medicine
PROC: 3E033NZ Introduction of Analgesics, Hypnotics, Sedatives into Peripheral Vein, Percutaneous Approach (ICD-10-PCS; principal; 2023-08-07)
PROC: 3E023GC Introduction of Other Therapeutic Substance into Muscle, Percutaneous Approach (ICD-10-PCS; 2023-08-07)
PROC: 3E033GC Introduction of Other Therapeutic Substance into Peripheral Vein, Percutaneous Approach (ICD-10-PCS; 2023-08-07)
PROC: 3E013VG Introduction of Insulin into Subcutaneous Tissue, Percutaneous Approach (ICD-10-PCS; 2023-08-07)
PROC: 3E0333Z Introduction of Anti-inflammatory into Peripheral Vein, Percutaneous Approach (ICD-10-PCS; 2023-08-07)
PROC: 3E0337Z Introduction of Electrolytic and Water Balance Substance into Peripheral Vein, Percutaneous Approach (ICD-10-PCS; 2023-08-07)
DX: K52.9 Noninfective gastroenteritis and colitis, unspecified (principal); G93.41 Metabolic encephalopathy; R07.89 Other chest pain; I25.10 Atherosclerotic heart disease of native coronary artery without angina pectoris; I11.0 Hypertensive heart disease with heart failure; E78.5 Hyperlipidemia, unspecified; J44.9 Chronic obstructive pulmonary disease, unspecified; E11.9 Type 2 diabetes mellitus without complications; Z29.89 Encounter for other specified prophylactic measures; K90.0 Celiac disease; M79.7 Fibromyalgia; R00.2 Palpitations; Z95.5 Presence of coronary angioplasty implant and graft; F32.A Depression, unspecified; G47.30 Sleep apnea, unspecified; I25.2 Old myocardial infarction; Z86.14 Personal history of Methicillin resistant Staphylococcus aureus infection; Z99.81 Dependence on supplemental oxygen
CPT/HCPCS: 0241U-QW; 36415; 71045-TC-FY; 74018-TC-FY; 74177-TC; 80048; 80053; 80061; 80076; 80307; 81003; 82010; 82248; 82533; 82607; 82746; 82784; 82962; 83010; 83036; 83516; 83735; 83880; 84100; 84443; 84484; 85025; 85027; 85610; 85730; 86140; 86850; 86900; 86901; 87077; 87086; 93005; 93010; 96361; 96365; 96366; 96372; 96375; 96376; 99285-25; G0378; J0131; Q9967